=== PATIENT | female | born 1965 | race Caucasian/White ===

== ENCOUNTER 2020-03-14 19:13 | Emergency (ER) | payer BC, SELFPAY ==
--- NOTE | ~2020-03-14 | CT_ITS ---
EXAMINATION: CT abdomen pelvis w con EXAM DATE: 03/14/2020 21:02 INDICATION: Abdominal pain, hematuria, mesh infection. Kidney stones. Left flank pain. TECHNIQUE: Spiral CT of the abdomen and pelvis was performed following intravenous injection of 100 m L Omnipaque 350. Axial, coronal and sagittal images were reviewed. The dose-length product (DLP) fo r this examination was 231.85 mGy-cm. The exposure was tailored according to patient size (auto mA e xposure control), and iterative reconstruction (ASIR) was used as additional dose reduction technique . There is no prior study for comparison. FINDINGS: Anterior abdominal wall mesh without adjacent fluid collection. There is nonspecific mild periportal edema. Pancreas, adrenal glands, spleen are unremarkable. Gallbladder is unremarkable. N o biliary obstruction. Portal and splenic veins are patent. Kidneys enhance symmetrically. There i s no hydronephrosis. There is bilateral nephrolithiasis, largest on the left measuring 8 mm. No urete ral stones. The uterus is not identified and has likely been surgically resected. The bladder is un remarkable. There is no retroperitoneal or pelvic lymphadenopathy. There is moderate scattered art eriosclerotic disease. Possible appendectomy. Partial colonic resection. The stomach and small bowel are unremarkable. Ther e is expected amount of colonic stool. No free intraperitoneal gas. The heart is normal in size. There are no pericardial or pleural effusions. Bibasilar subsegmental atelectasis. There are no os teoblastic or osteolytic lesions identified. IMPRESSION: 1. No acute intra-abdominal findings. 2. Mild nonspecific periportal edema. 3. Bilateral nephrolithiasis. Reviewed, dictated and finalized at location A.
[2020-03-14 19:24] VITALS: BP 114/90; PULSE 99; RESP 14; TEMP 36.3; O2SAT 99
--- NOTE | 2020-03-14 19:56 | ED.ABDPAIN ---
HPI - Abdominal Pain General Chief Complaint: Urogenital-Female Stated Complaint: hematuria/flank pain Time Seen by Provider: 03/14/20 19:45 History of Present Illness HPI narrative: Patient presents with left flank pain since last night. She has a history of kidney stones and last passed a stone a month ago. She does not have a urologist. She said the pain is 10 out of 10, and that she vomited this evening. She still has the nausea. 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 She shows some granulation tissue with scant discharge on the bandage. She says that is also 10 out of 10 pain. She tells us that her doctor says that scar tissue, she says but if you rub it it bleeds. She does not smoke cigarettes, drink alcohol, but she does do medical marijuana. She is trying to get off her nerve medication. She is allergic to several antidepressants. MD elicited complaint: abdominal pain and flank pain Pertinent past history: kidney stones and other (Abdominal wound graft) Onset (ago): day(s) Pain Consistency: constant Location: L flank Severity: severe Pain scale (0-10): 10 Migration to: no migration Exacerbating factors: nothing Relieving factors: nothing Context: confirms history of similar episodes Associated symptoms: nausea and vomiting Related Data Home Medications Medication Instructions Recorded Confirmed B Complex-Vitamin B12 03/14/20 Calcium 500 03/14/20 clonazepam BID 03/14/20 cyclobenzaprine mg 03/14/20 folic acid 03/14/20 trazodone 150 mg PO HS 03/14/20 03/14/20 Allergies Allergy/AdvReac Type Severity Reaction Status Date / Time bupropion [From Wellbutrin] AdvReac Other Verified 03/14/20 20:17 codeine AdvReac Anaphylaxis Verified 03/14/20 20:17 duloxetine [From Cymbalta] AdvReac Other Verified 03/14/20 20:17 Review of Systems Review of Systems: Narrative: CONSTITUTIONAL: Denies fever, chills, or sweats. EYES: Denies visual changes, redness, or discharge. ENT: Denies rhinorrhea, congestion, sore throat, or otalgia. CARDIOVASCULAR: Denies chest pain, palpitations, or edema. RESPIRATORY: Denies cough or dyspnea. GASTROINTESTINAL: She has abdominal pain, nausea, vomiting, but not diarrhea. GENITOURINARY: Denies dysuria or hematuria. SKIN: Denies rash or itching. MUSCULOSKELETAL: Denies back pain, joint pain, or myalgia. NEUROLOGIC: Denies headache, numbness, or weakness. PSYCHIATRIC: She has anxiety or depression. All systems reviewed & are unremarkable except as noted in HPI and below PMFSH Past Medical History Medical History Flank pain History of kidney stones Surgical History Surgical History (Updated 03/14/20 @ 20:00 by Libby Gutierrez MD) History of abdominal surgery Social History Social History (Updated 03/14/20 @ 20:00 by Libby Gutierrez MD) Alcohol intake: never Substance use: current Substance use type: marijuana Exam Narrative: Exam Narrative: GENERAL: Well-appearing, well-nourished, and in no acute distress. Isiah looking. HEAD: Normocephalic, atraumatic. EYES: PERRLA and EOMI. ENT: Nares clear, no rhinorrhea or epistaxis. Mucous membranes moist. NECK: Supple. CHEST: Clear to auscultation. No respiratory distress. HEART: Regular rate and rhythm. No murmur heard. Normal peripheral pulses. ABDOMEN: Soft, nontender, nondistended, normal active bowel sounds. Granulation tissue in the depths of her abdominal incision. No drainage or bleeding. EXTREMITIES: Normal range of motion. No edema. SKIN: Warm, dry, no rash. NEURO: No focal deficits. Alert and oriented x3. PSYCH: Normal mood and affect. Course Reevaluation(s) Reevaluation #1: Went into the room to talk to the patient [id number]. I told her that the CAT scan and the labs did not indicate her source of pain. I will refer her to a urologist for her kidney stones. 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 And she has a p
[2020-03-14] MEDS: SODIUM CHLORIDE 0.9% IV 1,000 ML 999 ML IV CONT (20:21)
[2020-03-14] MEDS: MORPHINE SULFATE 2 MG/ML INJ IV PUSH (20:33)
[2020-03-14] MEDS: ONDANSETRON INJ 4 MG/2 ML VIAL IV PUSH (20:33)
[2020-03-14 20:45] LABS: Lipase 31 U/L (23-300)
[2020-03-14 21:05] LABS: Estimated CRCL calculation 60 ml/min; Estimated Glomerular Filt Rate > 60
[2020-03-14 21:52] VITALS: BP 128/79; PULSE 99; RESP 16; TEMP 36.4; O2SAT 100
== END 2020-03-14 21:53 | disposition home or self-care (01) ==
PROVIDERS: Emergency Provider Emergency Medicine; PCP Family Medicine
DX: R10.9 Unspecified abdominal pain (principal); Z87.442 Personal history of urinary calculi; N20.0 Calculus of kidney
CPT/HCPCS: 36415; 74177; 83690; 96361; 96374; 96375; 99284; J2270; J2405; J7030; Q9967

== ENCOUNTER 2020-04-04 14:17 | Outpatient (CLI) | payer BC, SELFPAY ==
--- NOTE | ~2020-04-04 | CT_ITS ---
EXAMINATION: CT abdomen pelvis wo/w con DATE: 04/04/2020 15:13 INDICATION: Right ureteral stone. TECHNIQUE: Computed tomography (CT) of the abdomen and pelvis was performed without and with 130 cc O mnipaque 350 intravenous contrast. The dose-length product was 462.02 mGy-cm. Automated exposure cont rol and iterative reconstruction technique were employed. COMPARISON: CT dated 03/14/2020 FINDINGS: Lung bases are unremarkable. No significant pleural or pericardial effusion. Heart size is normal. There are multiple nonobstructing bilateral renal stones. No ureteral stones or significant hydroneph rosis. The uterus is surgically absent. There are surgical anastomotic changes of the sigmoid colon. No evidence for bowel obstruction. There is atherosclerosis of the aorta. Bladder is unremarkable. The liver, spleen, pancreas, adrenal glands are unremarkable. Gallbladder is contracted. No lymphaden opathy. There is suggestion of previous partial small bowel resection. No free air or free fluid. No osteolytic or osteoblastic lesions. IMPRESSION: 1. No acute abdominal abnormality. 2: Nonobstructing bilateral nephrolithiasis. Reviewed, dictated and finalized at location A.
== END 2020-04-04 14:18 | disposition home or self-care (01) ==
PROVIDERS: PCP Family Medicine; Visit Provider Urology
DX: N20.1 Calculus of ureter (principal); R31.0 Gross hematuria; N20.0 Calculus of kidney
CPT/HCPCS: 74178; Q9967

== ENCOUNTER → 2020-04-04 14:18 | Outpatient (CLI) | payer BC, SELFPAY ==
--- NOTE | ~2020-04-04 | XR_ITS ---
XR abdomen/kub 1V 04/04/2020 12:52 Indication: Right ureteral stone Procedure: KUB Comparison: CT dated 04/04/2020 Findings: There are multiple left renal stones, largest in the upper pole of the left kidney measurin g 11 mm. Bowel pattern nonobstructive. There are surgical changes in the left mid abdomen and pelvis. There are multiple calcifications in the left abdomen and pelvis which are shown to reside outside t he urinary tract on CT examination. No acute osseous abnormality. Impression: 1: Left nephrolithiasis. Reviewed, dictated and finalized at location A. Impression: 1: Left nephrolithiasis.
== END ==
PROVIDERS: PCP Family Medicine; Visit Provider Urology
DX: R31.0 Gross hematuria (principal); N20.0 Calculus of kidney
CPT/HCPCS: 74018

== ENCOUNTER 2020-06-10 14:10 | Outpatient (CLI) | payer BC, SELFPAY ==
[2020-06-10 15:21] LABS: Prothrombin Time 13.3 Seconds (11.1-14.7)
[2020-06-10 15:22] LABS: Partial Thromboplastin Time 27.4 SECONDS (22.3-36.8)
== END 2020-06-10 14:11 | disposition home or self-care (01) ==
LOC: ANHSURGERY 14:13
PROVIDERS: PCP Family Medicine; Visit Provider Urology
DX: Z87.442 Personal history of urinary calculi (principal); Z01.818 Encounter for other preprocedural examination
CPT/HCPCS: 36415; 85610; 85730

== ENCOUNTER 2020-06-15 01:24 | Outpatient (CLI) | payer BC, SELFPAY ==
[2020-06-15 22:35] LABS: SARS-CoV-2 RNA PCR Negative
== END 2020-06-15 01:25 | disposition home or self-care (01) ==
LOC: ANHCOVIDDT 01:25
PROVIDERS: PCP Family Medicine; Visit Provider Urology
DX: Z01.812 Encounter for preprocedural laboratory examination (principal); Z11.59 Encounter for screening for other viral diseases
CPT/HCPCS: 87635; C9803; U0003

== ENCOUNTER 2020-06-17 01:46 | Day surgery (SDC) | payer BC, SELFPAY ==
[2020-06-09 15:31] VITALS: BMI 19.8
--- NOTE | 2020-06-16 10:44 | WPDANESEPPF ---
Anes - Initial Pre Proc Eval Procedure: Operation Date: 06/17/20 08:30 Proposed Procedures p Left Renal Extracorporeal Shock Wave Lithotripsy - Corey Archibald MD s Cystoscopy Possible Left Stent - Corey Archibald MD Date/Time: 06/16/20 10:44 Surgeon: Corey Archibald MD Pre Op Diagnosis: Left Renal Stone Patient Data Age: 54 Gender: F Height: 1.65 m Weight: 53.98 kg Allergies Allergy/AdvReac Type Severity Reaction Status Date / Time adhesive tape Allergy Rash Verified 06/09/20 15:32 bupropion [From Wellbutrin] AdvReac ALTERED Verified 06/09/20 15:32 MENTAL STATUS codeine AdvReac Itching Verified 06/09/20 15:32 duloxetine [From Cymbalta] AdvReac ALTERED Verified 06/09/20 15:32 MENTAL STATUS Home Medications Medication Instructions Recorded Confirmed Type clonazepam 1 mg PO BID 03/14/20 06/09/20 History cyclobenzaprine 10 mg PO BID 03/14/20 06/09/20 History trazodone 150 mg PO HS PRN 03/14/20 06/09/20 History alendronate 70 mg PO WEEKLY 06/09/20 06/09/20 History aspirin 81 mg PO DAILY 06/09/20 06/09/20 History calcium carbonate-vitamin D3 1 tablet PO BID 06/09/20 06/09/20 History [Calcium 600 + D(3)] cyanocobalamin (vitamin B-12) 1,000 mcg PO DAILY 06/09/20 06/09/20 History [Vitamin B-12] dicyclomine 10 mg PO Q8H 06/09/20 06/09/20 History docusate sodium 100 mg PO DAILY 06/09/20 06/09/20 History ergocalciferol (vitamin D2) 1,250 mcg PO WEEKLY 06/09/20 06/09/20 History [Vitamin D2] folic acid 1 mg PO DAILY 06/09/20 06/09/20 History levocetirizine 5 mg PO DAILY 06/09/20 06/09/20 History ubrogepant [Ubrelvy] 100 mg PO DIRECTED PRN 06/09/20 06/09/20 History Patient hx anesthesia problems: none Family hx anesthesia problems: none PMFSH Past Medical History Medical History (Updated 06/16/20 @ 10:45 by Juan Jose Flores MD) Anxiety Endometriosis Flank pain History of kidney stones Osteoporosis Surgical History Surgical History (Updated 03/14/20 @ 20:00 by Libby Gutierrez MD) History of abdominal surgery Social History Social History (Updated 03/14/20 @ 20:00 by Libby Gutierrez MD) Smoking packs per day: 1.5 Smoking cigarettes per day: 30.0 Years smoked: 10 Smoking pack-years: 15.00 Smoking status: Former smoker Tobacco type: cigarettes and e-cigarettes/vaping Additional smoking assessment comments: QUIT CIGARETTES 10 YEARS AGO, QUIT VAPING 3 MONTHS AGO Alcohol intake: never Substance use: current Substance use type: marijuana Last use: DAILY Spiritual care concerns: No Anes - Eval Final PreProcedure Day of Procedure 06/16/20 10:44 Patient weight: normal Heart: regular rate and rhythm Lungs: clear to auscultation and normal air movement Airway: Mallampati scale class II Neurological: alert and oriented Last oral intake: >/= 8 hours ASA classification: II Emergent: no Anesthetic plan: proceed Anesthesia type and monitoring: general LMA and ETT Informed Consent: The patient's anesthetic plan and its attendant risks and benefits were discussed with the patient/family/POA. Questions were solicited and answers provided to the satisfaction of the patient/family/POA.
[2020-06-17] VITALS (10 sets, daily range): BP systolic 124–167; BP diastolic 70–97; PULSE 74–106; RESP 10–20; TEMP 36.2–36.7; O2SAT 100
--- NOTE | ~2020-06-17 | XR_ITS ---
EXAMINATION: XR abdomen/kub 1V INDICATION: Left-sided kidney stone TECHNIQUE: Supine views of the abdomen were obtained on 2 radiographs. COMPARISON: 04/04/2020 FINDINGS: Stones in the left kidney upper pole measure up to 1.4 cm. There are at least four stones i n the left kidney lower pole, the largest of which measures 7 mm. There is a 6 mm stone in the right kidney lower pole. A 3 mm stone projects in the right mid kidney. A calcification projecting in the e xpected location of the left mid ureter is demonstrated to represent an ovarian vein phlebolith on th e comparison CT. Surgical changes are noted in the left mid abdomen and pelvis. Multiple pelvic phleb oliths are noted. The bowel gas pattern is normal. The lung bases are clear. IMPRESSION: 1. Stable bilateral nephrolithiasis. Reviewed, dictated and finalized at location A. MECHANIST
--- NOTE | 2020-06-17 06:31 | WPDHPUPDATE1 ---
History and Physical Update Update Date/Time: 06/17/20 06:31 History and Physical has been reviewed, including an updated exam of the patient. There are NO changes in the patient's condition. Risks, benefits, and alternatives have been discussed and questions answered. Patient agrees to proceed with procedure.
[2020-06-17] MEDS: LACTATED RINGERS 1,000 ML 30 ML IV CONT (07:50)
[2020-06-17] MEDS: SCOPOLAMINE 1.5 MG PATCH TRANSDERM (07:55)
[2020-06-17] MEDS: ceFAZolin 2 GM/D5W 50 ML 2 GM/50 ML BAG IVPB (08:40)
--- NOTE | 2020-06-17 08:55 | PM.PROC ---
Procedure Note - Detailed Date of procedure: 06/17/20 Pre-op diagnosis: Left Renal Stone Post-op diagnosis: same Procedure performed: 1. Cysto., left stent placement. 2. Left ESWL Description of procedure: The patient was brought to the operative suite where she was placed in the frog-legged position on the Dornier lithotripter table. Flexible cystoscopy was undertaken with a 16F flexible cystoscopy. Her urethra and bladder neck were endoscopically normal. The bladder mucosa was normal and there was a single, orthotopic ureteral orifice bilaterally. A 0.035 glidewire was advanced into the left renal pelvis under fluoroscopy. A 4.8F J-J ureteral stent was positioned with the proximal coil in the renal pelvis and the distal coil in the bladder. The patient was then repositioned in the supine position and the focal point of the lithotriptor was placed at a 14mm left upper pole renal calculus. A total of 2500 shocks were delivered at a power setting of 4. There appeared to be good fragmentation of the stone. The patient tolerated the procedure well and was taken to the recovery room in good condition. Anesthesia: GLMA Surgeon: Corey Archibald MD Estimated blood loss (mL): 0 Drains: Yes (4.8F left ureteral stent) Packing: No Pathology: none sent Complications: No immediate complications Condition: stable Disposition: other
[2020-06-17] MEDS: ONDANSETRON INJ 4 MG/2 ML VIAL IV PUSH (10:07)
[2020-06-17] MEDS: fentaNYL CITRATE INJ (*CRX) 100 MCG/2 ML VIAL 25 MCG IV PUSH ×8 (10:08→11:08)
== END 2020-06-17 12:11 | disposition home or self-care (01) ==
PROVIDERS: PCP Family Medicine; Visit Provider Urology
PROC: (CPT 50590; principal; 2020-06-17 08:30)
PROC: (CPT 52352; 2020-06-17 08:30)
DX: N20.0 Calculus of kidney (principal); F41.9 Anxiety disorder, unspecified; M81.0 Age-related osteoporosis without current pathological fracture; Z87.891 Personal history of nicotine dependence; F12.90 Cannabis use, unspecified, uncomplicated
CPT/HCPCS: 52332; 50590; 74018; A9270; C1769; C2617; J0690; J2250; J2405; J3010; J7030; J7120

== ENCOUNTER 2020-06-30 12:31 | Outpatient (CLI) | payer BC, SELFPAY ==
--- NOTE | ~2020-06-30 | XR_ITS ---
EXAMINATION: XR abdomen/kub 1V EXAM DATE: 06/30/2020 12:46 INDICATION: Left ureteral stone. TECHNIQUE: Frontal projection of the upper abdomen, frontal projection lower abdomen/pelvis for inter pretation. Comparison is made to prior examination from 06/17/2020. FINDINGS: There is a left double-J ureteral stent in position. There are stone fragments along the m id to distal aspect of the ureteral stent, indicated. Multiple calyceal stone fragments. Right nephro lithiasis suspected. Several bowel anastomosis sites also noted. No organomegaly. Nonobstructive rosi l gas pattern. There are mild bony degenerative changes. IMPRESSION: 1. Left ureteral and calyceal stone fragments. 2. Right nephrolithiasis. Reviewed, dictated and finalized at location A. TER CARTOGRAPHIC
== END 2020-06-30 12:32 | disposition home or self-care (01) ==
PROVIDERS: PCP Family Medicine; Visit Provider Urology
DX: N20.2 Calculus of kidney with calculus of ureter (principal)
CPT/HCPCS: 74018

== ENCOUNTER 2020-07-11 13:15 | Outpatient (CLI) | payer BC, SELFPAY ==
--- NOTE | ~2020-07-11 | XR_ITS ---
XR abdomen/kub 1V 07/11/2020 13:37 Indication: Left kidney stone Procedure: KUB Comparison: Comparison to multiple prior studies sequentially, with oldest reviewed study dated 04/04. Findings: Bowel gas pattern is nonobstructive. There are multiple bilateral renal stones and left ure teral stones. Left ureteral stent in expected position. There are surgical changes in the abdomen and pelvis. Bowel pattern nonobstructive. No acute osseous abnormality. Impression: 1: Bilateral renal and left ureteral stones. Left internal ureteral stent in expected position. Reviewed, dictated and finalized at location B. CHEMIST Impression: 1: Bilateral renal and left ureteral stones. Left internal ureteral stent in ex pected position.
== END 2020-07-11 13:16 | disposition home or self-care (01) ==
PROVIDERS: PCP Family Medicine; Visit Provider Urology
DX: N20.0 Calculus of kidney (principal); N20.1 Calculus of ureter; Z96.0 Presence of urogenital implants
CPT/HCPCS: 74018

== ENCOUNTER 2020-09-12 23:54 | Emergency (ER) | payer BC, SELFPAY ==
[2020-09-12 23:56] VITALS: BP 121/84; PULSE 68; RESP 14; TEMP 37; O2SAT 98
[2020-09-13] MEDS: METOCLOPRAMIDE HCL INJ 10 MG/2 ML VIAL IV PUSH (00:49)
[2020-09-13] MEDS: diphenhydrAMINE HCl INJ 50 MG/ML VIAL 25 MG IV PUSH (00:49)
[2020-09-13] MEDS: SODIUM CHLORIDE 0.9% IV 1,000 ML 999 ML IV CONT (00:49)
[2020-09-13] MEDS: KETOROLAC 30 MG/ML VIAL (*BKC) IV PUSH (00:50)
[2020-09-13] MEDS: MORPHINE SULFATE (*CRX) 4 MG/ML INJ IV PUSH (02:08)
[2020-09-13 02:09] VITALS: BP 115/84; PULSE 82; RESP 18; O2SAT 100
--- NOTE | 2020-09-13 03:22 | ED.GENADULT ---
HPI - General Adult General Chief complaint: Back Pain/Injury Stated complaint: lower back pain Time Seen by Provider: 09/13/20 00:06 History of Present Illness HPI narrative: Patient is a 54-year-old female who presents ER with low back pain and migraine. Reports migraines been ongoing for couple of days. Is taking home medications without relief. No change in vision or hearing. No fevers or chills or sweats. Does have some mild nausea without vomiting. Patient also developed some low back pain starting earlier today that radiates around into her groin. She also has pain over her right hip and her pain increases with movement of her right hip. No known trauma recently with exception of bumping into a wall about a week ago. [id number] pain medications have not helped her. Patient also reports some numbness going down her right leg. Related Data Home Medications Medication Instructions Recorded Confirmed clonazepam 1 mg PO BID 03/14/20 06/17/20 cyclobenzaprine 10 mg PO BID 03/14/20 06/17/20 trazodone 150 mg PO HS PRN 03/14/20 06/17/20 alendronate 70 mg PO WEEKLY 06/09/20 06/17/20 aspirin 81 mg PO DAILY 06/09/20 06/17/20 calcium carbonate-vitamin D3 1 tablet PO BID 06/09/20 06/17/20 [Calcium 600 + D(3)] cyanocobalamin (vitamin B-12) 1,000 mcg PO DAILY 06/09/20 06/17/20 [Vitamin B-12] dicyclomine 10 mg PO Q8H 06/09/20 06/17/20 docusate sodium 100 mg PO DAILY 06/09/20 06/17/20 ergocalciferol (vitamin D2) 1,250 mcg PO WEEKLY 06/09/20 06/17/20 [Vitamin D2] folic acid 1 mg PO DAILY 06/09/20 06/17/20 levocetirizine 5 mg PO DAILY 06/09/20 06/17/20 ubrogepant [Ubrelvy] 100 mg PO DIRECTED PRN 06/09/20 06/17/20 Allergies Allergy/AdvReac Type Severity Reaction Status Date / Time adhesive tape Allergy Rash Verified 06/17/20 07:56 bupropion [From Wellbutrin] AdvReac ALTERED Verified 06/17/20 07:56 MENTAL STATUS codeine AdvReac Itching Verified 06/17/20 07:56 duloxetine [From Cymbalta] AdvReac ALTERED Verified 06/17/20 07:56 MENTAL STATUS Review of Systems Review of Systems: All systems reviewed & are unremarkable except as noted in HPI and below Constitutional: Constitutional: Denies chills, Denies fever(s) and Denies weakness ENT: Denies nasal congestion and Denies sore throat Musculoskeletal: Musculoskeletal: Reports back pain, Denies arthralgias, Denies joint swelling and Denies muscle cramps Neurologic: Denies dizziness, Reports headache(s), Denies focal weakness and Reports numbness PMFSH Past Medical History Medical History (Updated 09/13/20 @ 03:30 by Mehdi Forte MD) Anxiety Endometriosis Flank pain History of kidney stones Osteoporosis Surgical History Surgical History (Updated 03/14/20 @ 20:00 by Libby Gutierrez MD) History of abdominal surgery Social History Social History (Updated 03/14/20 @ 20:00 by Libby Gutierrez MD) Smoking packs per day: 1.5 Smoking cigarettes per day: 30.0 Years smoked: 10 Smoking pack-years: 15.00 Smoking status: Former smoker Tobacco type: cigarettes and e-cigarettes/vaping Additional smoking assessment comments: QUIT CIGARETTES 10 YEARS AGO, QUIT VAPING 3 MONTHS AGO Alcohol intake: never Substance use: current Substance use type: marijuana Last use: DAILY Spiritual care concerns: No Exam Narrative: Exam Narrative: GENERAL: Well-appearing, well-nourished, and in no acute distress. HEAD: Normocephalic, atraumatic. CHEST: Clear to auscultation. No respiratory distress. HEART: Regular rate and rhythm. Normal peripheral pulses. ABDOMEN: Soft, nontender, nondistended. Surgical scarring. Back: TTP right paraspinal musculature lumbar region w/o midline tendernss. EXTREMITIES: Limited range of motion right hip due to pain. No edema. TTP over right greater trochanter RLE. SKIN: Warm, dry, no rash. NEURO: Alert and oriented x3. Course Course Emergency Course: Patient's headache improved with Silvia
[2020-09-13 04:09] VITALS: BP 125/79; PULSE 79; RESP 16; O2SAT 100
== END 2020-09-13 04:10 | disposition home or self-care (01) ==
PROVIDERS: Emergency Provider Emergency Medicine; PCP Family Medicine
DX: M54.41 Lumbago with sciatica, right side (principal); M25.551 Pain in right hip; R51.9 Headache, unspecified; N80.9 Endometriosis, unspecified; F41.9 Anxiety disorder, unspecified; M81.0 Age-related osteoporosis without current pathological fracture; Z87.891 Personal history of nicotine dependence; Z79.82 Long term (current) use of aspirin
CPT/HCPCS: 96361; 96374; 96375; 99284; J1200; J1885; J2270; J2765; J7030

== ENCOUNTER 2020-10-25 15:20 | Outpatient (CLI) | payer BC, SELFPAY ==
--- NOTE | ~2020-10-25 | XR_ITS ---
EXAMINATION: XR abdomen/kub 1V EXAM DATE: 10/25/2020 15:37 INDICATION: Right-sided flank pain, low back pain. History kidney stones. TECHNIQUE: Frontal projection of the upper abdomen, frontal projection lower abdomen/pelvis for inter pretation. Comparison is made to prior examination from 07/11/2020. FINDINGS: Bilateral kidney stones identified up to about 8 mm on the right and about 5 mm on the lef t. There is a new appearing approximately 3 mm round density projecting over the right sacral ala not definitely present on the previous x-ray. Can't exclude ureteral stone given symptoms provided. Thes e findings have been indicated, marked on the examination for review, clinical correlation. Previous ly seen left ureteral stent has been removed. Nonobstructive bowel gas pattern. Multiple bowel anastomosis sites identified. Lung bases unremarkabl e. There are mild bony degenerative changes. Calcifications in the pelvis are believed to be phleboli ths. IMPRESSION: 1. New small calcific density overlying right sacral ala, can't exclude ureteral stone. 2. Bilateral nephrolithiasis. Reviewed, dictated and finalized at location A. IMPRESSION: 1. New small calcific density overlying right sacral ala, can't exclude ureter al stone. 2. Bilateral nephrolithiasis.
== END 2020-10-25 15:21 | disposition home or self-care (01) ==
PROVIDERS: PCP Family Medicine; Visit Provider Nurse Practitioner Adult Health
DX: R10.9 Unspecified abdominal pain (principal); N20.0 Calculus of kidney
CPT/HCPCS: 74018

== ENCOUNTER → 2020-10-26 10:37 | Outpatient (CLI) | payer BC, SELFPAY ==
--- NOTE | ~2020-10-26 | CT_ITS ---
EXAMINATION: CT abdomen pelvis wo con DATE: 10/26/2020 11:02 INDICATION: Bilateral kidney stones. TECHNIQUE: Computed tomography (CT) of the abdomen and pelvis was performed without intravenous contr ast. Automated exposure control and iterative reconstruction technique were employed. The dose-length product was 177.98 mGy-cm. COMPARISON: CT abdomen and pelvis 04/04/2020 FINDINGS: The visualized portions of the lung bases demonstrate mild atelectasis. No pleural effusion . The heart size is normal. No pericardial effusion. The liver, gallbladder, spleen, pancreas, and ad renal glands are normal. There are 2 stones in the right kidney with the larger measuring 6 mm. There are 6 stones in left kidney measuring up to 6 mm. There are no dilated loops of bowel. There are kylah gical changes of the bowel. There are no pathologically enlarged lymph nodes. There is no free intrap eritoneal fluid. There is gas in the bladder lumen, likely from recent instrumentation. There is mild lumbar spondylosis. IMPRESSION: 1. Bilateral nonobstructing kidney stones. Reviewed, dictated and finalized at location A.
== END ==
PROVIDERS: PCP Family Medicine; Visit Provider Nurse Practitioner Family
DX: N20.0 Calculus of kidney (principal)
CPT/HCPCS: 74176

== ENCOUNTER 2020-10-31 13:45 | Outpatient (CLI) | payer BC, SELFPAY ==
[2020-10-31 14:33] LABS: INR 0.9; Prothrombin Time 13.1 Seconds (11.1-14.7)
== END 2020-10-31 13:46 | disposition home or self-care (01) ==
LOC: ANHSURGERY 13:48
PROVIDERS: PCP Family Medicine; Visit Provider Urology
DX: Z01.818 Encounter for other preprocedural examination (principal); N20.0 Calculus of kidney
CPT/HCPCS: 36415; 85610; 85730; 87086

== ENCOUNTER → 2020-11-01 03:00 | Outpatient (CLI) | payer BC, SELFPAY ==
[2020-11-01 18:08] LABS: SARS-CoV-2 RNA PCR Negative
== END ==
PROVIDERS: PCP Family Medicine; Visit Provider Urology
DX: Z01.812 Encounter for preprocedural laboratory examination (principal); Z20.822 Contact with and (suspected) exposure to COVID-19
CPT/HCPCS: C9803; U0003; U0005

== ENCOUNTER 2020-11-04 01:22 | Day surgery (SDC) | payer BC, SELFPAY ==
[2020-10-28 09:34] VITALS: BMI 18.6
--- NOTE | 2020-11-03 10:05 | WPDANESEPPF ---
Anes - Initial Pre Proc Eval Procedure: Operation Date: 11/04/20 11:30 Proposed Procedures p Left Extracorporeal Shock Wave Lithotripsy - Corey Archibald MD Date/Time: 11/03/20 10:05 Surgeon: Corey Archibald MD Pre Op Diagnosis: bilat kidney stones, acute flank pain Patient Data Age: 54 Gender: F Height: 1.64 m Weight: 50 kg Allergies Allergy/AdvReac Type Severity Reaction Status Date / Time adhesive tape Allergy Rash Verified 10/28/20 09:32 bupropion [From Wellbutrin] AdvReac ALTERED Verified 10/28/20 09:32 MENTAL STATUS codeine AdvReac Itching Verified 10/28/20 09:32 diphenhydramine AdvReac Jittery Verified 10/28/20 09:32 [From Benadryl] duloxetine [From Cymbalta] AdvReac ALTERED Verified 10/28/20 09:32 MENTAL STATUS gabapentin AdvReac Confusion Verified 10/28/20 09:32 sertraline [From Zoloft] AdvReac Confusion Verified 10/28/20 09:32 Home Medications Medication Instructions Recorded Confirmed Type clonazepam 1 mg PO BID 03/14/20 10/28/20 History trazodone 150 mg PO HS PRN 03/14/20 10/28/20 History alendronate 70 mg PO WEEKLY 06/09/20 10/28/20 History aspirin 81 mg PO DAILY 06/09/20 10/28/20 History calcium carbonate-vitamin D3 1 tablet PO BID 06/09/20 10/28/20 History [Calcium 600 + D(3)] cyanocobalamin (vitamin B-12) 1,000 mcg PO DAILY 06/09/20 10/28/20 History [Vitamin B-12] dicyclomine 10 mg PO Q8H 06/09/20 10/28/20 History docusate sodium 100 mg PO DAILY 06/09/20 10/28/20 History ergocalciferol (vitamin D2) 1,250 mcg PO WEEKLY 06/09/20 10/28/20 History [Vitamin D2] folic acid 1 mg PO DAILY 06/09/20 10/28/20 History levocetirizine 5 mg PO DAILY 06/09/20 10/28/20 History ubrogepant [Ubrelvy] 100 mg PO DIRECTED PRN 06/09/20 10/28/20 History cyclobenzaprine 10 mg PO TID 10/28/20 10/28/20 History meloxicam 7.5 mg PO BID 10/28/20 10/28/20 History ondansetron HCl [Zofran] 4 mg PO Q8H PRN 10/28/20 10/28/20 History sulfamethoxazole-trimethoprim 1 tablet PO BID 10/28/20 10/28/20 History sumatriptan succinate [Imitrex] 50 mg PO ONCE PRN 10/28/20 10/28/20 History venlafaxine 150 mg PO BID 10/28/20 10/28/20 History Patient hx anesthesia problems: post op nausea/vomiting Family hx anesthesia problems: none PMFSH Past Medical History Medical History (Updated 11/03/20 @ 10:06 by Jay Huber DO) Anxiety Endometriosis Flank pain History of kidney stones History of MRSA infection Migraine Osteoporosis PONV (postoperative nausea and vomiting) Surgical History Surgical History (Updated 11/03/20 @ 10:06 by Jay Huber DO) History of abdominal surgery History of hysterectomy Social History Social History (Updated 03/14/20 @ 20:00 by Libby Gutierrez MD) Smoking packs per day: 1.5 Smoking cigarettes per day: 30.0 Years smoked: 12 Smoking pack-years: 18.00 Smoking status: Former smoker Tobacco type: cigarettes Additional smoking assessment comments: QUIT CIGARETTES 10 YEARS AGO, QUIT VAPING 3 MONTHS AGO Alcohol intake: never Substance use: current Substance use type: marijuana Other substance usage details: VAPE 2-3 TIMES/DAY Last use: 10/27/20 Living arrangements: with family Spiritual care concerns: No Anes - Eval Final PreProcedure Day of Procedure 11/03/20 10:05 Patient weight: thin Heart: regular rate and rhythm Lungs: clear to auscultation and normal air movement Airway: Mallampati scale class II Neurological: alert and oriented Last oral intake: >/= 8 hours ASA classification: III Emergent: no Anesthetic plan: proceed Anesthesia type and monitoring: general LMA and standard monitoring Informed Consent: The patient's anesthetic plan and its attendant risks and benefits were discussed with the patient/family/POA. Questions were solicited and answers provided to the satisfaction of the patient/family/POA.
[2020-11-04] VITALS (7 sets, daily range): BP systolic 108–147; BP diastolic 58–75; PULSE 85–98; RESP 16–25; TEMP 36.4–36.8; O2SAT 100
--- NOTE | ~2020-11-04 | XR_ITS ---
XR abdomen/kub 1V 11/04/2020 09:38 Indication: Preop lithotripsy Procedure: KUB Comparison: Comparison to multiple prior studies sequentially, with oldest reviewed study dated 01/2020. Findings: There are bilateral renal stones which appear unchanged from prior study. There is a left-s ided calcification of the L4 level, possibly ureteral stone. There are multiple pelvic phleboliths wh ich do not appear significantly changed. Bowel gas pattern nonobstructive. No acute osseous abnormali ty. There are postsurgical changes of the pelvis. Impression: 1: Bilateral renal and possible left mid ureteral stones. Reviewed, dictated and finalized at location [facility]. Impression: 1: Bilateral renal and possible left mid ureteral stones.
--- NOTE | 2020-11-04 06:35 | WPDHPUPDATE1 ---
History and Physical Update Update Date/Time: 11/04/20 06:35 History and Physical has been reviewed, including an updated exam of the patient. There are NO changes in the patient's condition. Risks, benefits, and alternatives have been discussed and questions answered. Patient agrees to proceed with procedure.
[2020-11-04] MEDS: SCOPOLAMINE 1.5 MG PATCH TRANSDERM (10:32)
[2020-11-04] MEDS: LACTATED RINGERS 1,000 ML 30 ML IV CONT (11:02)
[2020-11-04] MEDS: FAMOTIDINE 20 MG/2 ML VIAL IV PUSH (11:05)
[2020-11-04] MEDS: MIDAZOLAM HCL (*CRX) 2 MG/2 ML VIAL IV PUSH (11:15)
[2020-11-04] MEDS: ceFAZolin 2 GM/D5W 50 ML 2 GM/50 ML BAG IVPB (11:37)
--- NOTE | 2020-11-04 12:09 | PM.PROC ---
Procedure Note - Detailed Date of procedure: 11/04/20 Pre-op diagnosis: bilat kidney stones, acute flank pain Post-op diagnosis: same Procedure performed: Left ESWL Description of procedure: The patient was brought to the operative suite where she was placed in the supine position on the Dornier lithotripsy table. She has 2 calculi visible in the left kidney, each in the mid-lower pole and measuring 4-5mm. A total of 2500 shocks were delivered at a power setting of 4 - splitting the shocks between the 2 stones. There appeared to be good fragmentation of the stone. The patient tolerated the procedure well and was taken to the recovery room in good condition. Anesthesia: GLMA Surgeon: Corey Archibald MD Estimated blood loss (mL): 0 Drains: No Packing: No Pathology: none sent Complications: No immediate complications Condition: stable Disposition: PACU
--- NOTE | 2020-11-04 13:00 | SUR.PHASEI ---
1300- pt stated she can take oxycodone, has had it after surgeries in the past. has trouble taking tylenol 3 with codeine.
[2020-11-04] MEDS: oxyCODONE HCL (*CRX) 5 MG TAB IR PO (13:27)
== END 2020-11-04 13:58 | disposition home or self-care (01) ==
PROVIDERS: PCP Family Medicine; Visit Provider Urology
PROC: (CPT 50590; principal; 2020-11-04 11:30)
DX: N20.0 Calculus of kidney (principal); M81.0 Age-related osteoporosis without current pathological fracture; F41.9 Anxiety disorder, unspecified; Z79.82 Long term (current) use of aspirin; Z87.891 Personal history of nicotine dependence; F12.90 Cannabis use, unspecified, uncomplicated
CPT/HCPCS: 50590; 36415; 74018; 85610; 85730; 87086; A9270; C9803; J0690; J2250; J3010; J7120; U0003; U0005

== ENCOUNTER 2020-11-23 14:36 | Outpatient (CLI) | payer BC, SELFPAY ==
[2020-11-23 15:44] LABS: INR 0.9; Prothrombin Time 13.2 Seconds (11.1-14.7)
[2020-11-23 15:45] LABS: Partial Thromboplastin Time 29.5 SECONDS (22.3-36.8)
== END 2020-11-23 14:37 | disposition home or self-care (01) ==
PROVIDERS: PCP Family Medicine; Visit Provider Urology
DX: Z01.818 Encounter for other preprocedural examination (principal); N20.0 Calculus of kidney
CPT/HCPCS: 36415; 85610; 85730; 87086

== ENCOUNTER → 2020-11-29 03:25 | Outpatient (CLI) | payer BC, SELFPAY ==
[2020-11-29 20:30] LABS: SARS-CoV-2 RNA PCR Negative
== END ==
PROVIDERS: PCP Family Medicine; Visit Provider Urology
DX: Z01.812 Encounter for preprocedural laboratory examination (principal); Z20.822 Contact with and (suspected) exposure to COVID-19
CPT/HCPCS: C9803; U0003; U0005

== ENCOUNTER 2020-12-02 01:38 | Day surgery (SDC) | payer BC, SELFPAY ==
[2020-11-16 14:02] VITALS: BMI 18.6
--- NOTE | 2020-11-24 07:32 | PM.HPGS ---
History of Present Illness History of Present Illness Consent: Risks, benefits, and alternatives have been discussed and questions answered. Patient agrees to proceed with procedure. Chief complaint: bilat kidney stones, flank pain Narrative: Madison Weinberg is a 54 year old female with a history of recurring urolithiasis. She has recently developed an atypical bilateral flank and abdominal pain. Imaging both with CT scans and KUB is fails to show any ureteral stones but she does have bilateral small nonobstructing renal stones. After discussion of options including observation and intervention with ESWL she has elected for the latter. She has undergone recent left ESWL without difficulty. She presents today for right ESWL. She is aware of the risk including, but not limited to, persistent stone, recurrence stone, injury your kidney with perinephric hematoma. Review of Systems Cardiovascular: Cardiovascular: Denies chest pain, Denies lightheadedness, Denies palpitations and Denies dyspnea Respiratory: Respiratory: Denies dyspnea Gastrointestinal: Gastrointestinal: Denies diarrhea, Denies nausea and Denies vomiting Genitourinary: Genitourinary: Denies hematuria and Denies dysuria Endocrine: Endocrine: Denies palpitations PMFSH Past Medical History Medical History Anxiety Endometriosis Flank pain History of kidney stones History of MRSA infection Migraine Osteoporosis PONV (postoperative nausea and vomiting) Surgical History Surgical History History of abdominal surgery History of hysterectomy Social History Social History Smoking packs per day: 1.5 Smoking cigarettes per day: 30.0 Years smoked: 12 Smoking pack-years: 18.00 Smoking status: Former smoker Tobacco type: cigarettes and e-cigarettes/vaping Additional smoking assessment comments: QUIT CIGARETTES 10 YEARS AGO, QUIT VAPING 3 MONTHS AGO Alcohol intake: never Substance use: current Substance use type: marijuana Other substance usage details: VAPE 2-3 TIMES/DAY Last use: 11/15/20 Spiritual care concerns: No Meds Home Medications and Allergies Home Medications Medication Instructions Recorded Confirmed Type clonazepam 1 mg PO BID 03/14/20 11/16/20 History trazodone 150 mg PO HS PRN 03/14/20 11/16/20 History Ubrelvy 100 mg PO DIRECTED PRN 06/09/20 11/16/20 History alendronate 70 mg PO WEEKLY 06/09/20 11/16/20 History aspirin 81 mg PO DAILY 06/09/20 11/16/20 History calcium carbonate-vitamin D3 1 tablet PO BID 06/09/20 11/16/20 History [Calcium 600 + D(3)] cyanocobalamin (vitamin B-12) 1,000 mcg PO DAILY 06/09/20 11/16/20 History [Vitamin B-12] dicyclomine 10 mg PO Q8H 06/09/20 11/16/20 History docusate sodium 100 mg PO DAILY 06/09/20 11/16/20 History ergocalciferol (vitamin D2) 1,250 mcg PO WEEKLY 06/09/20 11/16/20 History [Vitamin D2] folic acid 1 mg PO DAILY 06/09/20 11/16/20 History levocetirizine 5 mg PO DAILY 06/09/20 11/16/20 History cyclobenzaprine 10 mg PO TID 10/28/20 11/16/20 History meloxicam 7.5 mg PO BID 10/28/20 11/16/20 History ondansetron HCl [Zofran] 4 mg PO Q8H PRN 10/28/20 11/16/20 History sulfamethoxazole-trimethoprim 1 tablet PO BID 10/28/20 11/16/20 History sumatriptan succinate [Imitrex] 50 mg PO ONCE PRN 10/28/20 11/16/20 History venlafaxine 150 mg PO BID 10/28/20 11/16/20 History hydrocodone-acetaminophen 1 - 2 tablet PO Q6H PRN #30 tablet 11/04/20 11/16/20 Rx Allergies Allergy/AdvReac Type Severity Reaction Status Date / Time adhesive tape Allergy Rash Verified 11/16/20 13:52 bupropion [From Wellbutrin] AdvReac ALTERED Verified 11/16/20 13:52 MENTAL STATUS codeine AdvReac Itching Verified 11/16/20 13:52 diphenhydramine AdvReac Jittery Verified 11/16/20 13:52 [From Benadryl] duloxetine [From Cymbalt
--- NOTE | 2020-12-01 10:05 | WPDANESEPPF ---
Anes - Initial Pre Proc Eval Procedure: Operation Date: 12/02/20 07:30 Proposed Procedures p Right Extracorporeal Shock Wave Lithotripsy - Corey Archibald MD Date/Time: 12/01/20 10:05 Surgeon: Corey Archibald MD Pre Op Diagnosis: bilat kidney stones, flank pain Patient Data Age: 54 Gender: F Height: 1.64 m Weight: 50 kg Allergies Allergy/AdvReac Type Severity Reaction Status Date / Time adhesive tape Allergy Rash Verified 11/16/20 13:52 bupropion [From Wellbutrin] AdvReac ALTERED Verified 11/16/20 13:52 MENTAL STATUS codeine AdvReac Itching Verified 11/16/20 13:52 diphenhydramine AdvReac Jittery Verified 11/16/20 13:52 [From Benadryl] duloxetine [From Cymbalta] AdvReac ALTERED Verified 11/16/20 13:52 MENTAL STATUS gabapentin AdvReac Confusion Verified 11/16/20 13:52 sertraline [From Zoloft] AdvReac Confusion Verified 11/16/20 13:52 Home Medications Medication Instructions Recorded Confirmed Type clonazepam 1 mg PO BID 03/14/20 11/16/20 History trazodone 150 mg PO HS PRN 03/14/20 11/16/20 History Ubrelvy 100 mg PO DIRECTED PRN 06/09/20 11/16/20 History alendronate 70 mg PO WEEKLY 06/09/20 11/16/20 History aspirin 81 mg PO DAILY 06/09/20 11/16/20 History calcium carbonate-vitamin D3 1 tablet PO BID 06/09/20 11/16/20 History [Calcium 600 + D(3)] cyanocobalamin (vitamin B-12) 1,000 mcg PO DAILY 06/09/20 11/16/20 History [Vitamin B-12] dicyclomine 10 mg PO Q8H 06/09/20 11/16/20 History docusate sodium 100 mg PO DAILY 06/09/20 11/16/20 History ergocalciferol (vitamin D2) 1,250 mcg PO WEEKLY 06/09/20 11/16/20 History [Vitamin D2] folic acid 1 mg PO DAILY 06/09/20 11/16/20 History levocetirizine 5 mg PO DAILY 06/09/20 11/16/20 History cyclobenzaprine 10 mg PO TID 10/28/20 11/16/20 History meloxicam 7.5 mg PO BID 10/28/20 11/16/20 History ondansetron HCl [Zofran] 4 mg PO Q8H PRN 10/28/20 11/16/20 History sulfamethoxazole-trimethoprim 1 tablet PO BID 10/28/20 11/16/20 History sumatriptan succinate [Imitrex] 50 mg PO ONCE PRN 10/28/20 11/16/20 History venlafaxine 150 mg PO BID 10/28/20 11/16/20 History hydrocodone-acetaminophen 1 - 2 tablet PO Q6H PRN #30 tablet 11/04/20 11/16/20 Rx Patient hx anesthesia problems: none Family hx anesthesia problems: none PMFSH Past Medical History Medical History Anxiety Endometriosis Flank pain History of kidney stones History of MRSA infection Migraine Osteoporosis PONV (postoperative nausea and vomiting) Surgical History Surgical History History of abdominal surgery History of hysterectomy Social History Social History Smoking packs per day: 1.5 Smoking cigarettes per day: 30.0 Years smoked: 12 Smoking pack-years: 18.00 Smoking status: Former smoker Tobacco type: cigarettes and e-cigarettes/vaping Additional smoking assessment comments: QUIT CIGARETTES 10 YEARS AGO, QUIT VAPING 3 MONTHS AGO Alcohol intake: never Substance use: current Substance use type: marijuana Other substance usage details: VAPE 2-3 TIMES/DAY Last use: 11/15/20 Living arrangements: with family Spiritual care concerns: No Anes - Eval Final PreProcedure Day of Procedure 12/01/20 10:05 Patient weight: thin Heart: regular rate and rhythm Lungs: clear to auscultation and normal air movement Airway: Mallampati scale class II Neurological: alert and oriented Last oral intake: >/= 8 hours ASA classification: II Emergent: no Anesthetic plan: proceed Anesthesia type and monitoring: general LMA Informed Consent: The patient's anesthetic plan and its attendant risks and benefits were discussed with the patient/family/POA. Questions were solicited and answers provided to the satisfaction of the patient/family/POA.
[2020-12-02] VITALS (9 sets, daily range): BP systolic 120–151; BP diastolic 62–94; PULSE 88–100; RESP 14–18; TEMP 36.1–36.5; O2SAT 100
--- NOTE | ~2020-12-02 | XR_ITS ---
XR abdomen/kub 1V DATE: 12/02/2020 06:02 INDICATION: Lithotripsy TECHNIQUE: 2 AP views COMPARISON: 10/29/2020 KUB 10/26/[address] abdomen pelvis FINDINGS: Stable bilateral nonobstructive nephrolithiasis noted, not significantly changed since 10/26. Some calcifications overlying the approximate position of the left ureter were noted to be out side the ureter and not ureteral calcified calculi on 10/26/[address] abdomen pelvis. Associated as are intact. No visceromegaly. No evidence of bowel obstruction. IMPRESSION: Bilateral nephrolithiasis Reviewed, dictated and finalized at [facility]. Reviewed, dictated and finalized at location [facility]. IMPRESSION: Bilateral nephrolithiasis
[2020-12-02] MEDS: LACTATED RINGERS 1,000 ML 30 ML IV CONT ×2 (06:28→08:28)
[2020-12-02] MEDS: FAMOTIDINE 20 MG/2 ML VIAL IV PUSH (06:35)
[2020-12-02] MEDS: ONDANSETRON INJ 4 MG/2 ML VIAL IV PUSH (06:35)
--- NOTE | 2020-12-02 07:00 | WPDHPUPDATE1 ---
History and Physical Update Update Date/Time: 12/02/20 07:00 History and Physical has been reviewed, including an updated exam of the patient. There are NO changes in the patient's condition. Risks, benefits, and alternatives have been discussed and questions answered. Patient agrees to proceed with procedure.
[2020-12-02] MEDS: SCOPOLAMINE 1.5 MG PATCH TRANSDERM (07:06)
[2020-12-02] MEDS: ceFAZolin 2 GM/D5W 50 ML 2 GM/50 ML BAG IVPB (07:15)
--- NOTE | 2020-12-02 07:23 | PM.PROC ---
Procedure Note - Detailed Date of procedure: 12/02/20 Pre-op diagnosis: bilat kidney stones, flank pain Post-op diagnosis: same Procedure performed: Right ESWL Description of procedure: The patient was brought to the operative suite where she was placed in the supine position on the Dornier lithotripsy table. The focal point of the lithotripter was placed at a 6mm calculus. A total of 2500 shocks were delivered at a power setting of 4. There appeared to be good fragmentation of the stone. The patient tolerated the procedure well and was taken to the recovery room in good condition. Anesthesia: GLMA Surgeon: Corey Archibald MD Drains: No Packing: No Pathology: none sent Complications: No immediate complications Condition: stable Disposition: PACU
[2020-12-02] MEDS: oxyCODONE HCL (*CRX) 5 MG TAB IR PO (09:06)
== END 2020-12-02 10:05 | disposition home or self-care (01) ==
PROVIDERS: PCP Family Medicine; Visit Provider Urology
PROC: (CPT 50590; principal; 2020-12-02 07:30)
DX: N20.0 Calculus of kidney (principal); M81.0 Age-related osteoporosis without current pathological fracture; F41.9 Anxiety disorder, unspecified; Z79.891 Long term (current) use of opiate analgesic; Z87.891 Personal history of nicotine dependence; F12.90 Cannabis use, unspecified, uncomplicated
CPT/HCPCS: 50590; 36415; 74018; 85610; 85730; 87086; A9270; C9803; J0690; J1100; J2250; J2405; J2704; J7120; U0003; U0005

== ENCOUNTER 2020-12-16 22:27 | Emergency (ER) | payer BC, SELFPAY ==
[2020-12-16 22:33] VITALS: BP 127/88; PULSE 87; RESP 14; TEMP 36.7; O2SAT 97
--- NOTE | 2020-12-16 23:24 | ED.OVERDOSE ---
HPI - Overdose General Chief Complaint: Overdose Stated Complaint: possible od- up to 60 clonazepam Time Seen by Provider: 12/16/20 23:13 Source: patient and RN notes reviewed Mode of arrival: EMS Limitations: no limitations History of Present Illness HPI Narrative: This is a 55 year old female who presents for evaluation of possible overdose. She states she has been fighting with her for 3 days over his son. She states in order to get back at her he called 911 and told them she tried to overdose. She states she took 3 of her clonazepam before he called 911. She states she threw the rest in the toilet. She has pill bottle filled 12/10/20 that is empty and the count was 60. She denies being suicidal or homicidal. Related Data Home Medications Medication Instructions Recorded Confirmed clonazepam 1 mg PO BID 03/14/20 12/02/20 trazodone 150 mg PO HS PRN 03/14/20 12/02/20 Ubrelvy 100 mg PO DIRECTED PRN 06/09/20 12/02/20 alendronate 70 mg PO WEEKLY 06/09/20 12/02/20 aspirin 81 mg PO DAILY 06/09/20 12/02/20 calcium carbonate-vitamin D3 1 tablet PO BID 06/09/20 12/02/20 [Calcium 600 + D(3)] cyanocobalamin (vitamin B-12) 1,000 mcg PO DAILY 06/09/20 12/02/20 [Vitamin B-12] dicyclomine 10 mg PO Q8H 06/09/20 12/02/20 docusate sodium 100 mg PO DAILY 06/09/20 12/02/20 ergocalciferol (vitamin D2) 1,250 mcg PO WEEKLY 06/09/20 12/02/20 [Vitamin D2] folic acid 1 mg PO DAILY 06/09/20 12/02/20 levocetirizine 5 mg PO DAILY 06/09/20 12/02/20 cyclobenzaprine 10 mg PO TID 10/28/20 12/02/20 meloxicam 7.5 mg PO BID 10/28/20 12/02/20 ondansetron HCl [Zofran] 4 mg PO Q8H PRN 10/28/20 12/02/20 sulfamethoxazole-trimethoprim 1 tablet PO BID 10/28/20 12/02/20 sumatriptan succinate [Imitrex] 50 mg PO ONCE PRN 10/28/20 12/02/20 venlafaxine 150 mg PO BID 10/28/20 12/02/20 Allergies Allergy/AdvReac Type Severity Reaction Status Date / Time adhesive tape Allergy Rash Verified 12/02/20 07:11 bupropion [From Wellbutrin] AdvReac ALTERED Verified 12/02/20 07:11 MENTAL STATUS codeine AdvReac Itching Verified 12/02/20 07:11 diphenhydramine AdvReac Jittery Verified 12/02/20 07:11 [From Benadryl] duloxetine [From Cymbalta] AdvReac ALTERED Verified 12/02/20 07:11 MENTAL STATUS gabapentin AdvReac Confusion Verified 12/02/20 07:11 sertraline [From Zoloft] AdvReac Confusion Verified 12/02/20 07:11 Review of Systems Review of Systems: All systems reviewed & are unremarkable except as noted in HPI and below PMFSH Past Medical History Medical History Anxiety Endometriosis Flank pain History of kidney stones History of MRSA infection Migraine Osteoporosis PONV (postoperative nausea and vomiting) Surgical History Surgical History History of abdominal surgery History of hysterectomy Social History Social History Smoking packs per day: 1.5 Smoking cigarettes per day: 30.0 Years smoked: 12 Smoking pack-years: 18.00 Smoking status: Former smoker Tobacco type: cigarettes and e-cigarettes/vaping Additional smoking assessment comments: QUIT CIGARETTES 10 YEARS AGO, QUIT VAPING 3 MONTHS AGO Alcohol intake: never Substance use: current Substance use type: sedatives Other substance usage details: VAPE 2-3 TIMES/DAY Last use: 11/15/20 Spiritual care concerns: No Exam Const: General: no acute distress and alert Orientation/consciousness: patient oriented x3 Eyes: EOM: EOMs intact bilaterally Chest: Chest palpation & inspection: normal inspection of the chest Resp: Effort & Inspection: normal respiratory effort and no retractions Auscultation: clear to auscultation bilaterally Cardio: Rate: regular rate Rhythm: regular rhythm Heart sounds: no murmurs GI: GI Palp: Yes Soft to palpation, No Tenderness
[2020-12-16 23:53] LABS: Basophils Percent Auto 0.5 % (0.2-1.2); Eosinophils Absolute Auto 0.1 K/mm3 (0-0.3); Hematocrit 32.3 % (37.0-47.0); Hemoglobin 10.5 g/dL (12.0-15.0); Immature Granulocyte Absolute 0.01 K/mm3 (0.00-0.031); Immature Granulocyte Percent A 0.2 % (0-0.5); Lymphocytes Absolute Auto 2.09 K/mm3 (0.9-3.2); Lymphocytes Percent Auto 31.5 % (18.3-44.2); Mean Corpuscular HGB Conc 32.5 g/dl (32-36); Mean Corpuscular Hemoglobin 30.2 pg (26-34); Mean Corpuscular Volume 92.8 fl (80-100); Mean Platelet Volume 10.2 fl (7.4-10.4); Monocytes Absolute Auto 0.5 K/mm3 (0.1-0.6); Monocytes Percent Auto 7.7 % (2.6-8.5); Neutrophils Absolute Auto 3.9 K/mm3 (1.3-6.7); Neutrophils Percent Auto 58.1 % (45.5-73.1); Platelet Count Result 266 k/mm3 (150-375); Red Blood Count 3.48 M/mm3 (4.2-5.4); Red Cell Distribution Width 13.2 % (11.5-14.5); White Blood Count 6.6 K/mm3 (4.5-10.0)
[2020-12-17 00:02] LABS: Alanine Aminotransferase 28 U/L (4-35); Albumin Level 3.9 g/dL (3.5-5.1); Alkaline Phosphatase 72 U/L (38-126); Anion Gap 8 mmol/L (8-16); Aspartate Amino Transferase 34 U/L (14-36); Bilirubin,Total 0.2 mg/dL (0.2-1.3); Blood Urea Nitrogen 12 mg/dL (7-17); Calcium 9.3 mg/dL (8.4-10.2); Carbon Dioxide 25 mmol/L (22-30); Chloride 104 mmol/L (98-107); Estimated Glomerular Filt Rate > 60; Glucose 94 mg/dL (65-105); Potassium 3.4 mmol/L (3.4-5.0); Sodium 137 mmol/L (137-145)
[2020-12-17 00:07] LABS: Acetaminophen < 10 ug/mL (10-30); Ethanol < 10 mg/dL (<10); Salicylate < 1.0 mg/dL (2-20)
[2020-12-17 00:34] VITALS: BP 124/78; PULSE 81; RESP 18; O2SAT 96
== END 2020-12-17 00:36 | disposition left against medical advice (07) ==
LOC: ANHED 23:21
PROVIDERS: Emergency Provider General Practice; PCP Family Medicine
DX: F41.9 Anxiety disorder, unspecified (principal); Z87.440 Personal history of urinary (tract) infections; Z86.14 Personal history of Methicillin resistant Staphylococcus aureus infection; Z87.898 Personal history of other specified conditions; M81.0 Age-related osteoporosis without current pathological fracture; Z87.891 Personal history of nicotine dependence
CPT/HCPCS: 36415; 80053; 80307; 84443; 85025; 99283

== ENCOUNTER 2020-12-19 05:58 | Emergency (ER) | payer BC, SELFPAY ==
[2020-12-19 06:11] VITALS: BP 147/103; PULSE 95; RESP 20; TEMP 36.4; O2SAT 98
--- NOTE | 2020-12-19 06:28 | ED.PSYCH ---
HPI - Psych General Chief Complaint: Psychiatric Symptoms <Pau Alberto MD - Last Filed: 12/19/20 07:38> Stated Complaint: PSYCH EVAL <Pau Alberto MD - Last Filed: 12/19/20 07:38> Time Seen by Provider: 12/19/20 06:03 <Pau Alberto MD - Last Filed: 12/19/20 07:38> Source: patient and RN notes reviewed <Pau Alberto MD - Last Filed: 12/19/20 07:38> Mode of arrival: EMS <Pau Alberto MD - Last Filed: 12/19/20 07:38> Limitations: no limitations <Pau Alberto MD - Last Filed: 12/19/20 07:38> History of Present Illness HPI Narrative: This is a 55 year old female with history of anxiety who presents via EMS for psychiatric evaluation. Patient states she has been arguing with her for several hours. She sent him text messages making suicidal statements so he called the police. She admits to texting him she wishes that she would not wake up. She states she is not suicidal, and she was making those statements to make him made. Patient was seen in the ED 2 nights ago for a possible overdose. Patient at that time states she made her think she was overdosing on her clonazapem but she only took 3 . During that evaluation, patient had no clinical signs that she had actually taken 50 tabs of her clonazapem. Patient signed AMA and her took her home. She denies drinking alcohol or drug use. <Pau Alberto MD - Last Filed: 12/19/20 07:38> Related Data Home Medications: Home Medications Medication Instructions Recorded Confirmed clonazepam 1 mg PO BID 03/14/20 12/02/20 trazodone 150 mg PO HS PRN 03/14/20 12/02/20 Ubrelvy 100 mg PO DIRECTED PRN 06/09/20 12/02/20 alendronate 70 mg PO WEEKLY 06/09/20 12/02/20 aspirin 81 mg PO DAILY 06/09/20 12/02/20 calcium carbonate-vitamin D3 1 tablet PO BID 06/09/20 12/02/20 [Calcium 600 + D(3)] cyanocobalamin (vitamin B-12) 1,000 mcg PO DAILY 06/09/20 12/02/20 [Vitamin B-12] dicyclomine 10 mg PO Q8H 06/09/20 12/02/20 docusate sodium 100 mg PO DAILY 06/09/20 12/02/20 ergocalciferol (vitamin D2) 1,250 mcg PO WEEKLY 06/09/20 12/02/20 [Vitamin D2] folic acid 1 mg PO DAILY 06/09/20 12/02/20 levocetirizine 5 mg PO DAILY 06/09/20 12/02/20 cyclobenzaprine 10 mg PO TID 10/28/20 12/02/20 meloxicam 7.5 mg PO BID 10/28/20 12/02/20 ondansetron HCl [Zofran] 4 mg PO Q8H PRN 10/28/20 12/02/20 sulfamethoxazole-trimethoprim 1 tablet PO BID 10/28/20 12/02/20 sumatriptan succinate [Imitrex] 50 mg PO ONCE PRN 10/28/20 12/02/20 venlafaxine 150 mg PO BID 10/28/20 12/02/20 <Pau Alberto MD - Last Filed: 12/19/20 07:38> Allergies/Adverse Reactions: Allergies Allergy/AdvReac Type Severity Reaction Status Date / Time adhesive tape Allergy Rash Verified 12/19/20 06:40 bupropion [From Wellbutrin] AdvReac ALTERED Verified 12/19/20 06:40 MENTAL STATUS codeine AdvReac Itching Verified 12/19/20 06:40 diphenhydramine AdvReac Jittery Verified 12/19/20 06:40 [From Benadryl] duloxetine [From Cymbalta] AdvReac ALTERED Verified 12/19/20 06:40 MENTAL STATUS gabapentin AdvReac Confusion Verified 12/19/20 06:40 sertraline [From Zoloft] AdvReac Confusion Verified 12/19/20 06:40 <Pau Alberto MD - Last Filed: 12/19/20 07:38> Review of Systems Review of Systems: All systems reviewed & are unremarkable except as noted in HPI and below <Pau Alberto MD - Last Filed: 12/19/20 07:38> [facility] Past Medical History Medical History: Medical History Anxiety Endometriosis Flank pain History of kidney stones History of MRSA infection Migraine Osteoporosis PONV (postoperative nausea and vomiting) <Pau Alberto MD - Last Filed: 12/19/20 07:38> Surgical History Surgical History: Surgical History History of abdominal surgery History o
[2020-12-19 06:38] LABS: Basophils Absolute Auto 0.1 K/mm3 (0.0-0.1); Basophils Percent Auto 0.8 % (0.2-1.2); Eosinophils Absolute Auto 0.1 K/mm3 (0-0.3); Eosinophils Percent Auto 1.5 % (0-4.4); Hematocrit 36.6 % (37.0-47.0); Hemoglobin 12.1 g/dL (12.0-15.0); Immature Granulocyte Absolute 0.03 K/mm3 (0.00-0.031); Immature Granulocyte Percent A 0.4 % (0-0.5); Lymphocytes Absolute Auto 1.76 K/mm3 (0.9-3.2); Mean Corpuscular HGB Conc 33.1 g/dl (32-36); Mean Corpuscular Hemoglobin 30.3 pg (26-34); Mean Corpuscular Volume 91.7 fl (80-100); Mean Platelet Volume 9.2 fl (7.4-10.4); Monocytes Absolute Auto 0.5 K/mm3 (0.1-0.6); Neutrophils Absolute Auto 5.6 K/mm3 (1.3-6.7); Neutrophils Percent Auto 69.3 % (45.5-73.1); Platelet Count Result 366 k/mm3 (150-375); Red Blood Count 3.99 M/mm3 (4.2-5.4)
[2020-12-19 06:43] LABS: Add Urine Microscopic? YES; Appearance Urine Clear (Clear); Bilirubin Urine Negative (Negative); Blood Urine Negative (Negative); Color Urine Yellow (Yellow); Glucose Urine UA Negative (Negative); Ketones Urine Negative (Negative); Leukocyte Esterase Ur Trace LEU/UL (Negative); Mucus Urine Rare /lpf; Nitrate Urine Negative (Negative); Protein Urine Negative (Negative); RBC Urine 0-2 /hpf (0-2); Specific Grav Ur 1.008 (1.001-1.035); Squamous Epithelial Cell Urine Rare /hpf (Few); Urobilinogen Urine Negative mg/dL (<2.0)
[2020-12-19 06:45] LABS: Alanine Aminotransferase 27 U/L (4-35); Albumin Level 4.8 g/dL (3.5-5.1); Alkaline Phosphatase 114 U/L (38-126); Anion Gap 6 mmol/L (8-16); Aspartate Amino Transferase 38 U/L (14-36); Bilirubin,Total 0.3 mg/dL (0.2-1.3); Blood Urea Nitrogen 10 mg/dL (7-17); Calcium 9.7 mg/dL (8.4-10.2); Carbon Dioxide 32 mmol/L (22-30); Chloride 102 mmol/L (98-107); Estimated CRCL calculation 44 ml/min; Estimated Glomerular Filt Rate 58; Ethanol < 10 mg/dL (<10); Glucose 94 mg/dL (65-105); Potassium 3.5 mmol/L (3.4-5.0); Sodium 140 mmol/L (137-145)
[2020-12-19 06:56] LABS: Amphetamine Screen Urine Negative (Negative); Barbiturate Screen Urine Negative (Negative); Benzodiazepines Screen Urine Positive (Negative); Cannabinoid Screen Urine Positive (Negative); Cocaine Screen Urine Negative (Negative); Methadone Screen Urine Negative (Negative); Opiate Screen Urine Positive (Negative); Phencyclidine Screen Urine Negative (Negative)
--- NOTE | 2020-12-19 06:56 | PC.NURSE ---
[id number] Nishant from [facility] calls to inform that the PD officer that was at the patient's house is on his way to fill out and involuntary petition on the patient.
--- NOTE | 2020-12-19 07:03 | PC.NURSE ---
Meal tray ordered for pt at this time.
--- NOTE | 2020-12-19 08:00 | PC.NURSE ---
Pt requesting her home medications - states she takes oxycontin for her rib fractures and her kidney stone. She is requesting pain meds - informed [facility]
--- NOTE | 2020-12-19 08:44 | PC.NURSE ---
pt refuses breakfast stating that the food is not acceptable due to previous colon resection. pt prefers bland diet but does not want new tray ordered at this time. pt did not mention needing bland diet when meal order was placed. pt requests pain med for rib and flank pain. pt reports recent rib fx and lithotripsy
--- NOTE | 2020-12-19 08:58 | PC.NURSE ---
patient sister called to get update on patient status but due to the patient wanting to be listed as confidential, the sister was told there is no patient by that name in our emergency room at this time .
[2020-12-19] MEDS: ACETAMINOPHEN 325 MG TABLET 650 MG PO (09:00)
--- NOTE | 2020-12-19 09:00 | PC.NURSE ---
pt requesting hydrocodone for her pain - States the 2 Tylenol we gave her does not help with the pain.
--- NOTE | 2020-12-19 09:12 | PC.NURSE ---
[place] with crisis visiting pt. pt unhappy with tylenol order and requests narcotic for flank pain. covid swab sent to lab
--- NOTE | 2020-12-19 09:14 | PC.NURSE ---
spoke with Violet in lab about pt's COVID swab. To please place on 1st run today - for psych placement
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
--- NOTE | 2020-12-19 11:05 | PC.NURSE ---
pt bypassed sitter and ran out of ems doors. PD and security notified.
--- NOTE | 2020-12-19 11:10 | PC.NURSE ---
pt eloped out ems doorway. no harm to staff. hospital security and [place] police notified.
--- NOTE | 2020-12-19 11:15 | PC.NURSE ---
returned to room by ed staff. no harm to pt or staff. police outside room speaking with pt
--- NOTE | 2020-12-19 11:27 | PC.NURSE ---
refuses vital signs at this time. tearful with slightly aggressive verbal behavior. police in doorway speaking with pt
[2020-12-19] MEDS: LORazepam (*CRX) 1 MG TABLET PO (11:44)
[2020-12-19 12:10] VITALS: BP 142/80; PULSE 90; RESP 18; TEMP 36.6; O2SAT 100
--- NOTE | 2020-12-19 12:25 | PC.NURSE ---
pt requesting to speak with hospital administration.
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
--- NOTE | 2020-12-19 12:54 | PC.NURSE ---
pt yelling at every staff member that walks down the hallway to get her pain medication and or to take care of her hang nail.
[2020-12-19] MEDS: HALOPERIDOL LACTATE 5 MG/ML VIAL IM (12:55)
--- NOTE | 2020-12-19 12:55 | PC.NURSE ---
at 1255- pt continues to be verbally aggressive towards staff. yelling loudly and disrupting department. pt continues to attempt to come outside of room and no longer open to redirection. pt wishes to leave or be arrested by police for incident at home earlier today. [facility] per md orders at this time
--- NOTE | 2020-12-19 12:58 | PC.NURSE ---
pt attempted to get out of room 15 knocking over the glass of soda. pt placed back in room by RN & security. pt continues to yell to the hallway to 'call the police'
[2020-12-19] MEDS: LORazepam INJ (*CRX) 2 MG/ML VIAL IM (13:25)
--- NOTE | 2020-12-19 13:25 | PC.NURSE ---
pt continues to be verbally aggressive to all pts and staff in hallway. pt continues to attempt to leave room. pt attempting physical aggression towards staff as they continue to keep her in room 15 on involuntary psych hold. pt now in 4 point hard restraints due to disruptive physical and verbal aggression. pt will not redirect or de-escalate at this time. all ed staff has keys to restraints. sitter and security outside door for close obs
--- NOTE | 2020-12-19 15:30 | PC.NURSE ---
left ankle restraint released. on bedpan. no aggressive verbal or physical behavior at this time
--- NOTE | 2020-12-19 15:45 | PC.NURSE ---
rt ankle restraint removed at this time. pt only wearing lockable bilat wrist restraints. no violent or aggressive behavior observed
--- NOTE | 2020-12-19 16:20 | PC.NURSE ---
1600-all lockable restraints removed. pt calm and cooperative. sitter remains outside door for close obs
--- NOTE | 2020-12-19 17:27 | PC.NURSE ---
voicemail left for sister per pt request.
[2020-12-19 18:00] VITALS: BP 150/80; PULSE 78; RESP 18; O2SAT 98
[2020-12-19] MEDS: KETAMINE HCL (*CRX) 500 MG/10 ML VIAL 50 MG IM (18:06)
[2020-12-19 19:19] LABS: SARS-CoV-2 RNA PCR Negative
[2020-12-19 21:08] VITALS: BP 142/86; PULSE 78; RESP 16; TEMP 36.3; O2SAT 100
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
[2020-12-19 22:41] VITALS: BP 131/84; PULSE 78; RESP 16; TEMP 36.3; O2SAT 98
== END 2020-12-19 22:42 ==
PROVIDERS: Emergency Medicine; General Practice; Emergency Provider Family Medicine; PCP Family Medicine
DX: F41.9 Anxiety disorder, unspecified (principal); F43.8 Other reactions to severe stress; N80.9 Endometriosis, unspecified; M81.0 Age-related osteoporosis without current pathological fracture; Z87.891 Personal history of nicotine dependence; Z87.442 Personal history of urinary calculi; Z86.14 Personal history of Methicillin resistant Staphylococcus aureus infection; Z79.82 Long term (current) use of aspirin; F43.9 Reaction to severe stress, unspecified; Z20.822 Contact with and (suspected) exposure to COVID-19
CPT/HCPCS: 36415; 80053; 80307; 81001; 81025; 84443; 85025; 96372; 99285; A9270; C9803; J1630; J2060; U0003; U0005

== ENCOUNTER 2021-03-11 20:40 | Emergency (ER) | payer BC, SELFPAY ==
[2021-03-11] VITALS (13 sets, daily range): BP systolic 117–153; BP diastolic 76–89; PULSE 94–104; RESP 17–18; TEMP 36.5; O2SAT 99–100
--- NOTE | ~2021-03-11 | CT_ITS ---
EXAMINATION: CT abdomen pelvis wo con DATE: 03/11/2021 22:29 INDICATION: Bilateral flank pain TECHNIQUE: Computed tomography (CT) of the abdomen and pelvis was performed without intravenous contr ast. Automated exposure control and iterative reconstruction technique were employed. The dose-length product was 170.55 mGy-cm. COMPARISON: 10/26/2020 FINDINGS: Small bilateral pleural effusions. There are scattered mild pleural thickening and small pulmonary no dules measuring up to 1 cm at the bilateral lower lobes. Heart size is normal. Small pericardial effu mar which is new since the prior study. Liver, gallbladder, spleen, pancreas and bilateral adrenal g lands are normal. There are 5 nonobstructing stones in the left kidney the largest measuring up to 3 mm. Right kidney and bilateral ureters are normal with no ureteral or right renal stones. No hydronep hrosis in either kidney. Bladder is normal. The uterus is not identified and has likely been surgical ly resected. Left hemicolectomy with anastomotic suture line at the rectum. There is also been prior appendectomy with suture line at the tip of cecum. Additional postoperative changes along the small b owel including additional anastomotic suture line. No bowel obstruction. Trace amount of free fluid i n the pelvis. No abscess or free intraperitoneal gas. No pathologically enlarged abdominal or pelvic lymphadenopathy. There is calcified atherosclerosis of the aorta, bilateral common iliac and right in ternal iliac arteries. Mild thoracolumbar dextrocurvature with mild spondylosis. IMPRESSION: 1. A few small bilateral lower lobar pulmonary nodules measuring up to 1 cm which could be infectious , inflammatory or malignant in etiology. Recommend 3 month follow-up chest CT. 2. Small bilateral pleural effusions. 3. New small pericardial effusion. 4. Nonobstructing left nephrolithiasis. Reviewed, dictated and finalized at location A. IMPRESSION: 1. A few small bilateral lower lobar pulmonary nodules measuring up to 1 cm whi ch could be infectious, inflammatory or malignant in etiology. Recommend 3 cullen h follow-up chest CT. 2. Small bilateral pleural effusions. 3. New small pericardial effusion. 4. Nonobstructing left nephrolithiasis.
[2021-03-11 21:18] LABS: Add Urine Microscopic? NO; Appearance Urine Clear (Clear); Bilirubin Urine Negative (Negative); Blood Urine Negative (Negative); Color Urine Straw (Yellow); Glucose Urine UA Negative (Negative); Ketones Urine Negative (Negative); Leukocyte Esterase Ur Negative LEU/UL (Negative); Nitrate Urine Negative (Negative); Protein Urine Negative (Negative); Specific Grav Ur 1.015 (1.001-1.035); Urobilinogen Urine Negative mg/dL (<2.0)
--- NOTE | 2021-03-11 22:14 | PC.NURSE ---
pt to ed c/o hx of kidney stones and bilateral flank pain that is 'getting worse'. denies difficulty urinating, burning or pain with urination, hematuria, or any other symptoms besides bilateral flank pain - left worse than right.
[2021-03-11 22:18] LABS: Basophils Absolute Auto 0.1 K/mm3 (0.0-0.1); Basophils Percent Auto 0.5 % (0.2-1.2); Eosinophils Absolute Auto 0.2 K/mm3 (0-0.3); Eosinophils Percent Auto 1.8 % (0-4.4); Hematocrit 35.9 % (37.0-47.0); Immature Granulocyte Absolute 0.09 K/mm3 (0.00-0.031); Immature Granulocyte Percent A 0.8 % (0-0.5); Lymphocytes Absolute Auto 2.32 K/mm3 (0.9-3.2); Mean Corpuscular HGB Conc 30.6 g/dl (32-36); Mean Corpuscular Hemoglobin 29.5 pg (26-34); Mean Corpuscular Volume 96.2 fl (80-100); Mean Platelet Volume 8.9 fl (7.4-10.4); Monocytes Absolute Auto 0.7 K/mm3 (0.1-0.6); Monocytes Percent Auto 6.2 % (2.6-8.5); Neutrophils Absolute Auto 7.7 K/mm3 (1.3-6.7); Neutrophils Percent Auto 69.7 % (45.5-73.1); Platelet Count Result 394 k/mm3 (150-375); Red Blood Count 3.73 M/mm3 (4.2-5.4); Red Cell Distribution Width 14.9 % (11.5-14.5); White Blood Count 11.1 K/mm3 (4.5-10.0)
[2021-03-11] MEDS: MORPHINE SULFATE (*CRX) 4 MG/ML INJ IV PUSH (22:30)
[2021-03-11] MEDS: SODIUM CHLORIDE 0.9% IV 1,000 ML 999 ML IV CONT (22:30)
[2021-03-11 22:51] LABS: Anion Gap 7 mmol/L (8-16); Blood Urea Nitrogen 14 mg/dL (7-17); Carbon Dioxide 28 mmol/L (22-30); Chloride 103 mmol/L (98-107); Estimated CRCL calculation 59 ml/min; Estimated Glomerular Filt Rate > 60; Glucose 86 mg/dL (65-110); Potassium 3.2 mmol/L (3.4-5.0); Sodium 138 mmol/L (137-145)
--- NOTE | 2021-03-11 23:34 | ED.ABDPAIN ---
HPI - Abdominal Pain General Chief Complaint: Urogenital-Female Stated Complaint: Bilateral flank pain Time Seen by Provider: 03/11/21 22:03 History of Present Illness HPI narrative: Patient is a 55-year-old female who presents ER with bilateral flank pain. Ongoing for the last day. Associate with hematuria. Has history of kidney stones and feels like she is passing 1. No fevers or chills or sweats. Does have some nausea but no vomiting. No alleviating factors at home. Related Data Home Medications Medication Instructions Recorded Confirmed clonazepam 1 mg PO BID 03/14/20 12/02/20 trazodone 150 mg PO HS PRN 03/14/20 12/02/20 Ubrelvy 100 mg PO DIRECTED PRN 06/09/20 12/02/20 alendronate 70 mg PO WEEKLY 06/09/20 12/02/20 aspirin 81 mg PO DAILY 06/09/20 12/02/20 calcium carbonate-vitamin D3 1 tablet PO BID 06/09/20 12/02/20 [Calcium 600 + D(3)] cyanocobalamin (vitamin B-12) 1,000 mcg PO DAILY 06/09/20 12/02/20 [Vitamin B-12] dicyclomine 10 mg PO Q8H 06/09/20 12/02/20 docusate sodium 100 mg PO DAILY 06/09/20 12/02/20 ergocalciferol (vitamin D2) 1,250 mcg PO WEEKLY 06/09/20 12/02/20 [Vitamin D2] folic acid 1 mg PO DAILY 06/09/20 12/02/20 levocetirizine 5 mg PO DAILY 06/09/20 12/02/20 cyclobenzaprine 10 mg PO TID 10/28/20 12/02/20 meloxicam 7.5 mg PO BID 10/28/20 12/02/20 ondansetron HCl [Zofran] 4 mg PO Q8H PRN 10/28/20 12/02/20 sulfamethoxazole-trimethoprim 1 tablet PO BID 10/28/20 12/02/20 sumatriptan succinate [Imitrex] 50 mg PO ONCE PRN 10/28/20 12/02/20 venlafaxine 150 mg PO BID 10/28/20 12/02/20 Allergies Allergy/AdvReac Type Severity Reaction Status Date / Time adhesive tape Allergy Rash Verified 03/11/21 21:03 bupropion [From Wellbutrin] AdvReac ALTERED Verified 03/11/21 21:03 MENTAL STATUS codeine AdvReac Itching Verified 03/11/21 21:03 diphenhydramine AdvReac Jittery Verified 03/11/21 21:03 [From Benadryl] duloxetine [From Cymbalta] AdvReac ALTERED Verified 03/11/21 21:03 MENTAL STATUS gabapentin AdvReac Confusion Verified 03/11/21 21:03 sertraline [From Zoloft] AdvReac Confusion Verified 03/11/21 21:03 Review of Systems Review of Systems: All systems reviewed & are unremarkable except as noted in HPI and below Constitutional: Constitutional: Denies chills, Denies fever(s) and Denies weakness Cardiovascular: Cardiovascular: Denies chest pain and Denies radiating jaw, neck or arm pain Gastrointestinal: Gastrointestinal: Reports abdominal pain, Denies diarrhea, Reports nausea and Denies vomiting Genitourinary: Genitourinary: Reports hematuria, Reports nocturia, Denies dysuria and Reports flank pain PMFSH Past Medical History Medical History Anxiety Endometriosis Flank pain History of kidney stones History of MRSA infection Migraine Osteoporosis PONV (postoperative nausea and vomiting) Surgical History Surgical History History of abdominal surgery History of hysterectomy Social History Social History Smoking packs per day: 1.5 Smoking cigarettes per day: 30.0 Years smoked: 12 Smoking pack-years: 18.00 Smoking status: Former smoker Tobacco type: cigarettes and e-cigarettes/vaping Additional smoking assessment comments: QUIT CIGARETTES 10 YEARS AGO, QUIT VAPING 3 MONTHS AGO Alcohol intake: never Substance use: current Substance use type: marijuana, crack/cocaine, amphetamines, sedatives and opiates Other substance usage details: VAPE 2-3 TIMES/DAY Last use: 11/15/20 Gender identity (if verbalized by the patient): Female Spiritual care concerns: No Exam Narrative: GENERAL: Well-appearing, well-nourished, and in no acute distress. HEAD: Normocephalic, atraumatic. CHEST: Clear to auscultation. No respiratory distress. HEART: Regular rate and rhythm. Normal periph
[2021-03-11] MEDS: KETOROLAC 15 MG/ML VIAL (*BKC) IV PUSH (23:51)
--- NOTE | 2021-03-12 23:22 | PC.NURSE ---
Attempted to call patient regarding the over read on her CT. Per ERP Jann pt needs to return to the ED if she develops a fever or SOB due to pulmonary nodules being found on her CT. If none of these sx arise pt is to follow up with her primary.
--- NOTE | 2021-03-13 08:38 | PC.NURSE ---
Spoke with Anju Bender over the phone aout her CT results. She will follow-up with PCP about the results and will return for SOB,FEVER.
== END 2021-03-12 00:24 | disposition home or self-care (01) ==
PROVIDERS: Emergency Provider Emergency Medicine; PCP Family Medicine
DX: R10.9 Unspecified abdominal pain (principal); F41.9 Anxiety disorder, unspecified; N80.9 Endometriosis, unspecified; Z87.442 Personal history of urinary calculi; Z86.14 Personal history of Methicillin resistant Staphylococcus aureus infection; M81.0 Age-related osteoporosis without current pathological fracture; Z87.891 Personal history of nicotine dependence; N20.0 Calculus of kidney; R91.8 Other nonspecific abnormal finding of lung field
CPT/HCPCS: 36415; 74176; 80048; 81003; 85025; 96361; 96374; 96375; 99284; J1885; J2270; J7030

== ENCOUNTER → 2021-03-24 08:32 | Outpatient (CLI) | payer BC, SELFPAY ==
[2021-03-25 03:39] LABS: SARS-CoV-2 RNA PCR Negative
== END ==
PROVIDERS: PCP Family Medicine; Visit Provider Family Medicine
DX: Z20.822 Contact with and (suspected) exposure to COVID-19 (principal); R50.9 Fever, unspecified
CPT/HCPCS: C9803; U0003; U0005

== ENCOUNTER → 2021-05-18 02:41 | Outpatient (CLI) | payer BC, SELFPAY ==
[2021-05-18 17:37] LABS: SARS-CoV-2 RNA PCR Negative
== END ==
PROVIDERS: PCP Family Medicine; Visit Provider Family Medicine
DX: Z20.822 Contact with and (suspected) exposure to COVID-19 (principal); R50.9 Fever, unspecified
CPT/HCPCS: C9803; U0003; U0005

== ENCOUNTER 2021-05-29 22:55 | Emergency (ER) | payer BC, SELFPAY ==
--- NOTE | ~2021-05-29 | XR_ITS ---
EXAMINATION: XR chest 2V DATE: 05/30/2021 00:01 INDICATION: Chest pain TECHNIQUE: PA and lateral views of the chest are obtained. COMPARISON: None available FINDINGS: The lungs are free of acute opacities. Surgical changes are noted in the left upper lobe. T here is no pleural effusion or pneumothorax. The cardiomediastinal silhouette is normal. The visualiz ed bones and soft tissues are unremarkable. IMPRESSION: 1. No acute cardiopulmonary abnormality. Reviewed, dictated and finalized at location A.
--- NOTE | ~2021-05-29 | CT_ITS ---
EXAMINATION: CTA chest PE abdomen pel DATE: 05/30/2021 05:21 INDICATION: Chest pain. Dyspnea. TECHNIQUE: Computed tomography angiography (CTA) of the chest was performed with 100 mL Omnipaque-350 intravenous contrast timed to evaluate the pulmonary arteries. Coronal maximum intensity projection 3D-reconstructions were created by the technologist. Computed tomography (CT) of the abdomen and pelv is was performed with intravenous contrast. Automated exposure control and iterative reconstruction t echnique were employed. The dose-length product was 330.30 mGy-cm. COMPARISON: CT abdomen and pelvis 03/01/2021 FINDINGS: CTA chest: There is mild scarring at the lung apices. There is a staple line in left upper lobe. Ther e is mild atelectasis bilaterally. No pleural effusion. The heart size is normal. No pericardial effu mar. There is no pulmonary embolus. CT abdomen and pelvis: The liver, gallbladder, spleen, pancreas, adrenal glands, and right kidney are normal. There are four 1-3 mm stones in left kidney. There is an anastomosis in the rectosigmoid. Th ere are no dilated loops of bowel. There is a staple line in small bowel on the left. There are bryson es of appendectomy. There are no pathologically enlarged lymph nodes. There is no free intraperitonea l fluid. There is calcified atherosclerosis of the aorta and many of the other arteries. There is mil d lumbar spondylosis. IMPRESSION: 1. No pulmonary embolus. 2. Small nonobstructing left kidney stones. Reviewed, dictated and finalized at location A.
[2021-05-29 23:14] VITALS: BP 123/76; PULSE 107; RESP 20; TEMP 37.1; O2SAT 99
--- NOTE | 2021-05-29 23:14 | ECG_ITS ---
Measurements Intervals [place] Rate: 110 P: 59 MS: 152 QRS: 67 QRSD: 90 T: 62 QT: 334 QTc: 454 Interpretive Statements SINUS TACHYCARDIA ATRIAL PREMATURE COMPLEXES BORDERLINE ST-T WAVE ABNORMALITY- ANTEROLAT/INF LEADS BASELINE ARTIFACT- I, III, AVL, AVF ABNORMAL ECG Electronically Signed On 05-30-2021 6:05:45 CDT by Yakov Quintana D.O.
[2021-05-30] VITALS (28 sets, daily range): BP systolic 100–168; BP diastolic 70–112; PULSE 78–118; RESP 13–26; TEMP 36.7; O2SAT 97–100
--- NOTE | 2021-05-30 00:57 | PC.NURSE ---
Triage tech reports unable to draw blood on patient.
[2021-05-30 01:41] LABS: Basophils Absolute Auto 0.1 K/mm3 (0.0-0.1); Basophils Percent Auto 0.6 % (0.2-1.2); Eosinophils Absolute Auto 0.1 K/mm3 (0-0.3); Eosinophils Percent Auto 1.8 % (0-4.4); Hematocrit 42.5 % (37.0-47.0); Hemoglobin 13.9 g/dL (12.0-15.0); Immature Granulocyte Absolute 0.01 K/mm3 (0.00-0.031); Immature Granulocyte Percent A 0.1 % (0-0.5); Lymphocytes Percent Auto 28.5 % (18.3-44.2); Mean Corpuscular HGB Conc 32.7 g/dl (32-36); Mean Corpuscular Hemoglobin 30.3 pg (26-34); Mean Corpuscular Volume 92.6 fl (80-100); Mean Platelet Volume 9.5 fl (7.4-10.4); Monocytes Absolute Auto 0.5 K/mm3 (0.1-0.6); Monocytes Percent Auto 6.9 % (2.6-8.5); Neutrophils Absolute Auto 4.8 K/mm3 (1.3-6.7); Neutrophils Percent Auto 62.1 % (45.5-73.1); Platelet Count Result 356 k/mm3 (150-375); Red Blood Count 4.59 M/mm3 (4.2-5.4); Red Cell Distribution Width 12.4 % (11.5-14.5); White Blood Count 7.7 K/mm3 (4.5-10.0)
[2021-05-30 01:45] LABS: Anion Gap 9 mmol/L (8-16); Blood Urea Nitrogen 7 mg/dL (7-17); Calcium 9.6 mg/dL (8.4-10.2); Carbon Dioxide 30 mmol/L (22-30); Chloride 98 mmol/L (98-107); Estimated CRCL calculation 49 ml/min; Estimated Glomerular Filt Rate > 60; Glucose 99 mg/dL (65-110); Potassium 4.3 mmol/L (3.4-5.0); Prothrombin Time 12.8 Seconds (11.1-14.7); Sodium 137 mmol/L (137-145)
[2021-05-30 01:46] LABS: Partial Thromboplastin Time 29.7 SECONDS (22.3-36.8)
[2021-05-30 01:57] LABS: Troponin I < 0.012 ng/mL (0.000-0.034)
--- NOTE | 2021-05-30 02:36 | ED.GENADULT ---
HPI - General Adult General Chief complaint: Chest Pain Stated complaint: HARDY, congestion, SOB, CP Time Seen by Provider: 05/30/21 02:29 Source: RN notes reviewed History of Present Illness HPI narrative: Patient presents emergency department from home for multiple complaints. Patient's primary complaint is that she has had diarrhea for the past 3 weeks she states that she has diarrhea whenever she eats or drinks anything states that her bowel movements are loose is associated with abdominal pain in the bilateral lower abdomen described as crampy in nature states she is also had associated nausea and vomiting that started yesterday. She states is also been associated with a fever yesterday up to 101. Patient states that for the past several days as well she has had some nasal congestion as well as a sore throat and nonproductive cough she has some mild shortness of breath with this. States she has not had her Covid vaccinations Related Data Home Medications Medication Instructions Recorded Confirmed clonazepam 1 mg PO BID 03/14/20 12/02/20 trazodone 150 mg PO HS PRN 03/14/20 12/02/20 Ubrelvy 100 mg PO DIRECTED PRN 06/09/20 12/02/20 alendronate 70 mg PO WEEKLY 06/09/20 12/02/20 aspirin 81 mg PO DAILY 06/09/20 12/02/20 calcium carbonate-vitamin D3 1 tablet PO BID 06/09/20 12/02/20 [Calcium 600 + D(3)] cyanocobalamin (vitamin B-12) 1,000 mcg PO DAILY 06/09/20 12/02/20 [Vitamin B-12] dicyclomine 10 mg PO Q8H 06/09/20 12/02/20 docusate sodium 100 mg PO DAILY 06/09/20 12/02/20 ergocalciferol (vitamin D2) 1,250 mcg PO WEEKLY 06/09/20 12/02/20 [Vitamin D2] folic acid 1 mg PO DAILY 06/09/20 12/02/20 levocetirizine 5 mg PO DAILY 06/09/20 12/02/20 cyclobenzaprine 10 mg PO TID 10/28/20 12/02/20 meloxicam 7.5 mg PO BID 10/28/20 12/02/20 ondansetron HCl [Zofran] 4 mg PO Q8H PRN 10/28/20 12/02/20 sulfamethoxazole-trimethoprim 1 tablet PO BID 10/28/20 12/02/20 sumatriptan succinate [Imitrex] 50 mg PO ONCE PRN 10/28/20 12/02/20 venlafaxine 150 mg PO BID 10/28/20 12/02/20 Allergies Allergy/AdvReac Type Severity Reaction Status Date / Time adhesive tape Allergy Rash Verified 03/11/21 21:03 bupropion [From Wellbutrin] AdvReac ALTERED Verified 03/11/21 21:03 MENTAL STATUS codeine AdvReac Itching Verified 03/11/21 21:03 diphenhydramine AdvReac Jittery Verified 03/11/21 21:03 [From Benadryl] duloxetine [From Cymbalta] AdvReac ALTERED Verified 03/11/21 21:03 MENTAL STATUS gabapentin AdvReac Confusion Verified 03/11/21 21:03 sertraline [From Zoloft] AdvReac Confusion Verified 03/11/21 21:03 Review of Systems Review of Systems: Gen.: Reports fever Eyes: Denies eye pain or visual change ENT: Reports congestion Respiratory: Denies shortness of breath reports cough CV: Denies chest pain or palpitations GI: See HPI Musculoskeletal: Denies back pain or muscle pain Neuro: Reports frontal headache Skin: Denies rash Except as documented, all other systems reviewed and negative [facility] Past Medical History Medical History Anxiety Endometriosis Flank pain History of kidney stones History of MRSA infection Migraine Osteoporosis PONV (postoperative nausea and vomiting) Surgical History Surgical History History of abdominal surgery History of hysterectomy Social History Social History Smoking packs per day: 1.5 Smoking cigarettes per day: 30.0 Years smoked: 12 Smoking pack-years: 18.00 Smoking status: Former smoker Tobacco type: cigarettes and e-cigarettes/vaping Additional smoking assessment comments: QUIT CIGARETTES 10 YEARS AGO, QUIT VAPING 3 MONTHS AGO Alcohol intake: never Substance use: current Substance use type: marijuana, crack/cocaine, amphetamines, sedatives and opiates Other substance usage details: VAPE 2-3
[2021-05-30 03:05] LABS: Alanine Aminotransferase 28 U/L (4-35); Albumin Level 4.7 g/dL (3.5-5.1); Alkaline Phosphatase 94 U/L (38-126); Aspartate Amino Transferase 32 U/L (14-36); Bilirubin,Total 0.2 mg/dL (0.2-1.3); Lipase 51 U/L (23-300)
[2021-05-30 03:20] LABS: D Dimer 0.52 ug/mL (<0.48)
[2021-05-30] MEDS: KETOROLAC (*BKC) 60 MG/2 ML VIAL IM (04:30)
[2021-05-30] MEDS: ONDANSETRON HCL ODT 4 MG TABLET PO (04:31)
[2021-05-30] MEDS: SODIUM CHLORIDE 0.9% IV 1,000 ML 999 ML IV CONT (04:55)
--- NOTE | 2021-05-30 04:56 | PC.NURSE ---
20 gauge IV started in pt right EJ by EDP Dr. Coon
[2021-05-30 05:29] LABS: Troponin I < 0.012 ng/mL (0.000-0.034)
[2021-05-30] MEDS: MORPHINE SULFATE (*CRX) 4 MG/ML INJ IM (05:41)
[2021-05-30 07:08] LABS: Add Urine Microscopic? NO; Appearance Urine Clear (Clear); Bilirubin Urine Negative (Negative); Blood Urine Negative (Negative); Color Urine Straw (Yellow); Glucose Urine UA Negative (Negative); Ketones Urine Negative (Negative); Leukocyte Esterase Ur Negative LEU/UL (Negative); Nitrate Urine Negative (Negative); Protein Urine Negative (Negative); Urobilinogen Urine Negative mg/dL (<2.0)
[2021-05-30 07:10] LABS: Specific Grav Ur > 1.060 (1.001-1.035)
[2021-05-31 19:26] LABS: SARS-CoV-2 RNA PCR Negative
--- NOTE | 2021-06-07 13:13 | PC.NURSE ---
LATE ENTRY This note is being entered to document information to the patient's record. The following information was omitted on [05/30/2021], by [Yao Kim RN]. NS stop time was 0555am
== END 2021-05-30 08:18 | disposition home or self-care (01) ==
PROVIDERS: Emergency Provider Emergency Medicine; PCP Family Medicine
DX: R19.7 Diarrhea, unspecified (principal); R10.32 Left lower quadrant pain; R10.31 Right lower quadrant pain; J06.9 Acute upper respiratory infection, unspecified; Z20.822 Contact with and (suspected) exposure to COVID-19; M81.0 Age-related osteoporosis without current pathological fracture; F41.9 Anxiety disorder, unspecified; Z87.442 Personal history of urinary calculi; Z86.14 Personal history of Methicillin resistant Staphylococcus aureus infection; Z87.891 Personal history of nicotine dependence; R00.0 Tachycardia, unspecified; I49.1 Atrial premature depolarization; R94.31 Abnormal electrocardiogram [ECG] [EKG]; N20.0 Calculus of kidney
CPT/HCPCS: 36415; 71046; 71275; 74177; 80048; 80076; 81003; 83690; 84484; 85025; 85380; 85610; 85730; 93005; 96360; 96372; 99284; A9270; C9803; J1885; J2270; J7030; Q9967; U0003; U0005

== ENCOUNTER 2022-09-22 02:47 | Emergency (ER) | payer BC, SELFPAY ==
[2022-09-22 02:54] VITALS: BP 159/60; PULSE 79; RESP 13; TEMP 36.8; O2SAT 100
--- NOTE | 2022-09-22 03:49 | ED.GENADULT ---
HPI - General Adult General Chief complaint: Dental/Oral Stated complaint: dental issue Time Seen by Provider: 09/22/22 03:23 History of Present Illness HPI narrative: This is a 56-year-old female presenting ED with chief complaint of dental pain. Patient has implants in the bottom row. She said that she is having discharge pus into her mouth. She has appointment with her dentist on Saturday. The goal today's visit is pain control. She notes that she has had some swelling to her jaw but no focal area of fluctuance. She has no swelling in her mouth, difficulty breathing. She is able to swallow her own secretions. Related Data Home Medications Medication Instructions Recorded Confirmed clonazepam 1 mg tablet 1 mg PO BID 03/14/20 12/02/20 trazodone 150 mg tablet 150 mg PO HS PRN Insomnia 03/14/20 12/02/20 alendronate 70 mg tablet 70 mg PO WEEKLY 06/09/20 12/02/20 aspirin 81 mg tablet 81 mg PO DAILY 06/09/20 12/02/20 calcium carbonate 600 mg-vitamin 1 tablet PO BID 06/09/20 12/02/20 D3 10 mcg (400 unit) tablet (Calcium 600 + D(3)) cyanocobalamin (vitamin B-12) 1,000 mcg PO DAILY 06/09/20 12/02/20 1,000 mcg tablet (Vitamin B-12) dicyclomine 10 mg capsule 10 mg PO Q8H 06/09/20 12/02/20 docusate sodium 100 mg capsule 100 mg PO DAILY 06/09/20 12/02/20 ergocalciferol (vitamin D2) 1,250 1,250 mcg PO WEEKLY 06/09/20 12/02/20 mcg (50,000 unit) capsule (Vitamin D2) folic acid 1 mg tablet 1 mg PO DAILY 06/09/20 12/02/20 levocetirizine 5 mg tablet 5 mg PO DAILY 06/09/20 12/02/20 ubrogepant 100 mg tablet (Ubrelvy) 100 mg PO DIRECTED PRN Headache 06/09/20 12/02/20 cyclobenzaprine 10 mg tablet 10 mg PO TID 10/28/20 12/02/20 meloxicam 7.5 mg tablet 7.5 mg PO BID 10/28/20 12/02/20 ondansetron HCl 4 mg tablet 4 mg PO Q8H PRN Nausea 10/28/20 12/02/20 (Zofran) sulfamethoxazole 800 1 tablet PO BID 10/28/20 12/02/20 mg-trimethoprim 160 mg tablet sumatriptan succinate 50 mg tablet 50 mg PO ONCE PRN Migraine Headache 10/28/20 12/02/20 (Imitrex) venlafaxine 150 mg tablet,extended 150 mg PO BID 10/28/20 12/02/20 release 24 hr Allergies Allergy/AdvReac Type Severity Reaction Status Date / Time adhesive tape Allergy Rash Verified 09/22/22 02:48 bupropion [From Wellbutrin] AdvReac ALTERED Verified 09/22/22 02:48 MENTAL STATUS codeine AdvReac Itching Verified 09/22/22 02:48 diphenhydramine AdvReac Jittery Verified 09/22/22 02:48 [From Benadryl] duloxetine [From Cymbalta] AdvReac ALTERED Verified 09/22/22 02:48 MENTAL STATUS gabapentin AdvReac Confusion Verified 09/22/22 02:48 sertraline [From Zoloft] AdvReac Confusion Verified 09/22/22 02:48 PMFSH Past Medical History Medical History Anxiety Endometriosis Flank pain History of kidney stones History of MRSA infection Migraine Osteoporosis PONV (postoperative nausea and vomiting) Surgical History Surgical History History of abdominal surgery History of hysterectomy Social History Social History Smoking packs per day: 1.5 Smoking cigarettes per day: 30.0 Years smoked: 12 Smoking pack-years: 18.00 Smoking status: Former smoker Tobacco type: cigarettes and e-cigarettes/vaping Additional smoking assessment comments: QUIT CIGARETTES 10 YEARS AGO, QUIT VAPING 3 MONTHS AGO Alcohol intake: never Substance use: current Substance use type: marijuana, crack/cocaine, amphetamines, sedatives and opiates Other substance usage details: VAPE 2-3 TIMES/DAY Last use: 11/15/20 Living arrangements: with family Gender identity (if verbalized by the patient): Female Spiritual care concerns: No Exam Narrative: APPEARANCE: patient appears older than her stated Head: patient has 2 metallic implants in the bottom row. One on the right is exquisitely tender to to
[2022-09-22] MEDS: HYDROcodone/acetaminophen (*CRX) 5-325 MG TABLET 1 TAB PO (04:16)
[2022-09-22] MEDS: AMOXICILLIN/CLAVULANATE K 875-125 MG TAB 1 TABLET PO (04:16)
== END 2022-09-22 04:27 | disposition home or self-care (01) ==
PROVIDERS: Emergency Provider Emergency Medicine; PCP Family Medicine
DX: K08.89 Other specified disorders of teeth and supporting structures (principal); G89.29 Other chronic pain; N80.9 Endometriosis, unspecified; M81.0 Age-related osteoporosis without current pathological fracture; F41.9 Anxiety disorder, unspecified; Z90.710 Acquired absence of both cervix and uterus; Z87.442 Personal history of urinary calculi; Z86.14 Personal history of Methicillin resistant Staphylococcus aureus infection; Z87.891 Personal history of nicotine dependence; Z79.82 Long term (current) use of aspirin
CPT/HCPCS: 99283; A9270

== ENCOUNTER 2022-10-15 01:24 | Emergency (ER) | payer BC, SELFPAY ==
--- NOTE | ~2022-10-15 | CT_ITS ---
EXAMINATION: CT brain wo con DATE: 10/15/2022 05:04 INDICATION: Head injury. Headache. TECHNIQUE: Computed tomography (CT) of the head was performed without intravenous contrast. The mA wa s adjusted according to patient size. Iterative reconstruction technique was employed. The dose-lengt h product was 605.33 mGy-cm. COMPARISON: None FINDINGS: There is no intracranial hemorrhage, acute infarction, or abnormal intracranial mass lesion . The ventricles are normal in size. The paranasal sinuses are clear. The mastoid air cells are peggy l. IMPRESSION: 1. Normal brain. Reviewed, dictated and finalized at location D. OIL PUMP OPERATOR HELPER IMPRESSION: 1. Normal brain.
--- NOTE | ~2022-10-15 | XR_ITS ---
EXAMINATION: XR shoulder RT min 2V DATE: 10/15/2022 04:36 INDICATION: Right shoulder pain TECHNIQUE: AP internally and externally rotated and AP oblique externally rotated views of the right shoulder were obtained. COMPARISON: None FINDINGS: Normal alignment. No fracture. Mild right glenohumeral and acromioclavicular osteoarthritis. Soft ti ssues are unremarkable. Visualized portion of the right upper lung are clear. IMPRESSION: Mild right glenohumeral and acromioclavicular osteoarthritis. Reviewed, dictated and finalized at location A. T DECK
--- NOTE | ~2022-10-15 | CT_ITS ---
EXAMINATION: CT cervical spine wo con DATE: 10/15/2022 05:04 INDICATION: Neck pain. TECHNIQUE: Computed tomography (CT) of the cervical spine was performed without intravenous contrast. Automated exposure control and iterative reconstruction technique were employed. The dose-length pro duct was 86.04 mGy-cm. COMPARISON: None FINDINGS: There is mild emphysema. There is mild scarring at the lung apices. There is kyphosis of ce rvical spine. There is 2 mm retrolisthesis of C5 on C6. Vertebral body heights are normal. There is m ildly decreased disc height at C4-C5 and severely decreased disc height at C5-C6. The following disc levels are specifically discussed: C2-C3: There is no uncovertebral joint osteoarthritis. There is mild bilateral facet joint osteoarthr itis. There is no neural foraminal stenosis. There is no central canal stenosis. C3-C4: There is mild bilateral uncovertebral joint osteoarthritis. There is no facet joint osteoarthr itis. There is no neural foraminal stenosis. There is mild central canal stenosis. C4-C5: There is mild right uncovertebral joint osteoarthritis. There is no facet joint osteoarthritis . There is no neural foraminal stenosis. There is mild central canal stenosis. C5-C6: There is severe bilateral uncovertebral joint osteoarthritis. There is severe right facet join t osteoarthritis. There is mild bilateral neural foraminal stenosis. There is mild central canal sten osis. C6-C7: There is mild left uncovertebral joint osteoarthritis. There is no facet joint osteoarthritis. There is no neural foraminal stenosis. There is no central canal stenosis. C7-T1: There is no uncovertebral joint osteoarthritis. There is no facet joint osteoarthritis. There is no neural foraminal stenosis. There is no central canal stenosis. IMPRESSION: 1. No fracture. 2. Severe spondylosis at C5-C6 and mild spondylosis at other levels. Reviewed, dictated and finalized at location D. BLEACHING MACHINE OPERATOR
--- NOTE | ~2022-10-15 | XR_ITS ---
EXAMINATION: XR knee RT 3V DATE: 10/15/2022 04:35 INDICATION: Right knee pain post fall TECHNIQUE: Anteroposterior, oblique and crosstable lateral views of the right knee were obtained COMPARISON: None. FINDINGS: Alignment is normal. No fracture. No joint effusion/layering lipohemarthrosis. Soft tissues are unre markable. IMPRESSION: 1. Negative right knee radiographs. Reviewed, dictated and finalized at location A. OUT HAND
--- NOTE | ~2022-10-15 | XR_ITS ---
EXAMINATION: XR hip RT 2V w AP pelvis DATE: 10/15/2022 04:35 INDICATION: Right hip pain post fall TECHNIQUE: Anteroposterior view of the pelvis and anteroposterior and frog-leg lateral views of the r ight hip were obtained. COMPARISON: CT dated 05/30/2021 FINDINGS: Bone alignment is normal. No fracture. Bilateral hip and sacroiliac joint spaces are normal. There ar e few scattered small bone islands in the pelvis and proximal femurs. Bowel anastomotic suture line i n the central pelvis. Several tiny metallic fragments subcutaneous tissues of the left hemipelvis. He terotopic ossification at the right buttock. IMPRESSION: 1. No acute osseous abnormalities. Reviewed, dictated and finalized at location A. ADIER
--- NOTE | ~2022-10-15 | CT_ITS ---
EXAMINATION: CT chest abdomen pelvis w con DATE: 10/15/2022 05:06 INDICATION: Fall down stairs. Patient struck head. Right head pain, shoulder and hip pain. Posterior neck pain near base of skull. Chest, abdomen and pelvis injury. TECHNIQUE: Computed tomography (CT) of the chest, abdomen and pelvis was performed with 98 CC Omnipaq ue 350 intravenous contrast. Automated exposure control and iterative reconstruction technique were e mployed. Exam dose: 250.92 mGy-cm total exam DLP. COMPARISON: 05/30/2021 CTA chest abdomen pelvis FINDINGS: Status post left upper lobe wedge resection. Right apical pulmonary scarring. No pulmonary infiltrate or consolidation or pulmonary mass lesion. Normal heart size. No hilar or mediastinal mass lesion or lymphadenopathy. Thoracic aortic atheroscle rosis, right vessel calcified atherosclerosis. Coronary artery atherosclerosis. No thoracic aortic aneurysm or dissection. No pericardial or pleural effusion. No hilar or mediastinal mass lesion or lymphadenopathy. The liver, gallbladder, spleen, pancreas, pancreatic duct, bile ducts and adrenal glands are unremark able. Several small nonobstructing left renal calculi. No ureteral calculus or hydroureteronephrosis. The u rinary bladder is unremarkable. Status post hysterectomy. Normal appendix. Postoperative changes of small and rectosigmoid area. There is a prominent amount of fecal material within the rectum and colon. No bowel obstruction, bowel wall thickening, pneumatosis or intraperitoneal free air. There is extensive calcification but no aneurysm of the abdominal aorta. Prominent calcification of t he origins of the renal arteries. No intraperitoneal or retroperitoneal or pelvic mass lesion or julio opathy or ascites. Multiple subacute or old old left rib fracture deformities and subacute anterior right fifth rib frac ture. No suspicious osteolytic or osteoblastic lesions. IMPRESSION: Status post left upper lobe wedge resection Right fifth and multiple left rib subacute or old rib fractures Left nephrolithiasis Normal appendix. Postoperative change of the small bowel and rectosigmoid area Status post hysterectomy Reviewed, dictated and finalized at Location A. Reviewed, dictated and finalized at location B. ITURE REMOVALIST'S ASSISTANT
--- NOTE | ~2022-10-15 | XR_ITS ---
EXAMINATION: XR ankle RT min 3V DATE: 10/15/2022 04:35 INDICATION: Right ankle pain post fall TECHNIQUE: Anteroposterior, mortise, and lateral views of the right ankle were obtained. COMPARISON: None. FINDINGS: Alignment is normal. No fracture. Mild osteoarthritis at the talonavicular and second and third tars al metatarsal joints. No ankle joint effusion. The soft tissues are unremarkable. IMPRESSION: 1. Mild osteoarthritis at the right midfoot. No acute osseous abnormality. Reviewed, dictated and finalized at location A. CARE ASSOCIATE
[2022-10-15 01:32] VITALS: BP 112/59; PULSE 54; RESP 16; TEMP 36.8; O2SAT 100
[2022-10-15 03:30] VITALS: BP 108/52; PULSE 65; RESP 14; O2SAT 97
--- NOTE | 2022-10-15 03:34 | ED.GENADULT ---
HPI - General Adult General Chief complaint: Fall Stated complaint: Right ankle, right hip, right shoulder pain Time Seen by Provider: 10/15/22 02:40 History of Present Illness HPI narrative: Patient 56-year-old female who presents the emergency department with chief complaint of fall. Reports that that she was walking outside tripped and fell and landed on her right side of her body the patient reports she has swelling in her right hip area but also has pain throughout her abdomen and the right side of her chest patient states that she has pain in her right shoulder patient reports no loss of consciousness does report that she may have hit her head. Related Data Home Medications Medication Instructions Recorded Confirmed clonazepam 1 mg tablet 1 mg PO BID 03/14/20 12/02/20 trazodone 150 mg tablet 150 mg PO HS PRN Insomnia 03/14/20 12/02/20 alendronate 70 mg tablet 70 mg PO WEEKLY 06/09/20 12/02/20 aspirin 81 mg tablet 81 mg PO DAILY 06/09/20 12/02/20 calcium carbonate 600 mg-vitamin 1 tablet PO BID 06/09/20 12/02/20 D3 10 mcg (400 unit) tablet (Calcium 600 + D(3)) cyanocobalamin (vitamin B-12) 1,000 mcg PO DAILY 06/09/20 12/02/20 1,000 mcg tablet (Vitamin B-12) dicyclomine 10 mg capsule 10 mg PO Q8H 06/09/20 12/02/20 docusate sodium 100 mg capsule 100 mg PO DAILY 06/09/20 12/02/20 ergocalciferol (vitamin D2) 1,250 1,250 mcg PO WEEKLY 06/09/20 12/02/20 mcg (50,000 unit) capsule (Vitamin D2) folic acid 1 mg tablet 1 mg PO DAILY 06/09/20 12/02/20 levocetirizine 5 mg tablet 5 mg PO DAILY 06/09/20 12/02/20 ubrogepant 100 mg tablet (Ubrelvy) 100 mg PO DIRECTED PRN Headache 06/09/20 12/02/20 cyclobenzaprine 10 mg tablet 10 mg PO TID 10/28/20 12/02/20 meloxicam 7.5 mg tablet 7.5 mg PO BID 10/28/20 12/02/20 ondansetron HCl 4 mg tablet 4 mg PO Q8H PRN Nausea 10/28/20 12/02/20 (Zofran) sulfamethoxazole 800 1 tablet PO BID 10/28/20 12/02/20 mg-trimethoprim 160 mg tablet sumatriptan succinate 50 mg tablet 50 mg PO ONCE PRN Migraine Headache 10/28/20 12/02/20 (Imitrex) venlafaxine 150 mg tablet,extended 150 mg PO BID 10/28/20 12/02/20 release 24 hr Allergies Allergy/AdvReac Type Severity Reaction Status Date / Time adhesive tape Allergy Rash Verified 09/22/22 02:48 bupropion [From Wellbutrin] AdvReac ALTERED Verified 09/22/22 02:48 MENTAL STATUS codeine AdvReac Itching Verified 09/22/22 02:48 diphenhydramine AdvReac Jittery Verified 09/22/22 02:48 [From Benadryl] duloxetine [From Cymbalta] AdvReac ALTERED Verified 09/22/22 02:48 MENTAL STATUS gabapentin AdvReac Confusion Verified 09/22/22 02:48 sertraline [From Zoloft] AdvReac Confusion Verified 09/22/22 02:48 Review of Systems Review of Systems: A 10 system review of systems was completed on the patient and is negative except for what is stated in the HPI. Nursing and ancillary documentation was reviewed. [facility] Past Medical History Medical History Anxiety Endometriosis Flank pain History of kidney stones History of MRSA infection Migraine Osteoporosis PONV (postoperative nausea and vomiting) Surgical History Surgical History History of abdominal surgery History of hysterectomy Social History Social History Smoking packs per day: 1.5 Smoking cigarettes per day: 30.0 Years smoked: 12 Smoking pack-years: 18.00 Smoking status: Former smoker Tobacco type: cigarettes and e-cigarettes/vaping Additional smoking assessment comments: QUIT CIGARETTES 10 YEARS AGO, QUIT VAPING 3 MONTHS AGO Alcohol intake: never Substance use: current Substance use type: marijuana, crack/cocaine, amphetamines, sedatives and opiates Other substance usage details: VAPE 2-3 TIMES/DAY Last use: 11/15/20 Living arrangements: with family
[2022-10-15 03:49] LABS: Basophils Absolute Auto 0.1 K/mm3 (0.0-0.1); Basophils Percent Auto 0.4 % (0.2-1.2); Eosinophils Absolute Auto 0.1 K/mm3 (0-0.3); Eosinophils Percent Auto 1.2 % (0-4.4); Hematocrit 35.5 % (37.0-47.0); Hemoglobin 11.4 g/dL (12.0-15.0); Immature Granulocyte Absolute 0.04 K/mm3 (0.00-0.031); Immature Granulocyte Percent A 0.4 % (0-0.5); Lymphocytes Absolute Auto 2.45 K/mm3 (0.9-3.2); Lymphocytes Percent Auto 21.5 % (18.3-44.2); Mean Corpuscular HGB Conc 32.1 g/dl (32-36); Mean Corpuscular Hemoglobin 29.1 pg (26-34); Mean Corpuscular Volume 90.6 fl (80-100); Mean Platelet Volume 9.9 fl (7.4-10.4); Monocytes Absolute Auto 1.1 K/mm3 (0.1-0.6); Monocytes Percent Auto 9.8 % (2.6-8.5); Neutrophils Absolute Auto 7.6 K/mm3 (1.3-6.7); Neutrophils Percent Auto 66.7 % (45.5-73.1); Platelet Count Result 358 k/mm3 (150-375); Red Blood Count 3.92 M/mm3 (4.2-5.4); Red Cell Distribution Width 13.9 % (11.5-14.5); White Blood Count 11.4 K/mm3 (4.5-10.0)
[2022-10-15 03:50] LABS: Appearance Urine Clear (Clear); Bilirubin Urine Negative (Negative); Blood Urine Negative (Negative); Color Urine Yellow (Yellow); Glucose Urine UA Negative (Negative); Ketones Urine Negative (Negative); Leukocyte Esterase Ur Negative LEU/UL (Negative); Nitrate Urine Negative (Negative); Protein Urine Negative (Negative); Specific Grav Ur 1.009 (1.001-1.035); Urobilinogen Urine 0.2 mg/dL (<2.0); pH Urine 6.5 (5.0-9.0)
[2022-10-15 04:00] LABS: Lactic Acid Reflex 2.1 mmol/L (0.7-2.0)
[2022-10-15 04:02] LABS: Alanine Aminotransferase 22 U/L (6-35); Albumin Level 4.1 g/dL (3.5-5.1); Alkaline Phosphatase 75 U/L (38-126); Anion Gap 6 mmol/L (8-16); Aspartate Amino Transferase 35 U/L (14-36); Bilirubin,Total 0.4 mg/dL (0.2-1.3); Blood Urea Nitrogen 14 mg/dL (7-17); Calcium 9.1 mg/dL (8.4-10.2); Carbon Dioxide 28 mmol/L (22-30); Chloride 101 mmol/L (98-107); Estimated CRCL calculation 55 ml/min; Estimated Glomerular Filt Rate > 60; Glucose 96 mg/dL (65-110); Lipase 115 U/L (23-300); Potassium 3.6 mmol/L (3.4-5.0); Sodium 135 mmol/L (137-145)
[2022-10-15 04:21] LABS: Add Urine Microscopic? NO
--- NOTE | 2022-10-15 04:47 | PC.NURSE ---
pt. in CT
[2022-10-15] MEDS: KETOROLAC 30 MG/ML VIAL (*BKC) 15 MG IV PUSH (04:59)
[2022-10-15] MEDS: MORPHINE SULFATE (*CRX) 4 MG/ML INJ IV PUSH (05:01)
[2022-10-15 05:10] VITALS: BP 148/100; PULSE 92; RESP 14; O2SAT 100
[2022-10-15 06:37] LABS: Reflex Lactic Acid Yes or No Add Lactic
[2022-10-15 06:40] VITALS: BP 132/75; PULSE 90; RESP 14; O2SAT 100
== END 2022-10-15 06:40 | disposition home or self-care (01) ==
PROVIDERS: Emergency Provider Emergency Medicine
DX: S46.911A Strain of unspecified muscle, fascia and tendon at shoulder and upper arm level, right arm, initial encounter (principal); S70.01XA Contusion of right hip, initial encounter; S93.401A Sprain of unspecified ligament of right ankle, initial encounter; F41.9 Anxiety disorder, unspecified; Z87.442 Personal history of urinary calculi; W01.0XXA Fall on same level from slipping, tripping and stumbling without subsequent striking against object, initial encounter
CPT/HCPCS: 36415; 70450; 71260; 72125; 73030; 73502; 73562; 73610; 74177; 80053; 81003; 83605; 83690; 83735; 85025; 96374; 96375; 99284; A4565; J1885; J2270; Q9967

== ENCOUNTER 2023-02-04 03:26 | Emergency (ER) | payer BC, SELFPAY ==
[2023-02-04 03:39] VITALS: BP 177/67; PULSE 73; RESP 14; TEMP 36.5; O2SAT 100
--- NOTE | 2023-02-04 03:41 | PC.NURSE ---
Pt states she does not want visitors or for anyone to know she is in ED
--- NOTE | 2023-02-04 06:02 | ED.GENADULT ---
HPI - General Adult General Chief complaint: Skin/Abscess/Foreign Body Stated complaint: rash, fever Time Seen by Provider: 02/04/23 04:13 History of Present Illness HPI narrative: This is a 57-year-old female presenting ED with an itchy rash on her abdomen. Patient states that she has had low fevers over the last 3 days. She then developed a rash on her abdomen. It is itchy, has central clearing with scaling skin and erythematous edge. She denies chest pain difficulty breathing URI symptoms or abdominal pain. Related Data Home Medications Medication Instructions Recorded Confirmed clonazepam 1 mg tablet 1 mg PO BID 03/14/20 12/02/20 trazodone 150 mg tablet 150 mg PO HS PRN Insomnia 03/14/20 12/02/20 alendronate 70 mg tablet 70 mg PO WEEKLY 06/09/20 12/02/20 aspirin 81 mg tablet 81 mg PO DAILY 06/09/20 12/02/20 calcium carbonate 600 mg-vitamin 1 tablet PO BID 06/09/20 12/02/20 D3 10 mcg (400 unit) tablet (Calcium 600 + D(3)) cyanocobalamin (vitamin B-12) 1,000 mcg PO DAILY 06/09/20 12/02/20 1,000 mcg tablet (Vitamin B-12) dicyclomine 10 mg capsule 10 mg PO Q8H 06/09/20 12/02/20 docusate sodium 100 mg capsule 100 mg PO DAILY 06/09/20 12/02/20 ergocalciferol (vitamin D2) 1,250 1,250 mcg PO WEEKLY 06/09/20 12/02/20 mcg (50,000 unit) capsule (Vitamin D2) folic acid 1 mg tablet 1 mg PO DAILY 06/09/20 12/02/20 levocetirizine 5 mg tablet 5 mg PO DAILY 06/09/20 12/02/20 ubrogepant 100 mg tablet (Ubrelvy) 100 mg PO DIRECTED PRN Headache 06/09/20 12/02/20 cyclobenzaprine 10 mg tablet 10 mg PO TID 10/28/20 12/02/20 meloxicam 7.5 mg tablet 7.5 mg PO BID 10/28/20 12/02/20 ondansetron HCl 4 mg tablet 4 mg PO Q8H PRN Nausea 10/28/20 12/02/20 (Zofran) sulfamethoxazole 800 1 tablet PO BID 10/28/20 12/02/20 mg-trimethoprim 160 mg tablet sumatriptan succinate 50 mg tablet 50 mg PO ONCE PRN Migraine Headache 10/28/20 12/02/20 (Imitrex) venlafaxine 150 mg tablet,extended 150 mg PO BID 10/28/20 12/02/20 release 24 hr Allergies Allergy/AdvReac Type Severity Reaction Status Date / Time adhesive tape Allergy Rash Verified 01/15/23 00:50 bupropion [From Wellbutrin] AdvReac ALTERED Verified 01/15/23 00:50 MENTAL STATUS codeine AdvReac Itching Verified 01/15/23 00:50 diphenhydramine AdvReac Jittery Verified 01/15/23 00:50 [From Benadryl] duloxetine [From Cymbalta] AdvReac ALTERED Verified 01/15/23 00:50 MENTAL STATUS gabapentin AdvReac Confusion Verified 01/15/23 00:50 sertraline [From Zoloft] AdvReac Confusion Verified 01/15/23 00:50 PMFSH Past Medical History Medical History Anxiety Endometriosis Flank pain History of kidney stones History of MRSA infection Migraine Osteoporosis PONV (postoperative nausea and vomiting) Surgical History Surgical History History of abdominal surgery History of hysterectomy Social History Social History Smoking packs per day: 1.5 Smoking cigarettes per day: 30.0 Years smoked: 12 Smoking pack-years: 18.00 Smoking status: Former smoker Tobacco type: cigarettes and e-cigarettes/vaping Additional smoking assessment comments: QUIT CIGARETTES 10 YEARS AGO, QUIT VAPING 3 MONTHS AGO Alcohol intake: never Substance use: current Substance use type: marijuana Other substance usage details: VAPE 2-3 TIMES/DAY Last use: 11/15/20 Living arrangements: with family Gender identity (if verbalized by the patient): Female Spiritual care concerns: No Exam Narrative: APPEARANCE: No apparent distress. Head: atraumatic. EYES: EOMI, NOSE: Atraumatic NECK: Trachea midline RESPIRATORY: No increased rate of breathing CARDIOVASCULAR: RRR, ABDOMINAL: Non-distended MUSCULOSKELETAl: No obvious deformities NEURO: Alert. Moving 4/4 extremities SKIN:: Patient has multipl
[2023-02-04 06:15] VITALS: PULSE 68; RESP 16; O2SAT 100
== END 2023-02-04 06:15 | disposition home or self-care (01) ==
PROVIDERS: Emergency Provider Emergency Medicine
DX: R21 Rash and other nonspecific skin eruption (principal); Z87.891 Personal history of nicotine dependence
CPT/HCPCS: 99283

== ENCOUNTER 2023-03-06 12:42 | Emergency (ER) | payer BC, SELFPAY ==
--- NOTE | ~2023-03-06 | XR_ITS ---
XR foot RT min 3V 03/06/2023 15:42 Indication: Right foot pain Procedure: 4 views right foot Comparison: No prior studies for comparison. Findings: Osteopenia. Mild osteoarthritis of the first metatarsophalangeal and tarsometatarsal joints . There is a nondisplaced extra-articular fracture proximal aspect of the fourth proximal phalanx.. N o foreign bodies. No acute fracture or traumatic malalignment. Lisfranc joint intact. Impression: 1: Nondisplaced extra-articular fracture proximal aspect of the fourth metatarsal.. Reviewed, dictated and finalized at location A. Impression: 1: Nondisplaced extra-articular fracture proximal aspect of the fourth metatars al..
[2023-03-06 13:00] VITALS: BP 122/82; PULSE 97; RESP 18; TEMP 36.5; O2SAT 98
[2023-03-06 14:59] VITALS: BP 106/65; PULSE 81; RESP 16; O2SAT 99
--- NOTE | 2023-03-06 16:26 | ED.LOWEXIN ---
HPI - Extremity Injury (Lower) General Chief Complaint: Extremity Injury, Lower Stated Complaint: right foot injury 2 weeks ago-wants xray Time Seen by Provider: 03/06/23 16:10 Source: patient and RN notes reviewed Mode of arrival: ambulatory Limitations: no limitations History of Present Illness HPI Narrative: THis is a 57 year old female who presents for evaluation of right foot pain. Patient states she accidentally dropped a landscaping block to top of her right foot 2 weeks ago. She has been using THC, tylenol for her pain. She reports pain with bearing weight. Related Data Home Medications Medication Instructions Recorded Confirmed clonazepam 1 mg tablet 1 mg PO BID 03/14/20 12/02/20 trazodone 150 mg tablet 150 mg PO HS PRN Insomnia 03/14/20 12/02/20 alendronate 70 mg tablet 70 mg PO WEEKLY 06/09/20 12/02/20 aspirin 81 mg tablet 81 mg PO DAILY 06/09/20 12/02/20 calcium carbonate 600 mg-vitamin 1 tablet PO BID 06/09/20 12/02/20 D3 10 mcg (400 unit) tablet (Calcium 600 + D(3)) cyanocobalamin (vitamin B-12) 1,000 mcg PO DAILY 06/09/20 12/02/20 1,000 mcg tablet (Vitamin B-12) dicyclomine 10 mg capsule 10 mg PO Q8H 06/09/20 12/02/20 docusate sodium 100 mg capsule 100 mg PO DAILY 06/09/20 12/02/20 ergocalciferol (vitamin D2) 1,250 1,250 mcg PO WEEKLY 06/09/20 12/02/20 mcg (50,000 unit) capsule (Vitamin D2) folic acid 1 mg tablet 1 mg PO DAILY 06/09/20 12/02/20 levocetirizine 5 mg tablet 5 mg PO DAILY 06/09/20 12/02/20 ubrogepant 100 mg tablet (Ubrelvy) 100 mg PO DIRECTED PRN Headache 06/09/20 12/02/20 cyclobenzaprine 10 mg tablet 10 mg PO TID 10/28/20 12/02/20 meloxicam 7.5 mg tablet 7.5 mg PO BID 10/28/20 12/02/20 ondansetron HCl 4 mg tablet 4 mg PO Q8H PRN Nausea 10/28/20 12/02/20 (Zofran) sulfamethoxazole 800 1 tablet PO BID 10/28/20 12/02/20 mg-trimethoprim 160 mg tablet sumatriptan succinate 50 mg tablet 50 mg PO ONCE PRN Migraine Headache 10/28/20 12/02/20 (Imitrex) venlafaxine 150 mg tablet,extended 150 mg PO BID 10/28/20 12/02/20 release 24 hr Allergies Allergy/AdvReac Type Severity Reaction Status Date / Time adhesive tape Allergy Rash Verified 03/06/23 12:43 bupropion [From Wellbutrin] AdvReac ALTERED Verified 03/06/23 12:43 MENTAL STATUS codeine AdvReac Itching Verified 03/06/23 12:43 diphenhydramine AdvReac Jittery Verified 03/06/23 12:43 [From Benadryl] duloxetine [From Cymbalta] AdvReac ALTERED Verified 03/06/23 12:43 MENTAL STATUS gabapentin AdvReac Confusion Verified 03/06/23 12:43 sertraline [From Zoloft] AdvReac Confusion Verified 03/06/23 12:43 Review of Systems Review of Systems: All systems reviewed & are unremarkable except as noted in HPI and below PMFSH Past Medical History Medical History Anxiety Endometriosis Flank pain History of kidney stones History of MRSA infection Migraine Osteoporosis PONV (postoperative nausea and vomiting) Surgical History Surgical History History of abdominal surgery History of hysterectomy Social History Social History Smoking packs per day: 1.5 Smoking cigarettes per day: 30.0 Years smoked: 12 Smoking pack-years: 18.00 Smoking status: Former smoker Tobacco type: cigarettes and e-cigarettes/vaping Additional smoking assessment comments: QUIT CIGARETTES 10 YEARS AGO, QUIT VAPING 3 MONTHS AGO Alcohol intake: never Substance use: current Substance use type: marijuana Other substance usage details: VAPE 2-3 TIMES/DAY Last use: 11/15/20 Living arrangements: with family Gender identity (if verbalized by the patient): Female Spiritual care concerns: No Exam Const: General: no acute distress and alert Nutritional Appearance: well nourished Orientation/consciousness: patient oriented x3 HENMT: Head:
[2023-03-06 17:10] VITALS: BP 120/80; PULSE 85; RESP 20; O2SAT 97
== END 2023-03-06 17:11 | disposition home or self-care (01) ==
LOC: ANHED 16:51
PROVIDERS: Emergency Provider General Practice
DX: S92.344A Nondisplaced fracture of fourth metatarsal bone, right foot, initial encounter for closed fracture (principal); F41.9 Anxiety disorder, unspecified; Z87.442 Personal history of urinary calculi; W20.8XXA Other cause of strike by thrown, projected or falling object, initial encounter
CPT/HCPCS: 73630; 99284

== ENCOUNTER 2023-04-16 13:09 | Emergency (ER) | payer BC, SELFPAY ==
--- NOTE | ~2023-04-16 | XR_ITS ---
EXAMINATION: XR chest 2V DATE: 04/16/2023 15:12 INDICATION: Cough TECHNIQUE: PA and lateral views of the chest are obtained. COMPARISON: 05/29/2021 FINDINGS: The lungs are free of acute opacities. No pleural effusion or pneumothorax. The cardiomedia stinal silhouette is normal. There is mild thoracic spondylosis. Healed left-sided rib fractures are noted. IMPRESSION: 1. No acute cardiopulmonary abnormality. Reviewed, dictated and finalized at location L.
[2023-04-16 13:27] VITALS: BP 180/88; PULSE 110; RESP 14; TEMP 36.7; O2SAT 98
[2023-04-16 14:12] LABS: Appearance Urine Clear (Clear); Bacteria Urine None Seen /hpf; Bilirubin Urine Negative (Negative); Blood Urine Negative (Negative); Color Urine Yellow (Yellow); Glucose Urine UA Negative (Negative); Ketones Urine Negative (Negative); Leukocyte Esterase Ur Trace LEU/UL (Negative); Need Manual Microscopic Reviewed; Nitrate Urine Negative (Negative); Non Pathogenic Casts 0-2; Protein Urine Negative (Negative); RBC Urine 0-2 /hpf (0-2); Specific Grav Ur 1.003 (1.001-1.035); Squamous Epithelial Cell Urine None seen /hpf (Few); Urobilinogen Urine 0.2 mg/dL (<2.0); WBC Urine 0-5 /hpf; pH Urine 6.5 (5.0-9.0)
[2023-04-16 14:18] LABS: Influenza A QL RT-PCR Negative (Negative); Influenza B QL RT-PCR Negative (Negative); SARS-CoV-2 RNA PCR Negative (Negative)
[2023-04-16 14:22] LABS: Add Urine Microscopic? YES
[2023-04-16 17:30] VITALS: BP 118/76; PULSE 88; RESP 14; O2SAT 99
[2023-04-16 18:56] VITALS: O2SAT 98
--- NOTE | 2023-04-16 18:57 | PC.NURSE ---
Pt voices concern of COVID, states has been exposed to COVID. Pt informed of negative results.
[2023-04-16 19:25] LABS: Basophils Percent Auto 0.4 % (0.2-1.2); Eosinophils Percent Auto 0.2 % (0-4.4); Hematocrit 41.7 % (37.0-47.0); Hemoglobin 13.6 g/dL (12.0-15.0); Immature Granulocyte Absolute 0.01 K/mm3 (0.00-0.031); Immature Granulocyte Percent A 0.1 % (0-0.5); Lymphocytes Absolute Auto 1.71 K/mm3 (0.9-3.2); Lymphocytes Percent Auto 17.1 % (18.3-44.2); Mean Corpuscular HGB Conc 32.6 g/dl (32-36); Mean Corpuscular Hemoglobin 30.6 pg (26-34); Mean Corpuscular Volume 93.7 fl (80-100); Mean Platelet Volume 9.4 fl (7.4-10.4); Monocytes Absolute Auto 0.5 K/mm3 (0.1-0.6); Monocytes Percent Auto 5.2 % (2.6-8.5); Neutrophils Absolute Auto 7.7 K/mm3 (1.3-6.7); Platelet Count Result 394 k/mm3 (150-375); Red Blood Count 4.45 M/mm3 (4.2-5.4); Red Cell Distribution Width 13.2 % (11.5-14.5)
[2023-04-16 19:34] LABS: Alanine Aminotransferase 27 U/L (6-35); Albumin Level 4.7 g/dL (3.5-5.1); Alkaline Phosphatase 94 U/L (38-126); Anion Gap 6 mmol/L (8-16); Aspartate Amino Transferase 38 U/L (14-36); Bilirubin,Total 0.5 mg/dL (0.2-1.3); Blood Urea Nitrogen 16 mg/dL (7-17); Calcium 9.6 mg/dL (8.4-10.2); Carbon Dioxide 31 mmol/L (22-30); Chloride 104 mmol/L (98-107); Estimated CRCL calculation 45 ml/min; Estimated Glomerular Filt Rate > 60; Glucose 109 mg/dL (65-110); Lipase 106 U/L (23-300); Potassium 4.3 mmol/L (3.4-5.0); Sodium 141 mmol/L (137-145)
--- NOTE | 2023-04-16 19:36 | ED.GENADULT ---
HPI - General Adult General Chief complaint: Upper Respiratory Infection Stated complaint: COVID S/SX Time Seen by Provider: 04/16/23 18:44 History of Present Illness HPI narrative: 57-year-old female presented emergency department for evaluation of cough congestion and diarrhea. Patient reports she was exposed to COVID multiple times by the neighbors. Patient states that she is also having some diarrhea. Related Data Home Medications Medication Instructions Recorded Confirmed clonazepam 1 mg tablet 1 mg PO BID 03/14/20 03/12/23 trazodone 150 mg tablet 150 mg PO HS PRN Insomnia 03/14/20 03/12/23 alendronate 70 mg tablet 70 mg PO WEEKLY 06/09/20 03/12/23 aspirin 81 mg tablet 81 mg PO DAILY 06/09/20 03/12/23 calcium carbonate 600 mg-vitamin 1 tablet PO BID 06/09/20 03/12/23 D3 10 mcg (400 unit) tablet (Calcium 600 + D(3)) cyanocobalamin (vitamin B-12) 1,000 mcg PO DAILY 06/09/20 03/12/23 1,000 mcg tablet (Vitamin B-12) dicyclomine 10 mg capsule 10 mg PO Q8H 06/09/20 03/12/23 docusate sodium 100 mg capsule 100 mg PO DAILY 06/09/20 03/12/23 ergocalciferol (vitamin D2) 1,250 1,250 mcg PO WEEKLY 06/09/20 03/12/23 mcg (50,000 unit) capsule (Vitamin D2) folic acid 1 mg tablet 1 mg PO DAILY 06/09/20 03/12/23 levocetirizine 5 mg tablet 5 mg PO DAILY 06/09/20 03/12/23 ubrogepant 100 mg tablet (Ubrelvy) 100 mg PO DIRECTED PRN Headache 06/09/20 03/12/23 cyclobenzaprine 10 mg tablet 10 mg PO TID 10/28/20 03/12/23 meloxicam 7.5 mg tablet 7.5 mg PO BID 10/28/20 03/12/23 ondansetron HCl 4 mg tablet 4 mg PO Q8H PRN Nausea 10/28/20 03/12/23 (Zofran) sumatriptan succinate 50 mg tablet 50 mg PO ONCE PRN Migraine Headache 10/28/20 03/12/23 (Imitrex) venlafaxine 150 mg tablet,extended 150 mg PO BID 10/28/20 03/12/23 release 24 hr Allergies Allergy/AdvReac Type Severity Reaction Status Date / Time adhesive tape Allergy Rash Verified 03/12/23 09:46 bupropion [From Wellbutrin] AdvReac ALTERED Verified 03/12/23 09:46 MENTAL STATUS codeine AdvReac Itching Verified 03/12/23 09:46 diphenhydramine AdvReac Jittery Verified 03/12/23 09:46 [From Benadryl] duloxetine [From Cymbalta] AdvReac ALTERED Verified 03/12/23 09:46 MENTAL STATUS gabapentin AdvReac Confusion Verified 03/12/23 09:46 sertraline [From Zoloft] AdvReac Confusion Verified 03/12/23 09:46 Review of Systems Review of Systems: All systems reviewed & are unremarkable except as noted in HPI and below PMFSH Past Medical History Medical History Anxiety Endometriosis Flank pain History of kidney stones History of MRSA infection Migraine Osteoporosis PONV (postoperative nausea and vomiting) Surgical History Surgical History History of abdominal surgery History of hysterectomy Family History Family History Unknown Hypertension Heart disease Diabetes mellitus Social History Social History Smoking packs per day: 1.5 Smoking cigarettes per day: 30.0 Years smoked: 12 Smoking pack-years: 18.00 Smoking status: Former smoker Tobacco type: cigarettes and e-cigarettes/vaping Additional smoking assessment comments: QUIT CIGARETTES 10 YEARS AGO, QUIT VAPING 3 MONTHS AGO Alcohol intake: never Substance use: current Substance use type: marijuana Other substance usage details: VAPE 2-3 TIMES/DAY Last use: 11/15/20 Living arrangements: with family Gender identity (if verbalized by the patient): Female Spiritual care concerns: No Exam Narrative: APPEARANCE: Well appearing, no pain, no distress, well-nourished. HEAD: normocephalic, atraumatic. EYES: PERRLA/EOMI, conjunctivae clear. NOSE: Normal no drainage EARS:TMS clear with good light reflex. THROAT: Pharynx clear, no exudate. NECK
[2023-04-16] MEDS: AMOXICILLIN/CLAVULANATE K 875-125 MG TAB 1 TABLET PO (21:07)
== END 2023-04-16 20:58 | disposition home or self-care (01) ==
PROVIDERS: Emergency Provider Emergency Medicine
DX: J18.9 Pneumonia, unspecified organism (principal); Z87.891 Personal history of nicotine dependence; Z20.822 Contact with and (suspected) exposure to COVID-19
CPT/HCPCS: 36415; 71046; 80053; 81001; 83690; 85025; 87636; 99283; A9270

== ENCOUNTER 2023-05-13 16:06 | Outpatient (CLI) | payer BC, SELFPAY ==
--- NOTE | ~2023-05-13 | CT_ITS ---
EXAMINATION: CT abdomen pelvis w con DATE: 05/13/2023 17:03 INDICATION: Flank pain. Kidney calculus. TECHNIQUE: Computed tomography (CT) of the abdomen and pelvis was performed without intravenous contr ast. Automated exposure control and iterative reconstruction technique were employed. Exam dose: 175 .43 mGy-cm total exam DLP. COMPARISON: 10/15/2022 CT chest abdomen pelvis FINDINGS: There is mild discoid scarring at the lung bases. The lung bases are clear of infiltrate o r consolidation. Normal heart size. No pericardial or pleural effusion. The gallbladder is contracted. No hepatic or splenic, pancreatic, and adrenal or renal space-occupyin g mass lesion is evident. There are a couple of small cysts of the left kidney. No right renal calcul us. There are 4 small nonobstructing left renal calculi, the largest approximately 3.3 mm. No uretera l calculus or hydroureteronephrosis. There is extensive calcification but normal caliber of the abdominal aorta. No intraperitoneal or ret roperitoneal or pelvic mass lesion or adenopathy or ascites is detected. The urinary bladder is relatively evacuated. Status post hysterectomy. There are suture lines in the small bowel and rectosigmoid area as noted on 10/15/2022. No bowel obstru ction, bowel wall thickening, pneumatosis or intraperitoneal free air is detected. No suspicious osteolytic or osteoblastic lesions. IMPRESSION: Nonobstructive left nephrolithiasis Small left renal cysts Reviewed, dictated and finalized at [facility]. Reviewed, dictated and finalized at location B.
[2023-05-13 16:37] LABS: Basophils Percent Auto 0.4 % (0.2-1.2); Eosinophils Absolute Auto 0.1 K/mm3 (0-0.3); Eosinophils Percent Auto 0.4 % (0-4.4); Hematocrit 44.1 % (37.0-47.0); Hemoglobin 14.1 g/dL (12.0-15.0); Immature Granulocyte Absolute 0.04 K/mm3 (0.00-0.031); Immature Granulocyte Percent A 0.4 % (0-0.5); Lymphocytes Absolute Auto 1.81 K/mm3 (0.9-3.2); Lymphocytes Percent Auto 16.2 % (18.3-44.2); Mean Corpuscular Hemoglobin 30.5 pg (26-34); Mean Corpuscular Volume 95.5 fl (80-100); Mean Platelet Volume 9.7 fl (7.4-10.4); Monocytes Absolute Auto 0.7 K/mm3 (0.1-0.6); Monocytes Percent Auto 6.2 % (2.6-8.5); Neutrophils Absolute Auto 8.6 K/mm3 (1.3-6.7); Neutrophils Percent Auto 76.4 % (45.5-73.1); Platelet Count Result 435 k/mm3 (150-375); Red Blood Count 4.62 M/mm3 (4.2-5.4); Red Cell Distribution Width 13.1 % (11.5-14.5); White Blood Count 11.2 K/mm3 (4.5-10.0)
[2023-05-13 16:48] LABS: Alanine Aminotransferase 28 U/L (6-35); Albumin Level 5.1 g/dL (3.5-5.1); Alkaline Phosphatase 83 U/L (38-126); Anion Gap 12 mmol/L (8-16); Aspartate Amino Transferase 38 U/L (14-36); Bilirubin,Total 0.6 mg/dL (0.2-1.3); Blood Urea Nitrogen 14 mg/dL (7-17); Calcium 9.5 mg/dL (8.4-10.2); Carbon Dioxide 25 mmol/L (22-30); Chloride 104 mmol/L (98-107); Estimated Glomerular Filt Rate 57; Glucose 62 mg/dL (65-110); Potassium 3.6 mmol/L (3.4-5.0); Sodium 141 mmol/L (137-145); Uric Acid 4.8 mg/dL (2.5-7.5)
[2023-05-13 17:10] LABS: Appearance Urine Clear (Clear); Bilirubin Urine Negative (Negative); Blood Urine Negative (Negative); Color Urine Yellow (Yellow); Glucose Urine UA Negative (Negative); Ketones Urine Negative (Negative); Leukocyte Esterase Ur Negative LEU/UL (Negative); Nitrate Urine Negative (Negative); Protein Urine Negative (Negative); Specific Grav Ur 1.008 (1.001-1.035); Urobilinogen Urine 0.2 mg/dL (<2.0)
[2023-05-13 17:20] LABS: Add Urine Microscopic? NO
== END 2023-05-13 16:07 | disposition home or self-care (01) ==
PROVIDERS: Visit Provider Nurse Practitioner Adult Health
DX: R10.9 Unspecified abdominal pain (principal); N20.0 Calculus of kidney; Q61.02 Congenital multiple renal cysts
CPT/HCPCS: 36415; 74177; 80053; 81003; 84550; 85025; Q9967

== ENCOUNTER 2023-09-04 16:10 | Inpatient (IN) | payer MEDICARE, SELFPAY ==
[2023-09-04] VITALS (11 sets, daily range): BP systolic 149–184; BP diastolic 84–98; PULSE 81–100; RESP 17–20; TEMP 36.6–36.8; O2SAT 99–100; BMI 18.1
--- NOTE | ~2023-09-04 | CT_ITS ---
EXAMINATION: CT abdomen pelvis w con DATE: 09/05/2023 10:03 INDICATION: Abdominal pain TECHNIQUE: Computed tomography (CT) of the abdomen and pelvis was performed with 100 mL Omnipaque-350 intravenous contrast. Automated exposure control and iterative reconstruction technique were employe d. The dose-length product was 207.70 mGy-cm. COMPARISON: 05/13/2023 FINDINGS: Minimal bibasilar atelectasis. Heart size is normal. No pericardial or pleural effusion. There is suzanne e vicariously excreted contrast in the normal-appearing gallbladder. Liver, spleen, pancreas, bilater al adrenal glands and right kidney are normal. A few unchanged subcentimeter low-attenuation cysts in the left kidney. No interval change in 4 nonobstructing 1-2 mm stones in the left kidney which are l ess clearly visualized due to some distortion from a minimal amount of motion. Postoperative change o f prior partial colectomy with [id number] anastomosis at the distal sigmoid colon. Additional sutur e line along the small bowel in the left abdomen. Multiple tiny metallic foreign bodies in the subcut aneous tissues at the lateral left pelvis. Bladder is normal. The uterus is not identified and has stephen vogel been surgically resected. No free intraperitoneal gas or fluid. No pathologically enlarged abdom inal or pelvic lymphadenopathy. There is calcified atherosclerosis of the aorta and many of the other arteries. A few scattered small sclerotic bone islands in the pelvis and proximal femurs. IMPRESSION: 1. No acute intra-abdominal/pelvic process. 2. No interval change in 4 nonobstructing tiny left renal stones. Reviewed, dictated and finalized at location A. DIALYSIS CHARGE NURSE
--- NOTE | ~2023-09-04 | MR_ITS ---
EXAMINATION: MR brain/brain stem wo/w con DATE: 09/04/2023 19:07 INDICATION: Cerebrovascular accident. Decreased sensation of left face, arm, and leg. TECHNIQUE: Magnetic resonance imaging (MRI) of the brain and brainstem was performed without and with 9 mL MultiHance intravenous contrast. COMPARISON: Head CT 09/04/2023 FINDINGS: There is no intracranial hemorrhage, acute infarction, or abnormal intracranial mass lesion . The ventricles are normal in size. The paranasal sinuses are clear. The mastoid air cells are peggy l. The orbits are normal. IMPRESSION: 1. Normal brain. Reviewed, dictated and finalized at location E. AND CREAM GRADER IMPRESSION: 1. Normal brain.
--- NOTE | ~2023-09-04 | CT_ITS ---
EXAMINATION: CTA brain carotid DATE: 09/04/2023 16:59 INDICATION: Left hemiparesis. TECHNIQUE: Computed tomographic angiography (CTA) of the head was performed with 100 mL Omnipaque-350 intravenous contrast. CTA of the neck was performed with intravenous contrast. Automated exposure co ntrol and iterative reconstruction technique were employed. The dose-length product was 1024.41 mGy-c m. Maximum intensity projection and volume rendered 3D-reconstructions were created by the [facility] on a separate workstation. COMPARISON: Head CT 09/04/2023 FINDINGS: HEAD CTA: There is no intracranial hemorrhage, acute infarction, or abnormal intracranial mass lesion . The ventricles are normal in size. There is mild mucosal thickening in the ethmoid sinuses. The mas toid air cells are normal. The orbits are normal. Left vertebral artery is dominant. There is no sign ificant stenosis of basilar artery or the posterior cerebral arteries. The posterior communicating ar teries are normal. There is no significant stenosis of intracranial internal carotid arteries or ante rior or middle cerebral arteries. Anterior communicating artery is normal. There is no aneurysm. NECK CTA: There is mild emphysema. There is mild scarring at the lung apices. There are no pathologic ally enlarged lymph nodes. There is no significant stenosis of the vertebral arteries. There is plaqu e in the proximal internal carotid arteries. There is 41% stenosis of the proximal right internal car otid artery relative to normal distal artery lumen diameter (NASCET criteria). There is 0% stenosis o f the proximal left internal carotid artery relative to normal distal artery lumen diameter. There is severe cervical spondylosis. IMPRESSION: 1. Normal brain. 2. No aneurysm or significant intracranial arterial stenosis. 3. 41% stenosis of the proximal right internal carotid artery relative to normal distal artery lumen diameter (NASCET criteria). 4. 0% stenosis of the proximal left internal carotid artery relative to normal distal artery lumen di ameter. Reviewed, dictated and finalized at location E. D SUPERVISOR IMPRESSION: 1. Normal brain. 2. No aneurysm or significant intracranial arterial stenosis. 3. 41% stenosis of the proximal right internal carotid artery relative to peggy l distal artery lumen diameter (NASCET criteria). 4. 0% stenosis of the proximal left internal carotid artery relative to normal distal artery lumen diameter.
--- NOTE | ~2023-09-04 | XR_ITS ---
EXAMINATION: XR chest 1V portable DATE: 09/04/2023 17:59 INDICATION: Cerebral vascular accident. TECHNIQUE: A single frontal view of the chest was obtained on 2 radiographs. COMPARISON: Chest 2 views 04/16/2023, chest CT 10/15/2022 FINDINGS: There is a staple line in left lung apex. There is mild scarring at right lung apex. No ple ural effusion or pneumothorax. The heart size is normal. There are old healed left rib fractures. IMPRESSION: 1. Stable mild scarring at right lung apex. Reviewed, dictated and finalized at location E. FABRIC MACHINE OPERATOR
--- NOTE | ~2023-09-04 | CT_ITS ---
EXAMINATION: CT brain wo con DATE: 09/04/2023 16:27 INDICATION: Stroke with left-sided numbness TECHNIQUE: Computed tomography (CT) of the head was performed without intravenous contrast. Sagittal and coronal reconstructions were performed. The mA was adjusted according to patient size. Iterative reconstruction technique was employed. The dose-length product was 605.33 mGy-cm. COMPARISON: head CT dated 10/15/2022 FINDINGS: No acute intracranial hemorrhage, acute infarction or abnormal extra axial fluid collection. Ventricl es are normal and symmetric. No mass/mass effect. The orbits and mastoid air cells are normal. Mild m ucosal thickening in the right ethmoid sinus. IMPRESSION: 1. Normal brain. Reviewed, dictated and finalized at location A. A SALES CONSULTANT IMPRESSION: 1. Normal brain.
--- NOTE | ~2023-09-04 | XR_ITS ---
Portable chest x-ray Comparison: 09/04/2023 Clinical History: Status change Findings: Lungs are clear, without focal consolidation or pleural effusion. Probable COPD. Cardiome diastinal silhouette is stable. Bones and soft tissues are unremarkable. Impression: Clear lungs. Probable COPD. Reviewed, dictated and finalized at [facility]. GION TEACHER Impression: Clear lungs. Probable COPD.
--- NOTE | ~2023-09-04 | CT_ITS ---
EXAMINATION: CT brain wo con DATE: 09/05/2023 10:03 INDICATION: Change in mental status TECHNIQUE: Computed tomography (CT) of the head was performed without intravenous contrast. Sagittal and coronal reconstructions were performed. The mA was adjusted according to patient size. Iterative reconstruction technique was employed. The dose-length product was 605.33 mGy-cm. COMPARISON: head CT, CT angiogram and MRI dated 09/04/2023 FINDINGS: No acute intracranial hemorrhage, acute infarction or abnormal extra axial fluid collection. Ventricl es are normal and symmetric. No mass/mass effect. The orbits, paranasal sinuses and mastoid air cells are normal. IMPRESSION: 1. Normal head CT. Reviewed, dictated and finalized at location A. HES PRESSER IMPRESSION: 1. Normal head CT.
--- NOTE | 2023-09-04 16:13 | ECG_ITS ---
Measurements Intervals [place] Rate: 93 P: 57 MT: 177 QRS: 83 QRSD: 86 T: 57 QT: 361 QTc: 449 Interpretive Statements SINUS RHYTHM BORDERLINE ST ABNORMALITY- INF/LAT LEADS BASELINE ARTIFACT- II, III, AVR, AVL, AVF BORDERLINE ECG COMPARED TO ECG 01/15/2023 01:47:00 NO SIGNIFICANT CHANGES Electronically Signed On 09-04-2023 18:17:00 SPARK TESTER by Yakov Quintana D.O.
--- NOTE | 2023-09-04 16:14 | ED.GENADULT ---
HPI - General Adult General Chief complaint: Neuro Symptoms/Deficit Stated complaint: Neuro symptoms Time Seen by Provider: 09/04/23 16:22 History of Present Illness HPI narrative: 57-year-old female presenting to the emergency department for evaluation of decreased sensation over her left face arm and leg. Symptoms started approximately 10 minutes prior to arrival so approximately 4:00 p.m. Patient described having some numbness in her left hand and then when she looked in the mirror she noticed that she had some left-sided facial droop. Upon arrival emergency department patient states that her symptoms are improving but does still have some decreased sensation over her left face. Patient also describes some left leg heaviness. Related Data Home Medications Medication Instructions Recorded Confirmed clonazepam 1 mg tablet 1 mg PO BID 03/14/20 05/16/23 aspirin 81 mg tablet 81 mg PO DAILY 06/09/20 05/16/23 calcium carbonate 600 mg-vitamin 1 tablet PO BID 06/09/20 05/16/23 D3 10 mcg (400 unit) tablet (Calcium 600 + D(3)) cyanocobalamin (vitamin B-12) 1,000 mcg PO DAILY 06/09/20 05/16/23 1,000 mcg tablet (Vitamin B-12) ergocalciferol (vitamin D2) 1,250 1,250 mcg PO WEEKLY 06/09/20 05/16/23 mcg (50,000 unit) capsule (Vitamin D2) folic acid 1 mg tablet 1 mg PO DAILY 06/09/20 05/16/23 Allergies Allergy/AdvReac Type Severity Reaction Status Date / Time adhesive tape Allergy Rash Verified 03/12/23 09:46 bupropion [From Wellbutrin] AdvReac ALTERED Verified 03/12/23 09:46 MENTAL STATUS codeine AdvReac Itching Verified 03/12/23 09:46 diphenhydramine AdvReac Jittery Verified 03/12/23 09:46 [From Benadryl] duloxetine [From Cymbalta] AdvReac ALTERED Verified 03/12/23 09:46 MENTAL STATUS gabapentin AdvReac Confusion Verified 03/12/23 09:46 sertraline [From Zoloft] AdvReac Confusion Verified 03/12/23 09:46 Review of Systems Review of Systems: All systems reviewed & are unremarkable except as noted in HPI and below PMFSH Past Medical History Medical History Anxiety Endometriosis Flank pain History of kidney stones History of MRSA infection Migraine Osteoporosis PONV (postoperative nausea and vomiting) Surgical History Surgical History History of abdominal surgery History of hysterectomy Family History Family History Unknown Hypertension Heart disease Diabetes mellitus Social History Social History Smoking packs per day: 1.5 Smoking cigarettes per day: 30.0 Years smoked: 12 Smoking pack-years: 18.00 Smoking status: Former smoker Tobacco type: cigarettes and e-cigarettes/vaping Additional smoking assessment comments: QUIT CIGARETTES 10 YEARS AGO, QUIT VAPING 3 MONTHS AGO Alcohol intake: never Substance use: current Substance use type: marijuana Other substance usage details: VAPE 2-3 TIMES/DAY Last use: 11/15/20 Living arrangements: with family Gender identity (if verbalized by the patient): Female Spiritual care concerns: No Exam Narrative: APPEARANCE: Well appearing, no pain, no distress, well-nourished. HEAD: normocephalic, atraumatic. EYES: PERRLA/EOMI, conjunctivae clear. NOSE: Normal no drainage EARS:TMS clear with good light reflex. THROAT: Pharynx clear, no exudate. NECK: Supple. No adenopathy, no masses. RESPIRATORY: Airway patent, respirations nonlabored. Clear to auscultation bilaterally, no rales, rhonchi, wheezing. CARDIOVASCULAR: Regular rate and rhythm without murmurs rubs or gallops. ABDOMINAL: Soft, nontender, nondistended, normal bowel sounds MUSCULOSKELETAL: Moves all extremities. Strength/ROM intact, No edema, No calf tenderness. NEURO: Alert. Cranial nerves II through XII intact. No facial droop, no
[2023-09-04 16:16] LABS: Glucose Point of Care 99 mg/dl (65-105)
[2023-09-04 16:28] LABS: Estimated Glomerular Filt Rate 57
[2023-09-04 17:05] LABS: Basophils Percent Auto 0.6 % (0.2-1.2); Eosinophils Absolute Auto 0.1 K/mm3 (0-0.3); Eosinophils Percent Auto 1.4 % (0-4.4); Hematocrit 35.7 % (37.0-47.0); Hemoglobin 11.5 g/dL (12.0-15.0); Immature Granulocyte Absolute 0.01 K/mm3 (0.00-0.031); Immature Granulocyte Percent A 0.1 % (0-0.5); Lymphocytes Absolute Auto 1.54 K/mm3 (0.9-3.2); Lymphocytes Percent Auto 21.3 % (18.3-44.2); Mean Corpuscular HGB Conc 32.2 g/dl (32-36); Mean Corpuscular Volume 93.2 fl (80-100); Mean Platelet Volume 9.9 fl (7.4-10.4); Monocytes Absolute Auto 0.5 K/mm3 (0.1-0.6); Monocytes Percent Auto 7.3 % (2.6-8.5); Neutrophils Percent Auto 69.3 % (45.5-73.1); Platelet Count Result 349 k/mm3 (150-375); Red Blood Count 3.83 M/mm3 (4.2-5.4); Red Cell Distribution Width 12.9 % (11.5-14.5); White Blood Count 7.2 K/mm3 (4.5-10.0)
[2023-09-04 17:14] LABS: Prothrombin Time 13.3 Seconds (11.1-14.7)
[2023-09-04 17:15] LABS: Partial Thromboplastin Time 27.3 SECONDS (22.3-36.8)
[2023-09-04 17:21] LABS: Alanine Aminotransferase 19 U/L (6-35); Albumin Level 3.7 g/dL (3.5-5.1); Alkaline Phosphatase 72 U/L (38-126); Anion Gap 8 mmol/L (8-16); Aspartate Amino Transferase 29 U/L (14-36); Bilirubin,Total 0.3 mg/dL (0.2-1.3); Blood Urea Nitrogen 15 mg/dL (7-17); Calcium 9.2 mg/dL (8.4-10.2); Carbon Dioxide 26 mmol/L (22-30); Chloride 106 mmol/L (98-107); Estimated CRCL calculation 45 ml/min; Estimated Glomerular Filt Rate > 60; Glucose 91 mg/dL (65-110); Potassium 3.4 mmol/L (3.4-5.0); Sodium 140 mmol/L (137-145)
[2023-09-04] MEDS: ASPIRIN 81 MG CHEWABLE TABLET 324 MG PO (17:29)
[2023-09-04 17:33] LABS: Troponin I 0.016 ng/mL (0.000-0.034)
[2023-09-04 17:43] LABS: Influenza A QL RT-PCR Negative (Negative); Influenza B QL RT-PCR Negative (Negative); RSV RNA, RT-PCR Negative (Negative); SARS-CoV-2 RNA PCR Positive (Negative)
[2023-09-04] MEDS: CLOPIDOGREL BISULFATE 300 MG TABLET PO (18:06)
--- NOTE | 2023-09-04 18:32 | PC.NURSE ---
Pt taken to MRI
--- NOTE | 2023-09-04 19:05 | PC.NURSE ---
pt returned to room h3 from mri
--- NOTE | 2023-09-04 23:55 | ADMGEN ---
This patient, Madison Weinberg, was admitted to 2 Medical Room 260-01. Patient/family oriented to hospital policies and general routines including ID bracelet, bed and alarms, visiting hours, pain management, procedures, bathroom and other care routines, personal items, smoking policy, room service/diet, and visiting hours. Information on how to activate the Rapid Response Team has been discussed. Patient/Family are encouraged to report perceived risks to care and to ask questions if they do not understand what they are told or what they should do.
[2023-09-05] VITALS (21 sets, daily range): BP systolic 54–171; BP diastolic 36–81; PULSE 58–95; RESP 16–18; TEMP 36–37; O2SAT 100; BMI 18.3
--- NOTE | 2023-09-05 00:14 | PM.IMHP ---
H&P: HPI History of Present Illness Date/Time: 09/04/23 23:00 Chief Complaint: Left-sided paresthesias and weakness. Narrative: This is a 57-year-old female with history of kidney stones, C diff, endometriosis, and multiple bowel obstructions who presented to the emergency department for evaluation of left-sided paresthesias and weakness. The patient provides the following history. It is not unusual for her to have intermittent abdominal pain and she reports having over 30 abdominal surgery. Not long prior to arrival she developed a sudden sharp pain in her abdomen, again which is not unusual, but shortly thereafter she developed paresthesias throughout the entire left side of her body including head, lips, arm, and leg. She was standing on a step ladder at that time and when she got down and went to walk across the room she felt as though her left foot was clumsy and the left leg was heavy. On arrival to triage it was documented that she had some facial asymmetry on the left though that resolved. Her symptoms seem to improve somewhat while in the ED with an NIH stroke scale of 2. ED physician spoke with the stroke team at [facility] and given her low score she was not accepted for emergent transfer and would not be a candidate for tPA. She was excepted as a non time critical transfer to [facility] but they recommended that she be admitted here for neurology consultation an MRI. It was also recommended that she be started on aspirin and Plavix. At the time my evaluation she is still having the paresthesias. She denies vertigo, vision changes, difficulty speaking and swallowing, and current focal weakness. She also denies chest pain, palpitations and history of irregular heartbeat. Since arrival to the ED her blood pressures have been running in the 140s to 160s systolic. She denies prior history of hypertension. CT of the brain showed no acute findings, no aneurysm, no significant stenosis, but did note 41% stenosis in the proximal right internal carotid artery. She is being admitted in this setting for further evaluation as above. Incidentally the patient tested positive for COVID. She denies fever, sinus congestion, sore throat, cough, aches, etc.. Review of Systems Review of Systems: Twelve systems were reviewed. She has frequent issues with her bowels due to multiple surgeries. Due to scar tissue she has narrowing of the bowels which forces her to keep her stools very loose so that they can pass. She is due for colonoscopy and has always been told that she needs to have that done at a tertiary care facility given her history. Occasionally she has bright red blood in the stool which she attributes to probable hemorrhoids. Except as documented, all other systems were reviewed and are negative. [facility] Past Medical History Medical History (Updated 09/05/23 @ 00:22 by Ema Gonzáles PA-C) Anxiety Bowel obstruction Endometriosis Flank pain History of kidney stones History of MRSA infection Migraine Osteoporosis PONV (postoperative nausea and vomiting) Surgical History Surgical History (Updated 09/05/23 @ 00:19 by Ema Gonzáles PA-C) History of abdominal surgery History of colon resection History of colostomy reversal History of hysterectomy Family History Family History Unknown No problems noted. Mother Diabetes mellitus Heart disease Hypertension Mother No problems noted. Father Heart disease Hypertension Social History Social History (Updated 09/05/23 @ 00:20 by Ema Gonzáles PA-C) Social History: Surrogate medical decision maker: Sarahy Fairchild, daughter. Code status: Full code. Smoking packs per day: 1.5 Smoking cigarettes per day: 30.0 Years smoked: 12 Smoking pack-years: 18.00 Smoking status: Former smoker Tobacco type: e-cigarettes/vaping Additional smoking assessment comments: QUIT CIGARETTES 10 YEARS A
--- NOTE | 2023-09-05 00:25 | ECHO_ITS ---
Patient Info Name: Madison Weinberg Age: 57 years : 1965 Gender: Female Ht: 63 in Wt: 145 lbs BSA: 1.72 m2 HR: 60 bpm BP: 123 / 81 mmHg Heart Rhythm: Sinus Rhythm Technical Quality: Good Exam Date: 09/05/2023 10:28 AM Exam Location: Echo Lab Patient Status: Inpatient Admit Date: 09/05/2023 Staff Ordering Physician: Ema Gonzáles PA-C Shirt Operator: Kevin Oquendo RDCS Attending Provider: Nichole Heard Referring Physician: Nivia BLACKMAN; Exam Type: CA echo doppler color flow Study Info Indications - TIA, htn Complete two-dimensional, color flow and Doppler transthoracic echocardiogram is performed with agitated saline. Summary 1. Left atrial chamber dimension is mildly enlarged. 2. There is mild mitral valve regurgitation. 3. There is mild tricuspid valve regurgitation. 4. Intact interatrial septum visualized by color flow and agitated saline imaging. 5. Left ventricular chamber dimension is normal. 6. Left ventricular systolic function is normal, estimated at 60-65%. 7. There is mildly increased left ventricular wall thickness. 8. The left ventricular diastolic function is grade I diastolic dysfunction. 9. Heavy trabeculation is seen in the left ventricular apex. Recommend Definity contrast. Left Ventricle Left ventricular chamber dimension is normal. Left ventricular systolic function is normal, estimated at 60-65%. There is mildly increased left ventricular wall thickness. The left ventricular diastolic function is grade I diastolic dysfunction. Heavy trabeculation is seen in the left ventricular apex. Recommend Definity contrast. Right Ventricle Right ventricular chamber dimension is normal. Right ventricular systolic function is normal. Left Atria Left atrial chamber dimension is mildly enlarged. Right Atria Right atrial chamber dimension is normal. Atrial Septum Intact interatrial septum visualized by color flow and agitated saline imaging. Aortic Valve The aortic valve is trileaflet. There is mild aortic valve sclerosis. There is no aortic valve stenosis. There is trace aortic valve regurgitation. Pulmonic Valve The pulmonic valve is normal. There is no pulmonic valve stenosis. There is trace pulmonic regurgitation. Mitral Valve The mitral valve has normal leaflets. There is no mitral valve stenosis. There is mild mitral valve regurgitation. Tricuspid Valve The tricuspid valve leaflets are normal. There is no significant tricuspid valve stenosis. There is mild tricuspid valve regurgitation. No pulmonary hypertension, estimated pulmonary arterial systolic pressure is 22 mmHg. Pericardium/Pleural The pericardium appears normal. There is no pericardial effusion. Inferior Vena Cava Normal inferior vena cava with >50% collapse upon inspiration consistent with normal right atrial pressure, 10 mmHg. Aorta The aortic root size at the sinus of Valsalva is normal. Left Ventricular Outflow Tract Name Value Normal LVOT 2D LVOT Diameter 1.6 cm LVOT Doppler LVOT Peak Gradient 3 mmHg LVOT Mean Gradient 2 mmHg LVOT VTI 24 cm LVOT VTI/AV
[2023-09-05] MEDS: MORPHINE SULFATE (*CRX) 2 MG/ML INJ IV PUSH ×2 (00:27→21:08)
[2023-09-05] MEDS: clonazePAM (*CRX) 0.5 MG TABLET PO ×6 (00:52→23:39)
[2023-09-05] MEDS: traZODone HCL 50 MG TABLET 150 MG PO (00:52)
[2023-09-05] MEDS: CYCLOBENZAPRINE HCL 10 MG TABLET PO ×2 (00:52→09:46)
[2023-09-05 05:28] LABS: Cholesterol 181 mg/dL (0-200); HDL Direct 54 mg/dL; Triglycerides 96 mg/dL (<150)
--- NOTE | 2023-09-05 05:28 | ECG_ITS ---
Measurements Intervals [place] Rate: 47 P: 59 VA: 138 QRS: 87 QRSD: 77 T: 98 QT: 533 QTc: 473 Interpretive Statements SINUS BRADYCARDIA MINIMAL Q WAVES- INFERIOR LEADS ST-T WAVE ABNORMALITY IN HIGH LATERAL LEADS- CONSIDER ISCHEMIA PROLONGED QT INTERVAL BASELINE ARTIFACT- I, II ABNORMAL ECG COMPARED TO ECG 09/04/2023 17:20:32 SINUS BRADYCARDIA NOW PRESENT ST-T WAVE ABNORMALITY NOW PRESENT PROLONGED QT INTERVAL NOW PRESENT Electronically Signed On 09-05-2023 6:59:15 CHIEF SECURITY OFFICER by Yakov Quintana D.O.
[2023-09-05 05:35] LABS: Basophils Percent Auto 0.6 % (0.2-1.2); Eosinophils Absolute Auto 0.1 K/mm3 (0-0.3); Eosinophils Percent Auto 2.1 % (0-4.4); Hematocrit 38.2 % (37.0-47.0); Hemoglobin 12.1 g/dL (12.0-15.0); Immature Granulocyte Absolute 0.02 K/mm3 (0.00-0.031); Immature Granulocyte Percent A 0.4 % (0-0.5); Lymphocytes Percent Auto 30.1 % (18.3-44.2); Mean Corpuscular HGB Conc 31.7 g/dl (32-36); Mean Corpuscular Volume 94.8 fl (80-100); Mean Platelet Volume 9.7 fl (7.4-10.4); Monocytes Absolute Auto 0.4 K/mm3 (0.1-0.6); Monocytes Percent Auto 7.1 % (2.6-8.5); Neutrophils Absolute Auto 3.2 K/mm3 (1.3-6.7); Neutrophils Percent Auto 59.7 % (45.5-73.1); Platelet Count Result 331 k/mm3 (150-375); Red Blood Count 4.03 M/mm3 (4.2-5.4); White Blood Count 5.3 K/mm3 (4.5-10.0)
[2023-09-05 05:39] LABS: LDL Cholesterol Direct 101 mg/dL
[2023-09-05 05:43] LABS: Glucose Point of Care 112 mg/dl (65-105)
[2023-09-05] MEDS: SODIUM CHLORIDE 0.9% IV 1,000 ML 999 ML IV CONT ×2 (05:50)
[2023-09-05 05:52] LABS: Appearance Urine Clear (Clear); Bilirubin Urine Negative (Negative); Blood Urine Negative (Negative); Color Urine Yellow (Yellow); Glucose Urine UA Negative (Negative); Ketones Urine Negative (Negative); Leukocyte Esterase Ur Negative LEU/UL (NEGATIVE); Nitrate Urine Negative (Negative); Protein Urine Negative (Negative); Specific Grav Ur 1.032 (1.001-1.035); Urobilinogen Urine 0.2 mg/dL (<2.0); pH Urine 6.5 (5.0-9.0)
[2023-09-05 05:54] LABS: Add Urine Microscopic? NO
[2023-09-05 06:07] LABS: Anion Gap 9 mmol/L (8-16); Blood Urea Nitrogen 13 mg/dL (7-17); Calcium 9.3 mg/dL (8.4-10.2); Carbon Dioxide 21 mmol/L (22-30); Chloride 110 mmol/L (98-107); Estimated CRCL calculation 46 ml/min; Estimated Glomerular Filt Rate > 60; Glucose 97 mg/dL (65-110); Magnesium 1.8 mg/dL (1.6-2.3); Potassium 3.4 mmol/L (3.4-5.0); Sodium 140 mmol/L (137-145)
--- NOTE | 2023-09-05 06:18 | PC.NURSE ---
0520 RAPID RESPONSE CALLED BP READING 50'S/30'S. FASHION CONSULTANT SELLING NOTIFIED ME PT BP WAS LOW. PT WAS RESPONSIVE ANSWERING QUESTIONS APPROPRIATELY. STATING SHE FELT LIGHTHEADED, DIZZY AND HOT. ENTERED ROOM FASHION CONSULTANT SELLING WAS TAKING MANUAL BP AND STATED SHE COULD NOT HEAR BP. I THEN TOOK THE MANUAL BP AND ENCOUNTERED THE SAME ISSUE. CHARGE NURSE ALSO IN ROOM PERFORMED MANUAL BP. WITH NO SUCCESS IN GETTING AN ACCURATE BP WE RETRIEVED DOPPLER TO ATTEMPT TO HEAR CLEARER. RAPID RESPONSE TEAM ARRIVED. ORDERED 1L BOLUS AND LABS TO BE ORDERED. STAT CXR AND EKG WERE ALSO TAKEN. REQUESTED ANOTHER IV TO BE STARTED ON PT FOR 2ND 1L BOLUS TO GO AT SAME TIME. MAINTENANCE FLUIDS ALSO ORDERED TO START AFTER BOLUS. PT BLOOD PRESSURE DID IMPROVED BUT ORDERS WERE GIVEN TO MOVE THE PT TO IMU. PT TO TRANSFER TO ROOM 213. PT APPEARS COMFORTABLE IN BED STATING SHE JUST FEELS COLD. ALERT AND ORIENTED NO COMPLAINTS OF PAIN. SBAR FAXED.
[2023-09-05 06:27] LABS: Lactic Acid Reflex 2.4 mmol/L (0.7-2.0)
[2023-09-05 06:34] LABS: Folic Acid 15.3 ng/mL (2.76->20)
--- NOTE | 2023-09-05 06:34 | PCCARD ---
ECHO ORDER CHANGED TO REGULAR ECHO WITHOUT BUBBLE STUDY DUE TO THE PATIENT POSITIVE FOR COVID.
--- NOTE | 2023-09-05 06:35 | P.PNCROSS_ITS ---
Event Note Event Note Event Note: A rapid response was called on disposition was admitted for acute CVA yesterday with and low NIH of 2 and total negative workup including brain MRI. She was also found to be COVID positive yesterday. At about 5:00 a.m. patient was noted to be diaphoretic and had very low blood pressure with systolic in 50s. Rapid response was called and on arrival patient was awake height and oriented in person place and time however, lethargic, repeated blood pressure measurement from different site continued to be low. She denied any new symptoms except weakness and diaphoresis. Normal saline bolus was initiated, EKG showed sinus bradycardia, inverted T-wave on aVL V1 V2, prolonged QT and QTC. With no acute ST T wave changes. CBC has no significant negative finding, lactic acid is 2.4, UA not suggestive of UTI, other labs that are pending include comprehensive, troponin, chest x-ray, CT scan of the head abdomen pelvis. Patient responded to fluid boluses, and she is placed on maintenance, 2 g of magnesium sulfate ordered to be given over 15-30 minutes, patient will be tr ansferred to IMU for close monitoring. Also consulted security software engineer regarding potential transfer to ICU however he wants patient to be monitored in IMU and subsequently move to the unit if blood pressure drops again Diagnosis: Hypotension unspecified.
--- NOTE | 2023-09-05 07:25 | PC.NURSE ---
Patient transferred to IMU [id number]
[2023-09-05 09:14] LABS: Reflex Lactic Acid Yes or No Add Lactic
[2023-09-05] MEDS: HYDROcodone/acetaminophen (*CRX) 5-325 MG TABLET 1 TAB PO (09:44)
[2023-09-05] MEDS: DOCUSATE SODIUM 100 MG CAPSULE PO ×2 (09:46→18:05)
[2023-09-05] MEDS: MULTIVITAMINS /C LUTEIN (CENTRUM SILVER) TABLET *BKC 1 TAB PO (09:46)
[2023-09-05] MEDS: ASPIRIN 81 MG CHEWABLE TABLET PO (09:46)
[2023-09-05] MEDS: CLOPIDOGREL BISULFATE 75 MG TABLET PO (09:47)
[2023-09-05] MEDS: MAGNESIUM SULF 2 GM/WATER 50ML 2 GM/50 ML BAG IVPB (09:47)
[2023-09-05] MEDS: SODIUM CHLORIDE 0.9% IV 1,000 ML 150 ML IV CONT ×2 (09:52→18:04)
[2023-09-05 10:08] LABS: Lactic Acid 0.9 mmol/L (0.7-2.0)
--- NOTE | 2023-09-05 10:14 | PC.NURSE ---
Called placed to pharmacy to clarify the Mag 2GM rate et dose is correct. Medication currently on hold due to the pt going down to CT
--- NOTE | 2023-09-05 12:21 | PC.NURSE ---
Report given to the [facility] transfer center no at this time et the pt remains on the list to transfer
--- NOTE | 2023-09-05 12:22 | PM.IMPN ---
Progress Note: A&P Assessment and Plan (1) Transient ischemic attack: Code(s): G45.9 - Transient cerebral ischemic attack, unspecified Status: Acute Assessment and Plan: Resolving symptomology with residual being left sided numbness in the arm only. Resolved left sided droop and left sided face numbness. CT brain negative for acute findings. Carotid US with DAYSI stenosis of 41%, and 0% on LICA MRI without any acute abnormalities. Continue Plavix and ASA as advised by Neuro consult at [facility] that was performed in ER. Awaiting consult of Neurology here, appreciate their recommendations. (2) Stenosis of right carotid artery: Code(s): I65.21 - Occlusion and stenosis of right carotid artery Status: Acute Assessment and Plan: As noted per US carotids Right ICA is 41% stenosed and the Left ICA is 0%. Continue plavix and ASA. (3) Hypotension: Code(s): I95.9 - Hypotension, unspecified Status: Acute Assessment and Plan: Overt hypotension this AM with BP 50/36. Responded to fluid boluses. Pt. moved to IMU for further monitoring. If recurrence, will move to ICU. Continue Telemetry Hold Flexeril. Discussed with pt judicious treatment of pain as pain medications can cause her BP to drop. (4) Chronic pain: Code(s): G89.29 - Other chronic pain Status: Acute Assessment and Plan: Due to pts profound episode of Hypotension this AM, I do not feel comfortable continuing Flexeril. Will give scheduled Naproxen 500 mg BID and order prn Tramadol. Continue to monitor pain assessments. (5) COVID: Code(s): U07.1 - COVID-19 Status: Acute Assessment and Plan: Asymptomatic and does not believe she has had any ill contact. Continue isolation based on positive test Continue to monitor VS including oxygen saturations and Physical exam. (6) Anxiety: Code(s): F41.9 - Anxiety disorder, unspecified Status: Chronic Assessment and Plan: Continue Klonopin (7) Constipation: Code(s): K59.00 - Constipation, unspecified Status: Chronic Assessment and Plan: Continue bowel regimen of Colace and Miralax as ordered. Resume home regimen upon discharge. Time Spent With Patient Time with patient: 25 - 35 minutes Subjective Date/time seen: 09/05/23 0930 Interval history: This 57 year old female pt was examined at the bedside in interval assessment after being admitted to the hospital yesterday with stroke like symptoms. She has had interval resolution of numbness to the face on the left side and states her only symptom that remains is the numbness in her left arm. She has not been up to ambulate yet. Will defer ambulation to PT for eval. She endorses no new complaints at this time with exception of continued abdominal pain that is chronic for her and she cannot use her THC Vape while here. I advised that pt will have pain meds ordered, but given the fact that she was profoundly hypotensive this AM with SBP of 50 and DBP of 36, I would be very judicial with the amount of pain meds that she could have. She verbalizes understanding of this POC. She had ECHO today and results are pending. CT of abdomen and pelvis show no acute abnormality, and we are still awaiting Neuro consult as well as PT and OT eval. Her VSS and labs are unremarkable. Review of Systems Review of Systems: All systems reviewed & are unremarkable except as noted in HPI and below Exam Narrative: General: Thin female sitting up in bed no acute distress. She has no appetite and states she does not want to eat. HEENT: PERRL, EOMI. Sclera anicteric. Oral mucosa moist. Neck: Supple. No obvious carotid bruits. FROM in all directions. Respiratory: Lungs are clear to auscultation bilaterally with a noted prolonged expiratory phase. Cardiovascular: Regular rate and rhythm with S1-S2. No peripheral edema and no Hepatojugular reflex. Gastrointestinal: Abdom
[2023-09-05] MEDS: traMADol HCL (*CRX) 50 MG TABLET PO (13:51)
--- NOTE | 2023-09-05 14:52 | WPDNEURCNPN ---
Assessment and Plan Assessment and plan (1) Left sided numbness: Code(s): R20.0 - Anesthesia of skin Status: Acute Plan Madison Weinberg is a 57 year old female with a history of multiple bowel obstructions, C. diff, endometriosis, nephrolithiasis presenting for evaluation of L sided numbness and weakness. Symptoms improved, but continues to have sensory loss in the entire LUE and LLE. Does not fit radicular distribution. She already had MRI brain a few hours after presentation that was negative -- done in hyperacute phase. Not considered TIA since symptoms are still persistent with negative imaging. She has carotid stenosis of R ICA but <50%. - Recommend repeat MRI brain given persistence of symptoms - Continue Aspirin and Plavix for now Consult date: 09/05/23 Reason for consult: L sided numbness/weakness HPI: Madison Weinberg is a 57 year old female with a history of multiple bowel obstructions, C. diff, endometriosis, neprholithiasis presenting for evaluation of L sided numbness and weakness. Patient at baseline has chronic abdominal pain. On the day of presentation, she developed sudden sharp pain in her abdomen, and shortly afterwards developed parasthesias througout her entire left sided including the face, LUE and LLE. She also noted that her left foot felt clumsier while walking and her left leg felt heavy overall. She looked in the mirror and noticed that the left side of her face was drooping as well. She took a dose of aspirin and came to [facility]. She presented within the first hour of her symptoms onet. In the ED her EKG showed sinus rhythm. CT head was negative for any acute changes. Patient did not have any facial asymmetry per ED physician documentation. Her NIH score was 2 for LLE drift and limb ataxia. She did not receive thrombolytic due to low NIH score and resolving symptoms. The case was discussed by ED physician with [facility] stroke. CTA brain/carotid was done which showed 41% stenosis of the proximal R ICA but no stenosis in the L ICA. She was found to be positive for COVID but has been asymptomatic for any URI symptoms. She was admitted for further stroke work-up. MRI brain was done which is negative for acute stroke. Surface echo with bubble study shows normal EF and no evidence of shunt. She was started on aspirin and Plavix. Her LDL from this admission is 101. She is not on a statin. B12 level is normal. Early this morning patient had a hypotensive episode with her blood pressure in the 50s/30s. She was given fluid boluses which she responded to. WBC normal. UA not concerning for infection. CXR with clear lungs. CT head negative for acute changes again. Patient continues to report L hemisensory changes. She feels that the numbness in the face is better but she still has complete numbness in the left arm and left leg. Review of Systems Review of Systems: All systems reviewed & are unremarkable except as noted in HPI and below PMFSH Past Medical History Medical History (Updated 09/05/23 @ 15:13 by Marilyn Quiroz MD) Anxiety Bowel obstruction Chronic pain Constipation Endometriosis Flank pain History of kidney stones History of MRSA infection Hypotension Migraine Osteoporosis PONV (postoperative nausea and vomiting) Surgical History Surgical History History of abdominal surgery History of colon resection History of colostomy reversal History of hysterectomy Family History Family History Unknown No problems noted. Mother Diabetes mellitus Heart disease Hypertension Mother No problems noted. Father Heart disease Hypertension Social History Social History Social History: Surrogate medical decision maker: Sarahy Fairchild, daughter. Code status: Full code. Smoking packs per day: 1.5 Smoking cigarettes per day
[2023-09-05] MEDS: NAPROXEN 500 MG TABLET PO (18:13)
--- NOTE | 2023-09-06 07:19 | P.TS_ITS ---
Transfer Discharge Sum: Prov Provider Date of admission: 09/05/23 07:48 Primary care physician: Fernando Chavez MD Admitting clinician: Sharonda Mcduffie MD Consults: 09/04/23 17:39 Consult to Physician Routine Comment: Consulting Provider: Mike Pal Reason for consultation: CVA Has provider been notified: Yes Attending physician on discharge: Nichole Heard Discharging clinician: Nichole Heard Anticipated date of transfer: 09/05/23 Receiving physician/facility: [facility] Neurology service DS: Admitting Diagnosis Discharge Date 09/05/23 Admitting Diagnosis Acute CVA DS: Discharge Diagnosis Discharge Diagnosis (1) Transient ischemic attack: Code(s): G45.9 - Transient cerebral ischemic attack, unspecified Status: Acute Assessment and Plan: * Resolving symptomology with residual being left sided numbness in the arm only. Resolved left sided droop and left sided face numbness. * CT brain negative for acute findings. * Carotid US with DAYSI stenosis of 41%, and 0% on LICA * MRI without any acute abnormalities. * Continue Plavix and ASA as advised by Neuro consult at [facility] that was performed in ER. * Awaiting consult of Neurology here, appreciate their recommendations. (2) Stenosis of right carotid artery: Code(s): I65.21 - Occlusion and stenosis of right carotid artery Status: Acute Assessment and Plan: * As noted per US carotids * Right ICA is 41% stenosed and the Left ICA is 0%. * Continue plavix and ASA. (3) Hypotension: Code(s): I95.9 - Hypotension, unspecified Status: Acute Assessment and Plan: * Overt hypotension this AM with BP 50/36. Responded to fluid boluses. * Pt. moved to IMU for further monitoring. If recurrence, will move to ICU. * Continue Telemetry * Hold Flexeril. * Discussed with pt judicious treatment of pain as pain medications can cause her BP to drop. (4) Chronic pain: Code(s): G89.29 - Other chronic pain Status: Acute Assessment and Plan: * Due to pts profound episode of Hypotension this AM, I do not feel comfortable continuing Flexeril. Will give scheduled Naproxen 500 mg BID and order prn Tramadol. * Continue to monitor pain assessments. (5) COVID: Code(s): U07.1 - COVID-19 Status: Acute Assessment and Plan: * Asymptomatic and does not believe she has had any ill contact. * Continue isolation based on positive test * Continue to monitor VS including oxygen saturations and Physical exam. (6) Anxiety: Code(s): F41.9 - Anxiety disorder, unspecified Status: Chronic Assessment and Plan: * Continue Klonopin (7) Constipation: Code(s): K59.00 - Constipation, unspecified Status: Chronic Assessment and Plan: * Continue bowel regimen of Colace and Miralax as ordered. * Resume home regimen upon discharge. Transfer Discharge Sum: Med Medications Active and Home Medications: Home Medications Centrum Silver Women 1 tab-cap PO DAILY 09/04/23 [History Confirmed 09/04/23] clonazepam 0.5 mg tablet (Klonopin) 0.5 mg PO TID 09/04/23 [History Confirmed 09/04/23] cyclobenzaprine 10 mg tablet 10 mg PO TID 09/04/23 [History Confirmed 09/04/23] docusate sodium 100 mg capsule 100 mg PO BID 09/04/23 [History Confirmed ] ondansetron 8 mg disintegrating tablet 8 mg PO Q6H PRN Nausea And Vomiting 09/04/23 [History Con
--- NOTE | 2023-09-06 07:19 | PM.TDS ---
Transfer Discharge Sum: Prov Provider Date of admission: 09/05/23 07:48 Primary care physician: Fernando Chavez MD Admitting clinician: Sharonda Mcduffie MD Consults: 09/04/23 17:39 Consult to Physician Routine Comment: Consulting Provider: Mike Pal Reason for consultation: CVA Has provider been notified: Yes Attending physician on discharge: Nichole Heard Discharging clinician: Nichole Heard Anticipated date of transfer: 09/05/23 Receiving physician/facility: [facility] Neurology service DS: Admitting Diagnosis Discharge Date 09/05/23 Admitting Diagnosis Acute CVA DS: Discharge Diagnosis Discharge Diagnosis (1) Transient ischemic attack: Code(s): G45.9 - Transient cerebral ischemic attack, unspecified Status: Acute Assessment and Plan: Resolving symptomology with residual being left sided numbness in the arm only. Resolved left sided droop and left sided face numbness. CT brain negative for acute findings. Carotid US with DAYSI stenosis of 41%, and 0% on LICA MRI without any acute abnormalities. Continue Plavix and ASA as advised by Neuro consult at [facility] that was performed in ER. Awaiting consult of Neurology here, appreciate their recommendations. (2) Stenosis of right carotid artery: Code(s): I65.21 - Occlusion and stenosis of right carotid artery Status: Acute Assessment and Plan: As noted per US carotids Right ICA is 41% stenosed and the Left ICA is 0%. Continue plavix and ASA. (3) Hypotension: Code(s): I95.9 - Hypotension, unspecified Status: Acute Assessment and Plan: Overt hypotension this AM with BP 50/36. Responded to fluid boluses. Pt. moved to IMU for further monitoring. If recurrence, will move to ICU. Continue Telemetry Hold Flexeril. Discussed with pt judicious treatment of pain as pain medications can cause her BP to drop. (4) Chronic pain: Code(s): G89.29 - Other chronic pain Status: Acute Assessment and Plan: Due to pts profound episode of Hypotension this AM, I do not feel comfortable continuing Flexeril. Will give scheduled Naproxen 500 mg BID and order prn Tramadol. Continue to monitor pain assessments. (5) COVID: Code(s): U07.1 - COVID-19 Status: Acute Assessment and Plan: Asymptomatic and does not believe she has had any ill contact. Continue isolation based on positive test Continue to monitor VS including oxygen saturations and Physical exam. (6) Anxiety: Code(s): F41.9 - Anxiety disorder, unspecified Status: Chronic Assessment and Plan: Continue Klonopin (7) Constipation: Code(s): K59.00 - Constipation, unspecified Status: Chronic Assessment and Plan: Continue bowel regimen of Colace and Miralax as ordered. Resume home regimen upon discharge. Transfer Discharge Sum: Med Medications Active and Home Medications: Home Medications Centrum Silver Women 1 tab-cap PO DAILY 09/04/23 [History Confirmed 09/04/23] clonazepam 0.5 mg tablet (Klonopin) 0.5 mg PO TID 09/04/23 [History Confirmed 09/04/23] cyclobenzaprine 10 mg tablet 10 mg PO TID 09/04/23 [History Confirmed 09/04/23] docusate sodium 100 mg capsule 100 mg PO BID 09/04/23 [History Confirmed 09/04/23] ondansetron 8 mg disintegrating tablet 8 mg PO Q6H PRN Nausea And Vomiting 09/04/23 [History Confirmed 09/04/23] trazodone 150 mg tablet 150 mg PO HS PRN Sleep 09/04/23 [History Confirmed 09/04/23] magnesium hydroxide 400 mg/5 mL oral suspension (Milk of Magnesia) 15 ml PO DAILY PRN Constipation 09/05/23 [History Confirmed 09/05/23] polyethylene glycol 3350 17 gram/dose oral powder (Miralax) 17 g PO DAILY 09/05/23 [History Confirmed 09/05/23] Transfer Discharge Sum: Hosp Hospital Course Hospital course: This 57 year old female pt was examined at the bedside in interval assessment after being admitted to the hospital yesterday with stroke
== END 2023-09-05 23:30 | disposition short-term general hospital (02) | DRG 69 ==
LOC: ANHED 19:19 → ANHIMU 19:51 → ANH3MEDSUR 23:11 → ANH2MED 23:17 → ANHIMU 09-05 07:29
PROVIDERS: Physician Assistant; Student in an Organized Health Care Education/Training Program; Admitting Provider Family Medicine; Emergency Provider Emergency Medicine; PCP Family Medicine; Visit Provider Nurse Practitioner Adult Health
DX: G45.9 Transient cerebral ischemic attack, unspecified (principal); U07.1 COVID-19; R20.2 Paresthesia of skin; I65.21 Occlusion and stenosis of right carotid artery; I95.9 Hypotension, unspecified; M81.0 Age-related osteoporosis without current pathological fracture; R10.9 Unspecified abdominal pain; G89.29 Other chronic pain; F12.90 Cannabis use, unspecified, uncomplicated; F41.9 Anxiety disorder, unspecified; R29.702 NIHSS score 2; Z87.891 Personal history of nicotine dependence; Z79.82 Long term (current) use of aspirin; Z87.442 Personal history of urinary calculi
CPT/HCPCS: 36415; 70450; 70496; 70498; 70553; 71045; 74177; 80048; 80053; 80061; 81003; 82607; 82746; 82948; 83605; 83735; 84484; 85025; 85610; 85730; 87040; 87637; 93005; 93306; 96374; 97165; 99285; A9270; A9577; G0378; J2270; J3475; J7030; Q9967

== ENCOUNTER 2023-12-21 18:53 | Emergency (ER) | payer MEDICARE, SELFPAY ==
--- NOTE | ~2023-12-21 | CT_ITS ---
EXAMINATION: CTA chest PE protocol DATE: 12/21/2023 20:20 INDICATION: Left chest pain TECHNIQUE: Computed tomography angiography (CTA) of the chest was performed with 100 mL Omnipaque-350 intravenous contrast timed to evaluate the pulmonary arteries. Coronal maximum intensity projection 3D-reconstructions were created by the technologist. The dose-length product (DLP) was 149.84 mGy-cm. Automated exposure control and iterative reconstruction technique were employed. COMPARISON: X-ray chest, same date; CT CAP 10/15/2022; CTPA 05/30/2021. FINDINGS: Lung parenchyma and airways: Partial pneumonectomy change in the left upper lobe with adjacent scar. Bibasilar scar/atelectasis. Patent airways. Pleura: Unremarkable. Thoracic inlet, axillae and chest wall: Unremarkable. Thoracic aorta: No significant dilation. No dissection. Moderate arch calcification. Mediastinum: Normal. Heart and pericardium: Normal. Coronary artery calcifications: Mild. Upper abdomen: No significant finding. Bones: No acute osseous finding. Old healed seventh and eighth posterolateral rib fractures. Old nonu nited left posterolateral sixth rib fracture. Pulmonary arteries: Study quality: Adequate. No pulmonary emboli detected. IMPRESSION: No CT evidence of acute pulmonary embolus. No acute process detected in the chest. Reviewed, dictated and finalized at location K.
--- NOTE | ~2023-12-21 | XR_ITS ---
EXAMINATION: XR chest 2V Exam Date/Time: 12/21/2023 19:59 CDT HISTORY: chest pain, left sided pain near lower ribs Comparison: 09/05/2023. RESULT: Lines, tubes, and devices: Suture line over the left apex. Lungs and pleura: Senescent change, otherwise clear. Cardiomediastinal silhouette: Stable. Other: No acute osseous or upper abdominal finding. Old healed and nonunited left rib fractures. IMPRESSION: No acute cardiopulmonary process. Reviewed, dictated and finalized at location K.
--- NOTE | 2023-12-21 18:58 | ECG_ITS ---
SEE SCANNED COPY FOR CONFIRMED REPORT MTDD
[2023-12-21 19:21] VITALS: BP 134/92; PULSE 94; RESP 18; TEMP 36.9; O2SAT 100; O2SAT 99
[2023-12-21 19:24] LABS: Basophils Percent Auto 0.6 % (0.2-1.2); Eosinophils Percent Auto 0.6 % (0-4.4); Hematocrit 44.3 % (37.0-47.0); Hemoglobin 14.2 g/dL (12.0-15.0); Immature Granulocyte Absolute 0.01 K/mm3 (0.00-0.031); Immature Granulocyte Percent A 0.1 % (0-0.5); Lymphocytes Absolute Auto 1.14 K/mm3 (0.9-3.2); Lymphocytes Percent Auto 16.1 % (18.3-44.2); Mean Corpuscular HGB Conc 32.1 g/dl (32-36); Mean Corpuscular Volume 93.7 fl (80-100); Mean Platelet Volume 9.8 fl (7.4-10.4); Monocytes Absolute Auto 0.3 K/mm3 (0.1-0.6); Monocytes Percent Auto 4.4 % (2.6-8.5); Neutrophils Absolute Auto 5.5 K/mm3 (1.3-6.7); Neutrophils Percent Auto 78.2 % (45.5-73.1); Platelet Count Result 371 k/mm3 (150-375); Red Blood Count 4.73 M/mm3 (4.2-5.4); Red Cell Distribution Width 12.7 % (11.5-14.5); White Blood Count 7.1 K/mm3 (4.5-10.0)
[2023-12-21 19:34] LABS: Prothrombin Time 13.1 Seconds (11.1-14.7)
[2023-12-21 19:35] LABS: Partial Thromboplastin Time 23.9 Seconds (22.3-36.8)
[2023-12-21 19:41] LABS: D Dimer 0.53 ug/mL (<0.48)
[2023-12-21 19:50] LABS: Alanine Aminotransferase 22 U/L (6-35); Alkaline Phosphatase 106 U/L (38-126); Anion Gap 8 mmol/L (4-12); Aspartate Amino Transferase 34 U/L (14-36); Bilirubin,Total 0.9 mg/dL (0.2-1.3); Blood Urea Nitrogen 6 mg/dL (7-17); Calcium 10.5 mg/dL (8.4-10.2); Carbon Dioxide 28 mmol/L (22-30); Chloride 102 mmol/L (98-107); Estimated Glomerular Filt Rate > 60; Glucose 149 mg/dL (65-110); Lipase 60 U/L (23-300); Potassium 4.2 mmol/L (3.4-5.0); Sodium 138 mmol/L (137-145)
[2023-12-21 20:01] LABS: Troponin I 0.016 ng/mL (0.000-0.034)
[2023-12-21 20:26] VITALS: BP 137/79; PULSE 68; RESP 26; O2SAT 100
[2023-12-21] MEDS: MORPHINE SULFATE (*CRX) 4 MG/ML INJ IV PUSH (20:30)
[2023-12-21 20:31] VITALS: BP 124/81; PULSE 67; RESP 23; O2SAT 100
[2023-12-21 21:31] VITALS: BP 126/83; PULSE 75; RESP 27; O2SAT 100
--- NOTE | 2023-12-21 21:52 | ED.CHESTPAIN ---
HPI - Chest Pain General Chief Complaint: Chest Pain Stated Complaint: Chest Pain Time Seen by Provider: 12/21/23 19:02 History of Present Illness HPI narrative: This is a 58-year-old female, with history stroke on aspirin and Plavix, with previous history of partial pneumonectomy in episodes of pleuritic chest pain, who presents to the emergency department complaining of left-sided chest pain. She describes the pain as sharp, worse with coughing or direct pressure. She rates her pain 8/10 at rest and 10/10 at maximum. She denies associated nausea, vomiting cold sweats, difficulty breathing loss of consciousness. She states in the past 2 months she underwent a cardiac evaluation in preparation for a surgery which was unremarkable. She has no other complaints at this time. Related Data Home Medications Medication Instructions Recorded Confirmed Centrum Silver Women 1 tab-cap PO DAILY 09/04/23 09/04/23 clonazepam 0.5 mg tablet (Klonopin) 0.5 mg PO TID 09/04/23 09/04/23 cyclobenzaprine 10 mg tablet 10 mg PO TID 09/04/23 09/04/23 docusate sodium 100 mg capsule 100 mg PO BID 09/04/23 09/04/23 ondansetron 8 mg disintegrating 8 mg PO Q6H PRN Nausea And Vomiting 09/04/23 09/04/23 tablet trazodone 150 mg tablet 150 mg PO HS PRN Sleep 09/04/23 09/04/23 magnesium hydroxide 400 mg/5 mL 15 ml PO DAILY PRN Constipation 09/05/23 09/05/23 oral suspension (Milk of Magnesia) polyethylene glycol 3350 17 17 g PO DAILY 09/05/23 09/05/23 gram/dose oral powder (Miralax) Allergies Allergy/AdvReac Type Severity Reaction Status Date / Time adhesive tape Allergy Rash Verified 03/12/23 09:46 bupropion [From Wellbutrin] AdvReac ALTERED Verified 03/12/23 09:46 MENTAL STATUS codeine AdvReac Itching Verified 03/12/23 09:46 diphenhydramine AdvReac Jittery Verified 03/12/23 09:46 [From Benadryl] duloxetine [From Cymbalta] AdvReac ALTERED Verified 03/12/23 09:46 MENTAL STATUS gabapentin AdvReac Confusion Verified 03/12/23 09:46 sertraline [From Zoloft] AdvReac Confusion Verified 03/12/23 09:46 Review of Systems Review of Systems: All systems reviewed & are unremarkable except as noted in HPI and below PMFSH Past Medical History Medical History Anxiety Bowel obstruction Chronic pain Constipation Endometriosis Flank pain History of kidney stones History of MRSA infection Hypotension Migraine Osteoporosis PONV (postoperative nausea and vomiting) Surgical History Surgical History History of abdominal surgery History of colon resection History of colostomy reversal History of hysterectomy Family History Family History Unknown No problems noted. Mother Diabetes mellitus Heart disease Hypertension Mother No problems noted. Father Heart disease Hypertension Social History Social History Social History: Surrogate medical decision maker: Sarahy Fairchild, daughter. Code status: Full code. Smoking packs per day: 1.5 Smoking cigarettes per day: 30.0 Years smoked: 12 Smoking pack-years: 18.00 Smoking status: Former smoker Tobacco type: e-cigarettes/vaping Additional smoking assessment comments: QUIT CIGARETTES 10 YEARS AGO, QUIT VAPING 3 MONTHS AGO Alcohol intake: current Drinks per week: 1 Substance use: current Substance use type: marijuana Other substance usage details: daily Last use: 09/04/23 Do You Feel Safe in your Home?: Yes Lack of Transportation: No Lack of Food: Never True Current Housing: I Have Housing Concerned About Future Housing: No Difficulty Paying Gas/Electric Bills: No Difficulty Paying for Meds: No Currently Unemployed: No Education: High School Diploma/GED Difficulty w/ Childcare or Family Care: No
[2023-12-21] MEDS: oxyCODONE/ACETAMINOPHEN (*CRX) 5-325 MG TABLET 1 TABLET PO (22:13)
[2023-12-21] MEDS: KETOROLAC 15 MG/ML VIAL (*BKC) IV PUSH (22:14)
[2023-12-21 22:19] VITALS: BP 118/75; PULSE 71; RESP 18; TEMP 36.9; O2SAT 100
== END 2023-12-21 22:20 | disposition home or self-care (01) ==
PROVIDERS: Emergency Provider Preventive Medicine Aerospace Medicine; PCP Family Medicine
DX: R09.1 Pleurisy (principal); R07.89 Other chest pain; M81.0 Age-related osteoporosis without current pathological fracture; F41.9 Anxiety disorder, unspecified; Z87.442 Personal history of urinary calculi; Z86.14 Personal history of Methicillin resistant Staphylococcus aureus infection; Z87.891 Personal history of nicotine dependence; Z90.710 Acquired absence of both cervix and uterus; Z90.49 Acquired absence of other specified parts of digestive tract; Z90.2 Acquired absence of lung [part of]; Z79.82 Long term (current) use of aspirin; Z79.02 Long term (current) use of antithrombotics/antiplatelets; I49.1 Atrial premature depolarization
CPT/HCPCS: 36415; 71046; 71275; 80053; 83690; 84484; 85025; 85380; 85610; 85730; 93005; 96374; 96375; 99284; A9270; J1885; J2270; Q9967

== ENCOUNTER 2024-03-03 15:17 | Emergency (ER) | payer MEDICARE, MEDICAID, SELFPAY ==
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
[2024-03-03 15:25] VITALS: BP 94/52; PULSE 107; RESP 20; TEMP 36.6; O2SAT 100
[2024-03-03 16:05] VITALS: RESP 18
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
[2024-03-03] MEDS: HYDROcodone/acetaminophen (*CRX) 5-325 MG TABLET 1 TAB PO (16:49)
--- NOTE | 2024-03-03 19:18 | PC.NURSE ---
multiple IV access attempts were made to place line and draw labs. ultrasound certified nurse at bedside at this time to place line and draw labs.
[2024-03-03] MEDS: SODIUM CHLORIDE 0.9% IV 1,000 ML 999 ML IV CONT (19:21)
[2024-03-03 19:29] VITALS: BP 121/69; PULSE 85; RESP 13; TEMP 37.1; O2SAT 100
[2024-03-03 19:31] LABS: Basophils Percent Auto 0.4 % (0.2-1.2); Eosinophils Percent Auto 0.4 % (0-4.4); Hematocrit 41.5 % (37.0-47.0); Hemoglobin 13.4 g/dL (12.0-15.0); Immature Granulocyte Absolute 0.03 K/mm3 (0.00-0.031); Immature Granulocyte Percent A 0.3 % (0-0.5); Lymphocytes Absolute Auto 1.22 K/mm3 (0.9-3.2); Lymphocytes Percent Auto 11.6 % (18.3-44.2); Mean Corpuscular HGB Conc 32.3 g/dl (32-36); Mean Corpuscular Hemoglobin 30.5 pg (26-34); Mean Corpuscular Volume 94.3 fl (80-100); Mean Platelet Volume 9.6 fl (7.4-10.4); Monocytes Absolute Auto 0.6 K/mm3 (0.1-0.6); Monocytes Percent Auto 6.1 % (2.6-8.5); Neutrophils Absolute Auto 8.5 K/mm3 (1.3-6.7); Neutrophils Percent Auto 81.2 % (45.5-73.1); Platelet Count Result 395 k/mm3 (150-375); Red Cell Distribution Width 13.1 % (11.5-14.5); White Blood Count 10.5 K/mm3 (4.5-10.0)
[2024-03-03 19:39] LABS: Prothrombin Time 13.5 Seconds (11.1-14.7)
[2024-03-03 19:40] LABS: Partial Thromboplastin Time 27.2 Seconds (22.3-36.8)
[2024-03-03] MEDS: LIDOCAINE 5% PATCH 1 PATCH TRANSDERM (19:45)
[2024-03-03] MEDS: fentaNYL CITRATE INJ (*CRX) 100 MCG/2 ML VIAL 50 MCG IV PUSH (19:45)
[2024-03-03] MEDS: clonazePAM (*CRX) 0.5 MG TABLET PO (19:46)
[2024-03-03 19:48] LABS: Anion Gap 13 mmol/L (4-12); Blood Urea Nitrogen 12 mg/dL (7-17); Calcium 9.3 mg/dL (8.4-10.2); Carbon Dioxide 27 mmol/L (22-30); Chloride 96 mmol/L (98-107); Estimated CRCL calculation 38 ml/min; Estimated Glomerular Filt Rate 57; Glucose 109 mg/dL (65-110); Potassium 3.7 mmol/L (3.4-5.0); Sodium 136 mmol/L (137-145)
--- NOTE | 2024-03-03 20:49 | PC.NURSE ---
Patient refusing to get lactic drawn at this time. states that she's transferring so they will just be able to get it at [place]
[2024-03-03] MEDS: HYDROmorphone HCL INJ (*CRX) 1 MG/ML SYR 0.5 MG IV PUSH (22:09)
[2024-03-03 22:12] VITALS: PULSE 78; RESP 18; TEMP 36.6; O2SAT 99
== END 2024-03-03 22:14 | disposition short-term general hospital (02) ==
PROVIDERS: Emergency Provider Student in an Organized Health Care Education/Training Program; PCP Family Medicine
DX: D72.829 Elevated white blood cell count, unspecified (principal); D75.839 Thrombocytosis, unspecified; S22.42XA Multiple fractures of ribs, left side, initial encounter for closed fracture; Z87.891 Personal history of nicotine dependence; Y09 Assault by unspecified means
CPT/HCPCS: 36415; 71046; 71100; 73060; 80048; 85025; 85610; 85730; 96374; 96375; 99285; A9270; J1170; J3010; J7030

== ENCOUNTER 2024-05-20 02:01 | Day surgery (SDC) | payer MEDICARE, MEDICAID, SELFPAY ==
--- NOTE | 2024-05-14 08:44 | PC.NURSE ---
LM on [facility] RN phone regarding anticoagulant clearance form.
[2024-05-15 11:30] VITALS: BMI 16.8
--- NOTE | 2024-05-15 12:49 | PC.NURSE ---
pt called for her pat appt.instructed her per dr young (pt neurologist from [facility]) that she is cleared to hold her plavix for 5 days prior. she voiced understanding. when asked about who was going to be her ride home after the procedure, pt stated that she was going to call a cab. stated she has no family or close friend that is available to help her out. she stated she is completely alone except for a disabled neighbor who does check in with her. Let her know that we cannot send pt home via public transportation, taxis, ubers, lyft unless there is someone that can ride with her. she states she did have another friend that could check on her but this friend is not someone who could drive her. pt has [place] medicaid so with her permission, emailed her the list of med cab services available. stated she would have to call us back with the service and their number prior to procedure. she voiced understanding, this was also put in the email. will follow up with patient on may 18.
--- NOTE | 2024-05-15 13:27 | PC.NURSE ---
pt stated during preop call that she mostly has liquid stools due to the colon resxn she had done and the numerous bowel obstructions she has had. she currently takes miralax, sennokot, and dulcolax on a daily basis. she states she cannot do the usual prep due to her surgeries and inability to hold very much in her stomach. she will do a modified prep. dr jacob made aware and is agreeable.
--- NOTE | 2024-05-18 11:53 | PC.NURSE ---
called pt to update on her transportation for colonoscopy on 05/20/24. pt states she was able to get her neighbor to drop her off and pick her up after procedure. mary [phone].
[2024-05-20 11:20] VITALS: BP 142/93; PULSE 93; RESP 18; TEMP 36.3; O2SAT 99; BMI 16.2
[2024-05-20] MEDS: LACTATED RINGERS 1,000 ML 150 ML IV CONT (11:23)
--- NOTE | 2024-05-20 11:42 | WPDANESEPPF ---
Anes - Initial Pre Proc Eval Procedure: Operation Date: 05/20/24 15:00 Proposed Procedures p Screening Colonoscopy - Seamus Ng MD Date/Time: 05/20/24 11:42 Surgeon: Seamus Ng MD Pre Op Diagnosis: screening neoplasm of colon Patient Data Age: 58 Gender: F Height: 1.63 m Weight: 43 kg Last Vital Signs Temp 97.3 F L 05/20/24 11:20 Pulse 93 05/20/24 11:20 Resp 18 05/20/24 11:20 BP 142/93 H 05/20/24 11:20 Pulse Ox 99 05/20/24 11:20 O2 Del Method Room Air 05/20/24 11:20 Allergies Allergy/AdvReac Type Severity Reaction Status Date / Time adhesive tape Allergy Rash Verified 05/20/24 11:15 bupropion [From Wellbutrin] AdvReac ALTERED Verified 05/20/24 11:15 MENTAL STATUS codeine AdvReac Itching Verified 05/20/24 11:15 diphenhydramine AdvReac Jittery Verified 05/20/24 11:15 [From Benadryl] duloxetine [From Cymbalta] AdvReac ALTERED Verified 05/20/24 11:15 MENTAL STATUS gabapentin AdvReac Confusion Verified 05/20/24 11:15 sertraline [From Zoloft] AdvReac Confusion Verified 05/20/24 11:15 Home Medications Medication Instructions Recorded Confirmed Type Centrum Silver Women 1 tab-cap PO DAILY 09/04/23 05/20/24 History clonazepam 0.5 mg tablet (Klonopin) 0.5 mg PO TID 09/04/23 05/20/24 History cyclobenzaprine 10 mg tablet 10 mg PO TID 09/04/23 05/20/24 History docusate sodium 100 mg capsule 100 mg PO BID 09/04/23 05/20/24 History ondansetron 8 mg disintegrating 8 mg PO Q6H PRN Nausea And Vomiting 09/04/23 05/20/24 History tablet trazodone 150 mg tablet 150 mg PO HS PRN Sleep 09/04/23 05/20/24 History magnesium hydroxide 400 mg/5 mL 15 ml PO DAILY PRN Constipation 09/05/23 05/20/24 History oral suspension (Milk of Magnesia) polyethylene glycol 3350 17 17 g PO DAILY 09/05/23 05/20/24 History gram/dose oral powder (Miralax) clopidogrel 75 mg tablet 75 mg PO DAILY 05/20/24 05/20/24 History Patient hx anesthesia problems: none Family hx anesthesia problems: none Results Review: All pre-operative results and documents have been reviewed as part of the pre-operative evaluation. [facility] Past Medical History Medical History (Updated 03/04/24 @ 00:01 by Antoine Zaman) Anxiety Bowel obstruction Chronic pain Constipation Endometriosis Flank pain History of histoplasmosis History of kidney stones History of MRSA infection History of stroke SLU Hypotension Migraine Osteoporosis PONV (postoperative nausea and vomiting) Surgical History Surgical History History of abdominal surgery History of colon resection History of colostomy reversal History of hysterectomy History of pneumonectomy partial (left upper lobe) Family History Family History Unknown No problems noted. Mother Diabetes mellitus Heart disease Hypertension Mother No problems noted. Father Heart disease Hypertension Social History Social History (Updated 03/03/24 @ 19:44 by Fanny Aly MD) Social History: Surrogate medical decision maker: Sarahy Fairchild, daughter. Code status: Full code. Smoking packs per day: 1.5 Smoking cigarettes per day: 30.0 Years smoked: 12 Smoking pack-years: 18.00 Smoking status: Never smoker Tobacco type: e-cigarettes/vaping Additional smoking assessment comments: QUIT CIGARETTES 10 YEARS AGO, QUIT VAPING 3 MONTHS AGO Alcohol intake: current Drinks per week: 1 Alcohol use details: very rarely Substance use: current Substance use type: marijuana Other substance usage details: thc, has medical card Last use: 09/04/23 Do You Feel Safe in your Home?: Yes Lack of Transportation: No Lack of Food: Never True Current Housing: I Have Housing Concerned About Future Housing: No Difficulty Paying Gas/Electric Bills: No Difficult
--- NOTE | 2024-05-20 12:13 | PM.HPGS ---
History of Present Illness History of Present Illness Consent: Risks, benefits, and alternatives have been discussed and questions answered. Patient agrees to proceed with procedure. Chief complaint: screening neoplasm of colon Narrative: Madison Weinberg is a 58 year old female here for colonoscopy, complicated history with endometriosis that required partial colectomy, at some point had colostomy, then sbo that required further surgery and mesh infection that was revised. She is having intermittent pain in lower abdomen. Last colonoscopy 2020 after her last surgery. Also constipation on medication. Review of Systems Review of Systems: All systems reviewed & are unremarkable except as noted in HPI and below PMFSH Past Medical History Medical History (Updated 05/20/24 @ 12:15 by Seamus Ng MD) Anxiety Bowel obstruction Chronic pain Constipation Endometriosis Flank pain History of histoplasmosis History of kidney stones History of MRSA infection History of stroke SLU Hypotension Lower abdominal pain Migraine Osteoporosis PONV (postoperative nausea and vomiting) Surgical History Surgical History (Updated 05/20/24 @ 12:15 by Seamus Ng MD) History of abdominal surgery History of colon resection History of colostomy reversal History of hysterectomy History of pneumonectomy partial (left upper lobe) Family History Family History Unknown No problems noted. Mother Diabetes mellitus Heart disease Hypertension Mother No problems noted. Father Heart disease Hypertension Social History Social History (Updated 03/03/24 @ 19:44 by Fanny Aly MD) Social History: Surrogate medical decision maker: Sarahy Fairchild, daughter. Code status: Full code. Smoking packs per day: 1.5 Smoking cigarettes per day: 30.0 Years smoked: 12 Smoking pack-years: 18.00 Smoking status: Never smoker Tobacco type: e-cigarettes/vaping Additional smoking assessment comments: QUIT CIGARETTES 10 YEARS AGO, QUIT VAPING 3 MONTHS AGO Alcohol intake: current Drinks per week: 1 Alcohol use details: very rarely Substance use: current Substance use type: marijuana Other substance usage details: thc, has medical card Last use: 09/04/23 Do You Feel Safe in your Home?: Yes Lack of Transportation: No Lack of Food: Never True Current Housing: I Have Housing Concerned About Future Housing: No Difficulty Paying Gas/Electric Bills: No Difficulty Paying for Meds: No Currently Unemployed: No Education: High School Diploma/GED Difficulty w/ Childcare or Family Care: No Living arrangements: alone Spiritual care concerns: No Meds Home Medications and Allergies Home Medications Medication Instructions Recorded Confirmed Type Centrum Silver Women 1 tab-cap PO DAILY 09/04/23 05/20/24 History clonazepam 0.5 mg tablet (Klonopin) 0.5 mg PO TID 09/04/23 05/20/24 History cyclobenzaprine 10 mg tablet 10 mg PO TID 09/04/23 05/20/24 History docusate sodium 100 mg capsule 100 mg PO BID 09/04/23 05/20/24 History ondansetron 8 mg disintegrating 8 mg PO Q6H PRN Nausea And Vomiting 09/04/23 05/20/24 History tablet trazodone 150 mg tablet 150 mg PO HS PRN Sleep 09/04/23 05/20/24 History magnesium hydroxide 400 mg/5 mL 15 ml PO DAILY PRN Constipation 09/05/23 05/20/24 History oral suspension (Milk of Magnesia) polyethylene glycol 3350 17 17 g PO DAILY 09/05/23 05/20/24 History gram/dose oral powder (Miralax) clopidogrel 75 mg tablet 75 mg PO DAILY 05/20/24 05/20/24 History Allergies Allergy/AdvReac Type Severity Reaction Status Date / Time adhesive tape Allergy Rash Verified 05/20/24 11:15 bupropion [From Wellbutrin] AdvReac ALTERED Verified 05/20/24 11:15 MENTAL STATUS codeine AdvReac Itching Verified 05/20/24 11:15 diphenhydramine AdvReac Jittery Verified
[2024-05-20 12:32] VITALS: BP 102/61; PULSE 59; RESP 16; O2SAT 100
[2024-05-20 12:42] VITALS: BP 136/71; PULSE 66; RESP 22; O2SAT 100
[2024-05-20 12:52] VITALS: BP 139/90; PULSE 72; RESP 19; O2SAT 100
== END 2024-05-20 13:04 | disposition home or self-care (01) ==
PROVIDERS: PCP Family Medicine; Visit Provider Internal Medicine Gastroenterology
PROC: 0DJD8ZZ Inspection of Lower Intestinal Tract, Via Natural or Artificial Opening Endoscopic (ICD-10-PCS; CPT 45378; principal; 2024-05-20 15:00)
DX: Z12.11 Encounter for screening for malignant neoplasm of colon (principal); D12.2 Benign neoplasm of ascending colon; F41.9 Anxiety disorder, unspecified; G89.29 Other chronic pain; N80.9 Endometriosis, unspecified; I95.9 Hypotension, unspecified; M81.0 Age-related osteoporosis without current pathological fracture; F12.90 Cannabis use, unspecified, uncomplicated; Z79.02 Long term (current) use of antithrombotics/antiplatelets; Z98.890 Other specified postprocedural states; Z98.0 Intestinal bypass and anastomosis status; Z90.49 Acquired absence of other specified parts of digestive tract; Z87.891 Personal history of nicotine dependence; Z87.442 Personal history of urinary calculi; Z86.73 Personal history of transient ischemic attack (TIA), and cerebral infarction without residual deficits; Z82.49 Family history of ischemic heart disease and other diseases of the circulatory system
CPT/HCPCS: 45385; 88305; J1100; J2003; J2405; J2704; J7120

== ENCOUNTER 2024-05-28 20:52 | Emergency (ER) | payer MEDICARE, MEDICAID, SELFPAY ==
--- NOTE | ~2024-05-28 | CT_ITS ---
EXAMINATION: CT abdomen pelvis wo con DATE: 05/28/2024 23:23 INDICATION: Flank pain. TECHNIQUE: Computed tomography (CT) of the abdomen and pelvis was performed without intravenous contr ast. Automated exposure control and iterative reconstruction technique were employed. The dose-length product was 161.68 mGy-cm. COMPARISON: CT abdomen and pelvis 09/05/23 FINDINGS: The visualized portions of the lung bases demonstrate mild atelectasis. No pleural effusion . The liver, gallbladder, spleen, pancreas, adrenal glands, and right kidney are normal. There are 3 stones in left kidney measuring up to 4 mm. There is a 4 mm hemorrhagic cyst in left kidney. There ar e surgical changes of the rectosigmoid. The proximal duodenum is dilated, likely adynamic ileus. Ther e are changes of appendectomy. There are no pathologically enlarged lymph nodes. There is no free int raperitoneal fluid. There are chronic radiopaque foreign bodies in the subcutaneous fat on the left. There is mild lumbar spondylosis. IMPRESSION: 1. Nonobstructing left kidney stones. Reviewed, dictated and finalized at location A.
[2024-05-28 20:55] VITALS: BP 119/73; PULSE 108; RESP 16; TEMP 36.6; O2SAT 100
[2024-05-28 21:35] LABS: Basophils Absolute Auto 0.1 K/mm3 (0.0-0.1); Basophils Percent Auto 0.4 % (0.2-1.2); Eosinophils Absolute Auto 0.1 K/mm3 (0-0.3); Eosinophils Percent Auto 0.7 % (0-4.4); Hematocrit 40.9 % (37.0-47.0); Hemoglobin 13.1 g/dL (12.0-15.0); Immature Granulocyte Absolute 0.03 K/mm3 (0.00-0.031); Immature Granulocyte Percent A 0.3 % (0-0.5); Lymphocytes Absolute Auto 1.94 K/mm3 (0.9-3.2); Lymphocytes Percent Auto 16.8 % (18.3-44.2); Mean Corpuscular Hemoglobin 30.3 pg (26-34); Mean Corpuscular Volume 94.5 fl (80-100); Mean Platelet Volume 9.9 fl (7.4-10.4); Monocytes Absolute Auto 0.8 K/mm3 (0.1-0.6); Monocytes Percent Auto 6.6 % (2.6-8.5); Neutrophils Absolute Auto 8.7 K/mm3 (1.3-6.7); Neutrophils Percent Auto 75.2 % (45.5-73.1); Platelet Count Result 377 k/mm3 (150-375); Red Blood Count 4.33 M/mm3 (4.2-5.4); Red Cell Distribution Width 12.5 % (11.5-14.5); White Blood Count 11.6 K/mm3 (4.5-10.0)
[2024-05-28 21:41] LABS: Add Urine Microscopic? YES; Appearance Urine Cloudy (Clear); Bacteria Urine 4+ /hpf; Bilirubin Urine Negative (Negative); Blood Urine Negative (Negative); Color Urine Yellow (Yellow); Glucose Urine UA Negative (Negative); Ketones Urine Negative (Negative); Leukocyte Esterase Ur 1+ LEU/UL (Negative); Nitrate Urine Negative (Negative); Non Pathogenic Casts 0-2; Protein Urine 1+ mg/dL (Negative); RBC Urine 0-2 /hpf (0-2); Specific Grav Ur 1.022 (1.001-1.035); Squamous Epithelial Cell Urine Many /hpf (Few); Urobilinogen Urine 0.2 mg/dL (<2.0); WBC Urine 21-50 /hpf (0-3); pH Urine 5.5 (5.0-9.0)
[2024-05-28 21:43] LABS: Alanine Aminotransferase 16 U/L (6-35); Albumin Level 4.4 g/dL (3.5-5.1); Alkaline Phosphatase 81 U/L (38-126); Anion Gap 10 mmol/L (4-12); Aspartate Amino Transferase 26 U/L (14-36); Bilirubin,Total 0.3 mg/dL (0.2-1.3); Blood Urea Nitrogen 21 mg/dL (7-17); Calcium 9.6 mg/dL (8.4-10.2); Carbon Dioxide 24 mmol/L (22-30); Chloride 103 mmol/L (98-107); Estimated CRCL calculation 29 ml/min; Estimated Glomerular Filt Rate 42; Glucose 108 mg/dL (65-110); Lipase 161 U/L (23-300); Potassium 3.8 mmol/L (3.4-5.0); Sodium 137 mmol/L (137-145)
[2024-05-28] MEDS: SODIUM CHLORIDE 0.9% IV 1,000 ML 999 ML IV CONT (22:04)
[2024-05-28] MEDS: KETOROLAC 30 MG/ML VIAL (*BKC) IV PUSH (22:04)
[2024-05-28 22:54] LABS: Trichomonas Vag PCR NOT DETECTED (NOT DETECTE)
[2024-05-28 23:04] VITALS: BP 121/71; PULSE 85; RESP 20; O2SAT 98
[2024-05-28 23:17] LABS: Chlamydia trachomatis NOT DETECTED (NOT DETECTE); Neisseria gonorrhoeae PCR NOT DETECTED (NOT DETECTE)
--- NOTE | 2024-05-28 23:40 | ED.BACK ---
HPI - Back Pain/Injury General Chief Complaint: Back Pain/Injury Stated Complaint: R lower back pain Time Seen by Provider: 05/28/24 21:22 History of Present Illness HPI Narrative: patient is a 58-year-old female who presents ER with multiple complaints. First complaint is right-sided back pain that radiates into her buttock and leg as well as for groin. Social with urinary frequency urgency. No dysuria. She has some suprapubic cramping and left-sided abdominal pain as well suprapubic area. Reports that she had unprotected sex last 2 weeks since had increased vaginal discharge. She has history of kidney stones but no blood in her urine. Denies fevers or chills or sweats. She is concerned about STI. She has a hysterectomy Related Data Home Medications Medication Instructions Recorded Confirmed Centrum Silver Women 1 tab-cap PO DAILY 09/04/23 05/20/24 clonazepam 0.5 mg tablet (Klonopin) 0.5 mg PO TID 09/04/23 05/20/24 cyclobenzaprine 10 mg tablet 10 mg PO TID 09/04/23 05/20/24 docusate sodium 100 mg capsule 100 mg PO BID 09/04/23 05/20/24 ondansetron 8 mg disintegrating 8 mg PO Q6H PRN Nausea And Vomiting 09/04/23 05/20/24 tablet trazodone 150 mg tablet 150 mg PO HS PRN Sleep 09/04/23 05/20/24 magnesium hydroxide 400 mg/5 mL 15 ml PO DAILY PRN Constipation 09/05/23 05/20/24 oral suspension (Milk of Magnesia) polyethylene glycol 3350 17 17 g PO DAILY 09/05/23 05/20/24 gram/dose oral powder (Miralax) clopidogrel 75 mg tablet 75 mg PO DAILY 05/20/24 05/20/24 Allergies Allergy/AdvReac Type Severity Reaction Status Date / Time adhesive tape Allergy Rash Verified 05/28/24 20:53 bupropion [From Wellbutrin] AdvReac ALTERED Verified 05/28/24 20:53 MENTAL STATUS codeine AdvReac Itching Verified 05/28/24 20:53 diphenhydramine AdvReac Jittery Verified 05/28/24 20:53 [From Benadryl] duloxetine [From Cymbalta] AdvReac ALTERED Verified 05/28/24 20:53 MENTAL STATUS gabapentin AdvReac Confusion Verified 05/28/24 20:53 sertraline [From Zoloft] AdvReac Confusion Verified 05/28/24 20:53 Review of Systems Review of Systems: All systems reviewed & are unremarkable except as noted in HPI and below Constitutional: Constitutional: Reports no additional constitutional complaints Cardiovascular: Cardiovascular: Reports no additional cardiovascular complaints Respiratory: Respiratory: Reports no additional respiratory complaints Gastrointestinal: Gastrointestinal: Reports no additional gastrointestinal complaints Genitourinary: Genitourinary: Reports no additional female genitourinary complaints [facility] Past Medical History Medical History (Updated 05/28/24 @ 23:44 by Mehdi Forte MD) Anxiety Bowel obstruction Chronic pain Constipation Endometriosis Flank pain History of histoplasmosis History of kidney stones History of MRSA infection History of stroke SLU Hypotension Lower abdominal pain Migraine Osteoporosis PONV (postoperative nausea and vomiting) Surgical History Surgical History (Updated 05/20/24 @ 12:15 by Seamus Ng MD) History of abdominal surgery History of colon resection History of colostomy reversal History of hysterectomy History of pneumonectomy partial (left upper lobe) Family History Family History Unknown No problems noted. Mother Diabetes mellitus Heart disease Hypertension Mother No problems noted. Father Heart disease Hypertension Social History Social History (Updated 03/03/24 @ 19:44 by Fanny Aly MD) Social History: Surrogate medical decision maker: Sarahy Fairchild, daughter. Code status: Full code. Smoking packs per day: 1.5 Smoking cigarettes per day: 30.0 Years smoked: 12 Smoking pack-years: 18.00 Smoking status: Never smoker Tobacco type: e-cigarettes/vaping Additional smoking assessment comments: QUIT CIGARETTES 10
== END 2024-05-28 23:54 | disposition home or self-care (01) ==
PROVIDERS: Emergency Medicine; Emergency Provider Emergency Medicine; PCP Family Medicine
DX: N39.0 Urinary tract infection, site not specified (principal); N76.0 Acute vaginitis; M54.50 Low back pain, unspecified; Z11.3 Encounter for screening for infections with a predominantly sexual mode of transmission; M81.0 Age-related osteoporosis without current pathological fracture; F41.9 Anxiety disorder, unspecified; Z87.442 Personal history of urinary calculi; Z86.14 Personal history of Methicillin resistant Staphylococcus aureus infection; Z86.73 Personal history of transient ischemic attack (TIA), and cerebral infarction without residual deficits; Z87.891 Personal history of nicotine dependence; Z90.710 Acquired absence of both cervix and uterus; Z90.2 Acquired absence of lung [part of]; Z90.49 Acquired absence of other specified parts of digestive tract; Z79.899 Other long term (current) drug therapy; N20.0 Calculus of kidney
CPT/HCPCS: 36415; 74176; 80053; 81001; 83690; 85025; 87086; 87181; 87491; 87591; 87661; 96361; 96374; 99284; J1885; J7030

== ENCOUNTER 2024-06-25 01:44 | Inpatient (IN) | payer MEDICARE, MEDICAID, SELFPAY ==
[2024-06-25] VITALS (88 sets, daily range): BP systolic 64–196; BP diastolic 36–159; PULSE 62–107; RESP 14–24; TEMP 35–37.1; O2SAT 94–100; BMI 19.1; BMI 19.8
--- NOTE | ~2024-06-25 | XR_ITS ---
EXAMINATION: XR chest 1V portable DATE: 06/27/2024 05:49 INDICATION: Respiratory failure. TECHNIQUE: A single frontal view of the chest was obtained. COMPARISON: Chest view 06/26/2024, CT abdomen and pelvis 05/28/2024, chest CT 12/21/2023 FINDINGS: There is mild atelectasis at the lung bases. There is a staple line in left upper lobe. No pleural effusion or pneumothorax. The heart size is normal. There are old left rib fractures. IMPRESSION: 1. Mild atelectasis at the lung bases. Reviewed, dictated and finalized at location A. NCIAL ACCOUNTING ANALYST
--- NOTE | ~2024-06-25 | XR_ITS ---
Upright portable view of the abdomen Clinical history: NG tube placement Findings: NG tube is in satisfactory position. Bowel gas pattern is nonspecific. No evidence for obst ruction or free air. No abnormal mass lesion or calcification is seen. Osseous structures are intact. Impression: NG tube in satisfactory position. Reviewed, dictated and finalized at [facility]. IT COLLECTIONS MANAGER Impression: NG tube in satisfactory position.
--- NOTE | ~2024-06-25 | CT_ITS ---
Non-contrast Head CT History: Altered mental status COMPARISON: 09/05/2023 Technique: Axial non-contrast imaging of the brain was performed. Dose reduction technique was used on this scan by utilizing automated exposure control and iterative reconstruction technique. The dose -length product (DLP) was 681.00 mGy-cm. Findings: There is no evidence of intracranial hemorrhage, mass lesion, or acute infarct. Brain par enchyma appears normal. The ventricles and subarachnoid spaces are normal in size. The calvarium ap pears normal. The visualized paranasal sinuses and mastoid air cells are clear. Impression: No significant abnormality seen. Reviewed, dictated and finalized at location . CARDIOVASCULAR Impression: No significant abnormality seen.
--- NOTE | ~2024-06-25 | XR_ITS ---
Portable chest x-ray Comparison: 06/25/2024 Clinical History: Respiratory failure Findings: Endotracheal tube and NG tube are in satisfactory positions. Lungs are clear. Stable sutur e line left lung apex. COPD pattern present. Cardiomediastinal silhouette is stable. Bones and soft tissues are unremarkable. Impression: No acute pulmonary abnormality evident. COPD pattern. Support tubes, as above. Reviewed, dictated and finalized at location . OGRAPHIC PLATE MAKER Impression: No acute pulmonary abnormality evident. COPD pattern. Support tubes, as above.
--- NOTE | ~2024-06-25 | XR_ITS ---
Portable chest x-ray Comparison: 03/03/2024 Clinical History: Intubation Findings: Endotracheal tube and NG tube are in satisfactory positions. Lungs are clear, without foca l consolidation or pleural effusion. Probable COPD. Cardiomediastinal silhouette is stable. Stable c hronic left rib fracture deformity. Impression: Support tubes, as above. COPD. Clear lungs. Reviewed, dictated and finalized at location . MAKER Impression: Support tubes, as above. COPD. Clear lungs.
--- NOTE | 2024-06-25 01:50 | PC.NURSE ---
EDP intubated at 0201 100 of succ at 0201 20 of atomidate at 0200 1 L NS at 0200 7.5 ET tube and 23 at lip OG tube at 0213 and 60 at lip 18 guage R forearm at 0150
--- NOTE | 2024-06-25 02:06 | ED.GENADULT ---
HPI - General Adult General Chief complaint: Overdose Stated complaint: OVERDOSE Time Seen by Provider: 06/25/24 01:45 History of Present Illness HPI narrative: patient is a 58-year-old female who presents emergency department chief complaint of overdose. Patient took clonazepam and Flexeril at home and was extremely sedate by EMS. Patient is unable to provide history Related Data Home Medications Medication Instructions Recorded Confirmed Centrum Silver Women 1 tab-cap PO DAILY 09/04/23 05/20/24 clonazepam 0.5 mg tablet (Klonopin) 0.5 mg PO TID 09/04/23 05/20/24 cyclobenzaprine 10 mg tablet 10 mg PO TID 09/04/23 05/20/24 docusate sodium 100 mg capsule 100 mg PO BID 09/04/23 05/20/24 ondansetron 8 mg disintegrating 8 mg PO Q6H PRN Nausea And Vomiting 09/04/23 05/20/24 tablet trazodone 150 mg tablet 150 mg PO HS PRN Sleep 09/04/23 05/20/24 magnesium hydroxide 400 mg/5 mL 15 ml PO DAILY PRN Constipation 09/05/23 05/20/24 oral suspension (Milk of Magnesia) polyethylene glycol 3350 17 17 g PO DAILY 09/05/23 05/20/24 gram/dose oral powder (Miralax) clopidogrel 75 mg tablet 75 mg PO DAILY 05/20/24 05/20/24 Allergies Allergy/AdvReac Type Severity Reaction Status Date / Time adhesive tape Allergy Rash Verified 05/28/24 20:53 bupropion [From Wellbutrin] AdvReac ALTERED Verified 05/28/24 20:53 MENTAL STATUS codeine AdvReac Itching Verified 05/28/24 20:53 diphenhydramine AdvReac Jittery Verified 05/28/24 20:53 [From Benadryl] duloxetine [From Cymbalta] AdvReac ALTERED Verified 05/28/24 20:53 MENTAL STATUS gabapentin AdvReac Confusion Verified 05/28/24 20:53 sertraline [From Zoloft] AdvReac Confusion Verified 05/28/24 20:53 Review of Systems Review of Systems: A 10 system review of systems was completed on the patient and is negative except for what is stated in the HPI. Nursing and ancillary documentation was reviewed. [facility] Past Medical History Medical History Anxiety Bowel obstruction Chronic pain Constipation Endometriosis Flank pain History of histoplasmosis History of kidney stones History of MRSA infection History of stroke [facility] Hypotension Lower abdominal pain Migraine Osteoporosis PONV (postoperative nausea and vomiting) Surgical History Surgical History History of abdominal surgery History of colon resection History of colostomy reversal History of hysterectomy History of pneumonectomy partial (left upper lobe) Family History Family History Unknown No problems noted. Mother Diabetes mellitus Heart disease Hypertension Mother No problems noted. Father Heart disease Hypertension Social History Social History Social History: Surrogate medical decision maker: Sarahy Fairchild, daughter. Code status: Full code. Smoking packs per day: 1.5 Smoking cigarettes per day: 30.0 Years smoked: 12 Smoking pack-years: 18.00 Smoking status: Never smoker Tobacco type: e-cigarettes/vaping Additional smoking assessment comments: QUIT CIGARETTES 10 YEARS AGO, QUIT VAPING 3 MONTHS AGO Alcohol intake: current Drinks per week: 1 Alcohol use details: very rarely Substance use: current Substance use type: prescription drug Other substance usage details: thc, has medical card Last use: 09/04/23 Do You Feel Safe in your Home?: Yes Lack of Transportation: No Lack of Food: Never True Current Housing: I Have Housing Concerned About Future Housing: No Difficulty Paying Gas/Electric Bills: No Difficulty Paying for Meds: No Currently Unemployed: No Education: High School Diploma/GED Difficulty w/ Childcare or Family Care: No Living arrangements: alone Spiritual care concerns: No Exam Narrative: GENERAL: ill-appearing, sedated, snoring respirations HEAD: Normocephalic, atraumatic. EYES: PERRLA and EOMI. ENT: Nares clear, no rhinorrhea or epistaxis. Mucous membranes moist. decreased gag reflex NECK: Supple. CHEST: Clear to auscultation. No respiratory distress. HEART: Regular rate and rhythm. No murmur heard. Normal peripheral pulses. ABDOMEN: Soft, nontender, nondistended, normal active bowel sounds. EXTREMITIES: Normal range of motion. No edema. SKIN: Warm, dry, no rash. NEURO: not following commands,. PSYCH: unable to obtain. Course Vital Signs Vital signs: Vital Signs Temperature 35.3 C L 06/25/24 01:44 Pulse Rate 105 H 06/25/24 01:44 Respiratory Rate 21 H 06/25/24 01:44 Blood Pressure 182/88 H 06/25/24 01:44 Pulse Oximetry 99 06/25/24 01:44 Oxygen Delivery Room Air 06/25/24 01:44 Temperature 35.6 C L 06/25/24 04:31 Pulse Rate 90 06/25/24 05:35 Respiratory Rate 18 06/25/24 05:35 Blood Pressure 120/68 06/25/24 05:34 Pulse Oximetry 100 06/25/24 04:31 Oxygen Delivery Mechanical Ventilation 06/25/24 02:24 Fraction of Inspired Oxygen 50 06/25/24 02:24 Procedures Central Line Placement Right Femoral: Central Line Date: 06/25/24 Central Line Time: 04:47 Performed Emergently - Given emergent patient condition, temporal constraints may have precluded informed consent.: Yes Time Out Performed: Yes Patient Placed on Monitor/Pulse Ox: Yes Max. Sterile Barrier Technique: Caps, large sterile sheet and hand hygiene Central Line Prep: 2% chlorhexidine scrub and sterile drapes applied Technique: seldinger Ultrasound Used for Placement: Yes Central Line Lumen Inserted: triple Post Procedure: sutured in place, good blood return, all ports aspirated, flushed, capped and sterile dressing applied Post Procedure X-Ray: other (N/A) Patient Tolerated Procedure: well and no complications Complications: none Intubation Intubation #1: Intubation Date: 06/25/24 Intubation Time: 02:08 Time out performed: Yes sedative: Etomidate Mg Given: 20 paralytic: Succinylcholine Mg Given: 100 Laryngoscope: Andrew Assist Device Used: fiber optic device Tube Size (cm): 7.5 Method of Intubation: orotracheal Number of Attempts: 1 Tube Secured Depth (cm): 23 Tube Secured Location: lips Tube Placement Confirmation: visualized tube passing through cords, equal breath sounds bilaterally, no breath sounds over epigastrium and confirmation by capnometry Patient Tolerated Procedure: well Intubation Complications: none Medical Decision Making Vital Signs Vital Signs: Vital Signs Temperature 35.3 C L 06/25/24 01:44 Pulse Rate 105 H 06/25/24 01:44 Respiratory Rate 21 H 06/25/24 01:44 Blood Pressure 182/88 H 06/25/24 01:44 Pulse Oximetry 99 06/25/24 01:44 Oxygen Delivery Room Air 06/25/24 01:44 Temperature 35.6 C L 06/25/24 04:31 Pulse Rate 90 06/25/24 05:35 Respiratory Rate 18 06/25/24 05:35 Blood Pressure 120/68 06/25/24 05:34 Pulse Oximetry 100 06/25/24 04:31 Oxygen Delivery Mechanical Ventilation 06/25/24 02:24 Fraction of Inspired Oxygen 50 06/25/24 02:24 Lab Data 06/25/24 02:04 06/25/24 02:04 Labs: Lab Results 06/25/24 06/25/24 06/25/24 Range/Units 02:04 02:44 04:49 WBC 10.3 H (4.5-10.0) K/mm3 RBC 3.78 L (4.2-5.4) M/mm3 Hgb 11.6 L (12.0-15.0) g/dL Hct 35.0 L (37.0-47.0) % MCV 92.6 (80-100) fl MCH 30.7 (26-34) pg MCHC 33.1 (32-36) g/dl RDW 12.5 (11.5-14.5) % Plt Count 309 (150-375) k/mm3 MPV 10.0 (7.4-10.4) fl Immature Gran % (Auto) 0.2 (0-0.5) % Neut % (Auto) 81.2 H (45.5-73.1) % Lymph % (Auto) 12.0 L (18.3-44.2) % [place] % (Auto) 5.9 (2.6-8.5) % Eos % (Auto) 0.3 (0-4.4) % Baso % (Auto) 0.4 (0.2-1.2) % Lymph # (Auto) 1.24 (0.9-3.2) K/mm3 [place] # (Auto) 0.6 (0.1-0.6) K/mm3 Eos # (Auto) 0.0 (0-0.3) K/mm3 Baso # (Auto) 0.0 (0.0-0.1) K/mm3 Abs Immat Gran (auto) 0.02 (0.00-0.031) K/mm3 Absolute Neuts (auto) 8.4 H (1.3-6.7) K/mm3 Absolute Nucleated RBC 0.000 (0.0-0.012) K/mm3 Nucleated RBC % 0.0 (0.0-0.2) % Minute Volume Not Reportable Vent Mode Cmv Tidal Volume 400 ml PEEP 5 cmH2O Peak Inspir Pressure Not Reportable Pressure Support Not Reportable Sodium 138 (137-145) mmol/L Potassium 3.1 L (3.4-5.0) mmol/L Chloride 105 (98-107) mmol/L Carbon Dioxide 24 (22-30) mmol/L Anion Gap 9 (4-12) mmol/L BUN 13 D (7-17) mg/dL Creatinine 1.30 H (0.7-1.0) mg/dL Estim Creat Clear Calc 33 ml/min Estimated GFR 42 L (59 - ) Glucose 154 H (65-110) mg/dL Lactic Acid 0.7 (0.7-2.0) mmol/L Calcium 9.2 (8.4-10.2) mg/dL Magnesium 1.8 (1.6-2.3) mg/dL Total Bilirubin 0.5 (0.2-1.3) mg/dL AST 26 (14-36) U/L ALT 14 (6-35) U/L Alkaline Phosphatase 94 (38-126) U/L Total Creatine Kinase 169 H (30-135) U/L Total Protein 7.0 (6.3-8.2) g/dL Albumin 4.1 (3.5-5.1) g/dL Triglycerides 123 (<150) mg/dL TSH 2.180 (0.465-4.680) uIU/mL Urine Color Dark yellow (Yellow) Urine Appearance Clear (Clear) Urine pH 7.0 (5.0-9.0) Ur Specific [place] 1.006 (1.001-1.035) Urine Protein Negative (Negative) mg/dL Urine Glucose (UA) Negative (Negative) mg/dL Urine Ketones Negative (Negative) mg/dL Ur Blood (Man) Negative (Negative) Urine Nitrate Positive H (Negative) Urine Bilirubin Negative (Negative) Urine Urobilinogen 0.2 (<2.0) mg/dL Leukocyte Esterase Rfl 2+ H (Negative) ROLANDO/UL Urine RBC 0-2 (0-2) /hpf Urine WBC 6-10 H (0-3) /hpf Ur Squamous Epith Cells None seen (Few) /hpf Urine Bacteria 1+ H /hpf Urine Casts 0-2 Salicylates < 1.0 L (2-20) mg/dL Urine Opiates Screen Negative (Negative) Urine Methadone Screen Negative (Negative) Acetaminophen < 10 L (10-30) ug/mL Ur Barbiturates Screen Negative (Negative) Ur Phencyclidine Scrn Negative (Negative) Ur Amphetamine Screen Negative (Negative) U Benzodiazepines Scrn Negative (Negative) Urine Cocaine Screen Negative (Negative) U Cannabinoids Screen Positive A (Negative) Ethyl Alcohol < 10 (<10) mg/dL Influenza A (RT-PCR) Negative (Negative) Influenza B (RT-PCR) Negative (Negative) RSV (RT-PCR) Negative (Negative) SARS-CoV-2 RNA (RT-PCR) Negative (Negative) ABG Data ABG results: 06/25/24 02:44 Puncture Site Right brachial ABG pH 7.342 L ABG pCO2 46.1 H ABG pO2 256.9 H ABG PO2/FiO2 Ratio 5.14 ABG HCO3 24.4 ABG O2 Saturation 99.5 ABG O2 Content 17.7 ABG Base Excess -1.5 A-a Gradient 47.7 Oxyhemoglobin 97.8 Total Hemoglobin 12.4 O2 Delivery Device Ventilator O2 Liters/Min Not Reportable Vent Rate 16 FiO2 50 Critical Care Time Critical Care Time Critical Care Time: Yes Total Critical Care Time: 75 Discharge Plan Discharge Clinical Impression: Intentional overdose, UTI (urinary tract infection) Patient Disposition: Still a Patient Condition: Stable Time of Disposition: 06:00
[2024-06-25 02:11] LABS: Basophils Percent Auto 0.4 % (0.2-1.2); Eosinophils Percent Auto 0.3 % (0-4.4); Hemoglobin 11.6 g/dL (12.0-15.0); Immature Granulocyte Absolute 0.02 K/mm3 (0.00-0.031); Immature Granulocyte Percent A 0.2 % (0-0.5); Lymphocytes Absolute Auto 1.24 K/mm3 (0.9-3.2); Mean Corpuscular HGB Conc 33.1 g/dl (32-36); Mean Corpuscular Hemoglobin 30.7 pg (26-34); Mean Corpuscular Volume 92.6 fl (80-100); Monocytes Absolute Auto 0.6 K/mm3 (0.1-0.6); Monocytes Percent Auto 5.9 % (2.6-8.5); Neutrophils Absolute Auto 8.4 K/mm3 (1.3-6.7); Neutrophils Percent Auto 81.2 % (45.5-73.1); Platelet Count Result 309 k/mm3 (150-375); Red Blood Count 3.78 M/mm3 (4.2-5.4); Red Cell Distribution Width 12.5 % (11.5-14.5); White Blood Count 10.3 K/mm3 (4.5-10.0)
[2024-06-25 02:22] LABS: Acetaminophen < 10 ug/mL (10-30); Alanine Aminotransferase 14 U/L (6-35); Albumin Level 4.1 g/dL (3.5-5.1); Alkaline Phosphatase 94 U/L (38-126); Anion Gap 9 mmol/L (4-12); Aspartate Amino Transferase 26 U/L (14-36); Bilirubin,Total 0.5 mg/dL (0.2-1.3); Blood Urea Nitrogen 13 mg/dL (7-17); Calcium 9.2 mg/dL (8.4-10.2); Carbon Dioxide 24 mmol/L (22-30); Chloride 105 mmol/L (98-107); Estimated CRCL calculation 33 ml/min; Estimated Glomerular Filt Rate 42; Ethanol < 10 mg/dL (<10); Glucose 154 mg/dL (65-110); Magnesium 1.8 mg/dL (1.6-2.3); Potassium 3.1 mmol/L (3.4-5.0); Sodium 138 mmol/L (137-145)
[2024-06-25 02:23] LABS: Salicylate < 1.0 mg/dL (2-20); Triglycerides 123 mg/dL (<150)
[2024-06-25] MEDS: SODIUM CHLORIDE 0.9% IV 1,000 ML 999 ML IV CONT ×2 (02:29→04:05)
[2024-06-25] MEDS: FENTANYL 2,500MCG/NS250ML(*CRX 2,500 MCG/250 ML BAG IV CONT ×2 (02:30→05:27)
[2024-06-25] MEDS: PROPOFOL IV EMULSION 100 ML 1.48 MG IV CONT ×2 (02:31→05:28)
--- NOTE | 2024-06-25 02:52 | PC.NURSE ---
fentanyl titrated to 50mcg - rn double check with brenda hooper
[2024-06-25 02:56] LABS: Add Urine Microscopic? YES; Appearance Urine Clear (Clear); Bacteria Urine 1+ /hpf; Bilirubin Urine Negative (Negative); Blood Urine Negative (Negative); Color Urine Dark Yellow (Yellow); Glucose Urine UA Negative (Negative); Ketones Urine Negative (Negative); Leukocyte Esterase Ur 2+ LEU/UL (Negative); Nitrate Urine Positive (Negative); Non Pathogenic Casts 0-2; Protein Urine Negative (Negative); RBC Urine 0-2 /hpf (0-2); Specific Grav Ur 1.006 (1.001-1.035); Squamous Epithelial Cell Urine None Seen /hpf (Few); Urobilinogen Urine 0.2 mg/dL (<2.0)
[2024-06-25 03:02] LABS: Alveolar/Arterial O2 Gradient 47.7 mmHg; Base Excess ABG -1.5 mEq/l (+/-2.0); Fractional Inspired Oxygen 50 %; HCO3 ABG 24.4 mEq/l (22.0-26.0); Oxygen Content ABG 17.7 %vol (16.0-22.0); Oxygen Saturation ABG 99.5 % (95.0-100.0); Oxyhemoglobin 97.8 % THb (90.0-100.0); PCO2 ABG 46.1 mmHg (35.0-45.0); PO2 ABG 256.9 mmHg (80.0-100.0); PO2 FiO2 Ratio Arterial Blood 5.14 %; Total Hemoglobin 12.4 g/dL (12.0-18.0); pH ABG 7.342 (7.350-7.450)
[2024-06-25 03:06] LABS: Arterial Blood Gas Ventilator rate 16 /MIN; Device VENTILATOR; Modified Allen's Test Pass; Site Drawn RIGHT BRACHIAL
[2024-06-25 03:07] LABS: Arterial Blood Gas PEEP 5 cmH2O; Arterial Blood Gas Tidal Volume 400 ml; Arterial Blood Gas Vent Mode CMV
[2024-06-25 03:26] LABS: Influenza A QL RT-PCR Negative (Negative); Influenza B QL RT-PCR Negative (Negative); RSV RNA, RT-PCR Negative (Negative); SARS-CoV-2 RNA PCR Negative (Negative)
--- NOTE | 2024-06-25 03:39 | PC.NURSE ---
[place] poison control updated on patient condition. Advised to add CK level and urine drug screen. Poison control to call back in a few hours.
[2024-06-25 03:51] LABS: Creatine Kinase 169 U/L (30-135)
[2024-06-25 04:06] LABS: Amphetamine Screen Urine Negative (Negative); Barbiturate Screen Urine Negative (Negative); Benzodiazepines Screen Urine Negative (Negative); Cannabinoid Screen Urine Positive (Negative); Cocaine Screen Urine Negative (Negative); Methadone Screen Urine Negative (Negative); Opiate Screen Urine Negative (Negative); Phencyclidine Screen Urine Negative (Negative)
--- NOTE | 2024-06-25 04:33 | PC.NURSE ---
edp at bedside for central line placement
[2024-06-25 05:06] LABS: Lactic Acid Reflex 0.7 mmol/L (0.7-2.0)
--- NOTE | 2024-06-25 05:22 | ECG_ITS ---
Test Date: 2024-06-25 05:27:37 Measurements Intervals [place] Rate: 87 P: 74 NE: 153 QRS: 89 QRSD: 89 T: 88 QT: 412 QTc: 496 Interpretive Statements SINUS RHYTHM WITH OCCASIONAL SUPRAVENTRICULAR PREMATURE COMPLEXES BORDERLINE T WAVE ABNORMALITY- HIGH LATERAL LEADS BORDERLINE ECG No previous ECG available for comparison Electronically Signed On 06-25-2024 05:28:42 INFECTION CONTROL COORDINATOR by Yakov Quintana D.O.
[2024-06-25] MEDS: NOREPINEPHRINE 8 MG/D5W 250 ML 8 MG/250 ML BAG 9.38 MG IV CONT (05:34)
--- NOTE | 2024-06-25 05:47 | PM.IMHP ---
H&P: HPI History of Present Illness Date/Time: 06/25/24 05:47 Chief Complaint: Overdose Narrative: 58-year-old female with a complex past medical history including diastolic dysfunction, endometriosis status post partial bowel resection with colostomy and subsequent takedown complicated by multiple small-bowel resections with further surgeries requiring hernia repair with infection of mesh and subsequent revision, anxiety, depression, CVA and prior history of overdose who presented to the ER via EMS after the patient's boyfriend called when the patient reported taking a handful of Flexeril and clonazepam. When the patient arrived to the ER she was completely unresponsive and had no gag reflex. The patient subsequent underwent innovation and had a femoral central line placed. Patient's blood pressures initially were normotensive. However the patient was noted to be markedly hypothermic with temperatures of 93?. Patient was placed under a Kaela Hugger and patient's temperature normalized just prior to admission. Patient was transferred to the ICU for further management. Information was obtained from EMS report. They stated the patient had taken the medications just shortly prior to the call out. EMS obtain the information from the patient's boyfriend. The remainder of the patient's history was obtained from review of past medical records Review of Systems Review of Systems: ROS unobtainable: Yes unobtainable due to endotracheal tube PMFSH Past Medical History Medical History (Updated 06/25/24 @ 10:00 by Ofe Yee DO) Anxiety Bowel obstruction Chronic pain Constipation Endometriosis Flank pain History of histoplasmosis History of kidney stones History of MRSA infection History of stroke [facility] Hypotension Lower abdominal pain Migraine Osteoporosis PONV (postoperative nausea and vomiting) Stenosis of right carotid artery 40% stenosis Surgical History Surgical History History of abdominal surgery History of colon resection History of colostomy reversal History of hysterectomy History of pneumonectomy partial (left upper lobe) Family History Family History Unknown No problems noted. Mother Diabetes mellitus Heart disease Hypertension Mother No problems noted. Father Heart disease Hypertension Social History Social History Social History: Surrogate medical decision maker: Sarahy Fairchild, daughter. Code status: Full code. Smoking packs per day: 1.5 Smoking cigarettes per day: 30.0 Years smoked: 12 Smoking pack-years: 18.00 Smoking status: Never smoker Tobacco type: e-cigarettes/vaping Additional smoking assessment comments: QUIT CIGARETTES 10 YEARS AGO, QUIT VAPING 3 MONTHS AGO Alcohol intake: current Drinks per week: 1 Alcohol use details: very rarely Substance use: current Substance use type: marijuana Other substance usage details: thc, has medical card Last use: 09/04/23 Do You Feel Safe in your Home?: Yes Lack of Transportation: No Lack of Food: Never True Current Housing: I Have Housing Concerned About Future Housing: No Difficulty Paying Gas/Electric Bills: No Difficulty Paying for Meds: No Currently Unemployed: No Education: High School Diploma/GED Difficulty w/ Childcare or Family Care: No Living arrangements: alone Spiritual care concerns: No Meds Home Medications and Allergies Home Medications Medication Instructions Recorded Confirmed Type Centrum Silver Women 1 tab-cap PO DAILY 09/04/23 05/20/24 History clonazepam 0.5 mg tablet (Klonopin) 0.5 mg PO TID 09/04/23 05/20/24 History cyclobenzaprine 10 mg tablet 10 mg PO TID 09/04/23 05/20/24 History docusate sodium 100 mg capsule 100 mg PO BID 09/04/23 05/20/24 History ondansetron 8 mg disintegrating 8 mg PO Q6H PRN Nausea And Vomiting 09/04/23 05/20/24 History tablet trazodone 150 mg tablet 150 mg PO HS PRN Sleep 09/04/23 05/20/24 History magnesium hydroxide 400 mg/5 mL 15 ml PO DAILY PRN Constipation 09/05/23 05/20/24 History oral suspension (Milk of Magnesia) polyethylene glycol 3350 17 17 g PO DAILY 09/05/23 05/20/24 History gram/dose oral powder (Miralax) clopidogrel 75 mg tablet 75 mg PO DAILY 05/20/24 05/20/24 History cephalexin 500 mg capsule 500 mg PO Q12H #14 caps 05/28/24 Rx cyclobenzaprine 10 mg tablet 10 mg PO TID PRN muscle spasm #20 05/28/24 Rx tabs metronidazole 500 mg tablet 500 mg PO Q12H #14 tabs 05/28/24 Rx naproxen 250 mg tablet 250 mg PO BID #14 tabs 05/28/24 Rx Allergies Allergy/AdvReac Type Severity Reaction Status Date / Time adhesive tape Allergy Rash Verified 05/28/24 20:53 bupropion [From Wellbutrin] AdvReac ALTERED Verified 05/28/24 20:53 MENTAL STATUS codeine AdvReac Itching Verified 05/28/24 20:53 diphenhydramine AdvReac Jittery Verified 05/28/24 20:53 [From Benadryl] duloxetine [From Cymbalta] AdvReac ALTERED Verified 05/28/24 20:53 MENTAL STATUS gabapentin AdvReac Confusion Verified 05/28/24 20:53 sertraline [From Zoloft] AdvReac Confusion Verified 05/28/24 20:53 Vital Signs Vital Signs - 24 hr 06/25/24 01:44 06/25/24 01:53 06/25/24 01:53 Temperature 95.6 F L Pulse Rate 105 H 105 H 104 H Respiratory Rate 21 H 15 Blood Pressure 182/88 H 182/88 H Pulse Oximetry 99 98 Oxygen Delivery Room Air Fraction of Inspired Oxygen 06/25/24 01:54 06/25/24 01:56 06/25/24 02:24 Temperature Pulse Rate 107 H Respiratory Rate 17 Blood Pressure Pulse Oximetry 94 100 Oxygen Delivery Room Air Mechanical Ventilation Fraction of Inspired Oxygen 50 06/25/24 02:30 06/25/24 02:31 06/25/24 02:51 Temperature Pulse Rate 104 H 104 H 103 H Respiratory Rate 16 19 18 Blood Pressure Pulse Oximetry Oxygen Delivery Fraction of Inspired Oxygen 06/25/24 04:01 06/25/24 02:26 06/25/24 02:27 Temperature 95.6 F L Pulse Rate 102 H 104 H Respiratory Rate 19 19 Blood Pressure 196/79 H Pulse Oximetry 100 99 Oxygen Delivery Fraction of Inspired Oxygen 06/25/24 02:43 06/25/24 02:45 06/25/24 02:46 Temperature 95.0 F L 95.1 F L 95.1 F L Pulse Rate 100 95 91 Respiratory Rate 17 17 17 Blood Pressure 194/83 H Pulse Oximetry 99 100 100 Oxygen Delivery Fraction of Inspired Oxygen 06/25/24 02:51 06/25/24 02:54 06/25/24 02:55 Temperature 95.2 F L 95.2 F L 95.1 F L Pulse Rate 96 104 H 104 H Respiratory Rate 16 17 18 Blood Pressure 195/84 H 179/159 H 187/90 H Pulse Oximetry Oxygen Delivery Fraction of Inspired Oxygen 06/25/24 03:00 06/25/24 03:01 06/25/24 03:05 Temperature 95.2 F L 95.2 F L 95.1 F L Pulse Rate 88 98 89 Respiratory Rate 19 17 19 Blood Pressure 155/74 H 140/68 Pulse Oximetry Oxygen Delivery Fraction of Inspired Oxygen 06/25/24 03:36 06/25/24 03:37 06/25/24 03:40 Temperature 95.3 F L 95.3 F L 95.4 F L Pulse Rate 86 96 87 Respiratory Rate 20 18 17 Blood Pressure 132/73 149/78 H Pulse Oximetry 100 Oxygen Delivery Fraction of Inspired Oxygen 06/25/24 03:45 06/25/24 03:46 06/25/24 03:50 Temperature 95.5 F L 95.5 F L 95.5 F L Pulse Rate 81 80 79 Respiratory Rate 16 16 16 Blood Pressure 113/64 101/60 Pulse Oximetry 100 100 100 Oxygen Delivery Fraction of Inspired Oxygen 06/25/24 04:05 06/25/24 04:24 06/25/24 04:24 Temperature Pulse Rate 65 64 65 Respiratory Rate 16 16 16 Blood Pressure Pulse Oximetry Oxygen Delivery Fraction of Inspired Oxygen 06/25/24 02:46 06/25/24 03:51 06/25/24 04:01 Temperature 95.1 F L 95.5 F L 95.6 F L Pulse Rate 79 70 Respiratory Rate 16 16 Blood Pressure Pulse Oximetry 100 100 Oxygen Delivery Fraction of Inspired Oxygen 06/25/24 04:05 06/25/24 04:15 06/25/24 04:17 Temperature 95.6 F L 95.8 F L 95.8 F L Pulse Rate 65 63 62 Respiratory Rate 16 16 16 Blood Pressure 69/36 L 64/42 L Pulse Oximetry 100 100 100 Oxygen Delivery Fraction of Inspired Oxygen 06/25/24 04:20 06/25/24 04:25 06/25/24 04:30 Temperature 95.8 F L 95.9 F L 96.0 F L Pulse Rate 63 64 66 Respiratory Rate 16 16 16 Blood Pressure 64/40 L 71/49 L 82/58 L Pulse Oximetry 100 100 100 Oxygen Delivery Fraction of Inspired Oxygen 06/25/24 04:31 06/25/24 04:51 06/25/24 04:51 Temperature 96.0 F L Pulse Rate 67 88 88 Respiratory Rate 16 17 16 Blood Pressure Pulse Oximetry 100 Oxygen Delivery Fraction of Inspired Oxygen 06/25/24 05:27 06/25/24 05:28 06/25/24 05:34 Temperature Pulse Rate 90 91 89 Respiratory Rate 16 17 Blood Pressure 120/68 Pulse Oximetry Oxygen Delivery Fraction of Inspired Oxygen 06/25/24 05:35 Temperature Pulse Rate 90 Respiratory Rate 18 Blood Pressure Pulse Oximetry Oxygen Delivery Fraction of Inspired Oxygen Exam Narrative: Weight 49.3 kg BMI 19.9 Const: Other: Thin body habitus, cachectic, intubated and sedated HENMT: Other: Mucous membranes are dry ET tube and OG tube present Eyes: Other: Pupils are equal and sluggishly reactive, positive conjunctival pallor, no scleral icterus Neck: Other: JVD on the right, irregular texture to the thyroid Resp: Other: Equal but decreased breath sounds bilaterally, patient breathing along with the ventilator, coughing against the ET tube Cardio: Other: Regular rate, regular rhythm, no murmur, 2+ bilateral radial pedal pulses GI: Other: Flat, large abdominal scar from xiphoid down to pubis with also low transverse scar as well with multiple scars from port sites, positive bowel sounds, soft, no organomegaly : Other: Cruz catheter placed with dark yellow urine clear in color Skin: Other: No jaundice, no pallor, warm to touch but only the patient's is under Kaela Hugger, no mottling Neuro: Other: Intubated and sedated, does cough insist tube, not following commands, does withdraw from painful stimuli Extrem: Other: No cyanosis, no edema, patient has artificial nails in place so unable to assess nail bed Psych: Other: Intubated and sedated unable to assess otherwise H&P: Results Labs Labs: Laboratory Tests 06/25/24 02:04 06/25/24 02:04 06/25/24 06/25/24 06/25/24 02:03 02:04 02:44 WBC 10.3 H RBC 3.78 L Hgb 11.6 L Hct 35.0 L MCV 92.6 MCH 30.7 MCHC 33.1 RDW 12.5 Plt Count 309 MPV 10.0 Immature Gran % (Auto) 0.2 Neut % (Auto) 81.2 H Lymph % (Auto) 12.0 L [place] % (Auto) 5.9 Eos % (Auto) 0.3 Baso % (Auto) 0.4 Lymph # (Auto) 1.24 [place] # (Auto) 0.6 Eos # (Auto) 0.0 Baso # (Auto) 0.0 Abs Immat Gran (auto) 0.02 Absolute Neuts (auto) 8.4 H Absolute Nucleated RBC 0.000 Nucleated RBC % 0.0 Puncture Site Right brachial ABG pH 7.342 L ABG pCO2 46.1 H ABG pO2 256.9 H ABG PO2/FiO2 Ratio 5.14 ABG HCO3 24.4 ABG O2 Saturation 99.5 ABG O2 Content 17.7 ABG Base Excess -1.5 A-a Gradient 47.7 Oxyhemoglobin 97.8 Total Hemoglobin 12.4 O2 Delivery Device Ventilator O2 Liters/Min Not Reportable Minute Volume Not Reportable Vent Rate 16 Vent Mode Cmv FiO2 50 Tidal Volume 400 PEEP 5 Peak Inspir Pressure Not Reportable Pressure Support Not Reportable Sodium 138 Potassium 3.1 L Chloride 105 Carbon Dioxide 24 Anion Gap 9 BUN 13 D Creatinine 1.30 H Estim Creat Clear Calc 33 Estimated GFR 42 L Glucose 154 H POC Capillary Glucose Lactic Acid Calcium 9.2 Magnesium 1.8 Total Bilirubin 0.5 AST 26 ALT 14 Alkaline Phosphatase 94 Total Creatine Kinase 169 H Total Protein 7.0 Albumin 4.1 Triglycerides Cancelled 123 TSH 2.180 Urine Color Dark yellow Urine Appearance Clear Urine pH 7.0 Ur Specific [place] 1.006 Urine Protein Negative Urine Glucose (UA) Negative Urine Ketones Negative Ur Blood (Man) Negative Urine Nitrate Positive H Urine Bilirubin Negative Urine Urobilinogen 0.2 Leukocyte Esterase Rfl 2+ H Urine RBC 0-2 Urine WBC 6-10 H Ur Squamous Epith Cells None seen Urine Bacteria 1+ H Urine Casts 0-2 Nasal MRSA (PCR) Salicylates < 1.0 L Urine Opiates Screen Negative Urine Methadone Screen Negative Acetaminophen < 10 L Ur Barbiturates Screen Negative Ur Phencyclidine Scrn Negative Ur Amphetamine Screen Negative U Benzodiazepines Scrn Negative Urine Cocaine Screen Negative U Cannabinoids Screen Positive A Ethyl Alcohol < 10 Influenza A (RT-PCR) Negative Influenza B (RT-PCR) Negative RSV (RT-PCR) Negative SARS-CoV-2 RNA (RT-PCR) Negative 06/25/24 06/25/24 06/25/24 04:49 08:38 09:04 WBC RBC Hgb Hct MCV MCH MCHC RDW Plt Count MPV Immature Gran % (Auto) Neut % (Auto) Lymph % (Auto) [place] % (Auto) Eos % (Auto) Baso % (Auto) Lymph # (Auto) [place] # (Auto) Eos # (Auto) Baso # (Auto) Abs Immat Gran (auto) Absolute Neuts (auto) Absolute Nucleated RBC Nucleated RBC % Puncture Site ABG pH ABG pCO2 ABG pO2 ABG PO2/FiO2 Ratio ABG HCO3 ABG O2 Saturation ABG O2 Content ABG Base Excess A-a Gradient Oxyhemoglobin Total Hemoglobin O2 Delivery Device O2 Liters/Min Minute Volume Vent Rate Vent Mode FiO2 Tidal Volume PEEP Peak Inspir Pressure Pressure Support Sodium Potassium Chloride Carbon Dioxide Anion Gap BUN Creatinine Estim Creat Clear Calc Estimated GFR Glucose POC Capillary Glucose 124 H Lactic Acid 0.7 Calcium Magnesium Total Bilirubin AST ALT Alkaline Phosphatase Total Creatine Kinase Total Protein Albumin Triglycerides TSH Urine Color Urine Appearance Urine pH Ur Specific [place] Urine Protein Urine Glucose (UA) Urine Ketones Ur Blood (Man) Urine Nitrate Urine Bilirubin Urine Urobilinogen Leukocyte Esterase Rfl Urine RBC Urine WBC Ur Squamous Epith Cells Urine Bacteria Urine Casts Nasal MRSA (PCR) Pending Salicylates Urine Opiates Screen Urine Methadone Screen Acetaminophen Ur Barbiturates Screen Ur Phencyclidine Scrn Ur Amphetamine Screen U Benzodiazepines Scrn Urine Cocaine Screen U Cannabinoids Screen Ethyl Alcohol Influenza A (RT-PCR) Influenza B (RT-PCR) RSV (RT-PCR) SARS-CoV-2 RNA (RT-PCR) Impressions Head CT 06/25/24 06:28 Impression: No significant abnormality seen. Abdomen X-Ray 06/25/24 06:29 (personally reviewed and interpreted) Impression: NG tube in satisfactory position. Chest X-Ray 06/25/24 06:30 (personally reviewed and interpreted agree with radiologic interpretation Impression: Support tubes, as above. COPD. Clear lungs. EKG: Personally reviewed and interpreted Sinus rhythm, borderline T-wave abnormality lateral leads. Rate 87, QTC upper limit of normal at 496 Assessment and Plan Assessment and plan (1) Acute respiratory failure: Qualifiers: Respiratory failure complication: hypoxia and hypercapnia Qualified Code(s): J96.01 - Acute respiratory failure with hypoxia; J96.02 - Acute respiratory failure with hypercapnia Code(s): J96.00 - Acute respiratory failure, unspecified whether with hypoxia or hypercapnia Status: Acute (2) Sepsis: Qualifiers: Sepsis type: sepsis due to unspecified organism Sepsis acute organ dysfunction status: with acute organ dysfunction Severe sepsis acute organ dysfunction type: acute respiratory failure Acute respiratory failure type: unspecified Severe sepsis shock status: with septic shock Qualified Code(s): A41.9 - Sepsis, unspecified organism; R65.21 - Severe sepsis with septic shock; J96.00 - Acute respiratory failure, unspecified whether with hypoxia or hypercapnia Code(s): A41.9 - Sepsis, unspecified organism Status: Acute (3) Acute kidney injury: Code(s): N17.9 - Acute kidney failure, unspecified Status: Acute (4) Shock: Code(s): R57.9 - Shock, unspecified Status: Acute (5) Encephalopathy: Qualifiers: Encephalopathy type: toxic metabolic Qualified Code(s): G92.8 - Other toxic encephalopathy Code(s): G93.40 - Encephalopathy, unspecified Status: Acute (6) Intentional overdose: Qualifiers: Encounter type: initial encounter Qualified Code(s): T50.902A - Poisoning by unspecified drugs, medicaments and biological substances, intentional self-harm, initial encounter Code(s): T50.902A - Poisoning by unspecified drugs, medicaments and biological substances, intentional self-harm, initial encounter Status: Acute (7) UTI (urinary tract infection): Qualifiers: Urinary tract infection type: acute cystitis Hematuria presence: without hematuria Qualified Code(s): N30.00 - Acute cystitis without hematuria Code(s): N39.0 - Urinary tract infection, site not specified Status: Acute (8) Protein malnutrition: Code(s): E46 - Unspecified protein-calorie malnutrition Status: Acute Plan Patient presented with intentional overdose. She had acute respiratory failure requiring intubation arrival to the ER for airway protection. She was placed on sedation at fentanyl and propofol. She developed hypotension requiring central line placement. Patient was started on mechanical ventilation and admitted to ICU mortgage consultant has been consulted. Initial ABG was reviewed and demonstrated mild hypercapnic respiratory failure with mildly depressed pH. Patient here wrist transition to mortgage consultant prior to into my shift and further ventilator adjustments be made at that time. Chest x-ray was reviewed and demonstrated ET tube in appropriate position. Patient has OG tube to low intermittent suction. Will monitor daily chest x-rays and ABGs. Patient will remain on sedation to maintain RASS of 0 to negative 2 Patient did develop shock likely secondary to a combination of drug intoxication and or sepsis. Patient did received 30 mL/kilos fluid bolus and has been started on pressors with Levophed to maintain maps of 65 and systolic blood pressures greater than 90. Blood cultures have been obtained and are pending. Patient been placed on empiric antibiotic therapy with cefepime and vancomycin. Will check MRSA PCR if MRSA negative will consider discontinuing vancomycin. Patient does have associated acute kidney injury. Patient's baseline creatinine appears to be between 0.7 and 0.9. Will monitor I&O's closely and repeat electrolyte panel in a.m.. Repeat CBC is also been ordered. Has patient urine is suggestive of possible UTI. Urine cultures and blood cultures were obtained as discussed above. Empiric antibiotic therapy with cefepime and vancomycin. Patient did receive adequate IV fluid resuscitation. 55 minute spent in critical care activities Due to a high probability of clinically significant, life threatening deterioration, the patient required my highest level of preparedness to intervene emergently and I personally spent this critical care time directly and personally managing the patient. This critical care time included obtaining a history; examining the patient; pulse oximetry; ordering and review of studies; arranging urgent treatment with development of a management plan; evaluation of patient's response to treatment; frequent reassessment; and discussions with other providers. It was exclusive of separately billable procedures and treating other patients and teaching time. Please see Assessment and Plan section and the rest of the note for further information on patient assessment and treatment. Quality VTE Prophylaxis VTE prophylaxis: pharmacologic ordered (Lovenox 40 mg subQ daily)
--- NOTE | 2024-06-25 06:22 | PC.NURSE ---
blood cultures drawn x 2 with kurin devices and sent to lab with kurin labels in bags. Pt was stuck 1st set on top of left hand and 2nd set of cultures on the top of left thumb. Pt tolerated well.
[2024-06-25] MEDS: CEFEPIME 2 GM/NS 50 ML 2 GM/50 ML BAG IVPB ×2 (06:23→17:57)
[2024-06-25] MEDS: SODIUM CHLORIDE 0.9% IV 1,000 ML 125 ML IV CONT ×3 (06:23→23:25)
--- NOTE | 2024-06-25 07:00 | ADMGEN ---
This patient, Madison Weinberg, was admitted to Intensive Care Unit-5. Patient/family oriented to hospital policies and general routines including ID bracelet, bed and alarms, visiting hours, pain management, procedures, bathroom and other care routines, personal items, smoking policy, room service/diet, and visiting hours. Information on how to activate the Rapid Response Team has been discussed. Patient/Family are encouraged to report perceived risks to care and to ask questions if they do not understand what they are told or what they should do.
--- NOTE | 2024-06-25 07:00 | PC.NURSE ---
Received report from drywall finisher RN, pt arrived at change of shift. Drips infusing at different rates than were previously charted by ED. Propofol running at 10 mcg and fentanyl at 75 mcg.
[2024-06-25] MEDS: VANCOMYCIN 1,250 MG/NS 250 ML 1,250 MG/250 ML BAG 166.67 MG IVPB (08:44)
[2024-06-25] MEDS: POTASSIUM CHLORIDE 20 MEQ PACKET (FOR LIQUID) 40 MEQ FEED TUBE ×2 (08:52→15:25)
[2024-06-25] MEDS: ENOXAPARIN 40 MG/0.4 ML SYRINGE SUB-Q (08:52)
[2024-06-25] MEDS: polyethylene glycoL 3350 17 GM POWD.PACK FEED TUBE (08:52)
[2024-06-25] MEDS: CLOPIDOGREL BISULFATE 75 MG TABLET FEED TUBE (08:52)
[2024-06-25] MEDS: PANTOPRAZOLE SODIUM IV 40 MG VIAL IV PUSH (08:52)
[2024-06-25 09:07] LABS: Glucose Point of Care 124 mg/dl (65-105)
--- NOTE | 2024-06-25 09:16 | PC.NURSE ---
Patient's belongings locked up in the closet in her room. 2 vapes, clonazepam, bhatt, credit cards, and ring locked up in the safe in ICU.
--- NOTE | 2024-06-25 09:24 | ADMGEN ---
This patient, Madison Weinberg, was admitted to Intensive Care Unit-5 on 06/25/24 at 0645. Patient/family oriented to hospital policies and general routines including ID bracelet, bed and alarms, visiting hours, pain management, procedures, bathroom and other care routines, personal items, smoking policy, room service/diet, and visiting hours. Information on how to activate the Rapid Response Team has been discussed. Patient/Family are encouraged to report perceived risks to care and to ask questions if they do not understand what they are told or what they should do.
--- NOTE | 2024-06-25 09:33 | P.CONIN_ITS ---
Assessment and Plan Assessment and plan (1) Acute respiratory failure: Code(s): J96.00 - Acute respiratory failure, unspecified whether with hypoxia or hypercapnia Status: Acute Assessment and Plan: Acute Respiratory failure secondary to Drug overdose encephalopathy. Likely has underlying COPD Continue full mechanical ventilation support to prevent hypoxemia/hypercarbia and end organ damage. ABG and PCXR reviewed. Will increase respiratory rate to 18 Low tidal volume ventilation strategy to prevent volutrauma Will attempt SBT when ready to wean. Bronchodilators sedated with propofol and fentanyl (2) Encephalopathy: Code(s): G93.40 - Encephalopathy, unspecified Status: Acute Assessment and Plan: secondary to drug overdose head CT negative TSH normal ABG reviewed check ammonia level (3) Intentional overdose: Code(s): T50.902A - Poisoning by unspecified drugs, medicaments and biological substances, intentional self-harm, initial encounter Status: Acute Assessment and Plan: with Flexeril and clonazepam. Patient is currently sedated. Suicide precaution and evaluation once patient is extubated (4) UTI (urinary tract infection): Code(s): N39.0 - Urinary tract infection, site not specified Status: Acute Assessment and Plan: blood and urine cultures IV cefepime (5) Shock: Code(s): R57.9 - Shock, unspecified Status: Acute Assessment and Plan: patient lactic acid level was normal the shock could be either sepsis or secondary to sedation as patient is propofol and fentanyl continue IV fluids continue Levophed titration (6) Sepsis: Code(s): A41.9 - Sepsis, unspecified organism Status: Acute Assessment and Plan: secondary to UTI. Management as above. (7) Elevated serum creatinine: Code(s): R79.89 - Other specified abnormal findings of blood chemistry Status: Acute Assessment and Plan: patient presented with creatinine 1.3. Baseline unknown. Patient is getting IV fluids. Monitor CK level will repeat BMP later today. If continues to deteriorate will order further testing. Plan DVT prophylaxis - Lovenox Stress ulcer prophylaxis - BP Nutrition - start Tube Feeds Code Status - Full Code no family at bedside. Total Critical Care Time -35 minutes Due to a high probability of clinically significant, life threatening deterioration, the patient required my highest level of preparedness to intervene emergently and I personally spent this critical care time directly and personally managing the patient. This critical care time included obtaining a history; examining the patient; pulse oximetry; ordering and review of studies; arranging urgent treatment with development of a management plan; evaluation of patient's response to treatment; frequent reassessment; and discussions with other providers. It was exclusive of separately billable procedures and treating other patients and teaching time. Please see Assessment and Plan section and the rest of the note for further information on patient assessment and treatment Community Recreation Coordinator Consult Note Consult date: 06/25/24 Reason for consult: acute respiratory failure HPI: Madison Weinberg is a 58 year old female with past medical history of kidney stones, UTI, abdominal surgery, colon resection, colostomy creation and reversal, hysterectomy, partial pneumonectomy was brought to ER yesterday after overdose. Patient clonazepam and Flexeril at home and became extremity drowsy. Information was provided to EMS by patient's boyfriend was with her but never showed up in the ER. History was not obtainable from patient patient was intubated. patient was not protecting airway and was intubated. Central venous catheter was placed for IV access. Patient was given IV fluids and then later started on Levophed for blood pressure support. At this time when I evaluated the patient she is sedated intubated and unable to provide any further history . History was obtained from patient's chart and physician sign-out. Review of Systems Review of Systems: ROS unobtainable: Yes unobtainable due to endotracheal tube, unobtainable due to medical condition and unobtainable due to mental status PMFSH Past Medical History Medical History Anxiety Bowel obstruction Chronic pain Constipation Endometriosis Flank pain History of histoplasmosis History of kidney stones History of MRSA infection History of stroke SLU Hypotension Lower abdominal pain Migraine Osteoporosis PONV (postoperative nausea and vomiting) Surgical History Surgical History History of abdominal surgery History of colon resection History of colostomy reversal History of hysterectomy History of pneumonectomy partial (left upper lobe) Family History Family History Unknown No problems noted. Mother Diabetes mellitus Heart disease Hypertension Mother No problems noted. Father Heart disease Hypertension Social History Social History Social History: Surrogate medical decision maker: Sarahy Fairchild, daughter. Code status: Full code. Smoking packs per day: 1.5 Smoking cigarettes per day: 30.0 Years smoked: 12 Smoking pack-years: 18.00 Smoking status: Never smoker Tobacco type: e-cigarettes/vaping Additional smoking assessment comments: QUIT CIGARETTES 10 YEARS AGO, QUIT VAPING 3 MONTHS AGO Alcohol intake: current Drinks per week: 1 Alcohol use details: very rarely Substance use: current Substance use type: marijuana Other substance usage details: thc, has medical card Last use: 09/04/23 Do You Feel Safe in your Home?: Yes Lack of Transportation: No Lack of Food: Never True Current Housing: I Have Housing Concerned About Future Housing: No Difficulty Paying Gas/Electric Bills: No Difficulty Paying for Meds: No Currently Unemployed: No Education: High School Diploma/GED Difficulty w/ Childcare or Family Care: No Living arrangements: alone Spiritual care concerns: No Meds Home Medications and Allergies Home Medications Medication Instructions Recorded Confirmed Type Centrum Silver Women 1 tab-cap PO DAILY 09/04/23 05/20/24 History clonazepam 0.5 mg tablet (Klonopin) 0.5 mg PO TID 09/04/23 05/20/24 History cyclobenzaprine 10 mg tablet 10 mg PO TID 09/04/23 05/20/24 History docusate sodium 100 mg capsule 100 mg PO BID 09/04/23 05/20/24 History ondansetron 8 mg disintegrating 8 mg PO Q6H PRN Nausea And Vomiting 09/04/23 05/20/24 History tablet trazodone 150 mg tablet 150 mg PO HS PRN Sleep 09/04/23 05/20/24 History magnesium hydroxide 400 mg/5 mL 15 ml PO DAILY PRN Constipation 09/05/23 05/20/24 History oral suspension (Milk of Magnesia) polyethylene glycol 3350 17 17 g PO DAILY 09/05/23 05/20/24 History gram/dose oral powder (Miralax) clopidogrel 75 mg tablet 75 mg PO DAILY 05/20/24 05/20/24 History cephalexin 500 mg capsule 500 mg PO Q12H #14 caps 05/28/24 Rx cyclobenzaprine 10 mg tablet 10 mg PO TID PRN muscle spasm #20 05/28/24 Rx tabs metronidazole 500 mg tablet 500 mg PO Q12H #14 tabs 05/28/24 Rx naproxen 250 mg tablet 250 mg PO BID #14 tabs 05/28/24 Rx Allergies Allergy/AdvReac Type Severity Reaction Status Date / Time adhesive tape Allergy Rash Verified 05/28/24 20:53 bupropion [From Wellbutrin] AdvReac ALTERED Verified 05/28/24 20:53 MENTAL STATUS codeine AdvReac Itching Verified 05/28/24 20:53 diphenhydramine AdvReac Jittery Verified 05/28/24 20:53 [From Benadryl] duloxetine [From Cymbalta] AdvReac ALTERED Verified 05/28/24 20:53 MENTAL STATUS gabapentin AdvReac Confusion Verified 05/28/24 20:53 sertraline [From Zoloft] AdvReac Confusion Verified 05/28/24 20:53 Vital Signs Vital Signs - 24 hr 06/25/24 01:44 06/25/24 01:53 06/25/24 01:53 Temperature 35.3 C L Pulse Rate 105 H 105 H 104 H Respiratory Rate 21 H 15 Blood Pressure 182/88 H 182/88 H Pulse Oximetry 99 98 Oxygen Delivery Room Air Fraction of Inspired Oxygen 06/25/24 01:54 06/25/24 01:56 06/25/24 02:24 Temperature Pulse Rate 107 H Respiratory Rate 17 Blood Pressure Pulse Oximetry 94 100 Oxygen Delivery Room Air Mechanical Ventilation Fraction of Inspired Oxygen 50 06/25/24 02:30 06/25/24 02:31 06/25/24 02:51 Temperature Pulse Rate 104 H 104 H 103 H Respiratory Rate 16 19 18 Blood Pressure Pulse Oximetry Oxygen Delivery Fraction of Inspired Oxygen 06/25/24 04:01 06/25/24 02:26 06/25/24 02:27 Temperature 35.3 C L Pulse Rate 102 H 104 H Respiratory Rate 19 19 Blood Pressure 196/79 H Pulse Oximetry 100 99 Oxygen Delivery Fraction of Inspired Oxygen 06/25/24 02:43 06/25/24 02:45 06/25/24 02:46 Temperature 35.0 C L 35.1 C L 35.1 C L Pulse Rate 100 95 91 Respiratory Rate 17 17 17 Blood Pressure 194/83 H Pulse Oximetry 99 100 100 Oxygen Delivery Fraction of Inspired Oxygen 06/25/24 02:51 06/25/24 02:54 06/25/24 02:55 Temperature 35.1 C L 35.1 C L 35.1 C L Pulse Rate 96 104 H 104 H Respiratory Rate 16 17 18 Blood Pressure 195/84 H 179/159 H 187/90 H Pulse Oximetry Oxygen Delivery Fraction of Inspired Oxygen 06/25/24 03:00 06/25/24 03:01 06/25/24 03:05 Temperature 35.1 C L 35.1 C L 35.1 C L Pulse Rate 88 98 89 Respiratory Rate 19 17 19 Blood Pressure 155/74 H 140/68 Pulse Oximetry Oxygen Delivery Fraction of Inspired Oxygen 06/25/24 03:36 06/25/24 03:37 06/25/24 03:40 Temperature 35.2 C L 35.2 C L 35.2 C L Pulse Rate 86 96 87 Respiratory Rate 20 18 17 Blood Pressure 132/73 149/78 H Pulse Oximetry 100 Oxygen Delivery Fraction of Inspired Oxygen 06/25/24 03:45 06/25/24 03:46 06/25/24 03:50 Temperature 35.3 C L 35.3 C L 35.3 C L Pulse Rate 81 80 79 Respiratory Rate 16 16 16 Blood Pressure 113/64 101/60 Pulse Oximetry 100 100 100 Oxygen Delivery Fraction of Inspired Oxygen 06/25/24 04:05 06/25/24 04:24 06/25/24 04:24 Temperature Pulse Rate 65 64 65 Respiratory Rate 16 16 16 Blood Pressure Pulse Oximetry Oxygen Delivery Fraction of Inspired Oxygen 06/25/24 02:46 06/25/24 03:51 06/25/24 04:01 Temperature 35.1 C L 35.3 C L 35.3 C L Pulse Rate 79 70 Respiratory Rate 16 16 Blood Pressure Pulse Oximetry 100 100 Oxygen Delivery Fraction of Inspired Oxygen 06/25/24 04:05 06/25/24 04:15 06/25/24 04:17 Temperature 35.3 C L 35.4 C L 35.4 C L Pulse Rate 65 63 62 Respiratory Rate 16 16 16 Blood Pressure 69/36 L 64/42 L Pulse Oximetry 100 100 100 Oxygen Delivery Fraction of Inspired Oxygen 06/25/24 04:20 06/25/24 04:25 06/25/24 04:30 Temperature 35.4 C L 35.5 C L 35.6 C L Pulse Rate 63 64 66 Respiratory Rate 16 16 16 Blood Pressure 64/40 L 71/49 L 82/58 L Pulse Oximetry 100 100 100 Oxygen Delivery Fraction of Inspired Oxygen 06/25/24 04:31 06/25/24 04:51 06/25/24 04:51 Temperature 35.6 C L Pulse Rate 67 88 88 Respiratory Rate 16 17 16 Blood Pressure Pulse Oximetry 100 Oxygen Delivery Fraction of Inspired Oxygen 06/25/24 05:27 06/25/24 05:28 06/25/24 05:34 Temperature Pulse Rate 90 91 89 Respiratory Rate 16 17 Blood Pressure 120/68 Pulse Oximetry Oxygen Delivery Fraction of Inspired Oxygen 06/25/24 05:35 06/25/24 06:22 06/25/24 06:26 Temperature 37.1 C 36.8 C Pulse Rate 90 99 Respiratory Rate 18 16 Blood Pressure 139/68 Pulse Oximetry 99 Oxygen Delivery Fraction of Inspired Oxygen 06/25/24 04:47 06/25/24 04:50 06/25/24 04:55 Temperature 35.7 C L 35.7 C L 35.8 C L Pulse Rate 84 87 85 Respiratory Rate 15 18 14 Blood Pressure 132/68 119/64 Pulse Oximetry 100 100 100 Oxygen Delivery Fraction of Inspired Oxygen 06/25/24 05:01 06/25/24 05:05 06/25/24 05:10 Temperature 35.8 C L 35.9 C L 35.9 C L Pulse Rate 83 82 83 Respiratory Rate 17 16 16 Blood Pressure 109/61 113/60 Pulse Oximetry 100 100 100 Oxygen Delivery Fraction of Inspired Oxygen 06/25/24 05:15 06/25/24 05:16 06/25/24 05:20 Temperature 36.0 C L 36.0 C L 36.1 C L Pulse Rate 83 83 83 Respiratory Rate 16 16 16 Blood Pressure 109/59 L 103/58 L Pulse Oximetry 100 100 100 Oxygen Delivery Fraction of Inspired Oxygen 06/25/24 05:25 06/25/24 05:30 06/25/24 05:31 Temperature 36.2 C L 36.3 C L 36.3 C L Pulse Rate 88 93 90 Respiratory Rate 16 19 16 Blood Pressure 94/74 L 120/68 Pulse Oximetry 100 100 100 Oxygen Delivery Fraction of Inspired Oxygen 06/25/24 05:35 06/25/24 05:55 06/25/24 05:56 Temperature 36.3 C L 36.7 C 36.7 C Pulse Rate 89 92 92 Respiratory Rate 18 16 17 Blood Pressure 114/66 140/62 Pulse Oximetry 100 100 100 Oxygen Delivery Fraction of Inspired Oxygen 06/25/24 06:00 06/25/24 06:01 06/25/24 06:10 Temperature 36.7 C 36.8 C 36.9 C Pulse Rate 97 98 103 H Respiratory Rate 17 17 17 Blood Pressure 149/66 H 149/67 H Pulse Oximetry 100 100 Oxygen Delivery Fraction of Inspired Oxygen 06/25/24 06:15 06/25/24 06:16 06/25/24 06:20 Temperature 37.0 C 37.0 C 37.1 C Pulse Rate 99 100 99 Respiratory Rate 17 18 17 Blood Pressure 149/66 H 139/68 Pulse Oximetry Oxygen Delivery Fraction of Inspired Oxygen 06/25/24 06:30 06/25/24 08:23 06/25/24 08:47 Temperature Pulse Rate 102 H 96 90 Respiratory Rate Blood Pressure 138/80 126/78 Pulse Oximetry 100 Oxygen Delivery Mechanical Ventilation Fraction of Inspired Oxygen 40 06/25/24 09:09 06/25/24 09:01 Temperature Pulse Rate 89 89 Respiratory Rate Blood Pressure 130/78 Pulse Oximetry 100 Oxygen Delivery Mechanical Ventilation Fraction of Inspired Oxygen 35 Exam Narrative: General: Pt is sedated, intubated and on mechanical ventilation Lungs/Chest: Trachea central Coarse BS B/L, No crackles or wheezing. Cardiac: RRR. Normal S1 S2. No murmurs Circulation: Pedal pulses are intact and symmetrical. Abdomen: Decreased bowel sounds. Obese. Soft. NT. ND. Extremities: No clubbing, cyanosis or edema. Warm : Cruz in place Neurologic: Unable to assess due to sedation. Moves all 4 extremities to painful stimuli. PERRL Results Labs 06/25/24 02:04 06/25/24 02:04 Labs: Impressions Head CT 06/25/24 06:28 Impression: No significant abnormality seen. Abdomen X-Ray 06/25/24 06:29 Impression: NG tube in satisfactory position. Chest X-Ray 06/25/24 06:30 Impression: Support tubes, as above. COPD. Clear lungs. Short CBC 06/25/24 Range/Units 02:04 WBC 10.3 H (4.5-10.0) K/mm3 Hgb 11.6 L (12.0-15.0) g/dL Hct 35.0 L (37.0-47.0) % Plt Count 309 (150-375) k/mm3 BMP 06/25/24 02:04 Sodium 138 Potassium 3.1 L Chloride 105 Carbon Dioxide 24 BUN 13 D Creatinine 1.30 H Glucose 154 H Calcium 9.2 Cardiac Enzymes 06/25/24 Range/Units 02:04 Total Creatine Kinase 169 H (30-135) U/L Liver Function 06/25/24 Range/Units 02:04 Total Bilirubin 0.5 (0.2-1.3) mg/dL AST 26 (14-36) U/L ALT 14 (6-35) U/L Alkaline Phosphatase 94 (38-126) U/L Albumin 4.1 (3.5-5.1) g/dL Urine 06/25/24 Range/Units 02:44 Urine Color Dark yellow (Yellow) Urine Appearance Clear (Clear) Urine pH 7.0 (5.0-9.0) Ur Specific [place] 1.006 (1.001-1.035) Urine Protein Negative (Negative) mg/dL Urine Glucose (UA) Negative (Negative) mg/dL Hospitalist MIPS Advance Care Plan I have confirmed that the patient's Advanced Care Plan is present, code status is documented, or surrogate decision maker is listed in patient medical record.: Yes Medication Reconciliation I have utilized all available resources to obtain, update and review the patients current medications (includes all prescriptions, OTC, herbals, cannabis, and nutritional supplements).: Yes
--- NOTE | 2024-06-25 10:08 | P.PNIM_ITS ---
Progress Note: A&P Assessment and Plan (1) Acute respiratory failure: Qualifiers: Respiratory failure complication: hypoxia and hypercapnia Qualified Code(s): J96.01 - Acute respiratory failure with hypoxia; J96.02 - Acute respiratory failure with hypercapnia Code(s): J96.00 - Acute respiratory failure, unspecified whether with hypoxia or hypercapnia Status: Acute (2) Sepsis: Qualifiers: Acute respiratory failure type: unspecified Sepsis acute organ dysfunction status: with acute organ dysfunction Sepsis type: sepsis due to unspecified organism Severe sepsis acute organ dysfunction type: acute respiratory failure Severe sepsis shock status: with septic shock Qualified Code(s): A41.9 - Sepsis, unspecified organism; R65.21 - Severe sepsis with septic shock; J96.00 - Acute respiratory failure, unspecified whether with hypoxia or hypercapnia Code(s): A41.9 - Sepsis, unspecified organism Status: Acute (3) Acute kidney injury: Code(s): N17.9 - Acute kidney failure, unspecified Status: Acute (4) Shock: Code(s): R57.9 - Shock, unspecified Status: Acute (5) Encephalopathy: Qualifiers: Encephalopathy type: toxic metabolic Qualified Code(s): G92.8 - Other toxic encephalopathy Code(s): G93.40 - Encephalopathy, unspecified Status: Acute (6) Intentional overdose: Qualifiers: Encounter type: initial encounter Qualified Code(s): T50.902A - Poisoning by unspecified drugs, medicaments and biological substances, intentional self-harm, initial encounter Code(s): T50.902A - Poisoning by unspecified drugs, medicaments and biological substances, intentional self-harm, initial encounter Status: Acute (7) UTI (urinary tract infection): Qualifiers: Hematuria presence: without hematuria Urinary tract infection type: acute cystitis Qualified Code(s): N30.00 - Acute cystitis without hematuria Code(s): N39.0 - Urinary tract infection, site not specified Status: Acute (8) Protein malnutrition: Code(s): E46 - Unspecified protein-calorie malnutrition Status: Acute (9) Elevated serum creatinine: Code(s): R79.89 - Other specified abnormal findings of blood chemistry Status: Acute Plan (1) Acute respiratory failure: Code(s): J96.00 - Acute respiratory failure, unspecified whether with hypoxia or hypercapnia Status: Acute Assessment and Plan: Acute Respiratory failure secondary to Drug overdose encephalopathy. Likely has underlying COPD Patient is intubated he, patient is on mechanical ventilation, sedated with propofol and fentanyl Management per ambulance paramedic Follow-up ABG Continues bronchodilators (2) Encephalopathy: Code(s): G93.40 - Encephalopathy, unspecified Status: Acute Assessment and Plan: Confused upon arrival, due to drug overdose head CT negative TSH normal ABG reviewed check ammonia level Intentional overdose: Code(s): T50.902A - Poisoning by unspecified drugs, medicaments and biological substances, intentional self-harm, initial encounter Status: Acute Assessment and Plan: with Flexeril and clonazepam. Patient is currently sedated. Suicide precaution and evaluation once patient is extubated UTI (urinary tract infection): Code(s): N39.0 - Urinary tract infection, site not specified Status: Acute Assessment and Plan: blood and urine cultures pending Continue IV cefepime Septic shock Likely resulting from UTI, patient lactic acid level was normal the shock could be either sepsis or secondary to sedation as patient is propofol and fentanyl continue IV fluids continue Levophed titration Elevated serum creatinine: Code(s): R79.89 - Other specified abnormal findings of blood chemistry Status: Acute Assessment and Plan: patient presented with creatinine 1.3. Baseline unknown. Patient is getting IV fluids. Monitor CK level will repeat BMP later today. If continues to deteriorate will order further testing. DVT prophylaxis - Lovenox Nutrition - start Tube Feeds Code Status - Full Code Subjective Date/time seen: 06/25/24 10:08 Interval history: I saw examined the patient in ICU. Patient is intubated, on mechanical ventilation with propofol and and fentanyl sedation, blood pressure is stabilized with norepinephrine, mild hypothermia, temperature 97.3?. Labs reviewed Exam Narrative: GENERAL: Somnolent in no acute distress. Well-nourished. - EYES: EOMI. Anicteric. - HENT: Moist mucous membranes. - LUNGS: Clear to auscultation bilateral ly, no wheezing, rhonchi, or rales. - CARDIOVASCULAR: Regular rate and rhyth m. No murmur. No JVD. - ABDOMEN: Soft, non-tender and non-dist ended. No palpable masses. - EXTREMITIES: No edema. Peripheral puls es 2+. Non-tender. - NEUROLOGIC: Unable to evaluate - PSYCHIATRIC: Unresponsive on sedation , not oriented x 3. - SKIN: No rashes or lesions. Warm. - LYMPH: No cervical lymphadenopathy. Objective Data Vital Signs Vital Signs: Vital Signs - 24 hr 06/25/24 01:44 06/25/24 01:53 06/25/24 01:53 Temperature 95.6 F L Pulse Rate 105 H 105 H 104 H Respiratory Rate 21 H 15 Blood Pressure 182/88 H 182/88 H Pulse Oximetry 99 98 Oxygen Delivery Room Air Fraction of Inspired Oxygen 06/25/24 01:54 06/25/24 01:56 06/25/24 02:24 Temperature Pulse Rate 107 H Respiratory Rate 17 Blood Pressure Pulse Oximetry 94 100 Oxygen Delivery Room Air Mechanical Ventilation Fraction of Inspired Oxygen 50 06/25/24 02:30 06/25/24 02:31 06/25/24 02:51 Temperature Pulse Rate 104 H 104 H 103 H Respiratory Rate 16 19 18 Blood Pressure Pulse Oximetry Oxygen Delivery Fraction of Inspired Oxygen 06/25/24 04:01 06/25/24 02:26 06/25/24 02:27 Temperature 95.6 F L Pulse Rate 102 H 104 H Respiratory Rate 19 19 Blood Pressure 196/79 H Pulse Oximetry 100 99 Oxygen Delivery Fraction of Inspired Oxygen 06/25/24 02:43 06/25/24 02:45 06/25/24 02:46 Temperature 95.0 F L 95.1 F L 95.1 F L Pulse Rate 100 95 91 Respiratory Rate 17 17 17 Blood Pressure 194/83 H Pulse Oximetry 99 100 100 Oxygen Delivery Fraction of Inspired Oxygen 06/25/24 02:51 06/25/24 02:54 06/25/24 02:55 Temperature 95.2 F L 95.2 F L 95.1 F L Pulse Rate 96 104 H 104 H Respiratory Rate 16 17 18 Blood Pressure 195/84 H 179/159 H 187/90 H Pulse Oximetry Oxygen Delivery Fraction of Inspired Oxygen 06/25/24 03:00 06/25/24 03:01 06/25/24 03:05 Temperature 95.2 F L 95.2 F L 95.1 F L Pulse Rate 88 98 89 Respiratory Rate 19 17 19 Blood Pressure 155/74 H 140/68 Pulse Oximetry Oxygen Delivery Fraction of Inspired Oxygen 06/25/24 03:36 06/25/24 03:37 06/25/24 03:40 Temperature 95.3 F L 95.3 F L 95.4 F L Pulse Rate 86 96 87 Respiratory Rate 20 18 17 Blood Pressure 132/73 149/78 H Pulse Oximetry 100 Oxygen Delivery Fraction of Inspired Oxygen 06/25/24 03:45 06/25/24 03:46 06/25/24 03:50 Temperature 95.5 F L 95.5 F L 95.5 F L Pulse Rate 81 80 79 Respiratory Rate 16 16 16 Blood Pressure 113/64 101/60 Pulse Oximetry 100 100 100 Oxygen Delivery Fraction of Inspired Oxygen 06/25/24 04:05 06/25/24 04:24 06/25/24 04:24 Temperature Pulse Rate 65 64 65 Respiratory Rate 16 16 16 Blood Pressure Pulse Oximetry Oxygen Delivery Fraction of Inspired Oxygen 06/25/24 02:46 06/25/24 03:51 06/25/24 04:01 Temperature 95.1 F L 95.5 F L 95.6 F L Pulse Rate 79 70 Respiratory Rate 16 16 Blood Pressure Pulse Oximetry 100 100 Oxygen Delivery Fraction of Inspired Oxygen 06/25/24 04:05 06/25/24 04:15 06/25/24 04:17 Temperature 95.6 F L 95.8 F L 95.8 F L Pulse Rate 65 63 62 Respiratory Rate 16 16 16 Blood Pressure 69/36 L 64/42 L Pulse Oximetry 100 100 100 Oxygen Delivery Fraction of Inspired Oxygen 06/25/24 04:20 06/25/24 04:25 06/25/24 04:30 Temperature 95.8 F L 95.9 F L 96.0 F L Pulse Rate 63 64 66 Respiratory Rate 16 16 16 Blood Pressure 64/40 L 71/49 L 82/58 L Pulse Oximetry 100 100 100 Oxygen Delivery Fraction of Inspired Oxygen 06/25/24 04:31 06/25/24 04:51 06/25/24 04:51 Temperature 96.0 F L Pulse Rate 67 88 88 Respiratory Rate 16 17 16 Blood Pressure Pulse Oximetry 100 Oxygen Delivery Fraction of Inspired Oxygen 06/25/24 05:27 06/25/24 05:28 06/25/24 05:34 Temperature Pulse Rate 90 91 89 Respiratory Rate 16 17 Blood Pressure 120/68 Pulse Oximetry Oxygen Delivery Fraction of Inspired Oxygen 06/25/24 05:35 06/25/24 06:22 06/25/24 06:26 Temperature 98.8 F 98.3 F Pulse Rate 90 99 Respiratory Rate 18 16 Blood Pressure 139/68 Pulse Oximetry 99 Oxygen Delivery Fraction of Inspired Oxygen 06/25/24 04:47 06/25/24 04:50 06/25/24 04:55 Temperature 96.2 F L 96.3 F L 96.4 F L Pulse Rate 84 87 85 Respiratory Rate 15 18 14 Blood Pressure 132/68 119/64 Pulse Oximetry 100 100 100 Oxygen Delivery Fraction of Inspired Oxygen 06/25/24 05:01 06/25/24 05:05 06/25/24 05:10 Temperature 96.5 F L 96.6 F L 96.7 F L Pulse Rate 83 82 83 Respiratory Rate 17 16 16 Blood Pressure 109/61 113/60 Pulse Oximetry 100 100 100 Oxygen Delivery Fraction of Inspired Oxygen 06/25/24 05:15 06/25/24 05:16 06/25/24 05:20 Temperature 96.8 F L 96.8 F L 96.9 F L Pulse Rate 83 83 83 Respiratory Rate 16 16 16 Blood Pressure 109/59 L 103/58 L Pulse Oximetry 100 100 100 Oxygen Delivery Fraction of Inspired Oxygen 06/25/24 05:25 06/25/24 05:30 06/25/24 05:31 Temperature 97.2 F L 97.3 F L 97.3 F L Pulse Rate 88 93 90 Respiratory Rate 16 19 16 Blood Pressure 94/74 L 120/68 Pulse Oximetry 100 100 100 Oxygen Delivery Fraction of Inspired Oxygen 06/25/24 05:35 06/25/24 05:55 06/25/24 05:56 Temperature 97.4 F L 98.0 F 98.0 F Pulse Rate 89 92 92 Respiratory Rate 18 16 17 Blood Pressure 114/66 140/62 Pulse Oximetry 100 100 100 Oxygen Delivery Fraction of Inspired Oxygen 06/25/24 06:00 06/25/24 06:01 06/25/24 06:10 Temperature 98.1 F 98.2 F 98.5 F Pulse Rate 97 98 103 H Respiratory Rate 17 17 17 Blood Pressure 149/66 H 149/67 H Pulse Oximetry 100 100 Oxygen Delivery Fraction of Inspired Oxygen 06/25/24 06:15 06/25/24 06:16 06/25/24 06:20 Temperature 98.6 F 98.6 F 98.7 F Pulse Rate 99 100 99 Respiratory Rate 17 18 17 Blood Pressure 149/66 H 139/68 Pulse Oximetry Oxygen Delivery Fraction of Inspired Oxygen 06/25/24 06:30 06/25/24 08:23 06/25/24 08:47 Temperature Pulse Rate 102 H 96 90 Respiratory Rate Blood Pressure 138/80 126/78 Pulse Oximetry 100 Oxygen Delivery Mechanical Ventilation Fraction of Inspired Oxygen 40 06/25/24 09:09 06/25/24 09:01 06/25/24 09:49 Temperature Pulse Rate 89 89 88 Respiratory Rate Blood Pressure 130/78 130/72 Pulse Oximetry 100 Oxygen Delivery Mechanical Ventilation Fraction of Inspired Oxygen 35 Intake/Output Intake/Output: Intake & Output 06/22/24 06/23/24 06/24/24 06/25/24 23:59 23:59 23:59 23:59 Intake Total 1045.5 Balance 1045.5 Meds/Results Medications: Active Medications Generic Name Dose Route Start Last Admin Trade Name Freq PRN Reason Stop Dose Admin Albuterol/Ipratropium 3 ml 06/25/24 08:15 Ipratropium 0.5 Mg/Albuterol Sulfate 2.5 Mg Ampul.Neb 3 Ml INHALATION Q6HRT PRN Wheezing Clopidogrel Bisulfate 75 mg 06/25/24 09:00 06/25/24 08:52 Clopidogrel Bisulfate 75 Mg Tablet FEED TUBE 75 mg QAM ELIU Administration Dextrose 12.5 gm 06/25/24 08:15 Dextrose 50% 25 Gm/50 Ml Syringe IV PUSH PRN PRN Hypoglycemia Protocol Enoxaparin Sodium 40 mg 06/25/24 09:00 06/25/24 08:52 Enoxaparin 40 Mg/0.4 Ml Syringe SUB-Q 40 mg DAILY ELIU Administration Glucagon 1 mg 06/25/24 08:15 Glucagon For Inj 1 Mg Vial IM PRN PRN Hypoglycemia Protocol Glucose 15 gm 06/25/24 08:15 Glucose Oral Gel 15 Gm Of Glucse In 37.5 Gm Tube PO PRN PRN Hypoglycemia Protocol Fentanyl Citrate 2,500 mcg in 250 mls @ 5 mls/hr 06/25/24 05:00 06/25/24 05:35 Fentanyl 2,500 Mcg/Ns 250 Ml IV CONT 50 mcg/hr .Q50H ELIU 5 mls/hr Titration Protocol 50 MCG/HR Propofol 100 mls @ 1.479 mls/hr 06/25/24 05:00 06/25/24 05:28 Diprivan IV CONT 5 mcg/kg/min .[id number] ELIU 1.48 mls/hr Administration Protocol 5 MCG/KG/MIN Cefepime HCl 2 gm in 50 mls @ 100 mls/hr 06/25/24 18:00 Maxipime 2 Gm/Ns 50 Ml IVPB Q12H ELIU Sodium Chloride 1,000 mls @ 125 mls/hr 06/25/24 05:30 06/25/24 06:23 Normal Saline Iv IV CONT 125 mls/hr .Q8H ELIU Administration Norepinephrine Bitartrate 8 mg in 250 mls @ 1.875 mls/hr 06/25/24 05:29 06/25/24 09:49 Levophed 8 Mg/D5w 250 Ml IV CONT 06/26/24 05:28 1 mcg/min .Q24H STA 1.88 mls/hr Titration Protocol 1 MCG/MIN Vancomycin HCl 750 mg in 250 mls @ 250 mls/hr 06/26/24 19:00 Vancomycin 750 Mg/Ns 250 Ml IVPB Q36H ELIU Dextrose 1,000 mls @ 100 mls/hr 06/25/24 08:15 Dextrose 5% 1,000 Ml IVPB PRN PRN Hypoglycemia Protocol Insulin Aspart 3 - 6 units 06/25/24 12:00 Insulin Aspart (*Bkc) 100 Units/Ml SUB-Q Q6HR ELIU Protocol Pantoprazole Sodium 40 mg 06/25/24 09:00 06/25/24 08:52 Pantoprazole Sodium Iv 40 Mg Vial IV PUSH 40 mg QAM ELIU Administration Polyethylene Glycol 17 gm 06/25/24 09:00 06/25/24 08:52 Polyethylene Glycol 3350 17 Gm Powd.Pack FEED TUBE 17 gm QAM ELIU Administration Potassium Chloride 40 meq 06/25/24 08:15 06/25/24 08:52 Potassium Chloride 20 Meq Packet (For Liquid) FEED TUBE 06/25/24 14:16 40 meq Q6H ELIU Administration Radiology Results: ITS Impressions Head CT 06/25/24 06:28 Impression: No significant abnormality seen. Abdomen X-Ray 06/25/24 06:29 Impression: NG tube in satisfactory position. Chest X-Ray 06/25/24 06:30 Impression: Support tubes, as above. COPD. Clear lungs. Labs Labs: Laboratory Results - last 24 hr 06/25/24 06/25/24 06/25/24 02:03 02:04 02:44 WBC 10.3 H RBC 3.78 L Hgb 11.6 L Hct 35.0 L MCV 92.6 MCH 30.7 MCHC 33.1 RDW 12.5 Plt Count 309 MPV 10.0 Immature Gran % (Auto) 0.2 Neut % (Auto) 81.2 H Lymph % (Auto) 12.0 L Chambers % (Auto) 5.9 Eos % (Auto) 0.3 Baso % (Auto) 0.4 Lymph # (Auto) 1.24 Chambers # (Auto) 0.6 Eos # (Auto) 0.0 Baso # (Auto) 0.0 Abs Immat Gran (auto) 0.02 Absolute Neuts (auto) 8.4 H Absolute Nucleated RBC 0.000 Nucleated RBC % 0.0 Puncture Site Right brachial ABG pH 7.342 L ABG pCO2 46.1 H ABG pO2 256.9 H ABG PO2/FiO2 Ratio 5.14 ABG HCO3 24.4 ABG O2 Saturation 99.5 ABG O2 Content 17.7 ABG Base Excess -1.5 A-a Gradient 47.7 Oxyhemoglobin 97.8 Total Hemoglobin 12.4 O2 Delivery Device Ventilator O2 Liters/Min Not Reportable Minute Volume Not Reportable Vent Rate 16 Vent Mode Cmv FiO2 50 Tidal Volume 400 PEEP 5 Peak Inspir Pressure Not Reportable Pressure Support Not Reportable Sodium 138 Potassium 3.1 L Chloride 105 Carbon Dioxide 24 Anion Gap 9 BUN 13 D Creatinine 1.30 H Estim Creat Clear Calc 33 Estimated GFR 42 L Glucose 154 H POC Capillary Glucose Lactic Acid Calcium 9.2 Magnesium 1.8 Total Bilirubin 0.5 AST 26 ALT 14 Alkaline Phosphatase 94 Total Creatine Kinase 169 H Total Protein 7.0 Albumin 4.1 Triglycerides Cancelled 123 TSH 2.180 Urine Color Dark yellow Urine Appearance Clear Urine pH 7.0 Ur Specific [place] 1.006 Urine Protein Negative Urine Glucose (UA) Negative Urine Ketones Negative Ur Blood (Man) Negative Urine Nitrate Positive H Urine Bilirubin Negative Urine Urobilinogen 0.2 Leukocyte Esterase Rfl 2+ H Urine RBC 0-2 Urine WBC 6-10 H Ur Squamous Epith Cells None seen Urine Bacteria 1+ H Urine Casts 0-2 Salicylates < 1.0 L Urine Opiates Screen Negative Urine Methadone Screen Negative Acetaminophen < 10 L Ur Barbiturates Screen Negative Ur Phencyclidine Scrn Negative Ur Amphetamine Screen Negative U Benzodiazepines Scrn Negative Urine Cocaine Screen Negative U Cannabinoids Screen Positive A Ethyl Alcohol < 10 Influenza A (RT-PCR) Negative Influenza B (RT-PCR) Negative RSV (RT-PCR) Negative SARS-CoV-2 RNA (RT-PCR) Negative 06/25/24 06/25/24 04:49 09:04 WBC RBC Hgb Hct MCV MCH MCHC RDW Plt Count MPV Immature Gran % (Auto) Neut % (Auto) Lymph % (Auto) Chambers % (Auto) Eos % (Auto) Baso % (Auto) Lymph # (Auto) Chambers # (Auto) Eos # (Auto) Baso # (Auto) Abs Immat Gran (auto) Absolute Neuts (auto) Absolute Nucleated RBC Nucleated RBC % Puncture Site ABG pH ABG pCO2 ABG pO2 ABG PO2/FiO2 Ratio ABG HCO3 ABG O2 Saturation ABG O2 Content ABG Base Excess A-a Gradient Oxyhemoglobin Total Hemoglobin O2 Delivery Device O2 Liters/Min Minute Volume Vent Rate Vent Mode FiO2 Tidal Volume PEEP Peak Inspir Pressure Pressure Support Sodium Potassium Chloride Carbon Dioxide Anion Gap BUN Creatinine Estim Creat Clear Calc Estimated GFR Glucose POC Capillary Glucose 124 H Lactic Acid 0.7 Calcium Magnesium Total Bilirubin AST ALT Alkaline Phosphatase Total Creatine Kinase Total Protein Albumin Triglycerides TSH Urine Color Urine Appearance Urine pH Ur Specific [place] Urine Protein Urine Glucose (UA) Urine Ketones Ur Blood (Man) Urine Nitrate Urine Bilirubin Urine Urobilinogen Leukocyte Esterase Rfl Urine RBC Urine WBC Ur Squamous Epith Cells Urine Bacteria Urine Casts Salicylates Urine Opiates Screen Urine Methadone Screen Acetaminophen Ur Barbiturates Screen Ur Phencyclidine Scrn Ur Amphetamine Screen U Benzodiazepines Scrn Urine Cocaine Screen U Cannabinoids Screen Ethyl Alcohol Influenza A (RT-PCR) Influenza B (RT-PCR) RSV (RT-PCR) SARS-CoV-2 RNA (RT-PCR)
[2024-06-25 11:32] LABS: MRSA (PCR) NOT DETECTED (NOT DETECTE)
[2024-06-25 12:40] LABS: Ammonia < 9 umol/L (9-30)
[2024-06-25 12:43] LABS: Glucose Point of Care 92 mg/dl (65-105)
[2024-06-25 12:53] LABS: Anion Gap 4 mmol/L (4-12); Blood Urea Nitrogen 8 mg/dL (7-17); Calcium 7.7 mg/dL (8.4-10.2); Carbon Dioxide 22 mmol/L (22-30); Chloride 113 mmol/L (98-107); Estimated CRCL calculation 47 ml/min; Estimated Glomerular Filt Rate > 60; Glucose 84 mg/dL (65-110); Sodium 139 mmol/L (137-145)
--- NOTE | 2024-06-25 15:59 | ECG_ITS ---
Test Date: 2024-06-25 16:12:45 Measurements Intervals [place] Rate: 80 P: 73 WA: 153 QRS: 87 QRSD: 85 T: 88 QT: 405 QTc: 468 Interpretive Statements SINUS RHYTHM MINIMAL Q WAVES- INFERIOR LEADS BORDERLINE T WAVE ABNORMALITY- HIGH LATERAL LEADS BORDERLINE ECG Compared to ECG 06/25/2024 05:27:37 No significant changes Electronically Signed On 06-25-2024 16:37:17 GLUING CREW LEADER by Yakov Quintana D.O.
[2024-06-25 18:07] LABS: Glucose Point of Care 97 mg/dl (65-105)
[2024-06-25 23:59] LABS: Glucose Point of Care 115 mg/dl (65-105)
[2024-06-26] VITALS (37 sets, daily range): BP systolic 93–153; BP diastolic 55–84; PULSE 61–123; RESP 13–40; TEMP 36.5–37.9; O2SAT 97–100
[2024-06-26 06:12] LABS: Hematocrit 29.8 % (37.0-47.0); Hemoglobin 9.4 g/dL (12.0-15.0); Mean Corpuscular HGB Conc 31.5 g/dl (32-36); Mean Corpuscular Hemoglobin 30.9 pg (26-34); Mean Platelet Volume 10.1 fl (7.4-10.4); Platelet Count Result 199 k/mm3 (150-375); Red Blood Count 3.04 M/mm3 (4.2-5.4); Red Cell Distribution Width 13.1 % (11.5-14.5)
[2024-06-26] MEDS: FENTANYL 2,500MCG/NS250ML(*CRX 2,500 MCG/250 ML BAG 7.5 MCG IV CONT (06:14)
[2024-06-26] MEDS: CEFEPIME 2 GM/NS 50 ML 2 GM/50 ML BAG IVPB ×2 (06:16→17:08)
[2024-06-26 06:17] LABS: Alveolar/Arterial O2 Gradient 24.6 mmHg; Base Excess ABG -6.2 mEq/l (+/-2.0); Carboxyhemoglobin 0.3 % THb (0-2.0); Fractional Inspired Oxygen 30 %; HCO3 ABG 16.4 mEq/l (22.0-26.0); Methemoglobin ABG 0.3 %THb (0-1.5); Oxygen Content ABG 14.8 %vol (16.0-22.0); Oxygen Saturation ABG 99.2 % (95.0-100.0); Oxyhemoglobin 98.6 % THb (90.0-100.0); PCO2 ABG 24.2 mmHg (35.0-45.0); PO2 ABG 160.9 mmHg (80.0-100.0); PO2 FiO2 Ratio Arterial Blood 5.36 %; Reduced Hemoglobin 0.8 %THb (0-5.0); Total Hemoglobin 10.4 g/dL (12.0-18.0)
[2024-06-26 06:18] LABS: Device VENTILATOR; Modified Allen's Test Pass; Site Drawn RIGHT BRACHIAL
[2024-06-26 06:19] LABS: Arterial Blood Gas PEEP 5 cmH2O; Arterial Blood Gas Tidal Volume 400 ml; Arterial Blood Gas Vent Mode CMV; Arterial Blood Gas Ventilator rate 18 /MIN
[2024-06-26 06:23] LABS: Alanine Aminotransferase 9 U/L (6-35); Albumin Level 2.6 g/dL (3.5-5.1); Alkaline Phosphatase 67 U/L (38-126); Anion Gap 2 mmol/L (4-12); Aspartate Amino Transferase 19 U/L (14-36); Bilirubin,Total 0.3 mg/dL (0.2-1.3); Blood Urea Nitrogen 9 mg/dL (7-17); Calcium 7.9 mg/dL (8.4-10.2); Carbon Dioxide 21 mmol/L (22-30); Chloride 115 mmol/L (98-107); Estimated CRCL calculation 53 ml/min; Estimated Glomerular Filt Rate > 60; Glucose 109 mg/dL (65-110); Magnesium 1.6 mg/dL (1.6-2.3); Potassium 4.1 mmol/L (3.4-5.0); Sodium 138 mmol/L (137-145)
[2024-06-26] MEDS: SODIUM CHLORIDE 0.9% IV 1,000 ML 125 ML IV CONT (07:49)
[2024-06-26] MEDS: CLOPIDOGREL BISULFATE 75 MG TABLET FEED TUBE (07:50)
[2024-06-26] MEDS: ENOXAPARIN 40 MG/0.4 ML SYRINGE SUB-Q (07:50)
[2024-06-26] MEDS: polyethylene glycoL 3350 17 GM POWD.PACK FEED TUBE (07:51)
[2024-06-26] MEDS: PANTOPRAZOLE SODIUM IV 40 MG VIAL IV PUSH (07:51)
[2024-06-26] MEDS: dexmedeTOMIDine 400 MCG/100 ML 400 MCG/100 ML BAG 19.28 MCG IV CONT (08:06)
--- NOTE | 2024-06-26 08:57 | WPDINTPN ---
Progress Note: A&P Assessment and Plan (1) Acute respiratory failure: Qualifiers: Respiratory failure complication: hypoxia and hypercapnia Qualified Code(s): J96.01 - Acute respiratory failure with hypoxia; J96.02 - Acute respiratory failure with hypercapnia Code(s): J96.00 - Acute respiratory failure, unspecified whether with hypoxia or hypercapnia Status: Acute Assessment and Plan: 06/25: Acute Respiratory failure secondary to Drug overdose, encephalopathy. Likely has underlying COPD, patient was intubated in the ER -Continue full mechanical ventilation support to prevent hypoxemia/hypercarbia and end organ damage. ABG and PCXR reviewed. -after spontaneous awakening trial, patient was agitated, anxious, the bedside RN and myself tried to explain to her that we need to place her on a breathing trial to extubate her from the breathing machine, patient was just not wanting to listen, was tachypneic, tachycardic so placed her back on the mechanical ventilator -have asked the bedside RN to start Precedex infusion, once patient is more calm, will evaluate and place her back on SBT for extubation -Low tidal volume ventilation strategy to prevent volutrauma -continue Bronchodilators -off propofol and fentanyl, currently on Precedex infusion (2) Encephalopathy: Qualifiers: Encephalopathy type: toxic metabolic Qualified Code(s): G92.8 - Other toxic encephalopathy Code(s): G93.40 - Encephalopathy, unspecified Status: Acute Assessment and Plan: Likely secondary to drug overdose, patient also has COPD which could have affected in her encephalopathy -06/25: head CT negative - TSH normal -ammonia levels are normal -patient more awake, agitated, anxious this morning, is able to follow simple commands (3) Intentional overdose: Qualifiers: Encounter type: initial encounter Qualified Code(s): T50.902A - Poisoning by unspecified drugs, medicaments and biological substances, intentional self-harm, initial encounter Code(s): T50.902A - Poisoning by unspecified drugs, medicaments and biological substances, intentional self-harm, initial encounter Status: Acute Assessment and Plan: -likely overdose with Flexeril and clonazepam. Unknown quantity, -continue suicide precautions -once patient is extubated, will have crisis management and supervisor case loading evaluate the patient (4) UTI (urinary tract infection): Qualifiers: Hematuria presence: without hematuria Urinary tract infection type: acute cystitis Qualified Code(s): N30.00 - Acute cystitis without hematuria Code(s): N39.0 - Urinary tract infection, site not specified Status: Acute Assessment and Plan: UA was positive for nitrates and leukocyte is trace -started on cefepime (06/25) and was given 1 dose of vancomycin 06/25: Preliminary blood cultures are negative 06/25: Urine cultures are pending (5) Shock: Code(s): R57.9 - Shock, unspecified Status: Acute Assessment and Plan: Patient was hypotensive, received 3 L IV fluid bolus with improvement in blood pressures - lactic acid level was normal the shock could be either sepsis or secondary to sedation as patient is propofol and fentanyl - continue IV fluids -off Levophed (6) Sepsis: Qualifiers: Sepsis type: sepsis due to unspecified organism Sepsis acute organ dysfunction status: with acute organ dysfunction Severe sepsis acute organ dysfunction type: acute respiratory failure Acute respiratory failure type: unspecified Severe sepsis shock status: with septic shock Qualified Code(s): A41.9 - Sepsis, unspecified organism; R65.21 - Severe sepsis with septic shock; J96.00 - Acute respiratory failure, unspecified whether with hypoxia or hypercapnia Code(s): A41.9 - Sepsis, unspecified organism Status: Acute Assessment and Plan: secondary to UTI. Management as above. (7) Elevated serum creatinine: Code(s): R79.89 - Other specified abnormal findings of blood chemistry Status: Acute Assessment and Plan: patient presented with creatinine 1.3. Baseline unknown. Patient is getting IV fluids. CK levels was 169 Creatinine has improved, 0.80 this morning with adequate urine output Plan DVT prophylaxis - Lovenox Stress ulcer prophylaxis -Protonix Nutrition -tube feeds Code Status: Full Code Total Critical Care Time: 35 minutes Due to a high probability of clinically significant, life threatening deterioration, the patient required my highest level of preparedness to intervene emergently and I personally spent this critical care time directly and personally managing the patient. This critical care time included obtaining a history; examining the patient; pulse oximetry; ordering and review of studies; arranging urgent treatment with development of a management plan; evaluation of patient's response to treatment; frequent reassessment; and discussions with other providers. It was exclusive of separately billable procedures and treating other patients and teaching time. Please see Assessment and Plan section and the rest of the note for further information on patient assessment and treatment. This dictation may have been done utilizing a voice recognition system. Attempts have been made to correct errors. However, there may be uncorrected grammatical, spelling, and recognitions errors present. Subjective Date/time seen: 06/26/24 08:57 Interval history: Reason for consult: Drug overdose likely Flexeril and or clonazepam, acute respiratory failure, encephalopathy, intubated on 06/25/2024 06/26/2024: Patient seen and examined the ICU, on CMV mode of ventilation, peep of 5, 30% FiO2. Off sedation, patient is anxious, agitated. Discussed with patient that I will be placing her on spontaneous breathing trial, she was breathing 40 times a minute, likely secondary to anxiety and just not listening to what the nurse and myself with trying to explain to her. I have asked the bedside RN to start her on a Precedex infusion. Urine output has been adequate, patient is afebrile, hemodynamically stable. Review of Systems Review of Systems: ROS unobtainable: Yes unobtainable due to endotracheal tube, unobtainable due to medical condition and unobtainable due to mental status Exam Narrative: General: Patient is awake, agitated, anxious, on mechanical ventilation Lungs/Chest: Coarse breath sounds bilaterally decreased at bases, no wheezing, Cardiac: Tachycardia, S1-S2 is normal Abdomen: Soft, nontender, nondistended, normoactive bowel sound. Extremities: No clubbing, cyanosis or edema. Warm Neurologic: Patient is intubated, off sedation, agitated, anxious, not willing to listen to what the nurse and myself had to explain to her regarding spontaneous breathing trial in evaluating to extubate her. Moves all 4 extremities Psych: Anxious, agitated Objective Data Vital Signs Vital Signs: Vital Signs - 24 hr 06/25/24 09:09 06/25/24 09:01 06/25/24 09:49 Temperature Pulse Rate 89 89 88 Respiratory Rate Blood Pressure 130/78 130/72 Pulse Oximetry 100 Oxygen Delivery Mechanical Ventilation Fraction of Inspired Oxygen 35 06/25/24 10:16 06/25/24 10:00 06/25/24 11:15 Temperature Pulse Rate 88 87 87 Respiratory Rate 18 Blood Pressure 125/73 Pulse Oximetry 100 Oxygen Delivery Mechanical Ventilation Fraction of Inspired Oxygen 30 06/25/24 13:40 06/25/24 10:00 06/25/24 10:00 Temperature 96.7 F L Pulse Rate 81 87 87 Respiratory Rate 18 Blood Pressure 118/76 Pulse Oximetry 100 100 Oxygen Delivery Mechanical Ventilation Fraction of Inspired Oxygen 30 06/25/24 12:00 06/25/24 12:00 06/25/24 14:00 Temperature 97.1 F L Pulse Rate 83 83 79 Respiratory Rate 18 Blood Pressure 105/74 Pulse Oximetry 100 Oxygen Delivery Fraction of Inspired Oxygen 06/25/24 14:00 06/25/24 16:00 06/25/24 16:00 Temperature 97.3 F L 97.5 F L Pulse Rate 79 79 80 Respiratory Rate 18 18 Blood Pressure 103/68 98/62 L Pulse Oximetry 100 100 Oxygen Delivery Fraction of Inspired Oxygen 06/25/24 12:00 06/25/24 16:00 06/25/24 16:37 Temperature Pulse Rate 97 97 80 Respiratory Rate 17 17 Blood Pressure Pulse Oximetry 100 100 100 Oxygen Delivery Mechanical Ventilation Mechanical Ventilation Mechanical Ventilation Fraction of Inspired Oxygen 30 30 30 06/25/24 12:00 06/25/24 14:00 06/25/24 16:00 Temperature Pulse Rate 84 79 80 Respiratory Rate 18 18 18 Blood Pressure Pulse Oximetry Oxygen Delivery Fraction of Inspired Oxygen 06/25/24 16:00 06/25/24 10:00 06/25/24 12:00 Temperature Pulse Rate 80 87 84 Respiratory Rate 18 18 18 Blood Pressure Pulse Oximetry Oxygen Delivery Fraction of Inspired Oxygen 06/25/24 14:00 06/25/24 18:00 06/25/24 18:00 Temperature Pulse Rate 80 79 79 Respiratory Rate 18 18 18 Blood Pressure Pulse Oximetry Oxygen Delivery Fraction of Inspired Oxygen 06/25/24 18:00 06/25/24 18:00 06/25/24 20:10 Temperature 97.8 F 98 F Pulse Rate 82 79 81 Respiratory Rate 18 18 Blood Pressure 94/60 L 99/67 L Pulse Oximetry 100 100 Oxygen Delivery Fraction of Inspired Oxygen 06/25/24 20:35 06/25/24 20:00 06/25/24 20:00 Temperature Pulse Rate 81 81 86 Respiratory Rate 18 18 Blood Pressure Pulse Oximetry 100 100 Oxygen Delivery Mechanical Ventilation Mechanical Ventilation Fraction of Inspired Oxygen 30 30 06/25/24 22:00 06/25/24 22:00 06/25/24 20:00 Temperature Pulse Rate 84 84 86 Respiratory Rate 18 18 18 Blood Pressure Pulse Oximetry Oxygen Delivery Fraction of Inspired Oxygen 06/25/24 20:00 06/25/24 20:00 06/25/24 22:00 Temperature Pulse Rate 86 88 Respiratory Rate Blood Pressure Pulse Oximetry Oxygen Delivery Fraction of Inspired Oxygen 30 06/25/24 22:07 06/25/24 23:39 06/25/24 23:25 Temperature 97.7 F Pulse Rate 85 98 86 Respiratory Rate 20 24 H Blood Pressure 117/66 Pulse Oximetry 100 100 Oxygen Delivery Mechanical Ventilation Fraction of Inspired Oxygen 30 06/25/24 23:35 06/26/24 00:05 06/26/24 00:00 Temperature Pulse Rate 95 96 98 Respiratory Rate 21 H 18 18 Blood Pressure Pulse Oximetry Oxygen Delivery Fraction of Inspired Oxygen 06/26/24 00:00 06/26/24 00:00 06/26/24 00:00 Temperature Pulse Rate 96 97 Respiratory Rate 18 Blood Pressure Pulse Oximetry 100 Oxygen Delivery Mechanical Ventilation Fraction of Inspired Oxygen 30 30 06/26/24 00:04 06/26/24 02:00 06/26/24 04:00 Temperature 97.7 F 98.4 F 98.4 F Pulse Rate 96 99 99 Respiratory Rate 20 18 18 Blood Pressure 119/72 153/84 H 153/84 H Pulse Oximetry 100 100 100 Oxygen Delivery Fraction of Inspired Oxygen 06/26/24 02:00 06/26/24 04:00 06/26/24 04:00 Temperature Pulse Rate 94 91 91 Respiratory Rate 18 Blood Pressure Pulse Oximetry 100 Oxygen Delivery Mechanical Ventilation Fraction of Inspired Oxygen 30 06/26/24 04:00 06/26/24 02:00 06/26/24 02:00 Temperature Pulse Rate 91 91 Respiratory Rate 18 18 Blood Pressure Pulse Oximetry Oxygen Delivery Fraction of Inspired Oxygen 30 06/26/24 04:00 06/26/24 04:00 06/26/24 05:26 Temperature Pulse Rate 91 94 95 Respiratory Rate 18 18 Blood Pressure Pulse Oximetry 100 Oxygen Delivery Mechanical Ventilation Fraction of Inspired Oxygen 30 06/26/24 06:13 06/26/24 06:14 06/26/24 06:14 Temperature 98.5 F Pulse Rate 98 96 96 Respiratory Rate 20 18 18 Blood Pressure 134/75 Pulse Oximetry 100 Oxygen Delivery Fraction of Inspired Oxygen 06/26/24 06:00 06/26/24 06:00 06/26/24 06:33 Temperature Pulse Rate 96 94 94 Respiratory Rate 32 H 24 H Blood Pressure Pulse Oximetry Oxygen Delivery Fraction of Inspired Oxygen 06/26/24 08:06 06/26/24 07:20 06/26/24 07:55 Temperature Pulse Rate 120 H 94 108 H Respiratory Rate 40 H Blood Pressure Pulse Oximetry 100 100 Oxygen Delivery Mechanical Ventilation Mechanical Ventilation Fraction of Inspired Oxygen 30 30 06/26/24 08:35 06/26/24 08:00 Temperature 98.9 F Pulse Rate 90 123 H Respiratory Rate 29 H Blood Pressure 133/65 Pulse Oximetry 100 100 Oxygen Delivery Mechanical Ventilation Fraction of Inspired Oxygen 30 Intake/Output Intake/Output: Intake & Output 06/23/24 06/24/24 06/25/24 06/26/24 23:59 23:59 23:59 23:59 Intake Total 3757.4 1103.7 Output Total 620 500 Balance 3137.4 603.7 Meds/Results Medications: Active Medications Generic Name Dose Route Start Last Admin Trade Name Freq PRN Reason Stop Dose Admin Albuterol/Ipratropium 3 ml 06/25/24 08:15 Ipratropium 0.5 Mg/Albuterol Sulfate 2.5 Mg Ampul.Neb 3 Ml INHALATION Q6HRT PRN Wheezing Clopidogrel Bisulfate 75 mg 06/25/24 09:00 06/26/24 07:50 Clopidogrel Bisulfate 75 Mg Tablet FEED TUBE 75 mg QAM ELIU Administration Dextrose 12.5 gm 06/25/24 08:15 Dextrose 50% 25 Gm/50 Ml Syringe IV PUSH PRN PRN Hypoglycemia Protocol Enoxaparin Sodium 40 mg 06/25/24 09:00 06/26/24 07:50 Enoxaparin 40 Mg/0.4 Ml Syringe SUB-Q 40 mg DAILY ELIU Administration Glucagon 1 mg 06/25/24 08:15 Glucagon For Inj 1 Mg Vial IM PRN PRN Hypoglycemia Protocol Glucose 15 gm 06/25/24 08:15 Glucose Oral Gel 15 Gm Of Glucse In 37.5 Gm Tube PO PRN PRN Hypoglycemia Protocol Fentanyl Citrate 2,500 mcg in 250 mls @ 5 mls/hr 06/25/24 05:00 06/26/24 06:14 Fentanyl 2,500 Mcg/Ns 250 Ml IV CONT 75 mcg/hr .Q50H ELIU 7.5 mls/hr Administration Protocol 50 MCG/HR Propofol 100 mls @ 8.874 mls/hr 06/25/24 05:00 06/26/24 06:33 Diprivan IV CONT 30 mcg/kg/min .[id number] ELIU 8.87 mls/hr Titration Protocol 30 MCG/KG/MIN Cefepime HCl 2 gm in 50 mls @ 100 mls/hr 06/25/24 18:00 06/26/24 06:16 Maxipime 2 Gm/Ns 50 Ml IVPB 100 mls/hr Q12H ELIU Administration Sodium Chloride 1,000 mls @ 125 mls/hr 06/25/24 05:30 06/26/24 07:49 Normal Saline Iv IV CONT 125 mls/hr .Q8H ELIU Administration Dextrose 1,000 mls @ 100 mls/hr 06/25/24 08:15 Dextrose 5% 1,000 Ml IVPB PRN PRN Hypoglycemia Protocol Dexmedetomidine HCl 400 mcg in 100 mls @ 2.57 mls/hr 06/26/24 08:00 06/26/24 08:06 Precedex 400 Mcg/100 Ml IV CONT 0.2 mcg/kg/hr .[id number] ELIU 2.57 mls/hr Administration Protocol 0.2 MCG/KG/HR Insulin Aspart 3 - 6 units 06/25/24 12:00 06/26/24 07:31 Insulin Aspart (*Bkc) 100 Units/Ml SUB-Q Not Given Q6HR ELIU Protocol Miscellaneous Information 1 each 06/26/24 00:01 06/26/24 07:54 Propofol Needs To Be Renewed Or It Will Automatically Discontinue. XX 07/26/24 00:00 Not Given CLARIFY ELIU Pantoprazole Sodium 40 mg 06/25/24 09:00 06/26/24 07:51 Pantoprazole Sodium Iv 40 Mg Vial IV PUSH 40 mg QAM ELIU Administration Polyethylene Glycol 17 gm 06/25/24 09:00 06/26/24 07:51 Polyethylene Glycol 3350 17 Gm Powd.Pack FEED TUBE 17 gm QAM ELIU Administration Radiology Results: ITS Impressions Head CT 06/25/24 06:28 Impression: No significant abnormality seen. Abdomen X-Ray 06/25/24 06:29 Impression: NG tube in satisfactory position. Chest X-Ray 06/26/24 06:04 Impression: No acute pulmonary abnormality evident. COPD pattern. Support tubes, as above. Labs Labs: Laboratory Results - last 24 hr 06/25/24 06/25/24 06/25/24 08:38 09:04 12:17 WBC RBC Hgb Hct MCV MCH MCHC RDW Plt Count MPV Puncture Site ABG pH ABG pCO2 ABG pO2 ABG PO2/FiO2 Ratio ABG HCO3 ABG O2 Saturation ABG O2 Content ABG Base Excess A-a Gradient Oxyhemoglobin Carboxyhemoglobin Methemoglobin Reduced Hemoglobin Total Hemoglobin O2 Delivery Device O2 Liters/Min Minute Volume Vent Rate Vent Mode FiO2 Tidal Volume PEEP Peak Inspir Pressure Pressure Support Sodium 139 Potassium 4.0 Chloride 113 H Carbon Dioxide 22 Anion Gap 4 BUN 8 D Creatinine 0.90 Estim Creat Clear Calc 47 Estimated GFR > 60 Glucose 84 POC Capillary Glucose 124 H Calcium 7.7 L Magnesium Total Bilirubin AST ALT Alkaline Phosphatase Ammonia < 9 L Total Protein Albumin Nasal MRSA (PCR) Not detected 06/25/24 06/25/24 06/25/24 12:30 18:04 23:55 WBC RBC Hgb Hct MCV MCH MCHC RDW Plt Count MPV Puncture Site ABG pH ABG pCO2 ABG pO2 ABG PO2/FiO2 Ratio ABG HCO3 ABG O2 Saturation ABG O2 Content ABG Base Excess A-a Gradient Oxyhemoglobin Carboxyhemoglobin Methemoglobin Reduced Hemoglobin Total Hemoglobin O2 Delivery Device O2 Liters/Min Minute Volume Vent Rate Vent Mode FiO2 Tidal Volume PEEP Peak Inspir Pressure Pressure Support Sodium Potassium Chloride Carbon Dioxide Anion Gap BUN Creatinine Estim Creat Clear Calc Estimated GFR Glucose POC Capillary Glucose 92 97 115 H Calcium Magnesium Total Bilirubin AST ALT Alkaline Phosphatase Ammonia Total Protein Albumin Nasal MRSA (PCR) 06/26/24 06/26/24 05:25 05:53 WBC 9.0 RBC 3.04 L Hgb 9.4 L Hct 29.8 L MCV 98.0 D MCH 30.9 MCHC 31.5 L RDW 13.1 Plt Count 199 MPV 10.1 Puncture Site Right brachial ABG pH 7.450 ABG pCO2 24.2 L ABG pO2 160.9 H ABG PO2/FiO2 Ratio 5.36 ABG HCO3 16.4 L ABG O2 Saturation 99.2 ABG O2 Content 14.8 L ABG Base Excess -6.2 A-a Gradient 24.6 Oxyhemoglobin 98.6 Carboxyhemoglobin 0.3 Methemoglobin 0.3 Reduced Hemoglobin 0.8 Total Hemoglobin 10.4 L O2 Delivery Device Ventilator O2 Liters/Min Not Reportable Minute Volume Not Reportable Vent Rate 18 Vent Mode Cmv FiO2 30 Tidal Volume 400 PEEP 5 Peak Inspir Pressure Not Reportable Pressure Support Not Reportable Sodium 138 Potassium 4.1 Chloride 115 H Carbon Dioxide 21 L Anion Gap 2 L BUN 9 Creatinine 0.80 Estim Creat Clear Calc 53 Estimated GFR > 60 Glucose 109 POC Capillary Glucose Calcium 7.9 L Magnesium 1.6 Total Bilirubin 0.3 AST 19 ALT 9 Alkaline Phosphatase 67 Ammonia Total Protein 5.0 L Albumin 2.6 L Nasal MRSA (PCR) Quality VTE Prophylaxis VTE prophylaxis: pharmacologic ordered (Lovenox 40 mg subQ daily)
[2024-06-26] MEDS: ALBUMIN HUMAN 25% 25 GM/100 ML 100 ML IVPB (10:04)
[2024-06-26 11:42] LABS: Glucose Point of Care 132 mg/dl (65-105)
--- NOTE | 2024-06-26 12:09 | PCNFU ---
Nutrition Follow-Up Complete: Suboptimal Energy Intake as related to mechanical ventilation as evidenced by tube feedings/NPO. Goal: Meet estimated nutritional needs Patient is progressing towards goal. We will continue current goal. Pt current nutrition is Vital AF 1.2 at 40 ml/hr. Last recorded weight is 51.4 kg, up from 49.3 kg on admit. Bowel Motility: No BM reported at this time. Labs Reviewed: Alb 2.6, Hgb 9.4 Meds Noted: NS, Precedex, Miralax, Protonix Skin: WNL Additional Notes: Patient remains on mechanical vent. Breathing trial today. Tube feedings are being tolerated of Vital AF 1.2 at 40 ml/hr with flush 30 ml q 4 hours. Tube feedings providing 1056 kcal/66 gm protein/714 ml water. 74% kcal needs and 100% protein needs. Tomorrow 06/27 recommending increasing tube feedings if patient not extubated to 45 ml/hr to better meet caloric needs. Will monitor weight, labs, skin, tube feeding tolerance, meds every Saturday and Saturday.
[2024-06-26] MEDS: MIDAZOLAM HCL (*CRX) 2 MG/2 ML VIAL 1 MG IV PUSH (13:05)
[2024-06-26] MEDS: dexmedeTOMIDine 400 MCG/100 ML 400 MCG/100 ML BAG 9 MCG IV CONT (16:07)
[2024-06-27] VITALS (11 sets, daily range): BP systolic 113–156; BP diastolic 61–81; PULSE 58–98; RESP 14–29; TEMP 36.3–37.5; O2SAT 97–99
[2024-06-27 02:04] LABS: Glucose Point of Care 110 mg/dl (65-105)
[2024-06-27] MEDS: dexmedeTOMIDine 400 MCG/100 ML 400 MCG/100 ML BAG 9 MCG IV CONT (03:14)
[2024-06-27 04:12] LABS: Basophils Percent Auto 0.4 % (0.2-1.2); Eosinophils Absolute Auto 0.1 K/mm3 (0-0.3); Eosinophils Percent Auto 1.3 % (0-4.4); Hemoglobin 9.7 g/dL (12.0-15.0); Immature Granulocyte Absolute 0.02 K/mm3 (0.00-0.031); Immature Granulocyte Percent A 0.3 % (0-0.5); Lymphocytes Absolute Auto 1.01 K/mm3 (0.9-3.2); Lymphocytes Percent Auto 13.6 % (18.3-44.2); Mean Corpuscular HGB Conc 32.3 g/dl (32-36); Mean Corpuscular Volume 95.8 fl (80-100); Mean Platelet Volume 10.2 fl (7.4-10.4); Monocytes Absolute Auto 0.5 K/mm3 (0.1-0.6); Monocytes Percent Auto 6.9 % (2.6-8.5); Neutrophils Absolute Auto 5.7 K/mm3 (1.3-6.7); Neutrophils Percent Auto 77.5 % (45.5-73.1); Platelet Count Result 210 k/mm3 (150-375); Red Blood Count 3.13 M/mm3 (4.2-5.4); Red Cell Distribution Width 12.9 % (11.5-14.5); White Blood Count 7.4 K/mm3 (4.5-10.0)
[2024-06-27 04:23] LABS: Alanine Aminotransferase 118 U/L (6-35); Albumin Level 2.8 g/dL (3.5-5.1); Alkaline Phosphatase 80 U/L (38-126); Anion Gap 4 mmol/L (4-12); Aspartate Amino Transferase 97 U/L (14-36); Bilirubin,Total 0.6 mg/dL (0.2-1.3); Blood Urea Nitrogen 10 mg/dL (7-17); Calcium 8.2 mg/dL (8.4-10.2); Carbon Dioxide 22 mmol/L (22-30); Chloride 111 mmol/L (98-107); Estimated CRCL calculation 47 ml/min; Estimated Glomerular Filt Rate > 60; Glucose 105 mg/dL (65-110); Magnesium 1.8 mg/dL (1.6-2.3); Phosphorus 2.7 mg/dL (2.5-4.5); Potassium 4.2 mmol/L (3.4-5.0); Sodium 137 mmol/L (137-145); Triglycerides 69 mg/dL (<150)
[2024-06-27] MEDS: HYDROcodone/acetaminophen (*CRX) 5-325 MG TABLET 1 TAB PO (05:29)
[2024-06-27] MEDS: CEFEPIME 2 GM/NS 50 ML 2 GM/50 ML BAG IVPB (05:30)
[2024-06-27] MEDS: PANTOPRAZOLE SODIUM IV 40 MG VIAL IV PUSH (08:47)
[2024-06-27] MEDS: ENOXAPARIN 40 MG/0.4 ML SYRINGE SUB-Q (08:47)
[2024-06-27] MEDS: CLOPIDOGREL BISULFATE 75 MG TABLET FEED TUBE (08:47)
[2024-06-27] MEDS: polyethylene glycoL 3350 17 GM POWD.PACK FEED TUBE (08:47)
--- NOTE | 2024-06-27 08:47 | P.PNINT_ITS ---
Progress Note: A&P Assessment and Plan (1) Acute respiratory failure: Qualifiers: Respiratory failure complication: hypoxia and hypercapnia Qualified Code(s): J96.01 - Acute respiratory failure with hypoxia; J96.02 - Acute respiratory failure with hypercapnia Code(s): J96.00 - Acute respiratory failure, unspecified whether with hypoxia or hypercapnia Status: Acute Assessment and Plan: 06/25: Acute Respiratory failure secondary to Drug overdose, encephalopathy. Likely has underlying COPD, patient was intubated in the ER 06/26: Extubated -continue Bronchodilators -off Precedex - (2) Encephalopathy: Qualifiers: Encephalopathy type: toxic metabolic Qualified Code(s): G92.8 - Other toxic encephalopathy Code(s): G93.40 - Encephalopathy, unspecified Status: Acute Assessment and Plan: Likely secondary to drug overdose, patient also has COPD which could have affected in her encephalopathy -06/25: head CT negative - TSH normal -ammonia levels are normal -patient more calm this morning and pleasant, able to answer questions appropriately (3) Intentional overdose: Qualifiers: Encounter type: initial encounter Qualified Code(s): T50.902A - Poisoning by unspecified drugs, medicaments and biological substances, intentional self-harm, initial encounter Code(s): T50.902A - Poisoning by unspecified drugs, medicaments and biological substances, intentional self-harm, initial encounter Status: Acute Assessment and Plan: -likely overdose with Flexeril and clonazepam. Unknown quantity, -continue suicide precautions -bedside sitter -patient is medically stable, discussed with hospitalist Dr. Burgess, will transfer to medical status - will have care coordination and crisis management evaluate the patient (4) UTI (urinary tract infection): Qualifiers: Hematuria presence: without hematuria Urinary tract infection type: acute cystitis Qualified Code(s): N30.00 - Acute cystitis without hematuria Code(s): N39.0 - Urinary tract infection, site not specified Status: Acute Assessment and Plan: UA was positive for nitrates and leukocyte is trace -started on cefepime (06/25) and was given 1 dose of vancomycin 06/25: Preliminary blood cultures are negative 06/25: Urine cultures growing Proteus mirabilis, pansensitive (5) Shock: Code(s): R57.9 - Shock, unspecified Status: Acute Assessment and Plan: Patient was hypotensive, received 3 L IV fluid bolus with improvement in blood pressures - lactic acid level was normal the shock could be either sepsis or secondary to sedation as patient is propofol and fentanyl - continue IV fluids -off Levophed (6) Sepsis: Qualifiers: Sepsis type: sepsis due to unspecified organism Sepsis acute organ dysfunction status: with acute organ dysfunction Severe sepsis acute organ dysfunction type: acute respiratory failure Acute respiratory failure type: unspecified Severe sepsis shock status: with septic shock Qualified Code(s): A41.9 - Sepsis, unspecified organism; R65.21 - Severe sepsis with septic shock; J96.00 - Acute respiratory failure, unspecified whether with hypoxia or hypercapnia Code(s): A41.9 - Sepsis, unspecified organism Status: Acute Assessment and Plan: secondary to UTI. Management as above. (7) Elevated serum creatinine: Code(s): R79.89 - Other specified abnormal findings of blood chemistry Status: Acute Assessment and Plan: patient presented with creatinine 1.3. Baseline unknown. Patient is getting IV fluids. CK levels was 169 Creatinine has normalized, urine output has been adequate Plan DVT prophylaxis - Lovenox Stress ulcer prophylaxis -Protonix Nutrition -regular diet with safety tray Code Status: Full Code Total Critical Care Time: 32 minutes Due to a high probability of clinically significant, life threatening deterioration, the patient required my highest level of preparedness to intervene emergently and I personally spent this critical care time directly and personally managing the patient. This critical care time included obtaining a hi story; examining the patient; pulse oximetry; ordering and review of studies; arranging urgent treatment with development of a management plan; evaluation of patient's response to treatment; frequent reassessment; and discussions with other providers. It was exclusive of separately billable procedures and treating other patients and teaching time. Please see Assessment and Plan section and the rest of the note for further information on patient assessment and treatment. This dictation may have been done utilizing a voice recognition system. Attempts have been made to correct errors. However, there may be uncorrected grammatical, spelling, and recognitions errors present. Subjective Date/time seen: 06/27/24 08:47 Interval history: Reason for consult: Drug overdose likely Flexeril and or clonazepam, acute respiratory failure, encephalopathy, intubated on 06/25/2024 06/26/2024: Extubated 06/27/2024: Patient seen and examined the ICU, is very calm, pleasant, denies any chest pain, shortness of breath, abdominal pain, nausea, vomiting. She does complain of some soreness in coughing up some sputum. Urine output has been adequate, patient has been afebrile. Tolerating a diet Review of Systems Review of Systems: All systems reviewed & are unremarkable except as noted in HPI and below Exam Narrative: General: Pleasant female in no acute distress Lungs/Chest: Clear breath sounds bilaterally, adequate air entry, no wheezing, Cardiac: S1-S2 is normal, regular rate and rhythm Abdomen: Soft, nontender, nondistended, normoactive bowel sound. Extremities: No clubbing, cyanosis or edema. Warm Neurologic: Patient is awake, alert, oriented, able to answer questions appropriately follows simple commands Psych: Pleasant and appropriate Objective Data Vital Signs Vital Signs: Vital Signs - 24 hr 06/26/24 09:59 06/26/24 10:00 06/26/24 10:15 Temperature 99.5 F Pulse Rate 63 63 83 Respiratory Rate 18 Blood Pressure 101/60 Pulse Oximetry 100 100 100 Oxygen Delivery Mechanical Ventilation Mechanical Ventilation Fraction of Inspired Oxygen 30 30 06/26/24 10:00 06/26/24 11:40 06/26/24 12:00 Temperature 100.1 F H Pulse Rate 63 67 66 Respiratory Rate 18 Blood Pressure 93/55 L Pulse Oximetry 100 100 Oxygen Delivery Mechanical Ventilation Fraction of Inspired Oxygen 30 06/26/24 12:00 06/26/24 12:05 06/26/24 12:05 Temperature Pulse Rate 67 67 Respiratory Rate 18 Blood Pressure Pulse Oximetry 100 Oxygen Delivery Mechanical Ventilation Fraction of Inspired Oxygen 30 30 06/26/24 13:25 06/26/24 14:10 06/26/24 14:00 Temperature 100.2 F H Pulse Rate 86 89 72 Respiratory Rate 18 Blood Pressure 113/61 Pulse Oximetry 100 100 100 Oxygen Delivery Mechanical Ventilation Fraction of Inspired Oxygen 30 06/26/24 14:00 06/26/24 14:00 06/26/24 09:00 Temperature 100.2 F H Pulse Rate 72 72 78 Respiratory Rate 18 18 Blood Pressure 113/61 Pulse Oximetry 100 Oxygen Delivery Fraction of Inspired Oxygen 06/26/24 10:00 06/26/24 11:00 06/26/24 13:00 Temperature Pulse Rate 63 66 98 Respiratory Rate 18 18 26 H Blood Pressure Pulse Oximetry Oxygen Delivery Fraction of Inspired Oxygen 06/26/24 14:00 06/26/24 16:07 06/26/24 16:07 Temperature Pulse Rate 72 93 93 Respiratory Rate 18 22 H 22 H Blood Pressure Pulse Oximetry Oxygen Delivery Fraction of Inspired Oxygen 06/26/24 16:00 06/26/24 16:00 06/26/24 16:00 Temperature 99.4 F Pulse Rate 71 71 71 Respiratory Rate 24 H 24 H Blood Pressure 101/62 Pulse Oximetry 98 98 Oxygen Delivery Room Air Fraction of Inspired Oxygen 06/26/24 15:00 06/26/24 17:47 06/26/24 16:35 Temperature Pulse Rate 80 72 74 Respiratory Rate 21 H 13 20 Blood Pressure Pulse Oximetry Oxygen Delivery Fraction of Inspired Oxygen 06/26/24 18:00 06/26/24 18:00 06/26/24 18:26 Temperature 99.2 F Pulse Rate 61 61 93 Respiratory Rate 18 16 Blood Pressure 94/59 L Pulse Oximetry 99 Oxygen Delivery Fraction of Inspired Oxygen 06/26/24 20:00 06/26/24 22:00 06/26/24 20:00 Temperature Pulse Rate 62 64 64 Respiratory Rate 16 Blood Pressure Pulse Oximetry 99 Oxygen Delivery Room Air Fraction of Inspired Oxygen 30 06/26/24 20:00 06/26/24 22:00 06/27/24 00:00 Temperature 99.6 F 99.5 F Pulse Rate 62 64 69 Respiratory Rate 19 18 22 H Blood Pressure 108/56 L 111/59 L 114/62 Pulse Oximetry 97 98 98 Oxygen Delivery Fraction of Inspired Oxygen 06/27/24 00:00 06/27/24 00:00 06/27/24 02:00 Temperature Pulse Rate 69 64 63 Respiratory Rate 22 H Blood Pressure Pulse Oximetry 98 Oxygen Delivery Room Air Fraction of Inspired Oxygen 30 06/27/24 02:00 06/27/24 02:51 06/26/24 20:00 Temperature 98.6 F Pulse Rate 62 64 62 Respiratory Rate 15 18 19 Blood Pressure 113/61 Pulse Oximetry 98 Oxygen Delivery Fraction of Inspired Oxygen 06/26/24 22:00 06/27/24 00:00 06/27/24 03:14 Temperature Pulse Rate 64 64 65 Respiratory Rate 19 18 23 H Blood Pressure Pulse Oximetry Oxygen Delivery Fraction of Inspired Oxygen 06/27/24 03:14 06/27/24 04:00 06/27/24 04:00 Temperature Pulse Rate 62 62 64 Respiratory Rate 19 19 Blood Pressure Pulse Oximetry 98 Oxygen Delivery Room Air Fraction of Inspired Oxygen 30 06/27/24 04:00 06/27/24 06:00 06/27/24 06:00 Temperature 98.4 F 97.7 F Pulse Rate 64 58 L 58 L Respiratory Rate 22 H 15 Blood Pressure 114/63 114/64 Pulse Oximetry 98 98 Oxygen Delivery Fraction of Inspired Oxygen 06/27/24 05:00 06/27/24 06:10 06/27/24 06:45 Temperature Pulse Rate 62 58 L 62 Respiratory Rate 20 20 20 Blood Pressure Pulse Oximetry Oxygen Delivery Fraction of Inspired Oxygen Intake/Output Intake/Output: Intake & Output 06/24/24 06/25/24 06/26/24 06/27/24 23:59 23:59 23:59 23:59 Intake Total 3757.4 2370.0 128.6 Output Total 620 1275 750 Balance 3137.4 1095.0 -621.4 Meds/Results Medications: Active Medications Generic Name Dose Route Start Last Admin Trade Name Freq PRN Reason Stop Dose Admin Albuterol/Ipratropium 3 ml 06/25/24 08:15 Ipratropium 0.5 Mg/Albuterol Sulfate 2.5 Mg Ampul.Neb 3 Ml INHALATION Q6HRT PRN Wheezing Clopidogrel Bisulfate 75 mg 06/25/24 09:00 06/26/24 07:50 Clopidogrel Bisulfate 75 Mg Tablet FEED TUBE 75 mg QAM ELIU Administration Dextrose 12.5 gm 06/25/24 08:15 Dextrose 50% 25 Gm/50 Ml Syringe IV PUSH PRN PRN Hypoglycemia Protocol Enoxaparin Sodium 40 mg 06/25/24 09:00 06/26/24 07:50 Enoxaparin 40 Mg/0.4 Ml Syringe SUB-Q 40 mg DAILY ELIU Administration Glucagon 1 mg 06/25/24 08:15 Glucagon For Inj 1 Mg Vial IM PRN PRN Hypoglycemia Protocol Glucose 15 gm 06/25/24 08:15 Glucose Oral Gel 15 Gm Of Glucse In 37.5 Gm Tube PO PRN PRN Hypoglycemia Protocol Cefepime HCl 2 gm in 50 mls @ 100 mls/hr 06/25/24 18:00 06/27/24 06:00 Maxipime 2 Gm/Ns 50 Ml IVPB Infused Q12H ELIU Infusion Dextrose 1,000 mls @ 100 mls/hr 06/25/24 08:15 Dextrose 5% 1,000 Ml IVPB PRN PRN Hypoglycemia Protocol Dexmedetomidine HCl 400 mcg in 100 mls @ 0 mls/hr 06/26/24 08:00 06/27/24 06:45 Precedex 400 Mcg/100 Ml IV CONT 0 mcg/kg/hr .Q0M ELIU 0 mls/hr Titration Protocol Insulin Aspart 3 - 6 units 06/25/24 12:00 06/27/24 06:08 Insulin Aspart (*Bkc) 100 Units/Ml SUB-Q Not Given Q6HR ELIU Protocol Pantoprazole Sodium 40 mg 06/25/24 09:00 06/26/24 07:51 Pantoprazole Sodium Iv 40 Mg Vial IV PUSH 40 mg QAM ELIU Administration Polyethylene Glycol 17 gm 06/25/24 09:00 06/26/24 07:51 Polyethylene Glycol 3350 17 Gm Powd.Pack FEED TUBE 17 gm QAM ELIU Administration Radiology Results: ITS Impressions Head CT 06/25/24 06:28 Impression: No significant abnormality seen. Abdomen X-Ray 06/25/24 06:29 Impression: NG tube in satisfactory position. Chest X-Ray 06/27/24 06:06 IMPRESSION: 1. Mild atelectasis at the lung bases. Labs Labs: Laboratory Results - last 24 hr 06/26/24 06/27/24 06/27/24 11:40 01:33 04:05 WBC 7.4 RBC 3.13 L Hgb 9.7 L Hct 30.0 L MCV 95.8 MCH 31.0 MCHC 32.3 RDW 12.9 Plt Count 210 MPV 10.2 Immature Gran % (Auto) 0.3 Neut % (Auto) 77.5 H Lymph % (Auto) 13.6 L [place] % (Auto) 6.9 Eos % (Auto) 1.3 Baso % (Auto) 0.4 Lymph # (Auto) 1.01 [place] # (Auto) 0.5 Eos # (Auto) 0.1 Baso # (Auto) 0.0 Abs Immat Gran (auto) 0.02 Absolute Neuts (auto) 5.7 Absolute Nucleated RBC 0.000 Nucleated RBC % 0.0 Sodium 137 Potassium 4.2 Chloride 111 H Carbon Dioxide 22 Anion Gap 4 BUN 10 Creatinine 0.90 Estim Creat Clear Calc 47 Estimated GFR > 60 Glucose 105 POC Capillary Glucose 132 H 110 H Calcium 8.2 L Phosphorus Cancelled Magnesium Total Bilirubin AST ALT Alkaline Phosphatase Total Protein Albumin Triglycerides 06/27/24 06/27/24 04:05 04:05 WBC RBC Hgb Hct MCV MCH MCHC RDW Plt Count MPV Immature Gran % (Auto) Neut % (Auto) Lymph % (Auto) [place] % (Auto) Eos % (Auto) Baso % (Auto) Lymph # (Auto) [place] # (Auto) Eos # (Auto) Baso # (Auto) Abs Immat Gran (auto) Absolute Neuts (auto) Absolute Nucleated RBC Nucleated RBC % Sodium Potassium Chloride Carbon Dioxide Anion Gap BUN Creatinine Estim Creat Clear Calc Estimated GFR Glucose POC Capillary Glucose Calcium Phosphorus 2.7 Magnesium 1.8 Total Bilirubin 0.6 AST 97 H ALT 118 H Alkaline Phosphatase 80 Total Protein 5.0 L Albumin 2.8 L Triglycerides Cancelled 69 Quality VTE Prophylaxis VTE prophylaxis: pharmacologic ordered (Lovenox 40 mg subQ daily)
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
== END 2024-06-27 15:40 | disposition home or self-care (01) | DRG 917 ==
LOC: ANHED 02:06 → ANHICU 05:54
PROVIDERS: Internal Medicine; Admitting Provider Internal Medicine; Emergency Provider Emergency Medicine; PCP Family Medicine; Visit Provider Internal Medicine
DX: T42.4X4A Poisoning by benzodiazepines, undetermined, initial encounter (principal); A41.9 Sepsis, unspecified organism; G92.8 Other toxic encephalopathy; J96.00 Acute respiratory failure, unspecified whether with hypoxia or hypercapnia; R65.21 Severe sepsis with septic shock; N17.9 Acute kidney failure, unspecified; N39.0 Urinary tract infection, site not specified; E46 Unspecified protein-calorie malnutrition; T48.1X4A Poisoning by skeletal muscle relaxants [neuromuscular blocking agents], undetermined, initial encounter; M81.0 Age-related osteoporosis without current pathological fracture; B96.4 Proteus (mirabilis) (morganii) as the cause of diseases classified elsewhere; B39.9 Histoplasmosis, unspecified; G89.29 Other chronic pain; F32.A Depression, unspecified; F41.9 Anxiety disorder, unspecified; Z20.822 Contact with and (suspected) exposure to COVID-19; Z87.442 Personal history of urinary calculi; Z79.02 Long term (current) use of antithrombotics/antiplatelets; Z86.73 Personal history of transient ischemic attack (TIA), and cerebral infarction without residual deficits; Z87.891 Personal history of nicotine dependence
CPT/HCPCS: 31500; 36415; 36556; 36600; 70450; 71045; 80048; 80053; 80143; 80179; 80307; 81001; 82077; 82140; 82375; 82550; 82805; 82948; 83050; 83605; 83735; 84100; 84443; 84478; 85018; 85025; 85027; 87040; 87086; 87186; 87637; 87641; 93005; 94002; 94003; 96365; 96367; 96368; 96372; 96375; 99291; A9270; C1751; G0378; J0330; J0692; J1650; J2250; J2470; J2704; J3010; J3370; J7030; P9047

== ENCOUNTER 2024-08-01 11:11 | Outpatient (CLI) | payer MEDICARE, MEDICAID, SELFPAY ==
--- NOTE | ~2024-08-01 | MR_ITS ---
EXAMINATION: MR pelvis wo/w con DATE: 08/01/2024 12:43 INDICATION: Pelvic pain in female. Lump in right buttock. TECHNIQUE: Magnetic resonance imaging (MRI) of the pelvis was performed without and with 8 mL MultiHa nce intravenous contrast. COMPARISON: CT abdomen pelvis 09/05/2023 FINDINGS: There are no dilated loops of bowel. The uterus is absent. There are no pathologically enlarged lymph nodes. There is no free intraperitoneal fluid. There is a 14 x 7 mm nonenhancing subcutaneous mass i n right buttock with rim calcification by CT, consistent with old fat necrosis. IMPRESSION: 1. Subcutaneous old fat necrosis in the right buttock. Reviewed, dictated and finalized at location A. CS MANAGER
--- OUTSIDE RECORDS SUMMARY | 2024-08-08 16:01 | XMS_ITS | Encounter Summary ---
Author Organization [facility] Address [address] [place] [address] Care Team Providers Care Account General Manager Name Role Phone Fernando Chavez MD Primary Care Provider [phone] Reason for Visit * Reason Comments Establish Care Encounter Details Date Type Department Care Team (Late st Contact Info) Description 11/14/2023 4:00 PM CDT Office Visit [facility] - Vascular Surgery [address] [place] [id number] Mark Salmeron MD [address] [facility] 2L [place] [address] Subclavian artery stenosis, right (HCC) (Primary Dx) Social History Tobacco Use Types Packs/Day Years Used Date Smoking Tobacco: Former Cigarettes Smokeless Tobacco: Never Tobacco Cessation:Counseling Given: Not Answered Alcohol Use Standard Drinks/Week Comments Yes 0 (1 standard drink = 0.6 oz pur e alcohol) occasionally AUDIT-C Answer Date Recorded Q1: How often do you have a drink containing alc ohol? Monthly or less 09/24/2023 Q2: How many drinks containi ng alcohol do you have on a typical day when you are drinking? 1 or 2 09/24/2023 Q3: How often do you have si x or more drinks on one occasion? Never 09/24/2023 PHQ-2 Answer Date Recorded Patient Health Questionnaire-2 Score 0 09/26/2023 Sex and Gender Information Value Date Recorded Sex Assigned at Not on file Gender Identity Not on file Sexual Orientation Not on file documented as of this encounter Last Filed Vital Signs Vital Sign Reading Time Taken Comments Blood Pressure 134/81 11/14/2023 3:18 PM CDT Pulse 112 11/14/2023 3:18 PM CDT Temperature 36.1 ??C (97 ??F) 11/14/2023 3:18 PM CDT Respiratory Rate - - Oxygen Saturation 98% 11/14/2023 3:18 PM CDT Inhaled Oxygen Concentration - - Weight 51.6 kg (113 lb 12.8 oz) 11/14/2023 3:18 PM CDT Height 162.6 cm (5' 4 ) 11/14/2023 3:18 PM CDT Body Mass Index 19.53 11/14/2023 3:18 PM CDT documented in this encounter Functional Status Functional Status Response Date of Assess ment Is person deaf or have serious hearing difficult y? No 09/27/2023 Is person blind or have serious difficulty seein g? No 09/27/2023 Does person have serious dif ficulty walking/climbing stairs? Yes 09/27/2023 Does person have difficulty dressing/bathing? No 09/06/2023 Does person have difficulty doing errands alone? Yes 09/27/2023 Cognitive Status Response Date of Assessm ent Does person have difficulty concentrating/remembering/making decisions? No 09/27/2023 documented as of this encounter Progress Notes * Mark Salmeron MD - 11/14/2023 3:37 PM CDT Vascular Surgery History and Physical Encounter Date: 11/14/2023 Patient's Primary Care Physician: Fernando Chavez MD Name: Madison Weinberg Age: [age] year old Sex: female Date: 11/14/2023 Chief Complaint: Right subclavian stenosis History of Present Illness: Madison Weinberg is a 57 year old female with PMHx s/f HTN, DVT, TIA who presents here today for evaluation of right subclavian stenosis. The patient was recently evaluated in the hospital for concerns of transient weakness and numbness to her left side that presented with exertion. She was being worked up by Neurology where they ordered an angio showing right subclavian stenosis. Vascular Surgery was then consulted for opinion of a bypass given the extent and location of the stenosis. Since her discharge, the patient has continued left sided weakness and paresthesias to the face, LUE and LLE. They continue to worsen with exertion and improve when she lies downin her recliner. If she goes from sitting to standing too fast she will become extremely lightheaded. Some of the paresthesias to the medial aspect of the left hand as well as diffusely over the entire LLE have remained present since her admission. Currently taking ASA and Plavix. Past Medical History: Past Medical History: Diagnosis Date ??? Anemia ??? Anxiety ??? Dementia (HCC) early onset per patient ??? Difficult intravenous access use sonasite ??? DVT (deep venous thrombosis) (HCC) 2019 RLL ??? Endometriosis ??? GERD (gastroesophageal reflux disease) ??? PONV (postoperative nausea and vomiting) ??? TIA (transient ischemic attack) 08/2023 L sided residual ??? Trigeminal neuralgia Past Surgical History: Past Surgical History: Procedure Laterality Date ??? Appendectomy 2006 ??? Breast Biopsy 2000 ??? ENDOMETRIOSIS FULGURATION x21 ??? Hysterectomy 1995 ??? Laparotomy x5 ??? Lithotripsy Bilateral 5 on R, 4 on L ??? Lung Lobectomy Left ??? Small Bowel Resection Home Medications: Current Outpatient Medications Medication Sig ??? aspirin (Aspirin) 81 MG chew tablet Take 1 (one) tablet by mouth once daily ??? clonazePAM (KlonoPIN) 0.5 MG tablet Take 1 (one) tablet by mouth 3 times daily ??? clopidogrel (plaVIX) 75 MG tablet Take 1 (one) tablet by mouth once daily ??? cyclobenzaprine (Flexeril) 10 MG tablet Take 1 (one) tablet by mouth 3 times daily as needed for Muscle Spasms ??? ondansetron (Zofran) 8 MG tablet Take 1 (one) tablet by mouth every 6 hours as needed for Nausea/Vomiting ??? senna (Senokot) 8.6 MG tablet Take by mouth once daily ??? traZODone (Desyrel) 100 MG tablet Take 1.5 (one and one-half) tablets by mouth nightly as needed for Insomnia ??? vitamin E (Tocopheryl) 100 UNIT capsule Take by mouth once daily No current facility-administered medications for this visit. Allergies: Allergies Allergen Reactions ??? Diphenhydramine Unknown ??? Duloxetine Other Altered mentation ??? Gabapentin Other confusion ??? Sertraline Other confusion ??? Bupropion Unknown ??? Codeine Itching ??? Skin Adhesives Skin Reactions ??? Paroxetine Other Social History: Social History Socioeconomic History ??? Marital status: Tobacco Use ??? Smoking status: Former Types: Cigarettes ??? Smokeless tobacco: Never Vaping Use ??? Vaping Use: Never used Substance and Sexual Activity ??? Alcohol use: Yes Comment: occasionally ??? Drug use: Yes Types: Other, Marijuana Comment: [facility] for pain management Family History: Family History Problem Relation Name Age of Onset ??? Diabetes; unknown type Mother ??? CAD (Coronary Artery Disease) Mother ??? Hypertension Mother ??? Hypertension Father ??? CAD (Coronary Artery Disease) Father Review of Systems Negative outside what is listed above Exam Vitals: 11/14/23 1518 BP: 134/81 Pulse: (!) 112 Temp: 97 ??F (36.1 ??C) SpO2: 98% Weight: 51.6 kg (113 lb 12.8 oz) Height: 1.626 m (5' 4 ) BP 134/81 Pulse (!) 112 Temp 97 ??F (36.1 ??C) (Temporal) Ht 1.626 m (5' 4 ) Wt 51.6 kg (113 lb 12.8 oz) SpO2 98% Physical Exam: Gen: NAD and A&O x 3 ENT: Normocephalic and EOMI, no obvious CN deficits Resp: unlabored breathing on RA CV: RRR Abd: Soft, Non-distended and Non-peritoneal, no rebound/guarding MSK: 4/5 with left arm flexion, wrist extension and flexion, diminished sensation to the medial aspect of the left hand extending proximally to the distal forearm. Diminished sensation diffusely to the LLE. pulse exam: Present R radial 1+, L radial 2+. Delayed pulse to the L radial when compared tothe R radial Psych: Appropriate mood and affect Data Recent Labs Component Name 09/27/23 0150 09/26/23 0648 09/25/23 0545 WBC 7.0 5.5 5.8 HGB 12.0 12.1 11.8* HCT 35.1 35.1 35.4 Recent Labs Component Name 09/24/23 0430 09/07/23 0638 09/06/23 0146 NA 141 140 144 CL 107 107 112* CO2 BUN 16 9 6* CREATININE 0.91 0.88 0.87 CALCIUM 9.4 9.1 8.5 MAGNESIUM - 1.6 1.9 Recent Labs Component Name 09/24/23 0430 PROT 7.7 ALB 4.2 TBILI 0.3 AST 34 ALT 18 ALKPHOS 93 @LABRCNT(Protime:3,INR:3,PTT:3) Imaging MRI BRAIN WO CONTRAST Result Date: 09/25/2023 PROCEDURE: MRI BRAIN WO CONTRAST DATE/TIME OF EXAM: 09/24/2023 3:47 PM CLINICAL INFORMATION: None relevant/not provided if blank. Indication: R47.81: Slurred speech TECHNIQUE: MRI of the brain was performed without contrast according to standard protocol. COMPARISON: CT brain stroke dated 09/24/2023 at 4:06 AM, MRI brain 09/07/2023 FINDINGS: No evidence of acute or chronic hemorrhage is identified. No evidence of acute cerebral infarction is seen. The ventricles are of normal size, shape, and morphology. No mass effect or midline shift is seen. Scattered cerebral hemispheric minimal white matterFLAIR hyperintensities are a nonspecific finding. The corpus callosum is normal. A partially empty sella is noted. Prominent CSF spaces noted in the bilateral Meckel's caves. There is also slight tortuous course of the bilateral optic nerves. The posterior fossa, brainstem, and craniocervical junction appear normal. Slightly lower lying cerebellar tonsils, measuring 1 to 2 mm below the level of foramen of magnum. The visualized portions of the orbits, paranasal sinuses, and mastoids appear normal. Normal flow voids are demonstrated in the carotid arteries and basilar artery. The calvarium andvisualized cervical spine appear normal. Prominent arachnoid granulations posterior to the right cerebellar hemisphere close to the trochlea. (Image 4, series 9). IMPRESSION: 1. No evidence of acute cerebral infarction. No acute intracranial abnormality. 2. Partially empty sella, slightly tortuous course of optic nerves, prominent CSF spaces in the Meckel's caves noted. These findings are nonspecific however could be seen in the setting of idiopathic intracranial hypertension, clinical correlation is recommended. These findings were discussed with patient's care provider, Dr. Yeboah, by on 09/25/2023 8:18 AM with read back verification. I, Briana Joseph MD have personally reviewed and interpreted this examination/study. > Interpreting Provider: Briana Joseph MD on 09/25/2023 8:[address] ANGIO BRAIN NECK STROKE Result Date: 09/24/2023 PROCEDURE: CT ANGIO BRAIN NECK STROKE, DATE/TIME OF EXAM: 09/24/2023 5:19 AM, LOCATION [facility] INDICATION: Code Stroke ADDITIONAL CLINICAL INFORMATION: Ordering Provider Reason For Exam: Code stroke. Technologist Note: None. Additional: None. EXAMINATION: 1. Computed tomographic (CT) angiography of the head without and with contrast 2. CT angiography of the neck with contrast CONTRAST: IOPAMIDOL 76 % IV SOLN:75 mL TECHNIQUE: CT of the head was performed without contrast according to standard protocol. Then CT angiography of the head and neck was obtained after the uneventful administration of 75 mL Isovue-370 intravenous contrast. Three dimensional postprocessing was performed by the technologist and sent to the workstation for review. Stenosis measurements are based on NASCET criteria. CT dose reduction technique was used, including Automated Exposure Control. COMPARISON: CT angiography of the head and neck from 09/06/2023. FINDINGS: Non-angiographic findings: Please refer to separately dictated noncontrast head CT for the non- angiographic findings. Redemonstration of scarring in the left lung apex and an indeterminate linear enhancing vascular structure, in the left upper lobe. Angiographic findings: There is atherosclerotic disease of the aortic arch. The configuration of the brachiocephalic vessels is typical. There is atherosclerotic calcification of the innominate and subclavian arteries. Redemonstration of severe stenosis of the origin of the right subclavian artery. There is atherosclerotic disease of the right carotid bifurcation and origin of the right internal carotid artery with less than 50 percent focal stenosis by NASCET criteria. The right common and internal carotid arteries otherwise appear normal. There is atherosclerotic disease of the left carotid bifurcation and origin of the left internal carotid artery with less than 50 percent focal stenosis by NASCET criteria. The left common and internal carotid arteries otherwise appear normal. The left ventricular is dominant. The right vertebral artery is smaller in caliber. There is atherosclerotic disease involving the cervical vertebral arteries without significant focal stenosis. There is atherosclerotic disease involving the distal internal carotid arteries without significant focal stenosis. The anterior and middle cerebral arteries appear normal. The distal vertebral arteries appear normal. The basilar artery and posterior cerebral arteries appear normal with origin of the right posterior cerebral artery. No aneurysms, vascular occlusions, or hemodynamically significant intracranial stenoses are identified. IMPRESSION: 1.No significant change since prior. 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 3.Severe stenosis of the origin of the right subclavian artery is again noted. 4.Otherwise, no large arterial occlusions or significant stenoses identified in the head or neck. Viz.AI was used for large vessel occlusion detection. > Dictated by Dutch Morales DO (vice president media relations). I, Lay Chaudhry MD have personally reviewed and interpreted this examination/study. > Interpreting Provider: Lay Chaudhry MD on 09/24/2023 10:[address] BRAIN - Stroke Result Date: 09/24/2023 PROCEDURE: CT BRAIN STROKE, DATE/TIME OF EXAM: 09/24/2023 4:14 AM, LOCATION [facility] INDICATION: Code Stroke EXAMINATION: Computed tomography (CT) of the head without contrast ADDITIONAL CLINICAL INFORMATION: Ordering Provider Reason For Exam: Code stroke Technologist Note: None. Additional: 57 year old female with medical hx as listed below presented for blurry vision, L sidednumbness and weakness. LKW is 03.00. In [facility] ED initial NIHSS is 1 for L sided numbness. CTH and CTAH+N was unrevealing.Patient presented with similar symptoms on 09/06/2023. That time she had transitleft hemiparesis after strenuous physical activity.MRIwasnegative for acute pathologies. CTA showeda severe right subclavian calcified stenosis. Clinical picturewas concerning forsubclavian steal syndrome.Cerebral angiogram planned. Started onaspirin + plavix. Today neurologic exam significant forL sided mild weakness and decreased sensation. Findings concerning TIA vssubclavian steal syndromevs infarct. TECHNIQUE: CT of the head was performed without contrast according to standard protocol. CT dose reduction technique was used, including Automated Exposure Control. COMPARISON: MRI of the brain from 09/07/2023. CT of the head and CT angiogram of the neck from 09/06/2023. FINDINGS: No acute intra- or extra-axial fluid collections are identified. There is mild cerebral volume loss with associated ex vacuo ventricular dilatation. The basilar cisterns are patent. No mass effect or midline shift is seen. The sharma-white matter differentiation is obscured by motion artifact. There is suspected faint vascular calcification of the carotid siphons. No acute calvarial fracture is identified. There is partial empty sella. Borderline low-lying cerebellar tonsils just above the level of the foramen magnum. The optic nerve sheaths is are tortuous. The orbits appear normal. There is mild paranasal sinus disease. The mastoid air cells are grossly clear. No soft tissue abnormality is identified. IMPRESSION: 1.No acute intracranial hemorrhage. 2.Please note that CT is insensitive to nonhemorrhagic strokes and MRI should be considered if there is clinical concern for acute infarction. 3.Fundusexamination is recommended to exclude papilledema and/or the possibility of idiopathic intracranial hypertension (IIH). > Dictated by Theo Hebert DO (financial institution vice president) I, Lay Chaudhry MD have personally reviewed and interpreted this examination/study. > Interpreting Provider: Lay Chaudhry MD on 09/24/2023 10:33 AM Assessment: Madison Weinberg is a 57 year old female with s/f HTN, DVT, TIA who presents here today for evaluation of right subclavian stenosis. Plan: - Patient scans reviewed showing stenosis present to the right subclavian located near the bifurcation - Had an extensive conversation with the patient that her presentation is not typical. There are two operative options that may be considered if her symptoms are related to the stenosis. Both optionswere discussed with a sternotomy approach vs the less invasive retrograde approach - Further discussion will be had with Dr. Mackenzie to consider these options further - Patient will be contacted pertaining to follow up once this conversation has taken place and a plan can be discussed further Patient seen and discussed with Dr.Dr. Alfonzo Salmeron. Theo Yousif MD She has a severe right subclavian origin stenosis. Treatment options include retrograde covered stent from the right common carotid into the inominate to protect the carotid circulation from this lesion and then subsequent carotid to subclavian bypass with ligation proximal to the right vertebral artery. Another option is direct ascending aorta to right common carotid and right subclavian artery. Will review case further with Dr. Mills to assess how revascularization would eliminate her symptoms and then contact her. documented in this encounter Plan of Treatment Not on file documented as of this encounter Visit Diagnoses Diagnosis Subclavian artery stenosis, right (HCC)- Primary Atherosclerosis of other specified arteries documented in this encounter Care Teams Account General Manager Relationship Specialty Start Date End Date Fernando Chavez MD [address] [place] [address] PCP - General Family Medicine 09/06/23 documented as of this encounter
--- OUTSIDE RECORDS SUMMARY | 2024-08-08 16:01 | XMS_ITS | Encounter Summary ---
Author Organization [facility] Address [address] [place] [address] Care Team Providers Care Operations Administrator Name Role Phone Fernando Chavez MD Primary Care Provider [phone] Encounter Details Date Type Department Care Team (Latest Contact Info) Description 09/18/2023 2:[address] [facility] - 09/18/2023 11:59 PM [facility] Hospital Encounter [facility] OP DRAW STATION [address] [place] [phone] Timi Mills MD [address] [place] [address] Discharge Disposition: Home or Self Care Social History Tobacco Use Types Packs/Day Years Used Date Smoking Tobacco: Former Cigarettes Smokeless Tobacco: Never Alcohol Use Standard Drinks/Week Comments Yes 0 (1 standard drink = 0.6 oz pur e alcohol) occasionally AUDIT-C Answer Date Recorded Q1: How often do you have a drink containing alc ohol? Monthly or less 09/06/2023 Q2: How many drinks containi ng alcohol do you have on a typical day when you are drinking? 1 or 2 09/06/2023 Q3: How often do you have si x or more drinks on one occasion? Less than monthly 09/06/2023 PHQ-2 Answer Date Recorded Patient Health Questionnaire-2 Score 0 09/06/2023 Sex and Gender Information Value Date Recorded Sex Assigned at Not on file Gender Identity Not on file Sexual Orientation Not on file documented as of this encounter Functional Status Functional Status Response Date of Assess ment Is person deaf or have serious hearing difficult y? No 09/06/2023 Is person blind or have serious difficulty seein g? No 09/06/2023 Does person have serious dif ficulty walking/climbing stairs? No 09/06/2023 Does person have difficulty dressing/bathing? No 09/06/2023 Does person have difficulty doing errands alone? No 09/06/2023 Cognitive Status Response Date of Assessm ent Does person have difficulty concentrating/remembering/making decisions? Yes 09/06/2023 documented as of this encounter Medications at Time of Discharge Medication Sig Dispensed Refills Start Date End Date aspirin (Aspirin) 81 MG chew tablet Take 1 (one) tablet by mouth once daily 30 tablet 3 09/08/2023 clonazePAM (KlonoPIN) 0.5 MG tablet Take 1 (one) tablet by mouth 3 times daily clopidogrel (plaVIX) 75 MG tablet Take 1 (one) tablet by mouth once daily 30 tablet 3 09/08/2023 ondansetron (Zofran) 8 MG tablet Take 1 (one) tablet by mouth every 6 hours as needed for Nausea/Vomiting traZODone (Desyrel) 100 MG tablet Take 1.5 (one and one-half) tablets by mouth nightly as needed for Insomnia vitamin E (Tocopheryl) 100 UNIT capsule Take by mouth once daily Biotin 1000 MCG Take 1 (one) tablet by mouth once daily 09/24/2023 cyclobenzaprine (Flexeril) 10 MG tablet Take 1 (one) tablet by mouth 3 times daily 09/24/2023 docusate sodium (Colace) 100 MG capsule Take 1 (one) capsule by mouth once daily 09/24/2023 magnesium hydroxide (Milk Of Magnesia) 400 MG/5ML suspension Take 15 mL by mouth as needed for Constipation 09/24/2023 Multiple Vitamins-Minerals (Centrum) TABS Take 1 (one) tablet by mouth once daily 09/24/2023 polyethylene glycol 3350 (Miralax) 17 GM/SCOOP powder Take 17 (seventeen) g by mouth once daily 09/24/2023 tamsulosin (Flomax) 0.4 MG capsule Take 1 (one) capsule by mouth once daily At the same time every day after a meal. 30 capsule 3 09/08/2023 10/18/2023 documented as of this encounter Plan of Treatment Not on file documented as of this encounter Procedures Procedure Name Priority Date/Time Associated Diagnosis Comments TYPE + SCREEN PANEL Routine 09/18/2023 3 :[address] [facility] Pre-op evaluation documented in this encounter Results * TYPE + SCREEN PANEL (09/18/2023 3:[address] LIAISON) Antibody Screen NEG 4:[address] [facility] ABO Rh A NEG 09/18/2023 4:[address] [facility]IA[facility] Blood Bank BLOOD SPECIMEN / Unknown Lab Venipuncture / Unknown 09/18/2023 3:[address] LIAISON 09/18/2023 3:[address] [facility]IAISON Sukh Francisco [employer]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[employer] INST[employer] LAB - BLOOD B ANK ORDERABLES Performing Organization Address [facility] Co de Phone Number [facility] [address] [place] [address] [phone] documented in this encounter Visit Diagnoses Diagnosis Pre-op evaluation Preoperative examination, unspecified documented in this encounter Care Teams Operations Administrator Relationship Specialty Start Date End Date Fernando Chavez MD [address] [place] [address] PCP - General Family Medicine 09/06/23 documented as of this encounter
--- OUTSIDE RECORDS SUMMARY | 2024-08-08 16:01 | XMS_ITS | Encounter Summary ---
Author Organization [facility] Address [address] [place] [address] Care Team Providers Care Online Content Editor Name Role Phone Fernando Chavez MD Primary Care Provider [phone] Encounter Details Date Type Department Care Team (Latest Contact Info) Description 09/18/2023 2:38 PM [facility] Hospital Encounter [facility] EKG/[facility] [address] [place] [id number] Timi Mills MD [address] [place] [address] Discharge Disposition: Home or Self Care Social [...] Procedure Name Priority Date/Time Associated Diagnosis Comments EKG 12-LEAD Routine 09/18/2023 2:24 PM COMMUNICATION EQUIPMENT REPAIRER Preop examination documented in this encounter Results * EKG 12-LEAD (09/18/2023 2:24 PM COMMUNICATION EQUIPMENT REPAIRER) Ventricular Rate 72 BPM [facility] Atrial Rate 72 BPM [facility] P-R Interval 154 ms [facility] QRS Duration ms 74 ms [facility] Q-T Interval ms 408 ms [facility] QTC Calculation (Bezet) 446 ms [facility] Calculated P [place] 57 degrees [facility] Calculated R [place] 81 degrees [facility] Calculated T [place] 82 degrees [facility] Interpretation EKG NORMAL SINUS RHYTHM NORMAL ECG NO PREVIOUS ECGS AVAILABLE Confirmed by TIFFANIE ??, TOBIN ([id number]) on 09/19/2023 11:18:55 PM [facility] MUSE 09/18/2023 2:24 PM COMMUNICATION EQUIPMENT REPAIRER 09/19/2023 11:18 PM COMMUNICATION EQUIPMENT REPAIRER Timi Mills MD ECG ORDERABLES [facility] MUSE documented in this encounter Visit Diagnoses Diagnosis Preop examination- Primary Preoperative examination, unspecified documented in this encounter Care Teams Online Content Editor Relationship Specialty Start Date End Date Fernando Chavez MD [address] [place] [address] PCP - General Family Medicine 09/06/23 documented as of this encounter
--- OUTSIDE RECORDS SUMMARY | 2024-08-08 16:01 | XMS_ITS | Encounter Summary ---
Author Organization [facility] Address [address] [place] [address] Care Team Providers Care Health Record Technician Name Role Phone Fernando Chavez MD Primary Care Provider [phone] Reason for Visit * Reason Comments Weakness * Auth/Cert (Routine) Specialty Diagnoses / Procedures Referred By Contac t Referred To Contact Referral ID Status Reason Start Date Expiration Date Visits Re quested Visits Authorized [id number] 1 1 Encounter Details Date Type Department Care Team (Latest Contact Info) Description 09/24/2023 3:55 AM GALLERY ASSISTANT - 09/27/2023 7:33 PM GALLERY ASSISTANT Hospital Encounter SL 5N ACUTE [address] [place] [id number] Joseluis Bear MD [address] [facility] [address] [place] [address] Manuel Peña MD [address] [facility] [address] [place] [phone] Neurology Discharge Disposition: Home or Self Care Social [...] Sign Reading Time Taken Comments Blood Pressure 114/59 09/27/2023 3:15 PM GALLERY ASSISTANT Pulse 80 09/27/2023 3:22 PM GALLERY ASSISTANT Temperature 36.7 ??C (98 ??F) 09/27/2023 5:01 PM GALLERY ASSISTANT Respiratory Rate 16 09/27/2023 3:22 PM GALLERY ASSISTANT Oxygen Saturation 96% 09/27/2023 3:21 PM GALLERY ASSISTANT Inhaled Oxygen Concentration - - Weight 47.6 kg (105 lb) 09/24/2023 10:57 AM GALLERY ASSISTANT Height 162.6 cm (5' 4 ) 09/24/2023 10:57 AM GALLERY ASSISTANT Body Mass Index 18.02 09/24/2023 10:57 AM GALLERY ASSISTANT documented in this encounter Functional Status Functional [...] No 09/27/2023 documented as of this encounter Discharge Summaries * Manuel Peña MD - 09/27/2023 7:33 PM CST The above note was reviewed. The patient was seen and examined. I would add the following: I saw and examined the patient with the resident and/or medical student and/or nurse practitioner. I have verified all details of the note and agree with his/her documentation with additions and modifications as listed in my separate note. Please refer to the resident's, medical student's, or nursepractitioner's note for plans of active problems not discussed in this note. ?? Madison Weinberg is a 57 year old female who presents transient left sided numbness in the setting of severe R subclavian stenosis. Vascular surgery consult of possible bypass. Dx angio today confirmed stenosis, Right CLIENT SOLUTIONS SPECIALIST, no contribution from left carotid system to the right ICA. Awaiting surgical decision and timing from vascular surgery as o/p. Will discharge today. MEDICATIONS FOR CURRENT ENCOUNTER: ?? SCHEDULED MEDICATIONS: ?? CONTINUOUS MEDICATIONS: ?? No current facility-administered medications for this encounter. ?? PRN MEDICATIONS: ?? No current facility-administered medications for this encounter. Patient Vitals for the past 24 hrs: Temp Pulse Resp BP 09/27/23 1701 98 ??F (36.7 ??C) -- -- -- 09/27/23 1522 -- 80 16 -- 09/27/23 1521 -- 63 16 -- 09/27/23 1515 -- 60 11 114/59 09/27/23 1500 -- 61 12 110/59 09/27/23 1451 -- -- 9 -- 09/27/23 1445 -- 60 20 122/64 09/27/23 1430 -- 60 11 127/72 09/27/23 1415 -- 71 18 129/74 09/27/23 1407 97.9 ??F (36.6 ??C) 81 18 118/83 09/27/23 1355 -- 88 12 134/81 09/27/23 1350 -- 92 14 112/68 09/27/23 1345 -- 78 13 121/60 09/27/23 1340 -- 82 17 116/63 09/27/23 1335 -- 77 12 123/57 09/27/23 1330 -- 82 19 123/62 09/27/23 1325 -- 77 13 122/69 09/27/23 1320 -- 98 17 124/67 09/27/23 1315 -- 96 11 115/67 09/27/23 1310 -- 87 14 112/71 09/27/23 1305 -- 75 13 123/66 09/27/23 1300 -- 75 12 153/82 09/27/23 1255 -- 80 20 164/84 09/27/23 1221 99.2 ??F (37.3 ??C) 87 16 155/90 Intake/Output Summary (Last 24 hours) at 09/28/2023 0906 Last data filed at 09/27/2023 1751 Gross per 24 hour Intake 240 ml Output -- Net 240 ml Labs: Recent Labs Component Name 09/06/23 0146 CHOL 144 TRIG 79 HDL 42 LDLCALC 86 No results for input(s): HGBA1C in the last 44954 hours. Recent Labs Component Name 09/24/23 0430 09/07/23 0638 09/06/23 0146 NA 141 140 144 POTASSIUM 3.9 3.1* 3.1* CL 107 107 112* CO2 BUN 16 9 6* CREATININE 0.91 0.88 0.87 CALCIUM 9.4 9.1 8.5 MAGNESIUM - 1.6 1.9 PHOS - 3.6 2.9 Recent Labs Component Name 09/27/23 0150 09/26/23 0648 09/25/23 0545 09/24/23 0433 WBC 7.0 5.5 5.8 8.1 HGB 12.0 12.1 11.8* 12.6 HCT 35.1 35.1 35.4 37.5 PLTCOUNT 334 338 318 404 RBC 3.96 3.98 3.94 4.15 Recent Labs Component Name 09/27/23 0929 09/27/23 0150 09/26/23 2350 09/26/23 1621 09/26/23 0648 09/25/23 1243 09/25/23 0545 PT - 13.9 - - 13.9 - 14.0 INR - 1.1 - - 1.1 - 1.1 PTT 57.9* 77.9* 78.1* - 96.8* - 72.7* - = values in this interval not displayed. No results for input(s): PH , PCO2 , PO2 , HCO3 , FIO2 in the last 34397 hours. Invalid input(s): PH8ABG No data found. Micro: Microbiology Results (Displays last 21 days for this encounter ONLY) Procedure Component Value - Date/Time SARS-COV-2 (COVID-19) RAPID [[id number]] (Normal) Collected: 09/07/23 1213 Lab Status: Final result Specimen: Microbiology from Nasopharyngeal Updated: 09/07/23 1257 COVID-19 PCR Not detected Narrative: The Cepheid Xpert Xpress SARS-COV-2 has been authorized by the Food and Drug Administration (FDA) under an Emergency Use Authorization (EUA). This test has been validated in accordance with the FDA'sguidance document Policy for Diagnostic Testing in Laboratories Certified to perform High Complexity Testing under CLIA prior to Emergency Use Authorization for Coronavirus Disease-2019 during the Public Health Emergency issued on October 10, 2019. FDA independent review of this validation is pending. This test is only authorized for the duration of the time the declaration that circumstances exist justifying the authorization of emergency use of in vitro diagnostic tests for detection of SARS-COV-2 virus and/or diagnosis of COVID-19 infection under 564(b) (1) of the Act. 21 U.S.C. 360bbb-3 (b) (1), unless the authorization is terminated or revoked sooner. Fact Sheets for this EUA assay are available upon request. Length of stay: 1 Problem List Subclavian artery stenosis, right (CMS-HCC) (POA: Yes) Numbness in left leg (POA: Yes) Left arm numbness (POA: Yes) Weakness of left side of body (POA: Unknown) Slurred speech (POA: Yes) Present on Admission: ??? Slurred speech ??? Subclavian artery stenosis, right (CMS-HCC) ??? Numbness in left leg ??? Left arm numbness Routine multidisciplinary rounds were completed today with the presence of the primary team staff, residents, PT/OT/EXPLOSIVE OPERATOR SUPERVISOR and CM/SW. Manuel Peña MD Vascular and Interventional Neurology ERY ASSISTANT * Milady Carroll MD - 09/27/2023 7:33 PM CST Physician Discharge Summary Patient ID: Madison Weinberg [id number] 57 year old 1965 Admit date: 09/24/2023 Discharge date: 09/27/23 Admitting Physician: Joseluis Bear MD Discharge Physician: Joseluis Bear MD Present on Admission: No admission diagnoses are documented for this encounter. Discharge Diagnoses: R subclavian stenosis Admission Condition: stable Discharged Condition: fair Indication for Admission: L sided numbness and weakness Hospital Course: Madison Weinberg??is a 57 year old female with medical hx as listed below presented for blurry vision, L sided numbness and weakness. In [facility] ED initial NIHSS is 1 for L sided numbness. CTH and CTA H+N was unrevealing. TNK not given due to low NIHSS. Patient had known severe right subclavian calcified stenosis seen on CTA on prior admission. Clinical picture??was concerning for??subclavian steal syndrome.??Diagnostic angiogram was performed. Started on??aspirin + plavix.? Consults: Vascular surgery Discharge Exam: Awake, alert, Follows commands. Oriented x??3 Fluency intact, comprehension intact, repetition intact. ??Intact bilaterally to confrontation. No appreciable visual or tactile neglect noted. CN 3 - 12??intact Motor: Tone/bulk/Abnormal movements: None. ?? Objective strength: ?? Proximal Upper Distal Upper Proximal Lower Distal Lower Right 5/5 5/5 5/5 5/5 Left 4/5 4/5 4+/5 4+/5 ?? Muscle Stretch Reflexes ?? BI TRI BR PAT ACH TOES Right 2 2 2 2 2 Down Left 2 2 2 2 2 Down ?? Light touch and pinprick decreased on L side? Cerebellar ?? FNF Right Intact Left Intact ?? Gait Deferred Disposition: Home Patient Instructions: Current Discharge Medication List CONTINUE taking these medications which have NOT CHANGED Instructions Authorizing Provider aspirin 81 MG chew tablet Commonly known as: Aspirin Quantity Dispensed: 30 tablet Take 1 (one) tablet by mouth once daily Gildardo Lees clonazePAM 0.5 MG tablet Commonly known as: KlonoPIN Take 1 (one) tablet by mouth 3 times daily clopidogrel 75 MG tablet Commonly known as: plaVIX Quantity Dispensed: 30 tablet Take 1 (one) tablet by mouth once daily Gildardo Lees ondansetron 8 MG tablet Commonly known as: Zofran Take 1 (one) tablet by mouth every 6 hours as needed for Nausea/Vomiting tamsulosin 0.4 MG capsule Commonly known as: Flomax Quantity Dispensed: 30 capsule Take 1 (one) capsule by mouth once daily At the same time every day after a meal. Gildardo Lees traZODone 100 MG tablet Commonly known as: Desyrel Take 1.5 (one and one-half) tablets by mouth nightly as needed for Insomnia vitamin E 100 UNIT capsule Commonly known as: Tocopheryl Take by mouth once daily Signed: Milady Carroll MD Neurology PGY2 ERY ASSISTANT documented in this encounter Medications at Time of Discharge [...] UNIT capsule Take by mouth once daily tamsulosin (Flomax) 0.4 MG capsule Take 1 (one) capsule by mouth once daily At the same time every day after a meal. 30 capsule 3 09/08/2023 10/18/2023 documented as of this encounter Progress Notes * Ragini Song RN - 09/27/2023 4:15 PM CST Problem: Balance Goal: LTG - Patient will maintain balance to allow for safe mobility Outcome: Adequate for Discharge Goal: LTG - Patient will demonstrate Intervention to enhance balance for safe completion of daily activities Outcome: Adequate for Discharge Problem: Pain/Discomfort Goal: Patient exhibits reduced pain/discomfort as evidenced by pain scores Outcome: Adequate for Discharge Goal: Patient uses pharmacological and non-pharmacological pain management strategies. Outcome: Adequate for Discharge Goal: Patient verbalizes acceptable level of pain relief and ability to engage in desired activity. Outcome: Adequate for Discharge Problem: Neurological Deficit Goal: Neurological status is stable or improving Outcome: Adequate for Discharge Problem: Hemodynamic Status/Cardiac Output Goal: Patient has stable vital signs and fluid balance Outcome: Adequate for Discharge Problem: Oxygenation/Respiratory Function Goal: Respiratory rate/effort will be within specified limits Outcome: Adequate for Discharge ERY ASSISTANT * Radha Landers RN - 09/27/2023 1:51 PM CST Interventional Radiology Nursing - End Procedure Note Sedation: Versed: 3 mg, Fentanyl: 200 mcg Sedation start time: 1303 hours Procedure start time: 1312 hours Procedure end time: 1351hours Additional drugs: None Contrast: 90 mL of Isovue-300 Fluoroscopy time: 7.2 min ERY ASSISTANT * Mark Salmeron MD - 09/27/2023 10:40 AM CST Images from the original note were not included. VASCULAR SURGERY PROGRESS NOTE ADMIT: 09/24/2023 3:55 AM LOS: 1 day 09/27/2023 HISTORY: This is a 57 year old female with a PMHx s/f HTN, endometriosis requiring multiple abdominal surgeries, recently evaluated by neuro stroke and neuro IR for R subclavian steal syndrome in thesetting of recurrent TIAs who presented on 09/24/2023 for recurrent TIA symptoms. Vascular surgery consulted for possible open surgical options given the lesion's location at the bifurcation of the subclavian and R CCA and presence of soft plaque. Procedures: NA SUBJECTIVE: AFVSS No recurrent symptoms Planned for cerebral angiogram today OBJECTIVE: Blood pressure 144/75, pulse 93, temperature 98.3 ??F (36.8 ??C), temperature source Oral, resp. rate 16, height 1.626 m (5' 4 ), weight 47.6 kg (105 lb), SpO2 100%. Temp: [98.3 ??F (36.8 ??C)-99.6 ??F (37.6 ??C)] 98.3 ??F (36.8 ??C) Pulse: [57-93] 93 Resp: [16-18] 16 BP: (109-173)/(64-83) 144/75 DIET: DIETARY NUTRITION SUPPLEMENTS DIET NPO Except: NO EXCEPTIONS Ins/Outs: 09/26 0701 - 09/27 0700 In: 580 [P.O.:580] Out: - Scheduled Medications: 0.9% NaCl 3 mL Intracatheter q8h aspirin 81 mg Oral QDAY clonazePAM 0.5 mg Oral TID clopidogrel 75 mg Oral QDAY Continuous Medications: lactated ringers, , Last Rate: 20 mL/hr at 09/26/23 1142 PRN Medications: 0.9% NaCl, 1-10 mL, PRN acetaminophen, 650 mg, q4h PRN traZODone, 150 mg, AT BEDTIME PRN Physical Exam Gen: NAD and A&O x 3 ENT: Normocephalic and EOMI Resp: unlabored breathing on RA CV: RRR Abd: Soft, Non-distended and Non-peritoneal, no rebound/guarding MSK: 5/5 strength in all extremities, WWP Vasc: palpable radial pulses b/l, L>R Neuro: CN II-XII grossly intact Psych: Appropriate mood and affect RECENT LABS: Recent Labs Component Name 09/27/23 0150 09/26/23 0648 09/25/23 0545 WBC 7.0 5.5 5.8 HGB 12.0 12.1 11.8* HCT 35.1 35.1 35.4 MCV 88.6 88.2 89.8 Recent Labs Component Name 09/24/23 0430 09/07/23 0638 09/06/23 0146 NA 141 140 144 POTASSIUM 3.9 3.1* 3.1* CL 107 107 112* CO2 22 BUN 16 9 6* CREATININE 0.91 0.88 0.87 CALCIUM 9.4 9.1 8.5 MAGNESIUM - 1.6 1.9 PHOS - 3.6 2.9 Recent Labs Component Name 09/24/23 0430 PROT 7.7 ALB 4.2 TBILI 0.3 AST 34 ALT 18 ALKPHOS 93 Recent Labs Component Name 09/27/23 0929 09/27/23 0150 09/26/23 2350 09/26/23 1621 09/26/23 0648 09/25/23 1243 09/25/23 0545 INR - 1.1 - - 1.1 - 1.1 PTT 57.9* 77.9* 78.1* - 96.8* - 72.7* - = values in this interval not displayed. RECENT IMAGING: CTA: Reviewed. ASSESSMENT: Madison Weinberg is a 57 year old female with right subclavian artery stenosis and recurrent TIA symptoms. Vascular surgery is consulted for possible open surgical options given the lesion's location at the bifurcation of the subclavian and R CCA and presence of soft plaque. PLAN: - Per discussion with neuro team, symptoms believed to be due to vetebrobasilar source - Planned cerebral angiogram today to evaluate vertebrobasilar anatomy, will follow results - Pending findings of angiogram, can plan possible intervention next week, no acute intervention atthis time. Further discussion of optimal approach and timing to be held with staff; will update plan and team accordingly - Continue antiocoagulation - Rest of care per primary team, please call with any questions or concerns Patient will be staffed with attending, Dr. Salmeron. Note to be updated with any changes. Ramandeep Argueta MD 09/27/2023 10:40 AM I saw and examined this patient with regards to the right subclavian artery stenosis and neurologicfindings. Will discuss results of neuro-angio today with Dr. Mills. Ok for discharge from my standpoint and outpatient follow up - which we will arrange pending further discussion. ERY ASSISTANT * Stephani Briceno RN - 09/27/2023 9:21 AM CST Care Coordination Progress Note Anticipated level of care at discharge: Home: Anticipated level of care provider: None: Anticipated Discharge Date: 09/30/23: Discharge Plan: Home once medically ready. Pending diagnostic angio. Orientation Level: Oriented X4: Family Support (Name and Phone): Extended Emergency Contact Information Primary Emergency Contact: Jered Broa Mobile Relation: Mother Transportation at Discharge: : pt's car in hospital parking lot READMISSION RISK SCORE is 10 at 9:21 AM 09/27/2023.: Name: Stephani Briceno RN [phone] ERY ASSISTANT * Hema Peres - 09/27/2023 9:12 AM CST Stroke Service Daily Progress Note Madison Weinberg Age: [id number] year old Date of : 1965 Date of Admission: 09/24/2023 Hospital Day: 3 Subjective Patient is a 57 year old white female who presented with left sided decreased sensation, facial droop and slurred speech, admitted for concern for stroke/TIA. 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 TPA not administered due low NIH No mechanical thrombectomy due to no clot found. At home the patient was on: ASA 81mg, Plavix 75mg Had previous TIA 09/06/2023 and has had residual decreased sensation on the left side H/o A.Fib No CT Head showed no acute intracranial hemorrhage 09/24/2023 MRI performed no acute cerebral infarction. No acute intracranial abnormality. Other nonspecific findings possibly due to idiopathic intracranial hypertension. Interval History: Patient had no acute events occur overnight. Patient remained afebrile (Tm - 99.6) with blood pressures ranging from 173-109/83-64. Objective Patient Vitals for the past 24 hrs: BP Temp Temp src Pulse Resp SpO2 09/27/23 0800 144/75 98.3 ??F (36.8 ??C) Oral 93 16 100 % 09/27/23 0419 134/64 99.1 ??F (37.3 ??C) Oral 81 -- 98 % 09/27/23 0009 109/66 98.5 ??F (36.9 ??C) Oral 57 -- 100 % 09/26/232025 146/69 99.2 ??F (37.3 ??C) Oral 68 -- 95 % 09/26/232000 -- -- -- -- 18 99 % 09/26/23 1542 133/83 99.6 ??F (37.6 ??C) Oral 84 -- 100 % 09/26/23 1156 173/73 99.1 ??F (37.3 ??C) Oral 81 -- 100 % Intake/Output Summary (Last 24 hours) at 09/27/2023 0912 Last data filed at 09/26/20232000 Gross per 24 hour Intake 580 ml Output -- Net 580 ml Exam: Cortical Function Mental Status Awake, alert, follows commands Orientation Person, place, time, and situation Language Fluency intact, comprehension intact, repetition intact Visual Smith Intact bilaterally to confrontation Neglect No visual neglect noted, no tactile neglect noted Cranial Nerves II Pupils 5 mm and bilaterally reactive to light. Fundoscopic exam not performed. VIII Hearing is intact bilaterally to finger rub. III/IV/ Extraocular muscles intact. No diplopia, ptosis, nystagmus or convergence abnormalities noted. IX/X Palate elevated symmetrically without phonation abnormalities noted. V Facial sensation decreased on left side to light touch and intact bilaterally. Corneal reflex notexamined. XI Head turning and shoulder shrug are intact.Weaker turning to left VII No facial palsy noted. XII Tongue is midline with normal movements and no atrophy noted. Motor Function Movement No abnormalities noted Bulk No abnormalities noted Tone No abnormalities noted Proximal Upper Distal Upper Proximal Lower Distal Lower Right 5/5 5/5 5/5 5/5 Left 4+/5 4+/5 4+/5 4+/5 Sensory Light Touch Decreased on left side but intact bilaterally Noxious Stimuli Decreased on left side but intact bilaterally Temperature Decreased left leg, decreased left 5th digit. Pallesthesia Not tested Cerebellar: JOSH intact FNF intact -Eyes closed left finger touching nose improved Gait Deferred Imaging: CT Head Unremarkable 09/24/2023 CTA H & N Severe stenosis of the origin of right subclavian artery, atherosclerotic disease of the extracranial and intracranial arterial vessels MRI Brain no acute cerebral infarction. No acute intracranial abnormality. Other nonspecific findings possibly due to idiopathic intracranial hypertension. EKG/Tele Sinus rhythm with marked sinus arrythmia 09/25/2023, previous EKG showed normal sinus rhythm 09/18/2023 LDL 86 09/07/2023 WBC 5.1 09/25/23 8.1 09/24/23 Labs: Reviewed. Assessment Madison Weinberg is a 57 year old female presenting for slurred speech, decreased left side sensation, facial droop, concerning for TIA/stroke . Stroke Type: Ischemic Stroke Mechanism: TIA secondary to subclavian steal syndrome Plan -Cerebral angiogram in progress, will use that to plan for what possible intervention will be used for next week. -Continue anticoagulation Blood Pressure Goals: Stroke/TIA without tPA < 220/120 Core Measures tPA administration: no Anti-thrombotic: Aspirin 81mg, Clopidogrel 75mg PT/OT Evaluation: PT and OT states patient may return home without need for skilled therapy services. Smoking cessation: Stopped smoking sometime before admisison Individual Modifiable Risk Factors Hypertension: no Hyperlipidemia: no Diabetes: no Atrial Fibrillation: no Tobacco: no, but used in the past Case findings discussed with Dr. Bear, Stroke Attending Hema Peres MS3 Medical Student ERY ASSISTANT * Quentin Celestin RN - 09/27/2023 2:59 AM CST All goals ongoing Problem: Balance Goal: LTG - Patient will maintain balance to allow for safe mobility Outcome: Progressing Goal: LTG - Patient will demonstrate Intervention to enhance balance for safe completion of daily activities Outcome: Progressing Problem: Pain/Discomfort Goal: Patient exhibits reduced pain/discomfort as evidenced by pain scores Outcome: Progressing Goal: Patient uses pharmacological and non-pharmacological pain management strategies. Outcome: Progressing Goal: Patient verbalizes acceptable level of pain relief and ability to engage in desired activity. Outcome: Progressing Problem: Neurological Deficit Goal: Neurological status is stable or improving Outcome: Progressing Problem: Hemodynamic Status/Cardiac Output Goal: Patient has stable vital signs and fluid balance Outcome: Progressing Problem: Oxygenation/Respiratory Function Goal: Respiratory rate/effort will be within specified limits Outcome: Progressing Problem: Mobility Goal: Patient's mobility/activity will be maintained as optimum level for age, diagnosis and physical limitations Outcome: Progressing Goal: Continuum of care needs are further met through referral to outpatient services when appropriate. Outcome: Progressing Goal: Patient reports the ability to perform Activities of Daily Living. Outcome: Progressing Problem: Communication Impairment/Dysarthria Goal: Ability to express needs and understand communication Outcome: Progressing Problem: Nutrition Goal: Nutritional status is improving Outcome: Progressing Problem: Aspiration Precautions Goal: Patient's risk of aspiration is minimized Outcome: Progressing Problem: Glycemic Control Goal: Clinical indication of glycemia balance is achieved Outcome: Progressing Problem: Knowledge Deficit,Education,Discharge Plan Goal: The patient/family will understand cerebrovascular disease and its symptoms, treatment and management Outcome: Progressing Problem: Nutrient: Malnutrition Goal: Total intake will meet estimated nutrient needs Outcome: Progressing Problem: Fall Risk Goal: Fall risk and fall related injury risk are minimized (interventions related to the fall risk can be found in the flowsheet documentation) Outcome: Progressing ERY ASSISTANT * Barrie Nickerson MD - 09/26/2023 4:14 PM CST Stroke Service Daily Progress Note Madison Weinberg Age: [id number] year old Date of : 1965 Date of Admission: 09/24/2023 Hospital Day: 2 Subjective Madison Weinberg??is a 57 year old female with medical hx as listed below presented for blurry vision, L sided numbness and weakness. LKW is 03.00 which is an hour ago when patent was sitting on couch and resting. In [facility] ED initial NIHSS is 1 for L sided numbness. CTH and CTA H+N was unrevealing. TNK not given due to low NIHSS. Patient presented with similar symptoms on 09/06/2023. That time she had??transit left hemiparesis after strenuous physical activity.??MRI??was??negative for acute pathologies. CTA showed a severe right subclavian calcified stenosis. Clinical picture??was concerning for??subclavian steal syndrome.??Cerebral angiogram planned. Started on??aspirin + plavix.? Interval History: No acute events overnight. Objective Patient Vitals for the past 24 hrs: BP Temp Temp src Pulse Resp SpO2 09/26/23 1156 173/73 99.1 ??F (37.3 ??C) Oral 81 -- 100 % 09/26/23 0840 157/79 99.4 ??F (37.4 ??C) Oral 94 -- 98 % 09/26/23 0559 122/64 99.7 ??F (37.6 ??C) Axillary 60 15 100 % 09/26/23 0223 148/75 98.7 ??F (37.1 ??C) Oral 65 15 100 % 09/25/232056 144/83 99.1 ??F (37.3 ??C) Oral 75 16 100 % 09/25/23 1930 121/83 -- -- 86 20 99 % 09/25/23 1921 -- -- -- 92 22 100 % 09/25/23 1900 162/88 -- -- 93 25 95 % 09/25/23 1841 123/84 -- -- 79 -- 97 % 09/25/23 1830 88/65 -- -- 92 (!) 32 97 % 09/25/23 1800 126/99 -- -- (!) 125 18 (!) 88 % 09/25/23 1730 138/83 -- -- 80 29 99 % 09/25/23 1700 107/67 -- -- 75 22 94 % 09/25/23 1630 (!) 133/106 -- -- 80 13 97 % Intake/Output Summary (Last 24 hours) at 09/26/2023 1614 Last data filed at 09/26/2023 0840 Gross per 24 hour Intake 0 ml Output -- Net 0 ml Exam: Awake, alert, Follows commands. Oriented x??3 Fluency intact, comprehension intact, repetition intact. ??Intact bilaterally to confrontation. No appreciable visual or tactile neglect noted. CN 3 - 12??intact Motor: Tone/bulk/Abnormal movements: None. ?? Objective strength: ?? Proximal Upper Distal Upper Proximal Lower Distal Lower Right 5/5 5/5 5/5 5/5 Left 4/5 4/5 4+/5 4+/5 ?? Muscle Stretch Reflexes ?? BI TRI BR PAT ACH TOES Right 2 2 2 2 2 Down Left 2 2 2 2 2 Down ?? Light touch and pinprick decreased on L side? Cerebellar ?? FNF Right Intact Left Intact ?? Gait Deferred Labs: Recent Labs Component Name 09/26/23 0648 09/25/23 0545 09/24/23 0433 WBC 5.5 5.8 8.1 RBC 3.98 3.94 4.15 HGB 12.1 11.8* 12.6 HCT 35.1 35.4 37.5 Recent Labs Component Name 09/24/23 0430 09/07/23 0638 09/06/23 014 NA 141 140 144 CL 107 107 112* CO2 BUN 16 9 6* CREATININE 0.91 0.88 0.87 CALCIUM 9.4 9.1 8.5 No results for input(s): MG in the last 47520 hours. Recent Labs Component Name 09/07/23 0638 09/06/23 0146 PHOS 3.6 2.9 Recent Labs Component Name 09/26/23 0648 09/26/23 0007 09/25/23 1848 09/25/23 1243 09/25/23 0545 09/24/23 2313 09/24/23 1421 PT 13.9 - - - 14.0 - 13.6 INR 1.1 - - - 1.1 - 1.1 PTT 96.8* 53.1* 84.5* - 72.7* - 29.5 - = values in this interval not displayed. No results for input(s): A1C in the last 08312 hours. Recent Labs Component Name 09/06/23 0146 CHOL 144 HDL 42 LDLCALC 86 TRIG 79 No results for input(s): TSH in the last 00469 hours. Invalid input(s): FT4 , TOTT3 No results for input(s): CKMB , CKTOTAL , TROPONINI , BNP in the last 02951 hours. MRI BRAIN WO CONTRAST Result Date: 09/25/2023 IMPRESSION: 1. No evidence of acute cerebral [...] 09/25/2023 8:18 AM with read back verification. IBriana MD have personally reviewed and interpreted this examination/study. > Interpreting Provider: Briana Joseph MD on 09/25/2023 8:[address] ANGIO BRAIN NECK STROKE Result Date: 09/24/2023 IMPRESSION: 1.No significant change since prior. 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 3.Severe stenosis of the origin of the right subclavian artery is again noted. 4.Otherwise, no large arterial occlusions or significant stenoses identified in the head or neck. Viz.AI was used for large vessel occlusion detection. > Dictated by Dutch Morales DO (vice president of product marketing). Lay Casillas MD have personally reviewed and interpreted this examination/study. > Interpreting Provider: Lay Chaudhry MD on 09/24/2023 10:[address] BRAIN - Stroke Result Date: 09/24/2023 IMPRESSION: 1.No acute intracranial hemorrhage. 2.Please note that CT is insensitive to nonhemorrhagic strokes and MRI should be considered if there is clinical concern for acute infarction. 3.Fundusexamination is recommended to exclude papilledema and/or the possibility of idiopathic intracranial hypertension (IIH). > Dictated by Theo Hebert DO (vice president safety) ILay MD have personally reviewed and interpreted this examination/study. > Interpreting Provider: Lay Chaudhry MD on 09/24/2023 10:33 AM Slurred speech (POA: Unknown) Assessment 57 year old female with severe right subclavian calcified stenosis. Clinical picture??was concerning for??subclavian steal syndrome. Vascular surgery evaluating for bypass vs stenting with IR??vs hybrid Plan Subclavian steal syndrome - diagnostic angiogram tomorrow; will be NPO at midnight - Tele + neuro checks q4h - Cardiac diet - On heparin gtt - PT/OT: no further therapy needs Blood Pressure Goals: Permissive hypertension < 220/120 #Anxiety - Klonopin 0.5 mg TID Case findings discussed with Dr. Bear, Stroke Attending. Barrie Nickerson MD Neurology Resident ERY ASSISTANT * Ragini Song RN - 09/26/2023 3:27 PM CST Problem: Balance Goal: LTG - Patient will maintain balance to allow for safe mobility Outcome: Progressing Goal: LTG - Patient will demonstrate Intervention to enhance balance for safe completion of daily activities Outcome: Progressing Problem: Pain/Discomfort Goal: Patient exhibits reduced pain/discomfort as evidenced by pain scores Outcome: Progressing Goal: Patient uses pharmacological and non-pharmacological pain management strategies. Outcome: Progressing Goal: Patient verbalizes acceptable level of pain relief and ability to engage in desired activity. Outcome: Progressing Problem: Neurological Deficit Goal: Neurological status is stable or improving Outcome: Progressing Problem: Hemodynamic Status/Cardiac Output Goal: Patient has stable vital signs and fluid balance Outcome: Progressing Problem: Mobility Goal: Patient's mobility/activity will be maintained as optimum level for age, diagnosis and physical limitations Outcome: Progressing Goal: Continuum of care needs are further met through referral to outpatient services when appropriate. Outcome: Progressing Goal: Patient reports the ability to perform Activities of Daily Living. Outcome: Progressing Problem: Oxygenation/Respiratory Function Goal: Respiratory rate/effort will be within specified limits Outcome: Progressing Problem: Communication Impairment/Dysarthria Goal: Ability to express needs and understand communication Outcome: Progressing ERY ASSISTANT * Stephani Briceno RN - 09/26/2023 11:54 AM CST Stroke Psychosocial Assessment Case Management Screen completed, welcome letter given Met with patient Lives with: Alone Diagnosis: The encounter diagnosis was Slurred speech. Contacts/Support: Extended Emergency Contact Information Primary Emergency Contact: DieudonneMadison Mobile Relation: Mother Insurance: Payer/Plan Subscriber Name Rel Member # Group # [employer] - [facility]* MADISON WEINBERG* Self [id number] [address] [address] Prior level of functioning: Cognition: wnl Mental Health History: anxiety Employment/income status: Unemployed Alcohol/Drug/Tobacco: former smoker, occasional drinker and marijuana use Prior Stroke: yes Co-morbidities: yes Medication Needs: yes Established Resources: Community Resource Contact Information: SW Referral: No If patient requires HHC at discharge, he/she requests: Anticipated level of care provider: None Equipment at Home: Walker-2 Wheeled;Grab Bars;Speech Pathologist;Cane-Straight Current DME Provider: Recommended/Needed DME: PCP: Fernando Chavez MD If no PCP, action taken: Transportation: Coping Strengths: strong community support Short Term Goals: feel better Vice President Client Services Goals: return to baseline Family/Support included in planning:Yes Patient and Family Questions/Concerns: not at this time Discharge Plan: Anticipated level of care at discharge: Home Anticipated Discharge Date: 09/27/23 Stephani Briceno RN Phone: [phone] 09/26/2023 ERY ASSISTANT * Jessica Jackson RD/BENJY - 09/26/2023 10:45 AM CST Clinical Nutrition Assessment Brief Synopsis: Patient is dx with moderate malnutrition; Specific criteria can be found in assessment below Nutrition Plan: Cardiac diet order +[place] Instant Breakfast mixed with 2% milk (260 kcals, 13 g protein, 40 g carbohydrate) 6x/daywith whole milk Recommendations to Physician: Code for malnutrition Liberalize diet order to better aid increased PO intake and promote weight gain Consider starting pt on bowel regimen; 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 Body mass index is 18.02 kg/m??. Noted pt presented for evaluation of code stroke; Krystin team following. Per neurology notes, pt likely had TIA. Noted pt passed bedside nursing swallow on 09/24. Pt just advanced to Cardiac diet. Clinical nutrition familiar with pt;same RD followed with pt in recent admission. Limited PO intake documentation since admission. LastBM 09/22. Labs reviewed -- lytes wnl. Lipid profile appears normal. No A1C collected at this time. No hx of DM noted in chart. Pt reported decent appetite. Denies any recent N/V/D/C at this time. Pt expressed that she is on a 3000 kcal/day diet at home, in which she supplements with [place] Instant Breakfast ( mixed with whole milk 6x/day ). Fat/muscle wasting still present, but appears improved. RD cannot validate current weight status. Pt meets ASPEN criteria for moderate malnutrition; see full malnutrition etiology below for specific details. Will continue at-home ONS regimen during this admission. Recommend liberalizing diet order to better aid with increased nutrient intake to promote weight gain. RD to follow per clinical nutrition guidelines. Assessment: Med/Surg History and Clinical Diagnoses: 57 year old female with medical hx as listed below presented for blurry vision, L sided numbness and weakness Height: 162.6 cm (5' 4 ) Weight: 47.6 kg (105 lb) BMI: Body mass index is 18.02 kg/m??. BMI Range: Underweight IBW/lb (Calculated) Female: 120, Recent Weights/Methods 09/06/2023 0100 09/06/2023 0800 09/18/2023 1401 09/24/2023 0347 09/24/2023 0411 09/24/2023 1057 Weight: 46.7 kg (103 lb) 46.7 kg (103 lb) 48.4 kg (106 lb 12.8 oz) 47.6 kg (105 lb) 47.6 kg (105 lb) 47.6 kg (105 lb) Weight Method : -- -- Standing -- -- Stated Wt Comments: reviewed -- cannot validate current weight status as last documented weight stated Diet order accuracy Current diet order: NPO Nutrition recommendation: alter/change nutrition order P.O.Intake for the past 48 hrs: % Meal Taken Av % Min: 0 % Max: 0 % Supplement(s) Consumed- Last 48 hours None Food Allergies: No known food allergies GI Concerns: None Chewing/Swallowing: (pending swallow eval) Pain affecting intake: No Malnutrition Etiology: (Add to Active Problem List) Malnutrition in the context of: chronic disease, Malnutrition Severity: Moderate Protein Calorie BMI: Body mass index is 18.02 kg/m??. GI Concerns: None Nutrition Focused Physical Assessment: Loss of Subcutaneous Fat Orbital: Moderate Buccal: Moderate Tricep: Moderate Muscle Loss Temples (Temporalis Muscle): Moderate Clavicles (Pectoralis & Deltoids): Moderate Shoulders (Deltoids): Moderate Interosseous Muscle: Moderate Estimated Needs: KCAL: 9931-1364 (35-45 kcal/kg ABW) Protein (g): 83-107g (20% of total kcal needs) Fluid (ml): 1 ml/kcal Needs based on: Kcal/kg- (Comment) (ABW of 47.6kg) Recommended Access Route: PO Laboratory values: Recent Labs Component Name 09/24/23 0430 09/24/23 0427 09/07/23 0638 09/06/23 0146 BUN 16 - 9 6* CREATININE 0.91 - 0.88 0.87 NA 141 - 140 144 POTASSIUM 3.9 - 3.1* 3.1* CL 107 - 107 112* CO2 24 - 24 22 GLUCOSE 77 - 98 107 CALCIUM 9.4 - 9.1 8.5 PROT 7.7 - - - ALB 4.2 - - - TBILI 0.3 - - - ALKPHOS 93 - - - ALT 18 - - - AST 34 - - - ANIONGAP 10 - 9 10 BCR 18 - 10 7 OSMOLALITY 292 - 289 296* AGRATIO 1.2 - - - EGFR 74* 89* 77* 78* Medications: Current Facility-Administered Medications Medication ??? 0.9% NaCl injection 3 mL And ??? 0.9% NaCl injection 1-10 mL ??? clonazePAM (KlonoPIN) tablet 0.5 mg ??? heparin 100 units/mL in dextrose 5 % infusion ??? lactated ringers infusion Skin/Wound: WDL Nutrition Care Process (1) Nutrition Diagnostic Statement: Inadequate protein-energy intake related to:: decreased ability to consume or tolerate adequate food and/or fluids due to illness as evidenced by:: BMI less than 19;oral intake less than .. (NPO) Nutrition Diagnostic Statement Progress: New diagnostic statement established Nutrition Intervention: Meals and snacks: Monitoring: GI, PO intake, WT, labs, medications Evaluation: Nutrition Goal: Total intake will meet estimated nutrient needs Nutrition Goal Timeframe: Throughout stay Nutrition Goal Progress: New goal established Jessica Jackson MS, RD/RDN, LD Ascom: [id number] ERY ASSISTANT * Hema Peres - 09/26/2023 9:20 AM CST Stroke Service Daily Progress Note Madison Weinberg Age: [age] year old Date of : 1965 Date of Admission: 09/24/2023 Hospital Day: 2 Subjective Patient is a 57 year old white female who presented with left sided decreased sensation, facial droop and slurred speech, admitted for concern for stroke/TIA. Date last known well: 09/24/2023 Time last known well: 0300 -Patient has known right subclavian calcified stenosis, likely subclavian steal syndrome -Patient is anxious but had some relief after being updated on the plan going forward. -Asked if she could get her Clonazepam 3x daily, will medlist accordingly Presented to the ER at 0350 on 09/24/2023 and the NIHSS score was 1 . TPA not administered due low NIH No mechanical thrombectomy due to no clot found. At home the patient was on: ASA 81mg, Plavix 75mg Had previous TIA 09/06/2023 and has had residual decreased sensation on the left side H/o A.Fib No CT Head showed no acute intracranial hemorrhage 09/24/2023 MRI performed no acute cerebral infarction. No acute intracranial abnormality. Other nonspecific findings possibly due to idiopathic intracranial hypertension. Interval History: Patient had no acute events occur overnight. Patient remained afebrile (Tm - 99.7) with blood pressures ranging from 162-106/121-60. Objective Patient Vitals for the past 24 hrs: BP Temp Temp src Pulse Resp SpO2 09/26/23 0840 157/79 99.4 ??F (37.4 ??C) Oral 94 -- 98 % 09/26/23 0559 122/64 99.7 ??F (37.6 ??C) Axillary 60 15 100 % 09/26/23 0223 148/75 98.7 ??F (37.1 ??C) Oral 65 15 100 % 09/25/23 2057 144/83 99.1 ??F (37.3 ??C) Oral 75 16 100 % 09/25/23 1930 121/83 -- -- 86 20 99 % 09/25/23 1921 -- -- -- 92 22 100 % 09/25/23 1900 162/88 -- -- 93 25 95 % 09/25/23 1841 123/84 -- -- 79 -- 97 % 09/25/23 1830 88/65 -- -- 92 (!) 32 97 % 09/25/23 1800 126/99 -- -- (!) 125 18 (!) 88 % 09/25/23 1730 138/83 -- -- 80 29 99 % 09/25/23 1700 107/67 -- -- 75 22 94 % 09/25/23 1630 (!) 133/106 -- -- 80 13 97 % 09/25/23 1600 118/85 -- -- 81 17 98 % 09/25/23 1530 126/80 -- -- 93 (!) 34 97 % 09/25/23 1500 106/82 -- -- 84 19 95 % 09/25/23 1430 131/85 -- -- (!) 114 26 91 % 09/25/23 1400 -- -- -- 92 (!) 35 95 % 09/25/23 1330 141/92 -- -- 98 (!) 34 97 % 09/25/23 1300 (!) 139/102 -- -- 87 22 98 % 09/25/23 1230 135/83 -- -- 71 -- 96 % 09/25/23 1200 156/94 -- -- 87 26 97 % 09/25/23 1130 158/84 -- -- 89 16 99 % 09/25/23 1100 140/81 -- -- 89 14 98 % 09/25/23 1030 122/60 -- -- 75 -- 100 % 09/25/23 1000 127/79 -- -- 85 18 99 % Intake/Output Summary (Last 24 hours) at 09/26/2023 0920 Last data filed at 09/26/2023 0840 Gross per 24 hour Intake 0 ml Output -- Net 0 ml Exam: Cortical Function Mental Status Awake, alert, follows commands Orientation Person, place, time, and situation Language Fluency intact, comprehension intact, repetition intact Visual Smith Intact bilaterally to confrontation Neglect No visual neglect noted, no tactile neglect noted Cranial Nerves II Pupils 5 mm and bilaterally reactive to light. Fundoscopic exam not performed. VIII Hearing is intact bilaterally to finger rub. III/IV/ Extraocular muscles intact. No diplopia, ptosis, nystagmus or convergence abnormalities noted. IX/X Palate elevated symmetrically without phonation abnormalities noted. V Facial sensation decreased on left side to light touch and intact bilaterally. Corneal reflex notexamined. XI Head turning and shoulder shrug are intact.Weaker turning to left VII No facial palsy noted. XII Tongue is midline with normal movements and no atrophy noted. Motor Function Movement No abnormalities noted Bulk No abnormalities noted Tone No abnormalities noted Proximal Upper Distal Upper Proximal Lower Distal Lower Right 5/5 5/5 5/5 5/5 Left 5/5 5/5 5/5 5/5 Sensory Light Touch Decreased on left side but intact bilaterally Noxious Stimuli Decreased on left side but intact bilaterally Temperature Decreased left leg Pallesthesia Not tested Cerebellar: JOSH intact FNF intact -With eyes closed left finger had increased difficulty in touching nose Gait Deferred Imaging: CT Head Unremarkable 09/24/2023 CTA H & N Severe stenosis of the origin of right subclavian artery, atherosclerotic disease of the extracranial and intracranial arterial vessels MRI Brain no acute cerebral infarction. No acute intracranial abnormality. Other nonspecific findings possibly due to idiopathic intracranial hypertension. EKG/Tele Sinus rhythm with marked sinus arrythmia 09/25/2023, previous EKG showed normal sinus rhythm 09/18/2023 LDL 86 09/07/2023 WBC 5.1 09/25/23 8.1 09/24/23 Labs: Reviewed. Assessment Madison Weinberg is a 57 year old female presenting for slurred speech, decreased left side sensation, facial droop, concerning for TIA/stroke . Stroke Type: Ischemic Stroke Mechanism: TIA secondary to subclavian steal syndrome Plan -Ongoing discussion about method of intervention for subclavian stenosis, leaning towards bypass but will discuss further, likely won't take place 09/26/2023 -Cerebral Angiogram likely not necessary -Changing Clonazepam dosage to match home use, 0.5mg 3x daily Blood Pressure Goals: Stroke/TIA without tPA < 220/120 Core Measures tPA administration: no Anti-thrombotic: Heparin PT/OT Evaluation: PT and OT states patient may return home without need for skilled therapy services. Smoking cessation: Stopped smoking sometime before admisison Individual Modifiable Risk Factors Hypertension: no Hyperlipidemia: no Diabetes: no Atrial Fibrillation: no Tobacco: no, but used in the past Case findings discussed with Dr. Bear, Stroke Attending Hema Peres MS3 Medical Student ERY ASSISTANT * Joseluis Bear MD - 09/26/2023 8:30 AM CST I have seen and examined the patient with the resident and I agree with the findings and plan of care as documented by the resident. Date of Service: 09/27/2023 Joseluis Bear MD Multidisciplinary rounds were held at 9am and the patient's care and recovery plan were reviewed and developed with the assembled team. Madison Weinberg is a 57 year old female who presents transient left sided numbness in the setting of severe R subclavian stenosis. Vascular surgery consult of possible bypass. Dx angio today confirmed stenosis. Awaiting surgical decision and timing from vascular surgery. ?? Problem List Slurred speech (POA: Unknown) See Resident note for the remaining problem specific plan. 0 MEDICATIONS FOR CURRENT ENCOUNTER: ?? SCHEDULED MEDICATIONS: ?? 0.9% NaCl injection 3 mL, Intracatheter, q8h ?? [COMPLETED] traZODone (Desyrel) tablet 150 mg, Oral, Once ?? [] iopamidol (Isovue 370) 76 % contrast, Intravenous, Contrast - Once ?? CONTINUOUS MEDICATIONS: ?? heparin 100 units/mL in dextrose 5 % infusion, Intravenous, Continuous ?? PRN MEDICATIONS: ?? 0.9% NaCl injection 1-10 mL, Intracatheter, PRN ?? clonazePAM (KlonoPIN) tablet 0.5 mg, Oral, QDAY PRN Patient Vitals for the past 24 hrs: Temp Pulse Resp BP 09/26/23 0559 99.7 ??F (37.6 ??C) 60 15 122/64 09/26/23 0223 98.7 ??F (37.1 ??C) 65 15 148/75 09/25/23 2057 99.1 ??F (37.3 ??C) 75 16 144/83 09/25/23 1930 -- 86 20 121/83 09/25/23 1921 -- 92 22 -- 09/25/23 1900 -- 93 25 162/88 09/25/23 1841 -- 79 -- 123/84 09/25/23 1830 -- 92 (!) 32 88/65 09/25/23 1800 -- (!) 125 18 126/99 09/25/23 1730 -- 80 29 138/83 09/25/23 1700 -- 75 22 107/67 09/25/23 1630 -- 80 13 (!) 133/106 09/25/23 1600 -- 81 17 118/85 09/25/23 1530 -- 93 (!) 34 126/80 09/25/23 1500 -- 84 19 106/82 09/25/23 1430 -- (!) 114 26 131/85 09/25/23 1400 -- 92 (!) 35 -- 09/25/23 1330 -- 98 (!) 34 141/92 09/25/23 1300 -- 87 22 (!) 139/102 09/25/23 1230 -- 71 -- 135/83 09/25/23 1200 -- 87 26 156/94 09/25/23 1130 -- 89 16 158/84 09/25/23 1100 -- 89 14 140/81 09/25/23 1030 -- 75 -- 122/60 09/25/23 1000 -- 85 18 127/79 09/25/23 0900 -- 66 19 (!) 133/121 Recent Labs Component Name 09/24/23 0430 09/07/23 0638 09/06/23 0146 NA 141 140 144 CL 107 107 112* CO2 BUN 16 9 6* CREATININE 0.91 0.88 0.87 CALCIUM 9.4 9.1 8.5 PHOS - 3.6 2.9 Recent Labs Component Name 09/26/23 0648 09/25/23 0545 09/24/23 0433 WBC 5.5 5.8 8.1 RBC 3.98 3.94 4.15 HGB 12.1 11.8* 12.6 HCT 35.1 35.4 37.5 Recent Labs Component Name 09/06/23 0146 CHOL 144 TRIG 79 HDL 42 LDLCALC 86 No results for input(s): HGBA1C , A1C , TNAHPSILC1P , EAG in the last 32383 hours. Recent Labs Component Name 09/26/23 0648 09/25/23 0545 09/24/23432 PLTCOUNT [phone] ERY ASSISTANT * Mark Salmeron MD - 09/26/2023 6:03 AM CST Images from the original note were not included. VASCULAR SURGERY PROGRESS NOTE ADMIT: 09/24/2023 3:55 AM LOS: 0 days 09/26/2023 HISTORY: This is a 57 year old female with a PMHx s/f HTN, endometriosis requiring multiple abdominal surgeries, recently evaluated by neuro stroke and neuro IR for R subclavian steal syndrome in thesetting of recurrent TIAs who presented on 09/24/2023 for recurrent TIA symptoms. Vascular surgery consulted for possible open surgical options given the lesion's location at the bifurcation of the subclavian and R CCA and presence of soft plaque. Procedures: NA SUBJECTIVE: AFVSS Denies further symptoms Largely back at baseline OBJECTIVE: Blood pressure 122/64, pulse 60, temperature 99.7 ??F (37.6 ??C), temperature source Axillary, resp. rate 15, height 1.626 m (5' 4 ), weight 47.6 kg (105 lb), SpO2 100%. Temp: [98.7 ??F (37.1 ??C)-99.7 ??F (37.6 ??C)] 99.7 ??F (37.6 ??C) Pulse: [60-125] 60 Resp: [10-36] 15 BP: (88-162)/(55-121) 122/64 DIET: DIET NPO Except: SIPS WITH MEDS Ins/Outs: No intake/output data recorded. Scheduled Medications: 0.9% NaCl 3 mL Intracatheter q8h Continuous Medications: heparin, 0-40 Units/kg/hr, Last Rate: 15 Units/kg/hr (09/26/23 599) PRN Medications: 0.9% NaCl, 1-10 mL, PRN clonazePAM, 0.5 mg, QDAY PRN Physical Exam Gen: NAD and A&O x 3 ENT: Normocephalic and EOMI Resp: unlabored breathing on RA CV: RRR Abd: Soft, Non-distended and Non-peritoneal, no rebound/guarding MSK: 5/5 strength in all extremities, WWP Vasc: palpable radial pulses b/l, L>R Neuro: CN II-XII grossly intact Psych: Appropriate mood and affect RECENT LABS: Recent Labs Component Name 09/25/23 0545 09/24/23 0433 09/07/23 0638 WBC 5.8 8.1 5.4 HGB 11.8* 12.6 11.3* HCT 35.4 37.5 33.6* MCV 89.8 90.4 89.4 Recent Labs Component Name 09/24/23 0430 09/07/23 0638 09/06/23 0146 NA 141 140 144 POTASSIUM 3.9 3.1* 3.1* CL 107 107 112* CO2 BUN 16 9 6* CREATININE 0.91 0.88 0.87 CALCIUM 9.4 9.1 8.5 MAGNESIUM - 1.6 1.9 PHOS - 3.6 2.9 Recent Labs Component Name 09/24/23 0430 PROT 7.7 ALB 4.2 TBILI 0.3 AST 34 ALT 18 ALKPHOS 93 Recent Labs Component Name 09/26/23 0007 09/25/23 1848 09/25/23 1243 09/25/23 0545 09/24/23 2313 09/24/23 1421 09/24/23 0430 INR - - - 1.1 - 1.1 1.0 PTT 53.1* 84.5* 93.6* 72.7* - 29.5 - - = values in this interval not displayed. RECENT IMAGING: CTA: Reviewed. ASSESSMENT: Madison Weinberg is a 57 year old female with right subclavian artery stenosis and recurrent TIA symptoms. Vascular surgery is consulted for possible open surgical options given the lesion's location at the bifurcation of the subclavian and R CCA and presence of soft plaque. PLAN: - Appreciate neurology input that the symptoms are indeed from an ischemic or hemispheric event, asotherwise there is not a strong indication for intervention - If secondary to ischemic or hemispheric event, agree that given presence of soft plaque and location in the innominate/subclavian orifice that either an open or hybrid approach would be preferential to stenting alone and should be treated if agreed this is the cause of her R hemispheric TIAs. -stenting alone includes risk of jailing the common carotid artery (R), risk of possible distal embolization -further discussion of optimal approach and timing to be held with staff; will update plan and teamaccordingly -agree with heparin gtt - continue -agree no intervention needed at this time for R CCA, <50% stenosis - Rest of care per primary team, please call with any questions or concerns Patient will be staffed with attending, Dr. Salmeron. Note to be updated with any changes. Ramandeep Argueta MD 09/26/2023 6:06 AM Case discussed at length with Drs. Bear and Gene. Symptoms believed to be due to vertebrobasilar source. Reconstruction option would be right carotid to subclavian bypass likely with trans carotid stent extending into inominate to prevent any thromboembolization from subclavian lesion. Agree with full diagnostic angiographic study to assess vertebrobasilar anatomy. ERY ASSISTANT * Cresencio Lechuga RN - 09/25/2023 9:04 PM CST Problem: Balance Goal: LTG - Patient will maintain balance to allow for safe mobility Outcome: Progressing Goal: LTG - Patient will demonstrate Intervention to enhance balance for safe completion of daily activities Outcome: Progressing Problem: Pain/Discomfort Goal: Patient exhibits reduced pain/discomfort as evidenced by pain scores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 Joseluis Bear MD LAB - HEMATOLOGY ORD ERABLES Performing Organization Address [facility]/State/ZIP Co de Phone Number [facility] [address] [place] [address], [facility] [phone] * (ABNORMAL) PTT [facility] (09/24/2023 11:13 PM GALLERY ASSISTANT) APTT 58.7(H) 23.0 - 38.4 Seconds 09/24/2023 11:46 PM [facility] Comment:Suggested therapeuti c range for full dose I.V. unfractionated heparin therapy for venous thromboembolism is 71 to 109 seconds. Blood BLOOD SPECIMEN / Unknown Venipuncture / Unknown 09/24/2023 11:13 PM GALLERY ASSISTANT 09/24/2023 11:17 PM GALLERY ASSISTANT Clayton Frazier MD LAB - COAGULATION OR DERABLES [facility] [address] [place] [address], [facility] [phone] * MRI BRAIN WO CONTRAST (09/24/2023 3:47 PM GALLERY ASSISTANT) Anatomical Region Laterality Modality Head Magnetic Resonan ce 09/24/2023 3:51 PM GALLERY ASSISTANT Impressions 09/25/2023 8:24 AM GALLERY ASSISTANT IMPRESSION: 1. No evidence of acute cerebral [...] Briana Joseph MD on 09/25/2023 8:24 AM Narrative 09/25/2023 8:24 AM GALLERY ASSISTANT PROCEDURE: ??MRI BRAIN WO CONTRAST DATE/TIME OF EXAM: ??09/24/2023 3:47 PM CLINICAL INFORMATION: None relevant/not provided [...] is seen. Scattered cerebral hemispheric minimal white matter FLAIR hyperintensities are a nonspecific finding. The corpus [...] carotid arteries and basilar artery. The calvarium and visualized cervical spine appear normal. Prominent arachnoid granulations posterior to the right cerebellar hemisphere close to the trochlea. (Image 4, series 9). Procedure Note Briana Joseph MD - 09/25/2023 PROCEDURE: MRI BRAIN WO CONTRAST DATE/TIME OF EXAM: 09/24/2023 3:47 PM CLINICAL INFORMATION: None relevant/not provided if blank. Indication: R47.81: Slurred speech TECHNIQUE: MRI of the brain was performed without contrast according to standard protocol. COMPARISON: CT brain stroke dated 09/24/2023 at 4:06 AM, MRI brain09/07/2023 FINDINGS: No evidence of acute or chronic hemorrhage is identified. No evidence of acute cerebral infarction is seen. The ventricles are of normal size, shape, and morphology. No mass effect or midline shift is seen.Scattered cerebral hemispheric minimal white matter FLAIR hyperintensities are a nonspecific finding. The corpus callosum is normal. A partially emptysella is noted. Prominent CSF spaces noted in the bilateral Meckel's caves.There is also slight tortuous course of the bilateral optic nerves. Theposterior fossa, brainstem, and craniocervical junction appear normal. Slightlylower lying cerebellar tonsils, measuring 1 to 2 mm below the level of foramenof magnum. The visualized portions of the orbits, paranasal sinuses, and mastoids appear normal. Normal flow voids are demonstrated in the carotidarteries and basilar artery. The calvarium and visualized cervical spine appear normal. Prominent arachnoid granulations posterior to the rightcerebellar hemisphere close to the trochlea. (Image 4, series 9). IMPRESSION: 1. No evidence of acute cerebral infarction. No acute intracranial abnormality. 2. Partially empty sella, slightly tortuous course of optic nerves, prominent CSF spaces in the Meckel's caves noted. These findings are nonspecific however could be seen in the setting of idiopathicintracranial hypertension, clinical correlation is recommended. These findings were discussed with patient's care provider, Dr. Yeboah,by on 09/25/2023 8:18 AM with read back verification. I, Briana Joseph MD have personally reviewed and interpreted this examination/study. > Interpreting Provider: Briana Joseph MD on 09/25/2023 8:24 AM Joseluis Bear MD MR ORDERABLES * PT-INR [facility] (09/24/2023 2:21 PM GALLERY ASSISTANT) PT 13.6 12.1 - 14.8 Seconds 09/24/2023 3:27 PM [facility] INR 1.1 See Comment 09/24/2023 3:27 PM [facility] Comment:The suggested therap eutic range for standard coumadin (warfarin) therapy is an INR of 2.0-3.0. For high-risk patients (Mechanical Mitral Valve Prosthesis, etc.), the suggested prophylactic therapeutic range is an INR of 2.5-3.5. Blood BLOOD SPECIMEN / Unknown Venipuncture / Unknown 09/24/2023 2:21 PM GALLERY ASSISTANT 09/24/2023 2:25 PM GALLERY ASSISTANT Joseluis Bear MD LAB - COAGULATION OR DERABLES Performing Organization Address City/[facility]/ZIP Co de Phone Number [address] [address], [facility] [phone] * PTT [facility] (09/24/2023 2:21 PM GALLERY ASSISTANT) APTT 29.5 23.0 - 38.4 Seconds 09/24/2023 3:27 PM [facility] Comment:Suggested therapeuti c range for full dose I.V. unfractionated heparin therapy for venous thromboembolism is 71 to 109 seconds. Blood BLOOD SPECIMEN / Unknown Venipuncture / Unknown 09/24/2023 2:21 PM GALLERY ASSISTANT 09/24/2023 2:25 PM GALLERY ASSISTANT Joseluis Bear MD LAB - COAGULATION OR DERABLES Performing Organization Address City/[facility]/ZIP Co de Phone Number [address] [address], [facility] [phone] * VAS TRANSCRANIAL DOPPLER COMP (09/24/2023 2:15 PM GALLERY ASSISTANT) Anatomical Region Laterality Modality Head Intravascular Ul trasound 09/24/2023 12:3 6 PM GALLERY ASSISTANT Narrative Procedure Note Timi Mills MD - 10/10/2023 Joseluis Bear MD VASCULAR LAB ORDERAB LES * VAS CAROTID DUPLEX BILATERAL (09/24/2023 2:14 PM GALLERY ASSISTANT) Anatomical Region Laterality Modality Neck Intravascular Ul trasound 09/24/2023 12:5 3 PM GALLERY ASSISTANT Narrative Procedure Note Mark Salmeron MD - 09/24/2023 Joseluis Bear MD VASCULAR LAB ORDERAB LES * TROPONIN-I HIGH SENSITIVE REFLEX 1HOUR (09/24/2023 5:45 AM GALLERY ASSISTANT) [facility] Troponin I High Sensitive <3 <=14 ng/L 09/24/2023 7:39 AM GALLERY ASSISTANT [facility] Delta Troponin I HS 09/24/2023 7:39 AM [facility] Comment:Result exceeds linea rity range. A delta value is unable to be calculated. Blood BLOOD SPECIMEN / Unknown Venipuncture / Unknown 09/24/2023 5:45 AM GALLERY ASSISTANT 09/24/2023 6:44 AM GALLERY ASSISTANT Clayton Frazier MD LAB - CHEMISTRY JOSH CALVO [facility] [address] [place] [address], [facility] [phone] * EKG 12-LEAD (09/24/2023 5:21 AM GALLERY ASSISTANT) [facility] Ventricular Rate [address] [facility] MUSE Atrial Rate [address] [facility] MUSE P-R Interval [address] [facility] MUSE QRS Duration ms [address] [facility] MUSE Q-T Interval ms [address] [facility] MUSE QTC Calculation (Bezet) 487 ms [facility]USE Calculated P [place] 75 degrees [facility] Calculated R [place] 84 degrees [facility] Calculated T [place] 88 degrees [facility] Interpretation EKG SINUS RHYTHM WITH MARKED SINUS ARRYTHMIA NONSPECIFIC T WAVE ABNORMALITY PROLONGED QT ABNORMAL ECG WHEN COMPARED WITH ECG OF 18-SEP-2023 14:24, T WAVE INVERSION NOW EVIDENT IN ANTERIOR LEADS Confirmed by MICHAEL CRISTOBAL MD ([id number]) on 09/28/2023 9:49:30 AM [facility]USE 09/24/2023 5:21 AM GALLERY ASSISTANT 09/28/2023 9:49 AM GALLERY ASSISTANT Clayton Frazier MD ECG ORDERABLES [facility] MUSE * CT ANGIO BRAIN NECK STROKE (09/24/2023 4:35 AM GALLERY ASSISTANT) Anatomical Region Laterality Modality Head Computed Tomogra phy 09/24/2023 4:47 AM GALLERY ASSISTANT Impressions 09/24/2023 10:43 AM GALLERY ASSISTANT IMPRESSION: 1.No significant change since prior. 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 3.Severe stenosis of the origin of the right subclavian artery is again noted. 4.Otherwise, no large arterial occlusions or significant stenoses identified in the head or neck. Viz.AI was used for large vessel occlusion detection. > Dictated by Dutch Morales DO (vice president of product marketing). I, Lay Chaudhry MD have personally reviewed and interpreted this examination/study. > Interpreting Provider: Lay Chaudhry MD on 09/24/2023 10:43 AM Narrative 09/24/2023 10:43 AM GALLERY ASSISTANT PROCEDURE: ??CT ANGIO BRAIN NECK STROKE, DATE/TIME OF EXAM: ??09/24/2023 5:19 AM, LOCATION ??[facility] INDICATION: Code Stroke ADDITIONAL CLINICAL INFORMATION: Ordering Provider Reason For Exam: ??Code stroke. Technologist Note: ??None. Additional: ??None. EXAMINATION: 1. Computed tomographic (CT) angiography of the head without and with contrast 2. CT angiography of the neck with contrast CONTRAST: ??IOPAMIDOL 76 % IV SOLN:75 mL TECHNIQUE: CT of the head was performed without contrast according to standard protocol. Then CT angiography of the head and neck was obtained after the uneventful administration of 75 mL Isovue-370 intravenous contrast. Three dimensional postprocessing was performed by the technologist and sent to the workstation for review. Stenosis measurements are based on NASCET criteria. ??CT dose reduction technique was used, including Automated Exposure Control. COMPARISON: CT angiography of the head and neck from 09/06/2023. FINDINGS: Non-angiographic findings: Please refer to separately dictated noncontrast head CT for the non-angiographic findings. Redemonstration of scarring in the left [...] or hemodynamically significant intracranial stenoses are identified. Procedure Note Lay Chaudhry MD - 09/24/2023 PROCEDURE: CT ANGIO BRAIN NECK STROKE, DATE/TIME OF EXAM: :19 AM, LOCATION [facility] INDICATION: Code Stroke ADDITIONAL CLINICAL INFORMATION: Ordering [...] and sent to the workstation for review. Stenosismeasurements are based on NASCET criteria. CT dose reduction technique was used, including Automated Exposure Control. COMPARISON: CT angiography of the head and neck from 09/06/2023. FINDINGS: Non-angiographic findings: Please refer to separately dictated noncontrast head CT for the non-angiographic findings. Redemonstration of scarring in the left lung apex and an indeterminate linear enhancing vascular structure, in theleft upper lobe. Angiographic findings: There is atherosclerotic disease of the aortic arch. The configurationof the brachiocephalic vessels is typical. There is atherosclerotic calcification of the innominate and subclavian arteries. Redemonstrationof severe stenosis of the origin of the right subclavian artery. There is atherosclerotic disease of the right carotid bifurcation and origin ofthe right internal carotid artery with less than 50 percent focal stenosisby NASCET criteria. The right common and internal carotid arteriesotherwise appear normal. There is atherosclerotic disease of the left carotid bifurcation and origin of the left internal carotid artery with lessthan 50 percent focal stenosis by NASCET criteria. The left common andinternal carotid arteries otherwise appear normal. The left ventricular isdominant. The right vertebral artery is smaller in caliber. There isatherosclerotic disease involving the cervical vertebral arteries without significantfocal stenosis. There is atherosclerotic disease involving the distal internal carotid arteries without significant focal stenosis. The anterior and middle cerebral arteries appear normal. The distal vertebral arteries appear normal. The basilar artery and posterior cerebral arteries appear normal with origin of the right posterior cerebral artery. No aneurysms, vascular occlusions, or hemodynamically significant intracranialstenoses are identified. IMPRESSION: 1.No significant change since prior. 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 3.Severe stenosis of the origin of the right subclavian artery is again noted. 4.Otherwise, no large arterial occlusions or significant stenoses identified in the head or neck. Viz.AI was used for large vessel occlusion detection. > Dictated by Dutch Morales DO (vice president of product marketing). I, Lay Chaudhry MD have personally reviewed and interpretedthis examination/study. > Interpreting Provider: Lay Chaudhry MD on 09/24/2023 10:43 AM Clayton Frazier MD CT ORDERABLES * CBC W AUTO DIFFERENTIAL (09/24/2023 4:33 AM [facility]) WBC 8.1 4.0 - 10.7 x10E9/L 09/24/2023 5:01 AM [facility] RBC Count 4.15 3.90 - 5.20 x10E12/L 09/24/2023 5:01 AM [facility] Hemoglobin 12.6 11.9 - 15.8 g/dL 09/24/2023 5:01 AM [facility] Hematocrit 37.5 34.8 - 46.1 % 09/24/2023 5:01 AM [facility] MCV 90.4 80.0 - 98.0 fL 09/24/2023 5:01 AM [facility] MCH 30.4 26.7 - 33.6 pg 09/24/2023 5:01 AM [facility] MCHC 33.6 31.7 - 36.3 g/dL 09/24/2023 5:01 AM [facility] RDW-CV 12.8 11.3 - 14.8 % 09/24/2023 5:01 AM [facility] Platelet Count 404 150 - 420 x10E9/L 09/24/2023 5:01 AM [facility] MPV 10.1 7.8 - 11.4 fL 09/24/2023 5:01 AM [facility] Neutrophil % 62.5 41.0 - 74.0 % 09/24/2023 5:01 AM [facility] Lymphocyte % 28.2 17.0 - 47.0 % 09/24/2023 5:01 AM [facility] Monocyte % 6.3 3.0 - 11.0 % 09/24/2023 5:01 AM [facility] Eosinophil % 2.1 0.0 - 7.0 % 09/24/2023 5:01 AM [facility] Basophil % 0.7 0.0 - 1.6 % 09/24/2023 5:01 AM [facility] Immature Granulocytes % 0.2 0.0 - 1.0 % 09/24/2023 5:01 AM [facility] Neutrophil Absolute 5.02 1.60 - 7.50 x10E9/L 09/24/2023 5:01 AM [facility] Lymphocyte Absolute 2.27 1.00 - 4.40 x10E9/L 09/24/2023 5:01 AM [facility] Monocyte Absolute 0.51 0.15 - 1.00 x10E9/L 09/24/2023 5:01 AM [facility] Eosinophil Absolute 0.17 0.00 - 0.60 x10E9/L 09/24/2023 5:01 AM [facility] Basophil Absolute 0.06 0.00 - 0.13 x10E9/L 09/24/2023 5:01 AM [facility] Blood BLOOD SPECIMEN / Unknown Venipuncture / Unknown 09/24/2023 4:33 AM GALLERY ASSISTANT 09/24/2023 4:37 AM GALLERY ASSISTANT Clayton Frazier MD LAB - HEMATOLOGY ORD ERABLES [address] [address], [facility] [phone] * TROPONIN-I HIGH SENSITIVE BASELINE + 1HR (09/24/2023 4:30 AM GALLERY ASSISTANT) Pathologist [facility] Troponin I High Sensitive <3 <=14 ng/L 09/24/2023 5:16 AM [facility] Blood BLOOD SPECIMEN / Unknown Venipuncture / Unknown 09/24/2023 4:30 AM GALLERY ASSISTANT 09/24/2023 4:37 AM GALLERY ASSISTANT Clayton Frazier MD LAB - CHEMISTRY ORDE UMESH [address] [address], [place] [phone] * TYPE + SCREEN PANEL (09/24/2023 4:30 AM GALLERY ASSISTANT) [facility] Antibody Screen NEG 5:14 AM [facility] ABO Rh A NEG 09/24/2023 5:14 AM [facility] Blood Bank BLOOD SPECIMEN / Unknown Venipuncture / Unknown 09/24/2023 4:30 AM GALLERY ASSISTANT 09/24/2023 4:37 AM [facility] Clayton Frazier MD LAB - BLOOD BANK ORD ERABLES [facility] [address] [place] [address], [facility] [phone] * PT-INR [facility] (09/24/2023 4:30 AM GALLERY ASSISTANT) [facility] PT 13.0 12.1 - 14.8 Seconds 09/24/2023 4:58 AM [facility] INR 1.0 See Comment 09/24/2023 4:58 AM [facility] Comment:The suggested therap eutic range for standard coumadin (warfarin) therapy is an INR of 2.0-3.0. For high-risk patients (Mechanical Mitral Valve Prosthesis, etc.), the suggested prophylactic therapeutic range is an INR of 2.5-3.5. Blood BLOOD SPECIMEN / Unknown Venipuncture / Unknown 09/24/2023 4:30 AM GALLERY ASSISTANT 09/24/2023 4:37 AM [facility] Clayton Frazier MD LAB - COAGULATION OR DERABLES [facility] [address] [place] [address], [facility] [phone] * (ABNORMAL) COMPREHENSIVE METABOLIC PANEL (09/24/2023 4:30 AM [facility]) [facility] BUN 16 7 - 26 mg/dL 09/24/2023 5:10 AM [facility] Creatinine 0.91 0.56 - 0.96 mg/dL 09/24/2023 5:10 AM [facility] Sodium 141 136 - 145 mmol/L 09/24/2023 5:10 AM [facility] Potassium 3.9 3.5 - 4.5 mmol/L 09/24/2023 5:10 AM [facility] Comment:Hemolysis detected i n this specimen. Hemolysis may cause false elevations in potassium leading to pseudohyperkalemia or masked hypokalemia. Recommend repeat testing if clinically indicated. Chloride 107 98 - 107 mmol/L 09/24/2023 5:10 AM [facility] CO2 24 22 - 29 mmol/L 09/24/2023 5:10 AM [facility] Glucose 77 70 - 115 mg/dL 09/24/2023 5:10 AM [facility] Calcium 9.4 8.4 - 10.2 mg/dL 09/24/2023 5:10 AM [facility] Protein Total 7.7 6.0 - 8.3 g/dL 09/24/2023 5:10 AM [facility] Comment:Hemolysis detected i n this specimen. Hemolysis is known to cause elevations in this analyte. Caution should be exercised in the interpretation of this result. Recommend repeat testing if clinically indicated. Albumin 4.2 3.4 - 5.0 g/dL 09/24/2023 5:10 AM [facility] Bilirubin Total 0.3 0.2 - 1.2 mg/dL 09/24/2023 5:10 AM [facility] Alkaline Phosphatase 93 40 - 150 U/L 09/24/2023 5:10 AM [facility] ALT 18 5 - 55 U/L 09/24/2023 5:10 AM [facility] AST 34 5 - 34 U/L 09/24/2023 5:10 AM [facility] Comment:Hemolysis detected i n this specimen. Hemolysis is known to cause elevations in this analyte. Caution should be exercised in the interpretation of this result. Recommend repeat testing if clinically indicated. Anion Gap 10 6 - 16 09/24/2023 5:10 AM [facility] BUN/Creatinine Ratio 18 7 - 23 09/12 5:10 AM [facility] Osmolality Calculated 292 275 - 295 mOsm/kg 09/24/2023 5:10 AM [facility] Albumin/Globulin Ratio 1.2 1.1 - 2.3 5:10 AM [facility] eGFR by CKD-EPI 74(L) >=90 mL/min/1. 73 m2 09/24/2023 5:10 AM [facility] Blood BLOOD SPECIMEN / Unknown Venipuncture / Unknown 09/24/2023 4:30 AM GALLERY ASSISTANT 09/24/2023 4:37 AM GALLERY ASSISTANT Clayton Frazier MD LAB - CHEMISTRY JOSH CALVO [facility] [address] [place] [address], [facility] [phone] * INR WHOLE BLOOD - POINT OF CARE (IP) STROKE (09/24/2023 4:28 AM GALLERY ASSISTANT) INR 1.0 0.9 - 1.2 09/25/2023 11:05 AM [facility] Device [id number] 09/25/2023 11:05 AM [facility] [employer] [place] ID [id number] 09/25/2023 11:05 AM [facility] Blood BLOOD SPECIMEN / Unknown 09/24/2023 4:28 AM GALLERY ASSISTANT 09/25/2023 11:05 AM GALLERY ASSISTANT Provider Unknown LAB - POINT OF CARE ORDERABLES [facility] [address] [place] [address], [place] [phone] * (ABNORMAL) CREATININE - POCT INTERFACED (09/24/2023 4:27 AM GALLERY ASSISTANT) Creatinine POCT 0.78 0.30 - 1.30 mg/dL 09/25/2023 4:00 PM [facility] eGFR 89(L) >90 mL/min/1.7 3 m2 09/25/2023 4:00 PM [facility] Blood BLOOD SPECIMEN / Unknown 09/24/2023 4:27 AM GALLERY ASSISTANT 09/25/2023 4:00 PM GALLERY ASSISTANT Provider Unknown LAB - POINT OF CARE ORDERABLES [facility] [address] [place] [address], [facility] [phone] * GLUCOSE - POINT OF CARE (09/24/2023 4:14 AM GALLERY ASSISTANT) Glucose WB/POC 105 70 - 115 mg/dL 09/24/2023 4:18 AM GALLERY ASSISTANT [facility] Specimen Type Cap Fingerstick 2023 4:18 AM GALLERY ASSISTANT [facility] Blood BLOOD SPECIMEN / Unknown 09/24/2023 4:14 AM GALLERY ASSISTANT 09/24/2023 4:18 AM GALLERY ASSISTANT Provider Unknown LAB - POINT OF CARE ORDERABLES Performing Organization Address [facility] Co de Phone Number [facility] [address] [place] [address], [facility] [phone] * CT BRAIN - Stroke (09/24/2023 4:07 AM GALLERY ASSISTANT) Anatomical Region Laterality Modality Head Computed Tomogra phy 09/24/2023 7:04 AM GALLERY ASSISTANT Impressions 09/24/2023 10:33 AM GALLERY ASSISTANT IMPRESSION: 1.No acute intracranial hemorrhage. 2.Please note that CT is insensitive to nonhemorrhagic strokes and MRI should be considered if there is clinical concern for acute infarction. 3.Fundus examination is recommended to exclude papilledema and/or the possibility of idiopathic intracranial hypertension (IIH). > Dictated by Theo Hebert DO (vice president safety) Lay Casillas MD have personally reviewed and interpreted this examination/study. > Interpreting Provider: Lay Chaudhry MD on 09/24/2023 10:33 AM Narrative 09/24/2023 10:33 AM GALLERY ASSISTANT PROCEDURE: ??CT BRAIN STROKE, DATE/TIME OF EXAM: ??09/24/2023 4:14 AM, LOCATION ??[facility] INDICATION: Code Stroke EXAMINATION: Computed tomography (CT) of the head without contrast ADDITIONAL CLINICAL INFORMATION: Ordering Provider Reason For Exam: ??Code stroke Technologist Note: ??None. Additional: ??57 year old female with medical hx as listed below presented for blurry vision, L sided numbness and weakness. LKW is 03.00. In [facility] ED initial NIHSS is 1 for L sided numbness. CTH and CTA H+N was unrevealing.Patient presented with similar symptoms on 09/06/2023. That time she had transit left hemiparesis after strenuous physical activity.MRIwasnegative for acute pathologies. CTA showed a severe right subclavian calcified stenosis. Clinical picturewas concerning forsubclavian steal syndrome.Cerebral angiogram planned. Started onaspirin + plavix. Today neurologic exam significant for L sided mild weakness and decreased sensation. Findings concerning TIA vssubclavian steal syndromevs infarct. ?? TECHNIQUE: CT of the head was performed [...] clear. No soft tissue abnormality is identified. Procedure Note Lay Chaudhry MD - 09/24/2023 PROCEDURE: CT BRAIN STROKE, DATE/TIME OF EXAM: 09/24/2023 4:14 AM, LOCATION [facility] INDICATION: Code Stroke EXAMINATION: Computed tomography (CT) of the head without contrast ADDITIONAL CLINICAL INFORMATION: Ordering Provider Reason For Exam: Code stroke Technologist Note: None. Additional: 57 year old female with medical hx as listed belowpresented for blurry vision, L sided numbness and weakness. LKW is 03.00. In [facility] initial NIHSS is 1 for L sided numbness. CTH and CTA H+N was unrevealing.Patient presented with similar symptoms on 09/06/2023. Thattime she had transit left hemiparesis after strenuous physical activity.MRIwasnegative for acute pathologies. CTA showed a severe right subclavian calcified stenosis. Clinical picturewas concerningforsubclavian steal syndrome.Cerebral angiogram planned. Started onaspirin + plavix. Today neurologic exam significant for L sided mild weakness anddecreased sensation. Findings concerning TIA vssubclavian steal syndromevsinfarct. TECHNIQUE: CT of the head was performed without contrast according to standard protocol. CT dose reduction technique was used, including Automated Exposure Control. COMPARISON: MRI of the brain from 09/07/2023. CT of the head and CT angiogram of the neck from 09/06/2023. FINDINGS: No acute intra- or extra-axial fluid collections are identified. Thereis mild cerebral volume loss with associated ex vacuo ventriculardilatation. The basilar cisterns are patent. No mass effect or midline shift isseen. The sharma-white matter differentiation is obscured by motion artifact.There is suspected faint vascular calcification of the carotid siphons. Noacute calvarial fracture is identified. There is partial empty sella.Borderline low-lying cerebellar tonsils just above the level of the foramen magnum. The optic nerve sheaths is are tortuous. The orbits appear normal. Thereis mild paranasal sinus disease. The mastoid air cells are grossly clear.No soft tissue abnormality is identified. IMPRESSION: 1.No acute intracranial hemorrhage. 2.Please note that CT is insensitive to nonhemorrhagic strokes and MRI should be considered if there is clinical concern for acute infarction. 3.Fundus examination is recommended to exclude papilledema and/or the possibility of idiopathic intracranial hypertension (IIH). > Dictated by Theo Hebert DO (vice president safety) ILay MD have personally reviewed and interpretedthis examination/study. > Interpreting Provider: Lay Chaudhry MD on 09/24/2023 10:33 AM Clayton Frazier MD CT ORDERABLES documented in this encounter Visit Diagnoses Diagnosis Slurred speech Other speech disturbance Slurred speech Other speech disturbance Subclavian artery stenosis, right (HCC) Atherosclerosis of other specified arteries Numbness in left leg Disturbance of skin sensation Left arm numbness Disturbance of skin sensation Weakness of left side of body Muscle weakness (generalized) documented in this encounter Administered Medications Inactive Administered Medications - up to 3 most recent administrations Medication Order MAR Action Action Date Dose Rate Site 0.9% NaCl infusion Intravenous, CONTINUOUS PRN, Starting on Sat09/27/23 at 1300, Until Sat09/27/23 at 1300, Intra-op $ New Bag/Syringe 09/27/2023 1:00 PM GALLERY ASSISTANT 250 mL 45 mL/hr 0.9% NaCl injection 1-10 mL 1-10 mL, Intracatheter, PRN, Other, peripheral line flush, Starting on Sat09/24/23 at 0356, Until Sat09/27/23 at 2032, Flush peripheral IV catheter with 1-10 mL of normal saline before and after medications and prn to clear blood from the line or to verify patency. 0.9% NaCl injection 3 mL 3 mL, Intracatheter, EVERY 8 HOURS, First dose on Sat09/24/23 at 0600, Until Discontinued, Flush peripheral IV catheter with 3 mL of normal saline every 8 hours. $ Given 09/27/2023 3:47 PM GALLERY ASSISTANT 3 mL $ Given 09/27/2023 6:23 AM GALLERY ASSISTANT 3 mL $ Given 09/26/2023 8:38 PM GALLERY ASSISTANT 3 mL acetaminophen (Tylenol) tablet 650 mg 650 mg, Oral, EVERY 4 HOURS PRN, Mild Pain, Fever, Headache, Starting on Sat09/26/23 at 2104, Until Sat09/27/23 at 2032, Patient preference for lesser PRN pain meds may be honored when the patient requests a less strong medication, a lower dose, or a less intrusive route of administration when the lesser drug, dose and route have been ordered for the patient. This patient request must be documented in the MAR. $ Given 09/26/2023 9:47 PM GALLERY ASSISTANT 650 mg aspirin chew tablet 81 mg 81 mg, Oral, DAILY, First dose on Sat09/24/23 at 1015, Until Discontinued $ Given 09/24/2023 10:50 AM GALLERY ASSISTANT 81 mg aspirin chew tablet 81 mg 81 mg, Oral, DAILY, First dose on Sat09/27/23 at 1100, Until Discontinued $ Given 09/27/2023 10:59 AM GALLERY ASSISTANT 81 mg clonazePAM (KlonoPIN) tablet 0.5 mg 0.5 mg, Oral, DAILY PRN, Anxiety, Starting on Sat09/24/23 at 1634, Until Sat09/26/23 at 1049 $ Given 09/25/2023 12:46 PM GALLERY ASSISTANT 0.5 mg $ Given 09/25/2023 4:09 AM GALLERY ASSISTANT 0.5 mg $ Given 09/24/2023 4:38 PM GALLERY ASSISTANT 0.5 mg clonazePAM (KlonoPIN) tablet 0.5 mg 0.5 mg, Oral, 3 TIMES DAILY, First dose (after last modification) on Sat09/26/23 at 1400, Until Discontinued $ Given 09/27/2023 3:47 PM GALLERY ASSISTANT 0.5 mg $ Given 09/27/2023 8:36 AM GALLERY ASSISTANT 0.5 mg $ Given 09/26/2023 8:38 PM GALLERY ASSISTANT 0.5 mg clopidogrel (plaVIX) tablet 75 mg 75 mg, Oral, DAILY, First dose on Sat09/24/23 at 1015, Until Discontinued $ Given 09/24/2023 10:50 AM GALLERY ASSISTANT 75 mg clopidogrel (plaVIX) tablet 75 mg 75 mg, Oral, DAILY, First dose on Sat09/27/23 at 1100, Until Discontinued $ Given 09/27/2023 10:59 AM GALLERY ASSISTANT 75 mg enoxaparin (Lovenox) injection 40 mg 40 mg, Subcutaneous, DAILY, First dose on Sat09/27/23 at 1130, Until Discontinued, (for prefilled syringes) do not expel air bubble from the syringe prior to the injection Remind Patient to not rub injection site. Could cause hematoma. $ Given 09/27/2023 11:04 AM GALLERY ASSISTANT 40 mg Abd Right Lower Quadrant fentaNYL (PF) (Sublimaze) injection ONCE PRN, Starting on Sat09/27/23 at 1303, Until Sat09/27/23 at 1303, Intra-op $ Given 09/27/2023 1:03 PM GALLERY ASSISTANT 50 mcg fentaNYL (PF) (Sublimaze) injection ONCE PRN, Starting on Sat09/27/23 at 1321, Until Sat09/27/23 at 1321, Intra-op $ Given 09/27/2023 1:21 PM GALLERY ASSISTANT 50 mcg fentaNYL (PF) (Sublimaze) injection ONCE PRN, Starting on Sat09/27/23 at 1308, Until Sat09/27/23 at 1308, Intra-op $ Given 09/27/2023 1:08 PM GALLERY ASSISTANT 50 mcg fentaNYL (PF) (Sublimaze) injection ONCE PRN, Starting on Sat09/27/23 at 1350, Until Sat09/27/23 at 1350, Intra-op $ Given 09/27/2023 1:50 PM GALLERY ASSISTANT 50 mcg heparin 100 units/mL in dextrose 5 % infusion 0-40 Units/kg/hr ? 47.6 kg (0-19.04 mL/hr, rounded to 0-19 mL/hr), Intravenous, CONTINUOUS, Starting on Sat09/24/23 at 1215, Until Sat09/27/23 at 0800, Use the heparin calculator (scroll during admin) for starting rate, boluses or titrations, and weight selection. Use $New Bag/Syringe action when hanging a new bag, no need to use the calculator. Low Intensity Nomogram - aPTT goal range 69-90 seconds Contact provider if patient requires doses outside the prescribed range. Order timed PTT to be drawn 6 hours after infusion initiated After two consecutive aPTTs drawn 6 hours apart are therapeutic, order aPTT to be drawn the following a.m. and daily, Include Heparin Boluses? No Rate Change 09/26/2023 5:21 PM GALLERY ASSISTANT 12 Units/kg/hr 5.7 mL/hr Rate Change 09/26/2023 11:27 AM GALLERY ASSISTANT 14 Units/kg/hr 6.7 mL/ hr $ New Bag/Syringe 09/26/2023 3:45 AM GALLERY ASSISTANT 15 Units/kg/hr 7. 1 mL/hr heparinized saline 2 units/mL infusion Other, CONTINUOUS PRN, Starting on Sat09/27/23 at 1300, Until Sat09/27/23 at 1300, Intra-op $ New Bag/Syringe 09/27/2023 1:00 PM GALLERY ASSISTANT 2,500 mL iopamidol (Isovue 300) 61 % contrast ONCE PRN, Starting on Sat09/27/23 at 1343, Until Sat09/27/23 at 1343, Intra-op $ Given 09/27/2023 1:43 PM GALLERY ASSISTANT 90 mL iopamidol (Isovue 370) 76 % contrast Intravenous, CONTRAST ONCE, Starting on Sat09/24/23 at 0518, Until Sat09/26/23 at 0517 $ Given - Contrast 09/24/2023 5:19 AM GALLERY ASSISTANT 75 mL lactated ringers infusion at 20 mL/hr, Intravenous, PRE-OP CONTINUOUS, Starting on Delma 09/26/23 at 0800, Until Sat09/27/23 at 1528, Pre-op $ New Bag/Syringe 09/26/2023 11:42 AM GALLERY ASSISTANT 20 mL/hr midazolam (Versed) injection Intravenous, ONCE PRN, Starting on Sat09/27/23 at 1303, Until Sat09/27/23 at 1303, Intra-op $ Given 09/27/2023 1:03 PM GALLERY ASSISTANT 1 mg midazolam (Versed) injection Intravenous, ONCE PRN, Starting on Sat09/27/23 at 1321, Until Sat09/27/23 at 1321, Intra-op $ Given 09/27/2023 1:21 PM GALLERY ASSISTANT 1 mg midazolam (Versed) injection Intravenous, ONCE PRN, Starting on Sat09/27/23 at 1308, Until Sat09/27/23 at 1308, Intra-op $ Given 09/27/2023 1:08 PM GALLERY ASSISTANT 1 mg traZODone (Desyrel) tablet 150 mg 150 mg, Oral, ONCE, 1 dose, On Delma 09/26/23 at 0245 $ Given 09/26/2023 2:26 AM GALLERY ASSISTANT 150 mg traZODone (Desyrel) tablet 150 mg 150 mg, Oral, AT BEDTIME PRN, Insomnia, Starting on Sat09/26/23 at 2105, Until Sat09/27/23 at 2033 $ Given 09/26/2023 9:47 PM GALLERY ASSISTANT 150 mg documented in this encounter Active and Recently Administered Medications Times are shown in GALLERY ASSISTANT. Scheduled Medication Order 09/25/2023 09/26/2023 09/27/2023 0.9% NaCl injection 3 mL(Linked Group 1) 3 mL, Intracatheter, EVERY 8 HOURS, First dose on Sat09/24/23 at 0600, Until Discontinued, Flush peripheral IV catheter with 3 mL of normal saline every 8 hours. 0541 ($ Given - Provider: Jennifer Domínguez Graduate Nurse)1355 ($ Given - Provider: Delmis Forte RN) 0054 ($ Given - Provider: Cresencio Lechuga RN)0557 ($ Given - Provider: Cresencio Lechuga RN)1518 ($ Given - Provider: Ragini Song, KAT)2038 ($ Given - Provider: Quentin Celestin, RN) 0623 ($ Given - Provider: Quentin Celestin, RN)1547 ($ Given - Provider: Ragini Song, KAT) aspirin chew tablet 81 mg 81 mg, Oral, DAILY, First dose on Sat09/27/23 at 1100, Until Discontinued 1059 ($ Given - Provider: Ragini Song, KAT) clonazePAM (KlonoPIN) tablet 0.5 mg 0.5 mg, Oral, 3 TIMES DAILY, First dose (after last modification) on Delma 09/26/23 at 1400, Until Discontinued 1518 ($ Given - Provider: Ragini Song RN)2038 ($ Given - Provider: Quentin Celestin RN) 0836 ($ Given - Provider: Ragini Song, KAT)1547 ($ Given - Provider: Ragini Song, KAT) clopidogrel (plaVIX) tablet 75 mg 75 mg, Oral, DAILY, First dose on Sat09/27/23 at 1100, Until Discontinued 1059 ($ Given - Provider: Ragini Song RN) enoxaparin (Lovenox) injection 40 mg 40 mg, Subcutaneous, DAILY, First dose on Sat09/27/23 at 1130, Until Discontinued, (for prefilled syringes) do not expel air bubble from the syringe prior to the injection Remind Patient to not rub injection site. Could cause hematoma. 1104 ($ Given - Provider: Ragini Song RN) traZODone (Desyrel) tablet 150 mg (COMPLETED) 150 mg, Oral, ONCE, 1 dose, On Delma 09/26/23 at 0245 0226 ($ Given - Provider: Cresencio Lechuga RN) Continuous Medication Order 09/25/2023 09/26/2023 09/27/2023 heparin 100 units/mL in dextrose 5 % infusion () 0-40 Units/kg/hr ? 47.6 kg (0-19.04 mL/hr, rounded to 0-19 mL/hr), Intravenous, CONTINUOUS, Starting on Sat09/24/23 at 1215, Until Sat09/27/23 at 0800, Use the heparin calculator (scroll during admin) for starting rate, boluses or titrations, and weight selection. Use $New Bag/Syringe action when hanging a new bag, no need to use the calculator. Low Intensity Nomogram - aPTT goal range 69-90 seconds Contact provider if patient requires doses outside the prescribed range. Order timed PTT to be drawn 6 hours after infusion initiated After two consecutive aPTTs drawn 6 hours apart are therapeutic, order aPTT to be drawn the following a.m. and daily, Include Heparin Boluses? No 0645 (Rate Change - Provider: Naz Minor RN)1355 ($ New Bag/Syringe - Provider: Delmis Forte RN) 0054 ($ New Bag/Syringe - Provider: Cresencio Lechuga, KAT)0345 ($ New Bag/Syringe - Provider: Cresencio Lechuga RN)1127 (Rate Change - Provider: Ragini Song RN)1721 (Rate Change - Provider: Ragini Song RN) 0835 (Stopped - Provider: Ragini Song RN) lactated ringers infusion (CANCELED) at 20 mL/hr, Intravenous, PRE-OP CONTINUOUS, Starting on Delma 09/26/23 at 0800, Until Sat09/27/23 at 1528, Pre-op 1142 ($ New Bag/Syringe - Provider: Ragini Song RN) PRN Medication Order 09/25/2023 09/26/2023 09/27/2023 0.9% NaCl infusion (COMPLETED) Intravenous, CONTINUOUS PRN, Starting on Sat09/27/23 at 1300, Until Sat09/27/23 at 1300, Intra-op 1300 ($ New Bag/Syringe - Provider: Radha Landers RN) 0.9% NaCl injection 1-10 mL(Linked Group 1) 1-10 mL, Intracatheter, PRN, Other, peripheral line flush, Starting on Sat09/24/23 at 0356, Until Sat09/27/23 at 2032, Flush peripheral IV catheter with 1-10 mL of normal saline before and after medications and prn to clear blood from the line or to verify patency. acetaminophen (Tylenol) tablet 650 mg 650 mg, Oral, EVERY 4 HOURS PRN, Mild Pain, Fever, Headache, Starting on Delma 09/26/23 at 2104, Until Sat09/27/23 at 2032, Patient preference for lesser PRN pain meds may be honored when the patient requests a less strong medication, a lower dose, or a less intrusive route of administration when the lesser drug, dose and route have been ordered for the patient. This patient request must be documented in the OCT. 2146 ($ Given - Provider: Quentin Celestin, RN) clonazePAM (KlonoPIN) tablet 0.5 mg (CANCELED) 0.5 mg, Oral, DAILY PRN, Anxiety, Starting on Sat09/24/23 at 1634, Until Sat09/26/23 at 1049 0409 ($ Given - Provider: Naz Minor, RN)1246 ($ Given - Provider: Delmis Forte RN) fentaNYL (PF) (Sublimaze) injection (COMPLETED) ONCE PRN, Starting on Sat09/27/23 at 1303, Until Sat09/27/23 at 1303, Intra-op 1303 ($ Given - Provider: Radha Landers RN) fentaNYL (PF) (Sublimaze) injection (COMPLETED) ONCE PRN, Starting on Sat09/27/23 at 1321, Until Sat09/27/23 at 1321, Intra-op 1321 ($ Given - Provider: Radha Landers RN) fentaNYL (PF) (Sublimaze) injection (COMPLETED) ONCE PRN, Starting on Sat09/27/23 at 1308, Until Sat09/27/23 at 1308, Intra-op 1308 ($ Given - Provider: Radha Landers RN) fentaNYL (PF) (Sublimaze) injection (COMPLETED) ONCE PRN, Starting on Sat09/27/23 at 1350, Until Sat09/27/23 at 1350, Intra-op 1350 ($ Given - Provider: Radha Landers RN) heparinized saline 2 units/mL infusion (COMPLETED) Other, CONTINUOUS PRN, Starting on Sat09/27/23 at 1300, Until Sat09/27/23 at 1300, Intra-op 1300 ($ New Bag/Syringe - Provider: Timi Mills MD - Comment: to table) iopamidol (Isovue 300) 61 % contrast (COMPLETED) ONCE PRN, Starting on Sat09/27/23 at 1343, Until Sat09/27/23 at 1343, Intra-op 1343 ($ Given - Provider: Manuel Peña MD) midazolam (Versed) injection (COMPLETED) Intravenous, ONCE PRN, Starting on Sat09/27/23 at 1303, Until Sat09/27/23 at 1303, Intra-op 1303 ($ Given - Provider: Radha Landers RN) midazolam (Versed) injection (COMPLETED) Intravenous, ONCE PRN, Starting on Sat09/27/23 at 1321, Until Sat09/27/23 at 1321, Intra-op 1321 ($ Given - Provider: Radha Landers RN) midazolam (Versed) injection (COMPLETED) Intravenous, ONCE PRN, Starting on Sat09/27/23 at 1308, Until Sat09/27/23 at 1308, Intra-op 1308 ($ Given - Provider: Radha Landers RN) traZODone (Desyrel) tablet 150 mg 150 mg, Oral, AT BEDTIME PRN, Insomnia, Starting on Delma 09/26/23 at 2105, Until Sat09/27/23 at 2032 2147 ($ Given - Provider: Quentin Celestin RN) Linked Groups Order Group 1: SALINE LOCK, INSERT AND MAINTAIN (CANCELED) Routine, CONTINUOUS, Starting on Sat09/24/23 at 0400, Until Specified, New collection, Task Completed: Yes And 0.9% NaCl injection 3 mLJump to med 3 mL, Intracatheter, EVERY 8 HOURS, First dose on Sat09/24/23 at 0600, Until Discontinued, Flush peripheral IV catheter with 3 mL of normal saline every 8 hours. And 0.9% NaCl injection 1-10 mLJump to med 1-10 mL, Intracatheter, PRN, Other, peripheral line flush, Starting on Sat09/24/23 at 0356, Until Sat09/27/23 at 203, Flush peripheral IV catheter with 1-10 mL of normal saline before and after medications and prn to clear blood from the line or to verify patency. documented in this encounter Care Teams Health Record Technician Relationship Specialty Start Date End Date Fernando Chavez MD [address] [place] [address] PCP - General Family Medicine 09/06/23 documented as of this encounter
--- OUTSIDE RECORDS SUMMARY | 2024-08-08 16:01 | XMS_ITS | Encounter Summary ---
Author Organization [facility] Address [address] [place] [address] Care Team Providers Care Charge Account Clerk Name Role Phone Fernando Chavez MD Primary Care Provider [phone] Reason for Visit * Reason Comments Refill Request Encounter Details Date Type Department Care Team (Late st Contact Info) Description 02/06/2024 Refill [facility] - Neurology [address] [facility] [place] [id number] Gildardo Lees MD [address] [facility] [place] [address] Refill Request Social History Tobacco Use Types Packs/Day Years [...] No 09/27/2023 documented as of this encounter Plan of Treatment Not on file documented as of this encounter Visit Diagnoses Not on filedocumented in this encounter Care Teams Charge Account Clerk Relationship Specialty Start Date End Date Fernando Chavez MD [address] [facility] [address] [place] [address] PCP - General Family Medicine 09/06/23 documented as of this encounter
--- OUTSIDE RECORDS SUMMARY | 2024-08-08 16:01 | XMS_ITS | Encounter Summary ---
Author Organization [facility] Address [address] [place] [address] Care Team Providers Care Special Needs Babysitter Name Role Phone Fernando Chavez MD Primary Care Provider Encounter Details Date Type Department Care Team (Late st Contact Info) Description 05/15/2024 10:00 AM CDT Video Visit [facility] - Neurology [address] [facility] [place] [id number] Timi Mills MD [address] [place] [address] Subclavian artery stenosis, right (HCC) Social History Tobacco Use Types Packs/Day Years [...] as of this encounter Progress Notes * Timi Mills MD - 05/15/2024 10:13 AM CDT [facility] Re: Periprocedural risk of colonoscopy while holding antiplatelet agents. I had a long conversation with Mrs. Weinberg regarding her current health care problems. She is experiencing severe gastrointestinal symptoms. In the past, when she has experienced these symptoms she has needed surgery for peritonitis and medical treatment for sepsis. She is well aware that the carolyn procedural risk of cerebral ischemia is low bu not zero. She is making an informed decision to stop the antiplatelet agents because the perceived benefit of the colonoscopy outweighs the risk according to her own values and risk evaluation. I agree with her decision and think that she is making awell informed choice. Timi Mills MD documented in this encounter Plan of Treatment Not on file documented as of this encounter Visit Diagnoses Diagnosis Subclavian artery stenosis, right (HCC)- Primary Atherosclerosis of other specified arteries documented in this encounter Care Teams Special Needs Babysitter Relationship Specialty Start Date End Date Fernando Chavez MD [address] [place] [address] PCP - General Family Medicine 09/06/23 documented as of this encounter
--- OUTSIDE RECORDS SUMMARY | 2024-08-08 16:01 | XMS_ITS | Patient Health Summary ---
Author Organization [facility] Address [address] [place] [address] Care Team Providers Care Computer Mechanic Name Role Phone Fernando Chavez MD Primary Care Provider Note from [facility],non-owned Affiliates and Associated Physician Practices is amultiple site organization consisting of ambulatory clinics and hospital sitesin [place], [place], [place] and [place]. This disclosure is being madepursuant to the Care Everywhere program and may not contain all information available regarding this patient. Last updated 18.[facility] Allergies * Bupropion(Unknown) * Codeine(Itching) * Diphenhydramine(Unknown) * Duloxetine(Other) * Gabapentin(Other) * Paroxetine(Other) -Low Criticality * Sertraline(Other) * Skin Adhesives(Skin Reactions) Medications * Be aware that medications may not be up to date on this document. Alwaysverify current medications with the patient. * ondansetron (Zofran) 8 MG tablet Take 1 (one) tablet by mouth every 6 hours as needed for Nausea/Vomiting * traZODone (Desyrel) 100 MG tablet Take 1.5 (one and one-half) tablets by mouth nightly as needed for Insomnia * clonazePAM (KlonoPIN) 0.5 MG tablet Take 1 (one) tablet by mouth 3 times daily * aspirin (Aspirin) 81 MG chew tablet(Started 09/08/2023) Take 1 (one) tablet by mouth once daily 3 refills by 09/06/2024 * clopidogrel (plaVIX) 75 MG tablet(Started 09/08/2023) Take 1 (one) tablet by mouth once daily 3 refills by 09/06/2024 * vitamin E (Tocopheryl) 100 UNIT capsule Take by mouth once daily * cyclobenzaprine (Flexeril) 10 MG tablet Take 1 (one) tablet by mouth 3 times daily as needed for Muscle Spasms * senna (Senokot) 8.6 MG tablet Take by mouth once daily Active Problems Problem Noted Date Diagnosed Date Subclavian artery stenosis, right 09/27/2023 Numbness in left leg 09/27/2023 Left arm numbness 09/27/2023 Weakness of left side of body 09/27/2023 Slurred speech 09/24/2023 Left renal stone 09/06/2023 Anxiety 09/06/2023 Abdominal tenderness in left flank 09/06/2023 Ischemic stroke 09/04/2023 Social History Tobacco Use Types Packs/Day Years [...] on file Sexual Orientation Not on file Last Filed Vital Signs Vital Sign Reading Time Taken Comments Blood Pressure 134/81 11/14/2023 3:18 PM CDT Pulse 112 11/14/2023 3:18 PM CDT Temperature 36.1 ??C (97 ??F) 11/14/2023 3:18 PM CDT Respiratory Rate 10 10/18/2023 11:1 1 AM [employer] Oxygen Saturation 98% 11/14/2023 3:18 PM CDT Inhaled Oxygen Concentration - - Weight 51.6 kg (113 lb 12.8 oz) 11/14/2023 3:18 PM CDT Height 162.6 cm (5' 4 ) 11/14/2023 3:18 PM CDT Body Mass Index 19.53 11/14/2023 3:18 PM CDT Procedures * IR CAROTID CEREBRAL ANGIOGRAM(Performed 09/27/2023) Performed for Slurred speech * PTT [facility](Performed 09/27/2023) * PTT [facility](Performed 09/27/2023) Performed for Slurred speech * PT-INR [facility](Performed 09/27/2023) Performed for Slurred speech * CBC W AUTO DIFFERENTIAL(Performed 09/27/2023) Performed for Slurred speech * PTT [facility](Performed 09/26/2023) * PTT [facility](Performed 09/26/2023) * VAS ARTERIAL ANKLE ARM INDEX(Performed 09/26/2023) Performed for Slurred speech * PTT [facility](Performed 09/26/2023) Performed for Slurred speech * PT-INR [facility](Performed 09/26/2023) Performed for Slurred speech * CBC W AUTO DIFFERENTIAL(Performed 09/26/2023) Performed for Slurred speech * PTT [facility](Performed 09/26/2023) Performed for Slurred speech * PTT [facility](Performed 09/25/2023) Performed for Slurred speech * CARDIAC EKG ORDER(Performed 09/25/2023) * PTT [facility](Performed 09/25/2023) Performed for Slurred speech * PTT [facility](Performed 09/25/2023) Performed for Slurred speech * PT-INR [facility](Performed 09/25/2023) Performed for Slurred speech * CBC W AUTO DIFFERENTIAL(Performed 09/25/2023) Performed for Slurred speech * PTT [facility](Performed 09/24/2023) Performed for Slurred speech * MRI BRAIN WO CONTRAST(Performed 09/24/2023) Performed for Slurred speech * PT-INR [facility](Performed 09/24/2023) Performed for Slurred speech * PTT [facility](Performed 09/24/2023) Performed for Slurred speech * VAS TRANSCRANIAL DOPPLER COMP(Performed 09/24/2023) Performed for Slurred speech * VAS CAROTID DUPLEX BILATERAL(Performed 09/24/2023) Performed for Slurred speech * PT EVAL AND TREAT(Performed 09/24/2023) * OT EVAL AND TREAT(Performed 09/24/2023) * PT EVAL AND TREAT(Performed 09/24/2023) * TROPONIN-I HIGH SENSITIVE REFLEX 1HOUR(Performed 09/24/2023) * EKG 12-LEAD(Performed 09/24/2023) Performed for Slurred speech * CT ANGIO BRAIN NECK STROKE(Performed 09/24/2023) Performed for Slurred speech * CBC W AUTO DIFFERENTIAL(Performed 09/24/2023) * TYPE + SCREEN PANEL(Performed 09/24/2023) * TROPONIN-I HIGH SENSITIVE BASELINE + 1HR(Performed 09/24/2023) * PT-INR [facility](Performed 09/24/2023) * COMPREHENSIVE METABOLIC PANEL(Performed 09/24/2023) * INR WHOLE BLOOD - POINT OF CARE (IP) STROKE(Performed 09/24/2023) * CREATININE - POCT INTERFACED(Performed 09/24/2023) * GLUCOSE - POINT OF CARE(Performed 09/24/2023) * CT BRAIN STROKE(Performed 09/24/2023) Performed for Slurred speech * TYPE + SCREEN PANEL(Performed 09/18/2023) Performed for Pre-op evaluation * PT-INR [facility](Performed 09/18/2023) Performed for Pre-op evaluation * PTT [facility](Performed 09/18/2023) Performed for Pre-op evaluation * EKG 12-LEAD(Performed 09/18/2023) Performed for Preop examination * SARS-COV-2 (COVID-19) RAPID(Performed 09/07/2023) * GLUCOSE - POINT OF CARE(Performed 09/07/2023) * CBC W AUTO DIFFERENTIAL(Performed 09/07/2023) * BASIC METABOLIC PANEL (CALCIUM TOTAL)(Performed 09/07/2023) * MAGNESIUM BLOOD(Performed 09/07/2023) * PHOSPHORUS BLOOD(Performed 09/07/2023) * MRI BRAIN WO CONTRAST(Performed 09/07/2023) Performed for Ischemic stroke (HCC) * GLUCOSE - POINT OF CARE(Performed 09/06/2023) * CT ANGIO BRAIN AND NECK(Performed 09/06/2023) Performed for TIA (transient ischemic attack) * TROPONIN-I HIGH SENSITIVE REFLEX 1HOUR(Performed 09/06/2023) * GLUCOSE - POINT OF CARE(Performed 09/06/2023) * VAS CAROTID DUPLEX BILATERAL(Performed 09/06/2023) Performed for Ischemic stroke (HCC) * VAS TRANSCRANIAL DOPPLER COMP(Performed 09/06/2023) Performed for Ischemic stroke (HCC) * ECHO LIMITED COLOR FLOW AND DOPPLER(Performed 09/06/2023) Performed for Ischemic stroke (HCC) * GLUCOSE - POINT OF CARE(Performed 09/06/2023) * CT HEAD WO CONTRAST(Performed 09/06/2023) Performed for Ischemic stroke (HCC) * URINALYSIS REFLEX TO MICROSCOPIC NO CULTURE(Performed 09/06/2023) * URINE DRUG SCREEN IMMUNOASSAY(Performed 09/06/2023) * CBC W AUTO DIFFERENTIAL(Performed 09/06/2023) * BASIC METABOLIC PANEL (CALCIUM TOTAL)(Performed 09/06/2023) * MAGNESIUM BLOOD(Performed 09/06/2023) * PHOSPHORUS BLOOD(Performed 09/06/2023) * LIPID PROFILE(Performed 09/06/2023) * TROPONIN-I HIGH SENSITIVE BASELINE + 1HR(Performed 09/06/2023) * OT EVAL AND TREAT(Performed 09/06/2023) * GROSS + MICRO EXAM(Performed 10/14/1999) * GROSS + MICRO EXAM(Performed 02/07/1996) Results * IR CAROTID CEREBRAL ANGIOGRAM (09/27/2023 2:09 PM [employer]) Anatomical Region Laterality Modality Head X-Ray Angiograph y 09/27/2023 1:55 PM [employer] Impressions 10/01/2023 10:25 AM [employer] Impression: 1. Severe flow-limiting stenosis of the proximal right subclavian artery measuring 90%. 2. The Right carotid artery supplies the right anterior circulation as well as right posterior circulation via a right CARE NURSE RN. There is no contribution from the left [...] evaluation, please review the evaluation forms in [facility]. For details on monitored clinical parameters during the intra-service sedation time, please review the procedure nurse documentation in [facility]. Timi Casillas MD have personally reviewed and interpreted this examination/study. > Interpreting Provider: Timi Mills MD on 10/01/2023 10:25 AM Narrative 10/01/2023 10:25 AM [employer] PROCEDURE: ??IR CAROTID CEREBRAL ANGIOGRAM DATE/TIME OF [...] cerebral infarction.Vascular surgery consult of possible bypass. Loom Mechanic: Soham Mills Filter Washer(s): Tanika Orourke Vessels: Ultrasound Guided Access of Femoral Artery Left Subclavian Artery Angiogram: Cervical and Cerebral Right Innominate Artery Angiogram: Cervical and Cerebral Left Common Carotid Artery Angiogram: Cervical and Cerebral Right Femoral Artery Angiogram Anesthesia: ??I, Dr. Julius Mills, was present for the entire duration of the procedure. Moderate sedation on this adult patient ws ordered by the lining machine operator, administered intravenously in my presence, and [...] patient evaluation, please review the evaluation in [facility]. For details on monitored clinical parameters during the intra-service sedation time, please review the procedure nurse documentation in [facility]. Procedural detail: The risks, benefits, and alternatives [...] profunda and other arteries were identified. A braswell scale image was documented. The right common femoral artery was accessed using a micropuncture needle. The needle entry was documented. Following a series of exchanges, a 6 Brazilian 30 cm Brite tip sheath was placed in the right femoral artery and a 5 Brazilian sim2 catheter was navigated into the aortic [...] system. Hemostasis was achieved using a 6 Brazilian Angio-Seal closure device. Hemostasis was immediate at [...] poor distal vessel opacification. A large right CARE NURSE RN is visualized. The right carotid artery supplies the right anterior circulation as well as right posterior circulation via a right CARE NURSE RN. The right vertebral artery is non-dominant with [...] cerebral infarction.Vascular surgery consult of possible bypass. Loom Mechanic: Soham Mills Filter Washer(s): Tanika Orourke Vessels: Ultrasound Guided Access of Femoral Artery Left Subclavian Artery Angiogram: Cervical and Cerebral Right Innominate Artery Angiogram: Cervical and Cerebral Left Common Carotid Artery Angiogram: Cervical and Cerebral Right Femoral Artery Angiogram Anesthesia: I, Dr. Julius Mills, was present for the entire duration ofthe procedure. Moderate sedation on this adult patient ws ordered by the lining machine operator, administered intravenously in my presence, and [...] patient evaluation, please review the evaluation in [facility]. For details on monitored clinical parameters during theintra-service sedation time, please review the procedure nurse documentation in [facility]. Procedural detail: The risks, benefits, and alternatives [...] profunda and other arteries were identified. A braswell scale image was documented. The right common femoral artery was accessed using a micropuncture needle. The needle entry was documented. Following aseries of exchanges, a 6 Brazilian 30 cm Brite tip sheath was placed in the right femoral artery and a 5 Brazilian sim2 catheter was navigated into theaortic arch. [...] arterial system.Hemostasis was achieved using a 6 Brazilian Angio-Seal closure device. Hemostasis was immediate at [...] poor distal vessel opacification. A large right CARE NURSE RN is visualized. The right carotid artery supplies the right anterior circulation as well as right posterior circulation via a right CARE NURSE RN. The right vertebral artery is non-dominant with [...] as right posterior circulation via a right CARE NURSE RN. There is no contribution from the left carotid system. 3. The right AICA-PICA receives a majority of flow from the dominantleft vertebral artery system I, Dr. Timi Mills, was present and performed/supervised theentire procedure. Moderate sedation on this adult patient was ordered by me, administered intravenously in my presence, and [facility] as an independent trained observer who was present throughout the procedure. The following parameters were monitored: oxygen saturation, heart rate, blood pressure, and response to care. For details on pre-moderate sedation and post-moderate sedation patient evaluation,please review the evaluation forms in [facility]. For details on monitored clinical parameters during the intra-service sedation time, please review the procedure nurse documentation in [facility]. ITimi MD have personally reviewed and interpreted this examination/study. > Interpreting Provider: Timi Mills MD on 10/01/2023 10:25 AM Joseluis Bear MD IR ORDERABLES * (ABNORMAL) PTT [facility] (09/27/2023 9:29 AM [employer]) Only the most recent of12 resultswithin the time period is included. APTT 57.9(H) 23.0 - 38.4 Seconds 09/27/2023 10:25 AM [facility] Comment:Suggested therapeuti c range for full dose I.V. unfractionated heparin therapy for venous thromboembolism is 71 to 109 seconds. Blood BLOOD SPECIMEN / Unknown Lab Venipuncture / Unknown 09/27/2023 9:29 AM [employer] 09/27/2023 10:01 AM [employer] Joseluis Bear MD LAB - COAGULATION OR DERABLES Performing Organization Address [facility]/ZIP Co de Phone Number [facility] [address] [place] [phone], [facility] [phone] * PT-INR [facility] (09/27/2023 1:50 AM [employer]) Only the most recent of6 resultswithin the time period is included. PT 13.9 12.1 - 14.8 Seconds 09/27/2023 2:38 AM [employer] [facility] INR 1.1 See Comment 09/27/2023 2:38 AM [facility] Comment:The suggested therap eutic range for standard coumadin (warfarin) therapy is an INR of 2.0-3.0. For high-risk patients (Mechanical Mitral Valve Prosthesis, etc.), the suggested prophylactic therapeutic range is an INR of 2.5-3.5. Blood BLOOD SPECIMEN / Unknown Lab Venipuncture / Unknown 09/27/2023 1:50 AM [employer] 09/27/2023 2:11 AM [employer] Joseluis Bear MD LAB - COAGULATION OR DERABLES [facility] [address] [place] [id number], [place] [phone] * CBC W AUTO DIFFERENTIAL (09/27/2023 1:50 AM [facility]) Only the most recent of6 resultswithin the time period is included. WBC 7.0 4.0 - 10.7 x10E9/L 09/27/2023 2:07 AM [facility] RBC Count 3.96 3.90 - 5.20 x10E12/L 09/27/2023 2:07 AM [facility] Hemoglobin 12.0 11.9 - 15.8 g/dL 09/27/2023 2:07 AM [facility] Hematocrit 35.1 34.8 - 46.1 % 09/27/2023 2:07 AM [facility] MCV 88.6 80.0 - 98.0 fL 09/27/2023 2:07 AM [facility] MCH 30.3 26.7 - 33.6 pg 09/27/2023 2:07 AM [facility] MCHC 34.2 31.7 - 36.3 g/dL 09/27/2023 2:07 AM [facility] RDW-CV 12.5 11.3 - 14.8 % 09/27/2023 2:07 AM [facility] Platelet Count 334 150 - 420 x10E9/L 09/27/2023 2:07 AM [facility] MPV 9.6 7.8 - 11.4 fL 09/27/2023 2:07 AM [facility] Neutrophil % 55.4 41.0 - 74.0 % 09/27/2023 2:07 AM [facility] Lymphocyte % 33.0 17.0 - 47.0 % 09/27/2023 2:07 AM [facility] Monocyte % 8.0 3.0 - 11.0 % 09/27/2023 2:07 AM [facility] Eosinophil % 2.9 0.0 - 7.0 % 09/27/2023 2:07 AM [facility] Basophil % 0.6 0.0 - 1.6 % 09/27/2023 2:07 AM [facility] Immature Granulocytes % 0.1 0.0 - 1.0 % 09/27/2023 2:07 AM [employer] [facility] Neutrophil Absolute 3.85 1.60 - 7.50 x10E9/L 09/27/2023 2:07 AM [employer] [facility] Lymphocyte Absolute 2.30 1.00 - 4.40 x10E9/L 09/27/2023 2:07 AM [facility] Monocyte Absolute 0.56 0.15 - 1.00 x10E9/L 09/27/2023 2:07 AM [facility] Eosinophil Absolute 0.20 0.00 - 0.60 x10E9/L 09/27/2023 2:07 AM [facility] Basophil Absolute 0.04 0.00 - 0.13 x10E9/L 09/27/2023 2:07 AM [facility] Blood BLOOD SPECIMEN / Unknown Lab Venipuncture / Unknown 09/27/2023 1:50 AM [employer] 09/27/2023 2:00 AM [employer] Joseluis Bear MD LAB - HEMATOLOGY ORD ERABLES [facility] [address] [place] [phone], [facility] [phone] * VAS ARTERIAL ANKLE ARM INDEX (09/26/2023 8:21 AM [employer]) Anatomical Region Laterality Modality Ankle / Foot, Upper Extremity In travascular Ultrasound 09/26/2023 7:38 AM [employer] Narrative Procedure Note Kennedy Romero MD - 09/26/2023 Joseluis Bear MD VASCULAR LAB ORDERAB LES * CARDIAC EKG ORDER (09/25/2023 2:19 PM [employer]) Narrative 09/25/2023 2:19 PM [employer] Ordered by an unspecified provider. Scanned Document CARDIAC SERVICES ORD ERABLES * MRI BRAIN WO CONTRAST (09/24/2023 3:47 PM [employer]) Only the most recent of2 resultswithin the time period is included. Anatomical Region Laterality Modality Head Magnetic Resonan ce 09/24/2023 3:51 PM [employer] Impressions 09/25/2023 8:24 AM [employer] IMPRESSION: 1. No evidence of acute cerebral [...] 09/25/2023 8:24 AM Narrative 09/25/2023 8:24 AM [employer] PROCEDURE: ??MRI BRAIN WO CONTRAST DATE/TIME OF [...] AM Joseluis Bear MD MR ORDERABLES * VAS TRANSCRANIAL DOPPLER COMP (09/24/2023 2:15 PM [employer]) Only the most recent of2 resultswithin the time period is included. Anatomical Region Laterality Modality Head Intravascular Ul trasound 09/24/2023 12:3 6 PM [employer] Narrative Procedure Note Timi Mills MD - 10/10/2023 Joseluis Bear MD VASCULAR LAB ORDERAB LES * VAS CAROTID DUPLEX BILATERAL (09/24/2023 2:14 PM [employer]) Only the most recent of2 resultswithin the time period is included. Anatomical Region Laterality Modality Neck Intravascular Ul trasound 09/24/2023 12:5 3 PM [employer] Narrative Procedure Note Mark Salmeron MD - 09/24/2023 Joseluis Bear MD VASCULAR LAB ORDERAB LES * TROPONIN-I HIGH SENSITIVE REFLEX 1HOUR (09/24/2023 5:45 AM [employer]) Only the most recent of2 resultswithin the time period is included. Pathologist [facility] Troponin I High Sensitive <3 <=14 ng/L 09/24/2023 7:39 AM [employer] [facility] Delta Troponin I HS 09/24/2023 7:39 AM [facility] Comment:Result exceeds linea rity range. A delta value is unable to be calculated. Blood BLOOD SPECIMEN / Unknown Venipuncture / Unknown 09/24/2023 5:45 AM [employer] 09/24/2023 6:44 AM [employer] Clayton Frazier MD LAB - CHEMISTRY JOSH CALVO [facility] Organization Address City/State/ZIP Co de Phone Number [facility] [address] [place] [phone], [facility] [phone] * EKG 12-LEAD (09/24/2023 5:21 AM [employer]) Only the most recent of2 resultswithin the time period is included. Ventricular Rate 61 BPM [facility] MUSE Atrial Rate 61 BPM [facility] MUSE P-R Interval 158 ms [facility] QRS Duration ms 76 ms [facility] MUSE Q-T Interval ms 484 ms [facility] MUSE QTC Calculation (Bezet) 487 ms [facility] MUSE Calculated P [place] 75 degrees [facility] M[facility] Calculated R [place] 84 degrees [facility] Calculated T [place] 88 degrees [facility] Interpretation EKG SINUS RHYTHM WITH MARKED SINUS ARRYTHMIA NONSPECIFIC T WAVE ABNORMALITY PROLONGED QT ABNORMAL ECG WHEN COMPARED WITH ECG OF 18-SEP-2023 14:24, T WAVE INVERSION NOW EVIDENT IN ANTERIOR LEADS Confirmed by MICHAEL CRISTOBAL MD ([id number]) on 09/28/2023 9:49:30 AM [facility] MUSE 09/24/2023 5:21 AM [employer] 09/28/2023 9:49 AM [employer] Clayton Frazier MD ECG ORDERABLES [facility] * CT ANGIO BRAIN NECK STROKE (09/24/2023 4:35 AM [employer]) Anatomical Region Laterality Modality Head Computed Tomogra phy 09/24/2023 4:47 AM [employer] Impressions 09/24/2023 10:43 AM [employer] IMPRESSION: 1.No significant change since prior. 2.Atherosclerotic [...] 09/24/2023 10:43 AM Narrative 09/24/2023 10:43 AM [employer] PROCEDURE: ??CT ANGIO BRAIN NECK STROKE, DATE/TIME OF EXAM: ??09/24/2023 5:19 AM, LOCATION ??[facility] INDICATION: Code Stroke ADDITIONAL CLINICAL INFORMATION: [...] STROKE, DATE/TIME OF EXAM: :19 AM, LOCATION [facility] INDICATION: Code Stroke ADDITIONAL CLINICAL INFORMATION: [...] AM Clayton Frazier MD CT ORDERABLES * TROPONIN-I HIGH SENSITIVE BASELINE + 1HR (09/24/2023 4:30 AM [employer]) Only the most recent of2 resultswithin the time period is included. [facility] Troponin I High Sensitive <3 <=14 ng/L 09/24/2023 5:16 AM [employer] [facility] Blood BLOOD SPECIMEN / Unknown Venipuncture / Unknown 09/24/2023 4:30 AM [employer] 09/24/2023 4:37 AM [employer] Clayton Frazier MD LAB - CHEMISTRY ORDJonh CALVO Performing Organization Address City/[facility]/ZIP Co de Phone Number [facility] [address] [place] [phone], [facility] [phone] * TYPE + SCREEN PANEL (09/24/2023 4:30 AM [employer]) Only the most recent of2 resultswithin the time period is included. [facility] Antibody Screen NEG 5:14 AM [employer] [facility] ABO Rh A NEG 09/24/2023 5:14 AM [employer] [facility] Blood Bank BLOOD SPECIMEN / Unknown Venipuncture / Unknown 09/24/2023 4:30 AM [employer] 09/24/2023 4:37 AM [employer] Clayton Frazier MD LAB - BLOOD BANK ORD HANK Performing Organization Address City/[facility]/ZIP Co de Phone Number [facility] [address] [place] [phone], [place] [phone] * (ABNORMAL) COMPREHENSIVE METABOLIC PANEL (09/24/2023 4:30 AM [employer]) [facility] BUN 16 7 - 26 mg/dL 09/24/2023 5:10 AM [facility] Creatinine 0.91 0.56 - 0.96 mg/dL 09/24/2023 5:10 AM [facility] Sodium 141 136 - 145 mmol/L 09/24/2023 5:10 AM [facility] Potassium 3.9 3.5 - 4.5 mmol/L 09/24/2023 5:10 AM [facility] Comment:Hemolysis detected i n this specimen. Hemolysis may cause false elevations in potassium leading to pseudohyperkalemia or masked hypokalemia. Recommend repeat testing if clinically indicated. Chloride 107 98 - 107 mmol/L 09/24/2023 5:10 AM [facility] CO2 24 22 - 29 mmol/L 09/24/2023 5:10 AM [facility] Glucose 77 70 - 115 mg/dL 09/24/2023 5:10 AM [facility] Calcium 9.4 8.4 - 10.2 mg/dL 09/24/2023 5:10 AM [facility] Protein Total 7.7 6.0 - 8.3 g/dL 09/24/2023 5:10 AM [facility] Comment:Hemolysis detected i n this specimen. Hemolysis is known to cause elevations in this analyte. Caution should be exercised in the interpretation of this result. Recommend repeat testing if clinically indicated. Albumin 4.2 3.4 - 5.0 g/dL 09/24/2023 5:10 AM [facility] Bilirubin Total 0.3 0.2 - 1.2 mg/dL 09/24/2023 5:10 AM [facility] Alkaline Phosphatase 93 40 - 150 U/L 09/24/2023 5:10 AM [facility] ALT 18 5 - 55 U/L 09/24/2023 5:10 AM [facility] AST 34 5 - 34 U/L 09/24/2023 5:10 AM [facility] Comment:Hemolysis detected i n this specimen. Hemolysis is known to cause elevations in this analyte. Caution should be exercised in the interpretation of this result. Recommend repeat testing if clinically indicated. Anion Gap 10 6 - 16 09/24/2023 5:10 AM [facility] BUN/Creatinine Ratio 18 7 - 23 09/12 5:10 AM [facility] Osmolality Calculated 292 275 - 295 mOsm/kg 09/24/2023 5:10 AM [facility] Albumin/Globulin Ratio 1.2 1.1 - 2.3 5:10 AM [facility] eGFR by CKD-EPI 74(L) >=90 mL/min/1. 73 m2 09/24/2023 5:10 AM [facility] Blood BLOOD SPECIMEN / Unknown Venipuncture / Unknown 09/24/2023 4:30 AM [employer] 09/24/2023 4:37 AM [employer] Clayton Frazier MD LAB - CHEMISTRY ORDJonh CALVO [address] [address], [facility] [phone] * INR WHOLE BLOOD - POINT OF CARE (IP) STROKE (09/24/2023 4:28 AM [facility]) INR 1.0 0.9 - 1.2 09/25/2023 11:05 AM [facility] Device [id number] 09/25/2023 11:05 AM [facility] Loom Mechanic ID [id number] 09/25/2023 11:05 AM [facility] Blood BLOOD SPECIMEN / Unknown 09/24/2023 4:28 AM [employer] 09/25/2023 11:05 AM [employer] Provider Unknown LAB - POINT OF CARE ORDERABLES [address] [address], [place] [phone] * (ABNORMAL) CREATININE - POCT INTERFACED (09/24/2023 4:27 AM [facility]) Creatinine POCT 0.78 0.30 - 1.30 mg/dL 09/25/2023 4:00 PM [facility] eGFR 89(L) >90 mL/min/1.7 3 m2 09/25/2023 4:00 PM [facility] Blood BLOOD SPECIMEN / Unknown 09/24/2023 4:27 AM [employer] 09/25/2023 4:00 PM [employer] Provider Unknown LAB - POINT OF CARE ORDERABLES Performing Organization Address [facility]/ZIP Co de Phone Number [address] [address], [facility] [phone] * GLUCOSE - POINT OF CARE (09/24/2023 4:14 AM [employer]) Only the most recent of5 resultswithin the time period is included. Glucose WB/POC 105 70 - 115 mg/dL 09/24/2023 4:18 AM [employer] [facility] Specimen Type Cap Fingerstick 2023 4:18 AM [employer] [facility] Blood BLOOD SPECIMEN / Unknown 09/24/2023 4:14 AM [employer] 09/24/2023 4:18 AM [employer] Provider Unknown LAB - POINT OF CARE ORDERABLES Performing Organization Address [facility]/ZIP Co de Phone Number [address] [address], [facility] [phone] * CT BRAIN - Stroke (09/24/2023 4:07 AM [employer]) Anatomical Region Laterality Modality Head Computed Tomogra phy 09/24/2023 7:04 AM [employer] Impressions 09/24/2023 10:33 AM [employer] IMPRESSION: 1.No acute intracranial hemorrhage. 2.Please note that CT is insensitive to nonhemorrhagic strokes and MRI should be considered if there is clinical concern for acute infarction. 3.Fundus examination is recommended to exclude papilledema and/or the possibility of idiopathic intracranial hypertension (IIH). > Dictated by Theo Hebert DO (vice president of talent management) Lay Casillas MD have personally reviewed and interpreted this examination/study. > Interpreting Provider: Lay Chaudhry MD on 09/24/2023 10:33 AM Narrative 09/24/2023 10:33 AM [employer] PROCEDURE: ??CT BRAIN STROKE, DATE/TIME OF EXAM: ??09/24/2023 4:14 AM, LOCATION ??[facility] INDICATION: Code Stroke EXAMINATION: Computed tomography [...] effect or midline shift is seen. The braswell-white matter differentiation is obscured by motion artifact. [...] DATE/TIME OF EXAM: 09/24/2023 4:14 AM, LOCATION [facility] INDICATION: Code Stroke EXAMINATION: Computed tomography [...] mass effect or midline shift isseen. The braswell-white matter differentiation is obscured by motion artifact.There [...] Dictated by Theo Hebert DO (vice president of talent management) Lay Casillas MD have personally reviewed and interpretedthis examination/study. > Interpreting Provider: Lay Chaudhry MD on 09/24/2023 10:33 AM Clayton Frazier MD CT ORDERABLES * SARS-COV-2 (COVID-19) RAPID (09/07/2023 12:13 PM [employer]) Pathologist [facility] COVID-19 PCR Not detected Not detected 09/07/19 12:57 PM [employer] [facility] Microbiology SPECIMEN FROM NASOPHARYNGEAL STRUCTURE / Unknown Collection / Unknown 09/07/2023 12:13 PM [employer] 09/07/2023 12:22 PM [employer] Narrative [facility] - 09/07/2023 12:57 PM [employer] The Cepheid Xpert Xpress SARS-COV-2 has been authorized by the Food and Drug Administration (FDA) under an Emergency Use Authorization (EUA). This test has been validated in accordance with the FDA's guidance document Policy for Diagnostic Testing in Laboratories [...] this EUA assay are available upon request. Manuel Peña MD LAB - MICROBIOLOGY O THAD [address] [address], [facility] [phone] * (ABNORMAL) BASIC METABOLIC PANEL (CALCIUM TOTAL) (09/07/2023 6:38 AM [employer]) Only the most recent of2 resultswithin the time period is included. Pathologist [facility] BUN 9 7 - 26 mg/dL 09/07/2023 7:57 AM [facility] Creatinine 0.88 0.56 - 0.96 mg/dL 09/07/2023 7:57 AM [facility] Sodium 140 136 - 145 mmol/L 09/07/2023 7:57 AM [facility] Potassium 3.1(L) 3.5 - 4.5 mmol/L 09/07/2023 7:57 AM [facility] Chloride 107 98 - 107 mmol/L 09/07/2023 7:57 AM [facility] CO2 24 22 - 29 mmol/L 09/07/2023 7:57 AM [facility] Glucose 98 70 - 115 mg/dL 09/07/2023 7:57 AM [facility] Calcium 9.1 8.4 - 10.2 mg/dL 09/07/2023 7:57 AM [facility] Anion Gap 9 6 - 16 09/07/2023 7:57 AM [facility] BUN/Creatinine Ratio 10 7 - 23 09/07/2023 7:57 AM [facility] Osmolality Calculated 289 275 - 295 mOsm/kg 09/07/2023 7:57 AM [facility] eGFR by CKD-EPI 77(L) >=90 mL/min/1.7 3 m2 09/07/2023 7:57 AM [facility] Blood BLOOD SPECIMEN / Unknown Lab Venipuncture / Unknown 09/07/2023 6:38 AM [employer] 09/07/2023 7:30 AM [facility] Timi Mills MD LAB - CHEMISTRY ORD ERABLES [facility] [address] [place] [address], [facility] [phone] * PHOSPHORUS BLOOD (09/07/2023 6:38 AM [facility]) Only the most recent of2 resultswithin the time period is included. Phosphorus 3.6 2.9 - 5.1 mg/dL 09/07/2023 7:57 AM [facility] Blood BLOOD SPECIMEN / Unknown Lab Venipuncture / Unknown 09/07/2023 6:38 AM [employer] 09/07/2023 7:30 AM [employer] Timi Mills MD LAB - CHEMISTRY ORD ERABLES Performing Organization Address City/[facility]/ZIP Co de Phone Number [address] [address], [facility] [phone] * MAGNESIUM BLOOD (09/07/2023 6:38 AM [employer]) Only the most recent of2 resultswithin the time period is included. Magnesium 1.6 1.6 - 2.6 mg/dL 09/07/2023 7:57 AM [employer] [facility] Blood BLOOD SPECIMEN / Unknown Lab Venipuncture / Unknown 09/07/2023 6:38 AM [employer] 09/07/2023 7:30 AM [employer] Timi Mills MD LAB - CHEMISTRY ORD ERABLES Performing Organization Address [facility] Co de Phone Number [address] [address], [facility] [phone] * CT ANGIO BRAIN AND NECK (09/06/2023 3:30 PM [employer]) Anatomical Region Laterality Modality Head Computed Tomogra phy 09/06/2023 3:32 PM [employer] Impressions 09/06/2023 3:41 PM [employer] IMPRESSION: 1. No acute intracranial hemorrhage. 2. No large arterial occlusions or significant stenoses identified in the head or neck. Scattered atherosclerotic disease in the neck arteries. 3. 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 > Interpreting Provider: Romi Dutton MD on 09/06/2023 3:41 PM Narrative 09/06/2023 3:41 PM [employer] PROCEDURE: ??CT ANGIO BRAIN AND NECK, DATE/TIME OF EXAM: ??09/06/2023 3:30 PM, LOCATION ??[facility] INDICATION: G45.9: TIA (transient ischemic attack) ADDITIONAL CLINICAL INFORMATION: Ordering Provider Reason For Exam: ??r/o Technologist Note: Additional: EXAMINATION: 1. Computed tomographic (CT) angiography of the head without and with contrast 2. CT angiography of the neck with contrast TECHNIQUE: CT of the head was performed without contrast according to standard protocol. Then CT angiography of the head and neck was obtained after the uneventful administration of 75 mL Isovue-370 intravenous contrast. Three dimensional postprocessing was performed by the technologist and sent to the workstation for review. COMPARISON: Comparison is made with a study from earlier today. FINDINGS: Non-angiographic findings: No acute intracranial hemorrhage or intra- or extra-axial fluid collections are identified. The ventricles are of normal size, shape, and morphology. The basal cisterns are patent. No mass effect or midline shift is seen. The braswell-white matter differentiation is normal. The visualized portions of the orbits, paranasal sinuses, and mastoids appear normal. No acute calvarial fracture is identified. No soft tissue abnormalities are identified in the neck. Mild multilevel degenerative disc and joint disease is noted. Angiographic findings: Neck: There is atherosclerotic disease of the aortic arch. The configuration of the brachiocephalic vessels is typical. There is scattered atherosclerotic calcification of the innominate and subclavian arteries, causing severe focal stenosis at origin of the right subclavian artery. There is atherosclerotic disease in the right carotid bifurcation and origin of the right internal carotid artery with less than 50 percent focal stenosis. The right common and internal carotid arteries otherwise appear patent. There is atherosclerotic disease in the left carotid bifurcation and origin of the left internal carotid artery without focal stenosis. Other than atherosclerotic calcifications in the distal left internal carotid artery, the left common and internal carotid arteries otherwise appear patent. There is atherosclerotic disease in the cervical vertebral arteries without significant focal stenosis. The left vertebral artery is dominant. Head: The distal internal carotid arteries are patent. The anterior cerebral arteries ??are patent. The middle cerebral arteries ??are patent. The posterior cerebral arteries are patent with origin of the right posterior cerebral artery. The distal vertebral arteries are patent. The basilar artery is patent patent. No aneurysms, spot sign, or signs of a high flow vascular malformation are identified. Procedure Note Romi Dutton MD - 09/06/2023 PROCEDURE: CT ANGIO BRAIN AND NECK, DATE/TIME OF EXAM: 09/06/2023 3:30PM, LOCATION [facility] INDICATION: G45.9: TIA (transient ischemic attack) ADDITIONAL CLINICAL INFORMATION: Ordering Provider Reason For Exam: r/o Technologist Note: Additional: EXAMINATION: 1. Computed tomographic (CT) angiography of the head without and with contrast 2. CT angiography of the neck with contrast TECHNIQUE: CT of the head was performed without contrast according to standard protocol. Then CT angiography of the head and neck was obtained after the uneventful administration of 75 mL Isovue-370 intravenous contrast. Three dimensional postprocessing was performed by the technologist and sent to the workstation for review. COMPARISON: Comparison is made with a study from earlier today. FINDINGS: Non-angiographic findings: No acute intracranial hemorrhage or intra- or extra-axial fluidcollections are identified. The ventricles are of normal size, shape, andmorphology. The basal cisterns are patent. No mass effect or midline shift is seen.The braswell-white matter differentiation is normal. The visualized portions of the orbits, paranasal sinuses, and mastoids appear normal. No acute calvarial fracture is identified. No soft tissue abnormalities are identified in the neck. Mild multilevel degenerative disc and joint disease is noted. Angiographic findings: Neck: There is atherosclerotic disease of the aortic arch. The configurationof the brachiocephalic vessels is typical. There is scatteredatherosclerotic calcification of the innominate and subclavian arteries, causing severe focal stenosis at origin of the right subclavian artery. There is atherosclerotic disease in the right carotid bifurcation and origin ofthe right internal carotid artery with less than 50 percent focal stenosis.The right common and internal carotid arteries otherwise appear patent.There is atherosclerotic disease in the left carotid bifurcation and origin of the left internal carotid artery without focal stenosis. Other than atherosclerotic calcifications in the distal left internal carotidartery, the left common and internal carotid arteries otherwise appear patent. There is atherosclerotic disease in the cervical vertebral arterieswithout significant focal stenosis. The left vertebral artery is dominant. Head: The distal internal carotid arteries are patent. The anterior cerebral arteries are patent. The middle cerebral arteries are patent. The posterior cerebral arteries are patent with origin of the right posterior cerebral artery. The distal vertebral arteries are patent. The basilar artery is patent patent. No aneurysms, spot sign, or signs of a high flow vascular malformation are identified. IMPRESSION: 1. No acute intracranial hemorrhage. 2. No large arterial occlusions or significant stenoses identified inthe head or neck. Scattered atherosclerotic disease in the neck arteries. 3. Atherosclerotic disease causing severe focal stenosis at origin ofthe right subclavian artery. > Interpreting Provider: Romi Dutton MD on 09/06/2023 3:41 PM Timi Mills MD CT ORDERABLES * ECHO LIMITED COLOR FLOW AND DOPPLER (09/06/2023 10:11 AM [employer]) BSA 1.2864691 m2 SSM CV FUJ I PACS LV biplane EF 64 54 - 74 % SSM CV FUJI PACS LV A2C EF 70 52 - 76 % SSM CV FUJ I PACS LV A4C EF 59 46 - 78 % SSM CV FUJ I PACS LV stroke vol BP 27.3 mL SSM CV FUJI PACS LV stroke vol BP index 18.9 mL/m2 SSM CV FUJI PACS LV stroke vol index A4C MOD 23.894 ml/m2 SSM CV FUJI PACS LV ESV BP 15.162 14 - 42 mL SSM CV FU JI PACS LV ESV index BP 10.5 8 - 24 mL/m2 SSM CV FUJI PACS LV ESV A2C 16.772 10 - 54 mL SSM CV F UJI PACS LV ESV index A2C 11.62 6 - 30 mL/m2 SSM CV FUJI PACS LV EDV BP 42.433 46 - 106 mL SSM CV FUJI PACS LV ESV A4C 13.257 12 - 60 mL SSM CV F UJI PACS LV ESV index A4C 9.19 7 - 35 mL/m2 SSM CV FUJI PACS LV EDV index BP 29.4 29 - 61 mL/m2 SSM CV FUJI PACS LV EDV A2C 44.135 41 - 133 mL SSM CV FUJI PACS LV EDV index A2C 30.58 26 - 74 mL/m2 SSM CV FUJI PACS LV EDV A4C 40.667 mL SSM CV FU JI PACS LV EDV index A4C 28.18 30 - 82 mL/m2 SSM CV FUJI PACS LV Lim A2C 5.997 cm SSM CV F UJI PACS LV Lim A4C 5.96 cm SSM CV F UJI PACS TV S' osman 13.047 cm/s SSM CV FUJ I PACS TAPSE 1.973 1.7 cm SSM CV FUJ I PACS IVC size 1.2 cm SSM CV FUJ I PACS [id number] 4.285 cm SSM CV FUJ I PACS [id number] 4.463 cm SSM CV FUJ I PACS LA vol BP 34.772 mL SSM CV FUJ I PACS LA vol index 24.1 16 - 34 mL/m2 SSM CV FUJI PACS LA area A4C 14.53 20 cm2 SSM CV F UJI PACS LA vol BP A-L 40.303 mL SSM CV FUJI PACS LA ESV A4C MOD Index 22 ml/m2 SSM CV FUJI PACS LA ESV A2C MOD Index 25 ml/m2 SSM CV FUJI PACS LA AREA (2C) 15.242 SSM CV FUJI PACS Anatomical Region Laterality Modality Ultrasound Narrative 09/06/2023 10:58 AM [employer] ?Left??Ventricle: Left ventricle size is normal. Mildly increased wall thickness. Ventricular mass is normal. Findings consistent with concentric remodeling. Normal systolic function. EF by 2D Ortega biplane is 64%. Normal wall motion. Unable to assess diastolic function. ?Right??Ventricle: Right ventricle size is normal. Normal systolic function. ?Bubble study could not be performed as patient did not have an iv line. Left Ventricle Left ventricle size is normal. Mildly increased wall thickness. Ventricular mass is normal. Findings consistent with concentric remodeling. Normal systolic function. EF by 2D Ortega biplane is 64%. Normal wall motion. Unable to assess diastolic function. Right Ventricle Right ventricle size is normal. Normal systolic function. Left Atrium Left atrium size is normal. Left atrium volume index is 24.1 mL/m2. Right Atrium Right atrium size is normal. IVC/SVC IVC diameter is less than or equal to 21 mm and decreases greater than 50% during inspiration; therefore the estimated right atrial pressure is normal (~3 mmHg). Mitral Valve Valve structure is normal. Trace regurgitation. No stenosis. Tricuspid Valve Valve structure is normal. Trace regurgitation. Unable to estimate the pulmonary artery systolic pressure due to lack of envelope. No stenosis. Aortic Valve Not assessed. Pulmonic Valve Not assessed. Ascending Aorta Normal sized sinus of Valsalva (aortic root). Pericardium Evidence of prominent epicardial fat pad. No pericardial effusion. Study Details Study quality was fair. A limited 2D, color Doppler and spectral Doppler echocardiogram was performed. The apical, parasternal and subcostal views were obtained. Patient exhibited sinus rhythm. Technical difficulties due to patient supine position and patient positioning. Unable to do bubble study because patient had no I.V. Timi Mills MD ECHO CUPID * CT HEAD WO CONTRAST (09/06/2023 4:04 AM [employer]) Anatomical Region Laterality Modality Head Computed Tomogra phy 09/06/2023 8:41 AM [employer] Impressions 09/06/2023 9:03 AM [employer] IMPRESSION: 1.No acute intracranial hemorrhage. > Dictated by Chriss Hebert DO (vice president media relations). I, Lay Chaudhry MD have personally reviewed and interpreted this examination/study. > Interpreting Provider: Lay Chaudhry MD on 09/06/2023 9:03 AM Narrative 09/06/2023 9:03 AM [employer] PROCEDURE: ??CT HEAD WO CONTRAST, DATE/TIME OF EXAM: ??09/06/2023 4:05 AM, LOCATION ??[facility] INDICATION: I63.9: Ischemic stroke ([facility]) ADDITIONAL CLINICAL INFORMATION: Ordering Provider Reason For Exam: ??Stroke follow up Technologist Note: ??None. Additional: ??Madison Ferguson a 57 year oldfemalewith PMHx of nephrolithiasis, endometriosis, complex abdominal history with multiple abdominal procedures and SBOs, who presented to [facility] 09/06 due to left sided weakness. 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 Also COVID positive. CT AP obtained at OSH, which reports showed non-obstructing left sided stones. Urology was consulted for these findings. Patient has had multiple ESWLs in the past (4-5x). Most recent treatment was a few years ago. They have been bilateral. Currently has diffuse abdominal pain, but also worse on left with associated left flank pain. Voiding without issue. AAOx4. AFVSS. WBC 5.4, Hgb 10.2, Cr 0.87. COMPARISON: None. TECHNIQUE: CT of the head was performed without contrast according to standard protocol. CT dose reduction technique was used, including Automated Exposure Control. FINDINGS: No acute intra- or extra-axial hemorrhage or fluid collections are identified. The ventricles are of normal size, shape, and morphology. The basilar cisterns are patent. No mass effect or midline shift is seen. The braswell-white matter differentiation is normal. Periventricular white matter hypoattenuation is indicative of chronic small vessel ischemic disease. There is vascular calcification of the carotid siphons. Other than an old right lamina papyracea fracture, the orbits appear normal. Mild mucosal thickening in the ethmoid air cells. The remaining paranasal sinuses appear grossly clear. The middle ear cavities and mastoid air cells are clear. No acute fracture is identified. Nonspecific well-defined lucencies in the paramedian right occipital bone may represent prominent vessels.. No soft tissue abnormality is identified. Procedure Note Lay Chaudhry MD - 09/06/2023 PROCEDURE: CT HEAD WO CONTRAST, DATE/TIME OF EXAM: 09/06/2023 4:05 AM, LOCATION [facility] INDICATION: I63.9: Ischemic stroke ([facility]) ADDITIONAL CLINICAL INFORMATION: Ordering Provider Reason For Exam: Stroke follow up Technologist Note: None. Additional: Madison Ferguson a 57 year oldfemalewith PMHx of nephrolithiasis, endometriosis, complex abdominal history with multiple abdominal procedures and SBOs, who presented to [facility] 09/06 due to leftsided weakness. 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 Also COVID positive.CT AP obtained at OSH, which reports showed non-obstructing left sidedstones. Urology was consulted for these findings. Patient has had multiple ESWLs in the past (4-5x). Most recent treatment was a few years ago. They have been bilateral. Currently has diffuse abdominal pain, but also worse on left with associated left flank pain. Voiding without issue. AAOx4. AFVSS. WBC 5.4, Hgb 10.2, Cr 0.87. COMPARISON: None. TECHNIQUE: CT of the head was performed without contrast according to standard protocol. CT dose reduction technique was used, including Automated Exposure Control. FINDINGS: No acute intra- or extra-axial hemorrhage or fluid collections are identified. The ventricles are of normal size, shape, and morphology.The basilar cisterns are patent. No mass effect or midline shift is seen.The braswell-white matter differentiation is normal. Periventricular whitematter hypoattenuation is indicative of chronic small vessel ischemic disease. There is vascular calcification of the carotid siphons. Other than anold right lamina papyracea fracture, the orbits appear normal. Mild mucosal thickening in the ethmoid air cells. The remaining paranasal sinusesappear grossly clear. The middle ear cavities and mastoid air cells are clear.No acute fracture is identified. Nonspecific well-defined lucencies in the paramedian right occipital bone may represent prominent vessels.. Nosoft tissue abnormality is identified. IMPRESSION: 1.No acute intracranial hemorrhage. > Dictated by Chriss Hebert DO (vice president media relations). ILay MD have personally reviewed and interpretedthis examination/study. > Interpreting Provider: Lay Chaudhry MD on 09/06/2023 9:03 AM Timi Mills MD CT ORDERABLES * (ABNORMAL) URINALYSIS REFLEX TO MICROSCOPIC NO CULTURE (09/06/2023 2:58 AM [employer]) Color UA Colorless(A ) Straw, Yellow 09/06/2023 3:17 AM [facility] Clarity UA Clear Clear 09/06/2023 3:17 AM [facility] Specific [place] UA 1.003(L) 1.005 - 1.030 09/06/2023 3:17 AM [facility] pH UA 7.0 5.0 - 8.0 pH 09/06/2023 3:17 AM [facility] Protein UA Negative Negative 09/06/2023 3:17 AM [facility] Glucose UA Negative Negative 09/06/2023 3:17 AM [facility] Ketone UA Negative Negative 09/06/2023 3:17 AM [facility] Bilirubin UA Negative Negative 09/06/2023 3:17 AM [facility] Blood UA Negative Negative 09/06/2023 3:17 AM [facility] Nitrite UA Negative Negative 09/06/2023 3:17 AM [facility] Leukocyte Esterase Negative Negative 09/06/2023 3:17 AM [facility] Urobilinogen UA Negative Negative mg/dL 09/06/2023 3:17 AM [facility] RBC UA 0-2 None Seen, 0-2, 3-5 /HPF 09/06/2023 3:17 AM [facility] WBC UA 0-5 None Seen, 0-5 /HPF 09/06/2023 3:17 AM [facility] Squamous Epithelial Cells UA None Seen None Seen, 0-2, 3-5 /HPF 09/06/2023 3:17 AM [facility] Urine URINE SPECIMEN OBTAINED BY CLEAN CATCH PROCEDURE / Unknown Collection / Unknown 09/06/2023 2:58 AM [facility] 09/06/2023 3:10 AM [facility] - 09/06/2023 3:17 AM [facility] Timi Mills MD LAB - URINALYSIS OR DERABLES Performing Organization Address [facility] de Phone Number [address] [id number] [phone] * (ABNORMAL) URINE DRUG SCREEN IMMUNOASSAY (09/06/2023 2:58 AM BATTERY VENT PLUG INSERTER) [facility] Amphetamines Screen Urine Negative Negative : < 1000 ng/mL 09/06/2023 3:32 AM [facility] Barbiturates Screen Urine Negative Negative : < 200 ng/mL 09/06/2023 3:32 AM [facility] Benzodiazepine Screen Urine Negative Negative : < 200 ng/mL 09/06/2023 3:32 AM [facility] Opiates Urine Positive(A) Negative : < 300 ng/mL 09/06/2023 3:32 AM [facility] Comment:Positive urine opiat e screening results should be confirmed by another generally accepted non-immunological method such as gas chromatography or mass spectrometry. Cocaine Metabolites Urine Negative Negative : < 300 ng/mL 09/06/2023 3:32 AM [facility] Phencyclidine Screen Urine Negative Negative : < 25 ng/ml 09/06/2023 3:32 AM [facility] Cannabinoids Screen Urine Positive(A) Negative : <50 ng/mL 09/06/2023 3:32 AM [facility] Comment:Positive urine canna binoids (THC) screening results should be confirmed by another generally accepted non-immunological method such as gas chromatography or mass spectrometry. Methadone Screen Urine Negative Negative : < 300 ng/mL 09/06/2023 3:32 AM [facility] Fentanyl Screen Urine Negative Negative : <1.5 ng/mL 09/06/2023 3:32 AM [facility] Urine URINE / Unknown Collection / Unknown 09/06/2023 2:58 AM BATTERY VENT PLUG INSERTER 09/06/2023 3:10 AM [facility] Narrative [facility] - 09/06/2023 3:32 AM [facility] The Urine Toxicology Screening Panel does not screen for Propoxyphene, Meprobamate, Carisoprodol, Trazodone, klil-yrm-hikamui medications and/or volatiles (Acetone, Isopropanol, Methanol or Ethylene Glycol). Ethanol, Salicylate, Acetaminophen, Tricyclic Antidepressants and several therapeutic drugs may be individually assayed in serum or plasma specimen. Toxicology testing by the [facility] is an aid to medical diagnosis and treatment of patients. No documented chain of custody was maintained. Results are intended to be used for clinical purposes only. ? Timi Mills MD LAB - URINE VICE PRESIDENT DIGITAL STRATEGIST RY ORDERABLES Performing Organization Address City/State/[facility] Co de Phone Number [facility] [address] [place] [address], [facility] [phone] * LIPID PROFILE (09/06/2023 1:46 AM [facility]) Cholesterol Total 144 <200 mg/dL 09/06/2023 3:28 AM [facility] HDL 42 >40 mg/dL 09/06/2023 3:28 AM [facility] Comment: ATP III Classification of HDL Cholesterol: ? <40 mg/dL: ??Considered a major risk factor. ? >60 mg/dL: ??Considered a negative risk factor. ? LDL Calculated 86 <100 mg/dL 09/06/2023 3:28 AM [facility] Comment: ATP III Classification of LDL Cholesterol: ?<100 mg/dL: ??Optimal ? 100 - 129 mg/dL: ??Near Optimal/Above Optimal ? 130 - 159 mg/dL: ??Borderline High ? 160 - 189 mg/dL: ??High ?>190 mg/dL: ??Very High ? Triglycerides 79 <150 mg/dL 09/06/2023 3:28 AM [facility] Comment: ATP III Classification of Triglycerides: ?<150 mg/dL: ??Normal ? 150 - 199 mg/dL: ??Borderline High ? 200 - 400 mg/dL: ??High ?>500 mg/dL: ??Very High Blood BLOOD SPECIMEN / Unknown Lab Venipuncture / Unknown 09/06/2023 1:46 AM BATTERY VENT PLUG INSERTER 09/06/2023 2:51 AM [facility] Timi Mills MD LAB - CHEMISTRY ORD ERABLES [facility] [address] [place] [address], [place] [phone] * GROSS + MICRO EXAM (10/14/1999 8:35 AM [facility]) Only the most recent of2 resultswithin the time period is included. Pathologist [facility] Result CASE NUMBER [id number] Comment: ORDERING PHYSICIAN ??KIRK ALY SPECIMEN TYPE ?Intestine-bx of nodule Surgeon ?KIRK ALY M.D. Gross Exam ? DR. BLAINE MINER M.D. Gross Report ? INDICATION FOR PROCEDURE ??ENDOMETRIOSIS/PELVIC PAIN OPERATION ??DIAGNOSTIC LAPAROSCOPY WITH ADHESIOLYSIS AND COLPECTOMY SPECIMEN ??BIOPSY OF SMALL BOWEL, NODULE OF ILEUM ??BIOPSY PELVIC SIDE WALL ??PERITONEAL BIOPSY GROSS ?? THE SPECIMEN IS RECEIVED IN THREE CONTAINERS LABELED WITH THE PATIENT'S NAME MADISON WEINBERG . 1. ??LABELED BIOPSY OF SMALL BOWEL NODULE/LESION . ??THE SPECIMEN CONSISTS OF A BRASWELL-JOSEPH IRREGULARLY SHAPED FRAGMENT OF SOFT TISSUE WHICH MEASURES 0.5 X 0.2 X 0.3 CM. ??THE SPECIMEN IS ALL SUBMITTED IN A SINGLE CASSETTE LABELED A. 2. ??LABELED BIOPSY PELVIC SIDE WALL . ??THE SPECIMEN CONSISTS OF A SINGLE IRREGULAR FRAGMENT OF MOTTLED BRASWELL TO DARK BROWN SOFT TISSUE WHICH MEASURES 0.8 X 0.7 X 0.4 CM. IT IS SUBMITTED IN ITS ENTIRETY LABELED B. 3. LABELED PERITONEAL BIOPSY . THE SPECIMEN CONSISTS OF A SINGLE BRASWELL-JOSEPH SOFT TISSUE FRAGMENT WHICH MEASURES 0.4 X 0.1 X 0.1 CM. THE SPECIMEN IS ALL SUBMITTED IN A CASSETTE LABELED C. TERRA/VIRGILIO MICROSCOPIC EXAM ? MICROSCOPIC ?? 1-3. SECTIONS LABELED A REVEALS FIBROCOLLAGENOUS TISSUE FRAGMENTS, AREAS OF HYALINIZATION, CHRONIC INFLAMMATION AND FOREIGN BODY GIANT CELL REACTION. ??ENDOMETRIOSIS IS NOT SEEN. ??SECTION B REVEALS FIBROCOLLAGENOUS TISSUE FRAGMENTS SHOWING AREAS OF FIBROSIS, FOREIGN BODY GIANT CELL REACTION AND CHRONIC INFLAMMATION. NO ENDOMETRIOSIS IS SEEN. SECTIONS LABELED C REVEALS FIBROCOLLAGENOUS TISSUE FRAGMENTS SHOWING AREAS OF FIBROSIS, FAT NECROSIS AND FOREIGN BODY GIANT CELL REACTION. ?? DIAGNOSIS ? DIAGNOSIS ?? [1] ??BIOPSY, SMALL BOWEL NODULES/LESIONS -- ?? FIBROSIS, CHRONIC INFLAMMATION AND FOREIGN BODY GIANT CELL ? REACTION [2] PELVIC SIDE WALL, BIOPSY -- ?? FIBROSIS, CHRONIC INFLAMMATION AND FOREIGN BODY GIANT CELL ? REACTION [3] PERITONEAL BIOPSY -- ?? FIBROSIS, FAT NECROSIS, AND FOREIGN BODY GIANT CELL REACTION SR/KA [id number] Released By ?LINDA VICENTE MISCELLANEOUS SAMPLES / Unknown 10/14/1999 8:35 AM BATTERY VENT PLUG INSERTER 10/14/1999 8:37 AM BATTERY VENT PLUG INSERTER Historical Provider LAB - PATHOLOGY/C YTOLOGY ORDERABLES Care Teams Computer Mechanic Relationship Specialty Start Date End Date Fernando Chavez MD [address] [place] [address] PCP - General Family Medicine 09/06/23
--- OUTSIDE RECORDS SUMMARY | 2024-08-08 16:01 | XMS_ITS | Encounter Summary ---
Author Organization [facility] Address [address] [facility] [place] [address] Care Team Providers Care Shoe Lining Fitter Name Role Phone Fernando Chavez MD Primary Care Provider [phone] Reason for Referral * Evaluate & Treat (Routine) - Closed Specialty Diagnoses / Procedures Referred By Susan t Referred To Contact Vascular Surgery Diagnoses Subclavian artery stenosis, right (HCC) Mark Salmeron MD [address] [facility] 2[address] DIV [place] [address] [facility] [facility] [place] [address] Referral ID Status Reason Start Date Expiration Date V isits Requested Visits Authorized [id number] Closed Specialty Services Required 10/18/2023 10/17/2024 1 1 Y AND PATCH WORKER Encounter Details Date Type Department Care Team (Late st Contact Info) Description 10/18/2023 11:30 AM PUTTY AND PATCH WORKER Office Visit [facility] - Neurology [address] [facility] [place] [address] Timi Mills MD [address] [place] [address] Subclavian artery stenosis, right (HCC) (Primary Dx) [...] Sign Reading Time Taken Comments Blood Pressure 130/84 10/18/2023 11:11 AM PUTTY AND PATCH WORKER Pulse 111 10/18/2023 11:11 AM PUTTY AND PATCH WORKER Temperature - - Respiratory Rate 10 10/18/2023 11:11 AM PUTTY AND PATCH WORKER Oxygen Saturation - - Inhaled Oxygen Concentration - - Weight 48.5 kg (107 lb) 10/18/2023 11:11 AM PUTTY AND PATCH WORKER Height 162.6 cm (5' 4 ) 10/18/2023 11:11 AM PUTTY AND PATCH WORKER Body Mass Index 18.37 10/18/2023 11:11 AM PUTTY AND PATCH WORKER documented in this encounter Functional Status Functional [...] No 09/27/2023 documented as of this encounter Patient Instructions * Patient Instructions* Jacque Peck MD - 10/18/2023 11:38 AM PUTTY AND PATCH WORKER Dear Madison Weinberg, Today you saw Dr. Jacque Peck and Dr. Timi Mills at the [facility]. During today's visit we discussed: subclavian steal syndrome The plan going forward is: - referral placed to Vascular Surgery with Dr. Salmeron We would highly recommend using My Chart to communicate with us and to have access to your medical records. Instructions on how to sign up for My Chart can be found at: [email or web address]. Select the [facility] and then select [facility]. If you have any questions regarding the plan discussed in clinic today please call [facility] office phone . Sincerely, Jacque Peck MD, PhD Timi Mills MD Vascular & Interventional Neurology [facility] Y AND PATCH WORKER documented in this encounter Progress Notes * Jacque Peck MD - 10/18/2023 11:27 AM CST Images from the original note were not included. Vascular Neurology Clinic Visit Note Date of Encounter: 10/18/2023 Chief Complaint: left arm numbness HPI: Madison Weinberg is a 57 year old woman presents to clinic following hospital discharge for evaluation of transient left arm numbness in the setting of known right subclavian artery stenosis. She underwent inpatient angiogram to determine degree of stenosis. States that in the interval period shehas had episodic left arm weakness usually in the setting of increased activity. Review of Systems: A 10-pt ROS was performed. Pertinent negatives include no speech difficulty, no visual disturbances, no vertigo, and no difficulty with gait. All other systems were reviewed and negative. Allergies: Allergies Allergen Reactions ??? Diphenhydramine Unknown ??? Duloxetine Other Altered mentation ??? Gabapentin Other confusion ??? Sertraline Other confusion ??? Bupropion Unknown ??? Codeine Itching ??? Skin Adhesives Skin Reactions ??? Paroxetine Other Home Medications: Current Outpatient Medications Medication Sig [...] No current facility-administered medications for this visit. PMH: Past Medical History: Diagnosis Date ??? Anemia ??? Anxiety ??? Dementia ([facility]) early onset per patient ??? Difficult intravenous access use sonasite ??? DVT (deep venous thrombosis) ([facility]) 2019 RLL ??? Endometriosis ??? GERD (gastroesophageal reflux disease) ??? PONV (postoperative nausea and vomiting) ??? TIA (transient ischemic attack) 08/2023 L sided residual ??? Trigeminal neuralgia Family History: Family History Problem Relation Name Age of Onset ??? Diabetes; unknown type Mother ??? CAD (Coronary Artery Disease) Mother ??? Hypertension Mother ??? Hypertension Father ??? CAD (Coronary Artery Disease) Father Social History: Social History Socioeconomic History ??? Marital status: Spouse name: Not on file ??? Number of children: Not on file ??? Years of education: Not on file ??? Highest education level: Not on file Occupational History ??? Not on file Tobacco Use ??? Smoking status: Former Types: Cigarettes ??? Smokeless tobacco: Never Vaping Use ??? Vaping Use: Never used Substance and Sexual Activity ??? Alcohol use: Yes Comment: occasionally ??? Drug use: Yes Types: Other, Marijuana Comment: [facility] for pain management ??? Sexual activity: Not on file Other Topics Concern ??? Not on file Social History Narrative ??? Not on file Social Determinants of Health Financial Resource Strain: Not on file Food Insecurity: Not on file Transportation Needs: Not on file Stress: Not on file Housing Stability: Not on file Objective: Vitals: 10/18/23 1111 BP: 130/84 Pulse: (!) 111 Resp: 10 Weight: 48.5 kg (107 lb) Height: 1.626 m (5' 4 ) Neurological Examination: - Mental status: Patient is alert and oriented to time, place, person and situation. - Speech: Fluent, with normal naming, comprehension, articulation and repetition - CN II-XII: intact throughout - Motor: Normal tone and bulk. 5/5 on all extremities - Sensory: intact light touch. - Coordination/ fine movement: normal finger to nose - Gait: normal. Assessment: Mdaison Weinberg is a 57 year old woman with transient left arm sensorimotor deficits in the setting of known right subclavian artery stenosis. She underwent inpatient angiogram to determine degreeof stenosis which revealed severe (90%) flow-limiting proximal R subclavian artery stenosis. Also demonstrated is focal non-flow limiting narrowing at the left ICA bulb. She does remain symptomatic in the setting of increased activity. Interdisciplinary discussion with Vascular Surgery to determinetreatment plan. We will call her next week once follow-up date has been scheduled. Plan: - Ref to Vascular Surg - [facility]; Future - continue with anti-platelet for extra-cranial ICA atherosclerosis - follow-up with PCP Patient was seen and discussed with staff Vascular Neurologist, Dr. Soham Mills M.D. Jacque Peck MD, PhD Vascular and Interventional Neurology Fellow Associated attestation - Timi Mills MD - 11/08/2023 8:38 AM CDT I saw and examined the patient with the Fellow. I have verified all details of the Fellow's note and agree with the Fellow's documentation with additions and modifications as listed below. I personally participated in reviewing the chart, review of tests, obtaining and/or reviewing the separately obtained history, performing a medically necessary and appropriate examination and evaluation, counseling and educating the patient/family/caregiver, ordering medications, tests, or procedures, documenting in the patient record, and communicating results to the patient/family/caregiver. I carried out a separate interpretation of all neurovascular studies and discussed them with the patient in front of a screen with the relevant images displayed. The findings are suggestive of a higher than normal risk of cerebrovascular complications and disability. This was outlined in detail to the patient. In collaboration with Dr. Salmeron we are looking for the best plan for revascularization. She does not have an appointment but we have made the referral. Timi Mills MD documented in this encounter Plan of Treatment Scheduled Referrals Name Type Priority Associated Diagnoses Order Schedule Ref to Vascular Surg - [facility] Outpatient Referral Routine Subclavian artery stenosis, right (HCC) 1 Occurrences starting 10/18/2023 until 10/17/2024 documented as of this encounter Visit Diagnoses Diagnosis Subclavian artery stenosis, right (HCC)- Primary Atherosclerosis of other specified arteries documented in this encounter Care Teams Shoe Lining Fitter Relationship Specialty Start Date End Date Fernando Chavez MD [address] [place] [address] PCP - General Family Medicine 09/06/23 documented as of this encounter
--- OUTSIDE RECORDS SUMMARY | 2024-08-08 16:01 | XMS_ITS | Encounter Summary ---
Author Organization [facility] Address [address] [facility] [place] [address] Care Team Providers Care Dental Assistant Name Role Phone Fernando Chavez MD Primary Care Provider Reason for Referral * OP/Amb RFL Auth (Emergency) - Pending Review Specialty Diagnoses / Procedures Referred By Contmerissa t Referred To Contact Surgery-General Diagnoses Pre-op evaluation Procedures EKG 12-LEAD Sukh Francisco APRN-CNP [address] [facility] [place] [address] [facility] [address] [place] [address] Referral ID Status Reason Start Date Expiration Date V isits Requested Visits Authorized [id number] Pending Review 09/18/2023 09/17/2024 1 1 DENSITY TECHNICIAN Encounter Details Date Type Department Care Team (Latest Contact Info) Description 09/18/2023 1:30 PM BONE DENSITY TECHNICIAN - 09/18/2023 2:37 PM BONE DENSITY TECHNICIAN Hospital Encounter [facility] PAT [address] [place] [address] Timi Mills MD [address] [place] [address] Neurology Discharge Disposition: Home or Self Care Anesthesia Record Procedure Summary Procedure Name Responsible Anesthesiologist Anesthesia Start Time Anesthesia Stop Time [facility] IR CAROTID ANGIO OR STENT W ANES (canceled) Events No events on file. Meds * Agents No agents on file. * Blood No blood administrations on file. Lines, Drains, and Airways No LDAs on file. documented in this encounter Social History Tobacco Use Types Packs/Day Years [...] Sign Reading Time Taken Comments Blood Pressure 134/85 09/18/2023 2:01 PM BONE DENSITY TECHNICIAN Pulse 93 09/18/2023 2:01 PM BONE DENSITY TECHNICIAN Temperature 36.9 ??C (98.5 ??F) 09/18/2023 2:01 PM CS T Respiratory Rate 16 09/18/2023 2:01 PM BONE DENSITY TECHNICIAN Oxygen Saturation 100% 09/18/2023 2:01 PM BONE DENSITY TECHNICIAN Inhaled Oxygen Concentration - - Weight 48.4 kg (106 lb 12.8 oz) 09/18/2023 2:01 PM BONE DENSITY TECHNICIAN Height 162.6 cm (5' 4 ) 09/18/2023 2:01 PM BONE DENSITY TECHNICIAN Body Mass Index 18.33 09/18/2023 2:01 PM BONE DENSITY TECHNICIAN documented in this encounter Functional Status Functional [...] as of this encounter Plan of Treatment Scheduled Orders Name Type Priority Associated Diagnoses Orde r Schedule EKG 12-LEAD ECG STAT Pre-op evaluation Ordered: 09/18/2023 documented as of this encounter Procedures Procedure Name Priority Date/Time Associated Diagnosis Comments PTT [facility] STAT 09/18/2023 3:03 PM BONE DENSITY TECHNICIAN Pre-op evaluation PT-INR [facility] STAT 09/18/2023 3:03 PM BONE DENSITY TECHNICIAN Pre-op evaluation documented in this encounter Results * PT-INR [facility] (09/18/2023 3:03 PM BONE DENSITY TECHNICIAN) Pathologist [facility] PT 13.2 12.1 - 14.8 Seconds 09/18/2023 3:41 PM BONE DENSITY TECHNICIAN [facility] LABORATORY [facility] INR 1.0 See Comment 09/18/2023 3:41 PM BONE DENSITY TECHNICIAN [facility] Comment:The suggested therap eutic range for standard coumadin (warfarin) therapy is an INR of 2.0-3.0. For high-risk patients (Mechanical Mitral Valve Prosthesis, etc.), the suggested prophylactic therapeutic range is an INR of 2.5-3.5. Blood BLOOD SPECIMEN / Unknown Lab Venipuncture / Unknown 09/18/2023 3:03 PM BONE DENSITY TECHNICIAN 09/18/2023 3:08 PM BONE DENSITY TECHNICIAN Sukh Francisco STAFF MIDWIFE/APPRENTICESHIP DIRECTOR-MECHANIC/WELDER LAB - COAGULA TION ORDERABLES [address] [address], [facility] [phone] * PTT [facility] (09/18/2023 3:03 PM BONE DENSITY TECHNICIAN) [facility] APTT 30.6 23.0 - 38.4 Seconds 09/18/2023 3:41 PM BONE DENSITY TECHNICIAN [facility] Comment:Suggested therapeuti c range for full dose I.V. unfractionated heparin therapy for venous thromboembolism is 71 to 109 seconds. Blood BLOOD SPECIMEN / Unknown Lab Venipuncture / Unknown 09/18/2023 3:03 PM BONE DENSITY TECHNICIAN 09/18/2023 3:08 PM BONE DENSITY TECHNICIAN Sukh Francisco STAFF MIDWIFE/APPRENTICESHIP DIRECTOR-MECHANIC/WELDER LAB - COAGULA TION ORDERABLES [address] [address], [place] [phone] * TYPE + SCREEN PANEL (09/18/2023 3:03 PM BONE DENSITY TECHNICIAN) [facility] Antibody Screen NEG 4 4:18 PM BONE DENSITY TECHNICIAN [facility] BLOOD BANK LAB ABO Rh A NEG 09/18/2023 4:18 PM BONE DENSITY TECHNICIAN [facility] BLOOD BANK LAB Blood Bank BLOOD SPECIMEN / Unknown Lab Venipuncture / Unknown 09/18/2023 3:03 PM BONE DENSITY TECHNICIAN 09/18/2023 3:16 PM BONE DENSITY TECHNICIAN Nutressa A Francisco STAFF MIDWIFE/APPRENTICESHIP DIRECTOR-MECHANIC/WELDER LAB - BLOOD B ANK ORDERABLES Performing Organization Address City/[facility] Co de Phone Number [facility] BLOOD BANK LAB [address] [place] [address], [facility] [phone] documented in this encounter Visit Diagnoses Diagnosis Pre-op evaluation- Primary Preoperative examination, unspecified documented in this encounter Care Teams Dental Assistant Relationship Specialty Start Date End Date Fernando Chavez MD [address] [place] [address] PCP - General Family Medicine 09/06/23 documented as of this encounter
--- OUTSIDE RECORDS SUMMARY | 2024-08-08 16:01 | XMS_ITS | Encounter Summary ---
Author Organization [facility] Address [address] [place] [address] Care Team Providers Care Purse Seiner Name Role Phone Fernando Chavez MD Primary Care Provider [phone] Encounter Details Date Type Department Care Team (Latest Contact Info) Description 09/18/2023 Travel Social History Tobacco Use Types Packs/Day Years [...] Yes 09/06/2023 documented as of this encounter Plan of Treatment Not on file documented as of this encounter Visit Diagnoses Not on filedocumented in this encounter Care Teams Purse Seiner Relationship Specialty Start Date End Date Fernando Chavez MD [address] [place] [address] PCP - General Family Medicine 09/06/23 documented as of this encounter
--- OUTSIDE RECORDS SUMMARY | 2024-08-08 16:01 | XMS_ITS | Encounter Summary ---
Author Organization [facility] Address [address] [facility] [place] [address] Care Team Providers Care Senior Cisco Network Engineer Name Role Phone Fernando Chavez MD Primary Care Provider Encounter Details Date Type Department Care Team (Latest Contact Info) Description 09/24/2023 Travel Social History Tobacco Use Types Packs/Day [...] on filedocumented in this encounter Care Teams Senior Cisco Network Engineer Relationship Specialty Start Date End Date Fernando Chavez MD [address] [place] [address] PCP - General Family Medicine 09/06/23 documented as of this encounter
--- OUTSIDE RECORDS SUMMARY | 2024-08-08 16:01 | XMS_ITS | Encounter Summary ---
Author Organization [facility] Address [address] [facility] [place] [address] Care Team Providers Care Pension Manager Name Role Phone Fernando Chavez MD Primary Care Provider Encounter Details Date Type Department Care Team (Latest Contact Info) Description 11/14/2023 Travel Social History Tobacco Use Types Packs/Day [...] on filedocumented in this encounter Care Teams Pension Manager Relationship Specialty Start Date End Date Fernando Chavez MD [address] [place] [address] PCP - General Family Medicine 09/06/23 documented as of this encounter
--- OUTSIDE RECORDS SUMMARY | 2024-08-08 16:01 | XMS_ITS | Clinical Summary ---
Author Organization [facility] Address [address] [place] [address] Care Team Providers Care Housekeeping Coordinator Name Role Phone Fernando Chavez MD Primary Care Provider Source Comments [facility],non-owned Affiliates and Associated Physician Practices is amultiple site organization consisting of ambulatory clinics and hospital sitesin [place], [place], [place] and [place]. This disclosure is being madepursuant to the Care Everywhere program and may not contain all information available regarding this patient. Last updated 18.[facility] Allergies Active Allergy Reactions Criticality Noted Date Comments Bupropion Unknown 09/06/2023 Codeine Itching 09/06/2023 Diphenhydramine Unknown 09/06/2023 Duloxetine Other 09/06/2023 Altered mentation Gabapentin Other 09/06/2023 confusion Paroxetine Other Low 04/19/2020 Sertraline Other 09/06/2023 confusion Skin Adhesives Skin Reactions 09/27/2023 Medications * Be aware that medications may not be up to date on this document. Alwaysverify current medications with the patient. Medication Sig Dispensed Refills Start Date End Date Status ondansetron (Zofran) 8 MG tablet Take 1 (one) tablet by mouth every 6 hours as needed for Nausea/Vomiting Active traZODone (Desyrel) 100 MG tablet Take 1.5 (one and one-half) tablets by mouth nightly as needed for Insomnia Active clonazePAM (KlonoPIN) 0.5 MG tablet Take 1 (one) tablet by mouth 3 times daily Active aspirin (Aspirin) 81 MG chew tablet Take 1 (one) tablet by mouth once daily 30 tablet 3 09/08/2023 Active clopidogrel (plaVIX) 75 MG tablet Take 1 (one) tablet by mouth once daily 30 tablet 3 09/08/2023 Active vitamin E (Tocopheryl) 100 UNIT capsule Take by mouth once daily Active cyclobenzaprine (Flexeril) 10 MG tablet Take 1 (one) tablet by mouth 3 times daily as needed for Muscle Spasms Active senna (Senokot) 8.6 MG tablet Take by mouth once daily Active Active Problems Problem Noted Date Diagnosed Date Subclavian artery stenosis, right 09/27/2023 Numbness in left leg 09/27/2023 Left arm numbness 09/27/2023 Weakness of left side of body 09/27/2023 Slurred speech 09/24/2023 Left renal stone 09/06/2023 Anxiety 09/06/2023 Abdominal tenderness in left flank 09/06/2023 Ischemic stroke 09/04/2023 Encounters Date Type Department Care Team Description 05/15/2024 10:00 AM CDT Video Visit [facility] - Neurology [address] [place] [id number] Timi Mills MD Subclavian artery stenosis, right (HCC) from Last 3 Months Family History Medical History Relation Name Comments CAD (Coronary Artery Disease) Father Hypertension Father CAD (Coronary Artery Disease) Mother Diabetes; unknown type Mother Hypertension Mother Relation Name Status Comments Father Mother Social History Tobacco Use Types Packs/Day Years [...] Respiratory Rate 10 10/18/2023 11:1 1 AM FIELD HAND Oxygen Saturation 98% 11/14/2023 3:18 PM CDT Inhaled Oxygen Concentration - - Weight 51.6 kg (113 lb 12.8 oz) 11/14/2023 3:18 PM CDT Height 162.6 cm (5' 4 ) 11/14/2023 3:18 PM CDT Body Mass Index 19.53 11/14/2023 3:18 PM CDT Plan of Treatment Health Maintenance Due Date Last Done Comments COLOGUARD (AGES 45-75) - COL ON CA SCREENING 1965 COLON MONITORING 1965 COLONOSCOPY - COLON CA SCREENING 1965 CT COLONOGRAPHY - COLON CA SCREENING 1965 Colorectal Cancer Screening 1965 FIT - COLON CA SCREENING 1965 FLEX SIG - COLON CA SCREENING 1965 PAP SMEAR 1965 HIV SCREENING 1980 HEPATITIS C SCREENING 11/30/1983 DTAP/TDAP/TD VACCINES (1 - Tdap) 1984 HEPATITIS B VACCINE (1 of 3 - 19+ 3-dose series) 1984 ZOSTER VACCINE (1 of 2) 12/05/2015 MAMMOGRAM 07/07/2016 07/07/2014 MEDICARE AWV ? CALENDAR YEAR 2023 COVID-19 VACCINE (1 - 2023-2 5 season) 2024 INFLUENZA VACCINE (#1) 2024 05/25/2008 LIPID TESTING 09/06/2028 09/06/2023 DEPRESSION SCREENING Completed 09/04/2023 HIB VACCINE Aged Out No longer eligi ble based on patient's age to complete this topic HPV VACCINE Aged Out No longer eligi ble based on patient's age to complete this topic MENINGOCOCCAL VACCINE Aged Out No lia avni eligible based on patient's age to complete this topic PNEUMOCOCCAL VACCINE Aged Out No long er eligible based on patient's age to complete this topic Procedures Procedure Name Priority Date/Time Associated Diagnosis Comments LIPID PROFILE Routine 09/06/2023 1:46 AM FIELD HAND from Last 3 Months or Most Recently Relevant to Health Maintenance Results * LIPID PROFILE (09/06/2023 1:46 AM FIELD HAND) Cholesterol Total 144 <200 mg/dL 09/06/2023 3:28 AM [facility] HDL 42 >40 mg/dL 09/06/2023 3:28 AM [facility] Comment: ATP III Classification of HDL Cholesterol: ? <40 mg/dL: ??Considered a major risk factor. ? >60 mg/dL: ??Considered a negative risk factor. ? LDL Calculated 86 <100 mg/dL 09/06/2023 3:28 AM [facility] Comment: ATP III Classification of LDL Cholesterol: ?<100 mg/dL: ??Optimal ? 100 - 129 mg/dL: ??Near Optimal/Above Optimal ? 130 - 159 mg/dL: ??Borderline High ? 160 - 189 mg/dL: ??High ?>190 mg/dL: ??Very High ? Triglycerides 79 <150 mg/dL 09/06/2023 3:28 AM [facility] Comment: ATP III Classification of Triglycerides: ?<150 mg/dL: ??Normal ? 150 - 199 mg/dL: ??Borderline High ? 200 - 400 mg/dL: ??High ?>500 mg/dL: ??Very High Blood BLOOD SPECIMEN / Unknown Lab Venipuncture / Unknown 09/06/2023 1:46 AM FIELD HAND 09/06/2023 2:51 AM FIELD HAND Timi Mills MD LAB - CHEMISTRY ORD ERABLES [facility] [address] [place] [address], [facility] [phone] from Last 3 Months or Most Recently Relevant to Health Maintenance Advance Directives Documents on File Type Date Recorded Patient Mail Distribution Clerk Expl anation Adv Directive/Living Will/POA 09/09/2023 12:24 PM * LIMITED RESUSCITATION-PRIOR AND AFTER ARREST (Latest Code Status on File) Date Activated Date Inactivated Comments 09/06/2023 1:33 AM 09/07/2023 6:35 PM Question Answer Comments Limited Resuscitation: No Intubation, No Invasiv e Ventilation Care Teams Housekeeping Coordinator Relationship Specialty Start Date End Date Fernando Chavez MD [address] [place] [address] PCP - General Family Medicine 09/06/23
--- OUTSIDE RECORDS SUMMARY | 2024-08-08 16:01 | XMS_ITS | Referral Summary ---
Author Organization [facility] Address [address] [place] [address] Care Team Providers Care Plant Nursery Worker Name Role Phone Fernando Chavez MD Primary Care Provider [phone] Source Comments [facility],non-owned Affiliates and Associated Physician Practices is amultiple site organization consisting of ambulatory clinics and hospital sitesin [place], [place], [place] and [place]. This disclosure is being madepursuant to the Care Everywhere program and may not contain all information available regarding this patient. Last updated 18.[facility] Encounters Date Type Department Care Team Description 05/15/2024 10:00 AM CDT Video Visit [facility] - Neurology [facility] [place] [address] Timi Mills MD Subclavian artery stenosis, right (HCC) from Last 3 Months Allergies Active Allergy Reactions Criticality Noted Date [...] Respiratory Rate 10 10/18/2023 11:1 1 AM PLANNING DIRECTOR Oxygen Saturation 98% 11/14/2023 3:18 PM CDT Inhaled Oxygen Concentration - - Weight 51.6 kg (113 lb 12.8 oz) 11/14/2023 3:18 PM CDT Height 162.6 cm (5' 4 ) 11/14/2023 3:18 PM CDT Body Mass Index 19.53 11/14/2023 3:18 PM CDT Functional Status Functional Status Response Date of [...] person have difficulty concentrating/remembering/making decisions? No 09/27/2023 Plan of Treatment Not on file Procedures Procedure Name Priority Date/Time Associated Diagnosis Comments LIPID PROFILE Routine 09/06/2023 1:46 AM PLANNING DIRECTOR from Last 3 Months or Most Recently Relevant to Health Maintenance Results * LIPID PROFILE (09/06/2023 1:46 AM PLANNING DIRECTOR) Cholesterol Total 144 <200 mg/dL 09/06/2023 3:28 AM [facility] HDL 42 >40 mg/dL 09/06/2023 3:28 AM [facility] Comment: ATP III Classification of HDL Cholesterol: ? <40 mg/dL: ??Considered a major risk factor. ? >60 mg/dL: ??Considered a negative risk factor. ? LDL Calculated 86 <100 mg/dL 09/06/2023 3:28 AM [facility] Comment: ATP III Classification of LDL Cholesterol: ?<100 mg/dL: ??Optimal ? 100 - 129 mg/dL: ??Near Optimal/Above Optimal ? 130 - 159 mg/dL: ??Borderline High ? 160 - 189 mg/dL: ??High ?>190 mg/dL: ??Very High ? Triglycerides 79 <150 mg/dL 09/06/2023 3:28 AM PLANNING DIRECTOR [facility] Comment: ATP III Classification of Triglycerides: ?<150 mg/dL: ??Normal ? 150 - 199 mg/dL: ??Borderline High ? 200 - 400 mg/dL: ??High ?>500 mg/dL: ??Very High Blood BLOOD SPECIMEN / Unknown Lab Venipuncture / Unknown 09/06/2023 1:46 AM PLANNING DIRECTOR 09/06/2023 2:51 AM PLANNING DIRECTOR Timi Mills MD LAB - CHEMISTRY ORD ERABLES Performing Organization Address City/State/[facility] Co de Phone Number [facility] [address] [place] [address], [facility] [phone] from Last 3 Months or Most Recently Relevant to Health Maintenance Advance Directives Documents on File Type Date Recorded Patient Ruching Machine Operator Expl anation Adv Directive/Living Will/POA 09/09/2023 12:24 PM * LIMITED RESUSCITATION-PRIOR AND AFTER ARREST (Latest Code Status on File) Date Activated Date Inactivated Comments 09/06/2023 1:33 AM 09/07/2023 6:35 PM Question Answer Comments Limited Resuscitation: No Intubation, No Invasiv e Ventilation Care Teams Plant Nursery Worker Relationship Specialty Start Date End Date Fernando Cahvez MD [address] [place] [address] PCP - General Family Medicine 09/06/23
--- OUTSIDE RECORDS SUMMARY | 2024-08-08 16:01 | XMS_ITS | Encounter Summary ---
Author Organization [facility] Address [address] [place] [address] Care Team Providers Care Hangar Attendant Name Role Phone Fernando Chavez MD Primary Care Provider + [phone] Encounter Details Date Type Department Care Team (Late st Contact Info) Description 09/26/2023 11:59 PM HEAD WOOD GRINDER Anesthesia Event [facility] EMERGENCY DEPARTMENT [address] [place] [address] Sukh Francisco, AMBULANCE DRIVER-STITCH BONDING MACHINE DRAWER IN [address] [facility] [place] [phone] Anesthesia Record Procedure Summary Procedure Name Responsible Anesthesiologist Anesthesia Start Time Anesthesia Stop Time [facility] IR CAROTID ANGIO OR STENT W ANES [...] Yes 09/06/2023 documented as of this encounter Progress Notes * Sukh Francisco APRN-TIERRA - 09/18/2023 2:08 PM CST ANESTHESIA PREOPERATIVE EVALUATION NOTE Procedure: IR CAROTID OR VERTEBRAL STENT Vitals: Patient Vitals for the past 6 hrs: BP Temp Pulse Resp SpO2 09/18/23 1401 134/85 98.5 ??F (36.9 ??C) 93 16 100 % LMP: No LMP recorded. Patient has had a hysterectomy. OB Status: Hysterectomy ANESTHESIA PRE-EVALUATION NOTE History of Present Illness: 57 year old female with a PMHx of Dementia (early per pt), lap Endometriosis (s/p 36 abd surgeries), Nephrolithiasis (flomax), Underweight (BMI 17.68), Ischemic stroke (09/04/2023 left weakness), Anxiety, Anemia, DVT, Trigeminal neuralgia and Subclavian artery stenosis, right. She is scheduled for an IR Carotid or Vertebral Stent. Allergies: Diphenhydramine, Duloxetine, Gabapentin, Sertraline, Bupropion, Codeine The patient is a current smoker (marijuana, cigarettes). Physical Exam: Orientation X3 Airway/Mallampati Score: II Mouth Opening Distance: 2.5 fingerwidths Neck ROM: full TM Distance: > 3 FB Teeth: dentures/partials upper and dentures/partials lower Heart: normal - S1 S2 Lungs: clear to ausculation bilaterally Abdomen Exam: normal Physical Exam Additional Comments: She can walk 3-4 blocks without cp or sob Review of Systems: History of anesthetic complications: Yes Sleep Apnea Risk: No Malignant Hyperthermia: No PONV: Yes, personal history Difficult IV Access: Yes GERD: Yes, well controlled Poor Exercise Tolerance: No Recent Chest Pain: No Shortness of Breath: No AICD/Pacemaker: No Renal Disease: Yes (Nephrolithiasis) Diagnostic Tests: ECG(s) reviewed: Yes (09/18/2023 NSR 72 bpm) Echo(s) reviewed: Yes. Stress Test(s) reviewed: Yes (01/16/2021 ). Lab(s) reviewed: Yes ( grossly wnl). Other Findings: 09/07/2023 MRI Brain IMPRESSION: ?? 1.No evidence of restricted diffusion to suggest an acute infarction. 2.Fundus examination is recommended to exclude papilledema and/or the possibility of idiopathic intracranial hypertension (IIH), in the appropriate clinical setting 09/06/2023 CT Angio IMPRESSION: ?? 1. No acute intracranial hemorrhage. ?? 2. No large arterial occlusions or significant stenoses identified in the head or neck. Scattered atherosclerotic disease in the neck arteries. ?? 3. 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 01/16/2021 Stress Test 1. ??Normal pharmacologic-stress and rest myocardial perfusion. 2. ??Normal left ventricular size and systolic function. Start of PAT Evaluation: - if BP is poorly controlled (eg SBP >180 or DBP >110) then contact Dr. Marrufo or AIC - if patient taking KEIKO-I or ARB or Entresto then hold ONLY AM dose on DOS unless severe CHF or poorly controlled HTN This evaluation was based on PAT clinic visit I. Perioperative Cardiac Risk Index Stratification based on 2014 ACC/AHA Guidelines for patients undergoing noncardiac surgery Perioperative risk of a Major Adverse Cardiac Event (MACE) during hospitalization. Add one point (0-6) for each positive RCRI (Revised Cardiac Risk Indicator) 1. Is the Surgical Procedure High-Risk? Yes Carotid Stent 2. History of Ischemic Heart Disease? NO If yes then paste summary of most recent cath / stress tests under Other Additional Findings/Comments section above: 3. History of CHF? no If yes then paste summary of most recent TTE / CELE under Other Additional Findings/Comments sectionabove: Murmur? no if yes and without recent echocardiogram then may need TTE contact Dr. Marrufo or WILFREDO 4. History of Cerebrovascular Disease? Prior TIA or stroke yes TIA 09/06/2023 left side weakness If yes then paste summary of most any relevant neurovascular imaging or carotid duplex results under Other Additional Findings/Comments section above: Carotid bruit? no if yes then may need carotid duplex - contact Dr. Marrufo or WILFREDO 09/06/2023 Echocardiogram ??? Left??Ventricle: Left ventricle size is normal. Mildly increased wall thickness. Ventricular mass is normal. Findings consistent with concentric remodeling. Normal systolic function. EF by 2D Ortega biplane is 64%. Normal wall motion. Unable to assess diastolic function. ??? Right??Ventricle: Right ventricle size is normal. Normal systolic function. ??? Bubble study could not be performed as patient did not have an iv line. 5. Insulin-Dependent Diabetes? no No results for input(s): HGBA1C , A1C , [id number] , EAG inthe last 16750 hours. Insulin pump? no if yes then patient was instructed to continue at 75% basal rate on DOS, AND 1164 placed? no If insulin pump then need to document insulin type unknown n/a If insulin type is not known then pump MUST be turned off for DOS Long acting insulin: glargine (Lantus,Toujeo, Basaglar), detemir (Lemenir), degludec (Tresiba) NO 6. Preoperative Creatinine > 2 mg/dl? no Baseline Cr? 0.88 Total RCRI / MACE score 2 Points >= 6.6% Functional capacity > 4 METS? no If MACE < 1%, no further testing required. Proceed to surgery. Patient is at low risk of MACE. If MACE > 1% Elevated risk. Need to assess the patient's functional capacity. 4 METs = Can walk up a flight of steps or a hill or walk on level ground at 3 mph If > 4 METs. Proceed to surgery. If < 4 METs or unknown functional capacity then discuss with attending, as further workup may beindicated. II. Consults: NO Copy and paste relevant results Follow up N/A III. CIEDs: Does patient have a CIED (cardiovascular implantable electronic device eg: PM, AICD)? no If yes then copy and paste interrogation report here. Timing of interrogation should be within 1 year for PM and Within 6 months for AICD [place] Information needed (cabin cleaning supervisor, mode, indication for CIED, battery life, magnet function): IV. Anticoagulants: Are they receiving antiplatelet/anticoagulant medications (besides ASA)? What is the periop plan? YES - plan is to Plavix and Asa 81 mg instructions per IR Follow up N/A V. Previous blood transfusion? yes If potential for large EBL: then obtain 1st T&S in PAT clinic (unless previously done and no transfusions since). Order repeat T&S (aka re-type) for DOS :If chart review only and h/o previous transfusions without recent T&S, then need to come in for T&S as above and order retype for DOS Patients with previous transfusions may have developed alloantibodies to donor RBC surface antigens, which may cause hemolytic or delayed hemolytic transfusion reactions upon subsequent exposure to donor PRBCs. VII. Known SHEILA or STOP-BANG> 5: no Snoring, Tired, Observed apnea, high blood Pressure, BMI>35, Age>50, Neck circumference>18 If yes then: update Ikro problem list to include: SHEILA If patient has already diagnosed SHEILA and is being admitted then initiate order set: SHEILA --> Pul Inpatient Sleep Apnea Standing orders (order set 4525) 1. Also click Home CPAP for hospital use if applicable. 2. Select Phase of Care under options tab in upper right corner. 3. Choose post-op and sign (not sign and hold) phase of care and select the scheduled procedure. Remind patient to bring home unit if staying overnight. If pt has STOP-BANG >=5 with undiagnosed SHEILA and is being admitted then order: IP Consult to Modern [employer]cer (comment regarding consult for undiagnosed SHEILA) - Follow steps 2 and 3 above If pt has STOP-BANG >=5 with undiagnosed SHEILA and is outpatient and interested in setting up a sleep study then: - send Ikro message to THOMAS and brennon Marrufo Patient was educated about the potential implications of SHEILA on their perioperative course and recommendations for follow-up care were addressed - including inpatient consult(s) as above? no VIII. Known or suspected difficult airway no and complete previous airway management section above If yes then: update Epic problem list to include: difficult airway and call Dr. Yaron or AIC IX. Frailty screen: No data recorded X. Suboxone (Buprenorphine / Naloxone) therapy? N/A GLP-1 Agonists No XI. Most recent EKG: EKG needed within 6 months if: (ASA >= 3 OR any RCRI) AND non-low risk procedure 09/18/2023 NSR 72 bpm QT 408 QTc 446 XI. Additional testing needed within 3 months prior to DOS (if possible, else on DOS): - CBC w/o Diff if ASA >= 3 OR expected blood loss >250 OR previously abnormal - BMP is ASA >= 3 OR taking diuretics, K+ supplements, KEIKO-I, ARBs OR any RCRI - CMP (instead of BMP) for patient with chronic liver disease or previously abnormal - PT/ PTT/ INR if recent use of anticoagulants OR scheduled for major vascular procedures includingaortic and carotid stents / aneurysm coiling / TIPS Additional testing needed on DOS : - EPOC blood glucose for patients w/ DM - EPOC whole blood K+ for patient with ESRD or poorly controlled K+ Labs ordered today including PAT and surgeon orders: PT/INR, PTT and T&S Labs/tests ordered or in need of review on DOS: T&S Summary: Madison Weinberg is a 57 year old female presenting for IR CAROTID OR VERTEBRAL STENT. They have an ASA score of 3 and a RCRI / MACE score of 2 Points >= 6.6% Follow up results - have ALL the above ordered labs and vital signs been reviewed? YES - results are grossly WNL for this patient They ARE OPTIMIZED - PAT EVALUATION COMPLETE Sukh Francisco APRN-TIERRA 09/18/2023 4:04 PM for this procedure. Final clearance pending Storage Battery Inspector evaluation DOS in ACU. Preoperative plan was not discussed w/ PAT attending. To be discussed DOS in ACU. End of PAT Evaluation: ANESTHESIA PLAN ASA Score: 3 BMI, Height, Weight Tobacco History Estimated body mass index is 18.33 kg/m?? as calculated from the following: Height as of this encounter: 1.626 m (5' 4 ). Weight as of this encounter: 48.4 kg (106 lb 12.8 oz). Social History Tobacco Use Smoking Status Former ??? Types: Cigarettes Smokeless Tobacco Never Alcohol History Drug History Social History Substance and Sexual Activity Alcohol Use Yes Comment: occasionally Social History Substance and Sexual Activity Drug Use Yes ??? Types: Other, Marijuana Comment: [facility] for pain management Outpatient Medications: Inpatient Medications: Outpatient Medications Marked as Taking for the 09/18/23 encounter (Hospital Encounter) with [facility] PAT ROOM 1 Medication Sig Last Dose ??? aspirin Take 1 (one) tablet by mouth once daily ??? Biotin Take 1 (one) tablet by mouth once daily ??? clonazePAM Take 1 (one) tablet by mouth 3 times daily ??? clopidogrel Take 1 (one) tablet by mouth once daily ??? cyclobenzaprine Take 1 (one) tablet by mouth 3 times daily ??? docusate sodium Take 1 (one) capsule by mouth once daily ??? magnesium hydroxide Take 15 mL by mouth as needed for Constipation ??? Centrum Take 1 (one) tablet by mouth once daily ??? ondansetron Take 1 (one) tablet by mouth every 6 hours as needed for Nausea/Vomiting ??? polyethylene glycol 3350 Take 17 (seventeen) g by mouth once daily ??? tamsulosin Take 1 (one) capsule by mouth once daily At the same time every day after a meal. ??? traZODone Take 1.5 (one and one-half) tablets by mouth nightly as needed for Insomnia ??? vitamin E Take by mouth once daily No current facility-administered medications for this encounter. Allergies: Allergies Allergen Reactions ??? Diphenhydramine Unknown ??? Duloxetine Other Altered mentation ??? Gabapentin Other confusion ??? Sertraline Other confusion ??? Bupropion Unknown ??? Codeine Itching Relevant Problems Neuro/Psych (+) Ischemic stroke ([facility]) (+) Left renal stone Problem List: Patient Active Problem List Diagnosis Date Noted ??? Left renal stone 09/06/2023 Priority: High ??? Anxiety 09/06/2023 Priority: High ??? Abdominal tenderness in left flank 09/06/2023 Priority: High ??? Ischemic stroke ([facility]) 09/04/2023 Priority: Not Prioritized Medical History: Past Medical History: Diagnosis Date ??? Anemia ??? Anxiety ??? Dementia ([facility]) early onset per patient ??? Difficult intravenous access use sonasite ??? DVT (deep venous thrombosis) ([facility]) 2019 RLL ??? Endometriosis ??? GERD (gastroesophageal reflux disease) ??? PONV (postoperative nausea and vomiting) ??? TIA (transient ischemic attack) 08/2023 L sided residual ??? Trigeminal neuralgia Surgical History: Past Surgical History: Procedure Laterality Date ??? Appendectomy 2006 ??? Breast Biopsy 2000 ??? ENDOMETRIOSIS FULGURATION x21 ??? Hysterectomy 1995 ??? Laparotomy x5 ??? Lithotripsy Bilateral 5 on R, 4 on L ??? Lung Lobectomy Left ??? Small Bowel Resection MARKETING SALES MANAGER Status: No LMP recorded. Patient has had a hysterectomy. Hysterectomy OB History No obstetric history on file. Covid Vaccine: Lab Results: Recent Labs Component Name 09/07/23 1213 SARSCOV2 Not detected Recent Labs Base Name 09/07/23 0841 [id number] SPECIMENTYPE Arterial Recent Labs Component Name 09/07/23 0638 WBC 5.4 RBC 3.76* HCT 33.6* HGB 11.3* PLTCOUNT 265 MCV 89.4 MCH 30.1 MCHC 33.6 MPV 9.8 Recent Labs Component Name 09/06/23 0258 BLOODU Negative WBCU 0-5 NITRITE Negative PROTEINU Negative Recent Labs Component Name 09/07/23 0638 POTASSIUM 3.1* CALCIUM 9.1 CO2 24 GLUCOSE 98 BUN 9 CREATININE 0.88 Recent Labs Component Name 09/07/23 0638 MAGNESIUM 1.6 Recent Labs Component Name 09/07/23 0638 PHOS 3.6 Recent Labs Component Name 09/18/23 1503 PTT 30.6 PT 13.2 INR 1.0 No results found for requested labs within last 120 days. Recent Labs Result Component Current Result Anion Gap 9 (09/07/2023) eGFR by CKD-EPI 77 (L) (09/07/2023) WOOD GRINDER documented in this encounter Plan of Treatment Not on file documented as of this encounter Visit Diagnoses Not on filedocumented in this encounter Care Teams Hangar Attendant Relationship Specialty Start Date End Date Fernando Chavez MD [address] [place] [address] PCP - General Family Medicine 09/06/23 documented as of this encounter
--- OUTSIDE RECORDS SUMMARY | 2024-08-08 16:01 | XMS_ITS | Encounter Summary ---
Author Organization [facility] Address [address] [place] [address] Care Team Providers Care Roving Hand Name Role Phone Fernando Chavez MD Primary Care Provider Encounter Details Date Type Department Care Team (Latest Contact Info) Description 10/18/2023 Travel Social History Tobacco Use Types Packs/Day [...] on filedocumented in this encounter Care Teams Roving Hand Relationship Specialty Start Date End Date Fernando Chavez MD [address] [place] [address] PCP - General Family Medicine 09/06/23 documented as of this encounter
--- OUTSIDE RECORDS SUMMARY | 2024-08-08 16:01 | XMS_ITS | Encounter Summary ---
Author Organization [facility] Address [address] [place] [address] Care Team Providers Care Technician Test Systems Name Role Phone Fernando Chavez MD Primary Care Provider [phone] Encounter Details Date Type Department Care Team (Latest Contact Info) Description 10/28/2023 Travel Social History Tobacco Use Types Packs/Day [...] on filedocumented in this encounter Care Teams Technician Test Systems Relationship Specialty Start Date End Date Fernando Chavez MD [address] [place] [address] PCP - General Family Medicine 09/06/23 documented as of this encounter
--- OUTSIDE RECORDS SUMMARY | 2024-08-08 16:02 | XMS_ITS | Encounter Summary ---
Author Organization [facility] Address [address] [place] [address] Care Team Providers Care Forensic Identification Specialist Name Role Phone Fernando Chavez MD Primary Care Provider Encounter Details Date Type Department Care Team (Latest Contact Info) Description 09/06/2023 Travel Social History Tobacco Use Types Packs/Day Years Used Date Smoking Tobacco: Former Cigarettes Smokeless Tobacco: Never Alcohol Use Standard Drinks/Week Comments Yes 0 (1 standard drink = 0.6 oz pur e alcohol) AUDIT-C Answer Date Recorded Q1: How often [...] on filedocumented in this encounter Care Teams Forensic Identification Specialist Relationship Specialty Start Date End Date Fernando Chavez MD [address] [place] [address] PCP - General Family Medicine 09/06/23 documented as of this encounter
--- OUTSIDE RECORDS SUMMARY | 2024-08-08 16:02 | XMS_ITS | Encounter Summary ---
Author Organization [facility] Address [address] [place] [address] Care Team Providers Care Kosher Dietary Service Supervisor Name Role Phone Unavailable Primary Care Provider Unavailabl e Encounter Details Date Type Department Care Team (Late st Contact Info) Description 10/14/1999 Orders Only [facility] [address] [place] [address] [phone] ProviderYuriy MD Social History Tobacco Use Types Packs/Day Years Used Date Smoking Tobacco: Never Assessed Sex and Gender Information Value Date Recorded Sex Assigned at Not on file Gender Identity Not on file Sexual Orientation Not on file documented as of this encounter Plan of Treatment Not on file documented as of this encounter Procedures Procedure Name Priority Date/Time Associated Diagnosis Comments GROSS + MICRO EXAM JOHN 10/14/1999 8: 35 AM CONCRETE PUDDLER documented in this encounter Results * GROSS + MICRO EXAM (10/14/1999 8:35 AM CONCRETE PUDDLER) Result CASE NUMBER [id number] Comment: ORDERING [...] AND FOREIGN BODY GIANT CELL REACTION SR/KA [id number] X3 Released By ?LINDA VICENTE MISCELLANEOUS SAMPLES / Unknown 10/14/1999 8:35 AM CONCRETE PUDDLER 10/14/1999 8:37 AM CONCRETE PUDDLER Historical Provider LAB - PATHOLOGY/C YTOLOGY ORDERABLES documented in this encounter Visit Diagnoses Not on filedocumented in this encounter
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
--- OUTSIDE RECORDS SUMMARY | 2024-08-08 16:02 | XMS_ITS | Encounter Summary ---
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 100 feet independently and appropriate AD Patient will ascend/descent 3 steps independently Intermediate Goal(s): Patient to be independent with functional mobility and self-care and should be able to safely discharge to prior level of care. Equipment Issued: gait belt Plan: Plan: Gait training Transfer training Stair training Assistive device training Endurance training Bed mobility training Balance training Energy conservation techniques Safety awareness Home exercise program training If patient is discharged from the facility, this note serves as a discharge summary if further physical therapy visits did not occur. Refer to filed flowsheet for further details. Following therapy session, patient left in patient bedside chair, with chair alarm on, with call light within reach, with RNTheo aware, with therapy cues visible on white board. ASSOCIATE * Jonathan Nichole MD - 09/06/2023 11:45 AM CST 57 year old female with past medical history of kidney stones, C-diff, endometriosis, and multiple bowl obstruction history, who presented from OSH as direct admit for stroke/TIA evaluation and management. Her NIHSS was 2 at the OSH and 0 on arrival to [facility]. The CT head wo contrast at the OSH (images not available) showed no acute abnormalities reportedly. The CTA at the OSH reportedly showed 41%stenosis of the right ICA. Incidentally patient was also tested positive for COVID.??The CT abdomenand pelvis at the OSH also showed few left renal stones. NIHSS:1 Sensory changes in Left Lower Extremity Patient has improvement in Left face, arm, leg sensory changes Strength is appropriate in all extremities No focal neurologic deficits identified in CN II - CN XII Subjective: Patient states that she's improved as compared to yesterday Plan: - TCD - Carotid U/S - MRA Brain/Neck - c/w aspirin, plavix - c/w Lipitor 40mg At 1200, informed that TCD showed L Vertebral Artery and Basilar artery showed vasospasm, thereforeCTA head was ordered. CTA, prior to read, did not show immediate concern for RCVS. CTA showed the following: Angiographic findings: ?? Neck: ?? There is atherosclerotic disease of the aortic [...] stenosis. The left vertebral artery is dominant. ?? Head: ?? The distal internal carotid arteries are patent. The anterior cerebral arteries are patent. The middle cerebral arteries are patent. The posterior cerebral arteries are patent with origin of the right posterior cerebral artery. The distal vertebral arteries are patent. The basilar artery is patent patent. No aneurysms, spot sign, or signs of a high flow vascular malformation are identified. ? IMPRESSION: ?? 1. No acute intracranial hemorrhage. ?? 2. No large arterial occlusions or significant stenoses identified in the head or neck. Scattered atherosclerotic disease in the neck arteries. ?? 3. 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 The assessment and plan were discussed with PGY-4 Yeni Bean MD. Under supervision of Stroke/Endovascular Attending MD Jonathan Ward MD PGY-2 Adult Neurology Resident ASSOCIATE * Mehdi Mckeon SLP - 09/06/2023 11:00 AM CST [facility] Department of Physical Medicine & Rehabilitation Progress Note Patient: Madison Weinberg Med Record Number: [id number] Date of : 1965 Age: [age] year old SHADE CLASSIFIER consult received and acknowledged per stroke protocol. Since placement of consult patient has passed nursing dysphagia screen and is currently on a PO diet. SHADE CLASSIFIER followed up with RN this morning to inquire about diet tolerance and ask about any concerns regarding dysphagia. RN denied any concerns regarding swallow function at this time. SHADE CLASSIFIER will d/c orders at this time given patient does not appear to be a candidate for SHADE CLASSIFIER intervention, please reconsult if needed. Mehdi De Luna M.A., [facility]-SHADE CLASSIFIER Speech Language Pathologist [phone] ASSOCIATE * Candie Vidales OT - 09/06/2023 8:[address] [facility] Occupational Therapy Initial Evaluation/Discharge Note Patient: Madison Weinberg Med Record Number: [id number] Date of : 1965 Age: [age] year old PPE worn by staff: mask - N95;face shield;gown - disposable PPE worn by patient: gown - patient, clean;socks - clean Recommendations: OT Discharge Recommendations: Patient may return home without the need for ongoing Occupational Therapy services post-hospitalization. Patient independent with self-care. Discontinue IP OT Recommended Transportation Method: Private Car In addition to the 1:1 evaluation of the patient, additional eval time was spent completing the chart review prior to the assessment, completing the multidisciplinary plan of care and education plan post evaluation and communicating results of the eval to other treatment team members. Nurse and Physical Therapy contacted regarding patient status and/or discharge plan. Physician Orders: Evaluation and Treat Activity Level: up ad vicky PRECAUTIONS: Medical/Surgical Precaution: No (Fall precautions) DIAGNOSIS: Patient Active Problem List: Ischemic stroke (CMS-HCC) Left renal stone Anxiety Abdominal tenderness in left flank No past medical history on file. SUBJECTIVE: Subjective: Pt. agreeable to therapy Home Situation: Type of Residence: (mobile home) Lives with:: Alone Steps to Enter: 3 Handrails: Outdoor Home Structure: One Story Primary Bedroom: First Floor Primary Bathroom: First Floor Bathroom : Walk in Shower Equipment at Home: Walker-2 Wheeled;Grab Bars Prior Level of Functioning: Mobility: Ambulate-In Home ;Without Assistive Device;Ambulate-In Community;Driving Fallen Within 6 Mos: 2 (slipped) Who assists you at home?: Friends/Family How often is assistance provided?: Lives alone, however family/friends nearby to assist as needed Oxygen at Home: No Activity at Home: Active Vision: Corrected with glasses Hearing Exceptions: No impairment Who manages medications?: self Work status: Disability Pain Assessment: Pain Location #1 Pain Scale/Observation: Numeric (0-10) Pain Rating Score #1: 8 Sedation Level #1: 1-Awake and alert Pain Location : Abdomen Pain Orientation: Left Pain Quality: Aching;Discomfort;Pressure Pain Intervention(s): (Theo STEPHENS notified (10:10)) OBJECTIVE: At start of therapy session, patient found in bed and with no alarm General Appearance: 57 y/o female, supine in bed, NAD LDA: IV's: Peripheral line Edema: No edema noted in bilateral UEs Vitals: (*Assess the 3 levels of oxygen saturations both for room air and 02 unless rest on room air is 88% or less). Rest BP: 131/85 (99) HR: 83 Sp02 Sp02 100% RA Observations: no s/s of distress during tx session Mental Status/Cognition: Level of Consciousness-Adult: Alert;Eyes Open Spontaneously Orientation Level: Oriented X4 Cognition: Follows Commands-Consistent;Attention/concentration-normal for age;Attention/concentration-decreased UE ROM: RUE: AROM WFL LUE: AROM WFL Strength: RUE: 5/5 LUE: 4/5 UE Tone RUE: no abnormal tone noted LUE: no abnormal tone noted Coordination: intact serial opposition for bilateral hands UE Proprioception RUE: WFL LUE: WFL UE Sensation RUE: intact, no complaints of numbness or tingling LUE: intact, no complaints of numbness or tingling Perception: Inattention/Neglect: Appears intact Visual Motor Tracking: Able to track stimulus in all quads w/o difficulty Mobility: A gait belt and non-slip socks were used for all out of bed activity this date. Bed Mobility: Rolling: Complete [place] Supine to Sit: Complete [place] with HOB in semi-fowlers position Sit to Supine: Activity Does Not Occur (in bedside chair post tx) Transfers: Sit to Stand: Stand By Assist Stand to Sit: Stand By Assist Transfer Device: Gait belt Functional Ambulation: Patient ambulated in room with Stand by assist using , no device Balance: Balance Scales/Tests Used: Sitting: Static/Dynamic;Standing: Static/Dynamic Sitting - Static: Good Sitting - Dynamic: Good Standing - Static: Fair + Standing - Dynamic: Fair;Without Upper Extremity Support Activities of Daily Living Oral Facial Hygiene: Complete [place] (while standing) Lower Body Dressing: Complete [place] (to don socks EOB) Toileting: Complete [place] Splint Issued/Checked: none ACTIVITY TOLERANCE: Patient's activity tolerance: good. Modified Chyna: Current Modified Washburn Score: 1 AM-PAC 6 Clicks Daily Activity Raw Score:: 24 TREATMENT / EDUCATION / INTERVENTIONS: While performing OT, Patient was instructed in:OT initial evaluation, UE HEP administered Presented to patient who demonstrates Good understanding of instructions given. INFORMED CONSENT TO TREATMENT: Plan of care including recommended therapy, goals and frequency, discussed with patient who understands and agrees to proceed. ASSESSMENT: Patient demonstrated independence/ baseline with activities of daily living. No continued IP Occupational Therapy indicated at this time. Plan: Plan: Discontinue IP OT If patient is discharged from the facility, this note serves as a discharge summary if further occupational therapy visits did not occur. Refer to filed flowsheet for further details. Following therapy session, patient left in patient bedside chair, with chair alarm on, with call light within reach, with RNTheo aware, with therapy cues visible on white board. ASSOCIATE * Dinh Cunningham MD - 09/06/2023 1:48 AM CST Plan of Care Urology 57 yo female here for stroke s/p TPA. Patient reporting left flank tenderness and OSH CT read showing tiny left non-obstructing stones so urology consulted. Plan: - Recommend Flomax to help her pass stone if one present - Please upload outside images to the medical center. Would be unusual for her pain to be related to stones as the read does not mention obstruction which is the source of stone pain. Need images to help delineate. - Recommend good hydration of 3L per day - Formal consult to follow later this morning Dinh Cunningham MD Urology Resident 09/06/2023 1:51 AM ASSOCIATE documented in this encounter H&P Notes * Buzz Cotton MD - 09/06/2023 12:35 AM CST Images from the original note were not included. [facility] Stroke History and Physical Madison Weinberg Age: [age] year old Date of : 1965 Date of Admission: 09/06/2023 Hospital Day: 0 THIS IS A DIRECT ADMIT - CODE STROKE WAS NOT ACTIVATED. Subjective Direct admit for stroke/TIA History of Present Illness 57 year old female with past medical history of kidney stones, C-diff, endometriosis, anxiety and multiple bowl obstruction history, who presented from OSH as direct admit for stroke/TIA evaluation and management. Patient presented to OSH with left sided paresthesias and weakness. As per notes fromOSH, she developed sudden abdominal pain followed by development of paresthesias on the left side of body including arms, lips, head and legs. She was stading on the ladder at that time and when she got down, she felt her left foot was clumsy and weak and leg was heavy. As per OSH notes at triage was noted to have left facial asymmetry which was resolved. Her NIHSS was 2 at the OSH. Due to low NIH SS and non disabling symptoms she was determined not a candidate of tPA. She was transferred to [facility] as non time critical transfer for further evaluation and management. The CT head wo contrast at the OSH (images not available) showed no acute abnormalities reportedly. The CTA at the OSH reportedlyshowed 41% stenosis of the right ICA. Incidentally patient was also tested positive for COVID. The MRI brain at the OSH as per review of records was negative for acute infarct. Medical history significant for kidney stones, C-diff, endometriosis, and multiple bowl obstructionhistory. Allergy Allergies Allergen Reactions ??? Diphenhydramine Unknown ??? Duloxetine Other Altered mentation ??? Gabapentin Other confusion ??? Sertraline Other confusion ??? Bupropion Unknown ??? Codeine Itching Family History Family History Problem Relation Name Age of Onset ??? Diabetes; unknown type Mother ??? CAD (Coronary Artery Disease) Mother ??? Hypertension Mother ??? Hypertension Father ??? CAD (Coronary Artery Disease) Father Social History Social History Socioeconomic History ??? Marital status: Tobacco Use ??? Smoking status: Former Types: Cigarettes ??? Smokeless tobacco: Never Substance and Sexual Activity ??? Alcohol use: Yes ??? Drug use: Yes Types: Other, Marijuana Comment: [facility] for pain management Review of Systems As above Objective Patient Vitals for the past 8 hrs: Height Weight 09/06/23 0100 1.626 m (5' 4 ) 46.7 kg (103 lb) Exam: Cortical Function Mental Status Awake, alert, follows commands Orientation Person, place, time, and situation Language Fluency intact, comprehension intact, repetition intact Visual Smith Intact bilaterally to confrontation Neglect No visual neglect noted, no tactile neglect noted Cranial Nerves II Pupils 3 mm and bilaterally reactive to light. Fundoscopic exam not performed. VIII Hearing is intact bilaterally to finger rub. III/IV/ Extraocular muscles intact. No diplopia, ptosis, nystagmus or convergence abnormalities noted. IX/X Palate elevated symmetrically without phonation abnormalities noted. V Facial sensation symmetric to light touch and intact bilaterally. Corneal reflex not examined. XIHead turning and shoulder shrug are intact. VII No facial palsy noted. XII Tongue is midline with normal movements and no atrophy noted. Motor Function Movement No abnormalities noted Bulk No abnormalities noted Tone No abnormalities noted Proximal Upper Distal Upper Proximal Lower Distal Lower Right 5/5 5/5 5/5 5/5 Left 4/5 4/5 4/5 4/5 Muscle Stretch Reflexes BI TRI BR PAT ACH TOES Right 2 2 2 2 2 Down Left 2 2 2 2 2 Down Sensory Light Touch Symmetric and intact bilaterally Noxious Stimuli Symmetric and intact bilaterally Temperature Not tested Pallesthesia Not tested Cerebellar FNF Right Intact Left Intact Gait Deferred due to risk of fall. ECG: reveiwed Ischemic Stroke Documentation Comorbidities kidney stones, C-diff, endometriosis, and multiple bowl obstruction history Cardiovascular/Cerebrovascular Comorbidities none NIHSS Stroke Scale: Interval: Baseline Person Administering Scale: Buzz Cotton MD 1a Level of consciousness 0 = Alert; [...] Limb Ataxia 0 = Absent. 8 Sensory 0 = Normal; no sensory loss. 9 Best Language 0 = No aphasia; normal. 10 Dysarthria 0 = Normal. 11 Extinction/Inattention 0 = No abnormality. Total - 0 Hospital Problems on Admission: Left renal stone (POA: Clinically Undetermined) Anxiety (POA: Yes) Abdominal tenderness in left flank (POA: Yes) Ischemic stroke (CMS-HCC) (POA: Unknown) Assessment 57 year old female with past medical history of kidney stones, C-diff, endometriosis, and multiple bowl obstruction history, who presented from OSH as direct admit for stroke/TIA evaluation and management. Her NIHSS was 2 at the OSH and 0 on arrival to [facility]. The CT head wo contrast at the OSH (images not available) showed no acute abnormalities reportedly. The CTA at the OSH reportedly showed 41%stenosis of the right ICA. Incidentally patient was also tested positive for COVID. The CT abdomen and pelvis at the OSH also showed few tiny left renal stones. Stroke Type: Ischemic Stroke Mechanism: TIA Plan TIA/Stroke Workup; active - Will consider MRI brain wo contrast, MRA brain wo contrast and MRA neck with contrast in am. - TTE and Telemetry; if TTE negative, consider CELE - HbA1C, Lipid Panel, Cardiac Enzymes - UA and UDS - NPO until passes swallow - q4h vitals and neurological checks - Continue ASA 81 mg daily, Lipitor 40 mg and Plavix 75 mg daily for secondary prevention of stroke. Blood Pressure Goals: Stroke/TIA without TNK < 220/120 Core Measures TNK administration: no Anti-thrombotic: ASA 81 mg daily and Plavix 75 mg daily Statin: Lipitor 40 mg daily DVT prophylaxis: heparin sq Swallow Evaluation: pending PT/OT Evaluation: pending Smoking cessation; former smoker Individual Modifiable Risk Factors Hypertension: no Hyperlipidemia: no Diabetes: no Atrial Fibrillation: no Tobacco: no Additional Hospital Problems: #Renal stones - has left flank tenderness - Left non obstructive renal stones found on the CT abdomen pelvis at the OSH. - Urology is consulted - appreciate their recommendations. - pain management with tylenol 1000 mg q8H PRN. - consider repeating the CT CAP w contrast in am. #Anxiety - continued home clonazepam 0.5 mg TID #muscle pain #muscle spasm - patient takes Flexeril 10 mg TID at home - continue home Flexeril 10 mg TID #Hx of constipation - continue home miralax daily #Hx of insomnia - continue home trazodone 150 mg qHS PRN. #COVID - incidentally diagnosed at the OSH - continue to monitor #Hx of C-diff - continue to monitor - no loose stools at this time. #Hx of endometriosis - continue to monitor The assessment and plan is discussed with and approved by stroke fellow physician Dr Peck. Buzz Cotton MD Neurology Resident [facility]. ASSOCIATE Associated attestation - Timi Mills MD - 09/09/2023 10:03 AM SPA ASSOCIATE NEUROVASCULAR SERVICE ATTESTATION I saw and examined the patient with the Resident. I have verified all details of the Resident's note and agree with the Resident's documentation. Date of Service: 09/06/2023 Timi Mills MD documented in this encounter Consult Notes * Cali Krausely - 09/06/2023 5:44 PM CSTAssociated Order(s): IP CONSULT TO PASTORAL CARE [employer] responded to Pastoral Care consult for grain elevator man visit/prayer request for Garland, as she prefers to be called, who indicated she wanted to complete an Advance Directive. Garland named her brother Mook Bro her Durable POA for Healthcare, and completed Part II of the AD as well, indicating she wanted no aggressive tx if she was at the end of life. Garland and signed Part I, the POA portion, and notarized it; Garland signed Part II and obtained 2 witnesses. made copies of the AD for Garland, her paper chart and for HIM to scan into Epic. Garland shared with an extensive hx of trauma that began in childhood and which continued throughout her marriage. She described herself as having chronic pain and said she was allergic to tylenol and that a Lidocaine patch wasn't helpful. prayed with Garland for freedom from pain, and for healing. chaplain Linn Ascom [phone] orthopedically impaired teacher [phone] ASSOCIATE Lolly Conroy RN - 09/06/2023 1:16 PM CSTAssociated Order(s): IP CONSULT TO PHYSICAL MED AND REHAB [facility] Rehab has initiated an evaluation per stroke protocol. Will continue to follow for medical stability and tolerance/participation in therapies. ?? Thank you for the referral Lolly Montalvo RN, BSN Senior Clinical Liaison [facility] [phone]/BENJY - 09/06/2023 1:16 PM CSTAssociated Order(s): IP CONSULT TO NUTRITIONAL SERV Clinical Nutrition Assessment Brief Synopsis: Patient is diagnosed with severe malnutrition; Specific criteria can be found in assessment below Nutrition Plan: Continue Cardiac diet as medically appropriate +[place] Instant Breakfast mixed with 2% milk (260 kcals, 13 g protein, 40 g carbohydrate) TID w/meals x 2 at each meal +Prosource Gelatin Plus (160 kcal, 20g protein, 20g CHO, 35 mg Na, 110 mg K; contains Milk and Porkingredients) TID with meals Recommendations to Physician: Code for malnutrition Comments: RD consulted per stroke protocol. Per neurology note, pt likely had TIA stroke. A/Ox4. Noted pt passed both swallow eval. Pt currently on Cardiac diet order; noted one documented intake since diet advancement -- 100%. Last BM 09/02; no GI issues noted in chart. Labs reviewed -- K+ (3.1); recommend repletion of this lyte to aid nutrition status. Lipid profile appears normal. No A1C completed at this time. No hx of DM noted in chart. RD visited pt at bedside. Pt expressed frustration with medical team and foodservice; stated that she has been having a had time with getting meals and certain meds since admission. Also, showed frustration with being sticked with two many IVs because she has difficult veins. Pt endorsed weight loss due to increased needs 2/[address] observed significant signs of fat/muscle wasting in physical assessment. Pt meets ASPEN criteria for severe malnutrition; see full malnutrition etiology below for specific details. Pt expressed wanting to continue drinking above ONS as that is what she does at home. Pt also amendable to high protein gelatein at meals to aid with increased nutrient intake. Pt demonstrated verbal understanding of heart-healthy diet to aid improve nutrition status. Denies wanting additional educational materials for d/c. RD to follow per clinical nutrition guidelines. Assessment: Med/Surg History and Clinical Diagnoses: 57 year old female with past medical history of kidney stones, C-diff, endometriosis, anxiety and multiple bowl obstruction history, who presented from OSH asdirect admit for stroke/TIA evaluation and management Height: 162.6 cm (5' 4 ) Weight: 46.7 kg (103 lb) BMI: Body mass index is 17.68 kg/m??. 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 Diet order accuracy Current diet order: Cardiac Standard Nutrition recommendation: alter/change nutrition order P.O.Intake for the past 48 hrs: % Meal Taken Av % Min: 100 % Max: 100 % Supplement(s) Consumed- Last 48 hours None Food Allergies: No known food allergies Chewing/Swallowing: None Pain affecting intake: No Estimated Needs: KCAL: 4809-1360 (35-45 kcal/kg ABW) Protein (g): 82-105 (20% of total kcal needs) Fluid (ml): 1 ml/kcal Needs based on: Kcal/kg- (Comment) (ABW of 46.7kg) Recommended Access Route: PO Malnutrition Etiology: (Add to Active Problem List) Malnutrition in the context of: chronic disease, Malnutrition Severity: Severe Protein Calorie BMI: Body mass index is 17.68 kg/m??. GI Concerns: None Nutrition Focused Physical Assessment: Loss of Subcutaneous Fat Orbital: Moderate Buccal: Moderate Tricep: Severe Chest/Ribs: Severe Muscle Loss Temples (Temporalis Muscle): Moderate Clavicles (Pectoralis & Deltoids): Severe Shoulders (Deltoids): Severe Interosseous Muscle: Severe Pertinent Nutrition Labs: Recent Labs Component Name 09/06/23 0146 BUN 6* CREATININE 0.87 NA 144 POTASSIUM 3.1* CL 112* CO2 22 GLUCOSE 107 CALCIUM 8.5 ANIONGAP 10 BCR 7 OSMOLALITY 296* EGFR 78* Pertinent Nutrition Medications: Current Facility-Administered Medications Medication ??? 0.9% NaCl injection 3 mL And ??? 0.9% NaCl injection 1-10 mL ??? aspirin chew tablet 81 mg Or ??? aspirin suppository 300 mg ??? atorvastatin (Lipitor) tablet 80 mg ??? clonazePAM (KlonoPIN) tablet 0.5 mg ??? clopidogrel (plaVIX) tablet 75 mg ??? cyclobenzaprine (Flexeril) tablet 10 mg ??? heparin injection 5,000 Units ??? labetalol (Normodyne; Trandate) injection 10 mg Or ??? hydrALAZINE (Apresoline) injection 10 mg ??? ondansetron (disintegrating) (Zofran ODT) tablet 8 mg ??? polyethylene glycol 3350 (Miralax) powder 17 g ??? traZODone (Desyrel) tablet 150 mg Skin/Wound: WDL Education needed: Stroke Nutrition Therapy Education Provided: Not indicated Nutrition Care Process (1) Nutrition Diagnostic Statement: Malnutrition severity: : Severe related to:: increased nutrient needs due to injury or trauma as evidenced by:: BMI less than 19;loss of subcutaneous fat;loss of muscle mass Nutrition Diagnostic Statement Progress: New diagnostic statement established Nutrition Intervention: Meals and snacks:;Medical Food Supplements: Monitoring: GI, PO intake, WT, labs, medications Evaluation: Nutrition Goal: Total intake will meet estimated nutrient needs Nutrition Goal Timeframe: Throughout stay Nutrition Goal Progress: New goal established Jessica Jackson MS, RD/RDN, LD Ascom: [id number] ASSOCIATE * Stephani Briceno RN - 09/06/2023 11:32 AM CSTAssociated Order(s): IP CONSULT TO CASE MANAGEMENT Stroke Psychosocial Assessment Case Management Screen completed, welcome letter given Met with patient Lives with: Alone Diagnosis: The encounter diagnosis was Ischemic stroke (CMS-HCC). Contacts/Support: No emergency contact information on file. Insurance: Payer/Plan Subscriber Name Rel Member # Group # [employer] - HUM* MADISON WEINBERG* Self [id number] [address] [address] Prior level of functioning: Cognition: WNL Mental Health History: denies Employment/income status: Employed Alcohol/Drug/Tobacco: alcohol and marijuana Prior Stroke: denies Co-morbidities: no Medication Needs: yes Established Resources: Community Resource Contact Information: SW Referral: No If patient requires HHC at discharge, he/she requests: Anticipated level of care provider: None Equipment at Home: Walker-2 Wheeled;Grab Bars Current DME Provider: Recommended/Needed DME: PCP: No primary care provider on file. If no PCP, action taken: Dr. Chavez in [place] Transportation: Coping Strengths: Short Term Goals: feel better [employer] Goals: return to baseline Family/Support included in planning:No, per pt request Patient and Family Questions/Concerns: not at this time Discharge Plan: Anticipated level of care at discharge: Home Anticipated Discharge Date: 09/09/23 Stephani Briceno RN Phone: [phone] 09/06/2023 ASSOCIATE * Remi Sanchez MD - 09/06/2023 7:27 AM CSTAssociated Order(s): IP CONSULT TO UROLOGY Images from the original note were not included. [facility] Division of Urologic Surgery New Consult Note Attending: Elmer Mejia MD Patient Name: Madison Weinberg Age/Gender: 57 year old female : 1965 Date: 09/06/2023 Reason for Consult: Kidney stone HPI: Madison Weinberg is a 57 year old female with PMHx of nephrolithiasis, endometriosis, complex abdominal history with multiple abdominal procedures and SBOs, who presented to [facility] 09/06 due to left sided weakness. 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 Also COVID positive. CT AP obtained at OSH, which reports showed non-obstructing left sided stones. Urology was consulted for these findings Patient has had multiple ESWLs in the past (4-5x). Most recent treatment was a few years ago. They have been bilateral. Currently has diffuse abdominal pain, but also worse on left with associated left flank pain. Voiding without issue. AAOx4. AFVSS. WBC 5.4, Hgb 10.2, Cr 0.87 PMH: nephrolithiasis, endometriosis Medications: no meds or blood thinners Allergies: sertraline PSH: multiple open surgeries for SBO and endometriosis SocHx: former smoker FMH: noncontributory No past medical history on file. No current facility-administered medications on file prior to encounter. Current Outpatient Medications on File Prior to Encounter Medication Sig Dispense Refill ??? clonazePAM (KlonoPIN) 0.5 MG tablet Take 1 (one) tablet by mouth 3 times daily ??? cyclobenzaprine (Flexeril) 10 MG tablet Take 1 (one) tablet by mouth 3 times daily ??? magnesium hydroxide (Milk Of Magnesia) 400 MG/5ML suspension Take 15 mL by mouth as needed for Constipation ??? ondansetron (Zofran) 8 MG tablet Take 1 (one) tablet by mouth every 6 hours as needed for Nausea/Vomiting ??? polyethylene glycol 3350 (Miralax) 17 GM/SCOOP powder Take 17 (seventeen) g by mouth once daily ??? traZODone (Desyrel) 100 MG tablet Take 1.5 (one and one-half) tablets by mouth nightly as needed for Insomnia Allergies Allergen Reactions ??? Diphenhydramine Unknown ??? Duloxetine Other Altered mentation ??? Gabapentin Other confusion ??? Sertraline Other confusion ??? Bupropion Unknown ??? Codeine Itching No past surgical history on file. Social History Socioeconomic History ??? Marital status: Tobacco Use ??? Smoking status: Former Types: Cigarettes ??? Smokeless tobacco: Never Substance and Sexual Activity ??? Alcohol use: Yes ??? Drug use: Yes Types: Other, Marijuana Comment: [facility] for pain management Family History Problem Relation Name Age of Onset ??? Diabetes; unknown type Mother ??? CAD (Coronary Artery Disease) Mother ??? Hypertension Mother ??? Hypertension Father ??? CAD (Coronary Artery Disease) Father REVIEW OF SYSTEMS Constitutional: Negative for fatigue, fevers, chills, weight change Eyes: Negative for visual changes CV: Negative for chest pain Pulm: Negative for dyspnea GI: abdominal pain : left flank pain and abdominal pain MSK: Negative for myalgias, arthralgias Skin: Negative for skin changes Neuro: Negative for weakness Remainder of ROS negative unless documented in HPI PHYSICAL EXAM Vitals: 09/06/23 0033 09/06/23 0100 09/06/23 0354 BP: (!) 125/114 151/69 Pulse: 77 74 Temp: 97.9 ??F (36.6 ??C) 98.1 ??F (36.7 ??C) SpO2: 99% 100% Weight: 46.7 kg (103 lb) Height: 1.626 m (5' 4 ) Estimated body mass index is 17.68 kg/m?? as calculated from the following: Height as of this encounter: 1.626 m (5' 4 ). Weight as of this encounter: 46.7 kg (103 lb). Gen: No acute distress HEENT: AT/NC, EOMI CV: RRR Pulm: Nonlabored respirations Abd: Soft.TTP in all four quadrants. Midline surgical scar and prior ostomy sites healing well. : moderate left CVA tenderness MSK: WWP, no cyanosis or edema Skin: Normal color and turgor, no lesions noted Neuro: Moving all extremities spontaneously, no focal deficits Psych: Appropriate mood and affect Recent Labs: CBC: Recent Labs Component Name 09/06/23 0146 WBC 5.4 HGB 10.2* HCT 31.3* BMP: Recent Labs Component Name 09/06/23 0146 NA 144 CL 112* CO2 22 BUN 6* CREATININE 0.87 No results for input(s): PT , PTT , INR in the last 64429 hours. Imaging: CTAP w Contrast: (reviewed on CD in patient's chart) - no kidney stones seen. No hydronephrosis, or perinephric fat stranding. Equal update of contrast in bilateral kidneys Microbiology: - UA negative LE and nirtites Pathology: none Assessment and Plan: Madison Weinberg is a 57 year old female with PMHx nephrolithiasis s/p ESWLs, endometriosis s/p multiple abdominal surgeries, here for stroke workup, with left sided flank pain. CT scan reviewed, no kidney stones seen. No obstruction or hydronephrosis. Given these findings andno leukocytosis, JHOANA, and negative UA, her source of pain is unlikely to be related to kidney stones. - no acute urological intervention at this time - can continue Flomax while she is in house - She has followed with Urologist in [place], but would like follow up with [facility] Urology for further stone surveillance. - plan for RTC in [address] Renal stone Remi Sanchez MD PGY3 09/06/23 7:27 AM ASSOCIATE documented in this encounter Miscellaneous Notes * Code Status Discussion - Buzz Cotton MD - 09/06/2023 2:16 AM CST Code status Discussion (DNI) ?? Condition of the patient: Stable Rationale of code status: Patient wishes ?? Decisional capacity of the patent at the time of this decision: Intact If this decision was made by someone other than the patient, who? N/A Was a Family Meeting held? If so, who was present? N/A Was an Ethics Consult Placed? N/A If the code status change was discussed by someone other than the attending physician, please specify: Buzz Cotton MD - neurology resident The stroke fellow Dr Peck and attending physician Dr Mills was notified. Buzz Cotton MD 09/06/2023 ASSOCIATE documented in this encounter Plan of Treatment Scheduled Orders Name Type Priority Associated Diagnoses Orde r Schedule CT RENAL STONE Imaging Routine Kidney stone Expected: 02/19/2024, Expires: 09/06/2024 Scheduled Referrals Name Type Priority Associated Diagnoses Order Schedule Referral to Physical Therapy Outpatient Referral Routine Muscle weakness (generalized) 1 Occurrences starting 09/06/2023 until 09/06/2024 Referral to Occupational Therapy Outpatient Referral Routine Muscle weakness (generalized) 1 Occurrences starting 09/06/2023 until 09/06/2024 documented as of this encounter Procedures Procedure Name Priority Date/Time Associated Diagnosis Comments SARS-COV-2 (COVID-19) RAPID STAT 09/07/2023 12:13 PM SPA ASSOCIATE GLUCOSE - POINT OF CARE Routine 09/07/2023 8:41 AM SPA ASSOCIATE CBC W AUTO DIFFERENTIAL Routine 09/07/2023 6:38 AM SPA ASSOCIATE BASIC METABOLIC PANEL (CALCIUM TOTAL) Routine 09/07/2023 6:38 AM SPA ASSOCIATE PHOSPHORUS BLOOD Routine 09/07/2023 6:38 AM SPA ASSOCIATE MAGNESIUM BLOOD Routine 09/07/2023 6:38 AM SPA ASSOCIATE MRI BRAIN WO CONTRAST STAT 09/07/2023 12:57 AM SPA ASSOCIATE Ischemic stroke (HCC) GLUCOSE - POINT OF CARE Routine 09/06/2023 7:[address] ANGIO BRAIN AND NECK STAT 09/06/2023 3:30 PM SPA ASSOCIATE TIA (transient ischemic attack) TROPONIN-I HIGH SENSITIVE REFLEX 1HOUR Timed 09/06/2023 12:00 PM SPA ASSOCIATE GLUCOSE - POINT OF CARE Routine 09/06/2023 11:59 AM SPA ASSOCIATE VAS CAROTID DUPLEX BILATERAL Routine 09/06/2023 11:54 AM SPA ASSOCIATE Ischemic stroke (HCC) VAS TRANSCRANIAL DOPPLER COMP Routine 09/06/2023 11:53 AM SPA ASSOCIATE Ischemic stroke (HCC) ECHO LIMITED COLOR FLOW AND DOPPLER Routine 09/06/2023 10:11 AM SPA ASSOCIATE Ischemic stroke (HCC) GLUCOSE - POINT OF CARE Routine 09/06/2023 7:[address] HEAD WO CONTRAST JOHN 09/06/2023 4 :04 AM SPA ASSOCIATE Ischemic stroke (HCC) URINALYSIS REFLEX TO MICROSCOPIC NO CULTURE Routine 09/06/2023 2:58 AM SPA ASSOCIATE URINE DRUG SCREEN IMMUNOASSAY Routine 09/06/2023 2:58 AM SPA ASSOCIATE TROPONIN-I HIGH SENSITIVE BASELINE + 1HR STAT 09/06/2023 1:46 AM SPA ASSOCIATE CBC W AUTO DIFFERENTIAL Routine 09/06/2023 1:46 AM SPA ASSOCIATE BASIC METABOLIC PANEL (CALCIUM TOTAL) Routine 09/06/2023 1:46 AM SPA ASSOCIATE PHOSPHORUS BLOOD Routine 09/06/2023 1:46 AM SPA ASSOCIATE MAGNESIUM BLOOD Routine 09/06/2023 1:46 AM SPA ASSOCIATE LIPID PROFILE Routine 09/06/2023 1:46 AM SPA ASSOCIATE OT EVAL AND TREAT Routine 09/06/2023 1:3 3 AM SPA ASSOCIATE documented in this encounter Results * SARS-COV-2 (COVID-19) RAPID (09/07/2023 12:13 PM SPA ASSOCIATE) COVID-19 PCR Not detected Not detected 09/07/19 12:57 PM [facility] Microbiology SPECIMEN FROM NASOPHARYNGEAL STRUCTURE / Unknown Collection / Unknown 09/07/2023 12:13 PM SPA ASSOCIATE 09/07/2023 12:22 PM SPA ASSOCIATE Narrative [facility] - 09/07/2023 12:57 PM SPA ASSOCIATE [employer] Xpert Xpress SARS-COV-2 has been authorized by [...] Manuel Peña MD LAB - MICROBIOLOGY O RDERABLES Performing Organization Address City/[facility]/ZIP Co de Phone Number [address] [address], [facility] [phone] * GLUCOSE - POINT OF CARE (09/07/2023 8:41 AM SPA ASSOCIATE) Pathologist [facility] Glucose WB/POC 83 70 - 115 mg/dL 09/07/2023 8:46 AM SPA ASSOCIATE [facility] Specimen Type Arterial 09/07/2023 8:46 AM SPA ASSOCIATE [facility] Blood BLOOD SPECIMEN / Unknown 09/07/2023 8:41 AM SPA ASSOCIATE 09/07/2023 8:46 AM SPA ASSOCIATE Manuel Peña MD LAB - POINT OF CARE ORDERABLES Performing Organization Address [facility]/ZIP Co de Phone Number [address] [address], [place] [phone] * (ABNORMAL) CBC W AUTO DIFFERENTIAL (09/07/2023 6:38 AM SPA ASSOCIATE) Pathologist [facility] WBC 5.4 4.0 - 10.7 x10E9/L 09/07/2023 7:38 AM [facility] RBC Count 3.76(L) 3.90 - 5.20 x10E12/L 09/07/2023 7:38 AM [facility] Hemoglobin 11.3(L) 11.9 - 15.8 g/dL 09/07/2023 7:38 AM [facility] Hematocrit 33.6(L) 34.8 - 46.1 % 09/07/2023 7:38 AM [facility] MCV 89.4 80.0 - 98.0 fL 09/07/2023 7:38 AM [facility] MCH 30.1 26.7 - 33.6 pg 09/07/2023 7:38 AM [facility] MCHC 33.6 31.7 - 36.3 g/dL 09/07/2023 7:38 AM [facility] RDW-CV 12.6 11.3 - 14.8 % 09/07/2023 7:38 AM [facility] Platelet Count 265 150 - 420 x10E9/L 09/07/2023 7:38 AM [facility] MPV 9.8 7.8 - 11.4 fL 09/07/2023 7:38 AM [facility] Neutrophil % 65.0 41.0 - 74.0 % 09/07/2023 7:38 AM [facility] Lymphocyte % 25.1 17.0 - 47.0 % 09/07/2023 7:38 AM [facility] Monocyte % 6.3 3.0 - 11.0 % 09/07/2023 7:38 AM [facility] Eosinophil % 2.6 0.0 - 7.0 % 09/07/2023 7:38 AM [facility] Basophil % 0.6 0.0 - 1.6 % 09/07/2023 7:38 AM [facility] Immature Granulocytes % 0.4 0.0 - 1.0 % 09/07/2023 7:38 AM [facility] Neutrophil Absolute 3.49 1.60 - 7.50 x10E9/L 09/07/2023 7:38 AM [facility] Lymphocyte Absolute 1.35 1.00 - 4.40 x10E9/L 09/07/2023 7:38 AM [facility] Monocyte Absolute 0.34 0.15 - 1.00 x10E9/L 09/07/2023 7:38 AM [facility] Eosinophil Absolute 0.14 0.00 - 0.60 x10E9/L 09/07/2023 7:38 AM [facility] Basophil Absolute 0.03 0.00 - 0.13 x10E9/L 09/07/2023 7:38 AM [facility] Blood BLOOD SPECIMEN / Unknown Lab Venipuncture / Unknown 09/07/2023 6:38 AM SPA ASSOCIATE 09/07/2023 7:30 AM [facility] Timi Mills MD LAB - HEMATOLOGY OR DERABLES Performing Organization Address City/State/[facility] Co de Phone Number [facility] [address] [place] [address], [facility] [phone] * (ABNORMAL) BASIC METABOLIC PANEL (CALCIUM TOTAL) (09/07/2023 6:38 AM [facility]) BUN 9 7 - 26 mg/dL 09/07/2023 7:57 AM [facility] Creatinine 0.88 0.56 - 0.96 mg/dL 09/07/2023 7:57 AM [facility] Sodium 140 136 - 145 mmol/L 09/07/2023 7:57 AM [facility] Potassium 3.1(L) 3.5 - 4.5 mmol/L 09/07/2023 7:57 AM [facility] Chloride 107 98 - 107 mmol/L 09/07/2023 7:57 AM [facility] CO2 24 22 - 29 mmol/L 09/07/2023 7:57 AM [facility] Glucose 98 70 - 115 mg/dL 09/07/2023 7:57 AM [facility] Calcium 9.1 8.4 - 10.2 mg/dL 09/07/2023 7:57 AM [facility] Anion Gap 9 6 - 16 09/07/2023 7:57 AM [facility] BUN/Creatinine Ratio 10 7 - 23 09/07/2023 7:57 AM SPA ASSOCIATE [facility] Osmolality Calculated 289 275 - 295 mOsm/kg 09/07/2023 7:57 AM [facility] eGFR by CKD-EPI 77(L) >=90 mL/min/1.7 3 m2 09/07/2023 7:57 AM [facility] Blood BLOOD SPECIMEN / Unknown Lab Venipuncture / Unknown 09/07/2023 6:38 AM SPA ASSOCIATE 09/07/2023 7:30 AM SPA ASSOCIATE Timi Mills MD LAB - CHEMISTRY ORD ERABLES [address] [address], [place] [phone] * MAGNESIUM BLOOD (09/07/2023 6:38 AM SPA ASSOCIATE) Magnesium 1.6 1.6 - 2.6 mg/dL 09/07/2023 7:57 AM [facility] Blood BLOOD SPECIMEN / Unknown Lab Venipuncture / Unknown 09/07/2023 6:38 AM SPA ASSOCIATE 09/07/2023 7:30 AM SPA ASSOCIATE Timi Mills MD LAB - CHEMISTRY ORD ERABLES [address] [address], [place] [phone] * PHOSPHORUS BLOOD (09/07/2023 6:38 AM SPA ASSOCIATE) Phosphorus 3.6 2.9 - 5.1 mg/dL 09/07/2023 7:57 AM [facility] Blood BLOOD SPECIMEN / Unknown Lab Venipuncture / Unknown 09/07/2023 6:38 AM SPA ASSOCIATE 09/07/2023 7:30 AM SPA ASSOCIATE Timi Mills MD LAB - CHEMISTRY ORD ERABLES [address] [address], [place] [phone] * MRI BRAIN WO CONTRAST (09/07/2023 12:57 AM SPA ASSOCIATE) Anatomical Region Laterality Modality Head Magnetic Resonan ce 09/07/2023 10:4 4 PM SPA ASSOCIATE Impressions 09/08/2023 6:49 AM SPA ASSOCIATE IMPRESSION: 1.No evidence of restricted diffusion to suggest an acute infarction. 2.Fundus examination is recommended to exclude papilledema and/or the possibility of idiopathic intracranial hypertension (IIH), in the appropriate clinical setting. Results of this exam were communicated with closed loop confirmation to Dr. Gildardo Lees by Dr. Chaudhry on ??09/08/2023 at 6:46 AM was read back comprehension and verification. > Interpreting Provider: Lay Chaudhry MD on 09/08/2023 6:49 AM Narrative 09/08/2023 6:49 AM SPA ASSOCIATE PROCEDURE: ??MRI BRAIN WO CONTRAST, DATE/TIME OF EXAM: ??09/07/2023 12:57 AM, LOCATION ??[facility] INDICATION: I63.9: Ischemic stroke ([facility]-HCC) ADDITIONAL CLINICAL INFORMATION: Ordering Provider Reason For Exam: ??Concern for acute ischemic stroke (left-sided weakness) Technologist Note: ??Does the patient have a pacemaker or defibrillator?->No Does the patient have metal implants or stents?->No. Additional: ??None. EXAMINATION: Magnetic resonance imaging (MRI) of the brain without contrast TECHNIQUE: MRI of the brain was performed without contrast according to standard protocol. COMPARISON: CT of the head and CT angiogram of the head and neck from 09/06/2023 FINDINGS: No evidence of acute or chronic hemorrhage is identified. A tiny focus of susceptibility in the left basal ganglia likely mineralization. No evidence of acute cerebral infarction is seen. The ventricles are of stable size, shape, and morphology. No mass effect or midline shift is seen. Trace periventricular white matter FLAIR hyperintensity is a nonspecific finding. There is a partial empty sella. The corpus callosum and sella appear otherwise grossly unremarkable. The posterior fossa, brainstem, and craniocervical junction appear normal. The visualized portions of the orbits appear grossly unremarkable however the optic nerve sheaths is are mildly tortuous. Suspected trace mucosal thickening in the ethmoid air cells. The paranasal sinuses appear otherwise grossly clear. The imaged mastoid air cells appear grossly clear.. Normal flow voids are demonstrated in the carotid arteries and basilar artery. The calvarium and visualized cervical spine appear normal. Procedure Note Lay Chaudhry MD - 09/08/2023 PROCEDURE: MRI BRAIN WO CONTRAST, DATE/TIME OF EXAM: 09/07/2023 12:57AM, LOCATION [facility] INDICATION: I63.9: Ischemic stroke (CMS-HCC) ADDITIONAL CLINICAL INFORMATION: Ordering Provider Reason For Exam: Concern for acute ischemic stroke (left-sided weakness) Technologist Note: Does the patient have a pacemaker ordefibrillator?->No Does the patient have metal implants or stents?->No. Additional: None. EXAMINATION: Magnetic resonance imaging (MRI) of the brain withoutcontrast TECHNIQUE: MRI of the brain was performed without contrast according to standard protocol. COMPARISON: CT of the head and CT angiogram of the head and neck from 09/06/2023 FINDINGS: No evidence of acute or chronic hemorrhage is identified. A tiny focusof susceptibility in the left basal ganglia likely mineralization. Noevidence of acute cerebral infarction is seen. The ventricles are of stable size, shape, and morphology. No mass effect or midline shift is seen. Trace periventricular white matter FLAIR hyperintensity is a nonspecificfinding. There is a partial empty sella. The corpus callosum and sella appear otherwise grossly unremarkable. The posterior fossa, brainstem, and craniocervical junction appear normal. The visualized portions of the orbits appear grossly unremarkablehowever the optic nerve sheaths is are mildly tortuous. Suspected trace mucosal thickening in the ethmoid air cells. The paranasal sinuses appearotherwise grossly clear. The imaged mastoid air cells appear grossly clear..Normal flow voids are demonstrated in the carotid arteries and basilar artery.The calvarium and visualized cervical spine appear normal. IMPRESSION: 1.No evidence of restricted diffusion to suggest an acute infarction. 2.Fundus examination is recommended to exclude papilledema and/or the possibility of idiopathic intracranial hypertension (IIH), in the appropriate clinical setting. Results of this exam were communicated with closed loop confirmation toDr. Gildardo Lees by Dr. Chaudhry on 09/08/2023 at 6:46 AM was read back comprehension and verification. > Interpreting Provider: Lay Chaudhry MD on 09/08/2023 6:49 AM Timi Mills MD MR ORDERABLES * GLUCOSE - POINT OF CARE (09/06/2023 7:35 PM SPA ASSOCIATE) Glucose WB/POC 110 70 - 115 mg/dL 09/06/2023 7:47 PM SPA ASSOCIATE [facility] Specimen Type Cap Fingerstick 2023 7:47 PM SPA ASSOCIATE [facility] Blood BLOOD SPECIMEN / Unknown 09/06/2023 7:35 PM SPA ASSOCIATE 09/06/2023 7:47 PM SPA ASSOCIATE Manuel Peña MD LAB - POINT OF CARE ORDERABLES [address] [address], [facility] [phone] * CT ANGIO BRAIN AND NECK (09/06/2023 3:30 PM SPA ASSOCIATE) Anatomical Region Laterality Modality Head Computed Tomogra phy 09/06/2023 3:32 PM SPA ASSOCIATE Impressions 09/06/2023 3:41 PM SPA ASSOCIATE IMPRESSION: 1. No acute intracranial hemorrhage. 2. No large arterial occlusions or significant stenoses identified in the head or neck. Scattered atherosclerotic disease in the neck arteries. 3. 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 > Interpreting Provider: Romi Dtuton MD on 09/06/2023 3:41 PM Narrative 09/06/2023 3:41 PM SPA ASSOCIATE PROCEDURE: ??CT ANGIO BRAIN AND NECK, DATE/TIME [...] is seen. The sharma-white matter differentiation is normal. The visualized portions [...] mass effect or midline shift is seen.The sharma-white matter differentiation is normal. The visualized portions [...] PM Timi Mills MD CT ORDERABLES * TROPONIN-I HIGH SENSITIVE REFLEX 1HOUR (09/06/2023 12:00 PM SPA ASSOCIATE) Pathologist [facility] Troponin I High Sensitive <3 <=14 ng/L 09/06/2023 1:13 PM [facility] Delta Troponin I HS 09/06/2023 1:13 PM [facility] Comment:Delta value intentio katalina not calculated. Baseline to 1 hour specimen collection interval exceeded. Blood BLOOD SPECIMEN / Unknown Lab Venipuncture / Unknown 09/06/2023 12:00 PM SPA ASSOCIATE 09/06/2023 12:33 PM SPA ASSOCIATE Timi Mills MD LAB - CHEMISTRY ORD ERABLES Performing Organization Address City/[facility]/ZIP Co de Phone Number [address] [address], [place] [phone] * GLUCOSE - POINT OF CARE (09/06/2023 11:59 AM SPA ASSOCIATE) [facility] Glucose WB/POC 84 70 - 115 mg/dL 09/06/2023 12:04 PM [facility] Specimen Type Venous 09/06/2023 12:04 PM [facility] Blood BLOOD SPECIMEN / Unknown 09/06/2023 11:59 AM SPA ASSOCIATE 09/06/2023 12:04 PM SPA ASSOCIATE Timi Mills MD LAB - POINT OF CARE ORDERABLES Performing Organization Address City/[facility]/ZIP Co de Phone Number [address] [address], [place] [phone] * VAS CAROTID DUPLEX BILATERAL (09/06/2023 11:54 AM SPA ASSOCIATE) Anatomical Region Laterality Modality Neck Intravascular Ul trasound 09/06/2023 10:3 8 AM SPA ASSOCIATE Narrative Procedure Note Mark Salmeron MD - 09/09/2023 Timi Mills MD VASCULAR LAB ORDERA BLES * VAS TRANSCRANIAL DOPPLER COMP (09/06/2023 11:53 AM SPA ASSOCIATE) Anatomical Region Laterality Modality Head Intravascular Ul trasound 09/06/2023 10:5 2 AM SPA ASSOCIATE Narrative Procedure Note Timi Mills MD - 10/10/2023 Timi Mills MD VASCULAR LAB ORDERA BLES * ECHO LIMITED COLOR FLOW AND DOPPLER (09/06/2023 10:11 AM SPA ASSOCIATE) BSA [id number] m2 [facility] CV FUJ I PACS LV [...] 1.2 cm SSM CV FUJ I PACS [id number] 4.285 cm SSM CV FUJ I PACS [id number] 4.463 cm SSM CV FUJ I PACS [...] Laterality Modality Ultrasound Narrative 09/06/2023 10:58 AM SPA ASSOCIATE ?Left??Ventricle: Left ventricle size is normal. Mildly [...] I.V. Timi Mills MD ECHO CUPID * GLUCOSE - POINT OF CARE (09/06/2023 7:58 AM SPA ASSOCIATE) Glucose WB/POC 82 70 - 115 mg/dL 09/06/2023 8:04 AM SPA ASSOCIATE [facility] Specimen Type Cap Fingerstick 2023 8:04 AM SPA ASSOCIATE [facility] Blood BLOOD SPECIMEN / Unknown 09/06/2023 7:58 AM SPA ASSOCIATE 09/06/2023 8:04 AM SPA ASSOCIATE Timi Mills MD LAB - POINT OF CARE ORDERABLES Performing Organization Address City/State/[facility] Co de Phone Number [address] [address], [facility] [phone] * CT HEAD WO CONTRAST (09/06/2023 4:04 AM SPA ASSOCIATE) Anatomical Region Laterality Modality Head Computed Tomogra phy 09/06/2023 8:41 AM SPA ASSOCIATE Impressions 09/06/2023 9:03 AM SPA ASSOCIATE IMPRESSION: 1.No acute intracranial hemorrhage. > Dictated by Chriss Hebert DO (residential carpet installer). I, Lay Chaudhry MD have personally reviewed and interpreted this examination/study. > Interpreting Provider: Lay Chaudhry MD on 09/06/2023 9:03 AM Narrative 09/06/2023 9:03 AM SPA ASSOCIATE PROCEDURE: ??CT HEAD WO CONTRAST, DATE/TIME OF EXAM: ??09/06/2023 4:05 AM, LOCATION ??[facility] INDICATION: I63.9: Ischemic stroke ([facility]) ADDITIONAL CLINICAL INFORMATION: Ordering Provider Reason For [...] is seen. The sharma-white matter differentiation is normal. Periventricular white matter [...] [facility] INDICATION: I63.9: Ischemic stroke ([facility]) ADDITIONAL CLINICAL INFORMATION: Ordering Provider Reason [...] mass effect or midline shift is seen.The sharma-white matter differentiation is normal. Periventricular whitematter hypoattenuation [...] hemorrhage. > Dictated by Chriss Hebert DO (residential carpet installer). I, Lay Chaudhry MD have personally reviewed and interpretedthis examination/study. > Interpreting Provider: Lay Chaudhry MD on 09/06/2023 9:03 AM Timi Mills MD CT ORDERABLES * (ABNORMAL) URINALYSIS REFLEX TO MICROSCOPIC NO CULTURE (09/06/2023 2:58 AM SPA ASSOCIATE) Color UA Colorless(A ) Straw, Yellow 09/06/2023 3:17 AM [facility] Clarity UA Clear Clear 09/06/2023 3:17 AM [facility] Specific [place] UA 1.003(L) 1.005 - 1.030 09/06/2023 3:17 AM [facility] pH UA 7.0 5.0 - 8.0 pH 09/06/2023 3:17 AM [facility] Protein UA Negative Negative 09/06/2023 3:17 AM [facility] Glucose UA Negative Negative 09/06/2023 3:17 AM [facility] Ketone UA Negative Negative 09/06/2023 3:17 AM [facility] Bilirubin UA Negative Negative 09/06/2023 3:17 AM [facility] Blood UA Negative Negative 09/06/2023 3:17 AM [facility] Nitrite UA Negative Negative 09/06/2023 3:17 AM [facility] Leukocyte Esterase Negative Negative 09/06/2023 3:17 AM [facility] Urobilinogen UA Negative Negative mg/dL 09/06/2023 3:17 AM [facility] RBC UA 0-2 None Seen, 0-2, 3-5 /HPF 09/06/2023 3:17 AM [facility] WBC UA 0-5 None Seen, 0-5 /HPF 09/06/2023 3:17 AM [facility] Squamous Epithelial Cells UA None Seen None Seen, 0-2, 3-5 /HPF 09/06/2023 3:17 AM [facility] Urine URINE SPECIMEN OBTAINED BY CLEAN CATCH PROCEDURE / Unknown Collection / Unknown 09/06/2023 2:58 AM SPA ASSOCIATE 09/06/2023 3:10 AM [facility] - 09/06/2023 3:17 AM [facility] Timi Mills MD LAB - URINALYSIS OR DERABLES [facility] [address] [place] [address], [facility] [phone] * (ABNORMAL) URINE DRUG SCREEN IMMUNOASSAY (09/06/2023 2:58 AM SPA ASSOCIATE) Amphetamines Screen Urine Negative Negative : < 1000 ng/mL 09/06/2023 3:32 AM [facility] Barbiturates Screen Urine Negative Negative : < 200 ng/mL 09/06/2023 3:32 AM [facility] Benzodiazepine Screen Urine Negative Negative : < 200 ng/mL 09/06/2023 3:32 AM [facility] Opiates Urine Positive(A) Negative : < 300 ng/mL 09/06/2023 3:32 AM [facility] Comment:Positive urine opiat e screening results should be confirmed by another generally accepted non-immunological method such as gas chromatography or mass spectrometry. Cocaine Metabolites Urine Negative Negative : < 300 ng/mL 09/06/2023 3:32 AM [facility] Phencyclidine Screen Urine Negative Negative : < 25 ng/ml 09/06/2023 3:32 AM [facility] Cannabinoids Screen Urine Positive(A) Negative : <50 ng/mL 09/06/2023 3:32 AM [facility] Comment:Positive urine canna binoids (THC) screening results should be confirmed by another generally accepted non-immunological method such as gas chromatography or mass spectrometry. Methadone Screen Urine Negative Negative : < 300 ng/mL 09/06/2023 3:32 AM [facility] Fentanyl Screen Urine Negative Negative : <1.5 ng/mL 09/06/2023 3:32 AM [facility] Urine URINE / Unknown Collection / Unknown 09/06/2023 2:58 AM [facility] 09/06/2023 3:10 AM [facility] 09/06/2023 3:32 AM [facility] The Urine Toxicology Screening Panel does not screen for Propoxyphene, Meprobamate, Carisoprodol, Trazodone, [id number] medications and/or volatiles (Acetone, Isopropanol, Methanol or Ethylene Glycol). Ethanol, Salicylate, Acetaminophen, Tricyclic Antidepressants and several therapeutic drugs may be individually assayed in serum or plasma specimen. Toxicology testing by the [facility] is an aid to medical diagnosis and treatment of patients. No documented chain of custody was maintained. Results are intended to be used for clinical purposes only. ? Timi Mills MD LAB - URINE BOOKSEAMER BLINDSTITCH RY ORDERABLES Performing Organization Address [facility]/State/ZIP Co de Phone Number [facility] [address] [place] [address], [facility] [phone] * (ABNORMAL) CBC W AUTO DIFFERENTIAL (09/06/2023 1:46 AM [facility]) WBC 5.4 4.0 - 10.7 x10E9/L 09/06/2023 3:07 AM [facility] RBC Count 3.36(L) 3.90 - 5.20 x10E12/L 09/06/2023 3:07 AM [facility] Hemoglobin 10.2(L) 11.9 - 15.8 g/dL 09/06/2023 3:07 AM [facility] Hematocrit 31.3(L) 34.8 - 46.1 % 09/06/2023 3:07 AM [facility] MCV 93.2 80.0 - 98.0 fL 09/06/2023 3:07 AM [facility] MCH 30.4 26.7 - 33.6 pg 09/06/2023 3:07 AM [facility] MCHC 32.6 31.7 - 36.3 g/dL 09/06/2023 3:07 AM [facility] RDW-CV 13.0 11.3 - 14.8 % 09/06/2023 3:07 AM [facility] Platelet Count 281 150 - 420 x10E9/L 09/06/2023 3:07 AM [facility] MPV 9.9 7.8 - 11.4 fL 09/06/2023 3:07 AM [facility] Neutrophil % 55.4 41.0 - 74.0 % 09/06/2023 3:07 AM [facility] Lymphocyte % 34.4 17.0 - 47.0 % 09/06/2023 3:07 AM [facility] Monocyte % 7.2 3.0 - 11.0 % 09/06/2023 3:07 AM [facility] Eosinophil % 2.2 0.0 - 7.0 % 09/06/2023 3:07 AM [facility] Basophil % 0.6 0.0 - 1.6 % 09/06/2023 3:07 AM [facility] Immature Granulocytes % 0.2 0.0 - 1.0 % 09/06/2023 3:07 AM [facility] Neutrophil Absolute 2.98 1.60 - 7.50 x10E9/L 09/06/2023 3:07 AM [facility] Lymphocyte Absolute 1.85 1.00 - 4.40 x10E9/L 09/06/2023 3:07 AM [facility] Monocyte Absolute 0.39 0.15 - 1.00 x10E9/L 09/06/2023 3:07 AM [facility] Eosinophil Absolute 0.12 0.00 - 0.60 x10E9/L 09/06/2023 3:07 AM [facility] Basophil Absolute 0.03 0.00 - 0.13 x10E9/L 09/06/2023 3:07 AM [facility] Blood BLOOD SPECIMEN / Unknown Lab Venipuncture / Unknown 09/06/2023 1:46 AM SPA ASSOCIATE 09/06/2023 2:59 AM [facility] Timi Mills MD LAB - HEMATOLOGY OR DERABLES [facility] [address] [place] [address], [facility] [phone] * (ABNORMAL) BASIC METABOLIC PANEL (CALCIUM TOTAL) (09/06/2023 1:46 AM [facility]) BUN 6(L) 7 - 26 mg/dL 09/06/2023 3:28 AM [facility] Creatinine 0.87 0.56 - 0.96 mg/dL 09/06/2023 3:28 AM [facility] Sodium 144 136 - 145 mmol/L 09/06/2023 3:28 AM [facility] Potassium 3.1(L) 3.5 - 4.5 mmol/L 09/06/2023 3:28 AM [facility] Chloride 112(H) 98 - 107 mmol/L 09/06/2023 3:28 AM [facility] CO2 22 22 - 29 mmol/L 09/06/2023 3:28 AM [facility] Glucose 107 70 - 115 mg/dL 09/06/2023 3:28 AM [facility] Calcium 8.5 8.4 - 10.2 mg/dL 09/06/2023 3:28 AM [facility] Anion Gap 10 6 - 16 09/06/2023 3:28 AM [facility] BUN/Creatinine Ratio 7 7 - 23 09/06/2023 3:28 AM [facility] Osmolality Calculated 296(H) 275 - 295 mOsm/kg 09/06/2023 3:28 AM [facility] eGFR by CKD-EPI 78(L) >=90 mL/min/1.7 3 m2 09/06/2023 3:28 AM [facility] Blood BLOOD SPECIMEN / Unknown Lab Venipuncture / Unknown 09/06/2023 1:46 AM [facility] 09/06/2023 2:51 AM [facility] Timi Mills MD LAB - CHEMISTRY ORD ERABLES [facility] [address] [place] [address], [facility] [phone] * MAGNESIUM BLOOD (09/06/2023 1:46 AM [facility]) Magnesium 1.9 1.6 - 2.6 mg/dL 09/06/2023 3:28 AM [facility] Blood BLOOD SPECIMEN / Unknown Lab Venipuncture / Unknown 09/06/2023 1:46 AM SPA ASSOCIATE 09/06/2023 2:51 AM SPA ASSOCIATE Timi Mills MD LAB - CHEMISTRY ORD ERABLES Performing Organization Address City/[facility]/ZIP Co de Phone Number [address] [address], [place] [phone] * PHOSPHORUS BLOOD (09/06/2023 1:46 AM SPA ASSOCIATE) Phosphorus 2.9 2.9 - 5.1 mg/dL 09/06/2023 3:28 AM [facility] Blood BLOOD SPECIMEN / Unknown Lab Venipuncture / Unknown 09/06/2023 1:46 AM SPA ASSOCIATE 09/06/2023 2:51 AM [facility] ASSOCIATE Timi Mills MD LAB - CHEMISTRY ORD ERABLES Performing Organization Address City/[facility]/ZIP Co de Phone Number [address] [address], [place] [phone] * LIPID PROFILE (09/06/2023 1:46 AM SPA ASSOCIATE) Cholesterol Total 144 <200 mg/dL 09/06/2023 3:28 AM [facility] HDL 42 >40 mg/dL 09/06/2023 3:28 AM [facility] Comment: ATP III Classification of HDL Cholesterol: ? <40 mg/dL: ??Considered a major risk factor. ? >60 mg/dL: ??Considered a negative risk factor. ? LDL Calculated 86 <100 mg/dL 09/06/2023 3:28 AM [facility] Comment: ATP III Classification of LDL Cholesterol: ?<100 mg/dL: ??Optimal ? 100 - 129 mg/dL: ??Near Optimal/Above Optimal ? 130 - 159 mg/dL: ??Borderline High ? 160 - 189 mg/dL: ??High ?>190 mg/dL: ??Very High ? Triglycerides 79 <150 mg/dL 09/06/2023 3:28 AM [facility] Comment: ATP III Classification of Triglycerides: ?<150 mg/dL: ??Normal ? 150 - 199 mg/dL: ??Borderline High ? 200 - 400 mg/dL: ??High ?>500 mg/dL: ??Very High Blood BLOOD SPECIMEN / Unknown Lab Venipuncture / Unknown 09/06/2023 1:46 AM SPA ASSOCIATE 09/06/2023 2:51 AM SPA ASSOCIATE Tmii Mills MD LAB - CHEMISTRY ORD ERABLES Performing Organization Address [facility] Co de Phone Number [facility] [address] [place] [address], [place] [phone] * TROPONIN-I HIGH SENSITIVE BASELINE + 1HR (09/06/2023 1:46 AM SPA ASSOCIATE) Troponin I High Sensitive <3 <=14 ng/L 09/06/2023 3:32 AM [facility] Blood BLOOD SPECIMEN / Unknown Lab Venipuncture / Unknown 09/06/2023 1:46 AM SPA ASSOCIATE 09/06/2023 2:51 AM SPA ASSOCIATE Timi Mills MD LAB - CHEMISTRY ORD ERABLES Performing Organization Address City/[facility]/ZIP Co de Phone Number [facility] [address] [place] [address], [place] [phone] documented in this encounter Visit Diagnoses Diagnosis Ischemic stroke (HCC)- Primary Ischemic stroke (HCC) Muscle weakness (generalized) Kidney stone Calculus of kidney TIA (transient ischemic attack) Unspecified transient cerebral ischemia Left renal stone Anxiety Anxiety state, unspecified Abdominal tenderness in left flank Abdominal tenderness, unspecified site documented in this encounter Administered Medications Inactive Administered Medications - up to 3 most recent administrations Medication Order MAR Action Action Date Dose Rate Site 0.9% NaCl injection 1-10 mL 1-10 mL, Intracatheter, PRN, Other, peripheral line flush, Starting on Sat09/06/23 at 0129, Until 09/07/23 at 1835, Flush peripheral IV catheter with 1-10 mL of normal saline before and after medications and prn to clear blood from the line or to verify patency. 0.9% NaCl injection 3 mL 3 mL, Intracatheter, EVERY 8 HOURS, First dose on Sat09/06/23 at 0200, Until Discontinued, Flush peripheral IV catheter with 3 mL of normal saline every 8 hours. $ Given 09/06/2023 8:30 PM SPA ASSOCIATE 3 mL $ Given 09/06/2023 6:18 AM SPA ASSOCIATE 3 mL acetaminophen (Tylenol) tablet 1,000 mg 1,000 mg, Oral, EVERY 6 HOURS PRN, Mild Pain, Starting on Sat09/06/23 at 1750, Until 09/07/23 at 1151, Patient preference for lesser PRN pain meds may be honored when the patient requests a less strong medication, a lower dose, or a less intrusive route of administration when the lesser drug, dose and route have been ordered for the patient. This patient request must be documented in the MAR. $ Given 09/06/2023 5:30 PM SPA ASSOCIATE 1,000 mg acetaminophen (Tylenol) tablet 1,000 mg 1,000 mg, Oral, EVERY 6 HOURS, First dose (after last modification) on Sat09/07/23 at 1200, Until Discontinued, Patient preference for lesser PRN pain meds may be honored when the patient requests a less strong medication, a lower dose, or a less intrusive route of administration when the lesser drug, dose and route have been ordered for the patient. This patient request must be documented in the MAR. aspirin chew tablet 81 mg 81 mg, Oral, DAILY, First dose on Sat09/06/23 at 0900, Until Discontinued, May give aspirin PO or CA $ Given 09/07/2023 8:08 AM SPA ASSOCIATE 81 mg $ Given 09/06/2023 8:26 AM SPA ASSOCIATE 81 mg aspirin suppository 300 mg 300 mg, Rectal, DAILY, First dose on Sat09/06/23 at 0900, Until Discontinued, May give aspirin PO or CA atorvastatin (Lipitor) tablet 40 mg 40 mg, Oral, AT BEDTIME, First dose on Sat09/06/23 at 0215, Until Discontinued $ Given 09/06/2023 2:58 AM SPA ASSOCIATE 40 mg atorvastatin (Lipitor) tablet 80 mg 80 mg, Oral, AT BEDTIME, First dose (after last modification) on Sat09/06/23 at 2100, Until Discontinued $ Given 09/06/2023 8:29 PM SPA ASSOCIATE 80 mg clonazePAM (KlonoPIN) tablet 0.5 mg 0.5 mg, Oral, 3 TIMES DAILY, First dose on Sat09/06/23 at 0900, Until Discontinued $ Given 09/07/2023 2:10 PM SPA ASSOCIATE 0.5 mg $ Given 09/07/2023 8:08 AM SPA ASSOCIATE 0.5 mg $ Given 09/06/2023 8:29 PM SPA ASSOCIATE 0.5 mg clopidogrel (plaVIX) tablet 75 mg 75 mg, Oral, DAILY, First dose on Sat09/06/23 at 0900, Until Discontinued $ Given 09/07/2023 8:08 AM SPA ASSOCIATE 75 mg $ Given 09/06/2023 8:26 AM SPA ASSOCIATE 75 mg cyclobenzaprine (Flexeril) tablet 10 mg 10 mg, Oral, 3 TIMES DAILY, First dose on Sat09/06/23 at 0900, Until Discontinued $ Given 09/07/2023 2:10 PM SPA ASSOCIATE 10 m g $ Given 09/07/2023 8:08 AM SPA ASSOCIATE 10 mg $ Given 09/06/2023 8:29 PM SPA ASSOCIATE 10 mg heparin injection 5,000 Units 5,000 Units, Subcutaneous, EVERY 8 HOURS, First dose on Sat09/06/23 at 0600, Until Discontinued $ Given 09/07/2023 2:10 PM SPA ASSOCIATE 5,000 Units Abd Left Lower Quadrant $ Given 09/06/2023 8:29 PM SPA ASSOCIATE 5,000 Units A bd Left Lower Quadrant $ Given 09/06/2023 2:55 PM SPA ASSOCIATE 5,000 Units A bd Left Lower Quadrant hydrALAZINE (Apresoline) injection 10 mg 10 mg, Intravenous, EVERY 20 MIN PRN, Hypertension, see nursing instructions, Starting on Sat09/06/23 at 0131, Until Sat09/07/23 at 1835, Over 1-2 minutes until target BP is reached. Use if labetalol is ineffective or patient meets exclusion criteria for labetalol. iopamidol (Isovue 370) 76 % contrast Intravenous, CONTRAST ONCE, Starting on Sat09/06/23 at 1516, Until 09/07/23 at 1835 $ Given - Contrast 09/06/2023 3:17 PM SPA ASSOCIATE 75 mL labetalol (Normodyne; Trandate) injection 10 mg 10 mg, Intravenous, EVERY 15 MIN PRN, Hypertension, see nursing instructions, Starting on Sat09/06/23 at 0131, Until 09/07/23 at 1835, IVP over 1-2 minutes until target blood pressure goal is reached. If BP out of goal range after 2 doses may use alternative agent or contact physician. Cumulative dose not to exceed 300 mg/24 hrs. Exclusion criteria for Labetolol: Asthma, Cardiac Failure, Heart Block, Heart rate less than 60, or Severe Cardiac Abnormalites. lidocaine (Lidoderm) 5 % patch 2 patch 2 patch, Administer over 12 Hours, EVERY 24 HOURS, First dose (after last modification) on 09/07/23 at 1745, Until Discontinued, Apply to lower back and remove patch after a max of 12 hours of application within a 24 hour period. oxyCODONE (immediate release) (Roxicodone) tablet 5 mg 5 mg, Oral, ONCE, 1 dose, On Sat09/06/23 at 1800, Patient preference for lesser PRN pain meds may be honored when the patient requests a less strong medication, a lower dose, or a less intrusive route of administration when the lesser drug, dose and route have been ordered for the patient. This patient request must be documented in the MAR. $ Given 09/06/2023 6:13 PM SPA ASSOCIATE 5 mg oxyCODONE (immediate release) (Roxicodone) tablet 5 mg 5 mg, Oral, EVERY 8 HOURS PRN, Severe Pain, Starting on 09/07/23 at 1150, Until 09/07/23 at 1835, Patient preference for lesser PRN pain meds may be honored when the patient requests a less strong medication, a lower dose, or a less intrusive route of administration when the lesser drug, dose and route have been ordered for the patient. This patient request must be documented in the MAR. $ Given 09/07/2023 12:14 PM SPA ASSOCIATE 5 mg polyethylene glycol 3350 (Miralax) powder 17 g 17 g, Oral, DAILY, First dose on Sat09/06/23 at 0900, Until Discontinued, Mix in 8 ounces of water, juice, soda, coffee or tea prior to administration $ Given 09/07/2023 8:09 AM SPA ASSOCIATE 17 g potassium chloride (Klor-Con) packet 40 mEq 40 mEq, Oral, ONCE, 1 dose, On Sat09/06/23 at 0800, DISSOLVE IN 120 ML OF COLD WATER OR JUICE AND DRINK SLOWLY $ Given 09/06/2023 8:26 AM SPA ASSOCIATE 40 mEq traZODone (Desyrel) tablet 150 mg 150 mg, Oral, AT BEDTIME PRN, Insomnia, Starting on Sat09/06/23 at 0143, Until 09/07/23 at 1835 $ Given 09/07/2023 1:06 AM SPA ASSOCIATE 150 mg $ Given 09/06/2023 3:39 AM SPA ASSOCIATE 150 mg documented in this encounter Active and Recently Administered Medications Times are shown in SPA ASSOCIATE. Scheduled Medication Order 09/05/2023 09/06/2023 09/07/2023 0.9% NaCl injection 3 mL(Linked Group 1) 3 mL, Intracatheter, EVERY 8 HOURS, First dose on Sat09/06/23 at 0200, Until Discontinued, Flush peripheral IV catheter with 3 mL of normal saline every 8 hours. 0250 (Not Administered - Provider: Garima Nunez RN - Reason: See Comments - Comment: will flush at 0600)0618 ($ Given - Provider: Garima Nunez RN)1529 (Not Administered - Provider: Theo Villarreal RN - Reason: IV Currently Infusing)2030 ($ Given - Provider: Oracio Gandhi RN) 0630 (Canceled Entry - Provider: Oracio Gandhi RN)1313 (Not Administered - Provider: Tawanda Theodore RN - Reason: Loss of Access) acetaminophen (Tylenol) tablet 1,000 mg 1,000 mg, Oral, EVERY 6 HOURS, First dose (after last modification) on 09/07/23 at 1200, Until Discontinued, Patient preference for lesser PRN pain meds may be honored when the patient requests a less strong medication, a lower dose, or a less intrusive route of administration when the lesser drug, dose and route have been ordered for the patient. This patient request must be documented in the MAR. 1214 (Not Administer ed - Provider: Tawanda Theodore RN - Reason: Refused-Patient) aspirin chew tablet 81 mg(Linked Group 2) 81 mg, Oral, DAILY, First dose on Sat09/06/23 at 0900, Until Discontinued, May give aspirin PO or CA 08 ($ Given - Provider: Theo Villarreal RN) 0808 ($ Given - Provider: Tawanda Theodore RN) aspirin suppository 300 mg(Linked Group 2) 300 mg, Rectal, DAILY, First dose on Sat09/06/23 at 0900, Until Discontinued, May give aspirin PO or CA 08 (See Alternative - Provider: Theo Villarreal RN) 0808 (See Alternative - Provider: Tawanda Theodore RN) atorvastatin (Lipitor) tablet 40 mg (CANCELED) 40 mg, Oral, AT BEDTIME, First dose on Sat09/06/23 at 0215, Until Discontinued 257 ($ Given - Provider: Garima Nunez RN) atorvastatin (Lipitor) tablet 80 mg 80 mg, Oral, AT BEDTIME, First dose (after last modification) on Sat09/06/23 at 2100, Until Discontinued 2028 ($ Given - Provider: Oracio Gandhi RN) clonazePAM (KlonoPIN) tablet 0.5 mg 0.5 mg, Oral, 3 TIMES DAILY, First dose on Sat09/06/23 at 0900, Until Discontinued 825 ($ Given - Provider: Theo Villarreal RN)1455 ($ Given - Provider: Theo Villarreal RN)2028 ($ Given - Provider: Oracio Gandhi RN) 0808 ($ Given - Provider: Tawanda Theodore RN)1410 ($ Given - Provider: Tawanda Theodore RN) clopidogrel (plaVIX) tablet 75 mg 75 mg, Oral, DAILY, First dose on Sat09/06/23 at 0900, Until Discontinued 825 ($ Given - Provider: Theo Villarreal RN) 0808 ($ Given - Provider: Tawanda Theodore RN) cyclobenzaprine (Flexeril) tablet 10 mg 10 mg, Oral, 3 TIMES DAILY, First dose on Sat09/06/23 at 0900, Until Discontinued 825 ($ Given - Provider: Theo Villarreal RN)1455 ($ Given - Provider: Theo Villarreal RN)2028 ($ Given - Provider: Oracio Gandhi RN) 0808 ($ Given - Provider: Tawanda Theodore, RN)1410 ($ Given - Provider: Tawanda Theodore RN) heparin injection 5,000 Units 5,000 Units, Subcutaneous, EVERY 8 HOURS, First dose on Sat09/06/23 at 0600, Until Discontinued 0618 ($ Given - Provider: Garima Nunez RN)1455 ($ Given - Provider: Theo Villarreal RN)202 ($ Given - Provider: Oracio Gandhi RN) 0630 (Not Administered - Provider: Oracio Gandhi RN - Reason: Patient sleeping)1410 ($ Given - Provider: Tawanda Theodore RN) iopamidol (Isovue 370) 76 % contrast Intravenous, CONTRAST ONCE, Starting on Sat09/06/23 at 1516, Until 09/07/23 at 1835 1517 ($ Given - Contrast - Provider: Nette Martinez, RT(R)) lidocaine (Lidoderm) 5 % patch 2 patch 2 patch, Administer over 12 Hours, EVERY 24 HOURS, First dose (after last modification) on 09/07/23 at 1745, Until Discontinued, Apply to lower back and remove patch after a max of 12 hours of application within a 24 hour period. oxyCODONE (immediate release) (Roxicodone) tablet 5 mg (COMPLETED) 5 mg, Oral, ONCE, 1 dose, On Sat09/06/23 at 1800, Patient preference for lesser PRN pain meds may be honored when the patient requests a less strong medication, a lower dose, or a less intrusive route of administration when the lesser drug, dose and route have been ordered for the patient. This patient request must be documented in the OCT. 1812 ($ Given - Provider: Theo Villarreal RN) polyethylene glycol 3350 (Miralax) powder 17 g 17 g, Oral, DAILY, First dose on Sat09/06/23 at 0900, Until Discontinued, Mix in 8 ounces of water, juice, soda, coffee or tea prior to administration 0827 (Not Administered - Provider: Theo Villarreal RN - Reason: Refused-Patient) 0809 ($ Given - Provider: Tawanda Theodore RN) potassium chloride (Klor-Con) packet 40 mEq (COMPLETED) 40 mEq, Oral, ONCE, 1 dose, On Sat09/06/23 at 0800, DISSOLVE IN 120 ML OF COLD WATER OR JUICE AND DRINK SLOWLY 08 ($ Given - Provider: Thoe Villarreal RN) tamsulosin (Flomax) capsule 0.4 mg 0.4 mg, Oral, DAILY, First dose on 09/07/23 at 1030, Until Discontinued, At the same time every day after a meal. Do not crush or chew. May open capsule and administer contents per tube. J-tube administration is not appropriate as the small lumen would necessitate crushing of granules. 1118 (Not Administer ed - Provider: Tawanda Theodore RN - Reason: Refused-Patient) PRN Medication Order 09/05/2023 09/06/2023 09/07/2023 0.9% NaCl injection 1-10 mL(Linked Group 1) 1-10 mL, Intracatheter, PRN, Other, peripheral line flush, Starting on Sat09/06/23 at 0129, Until 09/07/23 at 1835, Flush peripheral IV catheter with 1-10 mL of normal saline before and after medications and prn to clear blood from the line or to verify patency. acetaminophen (Tylenol) tablet 1,000 mg (CANCELED) 1,000 mg, Oral, EVERY 6 HOURS PRN, Mild Pain, Starting on Sat09/06/23 at 1750, Until 09/07/23 at 1151, Patient preference for lesser PRN pain meds may be honored when the patient requests a less strong medication, a lower dose, or a less intrusive route of administration when the lesser drug, dose and route have been ordered for the patient. This patient request must be documented in the MAR. 173 ($ Given - Provider: Theo Villarreal RN) hydrALAZINE (Apresoline) injection 10 mg(Linked Group 3) 10 mg, Intravenous, EVERY 20 MIN PRN, Hypertension, see nursing instructions, Starting on Sat09/06/23 at 0131, Until 09/07/23 at 1835, Over 1-2 minutes until target BP is reached. Use if labetalol is ineffective or patient meets exclusion criteria for labetalol. labetalol (Normodyne; Trandate) injection 10 mg(Linked Group 3) 10 mg, Intravenous, EVERY 15 MIN PRN, Hypertension, see nursing instructions, Starting on Sat09/06/23 at 0131, Until 09/07/23 at 1835, IVP over 1-2 minutes until target blood pressure goal is reached. If BP out of goal range after 2 doses may use alternative agent or contact physician. Cumulative dose not to exceed 300 mg/24 hrs. Exclusion criteria for Labetolol: Asthma, Cardiac Failure, Heart Block, Heart rate less than 60, or Severe Cardiac Abnormalites. ondansetron (disintegrating) (Zofran ODT) tablet 8 mg 8 mg, Oral, EVERY 6 HOURS PRN, Nausea/Vomiting, Starting on Sat09/06/23 at 0143, Until 09/07/23 at 1835, Dissolved orally on tongue oxyCODONE (immediate release) (Roxicodone) tablet 5 mg 5 mg, Oral, EVERY 8 HOURS PRN, Severe Pain, Starting on 09/07/23 at 1150, Until 09/07/23 at 1835, Patient preference for lesser PRN pain meds may be honored when the patient requests a less strong medication, a lower dose, or a less intrusive route of administration when the lesser drug, dose and route have been ordered for the patient. This patient request must be documented in the MAR. 1214 ($ Given - Provider: Tawanda Theodore RN) traZODone (Desyrel) tablet 150 mg 150 mg, Oral, AT BEDTIME PRN, Insomnia, Starting on Sat09/06/23 at 0143, Until 09/07/23 at 1835 0339 ($ Given - Provider: Garima Nunez RN) 0106 ($ Given - Provider: Oracio Gandhi RN) Linked Groups Order Group 1: SALINE LOCK, INSERT AND MAINTAIN (CANCELED) Routine, CONTINUOUS, Starting on Sat09/06/23 at 0130, Until Specified, New collection And 0.9% NaCl injection 3 mLJump to med 3 mL, Intracatheter, EVERY 8 HOURS, First dose on Sat09/06/23 at 0200, Until Discontinued, Flush peripheral IV catheter with 3 mL of normal saline every 8 hours. And 0.9% NaCl injection 1-10 mLJump to med 1-10 mL, Intracatheter, PRN, Other, peripheral line flush, Starting on Sat09/06/23 at 0129, Until 09/07/23 at 1835, Flush peripheral IV catheter with 1-10 mL of normal saline before and after medications and prn to clear blood from the line or to verify patency. Group 2: aspirin chew tablet 81 mgJump to med 81 mg, Oral, DAILY, First dose on Sat09/06/23 at 0900, Until Discontinued, May give aspirin PO or CA Or aspirin suppository 300 mgJump to med 300 mg, Rectal, DAILY, First dose on Sat09/06/23 at 0900, Until Discontinued, May give aspirin PO or CA Group 3: labetalol (Normodyne; Trandate) injection 10 mgJump to med 10 mg, Intravenous, EVERY 15 MIN PRN, Hypertension, see nursing instructions, Starting on Sat09/06/23 at 0131, Until 09/07/23 at 1835, IVP over 1-2 minutes until target blood pressure goal is reached. If BP out of goal range after 2 doses may use alternative agent or contact physician. Cumulative dose not to exceed 300 mg/24 hrs. Exclusion criteria for Labetolol: Asthma, Cardiac Failure, Heart Block, Heart rate less than 60, or Severe Cardiac Abnormalites. Or hydrALAZINE (Apresoline) injection 10 mgJump to med 10 mg, Intravenous, EVERY 20 MIN PRN, Hypertension, see nursing instructions, Starting on Sat09/06/23 at 0131, Until 09/07/23 at 1835, Over 1-2 minutes until target BP is reached. Use if labetalol is ineffective or patient meets exclusion criteria for labetalol. documented in this encounter Additional Health Concerns Infection Onset Date Last Indicated Resolved Time COVID-19 Under Investigation 09/07/2023 09/07/2023 09/07/2023 12:57 PM SPA ASSOCIATE documented as of this encounter Care Teams Community Center Coordinator Relationship Specialty Start Date End Date Fernando Chavez MD [address] [place] [address] PCP - General Family Medicine 09/06/23 documented as of this encounter
--- OUTSIDE RECORDS SUMMARY | 2024-08-08 16:02 | XMS_ITS | CONTINUITY OF CARE DOCUMENT ---
Author Name doyle kwon Address Unknown Organization [facility] Address [address] [facility] [address] [facility] [address] [place] [address] Phone [phone] Care Team Providers Care Nipple Maker Name Role Phone Iglesia Osorio MD Unavailable DONTE PAT MD Unavailable DONTE PAT MD Unavailable [phone] INSURANCE PROVIDERS Payer name Policy type / Coverage type Juana Diaz red libertarian ID [facility] [id number]
--- OUTSIDE RECORDS SUMMARY | 2024-08-08 16:02 | XMS_ITS | Encounter Summary ---
Author Organization [facility] Address [address] [place] [address] Care Team Providers Care Pharmacy Innovation Assistant Name Role Phone Fernando Chavez MD Primary Care Provider [phone] Encounter Details Date Type Department Care Team (Latest Contact Info) Description 06/25/2024 1:[address] OPENINGS INSPECTOR - 06/25/2024 11:[address] OPENINGS INSPECTOR Hospital Encounter [facility] Emergency, Room R Discharge Disposition: Discharge to home or self care Social History Tobacco Use Types Packs/Day Years Used Date Smoking Tobacco: Former Cigarettes 2 26.6 1 982 - 03/19/2008 E-cigarettes Smokeless Tobacco: Never Alcohol Use Standard Drinks/Week [...] 02/09/2021 How often do you attend chur ch or amish services? 1 to 4 times per year 02/09/2021 Do you belong to any clubs o r organizations such as synagogue groups, unions, fraternal or athletic groups, or [...] on file Legal Sex Female 5:[address] OPENINGS INSPECTOR Gender Identity Not on file Sexual Orientation Not on file documented as of this encounter Medications at Time of Discharge acetaminophen 500 mg capsuleIndications: Pain Take 2 capsules (1,000 mg total) by mouth every 6 (six) hours 30 tablet 4 alendronate (FOSAMAX) 70 mg tabletIndications:P ost-Menopausal Osteoporosis Take 70 mg by mouth every 7 days Take in the morning with a full glass of water, on an empty stomach, and do not take anything else by mouth or lie down for the next 30 min. saturday aspirin 81 mg enteric coated tablet Take 1 tablet (81 mg total) by mouth every other day atorvastatin (LIPITOR) 20 mg tablet Take 1 tablet (20 mg total) by mouth nightly 1 calcium carbonate-vitamin D3 (CALTRATE 600 + D) 1500 mg (600 mg elemental) -400 units per tablet Take 1 tablet by mouth 2 (two) times a day 1 clotrimazole-betame thasone (LOTRISONE) cream Apply 1 application topically daily 0 dicyclomine (BENTYL) 10 mg capsuleIndications: Irritable Bowel Syndrome Take 10 mg by mouth 3 (three) times a day 0 docusate sodium (COLACE) 100 mg capsuleIndications: constipation Take 100 mg by mouth daily fluticasone propionate (FLONASE) 50 mcg/actuation nasal spray Administer 2 sprays into each nostril daily isosorbide mononitrate ER (IMDUR) 30 mg 24 hr tablet isosorbide mononitrate ER 30 mg tablet,extended release 24 hr 1 lidocaine (ASPERCREME) 4 % adhesive patch,medicated Place 1 patch on the skin daily 10 patch 4 methocarbamoL (ROBAXIN) 500 mg tablet Take 1 tablet (500 mg total) by mouth 3 (three) times a day 4 naloxone (NARCAN) 4 mg/actuation spray,non-aerosol Administer 1 spray into affected nostril(s) as needed for opioid reversal or respiratory depression Call 911. Administer a single spray in one nostril. Repeat every 3 minutes as needed if no or minimal response. 1 each 4 nitroglycerin (NITROSTAT) 0.4 mg SL tablet nitroglycerin 0.4 mg sublingual tablet 1 ondansetron ODT (ZOFRAN-ODT) 4 mg disintegrating tabletIndications:N ausea and Vomiting Take 1 tablet (4 mg total) by mouth every 6 (six) hours as needed for nausea or vomiting 20 tablet 1 oxyCODONE (ROXICODONE) 5 mg immediate release tabletIndications:P ain,pain Take 1 tablet (5 mg total) by mouth every 6 (six) hours as needed for pain [address] (PROTONIX) 40 mg EC tablet Take 40 mg by mouth every morning 1 polyethylene glycol (MIRALAX) 17 gram packetIndications:c onstipation Take 17 g by mouth daily with lunch senna-docusate (PERICOLACE) 8.6-50 mgIndications:const ipation Take 1 tablet by mouth daily 30 tablet 4 documented as of this encounter Discharge Disposition Disposition Code Departure Means Destination Discharge to home or self care documented in this encounter Plan of Treatment Not on file documented as of this encounter Visit Diagnoses Not on filedocumented in this encounter Care Teams Pharmacy Innovation Assistant Relationship Specialty Start Date End Date Fernando Chavez MD [address] [place] [id number] PCP - General Family Medicine 03/05/24 documented as of this encounter
--- OUTSIDE RECORDS SUMMARY | 2024-08-08 16:02 | XMS_ITS | Encounter Summary ---
Author Organization [facility] Address [address] [place] [address] Care Team Providers Care Husbandry Person Name Role Phone Fernando Chavez MD Primary Care Provider [phone] Reason for Visit * Reason Onset Date Comments Future Appointment 09/10/2023 Encounter Details Date Type Department Care Team (Late st Contact Info) Description 09/10/2023 Telephone [facility] - Neurology [address] [facility] [facility] [place] [id number] Timi Mills MD [address] [place] [address] Future Appointment Social History Tobacco Use Types Packs/Day Years [...] Yes 09/06/2023 documented as of this encounter Miscellaneous Notes * Telephone Encounter - Cee Suggs LPN - 09/10/2023 10:08 AM SANITATION WORKER CLEANING MACHINERY Called pt re: scheduling diagnostic cerebral angiogram with possible R subclavian stent with Dr. Mills. Pt's voicemail box is full so unable to leave a message. TATION WORKER CLEANING MACHINERY documented in this encounter Plan of Treatment Not on file documented as of this encounter Visit Diagnoses Not on filedocumented in this encounter Care Teams Husbandry Person Relationship Specialty Start Date End Date Fernando Chavez MD [address] [place] [address] PCP - General Family Medicine 09/06/23 documented as of this encounter
--- OUTSIDE RECORDS SUMMARY | 2024-08-08 16:02 | XMS_ITS | Encounter Summary ---
Author Organization [facility] Address [address] [place] [address] Phone Care Team Providers Care Insurance Agency Manager Name Role Phone Lazarus Albert MD Primary Care Provider [phone] Reason for Visit * Reason Onset Date Comments Scheduling Appointments 09/12/2021 Encounter Details Date Type Department Care Team (Late st Contact Info) Description 09/12/2021 Telephone [facility] Surgery [address] Advanced Medicine 8th [place] [address] [place] [address] Rosa Elena Horta RMA Scheduling Appointments Social History Tobacco Use Types Packs/Day Years [...] often do you attend chur ch or sabianist services? 1 to 4 times per year 02/09/2021 Do you belong to any clubs o r organizations such as zoroastrian groups, unions, fraternal or athletic groups, or [...] things needed for daily living? No 02/09/2021 Comments No Sex and Gender Information Value Date Recorded Sex Assigned at Not on file Legal Sex Female 5:42 AM CLEANING VALIDATION CONSULTANT Gender Identity Not on file Sexual Orientation Not on file documented as of this encounter Miscellaneous Notes * Telephone Encounter - Rosa Elena Horta RMA - 09/12/2021 2:53 PM CST LVMM for patient to return my call in regards to rescheduling her appt for 09/13/21 we had to cancel her appt due to the weather. 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
--- OUTSIDE RECORDS SUMMARY | 2024-08-08 16:02 | XMS_ITS | Encounter Summary ---
Author Organization [facility] Healthcare Address [address] [place] [address] Care Team Providers Care Coo Name Role Phone Fernando Chavez MD Primary Care Provider [phone] Encounter Details Date Type Department Care Team (Latest Contact Info) Description 03/25/2024 10:23 AM CDT - 03/25/2024 11:59 PM CDT Hospital Encounter [facility] [address] [place] [address] Closed fracture of multiple ribs of left side, initial encounter Discharge Disposition: Discharge to home or self [...] often do you attend chur ch or zoroastrianism services? 1 to 4 times per year 02/09/2021 Do you belong to any clubs o r organizations such as samaritan groups, unions, fraternal or athletic groups, or [...] on file Legal Sex Female 5:42 AM TANK WORKER Gender Identity Not on file Sexual Orientation [...] Procedure Name Priority Date/Time Associated Diagnosis Comments XR CHEST PA LATERAL 2 VIEWS Schedule Routine, Read Routine (OP Routine) 03/25/2024 10:36 AM CDT Closed fracture of multiple ribs of left side, initial encounter documented in this encounter Results * XR Chest PA Lateral 2 Views (03/25/2024 10:36 AM CDT) Anatomical Region Laterality Modality Body, Chest N/A Computed Radiogr aphy 03/25/2024 10:3 9 AM CDT Impressions 03/25/2024 10:39 AM CDT Comparison is made to prior chest radiograph dated 03/05/2024. There are multiple left-sided rib fracture deformities. A staple line is noted in the left lung apex. ??There is no new lobar consolidation. ??No pleural effusion or pneumothorax. Heart size is stable. Electronically signed by: Alena Cornejo M.D. Narrative 03/25/2024 10:39 AM CDT EXAMINATION: 2 view chest radiograph Procedure Note Alena Bradley MD - 03/25/2024 EXAMINATION: 2 view chest radiograph IMPRESSION: Comparison is made to prior chest radiograph dated 03/05/2024. There are multiple left-sided rib fracture deformities. A staple line is noted in the left lung apex. There is no new lobar consolidation. No pleural effusion or pneumothorax. Heart size is stable. Electronically signed by: Alena Cornejo M.D. Nicole Pierson LATHE SET UP PERSON IMG XR PROCEDURES Final Result documented in this encounter Visit Diagnoses Diagnosis Closed fracture of multiple ribs of left side, initial encounter documented in this encounter Care Teams Coo Relationship Specialty Start Date End Date Fernando Chavez MD [address] [place] [id number] PCP - General Family Medicine 03/05/24 documented as of this encounter
--- OUTSIDE RECORDS SUMMARY | 2024-08-08 16:02 | XMS_ITS | Encounter Summary ---
Author Organization [facility] Address [address] [place] [address] Care Team Providers Care Shop Assistant Name Role Phone Unavailable Primary Care Provider Unavailabl e Encounter Details Date Type Department Care Team (Late st Contact Info) Description 02/07/1996 Orders Only [facility] [address] [place] [address] ProviderYuriy MD Social History Tobacco Use Types [...] Associated Diagnosis Comments GROSS + MICRO EXAM [facility] 02/07/1996 3: 07 PM CDT documented in this encounter Results * GROSS + MICRO EXAM (02/07/1996 3:07 PM CDT) Result CASE NUMBER [id number] Comment: ORDERING PHYSICIAN ??ANA ANGLIN SPECIMEN TYPE ?[id number] Date ? 02/07/1996 Physician ?Jose Anglin Description ? Received labeled uterus NIDHI-BSO is a uterus weighing 90 grams and measuring 7.5 x 5 x 2.5 cm in approximate dimension. ??The outside surface is generally smooth and shiny with focal areas of surgical artifacts. ??The cervical mucosa is without focal lesions. ??The uterus is uniform delgado-white color and measures 5 cm in length. ??The endometrial cavity measures 3 x 2 x 1 cm in dimension and is lined by delgado soft tissue. ??The myometrium is uniform delgado-white color and measures 1.3 cm in average thickness. ??There are no leiomyomata identified. ??The attached right ovary measures 3 x 2 x 1 cm in overall dimension. ??On cut surface there are focal cystic areas present measuring up to 6 mm in diameter. ??The attached segment of fallopian tube measures 4 cm in length x 2 mm in diameter and is focally adherent to the surface of the ovary. ??The previously detached left ovary is grossly cystic round and measures 5 cm in diameter. ??Upon sectioning the ovary 50 cc of red fluid is released. ??The cyst wall measures 1 mm in thickness throughout. There is no identifiable fallopian tube present. ??Sections are submitted as follows ?? A and B - cervix, C,D, and E - endometrium and myometrium, F - left ovary, G - right ovary. ??Extra sections from the left ovary are submitted labeled as H. ??No fallopian tube is identified on this side. ??Extra sections from the right ovary and the fallopian tube are submitted labeled as I and J. ??SF/br Microscopic Exam ? Sections of the cervix reveal squamocolumnar lined tissue fragments with areas of squamous metaplasia. ??No dysplasia is seen. ??The stroma shows mild patchy chronic inflammatory cell infiltration. Sections of the endometrium reveal proliferative phase endometrium. No evidence of hyperplasia, atypia or malignancy is seen. Sections of the myometrium is unremarkable. Sections of the left ovary reveals a follicular cyst of benign nature. ??The cyst is lined by a single and double layer of granulosal cells. ??An inner thicker layer is also identified focally. ??The stroma underlying shows fresh hemorrhage. ??No evidence of any endometriosis is seen. Serosal fibrous adhesions are noted. ??No fallopian tube is identified. ??Section labeled G reveals follicular cyst of benign nature. ??Serosal fibrose adhesions are seen. ??No endometriosis is noted. Section labeled H are taken from the ovarian cyst reveal follicular cyst as described previously.The cells show luteinization. ??Also seen is a section of the fallopian tube. ??No evidence of malignancy is seen. Section labeled I J reveal a section of the unremarkable fallopian tube. ??Section of the ovary reveals dissolving corpus luteum. ??None of the sections reveal any malignancy. Diagnosis ?I. ??Uterus, cervix ?A. ??Squamous metaplasia with chronic cervicitis. ?B. ??Proliferative phase endometrium. ? II. ??Right ovary ?A. ??Serosal fibrous adhesions. ?B. ??Follicular cyst. ?III. ??Right fallopian tube ?A. ??No pathologic diagnosis. ? IV. ??Left ovary ?A. ??Follicular cyst, benign. ?V. ??Left fallopian tube ?A. ??No pathologic diagnosis. *Snomed Code 1 ? [id number] - [id number] - [id number] - [id number] - [id number] - [id number] - [id number] - [id number] - [id number] Chief Librarian Work With Blind ? br Pathologist ?Hailee Rivera M.D. MISCELLANEOUS SAMPLES / Unknown 02/07/1996 3:07 PM CDT 02/07/1996 3:08 PM CDT Historical Provider LAB - PATHOLOGY/C YTOLOGY ORDERABLES documented in this encounter Visit Diagnoses Not on filedocumented in this encounter
--- OUTSIDE RECORDS SUMMARY | 2024-08-08 16:02 | XMS_ITS | Encounter Summary ---
Author Organization [facility] Healthcare Address [address] [place] [place] [address] Care Team Providers Care Engine Watchman Name Role Phone Lazarus Albert MD Primary Care Provider [phone] Reason for Visit * Reason Comments Chest Pain Abdominal Pain Encounter Details Date Type Department Care Team (Late st Contact Info) Description 06/28/2021 10:12 PM QUALITY CONTROL MICROBIOLOGY SUPERVISOR - 07/02/2021 10:06 AM QUALITY CONTROL MICROBIOLOGY SUPERVISOR Emergency [address] [id number] Luis Felipe Klesey MD [address] [facility] [place] [phone] [place] [address] Osvaldo Taylor MD [address] [place] [address] Genet Escobedo MD [address] [place] [address] Megan Crockett MD [address] [place] [address] [address] [place] [address] Constipation, unspecified constipation type (Primary Dx); Right hip pain; Chest pain, unspecified type; Abdominal pain; 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 1 to 4 times per year 02/09/2021 Do you belong to any clubs o r organizations such as tenriism groups, unions, fraternal or athletic groups, or [...] on file Legal Sex Female 5:42 AM QUALITY CONTROL MICROBIOLOGY SUPERVISOR Gender Identity Not on file Sexual Orientation Not on file documented as of this encounter Last Filed Vital Signs Vital Sign Reading Time Taken Comments Blood Pressure 118/65 07/02/2021 8:10 AM QUALITY CONTROL MICROBIOLOGY SUPERVISOR Pulse 68 07/02/2021 8:10 AM QUALITY CONTROL MICROBIOLOGY SUPERVISOR Temperature 36.8 ??C (98.24 ??F) 07/02/2021 8:[address] Respiratory Rate 20 07/02/2021 8:10 AM QUALITY CONTROL MICROBIOLOGY SUPERVISOR Oxygen Saturation 96% 07/02/2021 8:10 AM QUALITY CONTROL MICROBIOLOGY SUPERVISOR Inhaled Oxygen Concentration - - Weight 52 kg (114 lb 11.2 oz) 06/29/2021 2:25 PM QUALITY CONTROL MICROBIOLOGY SUPERVISOR Height 162.6 cm (5' 4 ) 06/29/2021 2:25 PM QUALITY CONTROL MICROBIOLOGY SUPERVISOR Body Mass Index 19.69 06/29/2021 2:25 PM QUALITY CONTROL MICROBIOLOGY SUPERVISOR documented in this encounter Discharge Diagnoses Diagnosis Constipation, unspecified - CONSTIPATION, UNSPECIFIED Unspecified abdominal pain - UNSPECIFIED ABDOMINAL PAIN Generalized anxiety disorder - GENERALIZED ANXIETY DISORDER Hypotension, unspecified - HYPOTENSION, UNSPECIFIED Pain in unspecified knee - PAIN IN UNSPECIFIED KNEE Pain in right hip - PAIN IN RIGHT HIP Endometriosis, unspecified - ENDOMETRIOSIS, UNSPECIFIED Essential (primary) hypertension - ESSENTIAL (PRIMARY) HYPERTENSION Unspecified essential hypertension Mixed hyperlipidemia - MIXED HYPERLIPIDEMIA Fall on same level from slipping, tripping and stumbling without subsequent striking against object, initial encounter - FALL ON SAME LEVEL FROM SLIPPING, TRIPPING AND STUMBLING WITHOUT SUBSEQUENT STRIKING AGAINST OBJECT, Exposure to other specified factors, initial encounter - EXPOSURE TO OTHER SPECIFIED FACTORS, INITIAL ENCOUNTER Activity, unspecified - ACTIVITY, UNSPECIFIED Unspecified place or not applicable - UNSPECIFIED PLACE OR NOT APPLICABLE Unspecified external cause status - UNSPECIFIED EXTERNAL CAUSE STATUS Personal history of other venous thrombosis and embolism - PERSONAL HISTORY OF OTHER VENOUS THROMBOSIS AND EMBOLISM Personal history of nicotine dependence - PERSONAL HISTORY OF NICOTINE DEPENDENCE Acquired absence of other specified parts of digestive tract - ACQUIRED ABSENCE OF OTHER SPECIFIED PARTS OF DIGESTIVE TRACT long term acute care registered nurse (current) use of anticoagulants - RETAIL STORE ASSISTANT (CURRENT) USE OF ANTICOAGULANTS Long-term (current) use of anticoagulants long term acute care registered nurse (current) use of aspirin - RETAIL STORE ASSISTANT (CURRENT) USE OF ASPIRIN Other fpc (current) drug therapy - OTHER GROUP HOME (CURRENT) DRUG THERAPY Allergy status to narcotic agent - ALLERGY STATUS TO NARCOTIC AGENT Allergy status to other drugs, medicaments and biological substances - ALLERGY STATUS TO OTHER DRUGS, MEDICAMENTS AND BIOLOGICAL SUBSTANCES documented in this encounter Discharge Summaries * Megan Crockett MD - 07/02/2021 10:06 AM CST Inpatient Discharge Summary BRIEF OVERVIEW Admitting Provider: Genet Escobedo MD Discharge Provider: No att. providers found Primary Care Physician at Discharge: Lazarus Albert MD [phone] Admission Date: 06/28/2021 Discharge Date: 07/02/2021 Admission Location: [facility] Problems/Diagnoses: Principal Problem: Constipation Active Problems: Abdominal pain Hypotension Anxiety state Atypical chest pain Fall Resolved Problems: No resolved hospital problems. DETAILS OF HOSPITAL STAY Presenting Problem/History of Present Illness: Pt is a 55 yo with multiple prior abdominal surgeries who comes in with abdominal pain, nausea and anorexia for the last week. Pt reports not having bowel movement in that time period. Just prior to that, she overcame 3 weeks of diarrhea which she was told was likely antibiotic induced. No stool studies were done. She was reportedly on Bactrim for mesh infection. CT A/P with contrast done in the ED showed some stool but no other abnormalities. Additionally, she slipped and had a mechanical fall in her home day prior to presentation, hurting her right hip and lower back. Xray of the hip and knee done in the ED was neg for any fractures. Pt is currently not having any chest pain but she had some yesterday for which she took 3 NTG but this did not help. She follows a outpatient dry cans back tender. She had neg troponins in the ED and EKG didnot show any acute ST/T wave abnormalities. Hospital Course: Pt drank GoLytely and this resulted in her having bowel movement. She continued to have her chronicabdominal pain. Xray of low back was also negative for fracture but suggested mild DJD. Home Health referral was made for PT and OT. Day prior to discharge, pt's systolic blood pressure was noted to be in the 60s and she was feelingdizzy. Pt was on metoprolol 25mg bid and imdur 30mg daily. Imdur was added beginning of this month.Hypotension is felt likely due to the combination of these 2 meds. January 2021 pt had echo with bravo EFand a nonischemic stress test. Will hold metoprolol for now. Pt is contact her dry cans back tender on discharge for further instructions. She was monitored overnight and her blood pressure remained stable. Blood cultures were obtained and were negative at the time of discharge. Active Issues Requiring Follow-up: Follow-up with your dry cans back tender. Test Results Pending at Discharge: Pending Labs Order Current Status Blood culture Blood In process Blood culture Blood Hand, right Preliminary result Discharge Details Physical Exam at Discharge: Discharge Condition: fair Pulse: 68 Resp: 20 BP: 118/65 Temp: 36.8 ??C Weight: 99334 g Pertinent Exam Findings at Discharge: please see last progress note Discharge Disposition: Discharge to home or self care Diet Instructions Adult Discharge Diet Diet Type: Restrict salt intake to less than 2000 mg per day Low fat intake Other Instructions Ambulatory referral to Home Health Service Line: Home Health Primary disciplines requested: Physical Therapy Secondary disciplines requested: Occupational Therapy Home Health Services: Strengthening Exercises Therapy to Eval/ Treat Strengenthing/ Balance Evaluate Physician to follow patient's care (the person listed here will be responsible for signing ongoing orders): PCP Requested Start of Care Date: Next Week I attest that I or another qualified licensed provider saw the patient 90 days prior to or 30 days post admission and this face to face encounter meets the necessary Home Health requirements. The face to face encounter occurred on (date): 07/01/2021 The encounter with the patient was in whole, or in part, for the following medical condition, whichis the primary reason for home health care. (List medical condition): fall I certify that, based on my findings, the following services are medically necessary skilled home health services: Strengthening Exercises Therapy to Eval/ Treat Strengenthing/ Balance Evaluate Clinical findings that support the need for home care: Medical condition requiring skilled assessment/education Frequent falls requiring safety eval/therapy I certify that my clinical findings support patient's homebound status. Homebound criteria met because: Poor endurance Pain with minimal activity or rest Abnormal gait/unsteady balance resulting in fall risk Special Instructions Discharge Medications: Current Medications TAKE these medications alendronate 70 mg tablet Take 70 mg by mouth every 7 days Take in the morning with a full glass of water, on an empty stomach, and do not take anything else by mouth or lie down for the next 30 min. saturday For: decreased bone mass following menopause Commonly known as: FOSAMAX aspirin 81 mg enteric coated tablet Take 81 mg by mouth every other day atorvastatin 20 mg tablet Take 20 mg by mouth nightly Commonly known as: LIPITOR calcium carbonate-vitamin D3 1500 mg (600 mg elemental) -400 units per tablet Take 1 tablet by mouth 2 (two) times a day Commonly known as: CALTRATE 600 + D clonazePAM 0.5 mg tablet Take 1 tablet (0.5 mg total) by mouth 3 (three) times a day Commonly known as: KlonoPIN clotrimazole-betamethasone cream Apply 1 application topically daily Commonly known as: LOTRISONE cyclobenzaprine 10 mg tablet Take 10 mg by mouth 2 (two) times a day For: muscle spasm Commonly known as: FLEXERIL dicyclomine 10 mg capsule Take 10 mg by mouth 3 (three) times a day For: irritable colon Commonly known as: BENTYL docusate sodium 100 mg capsule Take 100 mg by mouth daily For: constipation Commonly known as: COLACE fluticasone propionate 50 mcg/actuation nasal spray Administer 2 sprays into each nostril daily Commonly known as: FLONASE isosorbide mononitrate ER 30 mg 24 hr tablet isosorbide mononitrate ER 30 mg tablet,extended release 24 hr Commonly known as: IMDUR lidocaine 5 % Place 1 patch on the skin daily Remove & discard patch within 12 hours or as directed by MD. Commonly known as: LIDODERM nitroglycerin 0.4 mg SL tablet nitroglycerin 0.4 mg sublingual tablet Commonly known as: NITROSTAT ondansetron ODT 4 mg disintegrating tablet Take 1 tablet (4 mg total) by mouth every 6 (six) hours as needed for nausea or vomiting For: Nausea and Vomiting Commonly known as: ZOFRAN-ODT pantoprazole DR 40 mg EC tablet Take 40 mg by mouth every morning Commonly known as: PROTONIX polyethylene glycol 17 gram packet Take 17 g by mouth daily with lunch For: constipation Commonly known as: MIRALAX traZODone 150 mg tablet Take 1 tablet (150 mg total) by mouth nightly Commonly known as: DESYREL venlafaxine XR 75 mg 24 hr capsule Take 3 capsules (225 mg total) by mouth daily with breakfast Commonly known as: EFFEXOR-XR Outpatient Follow-Up: Contact Information for Follow-ups Lazarus Albert MD Specialty: Family Medicine Relationship: PCP - General [address] [place] [address] Next Steps: Follow up [facility] Home Care Services Specialty: Home Health and Hospice [address] [facility] [address] Next Steps: Follow up Questions: Service Line: Home Health Primary disciplines requested: Physical Therapy Secondary disciplines requested: Occupational Therapy Home Health Services: Strengthening Exercises Therapy to Eval/ Treat Strengenthing/ Balance Evaluate Physician to follow patient's care (the person listed here will be responsible for signing ongoing orders): PCP Requested Start of Care Date: Next Week I attest that I or another qualified licensed provider saw the patient 90 days prior to or 30 days post admission and this face to face encounter meets the necessary Home Health requirements. The face to face encounter occurred on (date): 07/01/2021 The encounter with the patient was in whole, or in part, for the following medical condition, whichis the primary reason for home health care. (List medical condition): fall I certify that, based on my findings, the following services are medically necessary skilled home health services: Strengthening Exercises Therapy to Eval/ Treat Strengenthing/ Balance Evaluate Clinical findings that support the need for home care: Medical condition requiring skilled assessment/education Frequent falls requiring safety eval/therapy I certify that my clinical findings support patient's homebound status. Homebound criteria met because: Poor endurance Pain with minimal activity or rest Abnormal gait/unsteady balance resulting in fall risk Referral Status: Pending Authorization ITY CONTROL MICROBIOLOGY SUPERVISOR documented in this encounter Discharge Instructions * Attachments The following attachments cannot be sent through Care Everywhere. * Clonazepam (By mouth) (Qatari) * Lidocaine Patch (On the skin) (Qatari) * Metoprolol (By mouth) (Qatari) * Trazodone (By mouth) (Qatari) documented in this encounter Medications at Time of Discharge alendronate (FOSAMAX) 70 mg tabletIndications:P ost-Menopausal Osteoporosis [...] mouth 2 (two) times a day 1 clonazePAM (KlonoPIN) 0.5 mg tablet Take 1 tablet (0.5 mg total) by mouth 3 (three) times a day 90 tablet 1 clotrimazole-betame thasone (LOTRISONE) cream Apply 1 [...] 30 mg tablet,extended release 24 hr 1 nitroglycerin (NITROSTAT) 0.4 mg SL tablet nitroglycerin 0.4 mg sublingual tablet 1 ondansetron ODT (ZOFRAN-ODT) 4 mg disintegrating tabletIndications:N ausea and Vomiting Take 1 tablet (4 mg total) by mouth every 6 (six) hours as needed for nausea or vomiting [address] (PROTONIX) 40 mg EC tablet Take 40 mg by mouth every morning 1 polyethylene glycol (MIRALAX) 17 gram packetIndications:c onstipation Take 17 g by mouth daily with lunch traZODone (DESYREL) 150 mg tablet Take 1 tablet (150 mg total) by mouth nightly 30 tablet 1 venlafaxine XR (EFFEXOR-XR) 75 mg 24 hr capsule Take 3 capsules (225 mg total) by mouth daily with breakfast 90 capsule 11 1 cyclobenzaprine (FLEXERIL) 10 mg tabletIndications:M uscle Spasm Take 10 mg by mouth 2 (two) times a day 03/05/20 24 lidocaine (LIDODERM) 5 % Place 1 patch on the skin daily Remove & discard patch within 12 hours or as directed by . 30 patch 1 03/05/20 24 documented as of this encounter Ordered Prescriptions Prescription Sig Dispense Quantity Refills Last Filled Start Date End Date venlafaxine XR (EFFEXOR-XR) 75 mg 24 hr capsule Take 3 capsules (225 mg total) by mouth daily with breakfast 90 capsule 07/02/2021 traZODone (DESYREL) 150 mg tablet Take 1 tablet (150 mg total) by mouth nightly 30 tablet 07/01/2021 clonazePAM (KlonoPIN) 0.5 mg tablet Take 1 tablet (0.5 mg total) by mouth 3 (three) times a day 90 tablet 07/01/2021 lidocaine (LIDODERM) 5 % Place 1 patch on the skin daily Remove & discard patch within 12 hours or as directed by MD. 30 patch 07/02/2021 4 metoprolol tartrate (LOPRESSOR) 25 mg immediate release tablet Take 1 tablet (25 mg total) by mouth 2 (two) times a day 60 tablet 07/01/2021 1 documented in this encounter Discharge Disposition Disposition Code Departure Means Destination Discharge to home or self care documented in this encounter Progress Notes * Megan Crockett MD - 07/02/2021 10:06 AM CST Daily Progress Note Division of Hospital Medicine Name: Madison Weinberg Today: July 02, 2021 : 1965 Age: 55 y.o. female Admit: 06/28/2021 Bed: [id number] Subjective Chief complaint: abdominal pain Interval History: abdominal discomfort improved. Pt had low blood pressure yesterday morning; metoprolol held. No other low pressures. Objective Medications: Scheduled: acetaminophen, 1,000 mg, oral, Q6H ELIU aspirin, 81 mg, oral, Every other day atorvastatin, 20 mg, oral, Nightly cyclobenzaprine, 10 mg, oral, BID dicyclomine, 10 mg, oral, TID docusate sodium, 100 mg, oral, Daily enoxaparin, 40 mg, subcutaneous, Daily-2100 fluticasone propionate, 2 spray, each nostril, Daily isosorbide mononitrate ER, 30 mg, oral, Daily lidocaine, 1 patch, transdermal, Daily [Held by Provider] metoprolol tartrate, 25 mg, oral, BID pantoprazole , 40 mg, oral, QAM sodium chloride 0.9%, 0.5-20 mL, intra-catheter, Q8H ELIU traZODone, 150 mg, oral, Nightly venlafaxine XR, 225 mg, oral, Daily with breakfast Infusions: PRN: clonazePAM ??? ondansetron ??? sodium chloride 0.9% Vitals: 24hr Min/Max: Temp Min: 36.3 ??C Max: 37 ??C Pulse Min: 55 Max: 68 BP Min: 60/35 Max: 118/65 Resp Min: 18 Max: 20 SpO2 Min: 96 % Max: 99 % Most Recent: Vitals: 07/02/21 0810 BP: 118/65 Pulse: 68 Resp: 20 Temp: 36.8 ??C SpO2: 96% Intake/Output Summary (Last 24 hours) at 07/02/2021 1048 Last data filed at 07/01/2021 1330 Gross per 24 hour Intake 250 ml Output -- Net 250 ml Physical Exam Gen: NAD HEENT: NCAT Heart: RRR Lungs: CTA Abd: +BS, soft Ext: moves all extremities Neuro: grossly intact Skin: warm and dry Lab/Diagnostic Review: Recent Results (from the past 24 hour(s)) Blood culture Blood Hand, right Collection Time: 07/01/21 1:32 PM Specimen: Hand, right; Blood Result Value Ref Range Report Preliminary Report: No growth to date. Comprehensive metabolic panel Collection Time: 07/02/21 9:21 AM Result Value Ref Range Sodium 141 135 - 145 mmol/L Potassium, pl 4.2 3.3 - 4.9 mmol/L Chloride 105 97 - 110 mmol/L CO2 26 22 - 32 mmol/L Anion gap 10 2 - 15 mmol/L BUN 19 8 - 25 mg/dL Creatinine 1.11 (H) 0.60 - 1.10 mg/dL Glucose 103 70 - 199 mg/dL Calcium 9.3 8.5 - 10.3 mg/dL Bilirubin, total 0.2 0.1 - 1.2 mg/dL Protein, pl 7.1 6.5 - 8.5 g/dL Albumin 4.1 3.5 - 5.0 g/dL Alk phos 101 40 - 130 Units/L ALT 40 7 - 45 Units/L AST 39 10 - 45 Units/L CBC with auto differential Collection Time: 07/02/21 9:21 AM Result Value Ref Range WBC 8.1 3.8 - 9.9 K/cumm Hgb 13.2 11.9 - 15.5 g/dL Hct 40.8 35.6 - 45.5 % Plt 320 150 - 400 K/cumm MPV 9.8 9.1 - 12.3 fL RBC 4.57 3.90 - 5.20 M/cumm MCV 89.3 81.3 - 96.4 fL MCH 28.9 27.1 - 33.3 pg MCHC 32.4 32.3 - 35.7 g/dL RDW CV 13.2 11.1 - 14.9 % RDW SD 43.1 35.7 - 48.1 fL NRBC abs 0.00 0.00 - 0.01 K/cumm Differential, auto Collection Time: 07/02/21 9:21 AM Result Value Ref Range Neutrophil abs 6.7 (H) 1.7 - 6.5 K/cumm Imm gran abs 0.0 0.0 - 0.1 K/cumm Lymphocyte abs 1.0 0.8 - 3.3 K/cumm Monocyte abs 0.4 0.2 - 0.8 K/cumm Eosinophil abs 0.1 0.0 - 0.5 K/cumm Basophil abs 0.0 0.0 - 0.1 K/cumm Neutrophil pct 82.5 % Imm gran pct 0.1 % Lymphocyte pct 12.1 % Monocyte pct 4.3 % Eosinophil pct 0.6 % Basophil pct 0.4 % eGFR Collection Time: 07/02/21 9:21 AM Result Value Ref Range eGFR 56 (L) 90 - 130 mL/min/1.73 m2 I have reviewed the laboratory results. Assessment/Plan Code Status: Full Code Diet: Adult Diet Regular Adult Discharge Diet Assessment/Plan Abdominal pain Assessment & Plan Please see constipation noted elsewhere. CT is otherwise unremarkable. Pt also has underlying chronic abdominal pain. Hypotension Assessment & Plan Pt's systolic blood pressure was noted to [...] metoprolol for now. Pt is contact her dry cans back tender tomorrow for further instructions. * Constipation Assessment & Plan Pt's history and CT suggests this; no suggestion of bowel obstruction on CT. Continue bowel regimenand monitor for stools. Avoid narcotics; pt reports she is not on any narcotics at home. Mag citrate was tried per pt's request but this did not result in bm. She drank @ 2L of Golytely with good results. Atypical chest pain Assessment & Plan Troponins are negative. Continue to follow with dry cans back tender as outpatient. Anxiety state Assessment & Plan Continue home meds. Fall Assessment & Plan Mechanical fall day prior to presentation with right hip pain. No prior history of hip pain. Xray of hip and knee were negative. Continue management with nonnarcotic meds. Home health referral made outpt. I have personally spent 32 minutes today including time with the patient, time reviewing data, timediscussing with other providers, and time on discharge planning and documentation. ITY CONTROL MICROBIOLOGY SUPERVISOR ITY CONTROL MICROBIOLOGY SUPERVISOR * Tessy Acosta, PT - 07/01/2021 11:13 AM CST Physical Therapy 07/01/21 1113 General PT Missed Visit Reason Other (comment) (med cancel: hypotensive (60/35). RN and MD Crockett notified.) ITY CONTROL MICROBIOLOGY SUPERVISOR * Megan Crockett MD - 07/01/2021 10:55 AM CST Daily Progress Note Division of Hospital Medicine Name: Madison Weinberg Today: July 01, 2021 : 1965 Age: 55 y.o. female Admit: 06/28/2021 Bed: [id number] Subjective Chief complaint: abdominal pain Interval History: pt was able to have bowel movement yesterday. Last night, she was able to have dinner but this morning, threw up breakfast. She does take zofran for nausea at home. Pt continues to complain of right hip pain and low back pain since the fall. Objective Medications: Scheduled: acetaminophen, 1,000 mg, oral, Q6H ELIU aspirin, 81 mg, oral, Every other day atorvastatin, 20 mg, oral, Nightly cyclobenzaprine, 10 mg, oral, BID dicyclomine, 10 mg, oral, TID docusate sodium, 100 mg, oral, Daily enoxaparin, 40 mg, subcutaneous, Daily-2100 fluticasone propionate, 2 spray, each nostril, Daily isosorbide mononitrate ER, 30 mg, oral, Daily lidocaine, 1 patch, transdermal, Daily metoprolol tartrate, 25 mg, oral, BID pantoprazole DR, 40 mg, oral, QAM sodium chloride 0.9%, 0.5-20 mL, intra-catheter, Q8H ELIU traZODone, 150 mg, oral, Nightly venlafaxine XR, 225 mg, oral, Daily with breakfast Infusions: PRN: clonazePAM ??? ondansetron ??? sodium chloride 0.9% Vitals: 24hr Min/Max: Temp Min: 36.3 ??C Max: 36.8 ??C Pulse Min: 61 Max: 71 BP Min: 91/50 Max: 124/53 Resp Min: 18 Max: 23 SpO2 Min: 91 % Max: 99 % Most Recent: Vitals: 07/01/21 0820 BP: 101/63 Pulse: 61 Resp: 18 Temp: 36.4 ??C SpO2: 98% Intake/Output Summary (Last 24 hours) at 07/01/2021 1043 Last data filed at 07/01/2021 0445 Gross per 24 hour Intake 148 ml Output -- Net 148 ml Physical Exam Gen: NAD HEENT: NCAT Heart: RRR Lungs: CTA Abd: +BS, soft, diffuse tenderness to palpation Ext: moves all extremities; TTP over right lateral hip and low back Neuro: grossly intact Skin: warm and dry; no bruise on right hip or back Lab/Diagnostic Review: Recent Results (from the past 24 hour(s)) Comprehensive metabolic panel Collection Time: 07/01/21 5:08 AM Result Value Ref Range Sodium 140 135 - 145 mmol/L Potassium, pl 3.9 3.3 - 4.9 mmol/L Chloride 104 97 - 110 mmol/L CO2 29 22 - 32 mmol/L Anion gap 7 2 - 15 mmol/L BUN 13 8 - 25 mg/dL Creatinine 1.08 0.60 - 1.10 mg/dL Glucose 102 70 - 199 mg/dL Calcium 8.6 8.5 - 10.3 mg/dL Bilirubin, total 0.2 0.1 - 1.2 mg/dL Protein, pl 5.7 (L) 6.5 - 8.5 g/dL Albumin 3.3 (L) 3.5 - 5.0 g/dL Alk phos 78 40 - 130 Units/L ALT 20 7 - 45 Units/L AST 27 10 - 45 Units/L CBC with auto differential Collection Time: 07/01/21 5:08 AM Result Value Ref Range WBC 3.8 3.8 - 9.9 K/cumm Hgb 9.9 (L) 11.9 - 15.5 g/dL Hct 30.5 (L) 35.6 - 45.5 % Plt 256 150 - 400 K/cumm MPV 10.0 9.1 - 12.3 fL RBC 3.40 (L) 3.90 - 5.20 M/cumm MCV 89.7 81.3 - 96.4 fL MCH 29.1 27.1 - 33.3 pg MCHC 32.5 32.3 - 35.7 g/dL RDW CV 13.2 11.1 - 14.9 % RDW SD 43.4 35.7 - 48.1 fL NRBC abs 0.00 0.00 - 0.01 K/cumm Differential, auto Collection Time: 07/01/21 5:08 AM Result Value Ref Range Neutrophil abs 2.5 1.7 - 6.5 K/cumm Imm gran abs 0.0 0.0 - 0.1 K/cumm Lymphocyte abs 0.9 0.8 - 3.3 K/cumm Monocyte abs 0.3 0.2 - 0.8 K/cumm Eosinophil abs 0.1 0.0 - 0.5 K/cumm Basophil abs 0.0 0.0 - 0.1 K/cumm Neutrophil pct 65.3 % Imm gran pct 0.3 % Lymphocyte pct 24.7 % Monocyte pct 7.9 % Eosinophil pct 1.3 % Basophil pct 0.5 % eGFR Collection Time: 07/01/21 5:08 AM Result Value Ref Range eGFR 58 (L) 90 - 130 mL/min/1.73 m2 I have reviewed the laboratory results. Assessment/Plan Code Status: Full Code Diet: Adult Diet Regular Assessment/Plan Abdominal pain Assessment & Plan Please see constipation noted elsewhere. CT is otherwise unremarkable. Pt also has underlying chronic abdominal pain. * Constipation Assessment & Plan Pt's history and CT suggests this; no suggestion of bowel obstruction on CT. Continue bowel regimenand monitor for stools. Avoid narcotics; pt reports she is not on any narcotics at home. Mag citrate was tried yesterday per pt's request but this did not result in bm. She drank @ 2L of Golytely with good results. Atypical chest pain Assessment & Plan Troponins are negative. Continue to follow with dry cans back tender as outpatient. Anxiety state Assessment & Plan Continue home meds. Fall Assessment & Plan Mechanical fall day prior to presentation with right hip pain. No prior history of hip pain. Xray of hip and knee were negative. Continue management with nonnarcotic meds. PT consulted. 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 female Admit: 06/28/2021 Bed: [id number] Subjective Chief complaint: abdominal pain Interval History: Pt has not had bm. Continues to note abdominal pain. She has refused to work withtherapy. Objective Medications: Scheduled: acetaminophen, 1,000 mg, oral, Q6H ELIU aspirin, 81 mg, oral, Every other day atorvastatin, 20 mg, oral, Nightly cyclobenzaprine, 10 mg, oral, BID dicyclomine, 10 mg, oral, TID docusate sodium, 100 mg, oral, Daily enoxaparin, 40 mg, subcutaneous, Daily-2100 fluticasone propionate, 2 spray, each nostril, Daily isosorbide mononitrate ER, 30 mg, oral, Daily lidocaine, 1 patch, transdermal, Daily metoprolol tartrate, 25 mg, oral, BID pantoprazole DR, 40 mg, oral, QAM phenoL, 2 spray, mouth/throat, Once polyethylene glycol, 4,000 mL, oral, Once sodium chloride 0.9%, 0.5-20 mL, intra-catheter, Q8H ELIU traZODone, 150 mg, oral, Nightly venlafaxine XR, 225 mg, oral, Daily with breakfast Infusions: PRN: clonazePAM ??? ondansetron ??? sodium chloride 0.9% Vitals: 24hr Min/Max: Temp Min: 36.2 ??C Max: 36.6 ??C Pulse Min: 58 Max: 89 BP Min: 90/46 Max: 154/75 Resp Min: 16 Max: 24 SpO2 Min: 92 % Max: 100 % Most Recent: Vitals: 06/30/21 0735 BP: 90/46 Pulse: 62 Resp: 20 Temp: 36.6 ??C SpO2: 94% Intake/Output Summary (Last 24 hours) at 06/30/2021 1128 Last data filed at 06/30/2021 0401 Gross per 24 hour Intake 40 ml Output -- Net 40 ml Physical Exam Gen: NAD HEENT: NCAT Heart: RRR Lungs: CTA Abd: +BS, soft Ext: moves all extremities Neuro: grossly intact Skin: warm and dry Lab/Diagnostic Review: No results found for this or any previous visit (from the past 24 hour(s)). I have reviewed the laboratory results. Imaging Results: XR Knee Right 1 or 2 Views Narrative: EXAMINATION: XR FEMUR RIGHT 2 OR MORE VIEWS, XR KNEE RIGHT 1 OR 2 VIEWS HISTORY: Fall with thigh and knee pain. COMPARISON: Concurrent CT. 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 No acute fracture. Normal alignment. Mild right hip osteoarthritis. Right knee: No acute fracture. Normal alignment. Normal joint spaces. Impression: No acute osseous abnormality involving the right femur or right knee. Dictated by: Bon Burgos M.D. The radiology attending physician has personally reviewed this study, and had reviewed and/or edited this written report and agrees with it. Electronically signed by: Omar Kim M.D. XR Femur Right 2 or More Views Narrative: EXAMINATION: XR FEMUR RIGHT 2 OR MORE VIEWS, XR KNEE RIGHT 1 OR 2 VIEWS HISTORY: Fall with thigh and knee pain. COMPARISON: Concurrent CT. 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 No acute fracture. Normal alignment. Mild right hip osteoarthritis. Right knee: No acute fracture. Normal alignment. Normal joint spaces. Impression: No acute osseous abnormality involving the right femur or right knee. Dictated by: Bon Burgos M.D. The radiology attending physician has personally reviewed this study, and had reviewed and/or edited this written report and agrees with it. Electronically signed by: Omar Kim M.D. CT Abdomen Pelvis W Contrast Narrative: EXAMINATION: Computed tomography of the abdomen and pelvis with intravenous contrast HISTORY: Abdominal pain. No bowel movement for the past 5 days. TECHNIQUE: Transaxial computed tomographic images of the abdomen and pelvis were obtained with intravenous contrast according to the standard protocol after the uneventful administration of 95 mL Opti-Ray 350 intravenous contrast. COMPARISON: 02/12/2021. FINDINGS: Images of the lower chest show the heart to be normal in size without pericardial effusion. Mild peripheral reticulation is seen at the lung bases, which are otherwise clear. The liver and gallbladder are normal. Spleen is normal. Pancreas is normal. Adrenal glands normal. Kidneys normal. There are some nonobstructing stone seen in the left kidney. There is some stool seen in the colon. There is no evidence though of bowel obstruction. There are postsurgical changes of left hemicolectomy. There is no suspicious lymphadenopathy in the abdomen or pelvis. Urinary bladder is normal. Uterus is surgically absent. There is pelvic floor relaxation. There is at least moderate atherosclerosis of the abdominal aorta. No aggressive osseous lesion or acute fracture. Fat necrosis in the posterior soft tissues. Impression: Moderate stool burden seen in the colon without otherwise acute abnormality in the abdomen or pelvis. Dictated by: Bon Burgos M.D. The radiology attending physician has personally reviewed this study, and had reviewed and/or edited this written report and agrees with it. Electronically signed by: Omar Kim M.D. ECG 12 lead Luis Felipe Kelsey MD 06/29/2021 2:49 AM ECG 12 lead Date/Time: 06/29/2021 2:48 AM Performed by: Luis Felipe Kelsey MD Authorized by: Dulce Young MD Rate: ECG rate: 71 ECG rate assessment: normal Rhythm: Rhythm: sinus rhythm Ectopy: Ectopy: PAC QRS: QRS axis: Normal QRS intervals: Normal Conduction: Conduction: normal ST segments: ST segments: Normal T waves: T waves: non-specific Q waves: Q wave noted on lead: insig q. Other findings: Other findings: prolonged qTc interval Previous ECG: Previous ECG: Compared to current Date of previous ECG: tonight. Interpretation: Interpretation: No acute injury pattern Recommended Follow-up: Recommended follow up: further workup in the ED Assessment/Plan Code Status: Full Code Diet: NPO Diet Ice chips, Sips with meds Assessment/Plan Abdominal pain Assessment & Plan Please see constipation noted elsewhere. CT is otherwise unremarkable. Pt also has underlying chronic abdominal pain. * Constipation Assessment & Plan Pt's history and CT suggests this; no suggestion of bowel obstruction. Continue bowel regimen and monitor for stools. Avoid narcotics; pt reports she is not on any narcotics at home. Mag citrate was tried yesterday per pt's request but this did not result in bm. Plan is to place NGand give Golytely through this today. Atypical chest pain Assessment & Plan Troponins are negative. Continue to follow with dry cans back tender as outpatient. Anxiety state Assessment & Plan Continue home meds. Fall Assessment & Plan Mechanical fall yesterday with right hip pain. No prior history of hip pain. Xray of hip and knee were negative. Continue management with nonnarcotic meds. PT consulted but pt refused to work with PT this morning. 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 is a 55 year old female admitted for evaluation of abdominal pain. Plan Includes: Plan to discharge home when medically stable. Primary Source of Transportation: Does the patient need discharge transport arranged?: No (Patient drove self to hospital.) (06/30/21907) Health Insurance Coverage: BCBS Prescription Coverage: Yes Pharmacy: [facility] in [place], [place] Primary Care Provider: Lazarus Albert MD Prior to Admission: Primary Caregiver: Self Support System: Parent Support system contact info (name, phone, availablity): Patient declined to provide contact information for family/friends. Home Care Services: No Durable Medical Equipment: None Living Arrangements: Alone Type of Residence: Private residence Medication management: (Pt. independent with medications prior to admission.) (06/30/21905) Potential discharge needs include: None anticipated at this time. Dialysis: N/A Behavioral Health Services: Behavioral Health Services: No (06/30/21905) Patient expects to be Discharged to: Private residence, (06/30/21907) Additional Information: Pt. information verified with pt. via bedside interview. Pt. declines current HHC/DME needs. She reports that she lives alone, her mother calls to check on her. Patient is disabled. Patient's Identified Problem/Goal Problem: Ensure acute medical needs are met and that patient has a safe discharge plan. Goal: Secure a discharge plan that patient/family are agreeable with and ensure patient has continuum of care. Case management will follow for discharge planning and send referrals as needed. Goals include: To assure continuity of care, To maximize coping skills, To assure patient is in a safe environment and To assure access to community resources. Plan includes: 1. Collaboration with patient, MD, direct care nurse, Vender, Nurse Coordinator and other members of the health care team to assure needed interventions completed. 2. Return patient to optimal level of self-care post discharge. 3. Automotive Worker will follow for Discharge Planning - interventions as needed 4. Anticipated level of care at discharge 5. Planned Discharge Disposition Based on a comprehensive family assessment, assistance with instrumental activities of daily livingafter discharge will be provided by the patient. Through the course of our work I determined that the patient possesses the skill and ability to provide and monitor the care of the patient when he or she returns home. The patient has the capacity to provide/monitor/arrange for the care of the patient. Finally, we determined that the patient has the knowledge of available resources and that combining them with their existing resources will suffice to sustain and care for the patient when he or she returns home. The treatment team is aware of this information. All are in agreement with the aftercare plan. Radha DALEY, religious education teacher For emergency needs after 4:30 pm, please call the psychiatric nursing assistant [phone]. For weekend/holiday needs from 8:00a.m. - 4:30p.m., please call the Weekend Automotive Worker . ITY CONTROL MICROBIOLOGY SUPERVISOR documented in this encounter H&P Notes * Megan Crockett MD - 06/29/2021 1:48 PM CST History and Physical Division of [facility] Medicine Name: Madison Weinberg Today: June 29, 2021 : 1965 Age: 55 y.o. female Subjective Ms. Weinberg is a 55 y.o. female with chief complaint of abdominal pain. HPI: Pt is a 55 yo with multiple prior abdominal surgeries who comes in with abdominal pain, nausea and anorexia for the last week. Pt reports not having bowel movement in that time period. Just prior to that, she overcame 3 weeks of diarrhea which she was told was likely antibiotic induced. No stool studies were done. She was reportedly on Bactrim for mesh infection. CT A/P with contrast shows some stool but no other abnormalities. Additionally, she slipped and had a mechanical fall in her home yesterday, hurting her right hip. She notes severe pain there. Xray of the hip and knee done in the ED was neg for any fractures. Pt is currently not having any chest pain but she had some yesterday for which she took 3 NTG but this did not help. She follows a outpatient dry cans back tender. Pt reports having a stress test last year but she does not know the result of this. She had neg troponins in the ED and EKG did not show any acute ST/T wave abnormalities. Pt reports adhering to her outpatient bowel regimen. On ROS, she reported intermittent fever up to 101 and nasal congestion which she attributes to allergies. Past Medical History: Diagnosis Date ??? Anemia ??? Anxiety disorder ??? Colon obstruction (CMS/HCC) (HCC) ??? DVT (deep venous thrombosis) (CMS/HCC) (HCC) 11/2018 ??? Endometriosis Endometriosis-21 times ??? Hyperlipidemia ??? PONV (postoperative nausea and vomiting) IV medications help ??? Trigeminal neuralgia Past Surgical History: Procedure Laterality Date ??? ABDOMINAL SURGERY surgery x 5 for bowel obstruction and subsequent infection ??? APPENDECTOMY 2005 Appendectomy ??? BOWEL RESECTION colon blockage: partial bowel resection ??? BREAST BIOPSY 2000 Breast biopsy ??? HYSTERECTOMY 1994 Hysterectomy ??? LAPAROSCOPIC ENDOMETRIOSIS FULGURATION Endometriosis-21 times: lap/laser ??? US GUIDED THORACENTESIS N/A 02/14/2021 No current facility-administered medications on file prior to encounter. Current Outpatient Medications on File Prior to Encounter Medication Sig ??? isosorbide mononitrate ER (IMDUR) 30 mg 24 hr tablet isosorbide mononitrate ER 30 mg tablet,extended release 24 hr ??? nitroglycerin (NITROSTAT) 0.4 mg SL tablet nitroglycerin 0.4 mg sublingual tablet ??? alendronate (FOSAMAX) 70 mg tablet Take 70 mg by mouth every 7 days Take in the morning with a full glass of water, on an empty stomach, and do not take anything else by mouth or lie down for thenext 30 min. saturday ??? aspirin 81 mg enteric coated tablet Take 81 mg by mouth every other day ??? atorvastatin (LIPITOR) 20 mg tablet Take 20 mg by mouth nightly ??? calcium carbonate-vitamin D3 (CALTRATE 600 + D) 1500 mg (600 mg elemental) - 400 units per tablet Take 1 tablet by mouth 2 (two) times a day ??? clotrimazole-betamethasone (LOTRISONE) cream Apply 1 application topically daily ??? cyanocobalamin (Vitamin B-12) 1,000 mcg tablet Take 1,000 mcg by mouth daily ??? cyclobenzaprine (FLEXERIL) 10 mg tablet Take 10 mg by mouth 2 (two) times a day ??? dicyclomine (BENTYL) 10 mg capsule Take 10 mg by mouth 3 (three) times a day ??? docusate sodium (COLACE) 100 mg capsule Take 100 mg by mouth daily ??? ergocalciferol (VITAMIN D) 50,000 unit capsule Take 50,000 Units by mouth once a week SATURDAY ??? fluticasone propionate (FLONASE) 50 mcg/actuation nasal spray Administer 2 sprays into each nostril daily ??? folic acid (FOLVITE) 1 mg tablet Take 1 mg by mouth daily with dinner ??? levETIRAcetam (KEPPRA) 250 mg tablet Take 250 mg by mouth 2 (two) times a day ??? loratadine 10 mg capsule Take 10 mg by mouth daily ??? OLANZapine (ZyPREXA ZYDIS) 10 mg disintegrating tablet Take 1 tablet (10 mg total) by mouth nightly ??? OLANZapine (ZyPREXA ZYDIS) 5 mg disintegrating tablet Take 1 tablet (5 mg total) by mouth daily ??? ondansetron ODT (ZOFRAN-ODT) 4 mg disintegrating tablet Take 1 tablet (4 mg total) by mouth every 6 (six) hours as needed for nausea or vomiting ??? pantoprazole DR (PROTONIX) 40 mg EC tablet Take 40 mg by mouth every morning ??? polyethylene glycol (MIRALAX) 17 gram packet Take 17 g by mouth daily with lunch ??? prazosin (MINIPRESS) 1 mg capsule Take 1 mg by mouth nightly Allergies Allergen Reactions ??? Codeine Hives ??? Duloxetine Mental status changes Reaction: CONFUSION, ??? Gabapentin Mental status changes ??? Paxil [Paroxetine] Mental status changes ??? Wellbutrin [Bupropion] Mental status changes ??? Zoloft [Sertraline] Mental status changes Social History Tobacco Use ??? Smoking status: Former Smoker Packs/day: 2.00 Years: 12.00 Pack years: 24.00 Types: E-cigarettes, Cigarettes Start date: 1981 Quit date: 03/19/2008 Years since quittin.2 ??? Smokeless tobacco: Never Used Substance Use Topics ??? Alcohol use: Yes Comment: rarely Family History Problem Relation Age of Onset ??? Diabetes Mother Diabetes mellitus; ??? Heart disease Mother 71 Heart disease; ??? Hypertension Mother Hypertension; ??? Diabetes Father Diabetes mellitus; ??? Heart disease Father 76 Heart disease; ??? Hypertension Father Hypertension; ??? Stroke Father Stroke; ??? Breast cancer Sister Cancer -breast; ??? Prostate cancer Brother Cancer -prostate; ??? Diabetes Brother Diabetes mellitus; ??? Breast cancer Maternal Grandmother Cancer -breast; ??? Diabetes Maternal Grandmother Diabetes mellitus; ??? Hypertension Maternal Grandmother Hypertension; ??? Heart disease Maternal Grandmother Heart disease; ??? Anesthesia problems Neg Hx Family History reviewed and non-contributory. Review of Systems All other systems were reviewed and are negative except for that which is listed in the History of Present Illness. Objective Vitals: 24hr Min/Max: Temp Min: 36.6 ??C Max: 36.6 ??C Pulse Min: 61 Max: 117 BP Min: 81/63 Max: 146/92 Resp Min: 11 Max: 32 SpO2 Min: 90 % Max: 100 % Most Recent Vitals: Vitals: 06/29/21 1230 BP: 146/92 Pulse: 80 Resp: 24 Temp: SpO2: 99% Intake/Output Summary (Last 24 hours) at 06/29/2021 1313 Last data filed at 06/29/2021 0011 Gross per 24 hour Intake 500 ml Output -- Net 500 ml Physical Exam Vitals reviewed. HENT: Head: Normocephalic and atraumatic. Mouth/Throat: Mouth: Mucous membranes are moist. Pharynx: Oropharynx is clear. Eyes: Conjunctiva/sclera: Conjunctivae normal. Cardiovascular: Rate and Rhythm: Normal rate and regular rhythm. Heart sounds: Normal heart sounds. Pulmonary: Effort: Pulmonary effort is normal. Breath sounds: Normal breath sounds. Abdominal: General: Bowel sounds are normal. Palpations: Abdomen is soft. Comments: Tender to palpation diffusely except for the LLQ. Musculoskeletal: Cervical back: Normal range of motion and neck supple. Comments: Pain with compression over the hip joint and complains of pain with internal or external rotation Lymphadenopathy: Cervical: No cervical adenopathy. Skin: General: Skin is warm and dry. Comments: No bruising over the right hip Neurological: General: No focal deficit present. Mental Status: She is alert. Psychiatric: Mood and Affect: Mood is anxious. Lab/Diagnostic Review: Recent Results (from the past 36 hour(s)) CBC with auto differential Collection Time: 06/28/21 11:02 PM Result Value Ref Range WBC 7.8 3.8 - 9.9 K/cumm Hgb 13.2 11.9 - 15.5 g/dL Hct 40.0 35.6 - 45.5 % Plt 372 150 - 400 K/cumm MPV 9.6 9.1 - 12.3 fL RBC 4.52 3.90 - 5.20 M/cumm MCV 88.5 81.3 - 96.4 fL MCH 29.2 27.1 - 33.3 pg MCHC 33.0 32.3 - 35.7 g/dL RDW CV 13.3 11.1 - 14.9 % RDW SD 43.4 35.7 - 48.1 fL NRBC abs 0.00 0.00 - 0.01 K/cumm Lipase Collection Time: 06/28/21 11:02 PM Result Value Ref Range Lipase 23 10 - 99 Units/L Comprehensive metabolic panel Collection Time: 06/28/21 11:02 PM Result Value Ref Range Sodium 139 135 - 145 mmol/L Potassium, pl 3.4 3.3 - 4.9 mmol/L Chloride 100 97 - 110 mmol/L CO2 27 22 - 32 mmol/L Anion gap 12 2 - 15 mmol/L BUN 10 8 - 25 mg/dL Creatinine 1.09 0.60 - 1.10 mg/dL Glucose 69 (L) 70 - 199 mg/dL Calcium 9.5 8.5 - 10.3 mg/dL Bilirubin, total 0.2 0.1 - 1.2 mg/dL Protein, pl 7.7 6.5 - 8.5 g/dL Albumin 4.4 3.5 - 5.0 g/dL Alk phos 103 40 - 130 Units/L ALT 18 7 - 45 Units/L AST 25 10 - 45 Units/L Type and screen Collection Time: 06/28/21 11:02 PM Result Value Ref Range ABO Rh A Negative Andreina, indirect Negative Urinalysis reflex to microscopic and culture Urine Collection Time: 06/28/21 11:02 PM Specimen: Urine Result Value Ref Range Color, ur Yellow Yellow Clarity, ur Cloudy (A) Clear Specific gravity, ur 1.027 1.003 - 1.030 pH, urine 6 Protein, ur ql 1+ (A) Negative Glucose, ur ql Negative Negative Ketones, ur Negative Negative Bilirubin, ur Negative Negative Blood, ur Negative Negative Urobilinogen, ur <2.0 <2.0 mg/dL Nitrite, ur Negative Negative Leukocyte esterase, ur 3+ (A) Negative UA reflex comment Reflex to microscopic UA will be performed. Troponin I high-sensitivity series (baseline, 2hr, 4hr, 6hr) Collection Time: 06/28/21 11:02 PM Result Value Ref Range Trop I hs <4 <=17 ng/L Differential, auto Collection Time: 06/28/21 11:02 PM Result Value Ref Range Neutrophil abs 5.0 1.7 - 6.5 K/cumm Imm gran abs 0.0 0.0 - 0.1 K/cumm Lymphocyte abs 2.1 0.8 - 3.3 K/cumm Monocyte abs 0.6 0.2 - 0.8 K/cumm Eosinophil abs 0.1 0.0 - 0.5 K/cumm Basophil abs 0.1 0.0 - 0.1 K/cumm Neutrophil pct 63.8 % Imm gran pct 0.4 % Lymphocyte pct 26.3 % Monocyte pct 7.8 % Eosinophil pct 1.1 % Basophil pct 0.6 % Urinalysis, microscopic only Collection Time: 06/28/21 11:02 PM Result Value Ref Range WBC, ur 11-20 (A) 0 - 5 /HPF RBC, ur 0-2 0 - 2 /HPF Epithelial cells, squamous, ur 1-5 0 - 5 /HPF Bacteria, ur 2+ (A) Mucous, ur Present (A) Amorphous crystals, ur Trace (A) Hyaline casts, ur 21-50 (A) 0 - 10 /LPF Culture Reflex Comment Reflex to urine culture will be performed. eGFR Collection Time: 06/28/21 11:02 PM Result Value Ref Range eGFR 57 (L) 90 - 130 mL/min/1.73 m2 POC Blood Gas and Chemistries, Arterial - Collection Time: 06/28/21 11:08 PM Result Value Ref Range Lactate, POC 1.9 0.7 - 2.2 mmol/L POCT creatinine Collection Time: 06/28/21 11:15 PM Result Value Ref Range Creatinine POC 1.1 0.6 - 1.1 mg/dL Troponin I high-sensitivity 2-hour Collection Time: 06/29/21 1:36 AM Result Value Ref Range Trop I hs <4 <=17 ng/L Trop I hs delta 0 ng/L Trop I hs interp Insignificant POCT glucose Collection Time: 06/29/21 1:59 AM Result Value Ref Range Glucose, POC 107 70 - 199 mg/dL COVID-19 Coronavirus RNA Nasopharyngeal Collection Time: 06/29/21 5:57 AM Specimen: Nasopharyngeal Result Value Ref Range COVID-19 RNA Negative Negative First COVID-19 test? No Employeed in healthcare? No status? No Group care resident? No Hospitalized? Yes Is patient in ICU? No Symptomatic as defined by CDC? No POCT glucose Collection Time: 06/29/21 6:28 AM Result Value Ref Range Glucose, POC 79 70 - 199 mg/dL I have reviewed the laboratory results. Imaging Results: XR Knee Right 1 or 2 Views Narrative: EXAMINATION: XR FEMUR RIGHT 2 OR MORE VIEWS, XR KNEE RIGHT 1 OR 2 VIEWS HISTORY: Fall with thigh and knee pain. COMPARISON: Concurrent CT. 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 No acute fracture. Normal alignment. Mild right hip osteoarthritis. Right knee: No acute fracture. Normal alignment. Normal joint spaces. Impression: No acute osseous abnormality involving the right femur or right knee. Dictated by: Bon Burgos M.D. The radiology attending physician has personally reviewed this study, and had reviewed and/or edited this written report and agrees with it. Electronically signed by: Omar Kim M.D. XR Femur Right 2 or More Views Narrative: EXAMINATION: XR FEMUR RIGHT 2 OR MORE VIEWS, XR KNEE RIGHT 1 OR 2 VIEWS HISTORY: Fall with thigh and knee pain. COMPARISON: Concurrent CT. 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 No acute fracture. Normal alignment. Mild right hip osteoarthritis. Right knee: No acute fracture. Normal alignment. Normal joint spaces. Impression: No acute osseous abnormality involving the right femur or right knee. Dictated by: Bon Burgos M.D. The radiology attending physician has personally reviewed this study, and had reviewed and/or edited this written report and agrees with it. Electronically signed by: Omar Kim M.D. CT Abdomen Pelvis W Contrast Narrative: EXAMINATION: Computed tomography of the abdomen and pelvis with intravenous contrast HISTORY: Abdominal pain. No bowel movement for the past 5 days. TECHNIQUE: Transaxial computed tomographic images of the abdomen and pelvis were obtained with intravenous contrast according to the standard protocol after the uneventful administration of 95 mL Opti-Ray 350 intravenous contrast. COMPARISON: 02/12/2021. FINDINGS: Images of the lower chest show the heart to be normal in size without pericardial effusion. Mild peripheral reticulation is seen at the lung bases, which are otherwise clear. The liver and gallbladder are normal. Spleen is normal. Pancreas is normal. Adrenal glands normal. Kidneys normal. There are some nonobstructing stone seen in the left kidney. There is some stool seen in the colon. There is no evidence though of bowel obstruction. There are postsurgical changes of left hemicolectomy. There is no suspicious lymphadenopathy in the abdomen or pelvis. Urinary bladder is normal. Uterus is surgically absent. There is pelvic floor relaxation. There is at least moderate atherosclerosis of the abdominal aorta. No aggressive osseous lesion or acute fracture. Fat necrosis in the posterior soft tissues. Impression: Moderate stool burden seen in the colon without otherwise acute abnormality in the abdomen or pelvis. Dictated by: Bon Burgos M.D. The radiology attending physician has personally reviewed this study, and had reviewed and/or edited this written report and agrees with it. Electronically signed by: Omar Kim M.D. ECG 12 lead Luis Felipe Kelsey MD 06/29/2021 2:49 AM ECG 12 lead Date/Time: 06/29/2021 2:48 AM Performed by: Luis Felipe Kelsey MD Authorized by: Dulce Young MD Rate: ECG rate: 71 ECG rate assessment: normal Rhythm: Rhythm: sinus rhythm Ectopy: Ectopy: PAC QRS: QRS axis: Normal QRS intervals: Normal Conduction: Conduction: normal ST segments: ST segments: Normal T waves: T waves: non-specific Q waves: Q wave noted on lead: insig q. Other findings: Other findings: prolonged qTc interval Previous ECG: Previous ECG: Compared to current Date of previous ECG: tonight. Interpretation: Interpretation: No acute injury pattern Recommended Follow-up: Recommended follow up: further workup in the ED I have independently reviewed and interpreted labs and EKG. Assessment/Plan Abdominal pain Assessment & Plan Please see constipation noted elsewhere. CT is otherwise unremarkable. Pt also has underlying chronic abdominal pain. * Constipation Assessment & Plan Pt's history and CT suggests this; no suggestion of bowel obstruction. Continue bowel regimen and monitor for stools. Avoid narcotics; pt reports she is not on any narcotics at home. Atypical chest pain Assessment & Plan Troponins are negative. Continue to follow with dry cans back tender as outpatient. Anxiety state Assessment & Plan Continue home meds. Fall Assessment & Plan Mechanical fall yesterday with right hip pain. No prior history of hip pain. Xray of hip and knee were negative. Continue management with nonnarcotic meds. ITY CONTROL MICROBIOLOGY SUPERVISOR documented in this encounter Nursing Notes * Curtis Cosme RN - 07/02/2021 9:52 AM CST Patient discharged home to self care with all her belonging. Discharge instructions discussed with the patient and she verbalized understanding. A bottle of nitroglycerine pills found in the cabinet after the patient left, a call made to her and she said she will pass by in one or two days to pick them up. They are at the nurses' station drawer. ITY CONTROL MICROBIOLOGY SUPERVISOR ITY CONTROL MICROBIOLOGY SUPERVISOR documented in this encounter ED Notes * Luis Felipe Kelsey MD - 06/28/2021 10:43 PM CST HPI Chief Complaint Patient presents with ??? Chest Pain ??? 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 Recently established with Cardiology in [facility] chest pain and was prescribed Imdur and nitroglycerin, no prior caths noted She presents for episode of chest pain that occurred earlier today. Chest pain was central, pressure-like, radiating to right shoulder, took 3 nitros with improvement in pain. Chest pain occurred approximately 15 30. She was sitting when this pain occurred, was nonexertional. She reports intermittent episodes of chest pain since being in the waiting room, no chest pain currently. She also reports worsening abdominal pain, bloating, constipation. Reports baseline abdominal pain,this pain is worse, constant, no alleviating, no exacerbating features. Reports has not had any bowel movement in 5 days with no flatulence reported. She is taking her usual bowel regimen of MiraLax,senna, milk of magnesia with no improvement. She reports she has had 31 abdominal operations, feelslike she is having a another bowel obstruction at this time. She does report episode of vomiting at4:30 p.m., nonbloody nonbilious. Thirdly she reports a fall that occurred yesterday on her kitchen. She reports she slipped on some clothes, fell on her right hip, has been having right hip pain since. Has been ambulatory. Patient History: Patient Active Problem List Diagnosis Date Noted ??? Fall 06/29/2021 ??? Acute hypoxemic respiratory failure (CMS/HCC) ([facility]) 02/08/2021 ??? Constipation ??? Elevated troponin 01/14/2021 ??? Atypical chest pain 01/14/2021 ??? Hepatitis 01/14/2021 ??? Tylenol overdose 01/14/2021 ??? JHOANA (acute kidney injury) (CMS/HCC) ([facility]) 01/14/2021 ??? NSAID overdose 01/14/2021 ??? Bandemia 01/14/2021 ??? High anion gap metabolic acidosis 01/14/2021 ??? Hypokalemia 01/14/2021 ??? Right lower quadrant abdominal pain 01/14/2021 ??? Suicidal ideation 01/14/2021 ??? Frailty 01/14/2021 ??? Severe protein-calorie malnutrition (CMS/HCC) ([facility]) 01/14/2021 ??? Infected prosthetic mesh of abdominal wall (CMS/HCC) ([facility]) 04/23/2020 ??? History of DVT (deep vein thrombosis) 04/23/2020 ??? Abdominal pain 04/11/2020 ??? Endometriosis 12/26/2013 ??? Multiple-type hyperlipidemia 12/26/2013 ??? Anxiety state 12/26/2013 ??? Acute cerebrovascular insufficiency 12/26/2013 Past Medical History: Diagnosis Date ??? Anemia ??? Anxiety disorder ??? Colon obstruction (CMS/HCC) (HCC) ??? DVT (deep venous thrombosis) (CMS/HCC) (HCC) 11/2018 ??? Endometriosis Endometriosis-21 times ??? Hyperlipidemia ??? PONV (postoperative nausea and vomiting) IV medications help ??? Trigeminal neuralgia Past Surgical History: Procedure Laterality Date ??? ABDOMINAL SURGERY surgery x 5 for bowel obstruction and subsequent infection ??? APPENDECTOMY 2006 Appendectomy ??? BOWEL RESECTION colon blockage: partial bowel resection ??? BREAST BIOPSY 2001 Breast biopsy ??? HYSTERECTOMY 1995 Hysterectomy ??? LAPAROSCOPIC ENDOMETRIOSIS FULGURATION Endometriosis-21 times: lap/laser ??? US GUIDED THORACENTESIS N/A 02/14/2021 Family History Problem Relation Age of Onset ??? Diabetes Mother Diabetes mellitus; ??? Heart disease Mother 71 Heart disease; ??? Hypertension Mother Hypertension; ??? Diabetes Father Diabetes mellitus; ??? Heart disease Father 76 Heart disease; ??? Hypertension Father Hypertension; ??? Stroke Father Stroke; ??? Breast cancer Sister Cancer -breast; ??? Prostate cancer Brother Cancer -prostate; ??? Diabetes Brother Diabetes mellitus; ??? Breast cancer Maternal Grandmother Cancer -breast; ??? Diabetes Maternal Grandmother Diabetes mellitus; ??? Hypertension Maternal Grandmother Hypertension; ??? Heart disease Maternal Grandmother Heart disease; ??? Anesthesia problems Neg Hx Social History Tobacco Use ??? Smoking status: Former Smoker Packs/day: 2.00 Years: 12.00 Pack years: 24.00 Types: E-cigarettes, Cigarettes Start date: 1981 Quit date: 03/19/2008 Years since quittin.2 ??? Smokeless tobacco: Never Used Vaping Use ??? Vaping Use: Former ??? Quit date: 12/11/2019 ??? Substances: Nicotine ??? Devices: Refillable tank Substance Use Topics ??? Alcohol use: Yes Comment: rarely ??? Drug use: Yes Frequency: 7.0 times per week Types: Marijuana Comment: medical for pain and anxiety Social History Social History Narrative ??? Not on file Review of Systems Review of Systems Constitutional: Negative for chills and fever. HENT: Negative for ear pain and sore throat. Eyes: Negative for pain and visual disturbance. Respiratory: Negative for cough and shortness of breath. Cardiovascular: Negative for chest pain and palpitations. Gastrointestinal: Positive for abdominal pain, constipation and vomiting. Genitourinary: Negative for dysuria and hematuria. Musculoskeletal: Negative for arthralgias and back pain. Skin: Negative for color change and rash. Neurological: Negative for seizures and syncope. All other systems reviewed and are negative. Physical Exam ED Triage Vitals Temp Pulse Resp BP SpO2 06/28/21 1843 06/28/21 1843 06/28/21 1843 06/28/21 1843 06/28/21 1843 36.6 ??C (97.9 ??F) 117 18 116/75 100 % Temp src Heart Rate Source Patient Position BP Location FiO2 (%) 06/29/21 1425 06/29/21 1425 06/29/21 1425 06/29/21 1425 -- Oral Monitor HOB 30 degrees Right arm Physical Exam Vitals reviewed. Constitutional: General: She is not in acute distress. HENT: Head: Normocephalic and atraumatic. Right Ear: External ear normal. Left Ear: External ear normal. Nose: Nose normal. Mouth/Throat: Mouth: Mucous membranes are moist. Eyes: Extraocular Movements: Extraocular movements intact. Pupils: Pupils are equal, round, and reactive to light. Cardiovascular: Rate and Rhythm: Normal rate and regular rhythm. Comments: No chest wall tenderness Pulmonary: Effort: Pulmonary effort is normal. No respiratory distress. Abdominal: Palpations: Abdomen is soft. Tenderness: There is no right CVA tenderness or left CVA tenderness. Comments: SSI noted, well healing. Ab soft, non distended, ttp diffusely. Musculoskeletal: General: No swelling or deformity. Cervical back: Neck supple. Comments: TTP right anterior hip, right thigh, right knee without deformity, swelling. Skin: General: Skin is warm. Capillary Refill: Capillary refill takes less than 2 seconds. Neurological: Mental Status: She is alert and oriented to person, place, and time. MDM Medical Decision Making Differential Diagnosis or Management Options: 55yoF with hx abdominal surgeries, chronic pain, chronic constipation, here with episode chest pain, ongoing ab pain with obstipation, and fall with right hip pain. Possible recurrent bowel obstruction, low prob perforated viscus, ischemic bowel, abscess, given ab history will get CT a/p. Fall with high prob msk pain, low prob fx, did not head head, no loc. Plan for eval hip with above ct, add plain film thigh, knee. Chest pain resolved, non exertional, recent eval with cards, plan for ekg trop x2. HEART score 3 pending ekg, trop. Plan for cbc, bmp, lactate, IVF, IV analgesia. Anticipate follow-up to pcp, cards, but pending further workup at this time. Attending Summary of Care I have seen and examined the patient on 06/28/2021. I agree with the findings and plan of care as documented in the resident's note. 55-year-old with history of endometriosis and multiple abdominal surgeries, DVT previously on Xarelto, hyperlipidemia and HTN, CAD on nitro coming in with multiple issues. Patient coming in with abdominal complaints. Had diarrhea for 3 weeks. Stopped 5 days ago. No bowel movement since then. Has had some right lower and suprapubic pain. Took acetaminophen at home without improvement. Pain is constant. Not improving. Describes pain. Had some nausea and vomiting yesterday. No blood in it. Has some chronic abdominal pain but this is worse. Yesterday she was walking and slipped on clothes and fell on her right side. Did not hit her head or neck. Has been having pain in the hip since then. Has been able to walk. Today had some chest pain. She had similar pain months ago when she went to the emergency department. She had a stress test. She went and saw the dry cans back tender on June 12. The note is in the chart has been reviewed. They started her on a nitro and imdur. She began having chest pressure today. Went into her arms. [place] like a charley horse. She took 3 nitroglycerines and then it started feeling better. Last about 25 minutes. With the had some shortness of breath and some lightheadedness. No syncope. No fever or cough or congestion. No sore throat. Presently is feeling better. The pain was similar to what she had months ago aside from going into her arms. When she saw the c ardiologist on the she did not want a stress test or Angiogram. Patient is scheduled for Dopplers of her neck and her legs from her dry cans back tender tomorrow. ROS: As per HPI all other systems negative. No recent long car plane trips On exam: Vital signs reviewed, patient is in some pain, CTA, RRR, abdomen soft with multiple scars,is diffusely tender, no peritoneal signs, 2+ pulses, cap refill less than 2 seconds, legs are symmetric and not swollen, pink conjunctiva A/P: 55-year-old with endometriosis and multiple surgeries and CAD coming in with multiple complaints. Will attempt symptom control. Will obtain labs and a CT scan to rule out obstruction or other abdominal pathology. Will x-ray her hip to make sure there is no fracture. Regarding her chest pressure, will obtain EKG and troponins. She is likely at mild to moderate risk for ACS. Has a low heart score otherwise. Will attempt to discuss with her dry cans back tender. If all her symptoms are controlled canlikely follow up with her dry cans back tender to see if they would like to do outpatient testing if she isamenable to it. Otherwise, can probably continue with medical therapy. Does not appear to be a PE or dissection. Luis Felipe Kelsey ED Course as of 06/29/212005 Time: 06/28 2317 Comment: Seen by cardiology in [facility] 1. The patient had normal stress myocardial perfusion imaging at [facility] in January 2021. 2. We discussed optimizing medical therapy, redoing the stress test with exercise to determine exercise capacity and therefore do better risk stratification or going ahead with coronary angiography. 3. The patient opted for medical therapy which is very reasonable. The patient has been started on isosorbide mononitrate. Sublingual nitroglycerin as needed has also been added to her therapy. If she is intolerant of nitrates we will consider starting her on ranolazine or proceeding with cardiac catheterization given that stress testing was normal and she remains symptomatic. By: Dulce Young MD Time: 06/29 31 Comment: IMPRESSION: Moderate stool burden seen in the colon without otherwise acute abnormality in the abdomen or pelvis. By: Dulce Young MD Time: 06/29 243 Comment: Reports very minimal comfort. Still complaining of abdominal pain. Will plan to give GI cocktail, famotidine, Zofran. Denies any urinary symptoms. Does have history of urinary tract infections, but none recently. By: Dulce Young MD Time: 06/29 249 Comment: On EKG, insig q waves inferior present on EKG in January By: Luis Felipe Kelsey MD Time: 06/29 8112 Comment: Patient received an enema 1 hour ago. Still has not passed any stool. Still complaining ofabdominal pain. Will admit for observation, further symptomatic treatment and constipation treatment. By: Dulce Young MD Time: 06/29 613 Comment: Signed out to medicine By: Dulce Young MD Time: 06/29 717 Comment: ATTENDING TRANSITION OF CARE I, Osvaldo Taylor MD, am taking signout from Dr Kelsey (Attending). I have reviewed all pertinent vital signs allergies, and history available in the chart. Summary: 55 y.o. female admit obs for intractable abd and chest pain. Endometriosis, lots of abd surgery, hx of DVT. Presented for abd pain worse for a fe days, constipation, no gas pass for 5 days not better with OTC meds. CHest pain started yesterday NTG x 3 with mild improvement, and fall at home with right hip pain. Pending: X rays neg, CT abd/ pelvis no obs but lots of stool. Got enema x 2, pain meds, GI cocktail, fluids, UA +/- no sxs. Seen by cards 06/12/21 [facility] they recommended OP cath. Dispo: admit a still with abd pain post 12 hours. By: Osvaldo Taylor MD Constipation, unspecified constipation type Right hip pain Chest pain, unspecified type Abdominal pain Coronary artery disease involving lyt[place] heart with other form of angina pectoris, unspecified vessel or lesion type (HCC) Luis Felipe Kelsey MD 06/29/212005 ITY CONTROL MICROBIOLOGY SUPERVISOR * Ofe Sol RN - 06/28/2021 10:12 PM CST Bed: ED2-26 Expected date: Expected time: Means of arrival: Car Comments: Ofe Sol RN 06/28/212211 ITY CONTROL MICROBIOLOGY SUPERVISOR * Jacoby Valerio RN - 06/28/2021 6:40 PM CST Patient arrives to ED with complaint of CP and abd pain. Patient reports that she has chronic abd pain but it has gotten worse over the last three weeks. Patient states CP started 2.5 hours ago, patient took home Nitro without relief. Patient states she has had 30 abd surgeries. Patient also reports she has not had a BM in a week. ITY CONTROL MICROBIOLOGY SUPERVISOR documented in this encounter Miscellaneous Notes * Assessment & Plan Note - Megan Crockett MD - 07/02/2021 10:06 AM QUALITY CONTROL MICROBIOLOGY SUPERVISOR Associated Problem(s): Abdominal pain Please see constipation noted elsewhere. CT is otherwise unremarkable. Pt also has underlying chronic abdominal pain. ITY CONTROL MICROBIOLOGY SUPERVISOR * Assessment & Plan Note - Megna Crockett MD - 07/02/2021 10:06 AM QUALITY CONTROL MICROBIOLOGY SUPERVISOR Associated Problem(s): Constipation Pt's history and CT suggests this; no suggestion of bowel obstruction on CT. Continue bowel regimenand monitor for stools. Avoid narcotics; pt reports she is not on any narcotics at home. Mag citrate was tried per pt's request but this did not result in bm. She drank @ 2L of [place] with good results. ITY CONTROL MICROBIOLOGY SUPERVISOR * Assessment & Plan Note - Megan Crockett MD - 07/02/2021 10:06 AM QUALITY CONTROL MICROBIOLOGY SUPERVISOR Associated Problem(s): Anxiety state Continue home meds. ITY CONTROL MICROBIOLOGY SUPERVISOR * Assessment & Plan Note - Megan Crockett MD - 07/02/2021 10:06 AM QUALITY CONTROL MICROBIOLOGY SUPERVISOR Associated Problem(s): Atypical chest pain Troponins are negative. Continue to follow with dry cans back tender as outpatient. ITY CONTROL MICROBIOLOGY SUPERVISOR * Assessment & Plan Note - Megan Crockett MD - 07/02/2021 10:06 AM QUALITY CONTROL MICROBIOLOGY SUPERVISOR Associated Problem(s): Fall Mechanical fall day prior to presentation with right hip pain. No prior history of hip pain. Xray of hip and knee were negative. Continue management with nonnarcotic meds. Home health referral made outpt. ITY CONTROL MICROBIOLOGY SUPERVISOR * Assessment & Plan Note - Megan Crockett MD - 07/02/2021 10:06 AM QUALITY CONTROL MICROBIOLOGY SUPERVISOR Associated Problem(s): Hypotension Pt's systolic blood pressure was noted to [...] metoprolol for now. Pt is contact her dry cans back tender tomorrow for further instructions. ITY CONTROL MICROBIOLOGY SUPERVISOR ITY CONTROL MICROBIOLOGY SUPERVISOR * Subjective & Objective - Megan Crockett MD - 07/02/2021 10:06 AM QUALITY CONTROL MICROBIOLOGY SUPERVISOR Daily Progress Note Division of Hospital Medicine Name: Madison Weinberg Today: July 02, 2021 : 1965 Age: 55 y.o. female Admit: 06/28/2021 Bed: [id number] Subjective Chief complaint: abdominal pain Interval History: abdominal discomfort improved. Pt had low blood pressure yesterday morning; metoprolol held. No other low pressures. Objective Medications: Scheduled: acetaminophen, 1,000 mg, oral, Q6H ELIU aspirin, 81 mg, oral, Every other day atorvastatin, 20 mg, oral, Nightly cyclobenzaprine, 10 mg, oral, BID dicyclomine, 10 mg, oral, TID docusate sodium, 100 mg, oral, Daily enoxaparin, 40 mg, subcutaneous, Daily-2100 fluticasone propionate, 2 spray, each nostril, Daily isosorbide mononitrate ER, 30 mg, oral, Daily lidocaine, 1 patch, transdermal, Daily [Held by Provider] metoprolol tartrate, 25 mg, oral, BID pantoprazole DR, 40 mg, oral, QAM sodium chloride 0.9%, 0.5-20 mL, intra-catheter, Q8H ELIU traZODone, 150 mg, oral, Nightly venlafaxine XR, 225 mg, oral, Daily with breakfast Infusions: PRN: clonazePAM ??? ondansetron ??? sodium chloride 0.9% Vitals: 24hr Min/Max: Temp Min: 36.3 ??C Max: 37 ??C Pulse Min: 55 Max: 68 BP Min: 60/35 Max: 118/65 Resp Min: 18 Max: 20 SpO2 Min: 96 % Max: 99 % Most Recent: Vitals: 07/02/21 0810 BP: 118/65 Pulse: 68 Resp: 20 Temp: 36.8 ??C SpO2: 96% Intake/Output Summary (Last 24 hours) at 07/02/2021 1048 Last data filed at 07/01/2021 1330 Gross per 24 hour Intake 250 ml Output -- Net 250 ml Physical Exam Gen: NAD HEENT: NCAT Heart: RRR Lungs: CTA Abd: +BS, soft Ext: moves all extremities Neuro: grossly intact Skin: warm and dry Lab/Diagnostic Review: Recent Results (from the past 24 hour(s)) Blood culture Blood Hand, right Collection Time: 07/01/21 1:32 PM Specimen: Hand, right; Blood Result Value Ref Range Report Preliminary Report: No growth to date. Comprehensive metabolic panel Collection Time: 07/02/21 9:21 AM Result Value Ref Range Sodium 141 135 - 145 mmol/L Potassium, pl 4.2 3.3 - 4.9 mmol/L Chloride 105 97 - 110 mmol/L CO2 26 22 - 32 mmol/L Anion gap 10 2 - 15 mmol/L BUN 19 8 - 25 mg/dL Creatinine 1.11 (H) 0.60 - 1.10 mg/dL Glucose 103 70 - 199 mg/dL Calcium 9.3 8.5 - 10.3 mg/dL Bilirubin, total 0.2 0.1 - 1.2 mg/dL Protein, pl 7.1 6.5 - 8.5 g/dL Albumin 4.1 3.5 - 5.0 g/dL Alk phos 101 40 - 130 Units/L ALT 40 7 - 45 Units/L AST 39 10 - 45 Units/L CBC with auto differential Collection Time: 07/02/21 9:21 AM Result Value Ref Range WBC 8.1 3.8 - 9.9 K/cumm Hgb 13.2 11.9 - 15.5 g/dL Hct 40.8 35.6 - 45.5 % Plt 320 150 - 400 K/cumm MPV 9.8 9.1 - 12.3 fL RBC 4.57 3.90 - 5.20 M/cumm MCV 89.3 81.3 - 96.4 fL MCH 28.9 27.1 - 33.3 pg MCHC 32.4 32.3 - 35.7 g/dL RDW CV 13.2 11.1 - 14.9 % RDW SD 43.1 35.7 - 48.1 fL NRBC abs 0.00 0.00 - 0.01 K/cumm Differential, auto Collection Time: 07/02/21 9:21 AM Result Value Ref Range Neutrophil abs 6.7 (H) 1.7 - 6.5 K/cumm Imm gran abs 0.0 0.0 - 0.1 K/cumm Lymphocyte abs 1.0 0.8 - 3.3 K/cumm Monocyte abs 0.4 0.2 - 0.8 K/cumm Eosinophil abs 0.1 0.0 - 0.5 K/cumm Basophil abs 0.0 0.0 - 0.1 K/cumm Neutrophil pct 82.5 % Imm gran pct 0.1 % Lymphocyte pct 12.1 % Monocyte pct 4.3 % Eosinophil pct 0.6 % Basophil pct 0.4 % eGFR Collection Time: 07/02/21 9:21 AM Result Value Ref Range eGFR 56 (L) 90 - 130 mL/min/1.73 m2 I have reviewed the laboratory results. Assessment/Plan Code Status: Full Code Diet: Adult Diet Regular Adult Discharge Diet ITY CONTROL MICROBIOLOGY SUPERVISOR * Plan of Care - Curtis Cosme RN - 07/02/2021 9:51 AM CST Problem: Health Behavior: Goal: Understanding of discharge needs will improve Outcome: Progressing Problem: Activity: Goal: Risk for activity intolerance will decrease Outcome: Progressing Problem: Lack of Knowledge: Goal: Knowledge of diagnostic tests will improve Outcome: Progressing Goal: Knowledge of disease or condition will improve Outcome: Progressing Goal: Knowledge of safety precautions will improve Outcome: Progressing Goal: Knowledge of the prescribed therapeutic regimen will improve Outcome: Progressing Problem: Health Behavior: Goal: Ability to state signs and symptoms to report to health care provider will improve Outcome: Progressing Problem: Physical Regulation: Goal: Ability to maintain clinical measurements within normal limits will improve Outcome: Progressing Problem: Infection Risk: Goal: Will remain free from infection Outcome: Progressing Problem: Safety: Goal: Ability to remain free from injury will improve Outcome: Progressing Goal: Will remain free from falls Outcome: Progressing Problem: Self-Care: Goal: Ability to participate in self-care as condition permits will improve Outcome: Progressing Problem: Sensory: Goal: Pain level will decrease Outcome: Progressing Goal: Ability to develop a pain control plan will improve Outcome: Progressing Problem: Skin Integrity: Goal: Risk for impaired skin integrity will decrease Outcome: Progressing Problem: Tissue Perfusion: Goal: Risk factors for ineffective tissue perfusion will decrease Outcome: Progressing Problem: Lack of Knowledge: Goal: Ability to develop a pain control plan will improve Outcome: Progressing Goal: Ability to identify pain intensity on a pain scale and rate it consistently will improve Outcome: Progressing Goal: Ability to notify healthcare provider of pain before it becomes unmanageable or unbearable will improve Outcome: Progressing Problem: Medication: Goal: Satisfaction with pain management regimen will improve Outcome: Progressing Problem: Sensory: Goal: Ability to identify factors that increase the pain will improve Outcome: Progressing Goal: Pain level will decrease Outcome: Progressing Problem: Lack of Knowledge: Goal: Complications related to the disease process, condition or treatment will be avoided or minimized Outcome: Progressing Goals: Clinical Goals for the Shift: safety, comfort,meds and vs Summary: [employer] SUPERVISOR * Plan of Care - Mynor Kitchen RN - 07/01/2021 11:16 PM CST Goals: Clinical Goals for the Shift: meds as per order, pain meds as per order, maintain safety and comfort Summary: Problem: Health Behavior: Goal: Understanding of discharge needs will improve Outcome: Progressing Problem: Activity: Goal: Risk for activity intolerance will decrease Outcome: Progressing Problem: Lack of Knowledge: Goal: Knowledge of diagnostic tests will improve Outcome: Progressing Goal: Knowledge of disease or condition will improve Outcome: Progressing Goal: Knowledge of safety precautions will improve Outcome: Progressing Goal: Knowledge of the prescribed therapeutic regimen will improve Outcome: Progressing Problem: Health Behavior: Goal: Ability to state signs and symptoms to report to health care provider will improve Outcome: Progressing Problem: Physical Regulation: Goal: Ability to maintain clinical measurements within normal limits will improve Outcome: Progressing Problem: Infection Risk: Goal: Will remain free from infection Outcome: Progressing Problem: Safety: Goal: Ability to remain free from injury will improve Outcome: Progressing Goal: Will remain free from falls Outcome: Progressing Problem: Self-Care: Goal: Ability to participate in self-care as condition permits will improve Outcome: Progressing Problem: Sensory: Goal: Pain level will decrease Outcome: Progressing Goal: Ability to develop a pain control plan will improve Outcome: Progressing Problem: Skin Integrity: Goal: Risk for impaired skin integrity will decrease Outcome: Progressing Problem: Tissue Perfusion: Goal: Risk factors for ineffective tissue perfusion will decrease Outcome: Progressing Problem: Lack of Knowledge: Goal: Ability to develop a pain control plan will improve Outcome: Progressing Goal: Ability to identify pain intensity on a pain scale and rate it consistently will improve Outcome: Progressing Goal: Ability to notify healthcare provider of pain before it becomes unmanageable or unbearable will improve Outcome: Progressing Problem: Medication: Goal: Satisfaction with pain management regimen will improve Outcome: Progressing Problem: Sensory: Goal: Ability to identify factors that increase the pain will improve Outcome: Progressing Goal: Pain level will decrease Outcome: Progressing Problem: Lack of Knowledge: Goal: Complications related to the disease process, condition or treatment will be avoided or minimized Outcome: Progressing [employer] SUPERVISOR * Hospital Course - Megan Crockett MD - 07/01/2021 11:56 AM CST Pt is a 55 yo with multiple prior abdominal surgeries who comes in with abdominal pain, nausea and anorexia for the last week. Pt reports not having bowel movement in that time period. Just prior to that, she overcame 3 weeks of diarrhea which she was told was likely antibiotic induced. No stool studies were done. She was reportedly on Bactrim for mesh infection. CT A/P with contrast done in the ED showed some stool but no other abnormalities. Additionally, she slipped and had a mechanical fall in her home day prior to presentation, hurting her right hip and lower back. Xray of the hip and knee done in the ED was neg for any fractures. Pt is currently not having any chest pain but she had some yesterday for which she took 3 NTG but this did not help. She follows a outpatient dry cans back tender. She had neg troponins in the ED and EKG didnot show any acute ST/T wave abnormalities. Hospital Course: Pt drank GoLytely and this resulted in her having bowel movement. She continued to have her chronicabdominal pain. Xray of low back was also negative for fracture but suggested mild DJD. Home Health referral was made for PT and OT. She should continue to follow-up with her dry cans back tender as outpatient. [employer] MI[employer] SUPERVISOR * Assessment & Plan Note - Megan Crockett MD - 07/01/2021 10:54 AM [employer]AL[employer]OL MI[employer]BIOLOGY SUPERVISOR Associated Problem(s): Fall Mechanical fall day prior to presentation with right hip pain. No prior history of hip pain. Xray of hip and knee were negative. Continue management with nonnarcotic meds. PT consulted. [employer] MI[employer] SUPERVISOR * Assessment & Plan Note - Megan Crockett MD - 07/01/2021 10:54 AM [employer]AL[employer] MI[employer]BI[employer] SUPERVISOR Associated Problem(s): Atypical chest pain Troponins are negative. Continue to follow with dry cans back tender as outpatient. [employer] MI[employer] SUPERVISOR * Assessment & Plan Note - Megan Crockett MD - 07/01/2021 10:53 AM [employer]AL[employer]OL MI[employer]BI[employer]Y SUPERVISOR Associated Problem(s): Anxiety state Continue home meds. [employer] MI[employer] SUPERVISOR * Assessment & Plan Note - Megan Crockett MD - 07/01/2021 10:53 AM [employer]AL[employer]OL MI[employer]BI[employer]Y SUPERVISOR Associated Problem(s): Constipation Pt's history and CT suggests this; no suggestion of bowel obstruction on CT. Continue bowel regimenand monitor for stools. Avoid narcotics; pt reports she is not on any narcotics at home. Mag citrate was tried yesterday per pt's request but this did not result in bm. She drank @ 2L of Golytely with good results. [employer] MI[employer] SUPERVISOR * Assessment & Plan Note - Megan Crockett MD - 07/01/2021 10:52 AM [employer]OL MI[employer]BI[employer]Y SUPERVISOR Associated Problem(s): Abdominal pain Please see constipation noted elsewhere. CT is otherwise unremarkable. Pt also has underlying chronic abdominal pain. 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 female Admit: 06/28/2021 Bed: [id number] Subjective Chief complaint: abdominal pain Interval History: pt was able to have bowel movement yesterday. Last night, she was able to have dinner but this morning, threw up breakfast. She does take zofran for nausea at home. Pt continues to complain of right hip pain and low back pain since the fall. Objective Medications: Scheduled: acetaminophen, 1,000 mg, oral, Q6H ELIU aspirin, 81 mg, oral, Every other day atorvastatin, 20 mg, oral, Nightly cyclobenzaprine, 10 mg, oral, BID dicyclomine, 10 mg, oral, TID docusate sodium, 100 mg, oral, Daily enoxaparin, 40 mg, subcutaneous, Daily-2100 fluticasone propionate, 2 spray, each nostril, Daily isosorbide mononitrate ER, 30 mg, oral, Daily lidocaine, 1 patch, transdermal, Daily metoprolol tartrate, 25 mg, oral, BID pantoprazole DR, 40 mg, oral, QAM sodium chloride 0.9%, 0.5-20 mL, intra-catheter, Q8H ELIU traZODone, 150 mg, oral, Nightly venlafaxine XR, 225 mg, oral, Daily with breakfast Infusions: PRN: clonazePAM ??? ondansetron ??? sodium chloride 0.9% Vitals: 24hr Min/Max: Temp Min: 36.3 ??C Max: 36.8 ??C Pulse Min: 61 Max: 71 BP Min: 91/50 Max: 124/53 Resp Min: 18 Max: 23 SpO2 Min: 91 % Max: 99 % Most Recent: Vitals: 07/01/21 0820 BP: 101/63 Pulse: 61 Resp: 18 Temp: 36.4 ??C SpO2: 98% Intake/Output Summary (Last 24 hours) at 07/01/2021 1043 Last data filed at 07/01/2021 0445 Gross per 24 hour Intake 148 ml Output -- Net 148 ml Physical Exam Gen: NAD HEENT: NCAT Heart: RRR Lungs: CTA Abd: +BS, soft, diffuse tenderness to palpation Ext: moves all extremities; TTP over right lateral hip and low back Neuro: grossly intact Skin: warm and dry; no bruise on right hip or back Lab/Diagnostic Review: Recent Results (from the past 24 hour(s)) Comprehensive metabolic panel Collection Time: 07/01/21 5:08 AM Result Value Ref Range Sodium 140 135 - 145 mmol/L Potassium, pl 3.9 3.3 - 4.9 mmol/L Chloride 104 97 - 110 mmol/L CO2 29 22 - 32 mmol/L Anion gap 7 2 - 15 mmol/L BUN 13 8 - 25 mg/dL Creatinine 1.08 0.60 - 1.10 mg/dL Glucose 102 70 - 199 mg/dL Calcium 8.6 8.5 - 10.3 mg/dL Bilirubin, total 0.2 0.1 - 1.2 mg/dL Protein, pl 5.7 (L) 6.5 - 8.5 g/dL Albumin 3.3 (L) 3.5 - 5.0 g/dL Alk phos 78 40 - 130 Units/L ALT 20 7 - 45 Units/L AST 27 10 - 45 Units/L CBC with auto differential Collection Time: 07/01/21 5:08 AM Result Value Ref Range WBC 3.8 3.8 - 9.9 K/cumm Hgb 9.9 (L) 11.9 - 15.5 g/dL Hct 30.5 (L) 35.6 - 45.5 % Plt 256 150 - 400 K/cumm MPV 10.0 9.1 - 12.3 fL RBC 3.40 (L) 3.90 - 5.20 M/cumm MCV 89.7 81.3 - 96.4 fL MCH 29.1 27.1 - 33.3 pg MCHC 32.5 32.3 - 35.7 g/dL RDW CV 13.2 11.1 - 14.9 % RDW SD 43.4 35.7 - 48.1 fL NRBC abs 0.00 0.00 - 0.01 K/cumm Differential, auto Collection Time: 07/01/21 5:08 AM Result Value Ref Range Neutrophil abs 2.5 1.7 - 6.5 K/cumm Imm gran abs 0.0 0.0 - 0.1 K/cumm Lymphocyte abs 0.9 0.8 - 3.3 K/cumm Monocyte abs 0.3 0.2 - 0.8 K/cumm Eosinophil abs 0.1 0.0 - 0.5 K/cumm Basophil abs 0.0 0.0 - 0.1 K/cumm Neutrophil pct 65.3 % Imm gran pct 0.3 % Lymphocyte pct 24.7 % Monocyte pct 7.9 % Eosinophil pct 1.3 % Basophil pct 0.5 % eGFR Collection Time: 07/01/21 5:08 AM Result Value Ref Range eGFR 58 (L) 90 - 130 mL/min/1.73 m2 I have reviewed the laboratory results. Assessment/Plan Code Status: Full Code Diet: Adult Diet Regular [employer] SUPERVISOR * Plan of Care - Curtis Cosme RN - 07/01/2021 10:39 AM CST Problem: Health Behavior: Goal: Understanding of discharge needs will improve Outcome: Progressing Problem: Activity: Goal: Risk for activity intolerance will decrease Outcome: Progressing Problem: Lack of Knowledge: Goal: Knowledge of diagnostic tests will improve Outcome: Progressing Goal: Knowledge of disease or condition will improve Outcome: Progressing Goal: Knowledge of safety precautions will improve Outcome: Progressing Goal: Knowledge of the prescribed therapeutic regimen will improve Outcome: Progressing Problem: Health Behavior: Goal: Ability to state signs and symptoms to report to health care provider will improve Outcome: Progressing Problem: Physical Regulation: Goal: Ability to maintain clinical measurements within normal limits will improve Outcome: Progressing Problem: Infection Risk: Goal: Will remain free from infection Outcome: Progressing Problem: Safety: Goal: Ability to remain free from injury will improve Outcome: Progressing Goal: Will remain free from falls Outcome: Progressing Problem: Self-Care: Goal: Ability to participate in self-care as condition permits will improve Outcome: Progressing Problem: Sensory: Goal: Pain level will decrease Outcome: Progressing Goal: Ability to develop a pain control plan will improve Outcome: Progressing Problem: Skin Integrity: Goal: Risk for impaired skin integrity will decrease Outcome: Progressing Problem: Tissue Perfusion: Goal: Risk factors for ineffective tissue perfusion will decrease Outcome: Progressing Problem: Lack of Knowledge: Goal: Ability to develop a pain control plan will improve Outcome: Progressing Goal: Ability to identify pain intensity on a pain scale and rate it consistently will improve Outcome: Progressing Goal: Ability to notify healthcare provider of pain before it becomes unmanageable or unbearable will improve Outcome: Progressing Problem: Medication: Goal: Satisfaction with pain management regimen will improve Outcome: Progressing Problem: Sensory: Goal: Ability to identify factors that increase the pain will improve Outcome: Progressing Goal: Pain level will decrease Outcome: Progressing Problem: Lack of Knowledge: Goal: Complications related to the disease process, condition or treatment will be avoided or minimized Outcome: Progressing Goals: Clinical Goals for the Shift: meds as per order, pain meds as per order, maintain safety and comfort Summary: [employer] SUPERVISOR * Plan of Care - Nichelle Shaffer RN - 07/01/2021 1:37 AM CST Goals: Clinical Goals for the Shift: Monitor VS. Alleviate pain. Administer meds. Draw labs. Promote safety and comfort Summary: Patient's vital signs are stable. Complained of extreme pain, at night additional pain meds given. Labs taken. No fall incident noted. Will continue to monitor Problem: Lack of Knowledge: Goal: Knowledge of disease or condition will improve Outcome: Progressing Problem: Lack of Knowledge: Goal: Knowledge of the prescribed therapeutic regimen will improve Outcome: Progressing Problem: Health Behavior: Goal: Ability to state signs and symptoms to report to health care provider will improve Outcome: Progressing Problem: Physical Regulation: Goal: Ability to maintain clinical measurements within normal limits will improve Outcome: Progressing Problem: Safety: Goal: Ability to remain free from injury will improve Outcome: Progressing Problem: Lack of Knowledge: Goal: Ability to develop a pain control plan will improve Outcome: Progressing Problem: Lack of Knowledge: Goal: Ability to notify healthcare provider of pain before it becomes unmanageable or unbearable will improve Outcome: Progressing Problem: Sensory: Goal: Ability to identify factors that increase the pain will improve Outcome: Progressing Problem: Sensory: Goal: Pain level will decrease Outcome: Progressing Problem: Lack of Knowledge: Goal: Complications related to the disease process, condition or treatment will be avoided or minimized Outcome: Progressing Problem: Health Behavior: Goal: Understanding of discharge needs will improve Outcome: Progressing Problem: Medication: Goal: Satisfaction with pain management regimen will improve Outcome: Progressing [employer] MI[employer] SUPERVISOR * Assessment & Plan Note - Megan Crockett MD - 06/30/2021 11:53 AM [employer]AL[employer] SUPERVISOR Associated Problem(s): Fall Mechanical fall yesterday with right hip pain. No prior history of hip pain. Xray of hip and knee were negative. Continue management with nonnarcotic meds. PT consulted but pt refused to work with PT this morning. 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 Continue to follow with dry cans back tender as outpatient. IT[employer] MI[employer]BI[employer]Y SUPERVISOR * Assessment & Plan Note - Megan Crockett MD - 06/30/2021 11:51 AM QUAL[employer]OL MI[employer]BI[employer]Y SUPERVISOR Associated Problem(s): Anxiety state Continue home meds. [employer] MI[employer] SUPERVISOR * Assessment & Plan Note - Megan Crockett MD - 06/30/2021 11:49 AM QUAL[employer] MI[employer]BI[employer]Y SUPERVISOR Associated Problem(s): Constipation Pt's history and CT suggests this; no suggestion of bowel obstruction. Continue bowel regimen and monitor for stools. Avoid narcotics; pt reports she is not on any narcotics at home. Mag citrate was tried yesterday per pt's request but this did not result in bm. Plan is to place NGand give Golytely through this today. IT[employer] MI[employer]Y SUPERVISOR * Assessment & Plan Note - Megan Crockett MD - 06/30/2021 11:49 AM QUAL[employer]OL MI[employer]BI[employer]Y SUPERVISOR Associated Problem(s): Abdominal pain Please see constipation noted elsewhere. CT is otherwise unremarkable. Pt also has underlying chronic abdominal pain. IT[employer] MI[employer]Y SUPERVISOR * Subjective & Objective - Megan Crockett MD - 06/30/2021 11:28 AM QUAL[employer]OL MI[employer]BIOLOGY SUPERVISOR Daily Progress Note Division of Hospital Medicine Name: Madison Weinberg Today: June 30, 2021 : 1965 Age: 55 y.o. female Admit: 06/28/2021 Bed: [id number] Subjective Chief complaint: abdominal pain Interval History: Pt has not had bm. Continues to note abdominal pain. She has refused to work withtherapy. Objective Medications: Scheduled: acetaminophen, 1,000 mg, oral, Q6H ELIU aspirin, 81 mg, oral, Every other day atorvastatin, 20 mg, oral, Nightly cyclobenzaprine, 10 mg, oral, BID dicyclomine, 10 mg, oral, TID docusate sodium, 100 mg, oral, Daily enoxaparin, 40 mg, subcutaneous, Daily-2100 fluticasone propionate, 2 spray, each nostril, Daily isosorbide mononitrate ER, 30 mg, oral, Daily lidocaine, 1 patch, transdermal, Daily metoprolol tartrate, 25 mg, oral, BID pantoprazole DR, 40 mg, oral, QAM phenoL, 2 spray, mouth/throat, Once polyethylene glycol, 4,000 mL, oral, Once sodium chloride 0.9%, 0.5-20 mL, intra-catheter, Q8H ELIU traZODone, 150 mg, oral, Nightly venlafaxine XR, 225 mg, oral, Daily with breakfast Infusions: PRN: clonazePAM ??? ondansetron ??? sodium chloride 0.9% Vitals: 24hr Min/Max: Temp Min: 36.2 ??C Max: 36.6 ??C Pulse Min: 58 Max: 89 BP Min: 90/46 Max: 154/75 Resp Min: 16 Max: 24 SpO2 Min: 92 % Max: 100 % Most Recent: Vitals: 06/30/21 0735 BP: 90/46 Pulse: 62 Resp: 20 Temp: 36.6 ??C SpO2: 94% Intake/Output Summary (Last 24 hours) at 06/30/2021 1128 Last data filed at 06/30/2021 0401 Gross per 24 hour Intake 40 ml Output -- Net 40 ml Physical Exam Gen: NAD HEENT: NCAT Heart: RRR Lungs: CTA Abd: +BS, soft Ext: moves all extremities Neuro: grossly intact Skin: warm and dry Lab/Diagnostic Review: No results found for this or any previous visit (from the past 24 hour(s)). I have reviewed the laboratory results. Imaging Results: XR Knee Right 1 or 2 Views Narrative: EXAMINATION: XR FEMUR RIGHT 2 OR MORE VIEWS, XR KNEE RIGHT 1 OR 2 VIEWS HISTORY: Fall with thigh and knee pain. COMPARISON: Concurrent CT. 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 No acute fracture. Normal alignment. Mild right hip osteoarthritis. Right knee: No acute fracture. Normal alignment. Normal joint spaces. Impression: No acute osseous abnormality involving the right femur or right knee. Dictated by: Bon Burgos M.D. The radiology attending physician has personally reviewed this study, and had reviewed and/or edited this written report and agrees with it. Electronically signed by: Omar Kim M.D. XR Femur Right 2 or More Views Narrative: EXAMINATION: XR FEMUR RIGHT 2 OR MORE VIEWS, XR KNEE RIGHT 1 OR 2 VIEWS HISTORY: Fall with thigh and knee pain. COMPARISON: Concurrent CT. 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 No acute fracture. Normal alignment. Mild right hip osteoarthritis. Right knee: No acute fracture. Normal alignment. Normal joint spaces. Impression: No acute osseous abnormality involving the right femur or right knee. Dictated by: Bon Burgos M.D. The radiology attending physician has personally reviewed this study, and had reviewed and/or edited this written report and agrees with it. Electronically signed by: Omar Kim M.D. CT Abdomen Pelvis W Contrast Narrative: EXAMINATION: Computed tomography of the abdomen and pelvis with intravenous contrast HISTORY: Abdominal pain. No bowel movement for the past 5 days. TECHNIQUE: Transaxial computed tomographic images of the abdomen and pelvis were obtained with intravenous contrast according to the standard protocol after the uneventful administration of 95 mL Opti-Ray 350 intravenous contrast. COMPARISON: 02/12/2021. FINDINGS: Images of the lower chest show the heart to be normal in size without pericardial effusion. Mild peripheral reticulation is seen at the lung bases, which are otherwise clear. The liver and gallbladder are normal. Spleen is normal. Pancreas is normal. Adrenal glands normal. Kidneys normal. There are some nonobstructing stone seen in the left kidney. There is some stool seen in the colon. There is no evidence though of bowel obstruction. There are postsurgical changes of left hemicolectomy. There is no suspicious lymphadenopathy in the abdomen or pelvis. Urinary bladder is normal. Uterus is surgically absent. There is pelvic floor relaxation. There is at least moderate atherosclerosis of the abdominal aorta. No aggressive osseous lesion or acute fracture. Fat necrosis in the posterior soft tissues. Impression: Moderate stool burden seen in the colon without otherwise acute abnormality in the abdomen or pelvis. Dictated by: Bon Burgos M.D. The radiology attending physician has personally reviewed this study, and had reviewed and/or edited this written report and agrees with it. Electronically signed by: Omar Kim M.D. ECG 12 lead Luis Felipe Kelsey MD 06/29/2021 2:49 AM ECG 12 lead Date/Time: 06/29/2021 2:48 AM Performed by: Luis Felipe Kelsey MD Authorized by: Dulce Young MD Rate: ECG rate: 71 ECG rate assessment: normal Rhythm: Rhythm: sinus rhythm Ectopy: Ectopy: PAC QRS: QRS axis: Normal QRS intervals: Normal Conduction: Conduction: normal ST segments: ST segments: Normal T waves: T waves: non-specific Q waves: Q wave noted on lead: insig q. Other findings: Other findings: prolonged qTc interval Previous ECG: Previous ECG: Compared to current Date of previous ECG: tonight. Interpretation: Interpretation: No acute injury pattern Recommended Follow-up: Recommended follow up: further workup in the ED Assessment/Plan Code Status: Full Code Diet: NPO Diet Ice chips, Sips with meds [employer] MI[employer]BI[employer]Y SUPERVISOR IT[employer] MI[employer]BIOLOGY SUPERVISOR * Plan of Care - Curtis Cosme RN - 06/30/2021 9:58 AM CST Problem: Health Behavior: Goal: Understanding of discharge needs will improve Outcome: Progressing Problem: Activity: Goal: Risk for activity intolerance will decrease Outcome: Progressing Problem: Lack of Knowledge: Goal: Knowledge of diagnostic tests will improve Outcome: Progressing Goal: Knowledge of disease or condition will improve Outcome: Progressing Goal: Knowledge of safety precautions will improve Outcome: Progressing Goal: Knowledge of the prescribed therapeutic regimen will improve Outcome: Progressing Problem: Health Behavior: Goal: Ability to state signs and symptoms to report to health care provider will improve Outcome: Progressing Problem: Physical Regulation: Goal: Ability to maintain clinical measurements within normal limits will improve Outcome: Progressing Problem: Infection Risk: Goal: Will remain free from infection Outcome: Progressing Problem: Safety: Goal: Ability to remain free from injury will improve Outcome: Progressing Goal: Will remain free from falls Outcome: Progressing Problem: Self-Care: Goal: Ability to participate in self-care as condition permits will improve Outcome: Progressing Problem: Sensory: Goal: Pain level will decrease Outcome: Progressing Goal: Ability to develop a pain control plan will improve Outcome: Progressing Problem: Skin Integrity: Goal: Risk for impaired skin integrity will decrease Outcome: Progressing Problem: Tissue Perfusion: Goal: Risk factors for ineffective tissue perfusion will decrease Outcome: Progressing Problem: Lack of Knowledge: Goal: Ability to develop a pain control plan will improve Outcome: Progressing Goal: Ability to identify pain intensity on a pain scale and rate it consistently will improve Outcome: Progressing Goal: Ability to notify healthcare provider of pain before it becomes unmanageable or unbearable will improve Outcome: Progressing Problem: Medication: Goal: Satisfaction with pain management regimen will improve Outcome: Progressing Problem: Sensory: Goal: Ability to identify factors that increase the pain will improve Outcome: Progressing Goal: Pain level will decrease Outcome: Progressing Problem: Lack of Knowledge: Goal: Complications related to the disease process, condition or treatment will be avoided or minimized Outcome: Progressing Goals: Clinical Goals for the Shift: monitor vital signs, meds as per order, promote safety Summary: meds given as per order, metoprolol held due to soft blood pressure this AM, Safety and comfort maintained [employer] MI[employer]BI[employer] SUPERVISOR * Plan of Care - Nichelle Shaffer RN - 06/30/2021 12:56 AM CST Goals: Clinical Goals for the Shift: Monitor Vs. Alleviate pain. Administer meds. Promote safety and comfort Summary: Patient's vital signs are stable. Complained of extreme abdominal pain, hip pain but slept comfortably after the pain medications. No fall incident noted. Problem: Lack of Knowledge: Goal: Knowledge of the prescribed therapeutic regimen will improve Outcome: Progressing Problem: Health Behavior: Goal: Ability to state signs and symptoms to report to health care provider will improve Outcome: Progressing Problem: Physical Regulation: Goal: Ability to maintain clinical measurements within normal limits will improve Outcome: Progressing Problem: Safety: Goal: Will remain free from falls Outcome: Progressing Problem: Self-Care: Goal: Ability to participate in self-care as condition permits will improve Outcome: Progressing Problem: Lack of Knowledge: Goal: Ability to identify pain intensity on a pain scale and rate it consistently will improve Outcome: Progressing Problem: Lack of Knowledge: Goal: Ability to notify healthcare provider of pain before it becomes unmanageable or unbearable will improve Outcome: Progressing Problem: Medication: Goal: Satisfaction with pain management regimen will improve Outcome: Progressing Problem: Sensory: Goal: Pain level will decrease Outcome: Progressing Problem: Health Behavior: Goal: Understanding of discharge needs will improve Outcome: Progressing ITY CONTROL MICROBIOLOGY SUPERVISOR * Plan of Care - Cande Dhillon RN - 06/29/2021 4:22 PM CST Goals: Clinical Goals for the Shift: Monitor VS, admin meds Summary: VSS. Medications administered (see MAR). Problem: Health Behavior: Goal: Understanding of discharge needs will improve Outcome: Progressing Problem: Activity: Goal: Risk for activity intolerance will decrease Outcome: Progressing Problem: Lack of Knowledge: Goal: Knowledge of diagnostic tests will improve Outcome: Progressing Goal: Knowledge of disease or condition will improve Outcome: Progressing Goal: Knowledge of safety precautions will improve Outcome: Progressing Goal: Knowledge of the prescribed therapeutic regimen will improve Outcome: Progressing Problem: Health Behavior: Goal: Ability to state signs and symptoms to report to health care provider will improve Outcome: Progressing Problem: Physical Regulation: Goal: Ability to maintain clinical measurements within normal limits will improve Outcome: Progressing Problem: Infection Risk: Goal: Will remain free from infection Outcome: Progressing Problem: Safety: Goal: Ability to remain free from injury will improve Outcome: Progressing Goal: Will remain free from falls Outcome: Progressing Problem: Self-Care: Goal: Ability to participate in self-care as condition permits will improve Outcome: Progressing Problem: Sensory: Goal: Pain level will decrease Outcome: Progressing Goal: Ability to develop a pain control plan will improve Outcome: Progressing Problem: Skin Integrity: Goal: Risk for impaired skin integrity will decrease Outcome: Progressing Problem: Tissue Perfusion: Goal: Risk factors for ineffective tissue perfusion will decrease Outcome: Progressing ITY CONTROL MICROBIOLOGY SUPERVISOR * Assessment & Plan Note - Megan Crockett MD - 06/29/2021 1:47 PM QUALITY CONTROL MICROBIOLOGY SUPERVISOR Associated Problem(s): Fall Mechanical fall yesterday with right hip pain. No prior history of hip pain. Xray of hip and knee were negative. Continue management with nonnarcotic meds. ITY CONTROL MICROBIOLOGY SUPERVISOR * Assessment & Plan Note - Mgean Crockett MD - 06/29/2021 1:46 PM QUALITY CONTROL MICROBIOLOGY SUPERVISOR Associated Problem(s): Anxiety state Continue home meds. ITY CONTROL MICROBIOLOGY SUPERVISOR * Assessment & Plan Note - Megan Crockett MD - 06/29/2021 1:45 PM QUALITY CONTROL MICROBIOLOGY SUPERVISOR Associated Problem(s): Abdominal pain Please see constipation noted elsewhere. CT is otherwise unremarkable. Pt also has underlying chronic abdominal pain. ITY CONTROL MICROBIOLOGY SUPERVISOR ITY CONTROL MICROBIOLOGY SUPERVISOR * Assessment & Plan Note - Megan Crockett MD - 06/29/2021 1:45 PM QUALITY CONTROL MICROBIOLOGY SUPERVISOR Associated Problem(s): Atypical chest pain Troponins are negative. Continue to follow with dry cans back tender as outpatient. ITY CONTROL MICROBIOLOGY SUPERVISOR * Assessment & Plan Note - Megan Crockett MD - 06/29/2021 1:43 PM QUALITY CONTROL MICROBIOLOGY SUPERVISOR Associated Problem(s): Constipation Pt's history and CT suggests this; no suggestion of bowel obstruction. Continue bowel regimen and monitor for stools. Avoid narcotics; pt reports she is not on any narcotics at home. ITY CONTROL MICROBIOLOGY SUPERVISOR ITY CONTROL MICROBIOLOGY SUPERVISOR * Subjective & Objective - Megan Crockett MD - 06/29/2021 1:12 PM QUALITY CONTROL MICROBIOLOGY SUPERVISOR History and Physical Division of [facility] Medicine Name: Madison Weinberg Today: June 29, 2021 : 1965 Age: 55 y.o. female Subjective Ms. Weinberg is a 55 y.o. female with chief complaint of abdominal pain. HPI: Pt is a 55 yo with multiple prior abdominal surgeries who comes in with abdominal pain, nausea and anorexia for the last week. Pt reports not having bowel movement in that time period. Just prior to that, she overcame 3 weeks of diarrhea which she was told was likely antibiotic induced. No stool studies were done. She was reportedly on Bactrim for mesh infection. CT A/P with contrast shows some stool but no other abnormalities. Additionally, she slipped and had a mechanical fall in her home yesterday, hurting her right hip. She notes severe pain there. Xray of the hip and knee done in the ED was neg for any fractures. Pt is currently not having any chest pain but she had some yesterday for which she took 3 NTG but this did not help. She follows a outpatient dry cans back tender. Pt reports having a stress test last year but she does not know the result of this. She had neg troponins in the ED and EKG did not show any acute ST/T wave abnormalities. Pt reports adhering to her outpatient bowel regimen. On ROS, she reported intermittent fever up to 101 and nasal congestion which she attributes to allergies. Past Medical History: Diagnosis Date ??? Anemia ??? Anxiety disorder ??? Colon obstruction (CMS/HCC) (HCC) ??? DVT (deep venous thrombosis) (CMS/HCC) (HCC) 11/2018 ??? Endometriosis Endometriosis-21 times ??? Hyperlipidemia ??? PONV (postoperative nausea and vomiting) IV medications help ??? Trigeminal neuralgia Past Surgical History: Procedure Laterality Date ??? ABDOMINAL SURGERY surgery x 5 for bowel obstruction and subsequent infection ??? APPENDECTOMY 2006 Appendectomy ??? BOWEL RESECTION colon blockage: partial bowel resection ??? BREAST BIOPSY 2000 Breast biopsy ??? HYSTERECTOMY 1994 Hysterectomy ??? LAPAROSCOPIC ENDOMETRIOSIS FULGURATION Endometriosis-21 times: lap/laser ??? US GUIDED THORACENTESIS N/A 02/14/2021 No current facility-administered medications on file prior to encounter. Current Outpatient Medications on File Prior to Encounter Medication Sig ??? isosorbide mononitrate ER (IMDUR) 30 mg 24 hr tablet isosorbide mononitrate ER 30 mg tablet,extended release 24 hr ??? nitroglycerin (NITROSTAT) 0.4 mg SL tablet nitroglycerin 0.4 mg sublingual tablet ??? alendronate (FOSAMAX) 70 mg tablet Take 70 mg by mouth every 7 days Take in the morning with a full glass of water, on an empty stomach, and do not take anything else by mouth or lie down for thenext 30 min. saturday ??? aspirin 81 mg enteric coated tablet Take 81 mg by mouth every other day ??? atorvastatin (LIPITOR) 20 mg tablet Take 20 mg by mouth nightly ??? calcium carbonate-vitamin D3 (CALTRATE 600 + D) 1500 mg (600 mg elemental) - 400 units per tablet Take 1 tablet by mouth 2 (two) times a day ??? clotrimazole-betamethasone (LOTRISONE) cream Apply 1 application topically daily ??? cyanocobalamin (Vitamin B-12) 1,000 mcg tablet Take 1,000 mcg by mouth daily ??? cyclobenzaprine (FLEXERIL) 10 mg tablet Take 10 mg by mouth 2 (two) times a day ??? dicyclomine (BENTYL) 10 mg capsule Take 10 mg by mouth 3 (three) times a day ??? docusate sodium (COLACE) 100 mg capsule Take 100 mg by mouth daily ??? ergocalciferol (VITAMIN D) 50,000 unit capsule Take 50,000 Units by mouth once a week SATURDAY ??? fluticasone propionate (FLONASE) 50 mcg/actuation nasal spray Administer 2 sprays into each nostril daily ??? folic acid (FOLVITE) 1 mg tablet Take 1 mg by mouth daily with dinner ??? levETIRAcetam (KEPPRA) 250 mg tablet Take 250 mg by mouth 2 (two) times a day ??? loratadine 10 mg capsule Take 10 mg by mouth daily ??? OLANZapine (ZyPREXA ZYDIS) 10 mg disintegrating tablet Take 1 tablet (10 mg total) by mouth nightly ??? OLANZapine (ZyPREXA ZYDIS) 5 mg disintegrating tablet Take 1 tablet (5 mg total) by mouth daily ??? ondansetron ODT (ZOFRAN-ODT) 4 mg disintegrating tablet Take 1 tablet (4 mg total) by mouth every 6 (six) hours as needed for nausea or vomiting ??? pantoprazole DR (PROTONIX) 40 mg EC tablet Take 40 mg by mouth every morning ??? polyethylene glycol (MIRALAX) 17 gram packet Take 17 g by mouth daily with lunch ??? prazosin (MINIPRESS) 1 mg capsule Take 1 mg by mouth nightly Allergies Allergen Reactions ??? Codeine Hives ??? Duloxetine Mental status changes Reaction: CONFUSION, ??? Gabapentin Mental status changes ??? Paxil [Paroxetine] Mental status changes ??? Wellbutrin [Bupropion] Mental status changes ??? Zoloft [Sertraline] Mental status changes Social History Tobacco Use ??? Smoking status: Former Smoker Packs/day: 2.00 Years: 12.00 Pack years: 24.00 Types: E-cigarettes, Cigarettes Start date: 1981 Quit date: 03/19/2008 Years since quittin.2 ??? Smokeless tobacco: Never Used Substance Use Topics ??? Alcohol use: Yes Comment: rarely Family History Problem Relation Age of Onset ??? Diabetes Mother Diabetes mellitus; ??? Heart disease Mother 71 Heart disease; ??? Hypertension Mother Hypertension; ??? Diabetes Father Diabetes mellitus; ??? Heart disease Father 76 Heart disease; ??? Hypertension Father Hypertension; ??? Stroke Father Stroke; ??? Breast cancer Sister Cancer -breast; ??? Prostate cancer Brother Cancer -prostate; ??? Diabetes Brother Diabetes mellitus; ??? Breast cancer Maternal Grandmother Cancer -breast; ??? Diabetes Maternal Grandmother Diabetes mellitus; ??? Hypertension Maternal Grandmother Hypertension; ??? Heart disease Maternal Grandmother Heart disease; ??? Anesthesia problems Neg Hx Family History reviewed and non-contributory. Review of Systems All other systems were reviewed and are negative except for that which is listed in the History of Present Illness. Objective Vitals: 24hr Min/Max: Temp Min: 36.6 ??C Max: 36.6 ??C Pulse Min: 61 Max: 117 BP Min: 81/63 Max: 146/92 Resp Min: 11 Max: 32 SpO2 Min: 90 % Max: 100 % Most Recent Vitals: Vitals: 06/29/21 1230 BP: 146/92 Pulse: 80 Resp: 24 Temp: SpO2: 99% Intake/Output Summary (Last 24 hours) at 06/29/2021 1313 Last data filed at 06/29/2021 0011 Gross per 24 hour Intake 500 ml Output -- Net 500 ml Physical Exam Vitals reviewed. HENT: Head: Normocephalic and atraumatic. Mouth/Throat: Mouth: Mucous membranes are moist. Pharynx: Oropharynx is clear. Eyes: Conjunctiva/sclera: Conjunctivae normal. Cardiovascular: Rate and Rhythm: Normal rate and regular rhythm. Heart sounds: Normal heart sounds. Pulmonary: Effort: Pulmonary effort is normal. Breath sounds: Normal breath sounds. Abdominal: General: Bowel sounds are normal. Palpations: Abdomen is soft. Comments: Tender to palpation diffusely except for the LLQ. Musculoskeletal: Cervical back: Normal range of motion and neck supple. Comments: Pain with compression over the hip joint and complains of pain with internal or external rotation Lymphadenopathy: Cervical: No cervical adenopathy. Skin: General: Skin is warm and dry. Comments: No bruising over the right hip Neurological: General: No focal deficit present. Mental Status: She is alert. Psychiatric: Mood and Affect: Mood is anxious. Lab/Diagnostic Review: Recent Results (from the past 36 hour(s)) CBC with auto differential Collection Time: 06/28/21 11:02 PM Result Value Ref Range WBC 7.8 3.8 - 9.9 K/cumm Hgb 13.2 11.9 - 15.5 g/dL Hct 40.0 35.6 - 45.5 % Plt 372 150 - 400 K/cumm MPV 9.6 9.1 - 12.3 fL RBC 4.52 3.90 - 5.20 M/cumm MCV 88.5 81.3 - 96.4 fL MCH 29.2 27.1 - 33.3 pg MCHC 33.0 32.3 - 35.7 g/dL RDW CV 13.3 11.1 - 14.9 % RDW SD 43.4 35.7 - 48.1 fL NRBC abs 0.00 0.00 - 0.01 K/cumm Lipase Collection Time: 06/28/21 11:02 PM Result Value Ref Range Lipase 23 10 - 99 Units/L Comprehensive metabolic panel Collection Time: 06/28/21 11:02 PM Result Value Ref Range Sodium 139 135 - 145 mmol/L Potassium, pl 3.4 3.3 - 4.9 mmol/L Chloride 100 97 - 110 mmol/L CO2 27 22 - 32 mmol/L Anion gap 12 2 - 15 mmol/L BUN 10 8 - 25 mg/dL Creatinine 1.09 0.60 - 1.10 mg/dL Glucose 69 (L) 70 - 199 mg/dL Calcium 9.5 8.5 - 10.3 mg/dL Bilirubin, total 0.2 0.1 - 1.2 mg/dL Protein, pl 7.7 6.5 - 8.5 g/dL Albumin 4.4 3.5 - 5.0 g/dL Alk phos 103 40 - 130 Units/L ALT 18 7 - 45 Units/L AST 25 10 - 45 Units/L Type and screen Collection Time: 06/28/21 11:02 PM Result Value Ref Range ABO Rh A Negative Andreina, indirect Negative Urinalysis reflex to microscopic and culture Urine Collection Time: 06/28/21 11:02 PM Specimen: Urine Result Value Ref Range Color, ur Yellow Yellow Clarity, ur Cloudy (A) Clear Specific gravity, ur 1.027 1.003 - 1.030 pH, urine 6 Protein, ur ql 1+ (A) Negative Glucose, ur ql Negative Negative Ketones, ur Negative Negative Bilirubin, ur Negative Negative Blood, ur Negative Negative Urobilinogen, ur <2.0 <2.0 mg/dL Nitrite, ur Negative Negative Leukocyte esterase, ur 3+ (A) Negative UA reflex comment Reflex to microscopic UA will be performed. Troponin I high-sensitivity series (baseline, 2hr, 4hr, 6hr) Collection Time: 06/28/21 11:02 PM Result Value Ref Range Trop I hs <4 <=17 ng/L Differential, auto Collection Time: 06/28/21 11:02 PM Result Value Ref Range Neutrophil abs 5.0 1.7 - 6.5 K/cumm Imm gran abs 0.0 0.0 - 0.1 K/cumm Lymphocyte abs 2.1 0.8 - 3.3 K/cumm Monocyte abs 0.6 0.2 - 0.8 K/cumm Eosinophil abs 0.1 0.0 - 0.5 K/cumm Basophil abs 0.1 0.0 - 0.1 K/cumm Neutrophil pct 63.8 % Imm gran pct 0.4 % Lymphocyte pct 26.3 % Monocyte pct 7.8 % Eosinophil pct 1.1 % Basophil pct 0.6 % Urinalysis, microscopic only Collection Time: 06/28/21 11:02 PM Result Value Ref Range WBC, ur 11-20 (A) 0 - 5 /HPF RBC, ur 0-2 0 - 2 /HPF Epithelial cells, squamous, ur 1-5 0 - 5 /HPF Bacteria, ur 2+ (A) Mucous, ur Present (A) Amorphous crystals, ur Trace (A) Hyaline casts, ur 21-50 (A) 0 - 10 /LPF Culture Reflex Comment Reflex to urine culture will be performed. eGFR Collection Time: 06/28/21 11:02 PM Result Value Ref Range eGFR 57 (L) 90 - 130 mL/min/1.73 m2 POC Blood Gas and Chemistries, Arterial - Collection Time: 06/28/21 11:08 PM Result Value Ref Range Lactate, POC 1.9 0.7 - 2.2 mmol/L POCT creatinine Collection Time: 06/28/21 11:15 PM Result Value Ref Range Creatinine POC 1.1 0.6 - 1.1 mg/dL Troponin I high-sensitivity 2-hour Collection Time: 06/29/21 1:36 AM Result Value Ref Range Trop I hs <4 <=17 ng/L Trop I hs delta 0 ng/L Trop I hs interp Insignificant POCT glucose Collection Time: 06/29/21 1:59 AM Result Value Ref Range Glucose, POC 107 70 - 199 mg/dL COVID-19 Coronavirus RNA Nasopharyngeal Collection Time: 06/29/21 5:57 AM Specimen: Nasopharyngeal Result Value Ref Range COVID-19 RNA Negative Negative First COVID-19 test? No Employeed in healthcare? No status? No Group care resident? No Hospitalized? Yes Is patient in ICU? No Symptomatic as defined by CDC? No POCT glucose Collection Time: 06/29/21 6:28 AM Result Value Ref Range Glucose, POC 79 70 - 199 mg/dL I have reviewed the laboratory results. Imaging Results: XR Knee Right 1 or 2 Views Narrative: EXAMINATION: XR FEMUR RIGHT 2 OR MORE VIEWS, XR KNEE RIGHT 1 OR 2 VIEWS HISTORY: Fall with thigh and knee pain. COMPARISON: Concurrent CT. 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 No acute fracture. Normal alignment. Mild right hip osteoarthritis. Right knee: No acute fracture. Normal alignment. Normal joint spaces. Impression: No acute osseous abnormality involving the right femur or right knee. Dictated by: Bon Burgos M.D. The radiology attending physician has personally reviewed this study, and had reviewed and/or edited this written report and agrees with it. Electronically signed by: Omar Kim M.D. XR Femur Right 2 or More Views Narrative: EXAMINATION: XR FEMUR RIGHT 2 OR MORE VIEWS, XR KNEE RIGHT 1 OR 2 VIEWS HISTORY: Fall with thigh and knee pain. COMPARISON: Concurrent CT. 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 No acute fracture. Normal alignment. Mild right hip osteoarthritis. Right knee: No acute fracture. Normal alignment. Normal joint spaces. Impression: No acute osseous abnormality involving the right femur or right knee. Dictated by: Bon Burgos M.D. The radiology attending physician has personally reviewed this study, and had reviewed and/or edited this written report and agrees with it. Electronically signed by: Omar Kim M.D. CT Abdomen Pelvis W Contrast Narrative: EXAMINATION: Computed tomography of the abdomen and pelvis with intravenous contrast HISTORY: Abdominal pain. No bowel movement for the past 5 days. TECHNIQUE: Transaxial computed tomographic images of the abdomen and pelvis were obtained with intravenous contrast according to the standard protocol after the uneventful administration of 95 mL Opti-Ray 350 intravenous contrast. COMPARISON: 02/12/2021. FINDINGS: Images of the lower chest show the heart to be normal in size without pericardial effusion. Mild peripheral reticulation is seen at the lung bases, which are otherwise clear. The liver and gallbladder are normal. Spleen is normal. Pancreas is normal. Adrenal glands normal. Kidneys normal. There are some nonobstructing stone seen in the left kidney. There is some stool seen in the colon. There is no evidence though of bowel obstruction. There are postsurgical changes of left hemicolectomy. There is no suspicious lymphadenopathy in the abdomen or pelvis. Urinary bladder is normal. Uterus is surgically absent. There is pelvic floor relaxation. There is at least moderate atherosclerosis of the abdominal aorta. No aggressive osseous lesion or acute fracture. Fat necrosis in the posterior soft tissues. Impression: Moderate stool burden seen in the colon without otherwise acute abnormality in the abdomen or pelvis. Dictated by: Bon Burgos M.D. The radiology attending physician has personally reviewed this study, and had reviewed and/or edited this written report and agrees with it. Electronically signed by: Omar Kim M.D. ECG 12 lead Luis Felipe Kelsey MD 06/29/2021 2:49 AM ECG 12 lead Date/Time: 06/29/2021 2:48 AM Performed by: Luis Felipe Kelsey MD Authorized by: Dulce Young MD Rate: ECG rate: 71 ECG rate assessment: normal Rhythm: Rhythm: sinus rhythm Ectopy: Ectopy: PAC QRS: QRS axis: Normal QRS intervals: Normal Conduction: Conduction: normal ST segments: ST segments: Normal T waves: T waves: non-specific Q waves: Q wave noted on lead: insig q. Other findings: Other findings: prolonged qTc interval Previous ECG: Previous ECG: Compared to current Date of previous ECG: tonight. Interpretation: Interpretation: No acute injury pattern Recommended Follow-up: Recommended follow up: further workup in the ED I have independently reviewed and interpreted labs and EKG. ITY CONTROL MICROBIOLOGY SUPERVISOR * Plan of Care - Angelique Barillas RN - 06/29/2021 11:17 AM CST Clinical status re/evaluated by ER case managment. Pt remains in ER as a boarder,still appropriate for OBS level of care. Pt waiting bed assignment medicine. ITY CONTROL MICROBIOLOGY SUPERVISOR * ED Re-evaluation Note - Sarita Lawson MD - 06/29/2021 9:06 AM QUALITY CONTROL MICROBIOLOGY SUPERVISOR ED Re-evaluation TRANSITION OF CARE: I, Sarita Lawson MD, am taking signout from Dr. Young (Resident). I have reviewed all pertinent vital signs, allergies, and history available in the chart. Summary: 55 y.o. female w/ PMH trigeminal neuralgia, HLD, DVT, anxiety, depression, PTSD, chronic abdominal pain, and endometriosis who presents with chest pain, abdominal pain, and constipation. Laboratory studies reassuring. CT abdomen pelvis without explanation of patient's abdominal pain. CT scan did show moderate stool burden. She has received 2 enemas. She has received multiple medications for symptom control including Pepcid, Zofran, IV fluids, droperidol, morphine, GI cocktail, and oxycodone. Patient still has refractory abdominal pain. Plan for admission to medicine for symptom control. Pending: Bed assignment Dispo: Admit ED Course as of 06/29/21 1510 Time: 06/28 [id number] Comment: Seen by cardiology in [facility] 1. The patient had normal stress myocardial perfusion imaging at [facility] in January 2021. 2. We discussed optimizing medical therapy, redoing the stress test with exercise to determine exercise capacity and therefore do better risk stratification or going ahead with coronary angiography. 3. The patient opted for medical therapy which is very reasonable. The patient has been started on isosorbide mononitrate. Sublingual nitroglycerin as needed has also been added to her therapy. If she is intolerant of nitrates we will consider starting her on ranolazine or proceeding with cardiac catheterization given that stress testing was normal and she remains symptomatic. By: Dulce Young MD Time: 06/29 31 Comment: IMPRESSION: Moderate stool burden seen in the colon without otherwise acute abnormality in the abdomen or pelvis. By: Dulce Young MD Time: 06/29 243 Comment: Reports very minimal comfort. Still complaining of abdominal pain. Will plan to give GI cocktail, famotidine, Zofran. Denies any urinary symptoms. Does have history of urinary tract infections, but none recently. By: Dulce Young MD Time: 06/29 264 Comment: On EKG, insig q waves inferior present on EKG in January By: Luis Felipe Kelsey MD Time: 06/29 6973 Comment: Patient received an enema 1 hour ago. Still has not passed any stool. Still complaining ofabdominal pain. Will admit for observation, further symptomatic treatment and constipation treatment. By: Dulce Young MD Time: 06/29 3123 Comment: Signed out to medicine By: Dulce Young MD Time: 06/29 717 Comment: ATTENDING TRANSITION OF CARE I, Osvadlo Taylor MD, am taking signout from Dr Kelsey (Attending). I have reviewed all pertinent vital signs allergies, and history available in the chart. Summary: 55 y.o. female admit obs for intractable abd and chest pain. Endometriosis, lots of abd surgery, hx of DVT. Presented for abd pain worse for a fe days, constipation, no gas pass for 5 days not better with OTC meds. CHest pain started yesterday NTG x 3 with mild improvement, and fall at home with right hip pain. Pending: X rays neg, CT abd/ pelvis no obs but lots of stool. Got enema x 2, pain meds, GI cocktail, fluids, UA +/- no sxs. Seen by cards 06/12/21 [facility] they recommended OP cath. Dispo: admit a still with abd pain post 12 hours. By: Osvaldo Taylor MD Grass, Emily Elizabeth, MD Resident 06/29/21 1510 ITY CONTROL MICROBIOLOGY SUPERVISOR * ED Observation Provider Note - Luis Felipe Kelsey MD - 06/29/2021 4:24 AM CST ED Observation Admission Note Reason for observation: abdominal pain, constipation. Overall impression, plan, and disposition: abdominal pain. Plan for continued observation: pain medication, bowel regimen. HPI Chief Complaint Patient presents with ??? Chest Pain ??? Abdominal Pain 55 y/o with history of multiple abdominal surgeries with abd pain. Had diarrhea and then followed by 5 days of constipation and now pain. No urinary symptoms or fever. Abd CT without obstruction. Also had CP but is following with dry cans back tender who she saw approx 2 weeks ago. EKG okay and 2 trops ok.Fell on hip but xray is okay. Patient History: Patient Active Problem List Diagnosis Date Noted ??? Acute hypoxemic respiratory failure (CMS/HCC) (HCC) 02/08/2021 ??? Constipation ??? Elevated troponin 01/14/2021 ??? Chest pressure 01/14/2021 ??? Hepatitis 01/14/2021 ??? Tylenol overdose 01/14/2021 ??? JHOANA (acute kidney injury) (CMS/HCC) (HCC) 01/14/2021 ??? NSAID overdose 01/14/2021 ??? Bandemia 01/14/2021 ??? High anion gap metabolic acidosis 01/14/2021 ??? Hypokalemia 01/14/2021 ??? Right lower quadrant abdominal pain 01/14/2021 ??? Suicidal ideation 01/14/2021 ??? Frailty 01/14/2021 ??? Severe protein-calorie malnutrition (CMS/HCC) (HCC) 01/14/2021 ??? 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 History of DVT (deep vein thrombosis) 04/23/2020 ??? Abdominal pain 04/11/2020 ??? Endometriosis 12/26/2013 ??? Multiple-type hyperlipidemia 12/26/2013 ??? Anxiety state 12/26/2013 ??? Acute cerebrovascular insufficiency 12/26/2013 Past Medical History: Diagnosis Date ??? Anemia ??? Anxiety disorder ??? Colon obstruction (CMS/HCC) (HCC) ??? DVT (deep venous thrombosis) (CMS/HCC) (HCC) 11/2018 ??? Endometriosis Endometriosis-21 times ??? Hyperlipidemia ??? PONV (postoperative nausea and vomiting) IV medications help ??? Trigeminal neuralgia Past Surgical History: Procedure Laterality Date ??? ABDOMINAL SURGERY surgery x 5 for bowel obstruction and subsequent infection ??? APPENDECTOMY 2006 Appendectomy ??? BOWEL RESECTION colon blockage: partial bowel resection ??? BREAST BIOPSY 2001 Breast biopsy ??? HYSTERECTOMY 1995 Hysterectomy ??? LAPAROSCOPIC ENDOMETRIOSIS FULGURATION Endometriosis-21 times: lap/laser ??? US GUIDED THORACENTESIS N/A 02/14/2021 Family History Problem Relation Age of Onset ??? Diabetes Mother Diabetes mellitus; ??? Heart disease Mother 71 Heart disease; ??? Hypertension Mother Hypertension; ??? Diabetes Father Diabetes mellitus; ??? Heart disease Father 76 Heart disease; ??? Hypertension Father Hypertension; ??? Stroke Father Stroke; ??? Breast cancer Sister Cancer -breast; ??? Prostate cancer Brother Cancer -prostate; ??? Diabetes Brother Diabetes mellitus; ??? Breast cancer Maternal Grandmother Cancer -breast; ??? Diabetes Maternal Grandmother Diabetes mellitus; ??? Hypertension Maternal Grandmother Hypertension; ??? Heart disease Maternal Grandmother Heart disease; ??? Anesthesia problems Neg Hx Social History Tobacco Use ??? Smoking status: Former Smoker Packs/day: 2.00 Years: 12.00 Pack years: 24.00 Types: E-cigarettes, Cigarettes Start date: 1981 Quit date: 03/19/2008 Years since quittin.2 ??? Smokeless tobacco: Never Used Vaping Use ??? Vaping Use: Former ??? Quit date: 12/11/2019 ??? Substances: Nicotine ??? Devices: Refillable tank Substance Use Topics ??? Alcohol use: Yes Comment: rarely ??? Drug use: Yes Frequency: 7.0 times per week Types: Marijuana Comment: medical for pain and anxiety Social History Social History Narrative ??? Not on file Review of Systems Review of Systems All other systems reviewed and are negative. Physical Exam Physical Exam Vitals and nursing note reviewed. Constitutional: Appearance: She is well-developed. HENT: Head: Normocephalic and atraumatic. Eyes: Conjunctiva/sclera: Conjunctivae normal. Pupils: Pupils are equal, round, and reactive to light. Cardiovascular: Rate and Rhythm: Normal rate and regular rhythm. Heart sounds: Normal heart sounds. Pulmonary: Effort: Pulmonary effort is normal. Breath sounds: Normal breath sounds. Abdominal: General: Bowel sounds are normal. There is no distension. Palpations: Abdomen is soft. Tenderness: There is abdominal tenderness. There is no guarding or rebound. Musculoskeletal: General: Normal range of motion. Cervical back: Normal range of motion and neck supple. Skin: General: Skin is warm and dry. Capillary Refill: Capillary refill takes less than 2 seconds. Neurological: Mental Status: She is alert and oriented to person, place, and time. Cranial Nerves: No cranial nerve deficit. Coordination: Coordination normal. Psychiatric: Behavior: Behavior normal. MDM Medical Decision Making Differential Diagnosis or Management Options: 55 y/o with abd pain and nausea. Attempting symptom control. Will try increasing bowel regimen to see if has bowel movement and that improves symptoms. Otherwise may need to be admitted. Reviewed previous records: From clinic visits ITY CONTROL MICROBIOLOGY SUPERVISOR * ED Procedure Note - Luis Felipe Kelsey MD - 06/29/2021 2:48 AM QUALITY CONTROL MICROBIOLOGY SUPERVISOR Associated Order(s): ECG 12 lead Procedure ECG 12 lead Date/Time: 06/29/2021 2:48 AM Performed by: uLis Felipe Kelsey MD Authorized by: Dulce Young MD Rate: ECG rate: 71 ECG rate assessment: normal Rhythm: Rhythm: sinus rhythm Ectopy: Ectopy: PAC QRS: QRS axis: Normal QRS intervals: Normal Conduction: Conduction: normal ST segments: ST segments: Normal T waves: T waves: non-specific Q waves: Q wave noted on lead: insig q. Other findings: Other findings: prolonged qTc interval Previous ECG: Previous ECG: Compared to current Date of previous ECG: tonight. Interpretation: Interpretation: No acute injury pattern Recommended Follow-up: Recommended follow up: further workup in the ED Luis Felipe Kelsey MD 06/29/21 0249 ITY CONTROL MICROBIOLOGY SUPERVISOR * ED Re-evaluation Note - Dulce Young MD - 06/28/2021 10:51 PM QUALITY CONTROL MICROBIOLOGY SUPERVISOR ED Re-evaluation TRANSITION OF CARE: IDulce MD, am taking signout from Dr Sol (Resident) under supervision of Dr. Kelsey (Attending). I have reviewed all pertinent vital signs, allergies, and history available in the chart. Summary: 55 y.o. female Multiple abdominal surgeries, most recently, MESH infection not too long ago, hx DVT, aspirin, here for episode of chest pain that occurred earlier today. Chest pain free currently. Took 3 nitros with improvement in pain. Worsened abdominal pain, bloating, constipation. No BM in 5 days. increaseBR of miralax, senna,milk. No flactulanece. Prior hx of SBO. Tender diffusely on exam. Also reported a fall yesterday at home and slipped at home on right hip. Tenderness on thigh , knee sympomatic control Pending: workup and sx control Dispo: likely admission ED Course as of 06/29/21 0732 Time: 06/28 8301 Comment: Seen by cardiology in [facility] 1. The patient had normal stress myocardial perfusion imaging at [facility] in January 2021. 2. We discussed optimizing medical therapy, redoing the stress test with exercise to determine exercise capacity and therefore do better risk stratification or going ahead with coronary angiography. 3. The patient opted for medical therapy which is very reasonable. The patient has been started on isosorbide mononitrate. Sublingual nitroglycerin as needed has also been added to her therapy. If she is intolerant of nitrates we will consider starting her on ranolazine or proceeding with cardiac catheterization given that stress testing was normal and she remains symptomatic. By: Dulce Young MD Time: 06/29 31 Comment: IMPRESSION: Moderate stool burden seen in the colon without otherwise acute abnormality in the abdomen or pelvis. By: Dulce Young MD Time: 06/29 8133 Comment: Reports very minimal comfort. Still complaining of abdominal pain. Will plan to give GI cocktail, famotidine, Zofran. Denies any urinary symptoms. Does have history of urinary tract infections, but none recently. By: Dulce Young MD Time: 06/29 249 Comment: On EKG, insig q waves inferior present on EKG in January By: Luis Felipe Kelsey MD Time: 06/29 7328 Comment: Patient received an enema 1 hour ago. Still has not passed any stool. Still complaining ofabdominal pain. Will admit for observation, further symptomatic treatment and constipation treatment. By: Dulce Young MD Time: 06/29 613 Comment: Signed out to medicine By: Dulce Young MD Time: 06/29 4804 Comment: ATTENDING TRANSITION OF CARE I, Osvaldo Taylor MD, am taking signout from Dr Kelsey (Attending). I have reviewed all pertinent vital signs allergies, and history available in the chart. Summary: 55 y.o. female admit obs for intractable abd and chest pain. Endometriosis, lots of abd surgery, hx of DVT. Presented for abd pain worse for a fe days, constipation, no gas pass for 5 days not better with OTC meds. CHest pain started yesterday NTG x 3 with mild improvement, and fall at home with right hip pain. Pending: X rays neg, CT abd/ pelvis no obs but lots of stool. Got enema x 2, pain meds, GI cocktail, fluids, UA +/- no sxs. Seen by cards 06/12/21 [facility] they recommended OP cath. Dispo: admit a still with abd pain post 12 hours. By: Osvaldo Taylor MD Safa, Rawan Ahmad, MD Resident 06/29/21 0732 ITY CONTROL MICROBIOLOGY SUPERVISOR * ED Procedure Note - Luciano Payton MD - 06/28/2021 7:41 PM CSTAssociated Order(s): ECG 12 lead Procedure ECG 12 lead Date/Time: 06/28/2021 7:41 PM Performed by: Luciano Payton MD Authorized by: Luciano Payton MD Rate: ECG rate: 103 ECG rate assessment: tachycardic Rhythm: Rhythm: sinus tachycardia Ectopy: Ectopy: PAC QRS: QRS axis: Normal QRS intervals: Normal Conduction: Conduction: normal ST segments: ST segments: Normal T waves: T waves: inverted Inverted: V3 Previous ECG: Previous ECG: Compared to current Date of previous EC02/08/2021 Comparison ECG info: New T-wave inversion in lead V3, new PACs Interpretation: Interpretation: abnormal Recommended Follow-up: Recommended follow up: further workup in the ED Luciano Payton MD 06/28/21 194 ITY CONTROL MICROBIOLOGY SUPERVISOR documented in this encounter Plan of Treatment Not on file documented as of this encounter Procedures Procedure Name Priority Date/Time Associated Diagnosis Comments EGFR STAT 07/02/2021 9:21 AM QUALITY CONTROL MICROBIOLOGY SUPERVISOR DIFFERENTIAL AUTO STAT 07/02/2021 9:2 1 AM QUALITY CONTROL MICROBIOLOGY SUPERVISOR CBC WITH AUTO DIFFERENTIAL STAT 07/02/2021 9:21 AM QUALITY CONTROL MICROBIOLOGY SUPERVISOR BLOOD CULTURE STAT 07/02/2021 9:21 AM QUALITY CONTROL MICROBIOLOGY SUPERVISOR COMPREHENSIVE METABOLIC PANEL STAT 07/02/2021 9:21 AM QUALITY CONTROL MICROBIOLOGY SUPERVISOR BLOOD CULTURE STAT 07/01/2021 1:32 PM QUALITY CONTROL MICROBIOLOGY SUPERVISOR EGFR Routine 07/01/2021 5:08 AM QUALITY CONTROL MICROBIOLOGY SUPERVISOR DIFFERENTIAL AUTO Routine 07/01/2021 5:0 8 AM QUALITY CONTROL MICROBIOLOGY SUPERVISOR CBC WITH AUTO DIFFERENTIAL Routine 07/01/2021 5:08 AM QUALITY CONTROL MICROBIOLOGY SUPERVISOR COMPREHENSIVE METABOLIC PANEL Routine 07/01/2021 5:08 AM QUALITY CONTROL MICROBIOLOGY SUPERVISOR XR SPINE LUMBAR 2 OR 3 VIEWS IP Routine 06/30/2021 3:41 PM QUALITY CONTROL MICROBIOLOGY SUPERVISOR POCT GLUCOSE DEVICE Routine 06/29/2021 6 :28 AM QUALITY CONTROL MICROBIOLOGY SUPERVISOR COVID-19 CORONAVIRUS RNA Routine 06/29/2021 5:57 AM QUALITY CONTROL MICROBIOLOGY SUPERVISOR ECG 12-LEAD Routine 06/29/2021 2:48 AM QUALITY CONTROL MICROBIOLOGY SUPERVISOR POCT GLUCOSE DEVICE Routine 06/29/2021 1 :59 AM QUALITY CONTROL MICROBIOLOGY SUPERVISOR TROPONIN I HIGH-SENSITIVITY 2-HOUR Timed 06/29/2021 1:36 AM QUALITY CONTROL MICROBIOLOGY SUPERVISOR XR KNEE RIGHT 1 OR 2 VIEWS ED 06/29/2021 12:01 AM QUALITY CONTROL MICROBIOLOGY SUPERVISOR XR FEMUR RIGHT 2 OR MORE VIEWS ED 06/29/2021 12:00 AM QUALITY CONTROL MICROBIOLOGY SUPERVISOR CT ABDOMEN PELVIS W CONTRAST ED 06/28/2021 11:50 PM QUALITY CONTROL MICROBIOLOGY SUPERVISOR POCT CREATININE - DEVICE Routine 06/28/2021 11:15 PM QUALITY CONTROL MICROBIOLOGY SUPERVISOR POC BLOOD GAS AND CHEMISTRIES, ARTERIAL Routine 06/28/2021 11:08 PM QUALITY CONTROL MICROBIOLOGY SUPERVISOR TROPONIN I HIGH-SENSITIVITY SERIES (BASELINE, 2HR, 4HR, 6HR) STAT 06/28/2021 11:02 PM QUALITY CONTROL MICROBIOLOGY SUPERVISOR EGFR STAT 06/28/2021 11:02 PM QUALITY CONTROL MICROBIOLOGY SUPERVISOR DIFFERENTIAL AUTO STAT 06/28/2021 11: 02 PM QUALITY CONTROL MICROBIOLOGY SUPERVISOR URINALYSIS AND REFLEX TO MICROSCOPIC AND CULTURE STAT 06/28/2021 11:02 PM QUALITY CONTROL MICROBIOLOGY SUPERVISOR CBC WITH AUTO DIFFERENTIAL STAT 06/28/2021 11:02 PM QUALITY CONTROL MICROBIOLOGY SUPERVISOR URINALYSIS, MICROSCOPIC ONLY STAT 06/28/2021 11:02 PM QUALITY CONTROL MICROBIOLOGY SUPERVISOR TYPE AND SCREEN STAT 06/28/2021 11:02 PM QUALITY CONTROL MICROBIOLOGY SUPERVISOR URINE CULTURE STAT 06/28/2021 11:02 PM QUALITY CONTROL MICROBIOLOGY SUPERVISOR LIPASE STAT 06/28/2021 11:02 PM QUALITY CONTROL MICROBIOLOGY SUPERVISOR COMPREHENSIVE METABOLIC PANEL STAT 06/28/2021 11:02 PM QUALITY CONTROL MICROBIOLOGY SUPERVISOR ECG 12-LEAD STAT 06/28/2021 7:41 PM QUALITY CONTROL MICROBIOLOGY SUPERVISOR XR CHEST PA LATERAL 2 VIEWS ED 06/28/2021 7:06 PM QUALITY CONTROL MICROBIOLOGY SUPERVISOR documented in this encounter Results * (ABNORMAL) eGFR (07/02/2021 9:21 AM QUALITY CONTROL MICROBIOLOGY SUPERVISOR) Pathologist [facility] eGFR 56(L) 90 - 130 mL/min/1.7 3 m2 [facility] Comment: Interpretive Data Reference Interval Normal ?>/= 90 mL/min/1.73m2 Mildly decreased* ? 60 - 89 mL/min/1.73m2 Mildly to moderately decreased ?45 - 59 mL/min/1.73m2 Moderately to severely decreased ??30 - 44 mL/min/1.73m2 Severely decreased ?15 - 29 mL/min/1.73m2 Kidney Failure ?< 15 ??mL/min/1.73m2 *Relative to young adult level Estimated glomerular filtration rate is determined by the CKD-EPI equation recommended by the National Kidney Foundation (KDIGO 2012 Clinical Practice Guideline for the Evaluation and Management of Chronic Kidney Disease. Kidney Intnl Suppl Aug 2012;3:1). The CKD-EPI equation should not be used for patients with unstable renal function and has not been validated in children and those over 70. Current interpretive data was last reviewed 2020 Blood 07/02/2021 9:21 AM QUALITY CONTROL MICROBIOLOGY SUPERVISOR 07/02/2021 9:35 AM QUALITY CONTROL MICROBIOLOGY SUPERVISOR us Megan Crockett MD LAB BLOOD ORDERABLES Final R esult Performing Organization Address City/State/[facility] Co de Phone Number [facility] Department [place] [address] * (ABNORMAL) Differential, auto (07/02/2021 9:21 AM QUALITY CONTROL MICROBIOLOGY SUPERVISOR) Neutrophil abs 6.7(H) 1.7 - 6.5 K/cumm [facility] Imm gran abs 0.0 0.0 - 0.1 K/cumm [facility] Lymphocyte abs 1.0 0.8 - 3.3 K/cumm [facility] Monocyte abs 0.4 0.2 - 0.8 K/cumm [facility] Eosinophil abs 0.1 0.0 - 0.5 K/cumm [facility] Basophil abs 0.0 0.0 - 0.1 K/cumm [facility] Neutrophil pct 82.5 % [facility] Comment: Interpretive Data Percent cell count reference ranges are not reported, since discordance with absolute values may lead to misinterpretation of CBC data. Current Interpretive Data was last revised on 2017. Imm gran pct 0.1 % [facility] Comment: Interpretive Data Percent cell count reference ranges are not reported, since discordance with absolute values may lead to misinterpretation of CBC data. Current Interpretive Data was last revised on 2017. Lymphocyte pct 12.1 % [facility] Comment: Interpretive Data Percent cell count reference ranges are not reported, since discordance with absolute values may lead to misinterpretation of CBC data. Current Interpretive Data was last revised on 2017. Monocyte pct 4.3 % [facility] Comment: Interpretive Data Percent cell count reference ranges are not reported, since discordance with absolute values may lead to misinterpretation of CBC data. Current Interpretive Data was last revised on 2017. Eosinophil pct 0.6 % [facility] Comment: Interpretive Data Percent cell count reference ranges are not reported, since discordance with absolute values may lead to misinterpretation of CBC data. Current Interpretive Data was last revised on 2017. Basophil pct 0.4 % [facility] Comment: Interpretive Data Percent cell count reference ranges are not reported, since discordance with absolute values may lead to misinterpretation of CBC data. Current Interpretive Data was last revised on 2017. Blood 07/02/2021 9:21 AM QUALITY CONTROL MICROBIOLOGY SUPERVISOR 07/02/2021 9:35 AM QUALITY CONTROL MICROBIOLOGY SUPERVISOR Megan Crockett MD LAB BLOOD ORDERABLES Final R esult [facility] Department [place] [address] * Blood culture Blood (07/02/2021 9:21 AM QUALITY CONTROL MICROBIOLOGY SUPERVISOR) Report Final Report: No growth [facility] Blood 07/02/2021 9:21 AM QUALITY CONTROL MICROBIOLOGY SUPERVISOR 07/02/2021 9:55 AM QUALITY CONTROL MICROBIOLOGY SUPERVISOR Narrative [facility] - 07/06/2021 12:00 PM QUALITY CONTROL MICROBIOLOGY SUPERVISOR 1. ?Blood cultures are incubated for 4 days on a continuously monitored blood culture system. The first report of a negative culture is issued within 24 hours of receipt of the specimen in the laboratory. 2. ?Positive culture results are reported as soon as they are detected. 3. ?The most important factor for detection of microbes in the setting of bloodstream infection is the volume of blood submitted for culture. Failure to collect an optimal blood volume can result in false negative blood cultures. For pediatric patients, the recommended blood volume to collect is 1 mL of blood per year of patient age (up to 20 mL) per blood culture set. For adult patients, 20 mL of blood, divided equally between aerobic and anaerobic blood culture bottles, is recommended for each blood culture set. 4. ?For blood cultures with Gram-positive cocci, a rapid molecular test for organism identification may be performed using the [employer] Gram-Positive Blood Culture Assay. This assay detects microbial DNA in positive blood culture broth via hybridization of target DNA to capture oligonucleotides on a microarray. This assay has been cleared by the [place] Food and Drug Administration and its performance characteristics have been verified by the [facility]. 5. ?For questions about this culture, contact the Microbiology Laboratory at [phone]. Interpretive data was last revised on 2019. Megan Crockett MD LAB MICROBIOLOGY - GENERAL O RDERABLES Final Result [facility] Department [place] [address] * CBC with auto differential (07/02/2021 9:21 AM QUALITY CONTROL MICROBIOLOGY SUPERVISOR) WBC 8.1 3.8 - 9.9 K/cumm [facility] Hgb 13.2 11.9 - 15.5 g/dL [facility] Hct 40.8 35.6 - 45.5 % [facility] Plt 320 150 - 400 K/cumm [facility] MPV 9.8 9.1 - 12.3 fL [facility] RBC 4.57 3.90 - 5.20 M/cumm [facility] MCV 89.3 81.3 - 96.4 fL [facility] MCH 28.9 27.1 - 33.3 pg [facility] MCHC 32.4 32.3 - 35.7 g/dL [facility] RDW CV 13.2 11.1 - 14.9 % [facility] RDW SD 43.1 35.7 - 48.1 fL [facility] NRBC abs 0.00 0.00 - 0.01 K/cumm [facility] Blood 07/02/2021 9:21 AM QUALITY CONTROL MICROBIOLOGY SUPERVISOR 07/02/2021 9:35 AM QUALITY CONTROL MICROBIOLOGY SUPERVISOR us Megan Crockett MD LAB BLOOD ORDERABLES Final R esult [facility] Department [place] [address] * (ABNORMAL) Comprehensive metabolic panel (07/02/2021 9:21 AM QUALITY CONTROL MICROBIOLOGY SUPERVISOR) Sodium 141 135 - 145 mmol/L [facility] Potassium, pl 4.2 3.3 - 4.9 mmol/L [facility] Chloride 105 97 - 110 mmol/L [facility] CO2 26 22 - 32 mmol/L [facility] Anion gap 10 2 - 15 mmol/L [facility] BUN 19 8 - 25 mg/dL [facility] Creatinine 1.11(H) 0.60 - 1.10 mg/dL [facility] Glucose 103 70 - 199 mg/dL [facility] Comment: Interpretive Data Fasting glucose >/= 126 mg/dl is diagnostic for diabetes. ?? Fasting is defined as no caloric intake for at least 8 hours. Fasting glucose between 100 mg/dl to 125 mg/dl is diagnostic of prediabetes. In a patient with classic symptoms of hyperglycemia or hyperglycemic crisis, a random glucose >/= 200 mg/dl is diagnostic for diabetes. In the absence of unequivocal hyperglycemia, results should be confirmed by repeat testing. The classification and Diagnosis of Diabetes Diabetes Care 2017;40 (Suppl. 1):S11. Current interpretive data was last revised 2017. Calcium 9.3 8.5 - 10.3 mg/dL [facility] Bilirubin, total 0.2 0.1 - 1.2 mg/dL [facility] Protein, pl 7.1 6.5 - 8.5 g/dL [facility] Albumin 4.1 3.5 - 5.0 g/dL [facility] Alk phos 101 40 - 130 Units/L [facility] ALT 40 7 - 45 Units/L [facility] AST 39 10 - 45 Units/L [facility] Blood 07/02/2021 9:21 AM QUALITY CONTROL MICROBIOLOGY SUPERVISOR 07/02/2021 9:35 AM QUALITY CONTROL MICROBIOLOGY SUPERVISOR Megan Crockett MD LAB BLOOD ORDERABLES Final R esult [facility] Department [place] [address] * Blood culture Blood Hand, right (07/01/2021 1:32 PM QUALITY CONTROL MICROBIOLOGY SUPERVISOR) Report Final Report: No growth [facility] Blood (Hand, right) 07/01/2021 1:32 PM QUALITY CONTROL MICROBIOLOGY SUPERVISOR 07/01/2021 1:47 PM QUALITY CONTROL MICROBIOLOGY SUPERVISOR Narrative [facility] - 07/05/2021 4:00 PM QUALITY CONTROL MICROBIOLOGY SUPERVISOR 1. ?Blood cultures are incubated for 4 days on a continuously monitored blood culture system. The first report of a negative culture is issued within 24 hours of receipt of the specimen in the laboratory. 2. ?Positive culture results are reported as soon as they are detected. 3. ?The most important factor for detection of microbes in the setting of bloodstream infection is the volume of blood submitted for culture. Failure to collect an optimal blood volume can result in false negative blood cultures. For pediatric patients, the recommended blood volume to collect is 1 mL of blood per year of patient age (up to 20 mL) per blood culture set. For adult patients, 20 mL of blood, divided equally between aerobic and anaerobic blood culture bottles, is recommended for each blood culture set. 4. ?For blood cultures with Gram-positive cocci, a rapid molecular test for organism identification may be performed using the [employer] Gram-Positive Blood Culture Assay. This assay detects microbial DNA in positive blood culture broth via hybridization of target DNA to capture oligonucleotides on a microarray. This assay has been cleared by the [place] Food and Drug Administration and its performance characteristics have been verified by the [facility]. 5. ?For questions about this culture, contact the Microbiology Laboratory at [phone]. Interpretive data was last revised on 2019. us Megan Crockett MD LAB MICROBIOLOGY - GENERAL O RDERABLES Final Result Performing Organization Address [facility] Co de Phone Number [facility] Department [place] [address] * (ABNORMAL) eGFR (07/01/2021 5:08 AM QUALITY CONTROL MICROBIOLOGY SUPERVISOR) eGFR 58(L) 90 - 130 mL/min/1.7 3 m2 [facility] Comment: Interpretive Data Reference Interval Normal ?>/= 90 mL/min/1.73m2 Mildly decreased* ? 60 - 89 mL/min/1.73m2 Mildly to moderately decreased ?45 - 59 mL/min/1.73m2 Moderately to severely decreased ??30 - 44 mL/min/1.73m2 Severely decreased ?15 - 29 mL/min/1.73m2 Kidney Failure ?< 15 ??mL/min/1.73m2 *Relative to young adult level Estimated glomerular filtration rate is determined by the CKD-EPI equation recommended by the National Kidney Foundation (KDIGO 2012 Clinical Practice Guideline for the Evaluation and Management of Chronic Kidney Disease. Kidney Intnl Suppl Aug 2012;3:1). The CKD-EPI equation should not be used for patients with unstable renal function and has not been validated in children and those over 70. Current interpretive data was last reviewed 2020 Blood 07/01/2021 5:08 AM QUALITY CONTROL MICROBIOLOGY SUPERVISOR 07/01/2021 5:23 AM QUALITY CONTROL MICROBIOLOGY SUPERVISOR us Megan Crockett MD LAB BLOOD ORDERABLES Final R esult Performing Organization Address [facility] Co de Phone Number JAILYN SHABAZZ Tammy [facility] Department [place] [address] * Differential, auto (07/01/2021 5:08 AM QUALITY CONTROL MICROBIOLOGY SUPERVISOR) Neutrophil abs 2.5 1.7 - 6.5 K/cumm [facility] Imm gran abs 0.0 0.0 - 0.1 K/cumm [facility] Lymphocyte abs 0.9 0.8 - 3.3 K/cumm [facility] Monocyte abs 0.3 0.2 - 0.8 K/cumm [facility] Eosinophil abs 0.1 0.0 - 0.5 K/cumm [facility] Basophil abs 0.0 0.0 - 0.1 K/cumm [facility] Neutrophil pct 65.3 % [facility] Comment: Interpretive Data Percent cell count reference ranges are not reported, since discordance with absolute values may lead to misinterpretation of CBC data. Current Interpretive Data was last revised on 2017. Imm gran pct 0.3 % [facility] Comment: Interpretive Data Percent cell count reference ranges are not reported, since discordance with absolute values may lead to misinterpretation of CBC data. Current Interpretive Data was last revised on 2017. Lymphocyte pct 24.7 % [facility] Comment: Interpretive Data Percent cell count reference ranges are not reported, since discordance with absolute values may lead to misinterpretation of CBC data. Current Interpretive Data was last revised on 2017. Monocyte pct 7.9 % [facility] Comment: Interpretive Data Percent cell count reference ranges are not reported, since discordance with absolute values may lead to misinterpretation of CBC data. Current Interpretive Data was last revised on 2017. Eosinophil pct 1.3 % [facility] Comment: Interpretive Data Percent cell count reference ranges are not reported, since discordance with absolute values may lead to misinterpretation of CBC data. Current Interpretive Data was last revised on 2017. Basophil pct 0.5 % [facility] Comment: Interpretive Data Percent cell count reference ranges are not reported, since discordance with absolute values may lead to misinterpretation of CBC data. Current Interpretive Data was last revised on 2017. Blood 07/01/2021 5:08 AM QUALITY CONTROL MICROBIOLOGY SUPERVISOR 07/01/2021 5:23 AM QUALITY CONTROL MICROBIOLOGY SUPERVISOR Megan Crockett MD LAB BLOOD ORDERABLES Final R esult [facility] Department [place] [address] * (ABNORMAL) CBC with auto differential (07/01/2021 5:08 AM QUALITY CONTROL MICROBIOLOGY SUPERVISOR) [facility] WBC 3.8 3.8 - 9.9 K/cumm [facility] Hgb 9.9(L) 11.9 - 15.5 g/dL [facility] Comment:Discrepancy noted. n o clot detected mary shaffer rn Hct 30.5(L) 35.6 - 45.5 % [facility] Plt 256 150 - 400 K/cumm [facility] MPV 10.0 9.1 - 12.3 fL [facility] RBC 3.40(L) 3.90 - 5.20 M/cumm [facility] MCV 89.7 81.3 - 96.4 fL [facility] MCH 29.1 27.1 - 33.3 pg [facility] MCHC 32.5 32.3 - 35.7 g/dL [facility] RDW CV 13.2 11.1 - 14.9 % [facility] RDW SD 43.4 35.7 - 48.1 fL [facility] NRBC abs 0.00 0.00 - 0.01 K/cumm [facility] Blood 07/01/2021 5:08 AM QUALITY CONTROL MICROBIOLOGY SUPERVISOR 07/01/2021 5:23 AM QUALITY CONTROL MICROBIOLOGY SUPERVISOR Megan Crockett MD LAB BLOOD ORDERABLES Final R esult [facility] Department [place] [address] * (ABNORMAL) Comprehensive metabolic panel (07/01/2021 5:08 AM QUALITY CONTROL MICROBIOLOGY SUPERVISOR) [facility] Sodium 140 135 - 145 mmol/L [facility] Potassium, pl 3.9 3.3 - 4.9 mmol/L [facility] Chloride 104 97 - 110 mmol/L [facility] CO2 29 22 - 32 mmol/L [facility] Anion gap 7 2 - 15 mmol/L [facility] BUN 13 8 - 25 mg/dL [facility] Creatinine 1.08 0.60 - 1.10 mg/dL [facility] Glucose 102 70 - 199 mg/dL [facility] Comment: Interpretive Data Fasting glucose >/= 126 mg/dl is diagnostic for diabetes. ?? Fasting is defined as no caloric intake for at least 8 hours. Fasting glucose between 100 mg/dl to 125 mg/dl is diagnostic of prediabetes. In a patient with classic symptoms of hyperglycemia or hyperglycemic crisis, a random glucose >/= 200 mg/dl is diagnostic for diabetes. In the absence of unequivocal hyperglycemia, results should be confirmed by repeat testing. The classification and Diagnosis of Diabetes Diabetes Care 2017;40 (Suppl. 1):S11. Current interpretive data was last revised 2017. Calcium 8.6 8.5 - 10.3 mg/dL [facility] Bilirubin, total 0.2 0.1 - 1.2 mg/dL [facility] Protein, pl 5.7(L) 6.5 - 8.5 g/dL [facility] Albumin 3.3(L) 3.5 - 5.0 g/dL [facility] Alk phos 78 40 - 130 Units/L [facility] ALT 20 7 - 45 Units/L [facility] AST 27 10 - 45 Units/L [facility] Blood 07/01/2021 5:08 AM QUALITY CONTROL MICROBIOLOGY SUPERVISOR 07/01/2021 5:23 AM QUALITY CONTROL MICROBIOLOGY SUPERVISOR us Megan Crockett MD LAB BLOOD ORDERABLES Final R esult [facility] [place] [address] * XR Spine Lumbar 2 or 3 Views (06/30/2021 3:41 PM QUALITY CONTROL MICROBIOLOGY SUPERVISOR) Anatomical Region Laterality Modality Spine N/A Computed Radiogr aphy 06/30/2021 4:54 PM QUALITY CONTROL MICROBIOLOGY SUPERVISOR Impressions 06/30/2021 5:31 PM QUALITY CONTROL MICROBIOLOGY SUPERVISOR Mild degenerative changes of the lumbar spine, most pronounced at L5-S1. Dictated by: Chencho Patel MD ??PHD The radiology attending physician has personally reviewed this study, and had reviewed and/or edited this written report and agrees with it. Electronically signed by: Tamanna Sosa MD Narrative 06/30/2021 5:31 PM QUALITY CONTROL MICROBIOLOGY SUPERVISOR EXAMINATION: XR SPINE LUMBAR 2 OR 3 VIEWS HISTORY: Low back pain. FINDINGS: 2 views of the lumbar spine are submitted for interpretation without comparison to prior. There is mild dextrocurvature of the lumbar spine. There are no compression fractures. There is mild intervertebral disc height loss, most pronounced at L5-S1. There is mild facet osteoarthritis of the lower lumbar spine. There is aortic atherosclerosis. Procedure Note Renetta Sosa MD - 06/30/2021 EXAMINATION: XR SPINE LUMBAR 2 OR 3 VIEWS HISTORY: Low back pain. FINDINGS: 2 views of the lumbar spine are submitted for interpretation without comparison to prior. There is mild dextrocurvature of the lumbar spine. There are no compression fractures. There is mild intervertebral disc height loss, most pronounced at L5-S1. There is mild facet osteoarthritis of the lower lumbar spine. There is aortic atherosclerosis. IMPRESSION: Mild degenerative changes of the lumbar spine, most pronounced at L5-S1. Dictated by: Chencho Patel MD PHD The radiology attending physician has personally reviewed this study, and had reviewed and/or edited this written report and agrees with it. Electronically signed by: Tamanna Sosa MD us Megan Crockett MD IMG XR PROCEDURES Final Resu lt * POCT glucose (06/29/2021 6:28 AM QUALITY CONTROL MICROBIOLOGY SUPERVISOR) Glucose, POC 79 70 - 199 mg/dL JAILYN SHABAZZ Blood 06/29/2021 6:28 AM QUALITY CONTROL MICROBIOLOGY SUPERVISOR 06/29/2021 6:28 AM QUALITY CONTROL MICROBIOLOGY SUPERVISOR us Genet Escobedo MD LAB POCT ORDERABLES - DEV ICE Final Result JAILYN SHABAZZH [facility] Department [place] [address] * COVID-19 Coronavirus RNA Nasopharyngeal (06/29/2021 5:57 AM QUALITY CONTROL MICROBIOLOGY SUPERVISOR) COVID-19 RNA Negative Negative JAILYN [facility] Comment: Interpretive data: Synonyms for this test include: PCR and NAAT . ??This test is performed using the [employer] Xpert Xpress assay. This is a real-time RT-PCR test intended for the qualitative detection of nucleic acid from the SARS-CoV-2. This assay has been reviewed by the FDA for Emergency Use Authorization (EUA). The performance characteristics have been verified by the performing laboratory. Results must be considered in the clinical context and a negative result does not rule out infection. Interpretive data last revised September 15, 2020. First COVID-19 test? No [facility] Employeed in healthcare? No [facility] status? No [facility] Group care resident? No [facility] Hospitalized? Yes [facility] Is patient in ICU? No [facility] Symptomatic as defined by CDC? No [facility] Nasopharyngeal 06/29/2021 5: 57 AM QUALITY CONTROL MICROBIOLOGY SUPERVISOR 06/29/2021 6:05 AM QUALITY CONTROL MICROBIOLOGY SUPERVISOR Narrative [facility] - 06/29/2021 7:13 AM QUALITY CONTROL MICROBIOLOGY SUPERVISOR What is the reason for testing?->Bed placement or semi-private room Dulce Young MD LAB MICROBIOLOGY - GENERAL O RDERABLES Final Result [facility] Tammy [facility] Department [place] [address] * ECG 12-LEAD (06/29/2021 2:48 AM QUALITY CONTROL MICROBIOLOGY SUPERVISOR) Narrative [facility] - 06/29/2021 2:48 AM QUALITY CONTROL MICROBIOLOGY SUPERVISOR Luis Felipe Kelsey MD ? 06/29/2021 ??2:49 AM ECG 12 lead Date/Time: 06/29/2021 2:48 AM Performed by: Luis Felipe Kelsey MD Authorized by: Dulce Young MD Rate: ??ECG rate: ??71 ??ECG rate assessment: normal ?? Rhythm: ??Rhythm: sinus rhythm ?? Ectopy: ??Ectopy: PAC ?? QRS: ??QRS axis: ??Normal ??QRS intervals: ??Normal Conduction: ??Conduction: normal ?? ST segments: ??ST segments: ??Normal T waves: ??T waves: non-specific ?? Q waves: ??Q wave noted on lead: insig q. Other findings: ??Other findings: prolonged qTc interval ?? Previous ECG: ??Previous ECG: ??Compared to current ??Date of previous ECG: tonight. Interpretation: ??Interpretation: No acute injury pattern ?? Recommended Follow-up: ??Recommended follow up: further workup in the ED ?? Procedure Note Luis Felipe Kelsey MD - 06/29/2021 2:48 AM CST Procedure ECG 12 lead Date/Time: 06/29/2021 2:48 AM Performed by: Luis Felipe Kelsey MD Authorized by: Dulce Young MD Rate: ECG rate: 71 ECG rate assessment: normal Rhythm: Rhythm: sinus rhythm Ectopy: Ectopy: PAC QRS: QRS axis: Normal QRS intervals: Normal Conduction: Conduction: normal ST segments: ST segments: Normal T waves: T waves: non-specific Q waves: Q wave noted on lead: insig q. Other findings: Other findings: prolonged qTc interval Previous ECG: Previous ECG: Compared to current Date of previous ECG: tonight. Interpretation: Interpretation: No acute injury pattern Recommended Follow-up: Recommended follow up: further workup in the ED Luis Felipe Kelsey MD 06/29/21 0249 Dulce Young MD ECG ORDERABLES Final Result [facility] * POCT glucose (06/29/2021 1:59 AM QUALITY CONTROL MICROBIOLOGY SUPERVISOR) Glucose, POC 107 70 - 199 mg/dL JAILYN [facility] Blood 06/29/2021 1:59 AM QUALITY CONTROL MICROBIOLOGY SUPERVISOR 06/29/2021 1:59 AM QUALITY CONTROL MICROBIOLOGY SUPERVISOR Notinfile Unknown LAB POCT ORDERABLES - DEVICE F inal Result Performing Organization Address [facility] de Phone Number JAILYN [facility] [place] [address] * Troponin I high-sensitivity 2-hour (06/29/2021 1:36 AM QUALITY CONTROL MICROBIOLOGY SUPERVISOR) Trop I hs <4 <=17 ng/L [facility] Comment: Interpretive Data For further hscTnI resources including the diagnostic algorithm and an aid in interpretation, copy and paste this link: [email or web address] Current Interpretive Data last revised 2020. Trop I hs delta 0 ng/L [facility] Trop I hs interp Insignificant [facility] Blood 06/29/2021 1:36 AM QUALITY CONTROL MICROBIOLOGY SUPERVISOR 06/29/2021 1:54 AM QUALITY CONTROL MICROBIOLOGY SUPERVISOR Luciano Payton MD LAB BLOOD ORDERABLES Final Resul t Performing Organization Address [facility] de Phone Number [facility] Department [place] [address] * XR Knee Right 1 or 2 Views (06/29/2021 12:01 AM QUALITY CONTROL MICROBIOLOGY SUPERVISOR) Anatomical Region Laterality Modality Lower Extremities, Knee Right Computed Radiography 06/29/2021 12:1 2 AM QUALITY CONTROL MICROBIOLOGY SUPERVISOR Impressions 06/29/2021 8:34 AM QUALITY CONTROL MICROBIOLOGY SUPERVISOR No acute osseous abnormality involving the right femur or right knee. Dictated by: Bon Burgos M.D. The radiology attending physician has personally reviewed this study, and had reviewed and/or edited this written report and agrees with it. Electronically signed by: Omar Kim M.D. Narrative 06/29/2021 8:34 AM QUALITY CONTROL MICROBIOLOGY SUPERVISOR EXAMINATION: XR FEMUR RIGHT 2 OR MORE VIEWS, XR KNEE RIGHT 1 OR 2 VIEWS HISTORY: Fall with thigh and knee pain. COMPARISON: Concurrent CT. 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 No acute fracture. Normal alignment. Mild right hip osteoarthritis. Right knee: No acute fracture. Normal alignment. Normal joint spaces. Procedure Note Omar Kim MD - 06/29/2021 EXAMINATION: XR FEMUR RIGHT 2 OR MORE VIEWS, XR KNEE RIGHT 1 OR 2 VIEWS HISTORY: Fall with thigh and knee pain. COMPARISON: Concurrent CT. 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 No acute fracture. Normal alignment. Mild right hip osteoarthritis. Right knee: No acute fracture. Normal alignment. Normal joint spaces. IMPRESSION: No acute osseous abnormality involving the right femur or right knee. Dictated by: Bon Burgos M.D. The radiology attending physician has personally reviewed this study, and had reviewed and/or edited this written report and agrees with it. Electronically signed by: Omar Kim M.D. Williams Sol MD IMG XR PROCEDURES Final R esult * XR Femur Right 2 or More Views (06/29/2021 12:00 AM QUALITY CONTROL MICROBIOLOGY SUPERVISOR) Anatomical Region Laterality Modality Lower Extremities, Thigh, Femur Right Computed Radiography 06/29/2021 12:1 2 AM QUALITY CONTROL MICROBIOLOGY SUPERVISOR Impressions 06/29/2021 8:34 AM QUALITY CONTROL MICROBIOLOGY SUPERVISOR No acute osseous abnormality involving the right femur or right knee. Dictated by: Bon Burgos M.D. The radiology attending physician has personally reviewed this study, and had reviewed and/or edited this written report and agrees with it. Electronically signed by: Omar Kim M.D. Narrative 06/29/2021 8:34 AM QUALITY CONTROL MICROBIOLOGY SUPERVISOR EXAMINATION: XR FEMUR RIGHT 2 OR MORE VIEWS, XR KNEE RIGHT 1 OR 2 VIEWS HISTORY: Fall with thigh and knee pain. COMPARISON: Concurrent CT. 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 No acute fracture. Normal alignment. Mild right hip osteoarthritis. Right knee: No acute fracture. Normal alignment. Normal joint spaces. Procedure Note Omar Kim MD - 06/29/2021 EXAMINATION: XR FEMUR RIGHT 2 OR MORE VIEWS, XR KNEE RIGHT 1 OR 2 VIEWS HISTORY: Fall with thigh and knee pain. COMPARISON: Concurrent CT. 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 No acute fracture. Normal alignment. Mild right hip osteoarthritis. Right knee: No acute fracture. Normal alignment. Normal joint spaces. IMPRESSION: No acute osseous abnormality involving the right femur or right knee. Dictated by: Bon Burgos M.D. The radiology attending physician has personally reviewed this study, and had reviewed and/or edited this written report and agrees with it. Electronically signed by: Omar Kim M.D. us Williams Sol MD IMG XR PROCEDURES Final R esult * CT Abdomen Pelvis W Contrast (06/28/2021 11:50 PM QUALITY CONTROL MICROBIOLOGY SUPERVISOR) Anatomical Region Laterality Modality Body N/A Computed Tomogra phy 06/29/2021 12:0 6 AM QUALITY CONTROL MICROBIOLOGY SUPERVISOR Impressions 06/29/2021 7:54 AM QUALITY CONTROL MICROBIOLOGY SUPERVISOR Moderate stool burden seen in the colon without otherwise acute abnormality in the abdomen or pelvis. Dictated by: Bon Burgos M.D. The radiology attending physician has personally reviewed this study, and had reviewed and/or edited this written report and agrees with it. Electronically signed by: Omar Kim M.D. Narrative 06/29/2021 7:54 AM QUALITY CONTROL MICROBIOLOGY SUPERVISOR EXAMINATION: ??Computed tomography of the abdomen and pelvis with intravenous contrast HISTORY: Abdominal pain. No bowel movement for the past 5 days. TECHNIQUE: ??Transaxial computed tomographic images of the abdomen and pelvis were obtained with intravenous contrast according to the standard protocol after the uneventful administration of 95 mL Opti-Ray 350 intravenous contrast. COMPARISON: 02/12/2021. FINDINGS: Images of the lower chest show the heart to be normal in size without pericardial effusion. Mild peripheral reticulation is seen at the lung bases, which are otherwise clear. The liver and gallbladder are normal. Spleen is normal. Pancreas is normal. Adrenal glands normal. Kidneys normal. There are some nonobstructing stone seen in the left kidney. There is some stool seen in the colon. There is no evidence though of bowel obstruction. There are postsurgical changes of left hemicolectomy. There is no suspicious lymphadenopathy in the abdomen or pelvis. Urinary bladder is normal. Uterus is surgically absent. ??There is pelvic floor relaxation. There is at least moderate atherosclerosis of the abdominal aorta. No aggressive osseous lesion or acute fracture. Fat necrosis in the posterior soft tissues. Procedure Note Omar Kim MD - 06/29/2021 EXAMINATION: Computed tomography of the abdomen and pelvis with intravenous contrast HISTORY: Abdominal pain. No bowel movement for the past 5 days. TECHNIQUE: Transaxial computed tomographic images of the abdomen and pelvis were obtained with intravenous contrast according to the standard protocol after the uneventful administration of 95 mL Opti-Ray 350 intravenous contrast. COMPARISON: 02/12/2021. FINDINGS: Images of the lower chest show the heart to be normal in size without pericardial effusion. Mild peripheral reticulation is seen at the lung bases, which are otherwise clear. The liver and gallbladder are normal. Spleen is normal. Pancreas is normal. Adrenal glands normal. Kidneys normal. There are some nonobstructing stone seen in the left kidney. There is some stool seen in the colon. There is no evidence though of bowel obstruction. There are postsurgical changes of left hemicolectomy. There is no suspicious lymphadenopathy in the abdomen or pelvis. Urinary bladder is normal. Uterus is surgically absent. There is pelvic floor relaxation. There is at least moderate atherosclerosis of the abdominal aorta. No aggressive osseous lesion or acute fracture. Fat necrosis in the posterior soft tissues. IMPRESSION: Moderate stool burden seen in the colon without otherwise acute abnormality in the abdomen or pelvis. Dictated by: Bon Burgos M.D. The radiology attending physician has personally reviewed this study, and had reviewed and/or edited this written report and agrees with it. Electronically signed by: Omar Kim M.D. Williams Sol MD IM CT PROCEDURES Final R esult * POCT creatinine (06/28/2021 11:15 PM QUALITY CONTROL MICROBIOLOGY SUPERVISOR) Creatinine POC 1.1 0.6 - 1.1 mg/dL [facility] Blood 06/28/2021 11:1 5 PM QUALITY CONTROL MICROBIOLOGY SUPERVISOR 06/28/2021 11:15 PM QUALITY CONTROL MICROBIOLOGY SUPERVISOR Notinfile Unknown LAB POCT ORDERABLES - DEVICE F inal Result Performing Organization Address City/[facility]/ZIP Co de Phone Number [facility] Department [place] [address] * POC Blood Gas and Chemistries, Arterial - (06/28/2021 11:08 PM QUALITY CONTROL MICROBIOLOGY SUPERVISOR) Pathologist [facility] Lactate, POC 1.9 0.7 - 2.2 mmol/L [facility] Blood 06/28/2021 11:0 8 PM QUALITY CONTROL MICROBIOLOGY SUPERVISOR 06/28/2021 11:08 PM QUALITY CONTROL MICROBIOLOGY SUPERVISOR us Notinfile Unknown LAB POCT ORDERABLES - DEVICE F inal Result Performing Organization Address [facility] de Phone Number [facility] Department [place] [address] * Urine culture Urine (06/28/2021 11:02 PM QUALITY CONTROL MICROBIOLOGY SUPERVISOR) [facility] Report Final Report: Less than 100,000 colonies/mL (clinically insignificant growth based on current clinical standards) [facility] Organism (CLINICALLY INSIGNIFICANT GROWTH [facility] Urine 06/28/2021 11:0 2 PM QUALITY CONTROL MICROBIOLOGY SUPERVISOR 06/29/2021 12:33 AM QUALITY CONTROL MICROBIOLOGY SUPERVISOR Narrative [facility] - 06/30/2021 7:53 AM QUALITY CONTROL MICROBIOLOGY SUPERVISOR Urine culture reflexed based upon urinalysis results. Testing performed by [facility] ([phone]) us Luciano Payton MD LAB MICROBIOLOGY - GENERAL ORDER RASHAUN Final Result Performing Organization Address [facility] Co de Phone Number [facility] [place] [address] * (ABNORMAL) eGFR (06/28/2021 11:02 PM QUALITY CONTROL MICROBIOLOGY SUPERVISOR) Pathologist [facility] eGFR 57(L) 90 - 130 mL/min/1.7 3 m2 [facility] Comment: Interpretive Data Reference Interval Normal ?>/= 90 mL/min/1.73m2 Mildly decreased* ? 60 - 89 mL/min/1.73m2 Mildly to moderately decreased ?45 - 59 mL/min/1.73m2 Moderately to severely decreased ??30 - 44 mL/min/1.73m2 Severely decreased ?15 - 29 mL/min/1.73m2 Kidney Failure ?< 15 ??mL/min/1.73m2 *Relative to young adult level Estimated glomerular filtration rate is determined by the CKD-EPI equation recommended by the National Kidney Foundation (KDIGO 2012 Clinical Practice Guideline for the Evaluation and Management of Chronic Kidney Disease. Kidney Intnl Suppl Aug 2012;3:1). The CKD-EPI equation should not be used for patients with unstable renal function and has not been validated in children and those over 70. Current interpretive data was last reviewed 2020 Blood 06/28/2021 11:0 2 PM QUALITY CONTROL MICROBIOLOGY SUPERVISOR 06/28/2021 11:23 PM QUALITY CONTROL MICROBIOLOGY SUPERVISOR us Luciano Payton MD LAB BLOOD ORDERABLES Final Resul t [facility] Department [place] [address] * (ABNORMAL) Urinalysis, microscopic only (06/28/2021 11:02 PM QUALITY CONTROL MICROBIOLOGY SUPERVISOR) WBC, ur 11-20(A) 0 - 5 /HPF [facility] RBC, ur 0-2 0 - 2 /HPF [facility] Epithelial cells, squamous, ur 1-5 0 - 5 /HPF [facility] Bacteria, ur 2+(A) [facility] Mucous, ur Present(A) [facility] Amorphous crystals, ur Trace(A) [facility] Hyaline casts, ur 21-50(A) 0 - 10 /LPF [facility] Culture Reflex Comment Reflex to urine culture will be performed. [facility] Urine 06/28/2021 11:0 2 PM QUALITY CONTROL MICROBIOLOGY SUPERVISOR 06/28/2021 11:13 PM QUALITY CONTROL MICROBIOLOGY SUPERVISOR us Luciano Payton MD LAB URINE ORDERABLES Final Resul t [facility] One [facility] Department [place] [address] * Differential, auto (06/28/2021 11:02 PM QUALITY CONTROL MICROBIOLOGY SUPERVISOR) Neutrophil abs 5.0 1.7 - 6.5 K/cumm [facility] Imm gran abs 0.0 0.0 - 0.1 K/cumm [facility] Lymphocyte abs 2.1 0.8 - 3.3 K/cumm [facility] Monocyte abs 0.6 0.2 - 0.8 K/cumm [facility] Eosinophil abs 0.1 0.0 - 0.5 K/cumm [facility] Basophil abs 0.1 0.0 - 0.1 K/cumm [facility] Neutrophil pct 63.8 % [facility] Comment: Interpretive Data Percent cell count reference ranges are not reported, since discordance with absolute values may lead to misinterpretation of CBC data. Current Interpretive Data was last revised on 2017. Imm gran pct 0.4 % [facility] Comment: Interpretive Data Percent cell count reference ranges are not reported, since discordance with absolute values may lead to misinterpretation of CBC data. Current Interpretive Data was last revised on 2017. Lymphocyte pct 26.3 % [facility] Comment: Interpretive Data Percent cell count reference ranges are not reported, since discordance with absolute values may lead to misinterpretation of CBC data. Current Interpretive Data was last revised on 2017. Monocyte pct 7.8 % [facility] Comment: Interpretive Data Percent cell count reference ranges are not reported, since discordance with absolute values may lead to misinterpretation of CBC data. Current Interpretive Data was last revised on 2017. Eosinophil pct 1.1 % [facility] Comment: Interpretive Data Percent cell count reference ranges are not reported, since discordance with absolute values may lead to misinterpretation of CBC data. Current Interpretive Data was last revised on 2017. Basophil pct 0.6 % [facility] Comment: Interpretive Data Percent cell count reference ranges are not reported, since discordance with absolute values may lead to misinterpretation of CBC data. Current Interpretive Data was last revised on 2017. Blood 06/28/2021 11:0 2 PM QUALITY CONTROL MICROBIOLOGY SUPERVISOR 06/28/2021 11:23 PM QUALITY CONTROL MICROBIOLOGY SUPERVISOR us Luciano Payton MD LAB BLOOD ORDERABLES Final Resul t Performing Organization Address [facility] de Phone Number [facility] [email or web address] [place] [address] * Troponin I high-sensitivity series (baseline, 2hr, 4hr, 6hr) (06/28/2021 11:02 PM QUALITY CONTROL MICROBIOLOGY SUPERVISOR) Trop I hs <4 <=17 ng/L [facility] Comment: Interpretive Data For further hscTnI resources including the diagnostic algorithm and an aid in interpretation, copy and paste this link: [email or web address].org/[email or web address] Current Interpretive Data last revised 2020. Blood 06/28/2021 11:0 2 PM QUALITY CONTROL MICROBIOLOGY SUPERVISOR 06/28/2021 11:23 PM QUALITY CONTROL MICROBIOLOGY SUPERVISOR us Luciano Payton MD LAB BLOOD ORDERABLES Final Resul t Performing Organization Address [facility] Co de Phone Number [facility] [place] [address] * (ABNORMAL) Urinalysis reflex to microscopic and culture Urine (06/28/2021 11:02 PM QUALITY CONTROL MICROBIOLOGY SUPERVISOR) Color, ur Yellow Yellow [facility] Clarity, ur Cloudy(A) Clear [facility] Specific gravity, ur 1.027 1.003 - 1.030 [facility] pH, urine 6 [facility] Protein, ur ql 1+(A) Negative [facility] Glucose, ur ql Negative Negative [facility] Ketones, ur Negative Negative [facility] Bilirubin, ur Negative Negative [facility] Blood, ur Negative Negative [facility] Urobilinogen, ur <2.0 <2.0 mg/dL [facility] Nitrite, ur Negative Negative [facility] Leukocyte esterase, ur 3+(A) Negative [facility] UA reflex comment Reflex to microscopic UA will be performed. [facility] Urine 06/28/2021 11:0 2 PM QUALITY CONTROL MICROBIOLOGY SUPERVISOR 06/28/2021 11:13 PM QUALITY CONTROL MICROBIOLOGY SUPERVISOR Narrative [facility] - 06/28/2021 11:55 PM QUALITY CONTROL MICROBIOLOGY SUPERVISOR ?? Urine pH is affected by diet, medications, systemic acid-base disturbances, and renal tubular function. ??pH may affect urinary stone formation. ??For example, urine pH below 6.0 may help reduce the tendency for calcium phosphate stones and pH greater than 6.0 may reduce the tendency for uric acid stone formation. Source: [employer]. Last revised 08-22-2017 Luis Felipe Kelsey MD LAB MICROBIOLOGY - GENERA L ORDERABLES Final Result [facility] Department [place] [address] * Type and screen (06/28/2021 11:02 PM QUALITY CONTROL MICROBIOLOGY SUPERVISOR) ABO Rh A Negative [facility] Andreina, indirect Negative [facility] Blood (Blood, Venous) 06/28/2021 11:02 PM QUALITY CONTROL MICROBIOLOGY SUPERVISOR 06/28/2021 11:42 PM QUALITY CONTROL MICROBIOLOGY SUPERVISOR Narrative [facility] - 06/29/2021 12:53 AM QUALITY CONTROL MICROBIOLOGY SUPERVISOR Has the patient had Daratumumab or Isatuximab in the past 6 months?->Unknown Luis Felipe Kelsey MD LAB BLOOD BANK TEST ORDER RASHAUN Final Result [facility] Department [place] [address] * (ABNORMAL) Comprehensive metabolic panel (06/28/2021 11:02 PM QUALITY CONTROL MICROBIOLOGY SUPERVISOR) Sodium 139 135 - 145 mmol/L [facility] Potassium, pl 3.4 3.3 - 4.9 mmol/L [facility] Chloride 100 97 - 110 mmol/L [facility] CO2 27 22 - 32 mmol/L [facility] Anion gap 12 2 - 15 mmol/L [facility] BUN 10 8 - 25 mg/dL [facility] Creatinine 1.09 0.60 - 1.10 mg/dL [facility] Glucose 69(L) 70 - 199 mg/dL [facility] Comment: Interpretive Data Fasting glucose >/= 126 mg/dl is diagnostic for diabetes. ?? Fasting is defined as no caloric intake for at least 8 hours. Fasting glucose between 100 mg/dl to 125 mg/dl is diagnostic of prediabetes. In a patient with classic symptoms of hyperglycemia or hyperglycemic crisis, a random glucose >/= 200 mg/dl is diagnostic for diabetes. In the absence of unequivocal hyperglycemia, results should be confirmed by repeat testing. The classification and Diagnosis of Diabetes Diabetes Care 2017;40 (Suppl. 1):S11. Current interpretive data was last revised 2017. Calcium 9.5 8.5 - 10.3 mg/dL [facility] Bilirubin, total 0.2 0.1 - 1.2 mg/dL [facility] Protein, pl 7.7 6.5 - 8.5 g/dL [facility] Albumin 4.4 3.5 - 5.0 g/dL [facility] Alk phos 103 40 - 130 Units/L [facility] ALT 18 7 - 45 Units/L [facility] AST 25 10 - 45 Units/L [facility] Blood 06/28/2021 11:0 2 PM QUALITY CONTROL MICROBIOLOGY SUPERVISOR 06/28/2021 11:23 PM QUALITY CONTROL MICROBIOLOGY SUPERVISOR Luis Felipe Kelsey MD LAB BLOOD ORDERABLES Moraima l Result [facility] Department [place] [address] * Lipase (06/28/2021 11:02 PM QUALITY CONTROL MICROBIOLOGY SUPERVISOR) Pathologist [facility] Lipase 23 10 - 99 Units/L [facility] Blood (Blood, Venous) 06/28/2021 11:02 PM QUALITY CONTROL MICROBIOLOGY SUPERVISOR 06/28/2021 11:23 PM QUALITY CONTROL MICROBIOLOGY SUPERVISOR us Luis Felipe Kelsey MD LAB BLOOD ORDERABLES Moraima l Result Performing Organization Address City/[facility]/ZIP Co de Phone Number [facility] Department [place] [address] * CBC with auto differential (06/28/2021 11:02 PM QUALITY CONTROL MICROBIOLOGY SUPERVISOR) [facility] WBC 7.8 3.8 - 9.9 K/cumm [facility] Hgb 13.2 11.9 - 15.5 g/dL [facility] Hct 40.0 35.6 - 45.5 % [facility] Plt 372 150 - 400 K/cumm [facility] MPV 9.6 9.1 - 12.3 fL [facility] RBC 4.52 3.90 - 5.20 M/cumm [facility] MCV 88.5 81.3 - 96.4 fL [facility] MCH 29.2 27.1 - 33.3 pg [facility] MCHC 33.0 32.3 - 35.7 g/dL [facility] RDW CV 13.3 11.1 - 14.9 % [facility] RDW SD 43.4 35.7 - 48.1 fL [facility] NRBC abs 0.00 0.00 - 0.01 K/cumm [facility] Blood (Blood, Venous) 06/28/2021 11:02 PM QUALITY CONTROL MICROBIOLOGY SUPERVISOR 06/28/2021 11:23 PM QUALITY CONTROL MICROBIOLOGY SUPERVISOR us Luis Felipe Kelsey MD LAB BLOOD ORDERABLES Moraima l Result [facility] Department [place] [address] * (ABNORMAL) ECG 12-LEAD (06/28/2021 7:41 PM QUALITY CONTROL MICROBIOLOGY SUPERVISOR) Narrative [facility] - 06/28/2021 7:41 PM QUALITY CONTROL MICROBIOLOGY SUPERVISOR Luciano Payton MD ? 06/28/2021 ??7:43 PM ECG 12 lead Date/Time: 06/28/2021 7:41 PM Performed by: Luciano Payton MD Authorized by: Luciano Payton MD Rate: ??ECG rate: ??103 ??ECG rate assessment: tachycardic ?? Rhythm: ??Rhythm: sinus tachycardia ?? Ectopy: ??Ectopy: PAC ?? QRS: ??QRS axis: ??Normal ??QRS intervals: ??Normal Conduction: ??Conduction: normal ?? ST segments: ??ST segments: ??Normal T waves: ??T waves: inverted ?Inverted: ??V3 Previous ECG: ??Previous ECG: ??Compared to current ??Date of previous ECG: ??02/08/2021 ??Comparison ECG info: ??New T-wave inversion in lead V3, new PACs Interpretation: ??Interpretation: abnormal ?? Recommended Follow-up: ??Recommended follow up: further workup in the ED ?? Procedure Note Luciano Payton MD - 06/28/2021 7:41 PM CST Procedure ECG 12 lead Date/Time: 06/28/2021 7:41 PM Performed by: Luciano Payton MD Authorized by: Luciano Payton MD Rate: ECG rate: 103 ECG rate assessment: tachycardic Rhythm: Rhythm: sinus tachycardia Ectopy: Ectopy: PAC QRS: QRS axis: Normal QRS intervals: Normal Conduction: Conduction: normal ST segments: ST segments: Normal T waves: T waves: inverted Inverted: V3 Previous ECG: Previous ECG: Compared to current Date of previous EC02/08/2021 Comparison ECG info: New T-wave inversion in lead V3, new PACs Interpretation: Interpretation: abnormal Recommended Follow-up: Recommended follow up: further workup in the ED Luciano Payton MD 06/28/211942 Luis Felipe Kelsey MD ECG ORDERABLES Final Res ult [facility] * XR Chest Pa Lateral 2 Vw (06/28/2021 7:06 PM QUALITY CONTROL MICROBIOLOGY SUPERVISOR) Anatomical Region Laterality Modality Body, Chest N/A Computed Radiogr aphy 06/28/2021 7:16 PM QUALITY CONTROL MICROBIOLOGY SUPERVISOR Impressions 06/28/2021 7:16 PM QUALITY CONTROL MICROBIOLOGY SUPERVISOR Comparison 02/17/2021. Right upper lobe consolidation has resolved. ??Right peripherally inserted central catheter has been removed. ??Bilateral pleural effusions resolved. No new consolidation, pneumothorax, or pleural effusion. ??Suture material overlies the left lung apex. ??Heart size and mediastinal contour stable. Electronically signed by: Rob Colin M.D. Narrative 06/28/2021 7:16 PM QUALITY CONTROL MICROBIOLOGY SUPERVISOR EXAMINATION: 2 view chest radiograph Procedure Note Rob Colin MD - 06/28/2021 EXAMINATION: 2 view chest radiograph IMPRESSION: Comparison 02/17/2021. Right upper lobe consolidation has resolved. Right peripherally inserted central catheter has been removed. Bilateral pleural effusions resolved. No new consolidation, pneumothorax, or pleural effusion. Suture material overlies the left lung apex. Heart size and mediastinal contour stable. Electronically signed by: Rob Colin M.D. 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, unspecified vessel or lesion type (HCC) Fall, initial encounter Atypical chest pain Other chest pain Abdominal pain Abdominal pain, unspecified site Anxiety state Anxiety state, unspecified Fall Unspecified fall documented in this encounter Administered Medications Inactive Administered Medications - up to 3 most recent administrations Medication Order MAR Action Action Date Dose Rate Site acetaminophen (TYLENOL) tablet 1,000 mg 1,000 mg, oral, Every 6 hours scheduled, First dose on [place] 06/29/21 at 0812 Given 07/02/2021 8:08 AM QUALITY CONTROL MICROBIOLOGY SUPERVISOR 1,000 mg Given 07/01/2021 8:14 PM QUALITY CONTROL MICROBIOLOGY SUPERVISOR 1,000 mg Given 07/01/2021 2:48 PM QUALITY CONTROL MICROBIOLOGY SUPERVISOR 1,000 mg al & mag hydroxide simethicone-lidocaine oral suspension mixture 40 mL, oral, Once, On [place] 06/29/21 at 0243, For 1 dose Given 06/29/2021 3:06 AM QUALITY CONTROL MICROBIOLOGY SUPERVISOR 40 mL aspirin enteric coated tablet 81 mg 81 mg, oral, Every other day, First dose on [place] 06/29/21 at 1515, Do not crush, chew, cut, dissolve, open or otherwise manipulate tablet/capsule. Given 07/01/2021 8:20 AM QUALITY CONTROL MICROBIOLOGY SUPERVISOR 81 mg Given 06/29/2021 3:29 PM QUALITY CONTROL MICROBIOLOGY SUPERVISOR 81 mg atorvastatin (LIPITOR) tablet 20 mg 20 mg, oral, Nightly, First dose on [place] 06/29/21 at 2100 Given 07/01/2021 8:14 PM QUALITY CONTROL MICROBIOLOGY SUPERVISOR 20 mg Given 06/30/2021 9:10 PM QUALITY CONTROL MICROBIOLOGY SUPERVISOR 20 mg Given 06/29/2021 8:53 PM QUALITY CONTROL MICROBIOLOGY SUPERVISOR 20 mg clonazePAM (KlonoPIN) tablet 0.5 mg 0.5 mg, oral, 2 times daily PRN, anxiety, Starting on [place] 06/29/21 at 1436 Given 07/02/2021 8:08 AM QUALITY CONTROL MICROBIOLOGY SUPERVISOR 0.5 mg Given 07/01/2021 8:49 PM QUALITY CONTROL MICROBIOLOGY SUPERVISOR 0.5 mg Given 07/01/2021 8:21 AM QUALITY CONTROL MICROBIOLOGY SUPERVISOR 0.5 mg cyclobenzaprine (FLEXERIL) tablet 10 mg 10 mg, oral, 2 times daily, First dose (after last modification) on [place] 06/29/21 at 1223 Given 06/29/2021 12:30 PM QUALITY CONTROL MICROBIOLOGY SUPERVISOR 10 mg cyclobenzaprine (FLEXERIL) tablet 10 mg 10 mg, oral, 2 times daily, First dose on [place] 06/29/21 at 2100, Indications: Muscle SpasmIndications:Muscle Spasm Given 07/02/2021 8:08 AM QUALITY CONTROL MICROBIOLOGY SUPERVISOR 10 mg Given 07/01/2021 8:15 PM QUALITY CONTROL MICROBIOLOGY SUPERVISOR 10 mg Given 07/01/2021 8:20 AM QUALITY CONTROL MICROBIOLOGY SUPERVISOR 10 mg cyclobenzaprine (FLEXERIL) tablet 5 mg 5 mg, oral, Once, On 07/01/21 at 1530, For 1 dose Given 07/01/2021 3:06 PM QUALITY CONTROL MICROBIOLOGY SUPERVISOR 5 mg dicyclomine (BENTYL) capsule 10 mg 10 mg, oral, 3 times daily, First dose on [place] 06/29/21 at 1600, Indications: Irritable Bowel SyndromeIndications:Irritable Bowel Syndrome Given 07/02/2021 8:09 AM QUALITY CONTROL MICROBIOLOGY SUPERVISOR 10 mg Given 07/01/2021 8:15 PM QUALITY CONTROL MICROBIOLOGY SUPERVISOR 10 mg Given 07/01/2021 3:04 PM QUALITY CONTROL MICROBIOLOGY SUPERVISOR 10 mg docusate sodium (COLACE) capsule 100 mg 100 mg, oral, Daily, First dose on [place] 06/29/21 at 1515, Indications: constipationIndications:constipation Given 07/02/2021 8:08 AM QUALITY CONTROL MICROBIOLOGY SUPERVISOR 100 mg Given 06/30/2021 9:13 AM QUALITY CONTROL MICROBIOLOGY SUPERVISOR 100 mg Given 06/29/2021 3:29 PM QUALITY CONTROL MICROBIOLOGY SUPERVISOR 100 mg droperidoL (INAPSINE) injection 1.25 mg 1.25 mg, intravenous, Administer over 5 Minutes, Once, On Sat06/28/21 at 2356, For 1 dose Given 06/29/2021 12:09 AM QUALITY CONTROL MICROBIOLOGY SUPERVISOR 1.25 mg enoxaparin (LOVENOX) syringe 40 mg 40 mg, subcutaneous, Daily (for enoxaparin), First dose on [place] 06/29/21 at 2100, Indications: Deep Vein Thrombosis PreventionIndications:Deep Vein Thrombosis Prevention Given 07/01/2021 8:15 PM QUALITY CONTROL MICROBIOLOGY SUPERVISOR 40 mg Left Lower Abdomen Given 06/30/2021 9:10 PM QUALITY CONTROL MICROBIOLOGY SUPERVISOR 40 mg Ri ght Lower Abdomen Given 06/29/2021 8:54 PM QUALITY CONTROL MICROBIOLOGY SUPERVISOR 40 mg Le ft Lower Abdomen famotidine (PEPCID) tablet 20 mg 20 mg, oral, Once, On [place] 06/29/21 at 0243, For 1 dose Given 06/29/2021 3:06 AM QUALITY CONTROL MICROBIOLOGY SUPERVISOR 20 mg fluticasone propionate (FLONASE) 50 mcg/actuation nasal spray 2 spray 2 spray, each nostril, Daily, First dose on [place] 06/29/21 at 1515 Given 06/29/2021 6:45 PM QUALITY CONTROL MICROBIOLOGY SUPERVISOR 2 sprays ioversoL (OPTIRAY 350) syringe syringe 100 mL 100 mL, intravenous, Once in imaging, contrast, Starting on Sat06/28/21 at 2344, For 1 dose Contrast Given 06/28/2021 11:51 PM QUALITY CONTROL MICROBIOLOGY SUPERVISOR 95 mL isosorbide mononitrate ER (IMDUR) extended release tablet 30 mg 30 mg, oral, Daily, First dose on [place] 06/29/21 at 1515, Tablets that are scored may be split, but do not crush, chew, dissolve, open or otherwise manipulate tablet/capsule. Given 07/02/2021 8:08 AM QUALITY CONTROL MICROBIOLOGY SUPERVISOR 30 mg Given 07/01/2021 8:21 AM QUALITY CONTROL MICROBIOLOGY SUPERVISOR 30 mg Given 06/30/2021 9:10 AM QUALITY CONTROL MICROBIOLOGY SUPERVISOR 30 mg ketorolac (TORADOL) injection 15 mg 15 mg, intravenous, Once, On Sat06/30/21 at 2215, For 1 dose, For Adult IV push, administer over 15 seconds Given 06/30/2021 10:05 PM QUALITY CONTROL MICROBIOLOGY SUPERVISOR 15 mg ketorolac (TORADOL) injection 15 mg 15 mg, intravenous, Once, On Sat07/01/21 at 1830, For 1 dose, For Adult IV push, administer over 15 seconds Given 07/01/2021 6:06 PM QUALITY CONTROL MICROBIOLOGY SUPERVISOR 15 mg Lactated Ringer's (LR) bolus 500 mL 500 mL, intravenous, Once, On Sat06/28/21 at 2246, For 1 dose New Bag 06/28/2021 11:04 PM QUALITY CONTROL MICROBIOLOGY SUPERVISOR 500 mL Lactated Ringer's (LR) infusion - ADS Override Pull Starting on Sat06/29/21 at 0356, For 1 dose, Created by cabinet override New Bag 06/29/2021 4:03 AM QUALITY CONTROL MICROBIOLOGY SUPERVISOR 500 mL 1000 mL/hr lidocaine (LIDODERM) 5 % patch 1 patch 1 patch, transdermal, Administer over 12 Hours, Daily, First dose on [place] 06/29/21 at 1800, Do not cover the holes on the top side of the patch., Apply to affected area: leg, Laterality: Right Medication Applied 07/02/2021 8:18 AM QUALITY CONTROL MICROBIOLOGY SUPERVISOR 1 patch Other (Comment) Medication Applied 07/01/2021 8:28 AM QUALITY CONTROL MICROBIOLOGY SUPERVISOR 1 patch Other (Comment) Medication Applied 06/30/2021 9:13 AM QUALITY CONTROL MICROBIOLOGY SUPERVISOR 1 patch Other (Comment) magnesium citrate oral solution 296 mL 296 mL, oral, Once, On [place] 06/29/21 at 1600, For 1 dose, Administer at 4:00 AM on the day of the procedure., Indications: Bowel EvacuationIndications:Bowel Evacuation Given 06/29/2021 6:45 PM QUALITY CONTROL MICROBIOLOGY SUPERVISOR 296 m L metoprolol tartrate (LOPRESSOR) immediate release tablet 25 mg 25 mg, oral, 2 times daily, First dose on [place] 06/29/21 at 2100, On hold since 07/01/2021 at 1753 until manually unheld Given 07/01/2021 8:22 AM QUALITY CONTROL MICROBIOLOGY SUPERVISOR 25 mg Given 06/30/2021 9:10 PM QUALITY CONTROL MICROBIOLOGY SUPERVISOR 25 mg Given 06/29/2021 8:53 PM QUALITY CONTROL MICROBIOLOGY SUPERVISOR 25 mg mineral oil (FLEET MINERAL OIL) enema 1 enema 1 enema, rectal, Once, On [place] 06/29/21 at 0345, For 1 dose, Indications: constipationIndications:constipation Given 06/29/2021 5:07 AM QUALITY CONTROL MICROBIOLOGY SUPERVISOR 1 enema morphine injection 4 mg 4 mg, intravenous, Administer over 4 Minutes, Every 2 hours PRN, 1st line for pain, Starting on Sat06/28/21 at 2244, For 2 doses Given 06/29/2021 7:19 AM QUALITY CONTROL MICROBIOLOGY SUPERVISOR 4 mg Given 06/28/2021 11:05 PM QUALITY CONTROL MICROBIOLOGY SUPERVISOR 4 mg ondansetron (ZOFRAN) injection 4 mg 4 mg, intravenous, Administer over 2 Minutes, Once, On Sat06/28/21 at 2348, For 1 dose Given 06/29/2021 12:09 AM QUALITY CONTROL MICROBIOLOGY SUPERVISOR 4 mg ondansetron (ZOFRAN) injection 4 mg 4 mg, intravenous, Administer over 2 Minutes, Once, On [place] 06/29/21 at 0243, For 1 dose Given 06/29/2021 3:06 AM QUALITY CONTROL MICROBIOLOGY SUPERVISOR 4 mg ondansetron (ZOFRAN) injection 4 mg 4 mg, intravenous, Administer over 2 Minutes, Every 4 hours PRN, nausea, Starting on [place] 06/29/21 at 0811 Given 06/29/2021 8:43 AM QUALITY CONTROL MICROBIOLOGY SUPERVISOR 4 mg oxyCODONE (ROXICODONE) tablet 5 mg 5 mg, oral, Every 4 hours PRN, 1st line for pain, Starting on [place] 06/29/21 at 0810, Indications: PainIndications:Pain Given 06/29/2021 1:48 PM QUALITY CONTROL MICROBIOLOGY SUPERVISOR 5 mg Given 06/29/2021 8:46 AM QUALITY CONTROL MICROBIOLOGY SUPERVISOR 5 mg oxyCODONE (ROXICODONE) tablet 5 mg 5 mg, oral, Once, On [place] 06/29/21 at 2130, For 1 dose, Indications: PainIndications:Pain Given 06/29/2021 9:06 PM QUALITY CONTROL MICROBIOLOGY SUPERVISOR 5 mg oxyCODONE (ROXICODONE) tablet 5 mg 5 mg, oral, Once, On Sat06/30/21 at 1245, For 1 dose, Indications: PainIndications:Pain Given 06/30/2021 12: 23 PM QUALITY CONTROL MICROBIOLOGY SUPERVISOR [address] (PROTONIX) extended release tablet 40 mg 40 mg, oral, Every morning, First dose on Sat06/30/21 at 0900, Do not crush, chew, cut, dissolve, open or otherwise manipulate tablet/capsule., Indications: Stress Ulcer ProphylaxisIndications:Stress Ulcer Prophylaxis Given 07/02/2021 8:09 AM QUALITY CONTROL MICROBIOLOGY SUPERVISOR 40 mg Given 07/01/2021 8:21 AM QUALITY CONTROL MICROBIOLOGY SUPERVISOR 40 mg Given 06/30/2021 9:10 AM QUALITY CONTROL MICROBIOLOGY SUPERVISOR 40 mg phenoL (CHLORASEPTIC) 1.4 % oral spray 2 spray 2 spray, mouth/throat, Once, On Sat06/30/21 at 1045, For 1 dose Given 06/30/2021 11:56 AM QUALITY CONTROL MICROBIOLOGY SUPERVISOR 2 sprays polyethylene glycol (GoLYTELY) solution 4,000 mL 4,000 mL, oral, Once, On Sat06/30/21 at 1100, For 1 dose, Starting at 1030am have patient rapidly drink 8 ounces of solution every 10 minutes until jug (4 liters) is empty. Do not sip. This should take 3 hours. If patient becomes nauseated, decrease frequency of drinking to every 20 minutes. Using the container provided, add lukewarm water (may use tap water) up to the 4 L water amanda; shake vigorously several times to ensure dissolution of the powder., Indications: Bowel EvacuationIndications:Bowel Evacuation Given 06/30/2021 12:23 PM QUALITY CONTROL MICROBIOLOGY SUPERVISOR 4,00 0 mL sodium chloride 0.9% bolus 250 mL 250 mL, intravenous, Once, On 07/01/21 at 1230, For 1 dose New Bag 07/01/2021 12:21 PM QUALITY CONTROL MICROBIOLOGY SUPERVISOR 250 mL sodium chloride 0.9% flush 0.5-20 mL 0.5-20 mL, intra-catheter, Every 8 hours scheduled, First dose on [place] 06/29/21 at 1515, Flush volume based on line type and size. , Indications: FlushingIndications:Flushing Given 07/01/2021 4:45 AM QUALITY CONTROL MICROBIOLOGY SUPERVISOR 10 mL Given 06/30/2021 9:10 PM QUALITY CONTROL MICROBIOLOGY SUPERVISOR 10 mL Given 06/30/2021 4:05 PM QUALITY CONTROL MICROBIOLOGY SUPERVISOR 10 mL sodium chloride 0.9% flush 0.5-20 mL 0.5-20 mL, intra-catheter, As needed, line care, Starting on [place] 06/29/21 at 1436, Flush volume based on line type and size. Flush before and after each use. , Indications: FlushingIndications:Flushing Given 06/30/2021 10:05 PM QUALITY CONTROL MICROBIOLOGY SUPERVISOR 1 0 mL traMADoL (ULTRAM) tablet 50 mg 50 mg, oral, Once, On Sat06/30/21 at 0445, For 1 dose Given 06/30/2021 4:24 AM QUALITY CONTROL MICROBIOLOGY SUPERVISOR 50 mg traZODone (DESYREL) tablet 150 mg 150 mg, oral, Nightly, First dose on [place] 06/29/21 at 2100 Given 07/01/2021 8:14 PM QUALITY CONTROL MICROBIOLOGY SUPERVISOR 150 mg Given 06/30/2021 10:06 PM QUALITY CONTROL MICROBIOLOGY SUPERVISOR 150 mg Given 06/29/2021 8:53 PM QUALITY CONTROL MICROBIOLOGY SUPERVISOR 150 mg venlafaxine XR (EFFEXOR-XR) extended release capsule 225 mg 225 mg, oral, Daily with breakfast, First dose on Sat06/30/21 at 0800, Do not crush, chew, cut, dissolve, open or otherwise manipulate tablet/capsule. Given 07/02/2021 8:08 AM QUALITY CONTROL MICROBIOLOGY SUPERVISOR 225 mg Given 07/01/2021 8:19 AM QUALITY CONTROL MICROBIOLOGY SUPERVISOR 225 mg Given 06/30/2021 9:13 AM QUALITY CONTROL MICROBIOLOGY SUPERVISOR 225 mg documented in this encounter Discontinued Medications Medication Sig Discontinue Reason Start Date End Da te folic acid (FOLVITE) 1 mg tabletIndications:Folate Deficiency Take 1 mg by mouth daily with dinner Stop Taking at Discharge 07/02/2021 ergocalciferol (VITAMIN D) 50,000 unit capsuleIndications:Vitam in D Deficiency Take 50,000 Units by mouth once a week SATURDAY Stop Taking at Discharge 07/02/2021 cyanocobalamin (Vitamin B-12) 1,000 mcg tablet Take 1,000 mcg by mouth daily Stop Taking at Discharge 10/24/2020 07/02/2021 loratadine 10 mg capsule Take 10 mg by mouth daily Stop Taking at Discharge 07/02/2021 levETIRAcetam (KEPPRA) 250 mg tablet Take 250 mg by mouth 2 (two) times a day Stop Taking at Discharge 07/02/2021 prazosin (MINIPRESS) 1 mg capsule Take 1 mg by mouth nightly Stop Taking at Discharge 07/02/2021 OLANZapine (ZyPREXA ZYDIS) 10 mg disintegrating tabletIndications:Depres mar Treatment Adjunct,Mixed Bipolar I Disorder Take 1 tablet (10 mg total) by mouth nightly Stop Taking at Discharge 02/20/2021 07/02/2021 OLANZapine (ZyPREXA ZYDIS) 5 mg disintegrating tabletIndications:Depres mar Treatment Adjunct,Mixed Bipolar I Disorder Take 1 tablet (5 mg total) by mouth daily Stop Taking at Discharge 02/20/2021 07/02/2021 metoprolol tartrate (LOPRESSOR) 25 mg immediate release tablet Take 1 tablet (25 mg total) by mouth 2 (two) times a day Stop Taking at Discharge 07/01/2021 07/02/2021 documented as of this encounter Historical Medications * This list may reflect changes made after this encounter. isosorbide mononitrate ER (IMDUR) 30 mg 24 hr tablet isosorbide mononitrate ER 30 mg tablet,extended release 24 hr 06/23/2021 nitroglycerin (NITROSTAT) 0.4 mg SL tablet nitroglycerin 0.4 mg sublingual tablet 06/12/2021 added in this encounter Active and Recently Administered Medications Times are shown in QUALITY CONTROL MICROBIOLOGY SUPERVISOR. Scheduled Medication Order 06/30/2021 07/01/2021 07/02/2021 acetaminophen (TYLENOL) tablet 1,000 mg 1,000 mg, oral, Every 6 hours scheduled, First dose on [place] 06/29/21 at 0812 0400 (Given - Provider: Nichelle Shaffer RN)0909 (Given - Provider: Curtis Cosme RN)1603 (Given - Provider: Curtis Cosme RN)2110 (Given - Provider: Nichelle Shaffer RN) 0445 (Given - Provider: Nichelle Shaffer RN)0821 (Given - Provider: Curtis Cosme RN)1448 (Given - Provider: Curtis Cosme RN)2013 (Given - Provider: Mynor Kitchen RN) 0419 (Not Given - Provider: Mynor Kitchen RN - Reason: Patient/family refused)0808 (Given - Provider: Curtis Cosme RN) aspirin enteric coated tablet 81 mg 81 mg, oral, Every other day, First dose on [place] 06/29/21 at 1515, Do not crush, chew, cut, dissolve, open or otherwise manipulate tablet/capsule. 0820 (Given - Provider: Curtis Cosme RN) atorvastatin (LIPITOR) tablet 20 mg 20 mg, oral, Nightly, First dose on [place] 06/29/21 at 2100 2110 (Given - Provider: Nichelle Shaffer RN) 2013 (Given - Provider: Mynor Kitchen RN) cyclobenzaprine (FLEXERIL) tablet 10 mg 10 mg, oral, 2 times daily, First dose on [place] 06/29/21 at 2100, Indications: Muscle Spasm 0909 (Given - Provider: Curtis Cosme RN)2109 (Given - Provider: Nichelle Shaffer RN) 0820 (Given - Provider: Curtis Cosme RN)2014 (Given - Provider: Mynor Kitchen RN) 0808 (Given - Provider: Curtis Cosme RN) cyclobenzaprine (FLEXERIL) tablet 5 mg (COMPLETED) 5 mg, oral, Once, On 07/01/21 at 1530, For 1 dose 1506 (Given - Provider: Curtis Cosme RN) dicyclomine (BENTYL) capsule 10 mg 10 mg, oral, 3 times daily, First dose on [place] 06/29/21 at 1600, Indications: Irritable Bowel Syndrome 0912 (Given - Provider: Curtis Cosme RN)1604 (Given - Provider: Curtis Cosme RN)211 (Given - Provider: Nichelle Shaffer RN) 0821 (Given - Provider: Curtis Cosme RN)1504 (Given - Provider: Curtis Cosme RN)2014 (Given - Provider: Mynor Kitchen RN) 0809 (Given - Provider: Curtis Cosme RN) docusate sodium (COLACE) capsule 100 mg 100 mg, oral, Daily, First dose on [place] 06/29/21 at 1515, Indications: constipation 0913 (Given - Provider: Curtis Cosme RN) 0822 (Not Given - Provider: Curtis Cosme RN - Reason: Patient/family refused) 08 (Given - Provider: Curtis Cosme RN) enoxaparin (LOVENOX) syringe 40 mg 40 mg, subcutaneous, Daily (for enoxaparin), First dose on [place] 06/29/21 at 2100, Indications: Deep Vein Thrombosis Prevention 2109 (Given - Provider: Nichelle Shaffer, KAT)2130 (Not Given - Provider: Nichelle Shaffer RN - Reason: Other - Comment: duplicate) 2014 (Given - Provider: Mynor Kitchen RN) fluticasone propionate (FLONASE) 50 mcg/actuation nasal spray 2 spray 2 spray, each nostril, Daily, First dose on [place] 06/29/21 at 1515 0918 (Not Given - Provider: Curtis Cosme RN - Reason: Patient/family refused) 0829 (Not Given - Provider: Curtis Cosme RN - Reason: Patient/family refused) 0900 (Due) isosorbide mononitrate ER (IMDUR) extended release tablet 30 mg 30 mg, oral, Daily, First dose on [place] 06/29/21 at 1515, Tablets that are scored may be split, but do not crush, chew, dissolve, open or otherwise manipulate tablet/capsule. 0910 (Given - Provider: Curtis Cosme RN) 0821 (Given - Provider: Curtis Cosme RN) 0808 (Given - Provider: Curtis Cosme RN) ketorolac (TORADOL) injection 15 mg (COMPLETED) 15 mg, intravenous, Once, On Sat06/30/21 at 2215, For 1 dose, For Adult IV push, administer over 15 seconds 2205 (Given - Provider: Nichelle Shaffer RN) ketorolac (TORADOL) injection 15 mg (COMPLETED) 15 mg, intravenous, Once, On Sat21 at 1830, For 1 dose, For Adult IV push, administer over 15 seconds 1806 (Given - Provider: Curtis Cosme RN) lidocaine (LIDODERM) 5 % patch 1 patch 1 patch, transdermal, Administer over 12 Hours, Daily, First dose on [place] 06/29/21 at 1800, Do not cover the holes on the top side of the patch., Apply to affected area: leg, Laterality: Right 0715 (Medication Removed - Provider: Nichelle Shaffer RN)0913 (Medication Applied - Provider: Curtis Cosme RN - Comment: right hip)2111 (Medication Removed - Provider: Nichelle Shaffer RN) 0828 (Medication Applied - Provider: Curtis Cosme RN - Comment: right hip)2025 (Medication Removed - Provider: Mynor Kitchen RN) 0818 (Medication Applied - Provider: Curtis Cosme RN - Comment: right hip)1006 (Due: Medication Removed - Provider: Automatic Discharge Provider - Comment: Time automatically adjusted from order being discontinued) metoprolol tartrate (LOPRESSOR) immediate release tablet 25 mg 25 mg, oral, 2 times daily, First dose on [place] 06/29/21 at 2100, On hold since 07/01/2021 at 1753 until manually unheld 0915 (Not Given - Provider: Curtis Cosme RN - Reason: Other - Comment: held for low blood pressure as per MD verbal order)2109 (Given - Provider: Nichelle Shaffer RN) 0822 (Given - Provider: Curtis Cosme RN)1753 (Held by Provider - Provider: Megan Crockett MD - Reason: Change in Patient Status)2100 (Not Given - Provider: Mynor Kitchen RN - Reason: See Provider Order) 0900 (Dose Auto Held - Provider: Megan Crockett MD)1409 (Unheld by Provider - Provider: Automatic Discharge Provider) oxyCODONE (ROXICODONE) tablet 5 mg (COMPLETED) 5 mg, oral, Once, On 06/30/21 at 1245, For 1 dose, Indications: Pain 1223 (Given - Provider: Curtis Cosme RN) pantoprazole DR (PROTONIX) extended release tablet 40 mg 40 mg, oral, Every morning, First dose on Sat06/30/21 at 0900, Do not crush, chew, cut, dissolve, open or otherwise manipulate tablet/capsule., Indications: Stress Ulcer Prophylaxis 0910 (Given - Provider: Curtis Cosme RN) 0821 (Given - Provider: Curtis Cosme RN) 0809 (Given - Provider: Curtis Cosme RN) phenoL (CHLORASEPTIC) 1.4 % oral spray 2 spray (COMPLETED) 2 spray, mouth/throat, Once, On Sat06/30/21 at 1045, For 1 dose 1156 (Given - Provider: Curtis Cosme RN) polyethylene glycol (GoLYTELY) solution 4,000 mL (COMPLETED) 4,000 mL, oral, Once, On Sat06/30/21 at 1100, For 1 dose, Starting at 1030am have patient rapidly drink 8 ounces of solution every 10 minutes until jug (4 liters) is empty. Do not sip. This should take 3 hours. If patient becomes nauseated, decrease frequency of drinking to every 20 minutes. Using the container provided, add lukewarm water (may use tap water) up to the 4 L water amanda; shake vigorously several times to ensure dissolution of the powder., Indications: Bowel Evacuation 1223 (Given - Provider: Curtis Cosme RN) sodium chloride 0.9% bolus 250 mL (COMPLETED) 250 mL, intravenous, Once, On 07/01/21 at 1230, For 1 dose 1221 (New Bag - Provider: Curtis Cosme RN)1330 (Stopped - Provider: Curtis Cosme RN) sodium chloride 0.9% flush 0.5-20 mL 0.5-20 mL, intra-catheter, Every 8 hours scheduled, First dose on [place] 06/29/21 at 1515, Flush volume based on line type and size. , Indications: Flushing 0401 (Given - Provider: Nichelle Shaffer RN)1605 (Given - Provider: Curtis Cosme RN)2110 (Given - Provider: Nichelle Shaffer, KAT) 0445 (Given - Provider: Nichelle Shaffer RN)1344 (Not Given - Provider: Curtis Cosme RN - Reason: IV Infusing)2200 (Due) 0600 (Due) traMADoL (ULTRAM) tablet 50 mg (COMPLETED) 50 mg, oral, Once, On Sat06/30/21 at 0445, For 1 dose 0424 (Given - Provider: Nichelle Shaffer, KAT) traZODone (DESYREL) tablet 150 mg 150 mg, oral, Nightly, First dose on Sat06/29/21 at 2100 2206 (Given - Provider: Ncihelle Shaffer, KAT) 2013 (Given - Provider: Mynor Kitchen RN) venlafaxine XR (EFFEXOR-XR) extended release capsule 225 mg 225 mg, oral, Daily with breakfast, First dose on Sat06/30/21 at 0800, Do not crush, chew, cut, dissolve, open or otherwise manipulate tablet/capsule. 0913 (Given - Provider: Curtis Cosme RN) 0819 (Given - Provider: Curtis Cosme RN) 08 (Given - Provider: Curtis Cosme RN) PRN Medication Order 06/30/2021 07/01/2021 07/02/2021 clonazePAM (KlonoPIN) tablet 0.5 mg 0.5 mg, oral, 2 times daily PRN, anxiety, Starting on [place] 06/29/21 at 1436 1149 (Given - Provider: Curtis Cosme RN) 0821 (Given - Provider: Curtis Cosme RN)2048 (Given - Provider: Mynor Kitchen, KAT) 08 (Given - Provider: Curtis Cosme RN) ondansetron (ZOFRAN) injection 4 mg 4 mg, intravenous, Administer over 2 Minutes, Every 4 hours PRN, nausea, Starting on [place] 06/29/21 at 0811 sodium chloride 0.9% flush 0.5-20 mL 0.5-20 mL, intra-catheter, As needed, line care, Starting on [place] 06/29/21 at 1436, Flush volume based on line type and size. Flush before and after each use. , Indications: Flushing 2205 (Given - Provider: Nichelle Shaffer RN) documented in this encounter Orders Medications Ordered That Guy ht Not Have Been Administered Count Last Ordered Date First Ordered Date cyclobenzaprine (FLEXERIL) tablet 10 mg 1 1 08/29/2020 Lactated Ringer's (LR) bolus 500 mL 1 06/29 morphine injection 4 mg 1 06/29/2021 venlafaxine XR (EFFEXOR-XR) extended release capsule 150 mg 1 06/29/2021 venlafaxine XR (EFFEXOR-XR) extended release capsule 75 mg 1 06/29/2021 Lab Orders Without Results Count Last Ordered D ate First Ordered Date POCT CREATININE - DEVICE 1 06/28/2021 Diet Count Last Ordered Date First Orde red Date ADULT DISCHARGE DIET 1 07/01/2021 Nursing Count Last Ordered Date First Orde red Date DISCHARGE INSTRUCTIONS 1 07/01/2021 CONTINUOUS PULSE OXIMETRY 1 06/29/2021 WEIGH PATIENT 1 06/29/2021 MISCELLANEOUS NURSING CARE ORDER (SPECIFY) 1 06/28/2021 NURSING COMMUNICATION 1 06/28/2021 IV Count Last Ordered Date First Orde red Date SALINE LOCK IV 1 06/28/2021 ADT Patient Update Count Last Ordered Date Firs t Ordered Date ED IP DECISION TO ADMIT 1 06/29/[address]21 PLACE IN ED OBSERVATION 1 06/29/2021 documented in this encounter Additional Health Concerns Infection Onset Date Last Indicated Resolved Time 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
--- OUTSIDE RECORDS SUMMARY | 2024-08-08 16:02 | XMS_ITS | Encounter Summary ---
Author Organization [facility] Healthcare Address [address] [place] [address] Care Team Providers Care Department Secretary Name Role Phone Lazarus Albert MD Primary Care Provider [phone] Encounter Details Date Type Department Care Team (Latest Contact Info) Description 06/28/2021 7:01 PM HAND MITER OPERATOR - 06/28/2021 10:11 PM HAND MITER OPERATOR Hospital Encounter [facility] Radiology [address] [place] [address] Discharge Disposition: Discharge to home or self [...] often do you attend chur ch or orthodox services? 1 to 4 times per year 02/09/2021 Do you belong to any clubs o r organizations such as methodist groups, unions, fraternal or athletic groups, or [...] on file Legal Sex Female 5:42 AM HAND MITER OPERATOR Gender Identity Not on file Sexual Orientation [...] by mouth daily with breakfast 90 capsule 1 cyanocobalamin (Vitamin B-12) 1,000 mcg tablet Take 1,000 mcg by mouth daily 1 07/02/20 21 cyclobenzaprine (FLEXERIL) 10 mg tabletIndications:M uscle Spasm Take 10 mg by mouth 2 (two) times a day 03/05/20 24 ergocalciferol (VITAMIN D) 50,000 unit capsuleIndications: Vitamin D Deficiency Take 50,000 Units by mouth once a week Saturday07/02/20 21 folic acid (FOLVITE) 1 mg tabletIndications:F olate Deficiency Take 1 mg by mouth daily with dinner 07/02/20 21 levETIRAcetam (KEPPRA) 250 mg tablet Take 250 mg by mouth 2 (two) times a day 07/02/20 21 lidocaine (LIDODERM) 5 % Place 1 patch on the skin daily Remove & discard patch within 12 hours or as directed by . 30 patch 1 03/05/20 24 loratadine 10 mg capsule Take 10 mg by mouth daily 07/02/20 metoprolol tartrate (LOPRESSOR) 25 mg immediate release tablet Take 1 tablet (25 mg total) by mouth 2 (two) times a day 60 tablet 07/02/20 OLANZapine (ZyPREXA ZYDIS) 10 mg disintegrating tabletIndications:D epression Treatment Adjunct,Mixed Bipolar I Disorder Take 1 tablet (10 mg total) by mouth nightly 30 tablet 07/02/20 OLANZapine (ZyPREXA ZYDIS) 5 mg disintegrating tabletIndications:D epression Treatment Adjunct,Mixed Bipolar I Disorder Take 1 tablet (5 mg total) by mouth daily 30 tablet 07/02/20 prazosin (MINIPRESS) 1 mg capsule Take 1 mg by mouth nightly 07/02/20 documented as of this encounter Discharge Disposition Disposition Code Departure Means Destination Discharge to home or self care documented in this encounter Plan of Treatment Not on file documented as of this encounter Procedures Procedure Name Priority Date/Time Associated Diagnosis Comments XR CHEST PA LATERAL 2 VIEWS ED 06/28/2021 7:06 PM HAND MITER OPERATOR documented in this encounter Results * XR Chest Pa Lateral 2 Vw (06/28/2021 7:06 PM HAND MITER OPERATOR) Anatomical Region Laterality Modality Body, Chest N/A Computed Radiogr aphy 06/28/2021 7:16 PM HAND MITER OPERATOR Impressions 06/28/2021 7:16 PM HAND MITER OPERATOR Comparison 02/17/2021. Right upper lobe consolidation has resolved. ??Right peripherally inserted central catheter has been removed. ??Bilateral pleural effusions resolved. No new consolidation, pneumothorax, or pleural effusion. ??Suture material overlies the left lung apex. ??Heart size and mediastinal contour stable. Electronically signed by: Rob Colin M.D. 

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
--- OUTSIDE RECORDS SUMMARY | 2024-08-08 16:02 | XMS_ITS | Referral Summary ---
Author Organization [facility] Address [address] [place] [address] Care Team Providers Care Software Manager Name Role Phone Fernando Chavez MD Primary Care Provider Encounters Date Type Department Care Team Description 06/25/2024 1:22 AM BRAKES INSPECTOR - 06/25/2024 11:59 PM BRAKES INSPECTOR Hospital Encounter [facility] Emergency, Room R Discharge Disposition: Discharge to home or self care from Last 3 Months Allergies Active Allergy [...] mouth 2 (two) times a day 10/29/19 Active atorvastatin (LIPITOR) 20 mg tablet Take [...] 30 mg tablet,extended release 24 hr 06/23/20 Active clonazePAM (KlonoPIN) 0.5 mg tablet Take 1 tablet (0.5 mg total) by mouth 3 (three) times a day 90 tablet 07/01/20 21 Active traZODone (DESYREL) 150 mg tablet Take 1 tablet (150 mg total) by mouth nightly 30 tablet 07/01/20 Active venlafaxine XR (EFFEXOR-XR) 75 mg 24 hr capsule Take 3 capsules (225 mg total) by mouth daily with breakfast 90 capsule 11 07/02/20 Active acetaminophen 500 mg capsuleIndications :Pain Take [...] as needed for pain 10 tablet 03/25/20 Active naloxone (NARCAN) 4 mg/actuation spray,non-aerosol Administer [...] 07/02/2021 Assessment & Plan (07/02/2021 11:18 AM BRAKES INSPECTOR): Pt's systolic blood pressure was noted to [...] metoprolol for now. Pt is contact her fur mixer tomorrow for further instructions. Fall 06/29/2021 Assessment & Plan (07/02/2021 11:10 AM BRAKES INSPECTOR): Mechanical fall day prior to presentation with right hip pain. No prior history of hip pain. Xray of hip and knee were negative. Continue management with nonnarcotic meds. Home health referral made outpt. Assessment & Plan (07/01/2021 10:55 AM BRAKES INSPECTOR): Mechanical fall day prior to presentation with right hip pain. No prior history of hip pain. Xray of hip and knee were negative. Continue management with nonnarcotic meds. PT consulted. Assessment & Plan (06/30/2021 11:54 AM BRAKES INSPECTOR): Mechanical fall yesterday with right hip pain. No prior history of hip pain. Xray of hip and knee were negative. Continue management with nonnarcotic meds. PT consulted but pt refused to work with PT this morning. Assessment & Plan (06/29/2021 1:48 PM BRAKES INSPECTOR): Mechanical fall yesterday with right hip pain. No prior history of hip pain. Xray of hip and knee were negative. Continue management with nonnarcotic meds. Acute hypoxemic respiratory failure 02/08/2021 Elevated troponin 01/14/2021 Atypical chest pain 01/14/2021 Assessment & Plan (07/02/2021 11:09 AM BRAKES INSPECTOR): Troponins are negative. Continue to follow with fur mixer as outpatient. Assessment & Plan (07/01/2021 10:54 AM BRAKES INSPECTOR): Troponins are negative. Continue to follow with fur mixer as outpatient. Assessment & Plan (06/30/2021 11:52 AM BRAKES INSPECTOR): Troponins are negative. Continue to follow with fur mixer as outpatient. Assessment & Plan (06/29/2021 1:45 PM BRAKES INSPECTOR): Troponins are negative. Continue to follow with fur mixer as outpatient. Hepatitis 01/14/2021 Tylenol overdose 01/14/2021 [...] (04/11/2020): Added automatically from request for surgery [id number] Assessment & Plan (07/02/2021 10:58 AM BRAKES INSPECTOR): Please see constipation noted elsewhere. CT is otherwise unremarkable. Pt also has underlying chronic abdominal pain. Assessment & Plan (07/01/2021 10:53 AM BRAKES INSPECTOR): Please see constipation noted elsewhere. CT is otherwise unremarkable. Pt also has underlying chronic abdominal pain. Assessment & Plan (06/30/2021 11:49 AM BRAKES INSPECTOR): Please see constipation noted elsewhere. CT is otherwise unremarkable. Pt also has underlying chronic abdominal pain. Assessment & Plan (06/29/2021 1:48 PM BRAKES INSPECTOR): Please see constipation noted elsewhere. CT is [...] NOS Assessment & Plan (07/02/2021 11:09 AM BRAKES INSPECTOR): Continue home meds. Assessment & Plan (07/01/2021 10:53 AM BRAKES INSPECTOR): Continue home meds. Assessment & Plan (06/30/2021 11:51 AM BRAKES INSPECTOR): Continue home meds. Assessment & Plan (06/29/2021 1:46 PM BRAKES INSPECTOR): Continue home meds. Assessment & Plan (04/23/2020 1:50 PM CDT): - home clonazepam 0.5mg BID Acute cerebrovascular insufficiency 12/26/2013 Overview (11/16/2016): AC CEREBROVASC INSUF NOS Constipation Assessment & Plan (07/02/2021 11:09 AM BRAKES INSPECTOR): Pt's history and CT suggests this; no suggestion of bowel obstruction on CT. Continue bowel regimen and monitor for stools. Avoid narcotics; pt reports she is not on any narcotics at home. Mag citrate was tried per pt's request but this did not result in bm. She drank @ 2L of Golytely with good results. Assessment & Plan (07/01/2021 10:53 AM BRAKES INSPECTOR): Pt's history and CT suggests this; no suggestion of bowel obstruction on CT. Continue bowel regimen and monitor for stools. Avoid narcotics; pt reports she is not on any narcotics at home. Mag citrate was tried yesterday per pt's request but this did not result in bm. She drank @ 2L of Golytely with good results. Assessment & Plan (06/30/2021 11:50 AM BRAKES INSPECTOR): Pt's history and CT suggests this; no suggestion of bowel obstruction. Continue bowel regimen and monitor for stools. Avoid narcotics; pt reports she is not on any narcotics at home. Mag citrate was tried yesterday per pt's request but this did not result in bm. Plan is to place NG and give Golytely through this today. Assessment & Plan (06/29/2021 1:44 PM BRAKES INSPECTOR): Pt's history and CT suggests this; no suggestion of bowel obstruction. Continue bowel regimen and monitor for stools. Avoid narcotics; pt reports she is not on any narcotics at home. Immunizations Name Administration Dates Next Due Hep A / Hep B 07/02/2007 Influenza, Trivalent, IM (MDV) 05/25/2008 Pneumococcal Polysaccharide PPV23 08/06/2019 Tdap 07/20/2019 Social History Tobacco Use Types Packs/Day Years [...] often do you attend chur ch or zoroastrian services? 1 to 4 times per year [...] on file Legal Sex Female 5:42 AM BRAKES INSPECTOR Gender Identity Not on file Sexual [...] 03/25/2024 11:15 AM CDT Plan of Treatment Not on file Insurance [employer] MEDICARE HMO [facility] CHOICE [facility] CHOICE [employer] MEDICARE HMO Advance Directives For more information, please contact: [phone] * Full Code (Latest Code Status on [...] 4:23 PM 04/28/2020 8:27 PM Care Teams Software Manager Relationship Specialty Start Date End Date Fernando Chavez MD [address] [place] [id number] PCP - General Family Medicine 03/05/24
--- OUTSIDE RECORDS SUMMARY | 2024-08-08 16:02 | XMS_ITS | Encounter Summary ---
Author Organization [facility] Health Address [address] [facility] [address] Care Team Providers Care Over Hauler Helper Name Role Phone Fernando Chavez MD Primary Care Provider Encounter Details Date Type Department Care Team (Latest Contact Info) Description 09/09/2023 Travel Social History Tobacco Use Types Packs/Day [...] on filedocumented in this encounter Care Teams Over Hauler Helper Relationship Specialty Start Date End Date Fernando Chavez MD [address] [place] [address] PCP - General Family Medicine 09/06/23 documented as of this encounter
--- OUTSIDE RECORDS SUMMARY | 2024-08-08 16:02 | XMS_ITS | Encounter Summary ---
Author Organization [facility] Address [address] [facility] [place] [place] [address] Care Team Providers Care Electric Refrigerator Servicer Name Role Phone Fernando Chavez MD Primary Care Provider Reason for Referral * Radiology Services (Routine) - Pending Review Specialty Diagnoses / Procedures Referred By Contac t Referred To Contact Interventional Radiology Diagnoses Subclavian artery stenosis, right (HCC) Procedures IR CAROTID OR VERTEBRAL STENT Timi Mills MD [address] [place] [address] [facility] [address] [place] [address] Referral ID Status Reason Start Date Expiration Date V isits Requested Visits Authorized [id number] Pending Review 09/10/2023 09/09/2024 1 1 OR WEB ARCHITECT Reason for Visit * Reason Onset Date Comments Order 09/10/2023 Encounter Details Date Type Department Care Team (Late st Contact Info) Description 09/10/2023 Telephone [facility] - Neurology [address] [facility] [place] [id number] Cee Suggs LPN [address] [place] [address] Order Social History Tobacco Use Types Packs/Day Years [...] Type Priority Associated Diagnoses Orde r Schedule IR CAROTID OR VERTEBRAL STENT Imaging Routine Subclavian artery stenosis, right (HCC) 1 Occurrences starting 09/10/2023 until 09/10/2024 documented as of this encounter Visit Diagnoses Diagnosis Subclavian artery stenosis, right (HCC)- Primary Atherosclerosis of other specified arteries documented in this encounter Care Teams Electric Refrigerator Servicer Relationship Specialty Start Date End Date Fernando Chavez MD [address] [facility] [address] [place] [address] PCP - General Family Medicine 09/06/23 documented as of this encounter
--- OUTSIDE RECORDS SUMMARY | 2024-08-08 16:02 | XMS_ITS | Encounter Summary ---
Author Organization [facility] Address [address] [place] [address] Phone Care Team Providers Care Events Manager Name Role Phone Fernando Chavez MD Primary Care Provider [phone] Reason for Visit * Reason Onset Date Comments Med Management 03/17/2024 Encounter Details Date Type Department Care Team (Late st Contact Info) Description 03/17/2024 Telephone [facility] Department of Surgery [address] [facility] [address] [place] [address] [place] [address] Trinh Tomlin RMA Med Management Social History Tobacco Use Types Packs/Day Years [...] often do you attend chur ch or judaism services? 1 to 4 times per year 02/09/2021 Do you belong to any clubs o r organizations such as jain groups, unions, fraternal or athletic groups, or [...] on file Legal Sex Female 5:42 AM CARAMEL COLORING OPERATOR Gender Identity Not on file Sexual Orientation Not on file documented as of this encounter Miscellaneous Notes * Telephone Encounter - Trinh Tomlin RMA - 03/17/2024 10:00 AM CDT I CALLED PT AND LVM TO INFORM OF PREVIOUS MESSAGE * Telephone Encounter - Trinh Tomlin RMA - 03/17/2024 10:00 AM CDT Images from the original note were not included. documented in this encounter Plan of Treatment Not on file documented as of this encounter Visit Diagnoses Not on filedocumented in this encounter Care Teams Events Manager Relationship Specialty Start Date End Date Fernando Chavez MD [address] [place] [id number] PCP - General Family Medicine 03/05/24 documented as of this encounter
--- OUTSIDE RECORDS SUMMARY | 2024-08-08 16:02 | XMS_ITS | Encounter Summary ---
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 some isolates of Coronavirus HKU1. ??A dual positive result may be due to cross-reactivity or may indicate a co-infection. The detection and identification of specific viral and bacterial nucleic acids from individuals exhibiting signs and symptoms of a respiratory infection aids in the diagnosis of respiratory infection if used in conjunction with other clinical and epidemiological information. ??The results of this test should not be used as the sole basis for diagnosis, treatment, or other management decisions. ??Negative results in the setting of a respiratory illness may be due to infection with pathogens that are not detected by this test. ??Positive results do not rule out infection/co-infection with other organisms. ??The agent(s) detected by the FilmArray RP2.1 may not be the definite cause of disease. ??Additional testing (lab, imaging, etc.) may be necessary when evaluating a patient with possible respiratory tract infection. The FilmArray RP2.1 assay has FDA clearance for testing of TRAFFIC SUPERINTENDENT swabs. ??The performance of additional specimen types has been assessed by the performing laboratory. ??The performance characteristics of this assay have been determined by [facility]. Current interpretive data was last revised on 22. Trini Bahena MD LAB MICROBIOLOGY - [facility] ORDERABLES Final Result [facility] [place] [address] * Troponin I high-sensitivity series (baseline, 2hr, 4hr, 6hr) (03/04/2024 12:39 AM CDT) Trop I hs <4 <=17 ng/L Comment: Interpretive Data For further hscTnI resources including the diagnostic algorithm and an aid in interpretation, copy and paste this link: [email or web address] Current Interpretive Data last revised 2020. Blood 03/04/2024 12:3 9 AM CDT 03/04/2024 12:59 AM CDT Trini Bahena MD LAB BLOOD ORDERABLES Fin al Result Performing Organization Address [facility] [place] [address] * (ABNORMAL) aPTT (03/04/2024 12:39 AM CDT) Pathologist [facility] [place] aPTT 22(L) 28 - 38 sec Comment: Interpretive Data Heparin therapeutic range: 66.0 - 100.0 seconds. Range based on correlation with therapeutic heparin activity range of 0.3 - 0.7 Units/mL. Current interpretive data was last revised on 2023. Blood 03/04/2024 12:3 9 AM CDT 03/04/2024 12:59 AM CDT Trini Bahena MD LAB BLOOD ORDERABLES Fin al Result Performing Organization Address City/[facility] Co de Phone Number [facility] One [facility] [place] [address] * Protime-INR (03/04/2024 12:39 AM CDT) Pathologist [facility] [place] PT 12.0 9.7 - 13.0 sec INR 1.11 0.90 - 1.20 [facility] Comment: Interpretive data Oral anticoagulant therapeutic ranges: Venous thromboembolism prophylaxis or treatment: 2.0-3.0 CARDIOLOGY Standard range: 2.0-3.0 High-intensity range: 2.5-3.5 Refer to indication-specific guidelines for appropriate target ranges for prosthetic heart valve replacement. Current interpretive data was last revised on 2019. Blood 03/04/2024 12:3 9 AM CDT 03/04/2024 12:59 AM CDT Trini Bahena MD LAB BLOOD ORDERABLES Fin al Result [facility] [place] [address] * Comprehensive metabolic panel (03/04/2024 12:39 AM CDT) Sodium 139 135 - 145 mmol/L Potassium, pl 3.7 3.3 - 4.9 mmol/L [facility] Chloride 105 97 - 110 mmol/L [facility] CO2 26 22 - 32 mmol/L [facility] Anion gap 8 2 - 15 mmol/L [facility] BUN 9 6 - 25 mg/dL [facility] Creatinine 1.00 0.60 - 1.10 mg/dL [facility] Glucose 111 70 - 199 mg/dL [facility] Comment: Interpretive Data Fasting glucose >/= [...] classification and Diagnosis of Diabetes Diabetes Care 2022; 46: S19-S40. Current interpretive data was last revised 2022. Calcium 9.0 8.5 - 10.3 mg/dL [facility] Bilirubin, total 0.3 0.1 - 1.2 mg/dL [facility] Protein, pl 6.8 6.5 - 8.5 g/dL [facility] Albumin 4.0 3.5 - 5.0 g/dL [facility] Alk phos 104 40 - 130 Units/L [facility] ALT 17 7 - 45 Units/L [facility] AST 25 10 - 45 Units/L [facility] Blood 03/04/2024 12:3 9 AM CDT 03/04/2024 12:59 AM CDT Trini Bahena MD LAB BLOOD ORDERABLES Fin al Result Performing Organization Address City/[facility]/ZIP Co de Phone Number [facility] [place] [address] * (ABNORMAL) CBC with auto differential (03/04/2024 12:39 AM CDT) [facility] WBC 9.7 3.8 - 9.9 K/cumm Hgb 11.4(L) 11.9 - 15.5 g/dL [facility] Hct 36.0 35.6 - 45.5 % [facility] Plt 382 150 - 400 K/cumm [facility] MPV 9.7 9.1 - 12.3 fL [facility] RBC 3.86(L) 3.90 - 5.20 M/cumm [facility] MCV 93.3 81.3 - 96.4 fL [facility] MCH 29.5 27.1 - 33.3 pg [facility] MCHC 31.7(L) 32.3 - 35.7 g/dL [facility] RDW CV 13.2 11.1 - 14.9 % [facility] RDW SD 45.1 35.7 - 48.1 fL [facility] NRBC abs 0.00 0.00 - 0.01 K/cumm [facility] Blood 03/04/2024 12:3 9 AM CDT 03/04/2024 12:59 AM CDT Trini Bahena MD LAB BLOOD ORDERABLES Fin al Result Performing Organization Address City/[facility]/ZIP Co de Phone Number [facility] [place] [address] * XR Pelvis 1 or 2 Views (03/04/2024 12:29 AM CDT) Anatomical Region Laterality Modality Body, Pelvis N/A Computed Radiogr aphy 03/04/2024 3:37 AM CDT Impressions 03/04/2024 10:00 AM CDT No acute displaced pelvic fracture on the single frontal radiograph of the pelvis. ??Multiple radiodense foreign bodies project over the left hemipelvis. Multiple staple lines over the abdomen. Dictated by: Lucian Marmolejo MD The radiology attending physician has personally reviewed this study, and had reviewed and/or edited this written report and agrees with it. Electronically signed by: Gildardo Ho M.D. Narrative 03/04/2024 10:00 AM CDT EXAMINATION: XR PELVIS 1 OR 2 VIEWS HISTORY: ??Trauma COMPARISON: None available Procedure Note Gildardo Ho MD - 03/04/2024 EXAMINATION: XR PELVIS 1 OR 2 VIEWS HISTORY: Trauma COMPARISON: None available IMPRESSION: No acute displaced pelvic fracture on the single frontal radiograph of the pelvis. Multiple radiodense foreign bodies project over the left hemipelvis. Multiple staple lines over the abdomen. Dictated by: Lucian Marmolejo MD The radiology attending physician has personally reviewed this study, and had reviewed and/or edited this written report and agrees with it. Electronically signed by: Gildardo Ho M.D. Trini Bahena MD IM XR PROCEDURES Final Result * XR Outside Reference (03/03/2024 11:04 PM CDT) Impressions [facility] - 03/03/2024 11:04 PM CDT These images are for Reference purposes only and have not been reviewed by [facility] Radiology. ??There will be no report generated by a [facility] Radiologist. Narrative [facility] - 03/03/2024 11:04 PM CDT EXAMINATION: ??Images For Reference Purposes Only us Patricia Mohamud MD IMG XR PROCEDURES Fin al Result Performing Organization Address [facility] de Phone Number [email or web address] * XR Outside Reference (03/03/2024 11:03 PM CDT) Impressions [email or web address] - 03/03/2024 11:03 PM CDT These images are for Reference purposes only and have not been reviewed by [facility] Radiology. ??There will be no report generated by a [facility] Radiologist. Narrative [facility] - 03/03/2024 11:03 PM CDT EXAMINATION: ??Images For Reference Purposes Only Patricia Mohamud MD IMG XR PROCEDURES Fin al Result Performing Organization Address [facility] de Phone Number [email or web address] documented in this encounter Visit Diagnoses Diagnosis Closed fracture of multiple ribs of left side, initial encounter- Primary Closed fracture of multiple ribs of left side, initial encounter Acute pain Positive urine drug screen Anxiety Anxiety state, unspecified Discharge planning issues Closed fracture of multiple ribs of left side, initial encounter documented in this encounter Admitting Diagnoses Diagnosis Closed fracture of multiple ribs of left side, initial encounter documented in this encounter Administered Medications Inactive Administered Medications - up to 3 most recent administrations Medication Order MAR Action Action Date Dose Rate Site acetaminophen (TYLENOL) tablet 1,000 mg 1,000 mg, oral, Every 6 hours, First dose (after last modification) on Sat03/05/24 at 1300, Indications: PainIndications:Pain Given 03/05/2024 2:33 PM CDT 1,000 mg acetaminophen (TYLENOL) tablet 650 mg 650 mg, oral, Every 6 hours, First dose on Sat03/04/24 at 1900, Indications: PainIndications:Pain Given 03/05/2024 6:43 AM CDT 650 mg Given 03/05/2024 12:12 AM CDT 650 mg Given 03/04/2024 6:25 PM CDT 650 mg Carrier Fluids for Secondary Infusion - 0.9% Sodium Chloride 30 mL, intravenous, As needed, For priming tubing and/or flushing, Starting on Sat03/04/24 at 1816, 0-250 ml/hr to flush line after IV infusions when no maintenance IV ordered. Infuse 30mL at the same rate as the secondary infusion. Run as primary IV, not intended for KVO. clonazePAM (KlonoPIN) disintegrating tablet 0.25 mg 0.25 mg, oral, 3 times daily PRN, anxiety, Starting on Sat03/05/24 at 1122 Given 03/05/2024 11:46 AM CDT 0.25 mg clonazePAM (KlonoPIN) tablet 0.5 mg 0.5 mg, oral, Once, On Sat03/04/24 at 0728, For 1 dose Given 03/04/2024 7:33 AM CDT 0.5 mg cyclobenzaprine (FLEXERIL) tablet 10 mg 10 mg, oral, Once, On Sat03/04/24 at 0728, For 1 dose Given 03/04/2024 7:33 AM CDT 10 mg diphenhydrAMINE (BENADRYL) tab/cap 25 mg 25 mg, oral, Every 4 hours PRN, allergies, For potential opioid allergy, Starting on Sat03/04/24 at 1816 enoxaparin (LOVENOX) syringe 30 mg 30 mg, subcutaneous, Every 12 hours scheduled, First dose on Sat03/04/24 at 2100, Indications: Deep Vein Thrombosis PreventionIndications:Deep Vein Thrombosis Prevention Given 03/04/2024 9:31 PM CDT 30 mg Left Lower Abdomen heparin 5,000 unit/mL injection 5,000 Units 5,000 Units, subcutaneous, Every 12 hours scheduled, First dose on Sat03/05/24 at 0900, Indications: Deep Vein Thrombosis PreventionIndications:Deep Vein Thrombosis Prevention Given 03/05/2024 8:53 AM CDT 5,000 Units Left Lower Abdomen HYDROmorphone (DILAUDID) injection 0.5 mg 0.5 mg, intravenous, Administer over 2 Minutes, Every 2 hours PRN, 1st line for pain, Starting on Sat03/04/24 at 0605 Given 03/04/2024 6:35 AM CDT 0.5 mg HYDROmorphone (DILAUDID) injection 1 mg 1 mg, intravenous, Administer over 2 Minutes, Every 2 hours PRN, 1st line for pain, Starting on Sat03/04/24 at 0801 Given 03/04/2024 1:10 PM CDT 1 mg Given 03/04/2024 11:20 AM CDT 1 mg Given 03/04/2024 8:09 AM CDT 1 mg ioversoL (OPTIRAY 350) syringe 75 mL 75 mL, intravenous, Once in imaging, contrast, Starting on Sat03/04/24 at 0222, For 1 dose Contrast Given 03/04/2024 2:34 AM CDT 75 mL lidocaine (ASPERCREME) 4 % patch 1 patch 1 patch, transdermal, Administer over 12 Hours, Every 24 hours, First dose on Sat03/05/24 at 0915, Apply to affected area: chest Medication Applied 03/05/2024 8:52 AM CDT 1 patch Other (Comment) methocarbamoL (ROBAXIN) tablet 500 mg 500 mg, oral, 3 times daily, First dose on Sat03/05/24 at 0915 Given 03/05/2024 4:19 PM CDT 500 mg Given 03/05/2024 8:53 AM CDT 500 mg morphine injection 4 mg 4 mg, intravenous, Administer over 4 Minutes, Once, On Sat03/04/24 at 0012, For 1 dose Given 03/04/2024 12:30 AM CDT 4 mg morphine injection 4 mg 4 mg, intravenous, Administer over 4 Minutes, Every 3 hours PRN, 1st line for pain, Starting on Sat03/04/24 at 0402 Given 03/04/2024 4:13 AM CDT 4 mg morphine injection 4 mg 4 mg, intravenous, Administer over 4 Minutes, Once, On Sat03/04/24 at 1756, For 1 dose Given 03/04/2024 6:25 PM CDT 4 mg oxyCODONE (ROXICODONE) tablet 2.5 mg 2.5 mg, oral, Every 4 hours PRN, 1st line for pain, Hives to Codiene- begin with 2.5mg dose of oxy, Starting on Sat03/04/24 at 1816, Indications: PainIndications:Pain Given 03/04/2024 10:26 PM CDT 2.5 mg Given 03/04/2024 6:25 PM CDT 2.5 mg oxyCODONE (ROXICODONE) tablet 5 mg 5 mg, oral, Every 4 hours PRN, 1st line for pain, Hives to Codiene- begin with 2.5mg dose of oxy, Starting on Sat03/05/24 at 0034, Indications: PainIndications:Pain Given 03/05/2024 2:34 PM CDT 5 mg Given 03/05/2024 9:00 AM CDT 5 mg Given 03/05/2024 4:23 AM CDT 5 mg oxyCODONE (ROXICODONE) tablet 5 mg 5 mg, oral, Once, On Sat03/05/24 at 0115, For 1 dose, Indications: PainIndications:Pain Given 03/05/2024 12:39 AM CDT 5 mg senna-docusate (PERICOLACE) 8.6-50 mg per tablet 1 tablet 1 tablet, oral, Daily, First dose on Sat03/04/24 at 1900, Hold for diarrhea., Indications: constipationIndications:constipation Given 03/05/2024 8:53 AM CDT 1 table t Given 03/04/2024 6:25 PM CDT 1 tablet sodium chloride 0.9% flush 0.5-20 mL 0.5-20 mL, intra-catheter, Every 8 hours scheduled, First dose on Sat03/04/24 at 2200, Flush volume based on line type and size. Given 03/05/2024 2:34 PM CDT 10 mL Given 03/05/2024 6:43 AM CDT 10 mL Given 03/04/2024 9:31 PM CDT 10 mL sodium chloride 0.9% flush 0.5-20 mL 0.5-20 mL, intra-catheter, As needed, line care, Starting on Sat03/04/24 at 1816, Flush volume based on line type and size. Flush before and after each use. documented in this encounter Discontinued Medications Medication Sig Discontinue Reason Start Date End Da te cyclobenzaprine (FLEXERIL) 10 mg tabletIndications:Musc le Spasm Take 10 mg by mouth 2 (two) times a day Stop Taking at Discharge 03/05/2024 lidocaine (LIDODERM) 5 % Place 1 patch on the skin daily Remove & discard patch within 12 hours or as directed by MD. Stop Taking at Discharge 07/02/2021 03/05/2024 documented as of this encounter Active and Recently Administered Medications Times are shown in CDT. Scheduled Medication Order 03/03/2024 03/04/2024 03/05/2024 acetaminophen (TYLENOL) tablet 1,000 mg 1,000 mg, oral, Every 6 hours, First dose (after last modification) on Sat03/05/24 at 1300, Indications: Pain 1433 (Given - Provid er: Madalyn Renae RN) acetaminophen (TYLENOL) tablet 650 mg (CANCELED) 650 mg, oral, Every 6 hours, First dose on Sat03/04/24 at 1900, Indications: Pain 1825 (Given - Provider: Madalyn Renae RN) 0012 (Given - Provider: Nadine Segal RN)0643 (Given - Provider: Nadine Segal RN) clonazePAM (KlonoPIN) tablet 0.5 mg (COMPLETED) 0.5 mg, oral, Once, On Sat03/04/24 at 0728, For 1 dose 0733 (Given - Provider: Charley Chao RN) cyclobenzaprine (FLEXERIL) tablet 10 mg (COMPLETED) 10 mg, oral, Once, On Sat03/04/24 at 0728, For 1 dose 0733 (Given - Provider: Charley Chao RN) enoxaparin (LOVENOX) syringe 30 mg (CANCELED) 30 mg, subcutaneous, Every 12 hours scheduled, First dose on Sat03/04/24 at 2100, Indications: Deep Vein Thrombosis Prevention 2131 (Given - Provider: Nadine Segal RN) heparin 5,000 unit/mL injection 5,000 Units 5,000 Units, subcutaneous, Every 12 hours scheduled, First dose on Sat03/05/24 at 0900, Indications: Deep Vein Thrombosis Prevention 0853 (Given - Provid er: Madalyn Renae RN) lidocaine (ASPERCREME) 4 % patch 1 patch 1 patch, transdermal, Administer over 12 Hours, Every 24 hours, First dose on Sat03/05/24 at 0915, Apply to affected area: chest 0852 (Medication Phuong lied - Provider: Madalyn Renae RN)1718 (Due: Medication Removed - Provider: Automatic Discharge Provider - Comment: Time automatically adjusted from order being discontinued) methocarbamoL (ROBAXIN) tablet 500 mg 500 mg, oral, 3 times daily, First dose on [place] 03/05/24 at 0915 0853 (Given - Provid er: Madalyn Renae RN)1619 (Given - Provider: Madalyn Renae RN) morphine injection 4 mg (COMPLETED) 4 mg, intravenous, Administer over 4 Minutes, Once, On Sat03/04/24 at 0012, For 1 dose 0030 (Given - Provider: Yelitza Rubio RN) morphine injection 4 mg (COMPLETED) 4 mg, intravenous, Administer over 4 Minutes, Once, On Sat03/04/24 at 1756, For 1 dose 1825 (Given - Provider: Madalyn Renae RN) oxyCODONE (ROXICODONE) tablet 5 mg (COMPLETED) 5 mg, oral, Once, On [place] 03/05/24 at 0115, For 1 dose, Indications: Pain 0039 (Given - Provid er: Nadine Segal RN) senna-docusate (PERICOLACE) 8.6-50 mg per tablet 1 tablet 1 tablet, oral, Daily, First dose on Sat03/04/24 at 1900, Hold for diarrhea., Indications: constipation 182 (Given - Provider: Madalyn Renae RN) 0853 (Given - Provider: Madalyn Renae RN) sodium chloride 0.9% flush 0.5-20 mL 0.5-20 mL, intra-catheter, Every 8 hours scheduled, First dose on Sat03/04/24 at 2200, Flush volume based on line type and size. 213 (Given - Provider: Nadine Segal RN) 0643 (Given - Provider: Nadine Segal RN)1434 (Given - Provider: Madalyn Renae RN) PRN Medication Order 03/03/2024 03/04/2024 03/05/2024 Carrier Fluids for Secondary Infusion - 0.9% Sodium Chloride 30 mL, intravenous, As needed, For priming tubing and/or flushing, Starting on Sat03/04/24 at 1816, 0-250 ml/hr to flush line after IV infusions when no maintenance IV ordered. Infuse 30mL at the same rate as the secondary infusion. Run as primary IV, not intended for KVO. clonazePAM (KlonoPIN) disintegrating tablet 0.25 mg 0.25 mg, oral, 3 times daily PRN, anxiety, Starting on [place] 03/05/24 at 1122 1146 (Given - Provid er: Madalyn Renae RN) diphenhydrAMINE (BENADRYL) tab/cap 25 mg 25 mg, oral, Every 4 hours PRN, allergies, For potential opioid allergy, Starting on Sat03/04/24 at 1816 HYDROmorphone (DILAUDID) injection 0.5 mg (CANCELED) 0.5 mg, intravenous, Administer over 2 Minutes, Every 2 hours PRN, 1st line for pain, Starting on Sat03/04/24 at 0605 0635 (Given - Provider: Charley Chao RN) HYDROmorphone (DILAUDID) injection 1 mg (CANCELED) 1 mg, intravenous, Administer over 2 Minutes, Every 2 hours PRN, 1st line for pain, Starting on Sat03/04/24 at 0801 0809 (Given - Provider: Charley Chao RN)1120 (Given - Provider: Charley Chao RN)1310 (Given - Provider: Charley Chao RN) ioversoL (OPTIRAY 350) syringe 75 mL (COMPLETED) 75 mL, intravenous, Once in imaging, contrast, Starting on Sat03/04/24 at 0222, For 1 dose 0234 (Contrast Given - Provider: Kosta Carmichael, RT) morphine injection 4 mg (CANCELED) 4 mg, intravenous, Administer over 4 Minutes, Every 3 hours PRN, 1st line for pain, Starting on Sat03/04/24 at 0402 0413 (Given - Provider: Yelitza Rubio RN) oxyCODONE (ROXICODONE) tablet 2.5 mg (CANCELED) 2.5 mg, oral, Every 4 hours PRN, 1st line for pain, Hives to Codiene- begin with 2.5mg dose of oxy, Starting on Sat03/04/24 at 1816, Indications: Pain 1825 (Given - Provider: Madalyn Renae, KAT)2226 (Given - Provider: Nadine Segal RN) oxyCODONE (ROXICODONE) tablet 5 mg 5 mg, oral, Every 4 hours PRN, 1st line for pain, Hives to Codiene- begin with 2.5mg dose of oxy, Starting on [place] 03/05/24 at 0034, Indications: Pain 0423 (Given - Provid er: Nadine Segal RN)0900 (Given - Provider: Madalyn Renae, KAT)1434 (Given - Provider: Madalyn Renae RN) sodium chloride 0.9% flush 0.5-20 mL 0.5-20 mL, intra-catheter, As needed, line care, Starting on Sat03/04/24 at 1816, Flush volume based on line type and size. Flush before and after each use. documented in this encounter Orders Medications Ordered That Guy ht Not Have Been Administered Count Last Ordered Date First Ordered Date oxyCODONE (ROXICODONE) tablet 2.5 mg 1 02/10 Carrier Fluids for Secondary Infusion - 0.9% Sodium Chloride 1 03/04/2024 diphenhydrAMINE (BENADRYL) tab/cap 25 mg 1 03/04/2024 sodium chloride 0.9% flush 0.5-20 mL 1 02/10 Diet Count Last Ordered Date First Orde red Date ADULT DISCHARGE DIET 1 03/05/2024 Nursing Count Last Ordered Date First Orde red Date DISCHARGE ACTIVITY 2 03/05/2024 DISCHARGE CALL PROVIDER 6 03/05/2024 DISCHARGE DRESSING 3 03/05/2024 DISCHARGE INSTRUCTIONS 2 03/05/2024 FOLLOW UP WITH DEPARTMENT 1 03/05/2024 INCENTIVE SPIROMETRY NURSING 2 03/04/2024 Consult Count Last Ordered Date First Orde red Date AWARE CONSULT 1 03/05/2024 CONSULT TO CHEMICAL DEPENDENCY 1 03/05/2024 IP CONSULT TO NUTRITION SERVICES 03/04/20 IP CONSULT TO SOCIAL WORK 1 03/03/2024 Admission Count Last Ordered Date First Orde red Date ADMIT TO INPATIENT 1 03/04/2024 Discharge Count Last Ordered Date First Orde red Date DISCHARGE PATIENT 1 03/05/2024 documented in this encounter Care Teams Shuttler Relationship Specialty Start Date End Date Lazarus Albert MD [address] [facility] [place] [address] PCP - General 09/25/19 03/04/24 Fernando Chavez MD [address] [id number] PCP - General Family Medicine 03/05/24 documented as of this encounter
--- OUTSIDE RECORDS SUMMARY | 2024-08-08 16:02 | XMS_ITS | Encounter Summary ---
Author Organization [facility] Healthcare Address [address] [place] [id number] Care Team Providers Care Aquaculture And Fisheries Professor Name Role Phone Fernando Chavez MD Primary Care Provider [phone] Reason for Visit * Reason Onset Date Comments Scheduling Appointments 03/30/2024 Encounter Details Date Type Department Care Team (Late st Contact Info) Description 03/30/2024 [facility]phone [facility] [address] [place], [place] [id number] Ana Ko MA Scheduling Appointments Social History Tobacco Use Types [...] How often do you attend chur or sabianism services? 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 documented in this encounter Plan of Treatment Not on file documented as of this encounter Visit Diagnoses Not on filedocumented in this encounter Care Teams Aquaculture And Fisheries Professor Relationship Specialty Start Date End Date Fernando Chavez MD [address] [place] [id number] PCP - General Family Medicine 03/05/24 documented as of this encounter
--- OUTSIDE RECORDS SUMMARY | 2024-08-08 16:03 | XMS_ITS | Encounter Summary ---
Author Organization [facility] Healthcare Address [address] [place] [address] Care Team Providers Care Banana Expert Name Role Phone Lazarus Albert MD Primary Care Provider [phone] Reason for Visit * Reason Comments Abdominal Pain Encounter Details Date Type Department Care Team (Late st Contact Info) Description 01/13/2021 9:29 PM CDT - 01/26/2021 10:55 AM CDT Hospital Encounter [address] [address] [place] [id number] [place] [address] [place] [address] [place] [address] [place] [address] [place] [address] [place] [id number] [facility] [address] [place] [address] [place] [address] [place] [address] [place] [id number] [address] Chest pressure (Primary Dx); Elevated troponin; Abdominal pain; Hypokalemia; Suicidal ideation Discharge Disposition: Discharge to home or self care Social History Tobacco Use Types Packs/Day Years Used Date Smoking Tobacco: Former Cigarettes 2 26.6 1 982 - 03/19/2008 E-cigarettes Smokeless Tobacco: Never Alcohol Use Standard Drinks/Week Comments Yes 0 (1 standard drink = 0.6 oz pur e alcohol) rarely AUDIT-C Answer Date Recorded Q1: How often do you have a drink containing alc ohol? Never 01/14/2021 Average Number of Drinks Not on file 021 Q3: How often do you have si x or more drinks on one occasion? 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 Gender Identity Not on file Sexual Orientation Not on file documented as of this encounter Last Filed Vital Signs Vital Sign Reading Time Taken Comments Blood Pressure 109/60 01/26/2021 7:27 AM CDT Pulse 88 01/26/2021 7:27 AM CDT Temperature 36.5 ??C (97.7 ??F) 01/26/2021 7:27 AM CD T Respiratory Rate 18 01/26/2021 7:27 AM CDT Oxygen Saturation 100% 01/26/2021 7:27 AM CDT Inhaled Oxygen Concentration - - Weight 45 kg (99 lb 3.2 oz) 01/14/2021 8:20 AM C DT Height 165.1 cm (5' 5 ) 01/13/2021 7:31 PM CDT Body Mass Index 16.51 01/13/2021 7:31 PM CDT documented in this encounter Discharge Diagnoses Diagnosis Poisoning by 4-aminophenol derivatives, intentional self-harm, initial encounter (HCC) - POISONING BY 4-AMINOPHENOL DERIVATIVES, INTENTIONAL SELF-HARM, INITIAL ENCOUNTER Unspecified severe protein-calorie malnutrition (HCC) - UNSPECIFIED SEVERE PROTEIN-CALORIE MALNUTRITION Acute kidney failure, unspecified (HCC) - ACUTE KIDNEY FAILURE, UNSPECIFIED Acute kidney failure, unspecified Acidosis - ACIDOSIS Brief psychotic disorder (HCC) - BRIEF PSYCHOTIC DISORDER Other and unspecified reactive psychosis Major depressive disorder, recurrent, severe with psychotic symptoms (HCC) - MAJOR DEPRESSIVE DISORDER, RECURRENT, SEVERE WITH PSYCHOTIC SYMPTOMS Body mass index (BMI) 19.9 or less, adult - BODY MASS INDEX [BMI] 19.9 OR LESS, ADULT Other chest pain - OTHER CHEST PAIN Anemia, unspecified - ANEMIA, UNSPECIFIED Hyperlipidemia, unspecified - HYPERLIPIDEMIA, UNSPECIFIED Hypokalemia - HYPOKALEMIA Hypopotassemia Alcohol abuse, uncomplicated - ALCOHOL ABUSE, UNCOMPLICATED Generalized anxiety disorder - GENERALIZED ANXIETY DISORDER Reaction to severe stress, unspecified - REACTION TO SEVERE STRESS, UNSPECIFIED Other chronic pain - OTHER CHRONIC PAIN Essential (primary) hypertension - ESSENTIAL (PRIMARY) HYPERTENSION Unspecified essential hypertension Abdominal aortic aneurysm, without rupture - ABDOMINAL AORTIC ANEURYSM, WITHOUT RUPTURE Inflammatory liver disease, unspecified - INFLAMMATORY LIVER DISEASE, UNSPECIFIED Exposure to other specified factors, initial encounter - EXPOSURE TO OTHER SPECIFIED FACTORS, INITIAL ENCOUNTER Other place in other non-institutional residence as the place of occurrence of the external cause - OTHER PLACE IN OTHER NON-INSTITUTIONAL RESIDENCE THE PLACE OF OCCURRENCE OF THE EXTERNAL CAUSE Female pelvic inflammatory disease, unspecified - FEMALE PELVIC INFLAMMATORY DISEASE, UNSPECIFIED detention (current) use of aspirin - INTERMEDIATE (CURRENT) USE OF ASPIRIN detention (current) use of bisphosphonates - 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 WORKER (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) USE OF BISPHOSPHONATES Other supervisor intermediates (current) drug therapy - OTHER INTERMEDIATE (CURRENT) DRUG THERAPY Acquired absence of both cervix and uterus - ACQUIRED ABSENCE OF BOTH CERVIX AND UTERUS Personal history of other venous thrombosis and embolism - PERSONAL HISTORY OF OTHER VENOUS THROMBOSIS AND EMBOLISM Personal history of urinary calculi - PERSONAL HISTORY OF URINARY CALCULI Personal history of nicotine dependence - PERSONAL HISTORY OF NICOTINE DEPENDENCE Family history of stroke - FAMILY HISTORY OF STROKE Family history of stroke (cerebrovascular) Family history of malignant neoplasm of prostate - FAMILY HISTORY OF MALIGNANT NEOPLASM OF PROSTATE Family history of malignant neoplasm of breast - FAMILY HISTORY OF MALIGNANT NEOPLASM OF BREAST Family history of ischemic heart disease and other diseases of the circulatory system - FAMILY HISTORY OF ISCHEMIC HEART DISEASE AND OTHER DISEASES OF THE CIRCULATORY SYSTEM Family history of diabetes mellitus - FAMILY HISTORY OF DIABETES MELLITUS Contact with and (suspected) exposure to covid-19 - CONTACT WITH AND (SUSPECTED) EXPOSURE TO COVID-19 documented in this encounter Discharge Summaries * Rachid Shaw MD - 01/26/2021 8:24 AM CDT Inpatient Discharge Summary BRIEF OVERVIEW Admitting Provider: Ana Ellis MD Discharge Provider: Rachid Shaw MD Primary Care Physician at Discharge: Lazarus Albert MD [phone] Admission Date: 01/13/2021 Discharge Date: 01/26/2021 Primary Discharge Diagnosis: ??---Acute on Chronic??Abdominal pain, sec to constipation or obstipation. Secondary Discharge Diagnoses: ---Chest pressure with abnormal??troponins: 01/16 Lexiscan stress test neg.01/17 TTE showed no focal wall motion abnormalities.Likely non cardiac CP. ---Elevated LFTs??with tylenol??overdose ---JHOANA with NSAID overuse.01/16 Renal US showed chronic renal parenchymal disease. ---??Bandemia:Likely from stress reaction. ---High gap acidosis ---??Hypokalemia ---Hypo phosphotemia ---Mild normocytic anemia ??---MRSA Nasal 01/18 and Urine colonization 01/14 : ---??Anxiety/Depression/ Sucidal thoughts --- History of DVT ---??Frailty, cachexia, and malnutrition ---Nonobstructing renal calculi CONSULTS: Jorje Osorio MD Katyal, Alok, MD Patel, Parimal B., MD DETAILS OF HOSPITAL STAY Presenting Problem/History of Present Illness: Abdominal pain Please see H&P for the details. Subjective: Still with abdominal pain, which is chronic. Little nausea+. No vomiting. Physical exam at discharge: General: Lying in bed,awake,alert,on RA,NAD,cachectic. SHEENT:Skin warm,dry,no rashes. No icterus,no cyanosis,no pallor,EOMI. Neck:Supple Respi:CTA fredi Cardio:RRR,no murmur GI:Abdomen soft,bowel sounds +, midline surgical scar+,diffuse mild tenderness+, not distended. Extre:No edema,no cyanosis,no pallor Neuro:Non focal Psych:Mood/Affect normal.Behavior normal. Hospital Course: 55 y.o.WF pt with history of anxiety, DVT, endometriosis.presented to ED with a C/C of Right lower abdominal pain,nausea,vomiting for weeks. ?? All diagnoses are present on admission unless otherwise stated. ?? Principal Problem: ??---Chronic??Abdominal pain: 01/13 CT Abd showed constipation or obstipation.??Received Miralax, Pericolace. Has had BMs. But still with abdominal pain, which is chronic. Active problems: ?? ---Chest pressure with abnormal??troponins: Consulted Cardiology .01/16 Lexiscan stress test neg. 01/17 TTE showed no focal wall motion abnormalities. EF 70%,Grade 1 diastolic dysfunction. No intervention planned at this time. Received Lopressor, aspirin, Lipitor and Cozaar per cardiology.D/W Cardiology. Will D/C Lopressor. Monitored on Telemetry ---Elevated LFTs ??with tylenol??overdose :?? S/P NAC drip.?? Tylenol level normal on 01/14. ---JHOANA with NSAID overuse. Consulted Nephrology. Resolved with IVF 01/16 Renal US showed chronic renal parenchymal disease. ---??Bandemia:??CXR neg. 01/14 Blood cultures neg ??. 01/14 Urine culture grew ORSA.Pt asymptomatic, afebrile. Likely colonization. Leukocytosis resolved. ---High gap acidosis: Lactate normal.??S/P IVF. Resolved?? ---??Hypokalemia:Repleted, resolved. Mg normal.. ---Hypo phosphotemia: Repleted, resolved. ---Mild normocytic anemia: ??---MRSA nasal 01/18 and Urine colonization 01/14 : ---??Anxiety/Depression/Sucidal thoughts: Consulted Psych . Recommended in patient psych admission . Completed ??Affidavit. --- History of DVT: Not on oral anticoagulants outpatient ---H/O HLD: Continued Lipitor. ---H/O Trigeminal Neuralgia: ---??Frailty, cachexia, and malnutrition: Received PT/OT,Ensure Enlive Supplements ---Nonobstructing renal calculi: Noted on CT Abd. ? Received DVT Prophylaxis with SQ Lovenox Code status: Full code D/W RN Pt was accepted to [facility] Will D/C pt to [facility] today Condition at the time of discharge:Stable. D/C time spent 35 min. Active Issues Requiring Follow-up: None Test Results Pending at Discharge: None Operative Procedures Performed: None Other Procedures: None Pertinent Test Results: Recent Labs Lab Units 01/26/21 0507 WBC K/cumm 8.6 HEMOGLOBIN g/dL 11.8* HEMATOCRIT % 37.7 PLATELETS K/cumm 352 Recent Labs Lab Units 01/26/21 0507 SODIUM mmol/L 137 POTASSIUM PLASMA mmol/L 3.8 CHLORIDE mmol/L 102 CO2 mmol/L 26 ANIONGAP mmol/L 9 GLUCOSE mg/dL 110 BUN SERUM mg/dL 6* CREATININE mg/dL 0.75 CALCIUM mg/dL 9.3 ALBUMIN g/dL 3.2* 01/13 ECG:SINUS TACHYCARDIA ST DEVIATION AND MODERATE T-WAVE ABNORMALITY, CONSIDER INFERIOR ISCHEMIA ABNORMAL ECG 01/16 NM MPI SPECT (Rest and/or Stress) Multiple Studies:1. Normal pharmacologic- stress and rest myocardial perfusion. 2. Normal left ventricular size and systolic function. 01/17 Transthoracic echocardiogram with complete 2D, M-Mode, and color Doppler examination:Normal left ventricular size. Normal left ventricular systolic function with no focal wall motion abnormalities. Left ventricular wall thickness upper limits of normal. Impaired diastolic relaxation Grade I. Ejection fraction is measured at 70 %. Normal structure of the mitral valve. Trivial regurgitation of the mitral valve. Normal structure of the tricuspid valve. Normal right ventricular systolic pressure. Estimated peak RVSP is 25 mmHg. Trivial regurgitation in the tricuspid valve. 01/13 XR Chest Pa Lateral 2 Vw:Hyperinflation of the lungs 01/13 CT Abdomen Pelvis WO Contrast:Findings compatible with constipation or obstipation. ??2. Nonobstructing renal calculi 01/16 US Retroperitoneal Complete:Slight increase in renal cortical echogenicity bilaterally, consistent with some degree of chronic renal parenchymal disease Discharge Details Pulse: 88 Resp: 18 BP: 109/60 Temp: 36.5 ??C (97.7 ??F) Weight: 45 kg (99 lb 3.2 oz) Discharge Disposition: [facility] pt psych unit Code Status at Discharge:Full code Discharge Instructions: Diet Instructions No diet restrictions recommended at time of discharge. Please call the Dietitian office with any diet related concerns . Activity: As tolerated Discharge Medications: Your medication list START taking these medications losartan 25 mg tablet Take 1 tablet (25 mg total) by mouth daily Commonly known as: COZAAR Start taking on: January 27, 2021 OLANZapine 10 mg disintegrating tablet Take 1 tablet (10 mg total) by mouth nightly Commonly known as: ZyPREXA ZYDIS Replaces: OLANZapine 2.5 mg tablet OLANZapine 5 mg disintegrating tablet Take 1 tablet (5 mg total) by mouth daily Commonly known as: ZyPREXA ZYDIS Start taking on: January 27, 2021 ondansetron ODT 4 mg disintegrating tablet Take 1 tablet (4 mg total) by mouth every 6 (six) hours as needed for nausea or vomiting Commonly known as: ZOFRAN-ODT CONTINUE taking these medications alendronate 70 mg tablet Commonly known as: FOSAMAX aspirin 81 mg enteric coated tablet Take 1 tablet (81 mg total) by mouth every other day atorvastatin 20 mg tablet Commonly known as: LIPITOR calcium carbonate-vitamin D3 1500 mg (600 mg elemental) -400 units per tablet Commonly known as: CALTRATE 600 + D clonazePAM 1 mg tablet Commonly known as: KlonoPIN clotrimazole-betamethasone cream Commonly known as: LOTRISONE Compazine 10 mg tablet Generic drug: prochlorperazine cyanocobalamin 1,000 mcg tablet Commonly known as: Vitamin B-12 cyclobenzaprine 10 mg tablet Commonly known as: FLEXERIL dicyclomine 10 mg capsule Commonly known as: BENTYL docusate sodium 100 mg capsule Commonly known as: COLACE ergocalciferol 50,000 unit capsule Commonly known as: VITAMIN D fluticasone propionate 50 mcg/actuation nasal spray Commonly known as: FLONASE folic acid 1 mg tablet Commonly known as: FOLVITE levocetirizine 5 mg tablet Commonly known as: XYZAL pantoprazole DR 40 mg EC tablet Commonly known as: PROTONIX polyethylene glycol 17 gram packet Commonly known as: MIRALAX tamsulosin 0.4 mg extended release capsule Commonly known as: FLOMAX traMADoL 50 mg tablet Commonly known as: ULTRAM STOP taking these medications acetaminophen 500 mg capsule HYDROcodone-acetaminophen 5-325 mg per tablet Commonly known as: NORCO LORazepam 0.5 mg tablet Commonly known as: ATIVAN OLANZapine 2.5 mg tablet Commonly known as: ZyPREXA Replaced by: OLANZapine 10 mg disintegrating tablet rizatriptan 10 mg tablet Commonly known as: MAXALT SUMAtriptan 100 mg tablet Commonly known as: IMITREX traZODone 150 mg tablet Commonly known as: DESYREL valACYclovir 1 gram tablet Commonly known as: VALTREX venlafaxine XR 75 mg 24 hr capsule Commonly known as: EFFEXOR-XR Outpatient Follow-Up: No future appointments. aRchid Shaw MD 01/26/2021 10:27 AM documented in this encounter Discharge Instructions * Discharge Instr - Diet* Ragini Schneider RD - 01/14/2021 11:44 AM CDT No diet restrictions recommended at time of discharge. Please call the Dietitian office with any diet related concerns . documented in this encounter Medications at Time of Discharge alendronate (FOSAMAX) 70 mg tabletIndications:P ost-Menopausal Osteoporosis Take 70 mg by mouth every 7 days Take in the morning with a full glass of water, on an empty stomach, and do not take anything else by mouth or lie down for the next 30 min. saturday atorvastatin (LIPITOR) 20 mg tablet Take 1 tablet (20 mg total) by mouth nightly 12/22/2020 calcium carbonate-vitamin D3 (CALTRATE 600 + D) 1500 mg (600 mg elemental) -400 units per tablet Take 1 tablet by mouth 2 (two) times a day 10/28/2020 clotrimazole-betame thasone (LOTRISONE) cream Apply 1 application topically daily 09/09/2019 dicyclomine (BENTYL) 10 mg capsuleIndications: Irritable Bowel Syndrome Take 10 mg by mouth 3 (three) times a day 08/30/2019 docusate sodium (COLACE) 100 mg capsuleIndications: constipation Take 100 mg by mouth daily fluticasone propionate (FLONASE) 50 mcg/actuation nasal spray Administer 2 sprays into each nostril daily ondansetron ODT (ZOFRAN-ODT) 4 mg disintegrating tabletIndications:N ausea and Vomiting Take 1 tablet (4 mg total) by mouth every 6 (six) hours as needed for nausea or vomiting 20 tablet 01/18/[address] (PROTONIX) 40 mg EC tablet Take 40 mg by mouth every morning 10/18/2020 polyethylene glycol (MIRALAX) 17 gram packetIndications:c onstipation Take 17 g by mouth daily with lunch aspirin 81 mg enteric coated tablet [The details of the medication are not available because there are pending changes by a home health clinician.] 04/28/2020 02/10/20 21 clonazePAM (KlonoPIN) 1 mg tabletIndications:P anic Disorder Take 1 mg by mouth 2 (two) times a day 09/09/2019 02/10/20 21 cyanocobalamin (Vitamin B-12) 1,000 mcg tablet Take 1,000 mcg by mouth daily 10/24/2020 07/02/20 21 cyclobenzaprine (FLEXERIL) 10 mg tabletIndications:M uscle Spasm Take 10 mg by mouth 2 (two) times a day 03/05/20 24 ergocalciferol (VITAMIN D) 50,000 unit capsuleIndications: Vitamin D Deficiency Take 50,000 Units by mouth once a week Saturday07/02/20 21 folic acid (FOLVITE) 1 mg tabletIndications:F olate Deficiency Take 1 mg by mouth daily with dinner 07/02/20 21 levocetirizine (XYZAL) 5 mg tablet Take 5 mg by mouth daily with lunch 02/10/20 21 losartan (COZAAR) 25 mg tablet Take 1 tablet (25 mg total) by mouth daily 30 tablet 3 01/27/2021 02/10/20 21 OLANZapine (ZyPREXA ZYDIS) 10 mg disintegrating tabletIndications:D epression Treatment Adjunct,Mixed Bipolar I Disorder Take 1 tablet (10 mg total) by mouth nightly 30 tablet 01/26/2021 02/21/20 21 OLANZapine (ZyPREXA ZYDIS) 5 mg disintegrating tabletIndications:D epression Treatment Adjunct,Mixed Bipolar I Disorder Take 1 tablet (5 mg total) by mouth daily 30 tablet 01/27/2021 02/21/20 21 prochlorperazine (Compazine) 10 mg tabletIndications:N ausea and Vomiting Take 10 mg by mouth every 6 (six) hours as needed for nausea or vomiting. Indications: nausea and vomiting 02/10/20 21 tamsulosin (FLOMAX) 0.4 mg extended release capsule tamsulosin 0.4 mg capsule TAKE 1 CAPSULE BY MOUTH EVERY DAY 05/10/2015 02/10/20 21 traMADoL (ULTRAM) 50 mg tablet 12/13/2020 02/10/20 21 documented as of this encounter Ordered Prescriptions Prescription Sig Dispense Quantity Refills Last Filled Start Date End Date ondansetron ODT (ZOFRAN-ODT) 4 mg disintegrating tabletIndications:Na usea and Vomiting Take 1 tablet (4 mg total) by mouth every 6 (six) hours as needed for nausea or vomiting 20 tablet 01/18/2021 OLANZapine (ZyPREXA ZYDIS) 5 mg disintegrating tabletIndications:De pression Treatment Adjunct,Mixed Bipolar I Disorder Take 1 tablet (5 mg total) by mouth daily 30 tablet 01/27/2021 1 OLANZapine (ZyPREXA ZYDIS) 10 mg disintegrating tabletIndications:De pression Treatment Adjunct,Mixed Bipolar I Disorder Take 1 tablet (10 mg total) by mouth nightly 30 tablet 01/26/2021 1 losartan (COZAAR) 25 mg tablet Take 1 tablet (25 mg total) by mouth daily 30 tablet 3 01/27/2021 1 metoprolol tartrate (LOPRESSOR) 25 mg immediate release tablet Take 1 tablet (25 mg total) by mouth 2 (two) times a day 60 tablet 11 01/18/2021 1 documented in this encounter Discharge Disposition Disposition Code Departure Means Destination Discharge to home or self care [facility] ([place], [place]) documented in this encounter Progress Notes * Jorje Osorio MD - 01/26/2021 10:55 AM CDT Nephrology Progress Note [facility] SUBJECTIVE Renal fn is stable. Agitation varies, some chest tightness off and on, clinically non cardiac. All labs reviewed. Overall clinically unchanged. Some psych issues still need resolved. Eager to go home, accepted at [facility]. OBJECTIVE Vitals: Vitals: 01/25/21 1528 01/26/21 0028 01/26/21 0424 01/26/21 0727 BP: 111/71 93/57 113/74 109/60 BP Location: Right arm Right arm Left arm Right arm Patient Position: Sitting Lying Lying Sitting Pulse: 84 67 82 88 Resp: 18 18 18 18 Temp: 36.5 ??C (97.7 ??F) 36.7 ??C (98.1 ??F) 36.6 ??C (97.9 ??F) 36.5 ??C (97.7 ??F) TempSrc: Oral Oral Oral Oral SpO2: 100% 100% 100% 100% Weight: Height: Intake/Output Summary (Last 24 hours) at 01/26/2021 1849 Last data filed at 01/26/2021 0710 Gross per 24 hour Intake 580 ml Output -- Net 580 ml REVIEW OF SYSTEMS Review of Systems Constitutional: Negative. HENT: Negative. Eyes: Negative. Respiratory: Negative. Cardiovascular: Negative. Gastrointestinal: Negative. Genitourinary: Negative. Musculoskeletal: Negative. Skin: Negative. Allergic/Immunologic: Negative. Hematological: Negative. All other systems reviewed and are negative. PHYSICAL EXAM Physical Exam Constitutional: Appears well-developed. HENT: wnl Head: Normocephalic. Eyes: Pupils are equal, round, and reactive to light. Neck: Normal range of motion. Neck supple. Cardiovascular: Normal rate. Pulmonary/Chest: Effort normal and breath sounds normal. Abdominal: Soft. Musculoskeletal: Normal range of motion. Neurological: Alert, oriented. Skin: Skin is warm. Nursing note and vitals reviewed. MEDICATIONS No current facility-administered medications for this encounter. Current Outpatient Medications: ??? tamsulosin (FLOMAX) 0.4 mg extended release capsule, tamsulosin 0.4 mg capsule TAKE 1 CAPSULE BY MOUTH EVERY DAY, Disp: , Rfl: ??? alendronate (FOSAMAX) 70 mg tablet, Take 70 mg by mouth every 7 days Take in the morning with afull glass of water, on an empty stomach, and do not take anything else by mouth or lie down for the next 30 min. saturday, Disp: , Rfl: ??? aspirin 81 mg enteric coated tablet, Take 1 tablet (81 mg total) by mouth every other day (Patient taking differently: Take 1 tablet by mouth every other day. Indications: prevention of thrombosis), Disp: , Rfl: ??? atorvastatin (LIPITOR) 20 mg tablet, , Disp: , Rfl: ??? calcium carbonate-vitamin D3 (CALTRATE 600 + D) 1500 mg (600 mg elemental) - 400 units per tablet, TAKE 1 TABLET BY MOUTH TWICE A DAY DIRECTED, Disp: , Rfl: ??? clonazePAM (KlonoPIN) 1 mg tablet, Take 1 mg by mouth 2 (two) times a day , Disp: , Rfl: ??? clotrimazole-betamethasone (LOTRISONE) cream, Apply topically daily as needed , Disp: , Rfl: ??? cyanocobalamin (Vitamin B-12) 1,000 mcg tablet, Take 1,000 mcg by mouth daily, Disp: , Rfl: ??? cyclobenzaprine (FLEXERIL) 10 mg tablet, Take 10 mg by mouth 2 (two) times a day , Disp: , Rfl: ??? dicyclomine (BENTYL) 10 mg capsule, Take 10 mg by mouth 3 (three) times a day , Disp: , Rfl: ??? docusate sodium (COLACE) 100 mg capsule, Take 100 mg by mouth daily with lunch , Disp: , Rfl: ??? ergocalciferol (VITAMIN D) 50,000 unit capsule, Take 50,000 Units by mouth once a week SATURDAY, Disp: , Rfl: ??? fluticasone propionate (FLONASE) 50 mcg/actuation nasal spray, fluticasone propionate 50 mcg/actuation nasal spray,suspension SPRAY 2 SPRAYS IN EACH NOSTRIL ONCE DAILY, Disp: , Rfl: ??? folic acid (FOLVITE) 1 mg tablet, Take 1 mg by mouth daily with dinner , Disp: , Rfl: ??? levocetirizine (XYZAL) 5 mg tablet, Take 5 mg by mouth daily with lunch , Disp: , Rfl: ??? [START ON 01/27/2021] losartan (COZAAR) 25 mg tablet, Take 1 tablet (25 mg total) by mouth daily, Disp: 30 tablet, Rfl: 3 ??? OLANZapine (ZyPREXA ZYDIS) 10 mg disintegrating tablet, Take 1 tablet (10 mg total) by mouth nightly, Disp: 30 tablet, Rfl: 0 ??? [START ON 01/27/2021] OLANZapine (ZyPREXA ZYDIS) 5 mg disintegrating tablet, Take 1 tablet (5 mgtotal) by mouth daily, Disp: 30 tablet, Rfl: 0 ??? ondansetron ODT (ZOFRAN-ODT) 4 mg disintegrating tablet, Take 1 tablet (4 mg total) by mouth every 6 (six) hours as needed for nausea or vomiting, Disp: 20 tablet, Rfl: 0 ??? pantoprazole DR (PROTONIX) 40 mg EC tablet, Take 40 mg by mouth every morning, Disp: , Rfl: ??? polyethylene glycol (MIRALAX) 17 gram packet, Take 17 g by mouth daily with lunch , Disp: , Rfl: ??? prochlorperazine (Compazine) 10 mg tablet, Take 10 mg by mouth every 6 (six) hours as needed for nausea or vomiting. Indications: nausea and vomiting, Disp: , Rfl: ??? traMADoL (ULTRAM) 50 mg tablet, , Disp: , Rfl: Lab/Radiology/Diagnostic Review: Recent Results (from the past 24 hour(s)) Renal function panel Collection Time: 01/26/21 5:07 AM Result Value Ref Range Sodium 137 135 - 145 mmol/L Potassium, pl 3.8 3.3 - 4.9 mmol/L Chloride 102 97 - 110 mmol/L CO2 26 22 - 32 mmol/L Anion gap 9 2 - 15 mmol/L BUN 6 (L) 8 - 25 mg/dL Creatinine 0.75 0.60 - 1.10 mg/dL Glucose 110 70 - 199 mg/dL Calcium 9.3 8.5 - 10.3 mg/dL Phosphorus, pl 3.5 2.3 - 4.5 mg/dL Albumin 3.2 (L) 3.5 - 5.0 g/dL CBC with auto differential Collection Time: 01/26/21 5:07 AM Result Value Ref Range WBC 8.6 3.8 - 9.9 K/cumm Hgb 11.8 (L) 11.9 - 15.5 g/dL Hct 37.7 35.6 - 45.5 % Plt 352 150 - 400 K/cumm MPV 9.5 9.1 - 12.3 fL RBC 3.99 3.90 - 5.20 M/cumm MCV 94.5 81.3 - 96.4 fL MCH 29.6 27.1 - 33.3 pg MCHC 31.3 (L) 32.3 - 35.7 g/dL RDW CV 12.0 11.1 - 14.9 % RDW SD 41.7 35.7 - 48.1 fL NRBC abs 0.00 0.00 - 0.01 K/cumm Differential, auto Collection Time: 01/26/21 5:07 AM Result Value Ref Range Neutrophil abs 5.5 1.7 - 6.5 K/cumm Imm gran abs 0.0 0.0 - 0.1 K/cumm Lymphocyte abs 2.2 0.8 - 3.3 K/cumm Monocyte abs 0.7 0.2 - 0.8 K/cumm Eosinophil abs 0.2 0.0 - 0.5 K/cumm Basophil abs 0.1 0.0 - 0.1 K/cumm Neutrophil pct 63.7 % Imm gran pct 0.5 % Lymphocyte pct 25.0 % Monocyte pct 7.6 % Eosinophil pct 2.3 % Basophil pct 0.9 % eGFR Collection Time: 01/26/21 5:07 AM Result Value Ref Range GFR 90 mL/min/1.73 m2 ECG 12 lead Result Date: 01/15/2021 Narrative: Vent Rate: 119 bpm RR Interval: 503 msec RI Interval: 136 msec QRS Duration: 79 msec QT Interval: 427 msec QTC Interval: 498 msec P-R-T [place]: 67 - 83 - [address] DEVIATION AND MODERATE T-WAVE ABNORMALITY, CONSIDER INFERIOR ISCHEMIA ABNORMAL ECG Electronically SignedBy: Dr. Con Hughes [facility] ECG 12 lead Result Date: 01/15/2021 Narrative: Vent Rate: 62 bpm RR Interval: 957 msec RI Interval: 142 msec QRS Duration: 88 msec QT Interval: 456 msec QTC Interval: 462 msec P-R-T [place]: 52 - 60 - 72 degrees SINUS RHYTHM NORMAL ECG Electronically Signed By: Dr. Con Hughes [facility] ECG 12 lead Result Date: 01/14/2021 Narrative: Vent Rate: 92 bpm RR Interval: 648 msec RI Interval: 133 msec QRS Duration: 86 msec QT Interval: 392 msec QTC Interval: 442 msec P-R-T [place]: 75 - 83 - 76 degrees SINUS RHYTHM MIN[address] DEPRESSION BORDERLINE ECG Electronically Signed By: Dr. Con Hughes [facility] CT Abdomen Pelvis WO Contrast Result Date: 01/14/2021 Narrative: EXAMINATION: CT ABDOMEN PELVIS WO CONTRAST TECHNIQUE: Computed tomographic examination of the abdomen and pelvis is performed without intravenous contrast HISTORY: Right-sided abdominal pain evaluate kidney stone COMPARISON:02/06/2020 FINDINGS: Visualized lung bases are normal. The liver, spleen, pancreas, adrenal glands are normal. There is nonobstructing bilateral renal calculi. However, there are no ureteral calculi there is no hydronephrosis. No bladder calculi seen. There is no obstruction, pneumoperitoneum or free fluid. Diffuse diverticulosis present there is no acute diverticulitis. There is been a prior partial colonic resection. Moderate amount of stool is noted within the rectosigmoid colon compatible with constipation or obstipation. Diffuse atherosclerotic disease of the aorta seen. Osseous windows demonstrate multilevel degenerative disc disease. Multiple injection granulomas seen in the subcutaneous tissues. Impression: 1. Findings compatible with constipation or obstipation. 2 nonobstructing renal calculi. Electronically signed by: Mehdi Meyers M.D., MPH XR Chest Pa Lateral 2 Vw Result Date: 01/14/2021 Narrative: EXAMINATION: XR CHEST PA LATERAL 2 VIEWS HISTORY: The patient is a 55-year-old female who presents with chest pain. TECHNIQUE: PA and lateral view of the chest. FINDINGS: There is hyperinflation of the lungs. No focal infiltrate. Cardiovascular structures unremarkable. Impression: Hyperinflation of the lungs. Electronically signed by: Rakesh Palacio M.D. Stress Test for Myocardial Perfusion Result Date: 01/17/2021 Narrative: [place] [address] MPI Imaging Report Patient Name: MADISON WEINBERG J : 1965 Study Date: 01/17/2021 12:20:00 PM Gender: F Tech: [facility] Location: [id number] Ref.Provider:ANA ELLIS Height(Cm): BSA: Weight(Kg): Order Provider: ANGELA ABDUL Procedures: Pharmacologic SPECT Report.: Myocardial perfusion imaging with Tetrofosmin SPECT at rest and post regadenoson (Lexiscan) infusion. Indications: Chest Pain. Findings: Procedure Data: Resting HR 72 bpm. Predicted Maximal HR 165 bpm. Target HR: 140 bpm. Percent Max Predicted HR Achieved: 55.15 %. Baseline BP: 145/82mmHg. Peak BP: 144/74 mmHg. Exercise Time: 0.49. Reason for Termination: Lexiscan protocol complete. Resting ECG: Normal resting ECG. Post Pharm ECG: No diagnostic ST changes. Arrhythmia: Rare PVCs. Cardiac Symptoms With Stress: Symptoms with stress were Dyspnea. Symptoms were resolved with rest. Co nclusions: 1. Test negative for pharmacologic induced inducible ishemia by electrocardiographic criteria at maximal work load. 2. SPECT to follow and should be correlated with this study. Electronically Signed By: Tony Mosley MD 2021-01-17 15:20:16 CDT Stress Test for Myocardial Perfusion Result Date: 01/17/2021 Narrative: [address], [place] [address] MPI Imaging Report ADDENDUM Patient Name: MADISON WEINBERG : [id number] Study Date: 01/16/2021 12:41:39 PM Gender: F Tech: [facility] Location: [id number] Ref.Provider: ANA ELLIS Height(Cm): BSA: Weight(Kg): Heart Rate: 140 Order Provider: ANGELA ABDUL Procedures: Pharmacologic SPECT Report.: Myocardial perfusion imaging with Tetrofosmin SPECT at rest andpost regadenoson (Lexiscan) infusion. Indications: Chest Pain. Findings: Procedure Data: Resting HR72 bpm. Peak HR: 124 bpm. Predicted Maximal HR 165 bpm. Target HR: 140 bpm. Percent Max Predicted HR Achieved: 75.15 %. Baseline BP: 156/87 mmHg. Peak BP: 148/63 mmHg. Exercise Time: 00:38. Reason for Termination: Lexiscan protocol complete. Resting ECG: Normal sinus rhythm. Post Pharm ECG: No diagnostic ST changes. Arrhythmia: No arrhythmias seen. Cardiac Symptoms With Stress: Symptoms with stress were Dyspnea. Symptoms were resolved with rest. BP Response: Blood pressure response is appropriate. Conclusions: 1. Test negative for pharmacologic induced inducible ishemia by electrocardiographic criteria at maximal work load. 2. SPECT to follow and should be correlated with this study. Electronically Signed By: Harper Feliciano DO, FACVal, NEREIDA BRADSHAW 2021-01-17 10:00:36 CDT CC: CC: Transthoracic Echo Complete W Doppler/CF Result Date: 01/17/2021 Narrative: [place] [address] Echocardiogram Report Patient Name: MADISON WEINBERG : 1965 Study Date: 01/17/2021 9:19:18 AM Gender: F Tech: Location: [id number] Ref.Provider: ANA ELLIS Height(Cm): 165 BSA: 1.44 Weight(Kg): 45 Heart Rate: 69 BP: 132/86 Quality: Good OrderProvider: ANGELA ABDUL Procedures: Echocardiographic Report: Transthoracic echocardiogram with complete 2D, M-Mode, and color Doppler examination. Indications: Chest Pain. Measurements: 2D/M Mode Doppler Measurement Value Normal Range Measurement Value Normal Range EF Teich 2D 69.8 [ 55.0 - 70.0 ] percent KANDIS Vmax 1.56 [ 2.00 - 4.00 ] cm2 EF Mod 4C 67.6 [ 55.0 - 70.0 ] percent AV Mean PG 5 [ 2 - 4 ] mmHg LVIDd 2D 4.51 [ 3.90 - 5.30 ] cm AV Peak Chuck 1.58 [ 1.00 - 1.70 ] m/s LVIDs 2D 2.74 [ 2.30 - 3.90 ] cm AV VTI 30.51 cm LVPWd 2D 0.80 [ 0.60 - 1.00 ] cm LVOT Diam 1.77 [ 1.70 - 2.10 ] cm IVSd 2D 0.51 [ 0.60 - 0.90 ] cm LVOT Peak Chuck 1.00 [ 0.70 - 1.10 ] m/s LA Dimension MM 2.86 [ 2.70 - 3.80 ] cm LVOT VTI 18.62 [ 20.00 - 30.00 ] cm AoR Diam MM 2.60 [ 2.60 - 3.70 ] cm MV E Peak Chuck 0.83[ 0.60 - 1.30 ] m/s LA Volume Index 14.06 [ 16.00 - 28.00 ] cc/m2 MV A Peak Chuck 0.91 [ 1.00 - 1.20 ] m/s ACS MM 1.43 cm MV PHT 59 [ 20 - 100 ] msec MVA 3.70 MV Decel Time 199 [ 104 - 258 ] msec PV Peak Chuck 0.84 [ 0.40 - 0.80 ] m/s TR Peak Chuck 2.22 [ 1.00 - 2.80 ] m/s TR Peak PG 20 mmHg RVSP 25.00 [ 10.00 - 36.00 ] mmHg E' 0.08 E/E' 10.92 Findings: Atrial Septum: Normal atrial septum. Left Ventricle: Normal left ventricular size. Normal left ventricular systolic function with no focal wall motion abnormalities. Left ventricular wall thickness upper limits of normal. Impaired diastolic relaxation Grade I. Ejection fraction is measured at 70 %. Left Atrium: The left atrium is normal in size. Right Ventricle: Normal right ventricular size. Normal right ventricular systolic function. RightAtrium: The right atrium is normal in size. Aortic Valve: Normal structure of the aortic valve. Mitral Valve: Normal structure of the mitral valve. Trivial regurgitation of the mitral valve. PulmonicValve: Normal structure of the pulmonic valve. Tricuspid Valve: Normal structure of the tricuspid valve. Normal right ventricular systolic pressure. Estimated peak RVSP is 25 mmHg. Trivial regurgitation in the tricuspid valve. Pericardium: Normal pericardium with no significant pericardial effusion. Aorta: Normal aortic root. IVC: Normal size and normal respiratory collapse consistent with normalright atrial pressure (<5 mmHg). Pulmonary Artery: Normal pulmonary artery size. Conclusions: Normal left ventricular size. Normal left ventricular systolic function with no focal wall motion abnormalities. Left ventricular wall thickness upper limits of normal. Impaired diastolic relaxation Grade I. Ejection fraction is measured at 70 %. Normal structure of the mitral valve. Trivial regurgitation of the mitral valve. Normal structure of the tricuspid valve. Normal right ventricular systolicpressure. Estimated peak RVSP is 25 mmHg. Trivial regurgitation in the tricuspid valve. Electronically Signed By: Tony Mosley MD 2021-01-17 11:49:07 CDT NM MPI SPECT (Rest and/or Stress) Multiple Studies Result Date: 01/17/2021 Narrative: EXAMINATION: MYOCARDIAL IMAGING (PHARMACOLOGIC-STRESS AND REST/SPECT/CT) DATE OF STUDY: 01/16/2021 RADIOPHARMACEUTICAL: 10.1 mCi, 27.4 mCi Tc-99m tetrofosmin i.v. HISTORY: 55 year old femalewith a history of hepatitis, renal disease, DVT, hyperlipemia presenting with chest pain. Evaluate for ischemia and/or myocardial infarction. The patient's body mass index (BMI) was 16. The electrocardiogram during infusion of the pharmacologic agent was negative for ischemia. FINDINGS: Both stressand rest imaging were performed, in the following order: rest/stress Stress imaging: An intravenousinfusion of Regadenoson (0.4 mg of A2A adenosine receptor agonist Regadenoson (Lexiscan), infused intravenously over approximately 10 seconds, followed approximately after another 20 seconds by tracer infusion) was performed without low level exercise on the date indicated above. A complete description of the stress test and electrocardiographic results supervised by staff of the Cardiovascular Di vision is available in the [facility] electronic medical record. Standard myocardial perfusion images wereobtained after tracer injection at the peak effect of the drug. Low-dose CT images spanning the heart were obtained for attenuation correction. Rest Imaging: Standard myocardial perfusion images wereobtained after resting tracer injection. Low-dose CT images spanning the heart were obtained for attenuation correction. COMPARISON: None available. The stress images were repeated as on initial images there was motion artefact in the anteroseptal wall. The repeat stress images on the following daywere reviewed for image quality, and reveal no significant artifacts. There is normal distribution of activity in the left and right ventricular myocardium on both stress and rest images. Gated post-stress images demonstrate normal left ventricular volume, normal left ventricular wall motion and normal ejection fraction of >70% % (normal >45%). Additional gated rest images demonstrate normal left ventricular wall motion and a resting left ventricular ejection fraction of 64%. Incidental findings on the low-dose CT images: mild aortic atherosclerosis, small area of fatty infiltration in the liver. Impression: 1. Normal pharmacologic-stress and rest myocardial perfusion. 2. Normal left ventricular size and systolic function. Dictated by: Reji Romero M.D. The radiology attending physician has personally reviewed this study, and had reviewed and/or edited this written report and agrees withit. Electronically signed by: Vilma Lamb M.D. US Retroperitoneal Complete Result Date: 01/16/2021 Narrative: EXAMINATION: US RETROPERITONEAL COMPLETE HISTORY: The patient is a 55-year-old female who presents with acute renal failure. TECHNIQUE: Transverse and sagittal images were obtained along with color Doppler imaging. FINDINGS: The right kidney measures 9.2 x 4.2 x 3.8 cm and the left kidney measures 8.9 x 4.7 x 5.4 cm in size. No hydronephrosis or perinephric fluid collection. There is atiny calculus in the left kidney which is not causing obstruction. Renal cortical thickness is normal. There is slight increase in renal cortical echogenicity. The urinary bladder was not visualized and cannot be commented on. Impression: Slight increase in renal cortical echogenicity bilaterally, consistent with some degreeof chronic renal parenchymal disease. Electronically signed by: Rakesh Palacio M.D. ASSESSMENT/PLAN History of DVT (deep vein thrombosis) Elevated troponin Hepatitis Tylenol overdose JHOANA (acute kidney injury) (CMS/HCC) NSAID overdose Bandemia High anion gap metabolic acidosis Hypokalemia Right lower quadrant abdominal pain Suicidal ideation Frailty Severe protein-calorie malnutrition (CMS/HCC) ?? 1. JHOANA from volume contraction and NSAID use. 2. Possible underling CKD with hematuria and proteinuria. 3. Hx of nephrolothiasis per patient. 4. NAGMA. 5. Leukocytosis. 6. Abd pain. 7. Reported suicidal ideation. 8. Severe hypokalemia. 9. Anemia. ?? PLAN ?? 1. JHOANA resolved, push PO fluids. 2. Replace K PRN. 3. Basic JHOANA manning, r/o vasculitis, doubt! 4. Renal US, noted, b/l echogenic kidneys. 5. Cards fu. 6. Daily labs. 7. Appreciate residential sales consultant input. 8. May need arb for bp, started. ?? I can be reached at [phone] with any concerns. Thank you No att. providers found for the consult. Jorje Osorio MD [employer] [phone] * Peng Hill MD - 01/26/2021 9:03 AM CDT Daily Progress [facility] Cardiology OBJECTIVE: Past Medical History: Diagnosis Date ??? Anemia ??? Anxiety disorder ??? Colon obstruction (CMS/HCC) ??? DVT (deep venous thrombosis) (CMS/HCC) 11/2018 ??? Endometriosis Endometriosis-21 times ??? Hyperlipidemia ??? PONV (postoperative nausea and vomiting) IV medications help ??? Trigeminal neuralgia Family History Problem Relation Age of Onset [...] Heart disease; ??? Anesthesia problems Neg Hx Scheduled Medications Medication Dose Route Frequency ??? aspirin enteric coated tablet 81 mg 81 mg oral Daily ??? atorvastatin (LIPITOR) tablet 20 mg 20 mg oral Daily ??? clonazePAM (KlonoPIN) tablet 0.5 mg 0.5 mg oral TID ??? cyclobenzaprine (FLEXERIL) tablet 10 mg 10 mg oral BID ??? dicyclomine (BENTYL) tablet 10 mg 10 mg oral TID ??? folic acid (FOLVITE) tablet 1 mg 1 mg oral Daily with dinner ??? losartan (COZAAR) tablet 25 mg 25 mg oral Daily ??? metoprolol tartrate (LOPRESSOR) immediate release tablet 25 mg 25 mg oral BID ??? OLANZapine (ZyPREXA ZYDIS) disintegrating tablet 10 mg 10 mg oral Nightly ??? OLANZapine (ZyPREXA ZYDIS) disintegrating tablet 5 mg 5 mg oral Daily ??? polyethylene glycol (MIRALAX) packet 17 g 17 g oral Daily with lunch ??? senna-docusate (PERICOLACE) 8.6-50 mg per tablet 2 tablet 2 tablet oral BID ??? sodium chloride 0.9% flush 0.5-20 mL 0.5-20 mL intra-catheter Q8H ELIU Recent Labs Lab Units 01/26/21 0507 01/21/21 0533 01/20/21 0810 WBC K/cumm 8.6 7.0 8.6 HEMOGLOBIN g/dL 11.8* 12.7 13.8 HEMATOCRIT % 37.7 41.4 42.3 PLATELETS K/cumm 352 340 414* Recent Labs Lab Units 01/26/21 0507 01/21/21 0533 01/20/21 0810 SODIUM mmol/L 137 139 141 POTASSIUM PLASMA mmol/L 3.8 3.7 3.4 CHLORIDE mmol/L 102 104 103 CO2 mmol/L 26 22 26 ANIONGAP mmol/L 9 13 12 GLUCOSE mg/dL 110 118 117 BUN SERUM mg/dL 6* 4* 3* CREATININE mg/dL 0.75 0.56* 0.64 CALCIUM mg/dL 9.3 9.4 9.5 ALBUMIN g/dL 3.2* 3.2* 3.7 Intake/Output Summary (Last 24 hours) at 01/26/2021 0903 Last data filed at 01/26/2021 0710 Gross per 24 hour Intake 1060 ml Output 2 ml Net 1058 ml Vitals: 01/25/21 1528 01/26/21 0028 01/26/21 0424 01/26/21 0727 BP: 111/71 93/57 113/74 109/60 BP Location: Right arm Right arm Left arm Right arm Patient Position: Sitting Lying Lying Sitting Pulse: 84 67 82 88 Resp: Temp: 36.5 ??C (97.7 ??F) 36.7 ??C (98.1 ??F) 36.6 ??C (97.9 ??F) 36.5 ??C (97.7 ??F) TempSrc: Oral Oral Oral Oral SpO2: 100% 100% 100% 100% Weight: Height: ASSESSMENT/PLAN: Patient Active Problem List Diagnosis ??? Endometriosis ??? Multiple-type hyperlipidemia ??? Anxiety state ??? Acute cerebrovascular insufficiency ??? Abdominal pain ??? 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 History of DVT (deep vein thrombosis) ??? Elevated troponin ??? Chest pressure ??? Hepatitis ??? Tylenol overdose ??? JHOANA (acute kidney injury) (CMS/HCC) ??? NSAID overdose ??? Bandemia ??? High anion gap metabolic acidosis ??? Hypokalemia ??? Right lower quadrant abdominal pain ??? Suicidal ideation ??? Frailty ??? Severe protein-calorie malnutrition (CMS/HCC) Exam: GEN: NAD CV: S1S2, RRR, NSR on tele RESP: CTA ABD: Soft, non-tender EXT: No edema NEURO: A&O x 3, appropriate affect, sitter at bedside ? ECHO 01/17/2021 Conclusions: Normal left ventricular size. Normal left ventricular systolic function with no focal wall motion abnormalities. Left ventricular wall thickness upper limits of normal. Impaired diastolic relaxation Grade I. Ejection fraction is measured at 70 %. Normal structure of the mitral valve. Trivial regurgitation of the mitral valve. Normal structure of the tricuspid valve. Normal right ventricular systolic pressure. Estimated peak RVSP is 25 mmHg. Trivial regurgitation in the tricuspid valve. ?? Assessment /Plan?Chest pain -no recurrence -non cardiac -Mildly elevated trops without acute rise, no c/w ACS -Echo noted above, no rwma, EF 70% -Stress test negative for ischemia -No further CV work up indicated at this time ?? HLD -on statin ?? Hx DVT ? Anxiety and sepression w/suicidal ideation -Ppch following -plan for involuntary admission to psych facility once medically stable ?? Tylenol overdose -secondary to above -LFTs normal ? PLAN Continue current CV meds, no recurrence of CP. Peng Hill MD, [facility], [facility], [facility] [phone] 01/26/2021 9:03 AM * Niki Danielson LPC - 01/26/2021 8:39 AM CDT Called 5th floor asked to speak to AN spoke with Abigail. Informed her that the pt was accepted to [facility] around 0130. EMS was suppose to pick her up around 7am. This scientific writer contact EMS Managerand was informed pickle solution maker would now be 10am. [facility] informed Whitney STEPHENS of this and she told [facility] that she has no order for discharge. I updated Abigail that we have to have the done before EMS arrives. We can't lose this bed since we have been looking for 7 days. Abigail said she would get on it. I have also updated the Director at [facility] our delay in transport. She understood and would hold the bed. Niki Danielson LPC 8:42 AM 01/26/2021 * Kira Rivas RN - 01/26/2021 1:27 AM CDT [facility] spoke with Sandy at [facility]. Dr. Guadarrama accepted patient. Nursing can call report to [phone]. RN will provide room number when report is called. [facility] provided RN Sarah admission information. RN to call Nursing [employer] with any questions or assistance with transfer. ELSA Whitney RN Behavioral Health Intake/[facility] [employer] [phone] * Kira Rivas RN - 01/25/2021 11:25 PM CDT Behavioral health update. Patient has been declined at [place] due to inability to provide court order. Chart is at [facility] and is on the wait list at [facility]. Currently no beds available. Dr. Albert was notified this afternoon to see patient today. Behavioral health continues to follow patient to attempt for inpatient placement. ELSA Whitney RN Behavioral Health Intake/[facility] [employer] [phone] * Jorje Osorio MD - 01/25/2021 9:00 PM CDT Nephrology Progress Note [facility] SUBJECTIVE Renal fn is stable. Agitation varies, some chest tightness off and on, clinically non cardiac. All labs reviewed. Overall clinically unchanged. Some psych issues still need resolved. Eager to go home. OBJECTIVE Vitals: Vitals: 01/25/21 0728 01/25/21 0929 01/25/21 1149 01/25/21 1528 BP: 142/76 92/55 111/71 BP Location: Left arm Right arm Right arm Patient Position: Lying Lying Sitting Pulse: 97 92 72 84 Resp: 18 12 18 Temp: 36.6 ??C (97.9 ??F) 36.9 ??C (98.4 ??F) 36.5 ??C (97.7 ??F) TempSrc: Oral Oral Oral SpO2: 98% 100% 100% Weight: Height: Intake/Output Summary (Last 24 hours) at 01/25/2021 2100 Last data filed at 01/25/2021 1855 Gross per 24 hour Intake 580 ml Output 2 ml Net 578 ml REVIEW OF SYSTEMS Review of Systems Constitutional: Negative. HENT: Negative. Eyes: Negative. Respiratory: Negative. Cardiovascular: Negative. Gastrointestinal: Negative. Genitourinary: Negative. Musculoskeletal: Negative. Skin: Negative. Allergic/Immunologic: Negative. Hematological: Negative. All other systems reviewed and are negative. PHYSICAL EXAM Physical Exam Constitutional: Appears well-developed. HENT: wnl Head: Normocephalic. Eyes: Pupils are equal, round, and reactive to light. Neck: Normal range of motion. Neck supple. Cardiovascular: Normal rate. Pulmonary/Chest: Effort normal and breath sounds normal. Abdominal: Soft. Musculoskeletal: Normal range of motion. Neurological: Alert, oriented. Skin: Skin is warm. Nursing note and vitals reviewed. MEDICATIONS Current Facility-Administered Medications: ? ? al & mag hydroxide oacxblcilqf-axbsxjisfbvepnp-uraqpomsv-nystatin (MAGIC MOUTHWASH) suspension 1-1-1-1, 15 mL, swish & spit, Q4H PRN, Harper Guillaume MD, 15 mL at 01/22/21 2347 ??? aspirin enteric coated tablet 81 mg, 81 mg, oral, Daily, Francisco Padilla MD, 81 mg at 01/25/21928 ??? atorvastatin (LIPITOR) tablet 20 mg, 20 mg, oral, Daily, Angela Abdul MD, 20 mg at 01/25/2128 ??? [START ON 01/26/2021] clonazePAM (KlonoPIN) tablet 0.5 mg, 0.5 mg, oral, TID, Kevin Albert MD ??? cyclobenzaprine (FLEXERIL) tablet 10 mg, 10 mg, oral, BID, Francisco Padilla MD, 10 mg at 01/25/212052 ??? dicyclomine (BENTYL) tablet 10 mg, 10 mg, oral, TID, Francisco Padilla MD, 10 mg at 01/25/212052 ??? folic acid (FOLVITE) tablet 1 mg, 1 mg, oral, Daily with dinner, Francisco Padilla MD, 1mg at 01/25/21 1744 ??? metoprolol tartrate (LOPRESSOR) immediate release tablet 25 mg, 25 mg, oral, BID, Francisco Padilla MD, 25 mg at 01/25/212052 ??? OLANZapine (ZyPREXA ZYDIS) disintegrating tablet 10 mg, 10 mg, oral, Nightly, Kevin Albert MD ??? [START ON 01/26/2021] OLANZapine (ZyPREXA ZYDIS) disintegrating tablet 5 mg, 5 mg, oral, Daily, Kevin Albert MD ??? ondansetron ODT (ZOFRAN-ODT) disintegrating tablet 4 mg, 4 mg, oral, Q6H PRN, 4 mg at 01/22/21 1105 OR [DISCONTINUED] ondansetron (ZOFRAN) injection 4 mg, 4 mg, intravenous, Q6H PRN, Oracio Jeffries NP, 4 mg at 01/18/21 2218 ??? oxyCODONE (ROXICODONE) tablet 5 mg, 5 mg, oral, QID PRN, Francisco Padilla MD, 5 mg at 01/25/21 1631 ??? polyethylene glycol (MIRALAX) packet 17 g, 17 g, oral, Daily with lunch, Francisco Padilla MD, 17 g at 01/21/21 1127 ??? ramelteon (ROZEREM) tablet 8 mg, 8 mg, oral, Nightly PRN, Bethany Connor NP, 8 mg at 120 ??? senna-docusate (PERICOLACE) 8.6-50 mg per tablet 2 tablet, 2 tablet, oral, BID, Francisco Padilla MD, 2 tablet at 01/25/212052 ??? Saline lock IV, , , Once AND sodium chloride 0.9% flush 0.5-20 mL, 0.5- 20 mL, intra-catheter, Q8H ELIU, 10 mL at 01/25/21 0930 AND sodium chloride 0.9% flush 0.5-20 mL, 0.5-20 mL, intra-catheter, PRN, Oracio Jeffries NP ??? sodium chloride 0.9% flush 10 mL, 10 mL, intravenous, PRN, Angela Abdul MD, 10 mL at 01/17/21 1242 ??? sodium chloride 0.9% flush 10 mL, 10 mL, intravenous, PRN, Angela Abdul MD ??? traMADoL (ULTRAM) tablet 50 mg, 50 mg, oral, BID PRN, Harper Guillaume MD, 50 mg at 01/25/21 1821 Lab/Radiology/Diagnostic Review: No results found for this or any previous visit (from the past 24 hour(s)). ECG 12 lead Result Date: 01/15/2021 Narrative: Vent Rate: 119 bpm RR Interval: 503 msec RI Interval: 136 msec QRS Duration: 79 msec QT Interval: 427 msec QTC Interval: 498 msec P-R-T [place]: 67 - 83 - [address] DEVIATION AND MODERATE T-WAVE ABNORMALITY, CONSIDER INFERIOR ISCHEMIA ABNORMAL ECG Electronically SignedBy: Dr. Con Hughes [facility] ECG 12 lead Result Date: 01/15/2021 Narrative: Vent Rate: 62 bpm RR Interval: 957 msec RI Interval: 142 msec QRS Duration: 88 msec QT Interval: 456 msec QTC Interval: 462 msec P-R-T [place]: 52 - 60 - 72 degrees SINUS RHYTHM NORMAL ECG Electronically Signed By: Dr. Con Hughes [facility] ECG 12 lead Result Date: 01/14/2021 Narrative: Vent Rate: 92 bpm RR Interval: 648 msec RI Interval: 133 msec QRS Duration: 86 msec QT Interval: 392 msec QTC Interval: 442 msec P-R-T [place]: 75 - 83 - 76 degrees SINUS RHYTHM MINIMAL ST DEPRESSION BORDERLINE ECG Electronically Signed By: Dr. Con Hughes [facility] CT Abdomen Pelvis WO Contrast Result Date: 01/14/2021 Narrative: EXAMINATION: CT ABDOMEN PELVIS WO CONTRAST TECHNIQUE: Computed tomographic examination of the abdomen and pelvis is performed without intravenous contrast HISTORY: Right-sided abdominal pain evaluate kidney stone COMPARISON:02/06/2020 FINDINGS: Visualized lung bases are normal. The liver, spleen, pancreas, adrenal glands are normal. There is nonobstructing bilateral renal calculi.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 tablet 10 mg, 10 mg, oral, BID, Francisco Padilla MD, 10 mg at 01/25/21927 ??? dicyclomine (BENTYL) tablet 10 mg, 10 mg, oral, TID, Francisco Padilla MD, 10 mg at 01/25/21928 ??? folic acid (FOLVITE) tablet 1 mg, 1 mg, oral, Daily with dinner, Francisco Padilla MD, 1mg at 01/24/21 1721 ??? metoprolol tartrate (LOPRESSOR) immediate release tablet 25 mg, 25 mg, oral, BID, Francisco Padilla MD, 25 mg at 01/25/21928 ??? OLANZapine (ZyPREXA ZYDIS) disintegrating tablet 5 mg, 5 mg, oral, BID, Kevin Albert MD, 5 mg at 01/25/21928 ??? ondansetron ODT (ZOFRAN-ODT) disintegrating tablet 4 mg, 4 mg, oral, Q6H PRN, 4 mg at 01/22/21 1105 OR [DISCONTINUED] ondansetron (ZOFRAN) injection 4 mg, 4 mg, intravenous, Q6H PRN, Oracio Jeffries NP, 4 mg at 01/18/21 2218 ??? oxyCODONE (ROXICODONE) tablet 5 mg, 5 mg, oral, QID PRN, Francisco Padilla MD, 5 mg at 01/24/21 2115 ??? polyethylene glycol (MIRALAX) packet 17 g, 17 g, oral, Daily with lunch, Francisco Padilla MD, 17 g at 01/21/21 1127 ??? ramelteon (ROZEREM) tablet 8 mg, 8 mg, oral, Nightly PRN, Bethany Connor NP, 8 mg at 120 ??? senna-docusate (PERICOLACE) 8.6-50 mg per tablet 2 tablet, 2 tablet, oral, BID, Francisco Padilla MD, 2 tablet at 01/25/21 0929 ??? Saline lock IV, , , Once AND sodium chloride 0.9% flush 0.5-20 mL, 0.5- 20 mL, intra-catheter, Q8H ELIU, 10 mL at 01/25/21 0930 AND sodium chloride 0.9% flush 0.5-20 mL, 0.5-20 mL, intra-catheter, PRN, Oracio Jeffries NP ??? sodium chloride 0.9% flush 10 mL, 10 mL, intravenous, PRN, Angela Abdul MD, 10 mL at 01/17/21 1242 ??? sodium chloride 0.9% flush 10 mL, 10 mL, intravenous, PRN, Angela Abdul MD ??? traMADoL (ULTRAM) tablet 50 mg, 50 mg, oral, BID PRN, Harper Guillaume MD, 50 mg at 01/24/21 1723 Continuous Medications: PRN Medications: ? ? al & mag hydroxide ilobbvnmwaw-qtorlrtlklzmdxz-dmwgbpart-nystatin (MAGIC MOUTHWASH) suspension 1-1-1-1 ??? ondansetron ODT OR [DISCONTINUED] ondansetron ??? oxyCODONE ??? ramelteon ??? Saline lock IV AND sodium chloride 0.9% AND sodium chloride 0.9% ??? sodium chloride 0.9% ??? sodium chloride 0.9% ??? traMADoL Hospital course: 55 y.o.WF pt with history of anxiety, DVT, endometriosis.presented to ED with a C/C of Right lower abdominal pain,nausea,vomiting for weeks. ASSESSMENT/PLAN: All diagnoses are present on admission unless otherwise stated. Principal Problem: ---Chest pressure with abnormal troponins: Consulted Cardiology .01/16 Lexiscan stress test neg. 01/17 TTE showed no focal wall motion abnormalities. No intervention planned at this time. Continue Lopressor, aspirin, Lipitor Monitor on Telemetry ?? Active problems: ---Elevated LFTs with tylenol overdose : S/P NAC drip. Tylenol level normal on 01/14. ---JHOANA with NSAID overuse.S/P IVF Consulted Nephrology. Resolved 01/16 Renal US showed chronic renal parenchymal disease. --- Bandemia: CXR neg. 01/14 Blood cultures neg . 01/14 Urine culture grew ORSA. Leukocytosis resolved. ---High gap acidosis: Lactate normal. S/P IVF. Resolved?? --- Hypokalemia:Repleted, resolved. Mg normal.. ---Hypo phosphotemia: Repleted, resolved. ??---MRSA nasal 01/18 /Urine colonization 01/14 : ---Chronic Abdominal pain: 01/13 CT Abd showed constipation or obstipation. Has had BMs. But still with abdominal pain. --- Sucidal thoughts: Consulted Psych . Recommended in pat psych . Completed Affidavit. Await [place]. Now denies any more suicidal thoughts. Will have psych to reevaluate pt. --- History of DVT: Not on oral anticoagulants outpatient --- Frailty, cachexia, and malnutrition: Continue PT/OT,Ensure Enlive Supplements ---+ve Nasal MRSA 01/18: ?? DVT Prophylaxis with SQ Lovenox Code status: Full code D/W RN Medical Decision Making complexity: Moderate Discharge disposition: Rachid Shaw MD 01/25/2021 9:47 AM * Marnie Herrera NP - 01/25/2021 9:19 AM CDT Daily Progress SUBJECTIVE: Ms. Weinberg , is sitting up in bed. Denies any further complaints of CP. Denies SOB, dizziness orlightheadedness. OBJECTIVE: Vitals: 01/24/21 1600 01/24/21199901/25/21 0550 01/25/21 0728 BP: 121/75 112/76 115/70 142/76 BP Location: Right arm Right arm Left arm Patient Position: Sitting Lying Lying Pulse: 80 99 86 97 Resp: 18 19 16 18 Temp: 36.6 ??C (97.9 ??F) 36.6 ??C (97.8 ??F) 36.3 ??C (97.4 ??F) 36.6 ??C (97.9 ??F) TempSrc: Oral Oral Oral Oral SpO2: 100% 100% 98% 98% Weight: Height: Intake/Output Summary (Last 24 hours) at 01/25/2021 0919 Last data filed at 01/24/2021 1834 Gross per 24 hour Intake 360 ml Output 3 ml Net 357 ml Scheduled Medications Medication Dose Route Frequency ??? aspirin enteric coated tablet 81 mg 81 mg oral Daily ??? atorvastatin (LIPITOR) tablet 20 mg 20 mg oral Daily ??? clonazePAM (KlonoPIN) tablet 1 mg 1 mg oral BID ??? cyclobenzaprine (FLEXERIL) tablet 10 mg 10 mg oral BID ??? dicyclomine (BENTYL) tablet 10 mg 10 mg oral TID ??? folic acid (FOLVITE) tablet 1 mg 1 mg oral Daily with dinner ??? metoprolol tartrate (LOPRESSOR) immediate release tablet 25 mg 25 mg oral BID ??? OLANZapine (ZyPREXA ZYDIS) disintegrating tablet 5 mg 5 mg oral BID ??? polyethylene glycol (MIRALAX) packet 17 g 17 g oral Daily with lunch ??? senna-docusate (PERICOLACE) 8.6-50 mg per tablet 2 tablet 2 tablet oral BID ??? sodium chloride 0.9% flush 0.5-20 mL 0.5-20 mL intra-catheter Q8H ELIU LABS: Recent Labs Lab Units 01/21/21 0533 WBC K/cumm 7.0 HEMOGLOBIN g/dL 12.7 HEMATOCRIT % 41.4 PLATELETS K/cumm 340 Recent Labs Lab Units 01/21/21 0533 SODIUM mmol/L 139 POTASSIUM PLASMA mmol/L 3.7 CHLORIDE mmol/L 104 CO2 mmol/L 22 ANIONGAP mmol/L 13 GLUCOSE mg/dL 118 BUN SERUM mg/dL 4* CREATININE mg/dL 0.56* CALCIUM mg/dL 9.4 ALBUMIN g/dL 3.2* No results found for: BNP No results found for: TROPONINI Exam: GEN: NAD CV: S1S2, RRR, NSR on tele RESP: CTA ABD: Soft, non-tender EXT: No edema NEURO: A&O x 3, appropriate affect, sitter at bedside ECHO 01/17/2021 Conclusions: Normal left ventricular size. Normal left ventricular systolic function with no focal wall motion abnormalities. Left ventricular wall thickness upper limits of normal. Impaired diastolic relaxation Grade I. Ejection fraction is measured at 70 %. Normal structure of the mitral valve. Trivial regurgitation of the mitral valve. Normal structure of the tricuspid valve. Normal right ventricular systolic pressure. Estimated peak RVSP is 25 mmHg. Trivial regurgitation in the tricuspid valve. Assessment /Plan ?? Chest pain -no recurrence -non cardiac -Mildly elevated trops without acute rise, no c/w ACS -Echo noted above, no rwma, EF 70% -Stress test negative for ischemia -No further CV work up indicated at this time ?? HLD -At goal -on statin ?? Hx DVT ?? Anxiety and sepression w/suicidal ideation -Ppch following -plan for involuntary admission to psych facility once medically stable Tylenol overdose -secondary to above -LFTs normal Stable from a cardiovascular standpoint ?? PLAN Cardiovascular status stable Marnie Herrera NP [facility] 01/25/2021 9:19 AM * Jorje Osorio MD - 01/24/2021 11:49 PM CDT Nephrology Progress Note [facility] SUBJECTIVE Renal fn is improved. Agitation varies, some chest tightness, clinically non cardiac. All labs reviewed. Overall clinically unchanged. Some psych issues still need resolved. Eager to go home. OBJECTIVE Vitals: Vitals: 01/24/21 0747 01/24/21 1200 01/24/21 1600 01/24/211999 BP: 129/83 128/83 121/75 112/76 BP Location: Left arm Left arm Right arm Right arm Patient Position: Lying Sitting Sitting Lying Pulse: 97 81 80 99 Resp: 18 18 18 19 Temp: 36.4 ??C (97.5 ??F) 36.6 ??C (97.8 ??F) 36.6 ??C (97.9 ??F) 36.6 ??C (97.8 ??F) TempSrc: Oral Oral Oral Oral SpO2: 100% 100% 100% 100% Weight: Height: Intake/Output Summary (Last 24 hours) at 01/24/2021 2349 Last data filed at 01/24/2021 1834 Gross per 24 hour Intake 600 ml Output 4 ml Net 596 ml REVIEW OF SYSTEMS Review of Systems Constitutional: Negative. HENT: Negative. Eyes: Negative. Respiratory: Negative. Cardiovascular: Negative. Gastrointestinal: Negative. Genitourinary: Negative. Musculoskeletal: Negative. Skin: Negative. Allergic/Immunologic: Negative. Hematological: Negative. All other systems reviewed and are negative. PHYSICAL EXAM Physical Exam Constitutional: Appears well-developed. HENT: wnl Head: Normocephalic. Eyes: Pupils are equal, round, and reactive to light. Neck: Normal range of motion. Neck supple. Cardiovascular: Normal rate. Pulmonary/Chest: Effort normal and breath sounds normal. Abdominal: Soft. Musculoskeletal: Normal range of motion. Neurological: Alert, oriented. Skin: Skin is warm. Nursing note and vitals reviewed. MEDICATIONS Current Facility-Administered Medications: ? ? al & mag hydroxide ygtaiynhwll-rbulkuxpekgsaag-ipitqjenp-nystatin (MAGIC MOUTHWASH) suspension 1-1-1-1, 15 mL, swish & spit, Q4H PRN, Harper Guillaume MD, 15 mL at 01/22/21 2347 ??? aspirin enteric coated tablet 81 mg, 81 mg, oral, Daily, Francisco Padilla MD, 81 mg at 01/23/21 0859 ??? atorvastatin (LIPITOR) tablet 20 mg, 20 mg, oral, Daily, Angela Abdul MD, 20 mg at 01/24/21 0846 ??? clonazePAM (KlonoPIN) tablet 1 mg, 1 mg, oral, BID, Francisco Padilla MD, 1 mg at 01/24/212115 ??? cyclobenzaprine (FLEXERIL) tablet 10 mg, 10 mg, oral, BID, Francisco Padilla MD, 10 mg at 01/24/212115 ??? dicyclomine (BENTYL) tablet 10 mg, 10 mg, oral, TID, Francisco Padilla MD, 10 mg at 01/24/212115 ??? folic acid (FOLVITE) tablet 1 mg, 1 mg, oral, Daily with dinner, Francisco Padilla MD, 1mg at 01/24/21 1721 ??? metoprolol tartrate (LOPRESSOR) immediate release tablet 25 mg, 25 mg, oral, BID, Francisco Padilla MD, 25 mg at 01/24/212115 ??? OLANZapine (ZyPREXA ZYDIS) disintegrating tablet 5 mg, 5 mg, oral, BID, Kevin Albert MD, 5 mg at 01/24/212115 ??? ondansetron ODT (ZOFRAN-ODT) disintegrating tablet 4 mg, 4 mg, oral, Q6H PRN, 4 mg at 01/22/21 1105 OR [DISCONTINUED] ondansetron (ZOFRAN) injection 4 mg, 4 mg, intravenous, Q6H PRN, Oracio Jeffries NP, 4 mg at 01/18/21 2218 ??? oxyCODONE (ROXICODONE) tablet 5 mg, 5 mg, oral, QID PRN, Francisco Padilla MD, 5 mg at 01/24/212114 ??? polyethylene glycol (MIRALAX) packet 17 g, 17 g, oral, Daily with lunch, Francisco Padilla MD, 17 g at 01/21/21 1127 ??? ramelteon (ROZEREM) tablet 8 mg, 8 mg, oral, Nightly PRN, Bethany Connor NP, 8 mg at 120 ??? senna-docusate (PERICOLACE) 8.6-50 mg per tablet 2 tablet, 2 tablet, oral, BID, Francisco Padilla MD, 2 tablet at 01/24/212115 ??? Saline lock IV, , , Once AND sodium chloride 0.9% flush 0.5-20 mL, 0.5- 20 mL, intra-catheter, Q8H ELIU, 10 mL at 01/24/212115 AND sodium chloride 0.9% flush 0.5-20 mL, 0.5-20 mL, intra-catheter, PRN, Oracio Jeffries NP ??? sodium chloride 0.9% flush 10 mL, 10 mL, intravenous, PRN, Angela Abdul MD, 10 mL at 01/17/21 1242 ??? sodium chloride 0.9% flush 10 mL, 10 mL, intravenous, PRN, Angela Abdul MD ??? traMADoL (ULTRAM) tablet 50 mg, 50 mg, oral, BID PRN, Harper Guillaume MD, 50 mg at 01/24/21 1723 Lab/Radiology/Diagnostic Review: No results found for this or any previous visit (from the past 24 hour(s)). ECG 12 lead Result Date: 01/15/2021 Narrative: Vent Rate: 119 bpm RR Interval: 503 msec RI Interval: 136 msec QRS Duration: 79 msec QT Interval: 427 msec QTC Interval: 498 msec P-R-T [place]: 67 - 83 - [address] DEVIATION AND MODERATE T-WAVE ABNORMALITY, CONSIDER INFERIOR ISCHEMIA ABNORMAL ECG Electronically SignedBy: Dr. Con Hughes [facility] ECG 12 lead Result Date: 01/15/2021 Narrative: Vent Rate: 62 bpm RR Interval: 957 msec RI Interval: 142 msec QRS Duration: 88 msec QT Interval: 456 msec QTC Interval: 462 msec P-R-T [place]: 52 - 60 - 72 degrees SINUS RHYTHM NORMAL ECG Electronically Signed By: Dr. Cno Hughes [facility] ECG 12 lead Result Date: 01/14/2021 Narrative: Vent Rate: 92 bpm RR Interval: 648 msec RI Interval: 133 msec QRS Duration: 86 msec QT Interval: 392 msec QTC Interval: 442 msec P-R-T [place]: 75 - 83 - 76 [address] DEPRESSION BORDERLINE ECG Electronically Signed By: Dr. Con Hughes [facility] CT Abdomen Pelvis WO Contrast Result Date: 01/14/2021 Narrative: EXAMINATION: CT ABDOMEN PELVIS WO CONTRAST TECHNIQUE: Computed tomographic examination of the abdomen and pelvis is performed without intravenous contrast HISTORY: Right-sided abdominal pain evaluate kidney stone COMPARISON:02/06/2020 FINDINGS: Visualized lung bases are normal. The liver, spleen, pancreas, adrenal glands are normal. There is nonobstructing bilateral renal calculi. However, there are no ureteral calculi there is no hydronephrosis. No bladder calculi seen. There is no obstruction, pneumoperitoneum or free fluid. Diffuse diverticulosis present there is no acute diverticulitis. There is been a prior partial colonic resection. Moderate amount of stool is noted within the rectosigmoid colon compatible with constipation or obstipation. Diffuse atherosclerotic disease of the aorta seen. Osseous windows demonstrate multilevel degenerative disc disease. Multiple injection granulomas seen in the subcutaneous tissues. Impression: 1. Findings compatible with constipation or obstipation. 2 nonobstructing renal calculi. Electronically signed by: Mehdi Meyers M.D., MPH XR Chest Pa Lateral 2 Vw Result Date: 01/14/2021 Narrative: EXAMINATION: XR CHEST PA LATERAL 2 VIEWS HISTORY: The patient is a 55-year-old female who presents with chest pain. TECHNIQUE: PA and lateral view of the chest. FINDINGS: There is hyperinflation of the lungs. No focal infiltrate. Cardiovascular structures unremarkable. Impression: Hyperinflation of the lungs. Electronically signed by: Rakesh Palacio M.D. Stress Test for Myocardial Perfusion Result Date: 01/17/2021 Narrative: [place] [address] MPI Imaging Report Patient Name: MADISON WEINBERG J : 1965 Study Date: 01/17/2021 12:20:00 PM Gender: F Tech: ELMER Location: [id number] Ref.Provider:ANA ELLIS Height(Cm): BSA: Weight(Kg): Order Provider: ANGELA ABDUL Procedures: Pharmacologic SPECT Report.: Myocardial perfusion imaging with Tetrofosmin SPECT at rest and post regadenoson (Lexiscan) infusion. Indications: Chest Pain. Findings: Procedure Data: Resting HR 72 bpm. Predicted Maximal HR 165 bpm. Target HR: 140 bpm. Percent Max Predicted HR Achieved: 55.15 %. Baseline BP: 145/82mmHg. Peak BP: 144/74 mmHg. Exercise Time: 0.49. Reason for Termination: Lexiscan protocol complete. Resting ECG: Normal resting ECG. Post Pharm ECG: No diagnostic ST changes. Arrhythmia: Rare PVCs. Cardiac Symptoms With Stress: Symptoms with stress were Dyspnea. Symptoms were resolved with rest. Co nclusions: 1. Test negative for pharmacologic induced inducible ishemia by electrocardiographic criteria at maximal work load. 2. SPECT to follow and should be correlated with this study. Electronically Signed By: Tony Mosley MD 2021-01-17 15:20:16 CDT Stress Test for Myocardial Perfusion Result Date: 01/17/2021 Narrative: [place] [address] MPI Imaging Report ADDENDUM Patient Name: MADISON WEINBERG : 1965 Study Date: 01/16/2021 12:41:39 PM Gender: F Tech: [facility] Location: [id number] Ref.Provider: ANA ELLIS Height(Cm): BSA: Weight(Kg): Heart Rate: 140 Order Provider: ANGELA ABDUL Procedures: Pharmacologic SPECT Report.: Myocardial perfusion imaging with Tetrofosmin SPECT at rest andpost regadenoson (Lexiscan) infusion. Indications: Chest Pain. Findings: Procedure Data: Resting HR72 bpm. Peak HR: 124 bpm. Predicted Maximal HR 165 bpm. Target HR: 140 bpm. Percent Max Predicted HR Achieved: 75.15 %. Baseline BP: 156/87 mmHg. Peak BP: 148/63 mmHg. Exercise Time: 00:38. Reason for Termination: Lexiscan protocol complete. Resting ECG: Normal sinus rhythm. Post Pharm ECG: No diagnostic ST changes. Arrhythmia: No arrhythmias seen. Cardiac Symptoms With Stress: Symptoms with stress were Dyspnea. Symptoms were resolved with rest. BP Response: Blood pressure response is appropriate. Conclusions: 1. Test negative for pharmacologic induced inducible ishemia by electrocardiographic criteria at maximal work load. 2. SPECT to follow and should be correlated with this study. Electronically Signed By: Harper Feliciano DO, MATIAS LEEANN NEREIDA 2021-01-17 10:00:36 CDT CC: CC: Transthoracic Echo Complete W Doppler/CF Result Date: 01/17/2021 Narrative: [place] [address] Echocardiogram Report Patient Name: MADISON WEINBERG : 1965 Study Date: 01/17/2021 9:19:18 AM Gender: F Tech: NIGEL Location: [id number] Ref.Provider: ANA ELLIS Height(Cm): 165 BSA: 1.44 Weight(Kg): 45 Heart Rate: 69 BP: 132/86 Quality: Good OrderProvider: AGNELA ABDUL Procedures: Echocardiographic Report: Transthoracic echocardiogram with complete 2D, M-Mode, and color Doppler examination. Indications: Chest Pain. Measurements: 2D/M Mode Doppler Measurement Value Normal Range Measurement Value Normal Range EF Teich 2D 69.8 [ 55.0 - 70.0 ] percent KANDIS Vmax 1.56 [ 2.00 - 4.00 ] cm2 EF Mod 4C 67.6 [ 55.0 - 70.0 ] percent AV Mean PG 5 [ 2 -4 ] mmHg LVIDd 2D 4.51 [ 3.90 - 5.30 ] cm AV Peak Chuck 1.58 [ 1.00 - 1.70 ] m/s LVIDs 2D 2.74 [ 2.30 - 3.90 ] cm AV VTI 30.51 cm LVPWd 2D 0.80 [ 0.60 - 1.00 ] cm LVOT Diam 1.77 [ 1.70 - 2.10 ] cm IVSd 2D 0.51 [ 0.60 - 0.90 ] cm LVOT Peak Chuck 1.00 [ 0.70 - 1.10 ] m/s LA Dimension MM 2.86 [ 2.70 - 3.80 ] cm LVOT VTI 18.62 [ 20.00 - 30.00 ] cm AoR Diam MM 2.60 [ 2.60 - 3.70 ] cm MV E Peak Chuck 0.83[ 0.60 - 1.30 ] m/s LA Volume Index 14.06 [ 16.00 - 28.00 ] cc/m2 MV A Peak Chuck 0.91 [ 1.00 - 1.20 ] m/s ACS MM 1.43 cm MV PHT 59 [ 20 - 100 ] msec MVA 3.70 MV Decel Time 199 [ 104 - 258 ] msec PV Peak Chuck 0.84 [ 0.40 - 0.80 ] m/s TR Peak Chuck 2.22 [ 1.00 - 2.80 ] m/s TR Peak PG 20 mmHg RVSP 25.00 [ 10.00 - 36.00 ] mmHg E' 0.08 E/E' 10.92 Findings: Atrial Septum: Normal atrial septum. Left Ventricle: Normal left ventricular size. Normal left ventricular systolic function with no focal wall motion abnormalities. Left ventricular wall thickness upper limits of normal. Impaired diastolic relaxation Grade I. Ejection fraction is measured at 70 %. Left Atrium: The left atrium is normal in size.Right Ventricle: Normal right ventricular size. Normal right ventricular systolic function. Right Atrium: The right atrium is normal in size. Aortic Valve: Normal structure of the aortic valve. Mitral Valve: Normal structure of the mitral valve. Trivial regurgitation of the mitral valve. Pulmonic Valve: Normal structure of the pulmonic valve. Tricuspid Valve: Normal structure of the tricuspid valve. Normal right ventricular systolic pressure. Estimated peak RVSP is 25 mmHg. Trivial regurgitation in the tricuspid valve. Pericardium: Normal pericardium with no significant pericardial effusion. Aorta: Normal aortic root. IVC: Normal size and normal respiratory collapse consistent with normal right atrial pressure (<5 mmHg). Pulmonary Artery: Normal pulmonary artery size. Conclusions: Normal left ventricular size. Normal left ventricular systolic function with no focal wall motion abnormalities. Left ventricular wall thickness upper limits of normal. Impaired diastolic relaxation GradeI. Ejection fraction is measured at 70 %. Normal structure of the mitral valve. Trivial regurgitation of the mitral valve. Normal structure of the tricuspid valve. Normal right ventricular systolic pressure. Estimated peak RVSP is 25 mmHg. Trivial regurgitation in the tricuspid valve. Electronically Signed By: Tony Mosley MD 2021-01-17 11:49:07 CDT NM MPI SPECT (Rest and/or Stress) Multiple Studies Result Date: 01/17/2021 Narrative: EXAMINATION: MYOCARDIAL IMAGING (PHARMACOLOGIC-STRESS AND REST/SPECT/CT) DATE OF STUDY: 01/16/2021 RADIOPHARMACEUTICAL: 10.1 mCi, 27.4 mCi Tc-99m tetrofosmin i.v. HISTORY: 55 year old femalewith a history of hepatitis, renal disease, DVT, hyperlipemia presenting with chest pain. Evaluate for ischemia and/or myocardial infarction. The patient's body mass index (BMI) was 16. The electrocardiogram during infusion of the pharmacologic agent was negative for ischemia. FINDINGS: Both stressand rest imaging were performed, in the following order: rest/stress Stress imaging: An intravenousinfusion of Regadenoson (0.4 mg of A2A adenosine receptor agonist Regadenoson (Lexiscan), infused intravenously over approximately 10 seconds, followed approximately after another 20 seconds by tracer infusion) was performed without low level exercise on the date indicated above. A complete description of the stress test and electrocardiographic results supervised by staff of the [facility] is available in the [facility] electronic medical record. Standard myocardial perfusion images wereobtained after tracer injection at the peak effect of the drug. Low-dose CT images spanning the heart were obtained for attenuation correction. Rest Imaging: Standard myocardial perfusion images wereobtained after resting tracer injection. Low-dose CT images spanning the heart were obtained for attenuation correction. COMPARISON: None available. The stress images were repeated as on initial images there was motion artefact in the anteroseptal wall. The repeat stress images on the following daywere reviewed for image quality, and reveal no significant artifacts. There is normal distribution of activity in the left and right ventricular myocardium on both stress and rest images. Gated post-stress images demonstrate normal left ventricular volume, normal left ventricular wall motion and normal ejection fraction of >70% % (normal >45%). Additional gated rest images demonstrate normal left ventricular wall motion and a resting left ventricular ejection fraction of 64%. Incidental findings on the low-dose CT images: mild aortic atherosclerosis, small area of fatty infiltration in the liver. Impression: 1. Normal pharmacologic-stress and rest myocardial perfusion. 2. Normal left ventricular size and systolic function. Dictated by: Reji Romero M.D. The radiology attending physician has personally reviewed this study, and had reviewed and/or edited this written report and agrees withit. Electronically signed by: Vilma Lamb M.D. US Retroperitoneal Complete Result Date: 01/16/2021 Narrative: EXAMINATION: US RETROPERITONEAL COMPLETE HISTORY: The patient is a 55-year-old female who presents with acute renal failure. TECHNIQUE: Transverse and sagittal images were obtained along with color Doppler imaging. FINDINGS: The right kidney measures 9.2 x 4.2 x 3.8 cm and the left kidney measures 8.9 x 4.7 x 5.4 cm in size. No hydronephrosis or perinephric fluid collection. There is atiny calculus in the left kidney which is not causing obstruction. Renal cortical thickness is normal. There is slight increase in renal cortical echogenicity. The urinary bladder was not visualized and cannot be commented on. Impression: Slight increase in renal cortical echogenicity bilaterally, consistent with some degreeof chronic renal parenchymal disease. Electronically signed by: Rakesh Palacio M.D. ASSESSMENT/PLAN History of DVT (deep vein thrombosis) Elevated troponin Hepatitis Tylenol overdose JHOANA (acute kidney injury) (CMS/HCC) NSAID overdose Bandemia High anion gap metabolic acidosis Hypokalemia Right lower quadrant abdominal pain Suicidal ideation Frailty Severe protein-calorie malnutrition (CMS/HCC) ?? 1. JHOANA from volume contraction and NSAID use. 2. Possible underling CKD with hematuria and proteinuria. 3. Hx of nephrolothiasis per patient. 4. NAGMA. 5. Leukocytosis. 6. Abd pain. 7. Reported suicidal ideation. 8. Severe hypokalemia. 9. Anemia. ?? PLAN ?? 1. JHOANA resolved, push PO fluids. 2. Replace K PRN. 3. Basic JHOANA manning, r/o vasculitis, doubt! 4. Renal US, noted, b/l echogenic kidneys. 5. Cards fu. 6. Daily labs. 7. Appreciate residential sales consultant input. 8. DC planning, no changes by me again today. ?? I can be reached at [phone] with any concerns. Thank you Ru Jin MD for the consult. Jorje Osorio MD [employer] [phone] * Shantanu Jacobsen RN - 01/24/2021 8:12 PM CDT Pt repots chest tightness and pain. * Ru Jin MD - 01/24/2021 3:43 PM CDT General Medicine Progress Note Interval Events: This is a 55-year-old female with history of anxiety, DVT, endometriosis who came to the hospital with complaint of abdominal pain. Initial CT abdomen/pelvis done on 01/13/2021 showed: Findings compatible with constipation or obstipation. Chest x-ray did not reveal any acute findings. ?? Patient was also noted to have findings of elevated troponin. Cardiology was consulted. ?? Nuclear cardiac stress test done on 01/16/2021 showed: Normal stress test and myocardial perfusion.Nuclear portion of the stress test was also negative. ?? Repeat nuclear portion of the stress test noted on 01/17/2021 was: Negative for pharmacologic induced inducible ischemia. ?? Abdominal ultrasound also done on 01/16/2021 was: Negative. ?? Main hospital course has been notable for psychiatric illness. Patient lives at home with her and was primarily brought to the hospital with concern for psychiatric issues. Patient noted to have history of depression, and psychosis and previous history of suicidal ideations. ?? Review of chart, discussion with staff and discussion with reveals that the patient has significant history of depression and has experienced visual hallucinations and delusions in the past. Patient has also has history of making suicidal statements to her . Patient's behavior is erratic and unpredictable. ?? There is significant concern regarding safety for herself as well as for others. Is potentially dangerous behavior exhibited by the patient including potentially overdosing on clonazepam. Patient is thinking is also noted to be disorganized and she is extremely unreliable historian. ?? From a medical standpoint-patient is medically stable for discharge. Plan is for transfer to inpatient psychiatry unit. Subjective: Chief complaint: Agitation. No new complaints. Objective: Vitals: 24hr Min/Max: Temp Min: 36.4 ??C (97.5 ??F) Max: 36.7 ??C (98.1 ??F) Pulse Min: 77 Max: 97 BP Min: 127/84 Max: 132/70 Resp Min: 18 Max: 18 SpO2 Min: 99 % Max: 100 % Most Recent: Vitals: 01/23/21 1604 01/23/21202101/24/21 0747 06/15/21 1200 BP: 127/84 132/70 129/83 128/83 BP Location: Right arm Left arm Left arm Left arm Patient Position: Lying Lying Lying Sitting Pulse: 77 90 97 81 Resp: 18 18 18 18 Temp: 36.7 ??C (98 ??F) 36.7 ??C (98.1 ??F) 36.4 ??C (97.5 ??F) 36.6 ??C (97.8 ??F) TempSrc: Oral Oral Oral Oral SpO2: 99% 100% 100% 100% Weight: Height: Intake/Output Summary (Last 24 hours) at 01/24/2021 1547 Last data filed at 01/24/2021 1145 Gross per 24 hour Intake 240 ml Output 2 ml Net 238 ml Physical Exam: Physical Exam GEN: Alert. NAD HENT: Normocephalic. Atraumatic. CVS: RRR CHEST: Clear bilaterally ABD: soft. ND EXT: no edema Lab/Radiology/Diagnostic Review: Reviewed. No results found for this or any previous visit (from the past 24 hour(s)). Assessment and Plan: Principal Problem: Chest pressure Active Problems: History of DVT (deep vein thrombosis) Elevated troponin Hepatitis Tylenol overdose JHOANA (acute kidney injury) ([facility]) NSAID overdose Bandemia High anion gap metabolic acidosis Hypokalemia Right lower quadrant abdominal pain Suicidal ideation Frailty Severe protein-calorie malnutrition (CMS/HCC) 1. Psychiatric illness. Affidavit updated by me yesterday. Patient now [facility]. 2. Chest pain. Associated with elevated troponin. No intervention planned at this time. 3. Hyperlipidemia. Continue Lipitor 20 mg daily. 4. Essential hypertension. Continue Lopressor 25 mg b.i.d.. Disposition: Awaiting for inpatient to psych Medical decision making complexity: Low Ru Jin MD Hospitalist [phone] 13:47 PM * Kevin Meraz MD - 01/24/2021 2:23 PM CDT [facility] - Cardiology [facility] Progress Note Admit Date: 01/13/2021 9:29 PM @HDAYS@ PCP: Lazarus Albert MD Patient seen and examined Chart , telemtry reviewed Symptoms No new events No chest pain or SOB Data Vitals: 01/23/21 1604 01/23/21 2022 01/24/21 0747 01/24/21 1200 BP: 127/84 132/70 129/83 128/83 BP Location: Right arm Left arm Left arm Left arm Patient Position: Lying Lying Lying Sitting Pulse: 77 90 97 81 Resp: 18 18 18 18 Temp: 36.7 ??C (98 ??F) 36.7 ??C (98.1 ??F) 36.4 ??C (97.5 ??F) 36.6 ??C (97.8 ??F) TempSrc: Oral Oral Oral Oral SpO2: 99% 100% 100% 100% Weight: Height: Intake/Output Summary (Last 24 hours) at 01/24/2021 1423 Last data filed at 01/24/2021 1145 Gross per 24 hour Intake 480 ml Output 2 ml Net 478 ml No results found for: WBC, HGB, HCT No results found for: SODIUM, POTASSIUM, CHLORIDE, CO2, BUN, CREATININE, GLUCOSE, CALCIUM No results found for: PTT No results found for: PT No results found for: INR No results found for: BNP No components found for: TROPONIN No results found for: CHOL, TRIG, HDL, LDLCALC No results found for: ALBUMIN, ALKPHOS, ALT, AST No components found for: MAGMGDL No results found for: TSH No results found for: T3FREE No results found for: Q2UMJXO Pain Assessment: No/denies pain Pain Score: 9 Meds MEDICATIONS FOR CURRENT ENCOUNTER: SCHEDULED MEDICATIONS: Scheduled Medications Medication Dose Route Frequency ??? aspirin enteric coated tablet 81 mg 81 mg oral Daily ??? atorvastatin (LIPITOR) tablet 20 mg 20 mg oral Daily ??? clonazePAM (KlonoPIN) tablet 1 mg 1 mg oral BID ??? cyclobenzaprine (FLEXERIL) tablet 10 mg 10 mg oral BID ??? dicyclomine (BENTYL) tablet 10 mg 10 mg oral TID ??? folic acid (FOLVITE) tablet 1 mg 1 mg oral Daily with dinner ??? metoprolol tartrate (LOPRESSOR) immediate release tablet 25 mg 25 mg oral BID ??? OLANZapine (ZyPREXA ZYDIS) disintegrating tablet 5 mg 5 mg oral BID ??? polyethylene glycol (MIRALAX) packet 17 g 17 g oral Daily with lunch ??? senna-docusate (PERICOLACE) 8.6-50 mg per tablet 2 tablet 2 tablet oral BID ??? sodium chloride 0.9% flush 0.5-20 mL 0.5-20 mL intra-catheter Q8H ELIU CONTINUOUS MEDICATIONS: Continuous Medications Medication Dose Last Rate ?? PRN MEDICATIONS: PRN Medications Medication Dose Route Frequency Last Admin ? ? al & mag hydroxide pazsapdutrc-wleyaibazuhoknc-pvddgilmn-nystatin (MAGIC MOUTHWASH) suspension 1-1-1-1 15 mL swish & spit Q4H PRN 15 mL at 01/22/21 2347 ??? ondansetron ODT (ZOFRAN-ODT) disintegrating tablet 4 mg 4 mg oral Q6H PRN 4 mg at 01/22/21 1105 ??? oxyCODONE (ROXICODONE) tablet 5 mg 5 mg oral QID PRN 5 mg at 01/24/21 1409 ??? ramelteon (ROZEREM) tablet 8 mg 8 mg oral Nightly PRN 8 mg at 01/23/21 2128 ??? sodium chloride 0.9% flush 0.5-20 mL 0.5-20 mL intra-catheter PRN ??? sodium chloride 0.9% flush 10 mL 10 mL intravenous PRN 10 mL at 01/17/21 1242 ??? sodium chloride 0.9% flush 10 mL 10 mL intravenous PRN ??? traMADoL (ULTRAM) tablet 50 mg 50 mg oral BID PRN 50 mg at 01/24/21 0152 Allergies Allergen Reactions ??? Codeine Hives ??? Duloxetine Mental status changes Reaction: CONFUSION, ??? Gabapentin Mental status changes ??? Paxil [Paroxetine] Mental status changes ??? Wellbutrin [Bupropion] Mental status changes ??? Zoloft [Sertraline] Mental status changes Review of Systems: All systems were reviewed. Pertinent positives are mentioned above. Exam General appearance: alert, cooperative, no distress Neck: No JVD. No carotid Bruit Chest: Decreased air entry bilaterally,No added sounds Cardiovascular: regular rate, rhythm, normal S1 and S2, without rub, gallops or murmur Abdomen: soft without mass, non-tender, with normal bowel sounds Extremities: no clubbing, cyanosis or edema. Peripheral pulse palpable Assessment /Plan Chest pain -no recurrence -non cardiac -Mildly elevated trops without acute rise, no c/w ACS -Echo noted above, no rwma, EF 70% -Stress test negative for ischemia -No further CV work up indicated at this time ?? HLD -At goal -on statin ?? Hx DVT ?? Tylenol overdose Anxiety and Depression Suicidal Ideation -Psych following. Involuntary admission to psych facility pending ??Clinically has improved ?? PLAN Cardiovascular status stable Kevin Meraz MD,[facility] 01/24/2021 02:33 PM [phone] * Cheryl Puente PTA - 01/24/2021 10:29 AM CDT Physical Therapy PT PROGRESS NOTE Madison Weinberg 55 y.o. 1965 Past Medical History: Diagnosis Date ??? Anemia ??? Anxiety disorder ??? Colon obstruction (CMS/HCC) ??? DVT (deep venous thrombosis) (CMS/HCC) 11/2018 ??? Endometriosis Endometriosis-21 times ??? Hyperlipidemia [...] ??? LAPAROSCOPIC ENDOMETRIOSIS FULGURATION Endometriosis-21 times: lap/laser Patient Active Problem List Diagnosis ??? Endometriosis ??? Multiple-type hyperlipidemia ??? Anxiety state ??? Acute cerebrovascular insufficiency ??? Abdominal pain ??? 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 History of DVT (deep vein thrombosis) ??? Elevated troponin ??? Chest pressure ??? Hepatitis ??? Tylenol overdose ??? JHOANA (acute kidney injury) (CMS/HCC) ??? NSAID overdose ??? Bandemia ??? High anion gap metabolic acidosis ??? Hypokalemia ??? Right lower quadrant abdominal pain ??? Suicidal ideation ??? Frailty ??? Severe protein-calorie malnutrition (CMS/HCC) TIME IN: 1029 TIME OUT: 1050 SUBJECTIVE ready to go home MENTAL STATUS/ORIENTATION: Alert and oriented x self PAIN: Pre-therapy pain level: 8/10 Pain location: R side Pain intervention: medication already given Post-therapy pain level/response to intervention: unchanged OBJECTIVE PRECAUTIONS: fall risk, bed/chair alarm, sitter APPEARANCE/POSTURE: pt supine w/HOB elevated, alarm active, sitter present, paper scrubs, hospital socks, and agreeable to therapy. MOBILITY DOCUMENTATION: Bed Mobility/Transfers: Pt transfers indep supine to/from sit, indep sit to/from stand. Gait: Pt amb 500' x1 w/o AD indep. Pt performed 8 steps w/1 handrail mod I reciprocal pattern. APPEARANCE/POSTURE (end of session): pt supine in bed, sitter present. EDUCATION: none RESPONSE TO EDUCATION: n/a ASSESSMENT Activity tolerance/response to P.T.: Pt tolerated increased amb & stairs w/o AD indep to mod I for all mobility. D/c from PT at this time. Barriers to learning: Emotional Barriers to discharge: Pain, Long standing deficits, Medical complications and Stairs at home Patient continues progressing toward previously set goals which remain appropriate at this time. PLAN Patient to be seen for P.T. 3-5 times per week to address previously established deficits and goals. DISCHARGE LOCATION RECOMMENDATIONS: HOME w/family If this is the last note, please consider this the discharge summary. Cosigned by Phill Rolle, PT at 01/24/2021 11:58 AM CDT * Ru Jin MD - 01/23/2021 6:12 PM CDT General Medicine Progress Note Interval Events: Discharge planning underway. Patient currently noted to be [facility] a waiting list [facility]. I updated the attestation today with a notary. Subjective: Chief complaint: Agitation. No new complaints. Objective: Vitals: 24hr Min/Max: Temp Min: 36.5 ??C (97.7 ??F) Max: 36.7 ??C (98.1 ??F) Pulse Min: 77 Max: 104 BP Min: 112/63 Max: 138/78 Resp Min: 18 Max: 18 SpO2 Min: 97 % Max: 100 % Most Recent: Vitals: 01/23/21 1210 01/23/21 1600 01/23/21 1604 01/23/212021 BP: 138/78 127/84 132/70 BP Location: Right arm Right arm Left arm Patient Position: Sitting Lying Lying Pulse: 81 87 77 90 Resp: 18 18 18 Temp: 36.6 ??C (97.9 ??F) 36.7 ??C (98 ??F) 36.7 ??C (98.1 ??F) TempSrc: Oral Oral Oral SpO2: 97% 99% 100% Weight: Height: Intake/Output Summary (Last 24 hours) at 01/23/2021 2134 Last data filed at 01/23/2021 1430 Gross per 24 hour Intake 480 ml Output 2 ml Net 478 ml Physical Exam: Physical Exam GEN: Alert. NAD HENT: Normocephalic. Atraumatic. CVS: RRR CHEST: Clear bilaterally ABD: soft. ND EXT: no edema Lab/Radiology/Diagnostic Review: Reviewed. Recent Results (from the past 24 hour(s)) Troponin T high-sensitivity series (baseline, 2hr, 4hr, 6hr) Collection Time: 01/23/21 4:55 AM Result Value Ref Range Trop T hs 11 <=14 ng/L Troponin T high-sensitivity 4-hour Collection Time: 01/23/21 8:25 AM Result Value Ref Range Trop T hs 14 <=14 ng/L Trop T hs delta 3 ng/L Trop T hs interp Insignificant Troponin T high-sensitivity 6-hour Collection Time: 01/23/21 11:10 AM Result Value Ref Range Trop T hs 13 <=14 ng/L Trop T hs delta 2 ng/L Trop T hs interp Insignificant Assessment and Plan: Principal Problem: Chest pressure Active Problems: History of DVT (deep vein thrombosis) Elevated troponin Hepatitis Tylenol overdose JHOANA (acute kidney injury) ([facility]) NSAID overdose Bandemia High anion gap metabolic acidosis Hypokalemia Right lower quadrant abdominal pain Suicidal ideation Frailty Severe protein-calorie malnutrition (CMS/HCC) 1. Psychiatric illness. Affidavit updated by me today. Patient now on waiting list for [facility]. 2. Chest pain. Associated with elevated troponin. No intervention planned at this time. 3. Hyperlipidemia. Continue Lipitor 20 mg daily. 4. Essential hypertension. Continue Lopressor 25 mg b.i.d.. Disposition: Awaiting for inpatient to psych Medical decision making complexity: Low Ru Jin MD Hospitalist [phone] :34 PM * Jorje Osorio MD - 01/23/2021 1:49 PM CDT Nephrology Progress Note [facility] SUBJECTIVE Renal fn is improved. Agitation is better. All labs reviewed. Overall clinically unchanged. Some psych issues still need resolved. Eager to go home. OBJECTIVE Vitals: Vitals: 01/23/21 0800 01/23/21 0802 01/23/21 1200 01/23/21 1210 BP: 115/75 138/78 BP Location: Right arm Right arm Patient Position: Lying Sitting Pulse: 87 91 92 81 Resp: 18 18 Temp: 36.6 ??C (97.9 ??F) 36.6 ??C (97.9 ??F) TempSrc: Oral Oral SpO2: 100% 97% Weight: Height: Intake/Output Summary (Last 24 hours) at 01/23/2021 1349 Last data filed at 01/23/2021 1115 Gross per 24 hour Intake 720 ml Output 2 ml Net 718 ml REVIEW OF SYSTEMS Review of Systems Constitutional: Negative. HENT: Negative. Eyes: Negative. Respiratory: Negative. Cardiovascular: Negative. Gastrointestinal: Negative. Genitourinary: Negative. Musculoskeletal: Negative. Skin: Negative. Allergic/Immunologic: Negative. Hematological: Negative. All other systems reviewed and are negative. PHYSICAL EXAM Physical Exam Constitutional: Appears well-developed. HENT: wnl Head: Normocephalic. Eyes: Pupils are equal, round, and reactive to light. Neck: Normal range of motion. Neck supple. Cardiovascular: Normal rate. Pulmonary/Chest: Effort normal and breath sounds normal. Abdominal: Soft. Musculoskeletal: Normal range of motion. Neurological: Alert, oriented. Skin: Skin is warm. Nursing note and vitals reviewed. MEDICATIONS Current Facility-Administered Medications: ? ? al & mag hydroxide lrjbsejvifp-mkalonxdfembvji-itfledwuf-nystatin (MAGIC MOUTHWASH) suspension 1-1-1-1, 15 mL, swish & spit, Q4H PRN, Harper Guillaume MD, 15 mL at 01/22/21 2347 ??? aspirin enteric coated tablet 81 mg, 81 mg, oral, Daily, Francisco Padilla MD, 81 mg at 01/23/21 0859 ??? atorvastatin (LIPITOR) tablet 20 mg, 20 mg, oral, Daily, Angela Abdul MD, 20 mg at 01/23/21 0859 ??? clonazePAM (KlonoPIN) tablet 1 mg, 1 mg, oral, BID, Francisco Padilla MD, 1 mg at 01/23/21 0859 ??? cyclobenzaprine (FLEXERIL) tablet 10 mg, 10 mg, oral, BID, Francisco Padilla MD, 10 mg at 01/23/21 0859 ??? dicyclomine (BENTYL) tablet 10 mg, 10 mg, oral, TID, Francisco Padilla MD, 10 mg at 01/23/21 0858 ??? folic acid (FOLVITE) tablet 1 mg, 1 mg, oral, Daily with dinner, Francisco Padilla MD, 1mg at 01/22/21 1649 ??? metoprolol tartrate (LOPRESSOR) immediate release tablet 25 mg, 25 mg, oral, BID, Francisco Padilla MD, 25 mg at 01/23/21 0858 ??? OLANZapine (ZyPREXA ZYDIS) disintegrating tablet 5 mg, 5 mg, oral, BID, Kevin Albert MD, 5 mg at 01/23/21 0858 ??? ondansetron ODT (ZOFRAN-ODT) disintegrating tablet 4 mg, 4 mg, oral, Q6H PRN, 4 mg at 01/22/21 1105 OR [DISCONTINUED] ondansetron (ZOFRAN) injection 4 mg, 4 mg, intravenous, Q6H PRN, Oracio Jeffries NP, 4 mg at 01/18/21 2218 ??? oxyCODONE (ROXICODONE) tablet 5 mg, 5 mg, oral, QID PRN, Francisco Padilla MD, 5 mg at 01/23/21 0254 ??? polyethylene glycol (MIRALAX) packet 17 g, 17 g, oral, Daily with lunch, Francisco Padilla MD, 17 g at 01/21/21 1127 ??? ramelteon (ROZEREM) tablet 8 mg, 8 mg, oral, Nightly PRN, Bethany Connor NP, 8 mg at 351 ??? senna-docusate (PERICOLACE) 8.6-50 mg per tablet 2 tablet, 2 tablet, oral, BID, Francisco Padilla MD, 2 tablet at 01/23/21 0859 ??? Saline lock IV, , , Once AND sodium chloride 0.9% flush 0.5-20 mL, 0.5- 20 mL, intra-catheter, Q8H ELIU, 10 mL at 01/20/21 1600 AND sodium chloride 0.9% flush 0.5-20 mL, 0.5-20 mL, intra-catheter, PRN, Oracio Jeffries NP ??? sodium chloride 0.9% flush 10 mL, 10 mL, intravenous, PRN, Angela Abdul MD, 10 mL at 01/17/21 1242 ??? sodium chloride 0.9% flush 10 mL, 10 mL, intravenous, PRN, Angela Abdul MD ??? traMADoL (ULTRAM) tablet 50 mg, 50 mg, oral, BID PRN, Harper Guillaume MD, 50 mg at 01/19/21 0349 Lab/Radiology/Diagnostic Review: Recent Results (from the past 24 hour(s)) Troponin T high-sensitivity series (baseline, 2hr, 4hr, 6hr) Collection Time: 01/23/21 4:55 AM Result Value Ref Range Trop T hs 11 <=14 ng/L Troponin T high-sensitivity 4-hour Collection Time: 01/23/21 8:25 AM Result Value Ref Range Trop T hs 14 <=14 ng/L Trop T hs delta 3 ng/L Trop T hs interp Insignificant Troponin T high-sensitivity 6-hour Collection Time: 01/23/21 11:10 AM Result Value Ref Range Trop T hs 13 <=14 ng/L Trop T hs delta 2 ng/L Trop T hs interp Insignificant ECG 12 lead Result Date: 01/15/2021 Narrative: Vent Rate: 119 bpm RR Interval: 503 msec RI Interval: 136 msec QRS Duration: 79 msec QT Interval: 427 msec QTC Interval: 498 msec P-R-T [place]: 67 - 83 - [address] DEVIATION AND MODERATE T-WAVE ABNORMALITY, CONSIDER INFERIOR ISCHEMIA ABNORMAL ECG Electronically SignedBy: Dr. Con Hughes [facility] ECG 12 lead Result Date: 01/15/2021 Narrative: Vent Rate: 62 bpm RR Interval: 957 msec RI Interval: 142 msec QRS Duration: 88 msec QT Interval: 456 msec QTC Interval: 462 msec P-R-T [place]: 52 - 60 - 72 degrees SINUS RHYTHM NORMAL ECG Electronically Signed By: [facility]. [facility] Result Date: 01/14/2021 Narrative: Vent Rate: 92 bpm RR Interval: 648 msec RI Interval: 133 msec QRS Duration: 86 msec QT Interval: 392 msec QTC Interval: 442 msec P-R-T [place]: 75 - 83 - 76 [address] DEPRESSION BORDERLINE ECG Electronically Signed By: Dr. Con Hughes [facility] CT Abdomen Pelvis WO Contrast Result Date: 01/14/2021 Narrative: EXAMINATION: CT ABDOMEN PELVIS WO CONTRAST TECHNIQUE: Computed tomographic examination of the abdomen and pelvis is performed without intravenous contrast HISTORY: Right-sided abdominal pain evaluate kidney stone COMPARISON:02/06/2020 FINDINGS: Visualized lung bases are normal. The liver, spleen, pancreas, adrenal glands are normal. There is nonobstructing bilateral renal calculi. However, there are no ureteral calculi there is no hydronephrosis. No bladder calculi seen. There is no obstruction, pneumoperitoneum or free fluid. Diffuse diverticulosis present there is no acute diverticulitis. There is been a prior partial colonic resection. Moderate amount of stool is noted within the rectosigmoid colon compatible with constipation or obstipation. Diffuse atherosclerotic disease of the aorta seen. Osseous windows demonstrate multilevel degenerative disc disease. Multiple injection granulomas seen in the subcutaneous tissues. Impression: 1. Findings compatible with constipation or obstipation. 2 nonobstructing renal calculi. Electronically signed by: Mehdi Meyers M.D., MPH XR Chest Pa Lateral 2 Vw Result Date: 01/14/2021 Narrative: EXAMINATION: XR CHEST PA LATERAL 2 VIEWS HISTORY: The patient is a 55-year-old female who presents with chest pain. TECHNIQUE: PA and lateral view of the chest. FINDINGS: There is hyperinflation of the lungs. No focal infiltrate. Cardiovascular structures unremarkable. Impression: Hyperinflation of the lungs. Electronically signed by: Rakesh Palacio M.D. Stress Test for Myocardial Perfusion Result Date: 01/17/2021 Narrative: [place] [address] MPI Imaging Report Patient Name: MADISON WEINBERG J : 1965 Study Date: 01/17/2021 12:20:00 PM Gender: F Tech: [facility] Location: [id number] Ref.Provider:ANA ELLIS Height(Cm): BSA: Weight(Kg): Order Provider: ANGELA ABDUL Procedures: Pharmacologic SPECT Report.: Myocardial perfusion imaging with Tetrofosmin SPECT at rest and post regadenoson (Lexiscan) infusion. Indications: Chest Pain. Findings: Procedure Data: Resting HR 72 bpm. Predicted Maximal HR 165 bpm. Target HR: 140 bpm. Percent Max Predicted HR Achieved: 55.15 %. Baseline BP: 145/82mmHg. Peak BP: 144/74 mmHg. Exercise Time: 0.49. Reason for Termination: Lexiscan protocol complete. Resting ECG: Normal resting ECG. Post Pharm ECG: No diagnostic ST changes. Arrhythmia: Rare PVCs. Cardiac Symptoms With Stress: Symptoms with stress were Dyspnea. Symptoms were resolved with rest. Co nclusions: 1. Test negative for pharmacologic induced inducible ishemia by electrocardiographic criteria at maximal work load. 2. SPECT to follow and should be correlated with this study. Electronically Signed By: Tony Mosley MD 2021-01-17 15:20:16 CDT Stress Test for Myocardial Perfusion Result Date: 01/17/2021 Narrative: [place] [address] MPI Imaging Report ADDENDUM Patient Name: MADISON WEINBERG : 1965 Study Date: 01/16/2021 12:41:39 PM Gender: F Tech: [facility] Location: [id number] Ref.Provider: ANA ELLIS Height(Cm): BSA: Weight(Kg): Heart Rate: 140 Order Provider: ANGELA ABDUL Procedures: Pharmacologic SPECT Report.: Myocardial perfusion imaging with Tetrofosmin SPECT at rest andpost regadenoson (Lexiscan) infusion. Indications: Chest Pain. Findings: Procedure Data: Resting HR72 bpm. Peak HR: 124 bpm. Predicted Maximal HR 165 bpm. Target HR: 140 bpm. Percent Max Predicted HR Achieved: 75.15 %. Baseline BP: 156/87 mmHg. Peak BP: 148/63 mmHg. Exercise Time: 00:38. Reason for Termination: Lexiscan protocol complete. Resting ECG: Normal sinus rhythm. Post Pharm ECG: No diagnostic ST changes. Arrhythmia: No arrhythmias seen. Cardiac Symptoms With Stress: Symptoms with stress were Dyspnea. Symptoms were resolved with rest. BP Response: Blood pressure response is appropriate. Conclusions: 1. Test negative for pharmacologic induced inducible ishemia by electrocardiographic criteria at maximal work load. 2. SPECT to follow and should be correlated with this study. Electronically Signed By: Harper Feliciano DO, LEEANN SALCEDO FASNC 2021-01-17 10:00:36 CDT CC: CC: Transthoracic Echo Complete W Doppler/CF Result Date: 01/17/2021 Narrative: [place] [address] Echocardiogram Report Patient Name: MADISON WEINBERG : 1965 Study Date: 01/17/2021 9:19:18 AM Gender: F Tech: NIGEL Location: [id number] Ref.Provider: ANA ELLIS Height(Cm): 165 BSA: 1.44 Weight(Kg): 45 Heart Rate: 69 BP: 132/86 Quality: Good OrderProvider: ANGELA ABDUL Procedures: Echocardiographic Report: Transthoracic echocardiogram with complete 2D, M-Mode, and color Doppler examination. Indications: Chest Pain. Measurements: 2D/M Mode Doppler Measurement Value Normal Range Measurement Value Normal Range EF Teich 2D 69.8 [ 55.0 - 70.0 ] percent KANDIS Vmax 1.56 [ 2.00 - 4.00 ] cm2 EF Mod 4C 67.6 [ 55.0 - 70.0 ] percent AV Mean PG 5 [ 2 -4 ] mmHg LVIDd 2D 4.51 [ 3.90 - 5.30 ] cm AV Peak Chuck 1.58 [ 1.00 - 1.70 ] m/s LVIDs 2D 2.74 [ 2.30 - 3.90 ] cm AV VTI 30.51 cm LVPWd 2D 0.80 [ 0.60 - 1.00 ] cm LVOT Diam 1.77 [ 1.70 - 2.10 ] cm IVSd 2D 0.51 [ 0.60 - 0.90 ] cm LVOT Peak Chuck 1.00 [ 0.70 - 1.10 ] m/s LA Dimension MM 2.86 [ 2.70 - 3.80 ] cm LVOT VTI 18.62 [ 20.00 - 30.00 ] cm AoR Diam MM 2.60 [ 2.60 - 3.70 ] cm MV E Peak Chuck 0.83 [0.60 - 1.30 ] m/s LA Volume Index 14.06 [ 16.00 - 28.00 ] cc/m2 MV A Peak Chuck 0.91 [ 1.00 - 1.20 ] m/s ACS MM 1.43 cm MV PHT 59 [ 20 - 100 ] msec MVA 3.70 MV Decel Time 199 [ 104 - 258 ] msec PV Peak Chuck 0.84 [ 0.40 - 0.80 ] m/s TR Peak Chuck 2.22 [ 1.00 - 2.80 ] m/s TR Peak PG 20 mmHg RVSP 25.00 [ 10.00 - 36.00 ] mmHg E' 0.08 E/E' 10.92 Findings: Atrial Septum: Normal atrial septum. Left Ventricle: Normal left ventricular size. Normal left ventricular systolic function with no focal wall motion abnormalities. Left ventricular wall thickness upper limits of normal. Impaired diastolic relaxation Grade I. Ejection fraction is measured at 70 %. Left Atrium: The left atrium is normal in size.Right Ventricle: Normal right ventricular size. Normal right ventricular systolic function. Right Atrium: The right atrium is normal in size. Aortic Valve: Normal structure of the aortic valve. Mitral Valve: Normal structure of the mitral valve. Trivial regurgitation of the mitral valve. Pulmonic Valve: Normal structure of the pulmonic valve. Tricuspid Valve: Normal structure of the tricuspid valve. Normal right ventricular systolic pressure. Estimated peak RVSP is 25 mmHg. Trivial regurgitation in the tricuspid valve. Pericardium: Normal pericardium with no significant pericardial effusion. Aorta: Normal aortic root. IVC: Normal size and normal respiratory collapse consistent with normal right atrial pressure (<5 mmHg). Pulmonary Artery: Normal pulmonary artery size. Conclusions: Normal left ventricular size. Normal left ventricular systolic function with no focal wall motion abnormalities. Left ventricular wall thickness upper limits of normal. Impaired diastolic relaxation GradeI. Ejection fraction is measured at 70 %. Normal structure of the mitral valve. Trivial regurgitation of the mitral valve. Normal structure of the tricuspid valve. Normal right ventricular systolic pressure. Estimated peak RVSP is 25 mmHg. Trivial regurgitation in the tricuspid valve. Electronically Signed By: Tony Mosley MD 2021-01-17 11:49:07 CDT NM MPI SPECT (Rest and/or Stress) Multiple Studies Result Date: 01/17/2021 Narrative: EXAMINATION: MYOCARDIAL IMAGING (PHARMACOLOGIC-STRESS AND REST/SPECT/CT) DATE OF STUDY: 01/16/2021 RADIOPHARMACEUTICAL: 10.1 mCi, 27.4 mCi Tc-99m tetrofosmin i.v. HISTORY: 55 year old femalewith a history of hepatitis, renal disease, DVT, hyperlipemia presenting with chest pain. Evaluate for ischemia and/or myocardial infarction. The patient's body mass index (BMI) was 16. The electrocardiogram during infusion of the pharmacologic agent was negative for ischemia. FINDINGS: Both stress and rest imaging were performed, in the following order: rest/stress Stress imaging: An intravenous infusion of Regadenoson (0.4 mg of A2A adenosine receptor agonist Regadenoson (Lexiscan), infused intravenously over approximately 10 seconds, followed approximately after another 20 seconds by tracer infusion) was performed without low level exercise on the date indicated above. A complete description of the stress test and electrocardiographic results supervised by staff of the Cardiovascular D ivision is available in the [facility] electronic medical record. Standard myocardial perfusion images were obtained after tracer injection at the peak effect of the drug. Low-dose CT images spanning the heart were obtained for attenuation correction. Rest Imaging: Standard myocardial perfusion images were obtained after resting tracer injection. Low-dose CT images spanning the heart were obtained for attenuation correction. COMPARISON: None available. The stress images were repeated as on initial images there was motion artefact in the anteroseptal wall. The repeat stress images on the following day were reviewed for image quality, and reveal no significant artifacts. There is normal distributionof activity in the left and right ventricular myocardium on both stress and rest images. Gated post-stress images demonstrate normal left ventricular volume, normal left ventricular wall motion and normal ejection fraction of >70% % (normal >45%). Additional gated rest images demonstrate peggy l left ventricular wall motion and a resting left ventricular ejection fraction of 64%. Incidental findings on the low-dose CT images: mild aortic atherosclerosis, small area of fatty infiltration inthe liver. Impression: 1. Normal pharmacologic-stress and rest myocardial perfusion. 2. Normal left ventricular size and systolic function. Dictated by: Reji Romero M.D. The radiology attending physician has personally reviewed this study, and had reviewed and/or edited this written report and agrees withit. Electronically signed by: Vilma Lamb M.D. US Retroperitoneal Complete Result Date: 01/16/2021 Narrative: EXAMINATION: US RETROPERITONEAL COMPLETE HISTORY: The patient is a 55-year-old female who presents with acute renal failure. TECHNIQUE: Transverse and sagittal images were obtained along with color Doppler imaging. FINDINGS: The right kidney measures 9.2 x 4.2 x 3.8 cm and the left kidney measures 8.9 x 4.7 x 5.4 cm in size. No hydronephrosis or perinephric fluid collection. There is atiny calculus in the left kidney which is not causing obstruction. Renal cortical thickness is normal. There is slight increase in renal cortical echogenicity. The urinary bladder was not visualized and cannot be commented on. Impression: Slight increase in renal cortical echogenicity bilaterally, consistent with some degreeof chronic renal parenchymal disease. Electronically signed by: Rakesh Palacio M.D. ASSESSMENT/PLAN History of DVT (deep vein thrombosis) Elevated troponin Hepatitis Tylenol overdose JHOANA (acute kidney injury) (CMS/HCC) NSAID overdose Bandemia High anion gap metabolic acidosis Hypokalemia Right lower quadrant abdominal pain Suicidal ideation Frailty Severe protein-calorie malnutrition (CMS/HCC) ?? 1. JHOANA from volume contraction and NSAID use. 2. Possible underling CKD with hematuria and proteinuria. 3. Hx of nephrolothiasis per patient. 4. NAGMA. 5. Leukocytosis. 6. Abd pain. 7. Reported suicidal ideation. 8. Severe hypokalemia. 9. Anemia. ?? PLAN ?? 1. JHOANA resolved, push PO fluids. 2. Replace K PRN. 3. Basic JHOANA manning, r/o vasculitis, doubt! 4. Renal US, noted, b/l echogenic kidneys. 5. IV ABX. 6. Daily labs. 7. Appreciate residential sales consultant input. 8. DC planning, no changes by me today. ?? I can be reached at [phone] with any concerns. Thank you Ru Jin MD for the consult. Jorje Osorio MD [employer] [phone] * Cheryl BarbaJuan M, DYE MACHINE TENDER - 01/23/2021 11:53 AM CDT Behavioral Health Services [facility] Follow-Up Note A review of provider note on 01/22/[address] Jin reported current disposition is awaiting psychiatric placement. Lumber Straightener/English As A Second Language Instructor??notes were reviewed. Patient's presentation has shown improvement. Patient presented with calm, pleasant tone and and normal speech. Patient was able to answer questions directly, appropriately and did not show confusionduring this 10 minute visit. Patient voiced her strong desire to return home. Patient denied any mood concerns. Patient denied hallucinations/delusions/paranoia. Patient denied SI. Patient reported conflict with her leading being the cause of her behaviors. Patient reports feeling hungry and sleeping really really good . Patient states I really don't want to go regarding psychiatric placement. When asked about comments made during last follow up visit, patient did not remember making statements regarding security guards shooting her. Patient reported that she has been cleared by all medical staff and is just waiting for psych to clear her. Patient gave verbal permission to speak with , Peña Weinberg and Friend/cousin Renuka Dietrich . Patient reported speaking with her and friend who she reported are in agreement of her returning home with support. Patient reported friend Renuka making plansto come stay with her a few days following discharge. [facility] reached out to Peña and Renuka. Accordingto both, patient continues to struggle with incoherent conversations and delusional thinking duringthis hospital stay. Renuka denied the plan endorsed by Madison. Renuka reported spending several days with patient following her inpatient psych hospitalization last month. According to Renuka, patient was not eating nor drinking and using marijuana vape continuously. Renuka and Peña reported that Madison has been experiencing hallucinations (seeing/talking to people who are not there) and delusions (reporting the neighbor, a police district switchboard operator came to their home to arrest her although the police officerwas at work at that time) since last month. Peña reports a significant weight loss and non-compliance with medications in the past 6 months. Patient seen by Psychiatrist Dr. Albert on 01/20/21.?? DIAGNOSIS: Major depression, recurrent severe with psychosis; cannot rule out bipolar disorder; cluster B traits ??RECOMMENDATIONS: -continue current level of observation with one-to-one sitter -monitor for response to olanzapine 5 mg b.i.d. -transfer to inpatient behavioral health services when medically stable and when bed is available Current psychotropic medications: Klonopin 1mg bid Zyprexa 5mg bid Rozerem 8mg qhs prn Spoke to patient's nurse, Jenny, to discuss the patient's current status.??Nurse reports patient yelling at one point about not being a psych patient and not wanting to be admitted to a psychiatric hospital, however overall patient has been pleasant and adhering to treatment.?Patient accepts medication without difficulty, appetite is fair, sleep is good.?Patient is cooperative with care.Patient has not exhibited any self-harm behaviors.?? Nurse??denied the patient exhibiting any behaviors that interfere with the staff's ability to provide care. Recommendations/Suggestions were made to nurse to help accommodate the patient due to their historywith For Psychosis: Reorient patient to reality, Instructions/requests by staff should be concise and given one step at a time, Talk clearly and use short sentences in a calm and non-threatening voice, Be empathetic with how the patient feels about their beliefs and experiences, Do not argue, confront or challenge patient about their beliefs and experiences and Accept if they do not want to speakwith you, let them know staff is available if they change their mind Contracts / Limit Setting (for patients with longer stay in hospital >4 days): N/A ADDITIONAL ASSESSMENTS: [place]man Suicide Severity Rating Scale (Short) [place] Suicide Severity Rating Scale 1. Wish to be : No 2. Suicidal Thoughts: No 6. Suicide Behavior Question: No Thank you for the opportunity to participate in??this patient's care.?? QM[facility]??will continue bed search. Cheryl Barba LPC * Angela Abdul MD - 01/23/2021 8:57 AM CDT [facility] - Cardiology [facility] Progress Note Admit Date: 01/13/2021 9:29 PM @HDAYS@ PCP: Lazarus Albert MD Patient seen and examined Chart , telemtry reviewed Symptoms Patient denies chest pain, dyspnea, palpitations, sweating or syncope. Data Vitals: 01/22/21 2007 01/22/21 2334 01/23/21 0245 01/23/21 0802 BP: 120/75 132/77 112/63 115/75 BP Location: Right arm Right arm Right arm Right arm Patient Position: Lying Lying Lying Lying Pulse: 92 104 91 91 Resp: 18 18 18 18 Temp: 36.7 ??C (98.1 ??F) 36.7 ??C (98.1 ??F) 36.5 ??C (97.7 ??F) 36.6 ??C (97.9 ??F) TempSrc: Oral Oral Oral Oral SpO2: 100% 100% 100% 100% Weight: Height: Intake/Output Summary (Last 24 hours) at 01/23/2021 0857 Last data filed at 01/22/2021 1800 Gross per 24 hour Intake 600 ml Output 2 ml Net 598 ml Lab Results Component Value Date WBC 7.0 01/21/2021 HGB 12.7 01/21/2021 HCT 41.4 01/21/2021 Lab Results Component Value Date SODIUM 139 01/21/2021 POTASSIUM 3.7 01/21/2021 CHLORIDE 104 01/21/2021 CO2 22 01/21/2021 CREATININE 0.56 (L) 01/21/2021 GLUCOSE 118 01/21/2021 CALCIUM 9.4 01/21/2021 No results found for: PTT No results found for: PT No results found for: INR No results found for: BNP No components found for: TROPONIN No results found for: CHOL, TRIG, HDL, LDLCALC Lab Results Component Value Date ALBUMIN 3.2 (L) 01/21/2021 No components found for: MAGMGDL No results found for: TSH No results found for: T3FREE No results found for: [id number] Pain Assessment: 0-10 Pain Score: 5 - Moderate pain Patient's Stated Pain Goal: No pain Pain Type: Chronic pain Chronic Pain Precipitating Factors: At Rest Clinical Progression: Not changed Meds MEDICATIONS FOR CURRENT ENCOUNTER: SCHEDULED MEDICATIONS: Scheduled Medications Medication Dose Route Frequency ??? aspirin enteric coated tablet 81 mg 81 mg oral Daily ??? atorvastatin (LIPITOR) tablet 20 mg 20 mg oral Daily ??? clonazePAM (KlonoPIN) tablet 1 mg 1 mg oral BID ??? cyclobenzaprine (FLEXERIL) tablet 10 mg 10 mg oral BID ??? dicyclomine (BENTYL) tablet 10 mg 10 mg oral TID ??? folic acid (FOLVITE) tablet 1 mg 1 mg oral Daily with dinner ??? metoprolol tartrate (LOPRESSOR) immediate release tablet 25 mg 25 mg oral BID ??? OLANZapine (ZyPREXA ZYDIS) disintegrating tablet 5 mg 5 mg oral BID ??? polyethylene glycol (MIRALAX) packet 17 g 17 g oral Daily with lunch ??? senna-docusate (PERICOLACE) 8.6-50 mg per tablet 2 tablet 2 tablet oral BID ??? sodium chloride 0.9% flush 0.5-20 mL 0.5-20 mL intra-catheter Q8H ELIU ?? CONTINUOUS MEDICATIONS: Continuous Medications Medication Dose Last Rate ? PRN MEDICATIONS: PRN Medications Medication Dose Route Frequency Last Admin ? ? al & mag hydroxide uzqhlovnfni-bzyfieumqmebrvo-mftndigiz-nystatin (MAGIC MOUTHWASH) suspension 1-1-1-1 15 mL swish & spit Q4H PRN 15 mL at 01/22/21 2347 ??? ondansetron ODT (ZOFRAN-ODT) disintegrating tablet 4 mg 4 mg oral Q6H PRN 4 mg at 01/22/21 1105 ??? oxyCODONE (ROXICODONE) tablet 5 mg 5 mg oral QID PRN 5 mg at 01/23/21 0254 ??? ramelteon (ROZEREM) tablet 8 mg 8 mg oral Nightly PRN 8 mg at 01/22/21 2351 ??? sodium chloride 0.9% flush 0.5-20 mL 0.5-20 mL intra-catheter PRN ??? sodium chloride 0.9% flush 10 mL 10 mL intravenous PRN 10 mL at 01/17/21 1242 ??? sodium chloride 0.9% flush 10 mL 10 mL intravenous PRN ??? traMADoL (ULTRAM) tablet 50 mg 50 mg oral BID PRN 50 mg at 01/19/21 0349 Allergies Allergen Reactions ??? Codeine Hives ??? Duloxetine Mental status changes Reaction: CONFUSION, ??? Gabapentin Mental status changes ??? Paxil [Paroxetine] Mental status changes ??? Wellbutrin [Bupropion] Mental status changes ??? Zoloft [Sertraline] Mental status changes Review of Systems: All systems were reviewed. Pertinent positives are mentioned above. Exam General appearance: alert, cooperative, no distress Neck: No JVD. No carotid Bruit Chest: Decreased air entry bilaterally,No added sounds Cardiovascular: regular rate, rhythm, normal S1 and S2, without rub, gallops or murmur Abdomen: soft without mass, non-tender, with normal bowel sounds Extremities: no clubbing, cyanosis or edema. Peripheral pulse palpable Assessment /Plan Chest pain -non cardiac -Mildly elevated trops without acute rise, no c/w ACS -Echo noted above, no rwma, EF 70% -Stress test negative for ischemia -No further CV work up indicated at this time ?? HLD -At goal -on statin ?? Hx DVT ?? Tylenol overdose Anxiety and Depression Suicidal Ideation -Psych following. Involuntary admission to psych facility pending ??Clinically has improved ?? PLAN: OK for discharge to psych facility from CV standpoint Angela Abdul MD * Jorje Osorio MD - 01/22/2021 3:23 PM CDT Nephrology Progress Note [facility] SUBJECTIVE Renal fn is improved. Agitation is better. All labs reviewed. Overall clinically unchanged. OBJECTIVE Vitals: Vitals: 01/14/21 0820 01/22/21 0427 01/22/21 0800 01/22/21 1200 BP: 109/67 122/66 105/72 BP Location: Right arm Right arm Right arm Patient Position: Lying Lying Lying Pulse: 90 85 84 Resp: 18 18 18 Temp: 36.7 ??C (98.1 ??F) 36.6 ??C (97.9 ??F) 36.8 ??C (98.2 ??F) TempSrc: Oral Oral Oral SpO2: 99% 100% 99% Weight: 45 kg (99 lb 3.2 oz) Height: Intake/Output Summary (Last 24 hours) at 01/22/2021 1523 Last data filed at 01/22/2021 1315 Gross per 24 hour Intake 420 ml Output 3 ml Net 417 ml REVIEW OF SYSTEMS Review of Systems Constitutional: Negative. HENT: Negative. Eyes: Negative. Respiratory: Negative. Cardiovascular: Negative. Gastrointestinal: Negative. Genitourinary: Negative. Musculoskeletal: Negative. Skin: Negative. Allergic/Immunologic: Negative. Hematological: Negative. All other systems reviewed and are negative. PHYSICAL EXAM Physical Exam Constitutional: Appears well-developed. HENT: wnl Head: Normocephalic. Eyes: Pupils are equal, round, and reactive to light. Neck: Normal range of motion. Neck supple. Cardiovascular: Normal rate. Pulmonary/Chest: Effort normal and breath sounds normal. Abdominal: Soft. Musculoskeletal: Normal range of motion. Neurological: Alert, oriented. Skin: Skin is warm. Nursing note and vitals reviewed. MEDICATIONS Current Facility-Administered Medications: ? ? al & mag hydroxide fxuhhfmjejk-bnrfxrvtlcqcwfx-klgoftklc-nystatin (MAGIC MOUTHWASH) suspension 1-1-1-1, 15 mL, swish & spit, Q4H PRN, Harper Guillaume MD, 15 mL at 01/18/21 0136 ??? aspirin enteric coated tablet 81 mg, 81 mg, oral, Daily, Francisco Padilla MD, 81 mg at 01/22/21 0819 ??? atorvastatin (LIPITOR) tablet 20 mg, 20 mg, oral, Daily, Angela Abdul MD, 20 mg at 01/22/21 0819 ??? clonazePAM (KlonoPIN) tablet 1 mg, 1 mg, oral, BID, Francisco Padilla MD, 1 mg at 01/22/21 08 ??? cyclobenzaprine (FLEXERIL) tablet 10 mg, 10 mg, oral, BID, Francisco Padilla MD, 10 mg at 01/22/21 0819 ??? dicyclomine (BENTYL) tablet 10 mg, 10 mg, oral, TID, Francisco Padilla MD, 10 mg at 01/22/21 0819 ??? folic acid (FOLVITE) tablet 1 mg, 1 mg, oral, Daily with dinner, Francisco Padilla MD, 1mg at 01/21/21 1658 ??? metoprolol tartrate (LOPRESSOR) immediate release tablet 25 mg, 25 mg, oral, BID, Francisco Padilla MD, 25 mg at 01/22/21 0818 ??? OLANZapine (ZyPREXA ZYDIS) disintegrating tablet 5 mg, 5 mg, oral, BID, Kevin Albert MD, 5 mg at 01/22/21 0819 ??? ondansetron ODT (ZOFRAN-ODT) disintegrating tablet 4 mg, 4 mg, oral, Q6H PRN, 4 mg at 01/22/21 1105 OR [DISCONTINUED] ondansetron (ZOFRAN) injection 4 mg, 4 mg, intravenous, Q6H PRN, Oracio Jeffries NP, 4 mg at 01/18/21 2218 ??? oxyCODONE (ROXICODONE) tablet 5 mg, 5 mg, oral, QID PRN, Francisco Padilla MD, 5 mg at 01/22/21 1342 ??? polyethylene glycol (MIRALAX) packet 17 g, 17 g, oral, Daily with lunch, Francisco Padilla MD, 17 g at 01/21/21 1127 ??? ramelteon (ROZEREM) tablet 8 mg, 8 mg, oral, Nightly PRN, Bethany Connor NP, 8 mg at 315 ??? senna-docusate (PERICOLACE) 8.6-50 mg per tablet 2 tablet, 2 tablet, oral, BID, Francisco Padilla MD, 2 tablet at 01/22/21 0819 ??? Saline lock IV, , , Once AND sodium chloride 0.9% flush 0.5-20 mL, 0.5- 20 mL, intra-catheter, Q8H ELIU, 10 mL at 01/20/21 1600 AND sodium chloride 0.9% flush 0.5-20 mL, 0.5-20 mL, intra-catheter, PRN, Oracio Jeffries NP ??? sodium chloride 0.9% flush 10 mL, 10 mL, intravenous, PRN, Angela Abdul MD, 10 mL at 01/17/21 1242 ??? sodium chloride 0.9% flush 10 mL, 10 mL, intravenous, PRN, Angela Abdul MD ??? traMADoL (ULTRAM) tablet 50 mg, 50 mg, oral, BID PRN, Harper Guillaume MD, 50 mg at 01/19/21 0349 Lab/Radiology/Diagnostic Review: No results found for this or any previous visit (from the past 24 hour(s)). ECG 12 lead Result Date: 01/15/2021 Narrative: Vent Rate: 119 bpm RR Interval: 503 msec RI Interval: 136 msec QRS Duration: 79 msec QT Interval: 427 msec QTC Interval: 498 msec P-R-T [place]: 67 - 83 - [address] DEVIATION AND MODERATE T-WAVE ABNORMALITY, CONSIDER INFERIOR ISCHEMIA ABNORMAL ECG Electronically SignedBy: Dr. Con Hughes [facility] ECG 12 lead Result Date: 01/15/2021 Narrative: Vent Rate: 62 bpm RR Interval: 957 msec RI Interval: 142 msec QRS Duration: 88 msec QT Interval: 456 msec QTC Interval: 462 msec P-R-T [place]: 52 - 60 - 72 degrees SINUS RHYTHM NORMAL ECG Electronically Signed By: Dr. Con Hughes [facility] ECG 12 lead Result Date: 01/14/2021 Narrative: Vent Rate: 92 bpm RR Interval: 648 msec RI Interval: 133 msec QRS Duration: 86 msec QT Interval: 392 msec QTC Interval: 442 msec P-R-T [place]: 75 - 83 - 76 [address] DEPRESSION BORDERLINE ECG Electronically Signed By: Dr. Con Hughes [facility] CT Abdomen Pelvis WO Contrast Result Date: 01/14/2021 Narrative: EXAMINATION: CT ABDOMEN PELVIS WO CONTRAST TECHNIQUE: Computed tomographic examination of the abdomen and pelvis is performed without intravenous contrast HISTORY: Right-sided abdominal pain evaluate kidney stone COMPARISON:02/06/2020 FINDINGS: Visualized lung bases are normal. The liver, spleen, pancreas, adrenal glands are normal. There is nonobstructing bilateral renal calculi. However, there are no ureteral calculi there is no hydronephrosis. No bladder calculi seen. There is no obstruction, pneumoperitoneum or free fluid. Diffuse diverticulosis present there is no acute diverticulitis. There is been a prior partial colonic resection. Moderate amount of stool is noted within the rectosigmoid colon compatible with constipation or obstipation. Diffuse atherosclerotic disease of the aorta seen. Osseous windows demonstrate multilevel degenerative disc disease. Multiple injection granulomas seen in the subcutaneous tissues. Impression: 1. Findings compatible with constipation or obstipation. 2 nonobstructing renal calculi. Electronically signed by: Mehdi Meyers M.D., MPH XR Chest Pa Lateral 2 Vw Result Date: 01/14/2021 Narrative: EXAMINATION: XR CHEST PA LATERAL 2 VIEWS HISTORY: The patient is a 55-year-old female who presents with chest pain. TECHNIQUE: PA and lateral view of the chest. FINDINGS: There is hyperinflation of the lungs. No focal infiltrate. Cardiovascular structures unremarkable. Impression: Hyperinflation of the lungs. Electronically signed by: Rakesh Palacio M.D. Stress Test for Myocardial Perfusion Result Date: 01/17/2021 Narrative: [place] [address] MPI Imaging Report Patient Name: MADISON WEINBERG J : 1965 Study Date: 01/17/2021 12:20:00 PM Gender: F Tech: [facility] Location: [id number] Ref.Provider:ANA ELLIS Height(Cm): BSA: Weight(Kg): Order Provider: ANGELA ABDUL Procedures: Pharmacologic SPECT Report.: Myocardial perfusion imaging with Tetrofosmin SPECT at rest and post regadenoson (Lexiscan) infusion. Indications: Chest Pain. Findings: Procedure Data: Resting HR 72 bpm. Predicted Maximal HR 165 bpm. Target HR: 140 bpm. Percent Max Predicted HR Achieved: 55.15 %. Baseline BP: 145/82mmHg. Peak BP: 144/74 mmHg. Exercise Time: 0.49. Reason for Termination: Lexiscan protocol complete. Resting ECG: Normal resting ECG. Post Pharm ECG: No diagnostic ST changes. Arrhythmia: Rare PVCs. Cardiac Symptoms With Stress: Symptoms with stress were Dyspnea. Symptoms were resolved with rest. Co nclusions: 1. Test negative for pharmacologic induced inducible ishemia by electrocardiographic criteria at maximal work load. 2. SPECT to follow and should be correlated with this study. Electronically Signed By: Tony Mosley MD 2021-01-17 15:20:16 CDT Stress Test for Myocardial Perfusion Result Date: 01/17/2021 Narrative: [place] [address] MPI Imaging Report ADDENDUM Patient Name: MADISON WEINBERG : 1965 Study Date: 01/16/2021 12:41:39 PM Gender: F Tech: [facility] Location: [id number] Ref.Provider: ANA ELLIS Height(Cm): BSA: Weight(Kg): Heart Rate: 140 Order Provider: ANGELA ABDUL Procedures: Pharmacologic SPECT Report.: Myocardial perfusion imaging with Tetrofosmin SPECT at rest andpost regadenoson (Lexiscan) infusion. Indications: Chest Pain. Findings: Procedure Data: Resting HR72 bpm. Peak HR: 124 bpm. Predicted Maximal HR 165 bpm. Target HR: 140 bpm. Percent Max Predicted HR Achieved: 75.15 %. Baseline BP: 156/87 mmHg. Peak BP: 148/63 mmHg. Exercise Time: 00:38. Reason for Termination: Lexiscan protocol complete. Resting ECG: Normal sinus rhythm. Post Pharm ECG: No diagnostic ST changes. Arrhythmia: No arrhythmias seen. Cardiac Symptoms With Stress: Symptoms with stress were Dyspnea. Symptoms were resolved with rest. BP Response: Blood pressure response is appropriate. Conclusions: 1. Test negative for pharmacologic induced inducible ishemia by electrocardiographic criteria at maximal work load. 2. SPECT to follow and should be correlated with this study. Electronically Signed By: Harper Feliciano DO, FACC, FASE, FASNC 2021-01-17 10:00:36 CDT CC: CC: Transthoracic Echo Complete W Doppler/CF Result Date: 01/17/2021 Narrative: [place] [address] Echocardiogram Report Patient Name: MADISON WEINBERG : 1965 Study Date: 01/17/2021 9:19:18 AM Gender: F Tech: Location: [id number] Ref.Provider: ANA ELLIS Height(Cm): 165 BSA: 1.44 Weight(Kg): 45 Heart Rate: 69 BP: 132/86 Quality: Good OrderProvider: ANGELA ABDUL Procedures: Echocardiographic Report: Transthoracic echocardiogram with complete 2D, M-Mode, and color Doppler examination. Indications: Chest Pain. Measurements: 2D/M Mode Doppler Measurement Value Normal Range Measurement Value Normal Range EF Teich 2D 69.8 [ 55.0 - 70.0 ] percent KANDIS Vmax 1.56 [ 2.00 - 4.00 ] cm2 EF Mod 4C 67.6 [ 55.0 - 70.0 ] percent AV Mean PG 5 [ 2 - 4 ] mmHg LVIDd 2D 4.51 [ 3.90 - 5.30 ] cm AV Peak Chuck 1.58 [ 1.00 - 1.70 ] m/s LVIDs 2D 2.74 [ 2.30 - 3.90 ] cm AV VTI 30.51 cm LVPWd 2D 0.80 [ 0.60 - 1.00 ] cm LVOT Diam 1.77 [ 1.70 - 2.10 ] cm IVSd 2D 0.51 [ 0.60 - 0.90 ] cm LVOT Peak Chuck 1.00 [ 0.70 - 1.10 ] m/s LA Dimension MM 2.86 [ 2.70 - 3.80 ] cm LVOT VTI 18.62 [ 20.00 - 30.00 ] cm AoR Diam MM 2.60 [ 2.60 - 3.70 ] cm MV E Peak Chuck 0.83 [ 0.60 - 1.30 ] m/s LA Volume Index 14.06 [ 16.00 - 28.00 ] cc/m2 MV A Peak Chuck 0.91 [ 1.00 - 1.20 ] m/s ACS MM 1.43 cm MV PHT 59 [ 20 - 100 ] msec MVA 3.70 MV Decel Time 199 [ 104 - 258 ] msec PV Peak Chuck 0.84 [ 0.40 - 0.80 ] m/s TR Peak Chuck 2.22 [ 1.00 - 2.80 ] m/s TR Peak PG 20 mmHg RVSP 25.00[ 10.00 - 36.00 ] mmHg E' 0.08 E/E' 10.92 Findings: Atrial Septum: Normal atrial septum. Left Ventricle: Normal left ventricular size. Normal left ventricular systolic function with no focal wall motion abnormalities. Left ventricular wall thickness upper limits of normal. Impaired diastolic relaxation Grade I. Ejection fraction is measured at 70 %. Left Atrium: The left atrium is normal in size. Right Ventricle: Normal right ventricular size. Normal right ventricular systolic function. Right Atrium: The right atrium is normal in size. Aortic Valve: Normal structure of the aortic valve. Mitral Valve: Normal structure of the mitral valve. Trivial regurgitation of the mitral valve. Pulmonic Valve: Normal structure of the pulmonic valve. Tricuspid Valve: Normal structure of the tricuspid valve. Normal right ventricular systolic pressure. Estimated peak RVSP is 25 mmHg. Trivial regurgitation in the tricuspid valve. Pericardium: Normal pericardium with no significant pericardial effusion.Aorta: Normal aortic root. IVC: Normal size and normal respiratory collapse consistent with normal right atrial pressure (<5 mmHg). Pulmonary Artery: Normal pulmonary artery size. Conclusions: Normal left ventricular size. Normal left ventricular systolic function with no focal wall motion abnormalities. Left ventricular wall thickness upper limits of normal. Impaired diastolic relaxation Grade I. Ejection fraction is measured at 70 %. Normal structure of the mitral valve. Trivial regurgitation of the mitral valve. Normal structure of the tricuspid valve. Normal right ventricular systolic pressure. Estimated peak RVSP is 25 mmHg. Trivial regurgitation in the tricuspid valve. Electronically Signed By: Tony Mosley MD 2021-01-17 11:49:07 CDT NM MPI SPECT (Rest and/or Stress) Multiple Studies Result Date: 01/17/2021 Narrative: EXAMINATION: MYOCARDIAL IMAGING (PHARMACOLOGIC-STRESS AND REST/SPECT/CT) DATE OF STUDY: 01/16/2021 RADIOPHARMACEUTICAL: 10.1 mCi, 27.4 mCi Tc-99m tetrofosmin i.v. HISTORY: 55 year old femalewith a history of hepatitis, renal disease, DVT, hyperlipemia presenting with chest pain. Evaluate for ischemia and/or myocardial infarction. The patient's body mass index (BMI) was 16. The electrocardiogram during infusion of the pharmacologic agent was negative for ischemia. FINDINGS: Both stress and rest imaging were performed, in the following order: rest/stress Stress imaging: An intravenous infusion of Regadenoson (0.4 mg of A2A adenosine receptor agonist Regadenoson (Lexiscan), infused intravenously over approximately 10 seconds, followed approximately after another 20 seconds by tracer infusion) was performed without low level exercise on the date indicated above. A complete description of the stress test and electrocardiographic results supervised by staff of the [facility] is available in the [facility] electronic medical record. Standard myocardial perfusion images were obtained after tracer injection at the peak effect of the drug. Low-dose CT images spanning the heart were obtained for attenuation correction. Rest Imaging: Standard myocardial perfusion images were obtained after resting tracer injection. Low-dose CT images spanning the heart were obtained for attenuation correction. COMPARISON: None available. The stress images were repeated as on initial images there was motion artefact in the anteroseptal wall. The repeat stress images on the following day were reviewed for image quality, and reveal no significant artifacts. There is normal distributionof activity in the left and right ventricular myocardium on both stress and rest images. Gated post-stress images demonstrate normal left ventricular volume, normal left ventricular wall motion and normal ejection fraction of >70% % (normal >45%). Additional gated rest images demonstrate norm al left ventricular wall motion and a resting left ventricular ejection fraction of 64%. Incidentalfindings on the low-dose CT images: mild aortic atherosclerosis, small area of fatty infiltration in the liver. Impression: 1. Normal pharmacologic-stress and rest myocardial perfusion. 2. Normal left ventricular size and systolic function. Dictated by: Reji Romero M.D. The radiology attending physician has personally reviewed this study, and had reviewed and/or edited this written report and agrees withit. Electronically signed by: Vilma Lamb M.D. US Retroperitoneal Complete Result Date: 01/16/2021 Narrative: EXAMINATION: US RETROPERITONEAL COMPLETE HISTORY: The patient is a 55-year-old female who presents with acute renal failure. TECHNIQUE: Transverse and sagittal images were obtained along with color Doppler imaging. FINDINGS: The right kidney measures 9.2 x 4.2 x 3.8 cm and the left kidney measures 8.9 x 4.7 x 5.4 cm in size. No hydronephrosis or perinephric fluid collection. There is atiny calculus in the left kidney which is not causing obstruction. Renal cortical thickness is normal. There is slight increase in renal cortical echogenicity. The urinary bladder was not visualized and cannot be commented on. Impression: Slight increase in renal cortical echogenicity bilaterally, consistent with some degreeof chronic renal parenchymal disease. Electronically signed by: Rakesh Palacio M.D. ASSESSMENT/PLAN History of DVT (deep vein thrombosis) Elevated troponin Hepatitis Tylenol overdose JHOANA (acute kidney injury) (CMS/HCC) NSAID overdose Bandemia High anion gap metabolic acidosis Hypokalemia Right lower quadrant abdominal pain Suicidal ideation Frailty Severe protein-calorie malnutrition (CMS/HCC) ?? 1. JHOANA from volume contraction and NSAID use. 2. Possible underling CKD with hematuria and proteinuria. 3. Hx of nephrolothiasis per patient. 4. NAGMA. 5. Leukocytosis. 6. Abd pain. 7. Reported suicidal ideation. 8. Severe hypokalemia. 9. Anemia. ?? PLAN ?? 1. JHOANA resolved, push PO fluids. 2. Replace K. 3. Basic JHOANA manning, r/o vasculitis, doubt! 4. Renal US, noted, b/l echogenic kidneys. 5. IV ABX. 6. Daily labs. 7. Appreciate residential sales consultant input. 8. DC planning. ?? I can be reached at [phone] with any concerns. Thank you Ru Jin MD for the consult. Jorje Osorio MD [employer] [phone] * Ru Jin MD - 01/22/2021 2:14 PM CDT General Medicine Progress Note Interval Events: Laboratory evaluation is stable. No need for further daily labs. Awaiting placement to inpatient psych. Subjective: Chief complaint: Agitation. No new complaints. Objective: Vitals: 24hr Min/Max: Temp Min: 36.4 ??C (97.5 ??F) Max: 36.7 ??C (98.1 ??F) Pulse Min: 82 Max: 93 BP Min: 106/55 Max: 134/89 Resp Min: 18 Max: 18 SpO2 Min: 97 % Max: 100 % Most Recent: Vitals: 01/21/21200401/21/21202001/21/21235701/22/21 0427 BP: 134/89 106/55 109/67 BP Location: Right arm Left arm Right arm Patient Position: Lying Lying Lying Pulse: 93 93 82 90 Resp: 18 18 18 Temp: 36.6 ??C (97.9 ??F) 36.7 ??C (98 ??F) 36.7 ??C (98.1 ??F) TempSrc: Oral Oral Oral SpO2: 100% 100% 99% Weight: Height: Intake/Output Summary (Last 24 hours) at 01/22/2021 0824 Last data filed at 01/22/2021 0624 Gross per 24 hour Intake 660 ml Output 2 ml Net 658 ml Physical Exam: Physical Exam GEN: Alert. NAD HENT: Normocephalic. Atraumatic. CVS: RRR CHEST: Clear bilaterally ABD: soft. ND EXT: no edema Lab/Radiology/Diagnostic Review: Reviewed. No results found for this or any previous visit (from the past 24 hour(s)). Assessment and Plan: Principal Problem: Chest pressure Active Problems: History of DVT (deep vein thrombosis) Elevated troponin Hepatitis Tylenol overdose JHOANA (acute kidney injury) (CMS/HCC) NSAID overdose Bandemia High anion gap metabolic acidosis Hypokalemia Right lower quadrant abdominal pain Suicidal ideation Frailty Severe protein-calorie malnutrition (CMS/HCC) 1. Psychiatric illness. I have updated the affidavit. Awaiting placement to psych. 2. Chest pain. Associated with elevated troponin. No intervention planned at this time. 3. Hyperlipidemia. Continue Lipitor 20 mg daily. 4. Essential hypertension. Continue Lopressor 25 mg b.i.d.. Disposition: Awaiting for inpatient to psych Medical decision making complexity: Low Ru Jin MD Hospitalist [phone] :24 AM * Tj Miller DO - 01/22/2021 10:02 AM CDT Daily Progress SUBJECTIVE: C/o anxiety, with intermittent chest pressure during anxiety. No SOB. OBJECTIVE: Vitals: 01/21/21202001/21/21 2358 01/22/21 0427 01/22/21 0800 BP: 106/55 109/67 122/66 BP Location: Left arm Right arm Right arm Patient Position: Lying Lying Lying Pulse: 93 82 90 85 Resp: 18 18 18 Temp: 36.7 ??C (98 ??F) 36.7 ??C (98.1 ??F) 36.6 ??C (97.9 ??F) TempSrc: Oral Oral Oral SpO2: 100% 99% 100% Weight: Height: Intake/Output Summary (Last 24 hours) at 01/22/2021 1003 Last data filed at 01/22/2021 0624 Gross per 24 hour Intake 420 ml Output 2 ml Net 418 ml Scheduled Medications Medication Dose Route Frequency ??? aspirin enteric coated tablet 81 mg 81 mg oral Daily ??? atorvastatin (LIPITOR) tablet 20 mg 20 mg oral Daily ??? clonazePAM (KlonoPIN) tablet 1 mg 1 mg oral BID ??? cyclobenzaprine (FLEXERIL) tablet 10 mg 10 mg oral BID ??? dicyclomine (BENTYL) tablet 10 mg 10 mg oral TID ??? folic acid (FOLVITE) tablet 1 mg 1 mg oral Daily with dinner ??? metoprolol tartrate (LOPRESSOR) immediate release tablet 25 mg 25 mg oral BID ??? OLANZapine (ZyPREXA ZYDIS) disintegrating tablet 5 mg 5 mg oral BID ??? polyethylene glycol (MIRALAX) packet 17 g 17 g oral Daily with lunch ??? senna-docusate (PERICOLACE) 8.6-50 mg per tablet 2 tablet 2 tablet oral BID ??? sodium chloride 0.9% flush 0.5-20 mL 0.5-20 mL intra-catheter Q8H ELIU LABS: Recent Labs Lab Units 01/21/21 0533 WBC K/cumm 7.0 HEMOGLOBIN g/dL 12.7 HEMATOCRIT % 41.4 PLATELETS K/cumm 340 Recent Labs Lab Units 01/21/21 0533 01/17/21 0639 01/16/21 0559 SODIUM mmol/L 139 < > 137 POTASSIUM PLASMA mmol/L 3.7 < > 3.2* CHLORIDE mmol/L 104 < > 106 CO2 mmol/L 22 < > 20* ANIONGAP mmol/L 13 < > 11 GLUCOSE mg/dL 118 < > 92 BUN SERUM mg/dL 4* < > 9 CREATININE mg/dL 0.56* < > 0.49* CALCIUM mg/dL 9.4 < > 8.3* ALBUMIN g/dL 3.2* < > 2.8* ALK PHOS Units/L -- -- 105 ALT Units/L -- -- 27 AST Units/L -- -- 22 BILIRUBIN TOTAL mg/dL -- -- 0.2 < > = values in this interval not displayed. No results found for: BNP No results found for: TROPONINI Exam General: in no apparent distress Neuro: Alert and oriented x 3, moves all extremities well HEENT: normocephalic, atraumatic Lungs: symmetric, unlabored, clear to auscultation bilaterally Heart: S1,S2, regular rate & rhythm, no murmurs, rubs, or gallops Abdomen: soft, non-tender, non-distended, bowel sounds present Extremities: no LE edema, palpable peripheral pulses BL ECHO Conclusions: Normal left ventricular size. Normal left ventricular systolic function with no focal wall motion abnormalities. Left ventricular wall thickness upper limits of normal. Impaired diastolic relaxation Grade I. Ejection fraction is measured at 70 %. Normal structure of the mitral valve. Trivial regurgitation of the mitral valve. Normal structure of the tricuspid valve. Normal right ventricular systolic pressure. Estimated peak RVSP is 25 mmHg. Trivial regurgitation in the tricuspid valve. ASSESSMENT/PLAN: Chest pain -non cardiac -Mildly elevated trops without acute rise, no c/w ACS -Echo noted above, no rwma, EF 70% -Stress test negative for ischemia -No further CV work up indicated at this time HLD -At goal -on statin Hx DVT Tylenol overdose Anxiety and Depression Suicidal Ideation -Psych following. Involuntary admission to psych facility pending PLAN: OK for discharge to psych facility from CV standpoint. 01/22/2021 10:03 AM * Jorje Osorio MD - 01/21/2021 4:32 PM CDT Nephrology Progress Note [facility] SUBJECTIVE Renal fn is improved. Agitation is better. All labs reviewed. OBJECTIVE Vitals: Vitals: 01/20/219 01/21/21 0018 01/21/21 0448 01/21/21 0821 BP: 108/74 123/61 133/69 BP Location: Right arm Left arm Right arm Patient Position: Lying Lying Sitting Pulse: 107 85 87 100 Resp: 18 18 18 Temp: 36.6 ??C (97.8 ??F) 36.9 ??C (98.4 ??F) 36.7 ??C (98.1 ??F) TempSrc: Oral Oral Oral SpO2: 100% 98% 99% Weight: Height: Intake/Output Summary (Last 24 hours) at 01/21/2021 1632 Last data filed at 01/21/2021 1100 Gross per 24 hour Intake 360 ml Output 2 ml Net 358 ml REVIEW OF SYSTEMS Review of Systems Constitutional: Negative. HENT: Negative. Eyes: Negative. Respiratory: Negative. Cardiovascular: Negative. Gastrointestinal: Negative. Genitourinary: Negative. Musculoskeletal: Negative. Skin: Negative. Allergic/Immunologic: Negative. Hematological: Negative. All other systems reviewed and are negative. PHYSICAL EXAM Physical Exam Constitutional: Appears well-developed. HENT: wnl Head: Normocephalic. Eyes: Pupils are equal, round, and reactive to light. Neck: Normal range of motion. Neck supple. Cardiovascular: Normal rate. Pulmonary/Chest: Effort normal and breath sounds normal. Abdominal: Soft. Musculoskeletal: Normal range of motion. Neurological: Alert, oriented. Skin: Skin is warm. Nursing note and vitals reviewed. MEDICATIONS Current Facility-Administered Medications: ? ? al & mag hydroxide qocqfyhcqwe-rlogkiktoqpvruf-tofeveryd-nystatin (MAGIC MOUTHWASH) suspension 1-1-1-1, 15 mL, swish & spit, Q4H PRN, Harper Guillaume MD, 15 mL at 01/18/21 0136 ??? aspirin enteric coated tablet 81 mg, 81 mg, oral, Daily, Francisco Padilla MD, 81 mg at 01/21/21 08 ??? atorvastatin (LIPITOR) tablet 20 mg, 20 mg, oral, Daily, Angela Abdul MD, 20 mg at 01/21/21 0804 ??? clonazePAM (KlonoPIN) tablet 1 mg, 1 mg, oral, BID, Francisco Padilla MD, 1 mg at 01/21/21 08 ??? cyclobenzaprine (FLEXERIL) tablet 10 mg, 10 mg, oral, BID, Francisco Padilla MD, 10 mg at 01/21/21 0803 ??? dicyclomine (BENTYL) tablet 10 mg, 10 mg, oral, TID, Francisco Padilla MD, 10 mg at 01/21/21 0803 ??? folic acid (FOLVITE) tablet 1 mg, 1 mg, oral, Daily with dinner, Francisco Padilla MD, 1mg at 01/20/21 1655 ??? metoprolol tartrate (LOPRESSOR) immediate release tablet 25 mg, 25 mg, oral, BID, Francisco Padilla MD, 25 mg at 01/21/21 0803 ??? OLANZapine (ZyPREXA ZYDIS) disintegrating tablet 5 mg, 5 mg, oral, BID, Kevin Albert MD, 5 mg at 01/21/21 0804 ??? ondansetron ODT (ZOFRAN-ODT) disintegrating tablet 4 mg, 4 mg, oral, Q6H PRN, 4 mg at 01/21/21 1130 OR [DISCONTINUED] ondansetron (ZOFRAN) injection 4 mg, 4 mg, intravenous, Q6H PRN, Oracio Jeffries NP, 4 mg at 01/18/21 2218 ??? oxyCODONE (ROXICODONE) tablet 5 mg, 5 mg, oral, QID PRN, Francisco Padilla MD, 5 mg at 01/20/212051 ??? polyethylene glycol (MIRALAX) packet 17 g, 17 g, oral, Daily with lunch, Francisoc Padilla MD, 17 g at 01/21/21 1127 ??? ramelteon (ROZEREM) tablet 8 mg, 8 mg, oral, Nightly PRN, Bethany Connor NP, 8 mg at 258 ??? senna-docusate (PERICOLACE) 8.6-50 mg per tablet 2 tablet, 2 tablet, oral, BID, Francisco Padilla MD, 2 tablet at 01/21/21 0804 ??? Saline lock IV, , , Once AND sodium chloride 0.9% flush 0.5-20 mL, 0.5- 20 mL, intra-catheter, Q8H ELIU, 10 mL at 01/20/21 1600 AND sodium chloride 0.9% flush 0.5-20 mL, 0.5-20 mL, intra-catheter, PRN, Oracio Jeffries NP ??? sodium chloride 0.9% flush 10 mL, 10 mL, intravenous, PRN, Angela Abdul MD, 10 mL at 01/17/21 1242 ??? sodium chloride 0.9% flush 10 mL, 10 mL, intravenous, PRN, Angela Abdul MD ??? traMADoL (ULTRAM) tablet 50 mg, 50 mg, oral, BID PRN, Markell, Harper Boles MD, 50 mg at 01/19/21 0349 Lab/Radiology/Diagnostic Review: Recent Results (from the past 24 hour(s)) CBC with auto differential Collection Time: 01/21/21 5:33 AM Result Value Ref Range WBC 7.0 3.8 - 9.9 K/cumm Hgb 12.7 11.9 - 15.5 g/dL Hct 41.4 35.6 - 45.5 % Plt 340 150 - 400 K/cumm MPV 9.2 9.1 - 12.3 fL RBC 4.25 3.90 - 5.20 M/cumm MCV 97.4 (H) 81.3 - 96.4 fL MCH 29.9 27.1 - 33.3 pg MCHC 30.7 (L) 32.3 - 35.7 g/dL RDW CV 12.4 11.1 - 14.9 % RDW SD 44.6 35.7 - 48.1 fL NRBC abs 0.00 0.00 - 0.01 K/cumm Magnesium Collection Time: 01/21/21 5:33 AM Result Value Ref Range Magnesium 1.7 1.4 - 2.5 mg/dL Renal function panel Collection Time: 01/21/21 5:33 AM Result Value Ref Range Sodium 139 135 - 145 mmol/L Potassium, pl 3.7 3.3 - 4.9 mmol/L Chloride 104 97 - 110 mmol/L CO2 22 22 - 32 mmol/L Anion gap 13 2 - 15 mmol/L BUN 4 (L) 8 - 25 mg/dL Creatinine 0.56 (L) 0.60 - 1.10 mg/dL Glucose 118 70 - 199 mg/dL Calcium 9.4 8.5 - 10.3 mg/dL Phosphorus, pl 3.5 2.3 - 4.5 mg/dL Albumin 3.2 (L) 3.5 - 5.0 g/dL Differential, auto Collection Time: 01/21/21 5:33 AM Result Value Ref Range Neutrophil abs 4.1 1.7 - 6.5 K/cumm Imm gran abs 0.0 0.0 - 0.1 K/cumm Lymphocyte abs 1.7 0.8 - 3.3 K/cumm Monocyte abs 0.7 0.2 - 0.8 K/cumm Eosinophil abs 0.5 0.0 - 0.5 K/cumm Basophil abs 0.1 0.0 - 0.1 K/cumm Neutrophil pct 58.6 % Imm gran pct 0.4 % Lymphocyte pct 24.1 % Monocyte pct 9.6 % Eosinophil pct 6.6 % Basophil pct 0.7 % eGFR Collection Time: 01/21/21 5:33 AM Result Value Ref Range GFR 105 mL/min/1.73 m2 Recent Labs Lab Units 01/14/21 1649 CLARITY U Cloudy* COLOR U Yellow KETONES UR Negative NITRITE UR Negative SPEC GRAV U 1.021 UROBILINOGEN UR mg/dL <2.0 WBC UR QT /HPF >50* ECG 12 lead Result Date: 01/15/2021 Narrative: Vent Rate: 119 bpm RR Interval: 503 msec RI Interval: 136 msec QRS Duration: 79 msec QT Interval: 427 msec QTC Interval: 498 msec P-R-T [place]: 67 - 83 - [address] DEVIATION AND MODERATE T-WAVE ABNORMALITY, CONSIDER INFERIOR ISCHEMIA ABNORMAL ECG Electronically SignedBy: Dr. Con Hughes [facility] ECG 12 lead Result Date: 01/15/2021 Narrative: Vent Rate: 62 bpm RR Interval: 957 msec RI Interval: 142 msec QRS Duration: 88 msec QT Interval: 456 msec QTC Interval: 462 msec P-R-T [place]: 52 - 60 - 72 degrees SINUS RHYTHM NORMAL ECG Electronically Signed By: Dr. Con Hughes [facility] ECG 12 lead Result Date: 01/14/2021 Narrative: Vent Rate: 92 bpm RR Interval: 648 msec RI Interval: 133 msec QRS Duration: 86 msec QT Interval: 392 msec QTC Interval: 442 msec P-R-T [place]: 75 - 83 - 76 [address] DEPRESSION BORDERLINE ECG Electronically Signed By: Dr. Con Hughes [facility] CT Abdomen Pelvis WO Contrast Result Date: 01/14/2021 Narrative: EXAMINATION: CT ABDOMEN PELVIS WO CONTRAST TECHNIQUE: Computed tomographic examination of the abdomen and pelvis is performed without intravenous contrast HISTORY: Right-sided abdominal pain evaluate kidney stone COMPARISON:02/06/2020 FINDINGS: Visualized lung bases are normal. The liver, spleen, pancreas, adrenal glands are normal. There is nonobstructing bilateral renal calculi. However, there are no ureteral calculi there is no hydronephrosis. No bladder calculi seen. There is no obstruction, pneumoperitoneum or free fluid. Diffuse diverticulosis present there is no acute diverticulitis. There is been a prior partial colonic resection. Moderate amount of stool is noted within the rectosigmoid colon compatible with constipation or obstipation. Diffuse atherosclerotic disease of the aorta seen. Osseous windows demonstrate multilevel degenerative disc disease. Multiple injection granulomas seen in the subcutaneous tissues. Impression: 1. Findings compatible with constipation or obstipation. 2 nonobstructing renal calculi. Electronically signed by: Mehdi Meyers M.D., MPH XR Chest Pa Lateral 2 Vw Result Date: 01/14/2021 Narrative: EXAMINATION: XR CHEST PA LATERAL 2 VIEWS HISTORY: The patient is a 55-year-old female who presents with chest pain. TECHNIQUE: PA and lateral view of the chest. FINDINGS: There is hyperinflation of the lungs. No focal infiltrate. Cardiovascular structures unremarkable. Impression: Hyperinflation of the lungs. Electronically signed by: Rakesh Palacio M.D. Stress Test for Myocardial Perfusion Result Date: 01/17/2021 Narrative: [place] [address] MPI Imaging Report Patient Name: MADISON WEINBERG J : 1965 Study Date: 01/17/2021 12:20:00 PM Gender: F Tech: [facility] Location: [id number] Ref.Provider:ANA ELLIS Height(Cm): BSA: Weight(Kg): Order Provider: ANGELA ABDUL Procedures: Pharmacologic SPECT Report.: Myocardial perfusion imaging with Tetrofosmin SPECT at rest and post regadenoson (Lexiscan) infusion. Indications: Chest Pain. Findings: Procedure Data: Resting HR 72 bpm. Predicted Maximal HR 165 bpm. Target HR: 140 bpm. Percent Max Predicted HR Achieved: 55.15 %. Baseline BP: 145/82mmHg. Peak BP: 144/74 mmHg. Exercise Time: 0.49. Reason for Termination: Lexiscan protocol complete. Resting ECG: Normal resting ECG. Post Pharm ECG: No diagnostic ST changes. Arrhythmia: Rare PVCs. Cardiac Symptoms With Stress: Symptoms with stress were Dyspnea. Symptoms were resolved with rest. Co nclusions: 1. Test negative for pharmacologic induced inducible ishemia by electrocardiographic criteria at maximal work load. 2. SPECT to follow and should be correlated with this study. Electronically Signed By: Tony Mosley MD 2021-01-17 15:20:16 CDT Stress Test for Myocardial Perfusion Result Date: 01/17/2021 Narrative: [place] [address] MPI Imaging Report ADDENDUM Patient Name: MADISON WEINBERG : 1965 Study Date: 01/16/2021 12:41:39 PM Gender: F Tech: [email or web address] Location: [id number] Ref.Provider: ANA ELLIS Height(Cm): BSA: Weight(Kg): Heart Rate: 140 Order Provider: ANGELA ABDUL Procedures: Pharmacologic SPECT Report.: Myocardial perfusion imaging with Tetrofosmin SPECT at rest andpost regadenoson (Lexiscan) infusion. Indications: Chest Pain. Findings: Procedure Data: Resting HR72 bpm. Peak HR: 124 bpm. Predicted Maximal HR 165 bpm. Target HR: 140 bpm. Percent Max Predicted HR Achieved: 75.15 %. Baseline BP: 156/87 mmHg. Peak BP: 148/63 mmHg. Exercise Time: 00:38. Reason for Termination: Lexiscan protocol complete. Resting ECG: Normal sinus rhythm. Post Pharm ECG: No diagnostic ST changes. Arrhythmia: No arrhythmias seen. Cardiac Symptoms With Stress: Symptoms with stress were Dyspnea. Symptoms were resolved with rest. BP Response: Blood pressure response is appropriate. Conclusions: 1. Test negative for pharmacologic induced inducible ishemia by electrocardiographic criteria at maximal work load. 2. SPECT to follow and should be correlated with this study. Electronically Signed By: Harper Feliciano DO, LEEANN SALCEDO FASNC 2021-01-17 10:00:36 CDT CC: CC: Transthoracic Echo Complete W Doppler/CF Result Date: 01/17/2021 Narrative: [place] [address] Echocardiogram Report Patient Name: MADISON WEINBERG : 1965 Study Date: 01/17/2021 9:19:18 AM Gender: F Tech: NIGEL Location: [id number] Ref.Provider: ANA ELLIS Height(Cm): 165 BSA: 1.44 Weight(Kg): 45 Heart Rate: 69 BP: 132/86 Quality: Good OrderProvider: ANGELA ABDUL Procedures: Echocardiographic Report: Transthoracic echocardiogram with complete 2D, M-Mode, and color Doppler examination. Indications: Chest Pain. Measurements: 2D/M Mode Doppler Measurement Value Normal Range Measurement Value Normal Range EF Teich 2D 69.8 [ 55.0 - 70.0 ] percent KANDIS Vmax 1.56 [ 2.00 - 4.00 ] cm2 EF Mod 4C 67.6 [ 55.0 - 70.0 ] percent AV Mean PG 5 [ 2 -4 ] mmHg LVIDd 2D 4.51 [ 3.90 - 5.30 ] cm AV Peak Chuck 1.58 [ 1.00 - 1.70 ] m/s LVIDs 2D 2.74 [ 2.30- 3.90 ] cm AV VTI 30.51 cm LVPWd 2D 0.80 [ 0.60 - 1.00 ] cm LVOT Diam 1.77 [ 1.70 - 2.10 ] cm IVSd2D 0.51 [ 0.60 - 0.90 ] cm LVOT Peak Chuck 1.00 [ 0.70 - 1.10 ] m/s LA Dimension MM 2.86 [ 2.70 - 3.80 ] cm LVOT VTI 18.62 [ 20.00 - 30.00 ] cm AoR Diam MM 2.60 [ 2.60 - 3.70 ] cm MV E Peak Chuck 0.83 [ 0.60 - 1.30 ] m/s LA Volume Index 14.06 [ 16.00 - 28.00 ] cc/m2 MV A Peak Chuck 0.91 [ 1.00 - 1.20 ] m/s ACS MM 1.43 cm MV PHT 59 [ 20 - 100 ] msec MVA 3.70 MV Decel Time 199 [ 104 - 258 ] msec PV PeakVel 0.84 [ 0.40 - 0.80 ] m/s TR Peak Chuck 2.22 [ 1.00 - 2.80 ] m/s TR Peak PG 20 mmHg RVSP 25.00 [ 10.00 - 36.00 ] mmHg E' 0.08 E/E' 10.92 Findings: Atrial Septum: Normal atrial septum. Left Ventricle: Normal left ventricular size. Normal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 Discussed case with RN. Spoke to patient via tele medicine. Informed patient of need to transfer her to a psychiatric unit for further evaluation and treatment. Patient declined to go voluntarily. QMHP attempted to explain voluntary VS involuntary status to patient. QMHP attempted to explain bed search process to patient. Patient interrupted frequently. QMHP attempted to answer all questions. Patient stated her strong desire to leave the hospital. Patient reported she would not stay. Patient stated twice she would make security shoot her. RN notified. Rylee Miranda, OSCAR, ART THERAPIST Qualified Mental Health Professional Behavioral Health Intervention Team [phone] * Ru Jin MD - 01/18/2021 1:12 PM CDT General Medicine Progress Note Interval Events: Sitter remains in place. I am resuming care from previous physician. Extensive chart review has been done. I spoke to the patient's . I have also attested and notarized iform. Psychiatry is working on placement to in-patient psych Subjective: Chief complaint: Agitation. Patient seen in her room. No medical complaints noted. Objective: Vitals: 24hr Min/Max: Temp Min: 36.9 ??C (98.5 ??F) Max: 37 ??C (98.6 ??F) Pulse Min: 80 Max: 99 BP Min: 127/67 Max: 142/94 Resp Min: 18 Max: 18 SpO2 Min: 98 % Max: 100 % Most Recent: Vitals: 01/18/21199901/18/21 2332 01/19/21 0024 01/19/21 0737 BP: 127/67 139/85 BP Location: Left arm Patient Position: Lying Lying Pulse: 86 80 84 99 Resp: 18 18 Temp: 36.9 ??C (98.5 ??F) 36.9 ??C (98.5 ??F) TempSrc: Oral Oral SpO2: 98% 99% Weight: Height: Intake/Output Summary (Last 24 hours) at 01/19/2021 0812 Last data filed at 01/18/2021 1735 Gross per 24 hour Intake -- Output 250 ml Net -250 ml Physical Exam: Physical Exam GEN: Alert. NAD HENT: Normocephalic. Atraumatic. CVS: RRR CHEST: Clear bilaterally ABD: soft. ND EXT: no edema Lab/Radiology/Diagnostic Review: Reviewed. Recent Results (from the past 24 hour(s)) MRSA Only (Staphylococcs aureus) PCR Nasal Collection Time: 01/18/21 3:58 PM Specimen: Nasal Result Value Ref Range PCR Scrn, Methicillin resistant Staphylococcus aureus (MRSA) Detected (A) Not Detected Influenza A/B, RSV, and COVID-19 PCR Nasopharyngeal Collection Time: 01/19/21 1:48 AM Specimen: Nasopharyngeal Result Value Ref Range COVID-19 RNA Negative Negative Influenza A RNA Negative Negative Influenza B RNA Negative Negative RSV RNA Negative Negative First COVID-19 test? No Employeed in healthcare? No status? No Group care resident? No Hospitalized? Yes Is patient in ICU? No Symptomatic as defined by CDC? No CBC with auto differential Collection Time: 01/19/21 6:21 AM Result Value Ref Range WBC 12.3 (H) 3.8 - 9.9 K/cumm Hgb 12.6 11.9 - 15.5 g/dL Hct 38.6 35.6 - 45.5 % Plt 390 150 - 400 K/cumm MPV 9.3 9.1 - 12.3 fL RBC 4.16 3.90 - 5.20 M/cumm MCV 92.8 81.3 - 96.4 fL MCH 30.3 27.1 - 33.3 pg MCHC 32.6 32.3 - 35.7 g/dL RDW CV 12.4 11.1 - 14.9 % RDW SD 42.5 35.7 - 48.1 fL NRBC abs 0.00 0.00 - 0.01 K/cumm Magnesium Collection Time: 01/19/21 6:21 AM Result Value Ref Range Magnesium 1.5 1.4 - 2.5 mg/dL Renal function panel Collection Time: 01/19/21 6:21 AM Result Value Ref Range Sodium 138 135 - 145 mmol/L Potassium, pl 3.2 (L) 3.3 - 4.9 mmol/L Chloride 101 97 - 110 mmol/L CO2 24 22 - 32 mmol/L Anion gap 13 2 - 15 mmol/L BUN 3 (L) 8 - 25 mg/dL Creatinine 0.57 (L) 0.60 - 1.10 mg/dL Glucose 107 70 - 199 mg/dL Calcium 9.0 8.5 - 10.3 mg/dL Phosphorus, pl 2.8 2.3 - 4.5 mg/dL Albumin 3.2 (L) 3.5 - 5.0 g/dL Differential, auto Collection Time: 01/19/21 6:21 AM Result Value Ref Range Neutrophil abs 9.9 (H) 1.7 - 6.5 K/cumm Imm gran abs 0.1 0.0 - 0.1 K/cumm Lymphocyte abs 1.0 0.8 - 3.3 K/cumm Monocyte abs 1.0 (H) 0.2 - 0.8 K/cumm Eosinophil abs 0.4 0.0 - 0.5 K/cumm Basophil abs 0.0 0.0 - 0.1 K/cumm Neutrophil pct 80.2 % Imm gran pct 0.5 % Lymphocyte pct 7.8 % Monocyte pct 8.0 % Eosinophil pct 3.2 % Basophil pct 0.3 % eGFR Collection Time: 01/19/21 6:21 AM Result Value Ref Range GFR 104 mL/min/1.73 m2 Assessment and Plan: Principal Problem: Chest pressure Active Problems: History of DVT (deep vein thrombosis) Elevated troponin Hepatitis Tylenol overdose JHOANA (acute kidney injury) (CMS/HCC) NSAID overdose Bandemia High anion gap metabolic acidosis Hypokalemia Right lower quadrant abdominal pain Suicidal ideation Frailty Severe protein-calorie malnutrition (CMS/HCC) 1. Chest pain. Associated with elevated troponin. No intervention planned at this time. 2. Psychiatric illness/Suicidal ideation. I have signed affidavit regarding the patient based on myconversation and examination and evaluation of the patient, my conversation with , and review of chart. 3. Hyperlipidemia. Continue Lipitor 20 mg daily. 4. Essential hypertension. Continue Lopressor 25 mg b.i.d.. Disposition: Awaiting for transfer to inpatient psych. I have signed affidavit regarding the patient. Medical decision making complexity: Intermediate Ru Jin MD Hospitalist [phone] 18:12 AM * Marie Alvarenga OT - 01/18/2021 9:37 AM CDT Occupational Therapy 01/18/21 0852 General Session Type Other (comment) (Patient declined therapy ) Patient declined therapy this date. Will continue to follow and re-attempt Occupational Therapy evaluation when patient is agreeable. Marie Alvarenga OT 01/18/2021 9:37 AM * Angela Abdul MD - 01/18/2021 9:05 AM CDT [facility] - Cardiology [facility] Progress Note Admit Date: 01/13/2021 9:29 PM @HDAYS@ PCP: Lazarus Albert MD Patient seen and examined Chart , telemtry reviewed Symptoms Patient denies chest pain, dyspnea, palpitations, sweating or syncope. Data Vitals: 01/18/21 0000 01/18/21 0250 01/18/21 0400 01/18/21 0805 BP: 133/91 136/93 BP Location: Right arm Patient Position: Lying Lying Pulse: 68 66 65 88 Resp: 16 18 Temp: 36.2 ??C (97.2 ??F) 36.9 ??C (98.4 ??F) TempSrc: Oral Oral SpO2: 100% 100% Weight: Height: Intake/Output Summary (Last 24 hours) at 01/18/2021 09 Last data filed at 01/18/2021 0335 Gross per 24 hour Intake 130 ml Output 600 ml Net -470 ml Lab Results Component Value Date WBC 9.2 01/18/2021 WBC 10.5 (H) 01/16/2021 WBC 9.8 01/15/2021 HGB 12.0 01/18/2021 HGB 10.5 (L) 01/16/2021 HGB 10.0 (L) 01/15/2021 HCT 36.5 01/18/2021 HCT 32.6 (L) 01/16/2021 HCT 30.6 (L) 01/15/2021 Lab Results Component Value Date SODIUM 138 01/18/2021 SODIUM 137 01/17/2021 SODIUM 137 01/16/2021 POTASSIUM 3.4 01/18/2021 POTASSIUM 4.0 01/17/2021 POTASSIUM 3.2 (L) 01/16/2021 CHLORIDE 103 01/18/2021 CHLORIDE 104 01/17/2021 CHLORIDE 106 01/16/2021 CO2 22 01/18/2021 CO2 22 01/17/2021 CO2 20 (L) 01/16/2021 CREATININE 0.49 (L) 01/18/2021 CREATININE 0.47 (L) 01/17/2021 CREATININE 0.49 (L) 01/16/2021 GLUCOSE 91 01/18/2021 GLUCOSE 99 01/17/2021 GLUCOSE 92 01/16/2021 CALCIUM 8.8 01/18/2021 CALCIUM 8.7 01/17/2021 CALCIUM 8.3 (L) 01/16/2021 No results found for: PTT No results found for: PT No results found for: INR No results found for: BNP No components found for: TROPONIN Lab Results Component Value Date CHOL 94 01/15/2021 TRIG 80 01/15/2021 HDL 30 (L) 01/15/2021 LDLCALC 48 01/15/2021 Lab Results Component Value Date ALBUMIN 3.1 (L) 01/18/2021 ALBUMIN 3.2 (L) 01/17/2021 ALBUMIN 2.8 (L) 01/16/2021 ALKPHOS 105 01/16/2021 ALKPHOS 130 01/15/2021 ALT 27 01/16/2021 ALT 32 01/15/2021 AST 22 01/16/2021 AST 31 01/15/2021 No components found for: MAGMGDL No results found for: TSH No results found for: T3FREE No results found for: [id number] Pain Assessment: Sleeping Pain Score: 0 - No pain Patient's Stated Pain Goal: No pain Pain Type: Chronic pain Pain Orientation: Right Pain Radiating Towards: back Pain Descriptors: Aching Response to Interventions: Full pain relief Meds MEDICATIONS FOR CURRENT ENCOUNTER: SCHEDULED MEDICATIONS: Scheduled Medications Medication Dose Route Frequency ??? aspirin enteric coated tablet 81 mg 81 mg oral Daily ??? atorvastatin (LIPITOR) tablet 20 mg 20 mg oral Daily ??? clonazePAM (KlonoPIN) tablet 1 mg 1 mg oral BID ??? cyclobenzaprine (FLEXERIL) tablet 10 mg 10 mg oral BID ??? dicyclomine (BENTYL) tablet 10 mg 10 mg oral TID ??? folic acid (FOLVITE) tablet 1 mg 1 mg oral Daily with dinner ??? metoprolol tartrate (LOPRESSOR) immediate release tablet 25 mg 25 mg oral BID ??? OLANZapine (ZyPREXA ZYDIS) disintegrating tablet 5 mg 5 mg oral BID ??? polyethylene glycol (MIRALAX) packet 17 g 17 g oral Daily with lunch ??? senna-docusate (PERICOLACE) 8.6-50 mg per tablet 2 tablet 2 tablet oral BID ??? sodium chloride 0.9% flush 0.5-20 mL 0.5-20 mL intra-catheter Q8H ELIU ?? CONTINUOUS MEDICATIONS: Continuous Medications Medication Dose Last Rate ??? sodium chloride 0.9% infusion 75 mL/hr 75 mL/hr (01/16/21 0433) ? PRN MEDICATIONS: PRN Medications Medication Dose Route Frequency Last Admin ? ? al & mag hydroxide jkejsdzcodx-ofczdtghzvgulhf-zvjwmmvag-nystatin (MAGIC MOUTHWASH) suspension 1-1-1-1 15 mL swish & spit Q4H PRN 15 mL at 01/18/21 0136 ??? ondansetron ODT (ZOFRAN-ODT) disintegrating tablet 4 mg 4 mg oral Q6H PRN Or ??? ondansetron (ZOFRAN) injection 4 mg 4 mg intravenous Q6H PRN ??? oxyCODONE (ROXICODONE) tablet 5 mg 5 mg oral QID PRN 5 mg at 01/17/21 2311 ??? ramelteon (ROZEREM) tablet 8 mg 8 mg oral Nightly PRN 8 mg at 01/17/212007 ??? sodium chloride 0.9% flush 0.5-20 mL 0.5-20 mL intra-catheter PRN ??? sodium chloride 0.9% flush 10 mL 10 mL intravenous PRN 10 mL at 01/17/21 1242 ??? sodium chloride 0.9% flush 10 mL 10 mL intravenous PRN ??? traMADoL (ULTRAM) tablet 50 mg 50 mg oral BID PRN 50 mg at 01/17/212007 Allergies Allergen Reactions ??? Codeine Hives ??? Duloxetine Mental status changes Reaction: CONFUSION, ??? Gabapentin Mental status changes ??? Paxil [Paroxetine] Mental status changes ??? Wellbutrin [Bupropion] Mental status changes ??? Zoloft [Sertraline] Mental status changes Review of Systems: All systems were reviewed. Pertinent positives are mentioned above. Exam General appearance: alert, cooperative, no distress Neck: No JVD. No carotid Bruit Chest: Adequate air entry bilaterally,No added sounds Cardiovascular: regular rate, rhythm, normal S1 and S2, without rub, gallops or murmur Abdomen: soft without mass, non-tender, with normal bowel sounds Extremities: no clubbing, cyanosis or edema. Peripheral pulse palpable Assessment /Plan 1. ??Chest pain, abnormal troponins. Asymptomatic at present. Stress test and Echo normal. No additional cardiac testing indicated ?? 2. Suicidal ideation. -psych consulted. affidavit was signed by on admit that she threatened to kill herself on mother's day. ?? 3. Renal insufficiency.Resolved. Cr 0.47 today ?? 4. Tylenol overdose -levels resolved. ?? 5. Anxiety and depression. ?? 6. Abnormal LFTs, which have now resolved. ?? 7. Hyperlipidemia. At goal on statins. LDL 48 ?? 8. History of DVT. ?? 9. Hypokalemia -resolved after supplementation ?? Angela Abdul MD * Dylan Ingram, PT - 01/18/2021 8:30 AM CDT Physical Therapy INITIAL EVALUATION PATIENT'S NAME:Madison Weinberg :1965 AGE:55 y.o. TIME IN:0831 TIME OUT:0853 CURRENT DIAGNOSIS AND HOSPITAL COURSE: presents to ED due to chest pain for 3 weeks, elevated troponins, acute renal failure (resolved), suicidal ideations, abnormal LFT. Dr. Albert feels patient needs involuntary psychiatric admission at discharge from . in agreement. Notable HX: Hepatitis, renal insufficiency, DVT, vitamin B12 deficiency, HLD, GERD, back pain, anxiety, depression Patient Active Problem List Diagnosis ??? Endometriosis ??? Multiple-type hyperlipidemia ??? Anxiety state ??? Acute cerebrovascular insufficiency ??? Abdominal pain ??? 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 History of DVT (deep vein thrombosis) ??? Elevated troponin ??? Chest pressure ??? Hepatitis ??? Tylenol overdose ??? JHOANA (acute kidney injury) (CMS/HCC) ??? NSAID overdose ??? Bandemia ??? High anion gap metabolic acidosis ??? Hypokalemia ??? Right lower quadrant abdominal pain ??? Suicidal ideation ??? Frailty ??? Severe protein-calorie malnutrition (CMS/HCC) Past Medical History: Diagnosis Date ??? Anemia ??? Anxiety disorder ??? Colon obstruction (CMS/HCC) ??? DVT (deep venous thrombosis) (CMS/HCC) 11/2018 ??? Endometriosis Endometriosis-21 times ??? Hyperlipidemia [...] ??? LAPAROSCOPIC ENDOMETRIOSIS FULGURATION Endometriosis-21 times: lap/laser SUBJECTIVE: Patient refused this date. When asked when a good time would be to come see her, patient states, I don't know. I'm so sick of talking to people and not getting anywhere. I want to go home. OBJECTIVE PRECAUTIONS: elopement risk, high fall risk, suicidal ideations. Refer to multi-disciplinary care plan section for PT specific goals. If this is the last note, please consider this the discharge summary. * Amy Mayorga MSW - 01/17/2021 7:15 PM CDT [facility] spoke with Dr. Albert. He has seen the patient and is in agreement with pursuing an admission once she has been deemed medically cleared. The completed an affidavit in the ED, but it is unclear at this time if the affidavit is on the floor with the patient or a new one will need to be co mpleted by him and MD to assist in involuntary admission if the patient is not willing to be admitted voluntarily. [facility] is aware that Dr. Albert made medication recommendations, and will follow-up with RN tomorrow to check patient status and medical clearance status. * Kevin Albert MD - 01/17/2021 7:06 PM CDT Patient seen and evaluated -Dictation to follow -Continue 1:1 observation -Transfer to inpatient when medically cleared * Amy Mayorga MSW - 01/17/2021 6:37 PM CDT QMHP made aware by [facility] May that per Dr. Albert, this patient will need an involuntary psychiatric admission. HP on phone when Dr. Albert called, and will follow-up with him once available to determine if he plans to make any medication recommendations for her increased agitation or complete an evaluation with her. QMHP awaiting confirmation of medical clearance from floor. * Annalise Zee RN - 01/17/2021 4:27 PM CDT CM Initial Assessment Interview Note Information Obtained From: Patient (01/17/211625) Admission Source: Home Impression: alert, oriented Plan Includes: psych to see patient Primary Source of Transportation: Does the patient need discharge transport arranged?: No (01/14/21849) Health Insurance Coverage: BCBS Prescription Coverage: Yes Pharmacy: [facility] Primary Care Provider: Lazarus Albert MD Prior to Admission: Primary Caregiver: Self Support System: Spouse/Significant Other Support system contact info (name, phone, availablity): Peña Weinberg, , Durable Medical Equipment: None Living Arrangements: Spouse/significant other Type of Residence: Private residence Steps in home? : Yes, Outside of home, Yes, Inside home Number of steps inside:: 12 steps Number of steps outside:: 14 steps (01/14/21849) Potential discharge needs include: will follow Dialysis: no Behavioral Health Services: Behavioral Health Services: No (01/17/211625) Patient expects to be Discharged to: Psychiatric facility, (01/14/21849) Additional Information: Spoke to , Peña, he said patient is not ready to discharge. Informedof patient's hallucinations, suicide thoughts, attempts. Psychiatry to see patient. Patient's Identified Problem/Goal Problem: Ensure acute medical [...] Collaboration with patient, MD, direct care nurse, Lumber Straightener, Nurse Coordinator and other members of the health care team to assure needed interventions completed. 2. Return patient to optimal level of self-care post discharge. 3. English As A Second Language Instructor will follow for Discharge Planning - interventions as needed 4. Anticipated level of care at discharge 5. Planned Discharge Disposition Based on a comprehensive family assessment, assistance with instrumental activities of daily livingafter discharge will be provided by patient/family Through the course of our work I determined that the patient/husbanc possesses the skill and ability to provide and monitor the care of the patient when he or she returns home. Patient/ has the capacity to provide/monitor/arrange for the care of the patient. Finally, we determined that patient/ has the knowledge of available resources and that combining them with their existing resources will suffice to sustain and care for the patient when he or she returns home. The treatment team is aware of this information. All are in agreement with the aftercare plan. Annalise Zee RN * Amy Mayorga MSW - 01/17/2021 4:22 PM CDT [facility] spoke with the patient's (Peña Weinberg) via telephone at this time to gather furtherinformation ([phone]) from 1622 PM-1700 PM. Per Peña, My oldest boy, her stepson, he had a drug problem 10 years ago and has been clean since then. He's an alcoholic and went to rehab in October of this year and done well. He got out a few weeks early cause he wanted to go back to work. He wentback to [place], his old stomping grounds, and went back to work. He got wound up with the old girl that he was messing with before, and he fell off the wagon for 12 days and lost his job. He got intoa new rehab program in [place]. They called me and I told them his insurance would run out at the end of November due to losing his job. They said they had grants and would figure it out. He was there acouple of weeks and called me the weekend before Mother's Day. He called and said that he was beingkicked out due to no insurance. I said he couldn't live with me cause of the lease. He was thinkingof calling his brother that lives in [place] for a fresh start. Long story short my oldest boy wentto live with his younger boy and his and my grandson. My youngest son said if he starts drinking again I'm asking him to leave, which I supported. Later that week he was living with them and my went ballistic and madder than hell. She said he needed ot be on the streets to know what rock bottom really can be. Our argument just kept escalating. On Saturday she was so worked up and called up our boy and his and she was on speakerphone. She unloaded on everyone and called her stepson a drunk drug addict that was worthless and started in on our son and saying that they were ignorant for taking him in. They hung up on her. She gets up and went into the kitchen. My back was to the kitchen. The next thing I knew I heard and empty pill bottle drop to the floor. It was her Klonopin. She said she took them and there had been 40-45 pills in the bottle cause we had just gotten it filled. I called 911 and she said don't do it cause I'll tell them I flushed them. By the time the EMT and PD got there, they said there was no way she had taken that many. She has a styrofoam cup on the the counter and we didn't look in there. She had taken some but not enough to warrant doing anything drastic. At the hospital she signed out AMA, and I shook my head. I told the doctor she had suicidaltendencies, which she denied. They let her sign out and Saturday morning. She said I can't even commit suicide right and I shouldn't have woken up. When I came back in from letting the dog out, I found the styrofoam cup empty. I think she was trying to succeed in what she wanted to do. She started in again about my oldest boy and it kept on escalating. She went in the back bedroom and grabbed thecar keys and out the door she went. 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 I keep one on top of the fridge. When she took off uptown I unloaded that pistol. When she got back she started in again and I tried to walk away from her and go outside. She kept following me. Shewas all worked up and headed toward the refrigerator. She grabbed the gun off the fridge, and I made a grab at it. It was aimed at my chest and she pulled the trigger. I told her I'm done and I'm notplaying this shit. I called the staff software engineer to help me get my things. I took the guns that were family hand me downs and my clothes, and I left. She was blowing my phone up the rest of day and screamed and carried on. I got a room on Saturday and shut my phone off. I took the guns to [place] Saturday night.She said that she had shot the gun safe to get in it. On Saturday night she kept blowing my phone up so I could get some sleep before my doctor's appointment on Saturday. On Saturday morning the [email or web address] police was looking for me. She called my son and said she threw all my things in the front yard. He didn't know what hotel I was at and gave my description to the staff software engineer. She threatened to kill herself in front of the staff software engineer and was sent to [facility] for an evaluation. I was told by the police that all guns needed to be taken out of the house. The safe was open and I saw that she had shot the safe.There was brass all over the floor. She had stood there and shot at the gun safe point blank. We were all shocked she didn't catch a ricochet. I showed him the text from her where she said she did that and let them listen to voice mails. She said she was going to do it right now and they sent her in for a 72 hour hold. That was Saturday morning. Saturday she called me and said she was at [place] andwas wound up and heated. She said they broke her glasses and lost her phone at the house. I asked if I could get her glasses from the behavioral health unit, and she was getting released. We got a new phone and got her glasses fixed and took her home. It started going back to the same thing and I said I'm leaving. I was gone for about a week. I'd go check in with her but I would leave because it got escalated. I have voice mails and text messages, and she started making no sense. A week ago I came home and she said she wanted to work it out. We had ups and downs, nothing horrible. Saturday night she came to bed and wasn't making sense. She jibbered and jabbered all night, sometimes awake and sometimes asleep. Saturday she toned down but had some issues nothing horrible. That night she startedagain and it went all night. Saturday I laid down to take a nap on the couch after being up all night with her. I heard her talking real loud and she was sitting in the recliner like she had the phoneto her ear but there was no phone there. She was having a conversation with someone even though shewasn't holding a phone. I called the doctor and told them what was going on with her. She said I was lying to them and was screaming at me to get out. Over the next 2-3 days she said all these peoplewere there to eat and blocking our driveway. She talked about someone we hadn't seen in 2 years andwas calling me Enid. There's another voicemail where people were in the house with the door locked up and vans were outside with sharma haired women and she was hiding in the jeep. She said here in the ER that there were two big white vans from [facility] and they wouldn't leave until she paid them a $250 deposit. She called me crying and she said the neighbor was there to throw her in longterm. Our neighbors are police officers. I called the neighbors on the way to the house and she said she was at work and not at our house. I pulled up to the house and she was outside sneaking around the house because they neighbors were there to arrest me. I had the neighbors tell me she needed a mental evaluation. The [place] police and EMS came to the house, and she straightened up to answer the questions and she answered them right and they couldn't do anything. The hallucinations are getting worse. She said that people put painkillers in her food and were at the house. I asked to talk to the people and she said they left. I verified with them that they had not been to the house. She's delusional, and hallucinating that people are there. I stopped her today to see her cause she asked me to come see her. She is under the impression that she can just walk out of here and go home, and she is madder than hell. I convinced her to come here because she had been complaining about her kidney and bowels. I did the affidavit in the ER. One minute she hates my guts and the next she can't live without me. I told her she needed to calm down or they would make me leave. We went back to the choosing your son over me. I told her it's about her seeing people that aren't there and those types of things. She said they are all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 01/16/2021 8:35 AM CDT Physical Therapy Patient unavailable. Leaving for stress test, then ultrasound. * Marie Alvarenga OT - 01/16/2021 8:24 AM CDT Occupational Therapy 01/16/21 0824 General Session Type Other (comment) (Patient unavailable) Transport present at therapist's arrival. Patient leaving for stress test/ultrasound. Will continueto follow and re-attempt Occupational Therapy evaluation when patient is available and able to participate. Marie Alvarenga OT 01/16/2021 8:25 AM * Ana Ellis MD - 01/16/2021 7:26 AM CDT HOSPITALIST PROGRESS NOTE PCP: Lazarus Albert [phone] Admit Date: 01/13/2021 9:29 PM LOS: 2 CHIEF COMPLAINT/ HPI 55 y.o. female with history of anxiety, DVT, endometriosis. RLQ abdominal pain for weeks that wraps around to the back She has nausea and vomiting of foodstuffemesis. No diarrhea. In fact she has not had a bowel movement in weeks until a small brown one yesterday. She notes chest pressure that began today and yesterday that has been recurrent, intermittent and lasts seconds to minutes. It does not radiate. It is accompanied by SOB, nausea, diaphoresis, and palpitations. She also notes CARRANZA. No recent cardiac work-up. Her signed an affidavit that the patient threatened to kill herself on Mother's day and that she has had visual hallucinations and delusions The ED [employer] felt the patient's thought process was very disorganized. She has significant pressure of speech and is tangential, but she can not hold a semi-decent conversation. She states she told him she was suicidal because she wanted him to understand how upset she was. She claims that some of this may be malic on his part as they are discussing divorce. She denies that she has any desire to harm herself or others. She is A&Ox4 at this time. She states that for the abdominal pain she has donn talking a lot of tylenol. She acknowledges 4-5g day. She states she also uses 8g tid of motrin. It is very difficult to pin down how many she took and when in regard to the tylenol. She denies any bleeding or melena. She states she has had bloody urine. The patient has hypokalemia, JHOANA, high gap acidosis, hepatitis, negative lactate, significant negative troponin trend, bandemia, negative salicylates, positive tylenol level, negative alcohol level. CXR with official read pending but looks okay to my eye. CT pending, but preliminary read to ED of nonobstructing stones and moderate constipation. EKbpm sinus tach with ST abnormalities inferolaterally without prior. The ED has given the patient aspirin, zofran, KCl ,and IVF SUBJECTIVE 01/14/2021: In bed still in the ED getting another set of labs 2nd Tylenol level normal. LFTs normal. Patient telling me that who she is trying to do voice is still home in will still order start from home if she does not go home soon. Also wants a letter to prove to her mother but she wasin the hospital. Patient was stain awake alert follows commands appropriately thought process difficult to assess this point. 01/15/2021 patient is bed but easy to arouse. Sitter is in room. Reports no issues overnight. Patient is complaining of some right lower abdominal pain. 01/16/2021: In bed sitter at bedside, for stress test today, awaiting Psychiatrist eval REVIEW OF SYSTEMS DATA Vitals: 01/16/21 0000 01/16/21 0020 01/16/21 0355 01/16/21 0400 BP: 130/75 162/88 BP Location: Left arm Right arm Patient Position: Lying Sitting Pulse: 67 64 73 67 Resp: 16 18 Temp: 36.7 ??C (98.1 ??F) 36.3 ??C (97.3 ??F) TempSrc: Oral Oral SpO2: 100% 100% Weight: Height: Intake/Output Summary (Last 24 hours) at 01/16/2021 0726 Last data filed at 01/16/2021 0600 Gross per 24 hour Intake 1823.63 ml Output 650 ml Net 1173.63 ml CURRENT LAB RESULTS Recent Results (from the past 12 hour(s)) CBC with auto differential Collection Time: 01/16/21 5:59 AM Result Value Ref Range WBC 10.5 (H) 3.8 - 9.9 K/cumm Hgb 10.5 (L) 11.9 - 15.5 g/dL Hct 32.6 (L) 35.6 - 45.5 % Plt 324 150 - 400 K/cumm MPV 9.9 9.1 - 12.3 fL RBC 3.48 (L) 3.90 - 5.20 M/cumm MCV 93.7 81.3 - 96.4 fL MCH 30.2 27.1 - 33.3 pg MCHC 32.2 (L) 32.3 - 35.7 g/dL RDW CV 12.8 11.1 - 14.9 % RDW SD 43.9 35.7 - 48.1 fL NRBC abs 0.00 0.00 - 0.01 K/cumm Comprehensive metabolic panel Collection Time: 01/16/21 5:59 AM Result Value Ref Range Sodium 137 135 - 145 mmol/L Potassium, pl 3.2 (L) 3.3 - 4.9 mmol/L Chloride 106 97 - 110 mmol/L CO2 20 (L) 22 - 32 mmol/L Anion gap 11 2 - 15 mmol/L BUN 9 8 - 25 mg/dL Creatinine 0.49 (L) 0.60 - 1.10 mg/dL Glucose 92 70 - 199 mg/dL Calcium 8.3 (L) 8.5 - 10.3 mg/dL Bilirubin, total 0.2 0.1 - 1.2 mg/dL Protein, pl 5.6 (L) 6.5 - 8.5 g/dL Albumin 2.8 (L) 3.5 - 5.0 g/dL Alk phos 105 40 - 130 Units/L ALT 27 7 - 45 Units/L AST 22 10 - 45 Units/L Magnesium Collection Time: 01/16/21 5:59 AM Result Value Ref Range Magnesium 1.8 1.4 - 2.5 mg/dL Phosphorus Collection Time: 01/16/21 5:59 AM Result Value Ref Range Phosphorus, pl 1.7 (L) 2.3 - 4.5 mg/dL Differential, auto Collection Time: 01/16/21 5:59 AM Result Value Ref Range Neutrophil abs 8.4 (H) 1.7 - 6.5 K/cumm Imm gran abs 0.1 0.0 - 0.1 K/cumm Lymphocyte abs 1.1 0.8 - 3.3 K/cumm Monocyte abs 0.6 0.2 - 0.8 K/cumm Eosinophil abs 0.3 0.0 - 0.5 K/cumm Basophil abs 0.1 0.0 - 0.1 K/cumm Neutrophil pct 79.9 % Imm gran pct 0.5 % Lymphocyte pct 10.6 % Monocyte pct 5.5 % Eosinophil pct 3.0 % Basophil pct 0.5 % eGFR Collection Time: 01/16/21 5:59 AM Result Value Ref Range GFR 110 mL/min/1.73 m2 LAB TREND CBC: Lab Results Component Value Date WBC 10.5 (H) 01/16/2021 WBC 9.8 01/15/2021 WBC 18.6 (H) 01/14/2021 WBC 22.9 (H) 01/13/2021 HGB 10.5 (L) 01/16/2021 HGB 10.0 (L) 01/15/2021 HGB 11.1 (L) 01/14/2021 HGB 13.2 01/13/2021 HCT 32.6 (L) 01/16/2021 HCT 30.6 (L) 01/15/2021 HCT 33.0 (L) 01/14/2021 HCT 38.5 01/13/2021 BMP: Lab Results Component Value Date SODIUM 137 01/16/2021 SODIUM 137 01/15/2021 SODIUM 138 01/14/2021 SODIUM 134 (L) 01/13/2021 SODIUM 136 01/13/2021 POTASSIUM 3.2 (L) 01/16/2021 POTASSIUM 3.3 01/15/2021 POTASSIUM 3.7 01/14/2021 POTASSIUM 2.5 (Critical) 01/13/2021 POTASSIUM 2.6 (Critical) 01/13/2021 CHLORIDE 106 01/16/2021 CREATININE 0.49 (L) 01/16/2021 CREATININE 0.59 (L) 01/15/2021 CREATININE 1.39 (H) 01/14/2021 CREATININE 1.88 (H) 01/13/2021 CREATININE 1.94 (H) 01/13/2021 CALCIUM 8.3 (L) 01/16/2021 CALCIUM 8.5 01/15/2021 CALCIUM 8.9 01/14/2021 CALCIUM 10.2 01/13/2021 CALCIUM 10.1 01/13/2021 No results found for: BNP Lab Results Component Value Date ALKPHOS 105 01/16/2021 ALKPHOS 130 01/15/2021 ALKPHOS 132 (H) 01/14/2021 Lab Results Component Value Date MAGNESIUM 1.8 01/16/2021 MAGNESIUM 1.9 01/15/2021 MAGNESIUM 2.2 01/14/2021 Lab Results Component Value Date AST 22 01/16/2021 AST 31 01/15/2021 AST 60 (H) 01/14/2021 Lab Results Component Value Date ALT 27 01/16/2021 ALT 32 01/15/2021 ALT 39 01/14/2021 Lab Results Component Value Date PHOS 1.7 (L) 01/16/2021 PHOS 1.5 (L) 01/15/[address] Abdomen Pelvis WO Contrast IMPRESSION: 1. Findings compatible with constipation or obstipation. 2 nonobstructing renal calculi. XR Chest Pa Lateral 2 Vw IMPRESSION: Hyperinflation of the lungs. PROCEDURES MEDICATIONS FOR CURRENT ENCOUNTER Scheduled Meds: aspirin, 81 mg, oral, Daily atorvastatin, 20 mg, oral, Daily clonazePAM, 1 mg, oral, BID cyclobenzaprine, 10 mg, oral, BID dicyclomine, 10 mg, oral, TID enoxaparin, 1 mg/kg, subcutaneous, Daily-2100 folic acid, 1 mg, oral, Daily with dinner metoprolol tartrate, 25 mg, oral, BID polyethylene glycol, 17 g, oral, Daily with lunch potassium chloride ER, 40 mEq, oral, Once senna-docusate, 2 tablet, oral, BID sodium chloride 0.9%, 0.5-20 mL, intra-catheter, Q8H ELIU sodium phosphate - potassium phosphate, 250 mg, oral, BID with meals (bkfst, dinner) Continuous Infusions: sodium chloride 0.9%, 75 mL/hr, Last Rate: 75 mL/hr (01/16/21 0433) PRN Meds:. Diet: Dietary Orders (From admission, onward) Start Ordered 01/14/21 1202 Oral Nutrition Supplements Select Supplement: Ensure Enlive - any flavor 3 times daily Question: Select Supplement: Answer: Ensure Enlive - any flavor 01/14/21 1201 01/14/21 1139 Adult Diet GI Diets; Suicidal; Send on Disposables Diet effective now Question Answer Comment (CH) Diet type GI Diets Safety Precautions: Suicidal Injury Risk: Send on Disposables 01/14/21 1139 EXAM Vitals: 01/16/21 0400 BP: Pulse: 67 Resp: Temp: SpO2: General appearance: appears stated age, cooperative and no distress thin Head: Normocephalic, without obvious abnormality, atraumatic Eyes: conjunctivae/corneas clear. PERRL Lungs: clear to auscultation bilaterally Heart: regular rate and rhythm and S1, S2 normal Abdomen: soft, non-tender; bowel sounds normal; no masses, no organomegaly Extremities: extremities normal, warm and well-perfused Neurologic: Alert and oriented x4, non-focal ASSESSMENT AND PLAN All Diagnosis Present on Admission Unless Otherwise Stated: Abnormal troponin with complaints of chest pressure. Cardiology has been consulted. EKG noted. Continue aspirin Lovenox Lopressor. Going for stress test today. Elevated Tylenol level now resolved. Elevated LFTs could be related to Tylenol overuse resolved. Severe protein calorie malnutrition nutritional consulted, regular diet. Acute kidney injury- nephrology is following. They feel that this is secondary to nausea vomiting NSAID use. Creatinine is improving with IV fluids Hypokalemia treated resolved monitor Disorganized thoughts. something about suicidal ideation very unclear. Psych consult placed. Patient does not seem suicidal to me know alludes to any suicidal ideation upon interview. Sitter at bedside, Psych screening done, awaiting official Psychiatrist eval. Consulting physicians: Treatment Team: Consulting Physician: Ana Ellis MD; Consulting Physician: Kel Abreu MD; Consulting Physician: Sofía Mccabe MD Disposition: Pending Code status: Full Code Voice recognition software M[employer] Direct was used dictate and transcribe this document. Scale And Skip Car Operator variances may occur. Despite proofreading, typographical errors may occur. Ana Ellis MD. HOSPITALIST 01/16/2021 7:26 AM * Harper Guillaume MD - 01/15/2021 11:44 AM CDT HOSPITALIST PROGRESS NOTE PCP: Lazarus Albert [phone] Admit Date: 01/13/2021 9:29 PM LOS: 1 CHIEF COMPLAINT/ HPI 55 y.o. female with history of anxiety, DVT, endometriosis. RLQ abdominal pain for weeks that wraps around to the back She has nausea and vomiting of foodstuffemesis. No diarrhea. In fact she has not had a bowel movement in weeks until a small brown one yesterday. She notes chest pressure that began today and yesterday that has been recurrent, intermittent and lasts seconds to minutes. It does not radiate. It is accompanied by SOB, nausea, diaphoresis, and palpitations. She also notes CARRANZA. No recent cardiac work-up. Her signed an affidavit that the patient threatened to kill herself on Mother's day and that she has had visual hallucinations and delusions The ED [employer] felt the patient's thought process was very disorganized. She has significant pressure of speech and is tangential, but she can not hold a semi-decent conversation. She states she told him she was suicidal because she wanted him to understand how upset she was. She claims that some of this may be malic on his part as they are discussing divorce. She denies that she has any desire to harm herself or others. She is A&Ox4 at this time. She states that for the abdominal pain she has donn talking a lot of tylenol. She acknowledges 4-5g day. She states she also uses 8g tid of motrin. It is very difficult to pin down how many she took and when in regard to the tylenol. She denies any bleeding or melena. She states she has had bloody urine. The patient has hypokalemia, JHOANA, high gap acidosis, hepatitis, negative lactate, significant negative troponin trend, bandemia, negative salicylates, positive tylenol level, negative alcohol level. CXR with official read pending but looks okay to my eye. CT pending, but preliminary read to ED of nonobstructing stones and moderate constipation. EKbpm sinus tach with ST abnormalities inferolaterally without prior. The ED has given the patient aspirin, zofran, KCl ,and IVF SUBJECTIVE 01/14/2021: In bed still in the ED getting another set of labs 2nd Tylenol level normal. LFTs normal. Patient telling me that who she is trying to do voice is still home in will still order start from home if she does not go home soon. Also wants a letter to prove to her mother but she was in the hospital. Patient was stain awake alert follows commands appropriately thought process difficult to assess this point. 01/15/2021 patient is bed but easy to arouse. Sitter is in room. Reports no issues overnight. Patient is complaining of some right lower abdominal pain. REVIEW OF SYSTEMS Still complains of abdominal pain no nausea vomiting no chest pain shortness of breath no dizzinessno headaches Appetite is poor DATA Vitals: 01/15/21 0343 01/15/21 0400 01/15/21 0730 01/15/21 0949 BP: 136/69 151/74 BP Location: Left arm Left arm Patient Position: Lying Lying Pulse: 63 68 84 65 Resp: 18 20 Temp: 36.2 ??C (97.2 ??F) 36.7 ??C (98.1 ??F) TempSrc: Oral Oral SpO2: 100% 99% Weight: Height: Intake/Output Summary (Last 24 hours) at 01/15/2021 1144 Last data filed at 01/15/2021 0739 Gross per 24 hour Intake 1338.4 ml Output 200 ml Net 1138.4 ml CURRENT LAB RESULTS Recent Results (from the past 12 hour(s)) CBC with auto differential Collection Time: 01/15/21 9:07 AM Result Value Ref Range WBC 9.8 3.8 - 9.9 K/cumm Hgb 10.0 (L) 11.9 - 15.5 g/dL Hct 30.6 (L) 35.6 - 45.5 % Plt 336 150 - 400 K/cumm MPV 9.9 9.1 - 12.3 fL RBC 3.28 (L) 3.90 - 5.20 M/cumm MCV 93.3 81.3 - 96.4 fL MCH 30.5 27.1 - 33.3 pg MCHC 32.7 32.3 - 35.7 g/dL RDW CV 12.8 11.1 - 14.9 % RDW SD 43.8 35.7 - 48.1 fL NRBC abs 0.00 0.00 - 0.01 K/cumm Comprehensive metabolic panel Collection Time: 01/15/21 9:07 AM Result Value Ref Range Sodium 137 135 - 145 mmol/L Potassium, pl 3.3 3.3 - 4.9 mmol/L Chloride 108 97 - 110 mmol/L CO2 20 (L) 22 - 32 mmol/L Anion gap 9 2 - 15 mmol/L BUN 12 8 - 25 mg/dL Creatinine 0.59 (L) 0.60 - 1.10 mg/dL Glucose 96 70 - 199 mg/dL Calcium 8.5 8.5 - 10.3 mg/dL Bilirubin, total 0.2 0.1 - 1.2 mg/dL Protein, pl 5.7 (L) 6.5 - 8.5 g/dL Albumin 2.9 (L) 3.5 - 5.0 g/dL Alk phos 130 40 - 130 Units/L ALT 32 7 - 45 Units/L AST 31 10 - 45 Units/L Magnesium Collection Time: 01/15/21 9:07 AM Result Value Ref Range Magnesium 1.9 1.4 - 2.5 mg/dL Lipid panel Collection Time: 01/15/21 9:07 AM Result Value Ref Range Cholesterol 94 30 - 199 mg/dL Triglycerides 80 <=149 mg/dL HDL 30 (L) >=40 mg/dL LDL, calculated 48 <=129 mg/dL Non-HDL Cholesterol 64 mg/dL Chol/HDL ratio 3 Phosphorus Collection Time: 01/15/21 9:07 AM Result Value Ref Range Phosphorus, pl 1.5 (L) 2.3 - 4.5 mg/dL Differential, auto Collection Time: 01/15/21 9:07 AM Result Value Ref Range Neutrophil abs 8.2 (H) 1.7 - 6.5 K/cumm Imm gran abs 0.0 0.0 - 0.1 K/cumm Lymphocyte abs 0.8 0.8 - 3.3 K/cumm Monocyte abs 0.5 0.2 - 0.8 K/cumm Eosinophil abs 0.2 0.0 - 0.5 K/cumm Basophil abs 0.0 0.0 - 0.1 K/cumm Neutrophil pct 83.4 % Imm gran pct 0.4 % Lymphocyte pct 8.3 % Monocyte pct 5.4 % Eosinophil pct 2.2 % Basophil pct 0.3 % eGFR Collection Time: 01/15/21 9:07 AM Result Value Ref Range GFR 103 mL/min/1.73 m2 LAB TREND CBC: Lab Results Component Value Date WBC 9.8 01/15/2021 WBC 18.6 (H) 01/14/2021 WBC 22.9 (H) 01/13/2021 HGB 10.0 (L) 01/15/2021 HGB 11.1 (L) 01/14/2021 HGB 13.2 01/13/2021 HCT 30.6 (L) 01/15/2021 HCT 33.0 (L) 01/14/2021 HCT 38.5 01/13/2021 BMP: Lab Results Component Value Date SODIUM 137 01/15/2021 SODIUM 138 01/14/2021 SODIUM 134 (L) 01/13/2021 SODIUM 136 01/13/2021 POTASSIUM 3.3 01/15/2021 POTASSIUM 3.7 01/14/2021 POTASSIUM 2.5 (Critical) 01/13/2021 POTASSIUM 2.6 (Critical) 01/13/2021 CHLORIDE 108 01/15/2021 CREATININE 0.59 (L) 01/15/2021 CREATININE 1.39 (H) 01/14/2021 CREATININE 1.88 (H) 01/13/2021 CREATININE 1.94 (H) 01/13/2021 CALCIUM 8.5 01/15/2021 CALCIUM 8.9 01/14/2021 CALCIUM 10.2 01/13/2021 CALCIUM 10.1 01/13/2021 No results found for: BNP Lab Results Component Value Date ALKPHOS 130 01/15/2021 ALKPHOS 132 (H) 01/14/2021 ALKPHOS 151 (H) 01/13/2021 ALKPHOS 150 (H) 01/13/2021 Lab Results Component Value Date MAGNESIUM 1.9 01/15/2021 MAGNESIUM 2.2 01/14/2021 Lab Results Component Value Date AST 31 01/15/2021 AST 60 (H) 01/14/2021 AST 73 (H) 01/13/2021 AST 73 (H) 01/13/2021 Lab Results Component Value Date ALT 32 01/15/2021 ALT 39 01/14/2021 ALT 48 (H) 01/13/2021 ALT 48 (H) 01/13/2021 Lab Results Component Value Date PHOS 1.5 (L) 01/15/[address] Abdomen Pelvis WO Contrast IMPRESSION: 1. Findings compatible with constipation or obstipation. 2 nonobstructing renal calculi. XR Chest Pa Lateral 2 Vw IMPRESSION: Hyperinflation of the lungs. PROCEDURES MEDICATIONS FOR CURRENT ENCOUNTER Scheduled Meds: aspirin, 81 mg, oral, Daily clonazePAM, 1 mg, oral, BID cyclobenzaprine, 10 mg, oral, BID dicyclomine, 10 mg, oral, TID enoxaparin, 1 mg/kg, subcutaneous, Daily-2100 folic acid, 1 mg, oral, Daily with dinner metoprolol tartrate, 25 mg, oral, BID polyethylene glycol, 17 g, oral, Daily with lunch senna-docusate, 2 tablet, oral, BID sodium chloride 0.9%, 0.5-20 mL, intra-catheter, Q8H ELIU Continuous Infusions: sodium chloride 0.9%, 75 mL/hr, Last Rate: 75 mL/hr (01/14/212122) PRN Meds:. Diet: Dietary Orders (From admission, onward) Start Ordered 01/14/21 1202 Oral Nutrition Supplements Select Supplement: Ensure Enlive - any flavor 3 times daily Question: Select Supplement: Answer: Ensure Enlive - any flavor 01/14/21 1201 01/14/21 1139 Adult Diet GI Diets; Suicidal; Send on Disposables Diet effective now Question Answer Comment (CH) Diet type GI Diets Safety Precautions: Suicidal Injury Risk: Send on Disposables 01/14/21 1139 EXAM Vitals: 01/15/21 0949 BP: Pulse: 65 Resp: Temp: SpO2: General appearance: appears stated age, cooperative and no distress thin Head: Normocephalic, without obvious abnormality, atraumatic Eyes: conjunctivae/corneas clear. PERRL Lungs: clear to auscultation bilaterally Heart: regular rate and rhythm and S1, S2 normal Abdomen: soft, non-tender; bowel sounds normal; no masses, no organomegaly Extremities: extremities normal, warm and well-perfused Neurologic: Alert and oriented x4, non-focal ASSESSMENT AND PLAN All Diagnosis Present on Admission Unless Otherwise Stated: Abnormal troponin with complaints of chest pressure. Cardiology has been consulted. EKG noted. Continue aspirin Lovenox Lopressor. Elevated Tylenol level now resolved. Elevated LFTs could be related to Tylenol overuse already beginning to improve monitor Severe protein calorie malnutrition nutritional consult Acute kidney injury- nephrology is following. They feel that this is secondary to nausea vomiting NSAID use. Creatinine is improving with IV fluids Hypokalemia treated resolved monitor Disorganized thoughts. something about suicidal ideation very unclear. Psych consult placed. Patient does not seem suicidal to me know alludes to any suicidal ideation upon interview. Consulting physicians: Treatment Team: Consulting Physician: Ana Ellis MD; Consulting Physician: Kel Abreu MD; Consulting Physician: Sofía Mccabe MD Disposition: Pending Code status: Full Code Voice recognition software [employer] Direct was used dictate and transcribe this document. Scale And Skip Car Operator variances may occur. Despite proofreading, typographical errors may occur. Harper Guillaume MD. HOSPITALIST 01/15/2021 11:44 AM * Cande Flores NP - 01/15/2021 8:49 AM CDT Nephrology Progress Note Reason for Admission ELEVATED TROPONIN Interval history Appetite poor-pt. Sleepy,needs encouragement to eat.Says her right lower abdomen hurts- has had multiple surgeries for adhesions .Mentioned her sister is trying to help her get off marijuana . Creatinine trending down,acidosis and hypokalemia resolved on yesterday's labs.RFP this am pending.Renalultrasound pending.Afebrile,VSS.U/A sent for culture.Blood cultures NGTD.Cardiology here to see pt.and she talked about chest pain when asked. Says she is tired of this .Also says she hasn't been able to taste or smell for some time and has had several negative COVID tests. OBJECTIVE Vitals: Vitals: 01/15/21 0000 01/15/21 0343 01/15/21 0400 01/15/21 0730 BP: 136/69 151/74 BP Location: Left arm Left arm Patient Position: Lying Lying Pulse: 73 63 68 84 Resp: 18 20 Temp: 36.2 ??C (97.2 ??F) 36.7 ??C (98.1 ??F) TempSrc: Oral Oral SpO2: 100% 99% Weight: Height: I/O last 2 completed shifts: In: 1338.4 [P.O.:440; I.V.:898.4] Out: - REVIEW OF SYSTEMS Review of Systems Constitutional: Positive for appetite change. HENT: Negative. Eyes: Negative. Respiratory: Negative. Cardiovascular: Positive for chest pain. Gastrointestinal: Positive for abdominal pain. Skin: Negative. PHYSICAL EXAM Physical Exam Vitals and nursing note reviewed. HENT: Head: Normocephalic. Mouth/Throat: Mouth: Mucous membranes are moist. Pharynx: Oropharynx is clear. Cardiovascular: Rate and Rhythm: Normal rate and regular rhythm. Pulmonary: Effort: Pulmonary effort is normal. Breath sounds: Normal breath sounds. Abdominal: Palpations: Abdomen is soft. Tenderness: There is abdominal tenderness in the right lower quadrant. Skin: General: Skin is warm and dry. Psychiatric: Mood and Affect: Mood is depressed. Sleepy but arouses RLQ tender-worse with palpation.Large midline scar intact. MEDICATIONS Scheduled Meds:aspirin, 81 mg, oral, Daily clonazePAM, 1 mg, oral, BID cyclobenzaprine, 10 mg, oral, BID dicyclomine, 10 mg, oral, TID enoxaparin, 1 mg/kg, subcutaneous, Daily-2100 folic acid, 1 mg, oral, Daily with dinner metoprolol tartrate, 25 mg, oral, BID metoprolol tartrate, 25 mg, oral, BID polyethylene glycol, 17 g, oral, Daily with lunch senna-docusate, 2 tablet, oral, BID sodium chloride 0.9%, 0.5-20 mL, intra-catheter, Q8H ELIU Continuous Infusions:sodium chloride 0.9%, 75 mL/hr, Last Rate: 75 mL/hr (01/14/212122) PRN Meds:.ondansetron ODT OR ondansetron ??? oxyCODONE ??? Saline lock IV AND sodium chloride 0.9% AND sodium chloride 0.9% Lab/Radiology/Diagnostic Review: Recent Labs Lab Units 01/14/21 0644 01/13/21 6326 WBC K/cumm 18.6* 22.9* HEMOGLOBIN g/dL 11.1* 13.2 HEMATOCRIT % 33.0* 38.5 PLATELETS K/cumm 389 388 Recent Labs Lab Units 01/14/2144 01/13/212145 SODIUM mmol/L 138 136 134* POTASSIUM PLASMA mmol/L 3.7 2.6* 2.5* CHLORIDE mmol/L 104 95* 93* CO2 mmol/L 23 21* 21* ANIONGAP mmol/L 11 20* 20* GLUCOSE mg/dL 114 130 132 BUN SERUM mg/dL 26* 28* 28* CREATININE mg/dL 1.39* 1.94* 1.88* CALCIUM mg/dL 8.9 10.1 10.2 ALBUMIN g/dL 4.0 4.5 4.5 ALK PHOS Units/L 132* 150* 151* ALT Units/L 39 48* 48* AST Units/L 60* 73* 73* BILIRUBIN TOTAL mg/dL 0.3 0.4 0.4 Recent Labs Lab Units 01/14/2144 01/13/21214501/13/212145 [id number] mL/min/1.73 m2 43 -- 28 30 GLUCOSE mg/dL 114 < > 130 132 CALCIUM mg/dL 8.9 -- 10.1 10.2 ALBUMIN g/dL 4.0 -- 4.5 4.5 < > = values in this interval not displayed. Lab Results Component Value Date CALCIUM 8.9 01/14/2021 PHOS 3.0 04/27/2020 No results found for: HGBA1C Recent Labs Lab Units 01/14/21 1649 COLOR U Yellow CLARITY U Cloudy* SPEC GRAV U 1.021 PH, URINE 6.0 PROTEIN UR QL 1+* GLUCOSE URQL Negative KETONES UR Negative BLOOD UR 2+* NITRITE UR Negative LEUKOCYTE ESTERASE UR 4+* Recent Labs Lab Units 01/14/21 1649 CLARITY U Cloudy* COLOR U Yellow KETONES UR Negative NITRITE UR Negative SPEC GRAV U 1.021 UROBILINOGEN UR mg/dL <2.0 WBC UR QT /HPF >50* No results found for: [id number] ASSESSMENT and RECOMMENDATIONS 1. JHOANA related to N/V,NSAID use.Creatinine trending down with IVF.Appetite still poor-will continueIVF and monitor renal function. 2. F/E/N- monitor and replete lytes,encourage intake 3. Chest pain- cardiology evaluating pt. 4. GI sxs.- no more N/V,had BM.RLQ tender to palpation.Says she has had multiple surgeries in past for adhesions .Has Bentyl,stool softeners. 5. Leukocytosis-WBC trending down,urine culture pending. 6. Malnutrition-supplements,dietary consulted 7. SI-psychiatry involved,On klonopin Please contact me with any concerns. Thank you Harper Guillaume MD for the consult. Cande Flores NP Nephrology Pager: [phone] 01/15/2021 8:50 AM [employer] [phone] Cosigned by Sofía Mccabe MD at 01/19/2021 11:04 AM CDT * Ana Ellis MD - 01/14/2021 6:48 AM CDT HOSPITALIST PROGRESS NOTE PCP: Lazarus Albert [phone] Admit Date: 01/13/2021 9:29 PM LOS: 0 CHIEF COMPLAINT/ HPI 55 y.o. female with history of anxiety, DVT, endometriosis. RLQ abdominal pain for weeks that wraps around to the back She has nausea and vomiting of foodstuffemesis. No diarrhea. In fact she has not had a bowel movement in weeks until a small brown one yesterday. She notes chest pressure that began today and yesterday that has been recurrent, intermittent and lasts seconds to minutes. It does not radiate. It is accompanied by SOB, nausea, diaphoresis, and palpitations. She also notes CARRANZA. No recent cardiac work-up. Her signed an affidavit that the patient threatened to kill herself on Mother's day and that she has had visual hallucinations and delusions The ED [employer] felt the patient's thought process was very disorganized. She has significant pressure of speech and is tangential, but she can not hold a semi-decent conversation. She states she told him she was suicidal because she wanted him to understand how upset she was. She claims that some of this may be malic on his part as they are discussing divorce. She denies that she has any desire to harm herself or others. She is A&Ox4 at this time. She states that for the abdominal pain she has donn talking a lot of tylenol. She acknowledges 4-5g day. She states she also uses 8g tid of motrin. It is very difficult to pin down how many she took and when in regard to the tylenol. She denies any bleeding or melena. She states she has had bloody urine. The patient has hypokalemia, JHOANA, high gap acidosis, hepatitis, negative lactate, significant negative troponin trend, bandemia, negative salicylates, positive tylenol level, negative alcohol level. CXR with official read pending but looks okay to my eye. CT pending, but preliminary read to ED of nonobstructing stones and moderate constipation. EKbpm sinus tach with ST abnormalities inferolaterally without prior. The ED has given the patient aspirin, zofran, KCl ,and IVF SUBJECTIVE 01/14/2021: In bed still in the ED getting another set of labs 2nd Tylenol level normal. LFTs normal. Patient telling me that who she is trying to do voice is still home in will still order start from home if she does not go home soon. Also wants a letter to prove to her mother but she was in the hospital. Patient was stain awake alert follows commands appropriately thought process difficult to assess this point. REVIEW OF SYSTEMS Still complains of abdominal pain no nausea vomiting no chest pain shortness of breath no dizzinessno headaches DATA Vitals: 01/14/21 0257 01/14/21 0415 01/14/21 0510 01/14/21 0515 BP: 136/74 166/88 BP Location: Pulse: 92 101 85 89 Resp: 18 17 23 24 Temp: 36.8 ??C (98.2 ??F) TempSrc: Oral SpO2: 97% 98% 100% 100% Weight: Height: Intake/Output Summary (Last 24 hours) at 01/14/2021 0648 Last data filed at 01/14/2021 0026 Gross per 24 hour Intake 1000 ml Output -- Net 1000 ml CURRENT LAB RESULTS Recent Results (from the past 12 hour(s)) Comprehensive metabolic panel Collection Time: 01/13/21 9:46 PM Result Value Ref Range Sodium 134 (L) 135 - 145 mmol/L Potassium, pl 2.5 (Critical) 3.3 - 4.9 mmol/L Chloride 93 (L) 97 - 110 mmol/L CO2 21 (L) 22 - 32 mmol/L Anion gap 20 (H) 2 - 15 mmol/L BUN 28 (H) 8 - 25 mg/dL Creatinine 1.88 (H) 0.60 - 1.10 mg/dL Glucose 132 70 - 199 mg/dL Calcium 10.2 8.5 - 10.3 mg/dL Bilirubin, total 0.4 0.1 - 1.2 mg/dL Protein, pl 8.3 6.5 - 8.5 g/dL Albumin 4.5 3.5 - 5.0 g/dL Alk phos 151 (H) 40 - 130 Units/L ALT 48 (H) 7 - 45 Units/L AST 73 (H) 10 - 45 Units/L Lipase Collection Time: 01/13/21 9:46 PM Result Value Ref Range Lipase 26 10 - 99 Units/L Troponin T high-sensitivity series (baseline, 2hr, 4hr, 6hr) Collection Time: 01/13/21 9:46 PM Result Value Ref Range Trop T hs 39 (H) <=14 ng/L CBC with auto differential Collection Time: 01/13/21 9:46 PM Result Value Ref Range WBC 22.9 (H) 3.8 - 9.9 K/cumm Hgb 13.2 11.9 - 15.5 g/dL Hct 38.5 35.6 - 45.5 % Plt 388 150 - 400 K/cumm MPV 10.5 9.1 - 12.3 fL RBC 4.34 3.90 - 5.20 M/cumm MCV 88.7 81.3 - 96.4 fL MCH 30.4 27.1 - 33.3 pg MCHC 34.3 32.3 - 35.7 g/dL RDW CV 12.4 11.1 - 14.9 % RDW SD 40.2 35.7 - 48.1 fL NRBC abs 0.00 0.00 - 0.01 K/cumm Comprehensive metabolic panel Collection Time: 01/13/21 9:46 PM Result Value Ref Range Sodium 136 135 - 145 mmol/L Potassium, pl 2.6 (Critical) 3.3 - 4.9 mmol/L Chloride 95 (L) 97 - 110 mmol/L CO2 21 (L) 22 - 32 mmol/L Anion gap 20 (H) 2 - 15 mmol/L BUN 28 (H) 8 - 25 mg/dL Creatinine 1.94 (H) 0.60 - 1.10 mg/dL Glucose 130 70 - 199 mg/dL Calcium 10.1 8.5 - 10.3 mg/dL Bilirubin, total 0.4 0.1 - 1.2 mg/dL Protein, pl 8.4 6.5 - 8.5 g/dL Albumin 4.5 3.5 - 5.0 g/dL Alk phos 150 (H) 40 - 130 Units/L ALT 48 (H) 7 - 45 Units/L AST 73 (H) 10 - 45 Units/L Ethanol Collection Time: 01/13/21 9:46 PM Result Value Ref Range Ethanol <10 <=10 mg/dL TSH Collection Time: 01/13/21 9:46 PM Result Value Ref Range Thyroid Stimulating Hormone 0.64 0.30 - 4.20 mcIUnit/mL Salicylate level Collection Time: 01/13/21 9:46 PM Result Value Ref Range Salicylate <0.3 mg/dL Acetaminophen level Collection Time: 01/13/21 9:46 PM Result Value Ref Range Acetaminophen 20.8 (H) 10.0 - 20.0 mcg/mL Differential, auto Collection Time: 01/13/21 9:46 PM Result Value Ref Range Neutrophil abs 20.0 (H) 1.7 - 6.5 K/cumm Imm gran abs 0.1 0.0 - 0.1 K/cumm Lymphocyte abs 1.0 0.8 - 3.3 K/cumm Monocyte abs 1.8 (H) 0.2 - 0.8 K/cumm Eosinophil abs 0.0 0.0 - 0.5 K/cumm Basophil abs 0.0 0.0 - 0.1 K/cumm Neutrophil pct 87.2 % Imm gran pct 0.6 % Lymphocyte pct 4.2 % Monocyte pct 7.7 % Eosinophil pct 0.1 % Basophil pct 0.2 % eGFR Collection Time: 01/13/21 9:46 PM Result Value Ref Range GFR 30 mL/min/1.73 m2 eGFR Collection Time: 01/13/21 9:46 PM Result Value Ref Range GFR 28 mL/min/1.73 m2 Troponin T high-sensitivity 2-hour Collection Time: 01/14/21 12:39 AM Result Value Ref Range Trop T hs 27 (H) <=14 ng/L Trop T hs delta -12 (Critical) ng/L Trop T hs interp Significant (Critical) Acetaminophen level Collection Time: 01/14/21 12:39 AM Result Value Ref Range Acetaminophen 10.5 10.0 - 20.0 mcg/mL Troponin T high-sensitivity 4-hour Collection Time: 01/14/21 2:15 AM Result Value Ref Range Trop T hs 25 (H) <=14 ng/L Trop T hs delta -14 (Critical) ng/L Trop T hs interp Significant (Critical) Troponin T high-sensitivity 6-hour Collection Time: 01/14/21 4:17 AM Result Value Ref Range Trop T hs 23 (H) <=14 ng/L Trop T hs delta -16 (Critical) ng/L Trop T hs interp Significant (Critical) Lactate Collection Time: 01/14/21 4:17 AM Result Value Ref Range Lactate 1.2 0.7 - 2.0 mmol/L Blood gas, venous Collection Time: 01/14/21 5:35 AM Result Value Ref Range pH, Venous 7.39 7.32 - 7.43 PCO2, Venous 39 (L) 40 - 50 mmHg PO2, Venous <30 mmHg HCO3 Venous, Calculated 22 20 - 30 mmol/L BE, venous -1 mmol/L LAB TREND CBC: Lab Results Component Value Date WBC 22.9 (H) 01/13/2021 HGB 13.2 01/13/2021 HCT 38.5 01/13/2021 BMP: Lab Results Component Value Date SODIUM 134 (L) 01/13/2021 SODIUM 136 01/13/2021 POTASSIUM 2.5 (Critical) 01/13/2021 POTASSIUM 2.6 (Critical) 01/13/2021 CHLORIDE 93 (L) 01/13/2021 CHLORIDE 95 (L) 01/13/2021 CREATININE 1.88 (H) 01/13/2021 CREATININE 1.94 (H) 01/13/2021 CALCIUM 10.2 01/13/2021 CALCIUM 10.1 01/13/2021 No results found for: BNP Lab Results Component Value Date ALKPHOS 151 (H) 01/13/2021 ALKPHOS 150 (H) 01/13/2021 No results found for: MAGNESIUM Lab Results Component Value Date AST 73 (H) 01/13/2021 AST 73 (H) 01/13/2021 Lab Results Component Value Date ALT 48 (H) 01/13/2021 ALT 48 (H) 01/13/2021 No results found for: PHOS RADIOLOGY CT Abdomen Pelvis WO Contrast IMPRESSION: 1. Findings compatible with constipation or obstipation. 2 nonobstructing renal calculi. XR Chest Pa Lateral 2 Vw IMPRESSION: Hyperinflation of the lungs. PROCEDURES MEDICATIONS FOR CURRENT ENCOUNTER Scheduled Meds: acetylcysteine, 150 mg/kg, intravenous, Once enoxaparin, 1 mg/kg, subcutaneous, Daily-2100 metoprolol tartrate, 25 mg, oral, BID Continuous Infusions: acetylcysteine (ACETADOTE) infusion 30 MG/ML, 12.5 mg/kg/hr dextrose 5% and sodium chloride 0.9%, 100 mL/hr PRN Meds:. Diet: Dietary Orders (From admission, onward) Start Ordered 01/14/21 06 NPO Diet Sips with meds Diet effective now Question: NPO except: Answer: Sips with meds 01/14/21 06 EXAM Vitals: 01/14/21 0515 BP: Pulse: 89 Resp: 24 Temp: SpO2: 100% General appearance: appears stated age, cooperative and no distress thin Head: Normocephalic, without obvious abnormality, atraumatic Eyes: conjunctivae/corneas clear. PERRL Lungs: clear to auscultation bilaterally Heart: regular rate and rhythm and S1, S2 normal Abdomen: soft, non-tender; bowel sounds normal; no masses, no organomegaly Extremities: extremities normal, warm and well-perfused Neurologic: Alert and oriented x4, non-focal ASSESSMENT AND PLAN All Diagnosis Present on Admission Unless Otherwise Stated: Abnormal troponin with complaints of chest pressure. Cardiology has been consulted. EKG noted. Continue aspirin Lovenox Lopressor. Elevated Tylenol level now resolved. Elevated LFTs could be related to Tylenol overuse already beginning to improve monitor Severe protein calorie malnutrition nutritional consult Acute kidney injury may benefit from hydration nephrology consult Hypokalemia treated resolved monitor Disorganized thoughts. something about suicidal ideation very unclear. Psych consult placed. Patient does not seem suicidal to me know alludes to any suicidal ideation upon interview. I spent a total of 35 Face to Face minutes of which more than 50% of the time was spent in counseling and coordination of care. Medical Decision Making Complexity: High Consulting physicians: Treatment Team: Consulting Physician: Ana Ellis MD Disposition: Pending Code status: Prior Voice recognition software [email or web address] Direct was used dictate and transcribe this document. Scale [employer] Car Operator variances may occur. Despite proofreading, typographical errors may occur. Ana Ellis MD. HOSPITALIST 01/14/2021 6:48 AM documented in this encounter H&P Notes * Francisco Padilla MD - 01/14/2021 4:38 AM CDT General Medicine History and Physical DATE OF SERVICE: 01/14/21 PRIMARY CARE PHYSICIAN: Dr. Lazarus Albert SUBJECTIVE: Patient is a 55 y.o. female with a chief complaint of abdominal pain. HPI: 55 y.o. female with history of anxiety, DVT, endometriosis. RLQ abdominal pain for weeks that wraps around to the back She has nausea and vomiting of foodstuffemesis. No diarrhea. In fact she has not had a bowel movement in weeks until a small brown one yesterday. She notes chest pressure that began today and yesterday that has been recurrent, intermittent and lasts seconds to minutes. It does not radiate. It is accompanied by SOB, nausea, diaphoresis, and palpitations. She also notes CARRANZA. No recent cardiac work-up. Her signed an affidavit that the patient threatened to kill herself on Mother's day and that she has had visual hallucinations and delusions The ED [employer] felt the patient's thouht process was very disorganized. She has significant pressure of speech and is tangential, but she can not hold a semi-decent conversation. She states she told him she was suicidal because she wanted him to understand how upset she was. She claims that some of this may be malic on his part as they are discussing divorce. She denies that she has any desire to harm herself or others. She is A&Ox4 at this time. She states that for the abdominal pain she has donn talking a lot of tylenol. She acknowledges 4-5g day. She states she also uses 8g tid of motrin. It is very difficult to pin down how many she took and when in regard to the tylenol. She denies any bleeding or melena. She states she has had bloody urine. The patient has hypokalemia, JHOANA, high gap acidosis, hepatitis, negative lactate, significant negative troponin trend, bandemia, negative salicylates, positive tylenol level, negative alcohol level. CXR with official read pending but looks okay to my eye. CT pending, but preliminary read to ED of nonobstructing stones and moderate constipation. EKbpm sinus tach with ST abnormalities inferolaterally without prior. The ED has given the patient aspirin, zofran, KCl ,and IVF I reviewed the past six months of notes in [facility], Clinical Desktop, and Care Everywhere as well as the patient's last hospitalization to determine the patient's recent health activity. The patient appears to have been stable. I reviewed the patient's vital signs, inpatient meds, outpatient meds, labs, imaging, orders, and EKG. Past Medical History: Diagnosis Date ??? Anemia ??? Anxiety disorder ??? Colon obstruction (CMS/HCC) ??? DVT (deep venous thrombosis) (CMS/HCC) 11/2018 ??? Endometriosis Endometriosis-21 times ??? Hyperlipidemia [...] ??? LAPAROSCOPIC ENDOMETRIOSIS FULGURATION Endometriosis-21 times: lap/laser (Not in a hospital admission) Allergies Allergen Reactions ??? Codeine Hives ??? Duloxetine Mental status changes Reaction: CONFUSION, ??? Gabapentin Mental status changes ??? Paxil [Paroxetine] Mental status changes ??? Wellbutrin [Bupropion] Mental status changes ??? Zoloft [Sertraline] Mental status changes Social History Tobacco Use ??? Smoking status: Former Smoker Packs/day: 2.00 Years: 12.00 Pack years: 24.00 Types: E-cigarettes, Cigarettes Start date: 1981 Quit date: 03/19/2008 Years since quittin.8 ??? Smokeless tobacco: Never Used Substance Use [...] disease; ??? Anesthesia problems Neg Hx Family history of heart disease. Prior to Admission medications Medication Sig Start Date End Date Taking? Authorizing Provider acetaminophen 500 mg capsule Take 2 capsules (1,000 mg total) by mouth every 6 (six) hours 04/28/20 Uriel Nguyen MD alendronate (FOSAMAX) 70 mg tablet Take 70 mg by mouth every 7 days Take in the morning with a fullglass of water, on an empty stomach, and do not take anything else by mouth or lie down for the next 30 min. EVERY SATURDAY Yuriy Rascon MD aspirin 81 mg enteric coated tablet Take 1 tablet (81 mg total) by mouth every other day Patient taking differently: Take 1 tablet by mouth every other day. Indications: prevention of thrombosis 04/28/20 Libby Medellin, STEVEN calcium carbonate-vitamin D3 500 mg(1,250mg) -400 unit chewable tablet Take 1 tablet by mouth everymorning Yuriy Rascon MD clonazePAM (KlonoPIN) 1 mg tablet Take 1 mg by mouth 2 (two) times a day 09/09/19 Yuriy Rascon MD clotrimazole-betamethasone (LOTRISONE) cream Apply topically daily as needed 09/09/19 Yuriy Rascon MD cyanocobalamin (Vitamin B-12) 100 mcg tablet Take 1,000 mcg by mouth every morning Yuriy Rascon MD cyclobenzaprine (FLEXERIL) 10 mg tablet Take 10 mg by mouth 2 (two) times a day Yuriy Rascon MD dicyclomine (BENTYL) 10 mg capsule Take 10 mg by mouth 3 (three) times a day 08/30/19 Yuriy Rascon MD docusate sodium (COLACE) 100 mg capsule Take 100 mg by mouth daily with lunch Yuriy Rascon MD ergocalciferol (VITAMIN D) 50,000 unit capsule Take 50,000 Units by mouth once a week SATURDAY Yuriy Rascon MD ferrous fumarate 325 mg (106 mg iron) tablet Take 106 mg of elemental iron by mouth daily with dinner Yuriy Rascon MD folic acid (FOLVITE) 1 mg tablet Take 1 mg by mouth daily with dinner Yuriy Rascon MD levocetirizine (XYZAL) 5 mg tablet Take 5 mg by mouth daily with lunch Yuriy Rascon MD oxyCODONE (ROXICODONE) 5 mg immediate release tablet Take 1 tablet (5 mg total) by mouth every 4 (four) hours as needed for pain 05/11/20 Ari Partida MD polyethylene glycol (MIRALAX) 17 gram packet Take 17 g by mouth daily with lunch Yuriy Rascon MD prochlorperazine (Compazine) 10 mg tablet Take 10 mg by mouth every 6 (six) hours as needed for nausea or vomiting. Indications: nausea and vomiting Yuriy Rascon MD rizatriptan (MAXALT) 10 mg tablet Take 10 mg by mouth once as needed for migraine May repeat in 2 hours if unresolved. Do not exceed 30 mg in 24 hours. Yuryi Rascon MD traZODone (DESYREL) 150 mg tablet Take 150 mg by mouth nightly Yuriy Rascon MD Review of Systems Constitutional: Positive for fever. HENT: Negative for sneezing. Respiratory: Positive for cough. Positive for shortness of breath Cardiovascular: Positive for chest pain. Gastrointestinal: Positive for vomiting. Negative for diarrhea. Genitourinary: Negative for dysuria. Musculoskeletal: Negative for arthralgias. Skin: Negative for rash. Neurological: Negative for seizure. Psychiatric/Behavioral: Negative for agitation. OBJECTIVE: Vitals: Arrival Vitals Temp 01/13/21 1931 36.1 ??C (97 ??F) Pulse 01/13/211930 (!) 128 Resp 01/13/211930 20 BP 01/13/211930 123/94 SpO2 01/13/211934 100 % Temp src 01/13/211930 Temporal Heart Rate Source 01/13/211930 Pulse Oximetry Patient Position -- BP Location 01/13/211930 Left arm FiO2 (%) -- Most Recent : Vitals: 01/14/21 0257 01/14/21 0415 01/14/21 0510 01/14/21 0515 BP: 136/74 166/88 BP Location: Pulse: 92 101 85 89 Resp: 18 24 Temp: 36.8 ??C (98.2 ??F) TempSrc: Oral SpO2: 97% 98% 100% 100% Weight: Height: Physical exam: General appearance: appears stated age and cooperative, frail, malnourished Head: Normocephalic, without obvious abnormality, atraumatic Eyes: conjunctivae clear Neck: no JVD and supple, Throat: symmetrical, trachea midline Respiratory: clear to auscultation bilaterally and no rubs Cardiovascular: Regular rate and rhythm, S1, S2 normal, no murmur click, rub, or gallop Gastrointestinal: soft, RLQ tenderness without rebound; no masses, no organomegaly Extremities: extremities normal warm and well-perfused Muscoskeletal: bones normal, muscle with tone Skin: Skin color texture, turgor normal. No rashes or lesions Neurologic: Alert and oriented x4, non-focal Psych: Pressured speech and tangential but otherwise normal. Lab/Radiology/Diagnostic Review: Recent Results (from the past 24 hour(s)) Comprehensive metabolic panel Collection Time: 01/13/21 9:46 PM Result Value Ref Range Sodium 134 (L) 135 - 145 mmol/L Potassium, pl 2.5 (Critical) 3.3 - 4.9 mmol/L Chloride 93 (L) 97 - 110 mmol/L CO2 21 (L) 22 - 32 mmol/L Anion gap 20 (H) 2 - 15 mmol/L BUN 28 (H) 8 - 25 mg/dL Creatinine 1.88 (H) 0.60 - 1.10 mg/dL Glucose 132 70 - 199 mg/dL Calcium 10.2 8.5 - 10.3 mg/dL Bilirubin, total 0.4 0.1 - 1.2 mg/dL Protein, pl 8.3 6.5 - 8.5 g/dL Albumin 4.5 3.5 - 5.0 g/dL Alk phos 151 (H) 40 - 130 Units/L ALT 48 (H) 7 - 45 Units/L AST 73 (H) 10 - 45 Units/L Lipase Collection Time: 01/13/21 9:46 PM Result Value Ref Range Lipase 26 10 - 99 Units/L Troponin T high-sensitivity series (baseline, 2hr, 4hr, 6hr) Collection Time: 01/13/21 9:46 PM Result Value Ref Range Trop T hs 39 (H) <=14 ng/L CBC with auto differential Collection Time: 01/13/21 9:46 PM Result Value Ref Range WBC 22.9 (H) 3.8 - 9.9 K/cumm Hgb 13.2 11.9 - 15.5 g/dL Hct 38.5 35.6 - 45.5 % Plt 388 150 - 400 K/cumm MPV 10.5 9.1 - 12.3 fL RBC 4.34 3.90 - 5.20 M/cumm MCV 88.7 81.3 - 96.4 fL MCH 30.4 27.1 - 33.3 pg MCHC 34.3 32.3 - 35.7 g/dL RDW CV 12.4 11.1 - 14.9 % RDW SD 40.2 35.7 - 48.1 fL NRBC abs 0.00 0.00 - 0.01 K/cumm Comprehensive metabolic panel Collection Time: 01/13/21 9:46 PM Result Value Ref Range Sodium 136 135 - 145 mmol/L Potassium, pl 2.6 (Critical) 3.3 - 4.9 mmol/L Chloride 95 (L) 97 - 110 mmol/L CO2 21 (L) 22 - 32 mmol/L Anion gap 20 (H) 2 - 15 mmol/L BUN 28 (H) 8 - 25 mg/dL Creatinine 1.94 (H) 0.60 - 1.10 mg/dL Glucose 130 70 - 199 mg/dL Calcium 10.1 8.5 - 10.3 mg/dL Bilirubin, total 0.4 0.1 - 1.2 mg/dL Protein, pl 8.4 6.5 - 8.5 g/dL Albumin 4.5 3.5 - 5.0 g/dL Alk phos 150 (H) 40 - 130 Units/L ALT 48 (H) 7 - 45 Units/L AST 73 (H) 10 - 45 Units/L Ethanol Collection Time: 01/13/21 9:46 PM Result Value Ref Range Ethanol <10 <=10 mg/dL TSH Collection Time: 01/13/21 9:46 PM Result Value Ref Range Thyroid Stimulating Hormone 0.64 0.30 - 4.20 mcIUnit/mL Salicylate level Collection Time: 01/13/21 9:46 PM Result Value Ref Range Salicylate <0.3 mg/dL Acetaminophen level Collection Time: 01/13/21 9:46 PM Result Value Ref Range Acetaminophen 20.8 (H) 10.0 - 20.0 mcg/mL Differential, auto Collection Time: 01/13/21 9:46 PM Result Value Ref Range Neutrophil abs 20.0 (H) 1.7 - 6.5 K/cumm Imm gran abs 0.1 0.0 - 0.1 K/cumm Lymphocyte abs 1.0 0.8 - 3.3 K/cumm Monocyte abs 1.8 (H) 0.2 - 0.8 K/cumm Eosinophil abs 0.0 0.0 - 0.5 K/cumm Basophil abs 0.0 0.0 - 0.1 K/cumm Neutrophil pct 87.2 % Imm gran pct 0.6 % Lymphocyte pct 4.2 % Monocyte pct 7.7 % Eosinophil pct 0.1 % Basophil pct 0.2 % eGFR Collection Time: 01/13/21 9:46 PM Result Value Ref Range GFR 30 mL/min/1.73 m2 eGFR Collection Time: 01/13/21 9:46 PM Result Value Ref Range GFR 28 mL/min/1.73 m2 Troponin T high-sensitivity 2-hour Collection Time: 01/14/21 12:39 AM Result Value Ref Range Trop T hs 27 (H) <=14 ng/L Trop T hs delta -12 (Critical) ng/L Trop T hs interp Significant (Critical) Acetaminophen level Collection Time: 01/14/21 12:39 AM Result Value Ref Range Acetaminophen 10.5 10.0 - 20.0 mcg/mL Troponin T high-sensitivity 4-hour Collection Time: 01/14/21 2:15 AM Result Value Ref Range Trop T hs 25 (H) <=14 ng/L Trop T hs delta -14 (Critical) ng/L Trop T hs interp Significant (Critical) Troponin T high-sensitivity 6-hour Collection Time: 01/14/21 4:17 AM Result Value Ref Range Trop T hs 23 (H) <=14 ng/L Trop T hs delta -16 (Critical) ng/L Trop T hs interp Significant (Critical) Lactate Collection Time: 01/14/21 4:17 AM Result Value Ref Range Lactate 1.2 0.7 - 2.0 mmol/L No results found. ASSESSMENT/PLAN: Principal Problem: Chest pressure Active Problems: Elevated troponin Hepatitis Tylenol overdose JHOANA (acute kidney injury) (CMS/HCC) NSAID overdose Bandemia High anion gap metabolic acidosis Hypokalemia Right lower quadrant abdominal pain History of DVT (deep vein thrombosis) Suicidal ideation Frailty Severe protein-calorie malnutrition (CMS/HCC) 1. Chest pressure with abnormal troponins: Repeat EKG. Lopressor, aspirin, lovenox. No chest pressure now. No lipitor given hepatitis. Cardiology Consult Telemetry 2. Hepatitis with heavy tylenol use: Given hepatitis, tylenol overdose, and unclear ingestion time;start NAC drip. Serial tylenol labs 3. JHOANA with NSAID overuse: Hydrate and follow. Consult Nephrology. 4. Bandemia: Follow up CXR. Check blood cultures and UA reflex. 5. High gap acidosis: Negative salicylates and lactate. VBG pending. Follow 6. Hypokalemia: Gentle repletion. Check Mg. 7. Abdominal pain: Preliminary read did not state which side the stones are on or the size. Pendingthe final read, kidney stones could be the source of the paiin. Alternatviely it could be constipatino. Bowel regimen. My be drug seeking. UDS 8. Sucidal thoughts: Psych Eval . 9. History of DVT: not on oral anticoagulants outpatient but awaiting update home med list. 10. Frailty and malnutrition: PT/OT, Nutrition Consult 11. Misc: Awaiting updated home med list dvt ppx; therapeutic Lovenox. Full Code ESTIMATED LENGTH OF STAY: Two or more inpatient midnights All diagnoses present on admission unless otherwise noted. 85 minutes spent on admitting this patient for multiple issues which is a life- threatening diagnosis. documented in this encounter Consult Notes * Kevin Albert MD - 01/17/2021 7:30 PM CDT Psychiatry Consultation Name: Madison Weinberg Age: 55 y.o. Sex: female Date: 01/17/2021 Patient's Primary Care Physician: Lazarus Albert MD INFORMANTS: Includes the patient who is questionably reliable and records from Epic chart REASON FOR CONSULT: Depression, psychosis, suicidal ideations Chief Complaint: ???They told me I didn't need any medicine when I was at [facility]?? HISTORY OF PRESENT ILLNESS: Madison Weinberg is a 55-year-old female admitted on January 14 for abdominal pain. According to records from the chart, the patient has been depressed and apparently had threatened to killherself on Mother's Day. Patient also had been experiencing visual hallucinations and delusions. Inthe emergency department the patient was noted to have disorganized thinking. Speech was pressured.Patient had admitted to making suicidal statements because she wanted her or no help upset she was. There was some discussion about divorce that led patient to make this statements. [facility] patient has display some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 of Chemical Dependency, Attempts at control Problems Associated with Chemical Use Chemical Use Problems associated w/ chemical use: Marital Based on the first part of the assessment, amanda those criteria present. You may need to ask furtherquestions to clarify the presence of a particular criteria. CRITERIA FOR A PROVSIONAL DIAGNOSIS: Three or more are required for a referral to treatment. Criteria for a provisional diagnosis : (NA) and [place] Suicide Severity Rating Scale (Short) [place] Suicide Severity Rating Scale 1. Wish to be : No 2. Suicidal Thoughts: No 6. Suicide Behavior Question: No Vaishali Clements LCSW 01/15/21 * Angela Abdul MD - 01/15/2021 8:46 AM CDT Cardiology Consult Chart reviewed, patient examined. Discussed with care team. See dictated report Chest pain, abnormal troponin, Renal failure. Echo, stress test, lipid profile * Angela Abdul MD - 01/15/2021 12:00 AM CDT Ms. Weinberg is a 55-year-old female who is being seen for evaluation of chest pain. History of Present Illness Ms. Weinberg is a 55-year-old female who presents to the emergency department of this hospital with chest pain that has been present for about 3 weeks. She describes having dull pain over the precordial area, radiating across the anterior aspect of her chest. It is described as squeezing in character, moderate in severity, having no specific relation to breathing or activity, and no relieving oraggravating factors. Symptoms have progressively become worse and cardiology consultation was requested. She had troponins done which were normal. When I evaluated her she was lying comfortably in bed, did not appear to be in any significant distress. She has complained of recurrent episodes of abdominal pain, nausea accompanied by vomiting and also showed suicidal tendencies yesterday and a sitter was sitting in the room with her. There is no recent history of fever, cough with expectoration, hemoptysis, swelling over the feet or syncope. Review of Systems All systems reviewed and pertinent positives are mentioned in the history of present illness. Past Medical History She is a known patient of: 1. Hepatitis. 2. Renal insufficiency. 3. DVT. 4. Vitamin B12 deficiency. 5. Hyperlipidemia. 6. Acid reflux. 7. Back pain. 8. Anxiety and depression. Home Medications 1. Imitrex. 2. Tramadol. 3. Valtrex. 4. Zyprexa. 5. Ativan. Social History Is a nonsmoker, was a smoker in the past and smoked for about more than 20 years. Takes alcohol on a regular basis. Allergies CODEINE, DULOXETINE, GABAPENTIN, PAXIL, WELLBUTRIN, ZOLOFT. Family History Could not be obtained. Physical Examination Constitutional: Middle-aged patient of average build lying in bed. She is alert, follows commands. Eyes: Normal. There is no pallor or icterus. Neck: Central trachea. No thyromegaly. Her JVP is not raised. ENT: Lips and oral mucosa normal. Skin: Warm and moist. There are no rashes. Musculoskeletal: Normal. Vital Signs: Pulse of 71 per minute, blood pressure 133/81, respiratory rate 18 per minute, and sheis afebrile. There are no carotid bruits. Peripheral pulses are 1+. Chest: Reveals diminished air entry bilaterally. There are no added sounds. Heart: S1, S2 normal. No S3, S4 or rub. Abdomen: Nontender. No guarding. There is no palpable organomegaly or free fluid. Bowel sounds are present. Neurologic: The patient is alert, follows simple commands. Lab Values Albumin of 4, chloride 104, bicarbonate 23, BUN of 26, creatinine 1.39, glucose of 114. White cell count of 18,600, hemoglobin 11.1, hematocrit 33, platelet count of 389. ECG is within normal limits.Troponin trend is positive. Impression 1. Chest pain, abnormal troponins. 2. Suicidal ideation. 3. Renal insufficiency. 4. Drug overdose. 5. Anxiety and depression. 6. Abnormal LFTs, which have now resolved. 7. Hyperlipidemia. 8. History of DVT. Action Plan The patient presented to the emergency department of this hospital with recurrent episodes of chestpain, abdominal pain, drug overdose, suicidal ideation. She was noted to have abnormal troponins and cardiology consult was requested. The patient complains of a squeezing pain in the precordial and retrosternal area for approximately3 weeks. Her ECGs within normal limits and her troponins show a positive delta. Her symptoms are not convincing for acute coronary syndrome, and she will be scheduled for a stress test for risk stratification. Echo with Doppler has also been ordered. The patient had abnormal LFTs at admission, which are likely due to Tylenol overdose. They have nowreturned back to baseline. She also had acute renal failure which has now resolved with IV fluids and was likely due to dehydration resulting from recurrent episodes of nausea and vomiting. The patient has a history of hyperlipidemia and she was on Lipitor, which was stopped because of abnormal LFTs. As they have returned back to baseline, this is being resumed. Hospitalists are managing patient's multiple medical problems. based on the results of her echo and stress test further recommendations on her care will be made. Job ID/VF Job ID: [id number] * Jorje Osorio MD - 01/14/2021 2:21 PM CDT Nephrology Consult [facility] Reason for Consult: JHOANA Requesting Provider: Ana Ellis MD Subjective Patient is a 55 y.o. female with chief complaint of abd pain. Reason for consult: JHOANA HPI: 55 yr old woman with elevated Cr, 1.8. Denies any knowledge of CKD. K low. Appears volume contracted. Medical problems listed below. Has a sitter for suicide precautions. Denies suicidal ideation to me. Has a hx of Kidney stones per patient. C/o some vague abd pain. WBC count 22K. 55 y.o. female with history of anxiety, DVT, endometriosis. RLQ abdominal pain for weeks that wraps around to the back She has nausea and vomiting of foodstuffemesis. No diarrhea. In fact she has not had a bowel movement in weeks until a small brown one yesterday. She notes chest pressure that began today and yesterday that has been recurrent, intermittent and lasts seconds to minutes. It does not radiate. It is accompanied by SOB, nausea, diaphoresis, and palpitations. She also notes CARRANZA. No recent cardiac work-up. ? Past Medical History: Diagnosis Date ??? Anemia ??? Anxiety disorder ??? Colon obstruction (CMS/HCC) ??? DVT (deep venous thrombosis) (CMS/HCC) 11/2018 ??? Endometriosis Endometriosis-21 times ??? Hyperlipidemia [...] ??? LAPAROSCOPIC ENDOMETRIOSIS FULGURATION Endometriosis-21 times: lap/laser Medications Prior to Admission Medication Sig Dispense Refill Last Dose ??? tamsulosin (FLOMAX) 0.4 mg extended release capsule tamsulosin 0.4 mg capsule TAKE 1 CAPSULE BY MOUTH EVERY DAY Past Week at Unknown time ??? acetaminophen 500 mg capsule Take 2 capsules (1,000 mg total) by mouth every 6 (six) hours 30 tablet Past Month at Unknown time ??? alendronate (FOSAMAX) 70 mg tablet Take 70 mg by mouth every 7 days Take in the morning with a full glass of water, on an empty stomach, and do not take anything else by mouth or lie down for thenext 30 min. saturday ??? aspirin 81 mg enteric coated tablet Take 1 tablet (81 mg total) by mouth every other day (Patient taking differently: Take 1 tablet by mouth every other day. Indications: prevention of thrombosis) Past Week at Unknown time ??? atorvastatin (LIPITOR) 20 mg tablet Past Week at Unknown time ??? calcium carbonate-vitamin D3 (CALTRATE 600 + D) 1500 mg (600 mg elemental) - 400 units per tablet TAKE 1 TABLET BY MOUTH TWICE A DAY DIRECTED Past Week at Unknown time ??? clonazePAM (KlonoPIN) 1 mg tablet Take 1 mg by mouth 2 (two) times a day 01/13/2021 at Unknown time ??? clotrimazole-betamethasone (LOTRISONE) cream Apply topically daily as needed ??? cyanocobalamin (Vitamin B-12) 1,000 mcg tablet Take 1,000 mcg by mouth daily Past Week at Unknown time ??? cyclobenzaprine (FLEXERIL) 10 mg tablet Take 10 mg by mouth 2 (two) times a day Past Week at Unknown time ??? dicyclomine (BENTYL) 10 mg capsule Take 10 mg by mouth 3 (three) times a day Past Week at Unknown time ??? docusate sodium (COLACE) 100 mg capsule Take 100 mg by mouth daily with lunch Past Week at Unknown time ??? ergocalciferol (VITAMIN D) 50,000 unit capsule Take 50,000 Units by mouth once a week SATURDAY Past Week at Unknown time ??? fluticasone propionate (FLONASE) 50 mcg/actuation nasal spray fluticasone propionate 50 mcg/actuation nasal spray,suspension SPRAY 2 SPRAYS IN EACH NOSTRIL ONCE DAILY Past Week at Unknown time ??? folic acid (FOLVITE) 1 mg tablet Take 1 mg by mouth daily with dinner Past Week at Unknown time ??? HYDROcodone-acetaminophen (NORCO) 5-325 mg per tablet Past Week at Unknown time ??? levocetirizine (XYZAL) 5 mg tablet Take 5 mg by mouth daily with lunch Past Week at Unknown time ??? LORazepam (ATIVAN) 0.5 mg tablet Past Week at Unknown time ??? OLANZapine (ZyPREXA) 2.5 mg tablet Past Week at Unknown time ??? pantoprazole DR (PROTONIX) 40 mg EC tablet Take 40 mg by mouth every morning Past Week at Unknown time ??? polyethylene glycol (MIRALAX) 17 gram packet Take 17 g by mouth daily with lunch Past Week at Unknown time ??? prochlorperazine (Compazine) 10 mg tablet Take 10 mg by mouth every 6 (six) hours as needed fornausea or vomiting. Indications: nausea and vomiting Past Week at Unknown time ??? rizatriptan (MAXALT) 10 mg tablet Take 10 mg by mouth once as needed for migraine May repeat in2 hours if unresolved. Do not exceed 30 mg in 24 hours. Past Week at Unknown time ??? SUMAtriptan (IMITREX) 100 mg tablet Past Week at Unknown time ??? traMADoL (ULTRAM) 50 mg tablet Past Week at Unknown time ??? traZODone (DESYREL) 150 mg tablet Take 150 mg by mouth nightly Past Week at Unknown time ??? valACYclovir (VALTREX) 1 gram tablet valacyclovir 1 gram tablet Take 1 tablet 3 times a day by oral route as directed for 10 days. Past Week at Unknown time ??? venlafaxine XR (EFFEXOR-XR) 75 mg 24 hr capsule Take 75 mg by mouth 2 (two) times a day Past Week at Unknown time Allergies Allergen Reactions ??? Codeine Hives ??? Duloxetine Mental status changes Reaction: CONFUSION, ??? Gabapentin Mental status changes ??? Paxil [Paroxetine] Mental status changes ??? Wellbutrin [Bupropion] Mental status changes ??? Zoloft [Sertraline] Mental status changes Social History Tobacco Use ??? Smoking status: Former Smoker Packs/day: 2.00 Years: 12.00 Pack years: 24.00 Types: E-cigarettes, Cigarettes Start date: 1981 Quit date: 03/19/2008 Years since quittin.8 ??? Smokeless tobacco: Never Used Substance Use [...] Heart disease; ??? Anesthesia problems Neg Hx Review of Systems: As per HPI, poor historian to me. Objective Vitals: 24hr Min/Max: Temp Min: 36.1 ??C (97 ??F) Max: 37.1 ??C (98.8 ??F) Pulse Min: 67 Max: 128 BP Min: 123/94 Max: 166/88 Resp Min: 17 Max: 24 SpO2 Min: 97 % Max: 100 % Most Recent: Vitals: 01/14/21 0735 01/14/21 0820 01/14/21 1136 01/14/21 1246 BP: 148/94 127/83 147/72 BP Location: Right arm Right arm Patient Position: Lying Lying Pulse: 89 80 67 80 Resp: 21 18 17 Temp: 37.1 ??C (98.8 ??F) 36.8 ??C (98.2 ??F) TempSrc: Oral Oral SpO2: 99% 100% 97% Weight: 45 kg (99 lb 3.2 oz) Height: Intake/Output Summary (Last 24 hours) at 01/14/2021 1421 Last data filed at 01/14/2021 1400 Gross per 24 hour Intake 1220 ml Output -- Net 1220 ml Physical Exam: Frail woman HEENT wnl Neck supple Lungs coarse COR RRR ABD soft, bs pos Ext no edema Skin turgor decreased Dialysis Access Exam: NA Lab/Radiology/Diagnostic Review: Recent Results (from the past 24 hour(s)) Comprehensive metabolic panel Collection Time: 01/13/21 9:46 PM Result Value Ref Range Sodium 134 (L) 135 - 145 mmol/L Potassium, pl 2.5 (Critical) 3.3 - 4.9 mmol/L Chloride 93 (L) 97 - 110 mmol/L CO2 21 (L) 22 - 32 mmol/L Anion gap 20 (H) 2 - 15 mmol/L BUN 28 (H) 8 - 25 mg/dL Creatinine 1.88 (H) 0.60 - 1.10 mg/dL Glucose 132 70 - 199 mg/dL Calcium 10.2 8.5 - 10.3 mg/dL Bilirubin, total 0.4 0.1 - 1.2 mg/dL Protein, pl 8.3 6.5 - 8.5 g/dL Albumin 4.5 3.5 - 5.0 g/dL Alk phos 151 (H) 40 - 130 Units/L ALT 48 (H) 7 - 45 Units/L AST 73 (H) 10 - 45 Units/L Lipase Collection Time: 01/13/21 9:46 PM Result Value Ref Range Lipase 26 10 - 99 Units/L Troponin T high-sensitivity series (baseline, 2hr, 4hr, 6hr) Collection Time: 01/13/21 9:46 PM Result Value Ref Range Trop T hs 39 (H) <=14 ng/L CBC with auto differential Collection Time: 01/13/21 9:46 PM Result Value Ref Range WBC 22.9 (H) 3.8 - 9.9 K/cumm Hgb 13.2 11.9 - 15.5 g/dL Hct 38.5 35.6 - 45.5 % Plt 388 150 - 400 K/cumm MPV 10.5 9.1 - 12.3 fL RBC 4.34 3.90 - 5.20 M/cumm MCV 88.7 81.3 - 96.4 fL MCH 30.4 27.1 - 33.3 pg MCHC 34.3 32.3 - 35.7 g/dL RDW CV 12.4 11.1 - 14.9 % RDW SD 40.2 35.7 - 48.1 fL NRBC abs 0.00 0.00 - 0.01 K/cumm Comprehensive metabolic panel Collection Time: 01/13/21 9:46 PM Result Value Ref Range Sodium 136 135 - 145 mmol/L Potassium, pl 2.6 (Critical) 3.3 - 4.9 mmol/L Chloride 95 (L) 97 - 110 mmol/L CO2 21 (L) 22 - 32 mmol/L Anion gap 20 (H) 2 - 15 mmol/L BUN 28 (H) 8 - 25 mg/dL Creatinine 1.94 (H) 0.60 - 1.10 mg/dL Glucose 130 70 - 199 mg/dL Calcium 10.1 8.5 - 10.3 mg/dL Bilirubin, total 0.4 0.1 - 1.2 mg/dL Protein, pl 8.4 6.5 - 8.5 g/dL Albumin 4.5 3.5 - 5.0 g/dL Alk phos 150 (H) 40 - 130 Units/L ALT 48 (H) 7 - 45 Units/L AST 73 (H) 10 - 45 Units/L Ethanol Collection Time: 01/13/21 9:46 PM Result Value Ref Range Ethanol <10 <=10 mg/dL TSH Collection Time: 01/13/21 9:46 PM Result Value Ref Range Thyroid Stimulating Hormone 0.64 0.30 - 4.20 mcIUnit/mL Salicylate level Collection Time: 01/13/21 9:46 PM Result Value Ref Range Salicylate <0.3 mg/dL Acetaminophen level Collection Time: 01/13/21 9:46 PM Result Value Ref Range Acetaminophen 20.8 (H) 10.0 - 20.0 mcg/mL Differential, auto Collection Time: 01/13/21 9:46 PM Result Value Ref Range Neutrophil abs 20.0 (H) 1.7 - 6.5 K/cumm Imm gran abs 0.1 0.0 - 0.1 K/cumm Lymphocyte abs 1.0 0.8 - 3.3 K/cumm Monocyte abs 1.8 (H) 0.2 - 0.8 K/cumm Eosinophil abs 0.0 0.0 - 0.5 K/cumm Basophil abs 0.0 0.0 - 0.1 K/cumm Neutrophil pct 87.2 % Imm gran pct 0.6 % Lymphocyte pct 4.2 % Monocyte pct 7.7 % Eosinophil pct 0.1 % Basophil pct 0.2 % eGFR Collection Time: 01/13/21 9:46 PM Result Value Ref Range GFR 30 mL/min/1.73 m2 eGFR Collection Time: 01/13/21 9:46 PM Result Value Ref Range GFR 28 mL/min/1.73 m2 Troponin T high-sensitivity 2-hour Collection Time: 01/14/21 12:39 AM Result Value Ref Range Trop T hs 27 (H) <=14 ng/L Trop T hs delta -12 (Critical) ng/L Trop T hs interp Significant (Critical) Acetaminophen level Collection Time: 01/14/21 12:39 AM Result Value Ref Range Acetaminophen 10.5 10.0 - 20.0 mcg/mL Troponin T high-sensitivity 4-hour Collection Time: 01/14/21 2:15 AM Result Value Ref Range Trop T hs 25 (H) <=14 ng/L Trop T hs delta -14 (Critical) ng/L Trop T hs interp Significant (Critical) Troponin T high-sensitivity 6-hour Collection Time: 01/14/21 4:17 AM Result Value Ref Range Trop T hs 23 (H) <=14 ng/L Trop T hs delta -16 (Critical) ng/L Trop T hs interp Significant (Critical) Lactate Collection Time: 01/14/21 4:17 AM Result Value Ref Range Lactate 1.2 0.7 - 2.0 mmol/L Blood gas, venous Collection Time: 01/14/21 5:35 AM Result Value Ref Range pH, Venous 7.39 7.32 - 7.43 PCO2, Venous 39 (L) 40 - 50 mmHg PO2, Venous <30 mmHg HCO3 Venous, Calculated 22 20 - 30 mmol/L BE, venous -1 mmol/L CBC with auto differential Collection Time: 01/14/21 6:44 AM Result Value Ref Range WBC 18.6 (H) 3.8 - 9.9 K/cumm Hgb 11.1 (L) 11.9 - 15.5 g/dL Hct 33.0 (L) 35.6 - 45.5 % Plt 389 150 - 400 K/cumm MPV 10.1 9.1 - 12.3 fL RBC 3.67 (L) 3.90 - 5.20 M/cumm MCV 89.9 81.3 - 96.4 fL MCH 30.2 27.1 - 33.3 pg MCHC 33.6 32.3 - 35.7 g/dL RDW CV 12.4 11.1 - 14.9 % RDW SD 40.8 35.7 - 48.1 fL NRBC abs 0.00 0.00 - 0.01 K/cumm Comprehensive metabolic panel Collection Time: 01/14/21 6:44 AM Result Value Ref Range Sodium 138 135 - 145 mmol/L Potassium, pl 3.7 3.3 - 4.9 mmol/L Chloride 104 97 - 110 mmol/L CO2 23 22 - 32 mmol/L Anion gap 11 2 - 15 mmol/L BUN 26 (H) 8 - 25 mg/dL Creatinine 1.39 (H) 0.60 - 1.10 mg/dL Glucose 114 70 - 199 mg/dL Calcium 8.9 8.5 - 10.3 mg/dL Bilirubin, total 0.3 0.1 - 1.2 mg/dL Protein, pl 7.1 6.5 - 8.5 g/dL Albumin 4.0 3.5 - 5.0 g/dL Alk phos 132 (H) 40 - 130 Units/L ALT 39 7 - 45 Units/L AST 60 (H) 10 - 45 Units/L Magnesium Collection Time: 01/14/21 6:44 AM Result Value Ref Range Magnesium 2.2 1.4 - 2.5 mg/dL Protime-INR Collection Time: 01/14/21 6:44 AM Result Value Ref Range PT 12.7 9.5 - 13.6 sec INR 1.1 0.9 - 1.2 aPTT Collection Time: 01/14/21 6:44 AM Result Value Ref Range aPTT 25 (L) 27 - 37 sec Acetaminophen level Collection Time: 01/14/21 6:44 AM Result Value Ref Range Acetaminophen <5.0 (L) 10.0 - 20.0 mcg/mL Differential, auto Collection Time: 01/14/21 6:44 AM Result Value Ref Range Neutrophil abs 16.4 (H) 1.7 - 6.5 K/cumm Imm gran abs 0.1 0.0 - 0.1 K/cumm Lymphocyte abs 0.8 0.8 - 3.3 K/cumm Monocyte abs 1.4 (H) 0.2 - 0.8 K/cumm Eosinophil abs 0.0 0.0 - 0.5 K/cumm Basophil abs 0.0 0.0 - 0.1 K/cumm Neutrophil pct 87.8 % Imm gran pct 0.5 % Lymphocyte pct 4.2 % Monocyte pct 7.3 % Eosinophil pct 0.1 % Basophil pct 0.1 % eGFR Collection Time: 01/14/21 6:44 AM Result Value Ref Range GFR 43 mL/min/1.73 m2 Urinalysis reflex to microscopic and culture Urine Collection Time: 01/14/21 6:59 AM Specimen: Urine Result Value Ref Range Color, ur Yellow Yellow Clarity, ur Cloudy (A) Clear Specific gravity, ur 1.019 1.010 - 1.025 pH, urine 5.0 Protein, ur ql 1+ (A) Negative Glucose, ur ql Negative Negative Ketones, ur Negative Negative Bilirubin, ur Negative Negative Blood, ur 1+ (A) Negative Urobilinogen, ur <2.0 <2.0 mg/dL Nitrite, ur Negative Negative Leukocyte esterase, ur 4+ (A) Negative UA reflex comment Reflex to microscopic UA will be performed. Urinalysis, microscopic only Collection Time: 01/14/21 6:59 AM Result Value Ref Range WBC, ur 11-20 (A) 0 - 5 /HPF RBC, ur 6-10 (A) 0 - 2 /HPF Epithelial cells, squamous, ur 1-5 0 - 5 /HPF Bacteria, ur Trace (A) Mucous, ur Present (A) Hyaline casts, ur 21-50 (A) 0 - 10 /LPF Culture Reflex Comment Reflex to urine culture will be performed. Recent Labs Lab Units 01/14/21 0659 CLARITY U Cloudy* COLOR U Yellow KETONES UR Negative NITRITE UR Negative SPEC GRAV U 1.019 UROBILINOGEN UR mg/dL <2.0 WBC UR QT /HPF 11-20* ECG 12 lead Result Date: 01/14/2021 Narrative: Vent Rate: 92 bpm RR Interval: 648 msec RI Interval: 133 msec QRS Duration: 86 msec QT Interval: 392 msec QTC Interval: 442 msec P-R-T [place]: 75 - 83 - 76 degrees [address]M MINIM[address] DEPRESSION BORDERLINE ECG Electronically Signed By: Dr. Con Hughes [facility] CT Abdomen Pelvis WO Contrast Result Date: 01/14/2021 Narrative: EXAMINATION: CT ABDOMEN PELVIS WO CONTRAST TECHNIQUE: Computed tomographic examination of the abdomen and pelvis is performed without intravenous contrast HISTORY: Right-sided abdominal pain evaluate kidney stone COMPARISON:02/06/2020 FINDINGS: Visualized lung bases are normal. The liver, spleen, pancreas, adrenal glands are normal. There is nonobstructing bilateral renal calculi. However, there are no ureteral calculi there is no hydronephrosis. No bladder calculi seen. There is no obstruction, pneumoperitoneum or free fluid. Diffuse diverticulosis present there is no acute diverticulitis. There is been a prior partial colonic resection. Moderate amount of stool is noted within the rectosigmoid colon compatible with constipation or obstipation. Diffuse atherosclerotic disease of the aorta seen. Osseous windows demonstrate multilevel degenerative disc disease. Multiple injection granulomas seen in the subcutaneous tissues. Impression: 1. Findings compatible with constipation or obstipation. 2 nonobstructing renal calculi. Electronically signed by: Mehdi Meyers M.D., MPH XR Chest Pa Lateral 2 Vw Result Date: 01/14/2021 Narrative: EXAMINATION: XR CHEST PA LATERAL 2 VIEWS HISTORY: The patient is a 55-year-old female who presents with chest pain. TECHNIQUE: PA and lateral view of the chest. FINDINGS: There is hyperinflation of the lungs. No focal infiltrate. Cardiovascular structures unremarkable. Impression: Hyperinflation of the lungs. Electronically signed by: Rakesh Palacio M.D. Assessment/Plan Principal Problem: Chest pressure Active Problems: History of DVT (deep vein thrombosis) Elevated troponin Hepatitis Tylenol overdose JHOANA (acute kidney injury) (CMS/HCC) NSAID overdose Bandemia High anion gap metabolic acidosis Hypokalemia Right lower quadrant abdominal pain Suicidal ideation Frailty Severe protein-calorie malnutrition (CMS/HCC) 1. JHOANA from volume contraction and NSAID use. 2. Possible underling CKD with hematuria and proteinuria. 3. Hx of nephrolothiasis per patient. 4. NAGMA. 5. Leukocytosis. 6. Abd pain. 7. Reported suicidal ideation. 8. Severe hypokalemia. 9. Anemia. PLAN 1. Start cautious IVF. 2. Replace K. 3. Basic JHOANA manning, r/o vasculitis, doubt! 4. Renal US. 5. IV ABX. 6. Daily labs. Thanks for consult! Jorje Osorio MD 2:21 PM 01/14/2021 * Jorje Osorio MD - 01/14/2021 12:39 PM CDT Patient seen and examined. Orders placed. Full note to follow. Thank you for the consult. I can be reached at [phone] with any concerns. Jorje Osorio MD * Ragini Schneider RD - 01/14/2021 11:44 AM CDTAssociated Order(s): IP CONSULT TO NUTRITION SERVICES Nutrition Assessment Pt meets criteria for severe malnutrition due to decreased energy intake and weight loss, present on admission, reference ASPEN guidelines. RD plan: starting supplements tid. ASPEN/AND Malnutrition Screening ASPEN/AND Malnutrition Screening: Chronic illness or injury severe Chronic Illness/Injury Severe Energy Intake: < 75% energy intake compared to estimated energy needs > (or equal to) 1 month Weight Loss: > 10% in 6 months Patient Meets Criteria for Severe Malnutrition: Yes Reason for Assessment: Initial Nutrition Assessment, Consult/Referral and low BMI Consult for malnutrition assessment Encounter Date: 01/14/21 11:45 AM Nutrition Assessment and Plan: Patient is a 55 y.o. female. Admit Dx: ELEVATED TROPONIN. Admitted on 01/13/2021, current LOS is 0 days. Pt admit with chest pressure, abd pain, N&V, and constipation. CT pending, but preliminary read to ED of nonobstructing stones and moderate constipation. Per chart review, Pt has a complex GI Hx, from office visit note on 07/13/20 has a complex medical history the started with surgery over 27 years ago endometriosis. Most recently she had multiple surgeries at the [facility]. Those surgeries involved multiple bowel resections and at some point and ostomy and ostomy reversal. She also had a mesh placed at some point. Pt was w other healthcare provider at time of visit, unable to interview or physically assess. Per chart review, Pt has lost weight in the past several months. 16% loss in ~7 months is significant for timeframe. Weight loss likely due to poor intakes w GI issues. Pt meets critieria for severe malnutrition, starting supplements and will follow tolerance. Will continue to follow plan of care and diagnoses and monitor nutrition status. Wt Readings from Last 10 Encounters: 01/14/21 45 kg (99 lb 3.2 oz); standing scale 07/13/20 54.3 kg (119 lb 9.6 oz) 06/09/20 53.5 kg (118 lb) 06/08/20 53.5 kg (118 lb) 06/06/20 54.2 kg (119 lb 8 oz) 05/19/20 53.5 kg (118 lb) 05/11/20 52.6 kg (116 lb) 04/22/20 53.5 kg (118 lb) 04/19/20 54 kg (119 lb 0.8 oz) 04/06/20 54.4 kg (120 lb) Current diet order: Adult Diet GI Diets; Suicidal; Send on Disposables Pt intake is inadequate. PO intakes: no intakes yet, diet just advanced Nutrition Diagnosis 1: Malnutrition - Severe Related to: Chronic illness/injury Evidenced by: Weight loss, Inadequate energy intake, Other (comment) (altered GI function) ?? Interventions: Medical food supplement (ordering ensure enlive tid) ?? Monitoring and Evaluation: Plan of care, PO intake, Discharge plans, Labs, I/O, Weight changes, GI output, Supplement tolerance ?? Goals: Adequate nutrition to meet estimated needs by next assessment, Oral intake to meet 75% estimated nutritional needs by next assessment, Tolerance of medical food supplement by next assessment Estimated needs: ?? Total Kcal/kg Estimated Needs : 1439.9 based on Kcal/k. Type of Weight Used for Estimated Kcals: Current ?? Total Protein Estimated Needs (gm): 58.5 Protein Needs Based on g/k.3 Type of Weight Used for Estimated Protein : Current. ?? Total Fluid Estimated Needs: 1439.9 Fluid Needs Based on : 1 ml/kcal. Objective Anthropometrics Weight: 45 kg (99 lb 3.2 oz) Admission Weight : 45 kg Weight Change: -9.30 kg (-20.51 lbs) IBW/kg (Calculated) : 56.7 kg Height: 165.1 cm (5' 5 ) Weight in (lb) to have BMI = 25: 149.9 BMI (Calculated): 16.5 BMI Classification: BMI <18.5 Underweight 3 Day I/O Summary 01/12 1900 - 01/14 0659 In: 1000 Out: - Temp: 36.8 ??C (98.2 ??F) Past Medical History: Diagnosis Date ??? Anemia ??? Anxiety disorder ??? Colon obstruction (CMS/HCC) ??? DVT (deep venous thrombosis) (CMS/HCC) 11/2018 ??? Endometriosis Endometriosis-21 times ??? Hyperlipidemia ??? PONV (postoperative nausea and vomiting) IV medications help ??? Trigeminal neuralgia Medications and Lab Review: Scheduled Meds: acetylcysteine, 150 mg/kg, intravenous, Once [START ON 01/15/2021] aspirin, 81 mg, oral, Daily clonazePAM, 1 mg, oral, BID cyclobenzaprine, 10 mg, oral, BID dicyclomine, 10 mg, oral, TID enoxaparin, 1 mg/kg, subcutaneous, Daily-2100 folic acid, 1 mg, oral, Daily with dinner metoprolol tartrate, 25 mg, oral, BID polyethylene glycol, 17 g, oral, Daily with lunch senna-docusate, 2 tablet, oral, BID sodium chloride 0.9%, 0.5-20 mL, intra-catheter, Q8H ELIU Continuous Infusions: acetylcysteine (ACETADOTE) infusion 30 MG/ML, 12.5 mg/kg/hr dextrose 5% and sodium chloride 0.9%, 100 mL/hr, Last Rate: Stopped (01/14/21 1054) sodium chloride 0.9%, 100 mL/hr, Last Rate: 100 mL/hr (01/14/21 1105) Sodium Date Value Ref Range Status 01/14/2021 138 135 - 145 mmol/L Final Potassium, pl Date Value Ref Range Status 01/14/2021 3.7 3.3 - 4.9 mmol/L Final BUN Date Value Ref Range Status 01/14/2021 26 (H) 8 - 25 mg/dL Final Creatinine Date Value Ref Range Status 01/14/2021 1.39 (H) 0.60 - 1.10 mg/dL Final Albumin Date Value Ref Range Status 01/14/2021 4.0 3.5 - 5.0 g/dL Final Magnesium Date Value Ref Range Status 01/14/2021 2.2 1.4 - 2.5 mg/dL Final Calcium Date Value Ref Range Status 01/14/2021 8.9 8.5 - 10.3 mg/dL Final No results found for: HGBA1C Lab Results Component Value Date GLUCOSE 114 01/14/2021 GLUCOSE 132 01/13/2021 GLUCOSE 130 01/13/2021 Nursing Assessment: Chuck Scale Score: 19 Diet Instructions No diet restrictions recommended at time of discharge. Please call the Dietitian office with any diet related concerns . Nutrition Follow-Up : 01/17/[address],LD documented in this encounter Nursing Notes * Sarah Marie, KAT - 01/26/2021 5:35 AM CDT Pt going to [facility]. Report called and given to receiving Nurse Abigail. Informed by EMS that they would not have an available truck until 6am and would pick the patient up and transfer her once available. Informed Lior at [facility] updates on transfer and that someone would call them once EMS is here to take patient. CN aware of process. IV removed from pt. Will continue Care. * Shireen Branch RN - 01/23/2021 3:01 AM CDT Pt is complaining of pain in her chest and describes feels like a Lon horse in her chest. Rates it a 10/10. Also says her right arm feels tingly. Gave her prn oxy per her request. She said thispain is similar to what she has experienced in the past. EKG says SR nonspecific t-wave abnormality rate 83bpm. [employer], Sanjana Alvarado notified. * Teresa Hernandez RN - 01/17/2021 6:14 PM CDT The sitter yelled, call Security . The pt. removed her electrolog operator and agressively moved towards the sitter who was in the room. PIT Crew called at this time. KAT Nieto entered the room and thepatient grabbed and hugged Emilia and sobbed. Emilia called Amy in Behavioral Health; she stated that she will reach out to Dr. Albert to verify if he will be seeing this evening or not. Amy stated she would call the 8th floor back. * Chichi Lawton RN - 01/17/2021 3:30 PM CDT here to see patient. Staff had in length discussion r/t events prior to admission. Intake called to see if t5hey want to speak to . made aware that if she gets upset or angry that he would have to leave. * Chichi Lawton RN - 01/14/2021 8:48 AM CDT Pt states she had fight with . No suicidal thoughts. documented in this encounter ED Notes * Ragini Dhaliwal RN - 01/23/2021 5:42 AM CDT Attempt iv x2. Pt unable to tolerate being stuck by a needle. STEVEN alvarado notified * Oracio Jeffries NP - 01/14/2021 3:21 AM CDT HPI Chief Complaint Patient presents with ??? Abdominal Pain HPI ?? 55-year-old female patient, presents the ED complaining of right lower quadrant abdominal pain. Patient has a history of anemia, anxiety,obstruction, endometriosis, and trigeminal neuralgia. Patient reports that she has had lithotripsy and kidney stones in the past. Complaining of right lower quadrant abdominal pain that radiates to the right lower back x1 0.5 weeks. Patient states that she had ???left over?? [place] from a prior surgery that she began taking, she started having right lower quadrant pain. Patient states the last time she took [place] was 4 days ago, and has not taken any additional opioids since then. Patient states she has had multiple surgeries due to bowel obstructions, andmultiple infections. Reports that she had a fever earlier in the week, with a subjective T max of 101.0. Patient also is presenting with the ER with a signed affadavit by her who states she was suicidal on mother's Day weekend, and has become delusional and has had hallucinations since then. Affadavit per reports she is having auditory and visual visual hallucinations, states thatshe cannot hold a conversation, without sounded confused. is concerned that she is a dangerto herself and possibly others. Patient states that she is going through a divorce with her , and he thought she was suicidal at mother's Day, when she took [place]. Patient denies current suicidal or homicidal ideation. Patient History: Patient Active Problem List Diagnosis Date Noted ??? Elevated troponin 01/14/2021 ??? Chest pressure 01/14/2021 ??? Hepatitis 01/14/2021 ??? Tylenol overdose 01/14/2021 ??? JHOANA (acute kidney injury) (CMS/HCC) 01/14/2021 ??? NSAID overdose 01/14/2021 ??? Bandemia 01/14/2021 ??? High anion gap metabolic acidosis 01/14/2021 ??? Hypokalemia 01/14/2021 ??? Right lower quadrant abdominal pain 01/14/2021 ??? Suicidal ideation 01/14/2021 ??? Frailty 01/14/2021 ??? Severe protein-calorie malnutrition (CMS/HCC) 01/14/2021 ??? 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 History of DVT (deep vein thrombosis) 04/23/2020 ??? Abdominal pain 04/11/2020 ??? Endometriosis 12/26/2013 ??? Multiple-type hyperlipidemia 12/26/2013 ??? Anxiety state 12/26/2013 ??? Acute cerebrovascular insufficiency 12/26/2013 Past Medical History: Diagnosis Date ??? Anemia ??? Anxiety disorder ??? Colon obstruction (CMS/HCC) ??? DVT (deep venous thrombosis) (CMS/HCC) 11/2018 ??? Endometriosis Endometriosis-21 times ??? Hyperlipidemia ??? PONV (postoperative nausea and vomiting) IV medications help ??? Trigeminal neuralgia Past Surgical History: Procedure Laterality Date ??? ABDOMINAL SURGERY surgery x 5 for bowel obstruction and subsequent infection ??? APPENDECTOMY 2006 Appendectomy ??? BOWEL RESECTION colon blockage: partial bowel resection ??? BREAST BIOPSY 2000 Breast biopsy ??? HYSTERECTOMY 1995 Hysterectomy ??? LAPAROSCOPIC ENDOMETRIOSIS FULGURATION Endometriosis-21 times: lap/laser Family History Problem Relation Age of Onset [...] date: 1981 Quit date: 03/19/2008 Years since quittin.8 ??? Smokeless tobacco: Never Used Vaping Use [...] pain and palpitations. Gastrointestinal: Positive for abdominal pain. Negative for vomiting. Genitourinary: Negative for dysuria and hematuria. Musculoskeletal: Positive for back pain. Negative for arthralgias. Skin: Negative for color change and rash. Neurological: Negative for seizures and syncope. All other systems reviewed and are negative. Physical Exam ED Triage Vitals Temp Pulse Resp BP SpO2 01/13/21193001/13/21193001/13/21193001/13/21193001/13/211934 36.1 ??C (97 ??F) (!) 128 20 123/94 100 % Temp src Heart Rate Source Patient Position BP Location FiO2 (%) 01/13/21193001/13/211930 -- 01/13/211930 -- Temporal Pulse Oximetry Left arm Physical Exam Vitals and nursing note reviewed. Constitutional: General: She is in acute distress. Appearance: She is well-developed. She is not ill-appearing, toxic-appearing or diaphoretic. HENT: Head: Normocephalic and atraumatic. Nose: Nose normal. Mouth/Throat: Mouth: Mucous membranes are moist. Eyes: Extraocular Movements: Extraocular movements intact. Conjunctiva/sclera: Conjunctivae normal. Pupils: Pupils are equal, round, and reactive to light. Cardiovascular: Rate and Rhythm: Normal rate and regular rhythm. Pulses: Normal pulses. Heart sounds: Normal heart sounds. No murmur heard. Pulmonary: Effort: Pulmonary effort is normal. No respiratory distress. Breath sounds: Normal breath sounds. No stridor. No wheezing, rhonchi or rales. Chest: Chest wall: No tenderness. Abdominal: General: Bowel sounds are normal. There is no distension. Palpations: Abdomen is soft. There is no mass. Tenderness: There is abdominal tenderness in the right lower quadrant. There is right CVA tenderness. There is no left CVA tenderness, guarding or rebound. Hernia: No hernia is present. Musculoskeletal: General: Normal range of motion. Cervical back: Normal range of motion and neck supple. Skin: General: Skin is warm and dry. Capillary Refill: Capillary refill takes less than 2 seconds. Neurological: General: No focal deficit present. Mental Status: She is alert and oriented to person, place, and time. Psychiatric: Mood and Affect: Mood normal. Behavior: Behavior normal. Thought Content: Thought content normal. Judgment: Judgment normal. MDM Medical Decision Making Differential Diagnosis or Management Options: In my medical decision making the following differential diagnoses were considered before arriving at final diagnosis and many were either ruled out or appeared unlikely ACS / AMI, Appendicitis, Bowel Obstruction, Constipation, Diverticulitis, Hepatitis / Pancreatitis,Irritable Bowel Syndrome, Pneumonia, / Ectopic / Ovarian, Renal Colic /Ureteral Stone, AAA, GB, PID, PUD, UTI Drug Overdose: Intentional / Unintentional, Depression, Cocaine / Narcotic Overdose, ASA / APAP Overdose, Anxiety, Acute Psychosis, Alcohol Abuse / Intoxication, Suicide Attempt / Gesture, Tricyclic Overdose, Toxic Exposure, Caustic Ingestion, Inhalation Exposure, Topical Exposure ED Course as of Jan 14 711 Time: 01/13 2225 Comment: Discussed patient with Dr. Edwards, who recommends giving patient a 2nd dose of potassium 40 mEq p.o. and checking a Tylenol level 4 hours, after the 1st one was obtained. By: Oracio Jeffries NP Time: 01/13 2225 Comment: Tylenol level to be drawn at 1:45 a.m. By: Oracio Jeffries NP Time: 01/13 4142 Comment: Voice recognition software [employer] was used to dictate and transcribe this document. Scale And Skip Car Operator variances may occur. Despite proofreading, typographical errors may occur. By: Oracio Jeffries NP Time: 01/14 206 Comment: Call request placed to Cardiology By: Oracio Jeffries NP Time: 01/14 251 Comment: Consulted with cardiology [employer] Ivonne Maldonado who recommends holding Lopressor, and Lovenox 1mg/kg previously suggested by Dr. Landers. Recommend using DVT prophylaxis Lovenox dosing, and proceeding with baby aspirin x4. By: Oracio Jeffries NP Time: 01/14 258 Comment: Call request place to hospitalist. By: Oracio Jeffries NP Time: 01/15 324 Comment: Dr. Padilla accepts patient for inpatient admission, recommends adding a venous blood gas,and lactate to blood work. By: Oracio Jeffries NP Time: 01/15 328 Comment: Nursing notified that urine is pending and still needs to be collected. By: Oracio Jeffries NP Final diagnoses: Elevated troponin Abdominal pain Hypokalemia Suicidal ideation Oracio Jeffries NP 01/14/21 0711 Cosigned by Marcelino Landers MD at 01/14/2021 8:03 AM CDT * Earnest Romero RN - 01/13/2021 7:31 PM CDT Pt presents to the ED complaining of chronic RLQ Abdominal pain. documented in this encounter Miscellaneous Notes * Plan of Care - Whitney Levine RN - 01/26/2021 10:56 AM CDT Goals: Clinical Goals for the Shift: VSS, comfort, safety, 1:1 sitter Summary: Pt very manipulating this morning. Attempting to tell staff that psychiatry has deemed herfit to discharge home, although no notes from Dr. Albret stating as such. Discharge instructions reviewed with patient, verbalized understanding. IV access removed, pt tolerated well. Pt discharged instable condition with belongings to [facility] per ambulance in care of ambulance staff. * Plan of Care - Yolande Jackson RN - 01/25/2021 6:55 PM CDT Goals: Clinical Goals for the Shift: stable vital signs, no chest pain, continue psych sitter, comfort, safety Summary: * Plan of Care - Kimberley Pascual LCSW - 01/25/2021 9:57 AM CDT Chart review completed. * Plan of Care - Shantanu Jacobsen RN - 01/25/2021 12:36 AM CDT Goals: Clinical Goals for the Shift: stable vital signs, no chest pain, continue psych sitter, comfort, safety Problem: Health Behavior: Goal: Understanding of discharge needs will improve Outcome: Progressing Problem: Lack of Knowledge: Goal: Ability to state ways to decrease the risk of falls will improve Outcome: Progressing Problem: Safety: Goal: Will remain free from falls Outcome: Progressing Goal: Will remain free from injury from falls Outcome: Progressing Goal: Will remain free from falls and injury in home environment Outcome: Progressing Problem: Lack of Knowledge: Goal: Ability to make informed decisions regarding treatment will improve Outcome: Progressing Problem: Coping: Goal: Ability to cope will improve Outcome: Progressing Problem: Health Behavior: Goal: Identification of resources available to assist in meeting health care needs will improve Outcome: Progressing Goal: Decreased thoughts of self harm Outcome: Progressing Problem: Medication: Goal: Compliance with prescribed medication regimen will improve Outcome: Progressing Problem: Safety: Goal: Ability to remain free from injury will improve Outcome: Progressing Goal: Verbalizations of safety and security will increase Outcome: Progressing Problem: Self-Concept: Goal: Ability to disclose and discuss suicidal ideas will improve Outcome: Progressing Goal: Ability to verbalize positive feelings about self will improve Outcome: Progressing * Plan of Care - Dilma Blount RN - 01/24/2021 2:47 PM CDT CM chart review. Patient was swabbed for MRSA on 01/18/21 with a positive result. Because of MRSA patient needs a psych isolation bed. Patient has a new affidavit in place [facility]. It can be found in the patients paper chart. [facility] is looking for placement. CM will continue to follow. * Plan of Care - Rola Daigle RN - 01/24/2021 12:37 PM CDT Problem: Health Behavior: Goal: Understanding of discharge needs will improve Outcome: Progressing Problem: Lack of Knowledge: Goal: Ability to state ways to decrease the risk of falls will improve Outcome: Progressing Problem: Safety: Goal: Will remain free from falls Outcome: Progressing Goal: Will remain free from injury from falls Outcome: Progressing Goal: Will remain free from falls and injury in home environment Outcome: Progressing Problem: Lack of Knowledge: Goal: Ability to make informed decisions regarding treatment will improve Outcome: Progressing Problem: Coping: Goal: Ability to cope will improve Outcome: Progressing Problem: Health Behavior: Goal: Identification of resources available to assist in meeting health care needs will improve Outcome: Progressing Goal: Decreased thoughts of self harm Outcome: Progressing Problem: Medication: Goal: Compliance with prescribed medication regimen will improve Outcome: Progressing Problem: Safety: Goal: Ability to remain free from injury will improve Outcome: Progressing Goal: Verbalizations of safety and security will increase Outcome: Progressing Problem: Self-Concept: Goal: Ability to disclose and discuss suicidal ideas will improve Outcome: Progressing Goal: Ability to verbalize positive feelings about self will improve Outcome: Progressing Goals: Clinical Goals for the Shift: stable vital signs, no chest pain, continue psych sitter, comfort, safety Summary: Received pt. In bed resting alert and oriented x4, able to make needs known, voices no complaints of pain or discomforts, no signs or symptoms of acute distress, up and ambulatory ad vicky, sitter remains at bedside, plan to discharge to psych bed when one becomes available, will continue with current plan of care, progressing towards goals. Marvin Daigle RN * Plan of Care - Jean Bhardwaj RN - 01/24/2021 6:46 AM CDT Goals: Clinical Goals for the Shift: stable vital signs, no chest pain, continue psych sitter, comfort, safety Summary: Patient voiced desire to go home but was educated on why she was unable to do so. Patient agreeable to education but still hopeful that she will be discharged home today. Slept most hours ofthe night. No events during shift. Problem: Health Behavior: Goal: Understanding of discharge needs will improve Outcome: Progressing Problem: Lack of Knowledge: Goal: Ability to state ways to decrease the risk of falls will improve Outcome: Progressing Problem: Safety: Goal: Will remain free from falls Outcome: Progressing Goal: Will remain free from injury from falls Outcome: Progressing Goal: Will remain free from falls and injury in home environment Outcome: Progressing Problem: Lack of Knowledge: Goal: Ability to make informed decisions regarding treatment will improve Outcome: Progressing Problem: Coping: Goal: Ability to cope will improve Outcome: Progressing Problem: Health Behavior: Goal: Identification of resources available to assist in meeting health care needs will improve Outcome: Progressing Goal: Decreased thoughts of self harm Outcome: Progressing Problem: Medication: Goal: Compliance with prescribed medication regimen will improve Outcome: Progressing Problem: Safety: Goal: Ability to remain free from injury will improve Outcome: Progressing Goal: Verbalizations of safety and security will increase Outcome: Progressing Problem: Self-Concept: Goal: Ability to disclose and discuss suicidal ideas will improve Outcome: Progressing Goal: Ability to verbalize positive feelings about self will improve Outcome: Progressing * Plan of Care - Jenny Ramirez LPN - 01/23/2021 6:19 PM CDT Goals: Clinical Goals for the Shift: stable vital signs, no chest pain, continue psych sitter, comfort, safety Summary: Patient resting in bed with complaints of abdominal pain, PRN pain medication given. Vitalsigns stable. No chest pain for this shift. Psych sitter still in place, awaiting inpatient psych bed in the area. Patient's tele discontinued, transfer to 5th floor. Maintained comfort and safety. * Plan of Care - Ragini Dhaliwal RN - 01/23/2021 5:05 AM CDT Problem: Health Behavior: Goal: Understanding of discharge needs will improve Outcome: Progressing Problem: Lack of Knowledge: Goal: Ability to state ways to decrease the risk of falls will improve Outcome: Progressing Problem: Safety: Goal: Will remain free from falls Outcome: Progressing Goal: Will remain free from injury from falls Outcome: Progressing Goal: Will remain free from falls and injury in home environment Outcome: Progressing Problem: Lack of Knowledge: Goal: Ability to make informed decisions regarding treatment will improve Outcome: Progressing Problem: Coping: Goal: Ability to cope will improve Outcome: Progressing Problem: Health Behavior: Goal: Identification of resources available to assist in meeting health care needs will improve Outcome: Progressing Goal: Decreased thoughts of self harm Outcome: Progressing Problem: Medication: Goal: Compliance with prescribed medication regimen will improve Outcome: Progressing Problem: Safety: Goal: Ability to remain free from injury will improve Outcome: Progressing Goal: Verbalizations of safety and security will increase Outcome: Progressing Problem: Self-Concept: Goal: Ability to disclose and discuss suicidal ideas will improve Outcome: Progressing Goal: Ability to verbalize positive feelings about self will improve Outcome: Progressing Goals: Clinical Goals for the Shift: continue 1-1 observation, SAFETY, monitor vital signs, clarence Summary: * Plan of Care - Milo Hurtado RN - 01/22/2021 2:50 PM CDT Problem: Health Behavior: Goal: Understanding of discharge needs will improve Outcome: Progressing Problem: Safety: Goal: Will remain free from falls Outcome: Progressing Goal: Will remain free from injury from falls Outcome: Progressing Goal: Will remain free from falls and injury in home environment Outcome: Progressing Problem: Coping: Goal: Ability to cope will improve Outcome: Progressing Problem: Health Behavior: Goal: Identification of resources available to assist in meeting health care needs will improve Outcome: Progressing Goal: Decreased thoughts of self harm Outcome: Progressing Goals: Clinical Goals for the Shift: continue 1-1 observation, SAFETY, monitor vital signs, clarence Summary: Patient reported pain in abdomen, gave pain medication. She has not shown any harmful or suicidal activity. Patient is currently on a regular diet. Vital signs have been stable. Will continue to monitor. * Plan of Care - Peter Juarez RN - 01/22/2021 4:33 AM CDT Goals: Clinical Goals for the Shift: Continue 1-1 Observation, continue suicide/ elopment and fall precautions. monitor vital signs and labs. treat with PRN and scheduled medications. Problem: Lack of Knowledge: Goal: Ability to state ways to decrease the risk of falls will improve Outcome: Progressing Problem: Safety: Goal: Will remain free from falls Outcome: Progressing Goal: Will remain free from injury from falls Outcome: Progressing Problem: Health Behavior: Goal: Identification of resources available to assist in meeting health care needs will improve Outcome: Progressing Problem: Medication: Goal: Compliance with prescribed medication regimen will improve Outcome: Progressing Problem: Safety: Goal: Ability to remain free from injury will improve Outcome: Progressing Goal: Verbalizations of safety and security will increase Outcome: Progressing Problem: Self-Concept: Goal: Ability to disclose and discuss suicidal ideas will improve Outcome: Progressing Goal: Ability to verbalize positive feelings about self will improve Outcome: Progressing Summary: Continued 1-1 observation, continued fall risk and suicidal precautions. Alleviated insomnia and anxiety with ordered PRN medications. Will continue to monitor patient through out shift. * Plan of Care - Milo Hurtado RN - 01/21/2021 3:54 PM CDT Problem: Safety: Goal: Will remain free from falls Outcome: Progressing Goal: Will remain free from injury from falls Outcome: Progressing Goal: Will remain free from falls and injury in home environment Outcome: Progressing Problem: Lack of Knowledge: Goal: Ability to make informed decisions regarding treatment will improve Outcome: Progressing Problem: Coping: Goal: Ability to cope will improve Outcome: Progressing Problem: Health Behavior: Goal: Identification of resources available to assist in meeting health care needs will improve Outcome: Progressing Goal: Decreased thoughts of self harm Outcome: Progressing Goals: Clinical Goals for the Shift: continue 1on1 observation, SAFETY, monitor vital signs and labs Summary: Patient has been resting calmly in bed. Reported nausea, gave zofran. No reports of pain. Vital signs have been stable. Patient has been cooperative and compliant with all medications. Will continue to monitor. * Plan of Care - Ana Hutchinson RN - 01/21/2021 4:39 AM CDT Goals: Clinical Goals for the Shift: continue to monitor for suicidal thought, ensure safety Summary: Patient was restless and agitating at the beginning of the shift, threatening to go home, scheduled and PRNs given with good effect, patient spoke with the Psyche MD via video call , awaiting for bed availability. Monitoring continued. Problem: Health Behavior: Goal: Understanding of discharge needs will improve Outcome: Progressing Problem: Safety: Goal: Will remain free from falls Outcome: Progressing Problem: Lack of Knowledge: Goal: Ability to make informed decisions regarding treatment will improve Outcome: Progressing Problem: Coping: Goal: Ability to cope will improve Outcome: Progressing Problem: Health Behavior: Goal: Identification of resources available to assist in meeting health care needs will improve Outcome: Progressing Goal: Decreased thoughts of self harm Outcome: Progressing Problem: Health Behavior: Goal: Identification of resources available to assist in meeting health care needs will improve Outcome: Progressing Goal: Decreased thoughts of self harm Outcome: Progressing Problem: Medication: Goal: Compliance with prescribed medication regimen will improve Outcome: Progressing Problem: Safety: Goal: Verbalizations of safety and security will increase Outcome: Progressing Problem: Self-Concept: Goal: Ability to disclose and discuss suicidal ideas will improve Outcome: Progressing Goal: Ability to verbalize positive feelings about self will improve Outcome: Progressing * Jessica of Jorge A - Jean Bhardwaj RN - 01/20/2021 5:58 AM CDT Goals: Clinical Goals for the Shift: Safety and comfort, monitor behaviors, Monitor ideations Problem: Health Behavior: Goal: Understanding of discharge needs will improve Outcome: Progressing Problem: Lack of Knowledge: Goal: Ability to state ways to decrease the risk of falls will improve Outcome: Progressing Problem: Safety: Goal: Will remain free from falls Outcome: Progressing Goal: Will remain free from injury from falls Outcome: Progressing Goal: Will remain free from falls and injury in home environment Outcome: Progressing Problem: Lack of Knowledge: Goal: Ability to make informed decisions regarding treatment will improve Outcome: Progressing Problem: Coping: Goal: Ability to cope will improve Outcome: Progressing Problem: Health Behavior: Goal: Identification of resources available to assist in meeting health care needs will improve Outcome: Progressing Goal: Decreased thoughts of self harm Outcome: Progressing Problem: Medication: Goal: Compliance with prescribed medication regimen will improve Outcome: Progressing Problem: Safety: Goal: Ability to remain free from injury will improve Outcome: Progressing Goal: Verbalizations of safety and security will increase Outcome: Progressing Problem: Self-Concept: Goal: Ability to disclose and discuss suicidal ideas will improve Outcome: Progressing Goal: Ability to verbalize positive feelings about self will improve Outcome: Progressing * Jessica of Whitney Pickard RN - 01/19/2021 3:18 PM CDT Goals: Clinical Goals for the Shift: Safety and comfort, monitor behaviors, Monitor ideations Summary: No injuries or falls noted this shift. No reports of distress or discomfort noted. No reported ideations or inappropriate behaviors noted. Sitter at bedside for 1:1 observation. Appetite poor. Resting per bed with siderails up x2, call light within reach. * Plan of Care - Ana Hutchinson RN - 01/19/2021 4:44 AM CDT Goals: Clinical Goals for the Shift: maintain safety and promote comfort Summary:Patient transferred from 8th floor, orientation to unit environment done, sitter remained in the room with patient for one on one observation, no unsafe activities observed from patient, willcontinue to monitor closely. Problem: Lack of Knowledge: Goal: Ability to make informed decisions regarding treatment will improve Outcome: Progressing Problem: Coping: Goal: Ability to cope will improve Outcome: Progressing Problem: Health Behavior: Goal: Identification of resources available to assist in meeting health care needs will improve Outcome: Progressing Goal: Decreased thoughts of self harm Outcome: Progressing Problem: Medication: Goal: Compliance with prescribed medication regimen will improve Outcome: Progressing Problem: Safety: Goal: Ability to remain free from injury will improve Outcome: Progressing Goal: Verbalizations of safety and security will increase Outcome: Progressing Problem: Self-Concept: Goal: Ability to disclose and discuss suicidal ideas will improve Outcome: Progressing Goal: Ability to verbalize positive feelings about self will improve Outcome: Progressing * Plan of Care - Elvi Bautista RN - 01/18/2021 3:34 AM CDT Goals: Clinical Goals for the Shift: maintain safety, Summary: Problem: Lack of Knowledge: Goal: Ability to state ways to decrease the risk of falls will improve Outcome: Progressing Problem: Safety: Goal: Will remain free from falls Outcome: Progressing * Plan of Care - Emilia Brooks RN - 01/17/2021 7:30 AM CDT Problem: Health Behavior: Goal: Understanding of discharge needs will improve Outcome: Progressing Problem: Lack of Knowledge: Goal: Ability to state ways to decrease the risk of falls will improve Outcome: Progressing Problem: Safety: Goal: Will remain free from falls Outcome: Progressing Goal: Will remain free from injury from falls Outcome: Progressing Goal: Will remain free from falls and injury in home environment Outcome: Progressing Goals: Clinical Goals for the Shift: maintain safety, Summary: call light and sitter to prevent falls, bed in locked position, rails up x 2 * Plan of Jorge A - Elvi Bautista RN - 01/17/2021 2:26 AM CDT Goals: Clinical Goals for the Shift: maintain safety, Summary: Problem: Lack of Knowledge: Goal: Ability to state ways to decrease the risk of falls will improve Outcome: Progressing Problem: Safety: Goal: Will remain free from falls Outcome: Progressing Goal: Will remain free from injury from falls Outcome: Progressing Goal: Will remain free from falls and injury in home environment Outcome: Progressing * Plan of Care - Annalise Zee RN - 01/16/2021 2:17 PM CDT Attempted mask inspector, patient off the floor. Will follow up. Annalise Zee aircraft systems repairer [phone] * Plan of Jorge A - Emilia Brooks RN - 01/16/2021 7:15 AM CDT Problem: Health Behavior: Goal: Understanding of discharge needs will improve Outcome: Progressing Problem: Lack of Knowledge: Goal: Ability to state ways to decrease the risk of falls will improve Outcome: Progressing Problem: Safety: Goal: Will remain free from falls Outcome: Progressing Goal: Will remain free from injury from falls Outcome: Progressing Goal: Will remain free from falls and injury in home environment Outcome: Progressing Goals: Clinical Goals for the Shift: sitter safety, meds, ivf, assess chest pain Summary: Pt verbalizes understanding of the need to call for assistance out of bed to prevent falls, bed locked position, rails up x 2, personal items and call light within reach * Plan of Care - Angelica Arteaga RN - 01/15/2021 11:38 PM CDT Goals: Clinical Goals for the Shift: sitter safety, meds, ivf, assess chest pain Summary: Problem: Health Behavior: Goal: Understanding of discharge needs will improve Outcome: Progressing Problem: Lack of Knowledge: Goal: Ability to state ways to decrease the risk of falls will improve Outcome: Progressing Problem: Safety: Goal: Will remain free from falls Outcome: Progressing Goal: Will remain free from injury from falls Outcome: Progressing Goal: Will remain free from falls and injury in home environment Outcome: Progressing * Plan of Care - Barbara Degroot RN - 01/15/2021 4:29 PM CDT Goals: Clinical Goals for the Shift: sitter safety, meds, ivf, assess chest pain Summary: Patient continues to remain having a sitter present in the room. Pt denies any ideation of harming oneself. RN got consent from pt about having a conversation from the mental health coordinator abouther recent history. Pt continues to remain on ivf ns at 75ml/hr. Pt denies any chest pain. Pt does report pain to the mouth 04/21. Pt was given po tramadol + prn magic mouthwash. Will continue to monitor until the end of shift. * Plan of Care - Angelica Arteaga RN - 01/14/2021 11:12 PM CDT Goals: Clinical Goals for the Shift: safety, monitor tele due to elevated troponins Summary: Problem: Health Behavior: Goal: Understanding of discharge needs will improve Outcome: Progressing Problem: Lack of Knowledge: Goal: Ability to state ways to decrease the risk of falls will improve Outcome: Progressing Problem: Safety: Goal: Will remain free from falls Outcome: Progressing Goal: Will remain free from injury from falls Outcome: Progressing Goal: Will remain free from falls and injury in home environment Outcome: Progressing * Plan of Care - Barbara Degroot RN - 01/14/2021 5:04 PM CDT Goals: Clinical Goals for the Shift: safety, monitor tele due to elevated troponins Summary: Patient is being closely watched a sitter for previous behavior issues. Pt does not report any chest pain or signs of sob. Pt is told about having a US Kid done either tomorrow or Saturday. Will continue to monitor until the end of shift. * ED Triage Provider Note - Remi Astudillo PA - 01/13/2021 7:35 PM CDT Subjective: Madison Weinberg is a 55 y.o. female, with a PMHx of SHAYLA and endometriosis, who presents to the ED complaining of abdominal pain. Pt states that she has developed worsening pain to the R-side of her abdomen radiating to her R flank over the last x1.5 weeks. Associated with fever ([id number]), intermittent chills, nausea, L-sided chest pain, and SOB today. Pt notes that she has had 31 abdominal surgeries in the past. No recent sick contacts or exposures. Tolerating solids and liquids. Pt denies: vomiting, diarrhea,melena, cough, congestion, headaches, numbness, tingling, dizziness, weakness and fatigue. Objective: ED Triage Vitals Temp Pulse Resp BP SpO2 01/13/21193001/13/21193001/13/21193001/13/21193001/13/211934 36.1 ??C (97 ??F) (!) 128 20 123/94 100 % Temp src Heart Rate Source Patient Position BP Location FiO2 (%) 01/13/21193001/13/211930 -- 01/13/211930 -- Temporal Pulse Oximetry Left arm General: alert, cooperative, frail female, sitting up in chair, NAD Cardio: + tachycardia, normal S1, S2 Pulm: CTAB, no wheezes rales or rhonchi Abd: soft, + moderate diffuse R-sided TTP, mild + R CVAT Extremities: radial pulses 2+ bilaterally, no significant LE edema Psych: + anxious appearing A/P: - Labs: CBC, CMP, lipase, trops, urine - CT A/P, CXR, EKG - Send to main petey documented in this encounter Plan of Treatment Not on file documented as of this encounter Procedures Procedure Name Priority Date/Time Associated Diagnosis Comments EGFR STAT 01/26/2021 5:07 AM CDT DIFFERENTIAL AUTO STAT 01/26/2021 5:0 7 AM CDT CBC WITH AUTO DIFFERENTIAL STAT 01/26/2021 5:07 AM CDT RENAL FUNCTION PANEL STAT 01/26/2021 5:07 AM CDT TROPONIN T HIGH-SENSITIVITY 6-HOUR Timed 01/23/2021 11:10 AM CDT TROPONIN T HIGH-SENSITIVITY 4-HR Timed 01/23/2021 8:25 AM CDT TROPONIN T HIGH-SENSITIVITY SERIES (BASELINE, 2HR, 4HR, 6HR) STAT 01/23/2021 4:55 AM CDT ECG 12-LEAD STAT 01/23/2021 2:51 AM CDT Chest pressure EGFR Routine 01/21/2021 5:33 AM CDT DIFFERENTIAL AUTO Routine 01/21/2021 5:3 3 AM CDT CBC WITH AUTO DIFFERENTIAL Routine 01/21/2021 5:33 AM CDT MAGNESIUM Routine 01/21/2021 5:33 AM CDT RENAL FUNCTION PANEL Routine 01/21/2021 5:33 AM CDT INFLUENZA A/B, RSV, AND COVID-19 PCR Routine 01/20/2021 2:23 PM CDT EGFR Routine 01/20/2021 8:10 AM CDT DIFFERENTIAL AUTO Routine 01/20/2021 8:1 0 AM CDT CBC WITH AUTO DIFFERENTIAL Routine 01/20/2021 8:10 AM CDT MAGNESIUM Routine 01/20/2021 8:10 AM CDT RENAL FUNCTION PANEL Routine 01/20/2021 8:10 AM CDT EGFR Routine 01/19/2021 6:21 AM CDT DIFFERENTIAL AUTO Routine 01/19/2021 6:2 1 AM CDT CBC WITH AUTO DIFFERENTIAL Routine 01/19/2021 6:21 AM CDT MAGNESIUM Routine 01/19/2021 6:21 AM CDT RENAL FUNCTION PANEL Routine 01/19/2021 6:21 AM CDT INFLUENZA A/B, RSV, AND COVID-19 PCR Routine 01/19/2021 1:48 AM CDT MRSA ONLY (STAPHYLOCOCCUS AUREUS) PCR Routine 01/18/2021 3:58 PM CDT DIFFERENTIAL AUTO Routine 01/18/2021 6:0 1 AM CDT CBC WITH AUTO DIFFERENTIAL Routine 01/18/2021 6:01 AM CDT EGFR Routine 01/18/2021 5:15 AM CDT MAGNESIUM Routine 01/18/2021 5:15 AM CDT RENAL FUNCTION PANEL Routine 01/18/2021 5:15 AM CDT STRESS TEST FOR DUAL READ IP Routine 01/17/2021 2:48 PM CDT TRANSTHORACIC ECHO (TTE) COMPLETE W DOPPLER/CF WO CONTRAST Routine 01/17/2021 9:42 AM CDT EGFR Routine 01/17/2021 6:39 AM CDT MAGNESIUM Routine 01/17/2021 6:39 AM CDT RENAL FUNCTION PANEL Routine 01/17/2021 6:39 AM CDT NM MPI SPECT (REST AND/OR STRESS) MULTIPLE STUDIES IP Routine 01/16/2021 2:53 PM CDT STRESS TEST FOR DUAL READ IP Routine 01/16/2021 2:53 PM CDT US RETROPERITONEAL COMPLETE IP Routine 01/16/2021 2:32 PM CDT EGFR Routine 01/16/2021 5:59 AM CDT DIFFERENTIAL AUTO Routine 01/16/2021 5:5 9 AM CDT CBC WITH AUTO DIFFERENTIAL Routine 01/16/2021 5:59 AM CDT PHOSPHORUS Routine 01/16/2021 5:59 AM CDT MAGNESIUM Routine 01/16/2021 5:59 AM CDT COMPREHENSIVE METABOLIC PANEL Routine 01/16/2021 5:59 AM CDT ECG 12-LEAD Routine 01/15/2021 10:05 AM CDT EGFR Routine 01/15/2021 9:07 AM CDT DIFFERENTIAL AUTO Routine 01/15/2021 9:0 7 AM CDT CBC WITH AUTO DIFFERENTIAL Routine 01/15/2021 9:07 AM CDT PHOSPHORUS Routine 01/15/2021 9:07 AM CDT MAGNESIUM Routine 01/15/2021 9:07 AM CDT LIPID PANEL Routine 01/15/2021 9:07 AM CDT COMPREHENSIVE METABOLIC PANEL Routine 01/15/2021 9:07 AM CDT URINALYSIS AND REFLEX TO MICROSCOPIC AND CULTURE Routine 01/14/2021 4:49 PM CDT PROTEIN / CREATININE RATIO, URINE, RANDOM Routine 01/14/2021 4:49 PM CDT DRUGS OF ABUSE SCREEN, URINE WITHOUT CONFIRMATION Routine 01/14/2021 4:49 PM CDT SODIUM, URINE, RANDOM Routine 01/14/2021 4:49 PM CDT URINALYSIS, MICROSCOPIC ONLY Routine 01/14/2021 4:49 PM CDT URINE CULTURE Routine 01/14/2021 4:49 PM CDT ELDA QUALITATIVE WITH REFLEX TO ELDA QUANTITATIVE Routine 01/14/2021 3:33 PM CDT C4 COMPLEMENT Routine 01/14/2021 3:33 PM CDT ANTI-NEUTROPHILIC CYTOPLASMIC ANTIBODY Routine 01/14/2021 3:33 PM CDT C3 COMPLEMENT Routine 01/14/2021 3:33 PM CDT ACETAMINOPHEN LEVEL Timed 01/14/2021 3 :33 PM CDT BLOOD CULTURE Routine 01/14/2021 9:52 AM CDT BLOOD CULTURE Routine 01/14/2021 9:52 AM CDT URINALYSIS AND REFLEX TO MICROSCOPIC AND CULTURE STAT 01/14/2021 6:59 AM CDT URINALYSIS, MICROSCOPIC ONLY STAT 01/14/2021 6:59 AM CDT URINE CULTURE STAT 01/14/2021 6:59 AM CDT EGFR STAT 01/14/2021 6:44 AM CDT DIFFERENTIAL AUTO STAT 01/14/2021 6:4 4 AM CDT CBC WITH AUTO DIFFERENTIAL STAT 01/14/2021 6:44 AM CDT APTT STAT 01/14/2021 6:44 AM CDT PROTIME-INR STAT 01/14/2021 6:44 AM CDT MAGNESIUM STAT 01/14/2021 6:44 AM CDT ACETAMINOPHEN LEVEL Timed 01/14/2021 6 :44 AM CDT COMPREHENSIVE METABOLIC PANEL STAT 01/14/2021 6:44 AM CDT ECG 12-LEAD STAT 01/14/2021 6:25 AM CDT BLOOD GAS, VENOUS Routine 01/14/2021 5:3 5 AM CDT TROPONIN T HIGH-SENSITIVITY 6-HOUR Timed 01/14/2021 4:17 AM CDT LACTATE Routine 01/14/2021 4:17 AM CDT TROPONIN T HIGH-SENSITIVITY 4-HR Timed 01/14/2021 2:15 AM CDT TROPONIN T HIGH-SENSITIVITY 2-HOUR Timed 01/14/2021 12:39 AM CDT ACETAMINOPHEN LEVEL STAT 01/14/2021 1 2:[address] ABDOMEN PELVIS WO CONTRAST ED 01/13/2021 11:52 PM CDT TROPONIN T HIGH-SENSITIVITY SERIES (BASELINE, 2HR, 4HR, 6HR) STAT 01/13/2021 9:46 PM CDT EGFR STAT 01/13/2021 9:46 PM CDT EGFR STAT 01/13/2021 9:46 PM CDT DIFFERENTIAL AUTO STAT 01/13/2021 9:4 6 PM CDT CBC WITH AUTO DIFFERENTIAL STAT 01/13/2021 9:46 PM CDT TSH STAT 01/13/2021 9:46 PM CDT LIPASE STAT 01/13/2021 9:46 PM CDT ETHANOL STAT 01/13/2021 9:46 PM CDT ACETAMINOPHEN LEVEL STAT 01/13/2021 9 :46 PM CDT SALICYLATE LEVEL STAT 01/13/2021 9:46 PM CDT COMPREHENSIVE METABOLIC PANEL STAT 01/13/2021 9:46 PM CDT COMPREHENSIVE METABOLIC PANEL STAT 01/13/2021 9:46 PM CDT XR CHEST PA LATERAL 2 VIEWS ED 01/13/2021 8:35 PM CDT ECG 12-LEAD STAT 01/13/2021 7:41 PM CDT documented in this encounter Results * eGFR (01/26/2021 5:07 AM CDT) [facility] eGFR 90 mL/min/1.7 3 m2 [facility] Comment: Interpretive Data Reference Interval Normal ?>/= [...] interpretive data was last reviewed 2020 Blood specimen (specimen) 01/26/2021 5:07 AM CDT 01/26/2021 5:21 AM CDT Rachid Shaw MD LAB BLOOD ORDERABLES Final Result [facility] [id number] Department [place] [address] * Differential, auto (01/26/2021 5:07 AM CDT) Neutrophil abs 5.5 1.7 - 6.5 K/cumm [facility] Imm gran abs 0.0 0.0 - 0.1 K/cumm [facility] Lymphocyte abs 2.2 0.8 - 3.3 K/cumm [facility] Monocyte abs 0.7 0.2 - 0.8 K/cumm [facility] Eosinophil abs 0.2 0.0 - 0.5 K/cumm [facility] Basophil abs 0.1 0.0 - 0.1 K/cumm [facility] Neutrophil pct 63.7 % [facility] Comment: Interpretive Data Percent cell count reference ranges are not reported, since discordance with absolute values may lead to misinterpretation of CBC data. Current Interpretive Data was last revised on 2017. Imm gran pct 0.5 % [facility] Comment: Interpretive Data Percent cell count reference ranges are not reported, since discordance with absolute values may lead to misinterpretation of CBC data. Current Interpretive Data was last revised on 2017. Lymphocyte pct 25.0 % [facility] Comment: Interpretive Data Percent cell count reference ranges are not reported, since discordance with absolute values may lead to misinterpretation of CBC data. Current Interpretive Data was last revised on 2017. Monocyte pct 7.6 % [facility] Comment: Interpretive Data Percent cell count reference ranges are not reported, since discordance with absolute values may lead to misinterpretation of CBC data. Current Interpretive Data was last revised on 2017. Eosinophil pct 2.3 % [facility] Comment: Interpretive Data Percent cell count reference ranges are not reported, since discordance with absolute values may lead to misinterpretation of CBC data. Current Interpretive Data was last revised on 2017. Basophil pct 0.9 % [facility] Comment: Interpretive Data Percent cell count reference ranges are not reported, since discordance with absolute values may lead to misinterpretation of CBC data. Current Interpretive Data was last revised on 2017. Blood specimen (specimen) 01/26/2021 5:07 AM CDT 01/26/2021 5:23 AM CDT Rachid Shaw MD LAB BLOOD ORDERABLES Final Result Performing Organization Address City/[facility]/ZIP Co de Phone Number JAIL[facility] TRAN [id number] [place] [address] * (ABNORMAL) CBC with auto differential (01/26/2021 5:07 AM CDT) WBC 8.6 3.8 - 9.9 K/cumm [facility] Hgb 11.8(L) 11.9 - 15.5 g/dL [facility] Hct 37.7 35.6 - 45.5 % [facility] Plt 352 150 - 400 K/cumm [facility] MPV 9.5 9.1 - 12.3 fL [facility] RBC 3.99 3.90 - 5.20 M/cumm [facility] CH MCV 94.5 81.3 - 96.4 fL [facility] MCH 29.6 27.1 - 33.3 pg [facility] MCHC 31.3(L) 32.3 - 35.7 g/dL [facility] CH RDW CV 12.0 11.1 - 14.9 % [facility] CH RDW SD 41.7 35.7 - 48.1 fL [facility] NRBC abs 0.00 0.00 - 0.01 K/cumm [facility] Blood specimen (specimen) 01/26/2021 5:07 AM CDT 01/26/2021 5:23 AM CDT Rachid Shaw MD LAB BLOOD ORDERABLES Final Result Performing Organization Address City/[facility]/ZIP Co de Phone Number [facility]AIL[facility] TRAN [id number] Department [place] [employer] [place], [place] [id number] * (ABNORMAL) Renal function panel (01/26/2021 5:07 AM CDT) Sodium 137 135 - 145 mmol/L [facility] Potassium, pl 3.8 3.3 - 4.9 mmol/L [facility] Chloride 102 97 - 110 mmol/L [facility] CO2 26 22 - 32 mmol/L [facility] Anion gap 9 2 - 15 mmol/L [facility] BUN 6(L) 8 - 25 mg/dL [facility] Creatinine 0.75 0.60 - 1.10 mg/dL [facility] Glucose 110 70 - 199 mg/dL [facility] Comment: Interpretive Data Fasting glucose >/= [...] 2017. Calcium 9.3 8.5 - 10.3 mg/dL [facility] Phosphorus, pl 3.5 2.3 - 4.5 mg/dL [facility] Albumin 3.2(L) 3.5 - 5.0 g/dL [facility] Blood specimen (specimen) 01/26/2021 5:07 AM CDT 01/26/2021 5:21 AM CDT Rachid Shaw MD LAB BLOOD ORDERABLES Final Result [facility] [id number] Department [place] [address] * Troponin T high-sensitivity 6-hour (01/23/2021 11:10 AM CDT) Trop T hs 13 <=14 ng/L [facility] Comment: Interpretive Data For further hscTnT resources including the diagnostic algorithm and an aid in interpretation, copy and paste this link: https://nrl.testcatalog.org/show/hsTrop Current Interpretive Data last revised 2020. Trop T hs delta 2 ng/L [facility] Trop T hs interp Insignificant [facility] Blood specimen (specimen) 01/23/2021 11:10 AM CDT 01/23/2021 11:55 AM CDT Sanjana Alvarado [employer] LAB BLOOD ORDERABLES Moraima l Result Performing Organization Address [facility] de Phone Number [facility] [facility] [address] [place] [address] * Troponin T high-sensitivity 4-hour (01/23/2021 8:25 AM CDT) Trop T hs 14 <=14 ng/L [facility] Comment: Interpretive Data For further hscTnT resources including the diagnostic algorithm and an aid in interpretation, copy and paste this link: [email or web address] Current Interpretive Data last revised 2020. Trop T hs delta 3 ng/L [facility] Trop T hs interp Insignificant [facility] Blood specimen (specimen) 01/23/2021 8:25 AM CDT 01/23/2021 8:35 AM CDT Sanjana Alvarado [employer] LAB BLOOD ORDERABLES Moraima l Result Performing Organization Address [facility] de Phone Number [facility] [id number] [place] [address] * Troponin T high-sensitivity series (baseline, 2hr, 4hr, 6hr) (01/23/2021 4:55 AM CDT) Trop T hs 11 <=14 ng/L [facility] Comment: Slight hemolysis may result in decreased troponin measurement. Consider recollection. Interpretive Data For further hscTnT resources including the diagnostic algorithm and an aid in interpretation, copy and paste this link: [email or web address] Current Interpretive Data last revised 2020. Blood specimen (specimen) 01/23/2021 4:55 AM CDT 01/23/2021 4:58 AM CDT Sanjana Alvarado [employer] LAB BLOOD ORDERABLES Moraima l Result Performing Organization Address [facility] Co de Phone Number [facility] [address] Department [place] [address] * ECG 12 lead (01/23/2021 2:51 AM CDT) 01/23/2021 2:51 AM CDT Narrative [facility] - 01/23/2021 9:11 AM CDT Vent Rate: 83 bpm RR Interval: 717 msec RI Interval: 151 msec QRS Duration: 88 msec QT Interval: 402 msec QTC Interval: 442 msec P-R-T [place]: 65 - 72 - 49 degrees SINUS RHYTHM NONSPECIFIC T-WAVE ABNORMALITY BORDERLINE ECG Compared to prior EKG, heart rate has increased Electronically Signed By: Negrito Lo MD Ru Jin MD ECG ORDERABLES Final Result Performing Organization Address [facility] de Phone Number [facility] [employer] [facility] * eGFR (01/21/2021 5:33 AM CDT) eGFR 105 mL/min/1.7 3 m2 [facility] Comment: Interpretive Data Reference Interval Normal ?>/= [...] interpretive data was last reviewed 2020 Blood specimen (specimen) 01/21/2021 5:33 AM CDT 01/21/2021 5:42 AM CDT us Jorje Osorio MD LAB BLOOD ORDERABLES Final Res ult [facility] [address] Department [place] [address] * Differential, auto (01/21/2021 5:33 AM CDT) Neutrophil abs 4.1 1.7 - 6.5 K/cumm [facility] Imm gran abs 0.0 0.0 - 0.1 K/cumm [facility] Lymphocyte abs 1.7 0.8 - 3.3 K/cumm [facility] Monocyte abs 0.7 0.2 - 0.8 K/cumm [facility] Eosinophil abs 0.5 0.0 - 0.5 K/cumm [facility] Basophil abs 0.1 0.0 - 0.1 K/cumm [facility] Neutrophil pct 58.6 % [facility] Comment: Interpretive Data Percent cell count reference ranges are not reported, since discordance with absolute values may lead to misinterpretation of CBC data. Current Interpretive Data was last revised on 2017. Imm gran pct 0.4 % [facility] Comment: Interpretive Data Percent cell count reference ranges are not reported, since discordance with absolute values may lead to misinterpretation of CBC data. Current Interpretive Data was last revised on 2017. Lymphocyte pct 24.1 % [facility] Comment: Interpretive Data Percent cell count reference ranges are not reported, since discordance with absolute values may lead to misinterpretation of CBC data. Current Interpretive Data was last revised on 2017. Monocyte pct 9.6 % [facility] Comment: Interpretive Data Percent cell count reference ranges are not reported, since discordance with absolute values may lead to misinterpretation of CBC data. Current Interpretive Data was last revised on 2017. Eosinophil pct 6.6 % [facility] Comment: Interpretive Data Percent cell count reference ranges are not reported, since discordance with absolute values may lead to misinterpretation of CBC data. Current Interpretive Data was last revised on 2017. Basophil pct 0.7 % [facility] Comment: Interpretive Data Percent cell count reference ranges are not reported, since discordance with absolute values may lead to misinterpretation of CBC data. Current Interpretive Data was last revised on 2017. Blood specimen (specimen) 01/21/2021 5:33 AM CDT 01/21/2021 5:42 AM CDT us Francisco Padilla MD LAB BLOOD ORDERABLES F inal Result [facility] [address] Department [place] [address] * (ABNORMAL) Renal function panel (01/21/2021 5:33 AM CDT) Sodium 139 135 - 145 mmol/L [facility] Potassium, pl 3.7 3.3 - 4.9 mmol/L [facility] Chloride 104 97 - 110 mmol/L [facility] CO2 22 22 - 32 mmol/L [facility] Anion gap 13 2 - 15 mmol/L [facility] BUN 4(L) 8 - 25 mg/dL [facility] Creatinine 0.56(L) 0.60 - 1.10 mg/dL [facility] Glucose 118 70 - 199 mg/dL [facility] Comment: Interpretive Data Fasting glucose >/= [...] interpretive data was last revised 2017. Calcium 9.4 8.5 - 10.3 mg/dL [facility] Phosphorus, pl 3.5 2.3 - 4.5 mg/dL [facility] Albumin 3.2(L) 3.5 - 5.0 g/dL [facility] Blood specimen (specimen) 01/21/2021 5:33 AM CDT 01/21/2021 5:42 AM CDT Jorje Osorio MD LAB BLOOD ORDERABLES Final Res ult Performing Organization Address [facility]/ZIP Co de Phone Number [facility] [address] [place] [address] * Magnesium (01/21/2021 5:33 AM CDT) Magnesium 1.7 1.4 - 2.5 mg/dL [facility] Blood specimen (specimen) 01/21/2021 5:33 AM CDT 01/21/2021 5:42 AM CDT Francisco Padilla MD LAB BLOOD ORDERABLES F inal Result Performing Organization Address [facility] de Phone Number [facility] [address] [employer] [place], [place] [id number] * (ABNORMAL) CBC with auto differential (01/21/2021 5:33 AM CDT) WBC 7.0 3.8 - 9.9 K/cumm [facility] Hgb 12.7 11.9 - 15.5 g/dL [facility] Hct 41.4 35.6 - 45.5 % [facility] Plt 340 150 - 400 K/cumm [facility] MPV 9.2 9.1 - 12.3 fL [facility] RBC 4.25 3.90 - 5.20 M/cumm [facility] MCV 97.4(H) 81.3 - 96.4 fL [facility] MCH 29.9 27.1 - 33.3 pg [facility] MCHC 30.7(L) 32.3 - 35.7 g/dL [facility] RDW CV 12.4 11.1 - 14.9 % [facility] RDW SD 44.6 35.7 - 48.1 fL [facility] NRBC abs 0.00 0.00 - 0.01 K/cumm [facility] Blood specimen (specimen) 01/21/2021 5:33 AM CDT 01/21/2021 5:42 AM CDT Francisco Padilla MD LAB BLOOD ORDERABLES F inal Result [facility] [address] Department [place] [address] * Influenza A/B, RSV, and COVID-19 PCR Nasopharyngeal (01/20/2021 2:23 PM CDT) COVID-19 RNA Negative Negative [facility] Comment: Interpretive data: Synonyms for this test include: PCR and NAAT . ??This test is performed using the [employer] Xpert Xpress assay. This is a real-time [...] Interpretive data last revised September 15, 2020. Influenza A RNA Negative Negative [facility] Influenza B RNA Negative Negative [facility] RSV RNA Negative Negative [facility] Comment: Interpretive data: This test is performed using the [employer] Xpert Assay. This is a multiplex, real- time reverse transcriptase PCR assay that detects influenza A, influenza B, and respiratory syncytial virus RNA. This assay has been cleared by the US Food and Drug Administration, and its performance characteristics have been verified by the performing laboratory. ?? Interpretive data last revised 2020. First COVID-19 test? No [facility] Employeed in healthcare? No [facility] status? No [facility] Group care resident? No [facility] Hospitalized? Yes [facility] Is patient in ICU? No [facility] Symptomatic as defined by CDC? No [facility] Nasopharyngeal 01/20/2021 2: 23 PM CDT 01/20/2021 2:26 PM CDT Narrative [facility] - 01/20/2021 3:06 PM CDT NEED STAT FOR TRANSFER Reason for testing?->Screening prior to admission to behavioral health unit Known exposure to confirmed or suspected COVID-19 case?->No us Ru Jin MD LAB MICROBIOLOGY - GENERAL OR DERABLES Final Result [facility] [address] Department [place] [address] * eGFR (01/20/2021 8:10 AM CDT) eGFR 100 mL/min/1.7 3 m2 [facility] Comment: Interpretive Data Reference Interval Normal ?>/= [...] interpretive data was last reviewed 2020 Blood specimen (specimen) 01/20/2021 8:10 AM CDT 01/20/2021 8:26 AM CDT us Jorje Osorio MD LAB BLOOD ORDERABLES Final Res ult [facility] [address] Department [place] [address] * (ABNORMAL) Differential, auto (01/20/2021 8:10 AM CDT) Neutrophil abs 5.3 1.7 - 6.5 K/cumm [facility] Imm gran abs 0.0 0.0 - 0.1 K/cumm [facility] Lymphocyte abs 1.8 0.8 - 3.3 K/cumm [facility] Monocyte abs 0.8 0.2 - 0.8 K/cumm [facility] Eosinophil abs 0.6(H) 0.0 - 0.5 K/cumm [facility] Basophil abs 0.1 0.0 - 0.1 K/cumm [facility] Neutrophil pct 61.8 % [facility] Comment: Interpretive Data Percent cell count reference ranges are not reported, since discordance with absolute values may lead to misinterpretation of CBC data. Current Interpretive Data was last revised on 2017. Imm gran pct 0.5 % [facility] Comment: Interpretive Data Percent cell count reference ranges are not reported, since discordance with absolute values may lead to misinterpretation of CBC data. Current Interpretive Data was last revised on 2017. Lymphocyte pct 20.7 % [facility] Comment: Interpretive Data Percent cell count reference ranges are not reported, since discordance with absolute values may lead to misinterpretation of CBC data. Current Interpretive Data was last revised on 2017. Monocyte pct 9.0 % [facility] Comment: Interpretive Data Percent cell count reference ranges are not reported, since discordance with absolute values may lead to misinterpretation of CBC data. Current Interpretive Data was last revised on 2017. Eosinophil pct 7.1 % [facility] Comment: Interpretive Data Percent cell count reference ranges are not reported, since discordance with absolute values may lead to misinterpretation of CBC data. Current Interpretive Data was last revised on 2017. Basophil pct 0.9 % [facility] Comment: Interpretive Data Percent cell count reference ranges are not reported, since discordance with absolute values may lead to misinterpretation of CBC data. Current Interpretive Data was last revised on 2017. Blood specimen (specimen) 01/20/2021 8:10 AM CDT 01/20/2021 8:26 AM CDT us Francisco Padilla MD LAB BLOOD ORDERABLES F inal Result [facility] [address] Department [place] [address] * (ABNORMAL) Renal function panel (01/20/2021 8:10 AM CDT) Sodium 141 135 - 145 mmol/L [facility] Potassium, pl 3.4 3.3 - 4.9 mmol/L [facility] Chloride 103 97 - 110 mmol/L [facility] CO2 26 22 - 32 mmol/L [facility] Anion gap 12 2 - 15 mmol/L [facility] BUN 3(L) 8 - 25 mg/dL [facility] Creatinine 0.64 0.60 - 1.10 mg/dL [facility] Glucose 117 70 - 199 mg/dL [facility] Comment: Interpretive Data Fasting glucose >/= 126 [...] 2017. Calcium 9.5 8.5 - 10.3 mg/dL [facility] Phosphorus, pl 3.0 2.3 - 4.5 mg/dL [facility] Albumin 3.7 3.5 - 5.0 g/dL [facility] Blood specimen (specimen) 01/20/2021 8:10 AM CDT 01/20/2021 8:26 AM CDT Jorje Osorio MD LAB BLOOD ORDERABLES Final Res ult [facility] [address] [facility] [employer] [place], [place] [id number] * Magnesium (01/20/2021 8:10 AM CDT) Magnesium 1.8 1.4 - 2.5 mg/dL [facility] Blood specimen (specimen) 01/20/2021 8:10 AM CDT 01/20/2021 8:26 AM CDT Francisco Padilla MD LAB BLOOD ORDERABLES F inal Result Performing Organization Address [facility] Co de Phone Number [facility] [address] [place] [address] * (ABNORMAL) CBC with auto differential (01/20/2021 8:10 AM CDT) Pathologist [facility] [place] WBC 8.6 3.8 - 9.9 K/cumm [facility] Hgb 13.8 11.9 - 15.5 g/dL [facility] Hct 42.3 35.6 - 45.5 % [facility] Plt 414(H) 150 - 400 K/cumm [facility] MPV 9.4 9.1 - 12.3 fL [facility] RBC 4.62 3.90 - 5.20 M/cumm [facility] MCV 91.6 81.3 - 96.4 fL [facility] MCH 29.9 27.1 - 33.3 pg [facility] MCHC 32.6 32.3 - 35.7 g/dL [facility] RDW CV 12.4 11.1 - 14.9 % [facility] RDW SD 41.6 35.7 - 48.1 fL [facility] NRBC abs 0.00 0.00 - 0.01 K/cumm [facility] Blood specimen (specimen) 01/20/2021 8:10 AM CDT 01/20/2021 8:26 AM CDT Francisco Padilla MD LAB BLOOD ORDERABLES F inal Result Performing Organization Address [facility] Co de Phone Number [facility] [address] Department [place] [address] * eGFR (01/19/2021 6:21 AM CDT) Pathologist [facility] [place] eGFR 104 mL/min/1.7 3 m2 [facility] Comment: Interpretive Data Reference Interval Normal [...] interpretive data was last reviewed 2020 Blood specimen (specimen) 01/19/2021 6:21 AM CDT 01/19/2021 6:42 AM CDT us Jorje Osorio MD LAB BLOOD ORDERABLES Final Res ult Performing Organization Address [facility]/ZIP Co de Phone Number [facility] [id number] Department [place] [address] * (ABNORMAL) Differential, auto (01/19/2021 6:21 AM CDT) Neutrophil abs 9.9(H) 1.7 - 6.5 K/cumm [facility] Imm gran abs 0.1 0.0 - 0.1 K/cumm [facility] Lymphocyte abs 1.0 0.8 - 3.3 K/cumm [facility] Monocyte abs 1.0(H) 0.2 - 0.8 K/cumm [facility] Eosinophil abs 0.4 0.0 - 0.5 K/cumm [facility] Basophil abs 0.0 0.0 - 0.1 K/cumm [facility] Neutrophil pct 80.2 % [facility] Comment: Interpretive Data Percent cell count reference ranges are not reported, since discordance with absolute values may lead to misinterpretation of CBC data. Current Interpretive Data was last revised on 2017. Imm gran pct 0.5 % [facility] Comment: Interpretive Data Percent cell count reference ranges are not reported, since discordance with absolute values may lead to misinterpretation of CBC data. Current Interpretive Data was last revised on 2017. Lymphocyte pct 7.8 % [facility] Comment: Interpretive Data Percent cell count reference ranges are not reported, since discordance with absolute values may lead to misinterpretation of CBC data. Current Interpretive Data was last revised on 2017. Monocyte pct 8.0 % [facility] Comment: Interpretive Data Percent cell count reference ranges are not reported, since discordance with absolute values may lead to misinterpretation of CBC data. Current Interpretive Data was last revised on 2017. Eosinophil pct 3.2 % [facility] Comment: Interpretive Data Percent cell count reference ranges are not reported, since discordance with absolute values may lead to misinterpretation of CBC data. Current Interpretive Data was last revised on 2017. Basophil pct 0.3 % [facility] Comment: Interpretive Data Percent cell count reference ranges are not reported, since discordance with absolute values may lead to misinterpretation of CBC data. Current Interpretive Data was last revised on 2017. Blood specimen (specimen) 01/19/2021 6:21 AM CDT 01/19/2021 6:41 AM CDT Francisco Padilla MD LAB BLOOD ORDERABLES F inal Result Performing Organization Address [facility]/ZIP Co de Phone Number [facility] [address] Department of [employer] [place], [place] [id number] * (ABNORMAL) Renal function panel (01/19/2021 6:21 AM CDT) Sodium 138 135 - 145 mmol/L [facility] Potassium, pl 3.2(L) 3.3 - 4.9 mmol/L [facility] Chloride 101 97 - 110 mmol/L [facility] CO2 24 22 - 32 mmol/L [facility] Anion gap 13 2 - 15 mmol/L [facility] BUN 3(L) 8 - 25 mg/dL [facility] Creatinine 0.57(L) 0.60 - 1.10 mg/dL [facility] Glucose 107 70 - 199 mg/dL [facility] Comment: Interpretive Data Fasting glucose >/= 126 [...] interpretive data was last revised 2017. Calcium 9.0 8.5 - 10.3 mg/dL [facility] Phosphorus, pl 2.8 2.3 - 4.5 mg/dL [facility] Albumin 3.2(L) 3.5 - 5.0 g/dL [facility] Blood specimen (specimen) 01/19/2021 6:21 AM CDT 01/19/2021 6:42 AM CDT us Jorje Osorio MD LAB BLOOD ORDERABLES Final Res ult [facility] [address] Department [place] [address] * Magnesium (01/19/2021 6:21 AM CDT) Magnesium 1.5 1.4 - 2.5 mg/dL [facility] Blood specimen (specimen) 01/19/2021 6:21 AM CDT 01/19/2021 6:42 AM CDT Francisco Padilla MD LAB BLOOD ORDERABLES F inal Result Performing Organization Address [facility] Co de Phone Number [facility] [address] Department [place] [address] * (ABNORMAL) CBC with auto differential (01/19/2021 6:21 AM CDT) WBC 12.3(H) 3.8 - 9.9 K/cumm [facility] Hgb 12.6 11.9 - 15.5 g/dL [facility] Hct 38.6 35.6 - 45.5 % [facility] Plt 390 150 - 400 K/cumm [facility] MPV 9.3 9.1 - 12.3 fL [facility] RBC 4.16 3.90 - 5.20 M/cumm [facility] MCV 92.8 81.3 - 96.4 fL [facility] MCH 30.3 27.1 - 33.3 pg [facility] MCHC 32.6 32.3 - 35.7 g/dL [facility] RDW CV 12.4 11.1 - 14.9 % [facility] RDW SD 42.5 35.7 - 48.1 fL [facility] NRBC abs 0.00 0.00 - 0.01 K/cumm [facility] Blood specimen (specimen) 01/19/2021 6:21 AM CDT 01/19/2021 6:41 AM CDT Francisco Padilla MD LAB BLOOD ORDERABLES F inal Result Performing Organization Address [facility]/ZIP Co de Phone Number [facility] [address] Department of [employer] [place], [place] [id number] * Influenza A/B, RSV, and COVID-19 PCR Nasopharyngeal (01/19/2021 1:48 AM CDT) COVID-19 RNA Negative Negative [facility] Comment: Interpretive data: Synonyms for this test include: PCR and NAAT . ??This test is performed using the [employer] Xpert Xpress assay. This is a real-time [...] Interpretive data last revised September 15, 2020. Influenza A RNA Negative Negative [facility] Influenza B RNA Negative Negative [facility] RSV RNA Negative Negative [facility] Comment: Interpretive data: This test is performed using the [employer] Xpert Assay. This is a multiplex, real- time reverse transcriptase PCR assay that detects influenza A, influenza B, and respiratory syncytial virus RNA. This assay has been cleared by the [place] Food and Drug Administration, and its performance characteristics have been verified by the performing laboratory. ?? Interpretive data last revised 2020. First COVID-19 test? No [facility] Employeed in healthcare? No [facility] status? No [facility] Group care resident? No [facility] Hospitalized? Yes [facility] Is patient in ICU? No [facility] Symptomatic as defined by CDC? No [facility] Nasopharyngeal 01/19/2021 1: 48 AM CDT 01/19/2021 1:51 AM CDT Narrative [facility] - 01/19/2021 2:41 AM CDT Reason for testing?->Screening prior to admission to behavioral health unit Known exposure to confirmed or suspected COVID-19 case?->No Ana Ellis MD LAB MICROBIOLOGY - GENERAL [facility]OS[facility] CALVO Final Result [facility] [address] Department [place] [address] * (ABNORMAL) MRSA Only (Staphylococcs aureus) PCR Nasal (01/18/2021 3:58 PM CDT) PCR Scrn, Methicillin resistant Staphylococcus aureus (MRSA) Detected( A) Not Detected [facility] Comment: Testing performed using Nucleic Acid Amplification with the [employer] Xpert MRSA Assay. This assay detects DNA from [employer]mec strains of Staphylococcus aureus using Real- Time PCR and has been cleared by the FDA. Performance characteristics have been verified by the [facility]. Nasal 01/18/2021 3:58 PM CDT 01/18/2021 4:11 PM CDT Ru Jin MD LAB MICROBIOLOGY - GENERAL OR DERABLES Final Result [facility] [address] Department [place] [address] * Differential, auto (01/18/2021 6:01 AM CDT) Neutrophil abs 6.4 1.7 - 6.5 K/cumm [facility] Imm gran abs 0.0 0.0 - 0.1 K/cumm [facility] Lymphocyte abs 1.7 0.8 - 3.3 K/cumm [facility] Monocyte abs 0.7 0.2 - 0.8 K/cumm [facility] Eosinophil abs 0.4 0.0 - 0.5 K/cumm [facility] Basophil abs 0.0 0.0 - 0.1 K/cumm [facility] Neutrophil pct 69.1 % [facility] Comment: Interpretive Data Percent cell count reference ranges are not reported, since discordance with absolute values may lead to misinterpretation of CBC data. Current Interpretive Data was last revised on 2017. Imm gran pct 0.4 % [facility] Comment: Interpretive Data Percent cell count reference ranges are not reported, since discordance with absolute values may lead to misinterpretation of CBC data. Current Interpretive Data was last revised on 2017. Lymphocyte pct 18.3 % [facility] Comment: Interpretive Data Percent cell count reference ranges are not reported, since discordance with absolute values may lead to misinterpretation of CBC data. Current Interpretive Data was last revised on 2017. Monocyte pct 7.2 % [facility] Comment: Interpretive Data Percent cell count reference ranges are not reported, since discordance with absolute values may lead to misinterpretation of CBC data. Current Interpretive Data was last revised on 2017. Eosinophil pct 4.7 % [facility] Comment: Interpretive Data Percent cell count reference ranges are not reported, since discordance with absolute values may lead to misinterpretation of CBC data. Current Interpretive Data was last revised on 2017. Basophil pct 0.3 % CERNER Comment: Interpretive Data Percent cell count reference ranges are not reported, since discordance with absolute values may lead to misinterpretation of CBC data. Current Interpretive Data was last revised on 2017. Blood specimen (specimen) 01/18/2021 6:01 AM CDT 01/18/2021 6:01 AM CDT Francisco Padilla MD LAB BLOOD ORDERABLES F inal Result [facility] [address] Department [place] [address] * CBC with auto differential (01/18/2021 6:01 AM CDT) WBC 9.2 3.8 - 9.9 K/cumm [facility] Hgb 12.0 11.9 - 15.5 g/dL [facility] Hct 36.5 35.6 - 45.5 % [facility] Plt 381 150 - 400 K/cumm [facility] MPV 9.7 9.1 - 12.3 fL [facility] RBC 3.98 3.90 - 5.20 M/cumm [facility] MCV 91.7 81.3 - 96.4 fL [facility] MCH 30.2 27.1 - 33.3 pg [facility] MCHC 32.9 32.3 - 35.7 g/dL [facility] RDW CV 12.5 11.1 - 14.9 % [facility] RDW SD 42.1 35.7 - 48.1 fL [facility] NRBC abs 0.00 0.00 - 0.01 K/cumm [facility] Blood specimen (specimen) 01/18/2021 6:01 AM CDT 01/18/2021 6:01 AM CDT us Francisco Padilla MD LAB BLOOD ORDERABLES F inal Result Performing Organization Address [facility] Co de Phone Number JAILYN TRAN [address] [employer] [address] * eGFR (01/18/2021 5:15 AM CDT) eGFR 110 mL/min/1.7 3 m2 LINDAREY Comment: Interpretive Data Reference Interval Normal ?>/= [...] interpretive data was last reviewed 2020 Blood specimen (specimen) 01/18/2021 5:15 AM CDT 01/18/2021 6:01 AM CDT us Jorje Osorio MD LAB BLOOD ORDERABLES Final Res ult Performing Organization Address [facility] Co de Phone Number JAILYN TRAN [address] [place] [address] * (ABNORMAL) Renal function panel (01/18/2021 5:15 AM CDT) Sodium 138 135 - 145 mmol/L [facility] Potassium, pl 3.4 3.3 - 4.9 mmol/L [facility] Chloride 103 97 - 110 mmol/L [facility] CH CO2 22 22 - 32 mmol/L [facility] CH Anion gap 13 2 - 15 mmol/L [facility] BUN 4(L) 8 - 25 mg/dL [facility] Creatinine 0.49(L) 0.60 - 1.10 mg/dL [facility] CH Glucose 91 70 - 199 mg/dL CERNER Comment: Interpretive Data Fasting glucose >/= 126 [...] interpretive data was last revised 2017. Calcium 8.8 8.5 - 10.3 mg/dL [facility] Phosphorus, pl 3.0 2.3 - 4.5 mg/dL [facility] CH Albumin 3.1(L) 3.5 - 5.0 g/dL [facility] Blood specimen (specimen) 01/18/2021 5:15 AM CDT 01/18/2021 6:01 AM CDT us Jorje Osorio MD LAB BLOOD ORDERABLES Final Res ult [facility] [address] Department [place] [address] * Magnesium (01/18/2021 5:15 AM CDT) Magnesium 1.6 1.4 - 2.5 mg/dL [facility] Blood specimen (specimen) 01/18/2021 5:15 AM CDT 01/18/2021 6:01 AM CDT us Francisco Padilla MD LAB BLOOD ORDERABLES F inal Result JAILYN [address] [facility] Department of Laboratories [place] [id number] * Stress Test for Myocardial Perfusion (01/17/2021 2:48 PM CDT) Anatomical Region Laterality Modality Nuclear Medicine 01/17/2021 12:2 0 PM CDT Narrative 01/17/2021 3:20 [place] [address] MPI Imaging Report Patient Name: MADISON WEINBERG J : 1965 Study Date: 01/17/2021 12:20:00 PM Gender: F Tech: [facility] Location: [id number] Ref.Provider: ANA ELLIS Height(Cm): BSA: Weight(Kg): Order Provider: ANGELA ABDUL Procedures: Pharmacologic SPECT Report.: Myocardial perfusion imaging with Tetrofosmin SPECT at rest and post regadenoson (Lexiscan) infusion. Indications: Chest Pain. Findings: Procedure Data: Resting HR 72 bpm. Predicted Maximal HR 165 bpm. Target HR: 140 bpm. Percent Max Predicted HR Achieved: 55.15 %. Baseline BP: 145/82 mmHg. Peak BP: 144/74 mmHg. Exercise Time: 0.49. Reason for Termination: Lexiscan protocol complete. Resting ECG: Normal resting ECG. Post Pharm ECG: No diagnostic ST changes. Arrhythmia: Rare PVCs. Cardiac Symptoms With Stress: Symptoms with stress were Dyspnea. Symptoms were resolved with rest. Conclusions: 1. Test negative for pharmacologic induced inducible ishemia by electrocardiographic criteria at maximal work load. 2. SPECT to follow and should be correlated with this study. Electronically Signed By: Tony Mosley MD 2021-01-17 15:20:16 CDT Procedure Note Tony Mosley MD - 01/17/2021 [place] [address] MPI Imaging Report Patient Name: MADISON WEINBERG JPatient ID: [id number] : [id number] Date: 01/17/2021 12:20:00 PM Gender: FAccession #: [id number] Tech: MAALocation: [id number] Ref.Provider: Wesley ELLIS(Cm): BSA: Weight(Kg): Order Provider: ANGELA ABDUL Procedures: Pharmacologic SPECT Report.: Myocardial perfusion imaging with Tetrofosmin SPECT at rest and postregadenoson (Lexiscan) infusion. Indications: Chest Pain. Findings: Procedure Data: Resting HR 72 bpm. Predicted Maximal HR 165 bpm. Target HR: 140 bpm.Percent Max Predicted HR Achieved: 55.15 %. Baseline BP: 145/82 mmHg. Peak BP: 144/74mmHg. Exercise Time: 0.49. Reason for Termination: Lexiscan protocol complete. Resting ECG: Normal resting ECG. Post Pharm ECG: No diagnostic ST changes. Arrhythmia: Rare PVCs. Cardiac Symptoms With Stress: Symptoms with stress were Dyspnea. Symptoms were resolved with rest. Conclusions: 1. Test negative for pharmacologic induced inducible ishemia byelectrocardiographic criteria at maximal work load. 2. SPECT to follow and should be correlated with this study. Electronically Signed By: Tony Mosley MD 2021-01-17 15:20:16 CDT us Angela Abdul MD CV STRESS PROCEDURES Final Resul t * TRANSTHORACIC ECHO (TTE) COMPLETE W DOPPLER/CF WO CONTRAST (01/17/2021 9:42 AM CDT) Anatomical Region Laterality Modality Ultrasound 01/17/2021 9:19 AM CDT Narrative 01/17/2021 11:49 [place] [address] Echocardiogram Report Patient Name: MADISON WEINBERG : 1965 Study Date: 01/17/2021 9:19:18 AM Gender: F Tech: NIGEL Location: [id number] Ref.Provider: ANA ELLIS Height(Cm): 165 BSA: 1.44 Weight(Kg): 45 Heart Rate: 69 BP: 132/86 Quality: Good Order Provider: ANGELA ABDUL Procedures: Echocardiographic Report: Transthoracic echocardiogram with complete 2D, M-Mode, and color Doppler examination. Indications: Chest Pain. Measurements: 2D/M Mode ?Doppler ? Measurement ?Value ?Normal Range ? Measurement ?Value ?Normal Range ? EF Teich 2D ?69.8 ? [ 55.0 - 70.0 ] percent ?KANDIS Vmax ? 1.56 ? [ 2.00 - 4.00 ] cm2 ? EF Mod 4C ?67.6 ? [ 55.0 - 70.0 ] percent ?AV Mean PG ? 5 ?[ 2 - 4 ] mmHg ? LVIDd 2D ? 4.51 ? [ 3.90 - 5.30 ] cm ? AV Peak Chuck ?1.58 ? [ 1.00 - 1.70 ] m/s ? LVIDs 2D ? 2.74 ? [ 2.30 - 3.90 ] cm ? AV VTI ? 30.51 ?cm ? LVPWd 2D ? 0.80 ? [ 0.60 - 1.00 ] cm ? LVOT Diam ?1.77 ? [ 1.70 - 2.10 ] cm ? IVSd 2D ?0.51 ? [ 0.60 - 0.90 ] cm ? LVOT Peak Chuck ?1.00 ? [ 0.70 - 1.10 ] m/s ? LA Dimension MM ?2.86 ? [ 2.70 - 3.80 ] cm ? LVOT VTI ? 18.62 ?[ 20.00 - 30.00 ] cm ? AoR Diam MM ?2.60 ? [ 2.60 - 3.70 ] cm ? MV E Peak Chuck ?0.83 ? [ 0.60 - 1.30 ] m/s ? LA Volume Index ?14.06 ?[ 16.00 - 28.00 ] cc/m2 ?MV A Peak Chuck ?0.91 ? [ 1.00 - 1.20 ] m/s ? ACS MM ? 1.43 ? cm ? MV PHT ? 59 ? [ 20 - 100 ] msec ? MVA ?3.70 ? MV Decel Time ?199 ?[ 104 - 258 ] msec ? PV Peak Chuck ?0.84 ? [ 0.40 - 0.80 ] m/s ? TR Peak Chuck ?2.22 ? [ 1.00 - 2.80 ] m/s ? TR Peak PG ? 20 ? mmHg ? RVSP ? 25.00 ?[ 10.00 - 36.00 ] mmHg ? E' ? 0.08 ? E/E' ? 10.92 ? Findings: Atrial Septum: Normal atrial septum. Left Ventricle: Normal left ventricular size. Normal left ventricular systolic function with no focal wall motion abnormalities. Left ventricular wall thickness upper limits of normal. Impaired diastolic relaxation Grade I. Ejection fraction is measured at 70 %. Left Atrium: The left atrium is normal in size. Right Ventricle: Normal right ventricular size. Normal right ventricular systolic function. Right Atrium: The right atrium is normal in size. Aortic Valve: Normal structure of the aortic valve. Mitral Valve: Normal structure of the mitral valve. Trivial regurgitation of the mitral valve. Pulmonic Valve: Normal structure of the pulmonic valve. Tricuspid Valve: Normal structure of the tricuspid valve. Normal right ventricular systolic pressure. Estimated peak RVSP is 25 mmHg. Trivial regurgitation in the tricuspid valve. Pericardium: Normal pericardium with no significant pericardial effusion. Aorta: Normal aortic root. IVC: Normal size and normal respiratory collapse consistent with normal right atrial pressure (<5 mmHg). Pulmonary Artery: Normal pulmonary artery size. Conclusions: Normal left ventricular size. Normal left ventricular systolic function with no focal wall motion abnormalities. Left ventricular wall thickness upper limits of normal. Impaired diastolic relaxation Grade I. Ejection fraction is measured at 70 %. Normal structure of the mitral valve. Trivial regurgitation of the mitral valve. Normal structure of the tricuspid valve. Normal right ventricular systolic pressure. Estimated peak RVSP is 25 mmHg. Trivial regurgitation in the tricuspid valve. Electronically Signed By: Tony Mosley MD 2021-01-17 11:49:07 CDT Procedure Note Tony Mosley MD - 01/17/2021 [place] [address] Echocardiogram Report Patient Name: James WEINBERG ID: [id number] : [id number] Date: 01/17/2021 9:19:18 AM Gender: FAccession #: [id number] Tech: JCLocation: [id number] Ref.Provider: Tasha ELLISight(Cm): 165 BSA: 1.44Weight(Kg): 45 Heart Rate: 69BP: 132/86 Quality: GoodOrder Provider: ANGELA ABDUL Procedures: Echocardiographic Report: Transthoracic echocardiogram with complete 2D, M-Mode, and color Dopplerexamination. Indications: Chest Pain. Measurements: 2D/M Mode Doppler Measurement Value Normal Range MeasurementValue Normal Range EF Teich 2D 69.8 [ 55.0 - 70.0 ] percent KANDIS Vmax1.56 [ 2.00 - 4.00 ] cm2 EF Mod 4C 67.6 [ 55.0 - 70.0 ] percent AV Mean PG 5[ 2 - 4 ] mmHg LVIDd 2D 4.51 [ 3.90 - 5.30 ] cm AV Peak Vel1.58 [ 1.00 - 1.70 ] m/s LVIDs 2D 2.74 [ 2.30 - 3.90 ] cm AV VTI30.51 cm LVPWd 2D 0.80 [ 0.60 - 1.00 ] cm LVOT Diam1.77 [ 1.70 - 2.10 ] cm IVSd 2D 0.51 [ 0.60 - 0.90 ] cm LVOT Peak Vel1.00 [ 0.70 - 1.10 ] m/s LA Dimension MM 2.86 [ 2.70 - 3.80 ] cm LVOT VTI18.62 [ 20.00 - 30.00 ] cm AoR Diam MM 2.60 [ 2.60 - 3.70 ] cm MV E Peak Vel0.83 [ 0.60 - 1.30 ] m/s LA Volume Index 14.06 [ 16.00 - 28.00 ] cc/m2 MV A Peak Vel0.91 [ 1.00 - 1.20 ] m/s ACS MM 1.43 cm MV PHT 59[ 20 - 100 ] msec MVA3.70 MV Decel Jdgd133 [ 104 - 258 ] msec PV Peak Vel0.84 [ 0.40 - 0.80 ] m/s TR Peak Vel2.22 [ 1.00 - 2.80 ] m/s TR Peak PG 20mmHg RVSP25.00 [ 10.00 - 36.00 ] mmHg E'0.08 E/E'10.92 Findings: Atrial Septum: Normal atrial septum. Left Ventricle: Normal left ventricular size. Normal left ventricular systolic functionwith no focal wall motion abnormalities. Left ventricular wall thickness upper limits ofnormal. Impaired diastolic relaxation Grade I. Ejection fraction is measured at 70%. Left Atrium: The left atrium is normal in size. Right Ventricle: Normal right ventricular size. Normal right ventricular systolicfunction. Right Atrium: The right atrium is normal in size. Aortic Valve: Normal structure of the aortic valve. Mitral Valve: Normal structure of the mitral valve. Trivial regurgitation of the mitralvalve. Pulmonic Valve: Normal structure of the pulmonic valve. Tricuspid Valve: Normal structure of the tricuspid valve. Normal right ventricular systolicpressure. Estimated peak RVSP is 25 mmHg. Trivial regurgitation in the tricuspidvalve. Pericardium: Normal pericardium with no significant pericardial effusion. Aorta: Normal aortic root. IVC: Normal size and normal respiratory collapse consistent with normal rightatrial pressure (<5 mmHg). Pulmonary Artery: Normal pulmonary artery size. Conclusions: Normal left ventricular size. Normal left ventricular systolic functionwith no focal wall motion abnormalities. Left ventricular wall thickness upper limits ofnormal. Impaired diastolic relaxation Grade I. Ejection fraction is measured at 70%. Normal structure of the mitral valve. Trivial regurgitation of the mitralvalve. Normal structure of the tricuspid valve. Normal right ventricular systolicpressure. Estimated peak RVSP is 25 mmHg. Trivial regurgitation in the tricuspidvalve. Electronically Signed By: Tony Mosley MD 2021-01-17 11:49:07 CDT us Angela Abdul MD CV ECHO PROCEDURES Final Result * eGFR (01/17/2021 6:39 AM CDT) eGFR 111 mL/min/1.7 3 m2 JAILYN Comment: Interpretive Data Reference Interval Normal ?>/= [...] interpretive data was last reviewed 2020 Blood specimen (specimen) 01/17/2021 6:39 AM CDT 01/17/2021 6:44 AM CDT us Jorje Osorio MD LAB BLOOD ORDERABLES Final Res ult [facility] [address] Department [place] [address] * (ABNORMAL) Renal function panel (01/17/2021 6:39 AM CDT) Sodium 137 135 - 145 mmol/L [facility] CH Potassium, pl 4.0 3.3 - 4.9 mmol/L [facility] CH Comment:Hemolysis present. R esults may be affected. Chloride 104 97 - 110 mmol/L [facility] CH CO2 22 22 - 32 mmol/L [facility] CH Anion gap 11 2 - 15 mmol/L [facility] CH BUN 5(L) 8 - 25 mg/dL [facility] CH Creatinine 0.47(L) 0.60 - 1.10 mg/dL C[facility]ER Glucose 99 70 - 199 mg/dL [facility] Comment: Interpretive Data Fasting glucose >/= [...] interpretive data was last revised 2017. Calcium 8.7 8.5 - 10.3 mg[facility] Phosphorus, pl 2.5 2.3 - 4.5 mg/dL [facility] Albumin 3.2(L) 3.5 - 5.0 g/dL [facility] Blood specimen (specimen) 01/17/2021 6:39 AM CDT 01/17/2021 6:44 AM CDT us Jorje Osorio MD LAB BLOOD ORDERABLES Final Res ult Performing Organization Address [facility] Co de Phone Number JAILYN [address] [employer] [place] [address] * Magnesium (01/17/2021 6:39 AM CDT) Magnesium 1.7 1.4 - 2.5 mg/dL [facility] Blood specimen (specimen) 01/17/2021 6:39 AM CDT 01/17/2021 6:44 AM CDT Francisco Padilla MD LAB BLOOD ORDERABLES F inal Result Performing Organization Address [facility] Co de Phone Number JAILYN TRAN [address] Department [place] [address] * Stress Test for Myocardial Perfusion (01/16/2021 2:53 PM CDT) Anatomical Region Laterality Modality Nuclear Medicine 01/16/2021 12:4 1 PM CDT Narrative 01/16/2021 12:55 [place] [address] MPI Imaging Report ADDENDUM Patient Name: MADISON WEINBERG : 1965 Study Date: 01/16/2021 12:41:39 PM Gender: F Tech: ELMER Location: [id number] Ref.Provider: ANA ELLIS Height(Cm): BSA: Weight(Kg): Heart Rate: 140 Order Provider: ANGELA ABDUL Procedures: Pharmacologic SPECT Report.: Myocardial perfusion imaging with Tetrofosmin SPECT at rest and post regadenoson (Lexiscan) infusion. Indications: Chest Pain. Findings: Procedure Data: Resting HR 72 bpm. Peak HR: 124 bpm. Predicted Maximal HR 165 bpm. Target HR: 140 bpm. Percent Max Predicted HR Achieved: 75.15 %. Baseline BP: 156/87 mmHg. Peak BP: 148/63 mmHg. Exercise Time: 00:38. Reason for Termination: Lexiscan protocol complete. Resting ECG: Normal sinus rhythm. Post Pharm ECG: No diagnostic ST changes. Arrhythmia: No arrhythmias seen. Cardiac Symptoms With Stress: Symptoms with stress were Dyspnea. Symptoms were resolved with rest. BP Response: Blood pressure response is appropriate. Conclusions: 1. Test negative for pharmacologic induced inducible ishemia by electrocardiographic criteria at maximal work load. 2. SPECT to follow and should be correlated with this study. Electronically Signed By: Harper Feliciano DO, MATIAS, NEREIDA BRADSHAW 2021-01-17 10:00:36 CDT CC: CC: Procedure Note Harper Feliciano DO - 01/17/[address] [address] MPI Imaging Report ADDENDUM Patient Name: Yvette WEINBERGtient ID: [id number] : [id number] Date: 01/16/2021 12:41:39 PM Gender: FAccession #: [id number] Tech: MAALocation: [id number] Ref.Provider: Wesley ELLIS(Cm): BSA: Weight(Kg): Heart Rate: 140Order Provider: ANGELA ABDUL Procedures: Pharmacologic SPECT Report.: Myocardial perfusion imaging with Tetrofosmin SPECT at rest and postregadenoson (Lexiscan) infusion. Indications: Chest Pain. Findings: Procedure Data: Resting HR 72 bpm. Peak HR: 124 bpm. Predicted Maximal HR 165 bpm. TargetHR: 140 bpm. Percent Max Predicted HR Achieved: 75.15 %. Baseline BP: 156/87 mmHg. PeakBP: 148/63 mmHg. Exercise Time: 00:38. Reason for Termination: Lexiscan protocol complete. Resting ECG: Normal sinus rhythm. Post Pharm ECG: No diagnostic ST changes. Arrhythmia: No arrhythmias seen. Cardiac Symptoms With Stress: Symptoms with stress were Dyspnea. Symptoms were resolved with rest. BP Response: Blood pressure response is appropriate. Conclusions: 1. Test negative for pharmacologic induced inducible ishemia byelectrocardiographic criteria at maximal work load. 2. SPECT to follow and should be correlated with this study. Electronically Signed By: Harper Feliciano DO, MATIAS, LEEANN, NEREIDA 2021-01-17 10:00:36 CDT CC: CC: Angela Abdul MD CV STRESS PROCEDURES Edited Resu lt - Final * NM MPI SPECT (Rest and/or Stress) Multiple Studies (01/16/2021 2:53 PM CDT) Anatomical Region Laterality Modality Body N/A Nuclear Medicine 01/17/2021 2:37 PM CDT Impressions 01/17/2021 3:54 PM CDT 1. ??Normal pharmacologic-stress and rest myocardial perfusion. 2. ??Normal left ventricular size and systolic function. Dictated by: Reji Romero M.D. The radiology attending physician has personally reviewed this study, and had reviewed and/or edited this written report and agrees with it. Electronically signed by: Vilma Lamb M.D. Narrative 01/17/2021 3:54 PM CDT EXAMINATION: MYOCARDIAL IMAGING (PHARMACOLOGIC-STRESS AND REST/SPECT/CT) DATE OF STUDY: 01/16/2021 RADIOPHARMACEUTICAL: 10.1 mCi, 27.4 mCi ??Tc-99m tetrofosmin i.v. HISTORY: 55 year old female with a history of hepatitis, renal disease, DVT, hyperlipemia presenting with chest pain. ?Evaluate for ??ischemia and/or myocardial infarction. ??The patient's body mass index (BMI) was 16. ??The electrocardiogram during infusion of the pharmacologic agent was negative for ischemia. FINDINGS: Both stress and rest imaging were performed, in the following order: rest/stress Stress imaging: An intravenous infusion of Regadenoson (0.4 mg of A2A adenosine receptor agonist Regadenoson (Lexiscan), infused intravenously over approximately 10 seconds, followed approximately after another 20 seconds by tracer infusion) was performed without low level exercise on the date indicated above. ??A complete description of the stress test and electrocardiographic results supervised by staff of the Cardiovascular Division is available in the [facility] electronic medical record. Standard myocardial perfusion images were obtained after tracer injection at the peak effect of the drug. ??Low-dose CT images spanning the heart were obtained for attenuation correction. Rest Imaging: Standard myocardial perfusion images were obtained after resting tracer injection. ??Low-dose CT images spanning the heart were obtained for attenuation correction. COMPARISON: None available. The stress images were repeated as on initial images there was motion artefact in the anteroseptal wall. The repeat stress images on the following day were reviewed for image quality, and reveal no significant artifacts. There is normal distribution of activity in the left and right ventricular myocardium on both stress and rest images. Gated post-stress images demonstrate normal left ventricular volume, normal left ventricular wall motion and ??normal ??ejection fraction of >70% % (normal >45%). ?Additional gated rest images demonstrate normal left ventricular wall motion and a resting left ventricular ejection fraction of 64%. Incidental findings on the low-dose CT images: mild aortic atherosclerosis, small area of fatty infiltration in the liver. Procedure Note Vilma Sheth MD - 01/17/2021 EXAMINATION: MYOCARDIAL IMAGING (PHARMACOLOGIC-STRESS AND REST/SPECT/CT) DATE OF STUDY: 01/16/2021 RADIOPHARMACEUTICAL: 10.1 mCi, 27.4 mCi Tc-99m tetrofosmin i.v. HISTORY: 55 year old female with a history of hepatitis, renal disease, DVT, hyperlipemia presenting with chest pain. Evaluate for ischemia and/or myocardial infarction. The patient's body mass index (BMI) was 16. The electrocardiogram during infusion of the pharmacologic agent was negative for ischemia. FINDINGS: Both stress and rest imaging were performed, in the following order: rest/stress Stress imaging: An intravenous infusion of Regadenoson (0.4 mg of A2A adenosine receptor agonist Regadenoson (Lexiscan), infused intravenously over approximately 10 seconds, followed approximately after another 20 seconds by tracer infusion) was performed without low level exercise on the date indicated above. A complete description of the stress test and electrocardiographic results supervised by staff of the Cardiovascular Division is available in the [facility] electronic medical record. Standard myocardial perfusion images were obtained after tracer injection at the peak effect of the drug. Low-dose CT images spanning the heart were obtained for attenuation correction. Rest Imaging: Standard myocardial perfusion images were obtained after resting tracer injection. Low-dose CT images spanning the heart were obtained for attenuation correction. COMPARISON: None available. The stress images were repeated as on initial images there was motion artefact in the anteroseptal wall. The repeat stress images on the following day were reviewed for image quality, and reveal no significant artifacts. There is normal distribution of activity in the left and right ventricular myocardium on both stress and rest images. Gated post-stress images demonstrate normal left ventricular volume, normal left ventricular wall motion and normal ejection fraction of >70% % (normal >45%). Additional gated rest images demonstrate normal left ventricular wall motion and a resting left ventricular ejection fraction of 64%. Incidental findings on the low-dose CT images: mild aortic atherosclerosis, small area of fatty infiltration in the liver. IMPRESSION: 1. Normal pharmacologic-stress and rest myocardial perfusion. 2. Normal left ventricular size and systolic function. Dictated by: Reji Romero M.D. The radiology attending physician has personally reviewed this study, and had reviewed and/or edited this written report and agrees with it. Electronically signed by: Vilma Lamb M.D. us Angela Abdul MD [facility] PROCEDURES Final Result * US Retroperitoneal Complete (01/16/2021 2:32 PM CDT) Anatomical Region Laterality Modality Abdomen N/A Ultrasound 01/16/2021 2:47 PM CDT Impressions 01/16/2021 2:47 PM CDT Slight increase in renal cortical echogenicity bilaterally, consistent with some degree of chronic renal parenchymal disease. Electronically signed by: Rakesh Palacio M.D. Narrative 01/16/2021 2:47 PM CDT EXAMINATION: US RETROPERITONEAL COMPLETE HISTORY: The patient is a 55-year-old female who presents with acute renal failure. TECHNIQUE: Transverse and sagittal images were obtained along with color Doppler imaging. FINDINGS: The right kidney measures 9.2 x 4.2 x 3.8 cm and the left kidney measures 8.9 x 4.7 x 5.4 cm in size. No hydronephrosis or perinephric fluid collection. ??There is a tiny calculus in the left kidney which is not causing obstruction. Renal cortical thickness is normal. ??There is slight increase in renal cortical echogenicity. The urinary bladder was not visualized and cannot be commented on. Procedure Note Rakesh Palacio MD - 01/16/2021 EXAMINATION: US RETROPERITONEAL COMPLETE HISTORY: The patient is a 55-year-old female who presents with acute renal failure. TECHNIQUE: Transverse and sagittal images were obtained along with color Doppler imaging. FINDINGS: The right kidney measures 9.2 x 4.2 x 3.8 cm and the left kidney measures 8.9 x 4.7 x 5.4 cm in size. No hydronephrosis or perinephric fluid collection. There is a tiny calculus in the left kidney which is not causing obstruction. Renal cortical thickness is normal. There is slight increase in renal cortical echogenicity. The urinary bladder was not visualized and cannot be commented on. IMPRESSION: Slight increase in renal cortical echogenicity bilaterally, consistent with some degree of chronic renal parenchymal disease. Electronically signed by: Rakesh Palacio M.D. us Jorje Osorio MD IM US PROCEDURES Final Result * eGFR (01/16/2021 5:59 AM CDT) eGFR 110 mL/min/1.7 3 m2 [facility] Comment: Interpretive Data Reference Interval Normal [...] interpretive data was last reviewed 2020 Blood specimen (specimen) 01/16/2021 5:59 AM CDT 01/16/2021 6:44 AM CDT us Francisco Padilla MD LAB BLOOD ORDERABLES F inal Result JAILYN [id number] Department [place] [address] * (ABNORMAL) Differential, auto (01/16/2021 5:59 AM CDT) Pathologist [facility] [place] Neutrophil abs 8.4(H) 1.7 - 6.5 K/cumm [facility] Imm gran abs 0.1 0.0 - 0.1 K/cumm [facility] Lymphocyte abs 1.1 0.8 - 3.3 K/cumm [facility] Monocyte abs 0.6 0.2 - 0.8 K/cumm [facility] Eosinophil abs 0.3 0.0 - 0.5 K/cumm [facility] Basophil abs 0.1 0.0 - 0.1 K/cumm [facility] Neutrophil pct 79.9 % [facility] Comment: Interpretive Data Percent cell count reference ranges are not reported, since discordance with absolute values may lead to misinterpretation of CBC data. Current Interpretive Data was last revised on 2017. Imm gran pct 0.5 % [facility] Comment: Interpretive Data Percent cell count reference ranges are not reported, since discordance with absolute values may lead to misinterpretation of CBC data. Current Interpretive Data was last revised on 2017. Lymphocyte pct 10.6 % [facility] Comment: Interpretive Data Percent cell count reference ranges are not reported, since discordance with absolute values may lead to misinterpretation of CBC data. Current Interpretive Data was last revised on 2017. Monocyte pct 5.5 % [facility] Comment: Interpretive Data Percent cell count reference ranges are not reported, since discordance with absolute values may lead to misinterpretation of CBC data. Current Interpretive Data was last revised on 2017. Eosinophil pct 3.0 % [facility] Comment: Interpretive Data Percent cell count reference ranges are not reported, since discordance with absolute values may lead to misinterpretation of CBC data. Current Interpretive Data was last revised on 2017. Basophil pct 0.5 % [facility] Comment: Interpretive Data Percent cell count reference ranges are not reported, since discordance with absolute values may lead to misinterpretation of CBC data. Current Interpretive Data was last revised on 2017. Blood specimen (specimen) 01/16/2021 5:59 AM CDT 01/16/2021 6:45 AM CDT us Francisco Padilla MD LAB BLOOD ORDERABLES F inal Result JAILYN TRAN [address] Department [place] [address] * (ABNORMAL) Phosphorus (01/16/2021 5:59 AM CDT) Phosphorus, pl 1.7(L) 2.3 - 4.5 mg/dL [facility] Blood specimen (specimen) 01/16/2021 5:59 AM CDT 01/16/2021 6:44 AM CDT Francisco Padilla MD LAB BLOOD ORDERABLES F inal Result Performing Organization Address [facility] de Phone Number [facility] [address] [address] [facility] [place] [address] * Magnesium (01/16/2021 5:59 AM CDT) Magnesium 1.8 1.4 - 2.5 mg/dL [facility] Blood specimen (specimen) 01/16/2021 5:59 AM CDT 01/16/2021 6:44 AM CDT Francisco Padilla MD LAB BLOOD ORDERABLES F inal Result Performing Organization Address [facility] de Phone Number [facility] [address] [place] [address] * (ABNORMAL) Comprehensive metabolic panel (01/16/2021 5:59 AM CDT) Pathologist [facility] [place] Sodium 137 135 - 145 mmol/L [facility] Potassium, pl 3.2(L) 3.3 - 4.9 mmol/L [facility] Chloride 106 97 - 110 mmol/L [facility] CO2 20(L) 22 - 32 mmol/L [facility] Anion gap 11 2 - 15 mmol/L [facility] BUN 9 8 - 25 mg/dL [facility] Creatinine 0.49(L) 0.60 - 1.10 mg/dL [facility] Glucose 92 70 - 199 mg/dL [facility] Comment: Interpretive Data Fasting glucose >/= [...] interpretive data was last revised 2017. Calcium 8.3(L) 8.5 - 10.3 mg/dL [facility] Bilirubin, total 0.2 0.1 - 1.2 mg/dL [facility] Protein, pl 5.6(L) 6.5 - 8.5 g/dL [facility] Albumin 2.8(L) 3.5 - 5.0 g/dL [facility] Alk phos 105 40 - 130 Units/L [facility] ALT 27 7 - 45 Units/L [facility] AST 22 10 - 45 Units/L [facility] Blood specimen (specimen) 01/16/2021 5:59 AM CDT 01/16/2021 6:44 AM CDT us Francisco Padilla MD LAB BLOOD ORDERABLES F inal Result [facility] [address] Department [place] [address] * (ABNORMAL) CBC with auto differential (01/16/2021 5:59 AM CDT) WBC 10.5(H) 3.8 - 9.9 K/cumm [facility] Hgb 10.5(L) 11.9 - 15.5 g/dL [facility] Hct 32.6(L) 35.6 - 45.5 % [facility] Plt 324 150 - 400 K/cumm [facility] MPV 9.9 9.1 - 12.3 fL [facility] RBC 3.48(L) 3.90 - 5.20 M/cumm [facility] MCV 93.7 81.3 - 96.4 fL [facility] MCH 30.2 27.1 - 33.3 pg [facility] MCHC 32.2(L) 32.3 - 35.7 g/dL [facility] RDW CV 12.8 11.1 - 14.9 % [facility] RDW SD 43.9 35.7 - 48.1 fL [facility] NRBC abs 0.00 0.00 - 0.01 K/cumm [facility] Blood specimen (specimen) 01/16/2021 5:59 AM CDT 01/16/2021 6:45 AM CDT rFancisco Padilla MD LAB BLOOD ORDERABLES F inal Result Performing Organization Address [facility] Co de Phone Number [facility] [phone] Department [place] [address] * ECG 12 lead (01/15/2021 10:05 AM CDT) 01/15/2021 10:0 5 AM CDT Narrative [facility] - 01/15/2021 10:48 AM CDT Vent Rate: 62 bpm RR Interval: 957 msec RI Interval: 142 msec QRS Duration: 88 msec QT Interval: 456 msec QTC Interval: 462 msec P-R-T [place]: 52 - 60 - 72 degrees SINUS RHYTHM NORMAL ECG Electronically Signed By: Dr. Con Hughes [facility] Angela Abdul MD ECG ORDERABLES Final Result Performing Organization Address [facility] de Phone Number [facility] [employer] [facility] * eGFR (01/15/2021 9:07 AM CDT) eGFR 103 mL/min/1.7 3 m2 [facility] Comment: Interpretive Data Reference Interval Normal ?>/= [...] interpretive data was last reviewed 2020 Blood specimen (specimen) 01/15/2021 9:07 AM CDT 01/15/2021 10:05 AM CDT us Francisco Padilla MD LAB BLOOD ORDERABLES F inal Result JAILYN [address] Department [place] [address] * (ABNORMAL) Differential, auto (01/15/2021 9:07 AM CDT) Neutrophil abs 8.2(H) 1.7 - 6.5 K/cumm [facility] Imm gran abs 0.0 0.0 - 0.1 K/cumm [facility] Lymphocyte abs 0.8 0.8 - 3.3 K/cumm [facility] Monocyte abs 0.5 0.2 - 0.8 K/cumm [facility] Eosinophil abs 0.2 0.0 - 0.5 K/cumm [facility] Basophil abs 0.0 0.0 - 0.1 K/cumm [facility] Neutrophil pct 83.4 % [facility] Comment: Interpretive Data Percent cell count reference ranges are not reported, since discordance with absolute values may lead to misinterpretation of CBC data. Current Interpretive Data was last revised on 2017. Imm gran pct 0.4 % [facility] Comment: Interpretive Data Percent cell count reference ranges are not reported, since discordance with absolute values may lead to misinterpretation of CBC data. Current Interpretive Data was last revised on 2017. Lymphocyte pct 8.3 % [facility] Comment: Interpretive Data Percent cell count reference ranges are not reported, since discordance with absolute values may lead to misinterpretation of CBC data. Current Interpretive Data was last revised on 2017. Monocyte pct 5.4 % [facility] Comment: Interpretive Data Percent cell count reference ranges are not reported, since discordance with absolute values may lead to misinterpretation of CBC data. Current Interpretive Data was last revised on 2017. Eosinophil pct 2.2 % [facility] Comment: Interpretive Data Percent cell count reference ranges are not reported, since discordance with absolute values may lead to misinterpretation of CBC data. Current Interpretive Data was last revised on 2017. Basophil pct 0.3 % [facility] Comment: Interpretive Data Percent cell count reference ranges are not reported, since discordance with absolute values may lead to misinterpretation of CBC data. Current Interpretive Data was last revised on 2017. Blood specimen (specimen) 01/15/2021 9:07 AM CDT 01/15/2021 10:07 AM CDT Francisco Padilla MD LAB BLOOD ORDERABLES F inal Result Performing Organization Address [facility] Co de Phone Number [facility] [address] [place] [address] * (ABNORMAL) Phosphorus (01/15/2021 9:07 AM CDT) Phosphorus, pl 1.5(L) 2.3 - 4.5 mg/dL [facility] Blood specimen (specimen) 01/15/2021 9:07 AM CDT 01/15/2021 10:05 AM CDT Francisco Padilla MD LAB BLOOD ORDERABLES F inal Result Performing Organization Address [facility] Co de Phone Number [facility] [address] [employer] [place], [place] [id number] * (ABNORMAL) Lipid panel (01/15/2021 9:07 AM CDT) Cholesterol 94 30 - 199 mg/dL [facility] Comment: Interpretive Data Ages < or = 19 years ??Acceptable: ? <170 mg/dL ??Borderline high: ??170-199 mg/dL ??High: ? >or= 200 mg/dL Ages > or = 20 years ??Desirable: ?<200 mg/dL ??Borderline high: ??200-239 mg/dL ??High: ? >or= 240 mg/dL Literature References: 1. Expert Panel on Integrated Guidelines for Cardiovascular Health and Risk Reduction in Children and Adolescents. Pediatrics 2011;128:S213 2. NCEP Expert Panel. Circulation 2004;110:227 Current Interpretive Data was last revised on 2018. Triglycerides 80 <=149 mg/dL JAIL[facility] TRAN Comment: Interpretive Data Ages < or = 9 years ??Acceptable: ? <75 mg/dL ??Borderline high: ??75-99 mg/dL ??High: ? >or= 100 mg/dL Ages 10 to 20 years ??Acceptable: ? <90 mg/dL ??Borderline high: ??90-129 mg/dL ??High: ? >or= 130 mg/dL Ages > or = 20 years ??Desirable: ?<150 mg/dL ??Borderline high: ??150-199 mg/dL ??High: ? 200-499 mg/dL ?Very high: ?? >or= 499 mg/dL Literature References: 1. Expert Panel on Integrated Guidelines for Cardiovascular Health and Risk Reduction in Children and Adolescents. Pediatrics 2011;128:S213 2. NCEP Expert Panel. Circulation 2004;110:227 Current Interpretive Data was last revised on 2018. HDL 30(L) >=40 mg/dL [facility] TRAN Comment: Interpretive Data Ages < or = 19 years ??Acceptable: ? >45 mg/dL ??Borderline low: ?? 40-45 mg/dL ??Low: ? <40 mg/dL Ages > or = 20 years ??Desirable: ?>or= 60 mg/dL ??Low: ? <40 mg/dL Literature References: 1. Expert Panel on Integrated Guidelines for Cardiovascular Health and Risk Reduction in Children and Adolescents. Pediatrics 2011;128:S213 2. NCEP Expert Panel. Circulation 2004;110:227 Current Interpretive Data was last revised on 2018. LDL, calculated 48 <=129 mg/dL [facility] TRAN Comment: Interpretive Data Ages < or = 19 years ??Acceptable: ? <110 mg/dL ??Borderline high: ??110-129 mg/dL ??High: ?>or= 130 mg/dL Ages > or = 20 years ??Optimal: ? <100 mg/dL ??Near optimal: ?100-129 mg/dL ??Borderline high: ?? 130-159 mg/dL ??High: ?>160 mg/dL Literature References: 1. Expert Panel on Integrated Guidelines for Cardiovascular Health and Risk Reduction in Children and Adolescents. Pediatrics 2011;128:S213 2. NCEP Expert Panel. Circulation 2004;110:227 Current Interpretive Data was last revised on 2018. Non-HDL Cholesterol 64 mg/dL JAIL[facility] Comment: Interpretive Data Ages < or = 19 years ??Acceptable: ?<120 mg/dL ??Borderline high: ??120-144 mg/dL ??High: ?>145 mg/dL Ages > or = 20 years ??When triglycerides are >200 mg/dL, Non-HDL cholesterol is a secondary target of ? therapy with treatment goals that are 30 mg/dL greater than the LDL cholesterol target. ? Literature References: 1. Expert Panel on Integrated Guidelines for Cardiovascular Health and Risk Reduction in Children and Adolescents. Pediatrics 2011;128:S213 2. NCEP Expert Panel. Circulation 2004;110:227 Current Interpretive Data was last revised on 2018. Chol/HDL ratio 3 JAIL[facility] Blood specimen (specimen) 01/15/2021 9:07 AM CDT 01/15/2021 10:07 AM CDT Angela Abdul MD LAB BLOOD ORDERABLES Final Resul t JAILYN [address] Department [place] [address] * Magnesium (01/15/2021 9:07 AM CDT) Magnesium 1.9 1.4 - 2.5 mg/dL [facility] Blood specimen (specimen) 01/15/2021 9:07 AM CDT 01/15/2021 10:05 AM CDT Francisco Padilla MD LAB BLOOD ORDERABLES F inal Result Performing Organization Address [facility] Co de Phone Number JAILYN TRAN [address] [place] [address] * (ABNORMAL) Comprehensive metabolic panel (01/15/2021 9:07 AM CDT) Pathologist [facility] [place] Sodium 137 135 - 145 mmol/L [facility] Potassium, pl 3.3 3.3 - 4.9 mmol/L [facility] Chloride 108 97 - 110 mmol/L [facility] CO2 20(L) 22 - 32 mmol/L [facility] Anion gap 9 2 - 15 mmol/L [facility] BUN 12 8 - 25 mg/dL [facility] Creatinine 0.59(L) 0.60 - 1.10 mg/dL [facility] Glucose 96 70 - 199 mg/dL [facility] Comment: Interpretive Data Fasting glucose >/= [...] interpretive data was last revised 2017. Calcium 8.5 8.5 - 10.3 mg/dL [facility] Bilirubin, total 0.2 0.1 - 1.2 mg/dL [facility] Protein, pl 5.7(L) 6.5 - 8.5 g/dL [facility] Albumin 2.9(L) 3.5 - 5.0 g/dL [facility] Alk phos 130 40 - 130 Units/L [facility] ALT 32 7 - 45 Units/L [facility] AST 31 10 - 45 Units/L [facility] Blood specimen (specimen) 01/15/2021 9:07 AM CDT 01/15/2021 10:05 AM CDT Francisco Padilla MD LAB BLOOD ORDERABLES F inal Result JAILYN [address] Department [place] [address] * (ABNORMAL) CBC with auto differential (01/15/2021 9:07 AM CDT) WBC 9.8 3.8 - 9.9 K/cumm [facility] Hgb 10.0(L) 11.9 - 15.5 g/dL [facility] Hct 30.6(L) 35.6 - 45.5 % [facility] Plt 336 150 - 400 K/cumm [facility] MPV 9.9 9.1 - 12.3 fL [facility] RBC 3.28(L) 3.90 - 5.20 M/cumm [facility] MCV 93.3 81.3 - 96.4 fL [facility] MCH 30.5 27.1 - 33.3 pg [facility] MCHC 32.7 32.3 - 35.7 g/dL [facility] RDW CV 12.8 11.1 - 14.9 % [facility] RDW SD 43.8 35.7 - 48.1 fL [facility] NRBC abs 0.00 0.00 - 0.01 K/cumm [facility] Blood specimen (specimen) 01/15/2021 9:07 AM CDT 01/15/2021 10:07 AM CDT Francisco Padilla MD LAB BLOOD ORDERABLES F inal Result Performing Organization Address [facility]/ZIP Co de Phone Number LINDAREY MARC [address] Department [place] [address] * Urine culture Urine (01/14/2021 4:49 PM CDT) Report Final Report: Less than 100,000 colonies/mL (clinically insignificant growth based on current clinical standards) [facility] Comment:Testing performed by : [facility], [address] [place]., [address] Organism (CLINICALLY INSIGNIFICANT GROWTH [facility] Urine 01/14/2021 4:49 PM CDT 01/14/2021 10:36 PM CDT Narrative [facility] - 01/16/2021 11:42 AM CDT Urine culture reflexed based upon urinalysis results. Testing performed by [facility] Microbiology Laboratory ([phone]) Jorje Osorio MD LAB MICROBIOLOGY - GENERAL ORD ERABLES Final Result Performing Organization Address [facility] Co de Phone Number JAILYN TRAN [address] [employer] [place], [place] [id number] * (ABNORMAL) Urinalysis, microscopic only (01/14/2021 4:49 PM CDT) WBC, ur >50(A) 0 - 5 /HPF [facility] RBC, ur 21-50(A) 0 - 2 /HPF [facility] Epithelial cells, squamous, ur 1-5 0 - 5 /HPF [facility] Mucous, ur Present(A) [facility] Hyaline casts, ur 6-10 0 - 10 /LPF [facility] Culture Reflex Comment Reflex to urine culture will be performed. [facility] Urine 01/14/2021 4:49 PM CDT 01/14/2021 4:57 PM CDT Jorje Osorio MD LAB URINE ORDERABLES Final Res ult Performing Organization Address [facility]/ZIP Co de Phone Number JAILYN TRAN [address] Department of Laboratories [place] [phone] * Sodium, urine, random (01/14/2021 4:49 PM CDT) Sodium, ur 43 mmol/L [facility] Comment: Interpretive Data No reference range established. Current interpretive data was last revised 2018. Urine 01/14/2021 4:49 PM CDT 01/14/2021 4:57 PM CDT us Jorje Osorio MD LAB URINE ORDERABLES Final Res ult [facility] [address] Department [place] [address] * (ABNORMAL) Urinalysis reflex to microscopic and culture Urine (01/14/2021 4:49 PM CDT) Color, ur Yellow Yellow [facility] Clarity, ur Cloudy(A) Clear [facility] Specific gravity, ur 1.021 1.010 - 1.025 [facility] pH, urine 6.0 [facility] Protein, ur ql 1+(A) Negative [facility] Glucose, ur ql Negative Negative [facility] Ketones, ur Negative Negative [facility] Bilirubin, ur Negative Negative [facility] Blood, ur 2+(A) Negative [facility] Urobilinogen, ur <2.0 <2.0 mg/dL [facility] Nitrite, ur Negative Negative [facility] Leukocyte esterase, ur 4+(A) Negative [facility] UA reflex comment Reflex to microscopic UA will be performed. [facility] Urine 01/14/2021 4:49 PM CDT 01/14/2021 4:57 PM CDT Narrative [facility] - 01/14/2021 5:06 PM CDT ?? Urine pH is affected by diet, medications, systemic acid-base disturbances, and renal tubular function. ??pH may affect urinary stone formation. ??For example, urine pH below 6.0 may help reduce the tendency for calcium phosphate stones and pH greater than 6.0 may reduce the tendency for uric acid stone formation. Source: [employer]. Last revised 08-22-2017 Jorje Osorio MD LAB MICROBIOLOGY - GENERAL ORD ERABLES Final Result Performing Organization Address [facility] Co de Phone Number JAILYN [address] [address] [facility] [place] [address] * (ABNORMAL) Protein / creatinine ratio, urine, random (01/14/2021 4:49 PM CDT) Protein, ur, quant 65.6 mg/dL [facility] Comment: Interpretive Data No reference range established. Current interpretive data was last revised 2018. Creatinine Ur 177.1 mg/dL [facility] Comment: Interpretive Data No reference range established. Current interpretive data was last revised 2018. Protein/creatinin e ratio 370.4(H) 0.0 - 180.0 mg/g CR [facility] Urine 01/14/2021 4:49 PM CDT 01/14/2021 4:57 PM CDT Jorje Osorio MD LAB URINE ORDERABLES Final Res ult Performing Organization Address [facility] Co de Phone Number JAILYN [address] [facility] [place] [address] * (ABNORMAL) Drugs of Abuse Screen, Urine without Confirmation (01/14/2021 4:49 PM CDT) Amphetamine, ur Detected(A) CutOff 500ng/mL [facility] Comment: Interpretive Data - Amphetamines: ??Samples containing greater than 500 ng/mL d-methamphetamine ??or other cross-reacting amphetamine compounds are reported as positive. ??Amphetamine immunoassays are subject to significant false positive rates due to cross-reactivity of non-amphetamine drugs. Current Interpretive Data was last reviewed 2018. Barbiturates, ur Not Detected CutOff 200ng/mL [facility] Comment: Interpretive Data - Barbiturates: ??Samples containing greater than 200 ng/mL secobarbital or other cross-reacting barbiturate compounds are reported as positive. ??False positive and false negative results are possible. Current Interpretive Data was last reviewed 2018. Benzodiazepines, ur Not Detected CutOff 100ng/mL [facility] Comment: Interpretive Data - Benzodiazepines: ??Samples containing greater than 100 ng/mL nordiazepam or other cross-reacting compounds are reported as positive. ?? False positive and false negative results are possible. ?? Current Interpretive Data was last reviewed 2018. Cannabinoids, ur Detected(A) CutOff 50 ng/mL [facility] Comment: Interpretive Data - Cannabinoids: ??Samples containing greater than 50 ng/mL delta-9 THC -COOH or other cross-reacting compounds are reported as positive. ??False positive and false negative results are possible. ?? Current Interpretive Data was last reviewed 2018. Cocaine, ur Not Detected CutOff 150ng/mL [facility] Comment: Interpretive Data - Cocaine: ??Samples containing greater than 150 ng/mL benzoylecgonine or other cross-reacting compounds are reported as positive. False positive and false negative results are possible. Current Interpretive Data was last reviewed 2018. Fentanyl, Ur Not Detected Cutoff 1 ng/mL [facility] Comment: Interpretive Data - Fentanyls: ??Samples containing greater than 1 ng/mL fentanyl or other cross-reacting fentanyl compounds are reported as detected. ??False positive and false negative results are possible. Current Interpretive Data was last reviewed 2019. Methadone, ur Not Detected CutOff 300ng/mL [facility] Comment: Interpretive Data - Methadone: ??Samples containing greater than 300 ng/mL d,l-methadone or other cross-reacting compounds are reported as positive. ??False positive and false negative results are possible. Current Interpretive Data was last reviewed 2018. Opiates, ur Not Detected CutOff 300ng/mL [facility] Comment: Interpretive Data - Opiates: ??Samples containing greater than 300 ng/mL morphine or other cross-reacting compounds are reported as positive. ??False positive and false negative results are possible. Current Interpretive Data was last reviewed 2018. Oxycodone, ur Not Detected CutOff 100ng/mL [facility] Comment: Interpretive Data - Oxycodone: ??Samples containing greater than 100 ng/mL oxycodone or other cross-reacting compounds are reported as positive. ??False positive and false negative results are possible. ?? Current Interpretive Data was last reviewed 2018. Phencyclidine, ur Not Detected CutOff 25 ng/mL [facility] Comment: Interpretive Data - Phencyclidine: ??Samples containing greater than 25 ng/mL phencyclidine or other cross-reacting compounds are reported as positive. ??False positive and false negative results are possible. ?? Current Interpretive Data was last reviewed 2018. Urine Creatinine 187 mg/dL [facility] Comment: Interpretive Data Urine Creatinine: < 10 mg/dL is extremely dilute = or > 10 but < 20 mg/dL is dilute = or > 20 mg/dL is normal Current Interpretive Data was last revised on 2017. Urine 01/14/2021 4:49 PM CDT 01/15/2021 6:36 AM CDT Narrative [facility] - 01/15/2021 9:31 AM CDT Drug of Abuse screening is performed by immunoassay for medical purposes only. ??This is not to be used for Pain Management purposes. Francisco Padilla MD LAB URINE ORDERABLES F inal Result [facility] [address] Department [place] [address] * ELDA qualitative with reflex to ELDA Quantitative (01/14/2021 3:33 PM CDT) ELDA Negative Negative JAILYN Comment: Interpretive Data Normal range for ELDA Qualitative Antibody = Negative. 1. ELDA is performed using indirect immunofluorescence against HEp-2 ?? cells 2. ELDA titers are performed on all positive qualitative results. 3. A significantly positive ELDA result is defined as a positive nuclear ?? fluorescence at a titer of 1:80 or greater. 4. 15% of normal people above age 65 have significantly positive ?? ELDA results. ??5% or less of normal people age 65 or under have ?? significantly positive ELDA results. Current interpretive data was last revised on 20. Blood specimen (specimen) 01/14/2021 3:33 PM CDT 01/14/2021 3:44 PM CDT us Jorje Osorio MD LAB BLOOD ORDERABLES Final Res ult Performing Organization Address [facility] Co de Phone Number JAILYN TRAN [address] [facility] [place] [address] * C4 complement (01/14/2021 3:33 PM CDT) Complement C4 31 10 - 40 mg/dL CERNER Blood specimen (specimen) 01/14/2021 3:33 PM CDT 01/14/2021 3:43 PM CDT Jorje Osorio MD LAB BLOOD ORDERABLES Final Res ult Performing Organization Address [facility] Co de Phone Number JAILYN TRAN [address] [facility] [place] [address] * C3 complement (01/14/2021 3:33 PM CDT) Complement C3 122 90 - 180 mg/dL [facility] Blood specimen (specimen) 01/14/2021 3:33 PM CDT 01/14/2021 3:43 PM CDT Jorje Osorio MD LAB BLOOD ORDERABLES Final Res ult Performing Organization Address [facility] de Phone Number JAILYN TRAN [address] [place] [address] * ANCA (01/14/2021 3:33 PM CDT) C-ANCA Negative Negative CERNER P-ANCA Negative Negative [facility] Comment: Negative for cANCA and pANCA patterns by immunofluorescence. ADDITIONAL INFORMATION This test was developed and its performance characteristics determined by [facility] in a manner consistent with CLIA requirements. This test has not been cleared or approved by the U.S. Food and Drug Administration. Test Performed by: [facility] [address] [place] [id number] Color Worker: Peter Hernandes M.D. Ph.D.; [facility]# [id number] Blood specimen (specimen) 01/14/2021 3:33 PM CDT 01/14/2021 3:44 PM CDT Jorje Osorio MD LAB BLOOD ORDERABLES Final Res ult Performing Organization Address City/[facility]/ZIP Co de Phone Number [facility] [address] Department of Laboratories [place], [place] [id number] * (ABNORMAL) Acetaminophen level (01/14/2021 3:33 PM CDT) Acetaminophen <5.0(L) 10.0 - 20.0 mcg/mL JAILYN Blood specimen (specimen) 01/14/2021 3:33 PM CDT 01/14/2021 3:43 PM CDT Francisco Padilla MD LAB BLOOD ORDERABLES F inal Result Performing Organization Address [facility]/ZIP Co de Phone Number [facility] [address] [place] [address] * Blood culture Blood (01/14/2021 9:52 AM CDT) Report Final Report: No growth JAILYN Comment:Testing performed by : [facility], [address] [place]., [address] Blood specimen (specimen) 01/14/2021 9:52 AM CDT 01/14/2021 1:02 PM CDT Narrative JAILYN - 01/18/2021 4:01 PM CDT From a different site than #1. 1. ?Blood cultures are incubated for 4 [...] organism identification may be performed using the dineoutigene Gram-Positive Blood Culture Assay. This assay detects microbial DNA in positive blood culture broth via hybridization of target DNA to capture oligonucleotides on a microarray. This assay has been cleared by the [place] Food and Drug Administration and its performance characteristics have been verified by the [facility] Microbiology Laboratory. 5. ?For questions about this culture, contact the Microbiology Laboratory at [phone]. Interpretive data was last revised on 2019. Francisco Padilla MD LAB MICROBIOLOGY - GEN ERAL ORDERABLES Final Result JAILYN TRAN [address] Department [place] [address] * Blood culture Blood (01/14/2021 9:52 AM CDT) Report Final Report: No growth JAILYN TRAN Comment:Testing performed by : [facility], [address] [place] [address], [place]., [address] Blood specimen (specimen) 01/14/2021 9:52 AM CDT 01/14/2021 1:02 PM CDT Narrative JAILYN TRAN - 01/18/2021 4:01 PM CDT 1. ?Blood cultures are incubated for 4 [...] organism identification may be performed using the dineoutigene Gram-Positive Blood Culture Assay. This assay detects microbial DNA in positive blood culture broth via hybridization of target DNA to capture oligonucleotides on a microarray. This assay has been cleared by the [place] Food and Drug Administration and its performance characteristics have been verified by the [facility] Microbiology Laboratory. 5. ?For questions about this culture, contact the Microbiology Laboratory at [phone]. Interpretive data was last revised on 2019. Francisco Padilla MD LAB MICROBIOLOGY - GEN ERAL ORDERABLES Final Result Performing Organization Address [facility]/ZIP Co de Phone Number JAILYN TRAN [address] [employer] [place] [address] * (ABNORMAL) Urinalysis, microscopic only (01/14/2021 6:59 AM CDT) WBC, ur 11-20(A) 0 - 5 /HPF [facility] RBC, ur 6-10(A) 0 - 2 /HPF [facility] Epithelial cells, squamous, ur 1-5 0 - 5 /HPF [facility] Bacteria, ur Trace(A) [facility] Mucous, ur Present(A) [facility] Hyaline casts, ur 21-50(A) 0 - 10 /LPF [facility] Culture Reflex Comment Reflex to urine culture will be performed. [facility] Urine 01/14/2021 6:59 AM CDT 01/14/2021 6:59 AM CDT Pavan Edwards MD LAB URINE ORDERABLES Fi nal Result Performing Organization Address City/[facility]/ZIP Co de Phone Number JAILYN TRAN [address] [employer] [place] [address] * (ABNORMAL) Urinalysis reflex to microscopic and culture Urine (01/14/2021 6:59 AM CDT) Color, ur Yellow Yellow [facility] CH Clarity, ur Cloudy(A) Clear [facility] CH Specific gravity, ur 1.019 1.010 - 1.025 [facility] CH pH, urine 5.0 [facility] CH Protein, ur ql 1+(A) Negative [facility] CH Glucose, ur ql Negative Negative [facility] CH Ketones, ur Negative Negative [facility] CH Bilirubin, ur Negative Negative [facility] CH Blood, ur 1+(A) Negative [facility] CH Urobilinogen, ur <2.0 <2.0 mg/dL [facility] CH Nitrite, ur Negative Negative [facility] CH Leukocyte esterase, ur 4+(A) Negative [facility] CH UA reflex comment Reflex to microscopic UA will be performed. [facility] CH Urine 01/14/2021 6:59 AM CDT 01/14/2021 6:59 AM CDT Narrative [facility]ER CH - 01/14/2021 7:10 AM CDT ?? Urine pH is affected by diet, medications, systemic acid-base disturbances, and renal tubular function. ??pH may affect urinary stone formation. ??For example, urine pH below 6.0 may help reduce the tendency for calcium phosphate stones and pH greater than 6.0 may reduce the tendency for uric acid stone formation. Source: [facility] [employer]. Last revised 08-22-2017 Pavan Edwards MD LAB MICROBIOLOGY - [facility] ORDERABLES Final Result JAILYN [address] Department [place] [address] * (ABNORMAL) Urine culture Urine (01/14/2021 6:59 AM CDT) Report Final Report: Greater than or equal to 100,000 colonies/mL of Staphylococcus aureus Methicillin resistant (MRSA) by penicillin binding protein 2a (PBP2a) testing. Plus growth of clinically insignificant bacterial jaqueline. (.) CERNER CH Comment:Testing performed by : [facility], [address] [place]., [address] Organism STAPHYLOCOCCUS AUREUS [facility] Organism PLUS GROWTH OF CLINICALLY INSIGNIFICANT JAQUELINE. [facility] Urine 01/14/2021 6:59 AM CDT 01/14/2021 1:09 PM CDT Narrative JAILYN TRAN - 01/18/2021 11:31 AM CDT Urine culture reflexed based upon urinalysis results. Testing performed by [facility] Microbiology Laboratory ([phone]) Organism Antibiotic Method Susceptibility Staphylococcus aureus Ceftaroline INTERPRETATION Susceptible Staphylococcus aureus Trimethoprim with Sulfamethoxazole INTERPRETATION Susceptible Staphylococcus aureus Linezolid INTERPRETATION Susceptible Staphylococcus aureus Doxycycline INTERPRETATION Intermediate Staphylococcus aureus Nitrofurantoin INTERPRETATION Susceptible Staphylococcus aureus Oxacillin INTERPRETATION Resistant Staphylococcus aureus Cefazolin INTERPRETATION Resistant Staphylococcus aureus Ceftriaxone INTERPRETATION Resistant Staphylococcus aureus Vancomycin (LA) (LA) INTERPRET ATION Susceptible Staphylococcus aureus Daptomycin (LA) (LA) INTERPRET ATION Susceptible Pavan Edwards MD LAB MICROBIOLOGY - GENE RAL ORDERABLES Final Result JAILYN [address] Department [place] [address] * eGFR (01/14/2021 6:44 AM CDT) eGFR 43 mL/min/1.7 3 m2 JAILYN Comment: Interpretive Data Reference Interval Normal ?>/= [...] interpretive data was last reviewed 2020 Blood specimen (specimen) 01/14/2021 6:44 AM CDT 01/14/2021 6:44 AM CDT us Francisco Padilla MD LAB BLOOD ORDERABLES F inal Result [facility] [address] Department [place] [address] * (ABNORMAL) Differential, auto (01/14/2021 6:44 AM CDT) Neutrophil abs 16.4(H) 1.7 - 6.5 K/cumm CERNER Imm gran abs 0.1 0.0 - 0.1 K/cumm [facility] Lymphocyte abs 0.8 0.8 - 3.3 K/cumm [facility] Monocyte abs 1.4(H) 0.2 - 0.8 K/cumm [facility] Eosinophil abs 0.0 0.0 - 0.5 K/cumm [facility] Basophil abs 0.0 0.0 - 0.1 K/cumm [facility] Neutrophil pct 87.8 % [facility] Comment: Interpretive Data Percent cell count reference ranges are not reported, since discordance with absolute values may lead to misinterpretation of CBC data. Current Interpretive Data was last revised on 2017. Imm gran pct 0.5 % [facility] Comment: Interpretive Data Percent cell count reference ranges are not reported, since discordance with absolute values may lead to misinterpretation of CBC data. Current Interpretive Data was last revised on 2017. Lymphocyte pct 4.2 % [facility] Comment: Interpretive Data Percent cell count reference ranges are not reported, since discordance with absolute values may lead to misinterpretation of CBC data. Current Interpretive Data was last revised on 2017. Monocyte pct 7.3 % CERNER Comment: Interpretive Data Percent cell count reference ranges are not reported, since discordance with absolute values may lead to misinterpretation of CBC data. Current Interpretive Data was last revised on 2017. Eosinophil pct 0.1 % [facility] Comment: Interpretive Data Percent cell count reference ranges are not reported, since discordance with absolute values may lead to misinterpretation of CBC data. Current Interpretive Data was last revised on 2017. Basophil pct 0.1 % [facility] Comment: Interpretive Data Percent cell count reference ranges are not reported, since discordance with absolute values may lead to misinterpretation of CBC data. Current Interpretive Data was last revised on 2017. Blood specimen (specimen) 01/14/2021 6:44 AM CDT 01/14/2021 6:44 AM CDT Francisco Padilla MD LAB BLOOD ORDERABLES F inal Result Performing Organization Address [facility] Co de Phone Number [facility] [address] [place] [address] * (ABNORMAL) Acetaminophen level (01/14/2021 6:44 AM CDT) Acetaminophen <5.0(L) 10.0 - 20.0 mcg/mL [facility] Blood specimen (specimen) 01/14/2021 6:44 AM CDT 01/14/2021 6:44 AM CDT Francisco Padilla MD LAB BLOOD ORDERABLES F inal Result Performing Organization Address [facility] Co de Phone Number [facility] [address] [employer] [place], [place] [phone] * (ABNORMAL) aPTT (01/14/2021 6:44 AM CDT) aPTT 25(L) 27 - 37 sec [facility] Comment: Interpretive Data Therapeutic heparin range: 60.0 - 94.0 seconds. Based on correlation with therapeutic heparin activity range of 0.3-0.7 Units/mL. Current interpretive data was last revised on 2020. Blood specimen (specimen) 01/14/2021 6:44 AM CDT 01/14/2021 6:44 AM CDT Narrative [facility] - 01/14/2021 7:00 AM CDT Unless preformed in the last 48 hours. Draw prior to enoxaparin administration. Francisco Padilla MD LAB BLOOD ORDERABLES F inal Result Performing Organization Address [facility] Co de Phone Number [facility] [address] [employer] [place] [address] * Protime-INR (01/14/2021 6:44 AM CDT) PT 12.7 9.5 - 13.6 sec [facility] INR 1.1 0.9 - 1.2 [facility] Comment: Interpretive data Oral anticoagulant therapeutic ranges: Venous thromboembolism prophylaxis or treatment: 2.0-3.0 CARDIOLOGY Standard range: 2.0-3.0 High-intensity range: 2.5-3.5 Refer to indication-specific guidelines for appropriate target ranges for prosthetic heart valve replacement. Current interpretive data was last revised on 2019. Blood specimen (specimen) 01/14/2021 6:44 AM CDT 01/14/2021 6:44 AM CDT [facility] - 01/14/2021 6:58 AM CDT Unless preformed in the last 48 hours. Draw prior to enoxaparin administration. Francisco Padilla MD LAB BLOOD ORDERABLES F inal Result Performing Organization Address [facility] Co de Phone Number JAILYN [address] [employer] [place], [place] [id number] * Magnesium (01/14/2021 6:44 AM CDT) Magnesium 2.2 1.4 - 2.5 mg/dL [facility] Blood specimen (specimen) 01/14/2021 6:44 AM CDT 01/14/2021 6:44 AM CDT us Francisco Padilla MD LAB BLOOD [place] [address] [address] Department [place] [address] * (ABNORMAL) Comprehensive metabolic panel (01/14/2021 6:44 AM CDT) Sodium 138 135 - 145 mmol/L [facility] CH Potassium, pl 3.7 3.3 - 4.9 mmol/L [facility] CH Chloride 104 97 - 110 mmol/L [facility] CH CO2 23 22 - 32 mmol/L [facility] CH Anion gap 11 2 - 15 mmol/L [facility] CH BUN 26(H) 8 - 25 mg/dL [facility] CH Creatinine 1.39(H) 0.60 - 1.10 mg/dL [facility] CH Glucose 114 70 - 199 mg/dL [facility] Comment: Interpretive Data Fasting glucose >/= 126 [...] interpretive data was last revised 2017. Calcium 8.9 8.5 - 10.3 mg/dL [facility] CH Bilirubin, total 0.3 0.1 - 1.2 mg/dL [facility] CH Protein, pl 7.1 6.5 - 8.5 g/dL [facility] CH Albumin 4.0 3.5 - 5.0 g/dL [facility] CH Alk phos 132(H) 40 - 130 Units/L [facility] CH ALT 39 7 - 45 Units/L [facility] CH AST 60(H) 10 - 45 Units/L [facility] CH Blood specimen (specimen) 01/14/2021 6:44 AM CDT 01/14/2021 6:44 AM CDT Francisco Padilla MD LAB BLOOD ORDERABLES F inal Result Performing Organization Address [facility] Co de Phone Number JAILYN [address] [place] [address] * (ABNORMAL) CBC with auto differential (01/14/2021 6:44 AM CDT) WBC 18.6(H) 3.8 - 9.9 K/cumm [facility] CH Hgb 11.1(L) 11.9 - 15.5 g/dL [facility] CH Hct 33.0(L) 35.6 - 45.5 % CERNER Plt 389 150 - 400 K/cumm [facility] MPV 10.1 9.1 - 12.3 fL [facility] RBC 3.67(L) 3.90 - 5.20 M/cumm C[facility]ER CH MCV 89.9 81.3 - 96.4 fL [facility] MCH 30.2 27.1 - 33.3 pg [facility] MCHC 33.6 32.3 - 35.7 g/dL [facility] RDW CV 12.4 11.1 - 14.9 % [facility] RDW SD 40.8 35.7 - 48.1 fL [facility] NRBC abs 0.00 0.00 - 0.01 K/cumm [facility] Blood specimen (specimen) 01/14/2021 6:44 AM CDT 01/14/2021 6:44 AM CDT Francisco Padilla MD LAB BLOOD ORDERABLES F inal Result Performing Organization Address City/[facility]/ZIP Co de Phone Number JAILYN TRAN [address] [employer] [place], [place] [id number] * ECG 12 lead (01/14/2021 6:25 AM CDT) 01/14/2021 6:25 AM CDT Narrative [facility] - 01/14/2021 8:39 AM CDT Vent Rate: 92 bpm RR Interval: 648 msec RI Interval: 133 msec QRS Duration: 86 msec QT Interval: 392 msec QTC Interval: 442 msec P-R-T [place]: 75 - 83 - 76 [address] DEPRESSION BORDERLINE ECG Electronically Signed By: Dr. Con Hughes [facility] Francisco Padilla MD ECG ORDERABLES Final Result Performing Organization Address [facility] Phone Number [facility] * (ABNORMAL) Blood gas, venous (01/14/2021 5:35 AM CDT) pH, Venous 7.39 7.32 - 7.43 C[facility]ER CH PCO2, Venous 39(L) 40 - 50 mmHg [facility] CH PO2, Venous <30 mmHg [facility] CH Comment: Interpretive Data No Reference Range Established Current Interpretive Data was last revised on 2017. HCO3 Venous, Calculated 22 20 - 30 mmol/L [facility] CH BE, venous -1 mmol/L [facility] CH Comment: Interpretive Data No Reference Range Established Current Interpretive Data was last revised on 2017. Blood specimen (specimen) 01/14/2021 5:35 AM CDT 01/14/2021 5:39 AM CDT Francisco Padilla MD LAB BLOOD ORDERABLES F inal Result Performing Organization Address [facility] Phone Number [facility] [address] [place] [address] * Lactate (01/14/2021 4:17 AM CDT) Pathologist [facility] Lactate 1.2 0.7 - 2.0 mmol/L [facility] CH Blood specimen (specimen) 01/14/2021 4:17 AM CDT 01/14/2021 4:23 AM CDT Oracio Jeffries NP LAB BLOOD ORDERABLES Final Result Performing Organization Address [facility] Phone Number [facility] [address] [place] [address] * (ABNORMAL) Troponin T high-sensitivity 6-hour (01/14/2021 4:17 AM CDT) Trop T hs 23(H) <=14 ng/L JAILYN TRAN Comment: Interpretive Data For further hscTnT resources including the diagnostic algorithm and an aid in interpretation, copy and paste this link: [email or web address]/show/[email or web address] Current Interpretive Data last revised 2020. Trop T hs delta -16(C) ng/L JAILYN TRAN Comment:Critical Result call ed to and read back by Se Kaminski, DATE: 2021-01-14 05:01:34 BY: Sarah Skinner Trop T hs interp Significa nt(C) JAILYN TRAN Comment:Critical Result call ed to and read back by Se Kaminski, DATE: 2021-01-14 05:01:34 BY: Sarah Skinner Blood specimen (specimen) 01/14/2021 4:17 AM CDT 01/14/2021 4:24 AM CDT us Remi KIMBALL LAB BLOOD ORDERABLES F inal Result JAILYN [address] Department [place] [address] * (ABNORMAL) Troponin T high-sensitivity 4-hour (01/14/2021 2:15 AM CDT) Trop T hs 25(H) <=14 ng/L JAILYN TRAN Comment: Interpretive Data For further hscTnT resources including the diagnostic algorithm and an aid in interpretation, copy and paste this link: [email or web address]/[email or web address] Current Interpretive Data last revised 2020. Trop T hs delta -14(C) ng/L JAILYN TRAN Trop T hs interp Significa nt(C) JAILYN TRAN Blood specimen (specimen) 01/14/2021 2:15 AM CDT 01/14/2021 2:18 AM CDT Remi KIMBALL LAB BLOOD ORDERABLES F inal Result Performing Organization Address [facility]/ZIP Co de Phone Number JAILYN [address] [facility] [place] [address] * Acetaminophen level (01/14/2021 12:39 AM CDT) Acetaminophen 10.5 10.0 - 20.0 mcg/mL JAILYN Blood specimen (specimen) 01/14/2021 12:39 AM CDT 01/14/2021 12:42 AM CDT us Oracio Jeffries [employer] LAB BLOOD ORDERABLES Final Result Performing Organization Address [facility] de Phone Number JAILYN [address] [facility] [place] [address] * (ABNORMAL) Troponin T high-sensitivity 2-hour (01/14/2021 12:39 AM CDT) Trop T hs 27(H) <=14 ng/L JAILYN Comment: Interpretive Data For further hscTnT resources including the diagnostic algorithm and an aid in interpretation, copy and paste this link: [email or web address].[email or web address]/show/[email or web address] Current Interpretive Data last revised 2020. Trop T hs delta -12(C) ng/L JAILYN Comment:Critical Result call ed to and read back by Mook Kaminski, DATE: 2021-01-14 01:08:37 BY: Theo Briceno Trop T hs interp Significa nt(C) JAILYN Comment:Critical Result call ed to and read back by Mook Kaminski, DATE: 2021-01-14 01:08:37 BY: Theo Briceno Blood specimen (specimen) 01/14/2021 12:39 AM CDT 01/14/2021 12:42 AM CDT us Remi KIMBALL LAB BLOOD ORDERABLES F inal Result Performing Organization Address [facility] Co de Phone Number JAILYN [address] [place] [address] * CT Abdomen Pelvis WO Contrast (01/13/2021 11:52 PM CDT) Anatomical Region Laterality Modality Body N/A Computed Tomogra phy 01/13/2021 11:5 1 PM CDT Impressions 01/14/2021 9:48 AM CDT 1. Findings compatible with constipation or obstipation. 2 nonobstructing renal calculi. Electronically signed by: Mehdi Meyers M.D., MPH Narrative 01/14/2021 9:48 AM CDT EXAMINATION: ??CT ABDOMEN PELVIS WO CONTRAST TECHNIQUE: ??Computed tomographic examination of the abdomen and pelvis is performed without intravenous contrast HISTORY: ??Right-sided abdominal pain evaluate kidney stone COMPARISON:02/06/2020 FINDINGS: ??Visualized lung bases are normal. The liver, spleen, pancreas, adrenal glands are normal. There is nonobstructing bilateral renal calculi. However, there are no ureteral calculi there is no hydronephrosis. No bladder calculi seen. There is no obstruction, pneumoperitoneum or free fluid. Diffuse diverticulosis present there is no acute diverticulitis. There is been a prior partial colonic resection. Moderate amount of stool is noted within the rectosigmoid colon compatible with constipation or obstipation. Diffuse atherosclerotic disease of the aorta seen. Osseous windows demonstrate multilevel degenerative disc disease. Multiple injection granulomas seen in the subcutaneous tissues. Procedure Note Mehdi Meyers MD - 01/14/2021 EXAMINATION: CT ABDOMEN PELVIS WO CONTRAST TECHNIQUE: Computed tomographic examination of the abdomen and pelvis is performed without intravenous contrast HISTORY: Right-sided abdominal pain evaluate kidney stone COMPARISON:02/06/2020 FINDINGS: Visualized lung bases are normal. The liver, spleen, pancreas, adrenal glands are normal. There is nonobstructing bilateral renal calculi. However, there are no ureteral calculi there is no hydronephrosis. No bladder calculi seen. There is no obstruction, pneumoperitoneum or free fluid. Diffuse diverticulosis present there is no acute diverticulitis. There is been a prior partial colonic resection. Moderate amount of stool is noted within the rectosigmoid colon compatible with constipation or obstipation. Diffuse atherosclerotic disease of the aorta seen. Osseous windows demonstrate multilevel degenerative disc disease. Multiple injection granulomas seen in the subcutaneous tissues. IMPRESSION: 1. Findings compatible with constipation or obstipation. 2 nonobstructing renal calculi. Electronically signed by: Mehdi Meyers M.D., MPH Remi KIMBALL IMG CT PROCEDURES Moraima l Result * eGFR (01/13/2021 9:46 PM CDT) eGFR 28 mL/min/1.7 3 m2 JAILYN TRAN Comment: Interpretive Data Reference Interval Normal ?>/= [...] interpretive data was last reviewed 2020 Blood specimen (specimen) 01/13/2021 9:46 PM CDT 01/13/2021 9:50 PM CDT us Pavan Edwards MD LAB BLOOD ORDERABLES Fi nal Result JAILYN TRAN [id number] Department [place] [address] * eGFR (01/13/2021 9:46 PM CDT) eGFR 30 mL/min/1.7 3 m2 JAILYN Comment: Interpretive Data Reference Interval Normal ?>/= [...] interpretive data was last reviewed 2020 Blood specimen (specimen) 01/13/2021 9:46 PM CDT 01/13/2021 9:50 PM CDT us Remi KIMBALL LAB BLOOD ORDERABLES F inal Result JAILYN [id number] Department [place] [address] * (ABNORMAL) Differential, auto (01/13/2021 9:46 PM CDT) Neutrophil abs 20.0(H) 1.7 - 6.5 K/cumm JAILYN Imm gran abs 0.1 0.0 - 0.1 K/cumm [facility] Lymphocyte abs 1.0 0.8 - 3.3 K/cumm [facility] Monocyte abs 1.8(H) 0.2 - 0.8 K/cumm [facility] Eosinophil abs 0.0 0.0 - 0.5 K/cumm [facility] Basophil abs 0.0 0.0 - 0.1 K/cumm [facility] Neutrophil pct 87.2 % [facility] Comment: Interpretive Data Percent cell count reference ranges are not reported, since discordance with absolute values may lead to misinterpretation of CBC data. Current Interpretive Data was last revised on 2017. Imm gran pct 0.6 % [facility] Comment: Interpretive Data Percent cell count reference ranges are not reported, since discordance with absolute values may lead to misinterpretation of CBC data. Current Interpretive Data was last revised on 2017. Lymphocyte pct 4.2 % [facility] Comment: Interpretive Data Percent cell count reference ranges are not reported, since discordance with absolute values may lead to misinterpretation of CBC data. Current Interpretive Data was last revised on 2017. Monocyte pct 7.7 % [facility] Comment: Interpretive Data Percent cell count reference ranges are not reported, since discordance with absolute values may lead to misinterpretation of CBC data. Current Interpretive Data was last revised on 2017. Eosinophil pct 0.1 % [facility] Comment: Interpretive Data Percent cell count reference ranges are not reported, since discordance with absolute values may lead to misinterpretation of CBC data. Current Interpretive Data was last revised on 2017. Basophil pct 0.2 % [facility] Comment: Interpretive Data Percent cell count reference ranges are not reported, since discordance with absolute values may lead to misinterpretation of CBC data. Current Interpretive Data was last revised on 2017. Blood specimen (specimen) 01/13/2021 9:46 PM CDT 01/13/2021 9:50 PM CDT us Pavan Edwards MD LAB BLOOD ORDERABLES Fi nal Result JAILYN [id number] Department [place] [address] * (ABNORMAL) Acetaminophen level (01/13/2021 9:46 PM CDT) Acetaminophen 20.8(H) 10.0 - 20.0 mcg/mL [facility] Blood specimen (specimen) 01/13/2021 9:46 PM CDT 01/13/2021 9:50 PM CDT Pavan Edwards MD LAB BLOOD ORDERABLES Fi nal Result Performing Organization Address [facility] Co de Phone Number [facility] [phone] [address] [facility] [place] [address] * Salicylate level (01/13/2021 9:46 PM CDT) Salicylate <0.3 mg/dL [facility] Blood specimen (specimen) 01/13/2021 9:46 PM CDT 01/13/2021 9:50 PM CDT Pavan Edwards MD LAB BLOOD ORDERABLES Fi nal Result Performing Organization Address [facility] de Phone Number [facility] [phone] [address] [facility] [place] [address] * TSH (01/13/2021 9:46 PM CDT) Thyroid Stimulating Hormone 0.64 0.30 - 4.20 mcIUnit/mL [facility] Blood specimen (specimen) 01/13/2021 9:46 PM CDT 01/13/2021 9:50 PM CDT Pavan Edwards MD LAB BLOOD ORDERABLES Fi nal Result Performing Organization Address [facility] Co de Phone Number [facility] [id number] [address] [facility] [place] [address] * Ethanol (01/13/2021 9:46 PM CDT) Ethanol <10 <=10 mg/dL [facility] Comment: Interpretive Data Legal limit of intoxication > or = 80 mg/dL Levels > or = 400 mg/dL are potentially TOXIC. Current interpretive data was last revised on 2018. Blood specimen (specimen) 01/13/2021 9:46 PM CDT 01/13/2021 9:50 PM CDT us Pavan Edwards MD LAB BLOOD ORDERABLES Fi nal Result C[facility]ER [id number] Department [place] [address] * (ABNORMAL) Comprehensive metabolic panel (01/13/2021 9:46 PM CDT) Sodium 136 135 - 145 mmol/L [facility] Potassium, pl 2.6(C) 3.3 - 4.9 mmol/L [facility] Comment:Critical Result call ed to and read back by Shyam Peralta, DATE: 2021-01-13 22:34:45 BY: Theo Briceno Chloride 95(L) 97 - 110 mmol/L [facility] CO2 21(L) 22 - 32 mmol/L [facility] Anion gap 20(H) 2 - 15 mmol/L [facility] BUN 28(H) 8 - 25 mg/dL [facility] Creatinine 1.94(H) 0.60 - 1.10 mg/dL [facility] Glucose 130 70 - 199 mg/dL [facility] Comment: Interpretive Data Fasting glucose >/= 126 [...] interpretive data was last revised 2017. Calcium 10.1 8.5 - 10.3 mg/dL [facility] Bilirubin, total 0.4 0.1 - 1.2 mg/dL [facility] Protein, pl 8.4 6.5 - 8.5 g/dL [facility] Albumin 4.5 3.5 - 5.0 g/dL [facility] Alk phos 150(H) 40 - 130 Units/L [facility] ALT 48(H) 7 - 45 Units/L [facility] AST 73(H) 10 - 45 Units/L [facility] Blood specimen (specimen) 01/13/2021 9:46 PM CDT 01/13/2021 9:50 PM CDT Pavan Edwards MD LAB BLOOD ORDERABLES Fi nal Result [facility] [id number] [address] Department [place] [address] * (ABNORMAL) CBC with auto differential (01/13/2021 9:46 PM CDT) WBC 22.9(H) 3.8 - 9.9 K/cumm [facility] Hgb 13.2 11.9 - 15.5 g/dL [facility] Hct 38.5 35.6 - 45.5 % [facility] Plt 388 150 - 400 K/cumm [facility] MPV 10.5 9.1 - 12.3 fL [facility] RBC 4.34 3.90 - 5.20 M/cumm [facility] MCV 88.7 81.3 - 96.4 fL [facility] MCH 30.4 27.1 - 33.3 pg [facility] MCHC 34.3 32.3 - 35.7 g/dL [facility] RDW CV 12.4 11.1 - 14.9 % [facility] RDW SD 40.2 35.7 - 48.1 fL [facility] NRBC abs 0.00 0.00 - 0.01 K/cumm [facility] Blood specimen (specimen) 01/13/2021 9:46 PM CDT 01/13/2021 9:50 PM CDT Pavan Edwards MD LAB BLOOD ORDERABLES Fi nal Result JAILYN [id number] [address] [place] [address] * (ABNORMAL) Troponin T high-sensitivity series (baseline, 2hr, 4hr, 6hr) (01/13/2021 9:46 PM CDT) Pathologist [facility] [place] Trop T hs 39(H) <=14 ng/L [facility] Comment: Interpretive Data For further hscTnT resources including the diagnostic algorithm and an aid in interpretation, copy and paste this link: https://nrl.testcatalog.org/show/[email or web address] Current Interpretive Data last revised 2020. Blood specimen (specimen) 01/13/2021 9:46 PM CDT 01/13/2021 9:50 PM CDT Remi KIMBALL LAB BLOOD ORDERABLES E dited Result - Final Performing Organization Address [facility] Co de Phone Number [facility] [phone] [address] [place] [address] * Lipase (01/13/2021 9:46 PM CDT) Pathologist [facility] [place] Lipase 26 10 - 99 Units/L [facility] Blood specimen (specimen) 01/13/2021 9:46 PM CDT 01/13/2021 9:50 PM CDT Remi KIMBALL LAB BLOOD ORDERABLES F inal Result Performing Organization Address [facility] Co de Phone Number [facility] [address] [place] [address] * (ABNORMAL) Comprehensive metabolic panel (01/13/2021 9:46 PM CDT) [facility] Sodium 134(L) 135 - 145 mmol/L [facility] Potassium, pl 2.5(C) 3.3 - 4.9 mmol/L [facility] Comment:Critical Result call ed to and read back by Shyam Peralta, DATE: 2021-01-13 22:27:55 BY: Theo Briceno Chloride 93(L) 97 - 110 mmol/L [facility] CO2 21(L) 22 - 32 mmol/L [facility] Anion gap 20(H) 2 - 15 mmol/L [facility] BUN 28(H) 8 - 25 mg/dL [facility] Creatinine 1.88(H) 0.60 - 1.10 mg/dL [facility] Glucose 132 70 - 199 mg/dL [facility] Comment: Interpretive Data Fasting glucose >/= 126 [...] interpretive data was last revised 2017. Calcium 10.2 8.5 - 10.3 mg/dL [facility] Bilirubin, total 0.4 0.1 - 1.2 mg/dL [facility] Protein, pl 8.3 6.5 - 8.5 g/dL [facility] Albumin 4.5 3.5 - 5.0 g/dL [facility] Alk phos 151(H) 40 - 130 Units/L [facility] ALT 48(H) 7 - 45 Units/L [facility] AST 73(H) 10 - 45 Units/L [facility] Blood specimen (specimen) 01/13/2021 9:46 PM CDT 01/13/2021 9:50 PM CDT us Remi KIMBALL LAB BLOOD ORDERABLES F inal Result JAILYN [id number] Department [place] [address] * XR Chest Pa Lateral 2 Vw (01/13/2021 8:35 PM CDT) Anatomical Region Laterality Modality Body, Chest N/A Computed Radiogr aphy 01/14/2021 8:38 AM CDT Impressions 01/14/2021 8:38 AM CDT Hyperinflation of the lungs. Electronically signed by: Rakesh Palacio M.D. Narrative 01/14/2021 8:38 AM CDT EXAMINATION: XR CHEST PA LATERAL 2 VIEWS HISTORY: The patient is a 55-year-old female who presents with chest pain. TECHNIQUE: PA and lateral view of the chest. FINDINGS: There is hyperinflation of the lungs. ??No focal infiltrate. Cardiovascular structures unremarkable. Procedure Note Rakesh Palacio MD - 01/14/2021 EXAMINATION: XR CHEST PA LATERAL 2 VIEWS HISTORY: The patient is a 55-year-old female who presents with chest pain. TECHNIQUE: PA and lateral view of the chest. FINDINGS: There is hyperinflation of the lungs. No focal infiltrate. Cardiovascular structures unremarkable. IMPRESSION: Hyperinflation of the lungs. Electronically signed by: Rakesh Palacio M.D. us Francisco Padilla MD IMG XR PROCEDURES Moraima l Result * ECG 12 lead (01/13/2021 7:41 PM CDT) 01/13/2021 7:41 PM CDT Narrative [facility] - 01/15/2021 5:41 PM CDT Vent Rate: 119 bpm RR Interval: 503 msec RI Interval: 136 msec QRS Duration: 79 msec QT Interval: 427 msec QTC Interval: 498 msec P-R-T [place]: 67 - 83 - [address] DEVIATION AND MODERATE T-WAVE ABNORMALITY, CONSIDER INFERIOR ISCHEMIA ABNORMAL ECG Electronically Signed By: Dr. Con Hughes [facility] us Remi KIMBALL ECG ORDERABLES Final Result [facility] documented in this encounter Visit Diagnoses Diagnosis Elevated troponin Other abnormal blood chemistry Abdominal pain Abdominal pain, unspecified site Hypokalemia Hypopotassemia Suicidal ideation Chest pressure Other chest pain Elevated troponin Other abnormal blood chemistry Chest pressure Other chest pain Hepatitis Unspecified hepatitis Tylenol overdose JHOANA (acute kidney injury) (HCC) NSAID overdose Bandemia High anion gap metabolic acidosis Hypokalemia Hypopotassemia Right lower quadrant abdominal pain Suicidal ideation History of DVT (deep vein thrombosis) Frailty Senility without mention of psychosis Severe protein-calorie malnutrition (CMS/HCC) (HCC) Other severe protein-calorie malnutrition Constipation Unspecified constipation documented in this encounter Admitting Diagnoses Diagnosis Elevated troponin Other abnormal blood chemistry documented in this encounter Administered Medications Inactive Administered Medications - up to 3 most recent administrations Medication Order MAR Action Action Date Dose Rate Site al & mag hydroxide upnjgtvkfzb-wrwzybypyzwcfsx-aawhul ine-nystatin (MAGIC MOUTHWASH) suspension 1-1-1-1 15 mL, swish & spit, Every 4 hours PRN, mucositis, Starting on 01/15/21 at 1209 Given 01/22/2021 11:47 PM CDT 15 mL Given 01/18/2021 1:36 AM CDT 15 mL Given 01/16/2021 3:44 PM CDT 15 mL aspirin enteric coated tablet 81 mg 81 mg, oral, Daily, First dose on [place] 01/15/21 at 0900, Do not crush, chew, cut, dissolve, open or otherwise manipulate tablet/capsule., Indications: prevention of thrombosisIndications:prevention of thrombosis Given 01/26/2021 8: 55 AM CDT 81 mg Given 01/25/2021 9:29 AM CDT 81 mg Given 01/23/2021 8:59 AM CDT 81 mg aspirin tablet 325 mg 325 mg, oral, Once, On [facility] 01/14/21 at 0324, For 1 dose Given 01/14/2021 3:27 AM CDT 325 mg atorvastatin (LIPITOR) tablet 20 mg 20 mg, oral, Daily, First dose on [place] 01/15/21 at 1315 Given 01/26/2021 8:54 AM CDT 20 mg Given 01/25/2021 9:28 AM CDT 20 mg Given 01/24/2021 8:46 AM CDT 20 mg clonazePAM (KlonoPIN) tablet 0.5 mg 0.5 mg, oral, 3 times daily, First dose (after last modification) on [facility] 01/26/21 at 0900, Indications: Panic DisorderIndications:Panic Disorder Given 01/26/2021 8:55 AM CDT 0.5 mg clonazePAM (KlonoPIN) tablet 1 mg 1 mg, oral, 2 times daily, First dose on [facility] 01/14/21 at 0900, Indications: Panic DisorderIndications:Panic Disorder Given 01/25/2021 8:53 PM CDT 1 mg Given 01/25/2021 9:28 AM CDT 1 mg Given 01/24/2021 9:16 PM CDT 1 mg cyclobenzaprine (FLEXERIL) tablet 10 mg 10 mg, oral, 2 times daily, First dose on 01/14/21 at 0900, Indications: Muscle SpasmIndications:Muscle Spasm Given 01/26/2021 8:54 AM CDT 10 mg Given 01/25/2021 8:53 PM CDT 10 mg Given 01/25/2021 9:28 AM CDT 10 mg dextrose 5% and sodium chloride 0.9% infusion (premix) 100 mL/hr, intravenous, Continuous, Starting on 01/14/21 at 0610 New Bag 01/14/2021 10:53 AM CDT 100 mL/hr 100 mL/hr New Bag 01/14/2021 6:54 AM CDT 100 mL/hr 100 mL/hr dicyclomine (BENTYL) tablet 10 mg 10 mg, oral, 3 times daily, First dose on 01/14/21 at 0900, Indications: Irritable Bowel SyndromeIndications:Irritable Bowel Syndrome Given 01/26/2021 8:55 AM CDT 10 mg Given 01/25/2021 8:53 PM CDT 10 mg Given 01/25/2021 4:31 PM CDT 10 mg enoxaparin (LOVENOX) syringe 60 mg 60 mg (rounded from 54.3 mg = 1 mg/kg ? 54.3 kg), subcutaneous, Daily (for enoxaparin), First dose on 01/14/21 at 0610, Indications: Acute Coronary SyndromeIndications:Acute Coronary Syndrome Given 01/16/2021 3:35 PM CDT 60 mg Right Lower Abdomen Given 01/15/2021 7:44 AM CDT 60 mg Le ft Lower Abdomen Given 01/14/2021 6:54 AM CDT 60 mg Le ft Lower Abdomen folic acid (FOLVITE) tablet 1 mg 1 mg, oral, Daily with dinner, First dose on 01/14/21 at 1800, Indications: Folate DeficiencyIndications:Folate Deficiency Given 01/25/2021 5:44 PM CDT 1 mg Given 01/24/2021 5:21 PM CDT 1 mg Given 01/23/2021 5:13 PM CDT 1 mg losartan (COZAAR) tablet 25 mg 25 mg, oral, Daily, First dose on Sat01/26/21 at 0900 Given 01/26/2021 8:55 AM CDT 25 mg metoprolol tartrate (LOPRESSOR) immediate release tablet 25 mg 25 mg, oral, 2 times daily, First dose on Sat01/14/21 at 0610 Given 01/26/2021 8:54 AM CDT 25 mg Given 01/25/2021 8:53 PM CDT 25 mg Given 01/25/2021 9:29 AM CDT 25 mg morphine injection 2 mg 2 mg, intravenous, Administer over 4 Minutes, Once, On Sat01/23/21 at 0345, For 1 dose Given 01/23/2021 6:17 AM CDT 2 m g OLANZapine (ZyPREXA ZYDIS) disintegrating tablet 10 mg 10 mg, oral, Nightly, First dose on Sat01/25/21 at 2130, Indications: Depression Treatment Adjunct, Mixed Bipolar I DisorderIndications:Depression Treatment Adjunct,Mixed Bipolar I Disorder OLANZapine (ZyPREXA ZYDIS) disintegrating tablet 5 mg 5 mg, oral, 2 times daily, First dose on Sat01/17/21 at 2100, Indications: Depression Treatment Adjunct, Mixed Bipolar I DisorderIndications:Depression Treatment Adjunct,Mixed Bipolar I Disorder Given 01/25/2021 8:53 PM CDT 5 mg Given 01/25/2021 9:29 AM CDT 5 mg Given 01/24/2021 9:16 PM CDT 5 mg OLANZapine (ZyPREXA ZYDIS) disintegrating tablet 5 mg 5 mg, oral, Daily, First dose (after last modification) on Sat01/26/21 at 0900, Indications: Depression Treatment Adjunct, Mixed Bipolar I DisorderIndications:Depression Treatment Adjunct,Mixed Bipolar I Disorder Given 01/26/2021 8:55 AM CDT 5 mg ondansetron (ZOFRAN) injection 4 mg 4 mg, intravenous, Administer over 2 Minutes, Once, On Sat01/14/21 at 0158, For 1 dose, Indications: Nausea, VomitingIndications:Nausea,Vomiting Given 01/14/2021 2:00 AM CDT 4 mg ondansetron (ZOFRAN) injection 4 mg 4 mg, intravenous, Administer over 2 Minutes, Every 6 hours PRN, nausea, vomiting, if not tolerating PO, Starting on 01/14/21 at 0817, Indications: Nausea and VomitingIndications:Nausea and Vomiting Given 01/18/2021 10:18 PM CDT 4 m g ondansetron ODT (ZOFRAN-ODT) disintegrating tablet 4 mg 4 mg, oral, Every 6 hours PRN, nausea, vomiting, Starting on 01/14/21 at 0817, Indications: Nausea and VomitingIndications:Nausea and Vomiting Given 01/22/2021 11:05 AM CDT 4 m g Given 01/21/2021 7:26 PM CDT 4 mg Given 01/21/2021 11:30 AM CDT 4 mg oxyCODONE (ROXICODONE) tablet 5 mg 5 mg, oral, 4 times daily PRN, 1st line for pain, Starting on 01/14/21 at 0817, Indications: PainIndications:Pain Given 01/26/2021 4:36 AM CDT 5 mg Given 01/25/2021 4:31 PM CDT 5 mg Given 01/24/2021 9:15 PM CDT 5 mg polyethylene glycol (MIRALAX) packet 17 g 17 g, oral, Daily with lunch, First dose on 01/14/21 at 1200, Indications: constipationIndications:constipation Given 01/21/2021 11:27 AM CDT 17 g Given 01/15/2021 11:54 AM CDT 17 g Given 01/14/2021 10:53 AM CDT 17 g potassium chloride ER (KLOR-CON) extended release tablet 40 mEq 40 mEq, oral, Once, On Sat01/13/21 at 2255, For 1 dose, Do not crush, chew, cut, dissolve, open or otherwise manipulate tablet/capsule. Given 01/13/2021 11:13 PM CDT 40 mEq potassium chloride ER (KLOR-CON) extended release tablet 40 mEq 40 mEq, oral, Once, On Sat01/13/21 at 2350, For 1 dose, Do not crush, chew, cut, dissolve, open or otherwise manipulate tablet/capsule. Given 01/14/2021 12:44 AM CDT 40 mEq potassium chloride ER (KLOR-CON) extended release tablet 40 mEq 40 mEq, oral, Once, On Sat01/16/21 at 0800, For 1 dose, Do not crush, chew, cut, dissolve, open or otherwise manipulate tablet/capsule. Given 01/16/2021 9:34 AM CDT 40 mEq potassium chloride ER (KLOR-CON) extended release tablet 40 mEq 40 mEq, oral, Once, On Sat01/19/21 at 0900, For 1 dose, Do not crush, chew, cut, dissolve, open or otherwise manipulate tablet/capsule. Given 01/19/2021 8:44 AM CDT 40 mEq ramelteon (ROZEREM) tablet 8 mg 8 mg, oral, Nightly PRN, sleep, Starting on Sat01/16/21 at 2327, Indications: Sleep-Onset InsomniaIndications:Sleep-Onset Insomnia Given 01/25/2021 9:41 PM CDT 8 m g Given 01/24/2021 9:20 PM CDT 8 mg Given 01/23/2021 9:28 PM CDT 8 mg regadenoson (LEXISCAN) 0.4 mg/5 mL injection 0.4 mg 0.4 mg, intravenous, Once, On Sat01/16/21 at 1030, For 1 dose, Intra-Procedure (CV), Administer IV push over 10 seconds., Indications: Myocardial Perfusion Imaging AdjunctIndications:Myocardial Perfusion Imaging Adjunct Given 01/16/2021 12:37 PM CDT 0.4 mg regadenoson (LEXISCAN) 0.4 mg/5 mL injection 0.4 mg 0.4 mg, intravenous, Once, On Sat01/17/21 at 1300, For 1 dose, Intra-Procedure (CV), Administer IV push over 10 seconds., Indications: Myocardial Perfusion Imaging AdjunctIndications:Myocardial Perfusion Imaging Adjunct Given 01/17/2021 12:42 PM CDT 0.4 mg senna-docusate (PERICOLACE) 8.6-50 mg per tablet 2 tablet 2 tablet, oral, 2 times daily, First dose on 01/14/21 at 0900 Given 01/26/2021 8:54 AM CDT 2 tablets Given 01/25/2021 8:53 PM CDT 2 tablets Given 01/25/2021 9:29 AM CDT 2 tablets sodium chloride 0.9% bolus 1,000 mL 1,000 mL, intravenous, Once, On Sat01/13/21 at 1936, For 1 dose New Bag 01/13/2021 11:10 PM CDT 1,000 mL sodium chloride 0.9% flush 0.5-20 mL 0.5-20 mL, intra-catheter, Every 8 hours scheduled, First dose on Sat01/14/21 at 0900, Flush volume based on line type and size. Given 01/25/2021 9:10 PM CDT 10 mL Given 01/25/2021 9:30 AM CDT 10 mL Given 01/24/2021 9:16 PM CDT 10 mL sodium chloride 0.9% flush 0.5-20 mL 0.5-20 mL, intra-catheter, As needed, line care, Starting on Sat01/14/21 at 0817, Flush volume based on line type and size. Flush before and after each use. sodium chloride 0.9% flush 10 mL 10 mL, intravenous, As needed, line care, Starting on Sat01/16/21 at 0957, Intra-Procedure (CV) Given 01/17/2021 12:42 PM CDT 10 mL Given 01/17/2021 12:39 PM CDT 10 mL Given 01/16/2021 12:37 PM CDT 10 mL sodium chloride 0.9% flush 10 mL 10 mL, intravenous, As needed, line care, Starting on Sat01/17/21 at 1228, Intra-Procedure (CV) sodium chloride 0.9% infusion 100 mL/hr, intravenous, Continuous, Starting on 01/14/21 at 0900 New Bag 01/14/2021 11:05 AM CDT 100 mL/hr 100 mL/hr sodium chloride 0.9% infusion 75 mL/hr, intravenous, Continuous, Starting on Sat01/14/21 at 1515 New Bag 01/16/2021 4:33 AM CDT 75 mL/hr 75 mL/hr New Bag 01/15/2021 11:54 AM CDT 75 mL/hr 75 mL/hr New Bag 01/14/2021 9:23 PM CDT 75 mL/hr 75 mL/hr sodium phosphate - potassium phosphate (K-PHOS NEUTRAL) tablet 250 mg 250 mg, oral, 2 times daily with meals (bkfst, dinner), First dose on Sat01/16/21 at 0800, For 4 doses, Each tablet contains elemental phosphorus 250 mg (8 mmol), potassium 45 mg (1.1 mEq), and sodium 298 mg (13 mEq). Given 01/17/2021 4:50 PM CDT 250 mg Given 01/17/2021 8:59 AM CDT 250 mg Given 01/16/2021 9:04 PM CDT 250 mg tc-99m tetrofosmin (MYOVIEW) injection 10.1 millicurie 10.1 millicurie, intravenous, Once in imaging, radiopharmaceutical, Starting on Sat01/16/21 at 0936, For 1 dose, Indications: Diagnostic RadiographyIndications:Diagno stic Radiography Given 01/16/2021 9:28 AM CDT 10.1 millicuries tc-99m tetrofosmin (MYOVIEW) injection 27.4 millicurie 27.4 millicurie, intravenous, Once in imaging, radiopharmaceutical, Starting on Sat01/16/21 at 1453, For 1 dose, Indications: Diagnostic RadiographyIndications:Diagno stic Radiography Given 01/16/2021 12:37 PM CDT 27.4 millicuries tc-99m tetrofosmin (MYOVIEW) injection 27.7 millicurie 27.7 millicurie, intravenous, Once in imaging, radiopharmaceutical, Starting on Sat01/17/21 at 1308, For 1 dose, Indications: Diagnostic RadiographyIndications:Diagno stic Radiography Given 01/17/2021 12:43 PM CDT 27.7 millicuries Left Hand traMADoL (ULTRAM) tablet 50 mg 50 mg, oral, 2 times daily PRN, 1st line for pain, Starting on Sat01/15/21 at 1211 Given 01/26/2021 8:59 AM CDT 50 mg Given 01/25/2021 6:21 PM CDT 50 mg Given 01/25/2021 10:26 AM CDT 50 mg documented in this encounter Discontinued Medications Medication Sig Discontinue Reason Start Date End Da te cyanocobalamin (Vitamin B-12) 100 mcg tabletIndications:Pr evention of Vitamin B12 Deficiency Take 1,000 mcg by mouth every morning Other 01/14/2021 calcium carbonate-vitamin D3 500 mg(1,250mg) -400 unit chewable tabletIndications:Vi tamin D Deficiency Take 1 tablet by mouth every morning Other 01/14/2021 atorvastatin (LIPITOR) 10 mg tablet Other 12/07/2020 01/14/2021 ferrous fumarate 325 mg (106 mg iron) tabletIndications:Ir on Deficiency Anemia Take 106 mg of elemental iron by mouth daily with dinner Therapy completed 01/14/2021 ferrous sulfate 325 mg (65 mg of elemental iron) tablet TAKE 1 TABLET BY MOUTH EVERY DAY WITH MEALS Therapy completed 11/03/2020 01/14/2021 oxyCODONE (ROXICODONE) 5 mg immediate release tabletIndications:Pa in Take 1 tablet (5 mg total) by mouth every 4 (four) hours as needed for pain Therapy completed 05/11/2020 01/14/2021 metoprolol tartrate (LOPRESSOR) 25 mg immediate release tablet Take 1 tablet (25 mg total) by mouth 2 (two) times a day Stop Taking at Discharge 01/18/2021 01/26/2021 traZODone (DESYREL) 150 mg tablet Take 150 mg by mouth nightly Stop Taking at Discharge 01/26/2021 rizatriptan (MAXALT) 10 mg tabletIndications:Mi graine Take 10 mg by mouth once as needed for migraine May repeat in 2 hours if unresolved. Do not exceed 30 mg in 24 hours. Stop Taking at Discharge 01/26/2021 acetaminophen 500 mg capsuleIndications:P ain Take 2 capsules (1,000 mg total) by mouth every 6 (six) hours Stop Taking at Discharge 04/28/2020 01/26/2021 venlafaxine XR (EFFEXOR-XR) 75 mg 24 hr capsule Take 75 mg by mouth 2 (two) times a day Stop Taking at Discharge 01/10/2021 01/26/2021 valACYclovir (VALTREX) 1 gram tablet valacyclovir 1 gram tablet Take 1 tablet 3 times a day by oral route as directed for 10 days. Stop Taking at Discharge 01/26/2021 SUMAtriptan (IMITREX) 100 mg tablet Stop Taking at Discharge 01/03/2021 01/26/2021 OLANZapine (ZyPREXA) 2.5 mg tablet Stop Taking at Discharge 01/02/2021 01/26/2021 HYDROcodone-acetamin ophen (NORCO) 5-325 mg per tablet Stop Taking at Discharge 12/16/2020 01/26/2021 LORazepam (ATIVAN) 0.5 mg tablet Stop Taking at Discharge 12/28/2020 01/26/2021 documented as of this encounter Historical Medications * This list may reflect changes made after this encounter. fluticasone propionate (FLONASE) 50 mcg/actuation nasal spray Administer 2 sprays into each nostril daily pantoprazole DR (PROTONIX) 40 mg EC tablet Take 40 mg by mouth every morning 10/18/2020 atorvastatin (LIPITOR) 20 mg tablet Take 1 tablet (20 mg total) by mouth nightly 12/22/2020 calcium carbonate-vitami n D3 (CALTRATE 600 + D) 1500 mg (600 mg elemental) -400 units per tablet Take 1 tablet by mouth 2 (two) times a day 10/28/2020 LORazepam (ATIVAN) 0.5 mg tablet 12/28/2020 1 HYDROcodone-acet aminophen (NORCO) 5-325 mg per tablet 12/16/2020 1 ferrous sulfate 325 mg (65 mg of elemental iron) tablet TAKE 1 TABLET BY MOUTH EVERY DAY WITH MEALS 11/03/2020 1 OLANZapine (ZyPREXA) 2.5 mg tablet 01/02/2021 1 SUMAtriptan (IMITREX) 100 mg tablet 01/03/2021 1 tamsulosin (FLOMAX) 0.4 mg extended release capsule tamsulosin 0.4 mg capsule TAKE 1 CAPSULE BY MOUTH EVERY DAY 05/10/2015 1 traMADoL (ULTRAM) 50 mg tablet 12/13/2020 1 valACYclovir (VALTREX) 1 gram tablet valacyclovir 1 gram tablet Take 1 tablet 3 times a day by oral route as directed for 10 days. 1 venlafaxine XR (EFFEXOR-XR) 75 mg 24 hr capsule Take 75 mg by mouth 2 (two) times a day 01/10/2021 1 cyanocobalamin (Vitamin B-12) 1,000 mcg tablet Take 1,000 mcg by mouth daily 10/24/2020 1 atorvastatin (LIPITOR) 10 mg tablet 12/07/2020 1 added in this encounter Active and Recently Administered Medications Times are shown in CDT. Scheduled Medication Order 01/24/2021 01/25/2021 01/26/2021 aspirin enteric coated tablet 81 mg 81 mg, oral, Daily, First dose on 01/15/21 at 0900, Do not crush, chew, cut, dissolve, open or otherwise manipulate tablet/capsule., Indications: prevention of thrombosis 0846 (Not Given - Provider: Rola Daigle RN - Reason: Medication not available) 09 (Given - Provider: Yoalnde Jackson RN) 0855 (Given - Provider: Whitney Levine, KAT) atorvastatin (LIPITOR) tablet 20 mg 20 mg, oral, Daily, First dose on 01/15/21 at 1315 0846 (Given - Provider: Rola Daigle RN) 09 (Given - Provider: Yolande Jackson RN) 0854 (Given - Provider: Whitney Levine, KAT) clonazePAM (KlonoPIN) tablet 0.5 mg 0.5 mg, oral, 3 times daily, First dose (after last modification) on [place] 01/26/21 at 0900, Indications: Panic Disorder 0855 (Given - Provider: Whitney Levine, KAT) clonazePAM (KlonoPIN) tablet 1 mg (CANCELED) 1 mg, oral, 2 times daily, First dose on 01/14/21 at 0900, Indications: Panic Disorder 0845 (Given - Provider: Rola Daigle RN)2115 (Given - Provider: Shantanu Jacobsen, KAT) 927 (Given - Provider: Yolande Jackson RN)2052 (Given - Provider: Sarah Marie RN) cyclobenzaprine (FLEXERIL) tablet 10 mg 10 mg, oral, 2 times daily, First dose on 01/14/21 at 0900, Indications: Muscle Spasm 0846 (Given - Provider: Rola Daigle RN)2115 (Given - Provider: Shantanu Jacobsen RN) 927 (Given - Provider: Yolande Jackson RN)2052 (Given - Provider: Sarah Marie RN) 0854 (Given - Provider: Whitney Levine, KAT) dicyclomine (BENTYL) tablet 10 mg 10 mg, oral, 3 times daily, First dose on 01/14/21 at 0900, Indications: Irritable Bowel Syndrome 0845 (Given - Provider: Rola Daigle RN)1540 (Given - Provider: Rola Daigle RN)2115 (Given - Provider: Shantanu Jacobsen RN) 09 (Given - Provider: Yolande Jackson RN)163 (Given - Provider: Yolande Jackson RN)2052 (Given - Provider: Sarah Marie RN) 0855 (Given - Provider: Whitney Levine RN) folic acid (FOLVITE) tablet 1 mg 1 mg, oral, Daily with dinner, First dose on 01/14/21 at 1800, Indications: Folate Deficiency 1721 (Given - Provider: Rola Daigle RN) 1744 (Given - Provider: Yolande Jackson RN) losartan (COZAAR) tablet 25 mg 25 mg, oral, Daily, First dose on [place] 01/26/21 at 0900 0855 (Given - Provider: Whitney Levine RN) metoprolol tartrate (LOPRESSOR) immediate release tablet 25 mg 25 mg, oral, 2 times daily, First dose on 01/14/21 at 0610 0846 (Given - Provider: Rola Daigle RN)2115 (Given - Provider: Shantanu Jacobsen RN) 928 (Given - Provider: Yolande Jackson RN)2052 (Given - Provider: Sarah Marie RN) 0854 (Given - Provider: Whitney Levine, KAT) OLANZapine (ZyPREXA ZYDIS) disintegrating tablet 10 mg 10 mg, oral, Nightly, First dose on Sat01/25/21 at 2130, Indications: Depression Treatment Adjunct, Mixed Bipolar I Disorder 2109 (Not Given - Provider: Saarh Marie RN - Reason: Other) OLANZapine (ZyPREXA ZYDIS) disintegrating tablet 5 mg (CANCELED) 5 mg, oral, 2 times daily, First dose on Sat01/17/21 at 2100, Indications: Depression Treatment Adjunct, Mixed Bipolar I Disorder 0846 (Given - Provider: Rola Daigle RN)2115 (Given - Provider: Shantanu Jacobsen, RN) 928 (Given - Provider: Yolande Jackson, RN)2052 (Given - Provider: Sarah Marie, RN) OLANZapine (ZyPREXA ZYDIS) disintegrating tablet 5 mg 5 mg, oral, Daily, First dose (after last modification) on [place] 01/26/21 at 0900, Indications: Depression Treatment Adjunct, Mixed Bipolar I Disorder 0855 (Given - Provider: Whitney Levine, KAT) polyethylene glycol (MIRALAX) packet 17 g 17 g, oral, Daily with lunch, First dose on 01/14/21 at 1200, Indications: constipation 1145 (Not Given - Provider: Rola Daigle RN - Reason: Patient/family refused) 1226 (Not Given - Provider: Yolande Jackson RN - Reason: Patient/family refused) senna-docusate (PERICOLACE) 8.6-50 mg per tablet 2 tablet 2 tablet, oral, 2 times daily, First dose on 01/14/21 at 0900 0845 (Given - Provider: Rola Daigle, RN)2115 (Given - Provider: Shantanu Jacobsen, KAT) 928 (Given - Provider: Yolande Jackson, KAT)2052 (Given - Provider: Sarah Marie RN) 08 (Given - Provider: Whitney Levine, KAT) sodium chloride 0.9% flush 0.5-20 mL(Linked Group 1) 0.5-20 mL, intra-catheter, Every 8 hours scheduled, First dose on 01/14/21 at 0900, Flush volume based on line type and size. 0634 (Given - Provider: Jean Bhardwaj RN)1411 (Given - Provider: Rola Daigle, KAT)2115 (Given - Provider: Shantanu Jacobsen, RN) 09 (Given - Provider: Yolande Jackson, KAT)142 (Not Given - Provider: Yolande Jackson RN - Reason: Patient/family refused)2109 (Given - Provider: Sarah Marie, RN) 0529 (Not Given - Provider: Sarah Marie, RN - Reason: Loss of IV access) PRN Medication Order 01/24/2021 01/25/2021 01/26/2021 al & mag hydroxide simethicone-diphenhydrami am-etplyibqo-cyewrfzj (MAGIC MOUTHWASH) suspension 1-1-1-1 15 mL, swish & spit, Every 4 hours PRN, mucositis, Starting on 01/15/21 at 1209 ondansetron ODT (ZOFRAN-ODT) disintegrating tablet 4 mg(Linked Group 2) 4 mg, oral, Every 6 hours PRN, nausea, vomiting, Starting on 01/14/21 at 0817, Indications: Nausea and Vomiting oxyCODONE (ROXICODONE) tablet 5 mg 5 mg, oral, 4 times daily PRN, 1st line for pain, Starting on 01/14/21 at 0817, Indications: Pain 0846 (Given - Provider: Rola Daigle RN)1409 (Given - Provider: Rola Daigle RN)2115 (Given - Provider: Shantanu Jacobsen, KAT) 1631 (Given - Provider: Yolande Jackson RN) 0436 (Given - Provider: Sarah Marie RN) ramelteon (ROZEREM) tablet 8 mg 8 mg, oral, Nightly PRN, sleep, Starting on 01/16/21 at 2327, Indications: Sleep-Onset Insomnia 2120 (Given - Provider: Shantanu Jacobsen RN) 2141 (Given - Provider: Sarah Marie RN) sodium chloride 0.9% flush 0.5-20 mL(Linked Group 1) 0.5-20 mL, intra-catheter, As needed, line care, Starting on 01/14/21 at 0817, Flush volume based on line type and size. Flush before and after each use. sodium chloride 0.9% flush 10 mL 10 mL, intravenous, As needed, line care, Starting on 01/16/21 at 0957, Intra-Procedure (CV) sodium chloride 0.9% flush 10 mL 10 mL, intravenous, As needed, line care, Starting on Tu01/17/21 at 1228, Intra-Procedure (CV) traMADoL (ULTRAM) tablet 50 mg 50 mg, oral, 2 times daily PRN, 1st line for pain, Starting on 01/15/21 at 1211 0152 (Given - Provider: Jean Bhardwaj RN)1723 (Given - Provider: Rola Daigle RN) 1026 (Given - Provider: Yolande Jackson, KAT)1821 (Given - Provider: Yolande Jackson RN) 0859 (Given - Provider: Whitney Levine RN) Linked Groups Order Group 1: Saline lock IV (CANCELED) Routine, Once (Routine), On 01/14/21 at 0818, For 1 occurrence And sodium chloride 0.9% flush 0.5-20 mLJump to med 0.5-20 mL, intra-catheter, Every 8 hours scheduled, First dose on 01/14/21 at 0900, Flush volume based on line type and size. And sodium chloride 0.9% flush 0.5-20 mLJump to med 0.5-20 mL, intra-catheter, As needed, line care, Starting on 01/14/21 at 0817, Flush volume based on line type and size. Flush before and after each use. Group 2: ondansetron ODT (ZOFRAN-ODT) disintegrating tablet 4 mgJump to med 4 mg, oral, Every 6 hours PRN, nausea, vomiting, Starting on 01/14/21 at 0817, Indications: Nausea and Vomiting Or ondansetron (ZOFRAN) injection 4 mg (CANCELED) 4 mg, intravenous, Administer over 2 Minutes, Every 6 hours PRN, nausea, vomiting, if not tolerating PO, Starting on 01/14/21 at 0817, Indications: Nausea and Vomiting documented in this encounter Orders Medications Ordered That Guy ht Not Have Been Administered Count Last Ordered Date First Ordered Date OLANZapine (ZyPREXA ZYDIS) d isintegrating tablet 10 mg 1 01/25/2021 LORazepam (ATIVAN) tablet 1 mg 1 01/20/2021 sodium chloride 0.9% flush 10 mL 1 01/18/20 metoprolol tartrate (LOPRESS OR) immediate release tablet 25 mg 1 01/15/2021 acetylcysteine (ACETADOTE) 3 0,000 mg in dextrose 5% 1,000 mL (30 mg/mL) infusion 1 01/14/2021 acetylcysteine (ACETADOTE) b olus from bag 150 mg/kg = 8,145 mg 1 01/14/2021 aspirin chewable tablet 324 mg 1 01/14/2021 sodium chloride 0.9% flush 0.5-20 mL 1 12/2020 Consult Count Last Ordered Date First Orde red Date CONSULT TO BEHAVIORAL HEALTH [facility] 1 021 IP CONSULT TO NUTRITION SERVICES 1 01/15/20 21 IV Count Last Ordered Date First Orde red Date INSERT PERIPHERAL IV 1 01/13/2021 Transfer Count Last Ordered Date First Orde red Date TRANSFER PATIENT 2 01/23/2021 01/18/2021 CORE MEASURES Count Last Ordered Date First Ord ered Date REASON FOR NO VTE PROPHYLAXI S - HOSPITAL ADMISSION - MEDICATIONS 1 01/18/2021 ADT Patient Update Count Last Ordered Date Firs t Ordered Date ED IP DECISION TO ADMIT 1 01/14/2021 documented in this encounter Additional Health Concerns Infection Onset Date Last Indicated Resolved Time 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
--- OUTSIDE RECORDS SUMMARY | 2024-08-08 16:03 | XMS_ITS | Encounter Summary ---
Author Organization [facility] Healthcare Address [address] [place] [address] Care Team Providers Care Pharm Spec Name Role Phone Lazarus Albert MD Primary Care Provider [phone] Encounter Details Date Type Department Care Team (Latest Contact Info) Description 01/26/2021 10:57 AM CDT - 01/26/2021 11:59 PM CDT Hospital Encounter [facility] [id number] [place] [address] Discharge Disposition: Discharge to home or self [...] on file Legal Sex Female 5:42 AM [employer] Gender Identity Not on file Sexual Orientation [...] 02/10/20 21 documented as of this encounter Discharge Disposition [...] urine 01/14/21 09/19/2019 02/09/2021 10/10/2021 4:00 AM [employer] documented as of this encounter Care Teams Pharm Spec Relationship Specialty Start Date End Date Lazarus Albert MD [address] [facility] [place] [address] PCP - General 09/25/19 03/04/24 documented as of this encounter
--- OUTSIDE RECORDS SUMMARY | 2024-08-08 16:03 | XMS_ITS | Encounter Summary ---
Author Organization [facility] Healthcare Address [address] [place] [address] Care Team Providers Care Cartography/Mapping Technician Name Role Phone Lazarus Albert MD Primary Care Provider [phone] Reason for Visit * Reason Comments Hypotension Encounter Details Date Type Department Care Team (Late st Contact Info) Description 02/08/2021 6:05 PM CDT - 02/20/2021 6:00 PM CDT Hospital Encounter [address] [phone] Doug Weaver, [address] [facility] [place] [address] [place] [id number] [address] Acute hypoxemic respiratory failure (CMS/HCC) (Primary Dx); Sepsis, due to unspecified organism, unspecified whether acute organ dysfunction present (CMS/HCC); Hospital-acquired pneumonia; Failure to thrive (0-17) Discharge Disposition: Discharge to home or self [...] often do you attend chur ch or jain services? 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 Gender Identity Not on file Sexual Orientation Not on file documented as of this encounter Last Filed Vital Signs Vital Sign Reading Time Taken Comments Blood Pressure 122/78 02/20/2021 9:00 AM CDT Pulse 110 02/20/2021 9:00 AM CDT Temperature 36.7 ??C (98.1 ??F) 02/20/2021 9:00 AM CD T Respiratory Rate 20 02/20/2021 9:00 AM CDT Oxygen Saturation 98% 02/20/2021 9:00 AM CDT Inhaled Oxygen Concentration - - Weight 48.6 kg (107 lb 1.6 oz) 02/20/2021 12:34 AM CDT Height 165 cm (5' 4.96 ) 02/08/2021 6:07 PM CDT Body Mass Index 17.84 02/08/2021 6:07 PM CDT documented in this encounter Discharge Diagnoses Diagnosis Unspecified bacterial pneumonia - UNSPECIFIED BACTERIAL PNEUMONIA Unspecified severe protein-calorie malnutrition (HCC) - UNSPECIFIED SEVERE PROTEIN-CALORIE MALNUTRITION Acute respiratory failure with hypoxia (CMS/HCC) (HCC) - ACUTE RESPIRATORY FAILURE WITH HYPOXIA Acute posthemorrhagic anemia - ACUTE POSTHEMORRHAGIC ANEMIA Hypo-osmolality and hyponatremia - HYPO-OSMOLALITY AND HYPONATREMIA Acidosis - ACIDOSIS Pleural effusion, not elsewhere classified - PLEURAL EFFUSION, NOT ELSEWHERE CLASSIFIED Acute kidney failure, unspecified (HCC) - ACUTE KIDNEY FAILURE, UNSPECIFIED Acute kidney failure, unspecified Suicidal ideations - SUICIDAL IDEATIONS Body mass index (BMI) 19.9 or less, adult - BODY MASS INDEX [BMI] 19.9 OR LESS, ADULT Atelectasis - ATELECTASIS Pulmonary collapse Bipolar disorder, current episode manic severe with psychotic features (CMS/HCC) (HCC) - BIPOLAR DISORDER, CURRENT EPISODE MANIC SEVERE WITH PSYCHOTIC FEATURES Partial intestinal obstruction, unspecified as to cause (HCC) - PARTIAL INTESTINAL OBSTRUCTION, UNSPECIFIED TO CAUSE Hyperlipidemia, unspecified - HYPERLIPIDEMIA, UNSPECIFIED Dehydration - DEHYDRATION Hypovolemia - HYPOVOLEMIA Hypokalemia - HYPOKALEMIA Hypopotassemia Cannabis abuse, uncomplicated - CANNABIS ABUSE, UNCOMPLICATED Post-traumatic stress disorder, unspecified - POST-TRAUMATIC STRESS DISORDER, UNSPECIFIED Other chronic pain - OTHER CHRONIC PAIN Endometriosis, unspecified - ENDOMETRIOSIS, UNSPECIFIED Homicidal ideations - HOMICIDAL IDEATIONS Nosocomial condition - NOSOCOMIAL CONDITION Contact with and (suspected) exposure to covid-19 - CONTACT WITH AND (SUSPECTED) EXPOSURE TO COVID-19 terminal make up operator (current) use of aspirin - LONGTERM (CURRENT) USE OF ASPIRIN terminal make up operator (current) use of bisphosphonates - THERAPEUTIC ACTIVITIES SERVICES WORKER (CURRENT) USE OF BISPHOSPHONATES Personal history of other venous thrombosis and embolism - PERSONAL HISTORY OF OTHER VENOUS THROMBOSIS AND EMBOLISM Personal history of urinary calculi - PERSONAL HISTORY OF URINARY CALCULI Personal history of nicotine dependence - PERSONAL HISTORY OF NICOTINE DEPENDENCE Acquired absence of both cervix and uterus - ACQUIRED ABSENCE OF BOTH CERVIX AND UTERUS Opioid abuse, uncomplicated (HCC) - OPIOID ABUSE, UNCOMPLICATED Sedative, hypnotic or anxiolytic abuse, uncomplicated (HCC) - SEDATIVE, HYPNOTIC OR ANXIOLYTIC ABUSE, UNCOMPLICATED Trigeminal neuralgia - TRIGEMINAL NEURALGIA Low back pain - LOW BACK PAIN Lumbago Other [facility] (current) drug therapy - OTHER LONGTERM (CURRENT) DRUG THERAPY Elevated white blood cell count, unspecified - ELEVATED WHITE BLOOD CELL COUNT, UNSPECIFIED documented in this encounter Discharge Summaries * Sharad Mcdonnell MD - 02/20/2021 6:00 PM CDT Physician Discharge Summary Patient ID: Madison Weinberg [id number] y.o. 1965 Admit date: 02/08/2021 Discharge date and time: 02/21/21 Attending Physician: Kecia Admission Diagnoses: Healthcare associated pneumonia Elevated D-dimer Hypovolemic hyponatremia Hypokalemia Metabolic acidosis Acute kidney injury Lactic acidosis Hypotension Suicidal and homicidal ideation Severe protein calorie malnutrition depression Anxiety Discharge Diagnoses: Healthcare associated pneumonia MRSA + Acute respiratory failure with hypoxia Blood cultures + for gemella haemolysans Leukocytosis Elevated D-dimer Hypokalemia Hyponatremia Metabolic acidosis Acute kidney injury Lactic acidosis Hypotension Suicidal and homicidal ideation Severe Protein calorie malnutrition Depression Anxiety Polysubstance abuse Anemia-iron def Hospital Course: Patient was admitted after initially presenting with shortness of breath and found to have healthcare associated pneumonia. Patient was admitted and started on broad-spectrum antibiotics. She did complete a course of antibiotics while here. Her hospitalization was complicated by a small-bowel obstruction which required NG tube which was eventually resolved and her diet was advanced. She was monitored by a sitter throughout her hospital stay due to her suicidal and homicidal ideation which didresolve during her time here as well and she was deemed okay for discharge home. Objective findings on day of discharge: Blood pressure 122/78, pulse 110, temperature 36.7 ??C (98.1 ??F), temperature source Oral, resp. rate 20, height 165 cm (5' 4.96 ), weight 48.6 kg (107 lb 1.6 oz), SpO2 98 %. Discharge Exam: Physical Exam Discharged Condition: stable Discharge Instructions: Diet Instructions Adult Discharge Diet Diet Type: Return to previous diet Adult Discharge Diet Diet Type: Return to previous diet Discharge Meds: Madison Weinberg Home Medication Instructions APRIL:[id number] Printed on:02/21/21 1142 Medication Information alendronate (FOSAMAX) 70 mg tablet Take 70 [...] by mouth 2 (two) times a day clotrimazole-betamethasone (LOTRISONE) cream Apply 1 application topically daily cyanocobalamin (Vitamin B-12) 1,000 mcg tablet Take 1,000 mcg by mouth daily cyclobenzaprine (FLEXERIL) 10 mg tablet Take 10 mg by mouth 2 (two) times a day dicyclomine (BENTYL) 10 mg capsule Take 10 mg by mouth 3 (three) times a day docusate sodium (COLACE) 100 mg capsule Take 100 mg by mouth daily ergocalciferol (VITAMIN D) 50,000 unit capsule Take 50,000 Units by mouth once a week SATURDAY fluticasone propionate (FLONASE) 50 mcg/actuation nasal spray Administer 2 sprays into each nostril daily folic acid (FOLVITE) 1 mg tablet Take 1 mg by mouth daily with dinner levETIRAcetam (KEPPRA) 250 mg tablet Take 250 mg by mouth 2 (two) times a day loratadine 10 mg capsule Take 10 mg by mouth daily OLANZapine (ZyPREXA ZYDIS) 10 mg disintegrating tablet Take 1 tablet (10 mg total) by mouth nightly OLANZapine (ZyPREXA ZYDIS) 5 mg disintegrating tablet Take 1 tablet (5 mg total) by mouth daily ondansetron ODT (ZOFRAN-ODT) 4 mg disintegrating tablet Take 1 tablet (4 mg total) by mouth every 6 (six) hours as needed for nausea or vomiting pantoprazole DR (PROTONIX) 40 mg EC tablet Take 40 mg by mouth every morning polyethylene glycol (MIRALAX) 17 gram packet Take 17 g by mouth daily with lunch prazosin (MINIPRESS) 1 mg capsule Take 1 mg by mouth nightly Disposition: Home, self care OUTPATIENT FOLLOW-UP: [address] [phone] Follow up Please contact [facility] today or tomorrow at [phone] and let them know Dr Ian epperson from [facility] after an inpatient stay there at [facility] and he wants you to do their virutal intensive outpatient program starting [facility] [id number] [address] [facility] [phone] Follow up crisis hotline [facility] [address] [facility] [address] [facility] [phone] Follow up [facility] behavioral health urgent care Lazarus Albert MD [address] [facility] [address] Schedule an appointment as soon as possible for a visit in 2 week(s) Patient is seen and examined and evaluated Time spent on discharge: 35 mins Signed: Sharad Mcdonnell MD 02/21/2021 11:42 AM documented in this encounter Discharge Instructions * Discharge Instructions* Jenny Walters RN - 02/20/2021 5:37 PM CDT Images from the original note were not included. Community Acquired Pneumonia WHAT YOU NEED TO KNOW: Community-acquired pneumonia (CAP) is a lung infection that you get outside of a hospital or fci setting. Your lungs become inflamed and cannot work well. CAP may be caused by bacteria, viruses, or fungi. DISCHARGE INSTRUCTIONS: Seek care immediately if: ?? You are confused and cannot think clearly. ?? You have increased trouble breathing. ?? Your lips or fingernails turn sharma or blue. Contact your healthcare provider if: ?? Your symptoms do not get better, or they get worse. ?? You are urinating less, or not at all. ?? You have questions or concerns about your condition or care. Medicines: ?? Medicines may be given to treat a bacterial, viral, or fungal infection. You may also be given medicines to dilate your bronchial tubes to help you breathe more easily. ?? Take your medicine as directed. Contact your healthcare provider if you think your medicine is not helping or if you have side effects. Tell him or her if you are allergic to any medicine. Keep a list of the medicines, vitamins, and herbs you take. Include the amounts, and when and why you take them. Bring the list or the pill bottles to follow-up visits. Carry your medicine list with you in case of an emergency. Follow up with your healthcare provider within 3 days or as directed: You may need another x-ray. Write down your questions so you remember to ask them during your visits. Deep breathing and coughing: Deep breathing helps open the air passages in your lungs. Coughing helps bring up mucus from your lungs. Take a deep breath and hold the breath as long as you can. Then push the air out of your lungs with a deep, strong cough. Spit out any mucus you have coughed up. Take 10 deep breaths in a row every hour that you are awake. Remember to follow each deep breath with acough. Do not smoke or allow others to smoke around you: Nicotine and other chemicals in cigarettes and cigars can cause lung damage. Ask your healthcare provider for information if you currently smoke and need help to quit. E-cigarettes or smokeless tobacco still contain nicotine. Talk to your healthcareprovider before you use these products. Manage CAP at home: ?? Breathe warm, moist air. This helps loosen mucus. Loosely place a warm, wet washcloth over your nose and mouth. A room humidifier may also help make the air moist. ?? Drink liquids as directed. Ask your healthcare provider how much liquid to drink each day and which liquids to drink. Liquids help make mucus thin and easier to get out of your body. ?? Gently tap your chest. This helps loosen mucus so it is easier to cough. Lie with your head lower than your chest several times a day and tap your chest. ?? Get plenty of rest. Rest helps your body heal. Prevent CAP: ?? Wash your hands often with soap and water. Carry germ-killing hand gel with you. You can use thegel to clean your hands when soap and water are not available. Do not touch your eyes, nose, or mouth unless you have washed your hands first. ?? Clean surfaces often. Clean doorknobs, countertops, cell phones, and other surfaces that are touched often. ?? Always cover your mouth when you cough. Cough into a tissue or your shirtsleeve so you do not spread germs from your hands. ?? Try to avoid people who have a cold or the flu. If you are sick, stay away from others as much as possible. ?? Ask about vaccines. You may need a vaccine to help prevent pneumonia. Get an influenza (flu) vaccine every year as soon as it becomes available. ?? 2017 [employer] Information is for End User's use only and may not be sold, redistributed or otherwise used for commercial purposes. All illustrations and images included in CareNotes?? are the copyrighted property of [employer]. or [employer]. The above information is an financial aid only. It is not intended as medical advice for individual conditions or treatments. Talk to your doctor, nurse or pharmacist before following any medical regimen to see if it is safe and effective for you. * Attachments The following attachments cannot be sent through Care Everywhere. * Bowel Obstruction (Discharge Care) (Australian) * Olanzapine (By mouth) (Australian) * Depression (Discharge Care) (Australian) * Suicide Prevention for Adults (Discharge Care) (Australian) documented in this encounter Medications at Time [...] 17 g by mouth daily with lunch cyanocobalamin (Vitamin B-12) 1,000 mcg tablet Take [...] mg by mouth daily with dinner 07/02/20 levETIRAcetam (KEPPRA) 250 mg tablet Take 250 mg by mouth 2 (two) times a day 07/02/20 21 loratadine 10 mg capsule Take 10 mg by mouth daily 07/02/20 21 OLANZapine (ZyPREXA ZYDIS) 10 mg disintegrating tabletIndications:D epression Treatment Adjunct,Mixed Bipolar I Disorder Take 1 tablet (10 mg total) by mouth nightly 30 tablet 02/20/2021 07/02/20 21 OLANZapine (ZyPREXA ZYDIS) 5 mg disintegrating tabletIndications:D epression Treatment Adjunct,Mixed Bipolar I Disorder Take 1 tablet (5 mg total) by mouth daily 30 tablet 02/20/2021 07/02/20 21 prazosin (MINIPRESS) 1 mg capsule Take 1 mg by mouth nightly 07/02/20 21 documented as of this encounter Ordered Prescriptions Prescription Sig Dispense Quantity Refills Last Filled Start Date End Date OLANZapine (ZyPREXA ZYDIS) 5 mg disintegrating tabletIndications:De pression Treatment Adjunct,Mixed Bipolar I Disorder Take 1 tablet (5 mg total) by mouth daily 30 tablet 02/20/2021 1 OLANZapine (ZyPREXA ZYDIS) 10 mg disintegrating tabletIndications:De pression Treatment Adjunct,Mixed Bipolar I Disorder Take 1 tablet (10 mg total) by mouth nightly 30 tablet 02/20/2021 1 documented in this encounter Discharge Disposition Disposition Code Departure Means Destination Discharge to home or self care documented in this encounter Progress Notes * Radha Galvin RRT - 02/20/2021 3:36 PM CDT 02/20/21 1422 Resting Information Resting HR. 120 bpm Resting SPO2 100 % Oxygen Setting ra Delivery Device na Ambulation Trials to Assess Desaturation to 88% Activity 1: Ambulated (feet) 200 feet Oxygen Setting #1 ra SPO2 (%) #1 98 % Post Ambulation Assessment HR Post Assessment 118 bpm RR Post Assessment 20 breaths/m Post Assessment Recommendation no home o2 needed $ Pulmonary Stress Test Pulm Stress Test * Marina Willis MSW - 02/20/2021 2:59 PM CDT [facility] spoke to pt and regarding dc follow up and pt chooses to follow with DR Sosa at [facility]. RN is calling Dr Sosa for psychiatric orders/prescriptions. 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 [facility] completed verbal safety plan with pt. * Shantanu Singh MD - 02/20/2021 2:03 PM CDT Pulmonary Daily Progress Chief complaint/reason for consult: Pneumonia Interval History: Patient sitting in chair on room air. Denies phlegm or hemoptysis. No pain in chest. Moving around without difficulty. No N/V/D, moving bowels. No fevers or chills. Anxious to go home. Thoracentesis was performed 02/14/2021. Pleural fluid studies reviewed. G stain with no organism. Presenting History: 55-year-old female has a history of previous DVT 2018 ,history of dyslipidemia,neuralgia, depression, posttraumatic stress, chronic abdominal pain, endometriosis, previous infected mesh. Has a history of opioid use in the past for chronic low back pain; with benzodiazepine use in the past. Was in [facility] for abdominal pain secondary to constipation while there developed suicidal ideations [place] developed more coughing diminished appetite presented to the ER found to have a right infiltrate. Serum creatinine 2.10. The patient had a V/Q scan that was low probability. Coughing has improved. Nonsmoker. No hemoptysis. Has been placed on cefepime/vancomycin. Feels better. Allergies: Allergies Allergen Reactions ??? Codeine Hives ??? Duloxetine Mental status changes Reaction: CONFUSION, ??? Gabapentin Mental status changes ??? Paxil [Paroxetine] Mental status changes ??? Wellbutrin [Bupropion] Mental status changes ??? Zoloft [Sertraline] Mental status changes Medications: Scheduled Meds:aspirin, 81 mg, oral, Every other day atorvastatin, 20 mg, oral, Nightly cyanocobalamin, 1,000 mcg, oral, Daily cyclobenzaprine, 10 mg, oral, BID dicyclomine, 10 mg, oral, TID docusate sodium, 100 mg, oral, Daily fluticasone propionate, 2 spray, each nostril, Daily folic acid, 1 mg, oral, Daily with dinner heparin, 5,000 Units, subcutaneous, Q12H ELIU levETIRAcetam, 250 mg, oral, BID OLANZapine, 10 mg, oral, Nightly OLANZapine, 5 mg, oral, Daily pantoprazole, 40 mg, intravenous, BID [Held by Provider] prazosin, 1 mg, oral, Nightly sodium chloride 0.9%, 5-10 mL, intra-catheter, Q12H [facility] Continuous Infusions: PRN Meds:.??? acetaminophen OR acetaminophen OR acetaminophen ??? dextrose OR dextrose ??? glucagon ??? LORazepam ??? OLANZapine ??? ondansetron ODT OR ondansetron ??? prochlorperazine ??? sodium chloride 0.9% ??? sodium chloride 0.9% ??? sodium chloride 0.9% ROS Above review of system reviewed on 02/20/2021 Vitals: Vitals: 02/20/21 0034 02/20/21 0455 02/20/21 0800 02/20/21 0900 BP: 151/75 152/95 122/78 BP Location: Left arm Left arm Left arm Patient Position: Lying Lying Sitting Pulse: 92 93 125 110 Resp: 18 20 Temp: 36.7 ??C (98.1 ??F) 37 ??C (98.6 ??F) 36.7 ??C (98.1 ??F) TempSrc: Oral Oral Oral SpO2: 97% 99% 98% Weight: 48.6 kg (107 lb 1.6 oz) Height: Temp (24hrs), Av.8 ??C (98.3 ??F), Min:36.7 ??C (98.1 ??F), Max:37 ??C (98.6 ??F) Intake/Output Summary (Last 24 hours) at 02/20/2021 1403 Last data filed at 02/20/2021 0900 Gross per 24 hour Intake 350 ml Output -- Net 350 ml Physical Exam Vitals reviewed. Constitutional: General: She is not in acute distress. Appearance: She is well-developed. Comments: Very thin HENT: Head: Normocephalic and atraumatic. Eyes: General: No scleral icterus. Conjunctiva/sclera: Conjunctivae normal. Neck: Thyroid: No thyromegaly. Cardiovascular: Rate and Rhythm: Normal rate and regular rhythm. Heart sounds: No murmur heard. Pulmonary: Effort: Pulmonary effort is normal. No respiratory distress. Breath sounds: Normal breath sounds. No stridor. No wheezing or rales. Abdominal: General: Bowel sounds are normal. Palpations: Abdomen is soft. Musculoskeletal: Right lower leg: No edema. Left lower leg: No edema. Skin: General: Skin is warm and dry. Neurological: Mental Status: She is alert. Lab/Radiology/Diagnostic Review: Labs: Recent Labs Lab Units 02/20/21 0453 02/19/21 0236 02/18/21 0355 02/17/21 0340 02/17/21 0340 02/16/21 1605 02/16/21 1605 WBC K/cumm 16.3* 17.1* 17.9* < > 20.6* < > 23.6* HEMOGLOBIN g/dL 9.9* 8.5* 9.0* < > 6.9* < > 7.1* HEMATOCRIT % 31.1* 26.3* 27.9* < > 21.4* < > 21.9* PLATELETS K/cumm 845* 615* 502* < > 433* < > 370 NEUTROS PCT % -- -- -- -- 82.4 -- 84.6 LYMPHS PCT % -- -- -- -- 8.4 -- 7.1 MONOS PCT % -- -- -- -- 4.6 -- 4.2 EOS PCT % -- -- -- -- 2.2 -- 1.1 < > = values in this interval not displayed. Recent Labs Lab Units 02/20/21 0448 02/19/21 1531 02/19/21 1122 02/19/21 0738 02/19/21 0236 02/18/21 0926 02/18/21 0355 SODIUM mmol/L 138 -- -- -- 139 -- 137 POTASSIUM PLASMA mmol/L 3.6 -- -- -- 3.2* -- 3.5 CHLORIDE mmol/L 107 -- -- -- 108 -- 108 CO2 mmol/L 22 -- -- -- 22 -- 22 ANIONGAP mmol/L 9 -- -- -- 9 -- 7 GLUCOSE mg/dL 91 -- -- -- 89 -- 82 POC GLUCOSE MONITOR mg/dL -- 111* 125* < > -- < > -- BUN SERUM mg/dL 3* -- -- -- 3* -- 4* CREATININE mg/dL 0.50* -- -- -- 0.50* -- 0.50* CALCIUM mg/dL 7.9* -- -- -- 7.2* -- 7.1* < > = values in this interval not displayed. Recent Labs Lab Units 02/14/21 1054 FLUID TYPE Pleural Pleural Pleural SEGS PCT FLUID % 85 LYMPHS FL % 3 PH FL 7.67 LD FL Units/L 162 GLUCOSE FL mg/dL 115 COLOR FL Straw CLARITY FLUID Clear RBC FLUID /cumm <3,000 NUCL CELL FL /cumm 1,184 Imaging: Chest x-ray 02/17/2021 demonstrates more focal consolidation in the right upper lobe with capping in the right lower lobe infiltrates a left have improved CXR 02/14/21 shows improvement in the consolidation to the right lung and new infiltrate to LLL. CT abdomen pelvis 02/12/2021 reviewed as follows:1. Several mildly to moderately dilated small bowel loops without discrete transition point to diagnose mechanical obstruction on the basis of adhesions. There is one distorted bowel loop in the pelvis with associated mild mesenteric distortion, but no clear evidence that this is associated with a discrete obstruction point or obvious internal hernia. The possibility of partial obstruction associated with multiple adhesions is always a possibility with complicated postsurgical anatomy. ?? 2. Post left hemicolectomy with moderate amount of residual colorectal stool. ?? 3. Diffuse mesenteric edema and trace ascites. ?? 4. Stomach decompressed by a nasogastric tube with mild gastric mucosal hyperenhancement, which could reflect gastritis. ?? 5. Bibasilar pneumonia with small to moderate bilateral pleural effusions. ?? 6. Diffuse aortic atherosclerosis with mild celiac and 50% superior mesenteric artery origin narrowings. No high-grade visceral artery stenosis or thrombosis. ?? 7. Small nonobstructing left renal stones. 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 rec abx per ID; completed zosyn Monitor room air Ambulatory oximetry prior to discharge. Will need follow up PA/LAT CXR, PFT at [facility] The patient was seen and examined with FEED PREPARATION OPERATOR. The patient???s labs, imaging and testing was personally reviewed along with the documented note and I agree with above. CLS * Marina Willis MSW - 02/20/2021 12:58 PM CDT [facility] spoke to Dr Carlos Sosa and reviewed clinicals and he is in agreement that pt does not meet criteria for involuntary psychiatric admission. He recommends pt be discharged home when medically clearedand can follow up with [facility] IOP program starting tomorrow. This can be done remotely to [facility]. [facility] had also discussed with pt possible the [facility] IOP program at [facility] which is closer to their home. [facility] attempted to call pts Peña Weinberg at [phone] to discuss,left message . Also attempted to reach pts room at [phone], no anwswer. Updated social work coordinator , Tina. Per Dr Sosa he is willing to continue current psychiatric meds for pt at discharge if needed and asked that [facility] staff get in touch with him regarding that. * Anabel Barnett COTA - 02/20/2021 12:36 PM CDT Occupational Therapy 02/20/21 1031 General Session Type Treatment OT Received On 02/20/21 Safe Environment Arm Band Checked;Call Light within Reach;Patient found sitting in Chair;Overbed Table within Reach (1:1 sitter present) Subjective Agreeable to Therapy Subjective Comment I really need to wash my hair. I can't wait to go home today so I can use my good shampoo. Family/Caregiver Present Yes () Precautions Precautions Fall risk;Suicide Pain Assessment Pain Assessment No/denies pain ADL ADLS (WDL) X Grooming Grooming: Where assessed Standing at sink Grooming: Level of assistance Standby Assist Grooming: Assistance with Brushing hair;Wash/dry hands LE Dressing LE Dressing: Where assessed Sitting;Chair LE Dressing: Level of assistance Distant Supervision LE Dressing: Assistance with Don/doff R sock;Don/doff L sock (cross legged method) Transfer 1 Transfer From 1 Sit Transfer Type 1 To and from Transfer to 1 Stand Transfer Device 1 No device Transfer Level of Assistance 1 Standby Assist Functional Transfers Functional Transfer: Level of assistance Standby Assist Functional Transfer: Assistance with Functional room mobility for item retrieval;Standing at sink Cognition Overall Cognitive Status WFL Arousal/Alertness Alert Attention Span Attends with cues to redirect Orientation Oriented X4 (person, place, time, situation) Following Commands Follows one step commands consistently Compliance/Behavior Anxious Assessment Prognosis Good Problem List Decreased endurance;Decreased ADL independence;Decreased IADL independence Plan Plan Continue with current plan;If this is the last note, consider this the discharge summary Recommendation/Plan OT Recommendation Other (return to [facility]) OT Frequency 3-5x/wk Treatment/Interventions ADL/IADL retraining;Balance Training;Endurance training;Functional activity;Functional mobility training;Functional transfer training;Strengthening;Therapeutic activity;Therapeutic exercise;Transfer training;Upper extremity motor function/functional skills Progress Progressing toward goals OT - Next Appointment 02/21/21 Cosigned by Mckayla Gandhi OT at 02/20/2021 1:08 PM CDT * Marina Willis MSW - 02/20/2021 9:34 AM CDT [facility] received report from [facility] Rylee Miranda LCSW who met with pt and yesterday at length. The pt is adamant about wanting to be discharged home. Pt also called this [facility] this am to discuss her care plan.She continues to deny suicidal or homicidal thoughts and wants to be discharged home to follow up with an IOP program possibly at [facility] located in [facility]. It is located about 30 minutes from their home in [facility] [place] [facility]. The pts continued to express concerns about pts panic attacks and needing her medication to be continually adjusted However there appears to be no reason this cannot be done in an intensive outpatient or outpatient setting. Pt does not meet criteria for involuntary psychiatric commitment. Will discuss this plan with attending and [facility]. * Sharad Mcdonnell MD - 02/20/2021 8:57 AM CDT Daily Progress Subjective Patient reports no complaints. Feeling better. Objective Vitals: Most Recent : Vitals: 02/20/21 0455 BP: 152/95 Pulse: 93 Resp: 18 Temp: 37 ??C (98.6 ??F) SpO2: 99% I/O last 2 completed shifts: In: 120 [I.V.:10; IV Piggyback:110] Out: - Physical Exam: Physical Exam Constitutional: AAOx3, NAD, cooperative Heart: RRR no M/R/G Lungs: CTA B/L, normal work of breathing Abdomen: s, mildly tender diffusely, +bowel sounds, no organomegaly Ext: No LE edema, good distal pulses Neuro: Oriented X3, No cranial or peripheral nerve deficits Psych: normal mood and affect Lab Review: I personally reviewed these images. Recent laboratory data was reviewed. Medications and allergies were reviewed. Imaging: NM Pulmonary Ventilation and Perfusion Imaging Result Date: 02/09/2021 1. Very low probability for pulmonary embolism. 2. The patient refused to wear the mask for the entire ventilation portion of the exam. 3. Decreased ventilation at the right lung initially, likely related to the patient's presumed pneumonia. Abnormal washout of xenon from the right lung and left lung base. Electronically signed by: Reena Carranza M.D. XR Chest 1 Vw portable Result Date: 02/09/2021 Diffuse right lung opacity concerning for pneumonia Electronically signed by: Lolly Redding M.D. Diagnostics: No results found for this or any previous visit. Assessment/Plan Healthcare associated pneumonia MRSA + Acute respiratory failure with hypoxia Blood cultures + for gemella haemolysans Leukocytosis Elevated D-dimer Hypokalemia Hyponatremia Metabolic acidosis Acute kidney injury Lactic acidosis Hypotension Suicidal and homicidal ideation Severe Protein calorie malnutrition Depression Anxiety Polysubstance abuse Anemia-iron def - IV zosyn per ID recommendations - blood cultures from February 08 showed Gamella - follow WBC count - improving - monitor H&H, transfused 1 unit 02/17 - replace K+ prn - wean O2 as tolerated - follow potassium and magnesium and replace if needed - NG tube removed - monitor renal function and electrolytes - VQ low prob for PE - completed 3 days of IV iron - appreciate surgery recommendations - appreciate ID recommendations - appreciate pulmonology recommendations - sitter at bedside - will need evaluation per psychiatry to go back to [place] Discharge Planning: Hopefully discharge today reviewed and discussed with team and reviewed and protocol in place * Emilia Stone, PT - 02/19/2021 2:37 PM CDT Physical Therapy 02/19/21 1435 PT Last Visit Session Type Discharge Other Comments Other PT Comments observed pt ambulating in suero independently (with spouse and sitter) x 2 today; no indication for continued IP PT as she is demonstrating independence with mobility Recommendation/Plan PT Recommendation/Plan No further PT indicated PT Recommendation/Plan Comments defer to psych for dc plan PT Frequency Other (comment) (DC from PT services) * Rylee Miranda CARPENTER REFRIGERATOR - 02/19/2021 12:30 PM CDT Behavioral Health Services [facility] Follow-Up Note Please notify Mental Health, , when patient is medically cleared to be evaluated to determine if psychiatric transfer criteria is present. Patient's , Quentin, at bedside. A review of today's physician notes reported patient reports no complaints. Feels better. Sad. Normal mood and affect. A review of Automatic Gluing Machine Operator/Hammerer Helper notes indicate anticipated discharge to [facility]. Spoke to patient's nurse, Lynda, to discuss the patient's current status. Patient is on 1:1. Patient accepts medication without difficulty, appetite is fair poor, and no concerns reported regarding sleep. RN reported patient appears anxious. RN denied patient exhibiting behaviors that interfere with the staff's ability to provide care. Patient denied suicidal or homicidal thoughts. My and I have worked everything out . Patient reported depression related to her desire to be discharged home. Patient reported anxiety at baseline. Patient rated her current level of anxiety at 4-5/10. Patient described her sleep and appetiteas okay . Patient denied symptoms of psychosis with none observed. Symptoms of darius not observed.Patient reported she does not want to be transferred to [facility] at discharge. Patientverbalized willingness to be transferred to other [facility] to continue psychiatric treatment. reported he believes the patient has improved since her admission to [facility]. reported he does not believe the patient is an immediate harm to herself or him. wantsthe patient transferred back to [facility] to continue psychotropic medication adjustments. believes [facility] was on the right track . reported the current active medications stop working too early . is concerned about her next meltdown . [place] Suicide Severity Rating Scale 1. Wish to be : No 2. Suicidal Thoughts: No 3. Suicidal Thoughts with Method Without Specific Plan or Intent to Act: No 4. Suicidal Intent Without Specific Plan: No 5. Suicide Intent with Specific Plan: No 6. Suicide Behavior Question: Yes How long ago did you do any of these?: Within the last three months Patient was seen by STEVEN Rivas, [facility], on 02/10/21. Please see full note. PRIMARY CONSULT DIAGNOSIS: Bipolar d/o current episode manic severe with psychotic features F31.2 SHAYLA F41.0 PTSD, chronic F43.12 Cannabis use d/o F12.20 Recommendations: -D/W case with Dr Sosa. -We recommend pt coming back inpatient at [facility] for further psychiatric treatment when medically stable. -Continue scheduled and PRN Zyprexa zydis -Pt currently denying SI/HI. Continue suicidal precautions. -May d/c 1:1 sister if pt contracts for safety. ?? Current psychotropic medications: Zyprexa Zydis 10 mg QHS. Currently on hold. Zyprexa Zydis 5 mg daily. Currently on hold. Ativan 0.5 mg Q8H PRN. Last administered on 02/19. Zyprexa Zydis 5 mg Q8H PRN. Last administered on 02/19. Thank you for the opportunity to participate in this patient's care. [facility] will continue to follow. Recommendations/Suggestions were made to nurse to help accommodate the patient due to their historywith For Trauma: Knock before entering room and ask permission to enter room, Ask permission beforetouching patient, Let patient see you and the activities you are performing while in the room, Do not startle patient and Do not shake them to wake them up.?? Call their name from across the room/endof bed For Anxiety: Talk calmly with patient and Inform patient of anticipated testing, treatments, therapies, etc. as soon as possible Thank you for the opportunity to participate in??this patient's care.?? [facility]??will continue to follow.?? Rylee Miranda LCSW Qualified Mental Health Professional Behavioral Health Intervention Team [phone] ~~ This was a telepsych /telemedicine visit which took place via Interactive Video Conferencing. During the visit, I was located at a private residence and the patient was located in room 310. After being given an opportunity to ask questions about and discuss this type of visit, the patient verbally consented to proceeding with the video visit. The patient agrees to participate in a psychiatric assessment service via Interactive Video Conferencing with a Qualified Mental Health Professional. Patient understands that their privacy and confidentiality will be protected at all times and all reasonable and appropriate measures will be made to eliminate all confidentiality risks. Patient understands that the services they receive are part of their hospital record. Patient is aware that the [facility] and ED Staff will have access to their relevant medical information including psychiatric and/or psychological information, alcohol and/or drug use and mental health records. Patient understands this consent is part of their medical record. ~~ * Sharad Mcdonnell MD - 02/19/2021 9:04 AM CDT Daily Progress Subjective Patient reports no complaints. Passing gas and had a bowel movement. Does not feel well after meals. Objective Vitals: Most Recent : Vitals: 02/19/21 0731 BP: 143/73 Pulse: 95 Resp: 20 Temp: 36.7 ??C (98.1 ??F) SpO2: 99% I/O last 2 completed shifts: In: 460 [P.O.:240; I.V.:10; IV Piggyback:210] Out: 550 [Urine:550] Physical Exam: Physical Exam Constitutional: AAOx3, NAD, cooperative Heart: RRR no M/R/G Lungs: CTA B/L, normal work of breathing Abdomen: s, mildly tender diffusely, +bowel sounds, no organomegaly Ext: No LE edema, good distal pulses Neuro: Oriented X3, No cranial or peripheral nerve deficits Psych: normal mood and affect Lab Review: I personally reviewed these images. Recent laboratory data was reviewed. Medications and allergies were reviewed. Imaging: NM Pulmonary Ventilation and Perfusion Imaging Result Date: 02/09/2021 1. Very low probability for pulmonary embolism. 2. The patient refused to wear the mask for the entire ventilation portion of the exam. 3. Decreased ventilation at the right lung initially, likely related to the patient's presumed pneumonia. Abnormal washout of xenon from the right lung and left lung base. Electronically signed by: Reena Carranza M.D. XR Chest 1 Vw portable Result Date: 02/09/2021 Diffuse right lung opacity concerning for pneumonia Electronically signed by: Lolly Redding M.D. Diagnostics: No results found for this or any previous visit. Assessment/Plan Healthcare associated pneumonia MRSA + Acute respiratory failure with hypoxia Blood cultures + for gemella haemolysans Leukocytosis Elevated D-dimer Hypokalemia Hyponatremia Metabolic acidosis Acute kidney injury Lactic acidosis Hypotension Suicidal and homicidal ideation Severe Protein calorie malnutrition Depression Anxiety Polysubstance abuse Anemia-iron def - IV zosyn per ID recommendations - blood cultures from February 08 showed Gamella - follow WBC count - improving - monitor H&H, transfused 1 unit 02/17 - replace K+ - wean O2 as tolerated - follow potassium and magnesium and replace if needed - NG tube removed - continue IV fluids - monitor sodium - monitor renal function and electrolytes - VQ low prob for PE - completed 3 days of IV iron - appreciate surgery recommendations - appreciate ID recommendations - appreciate pulmonology recommendations - sitter at bedside - will need evaluation per psychiatry to go back to [facility] Discharge Planning: Patient will need another night of inpatient care for the above medical issues reviewed and discussed with team and reviewed and protocol in place * Brii Vital MD - 02/19/2021 8:15 AM CDT General Surgery Daily Progress Subjective Interval History: breakfast didn't settle well but denies nausea. Passing flatus and had bm Objective Physical Exam: Abdomen: Bowel sounds present: Yes Lab/Radiology/Diagnostic Review: Laboratory review: Lab results in the last 24 hours: Recent Results (from the past 24 hour(s)) POCT glucose Collection Time: 02/18/21 9:26 AM Result Value Ref Range Glucose, POC 79 70 - 110 mg/dL POCT glucose Collection Time: 02/18/21 12:50 PM Result Value Ref Range Glucose, POC 91 70 - 110 mg/dL POCT glucose Collection Time: 02/18/21 8:42 PM Result Value Ref Range Glucose, POC 74 70 - 110 mg/dL POCT glucose Collection Time: 02/18/21 11:23 PM Result Value Ref Range Glucose, POC 121 (H) 70 - 110 mg/dL Basic metabolic panel Collection Time: 02/19/21 2:36 AM Result Value Ref Range Sodium 139 135 - 145 mmol/L Potassium, pl 3.2 (L) 3.3 - 4.9 mmol/L Chloride 108 97 - 110 mmol/L CO2 22 22 - 32 mmol/L Anion gap 9 2 - 15 mmol/L BUN 3 (L) 8 - 25 mg/dL Creatinine 0.50 (L) 0.60 - 1.10 mg/dL Glucose 89 70 - 199 mg/dL Calcium 7.2 (L) 8.5 - 10.3 mg/dL CBC without differential Collection Time: 02/19/21 2:36 AM Result Value Ref Range WBC 17.1 (H) 3.8 - 9.9 K/cumm Hgb 8.5 (L) 11.9 - 15.5 g/dL Hct 26.3 (L) 35.6 - 45.5 % Plt 615 (H) 150 - 400 K/cumm MPV 8.8 (L) 9.1 - 12.3 fL RBC 2.90 (L) 3.90 - 5.20 M/cumm MCV 90.7 81.3 - 96.4 fL MCH 29.3 27.1 - 33.3 pg MCHC 32.3 32.3 - 35.7 g/dL RDW CV 14.7 11.1 - 14.9 % RDW SD 47.4 35.7 - 48.1 fL Magnesium Collection Time: 02/19/21 2:36 AM Result Value Ref Range Magnesium 1.7 1.4 - 2.5 mg/dL eGFR Collection Time: 02/19/21 2:36 AM Result Value Ref Range GFR 109 mL/min/1.73 m2 POCT glucose Collection Time: 02/19/21 7:38 AM Result Value Ref Range Glucose, POC 100 70 - 110 mg/dL Vitals: 24hr Min/Max: Temp Min: 36.7 ??C (98.1 ??F) Max: 37.3 ??C (99.2 ??F) Pulse Min: 89 Max: 121 BP Min: 124/85 Max: 161/70 Resp Min: 16 Max: 20 SpO2 Min: 97 % Max: 100 % Most Recent : Vitals: 02/19/21 0731 BP: 143/73 Pulse: 95 Resp: 20 Temp: 36.7 ??C (98.1 ??F) SpO2: 99% I/O last 2 completed shifts: In: 460 [P.O.:240; I.V.:10; IV Piggyback:210] Out: 550 [Urine:550] No intake/output data recorded. Assessment and Plan: PSBO, resolved, will sign off. Please call if situation changes pneumonia * Jan Foreman MD - 02/19/2021 8:00 AM CDT [facility] at [facility] Gastroenterology Consult Follow up Note Chief Complaint: Abdominal pain Subjective : Improvement in abdominal pain Review of Systems No hemoptysis. No melena. No hematemesis. Objective Medications: Allergies Allergen Reactions ??? Codeine Hives ??? Duloxetine Mental status changes Reaction: CONFUSION, ??? Gabapentin Mental status changes ??? Paxil [Paroxetine] Mental status changes ??? Wellbutrin [Bupropion] Mental status changes ??? Zoloft [Sertraline] Mental status changes Scheduled Meds:[Held by Provider] aspirin, 81 mg, oral, Every other day [Held by Provider] atorvastatin, 20 mg, oral, Nightly [Held by Provider] cyanocobalamin, 1,000 mcg, oral, Daily [Held by Provider] cyclobenzaprine, 10 mg, oral, BID [Held by Provider] dicyclomine, 10 mg, oral, TID [Held by Provider] docusate sodium, 100 mg, oral, Daily fluticasone propionate, 2 spray, each nostril, Daily [Held by Provider] folic acid, 1 mg, oral, Daily with dinner levETIRAcetam, 250 mg, intravenous, Q12H ELIU [Held by Provider] levETIRAcetam, 250 mg, oral, BID [Held by Provider] OLANZapine, 10 mg, oral, Nightly [Held by Provider] OLANZapine, 5 mg, oral, Daily pantoprazole, 40 mg, intravenous, BID [Held by Provider] prazosin, 1 mg, oral, Nightly sodium chloride 0.9%, 5-10 mL, intra-catheter, Q12H ELIU Continuous Infusions: PRN Meds:??? acetaminophen OR acetaminophen OR acetaminophen ??? dextrose OR dextrose ??? glucagon ??? LORazepam ??? OLANZapine ??? ondansetron ODT OR ondansetron ??? prochlorperazine ??? sodium chloride 0.9% ??? sodium chloride 0.9% ??? sodium chloride 0.9% Physical Exam: Intake/Output Summary (Last 24 hours) at 02/19/2021 0800 Last data filed at 02/18/2021 1320 Gross per 24 hour Intake 460 ml Output 550 ml Net -90 ml Vital signs for last 24 hours: Vitals: 02/19/21 0731 BP: 143/73 Pulse: 95 Resp: 20 Temp: 36.7 ??C (98.1 ??F) SpO2: 99% BMI: Body mass index is 18.07 kg/m??. General : Alert, cooperative, no distress Head: Normocephalic, without obvious abnormality, atraumatic Eyes: Conjuctiva normal, sclera anicteric Ears: Normal external ear canals, both ears Throat: Oropharynx clear, tongue normal Lungs: Clear to auscultation bilaterally. Heart: Regular rate and rhythm, S1 and S2 normal. Abdomen: Soft, midline exploratory laparotomy scar . Mild tenderness to palpation in the lower abdomen. bowel sounds positive. No rebound Extremities: Extremities normal, atraumatic, no cyanosis Skin: Skin texture, turgor normal Lymph nodes: Cervical, supraclavicular, and axillary nodes normal Neurologic: Cranial nerves grossly nonfocal. Moves all extremities well. Psychiatric: Sad Labs: Recent Labs Lab Units 02/19/21 0236 02/18/21 0355 02/17/21 0340 WBC K/cumm 17.1* 17.9* 20.6* HEMOGLOBIN g/dL 8.5* 9.0* 6.9* HEMATOCRIT % 26.3* 27.9* 21.4* PLATELETS K/cumm 615* 502* 433* Recent Labs Lab Units 02/19/21 0738 02/19/21 0236 02/18/21 2323 02/18/21 0926 02/18/21 0355 02/17/21 0740 02/17/21 0340 SODIUM mmol/L -- 139 -- -- 137 -- 137 POTASSIUM PLASMA mmol/L -- 3.2* -- -- 3.5 -- 3.1* CHLORIDE mmol/L -- 108 -- -- 108 -- 105 CO2 mmol/L -- 22 -- -- 22 -- 25 BUN SERUM mg/dL -- 3* -- -- 4* -- 3* CREATININE mg/dL -- 0.50* -- -- 0.50* -- 0.50* [id number] mL/min/1.73 m2 -- 109 -- -- 109 -- 109 GLUCOSE mg/dL -- 89 -- -- 82 < > 90 POC GLUCOSE MONITOR mg/dL 100 -- 121* < > -- < > -- ANIONGAP mmol/L -- 9 -- -- 7 -- 7 CALCIUM mg/dL -- 7.2* -- -- 7.1* -- 7.1* MAGNESIUM mg/dL -- 1.7 -- -- 2.0 -- 1.9 < > = values in this interval not displayed. Recent Labs Lab Units 02/14/21 1001 APTT sec 30 Imaging: XR Chest Pa Lateral 2 Views Result Date: 02/17/2021 1. Small bilateral pleural effusions with bibasilar atelectasis or infiltrate, unchanged. 2. More focal opacity in the right upper lobe compatible with the history of pneumonia. Recommend following to complete resolution. 3. Radiographic contrast within the right colon. Mildly distended loops of small bowel in the left mid abdomen. This is nonspecific. The patient is not felt to be obstructed as the oral contrast has reached the colon. The appearance is improved when compared to the prior smallbowel obstruction of 02/14/2021. Electronically signed by: Reena Carranza M.D. XR Abdomen Erect and or Decubitus 2 Views Result Date: 02/17/2021 1. Small bilateral pleural effusions with bibasilar atelectasis or infiltrate, unchanged. 2. More focal opacity in the right upper lobe compatible with the history of pneumonia. Recommend following to complete resolution. 3. Radiographic contrast within the right colon. Mildly distended loops of small bowel in the left mid abdomen. This is nonspecific. The patient is not felt to be obstructed as the oral contrast has reached the colon. The appearance is improved when compared to the prior smallbowel obstruction of 02/14/2021. Electronically signed by: Reena Carranza M.D. Assessment & Plan: 1.??Partial small-bowel obstruction. Tolerating diet and had a bowel movement. Advance diet as per surgical team. ?? 2.??Multifocal pneumonia. Antibiotics per ID team. 3.??Acute post hemorrhagic anemia. ??Transfuse to keep hemoglobin above 7. Upper endoscopy outpatient with her regular GI. At this time patient is high risk cardiopulmonary complications given her respiratory issues and recently resolved severe sepsis. ?? 4.??Lower abdominal pain. Present on admission. Some improvement. Treat small- bowel obstruction as above. 5.??Gemella haemolysans bacteremia. Iv abx 6.Iron def anemia d/t chronic blood loss. Replete iron. Transfuse to keep Hgb >7 ?? This note was compiled in word document from a collection of sources including [employer], my previous/old EPIC notes and edited to include today's visit information. By signing this note, I attest that all information contained herein is authored by myself. Thank you for allowing us to participate in the care of your patient. Please call if you have any additional questions. Jan Foreman MD Office * Sharad Azul MD - 02/19/2021 6:48 AM CDT Pulmonary Daily Progress Chief complaint/reason for consult: Pneumonia Interval History: Patient on off 1 liter/minute of oxygen no other significant distress. Patient is afebrile Thoracentesis was performed 02/14/2021. Pleural fluid studies reviewed. G stain with no organism. Presenting History: 55-year-old female has a history of previous DVT 2018 ,history of dyslipidemia,neuralgia, depression, posttraumatic stress, chronic abdominal pain, endometriosis, previous infected mesh. Has a history of opioid use in the past chronic low . back pain benzodiazepine use in the past. Was in [facility] for abdominal pain secondary to constipation while there developed suicidal ideations [place] at [place] developed more coughing diminished appetite presented to the ER found to have a right infiltrate. Serum creatinine 2 0.1. The patient had a V/Q scan that was low probability. Coughing has improved. Nonsmoker. No hemoptysis. Has been placed on cefepime/vancomycin. Feels better. Allergies: Allergies Allergen Reactions ??? Codeine Hives ??? Duloxetine Mental status changes Reaction: CONFUSION, ??? Gabapentin Mental status changes ??? Paxil [Paroxetine] Mental status changes ??? Wellbutrin [Bupropion] Mental status changes ??? Zoloft [Sertraline] Mental status changes Medications: Scheduled Meds:[Held by Provider] aspirin, 81 mg, oral, Every other day [Held by Provider] atorvastatin, 20 mg, oral, Nightly [Held by Provider] cyanocobalamin, 1,000 mcg, oral, Daily [Held by Provider] cyclobenzaprine, 10 mg, oral, BID [Held by Provider] dicyclomine, 10 mg, oral, TID [Held by Provider] docusate sodium, 100 mg, oral, Daily fluticasone propionate, 2 spray, each nostril, Daily [Held by Provider] folic acid, 1 mg, oral, Daily with dinner levETIRAcetam, 250 mg, intravenous, Q12H ELIU [Held by Provider] levETIRAcetam, 250 mg, oral, BID [Held by Provider] OLANZapine, 10 mg, oral, Nightly [Held by Provider] OLANZapine, 5 mg, oral, Daily pantoprazole, 40 mg, intravenous, BID [Held by Provider] prazosin, 1 mg, oral, Nightly sodium chloride 0.9%, 5-10 mL, intra-catheter, Q12H ELIU Continuous Infusions: PRN Meds:.??? acetaminophen OR acetaminophen OR acetaminophen ??? dextrose OR dextrose ??? glucagon ??? LORazepam ??? OLANZapine ??? ondansetron ODT OR ondansetron ??? prochlorperazine ??? sodium chloride 0.9% ??? sodium chloride 0.9% ??? sodium chloride 0.9% ROS Above review of system reviewed on 02/19/2021 Vitals: Vitals: 02/18/21 1926 02/18/21195402/18/21 2320 02/19/21 0235 BP: 124/85 161/70 136/78 132/89 BP Location: Left arm Left arm Left arm Left arm Patient Position: Lying Sitting Lying;HOB 30 degrees Lying;HOB 30 degrees Pulse: 94 121 99 101 Resp: 16 18 18 20 Temp: 37.2 ??C (99 ??F) 37.3 ??C (99.2 ??F) 37 ??C (98.6 ??F) 37 ??C (98.6 ??F) TempSrc: Oral Oral Oral Oral SpO2: 98% 99% 99% 99% Weight: Height: Temp (24hrs), Av ??C (98.6 ??F), Min:36.8 ??C (98.2 ??F), Max:37.3 ??C (99.2 ??F) Intake/Output Summary (Last 24 hours) at 02/19/2021 0648 Last data filed at 02/18/2021 1320 Gross per 24 hour Intake 460 ml Output 550 ml Net -90 ml Physical Exam Constitutional: General: She is not in acute distress. Appearance: She is well-developed. Comments: Very thin HENT: Head: Normocephalic and atraumatic. Eyes: General: No scleral icterus. Conjunctiva/sclera: Conjunctivae normal. Neck: Thyroid: No thyromegaly. Cardiovascular: Rate and Rhythm: Normal rate and regular rhythm. Heart sounds: No murmur heard. Pulmonary: Effort: Pulmonary effort is normal. No respiratory distress. Breath sounds: Normal breath sounds. No stridor. No wheezing or rales. Abdominal: General: Bowel sounds are normal. Palpations: Abdomen is soft. Neurological: Mental Status: She is alert. Lab/Radiology/Diagnostic Review: Labs: Recent Labs Lab Units 02/19/21 0236 02/18/21 0355 02/17/21 0340 02/16/21 1605 02/16/21 1605 WBC K/cumm 17.1* 17.9* 20.6* < > 23.6* HEMOGLOBIN g/dL 8.5* 9.0* 6.9* < > 7.1* HEMATOCRIT % 26.3* 27.9* 21.4* < > 21.9* PLATELETS K/cumm 615* 502* 433* < > 370 NEUTROS PCT % -- -- 82.4 -- 84.6 LYMPHS PCT % -- -- 8.4 -- 7.1 MONOS PCT % -- -- 4.6 -- 4.2 EOS PCT % -- -- 2.2 -- 1.1 < > = values in this interval not displayed. Recent Labs Lab Units 02/19/21 0236 02/18/21 2323 02/18/21 2042 02/18/21 0926 02/18/21 0355 02/17/21 0740 02/17/21 0340 SODIUM mmol/L 139 -- -- -- 137 -- 137 POTASSIUM PLASMA mmol/L 3.2* -- -- -- 3.5 -- 3.1* CHLORIDE mmol/L 108 -- -- -- 108 -- 105 CO2 mmol/L 22 -- -- -- 22 -- 25 ANIONGAP mmol/L 9 -- -- -- 7 -- 7 GLUCOSE mg/dL 89 -- -- -- 82 < > 90 POC GLUCOSE MONITOR mg/dL -- 121* 74 < > -- < > -- BUN SERUM mg/dL 3* -- -- -- 4* -- 3* CREATININE mg/dL 0.50* -- -- -- 0.50* -- 0.50* CALCIUM mg/dL 7.2* -- -- -- 7.1* -- 7.1* < > = values in this interval not displayed. Imaging: Chest x-ray 02/17/2021 demonstrates more focal consolidation in the right upper lobe with capping in the right lower lobe infiltrates a left have improved CXR 02/14/21 shows improvement in the consolidation to the right lung and new infiltrate to LLL. CT abdomen pelvis 02/12/2021 reviewed as follows:1. Several mildly to moderately dilated small bowel loops without discrete transition point to diagnose mechanical obstruction on the basis of adhesions. There is one distorted bowel loop in the pelvis with associated mild mesenteric distortion, but no clear evidence that this is associated with a discrete obstruction point or obvious internal hernia. The possibility of partial obstruction associated with multiple adhesions is always a possibility with complicated postsurgical anatomy. ?? 2. Post left hemicolectomy with moderate amount of residual colorectal stool. ?? 3. Diffuse mesenteric edema and trace ascites. ?? 4. Stomach decompressed by a nasogastric tube with mild gastric mucosal hyperenhancement, which could reflect gastritis. ?? 5. Bibasilar pneumonia with small to moderate bilateral pleural effusions. ?? 6. Diffuse aortic atherosclerosis with mild celiac and 50% superior mesenteric artery origin narrowings. No high-grade visceral artery stenosis or thrombosis. ?? 7. Small nonobstructing left renal stones. 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 rec abx per ID Oxygen as needed * Jan Foreman MD - 02/18/2021 1:14 PM CDT [facility] at [facility] Gastroenterology Consult Follow up Note Chief Complaint: Abdominal pain Subjective : Improvement in abdominal pain. Passing flatus. Had a bowel movement. Tolerating liquid diet. Review of Systems No hemoptysis. No melena. No hematemesis. Objective Medications: Allergies Allergen Reactions ??? Codeine Hives ??? Duloxetine Mental status changes Reaction: CONFUSION, ??? Gabapentin Mental status changes ??? Paxil [Paroxetine] Mental status changes ??? Wellbutrin [Bupropion] Mental status changes ??? Zoloft [Sertraline] Mental status changes Scheduled Meds:[Held by Provider] aspirin, 81 mg, oral, Every other day [Held by Provider] atorvastatin, 20 mg, oral, Nightly [Held by Provider] cyanocobalamin, 1,000 mcg, oral, Daily [Held by Provider] cyclobenzaprine, 10 mg, oral, BID [Held by Provider] dicyclomine, 10 mg, oral, TID [Held by Provider] docusate sodium, 100 mg, oral, Daily fluticasone propionate, 2 spray, each nostril, Daily [Held by Provider] folic acid, 1 mg, oral, Daily with dinner levETIRAcetam, 250 mg, intravenous, Q12H ELIU [Held by Provider] levETIRAcetam, 250 mg, oral, BID [Held by Provider] OLANZapine, 10 mg, oral, Nightly [Held by Provider] OLANZapine, 5 mg, oral, Daily pantoprazole, 40 mg, intravenous, BID piperacillin-tazobactam, 4.5 g, intravenous, Q8H ELIU [Held by Provider] prazosin, 1 mg, oral, Nightly sodium chloride 0.9%, 5-10 mL, intra-catheter, Q12H ELIU Continuous Infusions: PRN Meds:??? acetaminophen OR acetaminophen OR acetaminophen ??? dextrose OR dextrose ??? glucagon ??? LORazepam ??? OLANZapine ??? ondansetron ODT OR ondansetron ??? prochlorperazine ??? sodium chloride 0.9% ??? sodium chloride 0.9% ??? sodium chloride 0.9% Physical Exam: Intake/Output Summary (Last 24 hours) at 02/18/2021 1314 Last data filed at 02/18/2021 1235 Gross per 24 hour Intake 940 ml Output 750 ml Net 190 ml Vital signs for last 24 hours: Vitals: 02/18/21 1245 BP: 142/63 Pulse: 104 Resp: 16 Temp: 36.8 ??C (98.3 ??F) SpO2: 100% BMI: Body mass index is 18.04 kg/m??. General : Alert, cooperative Head: Normocephalic, without obvious abnormality, atraumatic Eyes: Conjuctiva normal, sclera anicteric Ears: Normal external ear canals, both ears Throat: Oropharynx clear, tongue normal Lungs: Clear to auscultation bilaterally. Heart: Regular rate and rhythm, S1 and S2 normal. Abdomen: Soft, midline Xlap scar. Mild tenderness to palpation. Bowel sounds positive. No rebound Extremities: Extremities normal, atraumatic, no cyanosis Skin: Skin texture, turgor normal Lymph nodes: Cervical, supraclavicular, and axillary nodes normal Neurologic: Cranial nerves grossly nonfocal. Moves all extremities well. Labs: Recent Labs Lab Units 02/18/21 0355 02/17/21 0340 02/16/21 1605 WBC K/cumm 17.9* 20.6* 23.6* HEMOGLOBIN g/dL 9.0* 6.9* 7.1* HEMATOCRIT % 27.9* 21.4* 21.9* PLATELETS K/cumm 502* 433* 370 Recent Labs Lab Units 02/18/21 1250 02/18/21 0926 02/18/21 0355 02/17/21 0740 02/17/21 0340 02/16/21 1756 02/16/21 1605 02/16/21 0914 02/16/21 0327 SODIUM mmol/L -- -- 137 -- 137 -- 138 -- 141 POTASSIUM PLASMA mmol/L -- -- 3.5 -- 3.1* -- 3.0* -- 2.7* CHLORIDE mmol/L -- -- 108 -- 105 -- 104 -- 106 CO2 mmol/L -- -- 22 -- 25 -- 26 -- 27 BUN SERUM mg/dL -- -- 4* -- 3* -- 3* -- 4* CREATININE mg/dL -- -- 0.50* -- 0.50* -- 0.50* -- 0.60 [id number] mL/min/1.73 m2 -- -- 109 -- 109 -- 109 -- 103 GLUCOSE mg/dL -- -- 82 < > 90 < > 95 -- 123 POC GLUCOSE MONITOR mg/dL 91 79 -- < > -- < > -- < > -- ANIONGAP mmol/L -- -- 7 -- 7 -- 8 -- 8 CALCIUM mg/dL -- -- 7.1* -- 7.1* -- 7.4* -- 7.2* MAGNESIUM mg/dL -- -- 2.0 -- 1.9 -- -- -- 1.5 < > = values in this interval not displayed. Recent Labs Lab Units 02/14/21 1001 APTT sec 30 Imaging: XR Chest Pa Lateral 2 Views Result Date: 02/17/2021 1. Small bilateral pleural effusions with bibasilar atelectasis or infiltrate, unchanged. 2. More focal opacity in the right upper lobe compatible with the history of pneumonia. Recommend following to complete resolution. 3. Radiographic contrast within the right colon. Mildly distended loops of small bowel in the left mid abdomen. This is nonspecific. The patient is not felt to be obstructed as the oral contrast has reached the colon. The appearance is improved when compared to the prior smallbowel obstruction of 02/14/2021. Electronically signed by: Reena Carranza M.D. XR Abdomen Erect and or Decubitus 2 Views Result Date: 02/17/2021 1. Small bilateral pleural effusions with bibasilar atelectasis or infiltrate, unchanged. 2. More focal opacity in the right upper lobe compatible with the history of pneumonia. Recommend following to complete resolution. 3. Radiographic contrast within the right colon. Mildly distended loops of small bowel in the left mid abdomen. This is nonspecific. The patient is not felt to be obstructed as the oral contrast has reached the colon. The appearance is improved when compared to the prior smallbowel obstruction of 02/14/2021. Electronically signed by: Reena Carranza M.D. Assessment & Plan: 1. Partial small-bowel obstruction. Nasogastric tube removed. Tolerating liquid diet and had a bowel movement. Advance diet as per surgical team. 2. Multifocal pneumonia. IV antibiotics per Pulmonary team and ID team. 3. Acute post hemorrhagic anemia. Transfuse to keep hemoglobin above 7. Upper endoscopy outpatient with her regular GI. At this time patient is high risk cardiopulmonary complications given her respiratory issues and recently resolved severe sepsis. 4. Lower abdominal pain. IV antibiotics. Treat small-bowel obstruction as above. 5. Gemella haemolysans bacteremia. Iv abx 6.Iron def anemia d/t chronic blood loss. Replete iron. Transfuse to keep Hgb >7 This note was compiled in word document from a collection of sources including [employer], my previous/old EPIC notes and edited to include today's visit information. By signing this note, I attest that all information contained herein is authored by myself. Thank you for allowing us to participate in the care of your patient. Please call if you have any additional questions. Jan Foreman MD Office * Rafael Chairez MD - 02/18/2021 1:12 PM CDT Progress Note Infectious Diseases Chief complaint: SBO, positive blood cultures Subjective Patient is much improved, up in a chair eating lunch. NG tube discontinued. Patient deny abdominal pain. Objective Vitals: 02/18/21 1245 BP: 142/63 Pulse: 104 Resp: 16 Temp: 36.8 ??C (98.3 ??F) SpO2: 100% Constitutional: Alert, answering questions properly, in no distress. Up in a chair Eyes: Sclerae anicteric, no conjunctival erythema Lungs: Clear breath sounds, few basilar crackles, no wheezes Heart: Regular rate and rhythm, no murmurs Abdomen: Bowel sounds present, soft, mild right-sided tenderness, minimal distension Skin: Warm and dry, No rashes Extremities: No edema Neuro: No motor deficit Psych: No anxiety Current Medications: Current Facility-Administered Medications Medication Dose Route Frequency Provider Last Rate Last Admin ??? acetaminophen (TYLENOL) tablet 650 mg 650 mg oral Q4H PRN Fabio Timmons NP 650 mg at 02/17/211942 Or ??? acetaminophen (TYLENOL) 32 mg/mL oral solution 650 mg 650 mg feeding tube Q4H PRN LavadaJ. Timmons NP Or ??? acetaminophen (TYLENOL) suppository 650 mg 650 mg rectal Q4H PRN Fabio Timmons NP ??? [Held by Provider] aspirin enteric coated tablet 81 mg 81 mg oral Every other day Sharad Mcdonnell MD 81 mg at 02/09/21 1131 ??? [Held by Provider] atorvastatin (LIPITOR) tablet 20 mg 20 mg oral Nightly Sharad Mcdonnell MD ??? [Held by Provider] cyanocobalamin (Vitamin B-12) sublingual tablet 1,000 mcg 1,000 mcg oral Daily Sharad Mcdonnell MD 1,000 mcg at 02/11/21 0848 ??? [Held by Provider] cyclobenzaprine (FLEXERIL) tablet 10 mg 10 mg oral BID Sharad Mcdonnell MD ??? dextrose oral liquid liquid 15 g 15 g oral Q15 Min PRN Jacque Ansari NP Or ??? dextrose (D10W) 10% bolus 250 mL 250 mL intravenous Q15 Min PRN Jacque Ansari NP 1,000 mL/hr at02/10/21 0343 250 mL at 02/10/21 0343 ??? [Held by Provider] dicyclomine (BENTYL) capsule 10 mg 10 mg oral TID Sharad Mcdonnell MD ??? [Held by Provider] docusate sodium (COLACE) capsule 100 mg 100 mg oral Daily Sharad Mcdonnell MD 100 mg at 02/09/21 1131 ??? fluticasone propionate (FLONASE) 50 mcg/actuation nasal spray 2 spray 2 spray each nostril Daily Sharad Mcdonnell MD 2 spray at 02/17/21 0933 ??? [Held by Provider] folic acid (FOLVITE) tablet 1 mg 1 mg oral Daily with dinner Sharad Mcdonnell MD ??? glucagon injection 1 mg 1 mg intramuscular Q30 Min PRN Jacque Ansari NP ??? levETIRAcetam (KEPPRA) 250 mg in sodium chloride 0.9% 100 mL IVPB 250 mg intravenous Q12H Linda Bridges MD 410 mL/hr at 02/18/21927 250 mg at 07/10/21 0928 ??? [Held by Provider] levETIRAcetam (KEPPRA) tablet 250 mg 250 mg oral BID Sharad Mcdonnell MD 250 mg at 02/09/21 1131 ??? LORazepam (ATIVAN) injection 0.5 mg 0.5 mg intravenous Q8H PRN Sharad Mcdonnell MD 0.5 mg at 02/18/21 0523 ??? [Held by Provider] OLANZapine (ZyPREXA ZYDIS) disintegrating tablet 10 mg 10 mg oral Nightly Sharad Mcdonnell MD 10 mg at 02/11/212040 ??? [Held by Provider] OLANZapine (ZyPREXA ZYDIS) disintegrating tablet 5 mg 5 mg oral Daily Sharad Mcdonnell MD 5 mg at 02/12/21 0818 ??? OLANZapine (ZyPREXA ZYDIS) disintegrating tablet 5 mg 5 mg oral Q8H PRN Sharad Mcdonnell MD 5mg at 02/18/21 0920 ??? ondansetron ODT (ZOFRAN-ODT) disintegrating tablet 4 mg 4 mg oral Q6H PRN Fabio Timmons, STEVEN Or ??? ondansetron (ZOFRAN) injection 4 mg 4 mg intravenous Q6H PRN Fabio Timmons, ASSISTANT DIRECTOR OF NURSING 4 mg at 02/17/21 2158 ??? pantoprazole (PROTONIX) injection 40 mg 40 mg intravenous BID Jovanny Donnelly MD 40 mg at 02/18/21 0912 ??? piperacillin-tazobactam (ZOSYN) 4.5 g in sodium chloride 0.9% 100 mL IVPB 4.5 g intravenous Q8HSCH Rafael Chairez MD 200 mL/hr at 02/18/21 1128 4.5 g at 02/18/21 1128 ??? [Held by Provider] prazosin (MINIPRESS) capsule 1 mg 1 mg oral Nightly Sharad Mcdonnell MD ??? prochlorperazine (COMPAZINE) injection 10 mg 10 mg intravenous Q6H PRN Fabio Timmons, ASSISTANT DIRECTOR OF NURSING 10 mg at 02/16/21 0451 ??? sodium chloride 0.9% flush 0.5-20 mL 0.5-20 mL intra-catheter PRN Fabio Timmons NP ??? sodium chloride 0.9% flush 5-10 mL 5-10 mL intra-catheter Linda Gibbs MD ??? sodium chloride 0.9% flush 5-10 mL 5-10 mL intra-catheter Q12H ELIU Linda Choudhury MD10 mL at 02/18/21 0921 ??? sodium chloride 0.9% flush 5-20 mL 5-20 mL intra-catheter PRN Linda Choudhury MD Allergies: Allergies Allergen Reactions ??? Codeine Hives ??? Duloxetine Mental status changes Reaction: CONFUSION, ??? Gabapentin Mental status changes ??? Paxil [Paroxetine] Mental status changes ??? Wellbutrin [Bupropion] Mental status changes ??? Zoloft [Sertraline] Mental status changes Social History Social History Socioeconomic History ??? Marital status: Spouse name: Not on file ??? Number of children: Not on file ??? Years of education: Not on file ??? Highest education level: Not on file Occupational History ??? Not on file Tobacco Use ??? Smoking status: Former Smoker Packs/day: 2.00 Years: 12.00 Pack years: 24.00 Types: E-cigarettes, Cigarettes Start date: 1981 Quit date: 03/19/2008 Years since quittin.9 ??? Smokeless tobacco: Never Used Vaping Use ??? Vaping Use: Former ??? Quit date: 12/11/2019 ??? Substances: Nicotine ??? Devices: Refillable tank Substance and Sexual Activity ??? Alcohol use: Yes Comment: rarely ??? Drug use: Yes Frequency: 7.0 times per week Types: Marijuana Comment: medical for pain and anxiety ??? Sexual activity: Defer Other Topics Concern ??? Not on file Social History Narrative ??? Not on file Social Determinants of Health Financial Resource Strain: Low Risk ??? Difficulty of Paying Living Expenses: Not hard at all Food Insecurity: ??? Worried About Running Out of Food in the Last Year: ??? Ran Out of Food in the Last Year: Transportation Needs: No Transportation Needs ??? Lack of Transportation (Medical): No ??? Lack of Transportation (Non-Medical): No Physical Activity: ??? Days of Exercise per Week: ??? Minutes of Exercise per Session: Stress: ??? Feeling of Stress : Social Connections: Moderately Integrated ??? Frequency of Communication with Friends and Family: More than three times a week ??? Frequency of Social Gatherings with Friends and Family: More than three times a week ??? Attends [employer] Services: 1 to 4 times per year ??? Active Member of Clubs or Organizations: No ??? Attends Club or Organization Meetings: Never ??? Marital Status: Intimate Partner Violence: ??? Fear of Current or Ex-Partner: ??? Emotionally Abused: ??? Physically Abused: ??? Sexually Abused: Family Medical History Family History Problem Relation Age of Onset [...] Heart disease; ??? Anesthesia problems Neg Hx Imaging CT Abdomen Pelvis W Contrast Result Date: 02/12/2021 1. Several mildly to moderately dilated small bowel loops without discrete transition point to diagnose mechanical obstruction on the basis of adhesions. There is one distorted bowel loop in the pelvis with associated mild mesenteric distortion, but no clear evidence that this is associated with a discrete obstruction point or obvious internal hernia. The possibility of partial obstruction associated with multiple adhesions is always a possibility with complicated postsurgical anatomy. 2. Post left hemicolectomy with moderate amount of residual colorectal stool. 3. Diffuse mesenteric edema and trace ascites. 4. Stomach decompressed by a nasogastric tube with mild gastric mucosal hyperenhancement, which could reflect gastritis. 5. Bibasilar pneumonia with small to moderate bilateral pleural effusions. 6. Diffuse aortic atherosclerosis with mild celiac and 50% superior mesenteric artery origin narrowings. No high- grade visceral artery stenosis or thrombosis. 7. Small nonobstructing leftrenal stones. This report was created using voice recognition software. Occasional wrong-word or sound-alike substitutions may have occurred due to the inherent limitations of voice recognition software. Read the above report carefully and recognize, using context, where substitutions may have occurred. Electronically signed by: Susi Nguyen M.D. Labs Recent Results (from the past 24 hour(s)) POCT glucose Collection Time: 02/17/21 3:53 PM Result Value Ref Range Glucose, POC 105 70 - 110 mg/dL POCT glucose Collection Time: 02/17/21 8:55 PM Result Value Ref Range Glucose, POC 91 70 - 110 mg/dL Basic metabolic panel Collection Time: 02/18/21 3:55 AM Result Value Ref Range Sodium 137 135 - 145 mmol/L Potassium, pl 3.5 3.3 - 4.9 mmol/L Chloride 108 97 - 110 mmol/L CO2 22 22 - 32 mmol/L Anion gap 7 2 - 15 mmol/L BUN 4 (L) 8 - 25 mg/dL Creatinine 0.50 (L) 0.60 - 1.10 mg/dL Glucose 82 70 - 199 mg/dL Calcium 7.1 (L) 8.5 - 10.3 mg/dL CBC without differential Collection Time: 02/18/21 3:55 AM Result Value Ref Range WBC 17.9 (H) 3.8 - 9.9 K/cumm Hgb 9.0 (L) 11.9 - 15.5 g/dL Hct 27.9 (L) 35.6 - 45.5 % Plt 502 (H) 150 - 400 K/cumm MPV 9.0 (L) 9.1 - 12.3 fL RBC 3.09 (L) 3.90 - 5.20 M/cumm MCV 90.3 81.3 - 96.4 fL MCH 29.1 27.1 - 33.3 pg MCHC 32.3 32.3 - 35.7 g/dL RDW CV 14.8 11.1 - 14.9 % RDW SD 48.6 (H) 35.7 - 48.1 fL Magnesium Collection Time: 02/18/21 3:55 AM Result Value Ref Range Magnesium 2.0 1.4 - 2.5 mg/dL eGFR Collection Time: 02/18/21 3:55 AM Result Value Ref Range GFR 109 mL/min/1.73 m2 POCT glucose Collection Time: 02/18/21 9:26 AM Result Value Ref Range Glucose, POC 79 70 - 110 mg/dL POCT glucose Collection Time: 02/18/21 12:50 PM Result Value Ref Range Glucose, POC 91 70 - 110 mg/dL Assessment/Plan Principal Problem: Acute hypoxemic respiratory failure (CMS/HCC) Patient is a 55-year-old female past medical history positive for chronic anemia, DVT, previous colonic obstruction, opiates abuse, admitted with new onset of acute respiratory insufficiency secondary to possible aspiration pneumonia associated with partial small-bowel obstruction. Positive blood cu ltures for Gemella sp. Clinically doing well. Patient on day 8. On piperacillin tazobactam, discontinue antibiotics now. Continue monitoring white cell count seems still elevated. Rafael Chairez MD [facility] Office [phone] Record created with voice recognition software. Occasional wrong-word or '[id number]' substitutions may have occurred due to the inherent limitations of voice recognition software. Read the chart carefully and recognize, using context, where substitutions have occurred. * Brii Vital MD - 02/18/2021 12:39 PM CDT General Surgery Daily Progress Subjective Interval History: smita fulls, had bm Objective Physical Exam: Abdomen: Bowel sounds present: Yes Lab/Radiology/Diagnostic Review: Laboratory review: Lab results in the last 24 hours: Recent Results (from the past 24 hour(s)) POCT glucose Collection Time: 02/17/21 3:53 PM Result Value Ref Range Glucose, POC 105 70 - 110 mg/dL POCT glucose Collection Time: 02/17/21 8:55 PM Result Value Ref Range Glucose, POC 91 70 - 110 mg/dL Basic metabolic panel Collection Time: 02/18/21 3:55 AM Result Value Ref Range Sodium 137 135 - 145 mmol/L Potassium, pl 3.5 3.3 - 4.9 mmol/L Chloride 108 97 - 110 mmol/L CO2 22 22 - 32 mmol/L Anion gap 7 2 - 15 mmol/L BUN 4 (L) 8 - 25 mg/dL Creatinine 0.50 (L) 0.60 - 1.10 mg/dL Glucose 82 70 - 199 mg/dL Calcium 7.1 (L) 8.5 - 10.3 mg/dL CBC without differential Collection Time: 02/18/21 3:55 AM Result Value Ref Range WBC 17.9 (H) 3.8 - 9.9 K/cumm Hgb 9.0 (L) 11.9 - 15.5 g/dL Hct 27.9 (L) 35.6 - 45.5 % Plt 502 (H) 150 - 400 K/cumm MPV 9.0 (L) 9.1 - 12.3 fL RBC 3.09 (L) 3.90 - 5.20 M/cumm MCV 90.3 81.3 - 96.4 fL MCH 29.1 27.1 - 33.3 pg MCHC 32.3 32.3 - 35.7 g/dL RDW CV 14.8 11.1 - 14.9 % RDW SD 48.6 (H) 35.7 - 48.1 fL Magnesium Collection Time: 02/18/21 3:55 AM Result Value Ref Range Magnesium 2.0 1.4 - 2.5 mg/dL eGFR Collection Time: 02/18/21 3:55 AM Result Value Ref Range GFR 109 mL/min/1.73 m2 POCT glucose Collection Time: 02/18/21 9:26 AM Result Value Ref Range Glucose, POC 79 70 - 110 mg/dL Vitals: 24hr Min/Max: Temp Min: 36.8 ??C (98.2 ??F) Max: 37.5 ??C (99.5 ??F) Pulse Min: 86 Max: 115 BP Min: 138/73 Max: 148/77 Resp Min: 16 Max: 16 SpO2 Min: 97 % Max: 100 % Most Recent : Vitals: 02/18/21 0905 BP: 148/77 Pulse: 106 Resp: 16 Temp: 36.8 ??C (98.2 ??F) SpO2: 97% I/O last 2 completed shifts: In: 720 [P.O.:400; I.V.:10; IV Piggyback:310] Out: 1550 [Urine:800; Emesis/NG output:750] I/O this shift: In: 220 [I.V.:10; IV Piggyback:210] Out: 0 Assessment and Plan:PSBO, resolving, advance diet * Aria Garcia, OT - 02/18/2021 10:12 AM CDT Occupational Therapy 02/18/21 0930 General Chart Reviewed Yes Session Type Evaluation OT Received On 02/18/21 Safe Environment Arm Band Checked;Notified RN;Session Completed Bedside;Patient found in Supine;Overbed Table within Reach;Bed in Lowest Position with Wheels locked;Bed rails up per protocol (1:1 sitter) Subjective Agreeable to Therapy Subjective Comment You're making me nervouse. Treatment Duration 13 Minutes Family/Caregiver Present No Occupational Therapy-Patient Goal go to [facility] Current Functional Status OT Communication WFLs (rapid speech, anxious) Precautions Precautions Elopement;Fall risk;Suicide Home Living Type of Home House Home Layout One level;Basement Home Access Stairs to enter without rails Entrance Stairs-Number of Steps 1 Bathroom Shower/Tub Walk-in shower with threshold Bathroom Toilet Standard Bathroom Equipment Built-in shower seat Home Mobility Equipment Wheeled walker Prior Function Level of [place] Independent with ADLs;Independent with ambulation;Independent with homemakingwith ambulation Lives With Spouse Driving Yes ADL Assistance Independent Instrumental ADL (IADL) Assistance Independent Fall within the last 6 months No ADL ADLS (WDL) X Feeding Feeding: Where assessed Sitting;Chair Feeding: Level of assistance Standby assist (cues, doesn't want to eat unless she gets an advanced diet) Grooming Grooming: Where assessed Standing at sink Grooming: Level of assistance Standby Assist (cues to initiate & attend, became anxious, needs calming) Toileting Toileting: Where assessed Toilet Toileting: Level of assistance Standby Assist (cues to initiate, becomes anxious, needs calming) Functional Transfers Functional Transfer: Level of assistance Standby Assist (Pt walked to/from bed, sink, chair w/no device.) Functional Transfer: Assistance with (cues to get out of bed/stay out (depression/anxiety)) Pain Assessment Pain Assessment No/denies pain Activity Tolerance Activity Tolerance Comments Resting heartrate in 110s, pt becomes anxious w/prolonged activity Vision-Basic Assessment Current Vision Wears glasses all the time Cognition Cognition Comments severe anxiety, becomes anxious even when asked to participate in basic ADLs Overall Cognitive Status (Functional cognition despite severe anxiety) Arousal/Alertness Alert Attention Span Attends with cues to redirect;Distractability;Functional environment Memory Appears intact Current communication Appears Intact (rapid speech due to anxiety) Orientation Oriented X4 (person, place, time, situation) Following Commands Follows one step commands without difficulty Safety Judgment Decreased awareness of need for safety (anxious, doesn't want assist (needs it due to IV & Tele)) Awareness of Errors Decreased awareness of errors Insight Decreased awareness of deficits Problem Solving Assistance required to identify errors made;Assistance required to generate solutions;Assistance required to implement solutions Compliance/Behavior Anxious Perseveration Present - verbal (repetitive about not wanting to do anything w/her teeth) Sensation Sensation Comments BUEs WFLs Motor Planning Motor Planning Appears intact Coordination Fine Motor WFL Hand Preference Hand Preference Right Bed Mobility Bed Mobility Yes Bed Mobility 1 Bed Mobility Comments 1 SBA for supine to sit, assist to manage IV (pt disregards and moves quickly, puts IV at risk of being pulled out) RUE Assessment RUE Assessment WFL LUE Assessment LUE Assessment WFL Other Comments Comments Pt moving well in regards to functional mobility. Primary deficits are in relation to psychosocial issues (depression and severe anxiety). Pt is irritable, completing ADLs quickly without regard for safety re: IV in RUE. Requires cues to initiate and follow through with tasks. Assessment Prognosis Good Problem List Decreased safe judgment during ADL;Decreased endurance;Decreased functional mobility;Decreased ADL independence;Decreased IADL independence;Decreased frequency/variety of movement;Gait Plan Plan Plan of care initiated;If this is the last note, consider this the discharge summary Recommendation/Plan OT Recommendation/Plan Comments Tenative plan is for pt [facility] discharge. Anticipate no OT needs by time of discharge. OT Frequency 3-5x/wk Treatment/Interventions ADL/IADL retraining;Balance Training;Bed mobility;Behavioral organization;Cognitive retraining;Compensatory technique education;Endurance training;Equipment eval/education;Functional activity;Functional mobility training;Functional transfer training;Parent/caregiver trainingand education;Strengthening;Therapeutic activity;Therapeutic exercise;Transfer training;Upper extremity motor function/functional skills OT Equipment Recommended (anticipate no ADL equipment needs) Progress (Plan of Care initiated this date) OT - Next Appointment 02/19/21 OT Evaluation Complete Yes * Sharad Mcdonnell MD - 02/18/2021 8:14 AM CDT Daily Progress Subjective NG tube removed. Patient resting Objective Vitals: Most Recent : Vitals: 02/18/21 0337 BP: 139/78 Pulse: 91 Resp: 16 Temp: 37.3 ??C (99.1 ??F) SpO2: 100% I/O last 2 completed shifts: In: 720 [P.O.:400; I.V.:10; IV Piggyback:310] Out: 1550 [Urine:800; Emesis/NG output:750] Physical Exam: Physical Exam Constitutional: AAOx3, NAD, cooperative Heart: RRR no M/R/G Lungs: CTA B/L, normal work of breathing Abdomen: s, mildly tender diffusely, +bowel sounds, no organomegaly Ext: No LE edema, good distal pulses Neuro: Oriented X3, No cranial or peripheral nerve deficits Psych: normal mood and affect Lab Review: I personally reviewed these images. Recent laboratory data was reviewed. Medications and allergies were reviewed. Imaging: [facility] Pulmonary Ventilation and Perfusion Imaging Result Date: 02/09/2021 1. Very low probability for pulmonary embolism. 2. The patient refused to wear the mask for the entire ventilation portion of the exam. 3. Decreased ventilation at the right lung initially, likely related to the patient's presumed pneumonia. Abnormal washout of xenon from the right lung and left lung base. Electronically signed by: Reena Carranza M.D. XR Chest 1 Vw portable Result Date: 02/09/2021 Diffuse right lung opacity concerning for pneumonia Electronically signed by: Lolly Redding M.D. Diagnostics: No results found for this or any previous visit. Assessment/Plan Healthcare associated pneumonia MRSA + Acute respiratory failure with hypoxia Blood cultures + for gemella haemolysans Leukocytosis Elevated D-dimer Hypokalemia Hyponatremia Metabolic acidosis Acute kidney injury Lactic acidosis Hypotension Suicidal and homicidal ideation Severe Protein calorie malnutrition Depression Anxiety Polysubstance abuse Anemia-iron def - IV zosyn per ID recommendations - blood cultures from February 08 showed Gamella - follow WBC count - improving - monitor H&H, transfused 1 unit yesterday - replace K+ - wean O2 as tolerated - follow potassium and magnesium and replace if needed - NG tube removed - continue IV fluids - monitor sodium - monitor renal function and electrolytes - VQ low prob for PE - completed 3 days of IV iron - appreciate surgery recommendations - appreciate ID recommendations - appreciate pulmonology recommendations - sitter at bedside - will need evaluation per psychiatry to go back to [place] Discharge Planning: Patient will need another night of inpatient care for the above medical issues reviewed and discussed with team and reviewed and protocol in place * Sharad Azul MD - 02/18/2021 6:35 AM CDT Pulmonary Daily Progress Chief complaint/reason for consult: Pneumonia Interval History: Patient is on room air. No fevers no chills NG in place Thoracentesis was performed 02/14/2021. Pleural fluid studies reviewed. G stain with no organism. Presenting History: 55-year-old female has a history of previous DVT 2019 ,history of dyslipidemia,neuralgia, depression, posttraumatic stress, chronic abdominal pain, endometriosis, previous infected mesh. Has a history of opioid use in the past chronic low . back pain benzodiazepine use in the past. Was in [facility] for abdominal pain secondary to constipation while there developed suicidal ideations transfer to [place] apparently at [place] developed more coughing diminished appetite presented to the ER found to have a right infiltrate. Serum creatinine 2 0.1. The patient had a V/Q scan that was low probability. Coughing has improved. Nonsmoker. No hemoptysis. Has been placed on cefepime/vancomycin. Feels better. Allergies: Allergies Allergen Reactions ??? Codeine Hives ??? Duloxetine Mental status changes Reaction: CONFUSION, ??? Gabapentin Mental status changes ??? Paxil [Paroxetine] Mental status changes ??? Wellbutrin [Bupropion] Mental status changes ??? Zoloft [Sertraline] Mental status changes Medications: Scheduled Meds:[Held by Provider] aspirin, 81 mg, oral, Every other day [Held by Provider] atorvastatin, 20 mg, oral, Nightly [Held by Provider] cyanocobalamin, 1,000 mcg, oral, Daily [Held by Provider] cyclobenzaprine, 10 mg, oral, BID [Held by Provider] dicyclomine, 10 mg, oral, TID [Held by Provider] docusate sodium, 100 mg, oral, Daily fluticasone propionate, 2 spray, each nostril, Daily [Held by Provider] folic acid, 1 mg, oral, Daily with dinner levETIRAcetam, 250 mg, intravenous, Q12H ELIU [Held by Provider] levETIRAcetam, 250 mg, oral, BID [Held by Provider] OLANZapine, 10 mg, oral, Nightly [Held by Provider] OLANZapine, 5 mg, oral, Daily pantoprazole, 40 mg, intravenous, BID piperacillin-tazobactam, 4.5 g, intravenous, Q8H ELIU [Held by Provider] prazosin, 1 mg, oral, Nightly sodium chloride 0.9%, 5-10 mL, intra-catheter, Q12H ELIU Continuous Infusions:dextrose 5% and Lactated Ringer's, 100 mL/hr, Last Rate: 100 mL/hr (02/17/21 0208) PRN Meds:.??? acetaminophen OR acetaminophen OR acetaminophen ??? dextrose OR dextrose ??? glucagon ??? LORazepam ??? OLANZapine ??? ondansetron ODT OR ondansetron ??? prochlorperazine ??? sodium chloride 0.9% ??? sodium chloride 0.9% ??? sodium chloride 0.9% ROS Above review of system reviewed on 02/18/2021 Vitals: Vitals: 02/17/21 1547 02/17/21 2045 02/18/21 0127 02/18/21 0337 BP: 138/73 141/74 139/78 BP Location: Left arm Left arm Left arm Patient Position: Sitting;Reclining Lying Lying Pulse: 101 115 86 91 Resp: 16 16 16 Temp: 37.5 ??C (99.5 ??F) 37.1 ??C (98.7 ??F) 37.3 ??C (99.1 ??F) TempSrc: Oral Oral Oral SpO2: 99% 99% 100% Weight: Height: Temp (24hrs), Av.3 ??C (99.1 ??F), Min:37.1 ??C (98.7 ??F), Max:37.5 ??C (99.5 ??F) Intake/Output Summary (Last 24 hours) at 02/18/2021 0635 Last data filed at 02/18/2021 0356 Gross per 24 hour Intake 720 ml Output 1550 ml Net -830 ml Physical Exam Constitutional: General: She is not in acute distress. Appearance: She is well-developed. Comments: Very thin HENT: Head: Normocephalic and atraumatic. Eyes: General: No scleral icterus. Conjunctiva/sclera: Conjunctivae normal. Neck: Thyroid: No thyromegaly. Cardiovascular: Rate and Rhythm: Normal rate and regular rhythm. Heart sounds: No murmur heard. Pulmonary: Effort: Pulmonary effort is normal. No respiratory distress. Breath sounds: Normal breath sounds. No stridor. No wheezing or rales. Abdominal: General: Bowel sounds are normal. Palpations: Abdomen is soft. Neurological: Mental Status: She is alert. Lab/Radiology/Diagnostic Review: Labs: Recent Labs Lab Units 02/18/21 0355 02/17/21 0340 02/16/21 1605 WBC K/cumm 17.9* 20.6* 23.6* HEMOGLOBIN g/dL 9.0* 6.9* 7.1* HEMATOCRIT % 27.9* 21.4* 21.9* PLATELETS K/cumm 502* 433* 370 NEUTROS PCT % -- 82.4 84.6 LYMPHS PCT % -- 8.4 7.1 MONOS PCT % -- 4.6 4.2 EOS PCT % -- 2.2 1.1 Recent Labs Lab Units 02/18/21 0355 02/17/21 2055 02/17/21 1553 02/17/21 0740 02/17/21 0340 02/16/21 1756 02/16/21 1605 SODIUM mmol/L 137 -- -- -- 137 -- 138 POTASSIUM PLASMA mmol/L 3.5 -- -- -- 3.1* -- 3.0* CHLORIDE mmol/L 108 -- -- -- 105 -- 104 CO2 mmol/L 22 -- -- -- 25 -- 26 ANIONGAP mmol/L 7 -- -- -- 7 -- 8 GLUCOSE mg/dL 82 -- -- -- 90 < > 95 POC GLUCOSE MONITOR mg/dL -- 91 105 < > -- < > -- BUN SERUM mg/dL 4* -- -- -- 3* -- 3* CREATININE mg/dL 0.50* -- -- -- 0.50* -- 0.50* CALCIUM mg/dL 7.1* -- -- -- 7.1* -- 7.4* < > = values in this interval not displayed. Imaging: Chest x-ray 02/17/2021 demonstrates more focal consolidation in the right upper lobe with capping in the right lower lobe infiltrates a left have improved CXR 02/14/21 shows improvement in the consolidation to the right lung and new infiltrate to LLL. CT abdomen pelvis 02/12/2021 reviewed as follows:1. Several mildly to moderately dilated small bowel loops without discrete transition point to diagnose mechanical obstruction on the basis of adhesions. There is one distorted bowel loop in the pelvis with associated mild mesenteric distortion, but no clear evidence that this is associated with a discrete obstruction point or obvious internal hernia. The possibility of partial obstruction associated with multiple adhesions is always a possibility with complicated postsurgical anatomy. ?? 2. Post left hemicolectomy with moderate amount of residual colorectal stool. ?? 3. Diffuse mesenteric edema and trace ascites. ?? 4. Stomach decompressed by a nasogastric tube with mild gastric mucosal hyperenhancement, which could reflect gastritis. ?? 5. Bibasilar pneumonia with small to moderate bilateral pleural effusions. ?? 6. Diffuse aortic atherosclerosis with mild celiac and 50% superior mesenteric artery origin narrowings. No high-grade visceral artery stenosis or thrombosis. ?? 7. Small nonobstructing left renal stones. Other diagnostic tests: MRSA PCR positive I have personally reviewed above laboratory findings, chest imaging, and diagnostic tests 02/18/2021 Assessment and Plan: [id number] pneumonia MRSA PCR positive Blood cultures positive for Gemella hemolysans Pleural effusion: thoracentesis 02/14/21 w 220 cc removed, LDH 162, N 85%, cx negative Acute renal insufficiency Depression anxiety Anemia Polysubstance abuse ?? rec abx per ID Oxygen as needed * Lolly Byrne, RD - 02/17/2021 6:01 PM CDT Nutrition Assessment Reason for Assessment: Follow Up Encounter Date: 02/17/21 6:04 PM Nutrition Assessment and Plan: Patient is a 55 y.o. female. Admit Dx: ACUTE HYPOXEMICRESPITORY FAILURE. Admitted on 02/08/2021, current LOS is 9 days. Pt intake is inadequate. NG tube removed and diet advanced to full liquids. Pt met criteria for severe malnutrition 01/25/21. ??Nurse Practitioner documented severe protein calorie malnutrition. ??Pt reports eating <25% at meals for greater than 7 days. ??Pt with moderate muscle and subcutaneous fat loss. ??Pt continues to meet criteria for severe malnutrition in the context of acute illness, POA. ??See ASPEN malnutrition guidelines. ? Pt with a low daphnie score of 15 at increased risk for skin breakdown. Will trial ensure compact BID. Will continue to monitor pt and will f/u with PO intake, supplement tolerance, nutrition and wt status, labs, and any additional nutrition needs. Wt Readings from Last 10 Encounters: 02/14/21 49.1 kg (108 lb 4.8 oz) 01/14/21 45 kg (99 lb 3.2 oz) 07/13/20 54.3 kg (119 lb 9.6 oz) 06/09/20 53.5 kg (118 lb) 06/08/20 53.5 kg (118 lb) 06/06/20 54.2 kg (119 lb 8 oz) 05/19/20 53.5 kg (118 lb) 05/11/20 52.6 kg (116 lb) 04/22/20 53.5 kg (118 lb) 04/19/20 54 kg (119 lb 0.8 oz) Adult Malnutrition Scoring Tool (MST) Have You Recently Lost Weight Without Trying?: Yes (Comment) Have you been eating poorly because of a decreased appetite?: Yes Malnutrition Screening Tool (MST) Score: 1 ASPEN Malnutrition Assessment: Acute Illness/Injury Severe Energy Intake: < or equal to 50% energy intake compared to estimated energy needs > (or equalto) 5 days Body Fat: Moderate Muscle Mass: Moderate Patient Meets Criteria for Severe Malnutrition: Yes Nutrition Focused Physical Exam Notes: Subcutaneous Fat Loss Orbital Region - Surrounding the Eye: Somewhat hollow look Upper Arm Region - Triceps/Biceps: Some depth pinch but not ample Muscle Loss [place] Region - Temporalis Muscle: Slight depression Clavicle Bone Region - Pectoralis Major, Deltoid, Trapezius Muscles: Visible in male, some protrusion in female Clavicle and Acromion Bone Region - Deltoid Muscle: Acromion process may slightly protrude Dorsal Hand - Interosseous Muscle: Slightly depressed Dietary Orders (From admission, onward) Start Ordered 02/17/21 180 Oral Nutrition Supplements Select Supplement: Ensure Compact - Chocolate With Breakfast and Dinner Question: Select Supplement: Answer: Ensure Compact - Chocolate 02/17/21 18002/17/21 1317 Adult Diet Full Liquid; Suicidal; Send on Disposables, Deliver tray to nursing, Director Of Residential Services check Diet effective now Question Answer Comment ([facility]) Diet type Full Liquid Safety Precautions: Suicidal Injury Risk: Send on Disposables Injury Risk: Deliver tray to nursing Injury Risk: Director Of Residential Services check 02/17/21 1317 Nutrition Diagnosis 1: Malnutrition - Severe Related to: Acute illness/injury, Loss of appetite Evidenced by: Muscle loss, Subcutaneous fat loss Interventions: Other (comment) (Follow up) Monitoring and Evaluation: Diet advancement, Discharge plans, Labs, Plan of care, Weight changes ?? Goals: Advance to oral intake as medically able Nutrition Diagnosis 2: Inadequate oral intakeRelated to: Altered GI functionEvidenced by: Physical finding Interventions: Other (comment) (Follow up) Monitoring and Evaluation: Diet advancement, Discharge plans, Labs, Plan of care, Weight changes Goals: Advance to oral intake as medically able ?? Nutrition Needs Calculations: Calculated Energy Needs Using Equations Weight: 49.1 kg (108 lb 4.8 oz) Height: 165 cm (5' 4.96 ) Estimated Protein Needs Type of Weight Used for Estimated Protein : Current Protein Needs Based on g/k.2 Total Protein Estimated Needs (gm): 63.3 Kcal/kg Type of Weight Used for Estimated Kcals: Current Kcal/k Total Kcal/kg Estimated Needs : 1582.59 Estimated Fluid Needs Type of Weight Used for Estimated Fluid Needs: Current Fluid Needs Based on : 1 ml/kcal Total Fluid Estimated Needs: 1582.59 Objective Anthropometrics Weight: 49.1 kg (108 lb 4.8 oz) Admission Weight : 52.8 kg Weight Change: -0.68 kg (-1.50 lbs) IBW/kg (Calculated) : 56.6 kg Height: 165 cm (5' 4.96 ) Weight in (lb) to have BMI = 25: 149.7 BMI (Calculated): 18 BMI Classification: BMI 18.5 - 24.9 Normal Weight 3 Day I/O Summary 02/150 - 02/17 0659 In: 5691 [P.O.:120; I.V.:5321] Out: 525 Temp: 37.5 ??C (99.5 ??F) Past Medical History: Diagnosis Date ??? Anemia ??? Anxiety disorder ??? Colon obstruction ([facility]) ??? DVT (deep venous thrombosis) ([facility]) 11/2018 ??? Endometriosis Endometriosis-21 times ??? Hyperlipidemia ??? PONV (postoperative nausea and vomiting) IV medications help ??? Trigeminal neuralgia Medications and Lab Review: Scheduled Meds: [Held by Provider] aspirin, 81 mg, oral, Every other day [Held by Provider] atorvastatin, 20 mg, oral, Nightly [Held by Provider] cyanocobalamin, 1,000 mcg, oral, Daily [Held by Provider] cyclobenzaprine, 10 mg, oral, BID [Held by Provider] dicyclomine, 10 mg, oral, TID [Held by Provider] docusate sodium, 100 mg, oral, Daily fluticasone propionate, 2 spray, each nostril, Daily [Held by Provider] folic acid, 1 mg, oral, Daily with dinner levETIRAcetam, 250 mg, intravenous, Q12H ELIU [Held by Provider] levETIRAcetam, 250 mg, oral, BID [Held by Provider] OLANZapine, 10 mg, oral, Nightly [Held by Provider] OLANZapine, 5 mg, oral, Daily pantoprazole, 40 mg, intravenous, BID piperacillin-tazobactam, 4.5 g, intravenous, Q8H ELIU [Held by Provider] prazosin, 1 mg, oral, Nightly sodium chloride 0.9%, 5-10 mL, intra-catheter, Q12H ELIU Continuous Infusions: dextrose 5% and Lactated Ringer's, 100 mL/hr, Last Rate: 100 mL/hr (02/17/21 0208) sodium chloride 0.9%, 0-250 mL Sodium Date Value Ref Range Status 02/17/2021 137 135 - 145 mmol/L Final Potassium, pl Date Value Ref Range Status 02/17/2021 3.1 (L) 3.3 - 4.9 mmol/L Final BUN Date Value Ref Range Status 02/17/2021 3 (L) 8 - 25 mg/dL Final Creatinine Date Value Ref Range Status 02/17/2021 0.50 (L) 0.60 - 1.10 mg/dL Final Magnesium Date Value Ref Range Status 02/17/2021 1.9 1.4 - 2.5 mg/dL Final Calcium Date Value Ref Range Status 02/17/2021 7.1 (L) 8.5 - 10.3 mg/dL Final No results found for: HGBA1C Nursing Assessment: Last BM Date: 02/17/21 Bowel Sounds (All Quadrants): Active Emesis Assessment Emesis Color/Appearance: Brown Daphnie Scale Score: 15-low Lolly Byrne RD,LD * Emilia Stone, PT - 02/17/2021 3:01 PM CDT Physical Therapy Physical Therapy Initial Assessment NOTE: This is a summary note for the rubio assessments completed during the evaluation session. For full details, review chart review for all flowsheets documented on by this physical therapist on thisdate. Vital signs documented in vital signs flowsheet. Assessment Assessment Prognosis: Good Problem List: Decreased endurance, Decreased mobility, Impaired judgement Plan Plan Plan : Plan of care initiated, If this is the last note, consider this the discharge summary PT Recommendation and Plan Recommendation/Plan PT Recommendation/Plan: Other PT Recommendation/Plan Comments: defer to psych recommendations; may not require further PT after hospital stay, will cont to assess PT Frequency: 3-5x/wk Treatment/Interventions: Balance Training, Functional transfer training, Gait training, Endurance training PT Equipment Recommended: Other (Comment), None PT - Next Appointment: 02/18/21 PT Evaluation Complete: Yes General Information General Chart Reviewed: Yes Session Type: Evaluation PT Received On: 02/17/21 Safe Environment: Call Light within Reach, Session Completed Bedside, Notified RN, Patient found inSupine, Overbed Table within Reach (SI precautions; sitter present before and after;SI scrubs) Subjective: Agreeable to Therapy Subjective Comment: pt agrees to transfer to chair for lunch; reports restless legs, unable to get comfortable lately Additional Pertinent History: ER admit from [place] with low BP; pneumonia Family/Caregiver Present: Yes (spouse) Physical Therapy-Patient Goal: pt did not state; agrees to up to chair Prior Function Prior Function Level of [place]: Independent with ambulation, Independent functional transfers, Independent with ADLs (without device) Lives With: Spouse Fall within the last 6 months: No Home Living Home Living Type of Home: House Home Layout: One level Home Mobility Equipment: Wheeled walker Precautions Precautions Precautions: Fall risk, Suicide Pain Pain Assessment Pain Score: 0 - No pain Cognition Cognition Cognition Comments: pt reports anxiety limiting further gait, participation Overall Cognitive Status: Impaired Arousal/Alertness: Alert Attention Span: Distractability Memory: Appears intact Current communication: Appears Intact Following Commands: Follows one step commands without difficulty Safety Judgment: Decreased awareness of need for safety Insight: Decreased awareness of deficits Compliance/Behavior: Easy to engage, Reluctant to participate, Anxious Perseveration: Not present 6 Clicks Basic Mobility - 6 Click How much difficulty does the patient have: Turning over in bed: None How much difficulty does the patient currently have: Sitting down and standing up from a chair witharms?: None How much difficulty does the patient have: Moving from lying on back to sitting on the side of the bed?: None How much difficulty does the patient have: Moving to and from a bed to a chair including wheelchair?: None How much help does the patient currently need: Walk in hospital room?: None How much help from another person does the patient currently need: Climbing 3-5 steps with a railing?: A little Total 6 Click Score (range 6-24): 23 Score Interpretation: 23 Bed Mobility Bed Mobility 1 Bed Mobility From 1: Supine Bed Mobility Type 1: To Bed Mobility to 1: Edge of bed Level of Assistance 1: Standby Assist Transfers Transfer 1 Transfer From 1: Sit Transfer Type 1: To and from Transfer to 1: Stand Transfer Device 1: No device Transfer Level of Assistance 1: Standby Assist Transfers 2 Transfer From 2: Bed Transfer Type 2: To Transfer to 2: Chair with arms Technique 2: Stand pivot Transfer Device 2: No device Transfer Level of Assistance 2: Standby Assist Balance Static Standing Balance Static Standing-Balance Support: No upper extremity supported Static Standing-Standing Surface: Floor Static Standing-Level of Assistance: Close supervision Dynamic Standing Balance Dynamic Standing-Balance Support: No upper extremity supported Dynamic Standing-Standing Surface: Floor Dynamic Standing-Level of Assistance: Close supervision Dynamic Standing-Comments: during stand pivot, bed to chair; limited assessment as pt declined further gait Ambulation Ambulation 1 Distance (ft) 1: 2'x1 Surface 1: Level tile Device 1: No device Assistance 1: Standby Assist Quality of Gait 1: steady during short gait distance Ambulation Comments 1: pt declined further gait distance due to feeling anxious; agrees to wear gait belt for mobility with encouragement; gait belt removed from room after use (SI precautions) Stairs Curbs RLE Assessment RLE Assessment RLE Assessment: (arom=wfl; strength=@ least 3/5) LLE Assessment LLE Assessment LLE Assessment: (arom=wfl; strength=@ least 3/5) Equipment Used Other Comments PT Goals Multi-Disciplinary Problems (from Physical Therapy) Active Problems Problem: Mobility Start Date: 02/17/21 Goal Start Date Expected End Date End Date STG - Patient will ambulate 02/17/21 02/24/21 -- Goal Details: 50'x1 with appropriate device, as needed, SBA Problem: Transfers Start Date: 02/17/21 Goal Start Date Expected End Date End Date STG - Patient will transfer sit to and from stand 02/17/21 02/24/21 -- Goal Details: With appropriate device, as needed, Modified independent Reviewed By Jenny Walters RN 02/15/21 [id number] 02/17/21 1419 General Chart Reviewed Yes Session Type Evaluation PT Received On 02/17/21 Safe Environment Call Light within Reach;Session Completed Bedside;Notified RN;Patient found in Supine;Overbed Table within Reach (SI precautions; sitter present before and after;SI scrubs) Subjective Agreeable to Therapy Subjective Comment pt agrees to transfer to chair for lunch; reports restless legs, unable to get comfortable lately Additional Pertinent History ER admit from [facility] with low BP; pneumonia Family/Caregiver Present Yes (spouse) Physical Therapy-Patient Goal pt did not state; agrees to up to chair Precautions Precautions Fall risk;Suicide Home Living Type of Home House Home Layout One level Home Mobility Equipment Wheeled walker Prior Function Level of [place] Independent with ambulation;Independent functional transfers;Independent withADLs (without device) Lives With Spouse Fall within the last 6 months No Pain Assessment Pain Score 0 - No pain Cognition Cognition Comments pt reports anxiety limiting further gait, participation Overall Cognitive Status Impaired Arousal/Alertness Alert Attention Span Distractability Memory Appears intact Current communication Appears Intact Following Commands Follows one step commands without difficulty Safety Judgment Decreased awareness of need for safety Insight Decreased awareness of deficits Compliance/Behavior Easy to engage;Reluctant to participate;Anxious Perseveration Not present Balance Balance Yes Static Standing Balance Static Standing-Balance Support No upper extremity supported Static Standing-Standing Surface Floor Static Standing-Level of Assistance Close supervision Dynamic Standing Balance Dynamic Standing-Balance Support No upper extremity supported Dynamic Standing-Standing Surface Floor Dynamic Standing-Level of Assistance Close supervision Dynamic Standing-Comments during stand pivot, bed to chair; limited assessment as pt declined further gait Bed Mobility 1 Bed Mobility From 1 Supine Bed Mobility Type 1 To Bed Mobility to 1 Edge of bed Level of Assistance 1 Standby Assist Transfer 1 Transfer From 1 Sit Transfer Type 1 To and from Transfer to 1 Stand Transfer Device 1 No device Transfer Level of Assistance 1 Standby Assist Transfers 2 Transfer From 2 Bed Transfer Type 2 To Transfer to 2 Chair with arms Technique 2 Stand pivot Transfer Device 2 No device Transfer Level of Assistance 2 Standby Assist Ambulation 1 Distance (ft) 1 2'x1 Surface 1 Level tile Device 1 No device Assistance 1 Standby Assist Quality of Gait 1 steady during short gait distance Ambulation Comments 1 pt declined further gait distance due to feeling anxious; agrees to wear gaitbelt for mobility with encouragement; gait belt removed from room after use (SI precautions) RLE Assessment RLE Assessment (arom=wfl; strength=@ least 3/5) LLE Assessment LLE Assessment (arom=wfl; strength=@ least 3/5) Basic Mobility - 6 Click How much [...] need: Climbing 3-5 steps with a railing? 3 Total 6 Click Score (range 6-24) 23 Score Interpretation 50.88 Assessment Prognosis Good Problem List Decreased endurance;Decreased mobility;Impaired judgement Plan Plan Plan of care initiated;If this is the last note, consider this the discharge summary Recommendation/Plan PT Recommendation/Plan Other PT Recommendation/Plan Comments defer to psych recommendations; may not require further PT after hospital stay, will cont to assess PT Frequency 3-5x/wk Treatment/Interventions Balance Training;Functional transfer training;Gait training;Endurance training PT Equipment Recommended Other (Comment);None PT - Next Appointment 02/18/21 PT Evaluation Complete Yes * Ivonne Thao MD - 02/17/2021 1:13 PM CDT Surgery Chronic abdominal pain. Minimal nausea. +BMs.NGT clamped. AVSS Abd-softer, +BS, ND/NT obs series - contrast in colon; no obstruction A/P:pSBO - resolved. Remove NGT and start liquids. * Loly Michelle, STEVEN - 02/17/2021 11:02 AM CDT Progress Note Infectious Diseases Chief complaint: SBO, positive blood cultures Subjective NG-tube in place with small amount of brownish content in container. She remains afebrile. White count remains significantly elevated but improving. Still having persistent abdominal discomfort that she describes as chronic. No nausea or diarrhea. Objective Vitals: 02/17/21 0635 BP: 159/82 Pulse: 107 Resp: 16 Temp: 37.2 ??C (99 ??F) SpO2: 98% Constitutional: Alert, oriented x3. In no acute distress. NG tube patent to intermittent suction with brownish colored drainage Eyes: Sclerae anicteric, no conjunctival erythema Lungs: Clear breath sounds, no crackles, no wheezes Heart: Regular rate and rhythm, no murmurs Abdomen: Bowel sounds present, soft, mild right-sided tenderness, non-distended Skin: Warm and dry, No rashes Extremities: No edema Neuro: No motor deficit Psych: Mildly anxious Current Medications: Current Facility-Administered Medications Medication Dose Route Frequency Provider Last Rate Last Admin ??? acetaminophen (TYLENOL) tablet 650 mg 650 mg oral Q4H PRN Fabio Timmons, ASSISTANT DIRECTOR OF NURSING Or ??? acetaminophen (TYLENOL) 32 mg/mL oral solution 650 mg 650 mg feeding tube Q4H PRN LavadaJ. James, ASSISTANT DIRECTOR OF NURSING Or ??? acetaminophen (TYLENOL) suppository 650 mg 650 mg rectal Q4H PRN Fabio Timmons, ASSISTANT DIRECTOR OF NURSING ??? [Held by Provider] aspirin enteric coated tablet 81 mg 81 mg oral Every other day Sharad Mcdonnell MD 81 mg at 02/09/21 1131 ??? [Held by Provider] atorvastatin (LIPITOR) tablet 20 mg 20 mg oral Nightly Sharad Mcdonnell MD ??? [Held by Provider] cyanocobalamin (Vitamin B-12) sublingual tablet 1,000 mcg 1,000 mcg oral Daily Sharad Mcdonnell MD 1,000 mcg at 02/11/21 0848 ??? [Held by Provider] cyclobenzaprine (FLEXERIL) tablet 10 mg 10 mg oral BID Sharad Mcdonnell MD ??? dextrose oral liquid liquid 15 g 15 g oral Q15 Min PRN Jacque Ansari NP Or ??? dextrose (D10W) 10% bolus 250 mL 250 mL intravenous Q15 Min PRN Jacque Ansari NP 1,000 mL/hr at02/10/21 0343 250 mL at 02/10/21 0343 ??? dextrose 5% and Lactated Ringer's infusion 100 mL/hr intravenous Continuous Jacque Ansari NP 100 mL/hr at 02/17/21 0208 100 mL/hr at 02/17/21 0208 ??? [Held by Provider] dicyclomine (BENTYL) capsule 10 mg 10 mg oral TID Sharad Mcdonnell MD ??? [Held by Provider] docusate sodium (COLACE) capsule 100 mg 100 mg oral Daily Sharad Mcdonnell MD 100 mg at 02/09/21 1131 ??? fluticasone propionate (FLONASE) 50 mcg/actuation nasal spray 2 spray 2 spray each nostril Daily Sharad Mcdonnell MD 2 spray at 02/17/21932 ??? [Held by Provider] folic acid (FOLVITE) tablet 1 mg 1 mg oral Daily with dinner Sharad Mcdonnell MD ??? glucagon injection 1 mg 1 mg intramuscular Q30 Min PRN Jacque Ansari NP ??? levETIRAcetam (KEPPRA) 250 mg in sodium chloride 0.9% 100 mL IVPB 250 mg intravenous Q12H [facility] Lidna Choudhury MD 410 mL/hr at 02/16/21 2100 250 mg at 02/16/21 2100 ??? [Held by Provider] levETIRAcetam (KEPPRA) tablet 250 mg 250 mg oral BID Sharad Mcdonnell MD 250 mg at 02/09/21 113 ??? LORazepam (ATIVAN) injection 0.5 mg 0.5 mg intravenous Q8H PRN Sharad Mcdonnell MD 0.5 mg at 02/17/21 0348 ??? [Held by Provider] OLANZapine (ZyPREXA ZYDIS) disintegrating tablet 10 mg 10 mg oral Nightly Sharad Mcdonnell MD 10 mg at 02/11/212040 ??? [Held by Provider] OLANZapine (ZyPREXA ZYDIS) disintegrating tablet 5 mg 5 mg oral Daily Sharad Mcdonnell MD 5 mg at 02/12/21 0818 ??? OLANZapine (ZyPREXA ZYDIS) disintegrating tablet 5 mg 5 mg oral Q8H PRN Sharad Mcdonnell MD 5mg at 02/17/21 0933 ??? ondansetron ODT (ZOFRAN-ODT) disintegrating tablet 4 mg 4 mg oral Q6H PRN Fabio Timmons NP Or ??? ondansetron (ZOFRAN) injection 4 mg 4 mg intravenous Q6H PRN Fabio Timmons, ASSISTANT DIRECTOR OF NURSING 4 mg at 02/16/21 1936 ??? pantoprazole (PROTONIX) injection 40 mg 40 mg intravenous BID Jovanny Donnelly MD 40 mg at 02/17/21 0933 ??? piperacillin-tazobactam (ZOSYN) 4.5 g in sodium chloride 0.9% 100 mL IVPB 4.5 g intravenous Q8HSCH Rafael Chairez MD 200 mL/hr at 02/17/21 0326 4.5 g at 02/17/21 0326 ??? potassium chloride 10 mEq/100 mL in sterile water (premix) 10 mEq 10 mEq intravenous Once Sharad Mcdonnell MD Followed by ??? potassium chloride 10 mEq/100 mL in sterile water (premix) 10 mEq 10 mEq intravenous Once Sharad Mcdonnell MD Followed by ??? potassium chloride 10 mEq/100 mL in sterile water (premix) 10 mEq 10 mEq intravenous Once Sharad Mcdonnell MD Followed by ??? potassium chloride 10 mEq/100 mL in sterile water (premix) 10 mEq 10 mEq intravenous Once Sharad Mcdonnell MD ??? [Held by Provider] prazosin (MINIPRESS) capsule 1 mg 1 mg oral Nightly Sharad Mcdonnell MD ??? prochlorperazine (COMPAZINE) injection 10 mg 10 mg intravenous Q6H PRN Fabio Timmons NP 10 mg at 02/16/21 0451 ??? sodium chloride 0.9% flush 0.5-20 mL 0.5-20 mL intra-catheter PRN Fabio Timmons NP ??? sodium chloride 0.9% flush 5-10 mL 5-10 mL intra-catheter PRN Linda Choudhury MD ??? sodium chloride 0.9% flush 5-10 mL 5-10 mL intra-catheter Q12H ELIU Linda Choudhury MD10 mL at 02/16/21 1940 ??? sodium chloride 0.9% flush 5-20 mL 5-20 mL intra-catheter PRN Linda Choudhury MD ??? sodium chloride 0.9% IVPB 0-250 mL 0-250 mL intravenous Once Jacque Ansari NP Allergies: Allergies Allergen Reactions ??? Codeine Hives ??? Duloxetine Mental status changes Reaction: CONFUSION, ??? Gabapentin Mental status changes ??? Paxil [Paroxetine] Mental status changes ??? Wellbutrin [Bupropion] Mental status changes ??? Zoloft [Sertraline] Mental status changes Social History Social History Socioeconomic History ??? Marital status: Spouse name: Not on file ??? Number of children: Not on file ??? Years of education: Not on file ??? Highest education level: Not on file Occupational History ??? Not on file Tobacco Use ??? Smoking status: Former Smoker Packs/day: 2.00 Years: 12.00 Pack years: 24.00 Types: E-cigarettes, Cigarettes Start date: 1981 Quit date: 03/19/2008 Years since quittin.9 ??? Smokeless tobacco: Never Used Vaping Use ??? Vaping Use: Former ??? Quit date: 12/11/2019 ??? Substances: Nicotine ??? Devices: Refillable tank Substance and Sexual Activity ??? Alcohol use: Yes Comment: rarely ??? Drug use: Yes Frequency: 7.0 times per week Types: Marijuana Comment: medical for pain and anxiety ??? Sexual activity: Defer Other Topics Concern ??? Not on file Social History Narrative ??? Not on file Social Determinants of Health Financial Resource Strain: Low Risk ??? Difficulty of Paying Living Expenses: Not hard at all Food Insecurity: ??? Worried About Running Out of Food in the Last Year: ??? Ran Out of Food in the Last Year: Transportation Needs: No Transportation Needs ??? Lack of Transportation (Medical): No ??? Lack of Transportation (Non-Medical): No Physical Activity: ??? Days of Exercise per Week: ??? Minutes of Exercise per Session: Stress: ??? Feeling of Stress : Social Connections: Moderately Integrated ??? Frequency of Communication with Friends and Family: More than three times a week ??? Frequency of Social Gatherings with Friends and Family: More than three times a week ??? Attends [employer] Services: 1 to 4 times per year ??? Active Member of Clubs or Organizations: No ??? Attends Club or Organization Meetings: Never ??? Marital Status: Intimate Partner Violence: ??? Fear of Current or Ex-Partner: ??? Emotionally Abused: ??? Physically Abused: ??? Sexually Abused: Family Medical History Family History Problem Relation Age of Onset [...] Heart disease; ??? Anesthesia problems Neg Hx Imaging XR Chest Pa Lateral 2 Views Result Date: 02/17/2021 1. Small bilateral pleural effusions with bibasilar atelectasis or infiltrate, unchanged. 2. More focal opacity in the right upper lobe compatible with the history of pneumonia. Recommend following to complete resolution. 3. Radiographic contrast within the right colon. Mildly distended loops of small bowel in the left mid abdomen. This is nonspecific. The patient is not felt to be obstructed as the oral contrast has reached the colon. The appearance is improved when compared to the prior smallbowel obstruction of 02/14/2021. Electronically signed by: Reena Carranza M.D. XR Abdomen Erect and or Decubitus 2 Views Result Date: 02/17/2021 1. Small bilateral pleural effusions with bibasilar atelectasis or infiltrate, unchanged. 2. More focal opacity in the right upper lobe compatible with the history of pneumonia. Recommend following to complete resolution. 3. Radiographic contrast within the right colon. Mildly distended loops of small bowel in the left mid abdomen. This is nonspecific. The patient is not felt to be obstructed as the oral contrast has reached the colon. The appearance is improved when compared to the prior smallbowel obstruction of 02/14/2021. Electronically signed by: Reena Carranza M.D. Labs Recent Results (from the past 24 hour(s)) CBC with auto differential Collection Time: 02/16/21 4:05 PM Result Value Ref Range WBC 23.6 (H) 3.8 - 9.9 K/cumm Hgb 7.1 (L) 11.9 - 15.5 g/dL Hct 21.9 (L) 35.6 - 45.5 % Plt 370 150 - 400 K/cumm MPV 9.4 9.1 - 12.3 fL RBC 2.39 (L) 3.90 - 5.20 M/cumm MCV 91.6 81.3 - 96.4 fL MCH 29.7 27.1 - 33.3 pg MCHC 32.4 32.3 - 35.7 g/dL RDW CV 13.6 11.1 - 14.9 % RDW SD 45.1 35.7 - 48.1 fL Basic metabolic panel Collection Time: 02/16/21 4:05 PM Result Value Ref Range Sodium 138 135 - 145 mmol/L Potassium, pl 3.0 (L) 3.3 - 4.9 mmol/L Chloride 104 97 - 110 mmol/L CO2 26 22 - 32 mmol/L Anion gap 8 2 - 15 mmol/L BUN 3 (L) 8 - 25 mg/dL Creatinine 0.50 (L) 0.60 - 1.10 mg/dL Glucose 95 70 - 199 mg/dL Calcium 7.4 (L) 8.5 - 10.3 mg/dL Differential, auto Collection Time: 02/16/21 4:05 PM Result Value Ref Range Neutrophil abs 20.0 (H) 1.7 - 6.5 K/cumm Imm gran abs 0.7 (H) 0.0 - 0.1 K/cumm Lymphocyte abs 1.7 0.8 - 3.3 K/cumm Monocyte abs 1.0 (H) 0.2 - 0.8 K/cumm Eosinophil abs 0.3 0.0 - 0.5 K/cumm Basophil abs 0.0 0.0 - 0.1 K/cumm Neutrophil pct 84.6 % Imm gran pct 2.8 % Lymphocyte pct 7.1 % Monocyte pct 4.2 % Eosinophil pct 1.1 % Basophil pct 0.2 % eGFR Collection Time: 02/16/21 4:05 PM Result Value Ref Range GFR 109 mL/min/1.73 m2 ABO/Rh Collection Time: 02/16/21 4:27 PM Result Value Ref Range ABO/RH. A Negative Antibody screen Collection Time: 02/16/21 4:27 PM Result Value Ref Range Andreina, indirect, Gel Interpretation Negative ABSC Crossmatch Collection Time: 02/16/21 4:27 PM Result Value Ref Range Crossmatch Compatible Unit number for crossmatch [id number] POCT glucose Collection Time: 02/16/21 5:56 PM Result Value Ref Range Glucose, POC 114 (H) 70 - 110 mg/dL POCT glucose Collection Time: 02/16/21 8:50 PM Result Value Ref Range Glucose, POC 110 70 - 110 mg/dL Basic metabolic panel Collection Time: 02/17/21 3:40 AM Result Value Ref Range Sodium 137 135 - 145 mmol/L Potassium, pl 3.1 (L) 3.3 - 4.9 mmol/L Chloride 105 97 - 110 mmol/L CO2 25 22 - 32 mmol/L Anion gap 7 2 - 15 mmol/L BUN 3 (L) 8 - 25 mg/dL Creatinine 0.50 (L) 0.60 - 1.10 mg/dL Glucose 90 70 - 199 mg/dL Calcium 7.1 (L) 8.5 - 10.3 mg/dL Magnesium Collection Time: 02/17/21 3:40 AM Result Value Ref Range Magnesium 1.9 1.4 - 2.5 mg/dL CBC with auto differential Collection Time: 02/17/21 3:40 AM Result Value Ref Range WBC 20.6 (H) 3.8 - 9.9 K/cumm Hgb 6.9 (L) 11.9 - 15.5 g/dL Hct 21.4 (L) 35.6 - 45.5 % Plt 433 (H) 150 - 400 K/cumm MPV 9.3 9.1 - 12.3 fL RBC 2.30 (L) 3.90 - 5.20 M/cumm MCV 93.0 81.3 - 96.4 fL MCH 30.0 27.1 - 33.3 pg MCHC 32.2 (L) 32.3 - 35.7 g/dL RDW CV 13.7 11.1 - 14.9 % RDW SD 46.2 35.7 - 48.1 fL Differential, auto Collection Time: 02/17/21 3:40 AM Result Value Ref Range Neutrophil abs 17.0 (H) 1.7 - 6.5 K/cumm Imm gran abs 0.5 (H) 0.0 - 0.1 K/cumm Lymphocyte abs 1.7 0.8 - 3.3 K/cumm Monocyte abs 0.9 (H) 0.2 - 0.8 K/cumm Eosinophil abs 0.5 0.0 - 0.5 K/cumm Basophil abs 0.0 0.0 - 0.1 K/cumm Neutrophil pct 82.4 % Imm gran pct 2.2 % Lymphocyte pct 8.4 % Monocyte pct 4.6 % Eosinophil pct 2.2 % Basophil pct 0.2 % eGFR Collection Time: 02/17/21 3:40 AM Result Value Ref Range GFR 109 mL/min/1.73 m2 Prepare RBC: 1 Units Collection Time: 02/17/21 4:26 AM Result Value Ref Range Units requested 1 Units requested Ready Unit Number [id number] Product code [id number] Blood Expiration Date [id number] Product Blood Type (for scanning) 0600 Product Blood Type ANEG Dispense Status DISPENSED POCT glucose Collection Time: 02/17/21 7:40 AM Result Value Ref Range Glucose, POC 128 (H) 70 - 110 mg/dL Assessment/Plan Principal Problem: Acute hypoxemic respiratory failure (CMS/HCC) Madison Weinberg is a 55-year old female with history of chronic anemia, DVT, previous colonic obstruction, and opioid abuse admitted with new onset acute respiratory insufficiency secondary to possible aspiration pneumonia and partial SBO. Patient had one positive blood culture for Gemella sp, possible bacterial translocation from GI tract vs aspiration pneumonia. Patient is s/p left thoracentesis. Pleural fluid culture remains negative. Patient remains clinically stable. NG remains in place. Will continue IV zosyn and follow response over the next couple of days before stopping. Follow WBC trend. Loly Michelle NP [facility] Office [phone] * Shantanu Singh MD - 02/17/2021 7:51 AM CDT Pulmonary Daily Progress Chief complaint/reason for consult: Pneumonia Interval History: Mild dyspnea at rest Back on o2, sats 98-100% No fevers No sputum or chest pain Receiving transfusion NG in place Thoracentesis was performed 02/14/2021. Pleural fluid studies reviewed. G stain with no organism. Presenting History: 55-year-old female has a history of previous DVT 2018 ,history of dyslipidemia,neuralgia, depression, posttraumatic stress, chronic abdominal pain, endometriosis, previous infected mesh. Has a history of opioid use in the past chronic low . back pain benzodiazepine use in the past. Was in [facility] for abdominal pain secondary to constipation while there developed suicidal ideations [place] developed more coughing diminished appetite presented to the ER found to have a right infiltrate. Serum creatinine 2 0.1. The patient had a V/Q scan that was low probability. Coughing has improved. Nonsmoker. No hemoptysis. Has been placed on cefepime/vancomycin. Feels better. Allergies: Allergies Allergen Reactions ??? Codeine Hives ??? Duloxetine Mental status changes Reaction: CONFUSION, ??? Gabapentin Mental status changes ??? Paxil [Paroxetine] Mental status changes ??? Wellbutrin [Bupropion] Mental status changes ??? Zoloft [Sertraline] Mental status changes Medications: Scheduled Meds:[Held by Provider] aspirin, 81 mg, oral, Every other day [Held by Provider] atorvastatin, 20 mg, oral, Nightly [Held by Provider] cyanocobalamin, 1,000 mcg, oral, Daily [Held by Provider] cyclobenzaprine, 10 mg, oral, BID [Held by Provider] dicyclomine, 10 mg, oral, TID [Held by Provider] docusate sodium, 100 mg, oral, Daily fluticasone propionate, 2 spray, each nostril, Daily [Held by Provider] folic acid, 1 mg, oral, Daily with dinner levETIRAcetam, 250 mg, intravenous, Q12H ELIU [Held by Provider] levETIRAcetam, 250 mg, oral, BID magnesium sulfate, 2 g, intravenous, Once [Held by Provider] OLANZapine, 10 mg, oral, Nightly [Held by Provider] OLANZapine, 5 mg, oral, Daily pantoprazole, 40 mg, intravenous, BID piperacillin-tazobactam, 4.5 g, intravenous, Q8H ELIU potassium chloride, 10 mEq, intravenous, Once Followed by potassium chloride, 10 mEq, intravenous, Once Followed by potassium chloride, 10 mEq, intravenous, Once Followed by potassium chloride, 10 mEq, intravenous, Once [Held by Provider] prazosin, 1 mg, oral, Nightly sodium chloride 0.9%, 5-10 mL, intra-catheter, Q12H ELIU Continuous Infusions:dextrose 5% and Lactated Ringer's, 100 mL/hr, Last Rate: 100 mL/hr (02/17/21 0208) sodium chloride 0.9%, 0-250 mL PRN Meds:.??? acetaminophen OR acetaminophen OR acetaminophen ??? dextrose OR dextrose ??? glucagon ??? LORazepam ??? OLANZapine ??? ondansetron ODT OR ondansetron ??? prochlorperazine ??? sodium chloride 0.9% ??? sodium chloride 0.9% ??? sodium chloride 0.9% ROS Above review of system reviewed on 02/17/2021 Vitals: Vitals: 02/17/21 0312 02/17/21 0450 02/17/21 0520 02/17/21 0635 BP: 140/73 135/78 142/74 159/82 BP Location: Left arm Patient Position: Lying;HOB 30 degrees Pulse: 84 90 106 107 Resp: 16 16 16 16 Temp: 36.7 ??C (98.1 ??F) 36.9 ??C (98.4 ??F) 37.1 ??C (98.8 ??F) 37.2 ??C (99 ??F) TempSrc: Axillary Oral Oral SpO2: 96% 99% 100% 98% Weight: Height: Temp (24hrs), Av ??C (98.6 ??F), Min:36.7 ??C (98.1 ??F), Max:37.2 ??C (99 ??F) Intake/Output Summary (Last 24 hours) at 02/17/2021 0752 Last data filed at 02/17/2021 0745 Gross per 24 hour Intake 3230 ml Output 400 ml Net 2830 ml Physical Exam Constitutional: General: She is not in acute distress. Appearance: She is well-developed. Comments: Very thin HENT: Head: Normocephalic and atraumatic. Eyes: General: No scleral icterus. Conjunctiva/sclera: Conjunctivae normal. Neck: Thyroid: No thyromegaly. Cardiovascular: Rate and Rhythm: Normal rate and regular rhythm. Heart sounds: No murmur heard. Pulmonary: Effort: Pulmonary effort is normal. No respiratory distress. Breath sounds: Normal breath sounds. No stridor. No wheezing or rales. Abdominal: General: Bowel sounds are normal. Palpations: Abdomen is soft. Neurological: Mental Status: She is alert. Lab/Radiology/Diagnostic Review: Labs: Recent Labs Lab Units 02/17/21 03402/16/21 1605 02/16/21 0327 WBC K/cumm 20.6* 23.6* 23.2* HEMOGLOBIN g/dL 6.9* 7.1* 6.5* HEMATOCRIT % 21.4* 21.9* 20.7* PLATELETS K/cumm 433* 370 291 NEUTROS PCT % 82.4 84.6 -- LYMPHS PCT % 8.4 7.1 -- MONOS PCT % 4.6 4.2 -- EOS PCT % 2.2 1.1 -- Recent Labs Lab Units 02/17/21 0740 02/17/21 0340 02/16/21 2050 02/16/21 1756 02/16/21 1605 02/16/21 0914 02/16/21 0327 SODIUM mmol/L -- 137 -- -- 138 -- 141 POTASSIUM PLASMA mmol/L -- 3.1* -- -- 3.0* -- 2.7* CHLORIDE mmol/L -- 105 -- -- 104 -- 106 CO2 mmol/L -- 25 -- -- 26 -- 27 ANIONGAP mmol/L -- 7 -- -- 8 -- 8 GLUCOSE mg/dL -- 90 -- -- 95 -- 123 POC GLUCOSE MONITOR mg/dL 128* -- 110 < > -- < > -- BUN SERUM mg/dL -- 3* -- -- 3* -- 4* CREATININE mg/dL -- 0.50* -- -- 0.50* -- 0.60 CALCIUM mg/dL -- 7.1* -- -- 7.4* -- 7.2* < > = values in this interval not displayed. Imaging: CXR 7/6/21 shows improvement in the consolidation to the right lung and new infiltrate to LLL. CT abdomen pelvis 02/12/2021 reviewed as follows:1. Several mildly to moderately dilated small bowel loops without discrete transition point to diagnose mechanical obstruction on the basis of adhesions. There is one distorted bowel loop in the pelvis with associated mild mesenteric distortion, but no clear evidence that this is associated with a discrete obstruction point or obvious internal hernia. The possibility of partial obstruction associated with multiple adhesions is always a possibility with complicated postsurgical anatomy. ?? 2. Post left hemicolectomy with moderate amount of residual colorectal stool. ?? 3. Diffuse mesenteric edema and trace ascites. ?? 4. Stomach decompressed by a nasogastric tube with mild gastric mucosal hyperenhancement, which could reflect gastritis. ?? 5. Bibasilar pneumonia with small to moderate bilateral pleural effusions. ?? 6. Diffuse aortic atherosclerosis with mild celiac and 50% superior mesenteric artery origin narrowings. No high-grade visceral artery stenosis or thrombosis. ?? 7. Small nonobstructing left renal stones. 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 rec abx per ID Follow imaging, repeat CXR Oxygen as needed * Sharad Mcdonnell MD - 02/17/2021 7:06 AM CDT Daily Progress Subjective Patient continues to have NG tube in place. Otherwise feels ok. Objective Vitals: Most Recent : Vitals: 02/17/21 0635 BP: 159/82 Pulse: 107 Resp: 16 Temp: 37.2 ??C (99 ??F) SpO2: 98% I/O last 2 completed shifts: In: 3230 [I.V.:2980; IV Piggyback:250] Out: - Physical Exam: Physical Exam Constitutional: AAOx3, NAD, cooperative Heart: RRR no M/R/G Lungs: CTA B/L, normal work of breathing Abdomen: s, mildly tender diffusely, +bowel sounds, no organomegaly Ext: No LE edema, good distal pulses Neuro: Oriented X3, No cranial or peripheral nerve deficits Psych: normal mood and affect Lab Review: I personally reviewed these images. Recent laboratory data was reviewed.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 Comment: rarely ??? Drug use: Yes Frequency: 7.0 times per week Types: Marijuana Comment: medical for pain and anxiety ??? Sexual activity: Defer Other Topics Concern ??? Not on file Social History Narrative ??? Not on file Social Determinants of Health Financial Resource Strain: Low Risk ??? Difficulty of Paying Living Expenses: Not hard at all Food Insecurity: ??? Worried About Running Out of Food in the Last Year: ??? Ran Out of Food in the Last Year: Transportation Needs: No Transportation Needs ??? Lack of Transportation (Medical): No ??? Lack of Transportation (Non-Medical): No Physical Activity: ??? Days of Exercise per Week: ??? Minutes of Exercise per Session: Stress: ??? Feeling of Stress : Social Connections: Moderately Integrated ??? Frequency of Communication with Friends and Family: More than three times a week ??? Frequency of Social Gatherings with Friends and Family: More than three times a week ??? Attends [employer] Services: 1 to 4 times per year ??? Active Member of Clubs or Organizations: No ??? Attends Club or Organization Meetings: Never ??? Marital Status: Intimate Partner Violence: ??? Fear of Current or Ex-Partner: ??? Emotionally Abused: ??? Physically Abused: ??? Sexually Abused: Family Medical History Family History Problem Relation Age of Onset [...] Heart disease; ??? Anesthesia problems Neg Hx Imaging CT Abdomen Pelvis W Contrast Result Date: 02/12/2021 1. Several mildly to moderately dilated small bowel loops without discrete transition point to diagnose mechanical obstruction on the basis of adhesions. There is one distorted bowel loop in the pelvis with associated mild mesenteric distortion, but no clear evidence that this is associated with a discrete obstruction point or obvious internal hernia. The possibility of partial obstruction associated with multiple adhesions is always a possibility with complicated postsurgical anatomy. 2. Post left hemicolectomy with moderate amount of residual colorectal stool. 3. Diffuse mesenteric edema and trace ascites. 4. Stomach decompressed by a nasogastric tube with mild gastric mucosal hyperenhancement, which could reflect gastritis. 5. Bibasilar pneumonia with small to moderate bilateral pleural effusions. 6. Diffuse aortic atherosclerosis with mild celiac and 50% superior mesenteric artery origin narrowings. No high- grade visceral artery stenosis or thrombosis. 7. Small nonobstructing leftrenal stones. This report was created using voice recognition software. Occasional wrong-word or sound-alike substitutions may have occurred due to the inherent limitations of voice recognition software. Read the above report carefully and recognize, using context, where substitutions may have occurred. Electronically signed by: Susi Nguyen M.D. Labs Recent Results (from the past 24 hour(s)) POCT glucose Collection Time: 02/15/21 5:28 PM Result Value Ref Range Glucose, POC 121 (H) 70 - 110 mg/dL POCT glucose Collection Time: 02/15/21 8:34 PM Result Value Ref Range Glucose, POC 127 (H) 70 - 110 mg/dL Basic metabolic panel Collection Time: 02/16/21 3:27 AM Result Value Ref Range Sodium 141 135 - 145 mmol/L Potassium, pl 2.7 (Critical) 3.3 - 4.9 mmol/L Chloride 106 97 - 110 mmol/L CO2 27 22 - 32 mmol/L Anion gap 8 2 - 15 mmol/L BUN 4 (L) 8 - 25 mg/dL Creatinine 0.60 0.60 - 1.10 mg/dL Glucose 123 70 - 199 mg/dL Calcium 7.2 (L) 8.5 - 10.3 mg/dL CBC without differential Collection Time: 02/16/21 3:27 AM Result Value Ref Range WBC 23.2 (H) 3.8 - 9.9 K/cumm Hgb 6.5 (L) 11.9 - 15.5 g/dL Hct 20.7 (L) 35.6 - 45.5 % Plt 291 150 - 400 K/cumm MPV 9.4 9.1 - 12.3 fL RBC 2.23 (L) 3.90 - 5.20 M/cumm MCV 92.8 81.3 - 96.4 fL MCH 29.1 27.1 - 33.3 pg MCHC 31.4 (L) 32.3 - 35.7 g/dL RDW CV 13.7 11.1 - 14.9 % RDW SD 45.9 35.7 - 48.1 fL Magnesium Collection Time: 02/16/21 3:27 AM Result Value Ref Range Magnesium 1.5 1.4 - 2.5 mg/dL eGFR Collection Time: 02/16/21 3:27 AM Result Value Ref Range GFR 103 mL/min/1.73 m2 Assessment/Plan Principal Problem: Acute hypoxemic respiratory failure (CMS/HCC) Patient is a 55-year-old female past medical history positive for chronic anemia, DVT, previous colonic obstruction, opiates abuse, admitted with new onset of acute respiratory insufficiency secondary to possible aspiration pneumonia associated with partial small-bowel obstruction. Positive blood cu ltures for Gemella sp, question if related to bacterial translocation from GI tract versus aspiration pneumonia. Patient is clinically doing relatively well, NG still in place and patient in an p.o..She has been on therapy with piperacillin tazobactam for 6/8 days now. DC soon. Rafael Chairez MD [facility] Office [phone] Record created with voice recognition software. Occasional wrong-word or '[id number]' substitutions may have occurred due to the inherent limitations of voice recognition software. Read the chart carefully and recognize, using context, where substitutions have occurred. * Sharad Mcdonnell MD - 02/16/2021 8:29 AM CDT Daily Progress Subjective Patient continues to have NG tube in place. No new issues overnight. Objective Vitals: Most Recent : Vitals: 02/16/21 0803 BP: 139/70 Pulse: 112 Resp: 16 Temp: 37.1 ??C (98.7 ??F) SpO2: 93% I/O last 2 completed shifts: In: 5307.7 [P.O.:120; I.V.:5087.7; IV Piggyback:100] Out: 1200 [Urine:300; Emesis/NG output:900] Physical Exam: Physical Exam Constitutional: AAOx3, NAD, cooperative Heart: RRR no M/R/G Lungs: CTA B/L, normal work of breathing Abdomen: s, mildly tender diffusely, +bowel sounds, no organomegaly Ext: No LE edema, good distal pulses Neuro: Oriented X3, No cranial or peripheral nerve deficits Psych: normal mood and affect Lab Review: I personally reviewed these images. Recent laboratory data was reviewed. Medications and allergies were reviewed. Imaging: NM Pulmonary Ventilation and Perfusion Imaging Result Date: 02/09/2021 1. Very low probability for pulmonary embolism. 2. The patient refused to wear the mask for the entire ventilation portion of the exam. 3. Decreased ventilation at the right lung initially, likely related to the patient's presumed pneumonia. Abnormal washout of xenon from the right lung and left lung base. Electronically signed by: Reena Carranza M.D. XR Chest 1 Vw portable Result Date: 02/09/2021 Diffuse right lung opacity concerning for pneumonia Electronically signed by: Lolly Redding M.D. Diagnostics: No results found for this or any previous visit. Assessment/Plan Healthcare associated pneumonia MRSA + Acute respiratory failure with hypoxia Blood cultures + for gemella haemolysans Leukocytosis Elevated D-dimer Hypokalemia Hyponatremia Metabolic acidosis Acute kidney injury Lactic acidosis Hypotension Suicidal and homicidal ideation Severe Protein calorie malnutrition Depression Anxiety Polysubstance abuse Anemia-iron def - IV zosyn per ID recommendations - blood cultures from February 08 showed Gamella - follow WBC count - monitor H&H, transfuse 1U today - planning PICC - replace K+ and Mg++ - wean O2 as tolerated - follow potassium and magnesium and replace if needed - continue NG tube, clamp today and may discontinue today as her obstructive series was negative for obstruction - resume oral medications once able to take PO - continue IV fluids - monitor sodium - monitor renal function and electrolytes - VQ low prob for PE - completed 3 days of IV iron - appreciate surgery recommendations - appreciate ID recommendations - appreciate pulmonology recommendations - sitter at bedside - will need evaluation per psychiatry to go back to [facility] Discharge Planning: Patient will need another night of inpatient care for the above medical issues reviewed and discussed with team and reviewed and protocol in place * Jenny Walters RN - 02/15/2021 3:45 PM CDT Pt did not pass 4 hour clamp test today. Pt had complaints of nausea around the 3 hour quentin. Nausearesolved when suction reapplied. * Sharad Mcdonnell MD - 02/15/2021 10:41 AM CDT Daily Progress Subjective Patient continues to have NG tube in place. Feeling a bit better today Objective Vitals: Most Recent : Vitals: 02/15/21 0723 BP: 140/64 Pulse: 101 Resp: 20 Temp: 36.8 ??C (98.2 ??F) SpO2: 96% I/O last 2 completed shifts: In: 828 [P.O.:60; I.V.:768] Out: 1325 [Emesis/NG output:1325] Physical Exam: Physical Exam Constitutional: AAOx3, NAD, cooperative Heart: RRR no M/R/G Lungs: CTA B/L, normal work of breathing Abdomen: s, mildly tender diffusely, +bowel sounds, no organomegaly Ext: No LE edema, good distal pulses Neuro: Oriented X3, No cranial or peripheral nerve deficits Psych: normal mood and affect Lab Review: I personally reviewed these images. Recent laboratory data was reviewed. Medications and allergies were reviewed. Imaging: NM Pulmonary Ventilation and Perfusion Imaging Result Date: 02/09/2021 1. Very low probability for pulmonary embolism. 2. The patient refused to wear the mask for the entire ventilation portion of the exam. 3. Decreased ventilation at the right lung initially, likely related to the patient's presumed pneumonia. Abnormal washout of xenon from the right lung and left lung base. Electronically signed by: Reena Carranza M.D. XR Chest 1 Vw portable Result Date: 02/09/2021 Diffuse right lung opacity concerning for pneumonia Electronically signed by: Lolly Redding M.D. Diagnostics: No results found for this or any previous visit. Assessment/Plan Healthcare associated pneumonia MRSA + Acute respiratory failure with hypoxia Blood cultures + for gemella haemolysans Leukocytosis Elevated D-dimer Hypokalemia Hyponatremia Metabolic acidosis Acute kidney injury Lactic acidosis Hypotension Suicidal and homicidal ideation Severe Protein calorie malnutrition Depression Anxiety Polysubstance abuse Anemia-iron def - IV zosyn per ID recommendations - blood cultures from February 08 showed Gamella - follow WBC count - wean O2 as tolerated - follow potassium and magnesium and replace if needed - continue NG tube, clamp today and may discontinue today as her obstructive series was negative for obstruction - resume oral medications once able to take PO - continue IV fluids - monitor sodium - monitor renal function and electrolytes - VQ low prob for PE - completed 3 days of IV iron - appreciate surgery recommendations - appreciate ID recommendations - appreciate pulmonology recommendations - sitter at bedside - will need evaluation per psychiatry to go back to [facility] Discharge Planning: Patient will need another night of inpatient care for the above medical issues reviewed and discussed with team and reviewed and protocol in place * Ed Oconnor MD - 02/15/2021 10:02 AM CDT Pulmonary Daily Progress Chief complaint/reason for consult: Pneumonia Interval History: Patient has been weaned to room air with sat at 96%. less anxious, more alert and comfortable today Afebrile Thoracentesis was performed 02/14/2021. Pleural fluid studies reviewed. G stain with no organism. Chest x-ray 02/14/2021 reviewed as follows: ?? 1. Post left thoracentesis with persistent left basilar atelectasis or infiltrate and pleural effusion. There is no left pneumothorax. Left upper to midlung clear. ?? 2. Hazy airspace opacity or pneumonic infiltrate right upper mid to lower lung with right basilar atelectasis and small effusion. Presenting History: 55-year-old female has a history of previous DVT 2019 history of dyslipidemia neuralgia depression posttraumatic stress chronic abdominal pain endometriosis previous infected mesh. Has a history of opioid use in the past chronic low . back pain benzodiazepine use in the past. Was in [facility] for abdominal pain secondary to constipation while there developed suicidal ideations [place] developed more coughing diminished appetite presented to the ER found to have a right infiltrate. Serum creatinine 2 0.1. The patient had a V/Q scan that was low probability. Coughing has improved. Nonsmoker. No hemoptysis. Has been placed on cefepime/vancomycin. Feels better. Allergies: Allergies Allergen Reactions ??? Codeine Hives ??? Duloxetine Mental status changes Reaction: CONFUSION, ??? Gabapentin Mental status changes ??? Paxil [Paroxetine] Mental status changes ??? Wellbutrin [Bupropion] Mental status changes ??? Zoloft [Sertraline] Mental status changes Medications: Scheduled Meds:[Held by Provider] aspirin, 81 mg, oral, Every other day [Held by Provider] atorvastatin, 20 mg, oral, Nightly [Held by Provider] cyanocobalamin, 1,000 mcg, oral, Daily [Held by Provider] cyclobenzaprine, 10 mg, oral, BID [Held by Provider] dicyclomine, 10 mg, oral, TID [Held by Provider] docusate sodium, 100 mg, oral, Daily fluticasone propionate, 2 spray, each nostril, Daily [Held by Provider] folic acid, 1 mg, oral, Daily with dinner levETIRAcetam, 250 mg, intravenous, Q12H ELIU [Held by Provider] levETIRAcetam, 250 mg, oral, BID [Held by Provider] OLANZapine, 10 mg, oral, Nightly [Held by Provider] OLANZapine, 5 mg, oral, Daily [Held by Provider] pantoprazole DR, 40 mg, oral, QAM piperacillin-tazobactam, 3.375 g, intravenous, Q8H [Held by Provider] prazosin, 1 mg, oral, Nightly sodium chloride 0.9%, 0.5-20 mL, intra-catheter, Q8H ELIU sodium chloride 0.9%, 5-10 mL, intra-catheter, Q8H ELIU Continuous Infusions:dextrose 5% and Lactated Ringer's, 100 mL/hr, Last Rate: 100 mL/hr (02/15/21 0925) PRN Meds:.??? acetaminophen OR acetaminophen OR acetaminophen ??? dextrose OR dextrose ??? glucagon ??? LORazepam ??? OLANZapine ??? ondansetron ODT OR ondansetron ??? prochlorperazine ??? sodium chloride 0.9% ??? sodium chloride 0.9% Review of Systems Respiratory: Positive for cough. Cardiovascular: Positive for chest pain. Musculoskeletal: Positive for back pain. Above review of system reviewed on 02/15/2021 Vitals: Vitals: 02/14/21199902/14/21 2345 02/15/21 0610 02/15/21 0723 BP: 144/74 140/71 150/66 140/64 BP Location: Left arm Left arm Left arm Left arm Patient Position: Lying;HOB 30 degrees Lying;HOB 30 degrees Lying;HOB 30 degrees Lying;HOB 30 degrees Pulse: 107 114 107 101 Resp: 18 20 20 Temp: 36.4 ??C (97.6 ??F) 36.6 ??C (97.9 ??F) 36.7 ??C (98 ??F) 36.8 ??C (98.2 ??F) TempSrc: Oral Oral Oral Oral SpO2: 93% 91% 94% 96% Weight: 49.1 kg (108 lb 4.8 oz) Height: Temp (24hrs), Av.7 ??C (98 ??F), Min:36.4 ??C (97.6 ??F), Max:36.9 ??C (98.4 ??F) Intake/Output Summary (Last 24 hours) at 02/15/2021 1002 Last data filed at 02/15/2021 0925 Gross per 24 hour Intake 3674.67 ml Output 1325 ml Net 2349.67 ml Physical Exam Constitutional: General: She is not in acute distress. Appearance: She is well-developed. Comments: Very thin HENT: Head: Normocephalic and atraumatic. Eyes: Conjunctiva/sclera: Conjunctivae normal. Neck: Thyroid: No thyromegaly. Cardiovascular: Rate and Rhythm: Normal rate and regular rhythm. Heart sounds: No murmur heard. No friction rub. Pulmonary: Effort: Pulmonary effort is normal. No respiratory distress. Breath sounds: Normal breath sounds. No stridor. No wheezing or rales. Abdominal: General: Bowel sounds are normal. Palpations: Abdomen is soft. Neurological: Mental Status: She is alert and oriented to person, place, and time. Lab/Radiology/Diagnostic Review: Labs: Recent Labs Lab Units 02/14/21 1529 02/13/21 0627 02/11/21 0511 02/09/21 0041 02/08/21 1830 WBC K/cumm 26.7* 20.1* 25.7* < > 7.6 HEMOGLOBIN g/dL 8.1* 9.0* 7.8* < > 10.6* HEMATOCRIT % 24.4* 27.1* 23.7* < > 32.0* PLATELETS K/cumm 196 112* 135* < > 296 NEUTROS PCT % -- -- -- -- 79.8 LYMPHS PCT % -- -- -- -- 7.8 MONOS PCT % -- -- -- -- 10.1 EOS PCT % -- -- -- -- 0.7 < > = values in this interval not displayed. Recent Labs Lab Units 02/14/21 1659 02/14/21 1309 02/14/21 1001 02/13/21 0833 02/13/21 0627 02/12/21 2153 02/12/21 0512 02/09/21 0041 02/08/21 1830 SODIUM mmol/L -- -- 138 -- 139 -- 137 < > 131* POTASSIUM PLASMA mmol/L -- -- 3.6 -- 2.6* -- 3.6 < > 3.0* CHLORIDE mmol/L -- -- 103 -- 101 -- 103 < > 82* CO2 mmol/L -- -- 26 -- 29 -- 24 < > 32 ANIONGAP mmol/L -- -- 9 -- 9 -- 10 < > 17* GLUCOSE mg/dL -- -- 117 < > 127 -- 108 < > 89 POC GLUCOSE MONITOR mg/dL 135* 128* -- < > -- < > -- < > -- BUN SERUM mg/dL -- -- 5* -- 5* -- 8 < > 30* CREATININE mg/dL -- -- 0.50* -- 0.60 -- 0.60 < > 2.10* CALCIUM mg/dL -- -- 7.6* -- 8.0* -- 7.9* < > 9.9 ALBUMIN g/dL -- -- -- -- -- -- -- -- 3.4* ALK PHOS Units/L -- -- -- -- -- -- -- -- 94 ALT Units/L -- -- -- -- -- -- -- -- 21 AST Units/L -- -- -- -- -- -- -- -- 41 BILIRUBIN TOTAL mg/dL -- -- -- -- -- -- -- -- 0.2 < > = values in this interval not displayed. Imaging: CXR 02/14/21 shows improvement in the consolidation to the right lung and new infiltrate to LLL. CT abdomen pelvis 02/12/2021 reviewed as follows:1. Several mildly to moderately dilated small bowel loops without discrete transition point to diagnose mechanical obstruction on the basis of adhesions. There is one distorted bowel loop in the pelvis with associated mild mesenteric distortion, but no clear evidence that this is associated with a discrete obstruction point or obvious internal hernia. The possibility of partial obstruction associated with multiple adhesions is always a possibility with complicated postsurgical anatomy. ?? 2. Post left hemicolectomy with moderate amount of residual colorectal stool. ?? 3. Diffuse mesenteric edema and trace ascites. ?? 4. Stomach decompressed by a nasogastric tube with mild gastric mucosal hyperenhancement, which could reflect gastritis. ?? 5. Bibasilar pneumonia with small to moderate bilateral pleural effusions. ?? 6. Diffuse aortic atherosclerosis with mild celiac and 50% superior mesenteric artery origin narrowings. No high-grade visceral artery stenosis or thrombosis. ?? 7. Small nonobstructing left renal stones. Other diagnostic tests: MRSA PCR positive I have personally reviewed above laboratory findings, chest imaging, and diagnostic tests 02/15/2021 Assessment and Plan: Mfrwdjem-gpkh-dosbufnt pneumonia MRSA PCR positive Blood cultures positive for Gemella hemolysans Acute renal insufficiency Depression anxiety ?? rec Continuation of Zosyn as per Infectious Disease Day 5 zosyn preceded 3 days by cefepime and vanc * Brii Vital MD - 02/15/2021 9:08 AM CDT General Surgery Daily Progress Subjective Interval History: no new complaints, had several loose stools Objective Physical Exam: Abdomen: Bowel sounds present: Yes, mild tenderness Lab/Radiology/Diagnostic Review: Laboratory review: Lab results in the last 24 hours: Recent Results (from the past 24 hour(s)) Basic metabolic panel Collection Time: 02/14/21 10:01 AM Result Value Ref Range Sodium 138 135 - 145 mmol/L Potassium, pl 3.6 3.3 - 4.9 mmol/L Chloride 103 97 - 110 mmol/L CO2 26 22 - 32 mmol/L Anion gap 9 2 - 15 mmol/L BUN 5 (L) 8 - 25 mg/dL Creatinine 0.50 (L) 0.60 - 1.10 mg/dL Glucose 117 70 - 199 mg/dL Calcium 7.6 (L) 8.5 - 10.3 mg/dL Magnesium Collection Time: 02/14/21 10:01 AM Result Value Ref Range Magnesium 1.5 1.4 - 2.5 mg/dL aPTT Collection Time: 02/14/21 10:01 AM Result Value Ref Range aPTT 30 27 - 37 sec eGFR Collection Time: 02/14/21 10:01 AM Result Value Ref Range GFR 109 mL/min/1.73 m2 pH, Pleural Fluid Collection Time: 02/14/21 10:54 AM Result Value Ref Range Body site, fld Pleural fluid, left pH, fld 7.67 Glucose, body fluid Collection Time: 02/14/21 10:54 AM Result Value Ref Range Specimen type, fld Pleural Body site, fld Pleural fluid, left Glucose, fld 115 mg/dL Cell count with reflex to differential, body fluid Collection Time: 02/14/21 10:54 AM Result Value Ref Range Specimen type, fld Pleural Body site, fld Pleural fluid, left Color, fld Straw Clarity, fld Clear Nucleated cells, fld 1,184 /cumm RBC, fld <3,000 /cumm Lactate dehydrogenase, body fluid Collection Time: 02/14/21 10:54 AM Result Value Ref Range Specimen type, fld Pleural Body site, fld Pleural fluid, left LD, fld 162 Units/L Aerobic and anaerobic culture and gram stain Pleural fluid Chest, left Collection Time: 02/14/21 10:54 AM Specimen: Chest, left; Pleural fluid Result Value Ref Range Direct Specimen Exam Stain: Many polymorphonuclear leukocytes seen. No organisms seen. Cell Differential, Body Fluid Collection Time: 02/14/21 10:54 AM Result Value Ref Range Total cells diffed 100 % Neutrophils, fld 85 % Lymphs, fld 3 % Macrophages, fld 9 % Mesothelial cells, fld 3 % POCT glucose Collection Time: 02/14/21 1:09 PM Result Value Ref Range Glucose, POC 128 (H) 70 - 110 mg/dL CBC without differential Collection Time: 02/14/21 3:29 PM Result Value Ref Range WBC 26.7 (H) 3.8 - 9.9 K/cumm Hgb 8.1 (L) 11.9 - 15.5 g/dL Hct 24.4 (L) 35.6 - 45.5 % Plt 196 150 - 400 K/cumm MPV 11.1 9.1 - 12.3 fL RBC 2.68 (L) 3.90 - 5.20 M/cumm MCV 91.0 81.3 - 96.4 fL MCH 30.2 27.1 - 33.3 pg MCHC 33.2 32.3 - 35.7 g/dL RDW CV 13.8 11.1 - 14.9 % RDW SD 46.0 35.7 - 48.1 fL POCT glucose Collection Time: 02/14/21 4:59 PM Result Value Ref Range Glucose, POC 135 (H) 70 - 110 mg/dL Guaiac occult blood, fecal, non-neoplasm Collection Time: 02/14/21 5:57 PM Result Value Ref Range Guaiac occult blood, fecal Negative Negative Imaging review: I have reviewed SBS Vitals: 24hr Min/Max: Temp Min: 36.4 ??C (97.6 ??F) Max: 36.9 ??C (98.4 ??F) Pulse Min: 101 Max: 116 BP Min: 140/64 Max: 159/81 Resp Min: 18 Max: 20 SpO2 Min: 91 % Max: 96 % Most Recent : Vitals: 02/15/21722 BP: 140/64 Pulse: 101 Resp: 20 Temp: 36.8 ??C (98.2 ??F) SpO2: 96% I/O last 2 completed shifts: In: 828 [P.O.:60; I.V.:768] Out: 1325 [Emesis/NG output:1325] No intake/output data recorded. Assessment and Plan: PSBO, SBS neg for obstruction, poss ileus. Will clamp NG and hopefully remove later today * Rafael Chairez MD - 02/15/2021 8:46 AM CDT Progress Note Infectious Diseases Chief complaint: SBO, positive blood cultures Subjective Patient reports no changes from yesterday, still NM p.o.. Still abdominal pain. Stool incontinence noted this morning. Reports some shortness of breath. Objective Vitals: 02/15/21722 BP: 140/64 Pulse: 101 Resp: 20 Temp: 36.8 ??C (98.2 ??F) SpO2: 96% Constitutional: Alert, oriented x3. In no distress. NG tube in place with bilious drainage Eyes: Sclerae anicteric, no conjunctival erythema Lungs: Clear breath sounds, few basilar crackles, no wheezes Heart: Regular rate and rhythm, no murmurs Abdomen: Bowel sounds present, soft, mild right-sided tenderness, minimal distension Skin: Warm and dry, No rashes Extremities: No edema Neuro: No motor deficit Psych: No anxiety Current Medications: Current Facility-Administered Medications Medication Dose Route Frequency Provider Last Rate Last Admin ??? acetaminophen (TYLENOL) tablet 650 mg 650 mg oral Q4H PRN Fabio Timmons NP Or ??? acetaminophen (TYLENOL) 32 mg/mL oral solution 650 mg 650 mg feeding tube Q4H PRN LavadaJ. Timmons NP Or ??? acetaminophen (TYLENOL) suppository 650 mg 650 mg rectal Q4H PRN Fabio Timmons NP ??? [Held by Provider] aspirin enteric coated tablet 81 mg 81 mg oral Every other day Sharad Mcdonnell MD 81 mg at 02/09/21 1131 ??? [Held by Provider] atorvastatin (LIPITOR) tablet 20 mg 20 mg oral Nightly Sharad Mcdonnell MD ??? [Held by Provider] cyanocobalamin (Vitamin B-12) sublingual tablet 1,000 mcg 1,000 mcg oral Daily Sharad Mcdonnell MD 1,000 mcg at 02/11/21 0848 ??? [Held by Provider] cyclobenzaprine (FLEXERIL) tablet 10 mg 10 mg oral BID Sharad Mcdonnell MD ??? dextrose oral liquid liquid 15 g 15 g oral Q15 Min PRN Jacque Ansari NP Or ??? dextrose (D10W) 10% bolus 250 mL 250 mL intravenous Q15 Min PRN Jacque Ansari NP 1,000 mL/hr at02/10/21 0343 250 mL at 02/10/21 0343 ??? dextrose 5% and Lactated Ringer's infusion 100 mL/hr intravenous Continuous Jacque Ansari NP 100 mL/hr at 02/14/212036 100 mL/hr at 02/14/212036 ??? [Held by Provider] dicyclomine (BENTYL) capsule 10 mg 10 mg oral TID Sharad Mcdonnell MD ??? [Held by Provider] docusate sodium (COLACE) capsule 100 mg 100 mg oral Daily Sharad Mcdonnell MD 100 mg at 02/09/21 1131 ??? fluticasone propionate (FLONASE) 50 mcg/actuation nasal spray 2 spray 2 spray each nostril Daily Sharad Mcdonnell MD 2 spray at 02/11/21 0851 ??? [Held by Provider] folic acid (FOLVITE) tablet 1 mg 1 mg oral Daily with dinner Sharad Mcdonnell MD ??? glucagon injection 1 mg 1 mg intramuscular Q30 Min PRN Jacque Ansari NP ??? levETIRAcetam (KEPPRA) 250 mg in sodium chloride 0.9% 100 mL IVPB 250 mg intravenous Q12H [facility] Linda Choudhury MD 410 mL/hr at 02/14/212011 250 mg at 02/14/212011 ??? [Held by Provider] levETIRAcetam (KEPPRA) tablet 250 mg 250 mg oral BID Sharad Mcdonnell MD 250 mg at 02/09/21 1131 ??? LORazepam (ATIVAN) injection 0.5 mg 0.5 mg intravenous Q8H PRN Sharad Mcdonnell MD 0.5 mg at 02/14/21 0057 ??? [Held by Provider] OLANZapine (ZyPREXA ZYDIS) disintegrating tablet 10 mg 10 mg oral Nightly Sharad Mcdonnell MD 10 mg at 02/11/21 2041 ??? [Held by Provider] OLANZapine (ZyPREXA ZYDIS) disintegrating tablet 5 mg 5 mg oral Daily Sharad Mcdonnell MD 5 mg at 02/12/21 0818 ??? OLANZapine (ZyPREXA ZYDIS) disintegrating tablet 5 mg 5 mg oral Q8H PRN Sharad Mcdonnell MD 5mg at 02/14/21 0555 ??? ondansetron ODT (ZOFRAN-ODT) disintegrating tablet 4 mg 4 mg oral Q6H PRN Fabio Timmons, STEVEN Or ??? ondansetron (ZOFRAN) injection 4 mg 4 mg intravenous Q6H PRN Fabio Timmons, ASSISTANT DIRECTOR OF NURSING 4 mg at 02/14/21 1305 ??? [Held by Provider] pantoprazole DR (PROTONIX) extended release tablet 40 mg 40 mg oral QAM Sharad Mcdonnell MD 40 mg at 02/09/21 1131 ??? piperacillin-tazobactam (ZOSYN) 3.375 g in sodium chloride 0.9% 100 mL IVPB 3.375 g [id number] Rafael Chairez MD 200 mL/hr at 02/15/21 0001 3.375 g at 02/15/21 0001 ??? [Held by Provider] prazosin (MINIPRESS) capsule 1 mg 1 mg oral Nightly Sharad Mcdonnell MD ??? prochlorperazine (COMPAZINE) injection 10 mg 10 mg intravenous Q6H PRN Fabio Timmons ASSISTANT DIRECTOR OF NURSING 10 mg at 02/09/21 1659 ??? sodium chloride 0.9% flush 0.5-20 mL 0.5-20 mL intra-catheter Q8H ELIU Fabio Timmons, ASSISTANT DIRECTOR OF NURSING 10 mL at 02/14/21 0558 ??? sodium chloride 0.9% flush 0.5-20 mL 0.5-20 mL intra-catheter PRN Fabio Timmons NP ??? sodium chloride 0.9% flush 5-10 mL 5-10 mL intra-catheter Q8H [facility] Linda Choudhury MD 10 mL at 02/10/21 2100 ??? sodium chloride 0.9% flush 5-10 mL 5-10 mL intra-catheter PRN Linda Choudhury MD Allergies: Allergies Allergen Reactions ??? Codeine Hives ??? Duloxetine Mental status changes Reaction: CONFUSION, ??? Gabapentin Mental status changes ??? Paxil [Paroxetine] Mental status changes ??? Wellbutrin [Bupropion] Mental status changes ??? Zoloft [Sertraline] Mental status changes Social History Social History Socioeconomic History ??? Marital status: Spouse name: Not on file ??? Number of children: Not on file ??? Years of education: Not on file ??? Highest education level: Not on file Occupational History ??? Not on file Tobacco Use ??? Smoking status: Former Smoker Packs/day: 2.00 Years: 12.00 Pack years: 24.00 Types: E-cigarettes, Cigarettes Start date: 1981 Quit date: 03/19/2008 Years since quittin.9 ??? Smokeless tobacco: Never Used Vaping Use ??? Vaping Use: Former ??? Quit date: 12/11/2019 ??? Substances: Nicotine ??? Devices: Refillable tank Substance and Sexual Activity ??? Alcohol use: Yes Comment: rarely ??? Drug use: Yes Frequency: 7.0 times per week Types: Marijuana Comment: medical for pain and anxiety ??? Sexual activity: Defer Other Topics Concern ??? Not on file Social History Narrative ??? Not on file Social Determinants of Health Financial Resource Strain: Low Risk ??? Difficulty of Paying Living Expenses: Not hard at all Food Insecurity: ??? Worried About Running Out of Food in the Last Year: ??? Ran Out of Food in the Last Year: Transportation Needs: No Transportation Needs ??? Lack of Transportation (Medical): No ??? Lack of Transportation (Non-Medical): No Physical Activity: ??? Days of Exercise per Week: ??? Minutes of Exercise per Session: Stress: ??? Feeling of Stress : Social Connections: Moderately Integrated ??? Frequency of Communication with Friends and Family: More than three times a week ??? Frequency of Social Gatherings with Friends and Family: More than three times a week ??? Attends Cheondo[employer] Services: 1 to 4 times per year ??? Active Member of Clubs or Organizations: No ??? Attends Club or Organization Meetings: Never ??? Marital Status: Intimate Partner Violence: ??? Fear of Current or Ex-Partner: ??? Emotionally Abused: ??? Physically Abused: ??? Sexually Abused: Family Medical History Family History Problem Relation Age of Onset [...] Heart disease; ??? Anesthesia problems Neg Hx Imaging CT Abdomen Pelvis W Contrast Result Date: 02/12/2021 1. Several mildly to moderately dilated small bowel loops without discrete transition point to diagnose mechanical obstruction on the basis of adhesions. There is one distorted bowel loop in the pelvis with associated mild mesenteric distortion, but no clear evidence that this is associated with a discrete obstruction point or obvious internal hernia. The possibility of partial obstruction associated with multiple adhesions is always a possibility with complicated postsurgical anatomy. 2. Post left hemicolectomy with moderate amount of residual colorectal stool. 3. Diffuse mesenteric edema and trace ascites. 4. Stomach decompressed by a nasogastric tube with mild gastric mucosal hyperenhancement, which could reflect gastritis. 5. Bibasilar pneumonia with small to moderate bilateral pleural effusions. 6. Diffuse aortic atherosclerosis with mild celiac and 50% superior mesenteric artery origin narrowings. No high- grade visceral artery stenosis or thrombosis. 7. Small nonobstructing leftrenal stones. This report was created using voice recognition software. Occasional wrong-word or sound-alike substitutions may have occurred due to the inherent limitations of voice recognition software. Read the above report carefully and recognize, using context, where substitutions may have occurred. Electronically signed by: Susi Nguyen M.D. Labs Recent Results (from the past 24 hour(s)) Basic metabolic panel Collection Time: 02/14/21 10:01 AM Result Value Ref Range Sodium 138 135 - 145 mmol/L Potassium, pl 3.6 3.3 - 4.9 mmol/L Chloride 103 97 - 110 mmol/L CO2 26 22 - 32 mmol/L Anion gap 9 2 - 15 mmol/L BUN 5 (L) 8 - 25 mg/dL Creatinine 0.50 (L) 0.60 - 1.10 mg/dL Glucose 117 70 - 199 mg/dL Calcium 7.6 (L) 8.5 - 10.3 mg/dL Magnesium Collection Time: 02/14/21 10:01 AM Result Value Ref Range Magnesium 1.5 1.4 - 2.5 mg/dL aPTT Collection Time: 02/14/21 10:01 AM Result Value Ref Range aPTT 30 27 - 37 sec eGFR Collection Time: 02/14/21 10:01 AM Result Value Ref Range GFR 109 mL/min/1.73 m2 pH, Pleural Fluid Collection Time: 02/14/21 10:54 AM Result Value Ref Range Body site, fld Pleural fluid, left pH, fld 7.67 Glucose, body fluid Collection Time: 02/14/21 10:54 AM Result Value Ref Range Specimen type, fld Pleural Body site, fld Pleural fluid, left Glucose, fld 115 mg/dL Cell count with reflex to differential, body fluid Collection Time: 02/14/21 10:54 AM Result Value Ref Range Specimen type, fld Pleural Body site, fld Pleural fluid, left Color, fld Straw Clarity, fld Clear Nucleated cells, fld 1,184 /cumm RBC, fld <3,000 /cumm Lactate dehydrogenase, body fluid Collection Time: 02/14/21 10:54 AM Result Value Ref Range Specimen type, fld Pleural Body site, fld Pleural fluid, left LD, fld 162 Units/L Aerobic and anaerobic culture and gram stain Pleural fluid Chest, left Collection Time: 02/14/21 10:54 AM Specimen: Chest, left; Pleural fluid Result Value Ref Range Direct Specimen Exam Stain: Many polymorphonuclear leukocytes seen. No organisms seen. Cell Differential, Body Fluid Collection Time: 02/14/21 10:54 AM Result Value Ref Range Total cells diffed 100 % Neutrophils, fld 85 % Lymphs, fld 3 % Macrophages, fld 9 % Mesothelial cells, fld 3 % POCT glucose Collection Time: 02/14/21 1:09 PM Result Value Ref Range Glucose, POC 128 (H) 70 - 110 mg/dL CBC without differential Collection Time: 02/14/21 3:29 PM Result Value Ref Range WBC 26.7 (H) 3.8 - 9.9 K/cumm Hgb 8.1 (L) 11.9 - 15.5 g/dL Hct 24.4 (L) 35.6 - 45.5 % Plt 196 150 - 400 K/cumm MPV 11.1 9.1 - 12.3 fL RBC 2.68 (L) 3.90 - 5.20 M/cumm MCV 91.0 81.3 - 96.4 fL MCH 30.2 27.1 - 33.3 pg MCHC 33.2 32.3 - 35.7 g/dL RDW CV 13.8 11.1 - 14.9 % RDW SD 46.0 35.7 - 48.1 fL POCT glucose Collection Time: 02/14/21 4:59 PM Result Value Ref Range Glucose, POC 135 (H) 70 - 110 mg/dL Guaiac occult blood, fecal, non-neoplasm Collection Time: 02/14/21 5:57 PM Result Value Ref Range Guaiac occult blood, fecal Negative Negative Assessment/Plan Principal Problem: Acute hypoxemic respiratory failure (CMS/HCC) Patient is a 55-year-old female past medical history positive for chronic anemia, DVT, previous colonic obstruction, opiates abuse, admitted with new onset of acute respiratory insufficiency secondary to possible aspiration pneumonia associated with partial small-bowel obstruction. Positive blood cu ltures for Gemella sp, question if related to bacterial translocation from GI tract versus aspiration pneumonia. Patient remains afebrile, repeat blood cultures are negative. Patient on day 5. Out of8 of treatment for pneumonia. Continue current management. Rafael Chairez MD [facility] Office [phone] Record created with voice recognition software. Occasional wrong-word or '[id number]' substitutions may have occurred due to the inherent limitations of voice recognition software. Read the chart carefully and recognize, using context, where substitutions have occurred. * Peter Garcia MD - 02/14/2021 1:49 PM CDT Pulmonary Daily Progress Chief complaint/reason for consult: Pneumonia Interval History: Patient has been weaned to 3 L with sat of 97% to 1 liter with sat at 92%. less anxious, more alert and comfortable today afebrile Presenting History: 55-year-old female has a history of previous DVT 2019 history of dyslipidemia neuralgia depression posttraumatic stress chronic abdominal pain endometriosis previous infected mesh. Has a history of opioid use in the past chronic low . back pain benzodiazepine use in the past. Was in [facility] for abdominal pain secondary to constipation while there developed suicidal ideations [place] developed more coughing diminished appetite presented to the ER found to have a right infiltrate. Serum creatinine 2 0.1. The patient had a V/Q scan that was low probability. Coughing has improved. Nonsmoker. No hemoptysis. Has been placed on cefepime/vancomycin. Feels better. Allergies: Allergies Allergen Reactions ??? Codeine Hives ??? Duloxetine Mental status changes Reaction: CONFUSION, ??? Gabapentin Mental status changes ??? Paxil [Paroxetine] Mental status changes ??? Wellbutrin [Bupropion] Mental status changes ??? Zoloft [Sertraline] Mental status changes Medications: Scheduled Meds:[Held by Provider] aspirin, 81 mg, oral, Every other day [Held by Provider] atorvastatin, 20 mg, oral, Nightly [Held by Provider] cyanocobalamin, 1,000 mcg, oral, Daily [Held by Provider] cyclobenzaprine, 10 mg, oral, BID [Held by Provider] dicyclomine, 10 mg, oral, TID [Held by Provider] docusate sodium, 100 mg, oral, Daily ferric gluconate, 125 mg of elemental iron, intravenous, Daily fluticasone propionate, 2 spray, each nostril, Daily [Held by Provider] folic acid, 1 mg, oral, Daily with dinner levETIRAcetam, 250 mg, intravenous, Q12H ELIU [Held by Provider] levETIRAcetam, 250 mg, oral, BID [Held by Provider] OLANZapine, 10 mg, oral, Nightly [Held by Provider] OLANZapine, 5 mg, oral, Daily [Held by Provider] pantoprazole DR, 40 mg, oral, QAM piperacillin-tazobactam, 3.375 g, intravenous, Q8H [Held by Provider] prazosin, 1 mg, oral, Nightly sodium chloride 0.9%, 0.5-20 mL, intra-catheter, Q8H ELIU sodium chloride 0.9%, 5-10 mL, intra-catheter, Q8H ELIU Continuous Infusions:dextrose 5% and Lactated Ringer's, 100 mL/hr, Last Rate: 100 mL/hr (02/14/21 0557) PRN Meds:.??? acetaminophen OR acetaminophen OR acetaminophen ??? dextrose OR dextrose ??? glucagon ??? LORazepam ??? OLANZapine ??? ondansetron ODT OR ondansetron ??? prochlorperazine ??? sodium chloride 0.9% ??? sodium chloride 0.9% Review of Systems Respiratory: Positive for cough. Cardiovascular: Positive for chest pain. Musculoskeletal: Positive for back pain. Above review of system reviewed on 02/14/2021 Vitals: Vitals: 02/14/21 0000 02/14/21 0400 02/14/21 0839 02/14/21 1207 BP: 149/80 152/80 BP Location: Left arm Left arm Patient Position: Lying;HOB 30 degrees Lying;HOB 30 degrees Pulse: 107 105 113 116 Resp: 22 20 Temp: 36.8 ??C (98.3 ??F) 36.7 ??C (98.1 ??F) TempSrc: Axillary Axillary SpO2: 97% 92% Weight: 49.8 kg (109 lb 12.8 oz) Height: Temp (24hrs), Av.8 ??C (98.3 ??F), Min:36.6 ??C (97.8 ??F), Max:37.4 ??C (99.4 ??F) Intake/Output Summary (Last 24 hours) at 02/14/2021 1349 Last data filed at 02/14/2021 0645 Gross per 24 hour Intake 1853 ml Output 2475 ml Net -622 ml Physical Exam Constitutional: General: She is not in acute distress. Appearance: She is well-developed. Comments: Very thin HENT: Head: Normocephalic and atraumatic. Eyes: Conjunctiva/sclera: Conjunctivae normal. Neck: Thyroid: No thyromegaly. Cardiovascular: Rate and Rhythm: Normal rate and regular rhythm. Heart sounds: No murmur heard. No friction rub. Pulmonary: Effort: Pulmonary effort is normal. No respiratory distress. Breath sounds: Normal breath sounds. No stridor. No wheezing or rales. Abdominal: General: Bowel sounds are normal. Palpations: Abdomen is soft. Neurological: Mental Status: She is alert and oriented to person, place, and time. Lab/Radiology/Diagnostic Review: Labs: Recent Labs Lab Units 02/13/21 0627 02/11/21 0511 02/10/21 0237 02/09/21 0041 02/08/21 1830 WBC K/cumm 20.1* 25.7* 14.8* < > 7.6 HEMOGLOBIN g/dL 9.0* 7.8* 8.0* < > 10.6* HEMATOCRIT % 27.1* 23.7* 24.7* < > 32.0* PLATELETS K/cumm 112* 135* 186 < > 296 NEUTROS PCT % -- -- -- -- 79.8 LYMPHS PCT % -- -- -- -- 7.8 MONOS PCT % -- -- -- -- 10.1 EOS PCT % -- -- -- -- 0.7 < > = values in this interval not displayed. Recent Labs Lab Units 02/14/21 1309 02/14/21 1001 02/14/21 0838 02/13/21 0833 02/13/21 0627 02/12/21 2153 02/12/21 0512 02/09/21 0041 02/08/21 1830 SODIUM mmol/L -- 138 -- -- 139 -- 137 < > 131* POTASSIUM PLASMA mmol/L -- 3.6 -- -- 2.6* -- 3.6 < > 3.0* CHLORIDE mmol/L -- 103 -- -- 101 -- 103 < > 82* CO2 mmol/L -- 26 -- -- 29 -- 24 < > 32 ANIONGAP mmol/L -- 9 -- -- 9 -- 10 < > 17* GLUCOSE mg/dL -- 117 -- -- 127 -- 108 < > 89 POC GLUCOSE MONITOR mg/dL 128* -- 120* < > -- < > -- < > -- BUN SERUM mg/dL -- 5* -- -- 5* -- 8 < > 30* CREATININE mg/dL -- 0.50* -- -- 0.60 -- 0.60 < > 2.10* CALCIUM mg/dL -- 7.6* -- -- 8.0* -- 7.9* < > 9.9 ALBUMIN g/dL -- -- -- -- -- -- -- -- 3.4* ALK PHOS Units/L -- -- -- -- -- -- -- -- 94 ALT Units/L -- -- -- -- -- -- -- -- 21 AST Units/L -- -- -- -- -- -- -- -- 41 BILIRUBIN TOTAL mg/dL -- -- -- -- -- -- -- -- 0.2 < > = values in this interval not displayed. Imaging: CXR 02/14/21 shows improvement in the consolidation to the right lung and new infiltrate to LLL. CT abdomen pelvis 02/12/2021 reviewed as follows:1. Several mildly to moderately dilated small bowel loops without discrete transition point to diagnose mechanical obstruction on the basis of adhesions. There is one distorted bowel loop in the pelvis with associated mild mesenteric distortion, but no clear evidence that this is associated with a discrete obstruction point or obvious internal hernia. The possibility of partial obstruction associated with multiple adhesions is always a possibility with complicated postsurgical anatomy. ?? 2. Post left hemicolectomy with moderate amount of residual colorectal stool. ?? 3. Diffuse mesenteric edema and trace ascites. ?? 4. Stomach decompressed by a nasogastric tube with mild gastric mucosal hyperenhancement, which could reflect gastritis. ?? 5. Bibasilar pneumonia with small to moderate bilateral pleural effusions. ?? 6. Diffuse aortic atherosclerosis with mild celiac and 50% superior mesenteric artery origin narrowings. No high-grade visceral artery stenosis or thrombosis. ?? 7. Small nonobstructing left renal stones. 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 rec Continuation of Zosyn as per Infectious Disease Day 4 zosyn preceded 3 days by cefepime and vanc Wean oxygen as tolerated * Cheryl Barba LPC - 02/14/2021 11:17 AM CDT [facility] spoke with Marilyn/KAT Hollis regarding patient status. According to RN, patient is not yet medically cleared for transfer to psychiatric unit. Patient was last seen by STEVEN Rivas on 02/10. Please see full notes in All Notes. Recommendations: -D/W case with Dr Sosa. -We recommend pt coming back inpatient at [facility] for further psychiatric treatment when medically stable. -Continue scheduled and PRN Zyprexa zydis -Pt currently denying SI/HI. Continue suicidal precautions. -December d/c 1:1 sister if pt contracts for safety. KAT Hollis was notified to [facility] once patient is medically cleared. Behavioral Health will continue to follow. Cheryl Barba LPC Mental Health Intake [phone] * Ivonne Thao MD - 02/14/2021 11:16 AM CDT Surgery Off floor for thoracentesis. NO BM yet. AVSS NGT 1650 A/P:Psbo - will order SBS. * Sharad Mcdonnell MD - 02/14/2021 10:04 AM CDT Daily Progress Subjective Patient continues to have NG tube in place. Objective Vitals: Most Recent : Vitals: 02/14/21 0839 BP: 149/80 Pulse: 113 Resp: 22 Temp: 36.8 ??C (98.3 ??F) SpO2: 97% I/O last 2 completed shifts: In: 2785 [I.V.:2585; IV Piggyback:200] Out: 3300 [Urine:1650; Emesis/NG output:1650] Physical Exam: Physical Exam Constitutional: AAOx3, NAD, cooperative Heart: RRR no M/R/G Lungs: CTA B/L, normal work of breathing Abdomen: s, mildly tender diffusely, +bowel sounds, no organomegaly Ext: No LE edema, good distal pulses Neuro: Oriented X3, No cranial or peripheral nerve deficits Psych: normal mood and affect Lab Review: I personally reviewed these images. Recent laboratory data was reviewed. Medications and allergies were reviewed. Imaging: NM Pulmonary Ventilation and Perfusion Imaging Result Date: 02/09/2021 1. Very low probability for pulmonary embolism. 2. The patient refused to wear the mask for the entire ventilation portion of the exam. 3. Decreased ventilation at the right lung initially, likely related to the patient's presumed pneumonia. Abnormal washout of xenon from the right lung and left lung base. Electronically signed by: Reena Carranza M.D. XR Chest 1 Vw portable Result Date: 02/09/2021 Diffuse right lung opacity concerning for pneumonia Electronically signed by: Lolly Redding M.D. Diagnostics: No results found for this or any previous visit. Assessment/Plan Healthcare associated pneumonia MRSA + Acute respiratory failure with hypoxia Blood cultures + for gemella haemolysans Leukocytosis Elevated D-dimer Hypokalemia Hyponatremia Metabolic acidosis Acute kidney injury Lactic acidosis Hypotension Suicidal and homicidal ideation Severe Protein calorie malnutrition Depression Anxiety Polysubstance abuse Anemia-iron def - IV zosyn per ID recommendations - blood cultures from February 08 showed Gamella - follow WBC - improving - wean O2 as tolerated - follow potassium and magnesium and replace if needed - continue NG tube - resume oral medications once able to take PO - continue IV fluids - monitor sodium - monitor renal function and electrolytes - VQ low prob for PE - IV venfoer x3 days for low iron - DC after today - appreciate surgery recommendations - appreciate ID recommendations - appreciate pulmonology recommendations - sitter at bedside - will need evaluation per psychiatry to go back to [facility] Discharge Planning: Patient will need another night of inpatient care for the above medical issues reviewed and discussed with team and reviewed and protocol in place * Rafael Chairez MD - 02/14/2021 8:12 AM CDT Progress Note Infectious Diseases Chief complaint: SBO, positive blood cultures Subjective Patient continue in NPO. Afebrile. Leukocytosis improving. NG tube still in place. Objective Vitals: 02/14/21 0400 BP: Pulse: 105 Resp: Temp: SpO2: Constitutional: Alert, oriented x3. In no distress. NG tube in place with bilious drainage Eyes: Sclerae anicteric, no conjunctival erythema Lungs: Clear breath sounds, few basilar crackles, no wheezes Heart: Regular rate and rhythm, no murmurs Abdomen: Bowel sounds present, soft, mild right-sided tenderness, minimal distension Skin: Warm and dry, No rashes Extremities: No edema Neuro: No motor deficit Psych: No anxiety Current Medications: Current Facility-Administered Medications Medication Dose Route Frequency Provider Last Rate Last Admin ??? acetaminophen (TYLENOL) tablet 650 mg 650 mg oral Q4H PRN Fabio Timmons ASSISTANT DIRECTOR OF NURSING Or ??? acetaminophen (TYLENOL) 32 mg/mL oral solution 650 mg 650 mg feeding tube Q4H PRN LavadaJ. James, ASSISTANT DIRECTOR OF NURSING Or ??? acetaminophen (TYLENOL) suppository 650 mg 650 mg rectal Q4H PRN Fabio Timmons ASSISTANT DIRECTOR OF NURSING ??? [Held by Provider] aspirin enteric coated tablet 81 mg 81 mg oral Every other day Sharad Mcdonnell MD 81 mg at 02/09/21 1131 ??? [Held by Provider] atorvastatin (LIPITOR) tablet 20 mg 20 mg oral Nightly Sharad Mcdonnell MD ??? [Held by Provider] cyanocobalamin (Vitamin B-12) sublingual tablet 1,000 mcg 1,000 mcg oral Daily Sharad Mcdonnell MD 1,000 mcg at 02/11/21 0848 ??? [Held by Provider] cyclobenzaprine (FLEXERIL) tablet 10 mg 10 mg oral BID Sharad Mcdonnell MD ??? dextrose oral liquid liquid 15 g 15 g oral Q15 Min PRN Jacque Ansari NP Or ??? dextrose (D10W) 10% bolus 250 mL 250 mL intravenous Q15 Min PRN Jacque Ansari NP 1,000 mL/hr at02/10/21 0343 250 mL at 02/10/21 0343 ??? dextrose 5% and Lactated Ringer's infusion 100 mL/hr intravenous Continuous Jacque Ansari NP 100 mL/hr at 02/14/21 0557 100 mL/hr at 02/14/21 0557 ??? [Held by Provider] dicyclomine (BENTYL) capsule 10 mg 10 mg oral TID Sharad Mcdonnell MD ??? [Held by Provider] docusate sodium (COLACE) capsule 100 mg 100 mg oral Daily Sharad Mcdonnell MD 100 mg at 02/09/21 1131 ??? ferric gluconate (FERRLECIT) 125 mg of elemental iron in sodium chloride 0.9% 100 mL IVPB 125 mg of elemental iron intravenous Daily Vale Vasquez NP 110 mL/hr at 02/13/21 1518 125 mg of elemental iron at 02/13/21 1518 ??? fluticasone propionate (FLONASE) 50 mcg/actuation nasal spray 2 spray 2 spray each nostril Daily Sharad Mcdonnell MD 2 spray at 02/11/21 0851 ??? [Held by Provider] folic acid (FOLVITE) tablet 1 mg 1 mg oral Daily with dinner Sharad Mcdonnell MD ??? glucagon injection 1 mg 1 mg intramuscular Q30 Min PRN Jacque Ansari NP ??? levETIRAcetam (KEPPRA) 250 mg in sodium chloride 0.9% 100 mL IVPB 250 mg intravenous Q12H Linda Bridges MD 410 mL/hr at 02/13/212018 250 mg at 02/13/212018 ??? [Held by Provider] levETIRAcetam (KEPPRA) tablet 250 mg 250 mg oral BID Sharad Mcdonnell MD 250 mg at 02/09/21 1131 ??? LORazepam (ATIVAN) injection 0.5 mg 0.5 mg intravenous Q8H PRN Sharad Mcdonnell MD 0.5 mg at 02/14/21 0057 ??? [Held by Provider] OLANZapine (ZyPREXA ZYDIS) disintegrating tablet 10 mg 10 mg oral Nightly Sharad Mcdonnell MD 10 mg at 02/11/212040 ??? [Held by Provider] OLANZapine (ZyPREXA ZYDIS) disintegrating tablet 5 mg 5 mg oral Daily Sharad Mcdonnell MD 5 mg at 02/12/21 0818 ??? OLANZapine (ZyPREXA ZYDIS) disintegrating tablet 5 mg 5 mg oral Q8H PRN Sharad Mcdonnell MD 5mg at 02/14/21 0555 ??? ondansetron ODT (ZOFRAN-ODT) disintegrating tablet 4 mg 4 mg oral Q6H PRN Fabio Timmons NP Or ??? ondansetron (ZOFRAN) injection 4 mg 4 mg intravenous Q6H PRN Fabio Timmons NP 4 mg at 02/09/21 1313 ??? [Held by Provider] pantoprazole DR (PROTONIX) extended release tablet 40 mg 40 mg oral QAM Sharad Mcdonnell MD 40 mg at 02/09/21 1131 ??? piperacillin-tazobactam (ZOSYN) 3.375 g in sodium chloride 0.9% 100 mL IVPB 3.375 g [id number] Rafael Chairez MD 200 mL/hr at 02/14/21 0015 3.375 g at 02/14/21 0015 ??? [Held by Provider] prazosin (MINIPRESS) capsule 1 mg 1 mg oral Nightly Sharad Mcdonnell MD ??? prochlorperazine (COMPAZINE) injection 10 mg 10 mg intravenous Q6H PRN Fabio Timmons NP 10mg at 02/09/21 1659 ??? sodium chloride 0.9% flush 0.5-20 mL 0.5-20 mL intra-catheter Q8H ELIU Fabio Timmons NP 10 mL at 02/14/21 0558 ??? sodium chloride 0.9% flush 0.5-20 mL 0.5-20 mL intra-catheter PRN Fabio Timmons NP ??? sodium chloride 0.9% flush 5-10 mL 5-10 mL intra-catheter Q8H [facility] Linda Choudhury MD 10 mL at 02/10/21 2100 ??? sodium chloride 0.9% flush 5-10 mL 5-10 mL intra-catheter PRN Linda Choudhury MD Allergies: Allergies Allergen Reactions ??? Codeine Hives ??? Duloxetine Mental status changes Reaction: CONFUSION, ??? Gabapentin Mental status changes ??? Paxil [Paroxetine] Mental status changes ??? Wellbutrin [Bupropion] Mental status changes ??? Zoloft [Sertraline] Mental status changes Social History Social History Socioeconomic History ??? Marital status: Spouse name: Not on file ??? Number of children: Not on file ??? Years of education: Not on file ??? Highest education level: Not on file Occupational History ??? Not on file Tobacco Use ??? Smoking status: Former Smoker Packs/day: 2.00 Years: 12.00 Pack years: 24.00 Types: E-cigarettes, Cigarettes Start date: 1981 Quit date: 03/19/2008 Years since quittin.9 ??? Smokeless tobacco: Never Used Vaping Use ??? Vaping Use: Former ??? Quit date: 12/11/2019 ??? Substances: Nicotine ??? Devices: Refillable tank Substance and Sexual Activity ??? Alcohol use: Yes Comment: rarely ??? Drug use: Yes Frequency: 7.0 times per week Types: Marijuana Comment: medical for pain and anxiety ??? Sexual activity: Defer Other Topics Concern ??? Not on file Social History Narrative ??? Not on file Social Determinants of Health Financial Resource Strain: Low Risk ??? Difficulty of Paying Living Expenses: Not hard at all Food Insecurity: ??? Worried About Running Out of Food in the Last Year: ??? Ran Out of Food in the Last Year: Transportation Needs: No Transportation Needs ??? Lack of Transportation (Medical): No ??? Lack of Transportation (Non-Medical): No Physical Activity: ??? Days of Exercise per Week: ??? Minutes of Exercise per Session: Stress: ??? Feeling of Stress : Social Connections: Moderately Integrated ??? Frequency of Communication with Friends and Family: More than three times a week ??? Frequency of Social Gatherings with Friends and Family: More than three times a week ??? Attends Cheondoism Services: 1 to 4 times per year ??? Active Member of Clubs or Organizations: No ??? Attends Club or Organization Meetings: Never ??? Marital Status: Intimate Partner Violence: ??? Fear of Current or Ex-Partner: ??? Emotionally Abused: ??? Physically Abused: ??? Sexually Abused: Family Medical History Family History Problem Relation Age of Onset [...] Heart disease; ??? Anesthesia problems Neg Hx Imaging CT Abdomen Pelvis W Contrast Result Date: 02/12/2021 1. Several mildly to moderately dilated small bowel loops without discrete transition point to diagnose mechanical obstruction on the basis of adhesions. There is one distorted bowel loop in the pelvis with associated mild mesenteric distortion, but no clear evidence that this is associated with a discrete obstruction point or obvious internal hernia. The possibility of partial obstruction associated with multiple adhesions is always a possibility with complicated postsurgical anatomy. 2. Post left hemicolectomy with moderate amount of residual colorectal stool. 3. Diffuse mesenteric edema and trace ascites. 4. Stomach decompressed by a nasogastric tube with mild gastric mucosal hyperenhancement, which could reflect gastritis. 5. Bibasilar pneumonia with small to moderate bilateral pleural effusions. 6. Diffuse aortic atherosclerosis with mild celiac and 50% superior mesenteric artery origin narrowings. No high- grade visceral artery stenosis or thrombosis. 7. Small nonobstructing leftrenal stones. This report was created using voice recognition software. Occasional wrong-word or sound-alike substitutions may have occurred due to the inherent limitations of voice recognition software. Read the above report carefully and recognize, using context, where substitutions may have occurred. Electronically signed by: Susi Nguyen M.D. Labs Recent Results (from the past 24 hour(s)) POCT glucose Collection Time: 02/13/21 8:33 AM Result Value Ref Range Glucose, POC 113 (H) 70 - 110 mg/dL POCT glucose Collection Time: 02/13/21 12:15 PM Result Value Ref Range Glucose, POC 128 (H) 70 - 110 mg/dL POCT glucose Collection Time: 02/13/21 10:45 PM Result Value Ref Range Glucose, POC 132 (H) 70 - 110 mg/dL Assessment/Plan Principal Problem: Acute hypoxemic respiratory failure (CMS/HCC) Patient is a 55-year-old female past medical history positive for chronic anemia, DVT, previous colonic obstruction, opiates abuse, admitted with new onset of acute respiratory insufficiency secondary to possible aspiration pneumonia associated with partial small-bowel obstruction. Positive blood cu ltures for Gemella sp, question if related to bacterial translocation from GI tract versus aspiration. Patient remains stable, on conservative management of partial small-bowel obstruction. Surgical notes reviewed. Continue piperacillin tazobactam, day # 4/8 for treatment of aspiration pneumonia. Not able to switch to p.o. just yet. Rafael Chairez MD [facility] Office [phone] Record created with voice recognition software. Occasional wrong-word or '[id number]' substitutions may have occurred due to the inherent limitations of voice recognition software. Read the chart carefully and recognize, using context, where substitutions have occurred. * Rafael Chairez MD - 02/13/2021 1:06 PM CDT Progress Note Infectious Diseases Chief complaint: SBO, positive blood cultures Subjective Patient reports persistent abdominal pain, NG tube still in place. Patient remains afebrile. Leukocytosis partially improved. Objective Vitals: 02/13/21 1153 BP: 149/82 Pulse: 107 Resp: 18 Temp: 36.3 ??C (97.4 ??F) SpO2: 94% Constitutional: Alert, oriented x3. In no distress. NG tube in place with bilious drainage Eyes: Sclerae anicteric, no conjunctival erythema Lungs: Clear breath sounds, few basilar crackles, no wheezes Heart: Regular rate and rhythm, no murmurs Abdomen: Bowel sounds present, soft, mild right-sided tenderness Skin: Warm and dry, No rashes Extremities: No edema Neuro: No motor deficit Psych: No anxiety Current Medications: Current Facility-Administered Medications Medication Dose Route Frequency Provider Last Rate Last Admin ??? acetaminophen (TYLENOL) tablet 650 mg 650 mg oral Q4H PRN Fabio Timmons NP Or ??? acetaminophen (TYLENOL) 32 mg/mL oral solution 650 mg 650 mg feeding tube Q4H PRN LavadaJ. James, STEVEN Or ??? acetaminophen (TYLENOL) suppository 650 mg 650 mg rectal Q4H PRN Fabio Timmons, ASSISTANT DIRECTOR OF NURSING ??? [Held by Provider] aspirin enteric coated tablet 81 mg 81 mg oral Every other day Sharad Mcdonnell MD 81 mg at 02/09/21 1131 ??? [Held by Provider] atorvastatin (LIPITOR) tablet 20 mg 20 mg oral Nightly Sharad Mcdonnell MD ??? [Held by Provider] cyanocobalamin (Vitamin B-12) sublingual tablet 1,000 mcg 1,000 mcg oral Daily Sharad Mcdonnell MD 1,000 mcg at 02/11/21 0848 ??? [Held by Provider] cyclobenzaprine (FLEXERIL) tablet 10 mg 10 mg oral BID Sharad Mcdonnell MD ??? dextrose oral liquid liquid 15 g 15 g oral Q15 Min PRN Jacque Ansari NP Or ??? dextrose (D10W) 10% bolus 250 mL 250 mL intravenous Q15 Min PRN Jacque Ansari NP 1,000 mL/hr at02/10/21 0343 250 mL at 02/10/21 0343 ??? dextrose 5% and Lactated Ringer's infusion 100 mL/hr intravenous Continuous Jacque Ansari NP 100 mL/hr at 02/13/21 0939 100 mL/hr at 02/13/21 0939 ??? [Held by Provider] dicyclomine (BENTYL) capsule 10 mg 10 mg oral TID Sharad Mcdonnell MD ??? [Held by Provider] docusate sodium (COLACE) capsule 100 mg 100 mg oral Daily Sharad Mcdonnell MD 100 mg at 02/09/21 1131 ??? ferric gluconate (FERRLECIT) 125 mg of elemental iron in sodium chloride 0.9% 100 mL IVPB 125 mg of elemental iron intravenous Daily Vale Vasquez NP 110 mL/hr at 02/12/21 1430 125 mg of elemental iron at 02/12/21 1430 ??? fluticasone propionate (FLONASE) 50 mcg/actuation nasal spray 2 spray 2 spray each nostril Daily Sharad Mcdonnell MD 2 spray at 02/11/21 0851 ??? [Held by Provider] folic acid (FOLVITE) tablet 1 mg 1 mg oral Daily with dinner Sharad Mcdonnell MD ??? glucagon injection 1 mg 1 mg intramuscular Q30 Min PRN Jacque Ansari NP ??? ketorolac (TORADOL) injection 15 mg 15 mg intravenous Q6H PRN Ivonne Thao MD 15 mg at 02/13/21 0612 ??? levETIRAcetam (KEPPRA) 250 mg in sodium chloride 0.9% 100 mL IVPB 250 mg intravenous Q12H Linda Bridges MD 410 mL/hr at 02/13/21 1025 250 mg at 02/13/21 1025 ??? [Held by Provider] levETIRAcetam (KEPPRA) tablet 250 mg 250 mg oral BID Sharad Mcdonnell MD 250 mg at 02/09/21 1131 ??? [Held by Provider] OLANZapine (ZyPREXA ZYDIS) disintegrating tablet 10 mg 10 mg oral Nightly Sharad Mcdonnell MD 10 mg at 02/11/21 204 ??? [Held by Provider] OLANZapine (ZyPREXA ZYDIS) disintegrating tablet 5 mg 5 mg oral Daily Sharad Mcdonnell MD 5 mg at 02/12/21 0818 ??? OLANZapine (ZyPREXA ZYDIS) disintegrating tablet 5 mg 5 mg oral Q8H PRN Sharad Mcdonnell MD 5mg at 02/13/21 0942 ??? ondansetron ODT (ZOFRAN-ODT) disintegrating tablet 4 mg 4 mg oral Q6H PRN Fabio Timmons NP Or ??? ondansetron (ZOFRAN) injection 4 mg 4 mg intravenous Q6H PRN Fabio Timmons NP 4 mg at 02/09/21 1313 ??? [Held by Provider] pantoprazole DR (PROTONIX) extended release tablet 40 mg 40 mg oral QAM Sharad Mcdonnell MD 40 mg at 02/09/21 1131 ??? piperacillin-tazobactam (ZOSYN) 3.375 g in sodium chloride 0.9% 100 mL IVPB 3.375 g [id number] Rafael Chairez MD 200 mL/hr at 02/13/21 0945 3.375 g at 02/13/21 0945 ??? potassium chloride 10 mEq/100 mL in sterile water (premix) 10 mEq 10 mEq intravenous Once Linda Choudhury MD 100 mL/hr at 02/13/21 1255 10 mEq at 02/13/21 1255 Followed by ??? potassium chloride 10 mEq/100 mL in sterile water (premix) 10 mEq 10 mEq intravenous Once Linda Choudhury MD ??? [Held by Provider] prazosin (MINIPRESS) capsule 1 mg 1 mg oral Nightly Sharad Mcdonnell MD ??? prochlorperazine (COMPAZINE) injection 10 mg 10 mg intravenous Q6H PRN Fabio Timmons, ASSISTANT DIRECTOR OF NURSING 10 mg at 02/09/21 1659 ??? sodium chloride 0.9% flush 0.5-20 mL 0.5-20 mL intra-catheter Q8H ELIU Fabio Timmons, ASSISTANT DIRECTOR OF NURSING 10 mL at 02/08/21 2246 ??? sodium chloride 0.9% flush 0.5-20 mL 0.5-20 mL intra-catheter PRN Fabio Timmons, ASSISTANT DIRECTOR OF NURSING ??? sodium chloride 0.9% flush 5-10 mL 5-10 mL intra-catheter Q8H [facility] Linda Choudhury MD 10 mL at 02/10/21 2100 ??? sodium chloride 0.9% flush 5-10 mL 5-10 mL intra-catheter PRN Linda Choudhury MD Allergies: Allergies Allergen Reactions ??? Codeine Hives ??? Duloxetine Mental status changes Reaction: CONFUSION, ??? Gabapentin Mental status changes ??? Paxil [Paroxetine] Mental status changes ??? Wellbutrin [Bupropion] Mental status changes ??? Zoloft [Sertraline] Mental status changes Social History Social History Socioeconomic History ??? Marital status: Spouse name: Not on file ??? Number of children: Not on file ??? Years of education: Not on file ??? Highest education level: Not on file Occupational History ??? Not on file Tobacco Use ??? Smoking status: Former Smoker Packs/day: 2.00 Years: 12.00 Pack years: 24.00 Types: E-cigarettes, Cigarettes Start date: 1982 Quit date: 03/19/2008 Years since quittin.9 ??? Smokeless tobacco: Never Used Vaping Use ??? Vaping Use: Former ??? Quit date: 12/11/2019 ??? Substances: Nicotine ??? Devices: Refillable tank Substance and Sexual Activity ??? Alcohol use: Yes Comment: rarely ??? Drug use: Yes Frequency: 7.0 times per week Types: Marijuana Comment: medical for pain and anxiety ??? Sexual activity: Defer Other Topics Concern ??? Not on file Social History Narrative ??? Not on file Social Determinants of Health Financial Resource Strain: Low Risk ??? Difficulty of Paying Living Expenses: Not hard at all Food Insecurity: ??? Worried About Running Out of Food in the Last Year: ??? Ran Out of Food in the Last Year: Transportation Needs: No Transportation Needs ??? Lack of Transportation (Medical): No ??? Lack of Transportation (Non-Medical): No Physical Activity: ??? Days of Exercise per Week: ??? Minutes of Exercise per Session: Stress: ??? Feeling of Stress : Social Connections: Moderately Integrated ??? Frequency of Communication with Friends and Family: More than three times a week ??? Frequency of Social Gatherings with Friends and Family: More than three times a week ??? Attends Cheondoism Services: 1 to 4 times per year ??? Active Member of Clubs or Organizations: No ??? Attends Club or Organization Meetings: Never ??? Marital Status: Intimate Partner Violence: ??? Fear of Current or Ex-Partner: ??? Emotionally Abused: ??? Physically Abused: ??? Sexually Abused: Family Medical History Family History Problem Relation Age of Onset [...] Heart disease; ??? Anesthesia problems Neg Hx Imaging CT Abdomen Pelvis W Contrast Result Date: 02/12/2021 1. Several mildly to moderately dilated small bowel loops without discrete transition point to diagnose mechanical obstruction on the basis of adhesions. There is one distorted bowel loop in the pelvis with associated mild mesenteric distortion, but no clear evidence that this is associated with a discrete obstruction point or obvious internal hernia. The possibility of partial obstruction associated with multiple adhesions is always a possibility with complicated postsurgical anatomy. 2. Post left hemicolectomy with moderate amount of residual colorectal stool. 3. Diffuse mesenteric edema and trace ascites. 4. Stomach decompressed by a nasogastric tube with mild gastric mucosal hyperenhancement, which could reflect gastritis. 5. Bibasilar pneumonia with small to moderate bilateral pleural effusions. 6. Diffuse aortic atherosclerosis with mild celiac and 50% superior mesenteric artery origin narrowings. No high- grade visceral artery stenosis or thrombosis. 7. Small nonobstructing leftrenal stones. This report was created using voice recognition software. Occasional wrong-word or sound-alike substitutions may have occurred due to the inherent limitations of voice recognition software. Read the above report carefully and recognize, using context, where substitutions may have occurred. Electronically signed by: Susi Nguyen M.D. Labs Recent Results (from the past 24 hour(s)) POCT glucose Collection Time: 02/12/21 9:53 PM Result Value Ref Range Glucose, POC 113 (H) 70 - 110 mg/dL Basic metabolic panel Collection Time: 02/13/21 6:27 AM Result Value Ref Range Sodium 139 135 - 145 mmol/L Potassium, pl 2.6 (Critical) 3.3 - 4.9 mmol/L Chloride 101 97 - 110 mmol/L CO2 29 22 - 32 mmol/L Anion gap 9 2 - 15 mmol/L BUN 5 (L) 8 - 25 mg/dL Creatinine 0.60 0.60 - 1.10 mg/dL Glucose 127 70 - 199 mg/dL Calcium 8.0 (L) 8.5 - 10.3 mg/dL CBC without differential Collection Time: 02/13/21 6:27 AM Result Value Ref Range WBC 20.1 (H) 3.8 - 9.9 K/cumm Hgb 9.0 (L) 11.9 - 15.5 g/dL Hct 27.1 (L) 35.6 - 45.5 % Plt 112 (L) 150 - 400 K/cumm MPV 10.4 9.1 - 12.3 fL RBC 3.03 (L) 3.90 - 5.20 M/cumm MCV 89.4 81.3 - 96.4 fL MCH 29.7 27.1 - 33.3 pg MCHC 33.2 32.3 - 35.7 g/dL RDW CV 13.5 11.1 - 14.9 % RDW SD 44.2 35.7 - 48.1 fL eGFR Collection Time: 02/13/21 6:27 AM Result Value Ref Range GFR 103 mL/min/1.73 m2 POCT glucose Collection Time: 02/13/21 8:33 AM Result Value Ref Range Glucose, POC 113 (H) 70 - 110 mg/dL POCT glucose Collection Time: 02/13/21 12:15 PM Result Value Ref Range Glucose, POC 128 (H) 70 - 110 mg/dL Assessment/Plan Principal Problem: Acute hypoxemic respiratory failure (CMS/HCC) Patient is a 55-year-old female past medical history positive for chronic anemia, DVT, previous colonic obstruction, opiates abuse, admitted with new onset of acute respiratory insufficiency secondary to possible aspiration pneumonia associated with partial small-bowel obstruction. Positive blood cu ltures for Gemella sp, question if related to bacterial translocation from GI tract versus aspiration. Patient seems to be doing relatively well on therapy with piperacillin tazobactam. P.o. intake is still quite limited. Continue IV antibiotics but were hoping to switch therapy to p.o. once intakeimproved. Patient is clinically stable at this time. Rafael Chairez MD [facility] Office [phone] Record created with voice recognition software. Occasional wrong-word or '[id number]' substitutions may have occurred due to the inherent limitations of voice recognition software. Read the chart carefully and recognize, using context, where substitutions have occurred. * Ivonne Thao MD - 02/13/2021 1:01 PM CDT Surgery Still with some crampy pain. Some flatus. NO BM. AVSS WBC 20 Hgb 9 K 2.6 Abd-soft, mild distention, hypoBS, mild tenderness CT - possible pSBO A/P:pSBO. If no significant improvement by tomorrow, will order SBS. Replace K. * Sharad Mcdonnell MD - 02/13/2021 10:20 AM CDT Daily Progress Subjective Patient continues to have NG tube in place. No new issues overnight. On 3 L of oxygen right now Objective Vitals: Most Recent : Vitals: 02/13/21 0829 BP: 157/77 Pulse: 99 Resp: 18 Temp: 36.4 ??C (97.6 ??F) SpO2: 100% I/O last 2 completed shifts: In: 1971 [I.V.:1772; IV Piggyback:200] Out: 2139 [Urine:825; Emesis/NG output:1315] Physical Exam: Physical Exam Constitutional: AAOx3, NAD, cooperative Heart: RRR no M/R/G Lungs: CTA B/L, normal work of breathing Abdomen: s, mildly tender diffusely, +bowel sounds, no organomegaly Ext: No LE edema, good distal pulses Neuro: Oriented X3, No cranial or peripheral nerve deficits Psych: normal mood and affect Lab Review: I personally reviewed these images. Recent laboratory data was reviewed. Medications and allergies were reviewed. Imaging: [facility] Pulmonary Ventilation and Perfusion Imaging Result Date: 02/09/2021 1. Very low probability for pulmonary embolism. 2. The patient refused to wear the mask for the entire ventilation portion of the exam. 3. Decreased ventilation at the right lung initially, likely related to the patient's presumed pneumonia. Abnormal washout of xenon from the right lung and left lung base. Electronically signed by: Reena Carranza M.D. XR Chest 1 Vw portable Result Date: 02/09/2021 Diffuse right lung opacity concerning for pneumonia Electronically signed by: Lolly Redding M.D. Diagnostics: No results found for this or any previous visit. Assessment/Plan Healthcare associated pneumonia MRSA + Acute respiratory failure with hypoxia Blood cultures + for gemella haemolysans Leukocytosis Elevated D-dimer Hypokalemia Hyponatremia Metabolic acidosis Acute kidney injury Lactic acidosis Hypotension Suicidal and homicidal ideation Severe Protein calorie malnutrition Depression Anxiety Polysubstance abuse Anemia-iron def - IV zosyn per ID recommendations - blood cultures from February 08 showed contamination - follow WBC - improving - wean O2 as tolerated - follow potassium and magnesium and replace if needed - continue NG tube - obstructive series showing improving SBO -resume oral medications once able to take PO - continue IV fluids - monitor sodium - monitor renal function and electrolytes - VQ low prob for PE - IV venfoer x3 days for low iron - appreciate surgery recommendations - appreciate ID recommendations - appreciate pulmonology recommendations - sitter at bedside - will need evaluation per psychiatry to go back to [facility] Discharge Planning: Patient will need another night of inpatient care for the above medical issues reviewed and discussed with team and reviewed and protocol in place * Lolly Byrne, RD - 02/13/2021 8:24 AM CDT Nutrition Assessment Reason for Assessment: Follow Up Encounter Date: 02/13/21 8:31 AM Nutrition Assessment and Plan: Patient is a 55 y.o. female. Admit Dx: ACUTE HYPOXEMICRESPITORY FAILURE. Admitted on 02/08/2021, current LOS is 5 days. Pt intake is inadequate. Pt with NG to LIS. Pt with possible ileus vs SBO. Pt met criteria for severe malnutrition 01/25/21. Nurse Practitioner documented severe protein calorie malnutrition. Pt reports eating <25% at meals for greater than 7 days. Pt with moderate muscleand subcutaneous fat loss. Pt continues to meet criteria for severe malnutrition in the context of acute illness, POA. See ASPEN malnutrition guidelines. Pt currently NPO status and unable to obtain adequate nutrition with current diet order. Recommend diet advancement once medically appropriate. Will assess need for supplement initiation once diet advances. Will continue to monitor pt and will f/u with diet advancement, supplement needs, nutrition and wt status, labs, and any additional nutrition needs. Wt Readings from Last 10 Encounters: 02/10/21 50.3 kg (110 lb 12.8 oz) 01/14/21 45 kg (99 lb 3.2 oz) 07/13/20 54.3 kg (119 lb 9.6 oz) 06/09/20 53.5 kg (118 lb) 06/08/20 53.5 kg (118 lb) 06/06/20 54.2 kg (119 lb 8 oz) 05/19/20 53.5 kg (118 lb) 05/11/20 52.6 kg (116 lb) 04/22/20 53.5 kg (118 lb) 04/19/20 54 kg (119 lb 0.8 oz) Adult Malnutrition Scoring Tool (MST) Have You Recently Lost Weight Without Trying?: Yes (Comment) Have you been eating poorly because of a decreased appetite?: Yes Malnutrition Screening Tool (MST) Score: 1 ASPEN Malnutrition Assessment: Acute Illness/Injury Severe Energy Intake: < or equal to 50% energy intake compared to estimated energy needs > (or equalto) 5 days Body Fat: Moderate Muscle Mass: Moderate Patient Meets Criteria for Severe Malnutrition: Yes Nutrition Focused Physical Exam Notes: Subcutaneous Fat Loss Orbital Region - Surrounding the Eye: Somewhat hollow look Upper Arm Region - Triceps/Biceps: Some depth pinch but not ample Muscle Loss Bahai Region - Temporalis Muscle: Slight depression Clavicle Bone Region - Pectoralis Major, Deltoid, Trapezius Muscles: Visible in male, some protrusion in female Clavicle and Acromion Bone Region - Deltoid Muscle: Acromion process may slightly protrude Dorsal Hand - Interosseous Muscle: Slightly depressed Dietary Orders (From admission, onward) Start Ordered 02/09/211812 NPO Diet Diet effective now 02/09/211812 Nutrition Diagnosis 1: Malnutrition - Severe Related to: Acute illness/injury, Loss of appetite Evidenced by: Muscle loss, Subcutaneous fat loss Interventions: Other (comment) (Follow up) Monitoring and Evaluation: Diet advancement, Discharge plans, Labs, Plan of care, Weight changes ?? Goals: Advance to oral intake as medically able Nutrition Diagnosis 2: Inadequate oral intakeRelated to: Altered GI functionEvidenced by: Physical finding Interventions: Other (comment) (Follow up) Monitoring and Evaluation: Diet advancement, Discharge plans, Labs, Plan of care, Weight changes Goals: Advance to oral intake as medically able Nutrition Needs Calculations: Calculated Energy Needs Using Equations Weight: 50.3 kg (110 lb 12.8 oz) Height: 165 cm (5' 4.96 ) Estimated Protein Needs Type of Weight Used for Estimated Protein : Current Protein Needs Based on g/k.2 Total Protein Estimated Needs (gm): 63.3 Kcal/kg Type of Weight Used for Estimated Kcals: Current Kcal/k Total Kcal/kg Estimated Needs : 1582.59 Estimated Fluid Needs Type of Weight Used for Estimated Fluid Needs: Current Fluid Needs Based on : 1 ml/kcal Total Fluid Estimated Needs: 1582.59 Objective Anthropometrics Weight: 50.3 kg (110 lb 12.8 oz) Admission Weight : 52.8 kg Weight Change: -2.49 kg (-5.50 lbs) IBW/kg (Calculated) : 56.6 kg Height: 165 cm (5' 4.96 ) Weight in (lb) to have BMI = 25: 149.7 BMI (Calculated): 18.5 BMI Classification: BMI 18.5 - 24.9 Normal Weight 3 Day I/O Summary 02/11 1900 - 02/13 0659 In: 2972 [I.V.:2772] Out: 2615 [Urine:825] Temp: 36.4 ??C (97.6 ??F) Past Medical History: Diagnosis Date ??? Anemia ??? Anxiety disorder ??? Colon obstruction (CMS/HCC) ??? DVT (deep venous thrombosis) (CMS/HCC) 11/2018 ??? Endometriosis Endometriosis-21 times ??? Hyperlipidemia ??? PONV (postoperative nausea and vomiting) IV medications help ??? Trigeminal neuralgia Medications and Lab Review: Scheduled Meds: [Held by Provider] aspirin, 81 mg, oral, Every other day [Held by Provider] atorvastatin, 20 mg, oral, Nightly [Held by Provider] cyanocobalamin, 1,000 mcg, oral, Daily [Held by Provider] cyclobenzaprine, 10 mg, oral, BID [Held by Provider] dicyclomine, 10 mg, oral, TID [Held by Provider] docusate sodium, 100 mg, oral, Daily ferric gluconate, 125 mg of elemental iron, intravenous, Daily fluticasone propionate, 2 spray, each nostril, Daily [Held by Provider] folic acid, 1 mg, oral, Daily with dinner levETIRAcetam, 250 mg, intravenous, Q12H ELIU [Held by Provider] levETIRAcetam, 250 mg, oral, BID [Held by Provider] OLANZapine, 10 mg, oral, Nightly [Held by Provider] OLANZapine, 5 mg, oral, Daily [Held by Provider] pantoprazole DR, 40 mg, oral, QAM piperacillin-tazobactam, 3.375 g, intravenous, Q8H [Held by Provider] prazosin, 1 mg, oral, Nightly sodium chloride 0.9%, 0.5-20 mL, intra-catheter, Q8H ELIU sodium chloride 0.9%, 5-10 mL, intra-catheter, Q8H ELIU Continuous Infusions: dextrose 5% and Lactated Ringer's, 100 mL/hr, Last Rate: 100 mL/hr (02/13/21 0020) Sodium Date Value Ref Range Status 02/13/2021 139 135 - 145 mmol/L Final Potassium, pl Date Value Ref Range Status 02/13/2021 2.6 (Critical) 3.3 - 4.9 mmol/L Final Comment: Critical Result called by [email or web address] at 2021-02-13 07:38:50. Result Read Back by LIDA SULTANA RN BUN Date Value Ref Range Status 02/13/2021 5 (L) 8 - 25 mg/dL Final Creatinine Date Value Ref Range Status 02/13/2021 0.60 0.60 - 1.10 mg/dL Final Calcium Date Value Ref Range Status 02/13/2021 8.0 (L) 8.5 - 10.3 mg/dL Final No results found for: HGBA1C Nursing Assessment: Last BM Date: 02/08/21 Bowel Sounds (All Quadrants): Hypoactive Emesis Assessment Emesis Color/Appearance: Brown Daphnie Scale Score: 20-wnl Lolly Byrne RD,LD * Ed Oconnor MD - 02/13/2021 6:44 AM CDT Pulmonary Daily Progress Chief complaint/reason for consult: Pneumonia Interval History: Patient has been weaned to 3 L of supplemental oxygen. She is less anxious. Appears more alert and comfortable today Coughing. Complaining of back pain. Complaining of bilateral pleuritic chest discomfort NG in place. Afebrile Presenting History: 55-year-old female has a history of previous DVT 2019 history of dyslipidemia neuralgia depression posttraumatic stress chronic abdominal pain endometriosis previous infected mesh. Has a history of opioid use in the past chronic low . back pain benzodiazepine use in the past. Was in [facility] for abdominal pain secondary to constipation while there developed [place] ide[place] developed more coughing diminished appetite presented to the ER found to have a right infiltrate. Serum creatinine 2 0.1. The patient had a V/Q scan that was low probability. Coughing has improved. Nonsmoker. No hemoptysis. Has been placed on cefepime/vancomycin. Feels better. Allergies: Allergies Allergen Reactions ??? Codeine Hives ??? Duloxetine Mental status changes Reaction: CONFUSION, ??? Gabapentin Mental status changes ??? Paxil [Paroxetine] Mental status changes ??? Wellbutrin [Bupropion] Mental status changes ??? Zoloft [Sertraline] Mental status changes Medications: Scheduled Meds:[Held by Provider] aspirin, 81 mg, oral, Every other day [Held by Provider] atorvastatin, 20 mg, oral, Nightly [Held by Provider] cyanocobalamin, 1,000 mcg, oral, Daily [Held by Provider] cyclobenzaprine, 10 mg, oral, BID [Held by Provider] dicyclomine, 10 mg, oral, TID [Held by Provider] docusate sodium, 100 mg, oral, Daily ferric gluconate, 125 mg of elemental iron, intravenous, Daily fluticasone propionate, 2 spray, each nostril, Daily [Held by Provider] folic acid, 1 mg, oral, Daily with dinner levETIRAcetam, 250 mg, intravenous, Q12H ELIU [Held by Provider] levETIRAcetam, 250 mg, oral, BID [Held by Provider] OLANZapine, 10 mg, oral, Nightly [Held by Provider] OLANZapine, 5 mg, oral, Daily [Held by Provider] pantoprazole DR, 40 mg, oral, QAM piperacillin-tazobactam, 3.375 g, intravenous, Q8H [Held by Provider] prazosin, 1 mg, oral, Nightly sodium chloride 0.9%, 0.5-20 mL, intra-catheter, Q8H ELIU sodium chloride 0.9%, 5-10 mL, intra-catheter, Q8H ELIU Continuous Infusions:dextrose 5% and Lactated Ringer's, 100 mL/hr, Last Rate: 100 mL/hr (02/13/21 0020) PRN Meds:.??? acetaminophen OR acetaminophen OR acetaminophen ??? dextrose OR dextrose ??? glucagon ??? ketorolac ??? OLANZapine ??? ondansetron ODT OR ondansetron ??? prochlorperazine ??? sodium chloride 0.9% ??? sodium chloride 0.9% Review of Systems Respiratory: Positive for cough. Cardiovascular: Positive for chest pain. Musculoskeletal: Positive for back pain. Above review of system reviewed on 02/13/2021 Vitals: Vitals: 02/12/21 2024 02/13/21 0006 02/13/21 0422 02/13/21 0600 BP: 157/81 154/99 BP Location: Left arm Left arm Patient Position: Lying Lying Pulse: 107 93 101 113 Resp: 17 18 Temp: 36.7 ??C (98.1 ??F) 37.2 ??C (99 ??F) TempSrc: Axillary Oral SpO2: 98% 90% Weight: Height: Temp (24hrs), Av.9 ??C (98.4 ??F), Min:36.6 ??C (97.8 ??F), Max:37.2 ??C (99 ??F) Intake/Output Summary (Last 24 hours) at 02/13/2021 0645 Last data filed at 02/13/2021 0015 Gross per 24 hour Intake 1972 ml Output 2140 ml Net -168 ml Physical Exam Constitutional: General: She is not in acute distress. Appearance: She is well-developed. Comments: Very thin HENT: Head: Normocephalic and atraumatic. Eyes: Conjunctiva/sclera: Conjunctivae normal. Neck: Thyroid: No thyromegaly. Cardiovascular: Rate and Rhythm: Normal rate and regular rhythm. Heart sounds: No murmur heard. No friction rub. Pulmonary: Effort: Pulmonary effort is normal. No respiratory distress. Breath sounds: Normal breath sounds. No stridor. No wheezing or rales. Abdominal: General: Bowel sounds are normal. Palpations: Abdomen is soft. Neurological: Mental Status: She is alert and oriented to person, place, and time. Lab/Radiology/Diagnostic Review: Labs: Recent Labs Lab Units 02/13/21 0627 02/11/21 0511 02/10/21 0237 02/09/21 0041 02/08/21 1830 WBC K/cumm 20.1* 25.7* 14.8* < > 7.6 HEMOGLOBIN g/dL 9.0* 7.8* 8.0* < > 10.6* HEMATOCRIT % 27.1* 23.7* 24.7* < > 32.0* PLATELETS K/cumm 112* 135* 186 < > 296 NEUTROS PCT % -- -- -- -- 79.8 LYMPHS PCT % -- -- -- -- 7.8 MONOS PCT % -- -- -- -- 10.1 EOS PCT % -- -- -- -- 0.7 < > = values in this interval not displayed. Recent Labs Lab Units 02/12/21 2153 02/12/21 0512 02/12/21 0024 02/11/21 1552 02/11/21 0511 02/10/21 0334 02/10/21 0237 02/09/21 00402/08/21 1830 SODIUM mmol/L -- 137 -- -- 138 -- 133* < > 131* POTASSIUM PLASMA mmol/L -- 3.6 -- -- 3.2* -- 4.7 < > 3.0* CHLORIDE mmol/L -- 103 -- -- 102 -- 98 < > 82* CO2 mmol/L -- 24 -- -- 28 -- 25 < > 32 ANIONGAP mmol/L -- 10 -- -- 8 -- 10 < > 17* GLUCOSE mg/dL -- 108 -- -- 118 < > 66* < > 89 POC GLUCOSE MONITOR mg/dL 113* -- 118* < > -- < > -- -- -- BUN SERUM mg/dL -- 8 -- -- 16 -- 37* < > 30* CREATININE mg/dL -- 0.60 -- -- 0.80 -- 1.30* < > 2.10* CALCIUM mg/dL -- 7.9* -- -- 8.2* -- 8.2* < > 9.9 ALBUMIN g/dL -- -- -- -- -- -- -- -- 3.4* ALK PHOS Units/L -- -- -- -- -- -- -- -- 94 ALT Units/L -- -- -- -- -- -- -- -- 21 AST Units/L -- -- -- -- -- -- -- -- 41 BILIRUBIN TOTAL mg/dL -- -- -- -- -- -- -- -- 0.2 < > = values in this interval not displayed. Imaging: CT abdomen pelvis 02/12/2021 reviewed as follows:1. Several mildly to moderately dilated small bowel loops without discrete transition point to diagnose mechanical obstruction on the basis of adhesions. There is one distorted bowel loop in the pelvis with associated mild mesenteric distortion, but no clear evidence that this is associated with a discrete obstruction point or obvious internal hernia. The possibility of partial obstruction associated with multiple adhesions is always a possibility with complicated postsurgical anatomy. ?? 2. Post left hemicolectomy with moderate amount of residual colorectal stool. ?? 3. Diffuse mesenteric edema and trace ascites. ?? 4. Stomach decompressed by a nasogastric tube with mild gastric mucosal hyperenhancement, which could reflect gastritis. ?? 5. Bibasilar pneumonia with small to moderate bilateral pleural effusions. ?? 6. Diffuse aortic atherosclerosis with mild celiac and 50% superior mesenteric artery origin narrowings. No high-grade visceral artery stenosis or thrombosis. ?? 7. Small nonobstructing left renal stones. Other diagnostic tests: MRSA PCR positive I have personally reviewed above laboratory findings, chest imaging, and diagnostic tests 02/13/2021 Assessment and Plan: *Ruaxdhvz-kupn-nxjamzaw pneumonia MRSA PCR positive Blood cultures positive for Gemella hemolysans Acute renal insufficiency Depression anxiety ?? rec Continuation of Zosyn as per Infectious Disease F/u CXR Left thoracentesis. Discussed with the patient who is agreeable. I discussed with her , Markincluding risks of bleeding and pneumothorax. He understands and agrees Wean oxygen as tolerated * Ivonne Thao MD - 02/12/2021 12:09 PM CDT Surgery Continues to complain of abdominal pain. Denies flatus or BM. AVSS NG tube 175 cc Abdomen soft, slightly hypoactive bowel sounds, nondistended with mild diffuse tenderness CT scan pending A/P: Abdominal pain. Question partial small-bowel obstruction or ileus. Await results of CT scan. NG tube putting out less. * Ed Oconnor MD - 02/12/2021 7:44 AM CDT Pulmonary Daily Progress Chief complaint/reason for consult: Pneumonia Interval History: Patient remains on 6 L of supplemental oxygen. She is less anxious. Appears more alert and comfortable today Coughing. Complaining of back pain. NG in place. Presenting History: 55-year-old female has a history of previous DVT 2019 history of dyslipidemia neuralgia depression posttraumatic stress chronic abdominal pain endometriosis previous infected mesh. Has a history of opioid use in the past chronic low . back pain benzodiazepine use in the past. Was in [facility] for abdominal pain secondary to constipation while there developed suicidal ideations [place] developed more coughing diminished appetite presented to the ER found to have a right infiltrate. Serum creatinine 2 0.1. The patient had a V/Q scan that was low probability. Coughing has improved. Nonsmoker. No hemoptysis. Has been placed on cefepime/vancomycin. Feels better. Allergies: Allergies Allergen Reactions ??? Codeine Hives ??? Duloxetine Mental status changes Reaction: CONFUSION, ??? Gabapentin Mental status changes ??? Paxil [Paroxetine] Mental status changes ??? Wellbutrin [Bupropion] Mental status changes ??? Zoloft [Sertraline] Mental status changes Medications: Scheduled Meds:aspirin, 81 mg, oral, Every other day atorvastatin, 20 mg, oral, Nightly cyanocobalamin, 1,000 mcg, oral, Daily cyclobenzaprine, 10 mg, oral, BID dicyclomine, 10 mg, oral, TID docusate sodium, 100 mg, oral, Daily fluticasone propionate, 2 spray, each nostril, Daily folic acid, 1 mg, oral, Daily with dinner levETIRAcetam, 250 mg, intravenous, Q12H ELIU [Held by Provider] levETIRAcetam, 250 mg, oral, BID OLANZapine, 10 mg, oral, Nightly OLANZapine, 5 mg, oral, Daily pantoprazole DR, 40 mg, oral, QAM piperacillin-tazobactam, 3.375 g, intravenous, Q8H prazosin, 1 mg, oral, Nightly sodium chloride 0.9%, 0.5-20 mL, intra-catheter, Q8H EILU sodium chloride 0.9%, 5-10 mL, intra-catheter, Q8H ELIU Continuous Infusions:dextrose 5% and Lactated Ringer's, 100 mL/hr, Last Rate: 100 mL/hr (02/12/21 0435) PRN Meds:.??? acetaminophen OR acetaminophen OR acetaminophen ??? dextrose OR dextrose ??? glucagon ??? ketorolac ??? OLANZapine ??? ondansetron ODT OR ondansetron ??? prochlorperazine ??? sodium chloride 0.9% ??? sodium chloride 0.9% Review of Systems Respiratory: Positive for cough. Musculoskeletal: Positive for back pain. Above review of system reviewed on 02/12/2021 Vitals: Vitals: 02/11/21202702/11/21 2348 02/12/21 0530 02/12/21 0550 BP: 138/69 149/97 BP Location: Left arm Left arm Patient Position: Lying Pulse: 110 98 101 110 Resp: 18 Temp: 36.4 ??C (97.5 ??F) 36.4 ??C (97.6 ??F) TempSrc: Axillary Oral SpO2: 96% 97% Weight: Height: Temp (24hrs), Av.7 ??C (98 ??F), Min:36.4 ??C (97.5 ??F), Max:37 ??C (98.6 ??F) Intake/Output Summary (Last 24 hours) at 02/12/2021 0744 Last data filed at 02/12/2021 0525 Gross per 24 hour Intake 2521.67 ml Output 1325 ml Net 1196.67 ml Physical Exam Constitutional: General: She is not in acute distress. Appearance: She is well-developed. Comments: Very thin HENT: Head: Normocephalic and atraumatic. Eyes: Conjunctiva/sclera: Conjunctivae normal. Neck: Thyroid: No thyromegaly. Cardiovascular: Rate and Rhythm: Normal rate and regular rhythm. Heart sounds: No murmur heard. No friction rub. Pulmonary: Effort: Pulmonary effort is normal. No respiratory distress. Breath sounds: Normal breath sounds. No stridor. No wheezing or rales. Abdominal: General: Bowel sounds are normal. Palpations: Abdomen is soft. Neurological: Mental Status: She is alert and oriented to person, place, and time. Lab/Radiology/Diagnostic Review: Labs: Recent Labs Lab Units 02/11/21 0511 02/10/21 0237 02/09/21 0041 02/08/21 1830 02/08/21 1830 WBC K/cumm 25.7* 14.8* 10.7* < > 7.6 HEMOGLOBIN g/dL 7.8* 8.0* 9.4* < > 10.6* HEMATOCRIT % 23.7* 24.7* 28.2* < > 32.0* PLATELETS K/cumm 135* 186 230 < > 296 NEUTROS PCT % -- -- -- -- 79.8 LYMPHS PCT % -- -- -- -- 7.8 MONOS PCT % -- -- -- -- 10.1 EOS PCT % -- -- -- -- 0.7 < > = values in this interval not displayed. Recent Labs Lab Units 02/12/21 0512 02/12/21 0024 02/11/21 1552 02/11/21 0511 02/10/21 1720 02/10/21 0334 02/10/21 0237 02/09/21 0041 02/08/21 1830 SODIUM mmol/L 137 -- -- 138 -- -- 133* < > 131* POTASSIUM PLASMA mmol/L 3.6 -- -- 3.2* -- -- 4.7 < > 3.0* CHLORIDE mmol/L 103 -- -- 102 -- -- 98 < > 82* CO2 mmol/L 24 -- -- 28 -- -- 25 < > 32 ANIONGAP mmol/L 10 -- -- 8 -- -- 10 < > 17* GLUCOSE mg/dL 108 -- -- 118 -- < > 66* < > 89 POC GLUCOSE MONITOR mg/dL -- 118* 124* -- < > < > -- -- -- BUN SERUM mg/dL 8 -- -- 16 -- -- 37* < > 30* CREATININE mg/dL 0.60 -- -- 0.80 -- -- 1.30* < > 2.10* CALCIUM mg/dL 7.9* -- -- 8.2* -- -- 8.2* < > 9.9 ALBUMIN g/dL -- -- -- -- -- -- -- -- 3.4* ALK PHOS Units/L -- -- -- -- -- -- -- -- 94 ALT Units/L -- -- -- -- -- -- -- -- 21 AST Units/L -- -- -- -- -- -- -- -- 41 BILIRUBIN TOTAL mg/dL -- -- -- -- -- -- -- -- 0.2 < > = values in this interval not displayed. Imaging: Other diagnostic tests: MRSA PCR positive I have personally reviewed above laboratory findings, chest imaging, and diagnostic tests 02/12/2021 Assessment and Plan: *Aloumcjo-fgfm-pdzwfnbr pneumonia MRSA PCR positive Blood cultures positive for Gemella hemolysans Acute renal insufficiency Depression anxiety ?? Continuation of Zosyn as per Infectious Disease F/u CXR CT abdomen and pelvis has been ordered Wean oxygen as tolerated * Ivonne Thao MD - 02/11/2021 1:29 PM CDT Surgery Continues to complain of lower abdominal pain. She feels this is worse than yesterday. She has passed some gas. No bowel movement. AVSS NG tube 600 cc WBC 25.7 Hemoglobin 7.8 Abdomen soft, mildly distended with hypoactive bowel sounds and mild to moderate bilateral lower quadrant tenderness with some voluntary guarding Obstructive series slightly improved with gas in colon A/P: Hospital-acquired pneumonia. Partial small-bowel obstruction versus ileus. Could also have constipation as a cause for her abdominal pain. With increasing pain and rising white count, will orderCT scan of the abdomen pelvis for further evaluation. * Ed Oconnor MD - 02/11/2021 7:36 AM CDT Pulmonary Daily Progress Chief complaint/reason for consult: Pneumonia Interval History: Patient remains on 4 L of supplemental oxygen. She is anxious. Coughing. Complaining of back pain. NG in place. Had been having nausea and emesis Presenting History: 55-year-old female has a history of previous DVT 2019 history of dyslipidemia neuralgia depression posttraumatic stress chronic abdominal pain endometriosis previous infected mesh. Has a history of opioid use in the past chronic low . back pain benzodiazepine use in the past. Was in [facility] for abdominal pain secondary to constipation while there developed suicidal ideations [place] developed more coughing diminished appetite presented to the ER found to have a right infiltrate. Serum creatinine 2 0.1. The patient had a V/Q scan that was low probability. Coughing has improved. Nonsmoker. No hemoptysis. Has been placed on cefepime/vancomycin. Feels better. Allergies: Allergies Allergen Reactions ??? Codeine Hives ??? Duloxetine Mental status changes Reaction: CONFUSION, ??? Gabapentin Mental status changes ??? Paxil [Paroxetine] Mental status changes ??? Wellbutrin [Bupropion] Mental status changes ??? Zoloft [Sertraline] Mental status changes Medications: Scheduled Meds:aspirin, 81 mg, oral, Every other day atorvastatin, 20 mg, oral, Nightly cefepime, 1,000 mg, intravenous, Q12H cyanocobalamin, 1,000 mcg, oral, Daily cyclobenzaprine, 10 mg, oral, BID dicyclomine, 10 mg, oral, TID docusate sodium, 100 mg, oral, Daily fluticasone propionate, 2 spray, each nostril, Daily folic acid, 1 mg, oral, Daily with dinner levETIRAcetam, 250 mg, intravenous, Q12H ELIU [Held by Provider] levETIRAcetam, 250 mg, oral, BID OLANZapine, 10 mg, oral, Nightly OLANZapine, 5 mg, oral, Daily pantoprazole DR, 40 mg, oral, QAM prazosin, 1 mg, oral, Nightly sodium chloride 0.9%, 0.5-20 mL, intra-catheter, Q8H ELIU sodium chloride 0.9%, 5-10 mL, intra-catheter, Q8H ELIU vancomycin, 1,000 mg, intravenous, Q24H Continuous Infusions:dextrose 5% and Lactated Ringer's, 100 mL/hr, Last Rate: 100 mL/hr (02/11/21 0620) PRN Meds:.??? acetaminophen OR acetaminophen OR acetaminophen ??? dextrose OR dextrose ??? glucagon ??? OLANZapine ??? ondansetron ODT OR ondansetron ??? prochlorperazine ??? sodium chloride 0.9% ??? sodium chloride 0.9% Review of Systems Respiratory: Positive for cough. Musculoskeletal: Positive for back pain. Above review of system reviewed on 02/11/2021 Vitals: Vitals: 02/10/21 2055 02/10/21 2311 02/11/21 0200 02/11/21 0443 BP: 137/79 141/68 145/88 BP Location: Left arm Left arm Left arm Patient Position: Lying Lying Lying Pulse: 118 115 111 109 Resp: 18 18 18 Temp: 37.6 ??C (99.6 ??F) 37.3 ??C (99.1 ??F) 37.2 ??C (98.9 ??F) TempSrc: Oral Oral Oral SpO2: 95% 92% 94% Weight: Height: Temp (24hrs), Av.3 ??C (99.2 ??F), Min:37.2 ??C (98.9 ??F), Max:37.6 ??C (99.6 ??F) Intake/Output Summary (Last 24 hours) at 02/11/2021 0736 Last data filed at 02/11/2021 0620 Gross per 24 hour Intake 1401 ml Output 600 ml Net 801 ml Physical Exam Constitutional: General: She is not in acute distress. Appearance: She is well-developed. Comments: Very thin HENT: Head: Normocephalic and atraumatic. Eyes: Conjunctiva/sclera: Conjunctivae normal. Neck: Thyroid: No thyromegaly. Cardiovascular: Rate and Rhythm: Normal rate and regular rhythm. Heart sounds: No murmur heard. No friction rub. Pulmonary: Effort: Pulmonary effort is normal. No respiratory distress. Breath sounds: Normal breath sounds. No stridor. No wheezing or rales. Abdominal: General: Bowel sounds are normal. Palpations: Abdomen is soft. Neurological: Mental Status: She is alert and oriented to person, place, and time. Lab/Radiology/Diagnostic Review: Labs: Recent Labs Lab Units 02/11/21 0511 02/10/21 0237 02/09/21 0041 02/08/21 1830 02/08/21 1830 WBC K/cumm 25.7* 14.8* 10.7* < > 7.6 HEMOGLOBIN g/dL 7.8* 8.0* 9.4* < > 10.6* HEMATOCRIT % 23.7* 24.7* 28.2* < > 32.0* PLATELETS K/cumm 135* 186 230 < > 296 NEUTROS PCT % -- -- -- -- 79.8 LYMPHS PCT % -- -- -- -- 7.8 MONOS PCT % -- -- -- -- 10.1 EOS PCT % -- -- -- -- 0.7 < > = values in this interval not displayed. Recent Labs Lab Units 02/11/21 0511 02/10/21 1720 02/10/21 1235 02/10/21 0334 02/10/21 0237 02/09/21 0041 02/09/21 0041 02/08/21 1830 02/08/21 1830 SODIUM mmol/L 138 -- -- -- 133* -- 132* < > 131* POTASSIUM PLASMA mmol/L 3.2* -- -- -- 4.7 -- 2.9* < > 3.0* CHLORIDE mmol/L 102 -- -- -- 98 -- 88* < > 82* CO2 mmol/L 28 -- -- -- 25 -- 30 < > 32 ANIONGAP mmol/L 8 -- -- -- 10 -- 14 < > 17* GLUCOSE mg/dL 118 -- -- -- 66* < > 86 < > 89 POC GLUCOSE MONITOR mg/dL -- 105 110 < > -- -- -- -- -- BUN SERUM mg/dL 16 -- -- -- 37* -- 33* < > 30* CREATININE mg/dL 0.80 -- -- -- 1.30* -- 1.90* < > 2.10* CALCIUM mg/dL 8.2* -- -- -- 8.2* -- 8.9 < > 9.9 ALBUMIN g/dL -- -- -- -- -- -- -- -- 3.4* ALK PHOS Units/L -- -- -- -- -- -- -- -- 94 ALT Units/L -- -- -- -- -- -- -- -- 21 AST Units/L -- -- -- -- -- -- -- -- 41 BILIRUBIN TOTAL mg/dL -- -- -- -- -- -- -- -- 0.2 < > = values in this interval not displayed. Imaging: Other diagnostic tests: MRSA PCR positive I have personally reviewed above laboratory findings, chest imaging, and diagnostic tests 02/11/2021 Assessment and Plan: *Cyzbpwkw-uatp-lwhvgpuf pneumonia MRSA PCR positive Blood cultures positive for Gemella hemolysans Acute renal insufficiency Depression anxiety ?? Continuation of cefepime and vancomycin F/u CXR IVF and renal per primary care * Randy New [facility] - 02/10/2021 8:42 PM CDT [facility] Pharmacokinetic Consult - Vancomycin Dosing Madison Weinberg is a 55 y.o. female who has been consulted for vancomycin dosing. Assessment/Plan Patient is on day 3 of vancomycin therapy. Lab Results Component [facility] Date [facility]/10/2021 Vancomycin Level is Supratherapeutic based on goal of 15-20 mcg/ml. Plan to increase to 1gm q24hrs. Will repeat level in 3 days. Pharmacy will continue to follow the patient???s culture results and clinical progress daily. Randy New RPh, 02/10/21 8:41 PM * Sharad Mcdonnell MD - 02/10/2021 9:37 AM CDT Daily Progress Subjective Patient developed nausea and vomiting yesterday with brown color is production. Workup revealed likely ileus Objective Vitals: Most Recent : Vitals: 02/10/21 0734 BP: 131/66 Pulse: 108 Resp: 22 Temp: 36.7 ??C (98 ??F) SpO2: 91% I/O last 2 completed shifts: In: 100 [P.O.:100] Out: 2000 [Urine:350; Emesis/NG output:1650] Physical Exam: Physical Exam Constitutional: AAOx3, NAD, cooperative Heart: RRR no M/R/G Lungs: CTA B/L, normal work of breathing Abdomen: s, mildly tender diffusely, +bowel sounds, no organomegaly Ext: No LE edema, good distal pulses Neuro: Oriented X3, No cranial or peripheral nerve deficits Psych: normal mood and affect Lab Review: I personally reviewed these images. Recent laboratory data was reviewed. Medications and allergies were reviewed. Imaging: NM Pulmonary Ventilation and Perfusion Imaging Result Date: 02/09/2021 1. Very low probability for pulmonary embolism. 2. The patient refused to wear the mask for the entire ventilation portion of the exam. 3. Decreased ventilation at the right lung initially, likely related to the patient's presumed pneumonia. Abnormal washout of xenon from the right lung and left lung base. Electronically signed by: Reena Carranza M.D. XR Chest 1 Vw portable Result Date: 02/09/2021 Diffuse right lung opacity concerning for pneumonia Electronically signed by: Lolly Redding M.D. Diagnostics: No results found for this or any previous visit. Assessment/Plan Healthcare associated pneumonia Elevated D-dimer Hypokalemia Hyponatremia Metabolic acidosis Acute kidney injury Lactic acidosis Hypotension Suicidal and homicidal ideation Severe Protein calorie malnutrition Depression Anxiety Polysubstance abuse - continue broad-spectrum antibiotics - potassium and magnesium improved - continue NG tube - recheck obstructive series tomorrow - continue IV fluids - monitor sodium - improving - monitor renal function and electrolytes - VQ low prob for PE - appreciate surgery recommendations Discharge Planning: Patient will need another night of inpatient care for the above medical issues reviewed and discussed with team and reviewed and protocol in place * Tayo Goode RPh - 02/10/2021 8:50 AM CDT Cefepime will be dose adjusted to 1 gm every 12 hours according to the following pharmacy dosing guidelines, based on Estimated Creatinine Clearance: 38.8 mL/min (A) (by C-G formula based on SCr of 1.3 mg/dL (H)). CrCl (mL/min) Usual Dose Uncomplicated UTI Pseudomonas Coverage, [employer], Severe Infection, and/or BMI > 40 > 60 1 g q8h 1 g q12h 2 g q8h 30-60 1 g q12h 1 g q24h 2 g q12h 11-29 1 g q24h 1 g q24h 2 g q24h < 11 1 g q24h 1 g q24h 1 g q24h Hemodialysis 1 g q24h 1 g q24h 1 g q24h Peritoneal Dialysis 1 g q48h 1 g q48h 2 g q48h CVVHDF 2 g q12h 1 g q24h 2 g q12h Severe infection includes, but is not limited to: neutropenic fever, Type 1 beta-lactamase producing infection, sepsis, meningitis, osteomyelitis, pneumonia Doses should be given after hemodialysis. Doses may be adjusted based on laboratory results and the pharmacokinetic and pharmacodynamic principles of the medication and the patient. Patients may require more intensive therapy due to severity of infection or the presence of a specific organism. A serum creatinine should be measured at least weekly. Tayo Goode RPh, 02/10/21 8:50 AM * Lolly Byrne RD - 02/09/2021 3:11 PM CDT Nutrition Assessment Reason for Assessment: Screened at Nutrition Risk, Initial Nutrition Assessment and Consult/Referral Encounter Date: 02/09/21 Nutrition Assessment and Plan: Patient is a 55 y.o. female. Admit Dx: ACUTE HYPOXEMICRESPITORY FAILURE. Admitted on 02/08/2021, current LOS is 1 day. Pt intake is inadequate. Pt met criteria for severe malnutrition 01/25/21. Nurse Practitioner documented severe protein calorie malnutrition. Pt reports eating <25% at meals for greater than 7 days. Pt with moderate muscle and subcutaneous fat loss. Pt meets criteria for severe malnutrition in the context of acute illness, POA. See ASPEN malnutrition guidelines. Pt currently NPO status and unable to obtain adequate nutrition with current diet order. Recommend diet advancement once medically appropriate. Will assess need for supplement initiation once diet advances. Pt reports does not like ensure, boost or magic cup supplements. Pt noted to tolerate Instant Avis Breakfast at home per previous documentation. . Will continue to monitor pt and will f/u with diet advancement, supplement needs, nutrition and wt status, labs, and any additional nutrition needs. Wt Readings from Last 10 Encounters: 02/09/21 52.8 kg (116 lb 4.8 oz) 01/14/21 45 kg (99 lb 3.2 oz) 07/13/20 54.3 kg (119 lb 9.6 oz) 06/09/20 53.5 kg (118 lb) 06/08/20 53.5 kg (118 lb) 06/06/20 54.2 kg (119 lb 8 oz) 05/19/20 53.5 kg (118 lb) 05/11/20 52.6 kg (116 lb) 04/22/20 53.5 kg (118 lb) 04/19/20 54 kg (119 lb 0.8 oz) Adult Malnutrition Scoring Tool (MST) Have You Recently Lost Weight Without Trying?: Yes (Comment) Have you been eating poorly because of a decreased appetite?: Yes Malnutrition Screening Tool (MST) Score: 1 ASPEN Malnutrition Assessment: Acute Illness/Injury Severe Energy Intake: < or equal to 50% energy intake compared to estimated energy needs > (or equalto) 5 days Body Fat: Moderate Muscle Mass: Moderate Patient Meets Criteria for Severe Malnutrition: Yes Nutrition Focused Physical Exam Notes: Subcutaneous Fat Loss Orbital Region - Surrounding the Eye: Somewhat hollow look Upper Arm Region - Triceps/Biceps: Some depth pinch but not ample Muscle Loss Bahai Region - Temporalis Muscle: Slight depression Clavicle Bone Region - Pectoralis Major, Deltoid, Trapezius Muscles: Visible in male, some protrusion in female Clavicle and Acromion Bone Region - Deltoid Muscle: Acromion process may slightly protrude Dorsal Hand - Interosseous Muscle: Slightly depressed Dietary Orders (From admission, onward) Start Ordered 02/09/21 163 NPO Diet Diet effective now 02/09/21 1639 Nutrition Diagnosis 1: Malnutrition - Severe Related to: Acute illness/injury, Loss of appetite Evidenced by: Muscle loss, Subcutaneous fat loss Interventions: Other (comment) (Follow up) Monitoring and Evaluation: Diet advancement, Discharge plans, Labs, Plan of care, Weight changes ?? Goals: Advance to oral intake as medically able Nutrition Needs Calculations: Calculated Energy Needs Using Equations Weight: 52.8 kg (116 lb 4.8 oz) Height: 165 cm (5' 4.96 ) Estimated Protein Needs Type of Weight Used for Estimated Protein : Current Protein Needs Based on g/k.2 Total Protein Estimated Needs (gm): 63.3 Kcal/kg Type of Weight Used for Estimated Kcals: Current Kcal/k Total Kcal/kg Estimated Needs : 1582.59 Estimated Fluid Needs Type of Weight Used for Estimated Fluid Needs: Current Fluid Needs Based on : 1 ml/kcal Total Fluid Estimated Needs: 1582.59 Objective Anthropometrics Weight: 52.8 kg (116 lb 4.8 oz) Admission Weight : 52.8 kg Weight Change: 7.75 kg (17.09 lbs) IBW/kg (Calculated) : 56.6 kg Height: 165 cm (5' 4.96 ) Weight in (lb) to have BMI = 25: 149.7 BMI (Calculated): 19.4 BMI Classification: BMI 18.5 - 24.9 Normal Weight 3 Day I/O Summary 02/07 1900 - 02/09 0659 In: 1600 Out: 350 Temp: 37.1 ??C (98.8 ??F) Past Medical History: Diagnosis Date ??? Anemia ??? Anxiety disorder ??? Colon obstruction (CMS/HCC) ??? DVT (deep venous thrombosis) (CMS/HCC) 11/2018 ??? Endometriosis Endometriosis-21 times ??? Hyperlipidemia ??? PONV (postoperative nausea and vomiting) IV medications help ??? Trigeminal neuralgia Medications and Lab Review: Scheduled Meds: aspirin, 81 mg, oral, Every other day atorvastatin, 20 mg, oral, Nightly benzocaine, 1 spray, mouth/throat, Once cefepime, 1,000 mg, intravenous, Q24H cyanocobalamin, 1,000 mcg, oral, Daily cyclobenzaprine, 10 mg, oral, BID dicyclomine, 10 mg, oral, TID docusate sodium, 100 mg, oral, Daily fluticasone propionate, 2 spray, each nostril, Daily folic acid, 1 mg, oral, Daily with dinner levETIRAcetam, 250 mg, oral, BID OLANZapine, 10 mg, oral, Nightly OLANZapine, 5 mg, oral, Daily pantoprazole DR, 40 mg, oral, QAM prazosin, 1 mg, oral, Nightly sodium chloride 0.9%, 0.5-20 mL, intra-catheter, Q8H ELIU sodium chloride 0.9%, 5-10 mL, intra-catheter, Q8H ELIU vancomycin, 750 mg, intravenous, Q24H Continuous Infusions: sodium chloride 0.9%, 100 mL/hr, Last Rate: 100 mL/hr (02/08/21 2246) Sodium Date Value Ref Range Status 02/09/2021 132 (L) 135 - 145 mmol/L Final Potassium, pl Date Value Ref Range Status 02/09/2021 2.9 (L) 3.3 - 4.9 mmol/L Final BUN Date Value Ref Range Status 02/09/2021 33 (H) 8 - 25 mg/dL Final Creatinine Date Value Ref Range Status 02/09/2021 1.90 (H) 0.60 - 1.10 mg/dL Final Albumin Date Value Ref Range Status 02/08/2021 3.4 (L) 3.5 - 5.0 g/dL Final Magnesium Date Value Ref Range Status 02/08/2021 2.4 1.4 - 2.5 mg/dL Final Calcium Date Value Ref Range Status 02/09/2021 8.9 8.5 - 10.3 mg/dL Final No results found for: HGBA1C Nursing Assessment: Bowel Sounds (All Quadrants): Hypoactive Emesis Assessment Emesis Color/Appearance: Brown Daphnie Scale Score: 19-wnl Lolly Byrne RD,LD * Jet Cheung MD - 02/09/2021 9:56 AM CDT Pulmonary Consult Reason for Consult: Pneumonia HPI: 55-year-old female has a history of previous DVT 2019 history of dyslipidemia neuralgia depression posttraumatic stress chronic abdominal pain endometriosis previous infected mesh. Has a historyof opioid use in the past chronic low back pain benzodiazepine use in the past. Was in [facility] for abdominal pain secondary to constipation while there developed suicidal ideations [place] at [place] developed more coughing diminished appetite presented to the ER found to have a right infiltrate. Serum creatinine 2 0.1. The patient had a V/Q scan that was low probability. Coughing has improved. Nonsmoker. No hemoptysis. Has been placed on cefepime/vancomycin. Feels better. Past Medical History: Diagnosis Date ??? Anemia [...] Medication Sig Dispense Refill Last Dose ??? aspirin 81 mg enteric coated tablet Take 81 mg by mouth every other day Unknown at Unknown time ??? levETIRAcetam (KEPPRA) 250 mg tablet Take 250 mg by mouth 2 (two) times a day Unknown at Unknown time ??? loratadine 10 mg capsule Take 10 mg by mouth daily Unknown at Unknown time ??? OLANZapine (ZyPREXA ZYDIS) 5 mg disintegrating tablet Take 5 mg by mouth every 8 (eight) hours as needed (agitation) Unknown at Unknown time ??? prazosin (MINIPRESS) 1 mg capsule Take 1 mg by mouth nightly Unknown at Unknown time ??? alendronate (FOSAMAX) 70 mg tablet Take 70 mg by mouth every 7 days Take in the morning with a full glass of water, on an empty stomach, and do not take anything else by mouth or lie down for thenext 30 min. saturday Unknown at Unknown time ??? atorvastatin (LIPITOR) 20 mg tablet Take 20 mg by mouth nightly Unknown at Unknown time ??? calcium carbonate-vitamin D3 (CALTRATE 600 + D) 1500 mg (600 mg elemental) - 400 units per tablet Take 1 tablet by mouth 2 (two) times a day Unknown at Unknown time ??? clotrimazole-betamethasone (LOTRISONE) cream Apply 1 application topically daily Unknown at Unknown time ??? cyanocobalamin (Vitamin B-12) 1,000 mcg tablet Take 1,000 mcg by mouth daily Unknown at Unknowntime ??? cyclobenzaprine (FLEXERIL) 10 mg tablet Take 10 mg by mouth 2 (two) times a day Unknown at Unknown time ??? dicyclomine (BENTYL) 10 mg capsule Take 10 mg by mouth 3 (three) times a day Unknown at Unknowntime ??? docusate sodium (COLACE) 100 mg capsule Take 100 mg by mouth daily Unknown at Unknown time ??? ergocalciferol (VITAMIN D) 50,000 unit capsule Take 50,000 Units by mouth once a week SATURDAY Unknown at Unknown time ??? fluticasone propionate (FLONASE) 50 mcg/actuation nasal spray Administer 2 sprays into each nostril daily Unknown at Unknown time ??? folic acid (FOLVITE) 1 mg tablet Take 1 mg by mouth daily with dinner Unknown at Unknown time ??? OLANZapine (ZyPREXA ZYDIS) 10 mg disintegrating tablet Take 1 tablet (10 mg total) by mouth nightly 30 tablet 0 Unknown at Unknown time ??? OLANZapine (ZyPREXA ZYDIS) 5 mg disintegrating tablet Take 1 tablet (5 mg total) by mouth daily30 tablet 0 Unknown at Unknown time ??? ondansetron ODT (ZOFRAN-ODT) 4 mg disintegrating tablet Take 1 tablet (4 mg total) by mouth every 6 (six) hours as needed for nausea or vomiting 20 tablet 0 Unknown at Unknown time ??? pantoprazole DR (PROTONIX) 40 mg EC tablet Take 40 mg by mouth every morning Unknown at Unknowntime ??? polyethylene glycol (MIRALAX) 17 gram packet Take 17 g by mouth daily with lunch Unknown at Unknown time Scheduled Meds:aspirin, 81 mg, oral, Every other day atorvastatin, 20 mg, oral, Nightly cefepime, 1,000 mg, intravenous, Q24H cyanocobalamin, 1,000 mcg, oral, Daily cyclobenzaprine, 10 mg, oral, BID dicyclomine, 10 mg, oral, TID docusate sodium, 100 mg, oral, Daily fluticasone propionate, 2 spray, each nostril, Daily folic acid, 1 mg, oral, Daily with dinner levETIRAcetam, 250 mg, oral, BID OLANZapine, 10 mg, oral, Nightly OLANZapine, 5 mg, oral, Daily pantoprazole, 40 mg, intravenous, Daily pantoprazole DR, 40 mg, oral, QAM prazosin, 1 mg, oral, Nightly sodium chloride 0.9%, 0.5-20 mL, intra-catheter, Q8H ELIU vancomycin, 750 mg, intravenous, Q24H Continuous Infusions:sodium chloride 0.9%, 100 mL/hr, Last Rate: 100 mL/hr (02/08/21 2410) PRN Meds:.??? acetaminophen OR acetaminophen OR acetaminophen ??? OLANZapine ??? ondansetron ODT OR ondansetron ??? prochlorperazine ??? sodium chloride 0.9% Allergies Allergen Reactions ??? Codeine Hives ??? Duloxetine Mental status changes Reaction: CONFUSION, ??? Gabapentin Mental status changes ??? Paxil [Paroxetine] Mental status changes ??? Wellbutrin [Bupropion] Mental status changes ??? Zoloft [Sertraline] Mental status changes Social History Occupational History ??? Not on file Tobacco Use ??? Smoking status: Former Smoker Packs/day: 2.00 Years: 12.00 Pack years: 24.00 Types: E-cigarettes, Cigarettes Start date: 1981 Quit date: 03/19/2008 Years since quittin.9 ??? Smokeless tobacco: Never Used Vaping Use ??? Vaping Use: Former ??? Quit date: 12/11/2019 ??? Substances: Nicotine ??? Devices: Refillable tank Substance and Sexual Activity ??? Alcohol use: Yes Comment: rarely ??? Drug use: Yes Frequency: 7.0 times per week Types: Marijuana Comment: medical for pain and anxiety ??? Sexual activity: Defer Family History Problem Relation Age of Onset [...] ??? Anesthesia problems Neg Hx Review of Systems Constitutional: Positive for malaise/fatigue. Negative for chills and fever. HENT: Negative for sinus pain and sore throat. Respiratory: Positive for cough and shortness of breath. Negative for hemoptysis, sputum production, wheezing and stridor. Cardiovascular: Negative for chest pain. Gastrointestinal: Positive for nausea and vomiting. Neurological: Negative for speech change, focal weakness and weakness. Psychiatric/Behavioral: Positive for depression and suicidal ideas. Above review of system reviewed on 02/09/2021 Vitals: Vitals: 02/08/21 2207 02/09/21 0119 02/09/21 0532 02/09/21 0837 BP: 98/66 96/68 93/62 (!) 86/63 BP Location: Right arm Left arm Right arm Right arm Patient Position: Lying;HOB 30 degrees Lying;HOB 30 degrees Lying;HOB 30 degrees Pulse: 98 101 106 106 Resp: 22 22 22 20 Temp: 36.5 ??C (97.7 ??F) 36.8 ??C (98.2 ??F) 36.7 ??C (98 ??F) 36.8 ??C (98.2 ??F) TempSrc: Oral Temporal Temporal Oral SpO2: 92% 95% 95% 94% Weight: 52.8 kg (116 lb 4.8 oz) Height: Temp (24hrs), Av.7 ??C (98 ??F), Min:36.1 ??C (97 ??F), Max:37.1 ??C (98.8 ??F) Oxygen Therapy SpO2: 94 % O2 Therapy: Supplemental oxygen O2 Del Method: Nasal cannula O2 Flow Rate (L/min): 3 L/min . Intake/Output Summary (Last 24 hours) at 02/09/2021 0957 Last data filed at 02/09/2021 0134 Gross per 24 hour Intake 1600 ml Output 350 ml Net 1250 ml Physical Exam Vitals and nursing note reviewed. Constitutional: Appearance: Normal appearance. She is normal weight. She is not ill-appearing or toxic-appearing. HENT: Head: Normocephalic and atraumatic. Eyes: General: Scleral icterus present. Conjunctiva/sclera: Conjunctivae normal. Cardiovascular: Rate and Rhythm: Normal rate and regular rhythm. Pulmonary: Effort: No respiratory distress. Breath sounds: No rhonchi or rales. Abdominal: General: Abdomen is flat. Palpations: Abdomen is soft. Musculoskeletal: Right lower leg: No edema. Left lower leg: No edema. Neurological: General: No focal deficit present. Mental Status: She is alert. Lab/Radiology/Diagnostic Review: Labs: Recent Labs Lab Units 02/09/21 0041 02/08/21 1830 WBC K/cumm 10.7* 7.6 HEMOGLOBIN g/dL 9.4* 10.6* HEMATOCRIT % 28.2* 32.0* PLATELETS K/cumm 230 296 NEUTROS PCT % -- 79.8 LYMPHS PCT % -- 7.8 MONOS PCT % -- 10.1 EOS PCT % -- 0.7 Recent Labs Lab Units 02/09/21 0041 02/08/21 1830 SODIUM mmol/L 132* 131* POTASSIUM PLASMA mmol/L 2.9* 3.0* CHLORIDE mmol/L 88* 82* CO2 mmol/L 30 32 ANIONGAP mmol/L 14 17* GLUCOSE mg/dL 86 89 BUN SERUM mg/dL 33* 30* CREATININE mg/dL 1.90* 2.10* CALCIUM mg/dL 8.9 9.9 ALBUMIN g/dL -- 3.4* ALK PHOS Units/L -- 94 ALT Units/L -- 21 AST Units/L -- 41 BILIRUBIN TOTAL mg/dL -- 0.2 Imaging: Other diagnostic tests: I have personally reviewed above laboratory findings, chest imaging, and diagnostic tests. 02/09/2021 Assessment and Plan: [id number] pneumonia Acute renal insufficiency Depression anxiety Continuation of cefepime and vancomycin for now. Follow-up MRSA. If MRSA negative can stop vancomycin Follow-up chest x-ray Follow-up chest x-ray for 02/10/2021 IVF and renal per primary care * Sharad Mcdonnell MD - 02/09/2021 9:52 AM CDT Daily Progress Subjective Patient's blood pressure is remains soft. No new complaints at this time. Objective Vitals: Most Recent : Vitals: 02/09/21 0837 BP: (!) 86/63 Pulse: 106 Resp: 20 Temp: 36.8 ??C (98.2 ??F) SpO2: 94% I/O last 2 completed shifts: In: 1600 [IV Piggyback:1600] Out: 350 [Emesis/NG output:350] Physical Exam: Physical Exam Constitutional: AAOx3, NAD, cooperative Heart: RRR no M/R/G Lungs: CTA B/L, normal work of breathing Abdomen: s, NT, ND, +bowel sounds, no organomegaly Ext: No LE edema, good distal pulses Neuro: Oriented X3, No cranial or peripheral nerve deficits Psych: normal mood and affect Lab Review: I personally reviewed these images. Recent laboratory data was reviewed. Medications and allergies were reviewed. Imaging: NM Pulmonary Ventilation and Perfusion Imaging Result Date: 02/09/2021 1. Very low probability for pulmonary embolism. 2. The patient refused to wear the mask for the entire ventilation portion of the exam. 3. Decreased ventilation at the right lung initially, likely related to the patient's presumed pneumonia. Abnormal washout of xenon from the right lung and left lung base. Electronically signed by: Reena Carranza M.D. XR Chest 1 Vw portable Result Date: 02/09/2021 Diffuse right lung opacity concerning for pneumonia Electronically signed by: Lolly Redding M.D. Diagnostics: No results found for this or any previous visit. Assessment/Plan Healthcare associated pneumonia Elevated D-dimer Hypokalemia Hyponatremia Metabolic acidosis Acute kidney injury Lactic acidosis Hypotension Suicidal and homicidal ideation Severe Protein calorie malnutrition Depression Anxiety Polysubstance abuse - continue broad-spectrum antibiotics - replace potassium and monitor - continue IV fluids - monitor sodium - monitor renal function and electrolytes - VQ low prob for PE Discharge Planning: Patient will need another night of inpatient care for the above medical issues reviewed and discussed with team and reviewed and protocol in place * Alfonzo Trotter [facility] - 02/09/2021 5:09 AM CDT [facility] Pharmacy Services Pharmacokinetic Consult - Vancomycin Dosing Madison Weinberg is a 55 y.o. female who has been consulted for vancomycin dosing for Sepsis. Relevant clinical data and objective history reviewed: Recent Labs Lab Units 02/09/21 0041 02/08/21 1830 CREATININE mg/dL 1.90* 2.10* BUN SERUM mg/dL 33* 30* WBC K/cumm 10.7* 7.6 Temp Readings from Last 1 Encounters: 02/09/21 36.8 ??C (98.2 ??F) (Temporal) Wt Readings from Last 1 Encounters: 02/08/21 45 kg (99 lb 3.3 oz) Estimated Creatinine Clearance: 23.8 mL/min (A) (by C-G formula based on SCr of 1.9 mg/dL (H)). Assessment/Plan Will initiate Vancomycin 750 mg IV every 24 hours. Plan for a trough level prior to 3rd dose. Due to indication, will target a trough level of 15-20 mcg/ml. Pharmacy will continue to follow the patient???s culture results and clinical progress daily. Alfonzo Trotter RPh, 02/09/21 5:09 AM documented in this encounter H&P Notes * Fabio Timmons NP - 02/08/2021 9:20 PM CDT Hospitalist Admission H&P Admit date: 02/08/2021 6:05 PM Chief Complaint Patient presents with ??? Hypotension History of Present Illness Madison Weinberg is an 55 y.o. y/o female who is a patient of Lazarus Albert MD history of trigeminal neuralgia, hyperlipidemia, history of DVT in 2019, anxiety, depression, malnutrition, PTSD, chronic abdominal pain due to history of endometriosis due to an infected mash, chronic low back pain, history of opioid abuse, and history of benzodiazepine abuse, who presents to emergency room with a cough and not feeling well. Patient is status post recent admission to [facility] for acute on chronic abdominal pain secondary to constipation. With hospitalization she was noted to be suicidal per her therefore sent to [facility] for treatment. Patient was recently admitted to [facility] for suicidal and homicidal ideations. She reportedly pulled a gun on her and pulled the trigger, however the had removed the bullets. Since admission to [place], the patient reports she has been coughing, had a decrease in her appetite, and intermittent shortness of breath. She was sent to [facility] Emergency Room for further evaluation Laboratory data revealed a sodium 131, potassium 3.0, chloride 82, anion gap 17, BUN 30, creatinine2.10, albumin 3.4, troponin 32, 2nd troponin 29, lactate 3.6, hemoglobin 10.6, hematocrit 32.0, D-dimer 1,133 otherwise unremarkable. Underwent a chest x-ray that showed right sided near complete opacities. Patient admitted for further management Past Medical History: Diagnosis Date ??? Anemia ??? Anxiety disorder ??? Colon obstruction (CMS/HCC) ??? DVT (deep venous thrombosis) ([facility]/HCC) 11/2018 ??? Endometriosis Endometriosis-21 times ??? Hyperlipidemia [...] ??? Anesthesia problems Neg Hx Social History Socioeconomic History ??? Marital status: Spouse name: None ??? Number of children: None ??? Years of education: None ??? Highest education level: None Occupational History ??? None Tobacco Use ??? Smoking status: Former Smoker Packs/day: 2.00 Years: 12.00 Pack years: 24.00 Types: E-cigarettes, Cigarettes Start date: 1981 Quit date: 03/19/2008 Years since quittin.9 ??? Smokeless tobacco: Never Used Vaping Use [...] Gatherings with Friends and Family: ??? Attends [employer] Services: ??? Active Member of Clubs or Organizations: ??? Attends Club or Organization Meetings: ??? Marital Status: Intimate Partner Violence: ??? Fear of Current or Ex-Partner: ??? Emotionally Abused: ??? Physically Abused: ??? Sexually Abused: Allergies Allergen Reactions ??? Codeine Hives ??? Duloxetine Mental status changes Reaction: CONFUSION, ??? Gabapentin Mental status changes ??? Paxil [Paroxetine] Mental status changes ??? Wellbutrin [Bupropion] Mental status changes ??? Zoloft [Sertraline] Mental status changes Current Facility-Administered Medications Medication Dose Route Frequency Provider Last Rate Last Admin ??? vancomycin (VANCOCIN) 1,000 mg solution - ADS Override Pull ??? vancomycin (VANCOCIN) 750 mg in sodium chloride 0.9% 250 mL IVPB 750 mg intravenous Once Doug Weaver, DO Current Outpatient Medications Medication Sig Dispense Refill ??? alendronate (FOSAMAX) 70 mg tablet Take [...] every other day. Indications: prevention of thrombosis) ??? atorvastatin (LIPITOR) 20 mg tablet ??? calcium carbonate-vitamin D3 (CALTRATE 600 + D) 1500 mg (600 mg elemental) - 400 units per tablet TAKE 1 TABLET BY MOUTH TWICE A DAY DIRECTED ??? clonazePAM (KlonoPIN) 1 mg tablet Take 1 mg by mouth 2 (two) times a day ??? clotrimazole-betamethasone (LOTRISONE) cream Apply topically daily [...] 100 mg by mouth daily with lunch ??? ergocalciferol (VITAMIN D) 50,000 unit capsule Take 50,000 Units by mouth once a week SATURDAY ??? fluticasone propionate (FLONASE) 50 mcg/actuation nasal spray fluticasone propionate 50 mcg/actuation nasal spray,suspension SPRAY 2 SPRAYS IN EACH NOSTRIL ONCE DAILY ??? folic acid (FOLVITE) 1 mg tablet Take 1 mg by mouth daily with dinner ??? levocetirizine (XYZAL) 5 mg tablet Take 5 mg by mouth daily with lunch ??? losartan (COZAAR) 25 mg tablet Take 1 tablet (25 mg total) by mouth daily 30 tablet 3 ??? OLANZapine (ZyPREXA ZYDIS) 10 mg disintegrating tablet Take 1 tablet (10 mg total) by mouth nightly 30 tablet 0 ??? OLANZapine (ZyPREXA ZYDIS) 5 mg disintegrating tablet Take 1 tablet (5 mg total) by mouth daily30 tablet 0 ??? ondansetron ODT (ZOFRAN-ODT) 4 mg disintegrating tablet Take 1 tablet (4 mg total) by mouth every 6 (six) hours as needed for nausea or vomiting 20 tablet 0 ??? pantoprazole DR (PROTONIX) 40 mg EC tablet Take 40 mg by mouth every morning ??? polyethylene glycol (MIRALAX) 17 gram packet Take 17 g by mouth daily with lunch ??? prochlorperazine (Compazine) 10 mg tablet Take 10 mg by mouth every 6 (six) hours as needed fornausea or vomiting. Indications: nausea and vomiting ??? tamsulosin (FLOMAX) 0.4 mg extended release capsule tamsulosin 0.4 mg capsule TAKE 1 CAPSULE BY MOUTH EVERY DAY ??? traMADoL (ULTRAM) 50 mg tablet Review of Systems - reports cough, shortness of breath, decrease in appetite. Denies lightheaded, dizziness, Headaches, blurred vision, sore throat, hearing impairment. SOB, Chest Pain, or tachycardia. Denies Nausea/Vomiting, constipation or diarrhea. Denies joint or muscle pain. Denies LE swelling. Denies skin lesions. Denies depression or suicidal ideation. 12 systems were reviewed, all other were negative. Physical Exam Vitals: 02/08/21 2100 BP: (!) 87/63 Pulse: 98 Resp: (!) 32 Temp: SpO2: 95% General: Frail like, cachetic female who is otherwise, alert, cooperative, no distress, appears stated age HEENT: Head: normacephalic, Eyes:Perrla, EOMI, bilaterally, nasal and oral mucosal pink and moist Heart: normal rate, regular rhythm, normal S1, S2, no murmurs, rubs, clicks or gallops Lungs: overall diminished Abdomen: soft, nontender, nondistended, no masses or organomegaly Extremities: peripheral pulses normal, no pedal edema, no clubbing or cyanosis Neuro: alert, oriented x 3, no defects noted in general exam. . DATA Laboratory review: Chemistry CMP: Lab Results Component Value Date ALBUMIN 3.4 (L) 02/08/2021 BUNSER 30 (H) 02/08/2021 CALCIUM 9.9 02/08/2021 CO2 32 02/08/2021 CHLORIDE 82 (L) 02/08/2021 CREATININE 2.10 (H) 02/08/2021 GLUCOSE 89 02/08/2021 POTASSIUM 3.0 (L) 02/08/2021 SODIUM 131 (L) 02/08/2021 BILITOT 0.2 02/08/2021 PROT 5.9 (L) 02/08/2021 ALT 21 02/08/2021 AST 41 02/08/2021 ALKPHOS 94 02/08/2021 , CBC: Lab Results Component Value Date WBC 7.6 02/08/2021 RBC 3.59 (L) 02/08/2021 HGB 10.6 (L) 02/08/2021 HCT 32.0 (L) 02/08/2021 MCV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 currently infusing 1 unit of RBC. Sitter in place. Pt is anxious and restless, statesthat she cannot get comfortable, gave anxiety meds. Pt free of falls. Pt uses bedside commode. Restencouraged and achieved. Problem: Health Behavior: Goal: Understanding of discharge [...] feelings about self will improve Outcome: Progressing Problem: Lack of Knowledge: Goal: Ability to state ways to decrease the risk of falls will improve Outcome: Progressing Problem: Safety: Goal: Will remain free from falls Outcome: Progressing Goal: Will remain free from injury from falls Outcome: Progressing Goal: Will remain free from falls and injury in home environment Outcome: Progressing * Plan of Jorge A - Vaishali Garcia RN - 02/16/2021 3:51 PM CDT CM attended multi disciplinary rounds to discuss plan of care and needs at d/c. Pt to receive PICC line for blood transfusion, and K runs. CM will continue to monitor and assist w/ d/c disposition. * Plan of Care - Belinda Broussard LCSW - 02/16/2021 9:27 AM CDT SW contacted Alexandra G at [facility] and requested that an ASSISTANT DIRECTOR OF NURSING see pt again to evaluate current state, determine whether 1:1 sitter is still needed, and provide ongoing psych care while hospitalized. * Plan of Care - Mckayla Clark RN - 02/16/2021 6:21 AM CDT Goals: Clinical Goals for the Shift: VSS, BG checks, IV abx, IVF, safety Summary: Potassium low at 2.5, K run started. Hgb low at 6.5, staff attempted to get a blood draw for a type and cross. Pt stated she didn't want to be stuck anymore and her veins needed a break. SI/HI sitter, and NG tube cont. * Plan of Care - Telma Gonzalez RN - 02/14/2021 5:55 PM CDT Problem: Health Behavior: Goal: Understanding [...] Goals: Clinical Goals for the Shift: maintain comfort, safety- reports suicidal thoughts, IVF/ABX, monitorNG output Summary: Patient VSS, denies pain. Small bowel series complete. Denies suicidal and homicidal ideations. Sitter at bedside * Plan of Care - Vaishali Garcia RN - 02/14/2021 4:14 PM CDT CM attended multi disciplinary rounds to discuss plan of care and needs at d/c. Pt to return to [facility] once medically stable. CM will continue to monitor and assist w/ d/c disposition. 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 * Plan of Care - Kathie Goldman RN - 02/14/2021 5:45 AM CDT Problem: Health Behavior: Goal: Understanding [...] Goals: Clinical Goals for the Shift: VSS, monitor tele, SI sitter, NG tube management, safety, labs Summary: VSS, tele stable, pt currently on 3 L/min, SI sitter continued, pt called out appropriately, pt is hard stick and multiple staff members unable to get labs, will relay to day shift to reach out to Blanca Timmons with [facility] * Plan of Care - Jenny Neves RN - 02/12/2021 3:05 PM CDT Goals: Clinical Goals for the Shift: IVF/IVabx; pain control; NPO/NGtube; tele; SI sitter Summary: IVF/IVabx, keppra, iron given per MAR; pain controlled with IV toradol, NGtube to LISRebecaon okay to have a few ice chips; ST on tele; SI sitter remains in place; patient appropriate but refused blood draws; remains on 2lpm with oxygen at 93%; at bedside * Plan of Care - Ethel Sultana RN - 02/12/2021 5:40 AM CDT Goals: Clinical Goals for the Shift: VSS, safety, 1:1, NPO, NG, IVF/ABX Summary: Pt A&Ox4, rested some overnight, c/o pain and anxiety throughout the night admin PRN as ordered. IV fluids infusing. Suicide precautions continue, no unsafe behaviors noted. NG in place with 475mL out, thin green. ST on tele. Unable to collect all labs, pt refused further attempts. IV fluids infusing. Problem: Health Behavior: Goal: Understanding of discharge [...] care provider will improve Outcome: Progressing Problem: Self-Care: Goal: Ability to participate in self-care as condition permits will improve Outcome: Progressing * Plan of Care - Radha Dye RN - 02/11/2021 7:10 PM CDT Goals: Clinical Goals for the Shift: VSS, remain safe; 1:1, NPO c NG LIS, IVF/IV ABX Summary: Patient's VSS, remains on oxygen @ 6L/NC c humidified air. ID Consult today. IV ABX changed to Zosyn. Attempted several times for new blood cx x 2. NG output 850 ml on days. Thick brown output this am, but since has become watery bile colored. + b.s. and no c/o n/v/abd pain. Mood stable, no suicidal ideation noted. * Plan of Care - Ansley Vieira RN - 02/11/2021 4:36 AM CDT Problem: Health Behavior: Goal: Understanding of discharge needs will improve Outcome: Progressing Goals: Clinical Goals for the Shift: Safety-1:1 sitter, Monitor V.S. lab Values. Summary: Pt. Resting off and on throughout the night. Anxious at times. Sitter at bedside due to SIand HI. UP to restroom with assist times one. Accident free. Remains NPO. NG tube in place. * Plan of Care - Belinda Broussard LCSW - 02/10/2021 3:39 PM CDT ERMA spoke again with supervisor of officials who was informed by Valeria at [facility] that their psychiatric specialist, Wendi, will be here later today to assess pt. SW relayed this info to KAT Alvarado. SW will continue to follow and assist as needed. * Plan of Care - Jenny Chase RN - 02/10/2021 2:08 PM CDT Problem: Health Behavior: Goal: Understanding of discharge needs will improve Outcome: Progressing Goals: Clinical Goals for the Shift: 1:1 sitter, awaiting pysch, NPO-monitor NG output, control anxiety Summary: awaiting pysch. 1:1 sitter. Npo-NG in place. * Plan of Care - Belinda Broussard LCSW - 02/10/2021 12:15 PM CDT ERMA contacted Alexandra Madrid at [facility] this morning at 8:28 a.m., and she confirmed that thepsych consult was received. ERMA then contacted Ethel Little, psychiatric specialist, at 11:40 a.m. to see when she may arrive to assess pt, however Ms Little informed ERMA that she is not oncologist today, and isunable to do the assessment. ERMA made pt's RNJenny, aware, and then spoke with SW supervisor of officials to request assist with getting someone else from [facility] psych to see pt today to assess and determine whether pt still requires 1:1 sitter, and whether her return to [facility] will be mandatory when she's medically ready for d/c from [facility]. * Plan of Care - Yeimi Greenfield RN - 02/10/2021 6:20 AM CDT Goals: Clinical Goals for the Shift: 1:1 sitter. IVAB, SOB, NG tube output Summary: Pt VSS. Pt IV abx continued. Pt IVF infusing. Pt NG output has slowed down since dayshi,but still a good amount out. 1:1 sitter continued. Pt BG came back at 65 with morning labs. ASSISTANT DIRECTOR OF NURSING notified. Gave bolus of D10 250mL as well as started on LR with D5 at 100mL. Pt BG came back at 184 after 15 minutes of rechecking. Pt resting throughout the night. Problem: Health Behavior: Goal: Understanding of discharge needs will improve Outcome: Progressing Problem: Activity: Goal: Risk for activity intolerance will decrease Outcome: Progressing Problem: Lack of Knowledge: Goal: Knowledge of diagnostic tests will improve Outcome: Progressing Problem: Lack of Knowledge: Goal: Knowledge of diagnostic tests will improve Outcome: Progressing Goal: Knowledge of disease or condition will improve Outcome: Progressing Goal: Knowledge of safety precautions will improve Outcome: Progressing Goal: Knowledge of the prescribed therapeutic regimen will improve Outcome: Progressing Problem: Physical Regulation: Goal: Ability to maintain clinical measurements within normal limits will improve Outcome: Progressing Problem: Health Behavior: Goal: Ability to state signs and symptoms to report to health care provider will improve Outcome: Progressing Problem: Infection Risk: [...] Progressing * Plan of Care - Jenny Chase RN - 02/09/2021 5:41 PM CDT Goals: Clinical Goals for the Shift: safety 1:1, ivab, monitor for SOB/oxygen status Summary: sitter at beside. Ivab. NG placed for SBO. Increase need for oxygen- MD's aware. EncouragedIS and TCDB. Midline placed. Replaced k+, monitoring tele. * Plan of Care - Vaishali Garcia RN - 02/09/2021 4:08 PM CDT CM continue to monitor for psych assessment and note to verify if pt is still needing 1:1 for SI, if pt can transfer to inpt psych. CM has not rec'd recommendation from psych. CM will continue to monitor. * Plan of Care - Vaishali Garcia RN - 02/09/2021 1:18 PM CDT CM Initial Assessment Interview Note Information Obtained From: Patient (02/09/21 1316) Admission Source: ED Impression: Acute Hypoxemic sepsis, HAP, FIT Plan Includes: D/C to [facility] In[facility] Primary Source of Transportation: ambulance or Health Insurance Coverage: [employer] Prescription Coverage: [employer] Pharmacy: [facility]/[place] Primary Care Provider: Lazarus Albert MD Prior to Admission: Primary Caregiver: Self Support System: Spouse/Significant Other Support system contact info (name, phone, availablity): Quentin Weinberg [phone] Home Care Services: No Durable Medical Equipment: Home Modification Assessment (railes in bathroom), Walker (wheeled) Living Arrangements: Spouse/significant other Type of Residence: Private residence Medication management: Needs Assistance (Comment) (02/09/211315) Potential discharge needs include: Community Resources: Disability (SSDI), Mental health (02/09/211315) Dialysis: Behavioral Health Services: Behavioral Health Services Agency: [facility] (02/09/211315) Patient expects to be Discharged to: Psychiatric facility, (02/09/211315) Additional Information: CM introduced self and services to pt and . 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 Pt verbalized sharing chores w/ around house. Pt verbalized independent w/ adl's. Pt verbalized agreement w/ plan of care to d/c to [facility] at d/c. Pt verbalized aware CM is available. Patient's Identified Problem/Goal Problem: Ensure acute medical [...] Collaboration with patient, MD, direct care nurse, Automatic Gluing Machine Operator, Nurse Coordinator and other members of the health care team to assure needed interventions completed. 2. Return patient to optimal level of self-care post discharge. 3. Hammerer Helper will follow for Discharge Planning - interventions as needed 4. Anticipated level of care at discharge 5. Planned Discharge Disposition Based on a comprehensive family assessment, assistance with instrumental activities of daily livingafter discharge will be provided by Madison. Through the course of our work I determined that the Madison possesses the skill and ability to provide and monitor the care of the patient when she returns home. Madison has the capacity to provide/monitor/arrange for the care of the patient. Finally, we determined that Madison has the knowledge of available resources and that combining them with their existing resources will suffice to sustain andcare for the patient when he or she returns home. The treatment team is aware of this information. All are in agreement with the aftercare plan. Vaishali Garcia RN * Provider Query - Sharad Mcdonnell MD - 02/09/2021 12:17 PM CDT Please specify the etiology of the patient???s symptoms. ___ Sepsis ___ Severe Sepsis ___ Localized infection such as UTI, pneumonia, etc WITHOUT systemic manifestations ___ Other, specify below ___ Clinically unable to determine Additional Provider Response: Pt had PNA without systemic manifestations Clinical Indicators/Treatments: 55 year old female presents from [facility] with hypotension. ED Provider mentions patient is ill-appearing. ED DX: Sepsis, due to unspecified organism, unspecified whether acute organ dysfunction present, acute hypoxemic respiratory failure H&P: Suspect healthcare associated pneumonia, JHOANA 02/08 WBC 7.6, Lactate 3.6, Creatinine 2.10 Vitals: T 97.0, HR 102, RR 17-32, BP 82/68-96/51, O2 sat 92% on 4L NC Treatment: 1500 ml NS IV bolus, then 100 ml/hr, IV Cefepime and Vancomycin, oxygen, continuous monitoring. Adult SIRS/Sepsis Screening Criteria SIRS Temp >38.3 C (100.9 F) or <36 (96.8 F) HR (pulse) >90 Respiratory rate >20 WBC > 12,000 or <4,000 or >10% bands Sepsis 2 of 4 SIRS criteria present AND suspected/confirmed source of infection Severe Sepsis Sepsis plus at least one sign of NEW hypoperfusion or organ dysfunction not limited to but may include: Lactate >2 mmol/L INR > 1.5 or aPTT >60 seconds Platelet count <100,000 ?L?1 Bilirubin >2 mg/dL Creatinine >2 mg/dL (if no documentation of renal failure) Urine output <0.5 mL/kg/hr x 2 hours Acute respiratory failure with new need for mechanical ventilation or noninvasive ventilation Altered mental status or Encephalopathy (new or acutely worsened due to infection) One or more reading(s) of hypotension prior to 30ml/kg fluid bolus (SBP< 90 mmHG or MAP< 65, or SBP decrease of > 40 mmHG from baseline) Septic Shock Severe sepsis patients with: Two or more readings of hypotension (SBP <90 or MAP< 65) after 30ml/kg fluid bolus, often requiring vasopressors or Lactate >=4 Use of terms such as likely, suspected, possible, or probable (associated with a specific diagnosisthat is being evaluated, monitored, or treated as if it exists) are acceptable and can be coded in the inpatient setting when documented at the time of discharge. This documentation will become part of the patient???s medical record. Sincerely, Olga Farrell RN Clinical Tie Presser [phone] * Provider Query - Sharad Mcdonnell MD - 02/09/2021 12:06 PM CDT Based on the clinical indicators and antibiotic choice, please specify the most likely type of pneumonia(s) being treated. Document in the medical record and on the form below. NOTE: CAP and HCAP do not indicate the type of pneumonia being treated Select all conditions being treated: ____Gram negative pneumonia ____Gram positive pneumonia ____Staph pneumonia ____Strep pneumonia ____Bacterial pneumonia, unspecified ____Bacterial pneumonia superimposed on a viral pneumonia, specify organism if known ____Viral pneumonia ____Other, specify below ____Clinically unable to determine Additional Provider Response: Pt has Bacterial pneumonia, unspecified Clinical Indicators/Treatments: 55 year old female presents from [facility] with hypotension. ED DX: Hospital acquired pneumonia H&P: Suspected healthcare associated pneumonia Pulmonology Consult: Qpebvakm-cdcb-jzragivl pneumonia Blood CX x 2: No growth to date MRSA PCR, legionella, strep pneumoniae pending Treatment: IV Cefepime and Vancomycin Use of terms such as likely, suspected, possible, or probable (associated with a specific diagnosisthat is being evaluated, monitored, or treated as if it exists) are acceptable and can be coded in the inpatient setting when documented at the time of discharge. This documentation will become part of the patient???s medical record. Sincerely, Olga Farrell RN Clinical Tie Presser [phone] * Plan of Care - Marina Garcia RN - 02/09/2021 6:41 AM CDT Goals: Clinical Goals for the Shift: safety, labs, iv abx, Summary: process safety engineer remains, labs drawn, started on IV fluids, potassium run received. No current SI. Placed in teal scrubs and elopement band on documented in this encounter Plan of Treatment Scheduled Orders Name Type Priority Associated Diagnoses Order Schedule Urinalysis reflex to microscopic and culture Urine Microbiology STAT STAT for 1 Occurrences starting 02/08/2021 until 02/08/2021 Cytology Pathology and Cytology Routine Once for 1 Occurrences starting 02/13/2021 until 02/13/2021 documented as of this encounter Procedures Procedure Name Priority Date/Time Associated Diagnosis Comments HOME O2 EVAL (DESATURATION SCREEN) Routine 02/20/2021 2:22 PM CDT CBC WITHOUT DIFFERENTIAL Routine 02/20/2021 4:53 AM CDT EGFR Routine 02/20/2021 4:48 AM CDT MAGNESIUM Routine 02/20/2021 4:48 AM CDT BASIC METABOLIC PANEL Routine 02/20/2021 4:48 AM CDT POCT GLUCOSE DEVICE Routine 02/19/2021 3 :31 PM CDT POCT GLUCOSE DEVICE Routine 02/19/2021 1 1:22 AM CDT POCT GLUCOSE DEVICE Routine 02/19/2021 7 :38 AM CDT EGFR Routine 02/19/2021 2:36 AM CDT CBC WITHOUT DIFFERENTIAL Routine 02/19/2021 2:36 AM CDT MAGNESIUM Routine 02/19/2021 2:36 AM CDT BASIC METABOLIC PANEL Routine 02/19/2021 2:36 AM CDT POCT GLUCOSE DEVICE Routine 02/18/2021 1 1:23 PM CDT POCT GLUCOSE DEVICE Routine 02/18/2021 8 :42 PM CDT POCT GLUCOSE DEVICE Routine 02/18/2021 1 2:50 PM CDT POCT GLUCOSE DEVICE Routine 02/18/2021 9 :26 AM CDT EGFR Routine 02/18/2021 3:55 AM CDT CBC WITHOUT DIFFERENTIAL Routine 02/18/2021 3:55 AM CDT MAGNESIUM Routine 02/18/2021 3:55 AM CDT BASIC METABOLIC PANEL Routine 02/18/2021 3:55 AM CDT POCT GLUCOSE DEVICE Routine 02/17/2021 8 :55 PM CDT POCT GLUCOSE DEVICE Routine 02/17/2021 3 :53 PM CDT POCT GLUCOSE DEVICE Routine 02/17/2021 1 1:56 AM CDT XR CHEST PA LATERAL 2 VIEWS IP Routine 02/17/2021 10:13 AM CDT XR ABDOMEN ERECT AND OR DECUBITS 2 VIEWS IP Routine 02/17/2021 10:05 AM CDT POCT GLUCOSE DEVICE Routine 02/17/2021 7 :40 AM CDT PREPARE RBC Routine 02/17/2021 4:26 AM CDT EGFR Routine 02/17/2021 3:40 AM CDT DIFFERENTIAL AUTO Routine 02/17/2021 3:4 0 AM CDT CBC WITH AUTO DIFFERENTIAL Routine 02/17/2021 3:40 AM CDT MAGNESIUM Routine 02/17/2021 3:40 AM CDT BASIC METABOLIC PANEL Routine 02/17/2021 3:40 AM CDT POCT GLUCOSE DEVICE Routine 02/16/2021 8 :50 PM CDT POCT GLUCOSE DEVICE Routine 02/16/2021 5 :56 PM CDT ABO/RH Timed 02/16/2021 4:27 PM CDT CROSSMATCH Timed 02/16/2021 4:27 PM CDT ANTIBODY SCREEN Timed 02/16/2021 4:27 PM CDT TYPE AND SCREEN Timed 02/16/2021 4:27 PM CDT EGFR Routine 02/16/2021 4:05 PM CDT DIFFERENTIAL AUTO Routine 02/16/2021 4:0 5 PM CDT CBC WITH AUTO DIFFERENTIAL Routine 02/16/2021 4:05 PM CDT BASIC METABOLIC PANEL Routine 02/16/2021 4:05 PM CDT INSERT PICC LINE Routine 02/16/2021 2:33 PM CDT POCT GLUCOSE DEVICE Routine 02/16/2021 9 :14 AM CDT EGFR Routine 02/16/2021 3:27 AM CDT B ABO / RH CONFIRMATION TESTING STAT 02/16/2021 3:27 AM CDT CBC WITHOUT DIFFERENTIAL Routine 02/16/2021 3:27 AM CDT MAGNESIUM Routine 02/16/2021 3:27 AM CDT BASIC METABOLIC PANEL Routine 02/16/2021 3:27 AM CDT POCT GLUCOSE DEVICE Routine 02/15/2021 8 :34 PM CDT POCT GLUCOSE DEVICE Routine 02/15/2021 5 :28 PM CDT GUAIAC OCCULT BLOOD, FECAL, NOT FOR NEOPLASM SCREENING Routine 02/14/2021 5:57 PM CDT POCT GLUCOSE DEVICE Routine 02/14/2021 4 :59 PM CDT FL SMALL BOWEL SERIES IP Routine 02/14/2021 3:50 PM CDT CBC WITHOUT DIFFERENTIAL Routine 02/14/2021 3:29 PM CDT POCT GLUCOSE DEVICE Routine 02/14/2021 1 :09 PM CDT XR CHEST 1 VIEW IP Routine 02/14/2021 12:02 PM CDT CYTOLOGY Routine 02/14/2021 11:50 AM CDT Acute hypoxemic respiratory failure (CMS/HCC) Sepsis, due to unspecified organism, unspecified whether acute organ dysfunction present (CMS/HCC) Hospital-acquired pneumonia Failure to thrive (0-17) US GUIDED THORACENTESIS IP Routine 02/14/2021 11:48 AM CDT CELL DIFFERENTIAL, BODY FLUID Routine 02/14/2021 10:54 AM CDT CELL COUNT W/REFLEX DIFFERENTIAL, BODY FLUID Routine 02/14/2021 10:54 AM CDT MYCOLOGY (FUNGAL) CULTURE Routine 02/14/2021 10:54 AM CDT AEROBIC AND ANAEROBIC CULTURE AND GRAM STAIN Routine 02/14/2021 10:54 AM CDT LACTATE DEHYDROGENASE, BODY FLUID Routine 02/14/2021 10:54 AM CDT GLUCOSE, BODY FLUID Routine 02/14/2021 1 0:54 AM CDT PH, PLEURAL FLUID Routine 02/14/2021 10: 54 AM CDT EGFR Routine 02/14/2021 10:01 AM CDT APTT Routine 02/14/2021 10:01 AM CDT MAGNESIUM Routine 02/14/2021 10:01 AM CDT BASIC METABOLIC PANEL Routine 02/14/2021 10:01 AM CDT POCT GLUCOSE DEVICE Routine 02/14/2021 8 :38 AM CDT POCT GLUCOSE DEVICE Routine 02/13/2021 1 0:45 PM CDT POCT GLUCOSE DEVICE Routine 02/13/2021 1 2:15 PM CDT POCT GLUCOSE DEVICE Routine 02/13/2021 8 :33 AM CDT EGFR Routine 02/13/2021 6:27 AM CDT CBC WITHOUT DIFFERENTIAL Routine 02/13/2021 6:27 AM CDT BASIC METABOLIC PANEL Routine 02/13/2021 6:27 AM CDT POCT GLUCOSE DEVICE Routine 02/12/2021 9 :[address] ABDOMEN PELVIS W CONTRAST IP Routine 02/12/2021 9:30 AM CDT EGFR Routine 02/12/2021 5:12 AM CDT BASIC METABOLIC PANEL Routine 02/12/2021 5:12 AM CDT POCT GLUCOSE DEVICE Routine 02/12/2021 1 2:24 AM CDT POCT GLUCOSE DEVICE Routine 02/11/2021 3 :52 PM CDT XR ABDOMEN ERECT AND OR DECUBITS 2 VIEWS IP Routine 02/11/2021 5:37 AM CDT EGFR Routine 02/11/2021 5:11 AM CDT IRON PROFILE W/ IBC Add-On 02/11/2021 5 :11 AM CDT CBC WITHOUT DIFFERENTIAL Routine 02/11/2021 5:11 AM CDT BASIC METABOLIC PANEL Routine 02/11/2021 5:11 AM CDT VANCOMYCIN LEVEL TROUGH Timed 02/10/2021 8:03 PM CDT POCT GLUCOSE DEVICE Routine 02/10/2021 5 :20 PM CDT POCT GLUCOSE DEVICE Routine 02/10/2021 1 2:35 PM CDT XR CHEST PA LATERAL 2 VIEWS IP Routine 02/10/2021 7:26 AM CDT POCT GLUCOSE DEVICE Routine 02/10/2021 5 :56 AM CDT POCT GLUCOSE DEVICE Routine 02/10/2021 4 :16 AM CDT POCT GLUCOSE DEVICE Routine 02/10/2021 3 :34 AM CDT EGFR Routine 02/10/2021 2:37 AM CDT CBC WITHOUT DIFFERENTIAL Routine 02/10/2021 2:37 AM CDT MAGNESIUM Routine 02/10/2021 2:37 AM CDT BASIC METABOLIC PANEL Routine 02/10/2021 2:37 AM CDT XR KUB ED Urgent/IP Urgent 02/09/2021 7:10 PM CDT STREP PNEUMONIAE AG, URINE Routine 02/09/2021 6:06 PM CDT DRUGS OF ABUSE SCREEN, URINE WITHOUT CONFIRMATION STAT 02/09/2021 6:06 PM CDT LEGIONELLA ANTIGEN, URINE Routine 02/09/2021 6:06 PM CDT XR ABDOMEN ERECT AND OR DECUBITS 2 VIEWS IP Routine 02/09/2021 3:53 PM CDT INSERT MIDLINE Routine 02/09/2021 3:07 PM CDT MRSA ONLY (STAPHYLOCOCCUS AUREUS) PCR Routine 02/09/2021 11:30 AM CDT NM PULMONARY VENTILATION AND PERFUSION IMAGING IP Routine 02/09/2021 8:22 AM CDT TROPONIN T HIGH-SENSITIVITY 6-HOUR Timed 02/09/2021 12:41 AM CDT SEPSIS LACTATE WITH REFLEX Timed 02/09/2021 12:41 AM CDT EGFR Routine 02/09/2021 12:41 AM CDT CBC WITHOUT DIFFERENTIAL Routine 02/09/2021 12:41 AM CDT BASIC METABOLIC PANEL Routine 02/09/2021 12:41 AM CDT PROCALCITONIN STAT 02/08/2021 10:29 PM CDT TROPONIN T HIGH-SENSITIVITY 4-HR Timed 02/08/2021 10:24 PM CDT SEPSIS LACTATE WITH REFLEX Timed 02/08/2021 9:25 PM CDT TROPONIN T HIGH-SENSITIVITY 2-HOUR Timed 02/08/2021 8:24 PM CDT ED CRITICAL CARE Routine 02/08/2021 7:10 PM CDT COVID-19 CORONAVIRUS RNA Routine 02/08/2021 6:39 PM CDT SEPSIS LACTATE WITH REFLEX STAT 02/08/2021 6:39 PM CDT BLOOD CULTURE STAT 02/08/2021 6:39 PM CDT BLOOD CULTURE STAT 02/08/2021 6:39 PM CDT APTT STAT 02/08/2021 6:39 PM CDT PROTIME-INR STAT 02/08/2021 6:39 PM CDT MAGNESIUM STAT 02/08/2021 6:39 PM CDT LIPASE STAT 02/08/2021 6:39 PM CDT ECG 12-LEAD STAT 02/08/2021 6:38 PM CDT D-DIMER, QUANTITATIVE Add-On 02/08/2021 6:37 PM CDT XR CHEST 1 VIEW ED Urgent/IP Urgent 02/08/2021 6:36 PM CDT TROPONIN T HIGH-SENSITIVITY SERIES (BASELINE, 2HR, 4HR, 6HR) STAT 02/08/2021 6:30 PM CDT EGFR STAT 02/08/2021 6:30 PM CDT DIFFERENTIAL AUTO STAT 02/08/2021 6:3 0 PM CDT CBC WITH AUTO DIFFERENTIAL STAT 02/08/2021 6:30 PM CDT COMPREHENSIVE METABOLIC PANEL STAT 02/08/2021 6:30 PM CDT documented in this encounter Results * (ABNORMAL) CBC without differential (02/20/2021 4:53 AM CDT) WBC 16.3(H) 3.8 - 9.9 K/cumm [facility] Hgb 9.9(L) 11.9 - 15.5 g/dL [facility] Hct 31.1(L) 35.6 - 45.5 % [facility] PW Plt 845(H) 150 - 400 K/cumm [facility] PW MPV 8.8(L) 9.1 - 12.3 fL [facility] PW RBC 3.37(L) 3.90 - 5.20 M/cumm [facility] PW MCV 92.3 81.3 - 96.4 fL [facility] PW MCH 29.4 27.1 - 33.3 pg [facility] PW MCHC 31.8(L) 32.3 - 35.7 g/dL [facility] RDW CV 15.1(H) 11.1 - 14.9 % [facility] RDW SD 49.4(H) 35.7 - 48.1 fL [facility] Blood specimen (specimen) 02/20/2021 4:53 AM CDT 02/20/2021 4:55 AM CDT us Fabio Timmons ASSISTANT DIRECTOR OF NURSING LAB BLOOD ORDERABLES Final Re sult [facility] [address] [facility] Department [place] [address] * eGFR (02/20/2021 4:48 AM CDT) eGFR 109 mL/min/1.7 3 m2 [facility] Comment: Interpretive Data Reference Interval Normal [...] was last reviewed 2020 Blood specimen (specimen) 02/20/2021 4:48 AM CDT 02/20/2021 4:55 AM CDT us Fabio Timmons NP LAB BLOOD ORDERABLES Final Re sult Performing Organization Address [facility] de Phone Number [address] Department [place] [address] * Magnesium (02/20/2021 4:48 AM CDT) Magnesium 1.6 1.4 - 2.5 mg/dL [facility] Blood specimen (specimen) 02/20/2021 4:48 AM CDT 02/20/2021 4:55 AM CDT us Sharad Mcdonnell MD LAB BLOOD ORDERABLES Final R esult Performing Organization Address [facility] de Phone Number [facility] [address] [facility] Department [place] [address] * (ABNORMAL) Basic metabolic panel (02/20/2021 4:48 AM CDT) Sodium 138 135 - 145 mmol/L [facility] Potassium, pl 3.6 3.3 - 4.9 mmol/L [facility] Chloride 107 97 - 110 mmol/L [facility] PW CO2 22 22 - 32 mmol/L [facility] PW Anion gap 9 2 - 15 mmol/L [facility] PW BUN 3(L) 8 - 25 mg/dL [facility] Creatinine 0.50(L) 0.60 - 1.10 mg/dL [facility] Glucose 91 70 - 199 mg/dL [facility] Comment: Interpretive Data Fasting glucose >/= [...] interpretive data was last revised 2017. Calcium 7.9(L) 8.5 - 10.3 mg/dL [facility] Blood specimen (specimen) 02/20/2021 4:48 AM CDT 02/20/2021 4:55 AM CDT Fabio Timmons ASSISTANT DIRECTOR OF NURSING LAB BLOOD ORDERABLES Final Re sult [facility] [address] [facility] Department [place] [address] * (ABNORMAL) POCT glucose (02/19/2021 3:31 PM CDT) Glucose, POC 111(H) 70 - 110 mg/dL [facility] Blood specimen (specimen) 02/19/2021 3:31 PM CDT 02/19/2021 3:31 PM CDT Linda Harris MD LAB POCT ORDERABL ES - DEVICE Final Result Performing Organization Address [facility] de Phone Number [facility] [address] [place] [address] * (ABNORMAL) POCT glucose (02/19/2021 11:22 AM CDT) Glucose, POC 125(H) 70 - 110 mg/dL [facility] Blood specimen (specimen) 02/19/2021 11:22 AM CDT 02/19/2021 11:22 AM CDT Linda Harris MD LAB POCT ORDERABL ES - DEVICE Final Result Performing Organization Address [facility] de Phone Number [facility] [address] [facility] [place] [address] * POCT glucose (02/19/2021 7:38 AM CDT) Glucose, POC 100 70 - 110 mg/dL [facility] Blood specimen (specimen) 02/19/2021 7:38 AM CDT 02/19/2021 7:38 AM CDT Linda Harris MD LAB POCT ORDERABL ES - DEVICE Final Result Performing Organization Address [facility] de Phone Number [facility] [address] [place] [address] * eGFR (02/19/2021 2:36 AM CDT) eGFR 109 mL/min/1.7 3 m2 [facility] Comment: Interpretive Data Reference Interval Normal [...] was last reviewed 2020 Blood specimen (specimen) 02/19/2021 2:36 AM CDT 02/19/2021 2:38 AM CDT us Fabio Timmons ASSISTANT DIRECTOR OF NURSING LAB BLOOD ORDERABLES Final Re sult Performing Organization Address [facility] Co de Phone Number [address] Department [place] [employer] [address] * Magnesium (02/19/2021 2:36 AM CDT) Magnesium 1.7 1.4 - 2.5 mg/dL [facility] Blood specimen (specimen) 02/19/2021 2:36 AM CDT 02/19/2021 2:38 AM CDT us Sharad Mcdonnell MD LAB BLOOD ORDERABLES Final R esult Performing Organization Address [facility] Co de Phone Number [facility] 2 [facility] Department [place] [address] * (ABNORMAL) CBC without differential (02/19/2021 2:36 AM CDT) WBC 17.1(H) 3.8 - 9.9 K/cumm [facility] PW Hgb 8.5(L) 11.9 - 15.5 g/dL [facility] Hct 26.3(L) 35.6 - 45.5 % [facility] PW Plt 615(H) 150 - 400 K/cumm [facility] PW MPV 8.8(L) 9.1 - 12.3 fL [facility] PW RBC 2.90(L) 3.90 - 5.20 M/cumm [facility] PW MCV 90.7 81.3 - 96.4 fL [facility] PW MCH 29.3 27.1 - 33.3 pg [facility] PW MCHC 32.3 32.3 - 35.7 g/dL [facility] PW RDW CV 14.7 11.1 - 14.9 % [facility] RDW SD 47.4 35.7 - 48.1 fL [facility] Blood specimen (specimen) 02/19/2021 2:36 AM CDT 02/19/2021 2:38 AM CDT Narrative [facility] - 02/19/2021 2:40 AM CDT while on enoxaparin. us Fabio Timmons NP LAB BLOOD ORDERABLES Final Re sult [facility] [address] Department [place] [address] * (ABNORMAL) Basic metabolic panel (02/19/2021 2:36 AM CDT) Pathologist [facility] Sodium 139 135 - 145 mmol/L [facility] PW Potassium, pl 3.2(L) 3.3 - 4.9 mmol/L [facility] PW Chloride 108 97 - 110 mmol/L [facility] CO2 22 22 - 32 mmol/L [facility] PW Anion gap 9 2 - 15 mmol/L [facility] PW BUN 3(L) 8 - 25 mg/dL [facility] Creatinine 0.50(L) 0.60 - 1.10 mg/dL [facility] Glucose 89 70 - 199 mg/dL [facility] Comment: Interpretive Data Fasting glucose >/= [...] interpretive data was last revised 2017. Calcium 7.2(L) 8.5 - 10.3 mg/dL [facility] Blood specimen (specimen) 02/19/2021 2:36 AM CDT 02/19/2021 2:38 AM CDT us Fabio Timmons NP LAB BLOOD ORDERABLES Final Re sult Performing Organization Address City/[facility]/ZIP Co de Phone Number [facility] 2 [facility] Department [place] [address] * (ABNORMAL) POCT glucose (02/18/2021 11:23 PM CDT) Glucose, POC 121(H) 70 - 110 mg/dL [facility] Blood specimen (specimen) 02/18/2021 11:23 PM CDT 02/18/2021 11:23 PM CDT us Linda Harris MD LAB POCT ORDERABL ES - DEVICE Final Result Performing Organization Address [facility]/ZIP Co de Phone Number [facility] 2 [facility] [place] [address] * POCT glucose (02/18/2021 8:42 PM CDT) Glucose, POC 74 70 - 110 mg/dL [facility] Blood specimen (specimen) 02/18/2021 8:42 PM CDT 02/18/2021 8:42 PM CDT Linda Harris MD LAB POCT ORDERABL ES - DEVICE Final Result Performing Organization Address [facility] de Phone Number [facility] 2 [facility] [place] [address] * POCT glucose (02/18/2021 12:50 PM CDT) Glucose, POC 91 70 - 110 mg/dL [facility] Blood specimen (specimen) 02/18/2021 12:50 PM CDT 02/18/2021 12:50 PM CDT us Linda Harris MD LAB POCT ORDERABL ES - DEVICE Final Result Performing Organization Address [facility] Phone Number [address] [place] [address] * POCT glucose (02/18/2021 9:26 AM CDT) Glucose, POC 79 70 - 110 mg/dL [facility] Blood specimen (specimen) 02/18/2021 9:26 AM CDT 02/18/2021 9:26 AM CDT Linda Harris MD LAB POCT ORDERABL ES - DEVICE Final Result Performing Organization Address [facility] de Phone Number [facility] 2 [facility] [place] [address] * eGFR (02/18/2021 3:55 AM CDT) eGFR 109 mL/min/1.7 3 m2 [facility] Comment: Interpretive Data Reference Interval Normal [...] was last reviewed 2020 Blood specimen (specimen) 02/18/2021 3:55 AM CDT 02/18/2021 3:58 AM CDT us Fabio Timmons ASSISTANT DIRECTOR OF NURSING LAB BLOOD ORDERABLES Final Re sult Performing Organization Address [facility]/ZIP Co de Phone Number [address] Department [place] [address] * Magnesium (02/18/2021 3:55 AM CDT) Magnesium 2.0 1.4 - 2.5 mg/dL [facility] Blood specimen (specimen) 02/18/2021 3:55 AM CDT 02/18/2021 3:58 AM CDT us Sharad Mcdonnell MD LAB BLOOD ORDERABLES Final R esult Performing Organization Address City/[facility] Co de Phone Number [address] Department [place] [address] * (ABNORMAL) CBC without differential (02/18/2021 3:55 AM CDT) Pathologist [facility] WBC 17.9(H) 3.8 - 9.9 K/cumm [facility] Hgb 9.0(L) 11.9 - 15.5 g/dL [facility] Hct 27.9(L) 35.6 - 45.5 % [facility] Plt 502(H) 150 - 400 K/cumm [facility] MPV 9.0(L) 9.1 - 12.3 fL [facility] RBC 3.09(L) 3.90 - 5.20 M/cumm [facility] MCV 90.3 81.3 - 96.4 fL [facility] MCH 29.1 27.1 - 33.3 pg [facility] MCHC 32.3 32.3 - 35.7 g/dL [facility] RDW CV 14.8 11.1 - 14.9 % [facility] RDW SD 48.6(H) 35.7 - 48.1 fL [facility] Blood specimen (specimen) 02/18/2021 3:55 AM CDT 02/18/2021 3:58 AM CDT us Fabio Timmons ASSISTANT DIRECTOR OF NURSING LAB BLOOD ORDERABLES Final Re sult [facility] [address] Department [place] [address] * (ABNORMAL) Basic metabolic panel (02/18/2021 3:55 AM CDT) [facility] Sodium 137 135 - 145 mmol/L [facility] Potassium, pl 3.5 3.3 - 4.9 mmol/L [facility] Chloride 108 97 - 110 mmol/L [facility] CO2 22 22 - 32 mmol/L [facility] Anion gap 7 2 - 15 mmol/L [facility] BUN 4(L) 8 - 25 mg/dL [facility] Creatinine 0.50(L) 0.60 - 1.10 mg/dL [facility] Glucose 82 70 - 199 mg/dL [facility] Comment: Interpretive Data Fasting glucose >/= [...] interpretive data was last revised 2017. Calcium 7.1(L) 8.5 - 10.3 mg/dL [facility] Blood specimen (specimen) 02/18/2021 3:55 AM CDT 02/18/2021 3:58 AM CDT Fabio Timmons NP LAB BLOOD ORDERABLES Final Re sult Performing Organization Address [facility]/ZIP Co de Phone Number [facility] 2 [facility] Department [place] [address] * POCT glucose (02/17/2021 8:55 PM CDT) Glucose, POC 91 70 - 110 mg/dL [facility] Blood specimen (specimen) 02/17/2021 8:55 PM CDT 02/17/2021 8:55 PM CDT Linda Harris MD LAB POCT ORDERABL ES - DEVICE Final Result Performing Organization Address [facility] Co de Phone Number [facility] [address] [facility] Department [place] [address] * POCT glucose (02/17/2021 3:53 PM CDT) Glucose, POC 105 70 - 110 mg/dL [facility] Blood specimen (specimen) 02/17/2021 3:53 PM CDT 02/17/2021 3:53 PM CDT Linda Harris MD LAB POCT ORDERABL ES - DEVICE Final Result [facility] [address] [facility] Department [place] [address] * POCT glucose (02/17/2021 11:56 AM CDT) [facility] Signature Glucose, POC 91 70 - 110 mg/dL [facility] Blood specimen (specimen) 02/17/2021 11:56 AM CDT 02/17/2021 11:56 AM CDT Linda Harris MD LAB POCT ORDERABL ES - DEVICE Final Result Performing Organization Address [facility] Co de Phone Number [facility] [address] [facility] Department [place] [address] * XR Chest Pa Lateral 2 Views (02/17/2021 10:13 AM CDT) Anatomical Region Laterality Modality Body, Chest N/A Computed Radiogr aphy 02/17/2021 10:3 5 AM CDT Impressions 02/17/2021 10:35 AM CDT 1. ??Small bilateral pleural effusions with bibasilar atelectasis or infiltrate, unchanged. 2. ??More focal opacity in the right upper lobe compatible with the history of pneumonia. ??Recommend following to complete resolution. 3. ??Radiographic contrast within the right colon. ??Mildly distended loops of small bowel in the left mid abdomen. ??This is nonspecific. The patient is not felt to be obstructed as the oral contrast has reached the colon. ??The appearance is improved when compared to the prior small bowel obstruction of 02/14/2021. Electronically signed by: Reena Carranza M.D. Narrative 02/17/2021 10:35 AM CDT EXAMINATION: 1. ??CHEST PA AND LATERAL 2. ??Abdomen 2 views DATE: 02/17/2021 9:45 AM. HISTORY: pneumonia. ??Follow-up small bowel obstruction. COMPARISON: Chest x-ray 02/14/2021 and small bowel series 02/14/[address] of the abdomen and pelvis 02/12/2021 FINDINGS: ?? Chest x-ray: Again seen is an NG tube with the distal tip overlying the upper body of the stomach. ??Interval placement of a right-sided PICC line with the distal tip overlying the right atrium. ??Previously described hazy opacity in the right upper lobe appears more focal and is concerning for pneumonia. ??Underlying neoplastic process cannot entirely be excluded and follow-up to complete resolution is recommended. ??Small bilateral pleural effusions with bibasilar atelectasis or infiltrate is similar to the prior exam. ??Suture line in the left apex, unchanged. ??No pneumothorax. ??The cardiac silhouette is within normal limits and unchanged. ??The aorta is calcified. ??No acute bony abnormality. KUB: Radiographic contrast is seen in the right colon. ??Air is seen within loops of small bowel. ??Most of the small bowel loops are nondilated. ??There is a loop of small bowel just above the left iliac crest on the upright view which is mildly dilated measuring 3.3 cm. However, the patient is not felt to be obstructed as the contrast has reached the colon. ??NG tube with the distal tip overlying the upper body of the stomach. ??No free air within the abdomen. Procedure Note Reena Carranza MD - 02/17/2021 EXAMINATION: 1. CHEST PA AND LATERAL 2. Abdomen 2 views DATE: 02/17/2021 9:45 AM. HISTORY: pneumonia. Follow-up small bowel obstruction. COMPARISON: Chest x-ray 02/14/2021 and small bowel series 02/14/[address] of the abdomen and pelvis 02/12/2021 FINDINGS: Chest x-ray: Again seen is an NG tube with the distal tip overlying the upper body of the stomach. Interval placement of a right-sided PICC line with the distal tip overlying the right atrium. Previously described hazy opacity in the right upper lobe appears more focal and is concerning for pneumonia. Underlying neoplastic process cannot entirely be excluded and follow-up to complete resolution is recommended. Small bilateral pleural effusions with bibasilar atelectasis or infiltrate is similar to the prior exam. Suture line in the left apex, unchanged. No pneumothorax. The cardiac silhouette is within normal limits and unchanged. The aorta is calcified. No acute bony abnormality. KUB: Radiographic contrast is seen in the right colon. Air is seen within loops of small bowel. Most of the small bowel loops are nondilated. There is a loop of small bowel just above the left iliac crest on the upright view which is mildly dilated measuring 3.3 cm. However, the patient is not felt to be obstructed as the contrast has reached the colon. NG tube with the distal tip overlying the upper body of the stomach. No free air within the abdomen. IMPRESSION: 1. Small bilateral pleural effusions with bibasilar atelectasis or infiltrate, unchanged. 2. More focal opacity in the right upper lobe compatible with the history of pneumonia. Recommend following to complete resolution. 3. Radiographic contrast within the right colon. Mildly distended loops of small bowel in the left mid abdomen. This is nonspecific. The patient is not felt to be obstructed as the oral contrast has reached the colon. The appearance is improved when compared to the prior small bowel obstruction of 02/14/2021. Electronically signed by: Reena Carranza M.D. Shantanu Singh MD IMG XR PROCEDURES [facility] l Result * XR Abdomen Erect and or Decubitus 2 Views (02/17/2021 10:05 AM CDT) Anatomical Region Laterality Modality Body, Abdomen N/A Computed Radiogr aphy 02/17/2021 10:3 5 AM CDT Impressions 02/17/2021 10:35 AM CDT 1. ??Small bilateral pleural effusions with bibasilar atelectasis or infiltrate, unchanged. 2. ??More focal opacity in the right upper lobe compatible with the history of pneumonia. ??Recommend following to complete resolution. 3. ??Radiographic contrast within the right colon. ??Mildly distended loops of small bowel in the left mid abdomen. ??This is nonspecific. The patient is not felt to be obstructed as the oral contrast has reached the colon. ??The appearance is improved when compared to the prior small bowel obstruction of 02/14/2021. Electronically signed by: Reena Carranza M.D. Narrative 02/17/2021 10:35 AM CDT EXAMINATION: 1. ??CHEST PA AND LATERAL 2. ??Abdomen 2 views DATE: 02/17/2021 9:45 AM. HISTORY: pneumonia. ??Follow-up small bowel obstruction. COMPARISON: Chest x-ray 02/14/2021 and small bowel series 02/14/[address] of the abdomen and pelvis 02/12/2021 FINDINGS: ?? Chest x-ray: Again seen is an NG tube with the distal tip overlying the upper body of the stomach. ??Interval placement of a right-sided PICC line with the distal tip overlying the right atrium. ??Previously described hazy opacity in the right upper lobe appears more focal and is concerning for pneumonia. ??Underlying neoplastic process cannot entirely be excluded and follow-up to complete resolution is recommended. ??Small bilateral pleural effusions with bibasilar atelectasis or infiltrate is similar to the prior exam. ??Suture line in the left apex, unchanged. ??No pneumothorax. ??The cardiac silhouette is within normal limits and unchanged. ??The aorta is calcified. ??No acute bony abnormality. KUB: Radiographic contrast is seen in the right colon. ??Air is seen within loops of small bowel. ??Most of the small bowel loops are nondilated. ??There is a loop of small bowel just above the left iliac crest on the upright view which is mildly dilated measuring 3.3 cm. However, the patient is not felt to be obstructed as the contrast has reached the colon. ??NG tube with the distal tip overlying the upper body of the stomach. ??No free air within the abdomen. Procedure Note Reena Carranza MD - 02/17/2021 EXAMINATION: 1. CHEST PA AND LATERAL 2. Abdomen 2 views DATE: 02/17/2021 9:45 AM. HISTORY: pneumonia. Follow-up small bowel obstruction. COMPARISON: Chest x-ray 02/14/2021 and small bowel series 02/14/[address] of the abdomen and pelvis 02/12/2021 FINDINGS: Chest x-ray: Again seen is an NG tube with the distal tip overlying the upper body of the stomach. Interval placement of a right-sided PICC line with the distal tip overlying the right atrium. Previously described hazy opacity in the right upper lobe appears more focal and is concerning for pneumonia. Underlying neoplastic process cannot entirely be excluded and follow-up to complete resolution is recommended. Small bilateral pleural effusions with bibasilar atelectasis or infiltrate is similar to the prior exam. Suture line in the left apex, unchanged. No pneumothorax. The cardiac silhouette is within normal limits and unchanged. The aorta is calcified. No acute bony abnormality. KUB: Radiographic contrast is seen in the right colon. Air is seen within loops of small bowel. Most of the small bowel loops are nondilated. There is a loop of small bowel just above the left iliac crest on the upright view which is mildly dilated measuring 3.3 cm. However, the patient is not felt to be obstructed as the contrast has reached the colon. NG tube with the distal tip overlying the upper body of the stomach. No free air within the abdomen. IMPRESSION: 1. Small bilateral pleural effusions with bibasilar atelectasis or infiltrate, unchanged. 2. More focal opacity in the right upper lobe compatible with the history of pneumonia. Recommend following to complete resolution. 3. Radiographic contrast within the right colon. Mildly distended loops of small bowel in the left mid abdomen. This is nonspecific. The patient is not felt to be obstructed as the oral contrast has reached the colon. The appearance is improved when compared to the prior small bowel obstruction of 02/14/2021. Electronically signed by: Reena Carranza M.D. Jovanny Donnelly MD IMG XR PROCEDURES Final Res ult * (ABNORMAL) POCT glucose (02/17/2021 7:40 AM CDT) Glucose, POC 128(H) 70 - 110 mg/dL JAILYN MARRERO Blood specimen (specimen) 02/17/2021 7:40 AM CDT 02/17/2021 7:40 AM CDT Linda Harris MD LAB POCT ORDERABL ES - DEVICE Final Result [facility] [address] Department [place] [address] * Prepare RBC: 1 Units (02/17/2021 4:26 AM CDT) Pathologist [facility] Units requested 1 [facility] PW Units requested Ready JAILYN MARRERO Unit Number [id number] JAILYN PW Product code [id number] [facility] Blood Expiration Date [id number] [facility] Product Blood Type (for scanning) 0600 [facility] Product Blood Type ANEG [facility] Dispense Status DISPENSED JAILYN PW Blood specimen (specimen) 02/17/2021 4:26 AM CDT 02/17/2021 4:26 AM CDT Jacque Ansari ASSISTANT DIRECTOR OF NURSING BLOOD BANK PRODUCT ORDERABLES Fi nal Result [facility] 2 [facility] [place] [address] * eGFR (02/17/2021 3:40 AM CDT) [facility] eGFR 109 mL/min/1.7 3 m2 [facility] Comment: Interpretive Data Reference Interval Normal [...] was last reviewed 2020 Blood specimen (specimen) 02/17/2021 3:40 AM CDT 02/17/2021 3:42 AM CDT Fabio Timmons NP LAB BLOOD ORDERABLES Final Re sult [facility] [address] Department [place] [address] * (ABNORMAL) Differential, auto (02/17/2021 3:40 AM CDT) Neutrophil abs 17.0(H) 1.7 - 6.5 K/cumm [facility] Imm gran abs 0.5(H) 0.0 - 0.1 K/cumm [facility] Lymphocyte abs 1.7 0.8 - 3.3 K/cumm [facility] Monocyte abs 0.9(H) 0.2 - 0.8 K/cumm [facility] Eosinophil abs 0.5 0.0 - 0.5 K/cumm [facility] Basophil abs 0.0 0.0 - 0.1 K/cumm [facility] Neutrophil pct 82.4 % [facility] Comment: Interpretive Data Percent cell count reference ranges are not reported, since discordance with absolute values may lead to misinterpretation of CBC data. Current Interpretive Data was last revised on 2017. Imm gran pct 2.2 % [facility] Comment: Interpretive Data Percent cell count reference ranges are not reported, since discordance with absolute values may lead to misinterpretation of CBC data. Current Interpretive Data was last revised on 2017. Lymphocyte pct 8.4 % [facility] Comment: Interpretive Data Percent cell count reference ranges are not reported, since discordance with absolute values may lead to misinterpretation of CBC data. Current Interpretive Data was last revised on 2017. Monocyte pct 4.6 % [facility] Comment: Interpretive Data Percent cell count reference ranges are not reported, since discordance with absolute values may lead to misinterpretation of CBC data. Current Interpretive Data was last revised on 2017. Eosinophil pct 2.2 % [facility] Comment: Interpretive Data Percent cell count reference ranges are not reported, since discordance with absolute values may lead to misinterpretation of CBC data. Current Interpretive Data was last revised on 2017. Basophil pct 0.2 % [facility] Comment: Interpretive Data Percent cell count reference ranges are not reported, since discordance with absolute values may lead to misinterpretation of CBC data. Current Interpretive Data was last revised on 2017. Blood specimen (specimen) 02/17/2021 3:40 AM CDT 02/17/2021 3:42 AM CDT Jovanny Donnelly MD LAB BLOOD ORDERABLES Final Result Performing Organization Address [facility] de Phone Number [facility] [address] [facility] Department [place] [address] * Magnesium (02/17/2021 3:40 AM CDT) Pathologist [facility] Magnesium 1.9 1.4 - 2.5 mg/dL [facility] Blood specimen (specimen) 02/17/2021 3:40 AM CDT 02/17/2021 3:42 AM CDT Sharad Mcdonnell MD LAB BLOOD ORDERABLES Final R esult Performing Organization Address [facility] Co de Phone Number [facility] [address] [facility] [place] [address] * (ABNORMAL) Basic metabolic panel (02/17/2021 3:40 AM CDT) Pathologist [facility] Sodium 137 135 - 145 mmol/L [facility] Potassium, pl 3.1(L) 3.3 - 4.9 mmol/L [facility] Chloride 105 97 - 110 mmol/L [facility] CO2 25 22 - 32 mmol/L [facility] Anion gap 7 2 - 15 mmol/L [facility] BUN 3(L) 8 - 25 mg/dL [facility] Creatinine 0.50(L) 0.60 - 1.10 mg/dL [facility] Glucose 90 70 - 199 mg/dL [facility] Comment: Interpretive Data Fasting glucose >/= [...] interpretive data was last revised 2017. Calcium 7.1(L) 8.5 - 10.3 mg/dL [facility] Blood specimen (specimen) 02/17/2021 3:40 AM CDT 02/17/2021 3:42 AM CDT us Fabio Timmons ASSISTANT DIRECTOR OF NURSING LAB BLOOD ORDERABLES Final Re sult [facility] [address] [facility] Department of Laboratories [place], [place] [id number] * (ABNORMAL) CBC with auto differential (02/17/2021 3:40 AM CDT) WBC 20.6(H) 3.8 - 9.9 K/cumm [facility] Hgb 6.9(L) 11.9 - 15.5 g/dL [facility] Hct 21.4(L) 35.6 - 45.5 % [facility] Plt 433(H) 150 - 400 K/cumm [facility] MPV 9.3 9.1 - 12.3 fL [facility] RBC 2.30(L) 3.90 - 5.20 M/cumm [facility] MCV 93.0 81.3 - 96.4 fL [facility] MCH 30.0 27.1 - 33.3 pg [facility] MCHC 32.2(L) 32.3 - 35.7 g/dL [facility] RDW CV 13.7 11.1 - 14.9 % [facility] RDW SD 46.2 35.7 - 48.1 fL [facility] Blood specimen (specimen) 02/17/2021 3:40 AM CDT 02/17/2021 3:42 AM CDT Jovanny Donnelly MD LAB BLOOD ORDERABLES Final Result Performing Organization Address City/[facility]/ZIP Co de Phone Number [address] [place] [address] * POCT glucose (02/16/2021 8:50 PM CDT) Glucose, POC 110 70 - 110 mg/dL [facility] Blood specimen (specimen) 02/16/2021 8:50 PM CDT 02/16/2021 8:50 PM CDT Linda Harris MD LAB POCT ORDERABL ES - DEVICE Final Result Performing Organization Address [facility] de Phone Number [address] [address] * (ABNORMAL) POCT glucose (02/16/2021 5:56 PM CDT) Glucose, POC 114(H) 70 - 110 mg/dL [facility] Blood specimen (specimen) 02/16/2021 5:56 PM CDT 02/16/2021 5:56 PM CDT Linda Harris MD LAB POCT ORDERABL ES - DEVICE Final Result Performing Organization Address [facility] Co de Phone Number [facility] 2 [facility] [place] [address] * Crossmatch (02/16/2021 4:27 PM CDT) Crossmatch Compatible [facility] Unit number for crossmatch [id number] [facility] Blood specimen (specimen) 02/16/2021 4:27 PM CDT 02/16/2021 4:37 PM CDT Linda Harris MD LAB BLOOD BANK TE ST ORDERABLES Final Result Performing Organization Address [facility] de Phone Number [address] [place] [address] * Antibody screen (02/16/2021 4:27 PM CDT) Andreina, indirect, Gel Interpretation Negative ABSC [facility] Blood specimen (specimen) 02/16/2021 4:27 PM CDT 02/16/2021 4:37 PM CDT Narrative [facility] - 02/16/2021 5:24 PM CDT Has the patient had Daratumumab or Isatuximab in the past 6 months?->Unknown Sharad Mcdonnell MD LAB BLOOD BANK TEST ORDERABL ES Final Result Performing Organization Address [facility] de Phone Number [address] [place] [address] * ABO/Rh (02/16/2021 4:27 PM CDT) Pathologist [facility] ABO/Rh A Negative [facility] Blood specimen (specimen) 02/16/2021 4:27 PM CDT 02/16/2021 4:37 PM CDT Narrative [facility] - 02/16/2021 5:13 PM CDT Has the patient had Daratumumab or Isatuximab in the past 6 months?->Unknown Sharad Mcdonnell MD LAB BLOOD BANK TEST ORDERABL ES Final Result Performing Organization Address [facility]/State/ZIP Co de Phone Number [facility] [address] [facility] Department [place] [address] * eGFR (02/16/2021 4:05 PM CDT) eGFR 109 mL/min/1.7 3 m2 JAILYN MARRERO Comment: Interpretive Data Reference Interval Normal ?>/= [...] was last reviewed 2020 Blood specimen (specimen) 02/16/2021 4:05 PM CDT 02/16/2021 4:21 PM CDT us Sharad Mcdonnell MD LAB BLOOD ORDERABLES Final R esult JAILYN [facility] [address] [facility] Department [place] [address] * (ABNORMAL) Differential, auto (02/16/2021 4:05 PM CDT) Pathologist [facility] Neutrophil abs 20.0(H) 1.7 - 6.5 K/cumm [facility] Imm gran abs 0.7(H) 0.0 - 0.1 K/cumm [facility] Lymphocyte abs 1.7 0.8 - 3.3 K/cumm [facility] Monocyte abs 1.0(H) 0.2 - 0.8 K/cumm [facility] Eosinophil abs 0.3 0.0 - 0.5 K/cumm [facility] Basophil abs 0.0 0.0 - 0.1 K/cumm [facility] Neutrophil pct 84.6 % [facility] Comment: Interpretive Data Percent cell count reference ranges are not reported, since discordance with absolute values may lead to misinterpretation of CBC data. Current Interpretive Data was last revised on 2017. Imm gran pct 2.8 % [facility] Comment: Interpretive Data Percent cell count reference ranges are not reported, since discordance with absolute values may lead to misinterpretation of CBC data. Current Interpretive Data was last revised on 2017. Lymphocyte pct 7.1 % [facility] Comment: Interpretive Data Percent cell count reference ranges are not reported, since discordance with absolute values may lead to misinterpretation of CBC data. Current Interpretive Data was last revised on 2017. Monocyte pct 4.2 % [facility] Comment: Interpretive Data Percent cell count reference ranges are not reported, since discordance with absolute values may lead to misinterpretation of CBC data. Current Interpretive Data was last revised on 2017. Eosinophil pct 1.1 % [facility] Comment: Interpretive Data Percent cell count reference ranges are not reported, since discordance with absolute values may lead to misinterpretation of CBC data. Current Interpretive Data was last revised on 2017. Basophil pct 0.2 % [facility] Comment: Interpretive Data Percent cell count reference ranges are not reported, since discordance with absolute values may lead to misinterpretation of CBC data. Current Interpretive Data was last revised on 2017. Blood specimen (specimen) 02/16/2021 4:05 PM CDT 02/16/2021 4:21 PM CDT Sharad Mcdonnell MD LAB BLOOD ORDERABLES Final R esult JAILYN [facility] 2 [facility] Department [place] [address] * (ABNORMAL) Basic metabolic panel (02/16/2021 4:05 PM CDT) Pathologist [facility] Sodium 138 135 - 145 mmol/L [facility] Potassium, pl 3.0(L) 3.3 - 4.9 mmol/L [facility] Chloride 104 97 - 110 mmol/L [facility] CO2 26 22 - 32 mmol/L [facility] Anion gap 8 2 - 15 mmol/L [facility] BUN 3(L) 8 - 25 mg/dL [facility] Creatinine 0.50(L) 0.60 - 1.10 mg/dL [facility] Glucose 95 70 - 199 mg/dL [facility] Comment: Interpretive Data Fasting glucose >/= [...] interpretive data was last revised 2017. Calcium 7.4(L) 8.5 - 10.3 mg/dL [facility] Blood specimen (specimen) 02/16/2021 4:05 PM CDT 02/16/2021 4:21 PM CDT Sharad Mcdonnell MD LAB BLOOD ORDERABLES Final R esult Performing Organization Address City/[facility]/ZIP Co de Phone Number JAILYN [facility] [address] [facility] Department [place] [address] * (ABNORMAL) CBC with auto differential (02/16/2021 4:05 PM CDT) Pathologist [facility] WBC 23.6(H) 3.8 - 9.9 K/cumm [facility] Hgb 7.1(L) 11.9 - 15.5 g/dL [facility] Hct 21.9(L) 35.6 - 45.5 % [facility] Plt 370 150 - 400 K/cumm [facility] MPV 9.4 9.1 - 12.3 fL [facility] RBC 2.39(L) 3.90 - 5.20 M/cumm [facility] MCV 91.6 81.3 - 96.4 fL [facility] MCH 29.7 27.1 - 33.3 pg [facility] MCHC 32.4 32.3 - 35.7 g/dL [facility] RDW CV 13.6 11.1 - 14.9 % [facility] RDW SD 45.1 35.7 - 48.1 fL [facility] Blood specimen (specimen) 02/16/2021 4:05 PM CDT 02/16/2021 4:21 PM CDT us Sharad Mcdonnell MD LAB BLOOD ORDERABLES Final R esult [facility] [address] [facility] Department [place] [address] * Insert PICC line (02/16/2021 2:33 PM CDT) Narrative Blanca Timmons. - 02/16/2021 2:33 PM CDT Blanca Timmons RN ? 02/16/2021 ??2:36 PM VASCULAR ACCESS CONSULT FOR PICC LINE. Consulted for DL PICC. Reviewed labs, consent, H&P, AND orders prior to placement. Assessed RIGHT upper arm under ultrasound. BASILIC vessel showed normal compression and adequate size for DL PICC to be placed. Site prepped x 2 and dried. Sterile field draped in normal fashion and max barrier precautions followed. 5 sterile barriers applied. Vessel depth and diameter measured.Midline catheter was in place, guidewire slid into lumen and lumen removed w/o complication and tip was visually intact upon removal. Guidewire removed and accounted for. DL PICC trimmed to 38 CM and flushed with 0 CM out of insertion site. Able to advanced PICC into vessel w/o complication. 3CG technology verified PICC tip was down and in SVC. Strip printed and placed in pt chart. Less than 5ML EBL. Sterile dressing applied. lumen flushed with 20 ML NS w/o complication and blood aspirated noted. Sterile dressing applied and occlusive. All sharps accounted for and disposed of. Right limb alert placed on pt. Bedside Rn notified. Line ok to use order placed in chart. Questions please call blanca timmons RN Vascular access [phone] Linda Harris MD IV THERAPY ORDERA BLES Final Result * (ABNORMAL) POCT glucose (02/16/2021 9:14 AM CDT) [facility] Glucose, POC 136(H) 70 - 110 mg/dL [facility] Blood specimen (specimen) 02/16/2021 9:14 AM CDT 02/16/2021 9:14 AM CDT Linda Harris MD LAB POCT ORDERABL ES - DEVICE Final Result Performing Organization Address City/[facility]/ZIP Co de Phone Number [address] Department [place] [employer] [address] * ABO / Rh Confirmation Testing (02/16/2021 3:27 AM CDT) [facility] ABO/Rh Confirmation A Negative [facility] Blood specimen (specimen) 02/16/2021 3:27 AM CDT 02/16/2021 4:50 PM CDT Sharad Mcdonnell MD LAB BLOOD ORDERABLES Final R esult Performing Organization Address City/[facility] Co de Phone Number [facility] 2 [facility] [place] [address] * eGFR (02/16/2021 3:27 AM CDT) [facility] eGFR 103 mL/min/1.7 3 m2 [facility] Comment: Interpretive Data Reference Interval Normal [...] was last reviewed 2020 Blood specimen (specimen) 02/16/2021 3:27 AM CDT 02/16/2021 3:30 AM CDT us Fabio Timmons NP LAB BLOOD ORDERABLES Final Re sult Performing Organization Address City/[facility] Co de Phone Number [facility] [address] Department [place] [address] * Magnesium (02/16/2021 3:27 AM CDT) Magnesium 1.5 1.4 - 2.5 mg/dL [facility] Blood specimen (specimen) 02/16/2021 3:27 AM CDT 02/16/2021 3:30 AM CDT Sharad Mcdonnell MD LAB BLOOD ORDERABLES Final R esult Performing Organization Address City/State/[facility] Co de Phone Number [facility] [address] Department [place] [address] * (ABNORMAL) CBC without differential (02/16/2021 3:27 AM CDT) Pathologist [facility] WBC 23.2(H) 3.8 - 9.9 K/cumm [facility] Hgb 6.5(L) 11.9 - 15.5 g/dL [facility] Hct 20.7(L) 35.6 - 45.5 % [facility] PW Plt 291 150 - 400 K/cumm [facility] MPV 9.4 9.1 - 12.3 fL [facility] RBC 2.23(L) 3.90 - 5.20 M/cumm [facility] MCV 92.8 81.3 - 96.4 fL [facility] MCH 29.1 27.1 - 33.3 pg [facility] MCHC 31.4(L) 32.3 - 35.7 g/dL [facility] RDW CV 13.7 11.1 - 14.9 % [facility] RDW SD 45.9 35.7 - 48.1 fL [facility] Blood specimen (specimen) 02/16/2021 3:27 AM CDT 02/16/2021 3:30 AM CDT Fabio Timmons ASSISTANT DIRECTOR OF NURSING LAB BLOOD ORDERABLES Final Re sult Performing Organization Address [facility]/ZIP Co de Phone Number [facility] [address] [facility] Department [place] [address] * (ABNORMAL) Basic metabolic panel (02/16/2021 3:27 AM CDT) Pathologist [facility] Sodium 141 135 - 145 mmol/L [facility] Potassium, pl 2.7(C) 3.3 - 4.9 mmol/L [facility] Comment:Critical Result call ed by [email or web address] at 2021-02-16 03:56:08. Result Read Back by Gerson New RN Chloride 106 97 - 110 mmol/L [facility] CO2 27 22 - 32 mmol/L [facility] Anion gap 8 2 - 15 mmol/L [facility] BUN 4(L) 8 - 25 mg/dL [facility] Creatinine 0.60 0.60 - 1.10 mg/dL [facility] Glucose 123 70 - 199 mg/dL [facility] Comment: Interpretive Data Fasting glucose >/= [...] interpretive data was last revised 2017. Calcium 7.2(L) 8.5 - 10.3 mg/dL [facility] Blood specimen (specimen) 02/16/2021 3:27 AM CDT 02/16/2021 3:30 AM CDT us Fabio Timmons NP LAB BLOOD ORDERABLES Final Re sult Performing Organization Address City/[facility]/ZIP Co de Phone Number [address] Department [place] [employer] [address] * (ABNORMAL) POCT glucose (02/15/2021 8:34 PM CDT) [facility] Signature Glucose, POC 127(H) 70 - 110 mg/dL [facility] Blood specimen (specimen) 02/15/2021 8:34 PM CDT 02/15/2021 8:34 PM CDT us Linda Harris MD LAB POCT ORDERABL ES - DEVICE Final Result Performing Organization Address [facility]/ZIP Co de Phone Number [facility] 2 [facility] Department [place] [address] * (ABNORMAL) POCT glucose (02/15/2021 5:28 PM CDT) Glucose, POC 121(H) 70 - 110 mg/dL [facility] Blood specimen (specimen) 02/15/2021 5:28 PM CDT 02/15/2021 5:28 PM CDT Linda Harris MD LAB POCT ORDERABL ES - DEVICE Final Result Performing Organization Address [facility] Co de Phone Number [address] [place] [address] * Guaiac occult blood, fecal, non-neoplasm (02/14/2021 5:57 PM CDT) Guaiac occult blood, fecal Negative Negative [facility] Stool 02/14/2021 5:57 PM CDT 02/14/2021 6:03 PM CDT Linda Harris MD LAB BODY FLUIDS A ND STOOLS ORDERABLES Final Result Performing Organization Address [facility] de Phone Number [address] [place] [address] * (ABNORMAL) POCT glucose (02/14/2021 4:59 PM CDT) Glucose, POC 135(H) 70 - 110 mg/dL [facility] Blood specimen (specimen) 02/14/2021 4:59 PM CDT 02/14/2021 4:59 PM CDT Linda Harris MD LAB POCT ORDERABL ES - DEVICE Final Result Performing Organization Address [facility] Co de Phone Number [address] Department [place] [address] * FL Small Bowel Series (02/14/2021 3:50 PM CDT) Anatomical Region Laterality Modality Body N/A Radio Fluoroscop y 02/14/2021 4:17 PM CDT Impressions 02/14/2021 4:17 PM CDT 1. ??Antegrade flow of contrast into colon at 2.5 hours following administration of water-soluble contrast into stomach. ??There is contrast within mildly prominent mid to distal small bowel within the central and right abdomen. ??No small bowel obstruction on this study. Mildly prominent mid to distal small bowel may suggest mild ileus. Results discussed with Dr. Thao by Dr. Padilla 02/14/2021. Electronically signed by: Barbie Padilla M.D. Narrative 02/14/2021 4:17 PM CDT GASTROGRAFIN SMALL BOWEL SERIES ?? DATE:02/14/2021 12:20 PM INDICATIONS: pSBO TECHNIQUE: ?? Preliminary blind cleaner film abdomen obtained. ??Subsequently 180 mL Gastrografin was administered into the stomach via NG tube. Serial KUBs were obtained up to 2.5 hours. FINDINGS:Preliminary blind cleaner film abdomen demonstrate air and stool throughout colon and rectum and mildly prominent nonspecific air-filled loop of bowel within the low abdomen. ??NG tube in proximal stomach. ??Following administration of water-soluble contrast into stomach, initial KUB demonstrate contrast within stomach and within nondistended proximal small bowel. ??Contrast within nondistended proximal small bowel is unchanged on subsequent 30 minute radiograph. Antegrade flow contrast into mildly prominent mid to distal small bowel within central and right abdomen is present on the 90 minute radiograph. ??Contrast passes into ascending and transverse colon on the 2.5 hour radiograph. ??Persistent contrast within mildly prominent mid to distal small bowel within the central and right abdomen. Results was discussed with Dr. Thao. ??Study was terminated at this time per Dr. Thao. The fluoroscopy time was entered into the electronic records by the technologist. Procedure Note Barbie Padilla MD - 02/14/2021 GASTROGRAFIN SMALL BOWEL SERIES DATE:02/14/2021 12:20 PM INDICATIONS: pSBO TECHNIQUE: Preliminary blind cleaner film abdomen obtained. Subsequently 180 mL Gastrografin was administered into the stomach via NG tube. Serial KUBs were obtained up to 2.5 hours. FINDINGS:Preliminary blind cleaner film abdomen demonstrate air and stool throughout colon and rectum and mildly prominent nonspecific air-filled loop of bowel within the low abdomen. NG tube in proximal stomach. Following administration of water-soluble contrast into stomach, initial KUB demonstrate contrast within stomach and within nondistended proximal small bowel. Contrast within nondistended proximal small bowel is unchanged on subsequent 30 minute radiograph. Antegrade flow contrast into mildly prominent mid to distal small bowel within central and right abdomen is present on the 90 minute radiograph. Contrast passes into ascending and transverse colon on the 2.5 hour radiograph. Persistent contrast within mildly prominent mid to distal small bowel within the central and right abdomen. Results was discussed with Dr. Thao. Study was terminated at this time per Dr. Thao. The fluoroscopy time was entered into the electronic records by the technologist. IMPRESSION: 1. Antegrade flow of contrast into colon at 2.5 hours following administration of water-soluble contrast into stomach. There is contrast within mildly prominent mid to distal small bowel within the central and right abdomen. No small bowel obstruction on this study. Mildly prominent mid to distal small bowel may suggest mild ileus. Results discussed with Dr. Thao by Dr. Padilla 02/14/2021. Electronically signed by: Barbie Padilla M.D. Ivonne Thao MD IMG FLUOROSCOPY PROCEDUR ES Final Result * (ABNORMAL) CBC without differential (02/14/2021 3:29 PM CDT) WBC 26.7(H) 3.8 - 9.9 K/cumm [facility] Hgb 8.1(L) 11.9 - 15.5 g/dL [facility] Hct 24.4(L) 35.6 - 45.5 % [facility] Plt 196 150 - 400 K/cumm [facility] MPV 11.1 9.1 - 12.3 fL [facility] RBC 2.68(L) 3.90 - 5.20 M/cumm [facility] MCV 91.0 81.3 - 96.4 fL [facility] MCH 30.2 27.1 - 33.3 pg [facility] MCHC 33.2 32.3 - 35.7 g/dL [facility] RDW CV 13.8 11.1 - 14.9 % [facility] RDW SD 46.0 35.7 - 48.1 fL [facility] Blood specimen (specimen) 02/14/2021 3:29 PM CDT 02/14/2021 3:31 PM CDT Narrative JAILYN MARRERO - 02/14/2021 3:33 PM CDT while on enoxaparin. us Fabio Timmons ASSISTANT DIRECTOR OF NURSING LAB BLOOD ORDERABLES Final Re sult Performing Organization Address City/[facility]/ZIP Co de Phone Number [facility] 2 [facility] Department [place] [address] * (ABNORMAL) POCT glucose (02/14/2021 1:09 PM CDT) [facility] Signature Glucose, POC 128(H) 70 - 110 mg/dL [facility] Blood specimen (specimen) 02/14/2021 1:09 PM CDT 02/14/2021 1:09 PM CDT Linda Harris MD LAB POCT ORDERABL ES - DEVICE Final Result Performing Organization Address [facility] Co de Phone Number [facility] 2 [facility] [place] [address] * XR Chest 1 View (02/14/2021 12:02 PM CDT) Anatomical Region Laterality Modality Body, Chest N/A Computed Radiogr aphy 02/14/2021 12:1 3 PM CDT Impressions 02/14/2021 12:13 PM CDT 1. ??Post left thoracentesis with persistent left basilar atelectasis or infiltrate and pleural effusion. ??There is no left pneumothorax. Left upper to midlung clear. 2. ??Hazy airspace opacity or pneumonic infiltrate right upper mid to lower lung with right basilar atelectasis and small effusion. Electronically signed by: Barbie Padilla M.D. Narrative 02/14/2021 12:13 PM CDT CHEST 1 VIEW DATE: 02/14/2021 11:55 AM INDICATION: ??pneumothorax post thoracentesis . ??Post left thoracentesis. TECHNIQUE: ??AP portable upright COMPARISON: 02/10/2021 FINDINGS: Heart size normal with aortic atherosclerosis. ??NG tube in proximal stomach pointing to left. ??Left basilar atelectasis or pleural effusion with left upper to midlung clear. ??There is no left pneumothorax. ??Unchanged suture line left apex. ??There is right basilar or infiltrate and pleural effusion with hazy airspace opacity right upper mid to lower lung. ??Mild right apical pleural-parenchymal thickening unchanged. ?? Procedure Note Barbie Padilla MD - 02/14/2021 CHEST 1 VIEW DATE: 02/14/2021 11:55 AM INDICATION: pneumothorax post thoracentesis . Post left thoracentesis. TECHNIQUE: AP portable upright COMPARISON: 02/10/2021 FINDINGS: Heart size normal with aortic atherosclerosis. NG tube in proximal stomach pointing to left. Left basilar atelectasis or pleural effusion with left upper to midlung clear. There is no left pneumothorax. Unchanged suture line left apex. There is right basilar or infiltrate and pleural effusion with hazy airspace opacity right upper mid to lower lung. Mild right apical pleural-parenchymal thickening unchanged. IMPRESSION: 1. Post left thoracentesis with persistent left basilar atelectasis or infiltrate and pleural effusion. There is no left pneumothorax. Left upper to midlung clear. 2. Hazy airspace opacity or pneumonic infiltrate right upper mid to lower lung with right basilar atelectasis and small effusion. Electronically signed by: Barbie Padilla M.D. Ed Oconnor MD IMG XR PROCEDURES Final Result * Cytology (02/14/2021 11:50 AM CDT) Fluid (Pleura (Cytology)) 02/14/2021 11:49 AM CDT Narrative PATHOLOGY [facility] - 02/16/2021 5:50 PM [address]T [address] ??[id number] Tele: ?? Sasha Lainez MD - Proof Machine Operator CYTOLOGY REPORT Patient Name: ??MADISON WEINBERG Address: ??[address] [place], [place] ??[address] Gender: ??F : ??1965 (Age: 55) Service: ??Medical Location: ??310 Hospital #: ??[id number] Patient Type ?? Inpatient Taken: ??02/14/2021 Reported: ??02/16/2021 Physician(s): ??Ed Oconnor M.D. Lazarus Albert M.D. FINAL DIAGNOSIS: Pleural fluid, left, thoracentesis, cytospin and cell block material evaluation: ? - No malignant cells identified - Predominantly neutrophils 02/16/2021 17:50 Report Reviewed and Electronically Signed By ??Lucien Garay MD, PhD SPECIMEN TYPE: A: LT PLEURAL FLUID CLINICAL DIAGNOSIS AND HISTORY: 55-year-old woman with acute hypoxemic respiratory failure GROSS DESCRIPTION: Received fresh in a container labeled Madison Weinberg / lt pleural fluid are 200 ml of clear yellow fluid with scant white specks. ??Submitted for two Pap- stained cytospins and cell block. MICROSCOPIC DESCRIPTION: Cytospin and cell block material from the left pleural fluid reveal predominantly neutrophils with fewer mixed inflammatory cells and reactive mesothelial cells. ??No malignant cells are identified. Clerical Data Follows A; [id number], [id number]` REPORT IMAGES AND/OR SCANNED DOCUMENTS ONLY VIEWABLE IN PDF FORMAT The immunohistochemical test(s) cited in this report, if any, was developed and its performance characteristics determined by [facility] Pathology Department. ??It has not been cleared or approved by the U.S. Food and Drug Administration. ??The FDA has determined that such clearance or approval is not necessary. ??This test is used for clinical purposes. ??It should not be regarded as investigational or for research. ??[facility] Laboratory is certified under the Clinical Laboratory Improvement Amendments of 1988 (CLIA) as qualified to perform high complexity testing. ??Immunostains were performed on formalin-fixed paraffin embedded tissue using a polymer diaminobenzidine chromogen detection system. Antibodies used may include clone [id number] (mouse monoclonal, estrogen receptor), clone [id number] (mouse monoclonal progesterone receptor), MIB-1 (mouse monoclonal, Ki- 67), and [id number] (rabbit polyclonal, c-kit). us Ed Oconnor MD LAB CYTOLOGY ORDERABLES Final R esult PATHOLOGY [facility] Laboratory Receiving [address] [place] [address] * US Guided Thoracentesis (02/14/2021 11:48 AM CDT) Anatomical Region Laterality Modality Chest N/A Ultrasound 02/14/2021 12:3 9 PM CDT Impressions 02/14/2021 12:39 PM CDT 1. ??Successful ultrasound-guided left thoracentesis. ??220 mL of straw-colored pleural fluid removed. ??No complications. ?? Electronically signed by: Daniel Wells M.D. Narrative 02/14/2021 12:39 PM CDT Ultrasound-guided left thoracentesis 02/14/2021 HISTORY: Left pleural effusion. COMPARISON: CT abdomen pelvis 02/12/2021. ??Chest x-ray 02/10/2021 TECHNIQUE AND FINDINGS: The risks and benefits of an ultrasound guided thoracentesis were explained to the patient in detail and informed consent obtained. ??Risks included bleeding, infection, and pneumothorax. ??A sterile tray was utilized for the procedure. ??The patient was sat upright in bed. ??The left low back prepped and draped in sterile fashion. ??4 mL 1% lidocaine used for local anesthesia. Utilizing ultrasound guidance, a 5-Niuean One-step centesis catheter was directed into the left pleural space. ??The catheter was advanced over the needle and the needle removed. ??220 straw-colored left pleural fluid removed. ??The centesis catheter was removed. Hemostasis achieved at the skin site and a Band-Aid applied. ??The patient tolerated the procedure well without immediate complications. Fluid was sent to the laboratory for analysis per referring physician. Follow-up chest x-ray demonstrated decrease in the left pleural effusion. ??No pneumothorax. ?? Procedure Note Daniel Wells MD - 02/14/2021 Ultrasound-guided left thoracentesis 02/14/2021 HISTORY: Left pleural effusion. COMPARISON: CT abdomen pelvis 02/12/2021. Chest x-ray 02/10/2021 TECHNIQUE AND FINDINGS: The risks and benefits of an ultrasound guided thoracentesis were explained to the patient in detail and informed consent obtained. Risks included bleeding, infection, and pneumothorax. A sterile tray was utilized for the procedure. The patient was sat upright in bed. The left low back prepped and draped in sterile fashion. 4 mL 1% lidocaine used for local anesthesia. Utilizing ultrasound guidance, a 5-Niuean One-step centesis catheter was directed into the left pleural space. The catheter was advanced over the needle and the needle removed. 220 straw-colored left pleural fluid removed. The centesis catheter was removed. Hemostasis achieved at the skin site and a Band-Aid applied. The patient tolerated the procedure well without immediate complications. Fluid was sent to the laboratory for analysis per referring physician. Follow-up chest x-ray demonstrated decrease in the left pleural effusion. No pneumothorax. IMPRESSION: 1. Successful ultrasound-guided left thoracentesis. 220 mL of straw-colored pleural fluid removed. No complications. Electronically signed by: Daniel Wells M.D. Ed Oconnor MD [facility] PROCEDURES Final Result * Cell Differential, Body Fluid (02/14/2021 10:54 AM CDT) Total cells diffed 100 % [facility] Comment: Interpretive Data Unless otherwise specified, the reference range and other method performance specifications have not been established for CSF/Body Fluid tests. ??The test results should be integrated into the clinical context for interpretation. Current interpretive data was last revised on 2019. Neutrophils, fld 85 % [facility] Lymphs, fld 3 % [facility] Macrophages, fld 9 % [facility] Mesothelial cells, fld 3 % [facility] Fluid 02/14/2021 10:5 4 AM CDT 02/14/2021 12:10 PM CDT Linda Harris MD LAB BODY FLUIDS A ND STOOLS ORDERABLES Final Result Performing Organization Address [facility]/ZIP Co de Phone Number JAILYN MARRERO [address] [facility] [place] [address] * Mycology (fungal) culture Pleural fluid Pleural (02/14/2021 10:54 AM CDT) Report Final Report: No fungus isolated JAILYN [facility] Comment:Testing performed by : [facility], [address] [place] [address]., [id number] Pleural fluid (Pleural) 02/14/2021 10:54 AM CDT 02/14/2021 2:03 PM CDT Narrative JAILYN [facility] - 03/15/2021 1:00 PM CDT Mycology cultures are held for 4 weeks. Ed Oconnor MD LAB MICROBIOLOGY - GENERAL [facility]H [facility] Final Result Performing Organization Address [facility] Co de Phone Number JAILYN [facility] [address] [facility] [place] [address] * Aerobic and anaerobic culture and gram stain Pleural fluid Chest, left (02/14/2021 10:54 AM CDT) Direct Specimen Exam Stain: Many polymorphonuclear leukocytes seen. No organisms seen. JAILYN [facility] Comment:Testing performed by : [facility], [address] [place] [address]., [id number] Report Final Report: No growth [facility] Comment:Testing performed by : [facility], [address] [place] [address]., [id number] Pleural fluid (Chest, left) 02/14/2021 10:54 AM CDT 02/14/2021 2:03 PM CDT Ed Oconnor MD LAB MICROBIOLOGY - GENERAL JOSH CALVO Final Result Performing Organization Address City/[facility]/ZIP Co de Phone Number JAILYN MARRERO 2 [place] [facility] Department [place] [address] * Lactate dehydrogenase, body fluid (02/14/2021 10:54 AM CDT) Specimen type, fld Pleural [facility] Comment:Testing performed by : [facility], [address] [place] [address]., [id number] Body site, fld Pleural fluid, left [facility] Comment:Testing performed by : [facility], [address] [place] [address]., [id number] LD, fld 162 Units/L [facility] Comment: The above specimen type is not cleared for use in this method by the FDA. Analytical characteristics have been validated by the performing laboratory. ??No reference range established - see interpretive comments. Interpretive Data Ratio of fluid to serum LD > or = 0.6 is indicative of exudate and < 0.6 of transudate. References: The Biochemistry of Body Fluids. ?? Association of Clinical Biochemists in [place]. May 2009; pp 1-36. Rahul Textbook of Clinical Chemistry and Molecular Diagnostics, Sixth Edition. Elsevier Press. 2018. Chapter 43, Body Fluids, p. 922 Current Interpretive Data was last revised 2019. Testing performed by: [facility], [address] [place] [address]., [id number] Fluid 02/14/2021 10:5 4 AM CDT 02/14/2021 2:08 PM CDT Ed Oconnor MD LAB BODY FLUIDS AND STOOLS JOSH CALVO Final Result JAILYN MARRERO 2 [place] [facility] Department [place] [address] * Cell count with reflex to differential, body fluid (02/14/2021 10:54 AM CDT) Specimen type, fld Pleural [facility] Body site, fld Pleural fluid, left [facility] Color, fld Straw [facility] Clarity, fld Clear [facility] Nucleated cells, fld 1,184 /cumm [facility] Comment: Interpretive Data Unless otherwise specified, the reference range and other method performance specifications have not been established for CSF/Body Fluid tests. ??The test results should be integrated into the clinical context for interpretation. Current interpretive data was last revised on 2019. RBC, fld <3,000 /cumm [facility] Fluid 02/14/2021 10:5 4 AM CDT 02/14/2021 12:10 PM CDT Ed Oconnor MD LAB BODY FLUIDS AND STOOLS JOSH CALVO Final Result [facility] 2 [place] [facility] Department [place] [address] * Glucose, body fluid (02/14/2021 10:54 AM CDT) Specimen type, fld Pleural [facility] Comment:Testing performed by : [facility], [address] [place] [address]., [id number] Body site, fld Pleural fluid, left [facility] Comment:Testing performed by : [facility], [address] [place] [address]., [id number] Glucose, fld 115 mg/dL [facility] Comment: The above specimen type is not cleared for use in this method by the FDA. Analytical characteristics have been validated by the performing laboratory. ??No reference range established - see interpretive comments. Interpretive Data Pleural - Glucose < 60 mg/dL is indicative of complicated parapneumonic effusions. Peritoneal - normally equivalent to plasma glucose. ?? Will be less than concurrent plasma value in peritoneal bacterial infections. Pericardial - Fluid to serum glucose ratio < 0.3 is indicative of bacterial infection. References: Rahul Textbook of Clinical Chemistry and Molecular Diagnostics, Sixth Edition. Elsevier Press. 2018. Chapter 43, Body Fluids, p. 925 Pleural effusions: Evaluation and Management. Helder Clin J Med 2005;72:854-72. [facility] Test directory, Body Fluid Reference Intervals and/or Interpretative Information. ??[email or web address] Current Interpretive Data was last revised 2019. Testing performed by: [facility], [address] [place] [address]., [id number] Fluid 02/14/2021 10:5 4 AM CDT 02/14/2021 2:08 PM CDT us Ed Oconnor MD LAB BODY FLUIDS AND STOOLS JOSH CALVO Final Result [facility] 2 [place] [facility] [place] [address] * pH, Pleural Fluid (02/14/2021 10:54 AM CDT) Body site, fld Pleural fluid, left [facility] Comment:Testing performed by : [facility], [address] [place] [address]., [id number] pH, fld 7.67 [facility] [place] Comment: The above specimen type is not cleared for use in this method by the FDA. Analytical characteristics have been validated by the performing laboratory. ??No reference range established - see interpretive comments. Interpretive Data Pleural - pH is approximately 7.64. pH <7.2 is indicative of complicated parapneumonic effusions. References: Rahul Textbook of Clinical Chemistry and Molecular Diagnostics, Sixth Edition. Elsevier Press. 2018. Chapter 43, Body Fluids, p. 925 Pleural effusions: Evaluation and Management. Helder Clin J Med 2005;72:854-72. Current Interpretive Data was last revised 2019. Testing performed by: [facility], [address] [place] [address]., [id number] Fluid 02/14/2021 10:5 4 AM CDT 02/14/2021 2:08 PM CDT us Ed Oconnor MD LAB BODY FLUIDS AND STOOLS JOSH CALVO Final Result Performing Organization Address City/[facility]/ZIP Co de Phone Number JAILYN [facility] [address] [place] [address] Department [place] [address] * eGFR (02/14/2021 10:01 AM CDT) Pathologist [facility] eGFR 109 mL/min/1.7 3 m2 JAILYN [facility] Comment: Interpretive Data Reference Interval Normal [...] was last reviewed 2020 Blood specimen (specimen) 02/14/2021 10:01 AM CDT 02/14/2021 10:04 AM CDT Fabio Timmons NP LAB BLOOD ORDERABLES Final Re sult JAILYN [facility] [address] Department [place] [address] * aPTT (02/14/2021 10:01 AM CDT) Pathologist [facility] aPTT 30 27 - 37 sec [facility] Comment: Interpretive Data Therapeutic heparin range: 60.0 - 94.0 seconds. Based on correlation with therapeutic heparin activity range of 0.3-0.7 Units/mL. Current interpretive data was last revised on 2020. Blood specimen (specimen) 02/14/2021 10:01 AM CDT 02/14/2021 10:04 AM CDT Linda Harris MD LAB BLOOD ORDERAB LES Final Result Performing Organization Address [facility]/ZIP Co de Phone Number [facility] 2 [facility] Department [place] [address] * Magnesium (02/14/2021 10:01 AM CDT) [facility] Magnesium 1.5 1.4 - 2.5 mg/dL [facility] Blood specimen (specimen) 02/14/2021 10:01 AM CDT 02/14/2021 10:04 AM CDT Sharad Mcdonnell MD LAB BLOOD ORDERABLES Final R esult Performing Organization Address [facility] Co de Phone Number [facility] 2 [facility] Department [place] [employer] [address] * (ABNORMAL) Basic metabolic panel (02/14/2021 10:01 AM CDT) [facility] Sodium 138 135 - 145 mmol/L [facility] Potassium, pl 3.6 3.3 - 4.9 mmol/L [facility] Chloride 103 97 - 110 mmol/L [facility] CO2 26 22 - 32 mmol/L [facility] Anion gap 9 2 - 15 mmol/L [facility] BUN 5(L) 8 - 25 mg/dL [facility] Creatinine 0.50(L) 0.60 - 1.10 mg/dL [facility] Glucose 117 70 - 199 mg/dL [facility] Comment: Interpretive Data Fasting glucose >/= [...] interpretive data was last revised 2017. Calcium 7.6(L) 8.5 - 10.3 mg/dL [facility] Blood specimen (specimen) 02/14/2021 10:01 AM CDT 02/14/2021 10:04 AM CDT Fabio Timmons NP LAB BLOOD ORDERABLES Final Re sult Performing Organization Address [facility] Co de Phone Number [address] Department [place] [address] * (ABNORMAL) POCT glucose (02/14/2021 8:38 AM CDT) Glucose, POC 120(H) 70 - 110 mg/dL [facility] Blood specimen (specimen) 02/14/2021 8:38 AM CDT 02/14/2021 8:38 AM CDT Linda Harris MD LAB POCT ORDERABL ES - DEVICE Final Result Performing Organization Address [facility] Co de Phone Number [facility] 2 [facility] [place] [employer] [address] * (ABNORMAL) POCT glucose (02/13/2021 10:45 PM CDT) Glucose, POC 132(H) 70 - 110 mg/dL [facility] Blood specimen (specimen) 02/13/2021 10:45 PM CDT 02/13/2021 10:45 PM CDT Linda Harris MD LAB POCT ORDERABL ES - DEVICE Final Result Performing Organization Address [facility] Co de Phone Number [facility] [address] [place] [address] * (ABNORMAL) POCT glucose (02/13/2021 12:15 PM CDT) Glucose, POC 128(H) 70 - 110 mg/dL [facility] Blood specimen (specimen) 02/13/2021 12:15 PM CDT 02/13/2021 12:15 PM CDT Linda Harris MD LAB POCT ORDERABL ES - DEVICE Final Result Performing Organization Address [facility] Co de Phone Number [facility] [address] [place] [address] * (ABNORMAL) POCT glucose (02/13/2021 8:33 AM CDT) Glucose, POC 113(H) 70 - 110 mg/dL [facility] Blood specimen (specimen) 02/13/2021 8:33 AM CDT 02/13/2021 8:33 AM CDT Linda Harris MD LAB POCT ORDERABL ES - DEVICE Final Result Performing Organization Address [facility] Co de Phone Number [facility] [address] [place] [address] * eGFR (02/13/2021 6:27 AM CDT) eGFR 103 mL/min/1.7 3 m2 [facility] Comment: Interpretive Data Reference Interval Normal [...] was last reviewed 2020 Blood specimen (specimen) 02/13/2021 6:27 AM CDT 02/13/2021 6:30 AM CDT us Fabio Timmons ASSISTANT DIRECTOR OF NURSING LAB BLOOD ORDERABLES Final Re sult [facility] [address] [place] [facility] Department [place] [address] * (ABNORMAL) CBC without differential (02/13/2021 6:27 AM CDT) WBC 20.1(H) 3.8 - 9.9 K/cumm [facility] Hgb 9.0(L) 11.9 - 15.5 g/dL [facility] Hct 27.1(L) 35.6 - 45.5 % [facility] Plt 112(L) 150 - 400 K/cumm [facility] MPV 10.4 9.1 - 12.3 fL [facility] RBC 3.03(L) 3.90 - 5.20 M/cumm [facility] MCV 89.4 81.3 - 96.4 fL [facility] MCH 29.7 27.1 - 33.3 pg [facility] MCHC 33.2 32.3 - 35.7 g/dL [facility] RDW CV 13.5 11.1 - 14.9 % [facility] RDW SD 44.2 35.7 - 48.1 fL [facility] Blood specimen (specimen) 02/13/2021 6:27 AM CDT 02/13/2021 6:30 AM CDT Fabio Timmons NP LAB BLOOD ORDERABLES Final Re sult [facility] [address] Department [place] [address] * (ABNORMAL) Basic metabolic panel (02/13/2021 6:27 AM CDT) Sodium 139 135 - 145 mmol/L [facility] Potassium, pl 2.6(C) 3.3 - 4.9 mmol/L [facility] Comment:Critical Result call ed by [email or web address] at 2021-02-13 07:38:50. Result Read Back by LIDA SULTANA RN Chloride 101 97 - 110 mmol/L [facility] CO2 29 22 - 32 mmol/L [facility] Anion gap 9 2 - 15 mmol/L [facility] BUN 5(L) 8 - 25 mg/dL [facility] Creatinine 0.60 0.60 - 1.10 mg/dL [facility] Glucose 127 70 - 199 mg/dL [facility] Comment: Interpretive Data Fasting glucose >/= [...] interpretive data was last revised 2017. Calcium 8.0(L) 8.5 - 10.3 mg/dL [facility] Blood specimen (specimen) 02/13/2021 6:27 AM CDT 02/13/2021 6:30 AM CDT us Fabio Timmons NP LAB BLOOD ORDERABLES Final Re sult [facility] [place] [address] [facility] Department [place] [address] * (ABNORMAL) POCT glucose (02/12/2021 9:53 PM CDT) Glucose, POC 113(H) 70 - 110 mg/dL [facility] Blood specimen (specimen) 02/12/2021 9:53 PM CDT 02/12/2021 9:53 PM CDT us Linda Harris MD LAB POCT ORDERABL ES - DEVICE Final Result Performing Organization Address City/[facility] Co de Phone Number [facility] [place] [address] [facility] Department [place] [address] * CT Abdomen Pelvis W Contrast (02/12/2021 9:30 AM CDT) Anatomical Region Laterality Modality Body N/A Computed Tomogra phy 02/12/2021 1:44 PM CDT Impressions 02/12/2021 1:44 PM CDT 1. Several mildly to moderately dilated small bowel loops without discrete transition point to diagnose mechanical obstruction on the basis of adhesions. ??There is one distorted bowel loop in the pelvis with associated mild mesenteric distortion, but no clear evidence that this is associated with a discrete obstruction point or obvious internal hernia. ??The possibility of partial obstruction associated with multiple adhesions is always a possibility with complicated postsurgical anatomy. 2. Post left hemicolectomy with moderate amount of residual colorectal stool. 3. ??Diffuse mesenteric edema and trace ascites. 4. ??Stomach decompressed by a nasogastric tube with mild gastric mucosal hyperenhancement, which could reflect gastritis. ?? 5. ??Bibasilar pneumonia with small to moderate bilateral pleural effusions. 6. ??Diffuse aortic atherosclerosis with mild celiac and 50% superior mesenteric artery origin narrowings. ??No high-grade visceral artery stenosis or thrombosis. 7. ??Small nonobstructing left renal stones. This report was created using voice recognition software. Occasional wrong-word or sound-alike substitutions may have occurred due to the inherent limitations of voice recognition software. Read the above report carefully and recognize, using context, where substitutions may have occurred. Electronically signed by: Susi Nguyen M.D. Narrative 02/12/2021 1:44 PM CDT EXAMINATION: CT of the abdomen and pelvis with IV contrast DATE/TIME: 02/12/2021 9:10 AM. HISTORY/INDICATION: Abdominal pain, acute, nonlocalized TECHNIQUE: Helical axial imaging of the abdomen and pelvis, from lung bases to symphysis pubis, was performed on a multidetector row scanner and reconstructed at 4 mm contiguous intervals, following intravenous nonionic contrast (Optiray 350 100 mL). COMPARISON: 02/10/2021 chest x-ray, 02/06/[address] FINDINGS: Lower chest: Lung bases examination is limited by breathing motion. Right middle lobe extensive patchy airspace opacity and bilateral lower lobe consolidations are present, compatible with pneumonia, as seen on recent chest radiograph. ??Small to moderate bilateral posterior layering pleural effusions are present. Heart size normal. No visualized coronary calcifications. No pericardial effusion. Liver: Normal size and enhancement. ??No focal lesions. Spleen: Normal. Pancreas: Normal; fatty atrophy of the uncinate process unchanged. Gallbladder: Normal. ??No biliary dilatation. Kidneys: A few nonobstructing left-sided renal stones are present, the largest measuring 4 mm in the left lower pole. ??The kidneys are otherwise normal. ??No hydronephrosis is present. Adrenals: Normal. Alimentary tract: Changes of multiple prior abdominal surgeries, including left hemicolectomy with transverse colon to rectal anastomosis and 1 or 2 small bowel resections with anastomotic staple lines are again seen. ??The stomach is decompressed by a nasogastric tube, and there is suggestion of diffuse gastric mucosal hyperenhancement, which could reflect gastritis. ??There are several mildly to moderately dilated small bowel loops, some containing fluid and some containing feculent material more distally, suggesting small bowel stasis, and some containing air and fluid with air-fluid levels in the left abdomen and mid abdomen. ??No discrete transition point to confirm mechanical small bowel obstruction is clearly identified, but the patient's small bowel is difficult to follow due to postsurgical distortions, so partial obstructions related to multiple adhesions are certainly possible. ??There is one relatively decompressed, distorted small bowel loop associated with mild distortion of the mesentery in the pelvis at table position 327.5 through 347.5 on the axial images. ??Mild mesenteric distortion consists of relatively abrupt right angle turn of the peripheral superior mesenteric vein, which followed a straight downward course on the older study. ??The distorted bowel loop is folded upon itself posterior to the other bowel loops. ??However, it is unclear that this loop is associated with any point of mechanical obstruction. ??No mesenteric twisting is identified, and the mesenteric vessels remain patent. ??A moderate amount of stool is present throughout the remaining colon, and gas and stool are present in the rectum. Peritoneum, mesentery and retroperitoneum: Trace ascitic fluid is present in the abdomen and pelvis, and mild mesenteric edema is present. ??Mild diffuse body wall edema is present. ??Given the diffuse nature of the mesenteric edema, this is nonspecific finding, which could be related to anasarca. ??No intraperitoneal free air is seen. Vascular: Diffuse atherosclerotic vascular calcification of the aortoiliac system is unchanged. ??Probably some mild narrowing at the celiac axis origin and moderate, probably 50% narrowing at the superior mesenteric artery origin. ??Both of these vessels remain patent. ??The inferior mesenteric artery is patent. ??Atherosclerotic calcifications are present at the renal artery origins, likely with some degree of narrowing, not well assessed on non-arteriographic study. ??No visceral vessel thrombosis is identified. Pelvis: Normal bladder. ??No abnormal mass or adenopathy. Stable changes of hysterectomy. Abdominal wall: No abdominal wall hernias. ??Mild diffuse body wall edema. ??Rim calcified right buttock injection granuloma. Bones: No acute fracture or suspicious focal bone lesion. Procedure Note Susi Nguyen MD - 02/12/2021 EXAMINATION: CT of the abdomen and pelvis with IV contrast DATE/TIME: 02/12/2021 9:10 AM. HISTORY/INDICATION: Abdominal pain, acute, nonlocalized TECHNIQUE: Helical axial imaging of the abdomen and pelvis, from lung bases to symphysis pubis, was performed on a multidetector row scanner and reconstructed at 4 mm contiguous intervals, following intravenous nonionic contrast (Optiray 350 100 mL). COMPARISON: 02/10/2021 chest x-ray, 02/06/[address] FINDINGS: Lower chest: Lung bases examination is limited by breathing motion. Right middle lobe extensive patchy airspace opacity and bilateral lower lobe consolidations are present, compatible with pneumonia, as seen on recent chest radiograph. Small to moderate bilateral posterior layering pleural effusions are present. Heart size normal. No visualized coronary calcifications. No pericardial effusion. Liver: Normal size and enhancement. No focal lesions. Spleen: Normal. Pancreas: Normal; fatty atrophy of the uncinate process unchanged. Gallbladder: Normal. No biliary dilatation. Kidneys: A few nonobstructing left-sided renal stones are present, the largest measuring 4 mm in the left lower pole. The kidneys are otherwise normal. No hydronephrosis is present. Adrenals: Normal. Alimentary tract: Changes of multiple prior abdominal surgeries, including left hemicolectomy with transverse colon to rectal anastomosis and 1 or 2 small bowel resections with anastomotic staple lines are again seen. The stomach is decompressed by a nasogastric tube, and there is suggestion of diffuse gastric mucosal hyperenhancement, which could reflect gastritis. There are several mildly to moderately dilated small bowel loops, some containing fluid and some containing feculent material more distally, suggesting small bowel stasis, and some containing air and fluid with air-fluid levels in the left abdomen and mid abdomen. No discrete transition point to confirm mechanical small bowel obstruction is clearly identified, but the patient's small bowel is difficult to follow due to postsurgical distortions, so partial obstructions related to multiple adhesions are certainly possible. There is one relatively decompressed, distorted small bowel loop associated with mild distortion of the mesentery in the pelvis at table position 327.5 through 347.5 on the axial images. Mild mesenteric distortion consists of relatively abrupt right angle turn of the peripheral superior mesenteric vein, which followed a straight downward course on the older study. The distorted bowel loop is folded upon itself posterior to the other bowel loops. However, it is unclear that this loop is associated with any point of mechanical obstruction. No mesenteric twisting is identified, and the mesenteric vessels remain patent. A moderate amount of stool is present throughout the remaining colon, and gas and stool are present in the rectum. Peritoneum, mesentery and retroperitoneum: Trace ascitic fluid is present in the abdomen and pelvis, and mild mesenteric edema is present. Mild diffuse body wall edema is present. Given the diffuse nature of the mesenteric edema, this is nonspecific finding, which could be related to anasarca. No intraperitoneal free air is seen. Vascular: Diffuse atherosclerotic vascular calcification of the aortoiliac system is unchanged. Probably some mild narrowing at the celiac axis origin and moderate, probably 50% narrowing at the superior mesenteric artery origin. Both of these vessels remain patent. The inferior mesenteric artery is patent. Atherosclerotic calcifications are present at the renal artery origins, likely with some degree of narrowing, not well assessed on non-arteriographic study. No visceral vessel thrombosis is identified. Pelvis: Normal bladder. No abnormal mass or adenopathy. Stable changes of hysterectomy. Abdominal wall: No abdominal wall hernias. Mild diffuse body wall edema. Rim calcified right buttock injection granuloma. Bones: No acute fracture or suspicious focal bone lesion. IMPRESSION: 1. Several mildly to moderately dilated small bowel loops without discrete transition point to diagnose mechanical obstruction on the basis of adhesions. There is one distorted bowel loop in the pelvis with associated mild mesenteric distortion, but no clear evidence that this is associated with a discrete obstruction point or obvious internal hernia. The possibility of partial obstruction associated with multiple adhesions is always a possibility with complicated postsurgical anatomy. 2. Post left hemicolectomy with moderate amount of residual colorectal stool. 3. Diffuse mesenteric edema and trace ascites. 4. Stomach decompressed by a nasogastric tube with mild gastric mucosal hyperenhancement, which could reflect gastritis. 5. Bibasilar pneumonia with small to moderate bilateral pleural effusions. 6. Diffuse aortic atherosclerosis with mild celiac and 50% superior mesenteric artery origin narrowings. No high-grade visceral artery stenosis or thrombosis. 7. Small nonobstructing left renal stones. This report was created using voice recognition software. Occasional wrong-word or sound-alike substitutions may have occurred due to the inherent limitations of voice recognition software. Read the above report carefully and recognize, using context, where substitutions may have occurred. Electronically signed by: Susi Nguyen M.D. Ivonne Thao MD IMG CT PROCEDURES Final Result * eGFR (02/12/2021 5:12 AM CDT) eGFR 103 mL/min/1.7 3 m2 [facility] [place] Comment: Interpretive Data Reference Interval Normal ?>/= [...] was last reviewed 2020 Blood specimen (specimen) 02/12/2021 5:12 AM CDT 02/12/2021 5:14 AM CDT Fabio Timmons ASSISTANT DIRECTOR OF NURSING LAB BLOOD ORDERABLES Final Re sult [facility] [address] [place] [address] * (ABNORMAL) Basic metabolic panel (02/12/2021 5:12 AM CDT) Pathologist [facility] Sodium 137 135 - 145 mmol/L [facility] Potassium, pl 3.6 3.3 - 4.9 mmol/L [facility] Chloride 103 97 - 110 mmol/L [facility] CO2 24 22 - 32 mmol/L [facility] Anion gap 10 2 - 15 mmol/L [facility] BUN 8 8 - 25 mg/dL [facility] Creatinine 0.60 0.60 - 1.10 mg/dL [facility] Glucose 108 70 - 199 mg/dL [facility] Comment: Interpretive Data Fasting glucose >/= [...] interpretive data was last revised 2017. Calcium 7.9(L) 8.5 - 10.3 mg/dL [facility] Blood specimen (specimen) 02/12/2021 5:12 AM CDT 02/12/2021 5:14 AM CDT us Fabio Timmons NP LAB BLOOD ORDERABLES Final Re sult [address] Department [place] [address] * (ABNORMAL) POCT glucose (02/12/2021 12:24 AM CDT) Glucose, POC 118(H) 70 - 110 mg/dL [facility] Blood specimen (specimen) 02/12/2021 12:24 AM CDT 02/12/2021 12:24 AM CDT us Linda Harris MD LAB POCT ORDERABL ES - DEVICE Final Result [facility] 2 [facility] Department [place] [address] * (ABNORMAL) POCT glucose (02/11/2021 3:52 PM CDT) Glucose, POC 124(H) 70 - 110 mg/dL [facility] Blood specimen (specimen) 02/11/2021 3:52 PM CDT 02/11/2021 3:52 PM CDT us Linda Harris MD LAB POCT ORDERABL ES - DEVICE Final Result [facility] [address] Department [place] [address] * XR Abdomen Erect and or Decubitus 2 Views (02/11/2021 5:37 AM CDT) Anatomical Region Laterality Modality Body, Abdomen N/A Computed Radiogr aphy 02/11/2021 11:0 0 AM CDT Impressions 02/11/2021 11:00 AM CDT 1. ??NONSPECIFIC BOWEL PATTERN, WHICH MAY REPRESENT ILEUS OR IMPROVING SMALL BOWEL OBSTRUCTION POST NASOGASTRIC TUBE PLACEMENT. 2. ??MULTIFOCAL PNEUMONIA, PARTIALLY IMAGED, GROSSLY UNCHANGED FROM 02/10/2021. This report was created using voice recognition software. Occasional wrong-word or sound-alike substitutions may have occurred due to the inherent limitations of voice recognition software. Read the above report carefully and recognize, using context, where substitutions may have occurred. Electronically signed by: Susi Nguyen M.D. Narrative 02/11/2021 11:00 AM CDT EXAMINATION: Abdomen 2 views (supine and erect) DATE/TIME: 02/11/2021 5:15 AM. HISTORY/INDICATION: Evaluate small-bowel distension COMPARISON: 02/09/2021 abdominal series and 02/10/2021 chest x-ray FINDINGS: There are several dilated, gas-filled small bowel loops in the upper and mid abdomen. ??There is persistent moderate amount of right colonic stool. ??There has been interval increase in gas in the transverse and proximal descending colon, and there is persistent stool at the level of an anastomotic staple line near the rectum. The stomach is mildly gas distended is well; a nasogastric tube has been placed, with tip in the gastric body. ??There is less fluid in the dilated small bowel loops, with no air-fluid levels on upright film, and the visualized small bowel loops may be slightly smaller in caliber. ??The pattern is nonspecific, and may represent ileus or possibly resolving small bowel obstruction, given the increased amount of distal colonic gas. ??No intraperitoneal free air is seen on upright study. ??Multifocal pneumonia is incompletely evaluated on this study, but similar in appearance in its visualized portions, with right greater than left bilateral lower lobe patchy infiltrates and denser consolidation in the right upper lobe, partially imaged on this study. Procedure Note Susi Nguyen MD - 02/11/2021 EXAMINATION: Abdomen 2 views (supine and erect) DATE/TIME: 02/11/2021 5:15 AM. HISTORY/INDICATION: Evaluate small-bowel distension COMPARISON: 02/09/2021 abdominal series and 02/10/2021 chest x-ray FINDINGS: There are several dilated, gas-filled small bowel loops in the upper and mid abdomen. There is persistent moderate amount of right colonic stool. There has been interval increase in gas in the transverse and proximal descending colon, and there is persistent stool at the level of an anastomotic staple line near the rectum. The stomach is mildly gas distended is well; a nasogastric tube has been placed, with tip in the gastric body. There is less fluid in the dilated small bowel loops, with no air-fluid levels on upright film, and the visualized small bowel loops may be slightly smaller in caliber. The pattern is nonspecific, and may represent ileus or possibly resolving small bowel obstruction, given the increased amount of distal colonic gas. No intraperitoneal free air is seen on upright study. Multifocal pneumonia is incompletely evaluated on this study, but similar in appearance in its visualized portions, with right greater than left bilateral lower lobe patchy infiltrates and denser consolidation in the right upper lobe, partially imaged on this study. IMPRESSION: 1. NONSPECIFIC BOWEL PATTERN, WHICH MAY REPRESENT ILEUS OR IMPROVING SMALL BOWEL OBSTRUCTION POST NASOGASTRIC TUBE PLACEMENT. 2. MULTIFOCAL PNEUMONIA, PARTIALLY IMAGED, GROSSLY UNCHANGED FROM 02/10/2021. This report was created using voice recognition software. Occasional wrong-word or sound-alike substitutions may have occurred due to the inherent limitations of voice recognition software. Read the above report carefully and recognize, using context, where substitutions may have occurred. Electronically signed by: Susi Nguyen M.D. us Ivonne Thao MD IMG XR PROCEDURES Final Result * (ABNORMAL) Iron profile w/ IBC (02/11/2021 5:11 AM CDT) Iron 10(L) 35 - 145 mcg/dL [facility] Comment:Testing performed by : [facility], [address] [place] [address]., [id number] TIBC 126(L) 250 - 400 mcg/dL [facility] Comment:Testing performed by : [facility], [address] [place] [address]., [id number] Transferrin saturation 8(L) 20 - 50 % [facility] Comment:Testing performed by : [facility], [address] [place] [address]., [id number] Blood specimen (specimen) 02/11/2021 5:11 AM CDT 02/11/2021 1:29 PM CDT us Vale Vasquez ASSISTANT DIRECTOR OF NURSING LAB BLOOD ORDERABLES Final Result Performing Organization Address City/State/[facility] Co de Phone Number [facility] [address] [facility] Department [place] [address] * eGFR (02/11/2021 5:11 AM CDT) eGFR 83 mL/min/1.7 3 m2 [facility] Comment: Interpretive Data Reference Interval Normal [...] was last reviewed 2020 Blood specimen (specimen) 02/11/2021 5:11 AM CDT 02/11/2021 5:14 AM CDT us Fabio Timmons NP LAB BLOOD ORDERABLES Final Re sult [facility] [address] Department [place] [address] * (ABNORMAL) CBC without differential (02/11/2021 5:11 AM CDT) WBC 25.7(H) 3.8 - 9.9 K/cumm [facility] Hgb 7.8(L) 11.9 - 15.5 g/dL [facility] Hct 23.7(L) 35.6 - 45.5 % [facility] Plt 135(L) 150 - 400 K/cumm [facility] MPV 10.8 9.1 - 12.3 fL [facility] RBC 2.61(L) 3.90 - 5.20 M/cumm [facility] MCV 90.8 81.3 - 96.4 fL [facility] MCH 29.9 27.1 - 33.3 pg [facility] MCHC 32.9 32.3 - 35.7 g/dL [facility] RDW CV 13.2 11.1 - 14.9 % [facility] PW RDW SD 43.8 35.7 - 48.1 fL [facility] Blood specimen (specimen) 02/11/2021 5:11 AM CDT 02/11/2021 5:14 AM CDT us Fabio Timmons ASSISTANT DIRECTOR OF NURSING LAB BLOOD ORDERABLES Final Re sult Performing Organization Address City/[facility]/ZIP Co de Phone Number [facility] [address] [facility] Department [place] [address] * (ABNORMAL) Basic metabolic panel (02/11/2021 5:11 AM CDT) Pathologist [facility] Sodium 138 135 - 145 mmol/L [facility] PW Potassium, pl 3.2(L) 3.3 - 4.9 mmol/L [facility] Chloride 102 97 - 110 mmol/L [facility] PW CO2 28 22 - 32 mmol/L [facility] Anion gap 8 2 - 15 mmol/L [facility] BUN 16 8 - 25 mg/dL [facility] Creatinine 0.80 0.60 - 1.10 mg/dL [facility] Glucose 118 70 - 199 mg/dL [facility] Comment: Interpretive Data Fasting glucose >/= [...] interpretive data was last revised 2017. Calcium 8.2(L) 8.5 - 10.3 mg/dL [facility] Blood specimen (specimen) 02/11/2021 5:11 AM CDT 02/11/2021 5:14 AM CDT us Fabio Timmons ASSISTANT DIRECTOR OF NURSING LAB BLOOD ORDERABLES Final Re sult Performing Organization Address [facility]/ZIP Co de Phone Number [facility] [address] [facility] Department [place] [address] * (ABNORMAL) Vancomycin level trough (02/10/2021 8:03 PM CDT) Vancomycin trough 8.8(L) 10.0 - 20.0 mcg/mL [facility] Blood specimen (specimen) 02/10/2021 8:03 PM CDT 02/10/2021 8:05 PM CDT Linda Harris MD LAB BLOOD ORDERAB LES Final Result [address] Department [place] [address] * POCT glucose (02/10/2021 5:20 PM CDT) Glucose, POC 105 70 - 110 mg/dL [facility] Blood specimen (specimen) 02/10/2021 5:20 PM CDT 02/10/2021 5:20 PM CDT us Linda Harris MD LAB POCT ORDERABL ES - DEVICE Final Result Performing Organization Address City/[facility]/ZIP Co de Phone Number [address] [place] [address] * POCT glucose (02/10/2021 12:35 PM CDT) Glucose, POC 110 70 - 110 mg/dL [facility] Blood specimen (specimen) 02/10/2021 12:35 PM CDT 02/10/2021 12:35 PM CDT Linda Harris MD LAB POCT ORDERABL ES - DEVICE Final Result Performing Organization Address City/[facility] Co de Phone Number [address] [place] [address] * XR Chest Pa Lateral 2 Views (02/10/2021 7:26 AM CDT) Anatomical Region Laterality Modality Body, Chest N/A Computed Radiogr aphy 02/10/2021 8:17 AM CDT Impressions 02/10/2021 8:17 AM CDT Interval worsening in bilateral multifocal pneumonia with new pneumonia at the left lung base. Electronically signed by: Kennedy Lindsay M.D. Narrative 02/10/2021 8:17 AM CDT EXAMINATION: Chest x ray, pa and lateral DATE: ??02/10/2021 7:15 AM HISTORY: Cough COMPARISON: 02/08/2021. ?? FINDINGS: ?? Unchanged diffuse parenchymal opacification involving the right lung most pronounced within the right upper lobe inferiorly. Interval development of parenchymal opacification left lung base. Heart size normal. ??Calcification of the aorta. ??Nasogastric tube courses into the stomach. ??No pneumothorax. ??Minimal bilateral pleural effusions. ??Bones are demineralized. Procedure Note Kennedy Lindsay MD - 02/10/2021 EXAMINATION: Chest x ray, pa and lateral DATE: 02/10/2021 7:15 AM HISTORY: Cough COMPARISON: 02/08/2021. FINDINGS: Unchanged diffuse parenchymal opacification involving the right lung most pronounced within the right upper lobe inferiorly. Interval development of parenchymal opacification left lung base. Heart size normal. Calcification of the aorta. Nasogastric tube courses into the stomach. No pneumothorax. Minimal bilateral pleural effusions. Bones are demineralized. IMPRESSION: Interval worsening in bilateral multifocal pneumonia with new pneumonia at the left lung base. Electronically signed by: Kennedy Lindsay M.D. us Jet Cheung MD IMG XR PROCEDURES Final Result * (ABNORMAL) POCT glucose (02/10/2021 5:56 AM CDT) Glucose, POC 126(H) 70 - 110 mg/dL [facility] Blood specimen (specimen) 02/10/2021 5:56 AM CDT 02/10/2021 5:56 AM CDT Linda Harris MD LAB POCT ORDERABL ES - DEVICE Final Result [facility] 2 [facility] [place] [address] * (ABNORMAL) POCT glucose (02/10/2021 4:16 AM CDT) Glucose, POC 184(H) 70 - 110 mg/dL [facility] Blood specimen (specimen) 02/10/2021 4:16 AM CDT 02/10/2021 4:16 AM CDT us Linda Harris MD LAB POCT ORDERABL ES - DEVICE Final Result Performing Organization Address [facility] de Phone Number [facility] 2 [facility] [place] [address] * (ABNORMAL) POCT glucose (02/10/2021 3:34 AM CDT) Glucose, POC 65(L) 70 - 110 mg/dL [facility] Blood specimen (specimen) 02/10/2021 3:34 AM CDT 02/10/2021 3:34 AM CDT us Linda Harris MD LAB POCT ORDERABL ES - DEVICE Final Result Performing Organization Address [facility] de Phone Number [facility] 2 [facility] [place] [address] * eGFR (02/10/2021 2:37 AM CDT) eGFR 46 mL/min/1.7 3 m2 [facility] Comment: Interpretive Data Reference Interval Normal [...] was last reviewed 2020 Blood specimen (specimen) 02/10/2021 2:37 AM CDT 02/10/2021 2:40 AM CDT us Fabio Timmons ASSISTANT DIRECTOR OF NURSING LAB BLOOD ORDERABLES Final Re sult [facility] [address] [facility] Department [place] [address] * (ABNORMAL) CBC without differential (02/10/2021 2:37 AM CDT) WBC 14.8(H) 3.8 - 9.9 K/cumm [facility] Hgb 8.0(L) 11.9 - 15.5 g/dL [facility] Hct 24.7(L) 35.6 - 45.5 % [facility] Plt 186 150 - 400 K/cumm [facility] MPV 11.5 9.1 - 12.3 fL [facility] RBC 2.69(L) 3.90 - 5.20 M/cumm [facility] MCV 91.8 81.3 - 96.4 fL [facility] MCH 29.7 27.1 - 33.3 pg [facility] MCHC 32.4 32.3 - 35.7 g/dL [facility] RDW CV 13.2 11.1 - 14.9 % [facility] RDW SD 44.1 35.7 - 48.1 fL [facility] Blood specimen (specimen) 02/10/2021 2:37 AM CDT 02/10/2021 2:40 AM CDT Narrative [facility] - 02/10/2021 3:02 AM CDT while on enoxaparin. us Fabio Timmons NP LAB BLOOD ORDERABLES Final Re sult [facility] [address] Department [place] [address] * (ABNORMAL) Basic metabolic panel (02/10/2021 2:37 AM CDT) Sodium 133(L) 135 - 145 mmol/L [facility] Potassium, pl 4.7 3.3 - 4.9 mmol/L [facility] Chloride 98 97 - 110 mmol/L [facility] CO2 25 22 - 32 mmol/L [facility] Anion gap 10 2 - 15 mmol/L [facility] BUN 37(H) 8 - 25 mg/dL [facility] Creatinine 1.30(H) 0.60 - 1.10 mg/dL [facility] Glucose 66(C) 70 - 199 mg/dL [facility] Comment: Critical Result called by [email or web address] at 2021-02-10 03:25:48. Result Read Back by Eleanor Gary RN Interpretive Data Fasting glucose >/= 126 mg/dl [...] interpretive data was last revised 2017. Calcium 8.2(L) 8.5 - 10.3 mg/dL [facility] Blood specimen (specimen) 02/10/2021 2:37 AM CDT 02/10/2021 2:40 AM CDT us Fabio Timmons ASSISTANT DIRECTOR OF NURSING LAB BLOOD ORDERABLES Final Re sult Performing Organization Address [facility] Co de Phone Number [facility] 2 [facility] [place] [address] * (ABNORMAL) Magnesium (02/10/2021 2:37 AM CDT) Magnesium 2.6(H) 1.4 - 2.5 mg/dL [facility] Blood specimen (specimen) 02/10/2021 2:37 AM CDT 02/10/2021 2:40 AM CDT Sharad Mcdonnell MD LAB BLOOD ORDERABLES Final R esult Performing Organization Address [facility] Co de Phone Number [facility] 2 [facility] Department [place] [address] * XR Kub (02/09/2021 7:10 PM CDT) Anatomical Region Laterality Modality Body, Abdomen N/A Computed Radiogr aphy 02/10/2021 8:02 AM CDT Impressions 02/10/2021 8:02 AM CDT FINDINGS/IMPRESSION: Interval placement of an NG tube with the distal tip overlying the stomach and the sidehole just below the gastroesophageal junction. ??Slight decrease in gaseous distention of a loop of transverse colon. ??The lower half of the abdomen and pelvis are not included. ??A preliminary report was provided by the teleradiologist oncologist at the time of the study. Electronically signed by: Reena Carranza M.D. Narrative 02/10/2021 8:02 AM CDT EXAMINATION: ??Abdomen 1 view DATE: 02/09/2021 7:00 PM HISTORY: NG tube placement COMPARISON: ??Exam from earlier the same day at 344. ?? Procedure Note Reena Carranza MD - 02/10/2021 EXAMINATION: Abdomen 1 view DATE: 02/09/2021 7:00 PM HISTORY: NG tube placement COMPARISON: Exam from earlier the same day at 344. IMPRESSION: FINDINGS/IMPRESSION: Interval placement of an NG tube with the distal tip overlying the stomach and the sidehole just below the gastroesophageal junction. Slight decrease in gaseous distention of a loop of transverse colon. The lower half of the abdomen and pelvis are not included. A preliminary report was provided by the teleradiologist oncologist at the time of the study. Electronically signed by: Reena Carranza M.D. Sharad Mcdonnell MD IMG XR PROCEDURES Final Resu lt * Strep pneumoniae antigen, urine Urine (02/09/2021 6:06 PM CDT) S. pneumoniae Ag Negative Negative [facility] Comment:Testing performed by : [facility], [address] [place] [address]., [id number] Urine 02/09/2021 6:06 PM CDT 02/09/2021 10:18 PM CDT Fabio Timmons NP LAB MICROBIOLOGY - GENERAL OR DERABLES Final Result [facility] [address] Department [place] [address] * Legionella antigen Urine (02/09/2021 6:06 PM CDT) Legionella Ag Negative Negative [facility] Comment: Interpretive Data This test detects only Legionella pneumophila serogroup 1 antigen. ?? Current interpretive data was last revised on 2019. Testing performed by: [facility], [address] [place] [address]., [address] Urine 02/09/2021 6:06 PM CDT 02/09/2021 10:18 PM CDT Fabio Timmons NP LAB MICROBIOLOGY - GENERAL OR DERABLES Final Result [facility] [address] [facility] Department [place] [address] * (ABNORMAL) Drugs of Abuse Screen, Urine without Confirmation (02/09/2021 6:06 PM CDT) [facility] Amphetamine, ur Not Detected CutOff 500ng/mL [facility] Comment: Interpretive Data - Amphetamines: ??Samples containing greater than 500 ng/mL d-methamphetamine ??or other cross-reacting amphetamine compounds are reported as positive. ??Amphetamine immunoassays are subject to significant false positive rates due to cross-reactivity of non-amphetamine drugs. Current Interpretive Data was last reviewed 2018. Barbiturates, ur Not Detected CutOff 200ng/mL [facility] Comment: Interpretive Data - Barbiturates: ??Samples containing greater than 200 ng/mL secobarbital or other cross-reacting barbiturate compounds are reported as positive. ??False positive and false negative results are possible. Current Interpretive Data was last reviewed 2018. Benzodiazepines, ur Not Detected CutOff 100ng/mL [facility] Comment: Interpretive Data - Benzodiazepines: ??Samples containing greater than 100 ng/mL nordiazepam or other cross-reacting compounds are reported as positive. ?? False positive and false negative results are possible. ?? Current Interpretive Data was last reviewed 2018. Cannabinoids, ur Detected(A) CutOff 50 ng/mL [facility] Comment: Interpretive Data - Cannabinoids: ??Samples containing greater than 50 ng/mL delta-9 THC -COOH or other cross-reacting compounds are reported as positive. ??False positive and false negative results are possible. ?? Current Interpretive Data was last reviewed 2018. Cocaine, ur Not Detected CutOff 150ng/mL [facility] Comment: Interpretive Data - Cocaine: ??Samples containing greater than 150 ng/mL benzoylecgonine or other cross-reacting compounds are reported as positive. False positive and false negative results are possible. Current Interpretive Data was last reviewed 2018. Fentanyl, Ur Not Detected Cutoff 1 ng/mL [facility] Comment: Interpretive Data - Fentanyls: ??Samples containing greater than 1 ng/mL fentanyl or other cross-reacting fentanyl compounds are reported as detected. ??False positive and false negative results are possible. Current Interpretive Data was last reviewed 2019. Methadone, ur Not Detected CutOff 300ng/mL [facility] Comment: Interpretive Data - Methadone: ??Samples containing greater than 300 ng/mL d,l-methadone or other cross-reacting compounds are reported as positive. ??False positive and false negative results are possible. Current Interpretive Data was last reviewed 2018. Opiates, ur Not Detected CutOff 300ng/mL [facility] Comment: Interpretive Data - Opiates: ??Samples containing greater than 300 ng/mL morphine or other cross-reacting compounds are reported as positive. ??False positive and false negative results are possible. Current Interpretive Data was last reviewed 2018. Oxycodone, ur Not Detected CutOff 100ng/mL [facility] Comment: Interpretive Data - Oxycodone: ??Samples containing greater than 100 ng/mL oxycodone or other cross-reacting compounds are reported as positive. ??False positive and false negative results are possible. ?? Current Interpretive Data was last reviewed 2018. Phencyclidine, ur Not Detected CutOff 25 ng/mL [facility] Comment: Interpretive Data - Phencyclidine: ??Samples containing greater than 25 ng/mL phencyclidine or other cross-reacting compounds are reported as positive. ??False positive and false negative results are possible. ?? Current Interpretive Data was last reviewed 2018. Urine Creatinine 69 mg/dL [facility] Comment: Interpretive Data Urine Creatinine: < 10 mg/dL is extremely dilute = or > 10 but < 20 mg/dL is dilute = or > 20 mg/dL is normal Current Interpretive Data was last revised on 2017. Urine 02/09/2021 6:06 PM CDT 02/09/2021 6:10 PM CDT Narrative [facility] - 02/09/2021 6:37 PM CDT Drug of Abuse screening is performed by immunoassay for medical purposes only. ??This is not to be used for Pain Management purposes. Doug Weaver DO LAB URINE ORDERABLES Final Result [facility] [address] Department [place] [address] * XR Abdomen Erect and or Decubitus 2 Views (02/09/2021 3:53 PM CDT) Anatomical Region Laterality Modality Body, Abdomen N/A Computed Radiogr aphy 02/09/2021 4:04 PM CDT Impressions 02/09/2021 4:04 PM CDT 1. ??Few air dilated loops of small bowel in the midabdomen and scattered air-fluid levels can be seen with ileus and partial small bowel obstruction. ??No free air. Electronically signed by: Daniel Wells M.D. Narrative 02/09/2021 4:04 PM CDT Obstructive series 02/09/2021 HISTORY: Vomiting. ??History of prior small bowel obstruction COMPARISON: CT abdomen pelvis 01/13/2021 FINDINGS: Surgical suture in the mid abdomen pelvis. ??Few air dilated loops of small bowel in the midabdomen with scattered air-fluid levels on the upright view. ??Mild to moderate amount of fecal material in the right colon. ??Moderate amount of fecal material adjacent to the anastomotic suture line in the pelvis. ??No free intraperitoneal air. ??Few small left renal calculi. Procedure Note Daniel Wells MD - 02/09/2021 Obstructive series 02/09/2021 HISTORY: Vomiting. History of prior small bowel obstruction COMPARISON: CT abdomen pelvis 01/13/2021 FINDINGS: Surgical suture in the mid abdomen pelvis. Few air dilated loops of small bowel in the midabdomen with scattered air-fluid levels on the upright view. Mild to moderate amount of fecal material in the right colon. Moderate amount of fecal material adjacent to the anastomotic suture line in the pelvis. No free intraperitoneal air. Few small left renal calculi. IMPRESSION: 1. Few air dilated loops of small bowel in the midabdomen and scattered air-fluid levels can be seen with ileus and partial small bowel obstruction. No free air. Electronically signed by: Daniel Wells M.D. Sharad Mcdonnell MD IMG XR PROCEDURES Final Resu lt * Insert midline (02/09/2021 3:07 PM CDT) Narrative Blanca Timmons. - 02/09/2021 3:07 PM CDT Blanca Timmons RN ? 02/09/2021 ??3:09 PM Vascular Cork Compounder : Consulted for midline placement pt has hx of difficult access with multiple failed attempts to keep piv access or gain access by bedside staff. Assessed right upper arm under ultrasound. ?? brachial ?? vessel showed normal compression. Site prepped and dried. Sterile field draped in normal fashion. Able to access vessel w/o complication. 20g 10cm Needle tip in center vessel verified by ultrasound and blood return. Guidewire and cannula advanced w/o complication. Flushed with 10 ML NS w/o complication. Blood return again noted. Stat lock applied and sterile dressing applied. Safety sign placed in room. Limb alert applied. Bedside RN/ tech notified. Verbal and written education provided to pt. Questions/concerns/loss of access please call blanca . Thank you. Blanca Timmons RN Vascular access [phone] Linda Harris MD IV THERAPY ORDERA BLES Final Result * (ABNORMAL) MRSA Only (Staphylococcs aureus) PCR Nasal (02/09/2021 11:30 AM CDT) [facility] PCR Scrn, Methicillin resistant Staphylococcus aureus (MRSA) Detected( C) Not Detected [facility] Comment: Critical result called to and read back by Jenny Chase RN 02/09/2021 15:49:31 CDT [facility] Testing performed using Nucleic Acid Amplification with the [employer] Xpert MRSA Assay. This assay detects DNA from SCCmec strains of Staphylococcus aureus using Real- Time PCR and has been cleared by the FDA. Performance characteristics have been verified by the [facility]. Testing performed by: [facility], [address] [place] [address], [place]., [address] Nasal 02/09/2021 11:3 0 AM CDT 02/09/2021 2:32 PM CDT us Jet Cheung MD LAB MICROBIOLOGY - GENE RAL ORDERABLES Final Result [facility] [address] Department [place] [address] * NM Pulmonary Ventilation and Perfusion Imaging (02/09/2021 8:22 AM CDT) Anatomical Region Laterality Modality Body N/A Nuclear Medicine 02/09/2021 9:28 AM CDT Impressions 02/09/2021 9:28 AM CDT 1. ??Very low probability for pulmonary embolism. 2. ??The patient refused to wear the mask for the entire ventilation portion of the exam. 3. ??Decreased ventilation at the right lung initially, likely related to the patient's presumed pneumonia. ??Abnormal washout of xenon from the right lung and left lung base. Electronically signed by: Reena Carranza M.D. Narrative 02/09/2021 9:28 AM CDT EXAMINATION: VQ scan. DATE: 02/09/2021 7:05 AM HISTORY: Shortness of breath, chest pain, cough COMPARISON: None TECHNIQUE: 8.6 mCi xenon-133 gas was administered. ??Posterior single breath, equilibrium, and washout images of the lungs were obtained. 5.2 mCi technetium 99m MAA were administered. ??Perfusion images were obtained in multiple positions. ?? FINDINGS: The comparison chest radiograph performed on 02/08/2021 demonstrates diffuse right lung opacity concerning for pneumonia. ??No pleural effusion. ??The patient refused to finish wearing the mask for the ventilation portion of the exam. ??The xenon-133 ventilation images show decreased ventilation to the right lung initially (on the single breath image), likely related to the patient's presumed pneumonia. ??There is abnormal xenon-133 retention in the right lung and left base during the washout phase. ??The perfusion images show small segmental perfusion defects in the inferior lingular left upper lobe and lateral basilar segment of the left lower lobe. ??There is a small segmental defect in the right posterior basal segment. ??These findings are compatible with a very low probability for pulmonary embolism Procedure Note Reena Carranza MD - 02/09/2021 EXAMINATION: VQ scan. DATE: 02/09/2021 7:05 AM HISTORY: Shortness of breath, chest pain, cough COMPARISON: None TECHNIQUE: 8.6 mCi xenon-133 gas was administered. Posterior single breath, equilibrium, and washout images of the lungs were obtained. 5.2 mCi technetium 99m MAA were administered. Perfusion images were obtained in multiple positions. FINDINGS: The comparison chest radiograph performed on 02/08/2021 demonstrates diffuse right lung opacity concerning for pneumonia. No pleural effusion. The patient refused to finish wearing the mask for the ventilation portion of the exam. The xenon-133 ventilation images show decreased ventilation to the right lung initially (on the single breath image), likely related to the patient's presumed pneumonia. There is abnormal xenon-133 retention in the right lung and left base during the washout phase. The perfusion images show small segmental perfusion defects in the inferior lingular left upper lobe and lateral basilar segment of the left lower lobe. There is a small segmental defect in the right posterior basal segment. These findings are compatible with a very low probability for pulmonary embolism IMPRESSION: 1. Very low probability for pulmonary embolism. 2. The patient refused to wear the mask for the entire ventilation portion of the exam. 3. Decreased ventilation at the right lung initially, likely related to the patient's presumed pneumonia. Abnormal washout of xenon from the right lung and left lung base. Electronically signed by: Reena Carranza M.D. Fabio Timmons NP IMG NM PROCEDURES Final Resul t * eGFR (02/09/2021 12:41 AM CDT) [facility] eGFR 29 mL/min/1.7 3 m2 [facility] Comment: Interpretive Data Reference Interval Normal [...] was last reviewed 2020 Blood specimen (specimen) 02/09/2021 12:41 AM CDT 02/09/2021 12:46 AM CDT us Fabio Timmons ASSISTANT DIRECTOR OF NURSING LAB BLOOD ORDERABLES Final Re sult [facility] [address] Department [place] [address] * (ABNORMAL) Basic metabolic panel (02/09/2021 12:41 AM CDT) Sodium 132(L) 135 - 145 mmol/L [facility] Potassium, pl 2.9(L) 3.3 - 4.9 mmol/L [facility] Chloride 88(L) 97 - 110 mmol/L [facility] CO2 30 22 - 32 mmol/L [facility] Anion gap 14 2 - 15 mmol/L [facility] BUN 33(H) 8 - 25 mg/dL [facility] Creatinine 1.90(H) 0.60 - 1.10 mg/dL [facility] Glucose 86 70 - 199 mg/dL [facility] Comment: Interpretive Data Fasting glucose >/= [...] 2017. Calcium 8.9 8.5 - 10.3 mg/dL [facility] Blood specimen (specimen) 02/09/2021 12:41 AM CDT 02/09/2021 12:46 AM CDT Fabio Timmons NP LAB BLOOD ORDERABLES Final Re sult [facility] [address] [facility] Department of [employer] [place], [place] [id number] * (ABNORMAL) CBC without differential (02/09/2021 12:41 AM CDT) WBC 10.7(H) 3.8 - 9.9 K/cumm [facility] Hgb 9.4(L) 11.9 - 15.5 g/dL [facility] Hct 28.2(L) 35.6 - 45.5 % [facility] Plt 230 150 - 400 K/cumm [facility] MPV 11.2 9.1 - 12.3 fL [facility] RBC 3.15(L) 3.90 - 5.20 M/cumm [facility] MCV 89.5 81.3 - 96.4 fL [facility] MCH 29.8 27.1 - 33.3 pg [facility] MCHC 33.3 32.3 - 35.7 g/dL [facility] RDW CV 12.7 11.1 - 14.9 % [facility] RDW SD 41.4 35.7 - 48.1 fL [facility] Blood specimen (specimen) 02/09/2021 12:41 AM CDT 02/09/2021 12:46 AM CDT Narrative [facility] - 02/09/2021 12:49 AM CDT while on enoxaparin. us Lavada J. Timmons ASSISTANT DIRECTOR OF NURSING LAB BLOOD ORDERABLES Final Re sult Performing Organization Address City/[facility]/ZIP Co de Phone Number [facility] 2 [facility] Department [place] [address] * (ABNORMAL) Sepsis Lactate w/ Reflex (02/09/2021 12:41 AM CDT) Sepsis Lactate 2.5(H) 0.7 - 2.0 mmol/L [facility] Blood specimen (specimen) 02/09/2021 12:41 AM CDT 02/09/2021 12:48 AM CDT Doug Weaver DO LAB BLOOD ORDERABLES Final Result Performing Organization Address [facility] Co de Phone Number [facility] [address] [facility] Department [place] [address] * (ABNORMAL) Troponin T high-sensitivity 6-hour (02/09/2021 12:41 AM CDT) Trop T hs 27(H) <=14 ng/L [facility] Comment: Critical Result called by [id number] at 2021-02-09 01:19:46. Result Read Back by Valeria Wellington RN Interpretive Data For further hscTnT resources including the diagnostic algorithm and an aid in interpretation, copy and paste this link: https://nrl.testcatalog.org/show/hsTrop Current Interpretive Data last revised 2020. Trop T hs delta -17(C) ng/L [facility] Comment:Critical Result call ed by [email or web address] at 2021-02-09 01:19:46. Result Read Back by Valeria Wellington RN Trop T hs interp Significa nt(C) [facility] Comment:Critical Result call ed by [email or web address] at 2021-02-09 01:19:46. Result Read Back by Valeria Wellington RN Blood specimen (specimen) 02/09/2021 12:41 AM CDT 02/09/2021 12:46 AM CDT Doug Weaver DO LAB BLOOD ORDERABLES Final Result Performing Organization Address City/[facility]/ZIP Co de Phone Number [facility] [address] [place] [address] * (ABNORMAL) Procalcitonin (02/08/2021 10:29 PM CDT) [facility] Procalcitonin 89.27(H) 0.02 - 0.80 ng/mL [facility] Comment:Testing performed by : [facility], [facility], [place]., [address] Blood specimen (specimen) 02/08/2021 10:29 PM CDT 02/09/2021 1:20 AM CDT Fabio Timmons ASSISTANT DIRECTOR OF NURSING LAB BLOOD ORDERABLES Final Re sult Performing Organization Address [facility] Co de Phone Number [facility] 2 [facility] [place] [address] * (ABNORMAL) Troponin T high-sensitivity 4-hour (02/08/2021 10:24 PM CDT) [facility] Trop T hs 29(H) <=14 ng/L [facility] Comment: Critical Result called by [id number] at 2021-02-08 23:03:08. Result Read Back by Lida Sultana RN Interpretive Data For further hscTnT resources including the diagnostic algorithm and an aid in interpretation, copy and paste this link: https://nrl.testcatalog.org/show/hsTrop Current Interpretive Data last revised 2020. Trop T hs delta -15(C) ng/L [facility] Comment:Critical Result call ed by [id number] at 2021-02-08 23:03:08. Result Read Back by Lida Sultana RN Trop T hs interp Significa nt(C) [facility] Comment:Critical Result call ed by [email or web address] at 2021-02-08 23:03:08. Result Read Back by Lida Sultana RN Blood specimen (specimen) 02/08/2021 10:24 PM CDT 02/08/2021 10:36 PM CDT Doug Khalil Owen DO LAB BLOOD ORDERABLES Final Result Performing Organization Address [facility]/ZIP Co de Phone Number [facility] 2 [facility] [place] [address] * (ABNORMAL) Sepsis Lactate w/ Reflex (02/08/2021 9:25 PM CDT) Pathologist [facility] Sepsis Lactate 2.5(H) 0.7 - 2.0 mmol/L [facility] Blood specimen (specimen) 02/08/2021 9:25 PM CDT 02/08/2021 9:32 PM CDT Doug Remi Weaver DO LAB BLOOD ORDERABLES Final Result Performing Organization Address [facility] Co de Phone Number [facility] [address] [place] [address] * (ABNORMAL) Troponin T high-sensitivity 2-hour (02/08/2021 8:24 PM CDT) Pathologist [facility] Trop T hs 32(H) <=14 ng/L [facility] Comment: Critical Result called by meche at 2021-02-08 20:51:12. Result Read Back by Norah Xiong RN Interpretive Data For further hscTnT resources including the diagnostic algorithm and an aid in interpretation, copy and paste this link: https://nrl.testcatalog.org/show/hsTrop Current Interpretive Data last revised 2020. Trop T hs delta -12(C) ng/L [facility] Comment:Critical Result call ed by [id number] at 2021-02-08 20:51:12. Result Read Back by Norah Xiong RN Trop T hs interp Significa nt(C) [facility] Comment:Critical Result call ed by [email or web address] at 2021-02-08 20:51:12. Result Read Back by Norah Xiong RN Blood specimen (specimen) 02/08/2021 8:24 PM CDT 02/08/2021 8:28 PM CDT us Doug Weaver DO LAB BLOOD ORDERABLES Final Result Performing Organization Address City/State/[facility] Phone Number [facility] [address] [facility] Department [place] [address] * Critical Care (02/08/2021 7:10 PM CDT) Narrative Doug Weaver, - 02/08/2021 7:10 PM CDT oDug Weaver DO ? 02/08/2021 ??8:21 PM Critical Care Performed by: Doug Weaver DO Authorized by: Doug Weaver DO Critical care provider statement: As reflected in the history, physical exam, orders, notes, and/or MDM, I was personally present while the patient was critically ill and provided critical care services for approximately 40 minutes, excluding time involved in separately billable procedures. ??Critical care was necessary to treat or prevent imminent or life-threatening deterioration of the following condition(s): ?? unstable vital signs ?? hypoxic respiratory failure and severe respiratory condition ?? acute renal failure ?? sepsis ??Critical care was time spent by me providing the following: ? continuous telemetry, continuous pulse oximetry, interpretation of bedside monitors, imaging, and arterial/venous lab draws and resuscitation with fluids ?? supplemental oxygen ?? I provided emergent necessary critical care medicine services to this patient. I ordered and reviewed test results and/or imaging studies. I spent time discussing the management of this critically ill patient with consultants and the medical staff. I spent time discussing the management and therapeutic options for this critically ill patient with the patient themselves or with the appropriate designated surrogate decision-maker. I spent time documenting in the medical record. I admitted this patient to a continuous cardiac monitored bed. us Doug Weaver DO IN CLINIC/BEDSIDE ORDERABL ES Final Result * Magnesium (02/08/2021 6:39 PM CDT) Magnesium 2.4 1.4 - 2.5 mg/dL [facility] Blood specimen (specimen) 02/08/2021 6:39 PM CDT 02/08/2021 6:48 PM CDT Doug Weaver DO LAB BLOOD ORDERABLES Final Result [facility] [address] [facility] Department [place] [address] * COVID-19 Coronavirus RNA Nasopharyngeal (02/08/2021 6:39 PM CDT) COVID-19 RNA Negative Negative [facility] Comment: Interpretive data: Synonyms for this test include: PCR and NAAT . ??This test is performed using the [employer] Xpert Xpress assay. This is a real-time [...] September 15, 2020. First COVID-19 test? No [facility] PW Employeed in healthcare? Unknown [facility] PW status? No [facility] Group care resident? Yes [facility] Hospitalized? Yes [facility] Is patient in ICU? Yes [facility] Symptomatic as defined by CDC? Yes [facility] PW Nasopharyngeal 02/08/2021 6: 39 PM CDT 02/08/2021 6:52 PM CDT Narrative [facility] - 02/08/2021 7:43 PM CDT What is the reason for testing?->Bed placement or semi-private room Date of Symptom Onset->02/01/21 Doug Weaver DO LAB MICROBIOLOGY - GENERAL ORDERABLES Final Result [facility] [address] [facility] Department [place] [address] * (ABNORMAL) Blood culture Blood Peripheral (02/08/2021 6:39 PM CDT) Direct Specimen Exam Stain: Gram Positive Cocci in clusters Test result called to and read back by Jenny Chase RN on 02/09/2021 15:43:59 by [facility] Comment:Testing performed by : 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, [address] [place] [address]., [id number] Organism GEMELLA HAEMOLYSANS [facility] Blood specimen (specimen) (Peripheral) 02/08/2021 6:39 PM CDT 02/08/2021 9:48 PM CDT Narrative [facility] - 02/10/2021 10:21 AM CDT From a different site than #1. Draw Blood cultures before administration of Antibiotics Doug Khalil Cohealojesusita HYDE LAB MICROBIOLOGY - GENERAL ORDERABLES Final Result Performing Organization Address City/[facility] Co de Phone Number [facility] 2 [facility] [place] [address] * Blood culture Blood Peripheral (02/08/2021 6:39 PM CDT) Report Final Report: No growth [facility] Comment:Testing performed by : [facility], [address] [place] [address]., [id number] Blood specimen (specimen) (Peripheral) 02/08/2021 6:39 PM CDT 02/08/2021 9:48 PM CDT Narrative [facility] - 02/14/2021 7:01 AM CDT Draw Blood cultures before administration of Antibiotics Doug Weaver DO LAB MICROBIOLOGY - GENERAL ORDERABLES Final Result Performing Organization Address City/[facility]/ZIP Co de Phone Number [facility] [address] [place] [address] * (ABNORMAL) Sepsis Lactate w/ Reflex (02/08/2021 6:39 PM CDT) Pathologist [facility] Sepsis Lactate 3.6(H) 0.7 - 2.0 mmol/L [facility] Blood specimen (specimen) 02/08/2021 6:39 PM CDT 02/08/2021 6:48 PM CDT Doug Weaver LAB BLOOD ORDERABLES Final Result Performing Organization Address [facility] Co de Phone Number [address] [address] * aPTT (02/08/2021 6:39 PM CDT) [facility] aPTT 27 27 - 37 sec [facility] Comment: Interpretive Data Therapeutic heparin range: 60.0 - 94.0 seconds. Based on correlation with therapeutic heparin activity range of 0.3-0.7 Units/mL. Current interpretive data was last revised on 2020. Blood specimen (specimen) 02/08/2021 6:39 PM CDT 02/08/2021 6:48 PM CDT Doug Weaver DO LAB BLOOD ORDERABLES Final Result Performing Organization Address [facility] de Phone Number [address] [address] * Protime-INR (02/08/2021 6:39 PM CDT) [facility] PT 12.4 9.5 - 13.6 sec [facility] INR 1.1 0.9 - 1.2 [facility] Comment: Interpretive data Oral anticoagulant therapeutic ranges: Venous thromboembolism prophylaxis or treatment: 2.0-3.0 CARDIOLOGY Standard range: 2.0-3.0 High-intensity range: 2.5-3.5 Refer to indication-specific guidelines for appropriate target ranges for prosthetic heart valve replacement. Current interpretive data was last revised on 2019. Blood specimen (specimen) 02/08/2021 6:39 PM CDT 02/08/2021 6:48 PM CDT Doug Weaver DO LAB BLOOD ORDERABLES Final Result Performing Organization Address [facility] Co de Phone Number [address] [address] * (ABNORMAL) Lipase (02/08/2021 6:39 PM CDT) Pathologist [facility] Lipase 8(L) 10 - 99 Units/L [facility] Blood specimen (specimen) 02/08/2021 6:39 PM CDT 02/08/2021 6:48 PM CDT Doug Weaver DO LAB BLOOD ORDERABLES Final Result Performing Organization Address [facility] Phone Number [address] [address] * ECG 12 lead (02/08/2021 6:38 PM CDT) 02/08/2021 6:38 PM CDT Narrative [facility] - 02/09/2021 12:31 PM CDT Vent Rate: 95 bpm RR Interval: 627 msec [place] Interval: 134 msec QRS Duration: 91 msec QT Interval: 400 msec QTC Interval: 453 msec P-R-T [place]: 56 - 54 - 67 degrees SINUS RHYTHM NORMAL ECG Electronically Signed By: Kennedy Leonard DO, [facility] Doug Weaver DO ECG ORDERABLES Final Resu lt Performing Organization Address [facility] de Phone Number [facility] * (ABNORMAL) D-dimer, quantitative (02/08/2021 6:37 PM CDT) D-Dimer 1,133(H) <=499 ng/mL FEU [facility] Comment: Interpretive data FDA approved the D-dimer, in conjunction with a low or moderate pretest probability score, to exclude venous thromboembolic events (VTE) (PE and DVT) in outpatients when the D-dimer result is < 500 ng/ml FEU. ?? Evidence supports using an age-adjusted D-dimer cut-off for outpatients older than 50 (age x 10) to improve specificity without sacrificing sensitivity. Example: age 68, VTE cut-off 680 ng/ml FEU. References; Schouten HT et al. Brit Med J. 2013;346:f2492. Federico et al. Annals Int Med. 2015;163:701-11. Current interpretive data was last revised on 2019. Blood specimen (specimen) 02/08/2021 6:37 PM CDT 02/08/2021 9:26 PM CDT Doug Weaver DO LAB BLOOD ORDERABLES Final Result Performing Organization Address City/State/[facility] Co de Phone Number [facility] [address] Department [place] [address] * XR Chest 1 Vw portable (02/08/2021 6:36 PM CDT) Anatomical Region Laterality Modality Body, Chest N/A Computed Radiogr aphy 02/09/2021 7:44 AM CDT Impressions 02/09/2021 7:44 AM CDT Diffuse right lung opacity concerning for pneumonia Electronically signed by: Lolly Redding M.D. Narrative 02/09/2021 7:44 AM CDT Exam: ??XR CHEST 1 VIEW History: ??medical clearance , hypotension Findings: Comparison is made to 01/13/2021. Interstitial and airspace opacity with air bronchograms is new throughout the right lung when compared to the prior exam. ??No pleural effusion or pneumothorax is seen. ??The left lung is clear. The heart and mediastinal contours are within normal limits. Atherosclerotic calcification is seen within the aortic knob. ??The osseous thorax is intact. Procedure Note Lolly Redding MD - 02/09/2021 Exam: XR CHEST 1 VIEW History: medical clearance , hypotension Findings: Comparison is made to 01/13/2021. Interstitial and airspace opacity with air bronchograms is new throughout the right lung when compared to the prior exam. No pleural effusion or pneumothorax is seen. The left lung is clear. The heart and mediastinal contours are within normal limits. Atherosclerotic calcification is seen within the aortic knob. The osseous thorax is intact. IMPRESSION: Diffuse right lung opacity concerning for pneumonia Electronically signed by: Lolly Redding M.D. Doug Khalil Owen DO IMG XR PROCEDURES Final Re sult * eGFR (02/08/2021 6:30 PM CDT) eGFR 26 mL/min/1.7 3 m2 [facility] Comment: Interpretive Data Reference Interval Normal [...] was last reviewed 2020 Blood specimen (specimen) 02/08/2021 6:30 PM CDT 02/08/2021 6:34 PM CDT us Doug Weaver DO LAB BLOOD ORDERABLES Final Result [facility] [address] [facility] Department [place] [address] * (ABNORMAL) Differential, auto (02/08/2021 6:30 PM CDT) Neutrophil abs 6.1 1.7 - 6.5 K/cumm [facility] Imm gran abs 0.1 0.0 - 0.1 K/cumm [facility] Lymphocyte abs 0.6(L) 0.8 - 3.3 K/cumm [facility] Monocyte abs 0.8 0.2 - 0.8 K/cumm [facility] Eosinophil abs 0.1 0.0 - 0.5 K/cumm [facility] Basophil abs 0.1 0.0 - 0.1 K/cumm [facility] Neutrophil pct 79.8 % [facility] Comment: Interpretive Data Percent cell count reference ranges are not reported, since discordance with absolute values may lead to misinterpretation of CBC data. Current Interpretive Data was last revised on 2017. Imm gran pct 0.8 % [facility] Comment: Interpretive Data Percent cell count reference ranges are not reported, since discordance with absolute values may lead to misinterpretation of CBC data. Current Interpretive Data was last revised on 2017. Lymphocyte pct 7.8 % [facility] Comment: Interpretive Data Percent cell count reference ranges are not reported, since discordance with absolute values may lead to misinterpretation of CBC data. Current Interpretive Data was last revised on 2017. Monocyte pct 10.1 % [facility] Comment: Interpretive Data Percent cell count reference ranges are not reported, since discordance with absolute values may lead to misinterpretation of CBC data. Current Interpretive Data was last revised on 2017. Eosinophil pct 0.7 % [facility] Comment: Interpretive Data Percent cell count reference ranges are not reported, since discordance with absolute values may lead to misinterpretation of CBC data. Current Interpretive Data was last revised on 2017. Basophil pct 0.8 % [facility] Comment: Interpretive Data Percent cell count reference ranges are not reported, since discordance with absolute values may lead to misinterpretation of CBC data. Current Interpretive Data was last revised on 2017. Blood specimen (specimen) 02/08/2021 6:30 PM CDT 02/08/2021 6:34 PM CDT Doug Remi jesusita LAB BLOOD ORDERABLES Final Result Performing Organization Address [facility] de Phone Number [facility] [address] [place] [address] * (ABNORMAL) Troponin T high-sensitivity series (baseline, 2hr, 4hr, 6hr) (02/08/2021 6:30 PM CDT) Pathologist [facility] Trop T hs 44(H) <=14 ng/L [facility] Comment: Interpretive Data For further hscTnT resources including the diagnostic algorithm and an aid in interpretation, copy and paste this link: https://nrl.testcatalog.org/show/hsTrop Current Interpretive Data last revised 2020. Blood specimen (specimen) 02/08/2021 6:30 PM CDT 02/08/2021 6:34 PM CDT Doug Weaver DO LAB BLOOD ORDERABLES Final Result Performing Organization Address [facility] de Phone Number [facility] [address] [place] [address] * (ABNORMAL) CBC with auto differential (02/08/2021 6:30 PM CDT) Pathologist [facility] WBC 7.6 3.8 - 9.9 K/cumm [facility] Hgb 10.6(L) 11.9 - 15.5 g/dL [facility] Hct 32.0(L) 35.6 - 45.5 % [facility] Plt 296 150 - 400 K/cumm [facility] MPV 11.4 9.1 - 12.3 fL [facility] RBC 3.59(L) 3.90 - 5.20 M/cumm [facility] MCV 89.1 81.3 - 96.4 fL [facility] MCH 29.5 27.1 - 33.3 pg [facility] MCHC 33.1 32.3 - 35.7 g/dL [facility] RDW CV 12.5 11.1 - 14.9 % [facility] RDW SD 40.3 35.7 - 48.1 fL [facility] NRBC abs 0.03(H) 0.00 - 0.01 K/cumm [facility] Blood specimen (specimen) 02/08/2021 6:30 PM CDT 02/08/2021 6:34 PM CDT Doug Weaver DO LAB BLOOD ORDERABLES Final Result [facility] [address] Department [place] [address] * (ABNORMAL) Comprehensive metabolic panel (02/08/2021 6:30 PM CDT) Sodium 131(L) 135 - 145 mmol/L [facility] Potassium, pl 3.0(L) 3.3 - 4.9 mmol/L [facility] Chloride 82(L) 97 - 110 mmol/L [facility] CO2 32 22 - 32 mmol/L [facility] Anion gap 17(H) 2 - 15 mmol/L [facility] BUN 30(H) 8 - 25 mg/dL [facility] Creatinine 2.10(H) 0.60 - 1.10 mg/dL [facility] Glucose 89 70 - 199 mg/dL [facility] Comment: Interpretive Data Fasting glucose >/= [...] interpretive data was last revised 2017. Calcium 9.9 8.5 - 10.3 mg/dL [facility] Bilirubin, total 0.2 0.1 - 1.2 mg/dL [facility] Protein, pl 5.9(L) 6.5 - 8.5 g/dL [facility] Albumin 3.4(L) 3.5 - 5.0 g/dL [facility] Alk phos 94 40 - 130 Units/L [facility] ALT 21 7 - 45 Units/L [facility] AST 41 10 - 45 Units/L [facility] Comment:Hemolyzed result may be falsely elevated. Blood specimen (specimen) 02/08/2021 6:30 PM CDT 02/08/2021 6:34 PM CDT Doug Weaver DO LAB BLOOD ORDERABLES Final Result Performing Organization Address City/State/[facility] Co de Phone Number [facility] [address] Department [place] [address] documented in this encounter Visit Diagnoses Diagnosis Acute hypoxemic respiratory failure (HCC)- Primary Acute hypoxemic respiratory failure (HCC) Sepsis, due to unspecified organism, unspecified whether acute organ dysfunction present (HCC) Hospital-acquired pneumonia Pneumonia, organism unspecified Failure to thrive (0-17) Failure to thrive documented in this encounter Admitting Diagnoses Diagnosis Acute hypoxemic respiratory failure (HCC) documented in this encounter Administered Medications Inactive Administered Medications - up to 3 most recent administrations Medication Order MAR Action Action Date Dose Rate Site acetaminophen (TYLENOL) 32 mg/mL oral solution 650 mg 650 mg, feeding tube, Every 4 hours PRN, 1st line for pain, fever, Starting on Sat02/08/21 at 2226, Administer if patient receiving meds per tube., Indications: Fever, PainIndications:Fever,Pain acetaminophen (TYLENOL) suppository 650 mg 650 mg, rectal, Every 4 hours PRN, 1st line for pain, fever, Starting on Sat02/08/21 at 2226, Administer if patient cannot tolerate enteral route., Indications: Fever, PainIndications:Fever,Pain acetaminophen (TYLENOL) tablet 1,000 mg 1,000 mg, oral, Once, On Sat02/08/21 at 1907, For 1 dose Given 02/08/2021 7:09 PM CDT 1,000 mg acetaminophen (TYLENOL) tablet 650 mg 650 mg, oral, Every 4 hours PRN, 1st line for pain, fever, Starting on Sat02/08/21 at 2226, Administer if patient can swallow tablets., Indications: Fever, PainIndications:Fever,Pain Given 02/20/2021 3:21 PM CDT 650 mg Given 02/20/2021 9:54 AM CDT 650 mg Given 02/19/2021 6:55 PM CDT 650 mg aspirin enteric coated tablet 81 mg 81 mg, oral, Every other day, First dose on Sat02/09/21 at 1030, Do not crush, chew, cut, dissolve, open or otherwise manipulate tablet/capsule. Given 02/09/2021 11:31 AM CDT 81 mg benzocaine (HURRICAINE) 20 % mouth spray 1 spray 1 spray, mouth/throat, Once, On Sat02/09/21 at 1830, For 1 dose Given 02/09/2021 6:07 PM CDT 1 spray cefepime (MAXIPIME) 1,000 mg in sodium chloride 0.9% 100 mL IVPB 1,000 mg, intravenous, at 200 mL/hr, Administer over 30 Minutes, Every 24 hours, First dose on Sat02/09/21 at 2100, Mini-Bag Plus bag, Indications: Pneumonia, Hospital AcquiredIndications:Pneumonia, Hospital Acquired New Bag 02/09/2021 9:23 PM CDT 1,000 mg 200 mL/hr cefepime (MAXIPIME) 1,000 mg in sodium chloride 0.9% 100 mL IVPB 1,000 mg, intravenous, at 200 mL/hr, Administer over 30 Minutes, Every 12 hours, First dose (after last modification) on Sat02/10/21 at 0930, Mini-Bag Plus bag, Indications: Pneumonia, Hospital AcquiredIndications:Pneumonia, Hospital Acquired New Bag 02/11/2021 8:48 AM CDT 1,000 mg 200 mL/hr New Bag 02/10/2021 10:05 PM CDT 1,000 mg 200 mL/hr New Bag 02/10/2021 9:13 AM CDT 1,000 mg 200 mL/hr cefepime (MAXIPIME) 2,000 mg in sodium chloride 0.9% 100 mL IVPB 2,000 mg, intravenous, at 200 mL/hr, Administer over 30 Minutes, Once, On Sat02/08/21 at 1911, For 1 dose, Mini-Bag Plus bag, Indications: SepsisIndications:Sepsis New Bag 02/08/2021 7:21 PM CDT 2,000 mg 200 mL /hr cyanocobalamin (Vitamin B-12) sublingual tablet 1,000 mcg 1,000 mcg, oral, Daily, First dose on Sat02/09/21 at 1030 Given 02/20/2021 9:27 AM CDT 1,000 mcg Given 02/11/2021 8:48 AM CDT 1,000 mcg Given 02/09/2021 11:31 AM CDT 1,000 mcg cyclobenzaprine (FLEXERIL) tablet 10 mg 10 mg, oral, 2 times daily, First dose on Sat02/09/21 at 1030, Indications: Muscle SpasmIndications:Muscle Spasm Given 02/20/2021 9:27 AM CDT 10 mg dextrose (D10W) 10% bolus 250 mL 250 mL, intravenous, at 1,000 mL/hr, Administer over 15 Minutes, Every 15 min PRN, blood glucose less than 70 mg/dL and UNABLE to swallow/take PO glucose/juice., Starting on Sat02/10/21 at 0331, After treatment for hypoglycemia, recheck BG followed by treatment every 15 minutes until the BG is greater than 100 mg/dL. Then check BG 1 hour post treatment. If BG is less than 100 mg/dL, repeat Q15 minute BG checks and treatment. Call MD for each episode of hypoglycemia., Indications: hypoglycemic disorderIndications:hypoglycemic disorder New Bag 02/10/2021 3:43 AM CDT 250 mL 1000 mL/hr dextrose 5% and Lactated Ringer's infusion 100 mL/hr, intravenous, Continuous, Starting on Sat02/10/21 at 0415 New Bag 02/18/2021 10:58 AM CDT 100 mL/hr 100 mL/hr New Bag 02/17/2021 2:08 AM CDT 100 mL/hr 100 mL/hr New Bag 02/16/2021 3:13 PM CDT 100 mL/hr 100 mL/hr dextrose oral liquid liquid 15 g 15 g, oral, Every 15 min PRN, low blood sugar, blood glucose less than 70 mg/dL, Starting on Sat02/10/21 at 0331, If patient is alert and able to eat/drink, give 15 gm glucose or one juice (4 fluid ounces) NOT ORANGE JUICE. After treatment for hypoglycemia, recheck BG followed by treatment every 15 minutes until the BG is greater than 100 mg/dL. Then check BG 1 hour post-treatment. If BG is less than 100 mg/dL, repeat Q15 minute BG checks and treatment. Call MD for each episode of hypoglycemia., Indications: hypoglycemic disorderIndications:hypoglycemic disorder diatrizoate meglumine-diatrizoate sodium (GASTROGRAFIN/MD-GASTROVIEW) 66-10 % solution 240 mL 240 mL, oral, Once in imaging, contrast, Starting on Sat02/14/21 at 1223, For 1 dose Contrast Given 02/14/2021 1:15 PM CDT 180 mL dicyclomine (BENTYL) capsule 10 mg 10 mg, oral, 3 times daily, First dose on Sat02/09/21 at 1600, Indications: Irritable Bowel SyndromeIndications:Irritable Bowel Syndrome Given 02/20/2021 3:21 PM CDT 10 mg Given 02/20/2021 12:24 PM CDT 10 mg docusate sodium (COLACE) capsule 100 mg 100 mg, oral, Daily, First dose on Sat02/09/21 at 1030, Indications: constipationIndications:constipation Given 02/20/2021 12:23 PM CDT 100 mg Given 02/09/2021 11:31 AM CDT 100 mg enoxaparin (LOVENOX) syringe 40 mg 40 mg (rounded from 45 mg = 1 mg/kg ? 45 kg), subcutaneous, Once, On Sat02/08/21 at 2153, For 1 dose, Indications: elevated d-dimerIndications:el evated d-dimer Given 02/08/2021 10:46 PM CDT 40 mg Left Lower Abdomen ferric gluconate (FERRLECIT) 125 mg of elemental iron in sodium chloride 0.9% 100 mL IVPB 125 mg of elemental iron, intravenous, at 110 mL/hr, Administer over 60 Minutes, Daily, First dose on Sat02/12/21 at 1500, For 3 doses, Room temperature only New Bag 02/14/2021 2:22 PM CDT 125 mg of elemental iron 110 mL/hr New Bag 02/13/2021 3:18 PM CDT 125 mg of elemental iron 110 mL/hr New Bag 02/12/2021 2:30 PM CDT 125 mg of elemental iron 110 mL/hr fluticasone propionate (FLONASE) 50 mcg/actuation nasal spray 2 spray 2 spray, each nostril, Daily, First dose on Sat02/09/21 at 1030 Given 02/20/2021 9:32 AM CDT 2 sprays Given 02/19/2021 8:56 AM CDT 2 sprays Given 02/17/2021 9:33 AM CDT 2 sprays glucagon injection 1 mg 1 mg, intramuscular, Administer over 1 Minutes, Every 30 min PRN, low blood sugar, blood glucose less than 70 mg/dL AND no IV access AND unable to take PO glucose/jiuce., Starting on Sat02/10/21 at 0331, After Glucagon is administered, position patient on side if possible to avoid aspiration. Obtain IV access. Follow glucagon treatment with glucose treatment or IV dextrose. After treatment for hypoglycemia, recheck BG followed by treatment every 15 minutes until the BG is greater than 100 mg/dL. Then check BG 1 hour post treatment. If BG is less than 100 mg/dL, repeat Q15 minute BG checks and treatment. Call MD for each episode of hypoglycemia. Reconstitute 1 mg vial with 1 mL SWFI. Use immediately following reconstitution., Indications: HypoglycemiaIndications:Hyp oglycemia heparin 5,000 unit/mL injection 5,000 Units 5,000 Units, subcutaneous, Every 12 hours scheduled, First dose on Sat02/19/21 at 0945, Indications: Deep Vein Thrombosis PreventionIndications:Deep Vein Thrombosis Prevention Given 02/20/2021 9:28 AM CDT 5,000 Units Left Lower Abdomen Given 02/19/2021 8:27 PM CDT 5,000 Units L eft Lower Abdomen Given 02/19/2021 9:43 AM CDT 5,000 Units L eft Upper Abdomen ioversoL (OPTIRAY 350) syringe syringe 125 mL 125 mL, intravenous, Once in imaging, contrast, Starting on Sat02/12/21 at 0910, For 1 dose Contrast Given 02/12/2021 9:30 AM CDT 100 mL ketorolac (TORADOL) injection 15 mg 15 mg, intravenous, Every 6 hours PRN, 1st line for pain, Starting on 02/11/21 at 1332, For 2 days, For Adult IV push, administer over 15 seconds Given 02/13/2021 6:12 AM CDT 15 mg Given 02/12/2021 8:58 PM CDT 15 mg Given 02/12/2021 2:30 PM CDT 15 mg levETIRAcetam (KEPPRA) 250 mg in sodium chloride 0.9% 100 mL IVPB 250 mg, intravenous, at 410 mL/hr, Administer over 15 Minutes, Every 12 hours scheduled, First dose on Sat02/09/21 at 2230, Room temperature only New Bag 02/10/2021 2:30 AM CDT 250 mg 410 mL/hr levETIRAcetam (KEPPRA) 250 mg in sodium chloride 0.9% 100 mL IVPB 250 mg, intravenous, at 410 mL/hr, Administer over 15 Minutes, Every 12 hours scheduled, First dose (after last modification) on Sat02/10/21 at 1200, Room temperature only New Bag 02/19/2021 8:30 PM CDT 250 mg 410 mL/hr New Bag 02/19/2021 8:55 AM CDT 250 mg 410 mL/hr New Bag 02/18/2021 8:03 PM CDT 250 mg 410 mL/hr levETIRAcetam (KEPPRA) tablet 250 mg 250 mg, oral, 2 times daily, First dose on [place] 02/09/21 at 1030, May mix with 120 mL of enteral nutrition formula or disperse crushed tablets (500 mg tablet strength studied) in 10 mL of water, shake for 5 minutes to dissolve, and administer immediately via enteral feeding tube. Given 02/20/2021 9:27 AM CDT 250 mg Given 02/09/2021 11:31 AM CDT 250 mg lidocaine (XYLOCAINE) 10 mg/mL (1 %) injection - ADS Override Pull Starting on Sat02/08/21 at 1822, For 1 dose, Created by cabinet override Given 02/08/2021 6:34 PM CDT lidocaine (XYLOCAINE) 10 mg/mL (1 %) injection - ADS Override Pull Starting on Sat02/08/21 at 2000, For 1 dose, Created by cabinet override Given 02/08/2021 8:19 PM CDT lidocaine PF (XYLOCAINE) 10 mg/mL (1 %) preservative free injection 10-20 mg 10-20 mg (1-2 mL), subcutaneous, Once, On [place] 02/16/21 at 1245, For 1 dose, Administer to insertion site prior to procedure of local anesthesia. Administer volume needed to infiltrate site., Indications: Administration of Local AnesthesiaIndications:Admini stration of Local Anesthesia Given by Other 02/16/2021 3:00 PM CDT 10 mg Right Upper Arm LORazepam (ATIVAN) injection 0.25 mg 0.25 mg, intravenous, Once, On Sat02/09/21 at 0545, For 1 dose, For IV administration, dilute with equal volume of 0.9% sodium chloride. Do not exceed a rate of 2 mg/minute Given 02/09/2021 5:19 AM CDT 0.25 mg LORazepam (ATIVAN) injection 0.5 mg 0.5 mg, intravenous, Every 8 hours PRN, anxiety, Starting on Sat02/13/21 at 1537, For IV administration, dilute with equal volume of 0.9% sodium chloride. Do not exceed a rate of 2 mg/minute Given 02/20/2021 9:28 AM CDT 0.5 mg Given 02/19/2021 9:10 PM CDT 0.5 mg Given 02/19/2021 12:08 PM CDT 0.5 mg magnesium sulfate 2 g/50 mL in water (premix) 2 g 2 g, intravenous, Administer over 60 Minutes, Once, On Sat02/16/21 at 0915, For 1 dose New Bag 02/16/2021 9:08 AM CDT 2 g magnesium sulfate 2 g/50 mL in water (premix) 2 g 2 g, intravenous, Administer over 60 Minutes, Once, On Sat02/17/21 at 0745, For 1 dose New Bag 02/17/2021 9:33 AM CDT 2 g OLANZapine (ZyPREXA ZYDIS) disintegrating tablet 10 mg 10 mg, oral, Nightly, First dose on Sat02/09/21 at 2100, Indications: Depression Treatment Adjunct, Mixed Bipolar I DisorderIndications:Depression Treatment Adjunct,Mixed Bipolar I Disorder Given 02/11/2021 8:41 PM CDT 10 mg Given 02/10/2021 8:09 PM CDT 10 mg Given 02/09/2021 9:23 PM CDT 10 mg OLANZapine (ZyPREXA ZYDIS) disintegrating tablet 5 mg 5 mg, oral, Daily, First dose on Sat02/09/21 at 1030, Indications: Depression Treatment Adjunct, Mixed Bipolar I DisorderIndications:Depression Treatment Adjunct,Mixed Bipolar I Disorder Given 02/20/2021 12:23 PM CDT 5 mg Given 02/12/2021 8:18 AM CDT 5 mg Given 02/11/2021 1:24 PM CDT 5 mg OLANZapine (ZyPREXA ZYDIS) disintegrating tablet 5 mg 5 mg, oral, Every 8 hours PRN, agitation, Starting on Sat02/09/21 at 0955 Given 02/20/2021 5:11 AM CDT 5 mg Given 02/19/2021 4:55 PM CDT 5 mg Given 02/19/2021 8:55 AM CDT 5 mg ondansetron (ZOFRAN) injection 4 mg 4 mg, intravenous, Administer over 2 Minutes, Every 6 hours PRN, nausea, vomiting, if not tolerating PO, Starting on Sat02/08/21 at 2226, Indications: Nausea and VomitingIndications:Nausea and Vomiting Given 02/17/2021 9:58 PM CDT 4 mg Given 02/16/2021 7:36 PM CDT 4 mg Given 02/14/2021 1:05 PM CDT 4 mg ondansetron ODT (ZOFRAN-ODT) disintegrating tablet 4 mg 4 mg, oral, Every 6 hours PRN, nausea, vomiting, Starting on Sat02/08/21 at 2226, Indications: Nausea and VomitingIndications:Nausea and Vomiting pantoprazole (PROTONIX) injection 40 mg 40 mg, intravenous, Administer over 2 Minutes, Daily, First dose on Sat02/09/21 at 0200, For IV Push administration for adults- 40 mg vial: add 10 mL of sodium chloride 0.9% to achieve a final concentration of 4 mg/mL, Indications: Stress Ulcer ProphylaxisIndications:Stress Ulcer Prophylaxis Given 02/09/2021 1:33 AM CDT 40 mg pantoprazole (PROTONIX) injection 40 mg 40 mg, intravenous, Administer over 2 Minutes, 2 times daily, First dose on [place] 02/16/21 at 2100, For IV Push administration for adults- 40 mg vial: add 10 mL of sodium chloride 0.9% to achieve a final concentration of 4 mg/mL, Indications: GI BleedIndications:GI Bleed Given 02/20/2021 9:27 AM CDT 40 mg Given 02/19/2021 8:27 PM CDT 40 mg Given 02/19/2021 8:55 AM CDT [address] (PROTONIX) extended release tablet 40 mg 40 mg, oral, Every morning, First dose on [place] 02/09/21 at 1030, Do not crush, chew, cut, dissolve, open or otherwise manipulate tablet/capsule., Indications: Treatment of Non-Bleeding Gastric Disorder, On hold since [place] 02/12/2021 at 1319 until manually unheldIndications:Treatment of Non-Bleeding Gastric Disorder Given 02/09/2021 11:31 AM CDT 40 mg piperacillin-tazobactam (ZOSYN) 3.375 g in sodium chloride 0.9% 100 mL IVPB 3.375 g, intravenous, at 200 mL/hr, Administer over 30 Minutes, Every 8 hours, First dose on [facility] 02/11/21 at 1645, Mini-Bag Plus bag, Indications: Abdominal/Pelvic Infection, Pneumonia, AspirationIndications:Abdominal/P elvic Infection,Pneumonia, Aspiration New Bag 02/16/2021 12:34 AM CDT 3.375 g 200 mL/hr New Bag 02/15/2021 5:31 PM CDT 3.375 g 200 mL/hr New Bag 02/15/2021 9:25 AM CDT 3.375 g 200 mL/hr piperacillin-tazobactam (ZOSYN) 4.5 g in sodium chloride 0.9% 100 mL IVPB 4.5 g, intravenous, at 200 mL/hr, Administer over 30 Minutes, Every 8 hours scheduled, First dose (after last modification) on [place] 02/16/21 at 1100, Mini-Bag Plus bag, Indications: Abdominal/Pelvic Infection, Pneumonia, AspirationIndications:Abdominal/Pel beatrice Infection,Pneumonia, Aspiration New Bag 02/18/2021 11:28 AM CDT 4.5 g 200 mL/hr New Bag 02/18/2021 3:56 AM CDT 4.5 g 200 mL/hr New Bag 02/17/2021 9:10 PM CDT 4.5 g 200 mL/hr potassium chloride (KLOR-CON) packet 40 mEq 40 mEq, oral, Once, On [place] 02/19/21 at 0945, For 1 dose, Dissolve one packet in at least 120 mL of cold water or other beverage prior to administration. Given 02/19/2021 9:43 AM CDT 40 mEq potassium chloride 10 mEq/100 mL in sterile water (premix) 10 mEq 10 mEq, intravenous, at 100 mL/hr, Administer over 1 Hours, Once, On [place] 02/09/21 at 0200, For 1 dose, Total dose = 40 mEq, Indications: hypokalemiaIndications:hypokalemia New Bag 02/09/2021 1:34 AM CDT 10 mEq 100 mL/hr potassium chloride 10 mEq/100 mL in sterile water (premix) 10 mEq 10 mEq, intravenous, at 100 mL/hr, Administer over 1 Hours, Once, On [place] 02/09/21 at 0300, For 1 dose, Start after completion of initial dose. Total dose = 40 mEq, Indications: hypokalemiaIndications:hypokalemia New 02/09/2021 2:37 AM CDT 10 mEq 100 mL/hr potassium chloride 10 mEq/100 mL in sterile water (premix) 10 mEq 10 mEq, intravenous, at 100 mL/hr, Administer over 1 Hours, Once, On [place] 02/09/21 at 0400, For 1 dose, Start after completion of second dose. Total dose = 40 mEq, Indications: hypokalemiaIndications:hypokalemia New Bag 02/09/2021 3:34 AM CDT 10 mEq 100 mL/hr potassium chloride 10 mEq/100 mL in sterile water (premix) 10 mEq 10 mEq, intravenous, at 100 mL/hr, Administer over 1 Hours, Once, On [place] 02/09/21 at 0500, For 1 dose, Start after completion of third dose. Total dose = 40 mEq, Indications: hypokalemiaIndications:hypokalemia New Bag 02/09/2021 4:39 AM CDT 10 mEq 100 mL/hr potassium chloride 10 mEq/100 mL in sterile water (premix) 10 mEq 10 mEq, intravenous, at 100 mL/hr, Administer over 1 Hours, Once, On [place] 02/09/21 at 1045, For 1 dose, Total dose = 40 mEq, Indications: hypokalemiaIndications:hypokalemia [facility] 02/09/2021 11:51 AM CDT 10 mE q 100 mL/hr potassium chloride 10 mEq/100 mL in sterile water (premix) 10 mEq 10 mEq, intravenous, at 100 mL/hr, Administer over 1 Hours, Once, On [place] 02/09/21 at 1145, For 1 dose, Start after completion of initial dose. Total dose = 40 mEq, Indications: hypokalemiaIndications:hypokalemia [facility] 02/09/2021 1:13 PM CDT 10 mEq 100 mL/hr potassium chloride 10 mEq/100 mL in sterile water (premix) 10 mEq 10 mEq, intravenous, at 100 mL/hr, Administer over 1 Hours, Once, On [place] 02/09/21 at 1245, For 1 dose, Start after completion of second dose. Total dose = 40 mEq, Indications: hypokalemiaIndications:hypokalemia [facility] 02/09/2021 3:29 PM CDT 10 mEq 100 mL/hr potassium chloride 10 mEq/100 mL in sterile water (premix) 10 mEq 10 mEq, intravenous, at 100 mL/hr, Administer over 1 Hours, Once, On [place] 02/09/21 at 1345, For 1 dose, Start after completion of third dose. Total dose = 40 mEq, Indications: hypokalemiaIndications:hypokalemia [facility] 02/09/2021 4:59 PM CDT 10 mEq 100 mL/hr potassium chloride 10 mEq/100 mL in sterile water (premix) 10 mEq 10 mEq, intravenous, at 100 mL/hr, Administer over 1 Hours, Once, On Sat02/13/21 at 0945, For 1 dose, Total dose = 40 mEq, Indications: hypokalemiaIndications:hypokalemia [facility] 02/13/2021 10:45 AM CDT 10 mE q 100 mL/hr potassium chloride 10 mEq/100 mL in sterile water (premix) 10 mEq 10 mEq, intravenous, at 100 mL/hr, Administer over 1 Hours, Once, On Sat02/13/21 at 1045, For 1 dose, Start after completion of initial dose. Total dose = 40 mEq, Indications: hypokalemiaIndications:hypokalemia [facility] 02/13/2021 11:49 AM CDT 10 mE q 100 mL/hr potassium chloride 10 mEq/100 mL in sterile water (premix) 10 mEq 10 mEq, intravenous, at 100 mL/hr, Administer over 1 Hours, Once, On Sat02/13/21 at 1145, For 1 dose, Start after completion of second dose. Total dose = 40 mEq, Indications: hypokalemiaIndications:hypokalemia [facility] 02/13/2021 12:55 PM CDT 10 mE q 100 mL/hr potassium chloride 10 mEq/100 mL in sterile water (premix) 10 mEq 10 mEq, intravenous, at 100 mL/hr, Administer over 1 Hours, Once, On Sat02/13/21 at 1245, For 1 dose, Start after completion of third dose. Total dose = 40 mEq, Indications: hypokalemiaIndications:hypokalemia [facility] 02/13/2021 2:02 PM CDT 10 mEq 100 mL/hr potassium chloride 10 mEq/100 mL in sterile water (premix) 10 mEq 10 mEq, intravenous, at 100 mL/hr, Administer over 1 Hours, Once, On [place] 02/16/21 at 0445, For 1 dose, Total dose = 40 mEq, Indications: hypokalemiaIndications:hypokalemia [facility] 02/16/2021 4:48 AM CDT 10 mEq 100 mL/hr potassium chloride 10 mEq/100 mL in sterile water (premix) 10 mEq 10 mEq, intravenous, at 100 mL/hr, Administer over 1 Hours, Once, On [place] 02/16/21 at 0545, For 1 dose, Start after completion of initial dose. Total dose = 40 mEq, Indications: hypokalemiaIndications:hypokalemia [facility] 02/16/2021 5:45 AM CDT 10 mEq 100 mL/hr potassium chloride 10 mEq/100 mL in sterile water (premix) 10 mEq 10 mEq, intravenous, at 100 mL/hr, Administer over 1 Hours, Once, On [place] 02/16/21 at 0645, For 1 dose, Start after completion of second dose. Total dose = 40 mEq, Indications: hypokalemiaIndications:hypokalemia [facility] 02/16/2021 7:11 AM CDT 10 mEq 100 mL/hr potassium chloride 10 mEq/100 mL in sterile water (premix) 10 mEq 10 mEq, intravenous, at 100 mL/hr, Administer over 1 Hours, Once, On [place] 02/16/21 at 0745, For 1 dose, Start after completion of third dose. Total dose = 40 mEq, Indications: hypokalemiaIndications:hypokalemia [facility] 02/16/2021 9:07 AM CDT 10 mEq 100 mL/hr potassium chloride 10 mEq/100 mL in sterile water (premix) 10 mEq 10 mEq, intravenous, at 100 mL/hr, Administer over 1 Hours, Once, On Sat02/17/21 at 0900, For 1 dose, Total dose = 40 mEq, Indications: hypokalemiaIndications:hypokalemia [facility] 02/17/2021 12:19 PM CDT 10 mE q 100 mL/hr potassium chloride 10 mEq/100 mL in sterile water (premix) 10 mEq 10 mEq, intravenous, at 100 mL/hr, Administer over 1 Hours, Once, On Sat02/17/21 at 1000, For 1 dose, Start after completion of initial dose. Total dose = 40 mEq, Indications: hypokalemiaIndications:hypokalemia [facility] 02/17/2021 2:49 PM CDT 10 mEq 100 mL/hr potassium chloride 10 mEq/100 mL in sterile water (premix) 10 mEq 10 mEq, intravenous, at 100 mL/hr, Administer over 1 Hours, Once, On Sat02/17/21 at 1100, For 1 dose, Start after completion of second dose. Total dose = 40 mEq, Indications: hypokalemiaIndications:hypokalemia [facility] 02/17/2021 1:50 PM CDT 10 mEq 100 mL/hr potassium chloride 10 mEq/100 mL in sterile water (premix) 10 mEq 10 mEq, intravenous, at 100 mL/hr, Administer over 1 Hours, Once, On Sat02/17/21 at 1200, For 1 dose, Start after completion of third dose. Total dose = 40 mEq, Indications: hypokalemiaIndications:hypokalemia New 02/17/2021 12:50 PM CDT 10 mE q 100 mL/hr potassium chloride ER (KLOR-CON) extended release tablet 40 mEq 40 mEq, oral, Once, On Sat02/09/21 at 0200, For 1 dose, Do not crush, chew, cut, dissolve, open or otherwise manipulate tablet/capsule. Given 02/09/2021 1:34 AM CDT 40 mEq potassium chloride ER (KLOR-CON) extended release tablet 40 mEq 40 mEq, oral, Once, On Sat02/09/21 at 1045, For 1 dose, Do not crush, chew, cut, dissolve, open or otherwise manipulate tablet/capsule. Given 02/09/2021 11:31 AM CDT 40 mEq potassium chloride ER (KLOR-CON) extended release tablet 40 mEq 40 mEq, oral, Once, On 02/20/21 at 1015, For 1 dose, Do not crush, chew, cut, dissolve, open or otherwise manipulate tablet/capsule. Given 02/20/2021 9:52 AM CDT 40 mEq prochlorperazine (COMPAZINE) injection 10 mg 10 mg, intravenous, Administer over 2 Minutes, Every 6 hours PRN, nausea, vomiting, Starting on Sat02/08/21 at 2234 Given 02/16/2021 4:51 AM CDT 10 mg Given 02/09/2021 4:59 PM CDT 10 mg Given 02/08/2021 10:46 PM CDT 10 mg sodium chloride 0.9% bolus 1,000 mL 1,000 mL, intravenous, at 1,000 mL/hr, Administer over 1 Hours, Once, On Sat02/08/21 at 1813, For 1 dose New 02/08/2021 6:40 PM CDT 1,000 mL 1000 mL/hr sodium chloride 0.9% bolus 500 mL 500 mL, intravenous, at 500 mL/hr, Administer over 1 Hours, Once, On Sat02/08/21 at 1911, For 1 dose New 02/08/2021 7:21 PM CDT 500 mL 500 mL/hr sodium chloride 0.9% flush 0.5-20 mL 0.5-20 mL, intra-catheter, Every 8 hours scheduled, First dose on Sat02/08/21 at 2300, Flush volume based on line type and size. Given 02/15/2021 9:28 PM CDT 5 mL Given 02/15/2021 1:17 PM CDT 10 mL Given 02/14/2021 5:58 AM CDT 10 mL sodium chloride 0.9% flush 5-10 mL 5-10 mL, intra-catheter, Every 8 hours scheduled, First dose on Sat02/09/21 at 1545, Flush volume based on line type, size, and protocol. Given 02/16/2021 3:11 PM CDT 10 mL Given 02/16/2021 9:09 AM CDT 10 mL Given 02/10/2021 9:00 PM CDT 10 mL sodium chloride 0.9% flush 5-10 mL 5-10 mL, intra-catheter, As needed, line care, with each use, Starting on Sat02/09/21 at 1507, Flush volume based on line type, size, and protocol. sodium chloride 0.9% flush 5-10 mL 5-10 mL, intra-catheter, Every 12 hours scheduled, First dose on Sat02/16/21 at 1245, Flush volume based on line type, size, and protocol. Given 02/20/2021 9:33 AM CDT 10 mL Given 02/19/2021 8:35 PM CDT 10 mL Given 02/19/2021 8:57 AM CDT 10 mL sodium chloride 0.9% flush 5-20 mL 5-20 mL, intra-catheter, As needed, line care, with each use, Starting on Sat02/16/21 at 1201, Flush volume based on line type, size, and protocol. sodium chloride 0.9% infusion 100 mL/hr, intravenous, Continuous, Starting on Sat02/08/21 at 2300 New Bag 02/08/2021 10:46 PM CDT 100 mL/hr 100 mL/hr [id number] macroaggregated albumin (MAA) injection 5.2 millicurie 5.2 millicurie, intravenous, Once in imaging, radiopharmaceutical, Starting on Sat02/09/21 at 0815, For 1 dose, Indications: Diagnostic RadiographyIndications:Diagnos tic Radiography Given 02/09/2021 8:15 AM CDT 5.2 millicuries vancomycin (VANCOCIN) 750 mg in sodium chloride 0.9% 250 mL IVPB 750 mg, intravenous, at 257.5 mL/hr, Administer over 60 Minutes, Once, On Sat02/08/21 at 2000, For 1 dose, Indications: SepsisIndications:Sepsis New Bag 02/08/2021 9:27 PM CDT 750 mg 257.5 mL/hr vancomycin (VANCOCIN) 750 mg in sodium chloride 0.9% 250 mL IVPB 750 mg, intravenous, at 257.5 mL/hr, Administer over 60 Minutes, Every 24 hours, First dose on Sat02/09/21 at 2100, Indications: SepsisIndications:Sepsis New Bag 02/10/2021 12:34 AM CDT 750 mg 257.5 mL/hr vancomycin 1,000 mg/200 mL in dextrose 5% (premix) 1,000 mg 1,000 mg, intravenous, Administer over 60 Minutes, Every 24 hours, First dose (after last modification) on Sat02/10/21 at 2100, Indications: SepsisIndications:Sepsis New Bag 02/10/2021 11:03 PM CDT 1,000 mg [id number] xenon 10 mci gas 8.6 millicurie 8.6 millicurie, inhalation, Once in imaging, radiopharmaceutical, Starting on Sat02/09/21 at 0810, For 1 dose Given 02/09/2021 8:10 AM CDT 8.6 millicuries documented in this encounter Discontinued Medications Medication Sig Discontinue Reason Start Date End Da te aspirin 81 mg enteric coated tablet [The details of the medication are not available because there are pending changes by a home health clinician.] 04/28/2020 02/09/2021 clonazePAM (KlonoPIN) 1 mg tabletIndications:Panic Disorder Take 1 mg by mouth 2 (two) times a day 09/09/2019 02/09/2021 levocetirizine (XYZAL) 5 mg tablet Take 5 mg by mouth daily with lunch 02/09/2021 losartan (COZAAR) 25 mg tablet Take 1 tablet (25 mg total) by mouth daily 01/27/2021 02/09/2021 prochlorperazine (Compazine) 10 mg tabletIndications:Nausea and Vomiting Take 10 mg by mouth every 6 (six) hours as needed for nausea or vomiting. Indications: nausea and vomiting 02/09/2021 tamsulosin (FLOMAX) 0.4 mg extended release capsule tamsulosin 0.4 mg capsule TAKE 1 CAPSULE BY MOUTH EVERY DAY 05/10/2015 02/09/2021 traMADoL (ULTRAM) 50 mg tablet 12/13/2020 02/09/2021 OLANZapine (ZyPREXA ZYDIS) 10 mg disintegrating tabletIndications:Depres mar Treatment Adjunct,Mixed Bipolar I Disorder Take 1 tablet (10 mg total) by mouth nightly Reorder 01/26/2021 02/20/2021 OLANZapine (ZyPREXA ZYDIS) 5 mg disintegrating tabletIndications:Depres mar Treatment Adjunct,Mixed Bipolar I Disorder Take 1 tablet (5 mg total) by mouth daily Reorder 01/27/2021 02/20/2021 OLANZapine (ZyPREXA ZYDIS) 5 mg disintegrating tablet Take 5 mg by mouth every 8 (eight) hours as needed (agitation) Stop Taking at Discharge 02/20/2021 documented as of this encounter Historical Medications * This list may reflect changes made after this encounter. aspirin 81 mg enteric coated tablet Take 1 tablet (81 mg total) by mouth every other day OLANZapine (ZyPREXA ZYDIS) 5 mg disintegrating tablet Take 5 mg by mouth every 8 (eight) hours as needed (agitation) 1 prazosin (MINIPRESS) 1 mg capsule Take 1 mg by mouth nightly 1 levETIRAcetam (KEPPRA) 250 mg tablet Take 250 mg by mouth 2 (two) times a day 1 loratadine 10 mg capsule Take 10 mg by mouth daily 1 added in this encounter Active and Recently Administered Medications Times are shown in CDT. Scheduled Medication Order 02/18/2021 02/19/2021 02/20/2021 aspirin enteric coated tablet 81 mg 81 mg, oral, Every other day, First dose on [place] 02/09/21 at 1030, Do not crush, chew, cut, dissolve, open or otherwise manipulate tablet/capsule. 0900 (Dose Auto Held) 0858 (Unheld by Provider - Provider: Sharad Mcdonnell MD) atorvastatin (LIPITOR) tablet 20 mg 20 mg, oral, Nightly, First dose on [place] 02/09/21 at 2100 2100 (Dose Auto Held) 2100 (Dose Auto Held) 0858 (Unheld by Provider - Provider: Sharad Mcdonnell MD) cyanocobalamin (Vitamin B-12) sublingual tablet 1,000 mcg 1,000 mcg, oral, Daily, First dose on [place] 02/09/21 at 1030 0900 (Dose Auto Held) 0900 (Dose Auto Held) 0858 (Unheld by Provider - Provider: Sharad Mcdonnell MD)0927 (Given - Provider: Jenny Walters, RN) cyclobenzaprine (FLEXERIL) tablet 10 mg 10 mg, oral, 2 times daily, First dose on Sat02/09/21 at 1030, Indications: Muscle Spasm 0900 (Dose Auto Held)2100 (Dose Auto Held) 0900 (Dose Auto Held)2100 (Dose Auto Held) 0858 (Unheld by Provider - Provider: Sharad Mcdonnell MD)0927 (Given - Provider: Jenny Walters, KAT) dicyclomine (BENTYL) capsule 10 mg 10 mg, oral, 3 times daily, First dose on Sat02/09/21 at 1600, Indications: Irritable Bowel Syndrome 0900 (Dose Auto Held)1600 (Dose Auto Held)2100 (Dose Auto Held) 0900 (Dose Auto Held)1600 (Dose Auto Held)2100 (Dose Auto Held) 0858 (Unheld by Provider - Provider: Sharad Mcdonnell MD)1224 (Given - Provider: Jane Marie)1521 (Given - Provider: Jane Marie) docusate sodium (COLACE) capsule 100 mg 100 mg, oral, Daily, First dose on Sat02/09/21 at 1030, Indications: constipation 0900 (Dose Auto Held) 0900 (Dose Auto Held) 0858 (Unheld by Provider - Provider: Sharad Mcdonnell MD)0932 (Not Given - Provider: Jenny Walters, KAT - Reason: Contraindicated)1223 (Given - Provider: Jane Marie) fluticasone propionate (FLONASE) 50 mcg/actuation nasal spray 2 spray 2 spray, each nostril, Daily, First dose on Sat02/09/21 at 1030 0928 (Not Given - Provider: Lynda Burris RN - Reason: Patient/family refused) 0856 (Given - Provider: Lynda Burris RN) 0932 (Given - Provider: Jenny Walters, RN) folic acid (FOLVITE) tablet 1 mg 1 mg, oral, Daily with dinner, First dose on Sat02/09/21 at 1800, Indications: Folate Deficiency 1800 (Dose Auto Held) 1800 (Dose Auto Held) 0858 (Unheld by Provider - Provider: Sharad Mcdonnell MD)1800 (Due - Provider: Sharad Mcdonnell MD) heparin 5,000 unit/mL injection 5,000 Units 5,000 Units, subcutaneous, Every 12 hours scheduled, First dose on Sat02/19/21 at 0945, Indications: Deep Vein Thrombosis Prevention 0943 (Given - Provider: Lynda Burris, KAT)7 (Given - Provider: Jose Quinonez, KAT) 0928 (Given - Provider: Jenny Walters, KAT) levETIRAcetam (KEPPRA) 250 mg in sodium chloride 0.9% 100 mL IVPB (CANCELED) 250 mg, intravenous, at 410 mL/hr, Administer over 15 Minutes, Every 12 hours scheduled, First dose (after last modification) on Sat02/10/21 at 1200, Room temperature only 0928 (New Bag - Provider: Lynda Burris, KAT)2002 (New Bag - Provider: Yeimi Greenfield RN) 0855 (New Bag - Provider: Lynda Burris RN)2029 (New Bag - Provider: Jose Quinonez, KAT) 0854 (Not Given - Provider: Jenny Walters, RN - Reason: Order Discontinued) levETIRAcetam (KEPPRA) tablet 250 mg 250 mg, oral, 2 times daily, First dose on Sat02/09/21 at 1030, May mix with 120 mL of enteral nutrition formula or disperse crushed tablets (500 mg tablet strength studied) in 10 mL of water, shake for 5 minutes to dissolve, and administer immediately via enteral feeding tube. 0900 (Dose Auto Held)2100 (Dose Auto Held) 0900 (Dose Auto Held)2100 (Dose Auto Held) 0854 (Unheld by Provider - Provider: Sharad Mcdonnell MD)0927 (Given - Provider: Jenny Walters, KAT) OLANZapine (ZyPREXA ZYDIS) disintegrating tablet 10 mg 10 mg, oral, Nightly, First dose on [place] 02/09/21 at 2100, Indications: Depression Treatment Adjunct, Mixed Bipolar I Disorder 2100 (Dose Auto Held) 2100 (Dose Auto Held) 0858 (Unheld by Provider - Provider: Sharad Mcdonnell MD) OLANZapine (ZyPREXA ZYDIS) disintegrating tablet 5 mg 5 mg, oral, Daily, First dose on [place]ma 02/09/21 at 1030, Indications: Depression Treatment Adjunct, Mixed Bipolar I Disorder 0900 (Dose Auto Held) 0900 (Dose Auto Held) 0858 (Unheld by Provider - Provider: Sharad Mcdonnell MD)1223 (Given - Provider: Jane Marie) pantoprazole (PROTONIX) injection 40 mg 40 mg, intravenous, Administer over 2 Minutes, 2 times daily, First dose on Sat02/16/21 at 2100, For IV Push administration for adults- 40 mg vial: add 10 mL of sodium chloride 0.9% to achieve a final concentration of 4 mg/mL, Indications: GI Bleed 0912 (Given - Provider: Lynda Burris RN)2002 (Given - Provider: Yeimi Greenfield RN) 0855 (Given - Provider: Lynda Burris, KAT)2026 (Given - Provider: Jose Quinonez RN) 0927 (Given - Provider: Jenny Walters, KAT) piperacillin-tazobactam (ZOSYN) 4.5 g in sodium chloride 0.9% 100 mL IVPB (CANCELED) 4.5 g, intravenous, at 200 mL/hr, Administer over 30 Minutes, Every 8 hours scheduled, First dose (after last modification) on Sat02/16/21 at 1100, Mini-Bag Plus bag, Indications: Abdominal/Pelvic Infection, Pneumonia, Aspiration 0356 (New Bag - Provider: Sarah Beth Guevara, KAT)0426 (Stopped - Provider: Sarah Beth Guevara RN)1128 (New Bag - Provider: Lynda Burris, KAT) potassium chloride (KLOR-CON) packet 40 mEq (COMPLETED) 40 mEq, oral, Once, On 02/19/21 at 0945, For 1 dose, Dissolve one packet in at least 120 mL of cold water or other beverage prior to administration. 0943 (Given - Provider: Lynda Burris, KAT) potassium chloride ER (KLOR-CON) extended release tablet 40 mEq (COMPLETED) 40 mEq, oral, Once, On Sat02/20/21 at 1015, For 1 dose, Do not crush, chew, cut, dissolve, open or otherwise manipulate tablet/capsule. 0952 (Given - Provider: Jenny Walters, KAT) prazosin (MINIPRESS) capsule 1 mg 1 mg, oral, Nightly, First dose on Sat02/09/21 at 2100, On hold since 02/12/2021 at 1319 until manually unheld 2100 (Dose Auto Held) 2100 (Dose Auto Held) sodium chloride 0.9% flush 5-10 mL 5-10 mL, intra-catheter, Every 12 hours scheduled, First dose on Sat02/16/21 at 1245, Flush volume based on line type, size, and protocol. 0921 (Given - Provider: Lynda Burris, KAT)2003 (Given - Provider: Yeimi Greenfield, KAT) 0857 (Given - Provider: Lynda Burris, KAT)2034 (Given - Provider: Jose Quinonez, KAT) 0933 (Given - Provider: Jenny Walters, KAT) Continuous Medication Order 02/18/2021 02/19/2021 02/20/2021 dextrose 5% and Lactated Ringer's infusion (CANCELED) 100 mL/hr, intravenous, Continuous, Starting on Sat02/10/21 at 0415 1058 (New Bag - Provider: Lynda Burris, KAT) PRN Medication Order 02/18/2021 02/19/2021 02/20/2021 acetaminophen (TYLENOL) 32 mg/mL oral solution 650 mg(Linked Group 1) 650 mg, feeding tube, Every 4 hours PRN, 1st line for pain, fever, Starting on Sat02/08/21 at 2226, Administer if patient receiving meds per tube., Indications: Fever, Pain 1535 (See Alternative - Provider: Lynda Burris RN)2002 (See Alternative - Provider: Yeimi Greenfield RN) 1854 (See Alternative - Provider: Lynda Burris RN) 0954 (See Alternative - Provider: Jenny Walters, KAT)1521 (See Alternative - Provider: Jane Marie) acetaminophen (TYLENOL) suppository 650 mg(Linked Group 1) 650 mg, rectal, Every 4 hours PRN, 1st line for pain, fever, Starting on Sat02/08/21 at 2226, Administer if patient cannot tolerate enteral route., Indications: Fever, Pain 1535 (See Alternative - Provider: Lynda Burris RN)2002 (See Alternative - Provider: Yeimi Greenfield RN) 1854 (See Alternative - Provider: Lynda Burris RN) 0954 (See Alternative - Provider: Jenny Walters RN)1521 (See Alternative - Provider: Jane Marie) acetaminophen (TYLENOL) tablet 650 mg(Linked Group 1) 650 mg, oral, Every 4 hours PRN, 1st line for pain, fever, Starting on Sat02/08/21 at 2226, Administer if patient can swallow tablets., Indications: Fever, Pain 1535 (Given - Provider: Lynda Burris RN)2002 (Given - Provider: Yeimi Greenfield RN) 1854 (Given - Provider: Lynda Burris RN) 0954 (Given - Provider: Jenny Walters RN)1521 (Given - Provider: Jane Marie) dextrose (D10W) 10% bolus 250 mL(Linked Group 2) 250 mL, intravenous, at 1,000 mL/hr, Administer over 15 Minutes, Every 15 min PRN, blood glucose less than 70 mg/dL and UNABLE to swallow/take PO glucose/juice., Starting on Sat02/10/21 at 0331, After treatment for hypoglycemia, recheck BG followed by treatment every 15 minutes until the BG is greater than 100 mg/dL. Then check BG 1 hour post treatment. If BG is less than 100 mg/dL, repeat Q15 minute BG checks and treatment. Call MD for each episode of hypoglycemia., Indications: hypoglycemic disorder dextrose oral liquid liquid 15 g(Linked Group 2) 15 g, oral, Every 15 min PRN, low blood sugar, blood glucose less than 70 mg/dL, Starting on Sat02/10/21 at 0331, If patient is alert and able to eat/drink, give 15 gm glucose or one juice (4 fluid ounces) NOT ORANGE JUICE. After treatment for hypoglycemia, recheck BG followed by treatment every 15 minutes until the BG is greater than 100 mg/dL. Then check BG 1 hour post-treatment. If BG is less than 100 mg/dL, repeat Q15 minute BG checks and treatment. Call MD for each episode of hypoglycemia., Indications: hypoglycemic disorder glucagon injection 1 mg 1 mg, intramuscular, Administer over 1 Minutes, Every 30 min PRN, low blood sugar, blood glucose less than 70 mg/dL AND no IV access AND unable to take PO glucose/jiuce., Starting on Sat02/10/21 at 033, After Glucagon is administered, position patient on side if possible to avoid aspiration. Obtain IV access. Follow glucagon treatment with glucose treatment or IV dextrose. After treatment for hypoglycemia, recheck BG followed by treatment every 15 minutes until the BG is greater than 100 mg/dL. Then check BG 1 hour post treatment. If BG is less than 100 mg/dL, repeat Q15 minute BG checks and treatment. Call MD for each episode of hypoglycemia. Reconstitute 1 mg vial with 1 mL SWFI. Use immediately following reconstitution., Indications: Hypoglycemia LORazepam (ATIVAN) injection 0.5 mg 0.5 mg, intravenous, Every 8 hours PRN, anxiety, Starting on Sat02/13/21 at 1537, For IV administration, dilute with equal volume of 0.9% sodium chloride. Do not exceed a rate of 2 mg/minute 0523 (Given - Provider: Sarah Beth Guevara, KAT)1517 (Given - Provider: Lynda Burris, KAT) 0356 (Given - Provider: Yeimi Greenfield RN)1208 (Given - Provider: Lynda Burris, KAT)2110 (Given - Provider: Jose Quinonez, KAT) 0928 (Given - Provider: Jenny Walters RN) OLANZapine (ZyPREXA ZYDIS) disintegrating tablet 5 mg 5 mg, oral, Every 8 hours PRN, agitation, Starting on [place] 02/09/21 at 0955 0920 (Given - Provider: Lynda Burris, KAT)2002 (Given - Provider: Yeimi Greenfield RN) 0855 (Given - Provider: Lynda Burris, KAT)1655 (Given - Provider: Lynda Burris, KAT) 0511 (Given - Provider: Jose Quinonez RN) ondansetron (ZOFRAN) injection 4 mg(Linked Group 3) 4 mg, intravenous, Administer over 2 Minutes, Every 6 hours PRN, nausea, vomiting, if not tolerating PO, Starting on Sat02/08/21 at 2226, Indications: Nausea and Vomiting ondansetron ODT (ZOFRAN-ODT) disintegrating tablet 4 mg(Linked Group 3) 4 mg, oral, Every 6 hours PRN, nausea, vomiting, Starting on Sat02/08/21 at 2226, Indications: Nausea and Vomiting prochlorperazine (COMPAZINE) injection 10 mg 10 mg, intravenous, Administer over 2 Minutes, Every 6 hours PRN, nausea, vomiting, Starting on Sat02/08/21 at 2234 sodium chloride 0.9% flush 0.5-20 mL 0.5-20 mL, intra-catheter, As needed, line care, Starting on Sat02/08/21 at 2226, Flush volume based on line type and size. Flush before and after each use. sodium chloride 0.9% flush 5-10 mL 5-10 mL, intra-catheter, As needed, line care, with each use, Starting on Sat02/09/21 at 1507, Flush volume based on line type, size, and protocol. sodium chloride 0.9% flush 5-20 mL 5-20 mL, intra-catheter, As needed, line care, with each use, Starting on Sat02/16/21 at 1201, Flush volume based on line type, size, and protocol. Linked Groups Order Group 1: acetaminophen (TYLENOL) tablet 650 mgJump to med 650 mg, oral, Every 4 hours PRN, 1st line for pain, fever, Starting on Sat02/08/21 at 2226, Administer if patient can swallow tablets., Indications: Fever, Pain Or acetaminophen (TYLENOL) 32 mg/mL oral solution 650 mgJump to med 650 mg, feeding tube, Every 4 hours PRN, 1st line for pain, fever, Starting on Sat02/08/21 at 2226, Administer if patient receiving meds per tube., Indications: Fever, Pain Or acetaminophen (TYLENOL) suppository 650 mgJump to med 650 mg, rectal, Every 4 hours PRN, 1st line for pain, fever, Starting on Sat02/08/21 at 2226, Administer if patient cannot tolerate enteral route., Indications: Fever, Pain Group 2: dextrose oral liquid liquid 15 gJump to med 15 g, oral, Every 15 min PRN, low blood sugar, blood glucose less than 70 mg/dL, Starting on Sat02/10/21 at 0331, If patient is alert and able to eat/drink, give 15 gm glucose or one juice (4 fluid ounces) NOT ORANGE JUICE. After treatment for hypoglycemia, recheck BG followed by treatment every 15 minutes until the BG is greater than 100 mg/dL. Then check BG 1 hour post-treatment. If BG is less than 100 mg/dL, repeat Q15 minute BG checks and treatment. Call MD for each episode of hypoglycemia., Indications: hypoglycemic disorder Or dextrose (D10W) 10% bolus 250 mLJump to med 250 mL, intravenous, at 1,000 mL/hr, Administer over 15 Minutes, Every 15 min PRN, blood glucose less than 70 mg/dL and UNABLE to swallow/take PO glucose/juice., Starting on Sat02/10/21 at 0331, After treatment for hypoglycemia, recheck BG followed by treatment every 15 minutes until the BG is greater than 100 mg/dL. Then check BG 1 hour post treatment. If BG is less than 100 mg/dL, repeat Q15 minute BG checks and treatment. Call MD for each episode of hypoglycemia., Indications: hypoglycemic disorder Group 3: ondansetron ODT (ZOFRAN-ODT) disintegrating tablet 4 mgJump to med 4 mg, oral, Every 6 hours PRN, nausea, vomiting, Starting on Sat02/08/21 at 2226, Indications: Nausea and Vomiting Or ondansetron (ZOFRAN) injection 4 mgJump to med 4 mg, intravenous, Administer over 2 Minutes, Every 6 hours PRN, nausea, vomiting, if not tolerating PO, Starting on Sat02/08/21 at 2226, Indications: Nausea and Vomiting documented in this encounter Orders Medications Ordered That Guy ht Not Have Been Administered Count Last Ordered Date First Ordered Date potassium chloride (KLOR-CON ) packet 40 mEq 1 02/20/2021 sodium chloride 0.9% IVPB 0-250 mL 2 202002/16/2021 sodium chloride 0.9% flush 5-20 mL 1 2020 iron sucrose (VENOFER) 300 m g in sodium chloride 0.9% 250 mL IVPB 1 02/12/2021 dextrose oral liquid liquid 15 g 1 02/11/20 21 glucagon injection 1 mg 1 02/10/2021 levETIRAcetam (KEPPRA) 500 m g/5 mL injection - ADS Override Pull 1 02/10/2021 atorvastatin (LIPITOR) tablet 20 mg 1 02/09 folic acid (FOLVITE) tablet 1 mg 1 02/10/20 21 LORazepam (ATIVAN) injection 0.5 mg 1 02/09 prazosin (MINIPRESS) capsule 1 mg 1 021 sodium chloride 0.9% flush 5-10 mL 1 2020 acetaminophen (TYLENOL) 32 m g/mL oral solution 650 mg 1 02/08/2021 acetaminophen (TYLENOL) suppository 650 mg 1 02/08/2021 heparin 5,000 unit/mL inject ion 5,000 Units 1 02/08/2021 ondansetron ODT (ZOFRAN-ODT) disintegrating tablet 4 mg 1 02/08/2021 sodium chloride 0.9% flush 0.5-20 mL 1 01/12 vancomycin (VANCOCIN) 1,000 mg solution - ADS Override Pull 1 02/08/2021 Lab Orders Without Results Count Last Ordered D ate First Ordered Date POCT GLUCOSE DEVICE 31 02/19/2021 02/11/20 21 Imaging Orders Without Results Count Last Order ed Date First Ordered Date HOME O2 EVAL (DESATURATION SCREEN) 1 2020 Diet Count Last Ordered Date First Orde red Date ADULT DISCHARGE DIET 2 02/20/2021 Nursing Count Last Ordered Date First Orde red Date DISCHARGE ACTIVITY 2 02/20/2021 OTHER FOLLOW UP 2 02/20/2021 REMOVE DRAINS/TUBES 1 02/17/2021 VERIFY INFORMED CONSENT 1 02/16/2021 CARDIO RESPIRATORY MONITORING 1 02/08/2021 CONTINUOUS PULSE OXIMETRY 1 02/08/2021 WEIGH PATIENT 1 02/08/2021 Consult Count Last Ordered Date First Orde red Date IP CONSULT TO INFECTIOUS DISEASES 1 021 IP CONSULT TO GENERAL SURGERY 1 02/09/2021 IP CONSULT TO PSYCHIATRY 1 02/09/2021 CONSULT TO BEHAVIORAL HEALTH [facility] 1 021 IP CONSULT TO NUTRITION SERVICES 1 02/09/20 21 IP CONSULT TO PULMONOLOGY 1 02/08/2021 IV Count Last Ordered Date First Orde red Date INSERT PERIPHERAL IV 1 02/08/2021 ADT Patient Update Count Last Ordered Date Firs t Ordered Date ED IP DECISION TO ADMIT 1 02/08/2021 documented in this encounter Additional Health Concerns Infection Onset Date Last Indicated Resolved Time 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
--- OUTSIDE RECORDS SUMMARY | 2024-08-08 16:04 | XMS_ITS | Encounter Summary ---
Author Organization [facility] Healthcare Address [address] [place] [address] Care Team Providers Care Tile Grinder Name Role Phone Lazarus Albert MD Primary Care Provider [phone] Encounter Details Date Type Department Care Team (Late st Contact Info) Description 05/05/2020 3:25 PM CDT Lab [address] [address] Social History Tobacco Use Types Packs/Day Years Used Date Smoking Tobacco: Former Cigarettes 2 26.6 1 982 - 03/19/2008 E-cigarettes Smokeless Tobacco: Never Alcohol Use Standard Drinks/Week Comments Yes 0 (1 standard drink = 0.6 oz pur e alcohol) rarely Comments No Sex and Gender Information Value Date Recorded Sex Assigned at Not on file 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 Gender Identity Not on file Sexual Orientation Not on file documented as of this encounter Plan of Treatment Not on file documented as of this encounter Procedures Procedure Name Priority Date/Time Associated Diagnosis Comments GLUCOSE, RANDOM (OUTREACH) Routine 05/05/2020 8:50 AM CDT BASIC METABOLIC PANEL WITHOUT GLUCOSE, PLASMA (OUTREACH) Routine 05/05/2020 8:50 AM CDT VANCOMYCIN LEVEL TROUGH Routine 05/05/2020 8:50 AM CDT documented in this encounter Results * Vancomycin, trough (05/05/2020 8:50 AM CDT) Vancomycin trough 14.5 10.0 - 20.9 mcg/mL [facility] Blood specimen (specimen) 05/05/2020 8:50 AM CDT 05/05/2020 3:25 PM CDT Danyel Colin MD LAB BLOOD ORDERABLES F inal Result Performing Organization Address [facility] Co de Phone Number [facility] [place] [address] * Glucose, random (Outreach) (05/05/2020 8:50 AM CDT) Glucose 104 70 - 199 mg/dL [facility] Comment: Interpretive Data Fasting glucose >/= [...] Current interpretive data was last revised 2017. Blood specimen (specimen) 05/05/2020 8:50 AM CDT 05/05/2020 3:25 PM CDT Danyel Colin MD LAB BLOOD ORDERABLES F inal Result Performing Organization Address [facility] de Phone Number [facility] Department [place] [address] * Basic metabolic panel without glucose (05/05/2020 8:50 AM CDT) Sodium 143 135 - 145 mmol/L [facility] Potassium, pl 3.4 3.3 - 4.9 mmol/L [facility] Chloride 106 97 - 110 mmol/L [facility] CO2 28 22 - 32 mmol/L [facility] Anion gap 9 2 - 15 mmol/L [facility] BUN 8 8 - 25 mg/dL [facility] Creatinine 0.65 0.60 - 1.10 mg/dL [facility] Calcium 8.9 8.5 - 10.3 mg/dL [facility] Blood specimen (specimen) 05/05/2020 8:50 AM CDT 05/05/2020 3:25 PM CDT Danyel Colin MD LAB BLOOD ORDERABLES F inal Result [facility] [place] [address] documented in this encounter Visit Diagnoses Not on filedocumented in this encounter Additional Health Concerns Infection Onset Date Last Indicated Resolved Time 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
--- OUTSIDE RECORDS SUMMARY | 2024-08-08 16:04 | XMS_ITS | Encounter Summary ---
Author Organization [facility] Home Care [facility] es Address [address] [place] [address] Phone Care Team Providers Care Framing Carpenter Name Role Phone Lazarus Albert MD Primary Care Provider [phone] Reason for Visit * Auth/Cert Specialty Diagnoses / Procedures Referred By Susan t Referred To Contact Referral ID Status Reason Start Date Expiration Date Visits Re quested Visits Authorized [id number] 1 1 Encounter Details Date Type Department Care Team (Late st Contact Info) Description 05/08/2020 Home Care Visit [facility] Home Health - [address] [place] [address] Celestina Allred RN TRAVEL SCREENING CASE COMMUNICATION Social History Tobacco Use Types Packs/Day Years Used Date Smoking Tobacco: Former Cigarettes 2 26.6 1 982 - 03/19/2008 E-cigarettes Smokeless Tobacco: Never Alcohol Use Standard Drinks/Week Comments Yes 0 (1 standard drink = 0.6 oz pur e alcohol) rarely Comments No Sex and Gender Information Value Date Recorded Sex Assigned at Not on file 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 Gender Identity Not on file Sexual Orientation Not on file documented as of this encounter Plan of Treatment Not on file documented as of this encounter Visit Diagnoses Not on filedocumented in this encounter Additional Health Concerns Infection Onset Date Last Indicated Resolved Time 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
--- OUTSIDE RECORDS SUMMARY | 2024-08-08 16:04 | XMS_ITS | Encounter Summary ---
Author Organization [facility] Address [address] [place] [address] Phone Care Team Providers Care Latin Dancer Name Role Phone Lazarus Albert MD Primary Care Provider [phone] Reason for Visit * Reason Onset Date Comments OPAT 05/06/2020 Encounter Details Date Type Department Care Team (Late st Contact Info) Description 05/06/2020 Telephone [facility] Infectious Diseases [address] [place] [address] [address] [place] [address] Zaria Lopez OPAT Social History Tobacco Use Types Packs/Day Years Used Date Smoking Tobacco: Former Cigarettes 2 26.6 1 982 - 03/19/2008 E-cigarettes Smokeless Tobacco: Never Alcohol Use Standard Drinks/Week Comments Yes 0 (1 standard drink = 0.6 oz pur e alcohol) rarely Comments No Sex and Gender Information Value Date Recorded Sex Assigned at Not on file Legal Sex Female 5:42 AM FRONT END DEVELOPER JAVASCRIPT HTML CSS Gender Identity Not on file Sexual Orientation Not on file documented as of this encounter Miscellaneous Notes * Telephone Encounter - Zaria Lopez - 05/06/2020 11:39 AM CDT ----- Message from Chuckie Logan RPh sent at 05/06/2020 11:04 AM CDT ----- Erum Singleton 05/05/20 for Ms Weinberg Vanc tr 14.5, K 3.4, SCr 0.65 Ms Weinberg was asking if her PICC line can come out on 05/08/20 after she finishes her Vancomycin Chuckie ----- Message ----- From: Erum Heard NP Sent: 05/03/2020 12:44 PM CDT To: Chuckie Logan RP Thank you for the update! Appreciate your help. ~Erum ----- Message ----- From: Chuckie Logan RPh Sent: 05/03/2020 12:31 PM CDT To: Erum Heard NP, # Erum Spoke to the and he reported she was feeling fine and eating well For now he was treating it with diet Vanc protocol report was sent over late yesterday Chuckie ----- Message ----- From: Erum Heard NP Sent: 05/03/2020 12:15 PM CDT To: Chuckie Logan RP, Muñoz Id Nurse [place] Good afternoon, Thank you for getting Ms. Weinberg added to the vancomycin protocol! 05/07 for length of therapy please! Where you able to get in touch with her for the potassium? Would like to recheck it. I tried calling earlier today with no luck. Thanks, Erum ----- Message ----- From: Chuckie Logan RPh Sent: 05/03/2020 10:50 AM CDT To: Erum Heard NP, # Erum Weinberg thinks the length of therapy is until 05/08/20 We had down through 05/07/20 when she was discharged (and as below) Please advise on length of therapy Chuckie ----- Message ----- From: Erum Heard NP Sent: 05/02/2020 10:24 AM CDT To: Chuckie Logan RPh Good morning! Could we please add Ms. Weinberg to the Vancomycin Protocol? Plan is to do Vancomycin for two weeks from 04/24. Thanks! 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
--- OUTSIDE RECORDS SUMMARY | 2024-08-08 16:04 | XMS_ITS | Encounter Summary ---
Author Organization [facility] Home Care Serv[facility] es Address [address] [place] [address] Phone Care Team Providers Care Courtesy Driver Name Role Phone Lazarus Albert MD Primary Care Provider [phone] Reason for Visit * Auth/Cert Specialty Diagnoses / Procedures Referred By Susan t Referred To Contact Referral ID Status Reason Start Date Expiration Date Visits Re quested Visits Authorized [id number] 1 1 Encounter Details Date Type Department Care Team (Late st Contact Info) Description 05/22/2020 1:00 PM CDT Home Care Visit [facility] [address] [place] [address] Donna Mcintosh RN SN HOME VISIT Social History Tobacco Use Types Packs/Day Years Used Date Smoking Tobacco: Former Cigarettes 2 26.6 1 982 - 03/19/2008 E-cigarettes Smokeless Tobacco: Never Alcohol Use Standard Drinks/Week Comments Yes 0 (1 standard drink = 0.6 oz pur e alcohol) rarely Comments No Sex and Gender Information Value Date Recorded Sex Assigned at Not on file Legal Sex Female 5:42 AM SENIOR SQL SERVER DBA Gender Identity Not on file Sexual Orientation Not on file documented as of this encounter Last Filed Vital Signs Vital Sign Reading Time Taken Comments Blood Pressure 130/76 05/22/2020 1:30 PM CDT Pulse 87 05/22/2020 1:30 PM CDT Temperature 36.9 ??C (98.4 ??F) 05/22/2020 1:30 PM CD T Respiratory Rate 18 05/22/2020 1:30 PM CDT Oxygen Saturation 95% 05/22/2020 1:30 PM CDT Inhaled Oxygen Concentration - - Weight - - Height - - Body Mass Index - - documented in this encounter Plan of Treatment Not on file documented as of this encounter Visit Diagnoses Not on filedocumented in this encounter Additional Health Concerns Infection Onset Date Last Indicated Resolved Time 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, nares 04/22/20; 01/18/21; urine 01/14/21 09/19/2019 02/09/2021 10/10/2021 4:00 AM SENIOR SQL SERVER DBA documented as of this encounter Home Health Visit - Care Plan Visit Details Visit Type -SN Home Visit Discipline -[facility] Problems Problem Description Start Date Status Goals Interve ntions Homebound Status Disciplines: [facility] Patient's homebound status 04/29/2020 Active 1 goal linked to scheduled/documen tee intervention 1 goal intervention scheduled/document ed in this visit Monitor patient's vital signs every home health visit Disciplines: [facility] Monitor patient's vital signs every home health visit. 04/29/2020 Active 1 goal linked to scheduled/documen tee intervention 1 goal intervention scheduled/document ed in this visit Infection Prevention Disciplines: [facility] Infection Prevention 04/29/2020 Active 1 goal linked to scheduled/documen tee intervention 1 goal intervention scheduled/document ed in this visit Wound Risk of Infection Disciplines: [facility] Risk of infections related to wounds 04/29/2020 Active 1 goal linked to scheduled/documen tee intervention 1 goal intervention scheduled/document ed in this visit Wound Care Disciplines: [facility] Wound care needed 04/29/2020 Active 1 goal linked to scheduled/documen tee intervention 1 problem intervention scheduled/document ed in this visit 1 goal intervention scheduled/document ed in this visit Goals Goal Associated Problem Outcome Goal Met? Visit Notes Patient recieves care at the most appropriate care setting Description: Patient receives care at the most appropriate care setting. Homebound Status No Measure vital signs during every home health visit during episode of care Description: Home supervisor coin machine to measure vital signs during every home health visit during episode of care. Monitor patient's vital signs every home health visit No Verbalize signs of infection Description: Verbalize signs of infection Infection Prevention No Knowledgeable of infection Description: : Patient will remain free of infection and able to recognizes of signs of infection by end of IV therapy. Wound Risk of Infection No Progression towards healing Description: Wound show progression towards healing by end of 2 weeks Wound Care No Interventions Intervention Associated Problem/Goal Status Variance Visit Notes Homebound Status Description: Patient is homebound due to medical condition, immunosuppression, fall risk and unable to complete ADLs/Personal care as evidenced by recent abdominal mesh infection and now on IV antibiotics, and has open, draining abdominal wound.. Problem:Homebound Status Goal:Patient recieves care at the most appropriate care setting Completed Patient is homebound due to medical condition, immunosuppression, fall risk and unable to complete ADLs/Personal care as evidenced by recent abdominal mesh infection and now on IV antibiotics, and has open, draining abdominal wound.. Monitor Vital Signs Description: Monitor blood pressure, pulse, oxygen saturation, respirations Problem:Monitor patient's vital signs every home health visit Goal:Measure vital signs during every home health visit during episode of care Completed Educate Patient on Infection Prevention Description: Instruct patient on signs and symptoms of infection IE: fever, odor, change in color, increased amount of drainage, purulent drainage, warmth. Problem:Infection Prevention Goal:Verbalize signs of infection Completed Patient and verbalize understanding Instruct on the signs and symptoms of infection Description: Assess wound with each visit for s/sx of infection Problem:Wound Risk of Infection Goal:Knowledgeable of infection Completed No signs of infection noted. Skilled assessment wound Description: Full wound assessment including measurement weekly. Wound assessment each visit Problem:Wound Care Goal:Progression towards healing Completed measurement of tunnel taken today Perform dressing change Description: Perform dressing change: Site mid abdomen, Skilled Nurse/ pt/ cg to perform dressing change as of 05/08/20, Frequency BID and PRN for excess drainage or dislodgement of dressing. Wound care as follows: cleanse with normal saline or wound cleanser, pack wound at 5 o'clock with moistened packing strips, apply NS moistened gauze to wound bed, pack to base of wound, cover with dry dressing and secure with tape.. Problem:Wound Care Completed returns correct demo documented in this encounter Care Teams Courtesy Driver Relationship Specialty Start Date End Date Lazarus Albert MD [address] [place] [address] PCP - General 09/25/19 03/04/24 documented as of this encounter
--- OUTSIDE RECORDS SUMMARY | 2024-08-08 16:04 | XMS_ITS | Encounter Summary ---
Author Organization [facility] Healthcare Address [address] [place] [address] Care Team Providers Care Security Systems Engineer Name Role Phone Lazarus Albert MD Primary Care Provider [phone] Encounter Details Date Type Department Care Team (Late st Contact Info) Description 05/01/2020 3:15 PM CDT Lab [address] [address] Social History Tobacco Use Types Packs/Day Years Used Date Smoking Tobacco: Former Cigarettes 2 26.6 1 982 - 03/19/2008 E-cigarettes Smokeless Tobacco: Never Alcohol Use Standard Drinks/Week Comments Yes 0 (1 standard drink = 0.6 oz pur e alcohol) rarely Comments No Sex and Gender Information Value Date Recorded Sex Assigned at Not on file Legal Sex Female 5:42 AM BOOK OR SCRIPT EDITOR Gender Identity Not on file Sexual Orientation Not on file documented as of this encounter Plan of Treatment Not on file documented as of this encounter Visit Diagnoses Not on filedocumented in this encounter Additional Health Concerns Infection Onset Date Last Indicated Resolved Time 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
--- OUTSIDE RECORDS SUMMARY | 2024-08-08 16:04 | XMS_ITS | Encounter Summary ---
Author Organization [facility] Home Care [facility] Address [address] [place] [address] Phone Care Team Providers Care Guitar Player Name Role Phone Lazarus Albert MD Primary Care Provider [phone] Encounter Details Date Type Department Care Team (Late st Contact Info) Description 04/29/2020 Plan of Care Documentation [address] [address] [place], [place] [id number] Social History Tobacco Use Types Packs/Day Years Used Date Smoking Tobacco: Former Cigarettes 2 26.6 1 982 - 03/19/2008 E-cigarettes Smokeless Tobacco: Never Alcohol Use Standard Drinks/Week Comments Yes 0 (1 standard drink = 0.6 oz pur e alcohol) rarely Comments No Sex and Gender Information Value Date Recorded Sex Assigned at Not on file Legal Sex Female 5:42 AM TAPPER SUPERVISOR Gender Identity Not on file Sexual Orientation Not on file documented as of this encounter Plan of Treatment Not on file documented as of this encounter Visit Diagnoses Not on filedocumented in this encounter Additional Health Concerns Infection Onset Date Last Indicated Resolved Time 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
--- OUTSIDE RECORDS SUMMARY | 2024-08-08 16:04 | XMS_ITS | Encounter Summary ---
Author Organization [facility] Home Care Servic es Address [address] [place] [address] Phone Care Team Providers Care Education Specialist Name Role Phone Lazarus Albert MD Primary Care Provider [phone] Encounter Details Date Type Department Care Team (Late st Contact Info) Description 05/06/2020 Orders Only [facility] [address] [place] [address] Chuckie Logan RPh Infected prosthetic mesh of abdominal wall, initial encounter ([facility]) (Primary Dx) Social History Tobacco Use Types Packs/Day Years Used Date Smoking Tobacco: Former Cigarettes 2 26.6 1 982 - 03/19/2008 E-cigarettes Smokeless Tobacco: Never Alcohol Use Standard Drinks/Week Comments Yes 0 (1 standard drink = 0.6 oz pur e alcohol) rarely Comments No Sex and Gender Information Value Date Recorded Sex Assigned at Not on file Legal Sex Female 5:42 AM CERTIFIED MASSAGE THERAPIST Gender Identity Not on file Sexual Orientation Not on file documented as of this encounter Progress Notes * Chuckie Logan RPh - 05/06/2020 3:31 PM CDT Order written to dc Vancomycin after 05/07/20 doses and then extra SNV to remove PICC documented in this encounter Plan of Treatment Not on file documented as of this encounter Visit Diagnoses Diagnosis Infected prosthetic mesh of abdominal wall, initial encounter ([facility])- Primary documented in this encounter Additional Health Concerns Infection Onset Date Last Indicated Resolved Time 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
--- OUTSIDE RECORDS SUMMARY | 2024-08-08 16:04 | XMS_ITS | Encounter Summary ---
Author Organization [facility] Home Care Servic es Address [address] [place] [address] Phone Care Team Providers Care Sales Operations Director Name Role Phone Lazarus Albert MD Primary Care Provider [phone] Reason for Visit * Auth/Cert Specialty Diagnoses / Procedures Referred By Susan t Referred To Contact Referral ID Status Reason Start Date Expiration Date Visits Re quested Visits Authorized [id number] 1 1 Encounter Details Date Type Department Care Team (Late st Contact Info) Description 05/22/[address] [facility] Home Health - [address] [place] [address] Donna Mcintosh, LEAD MANUFACTURING ENGINEER SCREENING CASE COMMUNICATION Social History Tobacco Use Types Packs/Day Years Used Date Smoking Tobacco: Former Cigarettes 2 26.6 1 982 - 03/19/2008 E-cigarettes Smokeless Tobacco: Never Alcohol Use Standard Drinks/Week Comments Yes 0 (1 standard drink = 0.6 oz pur e alcohol) rarely Comments No Sex and Gender Information Value Date Recorded Sex Assigned at Not on file Legal Sex Female 5:42 AM PROCESS SAFETY MANAGER Gender Identity Not on file Sexual Orientation Not on file documented as of this encounter Plan of Treatment Not on file documented as of this encounter Visit Diagnoses Not on filedocumented in this encounter Additional Health Concerns Infection Onset Date Last Indicated Resolved Time 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
--- OUTSIDE RECORDS SUMMARY | 2024-08-08 16:04 | XMS_ITS | Encounter Summary ---
Author Organization [facility] Home Care Servic es Address [address] [place] [address] Phone Care Team Providers Care Sample Color Maker Name Role Phone Lazarus Albert MD Primary Care Provider Reason for Visit * Reason Comments Wound Care * Auth/Cert Specialty Diagnoses / Procedures Referred By Contac t Referred To Contact Referral ID Status Reason Start Date Expiration Date Visits Re quested Visits Authorized [id number] 1 1 Encounter Details Date Type Department Care Team (Late st Contact Info) Description 06/16/2020 10:30 AM DATA INTEGRITY CONSULTANT Home Care Visit [facility] [address] [address] [address] [place] [address] Harper Pena, KAT SN HOME VISIT Social History Tobacco Use Types Packs/Day Years Used Date Smoking Tobacco: Former Cigarettes 2 26.6 1 982 - 03/19/2008 E-cigarettes Smokeless Tobacco: Never Alcohol Use Standard Drinks/Week Comments Yes 0 (1 standard drink = 0.6 oz pur e alcohol) rarely Comments No Sex and Gender Information Value Date Recorded Sex Assigned at Not on file Legal Sex Female 5:42 AM DATA INTEGRITY CONSULTANT Gender Identity Not on file Sexual Orientation Not on file documented as of this encounter Last Filed Vital Signs Vital Sign Reading Time Taken Comments Blood Pressure 110/70 06/16/2020 11:45 AM DATA INTEGRITY CONSULTANT Pulse 78 06/16/2020 11:45 AM DATA INTEGRITY CONSULTANT Temperature 36.1 ??C (97 ??F) 06/16/2020 11:45 AM DATA INTEGRITY CONSULTANT Respiratory Rate 18 06/16/2020 11:45 AM DATA INTEGRITY CONSULTANT Oxygen Saturation 98% 06/16/2020 11:45 AM DATA INTEGRITY CONSULTANT Inhaled Oxygen Concentration - - Weight - - Height - - Body Mass Index - - documented in this encounter Plan of Treatment Not on file documented as of this encounter Visit Diagnoses Not on filedocumented in this encounter Additional Health Concerns Infection Onset Date Last Indicated Resolved Time 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, nares 04/22/20; 01/18/21; urine 01/14/21 09/19/2019 02/09/2021 10/10/2021 4:00 AM DATA INTEGRITY CONSULTANT documented as of this encounter Home Health Visit - Care Plan Visit Details Visit Type -SN Home Visit Discipline -[facility] Problems Problem Description Start Date Status Goals Interve ntions Homebound Status Disciplines: [facility] Patient's homebound status 04/29/2020 Active 1 goal linked to scheduled/documen tee intervention 1 goal intervention scheduled/document ed in this visit Monitor patient's vital signs every home health visit Disciplines: [facility] Monitor patient's vital signs every home health visit. 04/29/2020 Active 1 goal linked to scheduled/documen tee intervention 1 goal intervention scheduled/document ed in this visit Infection Prevention Disciplines: [facility] Infection Prevention 04/29/2020 Active 1 goal linked to scheduled/documen tee intervention 1 goal intervention scheduled/document ed in this visit Pain Disciplines: [facility] Alteration in comfort 04/29/2020 Active 1 goal linked to scheduled/documen tee intervention 1 goal intervention scheduled/document ed in this visit Wound Risk of Infection Disciplines: [facility] Risk of infections related to wounds 04/29/2020 Active 1 goal linked to scheduled/documen tee intervention 1 goal intervention scheduled/document ed in this visit Wound Education and Management Disciplines: [facility] Deficiency of cognitive information related to wound care 04/29/2020 Active 1 goal linked to scheduled/documen tee intervention 1 goal intervention scheduled/document ed in this visit Wound Care Disciplines: [facility] Wound care needed 04/29/2020 Active 1 goal [...] visit during episode of care Description: Home casting assistant to measure vital signs during every home health visit during episode of care. Monitor patient's vital signs every home health visit No Verbalize signs of infection Description: Verbalize signs of infection Infection Prevention No Report that pain has been reduced or controlled Description: Report that pain has been reduced or controlled Pain No Knowledgeable of infection Description: : Patient will remain free of infection and able to recognizes of signs of infection by end of IV therapy. Wound Risk of Infection No Knowledgeable on Woundcare Description: Patient/caregiver will be knowledgeable on woundcare procedure, wound healing and when to seek medical attention by end of first visit. Wound Education and Management No Progression towards healing Description: Wound show [...] setting Completed Patient is homebound due to recent surgery, open wound, pain, poor endurance. Monitor Vital Signs Description: Monitor blood pressure, [...] Problem:Infection Prevention Goal:Verbalize signs of infection Completed instructed to use good handwashing and use of glvoes when doing wound care. understanding expressed. Instruct on pain management techniques Description: Instruct in pharmacologic and nonpharmacologic pain management techniques. Problem:Pain Goal:Report that pain has been reduced or controlled Completed instructed to report if pain is not relieved to an acceptable level. understanding expressed. Instruct on the signs and symptoms of infection Description: Assess wound with each visit for s/sx of infection Problem:Wound Risk of Infection Goal:Knowledgeable of infection Completed instructed to report redness, new open areas, pain, fever, foul odor, change in color of drainage to yellow or green. understanding expressed by pt. Hydration for Wound Healing Description: Instruct on adequate hydration for wound healing, generally 6.5-8 cups (52-64oz/day). Unless health professional has suggested a fluid restriction Problem:Wound Education and Management Goal:Knowledgeable on Woundcare Completed instructed on proper hydration for wound healing and bowel and bladder status. understanding expressed. Skilled assessment wound Description: Full wound assessment including measurement weekly. Wound assessment each visit Problem:Wound Care Goal:Progression towards healing Completed Perform dressing change Description: Perform dressing change: [...] and secure with tape.. Problem:Wound Care Completed pt tolerated wound care well documented in this encounter Home Health Visit - Actions and Narratives Actions pt is going in tomorrow for lithotripsy. documented in this encounter Care Teams Sample Color Maker Relationship Specialty Start Date End Date Lazarus Albert MD [address] [facility] [place] [address] PCP - General 09/25/19 03/04/24 documented as of this encounter
--- OUTSIDE RECORDS SUMMARY | 2024-08-08 16:04 | XMS_ITS | Encounter Summary ---
Author Organization [facility] Address [address] [place] [address] Phone Care Team Providers Care Book Author Name Role Phone Lazarus Albert MD Primary Care Provider [phone] Reason for Visit * Auth/Cert Specialty Diagnoses / Procedures Referred By Susan arce Referred To Contact Referral ID Status Reason Start Date Expiration Date Visits Re quested Visits Authorized [id number] 1 1 Encounter Details Date Type Department Care Team (Late st Contact Info) Description 05/12/2020 11:00 AM CDT Home Care Visit [facility] [address] [address] [address] [place] [address] Taylor Eckert RN SN HOME VISIT Social History Tobacco [...] on file 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 Gender Identity Not on file Sexual Orientation Not on file documented as of this encounter Last Filed Vital Signs Vital Sign Reading Time Taken Comments Blood Pressure 128/80 05/12/2020 9:55 AM CDT Pulse 88 05/12/2020 9:55 AM CDT Temperature 36.5 ??C (97.7 ??F) 05/12/2020 9:55 AM CD T Respiratory Rate 20 05/12/2020 9:55 AM CDT Oxygen Saturation 99% 05/12/2020 9:55 AM CDT Inhaled Oxygen Concentration - - [...] urine 01/14/21 09/19/2019 02/09/2021 10/10/2021 4:00 AM CPR 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 04/29/2020 Active 1 goal linked to scheduled/documen tee intervention 1 goal intervention scheduled/document ed in this visit Fall Precautions/S afety Concerns Disciplines: Assisted Alteration in safety 04/29/2020 Active 1 goal linked to scheduled/documen tee intervention 1 goal intervention scheduled/document ed in this visit IV Therapy-Manag ement, Education, and Maintenance Disciplines: Assisted Teaching and learning needs for performing home IV therapy 04/29/2020 Active 1 goal linked to scheduled/documen tee intervention Wound Care Disciplines: Assisted Wound care needed 04/29/2020 Active 1 goal [...] visit during episode of care Description: Home home therapy clinician to measure vital signs during every home health visit during episode of care. Monitor patient's vital signs every home health visit No Demonstrate use of safety precautions Description: Demonstrate use of safety precautions Fall Precautions/Safety Concerns No Safely perform IV administration Description: Skilled Nurse/Patient/Caregiver will demonstrate ability to safely perform administration of IV by end of first visit. Patient/Caregiver will demonstrate ability to correctly perform flushing technique throughout the treatment episode. IV Therapy-Management, Education, and Maintenance Completed Yes Progression towards healing Description: Wound show progression [...] the most appropriate care setting Completed Patient remains homebound with a nonhealing abdominal wound, needs assist with transfers due to pain, needs assist to leave home. Monitor Vital Signs Description: Monitor blood pressure, pulse, oxygen saturation, respirations Problem:Monitor patient's vital signs every home health visit Goal:Measure vital signs during every home health visit during episode of care Completed [place] Fall Precautions Description: Assess patient safety Problem:Fall Precautions/Safety Concerns Goal:Demonstrate use of safety precautions Completed Skilled assessment wound Description: Full wound assessment [...] and secure with tape.. Problem:Wound Care Completed Perform dressing change: Site mid abdomen, Skilled [...] with dry dressing and secure with tape.. documented in this encounter Home Health Visit - Actions and Narratives Actions WC to abdominal wound. She s aw surgeon yesterday and he inserted a qtip into tunnel and removed some excess blood and measured the tunnel to be 6cm deep at 5 o'clock. documented in this encounter Care Teams Book Author Relationship Specialty Start Date End Date Lazarus Albert MD [address] [facility] [place]PT [place] [address] PCP - General 09/25/19 03/04/24 documented as of this encounter
--- OUTSIDE RECORDS SUMMARY | 2024-08-08 16:04 | XMS_ITS | Encounter Summary ---
Author Organization [facility] Address [address] [place] [address] Phone Care Team Providers Care System Trainer Name Role Phone Lazarus Albert MD Primary Care Provider [phone] Reason for Visit * Reason Onset Date Comments OPAT 05/03/2020 Encounter Details Date Type Department Care Team (Late st Contact Info) Description 05/03/2020 Telephone [facility] Infectious Diseases [address] [place] [address] [address] [place] [address] Zaria Lopez OPAT Social History [...] on file 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 Gender Identity Not on file Sexual Orientation Not on file documented as of this encounter Miscellaneous Notes * Telephone Encounter - Zaria Lopez - 05/03/2020 2:03 PM CDT ----- Message from Chuckie Logan RPh sent at 05/03/2020 12:31 PM CDT ----- Erum Spoke to the and he reported she was feeling fine and eating well For now he was treating it with diet Vanc protocol report was sent over late yesterday Chuckie ----- Message ----- From: Erum Heard NP Sent: 05/03/2020 12:15 PM CDT To: Chuckie Logan [facility]ly [facility], [place] [facility] Id Nurse Clay Good afternoon, Thank you for getting Ms. Weinberg added to the vancomycin protocol! 05/07 for length of therapy please! Where you able to get in touch with her for the potassium? Would like to recheck it. I tried calling earlier today with no luck. Thanks, Erum ----- Message ----- From: Chuckie Logan RPh Sent: 05/03/2020 10:50 AM CDT To: Erum Heard NP, # Erummahogany Weinberg thinks the length of therapy is [...] urine 01/14/21 09/19/2019 02/09/2021 10/10/2021 4:00 AM PIZZA HUT TEAM MEMBER documented as of this encounter Care Teams System Trainer Relationship Specialty Start Date End Date Lazarus Albert MD [address] [facility] DEPT [place] [address] PCP - General 09/25/19 03/04/24 documented as of this encounter
--- OUTSIDE RECORDS SUMMARY | 2024-08-08 16:04 | XMS_ITS | Encounter Summary ---
Author Organization [facility] Address [address] [place] [address] Phone Care Team Providers Care Network Coordinator Name Role Phone Lazarus Albert MD Primary Care Provider [phone] Encounter Details Date Type Department Care Team (Late st Contact Info) Description 05/08/2020 Telephone [facility] Infectious Diseases [address] [place] [address] [address] [place] [address] Last Wilcox MD [address] [place] [address] Social History Tobacco Use Types Packs/Day Years Used Date Smoking Tobacco: Former Cigarettes 2 26.6 1 982 - 03/19/2008 E-cigarettes Smokeless Tobacco: Never Alcohol Use Standard Drinks/Week Comments Yes 0 (1 standard drink = 0.6 oz pur e alcohol) rarely Comments No Sex and Gender Information Value Date Recorded Sex Assigned at Not on file 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 They changed the dressing at her abdomen and found new tunnelfrom her wound. I was asked if they can pack that tunnel. I stated that ID take care of antibiotics. Unfortunately, I don't have the answer for their question. I advised to call surgery I was also asked if patient can have any prescription for vaginal candidiasis. I gave the recommendation that OTC suppository can be used. documented in this encounter Plan of Treatment Not on file documented as of this encounter Visit Diagnoses Not on filedocumented in this encounter Additional Health Concerns Infection Onset Date Last Indicated Resolved Time 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, nares 04/22/20; 01/18/21; urine 01/14/21 09/19/2019 02/09/2021 10/10/2021 4:00 AM HIDE WORKER documented as of this encounter Care Teams Network Coordinator Relationship Specialty Start Date End Date Lazarus Albert MD [address] [facility] DEPT [place] [address] PCP - General 09/25/19 03/04/24 documented as of this encounter
--- OUTSIDE RECORDS SUMMARY | 2024-08-08 16:04 | XMS_ITS | Encounter Summary ---
Author Organization [facility] Address [address] [place] [address] Phone Care Team Providers Care Orthodontic Technician Name Role Phone Lazarus Albert MD Primary Care Provider [phone] Encounter Details Date Type Department Care Team (Late st Contact Info) Description 06/08/2020 2:30 PM CDT Office Visit [facility] Surgery [address] 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 Gender Identity Not on file Sexual Orientation Not on file documented as of this encounter Last Filed Vital Signs Vital Sign Reading Time Taken Comments Blood Pressure 126/80 06/08/2020 2:01 PM CDT Pulse 109 06/08/2020 2:01 PM CDT Temperature 37.3 ??C (99.2 ??F) 06/08/2020 2:01 PM CD T Respiratory Rate 18 06/08/2020 2:01 PM CDT Oxygen Saturation 98% 06/08/2020 2:01 PM CDT Inhaled Oxygen Concentration - - Weight 53.5 kg (118 lb) 06/08/2020 2:01 PM CDT Height 165.1 cm (5' 5 ) 06/08/2020 2:01 PM CDT Body Mass Index 19.64 06/08/2020 2:01 PM CDT documented in this encounter Progress Notes * Ari Partida MD - 06/08/2020 2:30 PM CDT Images from the original note were not included. [facility] Acute [facility] Critical [facility] CAM outpatient progress note DATE OF SERVICE: 06/08/2020 Madison Weinberg 1965 [id number] Osvaldo Escobedo MD has requested that I see Madison Weinberg in clinic for evaluation of Abdominal pain and infection of the midline wound. Encounter Diagnosis Name Primary? S/P exploratory laparotomy Yes Chief complaint: Draining abdominal wall sinus History of Present Illness Ms. Weinberg is a 54 y.o. female here for evaluation of abdominal pain and draining lower midline wound. She has a complex medical history the started with surgery over 27 years ago endometriosis. Most recently she had multiple surgeries at the [facility] in [place]. She was seen there by Dr. Mehdi Guzman. Those surgeries involved multiple bowel resections and at some point and ostomy and ostomy reversal. She also had a mesh placed at some point. More recently she has developedabdominal pain over last month or so. Nothing seems to change it. Across all the upper portions of her abdomen and especially beneath her old colostomy site. She has not really had any vomiting although she said she was nervous once and had a little bit of vomiting but is not experiencing problems associated with small bowel obstruction. She has had no fevers or chills. She presented to the emergency department with the above complaints without also noticed purulence draining from her midline wound. The culture this and it showed MRSA. She was started on antibiotics and got a CT scan. The CT was not revealing as another cause of abdominal pain. She was sent to us for follow-up of this infection and the abdominal pain. Update October 07 2019: Patient was started on clindamycin Update January 20 2020: Patient continues to have low output draining sinus tract from the lower midline incision. She has required antibiotic therapy off and on since her last visit. Part of her follow-up as been disrupted due to the ongoing COVID-19 pandemic. I will obtain all outside operative reports and there is no mention of a mesh placement under and the abdominal wall. She does have left sided anterior abdominal wall excision at her last operation due to associated small-bowel resection. Isuspect there is a underlying or onlay mesh. CT scan was personally observe at the last visit is consistent with a mesh present within the abdominal wall likely outside the fascia. She continues withabdominal pain. Update April 06 2020: Patient is here again today with persistent draining sinus tract from the lower abdomen. I reviewed the CT scan today that was done in the past few months with Radiology today.There is no collection. There is no hernia defect. Patient has chronic abdominal pain was unchanged Update: 06/08/2020 Doing well with dressing changes, much improved since discharge Underwent lower abdomen mesh excision of residual onlay biologic mesh infected from OSH explorationa few years ago Has upper abdomen residual well incorporated onlay biologic mesh in place, will continue life long suppressive abx with ID at [facility] Past Medical History Past Medical History: Diagnosis Date ??? Anemia ??? Anxiety disorder ??? Colon obstruction (CMS/HCC) ??? DVT (deep venous thrombosis) (CMS/HCC) 11/2018 ??? Endometriosis Endometriosis-21 times ??? PONV (postoperative nausea and vomiting) IV medications help ??? Trigeminal neuralgia Past Surgical History Past Surgical History: Procedure Laterality Date ??? ABDOMINAL SURGERY surgery x 5 for bowel obstruction and subsequent infection ??? APPENDECTOMY 2006 Appendectomy ??? BOWEL RESECTION colon blockage: partial bowel resection ??? BREAST BIOPSY 2000 Breast biopsy ??? HYSTERECTOMY 1995 Hysterectomy ??? LAPAROSCOPIC ENDOMETRIOSIS FULGURATION Endometriosis-21 times: lap/laser Family History Family History Problem Relation Age of [...] ??? Anesthesia problems Neg Hx Social History Social History Socioeconomic History ??? Marital status: Spouse name: Not on file ??? Number of children: Not on file ??? Years of education: Not on file ??? Highest education level: Not on file Occupational History ??? Not on file Social Needs ??? Financial resource strain: Not on file ??? Food insecurity Worry: Not on file Inability: Not on file ??? Transportation needs Medical: Not on file Non-medical: Not on file Tobacco Use ??? Smoking status: Former Smoker Packs/day: 2.00 Years: 12.00 Pack years: 24.00 Types: E-cigarettes, Cigarettes Start date: 1981 Quit date: 03/19/2008 Years since quittin.4 ??? Smokeless tobacco: Never Used Substance and Sexual Activity ??? Alcohol use: Yes Comment: rarely ??? Drug use: Yes Frequency: 7.0 times per week Types: Marijuana Comment: medical for pain and anxiety ??? Sexual activity: Defer Lifestyle ??? Physical activity Days per week: Not on file Minutes per session: Not on file ??? Stress: Not on file Relationships ??? Social connections Talks on phone: Not on file Gets together: Not on file Attends worship service: Not on file Active member of club or organization: Not on file Attends meetings of clubs or organizations: Not on file Relationship status: Not on file ??? Intimate partner violence Fear of current or ex partner: Not on file Emotionally abused: Not on file Physically abused: Not on file Forced sexual activity: Not on file Other Topics Concern ??? Not on file Social History Narrative ??? Not on file Allergies Allergies Allergen Reactions ??? Codeine Hives ??? Duloxetine Mental status changes Reaction: CONFUSION, ??? Gabapentin Mental status changes ??? Paxil [Paroxetine] Mental status changes ??? Wellbutrin [Bupropion] Mental status changes ??? Zoloft [Sertraline] Mental status changes Medications Current Outpatient Medications on File Prior to Visit Medication Sig Dispense Refill ??? acetaminophen 500 mg capsule Take 2 capsules (1,000 mg total) by mouth every 6 (six) hours 30 tablet ??? alendronate (FOSAMAX) 70 mg tablet Take 70 mg by mouth every 7 days Take in the morning with a full glass of water, on an empty stomach, and do not take anything else by mouth or lie down for thenext 30 min. EVERY SATURDAY ??? aspirin 81 mg enteric coated tablet Take 1 tablet (81 mg total) by mouth every other day (Patient taking differently: Take 1 tablet by mouth every other day. Indications: prevention of thrombosis) ??? calcium carbonate-vitamin D3 500 mg(1,250mg) -400 unit chewable tablet Take 1 tablet by mouth every morning ??? clonazePAM (KlonoPIN) 1 mg tablet Take 1 mg by mouth 2 (two) times a day ??? clotrimazole-betamethasone (LOTRISONE) cream Apply topically daily as needed ??? cyanocobalamin (Vitamin B-12) 100 mcg tablet Take 1,000 mcg by mouth every morning ??? cyclobenzaprine (FLEXERIL) 10 mg tablet Take [...] by mouth once a week SATURDAY ??? ferrous fumarate 325 mg (106 mg iron) tablet Take 106 mg of elemental iron by mouth daily with dinner ??? folic acid (FOLVITE) 1 mg tablet Take 1 mg by mouth daily with dinner ??? levocetirizine (XYZAL) 5 mg tablet Take 5 mg by mouth daily with lunch ??? oxyCODONE (ROXICODONE) 5 mg immediate release tablet Take 1 tablet (5 mg total) by mouth every 4 (four) hours as needed for pain 30 tablet 0 ??? polyethylene glycol (MIRALAX) 17 gram packet Take 17 g by mouth daily with lunch ??? prochlorperazine (Compazine) 10 mg tablet Take 10 mg by mouth every 6 (six) hours as needed fornausea or vomiting. Indications: nausea and vomiting ??? rizatriptan (MAXALT) 10 mg tablet Take 10 mg by mouth once as needed for migraine May repeat in2 hours if unresolved. Do not exceed 30 mg in 24 hours. ??? sulfamethoxazole-trimethoprim (BACTRIM DS) 800-160 mg per tablet Take 1 tablet by mouth every 12 (twelve) hours 180 tablet 1 ??? traZODone (DESYREL) 150 mg tablet Take 150 mg by mouth nightly No current facility-administered medications on file prior to visit. Review of Systems: General- no fevers, chills HEENT- no changes in vision, hearing, congestion CV- no chest pain or palpitations Resp- no shortness of breath, no cough GI- Per HPI - no pain with urination, urinary frequency or urgency MSK- no changes in strength, extremity swelling Integument- wounds as described in HPI Heme- denies easy bruising or recent bleeding problems Endo- no significant changes in weight, no heat or cold intolerance Neuro- No changes in memory or balance Psych- No changes in mood Physical Exam: Ht:165.1 cm (5' 5 ) Wt:53.5 kg (118 lb) Body mass index is 19.64 kg/m??. BP 126/80 (BP Location: Left arm) Pulse 109 Temp 37.3 ??C (99.2 ??F) (Temporal) Resp 18 Ht165.1 cm (5' 5 ) Wt 53.5 kg (118 lb) SpO2 98% BMI 19.64 kg/m?? GENERAL- no acute distress, comfortable NEURO- alert and oriented PSYCH- Mood and affect appropriate HEENT- EOMs grossly normal, no scleral icterus, mucous membranes moist LYMPHATICS- no palpable lymphadenopathy CARDIAC- regular rate and rhythm RESP- nonlabored respirations GI- abdomen soft, nondistended, multiple scars including a midline an old healed ostomy site. Lower abdomen excision site well healing with secondary intention Wound smaller No exudate or surrounding erythema Examination of wound remains unchanged. MSK- grossly normal range of motion EXTREMITIES- extremities warm and dry, no swelling INTEGUMENT skin warm and dry, Assessment and Plan: Underwent 04/22/2020 lower abdomen mesh excision of residual onlay biologic mesh infected from OSH exploration a few years ago Has upper abdomen residual well incorporated onlay biologic mesh in place, [facility] up [facility] 6 weeks due to long travel time from home Expect continued healing Ari Tish Partida MD RUMENTAL MUSIC TEACHER RUMENTAL MUSIC TEACHER documented in this encounter Plan of Treatment Not on file documented as of this encounter Visit Diagnoses Diagnosis S/P exploratory laparotomy- Primary Other postprocedural status documented in this encounter Additional Health Concerns Infection Onset Date Last Indicated Resolved Time 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, nares 04/22/20; 01/18/21; urine 01/14/21 09/19/2019 02/09/2021 10/10/2021 4:00 AM INSTRUMENTAL MUSIC TEACHER documented as of this encounter Care Teams Orthodontic Technician Relationship Specialty Start Date End Date Lazarus Albert MD [address] [facility] [place] [address] PCP - General 09/25/19 03/04/24 documented as of this encounter
--- OUTSIDE RECORDS SUMMARY | 2024-08-08 16:04 | XMS_ITS | Encounter Summary ---
Author Organization [facility] Address [address] [place] [address] Phone Care Team Providers Care Security Manager Name Role Phone Lazarus Albert MD Primary Care Provider [phone] Reason for Visit * Auth/Cert Specialty Diagnoses / Procedures Referred By Susan t Referred To Contact Referral ID Status Reason Start Date Expiration Date Visits Re quested Visits Authorized [id number] 1 1 Encounter Details Date Type Department Care Team (Late st Contact Info) Description 06/09/2020 Home Care Visit [facility] Home Health - [address] [place] [address] Harper Pena, ADMISSIONS ASSISTANT SCREENING CASE COMMUNICATION Social History Tobacco Use Types Packs/Day Years Used Date Smoking Tobacco: Former Cigarettes 2 26.6 1 982 - 03/19/2008 E-cigarettes Smokeless Tobacco: Never Alcohol Use Standard Drinks/Week Comments Yes 0 (1 standard drink = 0.6 oz pur e alcohol) rarely Comments No Sex and Gender Information Value Date Recorded Sex Assigned at Not on file 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 Female 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 Gender Identity Not on file Sexual Orientation Not on file documented as of this encounter Plan of Treatment Not on file documented as of this encounter Visit Diagnoses Not on filedocumented in this encounter Additional Health Concerns Infection Onset Date Last Indicated Resolved Time 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, nares 04/22/20; 01/18/21; urine 01/14/21 09/19/2019 02/09/2021 10/10/2021 4:00 AM OYSTERMAN documented as of this encounter Care Teams Security Manager Relationship Specialty Start Date End Date Lazarus Albert MD [address] [place] [address] PCP - General 09/25/19 03/04/24 documented as of this encounter
--- OUTSIDE RECORDS SUMMARY | 2024-08-08 16:04 | XMS_ITS | Encounter Summary ---
Author Organization [facility] Healthcare Address [address] [place] [address] Care Team Providers Care Entry Manager Name Role Phone Lazarus Albert MD Primary Care Provider [phone] Encounter Details Date Type Department Care Team (Latest Contact Info) Description 01/13/2021 8:25 PM CDT - 01/13/2021 9:28 PM CDT Hospital Encounter 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 Gender Identity Not on file Sexual Orientation [...] tablet (20 mg total) by mouth nightly 05/13/202 1 calcium carbonate-vitamin D3 (CALTRATE 600 + [...] 17 g by mouth daily with lunch acetaminophen 500 mg capsuleIndications: Pain Take 2 capsules (1,000 mg total) by mouth every 6 (six) hours 30 tablet 0 01/27/20 21 aspirin 81 mg enteric coated tablet [The details of the medication are not available because there are pending changes by a home health clinician.] 0 02/10/20 21 atorvastatin (LIPITOR) 10 mg tablet 1 01/15/20 21 calcium carbonate-vitamin D3 500 mg(1,250mg) -400 unit chewable tabletIndications:V itamin D Deficiency Take 1 tablet by mouth every morning 01/15/20 21 clonazePAM (KlonoPIN) 1 mg tabletIndications:P anic Disorder Take 1 mg by mouth 2 (two) times a day 0 02/10/20 21 cyanocobalamin (Vitamin B-12) 1,000 mcg tablet Take 1,000 mcg by mouth daily 1 07/02/20 21 cyanocobalamin (Vitamin B-12) 100 mcg tabletIndications:P revention of Vitamin B12 Deficiency Take 1,000 mcg by mouth every morning 01/15/20 21 cyclobenzaprine (FLEXERIL) 10 mg tabletIndications:M uscle Spasm Take 10 mg by mouth 2 (two) times a day 03/05/20 24 ergocalciferol (VITAMIN D) 50,000 unit capsuleIndications: Vitamin D Deficiency Take 50,000 Units by mouth once a week Saturday07/02/20 21 ferrous fumarate 325 mg (106 mg iron) tabletIndications:I ghislaine Deficiency Anemia Take 106 mg of elemental iron by mouth daily with dinner 01/15/20 21 ferrous sulfate 325 mg (65 mg of elemental iron) tablet TAKE 1 TABLET BY MOUTH EVERY DAY WITH MEALS 1 01/15/20 21 folic acid (FOLVITE) 1 mg tabletIndications:F olate Deficiency Take 1 mg by mouth daily with dinner 07/02/20 21 HYDROcodone-acetami nophen (NORCO) 5-325 mg per tablet 12/17/19 2 1 01/27/20 21 levocetirizine (XYZAL) 5 mg tablet Take 5 mg by mouth daily with lunch 02/10/20 21 LORazepam (ATIVAN) 0.5 mg tablet 1 01/27/20 21 losartan (COZAAR) 25 mg tablet Take 1 tablet (25 mg total) by mouth daily 30 tablet 3 1 02/10/20 21 metoprolol tartrate (LOPRESSOR) 25 mg immediate release tablet Take 1 tablet (25 mg total) by mouth 2 (two) times a day 60 tablet 11 1 01/27/20 21 OLANZapine (ZyPREXA ZYDIS) 10 mg disintegrating tabletIndications:D epression Treatment Adjunct,Mixed Bipolar I Disorder Take 1 tablet (10 mg total) by mouth nightly 30 tablet 1 02/21/20 21 OLANZapine (ZyPREXA ZYDIS) 5 mg disintegrating tabletIndications:D epression Treatment Adjunct,Mixed Bipolar I Disorder Take 1 tablet (5 mg total) by mouth daily 30 tablet 1 02/21/20 21 OLANZapine (ZyPREXA) 2.5 mg tablet 1 01/27/20 21 oxyCODONE (ROXICODONE) 5 mg immediate release tabletIndications:P ain Take 1 tablet (5 mg total) by mouth every 4 (four) hours as needed for pain 30 tablet 0 01/15/20 21 prochlorperazine (Compazine) 10 mg tabletIndications:N ausea and Vomiting Take 10 mg by mouth every 6 (six) hours as needed for nausea or vomiting. Indications: nausea and vomiting 02/10/20 21 rizatriptan (MAXALT) 10 mg tabletIndications:M igraine Take 10 mg by mouth once as needed for migraine May repeat in 2 hours if unresolved. Do not exceed 30 mg in 24 hours. 01/27/20 21 SUMAtriptan (IMITREX) 100 mg tablet 1 01/27/20 21 tamsulosin (FLOMAX) 0.4 mg extended release capsule tamsulosin 0.4 mg capsule TAKE 1 CAPSULE BY MOUTH EVERY DAY 5 02/10/20 21 traMADoL (ULTRAM) 50 mg tablet 1 02/10/20 21 traZODone (DESYREL) 150 mg tablet Take 150 mg by mouth nightly 01/27/20 21 valACYclovir (VALTREX) 1 gram tablet valacyclovir 1 gram tablet Take 1 tablet 3 times a day by oral route as directed for 10 days. 01/27/20 21 venlafaxine XR (EFFEXOR-XR) 75 mg 24 hr capsule Take 75 mg by mouth 2 (two) times a day 1 01/27/20 21 documented as of this encounter Discharge Disposition Disposition Code Departure Means Destination Discharge to home or self care documented in this encounter Plan of Treatment Not on file documented as of this encounter Procedures Procedure Name Priority Date/Time Associated Diagnosis Comments XR CHEST PA LATERAL 2 VIEWS ED 01/13/2021 8:35 PM CDT documented in this encounter Results [...] lungs. Electronically signed by: Rakesh Palacio M.D. Francisco Padilla MD IMG XR PROCEDURES Moraima l Result documented in this encounter Visit Diagnoses Not on filedocumented in this encounter Additional Health Concerns Infection Onset Date Last Indicated Resolved Time 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, nares 04/22/20; 01/18/21; urine 01/14/21 09/19/2019 02/09/2021 10/10/2021 4:00 AM SCHOOL CLEANER documented as of this encounter Care Teams Entry Manager Relationship Specialty Start Date End Date Lazarus Albert MD [address] [facility] [place] [address] PCP - General 09/25/19 03/04/24 documented as of this encounter
--- OUTSIDE RECORDS SUMMARY | 2024-08-08 16:04 | XMS_ITS | Encounter Summary ---
Author Organization [facility] Home Care Servic es Address [address] [place] [address] Phone Care Team Providers Care Mixing House Operator Name Role Phone Lazarus Albert MD Primary Care Provider [phone] Reason for Visit * Auth/Cert Specialty Diagnoses / Procedures Referred By Susan t Referred To Contact Referral ID Status Reason Start Date Expiration Date Visits Re quested Visits Authorized [id number] 1 1 Encounter Details Date Type Department Care Team (Late st Contact Info) Description 06/16/2020 Home Care Visit [facility] Home Health - [address] [place] [address] Harper Pena, ROOM SERVICE [employer] SCREENING CASE COMMUNICATION Social History Tobacco Use Types Packs/Day Years Used Date Smoking Tobacco: Former Cigarettes 2 26.6 1 982 - 03/19/2008 E-cigarettes Smokeless Tobacco: Never Alcohol Use Standard Drinks/Week Comments Yes 0 (1 standard drink = 0.6 oz pur e alcohol) rarely Comments No Sex and Gender Information Value Date Recorded Sex Assigned at Not on file 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 Gender Identity Not on file Sexual Orientation Not on file documented as of this encounter Plan of Treatment Not on file documented as of this encounter Visit Diagnoses Not on filedocumented in this encounter Additional Health Concerns Infection Onset Date Last Indicated Resolved Time 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, nares 04/22/20; 01/18/21; urine 01/14/21 09/19/2019 02/09/2021 10/10/2021 4:00 AM ELEVATOR CONSTRUCTOR ELECTRIC documented as of this encounter Care Teams Mixing House Operator Relationship Specialty Start Date End Date Lazarus Albert MD [address] [place] [address] PCP - General 09/25/19 03/04/24 documented as of this encounter
--- OUTSIDE RECORDS SUMMARY | 2024-08-08 16:04 | XMS_ITS | Encounter Summary ---
Author Organization [facility] Healthcare Address [address] [place] [address] Phone Care Team Providers Care Decay Control Operator Name Role Phone Lazarus Albert MD Primary Care Provider [phone] Encounter Details Date Type Department Care Team (Late st Contact Info) Description 05/10/2020 Telephone [facility] Surgery [address] [facility] Advanced Medicine 8th [place] [address] [place] [address] Jinny Castro RMA Social History Tobacco Use Types Packs/Day Years Used Date Smoking Tobacco: Former Cigarettes 2 26.6 1 982 - 03/19/2008 E-cigarettes Smokeless Tobacco: Never Alcohol Use Standard Drinks/Week Comments Yes 0 (1 standard drink = 0.6 oz pur e alcohol) rarely Comments No Sex and Gender Information Value Date Recorded Sex Assigned at Not on file Legal Sex Female 5:42 AM ASSIGNMENT EDITOR Gender Identity Not on file Sexual Orientation Not on file documented as of this encounter Miscellaneous Notes * Telephone Encounter - Jinny Castro MA - 05/10/2020 11:50 AM CDT Screened for tomorrow's appointment. NELL Argueta documented in this encounter Plan of Treatment Not on file documented as of this encounter Visit Diagnoses Not on filedocumented in this encounter Additional Health Concerns Infection Onset Date Last Indicated Resolved Time 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, nares 04/22/20; 01/18/21; urine 6/5/21 09/19/2019 02/09/2021 10/10/2021 4:00 AM ASSIGNMENT EDITOR documented as of this encounter Care Teams Decay Control Operator Relationship Specialty Start Date End Date Lazarus Albert MD [address] [place] [address] PCP - General 09/25/19 03/04/24 documented as of this encounter
--- OUTSIDE RECORDS SUMMARY | 2024-08-08 16:04 | XMS_ITS | Encounter Summary ---
Author Organization [facility] Address [address] [place] [address] Phone Care Team Providers Care Home Visitor Name Role Phone Lazarus Albert MD Primary Care Provider [phone] Reason for Visit * Reason Comments Follow-up Encounter Details Date Type Department Care Team (Late st Contact Info) Description 06/06/2020 9:00 AM CDT Office Visit [facility] Infectious Diseases [address] [place] [address] [address] [place] [address] Stephani Johnson MD [address] [place] [address] Infected prosthetic mesh of abdominal wall, subsequent encounter (Primary Dx) Social History Tobacco Use Types Packs/Day Years Used Date Smoking Tobacco: Former Cigarettes 2 26.6 1 982 - 03/19/2008 E-cigarettes Smokeless Tobacco: Never Alcohol Use Standard Drinks/Week Comments Yes 0 (1 standard drink = 0.6 oz pur e alcohol) rarely Comments No Sex and Gender Information Value Date Recorded Sex Assigned at Not on file 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 Female 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 Gender Identity Not on file Sexual Orientation Not on file documented as of this encounter Last Filed Vital Signs Vital Sign Reading Time Taken Comments Blood Pressure 157/79 06/06/2020 8:46 AM CDT Pulse 109 06/06/2020 8:46 AM CDT Temperature 36.7 ??C (98 ??F) 06/06/2020 8:46 AM CDT Respiratory Rate - - Oxygen Saturation - - Inhaled Oxygen Concentration - - Weight 54.2 kg (119 lb 8 oz) 06/06/2020 8:46 AM CDT Height 163.8 cm (5' 4.5 ) 06/06/2020 8:46 AM CDT Body Mass Index 20.2 06/06/2020 8:46 AM CDT documented in this encounter Ordered Prescriptions Prescription Sig Dispense Quantity Refills Last Filled Start Date End Date sulfamethoxazole-t rimethoprim (BACTRIM DS) 800-160 mg per tablet Take 1 tablet by mouth every 12 (twelve) hours 180 tablet 1 06/06/2020 12/03/2020 sulfamethoxazole-t rimethoprim (BACTRIM DS) 800-160 mg per tablet Take 1 tablet by mouth every 12 (twelve) hours 180 tablet 06/06/2020 06/06/2020 documented in this encounter Progress Notes * Stephani Johnson MD - 06/06/2020 9:00 AM CDT Infectious Disease Outpatient Clinic Followup Note Subjective Chief Complaint: Infected abdominal mesh HPI/Interval History: Patient Madison Weinberg is a 54 y.o. 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 She underwent wound exploration on 04/22 and mesh excision with mesh culture growing MRSA.??Completemesh could not be surgically removed and the purulent clearly infected portion periumbilical was removed, however the epigastric portion is retained. She was initially on cefazolin and vancomycin wasadded on 04/24. Planned to receive 2 wks of IV Vancomycin for the associated soft tissue MRSA infection.Wound will heal via secondary intention. After the 2 week course of IV Vancomycin, the patient will be started on oral high dose Bactrim (DS BID) and this will be continued indefinitely. She will be followed by ID in clinic outpatient and then we can decide based on her course whether to stop ant ibiotics in the future. Interval history: Patient completed 2 weeks of vancomycin on 05/08 and she transitioned to oral bactrim. She was discharged on daily instead of BID. She was taking this consistently until about 1 week ago when she ran out and did not have available refills at local pharmacy. She states her wound has continued to heal up, still has a small wound with tunneling with serosanguineous discharge. Her family member helps her with wound care and he states this has been the best she has been in years. She has tolerated bactrim well, reported some watery diarrhea. She is concerned about continuing lifelong antibiotics given prior CDI, recurrent diarrhea and risk of resistance. Organism: MRSA Retained hardware: Yes, retained infected abdominal wall mesh Current antibiotic therapy: Vancomycin 750 mg IV every 12 hours Duration 2 weeks Then Bactrim DS (800/160) PO BID indefinitely - will decide on length based on exam in clinic (favor halfway suppression given retained portion of mesh) Antibiotic start date: 04/24 Anticipated stop date: Vancomycin 05/08, Bactrim indefinitely Compliance with antibiotics: missed 1 week. The patient has completed 5 weeks of antibiotic therapy. Adverse effects from antibiotic therapy: none Review of Systems: Constitutional: No fevers, chills HEENT: No headache, visual loss or yellow sclerae, no congestion, rhinorrhea or odynophagia. Respiratory: No shortness of breath, cough or sputum. Cardiovascular: No chest pain. Gastrointestinal: No abdominal pain, anorexia, nausea, vomiting or diarrhea. Genitourinary: No dysuria. Musculoskeletal:No muscle pain or back pain. Skin: No rashes or skin lesions. Neurological: No weakness, numbness or tingling. Hematological: No enlarged lymph nodes. All other systems reviewed and are negative. Objective Vitals: Most Recent : Vitals BP 157/79 (BP Location: Left arm, Patient Position: Sitting) Pulse 109 Temp 36.7 ??C (98 ??F) (Temporal) Ht 163.8 cm (5' 4.5 ) Wt 54.2 kg (119 lb 8 oz) BMI 20.20 kg/m?? Physical Exam: GENERAL: Awake, not in cardiorespiratory distress HEENT: Anicteric sclerae, pink conjunctivae, moist mucosae, no pharyngeal erythema, no neck masses LUNGS: Normal breath sounds, no crackles, no wheezes HEART: No heart murmurs, no gallops ABDOMEN: Nondistended, nontender, and soft abdomen EXTREMITY: No edema, no clubbing DERM: No exanthems or enanthems LYMPH: No cervical or inguinal lymphadenopathy NEURO: Oriented to time, place, person; pupils equally reactive to light, cranial nerves intact, nomotor or sensory deficits Lab/Radiology/Diagnostic Review: Recent Labs: Microbiology: Lab Results Component Value Date MICROBIOLOGY Final Report: No growth 04/22/2020 MICROBIOLOGY Final Report: No growth of fungus 04/22/2020 MICROBIOLOGY (.) 04/22/2020 Final Report: Rare Staphylococcus aureus Methicillin resistant (MRSA) by penicillin binding protein 2a (PBP2a) testing. MICROBIOLOGY Final Report: No growth of fungus 04/22/2020 MICROBIOLOGY 02/06/2020 Final Report: Less than 100,000 colonies/mL (clinically insignificant growth based on current clinical standards) Current CrCl: Estimated Creatinine Clearance: 83.6 mL/min (by C-G formula based on SCr of 0.65 mg/dL). Cr. Radiology: Radiology results were reviewed. Last X-Ray Result: Last CT Result: Results for orders placed during the hospital encounter of 02/06/20 CT Abdomen Pelvis W Contrast Narrative EXAMINATION: Computed tomography of the abdomen and pelvis with intravenous contrast HISTORY: Abdominal pain, history of bowel obstructions with multiple surgeries TECHNIQUE: Transaxial computed tomographic images of the abdomen and pelvis were obtained with intravenous contrast according to the standard protocol after the uneventful administration of 100 mL Opti-Ray 350 intravenous contrast. COMPARISON: 09/18/2019 FINDINGS: 1 bases are clear. Visualized heart is normal in size without pericardial effusion. The liver, gallbladder, spleen are normal. The pancreas is normal. Adrenal glands are normal. There is no a stone in the proximal right ureter which measures 4 mm, without associated hydronephrosis. Redemonstrated are multiple nonobstructing stones in the left kidney, the largest of which is 1 cm, unchanged. The urinary bladder is normal. Multiple phleboliths are again seen in the pelvis. There are postoperative changes of prior bowel resection. There is no evidence of obstruction or inflammation. The abdominal aorta is moderately atherosclerotic an moderately narrowed. No free intraperitoneal gas or fluid detected. No pelvic or mesenteric lymphadenopathy identified. Bone windows are negative for suspicious osseous lesions. Impression 1. New 4 mm stone in the proximal right ureter without hydronephrosis. There are multiple unchanged nonobstructing left renal stones 2. No bowel obstruction identified Dictated by: Parveen Lauren M.D. The radiology attending physician has personally reviewed this study, and had reviewed and/or edited this written report and agrees with it. Electronically signed by: Chuckie Bland M.D. The following images were personally examined and the following details determined: Assessment/Plan Patient Madison Weinberg is a 54 y.o. 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 She underwent wound exploration on 04/22 and mesh excision with mesh culture growing MRSA.??Complete mesh could not be surgicallyremoved and the purulent clearly infected portion periumbilical was removed, however the epigastricportion is retained. She was initially on cefazolin and vancomycin was added on 04/24. She received 2 wks of IV Vancomycin (05/08) for the associated soft tissue MRSA infection and transitioned to oralhigh dose Bactrim (DS BID) to be continued indefinitely. Patient was discharged on bactrim DS daily, she has tolerated and wound healing. Infected prosthetic mesh of abdominal wall Plan: - continue bactrim DS, increase dose to BID sent to local pharmacy - last CBC and CMP 04/2020 wnl, repeat next visit - patient is reluctant to continue long-term antibiotics given prior complications, will plan to continue at least until resolution of abdominal wall wound - we discussed the rationale for management, culture results, medications, length of therapy, risk of recurrent infection, as well as signs/symptoms of recurrent infection (including but not limited to fevers/chills/night sweats, worsening pain/erythema/edema,etc) and to contact ID with any concerns. RTC in 3 months Patient seen and discussed with Dr Camacho Cosigned by Rhianna Camacho MD at 06/06/2020 2:25 PM CDT Associated attestation - Rhianna Camacho MD - 06/06/2020 2:25 PM CDT I have seen and examined the patient. I agree with the findings and plan of care as documented in the resident/fellow's note. documented in this encounter Plan of Treatment Not on file documented as of this encounter Visit Diagnoses Diagnosis Infected prosthetic mesh of abdominal wall, subsequent encounter- Primary documented in this encounter Discontinued Medications Medication Sig Discontinue Reason Start Date End Da te sulfamethoxazole-trimeth oprim (BACTRIM DS) 800-160 mg per tablet Take 1 tablet by mouth daily Therapy completed 05/09/2020 06/06/2020 sulfamethoxazole-trimeth oprim (BACTRIM DS) 800-160 mg per tablet Take 1 tablet by mouth every 12 (twelve) hours 06/06/2020 06/06/2020 documented as of this encounter Additional Health Concerns Infection Onset Date Last Indicated Resolved Time 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, nares 04/22/20; 01/18/21; urine 01/14/21 09/19/2019 02/09/2021 10/10/2021 4:00 AM LAB CLERK documented as of this encounter Care Teams Home Visitor Relationship Specialty Start Date End Date Lazarus Albert MD [address] [place] [address] PCP - General 09/25/19 03/04/24 documented as of this encounter
--- OUTSIDE RECORDS SUMMARY | 2024-08-08 16:04 | XMS_ITS | Encounter Summary ---
Author Organization [facility] Home Care Servic es Address [address] [place] [address] Phone Care Team Providers Care Supervisor Loading Name Role Phone Lazarus Albert MD Primary Care Provider [phone] Reason for Visit * Auth/Cert Specialty Diagnoses / Procedures Referred By Susan t Referred To Contact Referral ID Status Reason Start Date Expiration Date Visits Re quested Visits Authorized [id number] 1 1 Encounter Details Date Type Department Care Team (Late st Contact Info) Description 04/30/2020 Home Care Visit [facility] Home Health - [address] [place] [address] Taylor Eckert, TRAFFIC SIGNAL REPAIRER SCREENING CASE COMMUNICATION Social History Tobacco Use Types Packs/Day Years Used Date Smoking Tobacco: Former Cigarettes 2 26.6 1 982 - 03/19/2008 E-cigarettes Smokeless Tobacco: Never Alcohol Use Standard Drinks/Week Comments Yes 0 (1 standard drink = 0.6 oz pur e alcohol) rarely Comments No Sex and Gender Information Value Date Recorded Sex Assigned at Not on file 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 Gender Identity Not on file Sexual Orientation Not on file documented as of this encounter Plan of Treatment Not on file documented as of this encounter Visit Diagnoses Not on filedocumented in this encounter Additional Health Concerns Infection Onset Date Last Indicated Resolved Time 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, nares 04/22/20; 01/18/21; urine 01/14/21 09/19/2019 02/09/2021 10/10/2021 4:00 AM REAL ESTATE APPRAISER documented as of this encounter Care Teams Supervisor Loading Relationship Specialty Start Date End Date Lazarus Albert MD [address] [facility] FAMILY MEDICINE [place] [id number] PCP - General 09/25/19 03/04/24 documented as of this encounter
--- OUTSIDE RECORDS SUMMARY | 2024-08-08 16:04 | XMS_ITS | Encounter Summary ---
Author Organization [facility] Address [address] [place] [address] Phone Care Team Providers Care Clay Stain Mixer Name Role Phone Lazarus Albert MD Primary Care Provider [phone] Encounter Details Date Type Department Care Team (Late st Contact Info) Description 05/05/2020 Telephone [facility] Infectious Diseases [address] [place] [address] [address] [place] [address] Jasper Herrmann Carlos Social History Tobacco Use Types Packs/Day Years Used Date Smoking Tobacco: Former Cigarettes 2 26.6 1 982 - 03/19/2008 E-cigarettes Smokeless Tobacco: Never Alcohol Use Standard Drinks/Week Comments Yes 0 (1 standard drink = 0.6 oz pur e alcohol) rarely Comments No Sex and Gender Information Value Date Recorded Sex Assigned at Not on file Legal Sex Female 5:42 AM WOOD TOOL MAKER Gender Identity Not on file Sexual Orientation Not on file documented as of this encounter Ordered Prescriptions Prescription Sig Dispense Quantity Refills Last Filled Start Date End Date fluconazole (DIFLUCAN) 150 mg tablet Take 1 tablet (150 mg total) by mouth once for 1 dose 1 tablet 05/05/2020 05/05/2020 documented in this encounter Miscellaneous Notes * Telephone Encounter - Zaria Lopez - 05/05/2020 11:28 AM CDT Called and LVM for HHRN * Telephone Encounter - Erum Heard NP - 05/05/2020 11:07 AM CDT Good morning! I put in an order for fluc to her pharmacy. Thanks! * Telephone Encounter - Zaria Lopez - 05/05/2020 9:34 AM CDT Erum, Please advise. * Telephone Encounter - Jasper Herrmann RMA - 05/05/2020 9:[address] [facility] home care nurse [phone], called to report that pt has a yeast infection. Nurse would like a order for medicine to treat it. 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
--- OUTSIDE RECORDS SUMMARY | 2024-08-08 16:04 | XMS_ITS | Encounter Summary ---
Author Organization [facility] Address [address] [place] [address] Phone Care Team Providers Care Mill Stenciler Name Role Phone Lazarus Albert MD Primary Care Provider [phone] Reason for Visit * Auth/Cert Specialty Diagnoses / Procedures Referred By Susan t Referred To Contact Referral ID Status Reason Start Date Expiration Date Visits Re quested Visits Authorized [id number] 1 1 Encounter Details Date Type Department Care Team (Late st Contact Info) Description 05/11/2020 Home Care Visit [facility] Home Health - [address] [place] [address] Taylor Eckert, GROUP CAPTAIN SCREENING CASE COMMUNICATION Social History Tobacco Use Types Packs/Day Years Used Date Smoking Tobacco: Former Cigarettes 2 26.6 1 982 - 03/19/2008 E-cigarettes Smokeless Tobacco: Never Alcohol Use Standard Drinks/Week Comments Yes 0 (1 standard drink = 0.6 oz pur e alcohol) rarely Comments No Sex and Gender Information Value Date Recorded Sex Assigned at Not on file Legal Sex Female 5:42 AM TOXICS PROGRAM OFFICER Gender Identity Not on file Sexual Orientation Not on file documented as of this encounter Plan of Treatment Not on file documented as of this encounter Visit Diagnoses Not on filedocumented in this encounter Additional Health Concerns Infection Onset Date Last Indicated Resolved Time 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
--- OUTSIDE RECORDS SUMMARY | 2024-08-08 16:04 | XMS_ITS | Encounter Summary ---
Author Organization [facility] Address [address] [place] [address] Phone Care Team Providers Care Crystal Mounter Name Role Phone Lazarus Albert MD Primary Care Provider [phone] Reason for Visit * Reason Onset Date Comments OPAT; firm stop on 05/0705/06/2020 Encounter Details Date Type Department Care Team (Late st Contact Info) Description 05/06/2020 Telephone [facility] Infectious Diseases [address] [place] [address] Keke Han RN OPAT; firm stop on 05/07 Social History Tobacco Use Types Packs/Day Years Used Date Smoking Tobacco: Former Cigarettes 2 26.6 1 982 - 03/19/2008 E-cigarettes Smokeless Tobacco: Never Alcohol Use Standard Drinks/Week Comments Yes 0 (1 standard drink = 0.6 oz pur e alcohol) rarely Comments No Sex and Gender Information Value Date Recorded Sex Assigned at Not on file Legal Sex Female 5:42 AM FELT STRIP FINISHER Gender Identity Not on file Sexual Orientation Not on file documented as of this encounter Miscellaneous Notes * Telephone Encounter - Keke Han RN - 05/06/2020 3:48 PM CDT ----- Message from Chuckie Logan RPh sent at 05/06/2020 3:33 PM CDT ----- Thanks Erum [facility] branch and Ms Weinberg are aware the PICC can come out after her 05/07/20 doses Ms Weinberg confirmed she has oral Bactrim RX Chuckie ----- Message ----- From: Erum Heard NP Sent: 05/06/2020 2:43 PM CDT To: Chuckie Logan RPh, Toni Im Id Nurse Konrad Thank you for the update! Happy to see her potassium has improved. Perfectly fine for the PICC to come out on 05/08. Does she have Bactrim to start once completing theIV antibiotics? Plan was for her to start Bactim DS BID after finishing the vanc. ~Erum ----- Message ----- From: Chuckie Logan RPh Sent: 05/06/2020 11:04 AM CDT To: Erum Heard NP, # [facility] 05/05/20 for Ms Weinberg Vanc tr 14.5, K 3.4, SCr 0.65 Ms Weinberg was asking if her PICC line can come out on 05/08/20 after she finishes her Vancomycin Chuckie ----- Message ----- From: Erum Heard NP Sent: 05/03/2020 12:44 PM CDT To: Chuckie Logan RPh Thank you for the update! Appreciate your [...] 12:15 PM CDT To: Chuckie Logan RP, Toni Im Id Nurse Konrad Good afternoon, Thank you for getting Ms. Weinberg added to the vancomycin protocol! 05/07 for length of therapy please! Where you able to get in touch with her for the potassium? Would like to recheck it. I tried calling earlier today with no luck. Thanks, Erum ----- Message ----- From: Chuckie Logan RPh Sent: 05/03/2020 10:50 AM CDT To: Erum Heard NP, Stephanie Danielson Mr Weinberg thinks the length of therapy is until 05/08/20 We had down through 05/07/20 when she was discharged (and as below) Please advise on length of therapy Chuckie ----- Message ----- From: Erum Heard NP Sent: 05/02/2020 10:24 AM CDT To: Chuckie Logan [facility] Good morning! Could we please add Ms. [...] urine 01/14/21 09/19/2019 02/09/2021 10/10/2021 4:00 AM FELT STRIP FINISHER documented as of this encounter Care Teams Crystal Mounter Relationship Specialty Start Date End Date Lazarus Albert MD 9 [facility] [place]PT [place] [address] PCP - General 09/25/19 03/04/24 documented as of this encounter
--- OUTSIDE RECORDS SUMMARY | 2024-08-08 16:04 | XMS_ITS | Encounter Summary ---
Author Organization [facility] Address [address] [place] [address] Phone Care Team Providers Care Earth Science Technical Officer Name Role Phone Lazarus Albert MD Primary Care Provider [phone] Reason for Visit * Reason Onset Date Comments OPAT 05/06/2020 Encounter Details Date Type Department Care Team (Late st Contact Info) Description 05/06/2020 Telephone [facility] Infectious Diseases [address] [place] [address] [address] [place] [address] Zaria Lopez OPAT Social History [...] on file Legal Sex Female 5:42 AM TOOL HARDENER Gender Identity Not on file Sexual Orientation Not on file documented as of this encounter Miscellaneous Notes * Telephone Encounter - Zaria Lopez - 05/06/2020 3:22 PM CDT ----- Message from Erum Heard NP sent at 05/06/2020 2:43 PM CDT ----- Thank you for the update! Happy to see her potassium has improved. Perfectly fine for the PICC to come out on 05/08. Does she have Bactrim to start once completing theIV antibiotics? Plan was for her to start Bactim DS BID after finishing the vanc. ~Erum ----- Message ----- From: Chuckie Logan [facility] Sent: 05/06/2020 11:04 AM CDT To: Erum Heard NP, # [facility] 05/05/20 for Ms Weinberg Vanc tr 14.5, K 3.4, SCr 0.65 Ms Weinberg was asking if her PICC line can come out on 05/08/20 after she finishes her Vancomycin Chuckie ----- Message ----- From: Erum Heard NP Sent: 05/03/2020 12:44 PM CDT To: Chuckie Logan [facility] Thank you for the update! Appreciate your help. ~Erum ----- Message ----- From: Chuckie Logan RP Sent: 05/03/2020 12:31 PM CDT To: Erum Herad NP, # Erum Spoke to the and he reported she was feeling fine and eating well For now he was treating it with diet Vanc protocol report was sent over late yesterday Chuckie ----- Message ----- From: Erum Heard NP Sent: 05/03/2020 12:15 PM CDT To: Chuckie Logan [facility], Muñoz Id Nurse Pool Good afternoon, Thank you for getting Ms. Weinberg added to the vancomycin protocol! 05/07 for length of therapy please! Where you able to get in touch with her for the potassium? Would like to recheck it. I tried calling earlier today with no luck. Thanks, Erum ----- Message ----- From: Chuckie Logan [facility] Sent: 05/03/2020 10:50 AM CDT To: Erum [...] urine 01/14/21 09/19/2019 02/09/2021 10/10/2021 4:00 AM TOOL HARDENER documented as of this encounter Care Teams Earth Science Technical Officer Relationship Specialty Start Date End Date Lazarus Albert MD [address] [facility] [place] [address] PCP - General 09/25/19 03/04/24 documented as of this encounter
--- OUTSIDE RECORDS SUMMARY | 2024-08-08 16:04 | XMS_ITS | Encounter Summary ---
Author Organization [facility] Address [address] [place] [address] Phone Care Team Providers Care Fairmont Gold Attendant Name Role Phone Lazarus Albert MD Primary Care Provider [phone] Reason for Visit * Reason Comments Wound Care * Auth/Cert Specialty Diagnoses / Procedures Referred By Contac t Referred To Contact Referral ID Status Reason Start Date Expiration Date Visits Re quested Visits Authorized [id number] 1 1 Encounter Details Date Type Department Care Team (Late st Contact Info) Description 05/19/2020 11:15 AM CDT Home Care Visit [facility] [address] [address] [address] [place] [address] Harper Pena, KAT SN HOME VISIT Social [...] on file Legal Sex Female 5:42 AM DRYWALL FOREMAN Gender Identity Not on file Sexual Orientation Not on file documented as of this encounter Last Filed Vital Signs Vital Sign Reading Time Taken Comments Blood Pressure 120/60 05/19/2020 1:00 PM CDT Pulse 88 05/19/2020 1:00 PM CDT Temperature 37.3 ??C (99.1 ??F) 05/19/2020 1:00 PM CD T Respiratory Rate 18 05/19/2020 1:00 PM CDT Oxygen Saturation 97% 05/19/2020 1:00 PM CDT Inhaled Oxygen Concentration - - Weight 53.5 kg (118 lb) 05/19/2020 1:00 PM CDT Height - - Body Mass Index 19.64 05/11/2020 2:13 PM CDT documented in this encounter Plan of Treatment Not on file documented as of this encounter Visit Diagnoses Not on filedocumented in this encounter Additional Health Concerns Infection Onset Date Last Indicated Resolved Time 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, 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/22/20; 01/18/21; urine 01/14/21 09/19/2019 02/09/2021 10/10/2021 4:00 AM DRYWALL FOREMAN documented as of this encounter Home Health Visit - Care Plan Visit Details Visit Type -SN Home Visit Discipline -Retirement Problems Problem Description Start Date Status Goals Interve ntions Homebound Status Disciplines: Retirement Patient's homebound status 04/29/2020 Active 1 goal linked to scheduled/documen tee intervention 1 goal intervention scheduled/document ed in this visit Medications Disciplines: Retirement Management of home medications 04/29/2020 Active 1 goal linked to scheduled/documen tee intervention 2 goal interventions scheduled/document ed in this visit Monitor patient's vital signs every home health visit Disciplines: Retirement Monitor patient's vital signs every home health visit. 04/29/2020 Active 1 goal linked to scheduled/documen tee intervention 1 goal intervention scheduled/document ed in this visit Infection Prevention Disciplines: Retirement Infection Prevention 04/29/2020 Active 1 goal linked to scheduled/documen tee intervention 1 goal intervention scheduled/document ed in this visit Fall Precautions/Saf ety Concerns Disciplines: Retirement Alteration in safety 04/29/2020 Active 1 goal linked to scheduled/documen tee intervention 1 goal intervention scheduled/document ed in this visit Pain Disciplines: Retirement Alteration in comfort 04/29/2020 Active 1 goal linked to scheduled/documen tee intervention 1 goal intervention scheduled/document ed in this visit Wound Risk of Infection Disciplines: Retirement Risk of infections related to wounds 04/29/2020 Active 1 goal linked to scheduled/documen tee intervention 1 goal intervention scheduled/document ed in this visit Wound Education and Management Disciplines: Retirement Deficiency of cognitive information related to wound care 04/29/2020 Active 1 goal linked to scheduled/documen tee intervention 2 goal interventions scheduled/document ed in this visit Wound Care Disciplines: Retirement Wound care needed 04/29/2020 Active 1 goal linked to scheduled/documen tee intervention 1 problem intervention scheduled/document ed in this visit 1 goal intervention scheduled/document ed in this visit Goals Goal Associated Problem Outcome Goal Met? Visit Notes Patient recieves care at the most appropriate care setting Description: Patient receives care at the most appropriate care setting. Homebound Status No Understand and follow medication therapy Description: Patient/caregiver will understand and follow prescribed medication therapy as evidence by having up to date medication list in home & ability to verbalize purpose, schedule, and side effects by the end of the episode of care Medications No Measure vital signs during every home health visit during episode of care Description: Home demo coordinator to measure vital signs during every home health visit during episode of care. Monitor patient's vital signs every home health visit No Verbalize signs of infection Description: Verbalize signs of infection Infection Prevention No Demonstrate use of safety precautions Description: Demonstrate use of safety precautions Fall Precautions/Safety Concerns No Report that pain has been reduced [...] Patient is homebound due to recent surgery, pain, weakness, poor endurance, open wound Instruct on Medication Management Description: Instruct patient/caregiver in medication administration, purpose, dosages, preparation, scheduling, side effects, food/drug interactions, storage, drug allergies, and potential complications. Problem:Medications Goal:Understand and follow medication therapy Completed instructed on bactrim . instructed on reason for use, dosage and possible side effects. understanding expressed. Instruct on High Risk Medications Description: Instruct patient/caregiver on high-risk/high-alert medications, including: anti-convulsant, anti-retroviral, anti-coagulant, chemotherapeutic, hypo-glycemic, immunosuppressant, insulin, and opioid. Problem:Medications Goal:Understand and follow medication therapy Completed instructed on roxicodone . instructed on reason for use, dosage and possible side effects. understanding expressed. Monitor Vital Signs Description: Monitor blood pressure, [...] Goal:Verbalize signs of infection Completed instructed to wash hands and use gloves when providing wound care. understanding expressed. [place] Fall Precautions Description: Assess patient safety Problem:Fall Precautions/Safety Concerns Goal:Demonstrate use of safety precautions Completed instructed to use walker or assist when ambulating if she feels weak or idzzy. understanding expressed. Instruct on pain management techniques [...] of Infection Goal:Knowledgeable of infection Completed instructed on s/s of infection that need to be reported to the dr including redness, open areas, foul odor, increase in drainage or change in color or drainage to yellow or green. understanding expressed. Hydration for Wound Healing Description: Instruct on adequate hydration for wound healing, generally 6.5-8 cups (52-64oz/day). Unless health professional has suggested a fluid restriction Problem:Wound Education and Management Goal:Knowledgeable on Woundcare Completed instructed on proper hydration for wound healing and bowel and bladder status. understanding expressed. Instruct patient on maintaining adequate nutrition and hydration Description: Instruct patient on maintaining adequate nutrition for wound healing. Instruct pt/cg on eating/offering a balanced diet. Instruct on adequate protein sources per Wound Education Booklet. Consult RD for chronic malnutrition, stage 3 or 4 pressure ulcer. Problem:Wound Education and Management Goal:Knowledgeable on Woundcare Completed instructed on proper diet and hydration for wound healing including increase in protein. understanding expressed Skilled assessment wound Description: Full wound assessment [...] and secure with tape.. Problem:Wound Care Completed documented in this encounter Home Health Visit - Actions and Narratives Actions pt has not felt good the las t couple days. pt has had low grade fever, nausea with some vomiting, weakness and achy and tired. called to surgeon. states that she should call per pcp. pt states that she will call if symptoms do not improve by tomorrow. instructed to go to er if symptoms worsen. understanding expressed. documented in this encounter Care Teams Fairmont Gold Attendant Relationship Specialty Start Date End Date Lazarus Albert MD 9 [facility] DEPT [place] [address] PCP - General 09/25/19 03/04/24 documented as of this encounter
--- OUTSIDE RECORDS SUMMARY | 2024-08-08 16:04 | XMS_ITS | Encounter Summary ---
Author Organization [facility] Address [address] [place] [address] Phone Care Team Providers Care Refuse Laborer Name Role Phone Lazarus Albert MD Primary Care Provider [phone] Reason for Visit * Reason Onset Date Comments OPAT 05/03/2020 Encounter Details Date Type Department Care Team (Late st Contact Info) Description 05/03/2020 Telephone [facility] Infectious Diseases [address] [place] [address] [address] [place] [address] Keke Han, RN OPAT Social History Tobacco Use Types Packs/Day Years Used Date Smoking Tobacco: Former Cigarettes 2 26.6 1 982 - 03/19/2008 E-cigarettes Smokeless Tobacco: Never Alcohol Use Standard Drinks/Week Comments Yes 0 (1 standard drink = 0.6 oz pur e alcohol) rarely Comments No Sex and Gender Information Value Date Recorded Sex Assigned at Not on file Legal Sex Female 5:42 AM MILL OILER Gender Identity Not on file Sexual Orientation Not on file documented as of this encounter Miscellaneous Notes * Telephone Encounter - Keke Han RN - 05/03/2020 1:04 PM CDT ----- Message from Chuckie Logan RPh sent at 05/03/2020 12:31 PM CDT ----- Erum Spoke to the and he reported she was feeling fine and eating well For now he was treating it with diet Vanc protocol report was sent over late yesterday Chuckie ----- Message ----- From: Erum Heard NP Sent: 05/03/2020 12:15 PM CDT To: Chuckie Logan RPh, Muñoz Im Id Nurse [place] Good afternoon, Thank you for getting Ms. [...] NP Sent: 05/02/2020 10:24 AM CDT To: Chuckei Logan RPh Good morning! Could we please [...] urine 01/14/21 09/19/2019 02/09/2021 10/10/2021 4:00 AM MILL OILER documented as of this encounter Care Teams Refuse Laborer Relationship Specialty Start Date End Date Lazarus Albert MD 9 [facility] DEPT [place] [address] PCP - General 09/25/19 03/04/24 documented as of this encounter
--- OUTSIDE RECORDS SUMMARY | 2024-08-08 16:04 | XMS_ITS | Encounter Summary ---
Author Organization [facility] Address [address] [place] [address] Phone Care Team Providers Care Leather Piece Inspector Name Role Phone Lazarus Albert MD Primary Care Provider [phone] Reason for Visit * Reason Onset Date Comments opat 05/03/2020 Encounter Details Date Type Department Care Team (Late st Contact Info) Description 05/03/2020 Telephone [facility] Infectious Diseases [address] [place] [address] [address] [place] [address] Zaria Lopez opat Social History Tobacco Use Types Packs/Day Years Used Date Smoking Tobacco: Former Cigarettes 2 26.6 1 982 - 03/19/2008 E-cigarettes Smokeless Tobacco: Never Alcohol Use Standard Drinks/Week Comments Yes 0 (1 standard drink = 0.6 oz pur e alcohol) rarely Comments No Sex and Gender Information Value Date Recorded Sex Assigned at Not on file Legal Sex Female 5:42 AM SALES REPRESENTATIVE SALES MANAGER Gender Identity Not on file Sexual Orientation Not on file documented as of this encounter Miscellaneous Notes * Telephone Encounter - Zaria Lopez - 05/03/2020 9:22 AM CDT ----- Message from Violet Billingsley sent at 05/03/2020 7:41 AM CDT ----- ----- Message ----- From: Chuckie Logan RPh Sent: 05/02/2020 4:26 PM CDT To: Erum Heard NP, # Erum Just saw this, Ms Weinberg had a K of 3.0 on 05/01/20 Attempting to reach her now.... Chuckie ----- Message ----- From: Erum Heard [...] urine 01/14/21 09/19/2019 02/09/2021 10/10/2021 4:00 AM SALES REPRESENTATIVE SALES MANAGER documented as of this encounter Care Teams Leather Piece Inspector Relationship Specialty Start Date End Date Lazarus Albert MD [address] [facility] [place] [address] PCP - General 09/25/19 03/04/24 documented as of this encounter
--- OUTSIDE RECORDS SUMMARY | 2024-08-08 16:04 | XMS_ITS | Encounter Summary ---
Author Organization [facility] Address [address] [place] [address] Phone Care Team Providers Care Switchboard Inspector Name Role Phone Lazarus Albert MD Primary Care Provider [phone] Encounter Details Date Type Department Care Team (Late st Contact Info) Description 06/07/2020 Telephone [facility] Surgery [address] [facility] Advanced Medicine 8th [place] [address] [place] [address] Jinny Castro RMA Social History [...] on file Legal Sex Female 5:42 AM STEAMFITTER SUPERVISOR Gender Identity Not on file Sexual Orientation Not on file documented as of this encounter Miscellaneous Notes * Telephone Encounter - Jinny Castro MA - 06/07/2020 11:10 AM CDT Screened for tomorrow's appointment. 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
--- OUTSIDE RECORDS SUMMARY | 2024-08-08 16:04 | XMS_ITS | Encounter Summary ---
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
--- OUTSIDE RECORDS SUMMARY | 2024-08-08 16:04 | XMS_ITS | Encounter Summary ---
Author Organization [facility] Healthcare Address [address] [place] [address] Care Team Providers Care Sewer Inspector Name Role Phone Lazarus Albert MD Primary Care Provider Encounter Details Date Type Department Care Team (Latest Contact Info) Description 04/22/2020 5:04 AM CDT - 04/28/2020 4:22 PM CDT Hospital Encounter [facility] [address] [place] [address] Ari Yeh MD [address] [facility] [place] [phone] [place] [address] Infected prosthetic mesh of abdominal wall, initial encounter ([facility]) (Primary Dx) Discharge Disposition: Discharge to home, home health skilled care Social History Tobacco Use Types Packs/Day Years Used Date Smoking Tobacco: Former Cigarettes 2 26.6 1 982 - 03/19/2008 E-cigarettes Smokeless Tobacco: Never Alcohol Use Standard Drinks/Week Comments Yes 0 (1 standard drink = 0.6 oz pur e alcohol) rarely Comments No Sex and Gender Information Value Date Recorded Sex Assigned at Not on file 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 Gender Identity Not on file Sexual Orientation Not on file documented as of this encounter Last Filed Vital Signs Vital Sign Reading Time Taken Comments Blood Pressure 133/80 04/28/2020 11:18 AM CDT Pulse 100 04/28/2020 11:18 AM CDT Temperature 36.7 ??C (98 ??F) 04/28/2020 11:18 AM CDT Respiratory Rate 18 04/28/2020 11:18 AM CDT Oxygen Saturation 100% 04/28/2020 11:18 AM CDT Inhaled Oxygen Concentration - - Weight 53.5 kg (118 lb) 04/22/2020 6:01 AM CDT Height 165.1 cm (5' 5 ) 04/22/2020 6:01 AM CDT Body Mass Index 19.64 04/22/2020 6:01 AM CDT documented in this encounter Discharge Diagnoses Diagnosis Infection and inflammatory reaction due to other internal prosthetic devices, implants and grafts, initial encounter ([facility]) - INFECTION AND INFLAMMATORY REACTION DUE TO OTHER INTERNAL PROSTHETIC DEVICES, IMPLANTS AND GRAFTS, I Infection following a procedure, superficial incisional surgical site, initial encounter - INFECTION FOLLOWING A PROCEDURE, SUPERFICIAL INCISIONAL SURGICAL SITE, INITIAL ENCOUNTER Cutaneous abscess of abdominal wall - CUTANEOUS ABSCESS OF ABDOMINAL WALL Surgical operation with anastomosis, bypass or graft as the cause of abnormal reaction of the patient, or of later complication, without mention of misadventure at the time of the procedure - SURGICAL OPERATION WITH ANASTOMOSIS, BYPASS OR GRAFT THE CAUSE OF ABNORMAL REACTION OF THE PATIEN Unspecified place or not applicable - UNSPECIFIED PLACE OR NOT APPLICABLE Other specified events, undetermined intent, initial encounter - OTHER SPECIFIED EVENTS, UNDETERMINED INTENT, INITIAL ENCOUNTER Other chronic pain - OTHER CHRONIC PAIN Unspecified abdominal pain - UNSPECIFIED ABDOMINAL PAIN Trigeminal neuralgia - TRIGEMINAL NEURALGIA Personal history of other venous thrombosis and embolism - PERSONAL HISTORY OF OTHER VENOUS THROMBOSIS AND EMBOLISM Iron deficiency anemia, unspecified - IRON DEFICIENCY ANEMIA, UNSPECIFIED Gastro-esophageal reflux disease without esophagitis - GASTRO-ESOPHAGEAL REFLUX DISEASE WITHOUT ESOPHAGITIS Methicillin resistant Staphylococcus aureus infection as the cause of diseases classified elsewhere - METHICILLIN RESISTANT STAPHYLOCOCCUS AUREUS INFECTION THE CAUSE OF DISEASES CLASSIFIED ELSEWHERE Hyperlipidemia, unspecified - HYPERLIPIDEMIA, UNSPECIFIED Generalized anxiety disorder - GENERALIZED ANXIETY DISORDER Age-related osteoporosis without current pathological fracture - AGE-RELATED OSTEOPOROSIS WITHOUT CURRENT PATHOLOGICAL FRACTURE Personal history of urinary calculi - PERSONAL HISTORY OF URINARY CALCULI Personal history of pulmonary embolism - PERSONAL HISTORY OF PULMONARY EMBOLISM Personal history of nicotine dependence - PERSONAL HISTORY OF NICOTINE DEPENDENCE Allergy status to analgesic agent status - ALLERGY STATUS TO ANALGESIC AGENT STATUS Allergy status to narcotic agent status - ALLERGY STATUS TO NARCOTIC AGENT STATUS Allergy status to other drugs, medicaments and biological substances status - ALLERGY STATUS TO OTHER DRUGS, MEDICAMENTS AND BIOLOGICAL SUBSTANCES STATUS bridges 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 [facility] Acute Care Surgery Inpatient Discharge Summary This is a clinical resume for patient Madison Weinberg for attending Ari Yeh MD Admission Date: 04/22/2020 Admitting Provider: Ari Yeh MD Discharge Date: 04/28/2020 Hospitalization: Total duration of encounter: 6 days Team: Acute Care Surgery Primary Care Provider: Lazarus Albert MD History of Present Illness: 54 y.o. female w/ PMH of endometriosis of the colon status post multiple abdominal surgeries, colonresections, SBO, hernia repair complicated by chronic mesh infection (she reports) and chronic abdominal wound who presents with chief complaint of acute on chronic abdominal pain. Pain is diffuse, constant, 10/10, associated with vomiting; nonbloody, nonbilious; chronic vomiting spells along with episodes breakthrough pain. Dr. Yeh following her in clinic and has discussed with her an her the chronic nature of the abdominal pain and draining sinus tract. She understands this surgery may not address the chronicabdominal pain. Admitted for surgical exploration and MESH excision. 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 Hospital Course: History of DVT (deep vein thrombosis) Assessment & Plan - holding xarelto in post-operative period, will monitor for bowel leak and consider resuming 04/25 - heparin gtt started 04/23 - 04/24 holding heparin in setting of elevated PTT and ongoing wound bleeding - 9/14 resume heparin gtt post dressing change -LED negative for DVT - 04/26 per patient PCP, d/c hep and start ASA 81mg once every other day. DVT was >1yr ago (11/2018) and pt doesn't have any other hypercoagulable states 04/28/2020 ASA 81 mg PO every other day per PCP Dr. Albert. No indication for anticoagulation. Abdominal pain Assessment & Plan Scheduled Tylenol, PRN oxycodone changed from q4h to q3h Home flexeril, allergy to gabapentin 04/27 Will give Lyrica 50 mg daily. Allergy to gabapentin is unclear, mental status changes. 04/28/20 She feels the Lyrica is making her feel funny so she will not go home with Lyrica prescription. 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 Active Issues Requiring Follow Up: Evaluate open wound/drainage Following up with ID team for vancomycin and Bactrim Operative Procedures Performed: ABDOMINAL MESH EXCISION 3.5X8 ABDOMINAL SKIN EXCISION 6X5.5 (N/A ) No surgery found Consultations: ID Diagnostic studies: Lab Results Component Value Date WBC 5.9 04/27/2020 HGB 8.8 (L) 04/27/2020 HCT 27.1 (L) 04/27/2020 MCV 90.3 04/27/2020 LABPLAT 300 04/27/2020 Lab Results Component Value Date GLUCOSE 101 04/27/2020 CALCIUM 8.9 04/27/2020 SODIUM 137 04/27/2020 POTASSIUM 4.0 04/27/2020 CO2 26 04/27/2020 CHLORIDE 105 04/27/2020 BUNSER 9 04/27/2020 CREATININE 0.79 04/27/2020 No results found. Discharge Physical Exam: Discharge Condition: good Pulse: 121 Resp: 20 BP: 146/87 Temp: 36.4 ??C (97.5 ??F) Weight: 53.5 kg (118 lb) GENERAL- no acute distress, comfortable NEURO- alert and oriented, normal balance and gait PSYCH- Mood and affect appropriate HEENT- Pupils equal, EOMs grossly normal, mucous membranes moist LYMPHATICS- no palpable lymphadenopathy CARDIO- regular rate and rhythm RESP- nonlabored respirations GI- abdomen soft, tender near lower midline wound, nondistended MSK- grossly normal range of motion EXTREMITIES- extremities warm and dry, no swelling INTEGUMENT- no rashes Lower abdominal midline wound tissue pink/clean. Dark drainage on packing gauze when removed. Diet: Diet Instructions Adult Discharge Diet Diet Type: Other (specify) Explanatory Comment: Regular diet. Ensure plus supplements with meals Discharge Disposition: Discharge to home or self care Code Status at Discharge: Full Code Activity: Activity Instructions Discharge Activity: Driving restrictions -Do not drive while taking pain medications. Discharge Activity: Lifting restrictions -Do NOT lift greater than 10 pounds for 6 weeks. Discharge Activity: Walking -You may walk as tolerated. activity as tolerated, no driving while on analgesics and no heavy lifting for 6 weeks Wound Care: Able to bathe self, groom and Carries out hygiene routine on a regular basis keep wound clean and dry and as directed dressing changes Discharge Medications: Your medication list START taking these medications acetaminophen 500 mg capsule Take 2 capsules (1,000 mg total) by mouth every 6 (six) hours oxyCODONE 5 mg immediate release tablet Take 1 tablet (5 mg total) by mouth every 4 (four) hours as needed for pain Commonly known as: ROXICODONE pregabalin 50 mg capsule Take 1 capsule (50 mg total) by mouth daily Commonly known as: LYRICA Start taking on: April 29, 2020 sodium chloride 0.9% injection Administer 0.5-20 mL into catheter as needed for line care sodium chloride 0.9% injection Administer 5-10 mL into catheter every 12 (twelve) hours sulfamethoxazole-trimethoprim 800-160 mg per tablet Take 1 tablet by mouth daily Commonly known as: BACTRIM DS Start taking on: May 09, 2020 vancomycin 750 mg/150 mL IVBP Infuse 150 mL (750 mg total) into a venous catheter every 12 (twelve) hours for 10 days CHANGE how you take these medications polyethylene glycol 17 gram packet Commonly known as: MIRALAX What changed: Another medication with the same name was removed. Continue taking this medication, and follow the directions you see here. CONTINUE taking these medications alendronate 70 mg tablet Commonly known as: FOSAMAX calcium carbonate-vitamin D3 500 mg(1,250mg) -400 unit chewable tablet clonazePAM 1 mg tablet Commonly known as: KlonoPIN clotrimazole-betamethasone cream Commonly known as: LOTRISONE cyanocobalamin 100 mcg tablet Commonly known as: Vitamin B-12 cyclobenzaprine 10 mg tablet Commonly known as: FLEXERIL dicyclomine 10 mg capsule Commonly known as: BENTYL docusate sodium 100 mg capsule Commonly known as: COLACE ergocalciferol 50,000 unit capsule Commonly known as: VITAMIN D ferrous fumarate 325 mg (106 mg iron) tablet folic acid 1 mg tablet Commonly known as: FOLVITE levocetirizine 5 mg tablet Commonly known as: XYZAL rizatriptan 10 mg tablet Commonly known as: MAXALT traZODone 150 mg tablet Commonly known as: DESYREL STOP taking these medications bisacodyl EC 5 mg EC tablet Commonly known as: DULCOLAX EC metroNIDAZOLE 500 mg tablet Commonly known as: FLAGYL neomycin 500 mg tablet Commonly known as: MYCIFRADIN ondansetron 8 mg tablet Commonly known as: ZOFRAN rivaroxaban 20 mg tablet Commonly known as: XARELTO Discharge Instructions: Other Instructions Ambulatory referral to Home Health Service Line: Home Health and Infusion Primary disciplines requested: [facility]: Wound/ Ostomy Care Infusion Services: Central Venous Access Labs to be drawn: Vancomycin 750 mg Q12 hr 04/24 through 05/08, CBC and BMP should be monitored weekly while on vancomycin, twice weekly vanc trough, CBC,BMP weekly and FAX to [facility] [phone] while on Bactrim DS Line: PICC Physician to follow patient's care (the person listed here will be responsible for signing ongoing orders): Referring Provider Requested Start of Care Date: Tomorrow Special instructions (labs, wound care, etc.): midline saline damp to dry dressing to be changed twice a day, PICC managment and antibiotic education. Vancomycin 750 mg Q12 hr 04/24 through 05/08 I attest that I or another qualified licensed provider saw the patient 90 days prior to or 30 days post admission and this face to face encounter meets the necessary Home Health requirements. The face to face encounter occurred on (date): 04/25/2020 The encounter with the patient was in whole, or in part, for the following medical condition, whichis the primary reason for home health care. (List medical condition): infected mesh Clinical findings that support the need for home care: Medical condition requiring skilled assessment/education Wound requiring care, assessment, and instruction I certify that my clinical findings support patient's homebound status. Homebound criteria met because: Pain and impaired mobility post-op Call provider for: increased temperature -Temperature greater than 101 degrees F Call provider for: nausea, vomiting, diarrhea -If you have persistent nausea, vomiting or diarrhea that does not stop Call provider for: redness, tenderness, or signs of infection (pain, swelling, redness, odor or green/yellow discharge around incision site) Call provider for: severe uncontrolled pain Call provider for: any other concerns or questions Call with question or concerns regarding your hospitalization [phone]. Call provider if: you feel dizzy, very tired or like you may faint Care Instructions: NS damp gauze place in midline wound, pack to base of wound. Apply dry dressing over the top. Change dressing twice daily. Wear your binder when out of bed ambulating. May remove when sleeping or to bathe. Care Instructions: No tub baths -No tub baths, whirlpools or swimming until your provider says it's ok. Care Instructions: Shower -You may shower daily and allow soap and water to cleanse midline incision. Pat dry prior to placing dressing. Special Instructions You will be on the IV Vancomycin through 05/08/2020 On Saturday morning 05/09/2020 start taking the Bactrim DS 1 tablet twice daily. You will be on this medication for about a year. The Infectious disease team will make a follow up appointment for you. They will be monitoring labs weekly while on this medication. The Home Health nurses will teach you how to infuse the Vancomycin and take care of the line while at home. You DO NOT need to take the Xarelto, your Primary Care Physician is aware and agrees with this plan. Home Health Provider: [facility] Home Infusion Services Provided: IV infusion services You will be contacted by home health to arrange a home visit. If you are not contacted, call the phone number listed above to set up a home visit. [facility] Acute Care Surgery Discharge Instructions Care After Refer to this sheet in the next few weeks. These instructions provide you with information on caring for yourself after your procedure. Your caregiver may also give you more specific instructions. Your treatment has been planned according to current medical practices, but problems sometimes occur. HOME CARE INSTRUCTIONS ??? You can shower in 24 hours. ??? Keep the wound dry and clean. The wound may be washed gently with soap and water. Gently blot or dab the area dry. Let skin glue flake off on its own. Please do not pee off the skin glue. ??? Do not take baths or use swimming pools or hot tubs for 2 weeks, or as instructed by your caregiver. ??? Do not use petroleum products on your incisions (Neosporin or Vaseline) ??? Only take ksea-tkh-vgatdyk or prescription medicines for pain, discomfort, or fever as directedby your caregiver. ??? Continue your normal diet as directed by your caregiver. ??? Do not lift anything heavier than 10 pounds for 2 weeks. ??? Do not play contact sports for 2 weeks. ??? Do not drive for 1 week and off pain medications for 2 days. SEEK MEDICAL CARE IF: ??? There is redness, swelling, or increasing pain in the wound. ??? You notice yellowish-white fluid (pus) coming from the wound. ??? There is drainage from the wound that lasts longer than 1 day. ??? There is a bad smell coming from the wound or dressing. ??? The surgical cut (incision) breaks open. SEEK IMMEDIATE MEDICAL CARE IF: ??? You develop a rash. ??? You have difficulty breathing. ??? You develop chest pain. ??? Rapid heartbeat great than 120 beats per minute. ??? Extreme leg pain or significant leg swelling. ??? You develop any reaction or side effects to medicines given. ??? You have a fever greater than 101.5o Fahrenheit ??? You have increasing pain in the shoulders (shoulder strap areas). ??? You have dizzy episodes or faint while standing. ??? You develop severe abdominal pain. ??? You feel sick to your stomach (nauseous) or throw up (vomit) and this lasts for more than 1 day. ??? You develop diarrhea lasting 24 hours or longer MAKE SURE YOU: ??? Understand these instructions. ??? Will watch your condition. ??? Will get help right away if you are not doing well or get worse. For Follow Up Call [facility] at [phone] Follow up Contact Information for Follow-ups [facility] Home Care Services Specialty: Home Health and Hospice [id number] [facility] [id number] Next Steps: Follow up Questions: Service Line: Home Health and Infusion Primary disciplines requested: [facility]: Wound/ Ostomy Care Infusion Services: Central Venous Access Labs to be drawn: Vancomycin 750 mg Q12 hr 04/24 through 05/08, CBC and BMP should be monitored weekly while on vancomycin, twice weekly vanc trough, CBC,BMP weekly and FAX to ID clinic [phone] while on Bactrim DS Line: PICC Physician to follow patient's care (the person listed here will be responsible for signing ongoing orders): Referring Provider Requested Start of Care Date: Tomorrow Special instructions (labs, wound care, etc.): midline saline damp to dry dressing to be changed twice a day, PICC managment and antibiotic education. Vancomycin 750 mg Q12 hr 04/24 through 05/08 I attest that I or another qualified licensed provider saw the patient 90 days prior to or 30 days post admission and this face to face encounter meets the necessary Home Health requirements. The face to face encounter occurred on (date): 04/25/2020 The encounter with the patient was in whole, or in part, for the following medical condition, whichis the primary reason for home health care. (List medical condition): infected mesh Clinical findings that support the need for home care: Medical condition requiring skilled assessment/education Wound requiring care, assessment, and instruction I certify that my clinical findings support patient's homebound status. Homebound criteria met because: Pain and impaired mobility post-op Referral Status: Some Visits Scheduled Future Appointments Date Time Provider Department Center 05/11/2020 3:00 PM Ari Yeh MD [facility] 05/23/2020 8:40 AM Stephani Ayala MD [facility] I spent greater than 30 minutes completing this hospital discharge. Libby Don 04/28/20 CC: Lazarus Albert MD Cosigned by Ari Yeh MD at 04/30/2020 7:20 AM CDT documented in this encounter Discharge Instructions * Discharge Instructions* Brianne Hernandez MD PhD - 04/25/2020 4:13 PM CDT Images from the original note were not included. Leaving the Hospital on IV Antibiotics Information for Patients and Families Infectious Diseases Because of your infection, you must be treated with antibiotics by vein (IV). Timing is important! You should receive antibiotics on a regular schedule and not skip doses. This will give your body enough antibiotic to fight your infection. Finishing is important! You must finish all antibiotics unless told otherwise by your doctor. Taking all of your antibiotics will help get rid of your infection and prevent resistance to antibiotics. What to expect Labs: A nurse will draw your blood about 1-2 times each week. Labs help us monitor your infection and watch out for antibiotic side effects. Telephone calls: You will be receiving lots of phone calls! People who will need to contact you include the infectious disease clinic, home health nurses, home infusion team (antibiotic providers), pharmacists, and doctors. ??? Please make sure we have a working phone number for you so you can receive these calls that areimportant for your health ??? Please make sure your voicemail is set up AND has space for us to leave a message (just in casewe miss you!) Catheter and Wound care ??? Always wash hands with antibacterial soap and use alcohol-based hand configuration management architect before touching your catheter or changing wound dressings. ??? When drying hands, only use a clean paper towel. ??? Don???t forget to scrub the ???hub?? (tip of your catheter)! Do this with an alcohol wipe before each use. Scrub for 30 seconds (minimum) and allow to dry without blowing on it or waving your hand across it. ??? Refer to your home care service???s instructions for taking care of your IV line and hooking upyour antibiotics. Follow-up Appointment Keeping your follow-up appointment is very important! Below are things that may happen or be decided at your infectious diseases clinic appointment. ??? Look at the infection site and IV to look for problems ??? Determine how long you need to be on IV antibiotics ??? Prescribe oral (pill) antibiotics after finishing IV antibiotics if needed ??? Depending on how you are doing, we may order additional blood work or imaging tests to evaluateyour infection ??? Arrange for your IV line to be removed when the IV antibiotics are completed Questions or Concerns?? Below are reasons to call the Infectious Diseases Clinic RIGHT AWAY! 1. Watery diarrhea more than 3 times in 24 hours. 2. Nausea, vomiting, and/or belly pain 3. Rash and/or itching 4. Chills 5. Drenching night sweats 6. Fever >100.3 7. Increasing redness and/or drainage from a wound 8. Confusion or personality changes 9. Antibiotic catheter problems. Based on your symptoms, we may be able to help you over the phone or have your home health nurse help you. In some cases, you may need to go to the Emergency Room. Contact Infectious Diseases Clinic: Toll-free: [phone] Hospital ID Doctor: Dr. Colin [facility] [address] [place] [address], [address] [place] [address] Patient parking available north of [facility] * Discharge Instr - Other Orders* Xiomy Richards RN - 04/28/2020 12:02 PM CDT Home Health Provider: [facility] Home Infusion Services Provided: IV infusion services You will be contacted by home health to arrange a home visit. If you are not contacted, call the phone number listed above to set up a home visit. documented in this encounter Medications at Time of Discharge alendronate (FOSAMAX) 70 mg tabletIndications: Post-Menopausal Osteoporosis Take 70 mg by mouth every 7 days Take in the morning with a full glass of water, on an empty stomach, and do not take anything else by mouth or lie down for the next 30 min. saturday clotrimazole-betam ethasone (LOTRISONE) cream Apply 1 application topically daily 09/09/2019 dicyclomine (BENTYL) 10 mg capsuleIndications :Irritable Bowel Syndrome Take 10 mg by mouth 3 (three) times a day 08/30/2019 docusate sodium (COLACE) 100 mg capsuleIndications :constipation Take 100 mg by mouth daily polyethylene glycol (MIRALAX) 17 gram packetIndications: constipation Take 17 g by mouth daily with lunch vancomycin 750 mg/150 mL IVBPIndications:Ab dominal/Pelvic Infection,infectio n of mesh Infuse 150 mL (750 mg total) into a venous catheter every 12 (twelve) hours for 10 days 3000 mL 04/28/2020 0 acetaminophen 500 mg capsuleIndications :Pain Take 2 capsules (1,000 mg total) by mouth every 6 (six) hours 30 tablet 04/28/2020 1 aspirin 81 mg enteric coated tablet [The details of the medication are not available because there are pending changes by a home health clinician.] 04/28/2020 1 calcium carbonate-vitamin D3 500 mg(1,250mg) -400 unit chewable tabletIndications: Vitamin D Deficiency Take 1 tablet by mouth every morning 1 clonazePAM (KlonoPIN) 1 mg tabletIndications: Panic Disorder Take 1 mg by mouth 2 (two) times a day 09/09/2019 1 cyanocobalamin (Vitamin B-12) 100 mcg tabletIndications: Prevention of Vitamin B12 Deficiency Take 1,000 mcg by mouth every morning 1 cyclobenzaprine (FLEXERIL) 10 mg tabletIndications: Muscle Spasm Take 10 mg by mouth 2 (two) times a day 4 ergocalciferol (VITAMIN D) 50,000 unit capsuleIndications :Vitamin D Deficiency Take 50,000 Units by mouth once a week Saturday 1 ferrous fumarate 325 mg (106 mg iron) tabletIndications: Iron Deficiency Anemia Take 106 mg of elemental iron by mouth daily with dinner 1 folic acid (FOLVITE) 1 mg tabletIndications: Folate Deficiency Take 1 mg by mouth daily with dinner 1 levocetirizine (XYZAL) 5 mg tablet Take 5 mg by mouth daily with lunch 1 oxyCODONE (ROXICODONE) 5 mg immediate release tabletIndications: Pain Take 1 tablet (5 mg total) by mouth every 4 (four) hours as needed for pain 35 tablet 04/28/2020 0 rizatriptan (MAXALT) 10 mg tabletIndications: Migraine Take 10 mg by mouth once as needed for migraine May repeat in 2 hours if unresolved. Do not exceed 30 mg in 24 hours. 1 sodium chloride 0.9% injection Administer 0.5-20 mL into catheter as needed for line care 5 mL 04/28/2020 0 sodium chloride 0.9% injection Administer 5-10 mL into catheter every 12 (twelve) hours 5 mL 04/28/2020 0 sulfamethoxazole-t rimethoprim (BACTRIM DS) 800-160 mg per tablet Take 1 tablet by mouth daily 30 tablet 11 05/09/2020 0 tamsulosin (FLOMAX) 0.4 mg extended release capsule tamsulosin 0.4 mg capsule TAKE 1 CAPSULE BY MOUTH EVERY DAY 05/10/2015 1 traZODone (DESYREL) 150 mg tablet Take 150 mg by mouth nightly 1 documented as of this encounter Ordered Prescriptions Prescription Sig Dispense Quantity Refills Last Filled Start Date End Date aspirin 81 mg enteric coated tablet [The details of the medication are not available because there are pending changes by a home health clinician.] 04/28/2020 1 sulfamethoxazole-t rimethoprim (BACTRIM DS) 800-160 mg per tablet Take 1 tablet by mouth daily 30 tablet 11 05/09/2020 0 vancomycin 750 mg/150 mL IVBPIndications:Ab dominal/Pelvic Infection,infectio n of mesh Infuse 150 mL (750 mg total) into a venous catheter every 12 (twelve) hours for 10 days 3000 mL 04/28/2020 0 sodium chloride 0.9% injection Administer 5-10 mL into catheter every 12 (twelve) hours 5 mL 04/28/2020 0 sodium chloride 0.9% injection Administer 0.5-20 mL into catheter as needed for line care 5 mL 04/28/2020 0 pregabalin (LYRICA) 50 mg capsule Take 1 capsule (50 mg total) by mouth daily 30 capsule 1 04/29/2020 0 oxyCODONE (ROXICODONE) 5 mg immediate release tabletIndications: Pain Take 1 tablet (5 mg total) by mouth every 4 (four) hours as needed for pain 35 tablet 04/28/2020 0 acetaminophen 500 mg capsuleIndications :Pain Take 2 capsules (1,000 mg total) by mouth every 6 (six) hours 30 tablet 04/28/2020 1 documented in this encounter Discharge Disposition Disposition Code Departure Means Destination Discharge to home, home health skilled care documented in this encounter Progress Notes * Xiomy Richards, RN - 04/28/2020 3:31 PM CDT 04/28/20 1154 Discharge Summary Chart reviewed For Medical Necessity Does patient have a planned readmission to hospital planned? No Discharge Disposition Home with IV Services (RN visits) Equipment/Provider Needs Home Provider Services Needs Identified Home Care Agency Information Home Care Agency Type #1: Home Infusion Home Care Agency Name [facility] Home Infusion Home Care Agency Home Care Agency Contact Spoken to Cheryl Peres [facility] Used? Not Needed Discharge Additional Assistance Does the patient need discharge transport arranged? No Post Discharge Care Provider Post Discharge Care Plan Next level of care provider has access to complete EMR Notified that patient is stable and ready for discharge from hospital today. Home needs identified patient is followed by [facility] Home Infusion for IV antibiotic infusion. Patient has family for home support and transportation. Patient has chosen to have discharge meds filled by mobile pharmacy. Followup appointments have been scheduled. Nurse to instruct on d/c orders. No additional d/c needs identified. Patient agrees with this plan. Xiomy Richards RN [phone] * Xiomy Richards RN - 04/28/2020 11:56 AM CDT 04/28/20 1154 Discharge Summary Chart reviewed For Medical Necessity Does patient have a planned readmission to hospital planned? No Discharge Disposition Home with IV Services (RN visits) Equipment/Provider Needs Home Provider Services Needs Identified Home Care Agency Information Home Care Agency Type #1: Home Infusion Home Care Agency Name [facility] Home Infusion Home Care Agency Home Care Agency Contact Spoken to Cheryl Ja [facility] Agency Used? Not Needed Discharge Additional Assistance Does the patient need discharge transport arranged? No Post Discharge Care Provider Post Discharge Care Plan Next level of care provider has access to complete EMR Notified that patient is stable and ready for discharge from hospital today. Patient to receive IV infusion through [facility] Home Infusion Services. Pt is aware meds to be delivered to her room prior to discharge. Patient has family for home support and transportation. Patient has discussed with RN regarding how discharge meds are filled. Follow up appointments have been scheduled. Nurse to instruct on d/c orders. No additional d/c needs identified. Patient agrees with this plan. Xiomy Richards RN [phone] * Libby Don NP - 04/27/2020 2:30 PM CDT Images from the original note were not included. [facility] Acute Care Emergency Surgery (ACES) Daily Progress Note Admit: 04/22/2020 5:04 AM Date: April 27, 2020 Length of Stay: 5 Attending: Ari Yeh MD POD:5 Days Post-Op Procedure(s): ABDOMINAL MESH EXCISION 3.5X8 ABDOMINAL SKIN EXCISION 6X5.5 Subjective History: Madison Weinberg is a 54yoF with 21 prior abdominal surgeries for endometriosis with chronic draining sinus. PMH: DVT, trigeminal neuralgia, anxiety PSH: colon resection, SBR and multiple abdominal surgeries for endometriosis, hysterectomy 04/22 OR Abdominal wall mesh excision 3.5 cm long by 8 cm wide Excision skin subcutaneous tissue adipose tissue ellipse 6 cm x 5.5 cm x 3 cm deep 04/22- Excision of infected sinus tract (? Suture granuloma vs infected mesh) and local mesh excision. Wound packed damp to dry kerlix (to make sure no missed ECF, please take down POD1). Interval History: Tolerating a diet and having BM's. Midline wound with dark drainage on kerlix, tissue pink. Skin to left of wound is tender. No erythema. Remains on IV vancomycin per ID recommendations. Will discharge home tomorrow after IV doses of vancomycin. Pain:controlled Nausea: No Flatus: Yes Bowel Movement: Yes Objective Medications: Current Facility-Administered Medications: ??? acetaminophen (TYLENOL) tablet 1,000 mg, 1,000 mg, oral, Q6H ELIU, Sarah Tinajero MD, 1,000 mg at 04/27/20 1234 ??? clonazePAM (KlonoPIN) tablet 0.5 mg, 0.5 mg, oral, BID, Sarah Tinajero MD, 0.5 mg at 04/27/20 0826 ??? cyclobenzaprine (FLEXERIL) tablet 10 mg, 10 mg, oral, BID, Elizabeth Anderson MD, 10 mg at 04/27/20 0825 ??? dicyclomine (BENTYL) capsule 10 mg, 10 mg, oral, TID, Elizabeth Anderson MD, 10 mg at 04/27/20 0825 ??? docusate sodium (COLACE) capsule 100 mg, 100 mg, oral, BID PRN, Libby Don NP ??? enoxaparin (LOVENOX) syringe 40 mg, 40 mg, subcutaneous, Daily-2100, Libby Don NP, 40 mg at 04/26/20 2140 ??? ondansetron ODT (ZOFRAN-ODT) disintegrating tablet 4 mg, 4 mg, oral, QID PRN, Vinny Mcnair NP, 4 mg at 04/24/202011 ??? oxyCODONE (ROXICODONE) tablet 5 mg, 5 mg, oral, Q3H PRN, Sarah Tinajero MD, 5 mg at 04/27/20 1234 ??? polyethylene glycol (MIRALAX) packet 17 g, 17 g, oral, Daily PRN, Libby Don NP ??? pregabalin (LYRICA) capsule 50 mg, 50 mg, oral, Daily, Libby Don NP ??? rizatriptan COOK PICKLED MEAT (MAXALT-COOK PICKLED MEAT) disintegrating tablet 10 mg, 10 mg, oral, Once PRN, Elizabeth Anderson MD ??? sodium chloride 0.9% flush 0.5-20 mL, 0.5-20 mL, intra-catheter, Q8H ELIU, Elizabeth Anderson MD, 10 mL at 04/27/20 1235 ??? sodium chloride 0.9% flush 0.5-20 mL, 0.5-20 mL, intra-catheter, PRN, Elizabeth Anderson MD ??? sodium chloride 0.9% flush 5-10 mL, 5-10 mL, intra-catheter, Q12H ELIU, Vinny Mcnair NP, 10 mL at 04/27/20 0826 ??? sodium chloride 0.9% flush 5-20 mL, 5-20 mL, intra-catheter, PRN, Vinyn Mcnair NP ??? traZODone (DESYREL) tablet 150 mg, 150 mg, oral, Nightly, Elizabeth Anderson MD, 150 mg at 04/26/20 2140 ??? vancomycin 750 mg/150 mL in dextrose 5% (premix) 750 mg, 750 mg, intravenous, Q12H, Libby Don NP, Last Rate: 150 mL/hr at 04/27/20 0320, 750 mg at 04/27/20 0320 Diet: Dietary Orders (From admission, onward) Start Ordered 04/25/20 1630 Adult Diet Regular Diet effective now Question: ([facility]) Diet type Answer: Regular 04/25/20 1634 Is&Os: I/O last 2 completed shifts: In: 20 [I.V.:20] Out: 600 [Urine:600] I/O this shift: In: - Out: 500 [Urine:500] Physical Exam: 24hr Min/Max: Temp Min: 36.5 ??C (97.7 ??F) Max: 37 ??C (98.6 ??F) Pulse Min: 90 Max: 111 BP Min: 103/66 Max: 138/74 Resp Min: 18 Max: 20 SpO2 Min: 97 % Max: 100 % Vitals: 04/27/20 1124 BP: 103/66 Pulse: 93 Resp: 20 Temp: 37 ??C (98.6 ??F) SpO2: 99% Constitutional: alert and oriented x3 and no acute distress HEENT: Pupils equal, EOMs grossly normal, mucous membranes moist Respiratory: clear to auscultation bilaterally and respirations unlabored Abdomen: soft, non-distended, tender near left side of open wound. Skin: warm, well perfused and extremities non-edematous Wound: Tissue pink/clean. No erythema around wound. Active and Removed Drain / Gastrostomy/Enterostomy / Chest tube [REMOVED] Urethral Catheter Temperature probe 16 Fr. less than 1 day Labs/Imaging: Recent Labs Lab Units 04/26/20224104/26/20 1251 04/26/20 0008 WBC K/cumm 7.7 7.2 7.3 HEMOGLOBIN g/dL 9.4* 9.2* 9.1* HEMATOCRIT % 29.0* 28.8* 27.8* PLATELETS K/cumm 280 289 266 Recent Labs Lab Units 04/26/202 04/26/20 0008 04/25/20 0615 SODIUM mmol/L 139 138 140 POTASSIUM PLASMA mmol/L 3.3 4.0 3.7 CHLORIDE mmol/L 107 104 102 CO2 mmol/L 25 27 27 BUN SERUM mg/dL 6* 7* 4* CREATININE mg/dL 0.72 0.88 0.69 GLUCOSE mg/dL 106 106 105 CALCIUM mg/dL 8.9 8.6 9.8 Recent Labs Lab Units 04/26/202241 PROTIME (PT) sec 13.4* INR 1.2 No results found. Assessment/Plan History of DVT (deep vein thrombosis) Assessment & Plan - holding xarelto in post-operative period, will monitor for bowel leak and consider resuming 04/25 - heparin gtt started 04/23 - 04/24 holding heparin in setting of elevated PTT and ongoing wound bleeding - 04/25 resume heparin gtt post dressing change - 04/26 per patient PCP, d/c hep and start ASA 81mg once every other day. DVT was >1yr ago (11/2018) and pt doesn't have any other hypercoagulable states Abdominal pain Assessment & Plan Scheduled Tylenol, PRN oxycodone changed from q4h to q3h Home flexeril, allergy to gabapentin 04/27 Will give Lyrica 50 mg daily. Allergy to gabapentin is unclear, mental status changes. Will monitor. 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 CBC, Basic metabolic panel, and.Liver function test once weekly. Vancomycin trough levels twice weekly Libby Don Cosigned by Ari Yeh MD at 05/04/2020 11:26 AM CDT Associated attestation - Ari Yeh MD - 05/04/2020 11:26 AM CDT I have seen and examined the patient on April 27 2020 in conjunction with the non-physician provider. History: Mesh excision with MRSA Physical Exam: Open wound with dressing changes with no evidence of enterocutaneous fistula Lab/Radiology/Diagnostics Review: Culture and sensitivity as in EMR for MRSA Assessment/Plan Infectious disease consult for outpatient therapy, recommend suppressive therapy after initial course of vancomycin Follow-up as an outpatient with daily dressing changes Pain improved in setting of chronic pain * Abu-Amer, Wahid Y., MD - 04/26/2020 10:15 AM CDT Images from the original note were not included. [facility] Acute Care Emergency Surgery (ACES) Daily Progress Note Admit: 04/22/2020 5:04 AM Date: April 26, 2020 Length of Stay: 4 Attending: Ari Yeh MD POD:3 Days Post-Op Procedure(s): ABDOMINAL MESH EXCISION 3.5X8 ABDOMINAL SKIN EXCISION 6X5.5 Subjective History: Madison Weinberg is a 54yoF with 21 prior abdominal surgeries for endometriosis with chronic draining sinus. PMH: DVT, trigeminal neuralgia, anxiety PSH: colon resection, SBR and multiple abdominal surgeries for endometriosis, hysterectomy 04/22- Excision of infected sinus tract (? Suture granuloma vs infected mesh) and local mesh excision. Wound packed damp to dry kerlix (to make sure no missed ECF, please take down POD1). Interval History: AWA SINGH. Obtaining doppler today for B/L peripheral edema. Appreciate ID rec, IV vanc for 2 weeks then bactrim for at least 1 year. Biweekly vanc trough and weekly LFTs, CBC, and BMP. PICC line already in place. Awaiting and setup to d/c, likely tomorrow (04/27). Spoke with PCP, he agrees that she does not need to be on xarelto or hep gtt because its been over a year since her DVT, will start her on ASA 81mg once every other day. Pain:controlled Nausea: No Flatus: No Bowel Movement: No Objective Medications: Current Facility-Administered Medications: ??? acetaminophen (TYLENOL) tablet 1,000 mg, 1,000 mg, oral, Q6H [facility], Sarah Tinajero MD, 1,000 mg at 04/26/20 0648 ??? clonazePAM (KlonoPIN) tablet 0.5 mg, 0.5 mg, oral, BID, Sarah Tinajero MD, 0.5 mg at 04/26/20 0800 ??? cyclobenzaprine (FLEXERIL) tablet 10 mg, 10 mg, oral, BID, Elizabeth Anderson MD, 10 mg at 04/26/20 0800 ??? dicyclomine (BENTYL) capsule 10 mg, 10 mg, oral, TID, Elizabeth Anderson MD, 10 mg at 04/26/20 0800 ??? docusate sodium (COLACE) capsule 100 mg, 100 mg, oral, Daily with lunch, Elizabeth Anderson MD,100 mg at 04/25/20 1225 ??? lidocaine PF (XYLOCAINE) 10 mg/mL (1 %) preservative free injection 10-20 mg, 1-2 mL, subcutaneous, Once, Vinny Mcnair NP ??? ondansetron ODT (ZOFRAN-ODT) disintegrating tablet 4 mg, 4 mg, oral, QID PRN, Vinny Mcnair NP, 4 mg at 04/24/202011 ??? oxyCODONE (ROXICODONE) tablet 5 mg, 5 mg, oral, Q3H PRN, Sarah Tinajero MD, 5 mg at 04/26/20 0648 ??? polyethylene glycol (MIRALAX) packet 17 g, 17 g, oral, Daily with lunch, Elizabeth Anderson MD,17 g at 04/25/20 1226 ??? rizatriptan COOK PICKLED MEAT (MAXALT-COOK PICKLED MEAT) disintegrating tablet 10 mg, 10 mg, oral, Once PRN, Elizabeth Anderson MD ??? sodium chloride 0.9% flush 0.5-20 mL, 0.5-20 mL, intra-catheter, Q8H ELIU, Elizabeth Anderson MD, 10 mL at 04/26/20 0648 ??? sodium chloride 0.9% flush 0.5-20 mL, 0.5-20 mL, intra-catheter, PRN, Elizabeth Anderson MD ??? sodium chloride 0.9% flush 5-10 mL, 5-10 mL, intra-catheter, Q12H ELIU, Vinny Mcnair NP, 10 mL at 04/26/20 0801 ??? sodium chloride 0.9% flush 5-20 mL, 5-20 mL, intra-catheter, PRN, Vinny Govind Anastas, RISK CONTROL REPRESENTATIVE ??? traZODone (DESYREL) tablet 150 mg, 150 mg, oral, Nightly, Elizabeth Anderson MD, 150 mg at 04/25/202050 ??? vancomycin 1,000 mg/200 mL in dextrose 5% (premix) 1,000 mg, 1,000 mg, intravenous, Q12H, Catherine Sharma NP Diet: Dietary Orders (From admission, onward) Start Ordered 04/25/20 1630 Adult Diet Regular Diet effective now Question: ([facility]) Diet type Answer: Regular 04/25/20 1634 Is&Os: No intake/output data recorded. No intake/output data recorded. Physical Exam: 24hr Min/Max: Temp Min: 36.6 ??C (97.9 ??F) Max: 36.9 ??C (98.4 ??F) Pulse Min: 90 Max: 110 BP Min: 105/64 Max: 128/70 Resp Min: 16 Max: 18 SpO2 Min: 98 % Max: 100 % Vitals: 04/26/20 0723 BP: 112/86 Pulse: 96 Resp: 18 Temp: SpO2: 100% Constitutional: alert and oriented x3 and no acute distress HEENT: Pupils equal, EOMs grossly normal, mucous membranes moist Respiratory: respirations unlabored Abdomen: soft, non-distended, non tender Skin: warm, well perfused and extremities non-edematous Wound: No sign of bleeding on AM dressing Active and Removed Drain / Gastrostomy/Enterostomy / Chest tube [REMOVED] Urethral Catheter Temperature probe 16 Fr. less than 1 day Labs/Imaging: Recent Labs Lab Units 04/26/20 0008 04/25/2015 04/23/20 1839 WBC K/cumm 7.3 8.7 9.6 HEMOGLOBIN g/dL 9.1* 12.0 10.4* HEMATOCRIT % 27.8* 37.0 32.8* PLATELETS K/cumm 266 320 300 Recent Labs Lab Units 04/26/20 0008 04/25/20 0604/23/20 1839 SODIUM mmol/L 138 140 138 POTASSIUM PLASMA mmol/L 4.0 3.7 3.7 CHLORIDE mmol/L 104 102 105 CO2 mmol/L 27 27 24 BUN SERUM mg/dL 7* 4* 11 CREATININE mg/dL 0.88 0.69 0.73 GLUCOSE mg/dL 106 105 105 CALCIUM mg/dL 8.6 9.8 8.8 Recent Labs Lab Units 04/26/20 0008 PROTIME (PT) sec 14.0* INR 1.3* No results found. Assessment/Plan History of DVT (deep vein thrombosis) Assessment & Plan - holding xarelto in post-operative period, will monitor for bowel leak and consider resuming 04/25 - heparin gtt started 04/23 - 04/24 holding heparin in setting of elevated PTT and ongoing wound bleeding - 04/25 resume heparin gtt post dressing change - 04/26 per patient PCP, d/c hep and start ASA 81mg once every other day. 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 CBC, Basic metabolic panel, and.Liver function test once weekly. Vancomycin trough levels twice weekly Sandra Hutchins MD General Surgery, PGY-1 04/26/2020 Cosigned by Ari Yeh MD at 05/02/2020 5:00 PM CDT Associated attestation - Ari Yeh MD - 05/02/2020 5:00 PM CDT I have seen and examined the patient on April 26 2020. I agree with the findings and plan of care as documented in the resident's/fellow's note.. * Jany Darden RN - 04/25/2020 8:43 AM CDT Interview done at bedside at 0845 04/25/20 0837 Information Information Obtained From Patient Referral Data Referral Source Self referral Referral Reason Discharge Planning Prior to Admission Primary Caregiver Self Support System Spouse/Significant Other Support system contact info (name, phone, availablity) lives with Peña Weinberg [phone] Home Care Services Yes Home care service name and phone number Had Home Care in the past when she lived in another state Durable Medical Equipment None Living Arrangements Spouse/significant other Type of Residence Private residence Steps in home? 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 S/p surgical intervention Case management services will continue to follow for any d/c needs. Please call me at [phone] further inquiries. Through the course of our work I determined that family possesses the skill and ability to provide and monitor the care of the patient when he or she returns home. Family has the capacity to provide/monitor/arrange for the care of the patient. Finally, we determined that family has the knowledge ofavailable resources and that combining them with their existing resources will suffice to sustain and care for the patient when he or she returns home. The treatment team is aware of this information. All are in agreement with the aftercare plan * Vinny Mcnair NP - 04/25/2020 7:45 AM CDT Images from the original note were not included. [facility] Acute Care Emergency Surgery (ACES) Daily Progress Note Admit: 04/22/2020 5:04 AM Date: April 25, 2020 Length of Stay: 3 Attending: Ari Yeh MD POD:3 Days Post-Op Procedure(s): ABDOMINAL MESH EXCISION 3.5X8 ABDOMINAL SKIN EXCISION 6X5.5 Subjective History: Madison Weinberg is a 54yoF with 21 prior abdominal surgeries for endometriosis with chronic draining sinus. PMH: DVT, trigeminal neuralgia, anxiety PSH: colon resection, SBR and multiple abdominal surgeries for endometriosis, hysterectomy 04/22- Excision of infected sinus tract (? Suture granuloma vs infected mesh) and local mesh excision. Wound packed damp to dry kerlix (to make sure no missed ECF, please take down POD1). Interval History: ID consulted for MRSA OR cx, dressing change this AM then resume heparin gtt, monitor for bleeding, pain control Pain:controlled Nausea: No Flatus: No Bowel Movement: No Objective Medications: Current Facility-Administered Medications: ??? acetaminophen (TYLENOL) tablet 1,000 mg, 1,000 mg, oral, Q6H [facility], Sarah Tinajero MD, 1,000 mg at 04/25/20 0536 ??? ceFAZolin (ANCEF) 1 gram/10 mL in sterile water (premix) 1,000 mg, 1,000 mg, intravenous, Q8H [facility], Vinny Mcnair NP, Stopped at 04/25/20 0754 ??? clonazePAM (KlonoPIN) tablet 0.5 mg, 0.5 mg, oral, BID, Sarah Tinajero MD, 0.5 mg at 04/25/20918 ??? cyclobenzaprine (FLEXERIL) tablet 10 mg, 10 mg, oral, BID, Elizabeth Anderson MD, 10 mg at 04/25/20918 ??? dicyclomine (BENTYL) capsule 10 mg, 10 mg, oral, TID, Elizabeth Anderson MD, 10 mg at 04/25/20918 ??? docusate sodium (COLACE) capsule 100 mg, 100 mg, oral, Daily with lunch, Elizabeth Anderson MD,100 mg at 04/24/20 1116 ??? [Held by Provider] heparin in 0.45% sodium chloride 25,000 units/250 mL (100 units/mL) infusion(premix), 1-33 Units/kg/hr, intravenous, Titrated, Vinny Mcnair NP, Stopped at 04/24/20 1211 ??? HYDROmorphone (DILAUDID) injection 0.2 mg, 0.2 mg, intravenous, Q4H PRN, Sarah Tinajero MD,0.2 mg at 04/24/202018 ??? ondansetron ODT (ZOFRAN-ODT) disintegrating tablet 4 mg, 4 mg, oral, QID PRN, Vinny Mcnair NP, 4 mg at 04/24/202011 ??? oxyCODONE (ROXICODONE) tablet 5 mg, 5 mg, oral, Q3H PRN, Sarah Tinajero MD, 5 mg at 04/25/20 0919 ??? polyethylene glycol (MIRALAX) packet 17 g, 17 g, oral, Daily with lunch, Elizabeth Anderson MD,17 g at 04/24/20 1116 ??? rizatriptan COOK PICKLED MEAT (MAXALT-COOK PICKLED MEAT) disintegrating tablet 10 mg, 10 mg, oral, Once PRN, Elizabeth Anderson MD ??? sodium chloride 0.9% flush 0.5-20 mL, 0.5-20 mL, intra-catheter, Q8H ELIU, Elizabeth Anderson MD, 10 mL at 04/25/20 0537 ??? sodium chloride 0.9% flush 0.5-20 mL, 0.5-20 mL, intra-catheter, PRN, Elizabeth Anderson MD ??? traZODone (DESYREL) tablet 150 mg, 150 mg, oral, Nightly, Elizabeth Anderson MD, 150 mg at 04/24/202011 ??? vancomycin 750 mg/150 mL in dextrose 5% (premix) 750 mg, 750 mg, intravenous, Q12H, Sarah Zhang MD, Last Rate: 150 mL/hr at 04/25/20 0021, 750 mg at 04/25/20 0021 Diet: Dietary Orders (From admission, onward) Start Ordered 04/24/20 1120 Adult Diet Full Liquid Diet effective now Question: ([facility]) Diet type Answer: Full Liquid 04/24/20 1119 Is&Os: I/O last 2 completed shifts: In: 150 [IV Piggyback:150] Out: 1000 [Urine:1000] No intake/output data recorded. Physical Exam: 24hr Min/Max: Temp Min: 36.3 ??C (97.3 ??F) Max: 36.7 ??C (98.1 ??F) Pulse Min: 79 Max: 88 BP Min: 106/61 Max: 154/75 Resp Min: 18 Max: 20 SpO2 Min: 98 % Max: 100 % Vitals: 04/25/20 0740 BP: 110/65 Pulse: 88 Resp: 18 Temp: 36.7 ??C (98.1 ??F) SpO2: 99% Constitutional: alert and oriented x3 and no acute distress HEENT: Pupils equal, EOMs grossly normal, mucous membranes moist Respiratory: respirations unlabored Abdomen: soft, non-distended, non tender Skin: warm, well perfused and extremities non-edematous Wound: No sign of bleeding on AM dressing Active and Removed Drain / Gastrostomy/Enterostomy / Chest tube [REMOVED] Urethral Catheter Temperature probe 16 Fr. less than 1 day Labs/Imaging: Recent Labs Lab Units 04/25/2061404/23/20183804/23/20 0424 WBC K/cumm 8.7 9.6 10.1* HEMOGLOBIN g/dL 12.0 10.4* 11.5* HEMATOCRIT % 37.0 32.8* 36.2 PLATELETS K/cumm 320 300 286 Recent Labs Lab Units 04/25/2061404/23/20183804/23/20 0424 SODIUM mmol/L 140 138 136 POTASSIUM PLASMA mmol/L 3.7 3.7 5.1* CHLORIDE mmol/L 102 105 102 CO2 mmol/L 27 24 24 BUN SERUM mg/dL 4* 11 11 CREATININE mg/dL 0.69 0.73 0.73 GLUCOSE mg/dL 105 105 100 CALCIUM mg/dL 9.8 8.8 9.3 Recent Labs Lab Units 04/25/20 0615 PROTIME (PT) sec 11.3 INR 1.0 No results found. 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 History: Anticoagulation for DVT pulmonary embolism more than 1 year ago Physical Exam: Wound packed, hemostatic agents applied for granulation tissue bleeding Lab/Radiology/Diagnostics Review: Supratherapeutic PTT Assessment/Plan Based on duplex and the length of time for hypercoagulable state since the start of anticoagulation, there is no further need for therapeutic anticoagulation and will be discontinued. Prophylactic anticoagulation to continue * Sarah Tinajero MD - 04/24/2020 2:12 PM CDT [facility] Emergency Surgery ([facility]) Daily Progress Note Admit: 04/22/2020 5:04 AM Date: April 24, 2020 Length of Stay: 2 Attending: Ari Yeh MD POD:1 Day Post-Op Procedure(s): ABDOMINAL MESH EXCISION 3.5X8 ABDOMINAL SKIN EXCISION 6X5.5 Subjective History: Madison Weinberg is a 54yoF with 21 prior abdominal surgeries for endometriosis with chronic draining sinus. PMH: DVT, trigeminal neuralgia, anxiety PSH: colon resection, SBR and multiple abdominal surgeries for endometriosis, hysterectomy 04/22- Excision of infected sinus tract (? Suture granuloma vs infected mesh) and local mesh excision. Wound packed damp to dry kerlix Edited by: Sarah Tinajero MD at 04/23/2020 1219 Interval History: Bleeding with dressing change this AM. Required multiple dressing changes with silver nitrate to small slow bleed in left lower area of wound. PTT 138 so holding heparin overnight in setting of bleeding and high PTT. Pain:uncontrolled Nausea: Yes Flatus: Yes Bowel Movement: No Objective Medications: Current Facility-Administered Medications: ??? acetaminophen (TYLENOL) tablet 1,000 mg, 1,000 mg, oral, Q6H [facility], Sarah Tinajero MD, 1,000 mg at 04/24/20 1116 ??? ceFAZolin (ANCEF) 1 gram/10 mL in sterile water (premix) 1,000 mg, 1,000 mg, intravenous, Q8H [facility], Vinny Mcnair NP, Last Rate: 200 mL/hr at 04/24/20 1346, 1,000 mg at 04/24/20 1346 ??? clonazePAM (KlonoPIN) tablet 0.5 mg, 0.5 mg, oral, BID, Sarah Tinajero MD, 0.5 mg at 04/24/20 0833 ??? cyclobenzaprine (FLEXERIL) tablet 10 mg, 10 mg, oral, BID, Elizabeth Anderson MD, 10 mg at 04/24/20 08 ??? dicyclomine (BENTYL) capsule 10 mg, 10 mg, oral, TID, Elizabeth Anderson MD, 10 mg at 04/24/20 0833 ??? docusate sodium (COLACE) capsule 100 mg, 100 mg, oral, Daily with lunch, Elizabeth Anderson MD,100 mg at 04/24/20 1116 ??? [Held by Provider] heparin in 0.45% sodium chloride 25,000 units/250 mL (100 units/mL) infusion(premix), 1-33 Units/kg/hr, intravenous, Titrated, Vinny Mcnair NP, Stopped at 04/24/20 1211 ??? ondansetron ODT (ZOFRAN-ODT) disintegrating tablet 4 mg, 4 mg, oral, QID PRN, Vinny Mcnair NP, 4 mg at 04/24/20 1419 ??? oxyCODONE (ROXICODONE) tablet 5 mg, 5 mg, oral, Q3H PRN, Sarah Tinajero MD, 5 mg at 04/24/20 0948 ??? polyethylene glycol (MIRALAX) packet 17 g, 17 g, oral, Daily with lunch, Elizabeth Anderson MD,17 g at 04/24/20 1116 ??? rizatriptan COOK PICKLED MEAT (MAXALT-COOK PICKLED MEAT) disintegrating tablet 10 mg, 10 mg, oral, Once PRN, Elizabeth Anderson MD ??? sodium chloride 0.9% flush 0.5-20 mL, 0.5-20 mL, intra-catheter, Q8H [facility], Elizabeth Anderosn MD, 10 mL at 04/24/20 1346 ??? sodium chloride 0.9% flush 0.5-20 mL, 0.5-20 mL, intra-catheter, PRN, Elizabeth Anderson MD ??? traZODone (DESYREL) tablet 150 mg, 150 mg, oral, Nightly, Elizabeth Anderson MD, 150 mg at 04/23/20 2104 ??? vancomycin 750 mg/150 mL in dextrose 5% (premix) 750 mg, 750 mg, intravenous, Q12H, Sarah Zhang MD, Last Rate: 150 mL/hr at 04/24/20 1346, 750 mg at 04/24/20 1346 Diet: Dietary Orders (From admission, onward) Start Ordered 04/24/20 1120 Adult Diet Full Liquid Diet effective now Question: ([facility]) Diet type Answer: Full Liquid 04/24/20 1119 Is&Os: I/O last 2 completed shifts: In: 10 [IV Piggyback:10] Out: 400 [Urine:400] I/O this shift: In: 150 [IV Piggyback:150] Out: 500 [Urine:500] Physical Exam: 24hr Min/Max: Temp Min: 36.3 ??C (97.3 ??F) Max: 36.7 ??C (98.1 ??F) Pulse Min: 61 Max: 86 BP Min: 94/59 Max: 132/55 Resp Min: 14 Max: 20 SpO2 Min: 96 % Max: 100 % Vitals: 04/24/20 1120 BP: 106/61 Pulse: 86 Resp: 20 Temp: 36.6 ??C (97.9 ??F) SpO2: 100% Constitutional: alert and oriented x3 and no acute distress HEENT: Pupils equal, EOMs grossly normal, mucous membranes moist Cardiac: regular rate and rhythm Respiratory: clear to auscultation bilaterally and respirations unlabored Abdomen: soft, non-distended, tender to touch with wound as described below Skin: warm, well perfused and extremities non-edematous Wound: periumblical open excision, packed with gauze. Drainage is serosanguinous. Active and Removed Drain / Gastrostomy/Enterostomy / Chest tube [REMOVED] Urethral Catheter Temperature probe 16 Fr. less than 1 day Labs/Imaging: Recent Labs Lab Units 04/23/20183804/23/2042304/19/20 1709 WBC K/cumm 9.6 10.1* 7.9 HEMOGLOBIN g/dL 10.4* 11.5* 12.8 HEMATOCRIT % 32.8* 36.2 40.4 PLATELETS K/cumm 300 286 375 Recent Labs Lab Units 04/23/20183804/23/20 0424 04/19/20 1709 SODIUM mmol/L 138 136 141 POTASSIUM PLASMA mmol/L 3.7 5.1* 5.1* CHLORIDE mmol/L 105 102 98 CO2 mmol/L 24 24 34* BUN SERUM mg/dL 11 11 7* CREATININE mg/dL 0.73 0.73 0.87 GLUCOSE mg/dL 105 100 96 CALCIUM mg/dL 8.8 9.3 10.1 Recent Labs Lab Units 04/23/20 183 PROTIME (PT) sec 12.1 INR 1.1 No results found. 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 I agree with the findings and plan of care as documented in the resident's/fellow's note.. * Sarah Tinajero MD - 04/23/2020 12:19 PM CDT [facility] Acute [facility] Surgery ([facility]) Daily Progress Note Admit: 04/22/2020 5:04 AM Date: April 23, 2020 Length of Stay: 1 Attending: Ari Yeh MD POD:1 Day Post-Op Procedure(s): ABDOMINAL MESH EXCISION 3.5X8 ABDOMINAL SKIN EXCISION 6X5.5 Subjective History: Madison Weinberg is a 54yoF with 21 prior abdominal surgeries for endometriosis with chronic draining sinus. PMH: DVT, trigeminal neuralgia, anxiety PSH: colon resection, SBR and multiple abdominal surgeries for endometriosis, hysterectomy 04/22- Excision of infected sinus tract (? Suture granuloma vs infected mesh) and local mesh excision. Wound packed damp to dry kerlix (to make sure no missed ECF, please take down POD1). Edited by: Sarah Tinajero MD at 04/23/2020 1219 Interval History: No acute events overnight. Complains of significant incisional abdominal pain. Requests home zofran for nausea. Drainage on packing is serosanguinous. Pain:uncontrolled Nausea: Yes Flatus: Yes Bowel Movement: No Objective Medications: Current Facility-Administered Medications: ??? acetaminophen (TYLENOL) tablet 1,000 mg, 1,000 mg, oral, Q6H [facility], Sarah Tinajero MD, 1,000 mg at 04/23/20 1220 ??? ceFAZolin (ANCEF) 1 gram/10 mL in sterile water (premix) 1,000 mg, 1,000 mg, intravenous, Q8H [facility], Vinny Mcnair NP, Last Rate: 200 mL/hr at 04/23/20 1314, 1,000 mg at 04/23/20 1314 ??? clonazePAM (KlonoPIN) tablet 0.5 mg, 0.5 mg, oral, BID, Sarah Tinajero MD, 0.5 mg at 04/23/20 1314 ??? cyclobenzaprine (FLEXERIL) tablet 10 mg, 10 mg, oral, BID, Elizabeth Anderson MD, 10 mg at 04/23/20 0852 ??? dicyclomine (BENTYL) capsule 10 mg, 10 mg, oral, TID, Elizabeth Anderson MD, 10 mg at 04/23/20 0852 ??? docusate sodium (COLACE) capsule 100 mg, 100 mg, oral, Daily with lunch, Elizabeth Anderson MD,100 mg at 04/23/20 1220 ??? heparin in 0.45% sodium chloride 25,000 units/250 mL (100 units/mL) infusion (premix), 1-33 Units/kg/hr, intravenous, Titrated, Vinny Mcnair NP ??? ondansetron ODT (ZOFRAN-ODT) disintegrating tablet 4 mg, 4 mg, oral, QID PRN, Vinny Mcnair NP ??? oxyCODONE (ROXICODONE) tablet 5 mg, 5 mg, oral, Q3H PRN, Sarah Tinajero MD, 5 mg at 04/23/20 1220 ??? polyethylene glycol (MIRALAX) packet 17 g, 17 g, oral, Daily with lunch, Elizabeth Anderson MD,17 g at 04/23/20 1220 ??? rizatriptan COOK PICKLED MEAT (MAXALT-COOK PICKLED MEAT) disintegrating tablet 10 mg, 10 mg, oral, Once PRN, Elizabeth Anderson MD ??? sodium chloride 0.9% flush 0.5-20 mL, 0.5-20 mL, intra-catheter, Q8H ELIU, Elizabeth Anderson MD, 10 mL at 04/23/20 1315 ??? sodium chloride 0.9% flush 0.5-20 mL, 0.5-20 mL, intra-catheter, PRN, Elizabeth Anderson MD ??? traZODone (DESYREL) tablet 150 mg, 150 mg, oral, Nightly, Elizabeth Anderson MD, 150 mg at 04/22/202030 Diet: Dietary Orders (From admission, onward) Start Ordered 04/22/20 1624 Adult Diet Clear Liquid Diet effective now Question: ([facility]) Diet type Answer: Clear Liquid 04/22/20 1623 Is&Os: I/O last 2 completed shifts: In: 900 [I.V.:900] Out: 300 [Urine:300] I/O this shift: In: 10 [IV Piggyback:10] Out: - Physical Exam: 24hr Min/Max: Temp Min: 36 ??C (96.8 ??F) Max: 36.9 ??C (98.4 ??F) Pulse Min: 64 Max: 89 BP Min: 105/61 Max: 155/95 Resp Min: 11 Max: 23 SpO2 Min: 94 % Max: 100 % Vitals: 04/23/20 0850 BP: 134/82 Pulse: 89 Resp: 18 Temp: 36.5 ??C (97.7 ??F) SpO2: 100% Constitutional: alert and oriented x3 and no acute distress HEENT: Pupils equal, EOMs grossly normal, mucous membranes moist Cardiac: regular rate and rhythm Respiratory: clear to auscultation bilaterally and respirations unlabored Abdomen: soft, non-distended, tender to touch with wound as described below Skin: warm, well perfused and extremities non-edematous Wound: periumblical open excision, packed with gauze. Drainage is serosanguinous. Active and Removed Drain / Gastrostomy/Enterostomy / Chest tube [REMOVED] Urethral Catheter Temperature probe 16 Fr. less than 1 day Labs/Imaging: Recent Labs Lab Units 04/23/20 0424 04/19/20 1709 WBC K/cumm 10.1* 7.9 HEMOGLOBIN g/dL 11.5* 12.8 HEMATOCRIT % 36.2 40.4 PLATELETS K/cumm 286 375 Recent Labs Lab Units 04/23/20 0424 04/19/20 1709 SODIUM mmol/L 136 141 POTASSIUM PLASMA mmol/L 5.1* 5.1* CHLORIDE mmol/L 102 98 CO2 mmol/L 24 34* BUN SERUM mg/dL 11 7* CREATININE mg/dL 0.73 0.87 GLUCOSE mg/dL 100 96 CALCIUM mg/dL 9.3 10.1 No results found. 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 I agree with the findings and plan of care as documented in the resident's/fellow's note.. * Mehdi Costa MD - 04/22/2020 7:09 PM CDT [facility] Post Op Check Note Madison Weinberg 1965 [id number] Pt returns from the OR 04/22/2020 s/p ABDOMINAL MESH EXCISION 3.5X8 ABDOMINAL SKIN EXCISION 6X5.5 Dione Yeh MD for Pre-op Diagnosis * Abdominal pain [R10.9] Pain:controlled Nausea: No Urine output adequate: No Diet: Dietary Orders (From admission, onward) Start Ordered 04/22/20 1624 Adult Diet Clear Liquid Diet effective now Question: ([facility]) Diet type Answer: Clear Liquid 04/22/20 1623 Physical Exam: Vitals: 04/22/20 1850 BP: 127/82 Pulse: 76 Resp: 14 Temp: 36.8 ??C (98.2 ??F) SpO2: 100% Constitutional: alert and oriented x3 and no acute distress Incision/Dressing is clean, dry, intact Assessment and Plan Doing well. Continue current management. Monitor for spontaneous void. Optimize pain regimen. documented in this encounter H&P Notes * Madonna Malagon MD - 04/22/2020 5:55 AM CDT I have reviewed the H&P, examined the patient, and endorse the findings as written. Plan of Care : Based on the above findings, I consider Madison Weinberg to be an acceptable risk for : Procedure(s): ## WOUND EXPLORATION AND MESH EXCISION POSSIBLE ABDOMINAL EXPLORATION/BOWEL RESECTION Cosigned by Ari Yeh MD at 04/22/2020 7:25 AM CDT Associated attestation - Ari Yeh MD - 04/22/2020 7:25 AM CDT I have seen and examined the patient on the day of surgery. We have extensively discussed this patient in the office along with her . The plan today is to explore the chronic draining wound and try to excise the extraperitoneal abovefascia mesh as much as possible. If this tracks into the peritoneal cavity, intraoperative decisionwill be made whether to proceed with exploration. The patient and her understand the patient's chronic abdominal pain will not be addressed by this mesh. There is no underlying hernia defect. There is no evidence of a bowel obstruction. The pain is chronic in nature and will persist and was not be addressed by the operative procedure today Source Note - Izabela Velasquez NP - 04/19/2020 5:02 PM CDT Images from the original note were not included. [facility] Planning Preoperative Evaluation Record Evaluation type/location: [facility] Planned procedure site: [facility] (Pod[facility] 2/3/5/[facility]) Date: 04/19/20 Anesthesia Evaluation Madison Weinberg is a 54 y.o. female Procedure(s): ## WOUND EXPLORATION AND MESH EXCISION (NOT A PROCEDURE CHOICE) POSSIBLE ABDOMINAL EXPLORATION/BOWEL RESECTION RESECTION SMALL BOWEL Pre-Op Diagnosis Codes: * Abdominal pain [R10.9] HISTORY HPI Madison Weinberg is a 54 y.o. female who is being evaluated prior to undergoing WOUND EXPLORATIONAND MESH EXCISION (NOT A PROCEDURE CHOICE) POSSIBLE ABDOMINAL EXPLORATION/BOWEL RESECTION. 54 y.o. female w/ PMH of endometriosis of the colon status post multiple abdominal surgeries, colonresections, SBO, hernia repair complicated by chronic mesh infection (she reports) and chronic abdominal wound who presents with chief complaint of acute on chronic abdominal pain. Pain is diffuse, constant, 10/10, associated with vomiting; nonbloody, nonbilious; chronic vomiting spells along with episodes breakthrough pain. Past Medical History Information obtained from: patient and chart. Neurological + Neuromuscular disease (trigeminal neuralgia) Pertinent negatives: seizures; CVA/stroke; TIA; CEA; ICA stenosis; dementia/mild cognitive impairment and carotid artery stent Cardiovascular + DVT/PE (s/p ex-lap/hospitalization; tx xarelto) Number of DVT/PE episodes: 1. Last VTE date: 11/2018. Pertinent negatives: hypertension ; CAD ; VA ; CABG ; valvular heart disease; valve replacement; atrial fibrillation; arrhythmia; pacemaker/ICD; PVD; negative for CHF; drug-eluting stent(s); bare metal stent(s) and coronary angioplasty Respiratory Pertinent negatives: non-smoker Respiratory system: negative Hepatic / Heme + History of anemia - iron deficiency Pertinent negatives: liver disease; history of thrombocytopenia and history of Andreina positive Gastrointestinal + GERD Pertinent negatives: hiatal hernia Renal / + Nephrolithiasis (current - non obstructing) Pertinent negatives: renal disease and dialysis Musculoskeletal/Pain Pertinent negatives: chronic pain; chronic opioid use and previous treatment for opioid use disorder Endocrine / Other + Infectious disease - MRSA. Pertinent negatives: diabetes mellitus; thyroid disease; obesity (BMI >30); cancer history; rheumatological disease and transplanted organ Functional Capacity Functional capacity: 4-6 METs Comments: Can walk 2 blocks, climb 2 flights of stairs w/o CP or SOB. Day of Surgery assessments + Possibility of assessed - ruled out by patient's provided history. Review of Systems + previous transfusion (~11/2018 ex-lap, denies rxn) + vision loss (glasses) + nausea/vomiting + dentures/partials (upper/lower) + abdominal pain (surgical etiology) Pertinent negatives: productive cough; wheezing; SOB; recent cold/flu; fever; chest pain; palpitations; orthopnea; pedal edema; PND; heavy menses; Sickle Cell disease/trait; transfusion reaction; melena/hematochezia; easy bruising; bleeding problems; syncope; dizziness; muscle weakness; chronic pain; numbness/tingling; hard of hearing; heartburn; dysphagia; diarrhea; chipped/loose teeth; diaphoresis and no unexpected weight change PAT Summary and Plans Cardiac risk classification of planned procedure: intermediate cardiac risk. Preoperative assessment status: lab tests ordered. Additional comments: Madison Weinberg is a 54 y.o. female who is being evaluated prior to undergoing an intermediate cardiac risk surgery. Revised Cardiac Risk Index factors are (none) for a total RCRI of 0 out of 6. Functional capacity is 4-6 METs. Obstructive sleep apnea (SHEILA) screening status is STOP-Bang=1 suggesting low risk for SHEILA. Blood bank needs for day of procedure: Type and Screen only Pending labs/tests include: CBC BMP T&S Patient with No known exposure to COVID19 and no concerning symptoms of COVID19. Plan for pre-procedure COVID19 testing: Surgery date within 4 days. Pre- procedure COVID19 testing performed at [facility]. Result pending. The patient is on oral anticoagulation therapy with rivaroxaban (XARELTO) and is scheduled for a procedure with a planned/possible nerve block and/or is at low or intermediate risk for perioperative thrombosis. Estimated creatinine clearance is 76.1 ml/min. We recommend holding all doses of this anticoagulant for 3 days (72 hours) prior to the procedure. Therapeutic anticoagulation should be resumed post-operatively when the bleeding risk is acceptable. Alternative anticoagulation therapies canbe used in the interim if acceptable. The patient reports that such a plan is already in place, last dose was 04/16/2020. Please call the CPAP attending [phone]) to revisit risk assessment, with any q uestions, or to discuss alternative management plans.?? Preoperative evaluation performed by Violet Patricia NP on 04/19/20 at 5:03 PM. . Follow up note Labs reviewed and are significant for: K+ 5.1. Meds reviewed. Called pt and discussed limiting potassium rich foods in her diet prior to surgery. Awaiting additional lab results: COVID. Follow-up completed by: Harpre Russ NP on 04/20/20 at 10:23 AM Follow up note Covid test not detected. CPAP complete. Follow-up completed by: Izabela Velasquez NP on 04/21/20 at 10:19 AM Patient Active Problem List Diagnosis ??? Endometriosis ??? Multiple-type hyperlipidemia ??? Anxiety state ??? Acute cerebrovascular insufficiency ??? Abdominal pain Past Medical History: Diagnosis Date ??? Anemia [...] ??? LAPAROSCOPIC ENDOMETRIOSIS FULGURATION Endometriosis-21 times: lap/laser OB History 4 Para 2 Term AB Living SAB TAB Ectopic Multiple Live Births Allergies Allergen Reactions ??? Aspirin Hives ??? Codeine Hives ??? Duloxetine Mental status changes Reaction: CONFUSION, ??? Gabapentin Mental status changes ??? Paxil [Paroxetine] Mental status changes ??? Wellbutrin [Bupropion] Mental status changes ??? Zoloft [Sertraline] Mental status changes Med List Status: Nurse Complete Set By: Grace Delacruz RN at 04/19/2020 5:19 PM Taking? Last Dose Start Date End Date Provider alendronate (FOSAMAX) 70 mg tablet 04/16/2020 -- -- Historical Provider, bisacodyl EC (DULCOLAX EC) 5 mg EC tablet 04/11/20 -- Ari Yeh MD TAKE TWO 5MG TABLETS AT 10:00 AM AND AT NOON DAY PRIOR TO SURGERY calcium carbonate-vitamin D3 500 mg(1,250mg) -400 unit chewable tablet 04/19/2020 -- -- Historical Provider, clonazePAM (KlonoPIN) 1 mg tablet 04/19/2020 09/09/19 -- Historical Provider, clotrimazole-betamethasone (LOTRISONE) cream More than a month 09/09/19 -- Historical Provider, cyanocobalamin (Vitamin B-12) 100 mcg tablet 04/19/2020 -- -- Historical Provider, cyclobenzaprine (FLEXERIL) 10 mg tablet -- -- Historical Provider, dicyclomine (BENTYL) 10 mg capsule 04/19/2020 08/30/19 -- Historical Provider, docusate sodium (COLACE) 100 mg capsule 04/19/2020 -- -- Historical Provider, ergocalciferol (VITAMIN D) 50,000 unit capsule 04/16/2020 -- -- Historical Provider, ferrous fumarate 325 mg (106 mg iron) tablet 04/18/2020 -- -- Historical Provider, folic acid (FOLVITE) 1 mg tablet 04/18/2020 -- -- Historical Provider, levocetirizine (XYZAL) 5 mg tablet 04/19/2020 -- -- Historical Provider, metroNIDAZOLE (FLAGYL) 500 mg tablet 04/11/20 -- Ari Yeh MD TAKE ONE 500MG TABLET AT 1:00 PM, 2:00 PM AND 10:00 PM DAY PRIOR TO SURGERY neomycin (MYCIFRADIN) 500 mg tablet 04/11/20 05/11/20 Ari Yeh MD TAKE ONE 500MG TABLET AT 1:00 PM, 2:00 PM AND 10:00 PM DAY PRIOR TO SURGERY ondansetron (ZOFRAN) 8 mg tablet 04/11/20 -- Ari Yeh MD TAKE ONE 8MG TABLET AT 11:00 AM AND THE OTHERS NEEDED FOR NAUSEA DAY PRIOR TO SURGERY. TAKE NO CLOSER THAN EVERY 4 HOURS polyethylene glycol (MIRALAX) 17 gram packet 04/19/2020 -- -- Historical Provider, polyethylene glycol (Miralax) 17 gram/dose powder 09/19/19 -- Omi Nolasco MD Take 17 g by mouth daily Mix 1 scoop (17g) in 8oz of water and drink daily. rivaroxaban (XARELTO) 20 mg tablet 04/16/2020 -- -- Historical Provider, rizatriptan (MAXALT) 10 mg tablet Past Week -- -- Historical Provider, traZODone (DESYREL) 150 mg tablet 04/18/2020 -- -- Historical Provider, Current Outpatient Medications: ??? calcium carbonate-vitamin D3 500 mg(1,250mg) -400 unit chewable tablet ??? clonazePAM (KlonoPIN) 1 mg tablet ??? cyanocobalamin (Vitamin B-12) 100 mcg tablet ??? cyclobenzaprine (FLEXERIL) 10 mg tablet ??? dicyclomine (BENTYL) 10 mg capsule ??? docusate sodium (COLACE) 100 mg capsule ??? ergocalciferol (VITAMIN D) 50,000 unit capsule ??? ferrous fumarate 325 mg (106 mg iron) tablet ??? folic acid (FOLVITE) 1 mg tablet ??? levocetirizine (XYZAL) 5 mg tablet ??? polyethylene glycol (MIRALAX) 17 gram packet ??? rizatriptan (MAXALT) 10 mg tablet ??? traZODone (DESYREL) 150 mg tablet ??? alendronate (FOSAMAX) 70 mg tablet ??? bisacodyl EC (DULCOLAX EC) 5 mg EC tablet ??? clotrimazole-betamethasone (LOTRISONE) cream ??? metroNIDAZOLE (FLAGYL) 500 mg tablet ??? neomycin (MYCIFRADIN) 500 mg tablet ??? ondansetron (ZOFRAN) 8 mg tablet ??? polyethylene glycol (Miralax) 17 gram/dose powder ??? rivaroxaban (XARELTO) 20 mg tablet Social History Tobacco Use Smoking Status Former Smoker ??? Packs/day: 2.00 ??? Years: 12.00 ??? Pack years: 24.00 ??? Types: E-cigarettes, Cigarettes ??? Start date: 1981 ??? Quit date: 03/19/2008 ??? Years since quittin.0 Smokeless Tobacco Never Used Substance and Sexual Activity Alcohol Use Yes Comment: rarely Substance and Sexual Activity Drug Use Yes ??? Frequency: 7.0 times per week ??? Types: Marijuana Comment: medical for pain and anxiety Family History Problem Relation Age of Onset [...] Heart disease; ??? Anesthesia problems Neg Hx PAT Physical Exam Airway Exam: Mallampati: III Cervical ROM: FROM TM distance: 3 Patient presents with poor mouth opening. Jaw ROM: full Cardiovascular Exam: Rate: regular Rhythm: regular Negative for Murmur No extra heart sounds appreciated Negative for peripheral edema Pulmonary Exam: LCTA, bilat EENT Exam: trachea midline Dental Exam: Lower dentures and upper dentures Skin Exam: Skin is warm. Turgor is normal. Abdominal exam: Abdomen is soft. Bowel sounds are present. Current state: Patient's current state is cooperative and interactive. Vitals: 04/19/20 1720 04/19/20 1726 BP: 115/77 120/83 Pulse: 82 SpO2: 99% PT: No results found for requested labs within last 720 hours. INR: No results found for requested labs within last 720 hours. APTT: No results found for requested labs within last 720 hours. Hgb A1C: No results found for requested labs within last 720 hours. CBC RBC: No results found for requested labs within last 720 hours. RDW: No results found for requested labs within last 720 hours. MCHC: No results found for requested labs within last 720 hours. MCH: No results found for requested labs within last 720 hours. MCV: No results found for requested labs within last 720 hours. Hct: No results found for requested labs within last 720 hours. Hgb: No results found for requested labs within last 720 hours. WBC: No results found for requested labs within last 720 hours. MPV: No results found for requested labs within last 720 hours. Platelets: No results found for requested labs within last 720 hours. RDW CV: No results found for requested labs within last 720 hours. RDW Sd: No results found for requested labs within last 720 hours. BMP Glucose: No results found for requested labs within last 720 hours. Calcium: No results found for requested labs within last 720 hours. Sodium: No results found for requested labs within last 720 hours. Potassium: No results found for requested labs within last 720 hours. CO2: No results found for requested labs within last 720 hours. Chloride: No results found for requested labs within last 720 hours. BUN: No results found for requested labs within last 720 hours. Creatinine: No results found for requested labs within last 720 hours. STOP-Bang Total Score: 1 Shadi index score: 100 documented in this encounter Procedure Notes * Adry Simpson RN - 04/25/2020 5:49 PM CDT Vascular Access Nurse: Procedure Note Summary of treatment provided to patient today is as follows : . Bedside Procedure Time out/Checklist (last 4 hours) Pre-Op Checklist Row Name 04/25/20 1737 Patient/Chart Verification Patient ID Verified Verbal;Armband -CE ID Band Applied Yes -CE Pre-op Lab/Test Results Available Not applicable -CE Site Marked Yes -CE Procedure Verification Correct Patient Yes -CE Correct Site Yes -CE Correct Procedure Yes -CE Correct Laterality Not applicable -CE Anesthesia Verification Antibiotic Status Not applicable -CE User Brown (r) = Recorded By, (t) = Taken By, (c) = Cosigned By Initials Name CE Adry Simpson RN Vascular Access Documentation (last 4 hours) [facility] Additional Procedures Row Name 04/25/20 1738 Procedures Line Type PICC double -CE Time in 1719 -CE Time out 1754 -CE Time Calculation (min) 35 min -CE [REMOVED] Peripheral IV 04/23/20 20 G Right Forearm IV Properties Placement Date: 04/23/20 -KP Placement Time: 1754 -KP Type: Other (Comment) -KP, Introcan/ 1.75 Size (Gauge): 20 G -KP Location Orientation: Right -KP Location: Forearm -KP Site Prep: Chlorhexidine -KP Local Anesthetic: None -KP Technique: Ultrasound guidance -KP Inserted by: Dodie Vasquez RN -KP Insertion attempts: 3 -KP, 1st attempt made by Marvin Garibay RN Removal Date: 04/25/20 -MB Removal Time: 1541 -MB Removal Reason : Infiltrated -MB PICC Double Lumen 04/25/20 Non-tunneled Power #1 Red, #2 Purple, Right Basilic Line Properties Placement Date: 04/25/20 -CE Placement Time: 1737 -CE Catheter Time Out Checklist Completed: Yes -CE Hand Hygiene Performed: Yes -CE Site Prep: Chlorhexidine -CE Site Prep Agent has Completely Dried Before Insertion: Yes - CE All 5 Sterile Barriers or Appropriate Barriers Used (Gloves, Gown, Cap, Mask, Large Sterile Drape): Yes -CE Local Anesthetic: Injectable -CE, lidocaine 1% 2mlCVC Type: Non-tunneled -CE Power injectable: Power -CE Lumen # 1: #1 Red, -CE Lumen # 2: #2 Purple,-CE Size (Fr): 5 -CE Orientation: Right -CE Location: Basilic -CE Technique: Modified seldinger Samantha #: [id number] -CE Expiration Date: 04/11/21 -CE Trimmed Length (cm) : 34 cm -CE Line Tip Location: Central - CE Initial Extremity Circumference (cm): 26 cm -CE Circumference Reference Point: 6 -CE Initial External Length Catheter (cm): 0 cm -CE Placement Verification: ECG -CE Line Secured by : Securement device -CE Inserted by: juan cobian rn -CE Assisted By: adry simpson rn -CE Insertion attempts: 1 -CE Patient Tolerance: Tolerated well -CE Description (optional): bard power picc -CE Site Assessment Clean and dry -CE Dressing Type CHG Dressing -CE Dressing Status Clean, dry, intact -CE Lumen #1 Status Blood return noted;Saline locked;Capped - Needleless;Capped - Disinfectant -CE Lumen #2 Status Blood return noted;Saline locked;Capped - Needleless;Capped - Disinfectant -CE Line Necessity Reason Needed upon discharge for telepathist use;Receiving high risk meds that could damage tissue if infiltrated (vesicants such as compazine or antibiotics, TPN, high dextrose concentration, chemotherapy, concentrated meds or fluid restricted) -CE User Brown (r) = Recorded By, (t) = Taken By, (c) = Cosigned By Initials Name CE Adry Simpson RN Jennifer Rasmussen RN Jelena Garibay RN Plan: Follow up: Adry Simpson RN * Jelena Garibay RN - 04/23/2020 5:54 PM CDT Vascular Access Nurse: Procedure Note Summary of treatment provided to patient today is as follows : . Bedside Procedure Time out/Checklist (last 4 hours) Pre-Op Checklist Row Name 04/23/20 1641 04/23/20 1530 04/23/20 1403 Patient/Chart Verification Arm Bands On ID;Allergies;Fall -MA ID;Allergies;Fall -MA ID;Allergies;Fall -MA User Brown (r) = Recorded By, (t) = Taken By, (c) = Cosigned By Initials Name LILIBETH Telma Henriquez RN Vascular Access Documentation (last 4 hours) [facility] Additional Procedures Row Name 04/23/20 1750 04/23/20 1721 Procedures Line Type Peripheral -KP Peripheral -LP Time in 1714KP 1709 -LP Time out 1754 -- Time Calculation (min) 40 min -KP -- Vascular Access Procedures Difficult IV start -KP -- Comfort Measures -- Position of comfort -LP Patient Response -- Tolerated (no change in status) -LP Peripheral IV 04/23/20 22 G Anterior;Right Forearm IV Properties Placement Date: 04/23/20 -LP Type: Angiocath -LP Size (Gauge): 22 G -LP Location Orientation: Anterior;Right -LP Location: Forearm -LP Site Prep: Chlorhexidine -LP Comfort Measures: Position of comfort -LP Local Anesthetic: None -LP Technique: Anatomical landmarks -LP Inserted by: Jelena Garibay RN -LP Insertion attempts: 1 -LP Patient Tolerance: Tolerated well -LP Peripheral IV 04/23/20 20 G Right Forearm IV Properties Placement Date: 04/23/20 -KP Placement Time: 1754KP Type: Other (Comment) -KP, Introcan/ 1.75 Size (Gauge): 20 G -KP Location Orientation: Right -KP Location: Forearm -KP Site Prep: Chlorhexidine -KP Local Anesthetic: None -KP Technique: Ultrasound guidance -KP Inserted by: Dodie Vasquez RN -KP Insertion attempts: 3 -KP, 1st attempt made by Marvin Garibay RN Site Assessment Clean and dry -KP -- Line Status Single Blood return noted;Saline locked;Flushes easily -KP -- Dressing Type Transparent -KP -- Dressing Status Clean, dry, intact -KP -- User Brown (r) = Recorded By, (t) = Taken By, (c) = Cosigned By Initials Name CARISA Vasquez RN Jelena Garibay RN Plan: Follow up: Jelena Garibay RN documented in this encounter Consult Notes * Dilma Latham MD - 04/25/2020 10:31 AM CDTAssociated Order(s): CONSULT TO GENERAL INFECTIOUS DISEASE Infectious Disease Initial Consult Note Infectious Disease Team: General 2 Contact Information: Please see [facility] Treatment Team listing for up-to-date contact information. Requesting Physician: Ari Yeh MD Reason for Consult: Diagnostic and treatment recommendations, as well as assistance with follow up care. MRSA growing from OR tissue cx from infected mesh removal, some mesh still in place not fully excised Subjective Chief Complaint: abdominal pain HPI: The patient is a 54 y.o. female hx of 21 prior abdominal surgeries for endometriosis with chronic draining sinus is admitted for worsening of her chronic abdominal pain, underwent wound exploration and mesh excision with mesh culture growing MRSA. She initially presented to the ED out of concern for worsening abdominal pain which she thought may be 2/2 chronic abdominal wound vs kidney stones. She states she has had significant abdominal pain since one of the abdominal surgeries in 2019. On ROS, she denies f/c/n/v, worsening constipation or diarrhea, arthralgias, myalgias, skin rashes,worsening headaches, blurry vision. Tissue culture 04/22 (10:05) growing MRSA 1/2. No fungal growth to date. Abx: Ertapenem 04/22 (8am) Ancef 04/23 -> Vancomycin 04/24 -> Past medical history: c diff (+PCR assay 12/29 , asymptomatic; s/p flagyl, resolved), chronic abdominal wound, HLD, b/l nephrolithiasis, chronic abdominal pain, DVT, colostomy, osteoporosis, anxiety, migraine. 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 Social history: former smoker, occasional EtOH, medicinal marijuana; never used other recreational substances. Family history: renal cancer in two first degree relatives, breast, ovarian, and prostate cancer inthree first degree relatives. Recurrent nephrolithiasis in sister, mother. Past Medical History: Diagnosis Date ??? Anemia [...] FULGURATION Endometriosis-21 times: lap/laser HOME MEDICATIONS : bisacodyl EC (DULCOLAX EC) 5 mg EC tablet calcium carbonate-vitamin D3 500 mg(1,250mg) -400 unit chewable tablet clonazePAM (KlonoPIN) 1 mg tablet cyanocobalamin (Vitamin B-12) 100 mcg tablet cyclobenzaprine (FLEXERIL) 10 mg tablet dicyclomine (BENTYL) 10 mg capsule docusate sodium (COLACE) 100 mg capsule ferrous fumarate 325 mg (106 mg iron) tablet folic acid (FOLVITE) 1 mg tablet levocetirizine (XYZAL) 5 mg tablet metroNIDAZOLE (FLAGYL) 500 mg tablet neomycin (MYCIFRADIN) 500 mg tablet ondansetron (ZOFRAN) 8 mg tablet polyethylene glycol (MIRALAX) 17 gram packet polyethylene glycol (Miralax) 17 gram/dose powder rizatriptan (MAXALT) 10 mg tablet traZODone (DESYREL) 150 mg tablet alendronate (FOSAMAX) 70 mg tablet clotrimazole-betamethasone (LOTRISONE) cream ergocalciferol (VITAMIN D) 50,000 unit capsule rivaroxaban (XARELTO) 20 mg tablet Current Facility-Administered Medications Ordered in Epic Medication Dose Route Frequency Provider Last Rate Last Dose ??? acetaminophen (TYLENOL) tablet 1,000 mg 1,000 mg oral Q6H [facility] Sarah Tinajero MD 1,000 mg at04/25/20 0536 ??? ceFAZolin (ANCEF) 1 gram/10 mL in sterile water (premix) 1,000 mg 1,000 mg intravenous Q8H [facility] Vinny Mcnair NP Stopped at 04/25/20 0754 ??? clonazePAM (KlonoPIN) tablet 0.5 mg 0.5 mg oral BID Sarah Tinajero MD 0.5 mg at 04/25/20918 ??? cyclobenzaprine (FLEXERIL) tablet 10 mg 10 mg oral BID Elizabeth Anderson MD 10 mg at 04/25/20918 ??? dicyclomine (BENTYL) capsule 10 mg 10 mg oral TID Elizabeth Anderson MD 10 mg at 04/25/20918 ??? docusate sodium (COLACE) capsule 100 mg 100 mg oral Daily with lunch Elizabeth Anderson MD 100 mg at 04/24/20 1116 ??? heparin in 0.45% sodium chloride 25,000 units/250 mL (100 units/mL) infusion (premix) 1-33 Units/kg/hr intravenous Titrated Vinny Mcnair, STEVEN Stopped at 04/24/20 1211 ??? ondansetron ODT (ZOFRAN-ODT) disintegrating tablet 4 mg 4 mg oral QID PRN Vinny Mcnair, NP4 mg at 04/24/202011 ??? oxyCODONE (ROXICODONE) tablet 5 mg 5 mg oral Q3H PRN Sarah Tinajero MD 5 mg at 04/25/20918 ??? polyethylene glycol (MIRALAX) packet 17 g 17 g oral Daily with lunch Elizabeth Anderson MD 17 gat 04/24/20 1116 ??? rizatriptan COOK PICKLED MEAT (MAXALT-COOK PICKLED MEAT) disintegrating tablet 10 mg 10 mg oral Once PRN Elizabeth Anderson MD ??? sodium chloride 0.9% flush 0.5-20 mL 0.5-20 mL intra-catheter Q8H [facility] Elizabeth Anderson MD 10 mL at 04/25/20 0537 ??? sodium chloride 0.9% flush 0.5-20 mL 0.5-20 mL intra-catheter PRN Elizabeth Anderson MD ??? traZODone (DESYREL) tablet 150 mg 150 mg oral Nightly Elizabeth Anderson MD 150 mg at 09/13/20 2012 ??? vancomycin 750 mg/150 mL in dextrose 5% (premix) 750 mg 750 mg intravenous Q12H Sarah Tinajero MD 150 mL/hr at 04/25/20 0021 750 mg at 04/25/20 0021 No current Epic-ordered outpatient medications on file. Anti-infectives (From admission, onward) Start Dose/Rate Route Frequency Ordered Stop 04/24/20 1330 vancomycin 750 mg/150 mL in dextrose 5% (premix) 750 mg 750 mg 150 mL/hr over 60 Minutes intravenous Every 12 hours 04/24/20 1249 04/23/20 1115 ceFAZolin (ANCEF) 1 gram/10 mL in sterile water (premix) 1,000 mg 1,000 mg 200 mL/hr over 3 Minutes intravenous Every 8 hours scheduled 04/23/20 1101 Active Lines/Ports/Devices: Peripheral IV 04/23/20 20 G Right Forearm (Active) Number of days: 2 Patient Allergies: Allergies Allergen Reactions ??? Aspirin Hives ??? Codeine Hives ??? Duloxetine Mental status changes Reaction: CONFUSION, ??? Gabapentin Mental status changes ??? Paxil [Paroxetine] Mental status changes ??? Wellbutrin [Bupropion] Mental status changes ??? Zoloft [Sertraline] Mental status changes Social History Social History Narrative ??? Not on file reports that she quit smoking about 12 years ago. Her smoking use included e- cigarettes and cigarettes. She started smoking about 38 years ago. She has a 24.00 pack-year smoking history. She has never used smokeless tobacco. She reports current alcohol use. She reports current drug use. Frequency: 7.00 times per week. Drug: Marijuana. Family history reviewed and non-contributory Family History Problem Relation Age of Onset [...] and otherwise all other systems are negative Objective Vitals: 24hr Min/Max: Temp Min: 36.3 ??C (97.3 ??F) Max: 36.7 ??C (98.1 ??F) Pulse Min: 79 Max: 88 BP Min: 106/61 Max: 154/75 Resp Min: 18 Max: 20 SpO2 Min: 98 % Max: 100 % Most Recent : Vitals: 04/25/20 0740 BP: 110/65 Pulse: 88 Resp: 18 Temp: 36.7 ??C (98.1 ??F) SpO2: 99% I/O last 2 completed shifts: In: 150 [IV Piggyback:150] Out: 1000 [Urine:1000] Physical Exam: Constitutional: NAD Eyes: PERRL, EOMI, anicteric ENT: NCAT. MMM. OP clear without lesions. Lungs: CTAB Cardiovascular: RRR no m/r/g GI: Abdomen with dressing intact, multiple surgical scars. Skin: No new rashes, lesions or bruises. Extremities: Normal without edema or cyanosis. Lymph: No cervical, supraclavicular, axillary or inguinal adenopathy. Neurologic: AOx4, CNII-XII intact, grossly normal strength and sensation. Psychiatric: Normal affect and mood. Lab/Radiology/Diagnostic Review: I reviewed the laboratory result(s). Recent Labs: Microbiology: Lab Results Component Value Date MICROBIOLOGY Final Report: No growth 04/22/2020 MICROBIOLOGY Preliminary Report: No growth of fungus to date 04/22/2020 MICROBIOLOGY (.) 04/22/2020 Preliminary Report: Rare Staphylococcus aureus Methicillin resistant (MRSA) by penicillin binding protein 2a (PBP2a) testing. Susceptibility testing results to follow. MICROBIOLOGY Preliminary Report: No growth of fungus to date 04/22/2020 MICROBIOLOGY 02/06/2020 Final Report: Less than 100,000 colonies/mL (clinically insignificant growth based on current clinical standards) MICROBIOLOGY (.) 09/19/2019 Final Report: Few Mixed microorganisms. Includes the following: Few Staphylococcus aureus Methicillin resistant (MRSA) by penicillin binding protein 2a (PBP2a) testing. Few Staphylococcus aureus #2 Methicillin resistant (MRSA) by penicillin binding protein 2a (PBP2a) testing. CBC: Recent Labs Lab Units 04/25/20 0615 04/23/204 WBC K/cumm 8.7 < > 10.1* HEMOGLOBIN g/dL 12.0 < > 11.5* HEMATOCRIT % 37.0 < > 36.2 PLATELETS K/cumm 320 < > 286 NEUTROS PCT % -- -- 82.1 LYMPHS PCT % -- -- 12.9 MONOS PCT % -- -- 4.7 EOS PCT % -- -- 0.0 < > = values in this interval not displayed. CMP: Recent Labs Lab Units 04/25/20 0615 04/23/204 SODIUM mmol/L 140 < > 136 POTASSIUM PLASMA mmol/L 3.7 < > 5.1* CHLORIDE mmol/L 102 < > 102 CO2 mmol/L 27 < > 24 ANIONGAP mmol/L 11 < > 10 GLUCOSE mg/dL 105 < > 100 BUN SERUM mg/dL 4* < > 11 CREATININE mg/dL 0.69 < > 0.73 CALCIUM mg/dL 9.8 < > 9.3 ALBUMIN g/dL -- -- 3.8 ALK PHOS Units/L -- -- 111 ALT Units/L -- -- 16 AST Units/L -- -- 24 BILIRUBIN TOTAL mg/dL -- -- 0.2 < > = values in this interval not displayed. ESR: CRP: Last UA: Current CrCl: Estimated Creatinine Clearance: 78.7 mL/min (by C-G formula based on SCr of 0.69 mg/dL). Cr. Trend: Recent Labs Lab Units 04/25/20 0604/23/20 1839 04/23/20423 CREATININE mg/dL 0.69 0.73 0.73 Last HIV Labs (if any): HIV Ab Screen: No results found for: [id number] HIV Viral Load: No results found for: [id number] CD4 Count: No results found for: CD4ABS Radiology: Radiology results were reviewed. Last X-Ray [...] examined and the following details determined: Assessment/Plan Madison Weinberg is a 54 y.o. 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 There continues to be some mesh retained and it is unlikely that it can be entirely removed with surgery. #MRSA infection of abdominal mesh, with some mesh retained Recommendations: - Recommend IV Vancomycin for a total of two weeks. - Following a two week course of Vancomycin, recommend double strength bactrim 800/160 twice a day indefinitely (or at least for one year). # Therapeutic drug monitoring - Vancomycin can cause renal impairment, neutropenia, eosinophilia, DRESS, ototoxicity, and thrombocytopenia. Due to the side effects, CBC and BMP should be monitored weekly while on vancomycin. - While taking bactrim, CBC and CMP should be checked on a weekly basis, due to the possibility of bone marrow suppression and hyperkalemia. Nausea and vomiting are common side effects of bactrim. Other possible side effects include cholestatic hepatitis, or photosensitivity. Rarely, bactrim may beassociated with Grant-Janak syndrome, toxic epidermal necrolysis, aseptic meningitis, pancreatitis, neurologic toxicities (tremor, ataxia, clonus), interstitial nephritis, or Sweet's syndrome. Patient seen and staffed with Dr. Colin. ID Team General 2 to follow. Please call Team 2 fellow ([phone]) with questions or changes in the patient's status. After hours the ID fellow collections rep can be reached at [phone]. Cosigned by Danyel Colin MD at 04/25/2020 10:13 PM CDT Associated attestation - Danyel Colin MD - 04/25/2020 10:13 PM CDT I have seen and examined the patient on 04/25/2020 in conjunction with this fellow/resident and agree with the assessment and plan as documented in the above note. Mesh infection from MRSA s/p partial excision. Will need at least 2 weeks of IV abx followed by Bactrim suppression therapy (at least year or lifelong). documented in this encounter Nursing Notes * Sly Santiago RN - 04/28/2020 4:22 PM CDT Patient discharged via hospitality suite with her at her side. After visit summary explained and signed with patient. Mobile pharmacy delivered patient's medications to the hospitality suite. * Ana Tanner RN - 04/22/2020 12:00 PM CDT Belongings retrieved from locker 99 , sealed, and placed on bed. documented in this encounter Miscellaneous Notes * Plan of Care - Sly Santiago RN - 04/28/2020 10:41 AM CDT Problem: Health Behavior: Goal: Understanding of discharge needs will improve 04/28/2020 1041 by Sly Santiago RN Outcome: Adequate for Discharge 04/28/2020 1040 by Sly Santiago RN Outcome: Progressing Problem: Activity: Goal: Risk for activity intolerance will decrease 04/28/2020 1041 by Sly Santiago RN Outcome: Adequate for Discharge 04/28/2020 1040 by Sly Santiago RN Outcome: Progressing Problem: Lack of Knowledge: Goal: Knowledge of disease or condition will improve 04/28/2020 1041 by lSy Santiago RN Outcome: Adequate for Discharge 04/28/2020 1040 by Sly Santiago RN Outcome: Progressing Goal: Ability to state and carry out methods to decrease the pain will improve 04/28/2020 1041 by Sly Santiago RN Outcome: Adequate for Discharge 04/28/2020 1040 by Sly Santiago RN Outcome: Progressing Problem: Nutritional: Goal: Nutritional status will be supported 04/28/2020 1041 by Sly Santiago RN Outcome: Adequate for Discharge 04/28/2020 1040 by Sly Santiago RN Outcome: Progressing Problem: Fluid Volume: Goal: Maintenance of adequate hydration will improve 04/28/2020 1041 by Sly Santiago RN Outcome: Adequate for Discharge 04/28/2020 1040 by Sly Santiago RN Outcome: Progressing Problem: Health Behavior: Goal: Ability to state signs and symptoms to report to health care provider will improve 04/28/2020 1041 by Sly Santiago RN Outcome: Adequate for Discharge 04/28/2020 1040 by Sly Santiago RN Outcome: Progressing Problem: Physical Regulation: Goal: Complications related to the disease process, condition or treatment will be avoided or minimized 04/28/2020 1041 by Sly Santiago RN Outcome: Adequate for Discharge 04/28/2020 1040 by Sly Santiago RN Outcome: Progressing Goal: Ability to maintain clinical measurements within normal limits will improve 04/28/2020 1041 by Sly Santiago RN Outcome: Adequate for Discharge 04/28/2020 1040 by Sly Santiago RN Outcome: Progressing Problem: Sensory: Goal: Ability to identify factors that increase the pain will improve 04/28/2020 1041 by Sly Santiago RN Outcome: Adequate for Discharge 04/28/2020 1040 by Sly Santiago RN Outcome: Progressing Goal: Ability to notify healthcare provider of pain before it becomes unmanageable or unbearable will improve 04/28/2020 1041 by Sly Santiago RN Outcome: Adequate for Discharge 04/28/2020 1040 by Sly Santiago RN Outcome: Progressing Goal: Pain level will decrease 04/28/2020 1041 by Sly Santiago RN Outcome: Adequate for Discharge 04/28/2020 1040 by Sly Santiago RN Outcome: Progressing Problem: Activity: Goal: Ability to avoid complications of mobility impairment will improve 04/28/2020 1041 by Sly Santiago RN Outcome: Adequate for Discharge 04/28/2020 1040 by Sly Santiago RN Outcome: Progressing Problem: Lack of Knowledge: Goal: Knowledge of the prescribed therapeutic regimen will improve 04/28/2020 1041 by Sly Santiago RN Outcome: Adequate for Discharge 04/28/2020 1040 by Sly Santiago RN Outcome: Progressing Goal: Ability to demonstrate proper wound care will improve 04/28/2020 1041 by Sly Santiago RN Outcome: Adequate for Discharge 04/28/2020 1040 by Sly Santiago RN Outcome: Progressing Problem: Health Behavior: Goal: Identification of resources available to assist in meeting health care needs will improve 04/28/2020 1041 by Sly Santiago RN Outcome: Adequate for Discharge 04/28/2020 1040 by Sly Santiago RN Outcome: Progressing Problem: Nutritional: Goal: Nutritional status will improve 04/28/2020 1041 by Sly Santiago RN Outcome: Adequate for Discharge 04/28/2020 1040 by Sly Santiago RN Outcome: Progressing Problem: Skin Integrity: Goal: Signs of wound healing will improve 04/28/2020 1041 by Sly Santiago RN Outcome: Adequate for Discharge 04/28/2020 1040 by Sly Santiago RN Outcome: Progressing Goal: Skin integrity will improve 04/28/2020 1041 by Sly Santiago RN Outcome: Adequate for Discharge 04/28/2020 1040 by Sly Santiago RN Outcome: Progressing Goal: Will show no evidence of further tissue damage 04/28/2020 1041 by Sly Santiago RN Outcome: Adequate for Discharge 04/28/2020 1040 by Sly Santiago RN Outcome: Progressing Problem: Activity: Goal: Mobility will improve 04/28/2020 1041 by Sly Santiago RN Outcome: Adequate for Discharge 04/28/2020 1040 by Sly Santiago RN Outcome: Progressing Problem: Lack of Knowledge: Goal: Understanding of ways to prevent future skin breakdown will improve 04/28/2020 1041 by Sly Santiago RN Outcome: Adequate for Discharge 04/28/2020 1040 by Sly Santiago RN Outcome: Progressing Goal: Ability to identify appropriate dietary choices will improve 04/28/2020 1041 by Sly Santiago RN Outcome: Adequate for Discharge 04/28/2020 1040 by Sly Santiago RN Outcome: Progressing Problem: Nutritional: Goal: Dietary intake will improve 04/28/2020 1041 by Sly Santiago RN Outcome: Adequate for Discharge 04/28/2020 1040 by Sly Santiago RN Outcome: Progressing Goal: Ability to maintain a balanced intake and output will improve 04/28/2020 1041 by Sly Santiago RN Outcome: Adequate for Discharge 04/28/2020 1040 by Sly Santiago RN Outcome: Progressing Problem: Skin Integrity: Goal: Risk for impaired skin integrity will decrease 04/28/2020 1041 by Sly Santiago RN Outcome: Adequate for Discharge 04/28/2020 1040 by Sly Santiago RN Outcome: Progressing Goal: Ability to demonstrate warm and dry skin will improve 04/28/2020 1041 by Sly Santiago RN Outcome: Adequate for Discharge 04/28/2020 1040 by Sly Santiago RN Outcome: Progressing Goal: Circulation will improve to fullest extent possible 04/28/2020 1041 by Sly Santiago RN Outcome: Adequate for Discharge 04/28/2020 1040 by Sly Santiago RN Outcome: Progressing Goals: pain control, safety, d/c * Plan of Care - Fay Paniagua RN - 04/27/2020 11:04 PM CDT Problem: Health Behavior: Goal: Understanding of discharge needs will improve Outcome: Progressing Problem: Activity: Goal: Risk for activity intolerance will decrease Outcome: Progressing Problem: Lack of Knowledge: Goal: Knowledge of disease or condition will improve Outcome: Progressing Goal: Ability to state and carry out methods to decrease the pain will improve Outcome: Progressing Problem: Nutritional: Goal: Nutritional status will be supported Outcome: Progressing Problem: Fluid Volume: Goal: Maintenance of adequate hydration will improve Outcome: Progressing Problem: Health Behavior: Goal: Ability to state signs and symptoms to report to health care provider will improve Outcome: Progressing Problem: Physical Regulation: Goal: Complications related to the disease process, condition or treatment will be avoided or minimized Outcome: Progressing Goal: Ability to maintain clinical measurements within normal limits will improve Outcome: Progressing Problem: Sensory: Goal: Ability to identify factors that increase the pain will improve Outcome: Progressing Goal: Ability to notify healthcare provider of pain before it becomes unmanageable or unbearable will improve Outcome: Progressing Goal: Pain level will decrease Outcome: Progressing Problem: Activity: Goal: Ability to avoid complications of mobility impairment will improve Outcome: Progressing Problem: Lack of Knowledge: Goal: Knowledge of the prescribed therapeutic regimen will improve Outcome: Progressing Goal: Ability to demonstrate proper wound care will improve Outcome: Progressing Problem: Health Behavior: Goal: Identification of resources available to assist in meeting health care needs will improve Outcome: Progressing Problem: Nutritional: Goal: Nutritional status will improve Outcome: Progressing Problem: Skin Integrity: Goal: Signs of wound healing will improve Outcome: Progressing Goal: Skin integrity will improve Outcome: Progressing Goal: Will show no evidence of further tissue damage Outcome: Progressing Problem: Activity: Goal: Mobility will improve Outcome: Progressing Problem: Lack of Knowledge: Goal: Understanding of ways to prevent future skin breakdown will improve Outcome: Progressing Goal: Ability to identify appropriate dietary choices will improve Outcome: Progressing Problem: Nutritional: Goal: Dietary intake will improve Outcome: Progressing Goal: Ability to maintain a balanced intake and output will improve Outcome: Progressing Problem: Skin Integrity: Goal: Risk for impaired skin integrity will decrease Outcome: Progressing Goal: Ability to demonstrate warm and dry skin will improve Outcome: Progressing Goal: Circulation will improve to fullest extent possible Outcome: Progressing Goals: Clinical Goals for the Shift: dressing change, bath, sleep hygiene, monitor labs, pain control Summary: pain control, dressing change completed, bath in morning, sleep hygiene, monitor labs, will continue to monitor * Plan of Care - Jennifer Rasmussen RN - 04/27/2020 8:32 AM CDT Problem: Health Behavior: Goal: Understanding of discharge needs will improve Outcome: Progressing Problem: Activity: Goal: Risk for activity intolerance will decrease Outcome: Progressing Problem: Lack of Knowledge: Goal: Knowledge of disease or condition will improve Outcome: Progressing Goal: Ability to state and carry out methods to decrease the pain will improve Outcome: Progressing Problem: Nutritional: Goal: Nutritional status will be supported Outcome: Progressing Problem: Physical Regulation: Goal: Complications related to the disease process, condition or treatment will be avoided or minimized Outcome: Progressing Goal: Ability to maintain clinical measurements within normal limits will improve Outcome: Progressing Problem: Sensory: Goal: Ability to identify factors that increase the pain will improve Outcome: Progressing Goal: Ability to notify healthcare provider of pain before it becomes unmanageable or unbearable will improve Outcome: Progressing Goal: Pain level will decrease Outcome: Progressing Problem: Lack of Knowledge: Goal: Knowledge of the prescribed therapeutic regimen will improve Outcome: Progressing Goal: Ability to demonstrate proper wound care will improve Outcome: Progressing Problem: Health Behavior: Goal: Identification of resources available to assist in meeting health care needs will improve Outcome: Progressing Problem: Skin Integrity: Goal: Signs of wound healing will improve Outcome: Progressing Goal: Skin integrity will improve Outcome: Progressing Goal: Will show no evidence of further tissue damage Outcome: Progressing Problem: Lack of Knowledge: Goal: Understanding of ways to prevent future skin breakdown will improve Outcome: Progressing Goal: Ability to identify appropriate dietary choices will improve Outcome: Progressing Problem: Skin Integrity: Goal: Risk for impaired skin integrity will decrease Outcome: Progressing Goal: Ability to demonstrate warm and dry skin will improve Outcome: Progressing Goal: Circulation will improve to fullest extent possible Outcome: Progressing Goals: Clinical Goals for the Shift: Dressing change, monitor drainage, pain management Summary: Jennifer Rasmussen RN * Plan of Care - Fay Paniagua RN - 04/26/2020 10:13 PM CDT Problem: Health Behavior: Goal: Understanding of discharge needs will improve Outcome: Progressing Problem: Activity: Goal: Risk for activity intolerance will decrease Outcome: Progressing Problem: Lack of Knowledge: Goal: Knowledge of disease or condition will improve Outcome: Progressing Goal: Ability to state and carry out methods to decrease the pain will improve Outcome: Progressing Problem: Nutritional: Goal: Nutritional status will be supported Outcome: Progressing Problem: Fluid Volume: Goal: Maintenance of adequate hydration will improve Outcome: Progressing Problem: Health Behavior: Goal: Ability to state signs and symptoms to report to health care provider will improve Outcome: Progressing Problem: Physical Regulation: Goal: Complications related to the disease process, condition or treatment will be avoided or minimized Outcome: Progressing Goal: Ability to maintain clinical measurements within normal limits will improve Outcome: Progressing Problem: Sensory: Goal: Ability to identify factors that increase the pain will improve Outcome: Progressing Goal: Ability to notify healthcare provider of pain before it becomes unmanageable or unbearable will improve Outcome: Progressing Goal: Pain level will decrease Outcome: Progressing Problem: Activity: Goal: Ability to avoid complications of mobility impairment will improve Outcome: Progressing Problem: Lack of Knowledge: Goal: Knowledge of the prescribed therapeutic regimen will improve Outcome: Progressing Goal: Ability to demonstrate proper wound care will improve Outcome: Progressing Problem: Health Behavior: Goal: Identification of resources available to assist in meeting health care needs will improve Outcome: Progressing Problem: Nutritional: Goal: Nutritional status will improve Outcome: Progressing Problem: Skin Integrity: Goal: Signs of wound healing will improve Outcome: Progressing Goal: Skin integrity will improve Outcome: Progressing Goal: Will show no evidence of further tissue damage Outcome: Progressing Problem: Activity: Goal: Mobility will improve Outcome: Progressing Problem: Lack of Knowledge: Goal: Understanding of ways to prevent future skin breakdown will improve Outcome: Progressing Goal: Ability to identify appropriate dietary choices will improve Outcome: Progressing Problem: Nutritional: Goal: Dietary intake will improve Outcome: Progressing Goal: Ability to maintain a balanced intake and output will improve Outcome: Progressing Problem: Skin Integrity: Goal: Risk for impaired skin integrity will decrease Outcome: Progressing Goal: Ability to demonstrate warm and dry skin will improve Outcome: Progressing Goal: Circulation will improve to fullest extent possible Outcome: Progressing Goals: Clinical Goals for the Shift: dressing change, bath, pain medication, sleep hygiene Summary: pain control, bath and dressing change completed, sleep hygiene, monitor labs, will continue to monitor * Plan of Care - Jennifer Rasmussen RN - 04/26/2020 6:29 PM CDT Problem: Health Behavior: Goal: Understanding of discharge needs will improve Outcome: Progressing Problem: Lack of Knowledge: Goal: Knowledge of disease or condition will improve Outcome: Progressing Goal: Ability to state and carry out methods to decrease the pain will improve Outcome: Progressing Problem: Nutritional: Goal: Nutritional status will be supported Outcome: Progressing Problem: Health Behavior: Goal: Ability to state signs and symptoms to report to health care provider will improve Outcome: Progressing Problem: Physical Regulation: Goal: Complications related to the disease process, condition or treatment will be avoided or minimized Outcome: Progressing Goal: Ability to maintain clinical measurements within normal limits will improve Outcome: Progressing Problem: Sensory: Goal: Ability to identify factors that increase the pain will improve Outcome: Progressing Goal: Ability to notify healthcare provider of pain before it becomes unmanageable or unbearable will improve Outcome: Progressing Goal: Pain level will decrease Outcome: Progressing Problem: Activity: Goal: Ability to avoid complications of mobility impairment will improve Outcome: Progressing Problem: Nutritional: Goal: Nutritional status will improve Outcome: Progressing Problem: Skin Integrity: Goal: Signs of wound healing will improve Outcome: Progressing Goal: Skin integrity will improve Outcome: Progressing Goal: Will show no evidence of further tissue damage Outcome: Progressing Goals: Clinical Goals for the Shift: Wound care dressing, monitor PTT, pain control, IV ABX Summary: Jennifer Rasmussen RN * Plan of Care - Cheryl Pabon RN - 04/26/2020 4:00 PM CDT Home Health referral received. Patient accepted to [facility]. Home Health Services explained and information verified with patient. Patient aware of discharging on and delivery will be to patient room. Patient was instructed to call if they have not been contacted within 24 hours of discharge. ELSA Moraes, card game operator Coordinator [facility] * Plan of Care - Cheryl Pabon RN - 04/26/2020 1:37 PM CDT Referral received. I will need to assess patient and/or family for home infusion appropriateness, verify benefits for home infusion, and educate patient/family on home infusion process and obtain Home Health Nursing. Referrals are processed between 8am - 4:00pm Saturday - Saturday. For after hour emergencies please call [phone]. Any referrals received after 4pm will be processed the next day. F or discharge planning purposes please keep in mind that referrals take 24 or more hours to process. Thank you ELSA Moraes, openstack developerDrawing Press Operator [place] [facility] [phone] * Plan of Care - Tessy Lowe RN - 04/26/2020 1:41 AM CDT Goals: Clinical Goals for the Shift: Pain control, rest, monitor surgical site, I/O's Summary: Patient receiving PRN pain medications and is resting comfortably. * Plan of Care - Danyel Colin MD - 04/25/2020 4:11 PM CDT Sign Off Recommendations Diagnosis: infected abdominal mesh Retained Hardware(Yes/No): retained infected abdominal mesh Location: abdominal wall Site of Infection(s): abdominal wall Organism(s): MRSA Antibiotics Start Date: 04/24/20 PMD: Lazarus Albert MD Infectious Disease Team: General 2 Infectious Disease Attending: Dr. oClin Medication Recommendations: Drug(s): Vancomycin 750 mg IV every 12 hours Duration 2 weeks Then Bactrim DS (800/160) BID Firm Stop (Yes/No): YES Stop IV Vancomycin after 2 weeks and then Start TMP/SMX DS BID indefinitely- will decide on length based on exam in clinic (favor prison suppression given retained portion of mesh) Anticipated Stop Date (note, the following date does not imply an order to stop on that date): 2 weeks for IV vancomycin, no anticipated stop date for Bactrim Labs/Frequency to be Monitored: CBC once a week , CMP once a week and Vancomycin trough twice a week with goal of 15- 20 Imaging Required Before Follow Up: No Summary of Consultation: 54 y.o. W w/ complicated endometriosis now s/p 21 prior abdominal surgeries with chronic draining sinus tract admitted for worsening of her chronic abdominal pain, underwent wound exploration and mesh excision with mesh culture growing MRSA. Complete mesh could not be surgically removed and the purulent clearly infected portion periumbilical was removed- however the epigastric portion is retained. Assessment: She will receive 2 wks of IV Vancomycin for the associated soft tissue MRSA infection. Would will heal via secondary intention. After the 2 week course of IV Vancomycin, the patient will be started on oral high dose Bactrim (DS BID) and this will be continued indefinitely. She will be followed by ID in clinic outpatient and then we can decide based on her course whether to stop antibiotics in thefuture. Follow Up Plan: fax results to [phone], follow up with Dr. Colin in 4 weeks, The ID service communicated with above provider who agrees to follow the patient, After discharge additional questions can be directed to the clinic at [phone] and Patient has been educated about the risks and benefits of IV antibiotics (OPAT) ID PROVIDER INSTRUCTIONS: PLEASE FORWARD THIS PLAN OF CARE NOTE TO Pia SIMPSON CASEYPaulina BALDWIN AND ADD PATIENT TO THE PRE-OPAT LIST COPY PASTE THE BELOW INTO THE PATIENT'S DISCHARGE INSTRUCTIONS: Important Information for Healthcare Providers: Antibiotic Plan: Antibiotics: IV Vancomycin (goal trough 15-20) for 2 wks then oral Bactrim DS BID Anticipated stop date for IV antibiotics: no stop date Infectious disease physician saw the patient during hospital admission: Dr. Colin Recommended Laboratory Monitoring: - CBC once weekly - Basic metabolic panel once weekly - Liver function test once weekly - Vancomycin trough levels twice weekly ALL RESULTS SHOULD BE FAXED TO INFECTIOUS DISEASE CLINIC AT: [phone] PLEASE CALL THE INFECTIOUS DISEASES CLINIC WITH ANY QUESTIONS AT: [phone] * Plan of Care - Jennifer Rasmussen RN - 04/25/2020 2:31 PM CDT Problem: Health Behavior: Goal: Understanding of discharge needs will improve Outcome: Progressing Problem: Lack of Knowledge: Goal: Knowledge of disease or condition will improve Outcome: Progressing Goal: Ability to state and carry out methods to decrease the pain will improve Outcome: Progressing Problem: Nutritional: Goal: Nutritional status will be supported Outcome: Progressing Problem: Fluid Volume: Goal: Maintenance of adequate hydration will improve Outcome: Progressing Problem: Physical Regulation: Goal: Complications related to the disease process, condition or treatment will be avoided or minimized Outcome: Progressing Goal: Ability to maintain clinical measurements within normal limits will improve Outcome: Progressing Problem: Health Behavior: Goal: Identification of resources available to assist in meeting health care needs will improve Outcome: Progressing Problem: Skin Integrity: Goal: Signs of wound healing will improve Outcome: Progressing Goal: Skin integrity will improve Outcome: Progressing Goal: Will show no evidence of further tissue damage Outcome: Progressing Problem: Activity: Goal: Mobility will improve Outcome: Progressing Problem: Nutritional: Goal: Dietary intake will improve Outcome: Progressing Goal: Ability to maintain a balanced intake and output will improve Outcome: Progressing Problem: Skin Integrity: Goal: Risk for impaired skin integrity will decrease Outcome: Progressing Goal: Ability to demonstrate warm and dry skin will improve Outcome: Progressing Goal: Circulation will improve to fullest extent possible Outcome: Progressing Goals: Clinical Goals for the Shift: Pain control, rest, monitor surgical site, I/O's Summary: Jennifer Rasmussen RN * Plan of Care - Xiomy Richards RN - 04/25/2020 2:11 PM CDT Report per DCAM: Patient not stable to discharge from the hospital. Impression: Removal infected abdominal wire mesh Referrals: gave list of agencies for care home Support: Transportation: F/U Appt: to be scheduled by [facility] team ADD: 04/27 Problem: Establish a safe discharge Goal: Implement a safe discharge home with family support and follow up. Case Management will follow for planning and referrals as needed. Xiomy Richards RN, Gaming Director * Assessment & Plan Note - Vinny Mcnair NP - 04/25/2020 9:31 AM CDT Associated Problem(s): Abdominal pain Scheduled Tylenol, PRN oxycodone changed from q4h to q3h Home flexeril, allergy to gabapentin 04/27 Will give Lyrica 50 mg daily. Allergy to gabapentin is unclear, mental status changes. 04/28/20 She feels the Lyrica is making her feel funny so she will not go home with Lyrica prescription. * Plan of Care - Sly Santiago RN - 04/25/2020 1:02 AM CDT Problem: Health Behavior: Goal: Understanding of discharge needs will improve Outcome: Progressing Problem: Activity: Goal: Risk for activity intolerance will decrease Outcome: Progressing Problem: Lack of Knowledge: Goal: Knowledge of disease or condition will improve Outcome: Progressing Goal: Ability to state and carry out methods to decrease the pain will improve Outcome: Progressing Problem: Nutritional: Goal: Nutritional status will be supported Outcome: Progressing Problem: Fluid Volume: Goal: Maintenance of adequate hydration will improve Outcome: Progressing Problem: Health Behavior: Goal: Ability to state signs and symptoms to report to health care provider will improve Outcome: Progressing Problem: Physical Regulation: Goal: Complications related to the disease process, condition or treatment will be avoided or minimized Outcome: Progressing Goal: Ability to maintain clinical measurements within normal limits will improve Outcome: Progressing Problem: Sensory: Goal: Ability to identify factors that increase the pain will improve Outcome: Progressing Goal: Ability to notify healthcare provider of pain before it becomes unmanageable or unbearable will improve Outcome: Progressing Goal: Pain level will decrease Outcome: Progressing Problem: Activity: Goal: Ability to avoid complications of mobility impairment will improve Outcome: Progressing Problem: Lack of Knowledge: Goal: Knowledge of the prescribed therapeutic regimen will improve Outcome: Progressing Goal: Ability to demonstrate proper wound care will improve Outcome: Progressing Problem: Health Behavior: Goal: Identification of resources available to assist in meeting health care needs will improve Outcome: Progressing Problem: Nutritional: Goal: Nutritional status will improve Outcome: Progressing Problem: Skin Integrity: Goal: Signs of wound healing will improve Outcome: Progressing Goal: Skin integrity will improve Outcome: Progressing Goal: Will show no evidence of further tissue damage Outcome: Progressing Problem: Activity: Goal: Mobility will improve Outcome: Progressing Problem: Lack of Knowledge: Goal: Understanding of ways to prevent future skin breakdown will improve Outcome: Progressing Goal: Ability to identify appropriate dietary choices will improve Outcome: Progressing Problem: Nutritional: Goal: Dietary intake will improve Outcome: Progressing Goal: Ability to maintain a balanced intake and output will improve Outcome: Progressing Problem: Skin Integrity: Goal: Risk for impaired skin integrity will decrease Outcome: Progressing Goal: Ability to demonstrate warm and dry skin will improve Outcome: Progressing Goal: Circulation will improve to fullest extent possible Outcome: Progressing Clinical Goals for the Shift: pain control, monitor labs, promote rest * Plan of Care - Telma Henriquez RN - 04/24/2020 10:21 AM CDT Problem: Health Behavior: Goal: Understanding of discharge needs will improve Outcome: Progressing Problem: Activity: Goal: Risk for activity intolerance will decrease Outcome: Progressing Problem: Lack of Knowledge: Goal: Knowledge of disease or condition will improve Outcome: Progressing Goal: Ability to state and carry out methods to decrease the pain will improve Outcome: Progressing Problem: Nutritional: Goal: Nutritional status will be supported Outcome: Progressing Problem: Fluid Volume: Goal: Maintenance of adequate hydration will improve Outcome: Progressing Problem: Health Behavior: Goal: Ability to state signs and symptoms to report to health care provider will improve Outcome: Progressing Problem: Physical Regulation: Goal: Complications related to the disease process, condition or treatment will be avoided or minimized Outcome: Progressing Goal: Ability to maintain clinical measurements within normal limits will improve Outcome: Progressing Problem: Physical Regulation: Goal: Complications related to the disease process, condition or treatment will be avoided or minimized Outcome: Progressing Goal: Ability to maintain clinical measurements within normal limits will improve Outcome: Progressing Problem: Sensory: Goal: Ability to identify factors that increase the pain will improve Outcome: Progressing Goal: Ability to notify healthcare provider of pain before it becomes unmanageable or unbearable will improve Outcome: Progressing Goal: Pain level will decrease Outcome: Progressing Goals: Clinical Goals for the Shift: pain control, monitor labs, promote rest Summary: Telma Henriquez RN * Plan of Care - Mariangel Miguel RN - 04/24/2020 12:58 AM CDT Goals: Clinical Goals for the Shift: pain control, monitor labs, promote rest Problem: Health Behavior: Goal: Understanding of discharge needs will improve Outcome: Progressing Problem: Activity: Goal: Risk for activity intolerance will decrease Outcome: Progressing Problem: Lack of Knowledge: Goal: Knowledge of disease or condition will improve Outcome: Progressing Goal: Ability to state and carry out methods to decrease the pain will improve Outcome: Progressing Problem: Nutritional: Goal: Nutritional status will be supported Outcome: Progressing Problem: Fluid Volume: Goal: Maintenance of adequate hydration will improve Outcome: Progressing Problem: Health Behavior: Goal: Ability to state signs and symptoms to report to health care provider will improve Outcome: Progressing Problem: Physical Regulation: Goal: Complications related to the disease process, condition or treatment will be avoided or minimized Outcome: Progressing Goal: Ability to maintain clinical measurements within normal limits will improve Outcome: Progressing Problem: Sensory: Goal: Ability to identify factors that increase the pain will improve Outcome: Progressing Goal: Ability to notify healthcare provider of pain before it becomes unmanageable or unbearable will improve Outcome: Progressing Goal: Pain level will decrease Outcome: Progressing Problem: Activity: Goal: Ability to avoid complications of mobility impairment will improve Outcome: Progressing Problem: Lack of Knowledge: Goal: Knowledge of the prescribed therapeutic regimen will improve Outcome: Progressing Goal: Ability to demonstrate proper wound care will improve Outcome: Progressing Problem: Health Behavior: Goal: Identification of resources available to assist in meeting health care needs will improve Outcome: Progressing Problem: Nutritional: Goal: Nutritional status will improve Outcome: Progressing Problem: Skin Integrity: Goal: Signs of wound healing will improve Outcome: Progressing Goal: Skin integrity will improve Outcome: Progressing Goal: Will show no evidence of further tissue damage Outcome: Progressing Problem: Activity: Goal: Mobility will improve Outcome: Progressing Problem: Lack of Knowledge: Goal: Understanding of ways to prevent future skin breakdown will improve Outcome: Progressing Goal: Ability to identify appropriate dietary choices will improve Outcome: Progressing Problem: Nutritional: Goal: Dietary intake will improve Outcome: Progressing Goal: Ability to maintain a balanced intake and output will improve Outcome: Progressing Problem: Skin Integrity: Goal: Risk for impaired skin integrity will decrease Outcome: Progressing Goal: Ability to demonstrate warm and dry skin will improve Outcome: Progressing Goal: Circulation will improve to fullest extent possible Outcome: Progressing Summary: Pain controlled with PRN medications; monitored aptt for heparin drip; low stimulation environment to promote rest. Will continue to monitor. * Assessment & Plan Note - Sarah Tinajero MD - 04/23/2020 1:56 PM CDT Associated Problem(s): History of DVT (deep vein thrombosis) - holding xarelto in post-operative period, will [...] PCP Dr. Albert. No indication for anticoagulation. 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 * Plan of Care - Telma Henriquez RN - 04/23/2020 10:05 AM CDT Problem: Health Behavior: Goal: Understanding of discharge needs will improve Outcome: Progressing Problem: Activity: Goal: Risk for activity intolerance will decrease Outcome: Progressing Problem: Lack of Knowledge: Goal: Knowledge of disease or condition will improve Outcome: Progressing Goal: Ability to state and carry out methods to decrease the pain will improve Outcome: Progressing Problem: Nutritional: Goal: Nutritional status will be supported Outcome: Progressing Problem: Fluid Volume: Goal: Maintenance of adequate hydration will improve Outcome: Progressing Problem: Physical Regulation: Goal: Complications related to the disease process, condition or treatment will be avoided or minimized Outcome: Progressing Goal: Ability to maintain clinical measurements within normal limits will improve Outcome: Progressing Problem: Sensory: Goal: Ability to identify factors that increase the pain will improve Outcome: Progressing Goal: Ability to notify healthcare provider of pain before it becomes unmanageable or unbearable will improve Outcome: Progressing Goal: Pain level will decrease Outcome: Progressing Problem: Lack of Knowledge: Goal: Knowledge of the prescribed therapeutic regimen will improve Outcome: Progressing Goal: Ability to demonstrate proper wound care will improve Outcome: Progressing Problem: Health Behavior: Goal: Identification of resources available to assist in meeting health care needs will improve Outcome: Progressing Problem: Nutritional: Goal: Nutritional status will improve Outcome: Progressing Goals: Clinical Goals for the Shift: pain control, monitor surgical site, VSS, rest Summary: Telma Henriquez RN * Plan of Care - Anabell Hunt RN - 04/22/2020 10:30 PM CDT Goals: Clinical Goals for the Shift: pain control, monitor surgical site, VSS, rest Problem: Health Behavior: Goal: Understanding of discharge needs will improve Outcome: Progressing Problem: Activity: Goal: Risk for activity intolerance will decrease Outcome: Progressing Problem: Lack of Knowledge: Goal: Knowledge of disease or condition will improve Outcome: Progressing Goal: Ability to state and carry out methods to decrease the pain will improve Outcome: Progressing Problem: Nutritional: Goal: Nutritional status will be supported Outcome: Progressing Problem: Fluid Volume: Goal: Maintenance of adequate hydration will improve Outcome: Progressing Problem: Health Behavior: Goal: Ability to state signs and symptoms to report to health care provider will improve Outcome: Progressing Problem: Physical Regulation: Goal: Complications related to the disease process, condition or treatment will be avoided or minimized Outcome: Progressing Goal: Ability to maintain clinical measurements within normal limits will improve Outcome: Progressing Problem: Sensory: Goal: Ability to identify factors that increase the pain will improve Outcome: Progressing Goal: Ability to notify healthcare provider of pain before it becomes unmanageable or unbearable will improve Outcome: Progressing Goal: Pain level will decrease Outcome: Progressing Problem: Activity: Goal: Ability to avoid complications of mobility impairment will improve Outcome: Progressing Problem: Lack of Knowledge: Goal: Knowledge of the prescribed therapeutic regimen will improve Outcome: Progressing Goal: Ability to demonstrate proper wound care will improve Outcome: Progressing Problem: Health Behavior: Goal: Identification of resources available to assist in meeting health care needs will improve Outcome: Progressing Problem: Nutritional: Goal: Nutritional status will improve Outcome: Progressing Problem: Skin Integrity: Goal: Signs of wound healing will improve Outcome: Progressing Goal: Skin integrity will improve Outcome: Progressing Goal: Will show no evidence of further tissue damage Outcome: Progressing Problem: Activity: Goal: Mobility will improve Outcome: Progressing Problem: Lack of Knowledge: Goal: Understanding of ways to prevent future skin breakdown will improve Outcome: Progressing Goal: Ability to identify appropriate dietary choices will improve Outcome: Progressing Problem: Nutritional: Goal: Dietary intake will improve Outcome: Progressing Goal: Ability to maintain a balanced intake and output will improve Outcome: Progressing Problem: Skin Integrity: Goal: Risk for impaired skin integrity will decrease Outcome: Progressing Goal: Ability to demonstrate warm and dry skin will improve Outcome: Progressing Goal: Circulation will improve to fullest extent possible Outcome: Progressing Summary: Discussed clinical goals for the shift. Pt resting in bed comfortably at this time, with call light in reach. VSS, will continue to monitor. * Anesthesia Post-op Follow-up Note - Kennedy Lea BS - 04/22/2020 5:26 PM CDT Patient: Madison Weinberg Procedure(s): ABDOMINAL MESH EXCISION 3.5X8 ABDOMINAL SKIN EXCISION 6X5.5 Patient location: [facility] Last vitals: Vitals: 04/22/20 1650 BP: 137/90 Pulse: 81 Resp: 14 Temp: 36.9 ??C (98.4 ??F) SpO2: 94% Level of consciousness: awake, alert and oriented Post-anesthesia pain: pain needs to be addressed Anesthetic complications: no Patient is lying in bed awake, and currently complaining of abdominal pain of 04/21. Nursing staff notified. * Plan of Care - Arabella Gustafson RN - 04/22/2020 5:03 PM CDT Problem: Health Behavior: Goal: Understanding of discharge needs will improve 04/22/2020 1704 by Arabella Gustafson RN Outcome: Progressing 04/22/2020 1703 by Arabella Gustafson RN Outcome: Progressing Problem: Activity: Goal: Risk for activity intolerance will decrease Outcome: Progressing Problem: Lack of Knowledge: Goal: Knowledge of disease or condition will improve Outcome: Progressing Goal: Ability to state and carry out methods to decrease the pain will improve Outcome: Progressing Problem: Nutritional: Goal: Nutritional status will be supported Outcome: Progressing Problem: Fluid Volume: Goal: Maintenance of adequate hydration will improve Outcome: Progressing Problem: Health Behavior: Goal: Ability to state signs and symptoms to report to health care provider will improve Outcome: Progressing Problem: Physical Regulation: Goal: Complications related to the disease process, condition or treatment will be avoided or minimized Outcome: Progressing Goal: Ability to maintain clinical measurements within normal limits will improve Outcome: Progressing Problem: Sensory: Goal: Ability to identify factors that increase the pain will improve Outcome: Progressing Goal: Ability to notify healthcare provider of pain before it becomes unmanageable or unbearable will improve Outcome: Progressing Goal: Pain level will decrease Outcome: Progressing Problem: Activity: Goal: Ability to avoid complications of mobility impairment will improve Outcome: Progressing Problem: Lack of Knowledge: Goal: Knowledge of the prescribed therapeutic regimen will improve Outcome: Progressing Goal: Ability to demonstrate proper wound care will improve Outcome: Progressing Problem: Health Behavior: Goal: Identification of resources available to assist in meeting health care needs will improve Outcome: Progressing Problem: Nutritional: Goal: Nutritional status will improve Outcome: Progressing Problem: Skin Integrity: Goal: Signs of wound healing will improve Outcome: Progressing Goal: Skin integrity will improve Outcome: Progressing Goal: Will show no evidence of further tissue damage Outcome: Progressing Goals: * Op Note - Ari Yeh MD - 04/22/2020 7:30 AM CDT [facility] Surgery Operative Report SURGEON: Ari Yeh MD SURGICAL TEAM: Surgeon(s) and Role: * Ari Yeh MD - Primary * Madonna Zacarias MD - Resident - Assisting * Elizabeth Anderson MD - Resident - Assisting DATE OF SURGERY : 04/22/2020 PREOPERATIVE DIAGNOSIS: Chronic draining sinus lower abdomen midline POSTOPERATIVE DIAGNOSIS: Mesh infection PROCEDURES: Abdominal wall mesh excision 3.5 cm long by 8 cm wide Excision skin subcutaneous tissue adipose tissue ellipse 6 cm x 5.5 cm x 3 cm deep Complexity statement: Prior onlay mesh with dense adherence to the anterior abdominal wall in this patient with chronic sinus tract infection from the lower abdomen to the skin. CT scan with concern for this extension into the abdominal wall and into the peritoneal cavity. This required meticulous dissection to identifythe mesh, excise it and not to enter the peritoneal cavity. INDICATION FOR PROCEDURE: The patient is a 54 y.o. female with a history of abdominal pain and bowel obstruction, underwent outside hospital exploration with bowel resection, reconstruction of the abdominal wall with primary fascial closure and onlay biologic mesh few years ago. Evaluated in the office for persistent chronic lower abdominal draining sinus that has not resolved. Also has persistent chronic abdominal pain which will not resolve with the surgical intervention today.. After risks, benefits, and alternativeswere discussed, the patient was posted and consented for a abdominal wall mesh excision with possible bowel resection and reconstruction may include synthetic mesh ANESTHESIA: General FINDINGS: Stitch abscess related to permanent suture lower midline abdominal wall Not incorporated biologic mesh lower abdomen excised, this was truncated from the upper abdominal biologic mesh that is incorporated and was left in situ Mesh sent for aerobic anaerobic and fungal culture OPERATIVE DETAILS The patient was brought to the OR and placed supine on the table with sequential compression devices in place, induction of anesthesia smooth, and was prepped and draped in a sterile fashion. A time-out was performed. A midline incision made with a knife. Sharp dissection was carried down to the underlying fascia. The skin subcutaneous tissue appeared to be densely adherent to the underlying fascia. Meticulous dissection was carried out to differentiate the fascia from the chronic overlying infection. The skin and subcutaneous tissue were excised in the dimensions as noted in the procedure above. After meticulous dissection the mesh was identified which was part of this chronic nonhealing process.This is excised in the dimensions above. The mesh extends the entire length of the abdominal wall but this was truncated after normal tissue was encountered with well-incorporated mesh. The mesh was s ent for culture along with the tissue that was excised. In the lower right aspect of the abdominal wall, there was concern for the excision to a be below the level of the fascia. This could not be a certain and the patient will be observed closely in the next 48 hours. If there is any ongoing enteric concern from the wound, the patient will be re-explored. The resultant wound was thoroughly washed with saline and Betadine and then packed with normal saline wet-to-dry dressing. Sponge, needle and instrument were correct x2. Incision type: Open Estimated Blood Loss: No blood loss documented. Intraoperative Fluids: 1500 mls Specimens: Order Name Source Comment Collection Info Order Time TISSUE AEROBIC AND ANAEROBIC CULTURE AND GRAM STAIN Abdominal Infected mesh 04/22/2020 10:04 AM Is patient in the OR? Yes MYCOLOGY (FUNGAL) CULTURE Abdominal Infected mesh 04/22/2020 10:04 AM Is patient in the OR? Yes TISSUE AEROBIC AND ANAEROBIC CULTURE AND GRAM STAIN Abdominal Infected mesh 04/22/2020 10:05 AM Is patient in the OR? Yes MYCOLOGY (FUNGAL) CULTURE Abdominal Infected mesh 04/22/2020 10:05 AM Is patient in the OR? Yes Implant: Nothing was implanted during the procedure Complications: None Condition on Discharge from the operating room was stable Ari Yeh MD Date: 04/22/2020 Time: 3:45 PM TEACHING ATTESTATION : I was present and directly participated in the entire procedure (including opening and closing). * Brief Op Note - Elizabeth Anderson MD - 04/22/2020 7:30 AM CDT Operative Progress Note Surgical Team: Surgeon(s) and Role: * Ari Yeh MD - Primary * Madonna Zacarias MD - Resident - Assisting * Elizabeth Anderson MD - Resident - Assisting Anesthesiologist: Luis Felipe Villafuerte MD CIRCULAR TANK COOPER: He Hunt CRNA Student Nurse Harness Cleaner: KATHARINE Nam Aviation Electronic Warfare Operator: Corry Gamez RN Aviation Electronic Warfare Operator Relief: Remi Orourke RN Scrub: ST Ana DATE OF SURGERY : 04/22/2020 Preoperative Diagnosis: Pre-op Diagnosis * Abdominal pain [R10.9] Postoperative Diagnosis: Post-op Diagnosis * Abdominal pain [R10.9] Procedure(s): Procedure(s) (LRB): ABDOMINAL MESH EXCISION 3.5X8 ABDOMINAL SKIN EXCISION 6X5.5 (N/A) Operative Findings: An elliptical incision was made around the sinus tract and this tract was dissected down and appeared to connect with an anchoring suture in the anterior abdominal wall on the right. Overlay mesh waspresent; this appeared to be a woven synthetic mesh. It was excised on the left and right of midline to the above dimensions. The skin excision was extended to a trear-drop shape to accommodate additional mesh excision. The midline was left relatively untampered owing to concern for underlying bowel. Overall this sinus appeared to be from a suture granuloma or possible infected mesh. There was noexpressed purulence and there was no overt evidence of EC fistula. Excised suture/ mesh was sent for culture. The wound was packed with WTD kerlix and local anesthetic infiltrated. Estimated Blood Loss: No blood loss documented. Intraoperative Fluids: 600 mls Specimens: Cultures as above Implants: Nothing was implanted during the procedure Blood/Blood Products Transfused: 0 mls Complications: None Condition on Discharge from the operating room was stable Elizabeth Anderson MD Date: 04/22/2020 Time: 10:06 AM TEACHING ATTESTATION : I was present and directly participated in the entire procedure (including opening and closing). Cosigned by Ari Yeh MD at 04/22/2020 3:50 PM CDT documented in this encounter Plan of Treatment Not on file documented as of this encounter Procedures Procedure Name Priority Date/Time Associated Diagnosis Comments VANCOMYCIN LEVEL TROUGH Timed 04/28/2020 1:11 AM CDT PROTIME-INR Routine 04/27/2020 9:12 PM CDT CBC WITHOUT DIFFERENTIAL Routine 04/27/2020 9:12 PM CDT PHOSPHORUS Routine 04/27/2020 9:12 PM CDT MAGNESIUM Routine 04/27/2020 9:12 PM CDT BASIC METABOLIC PANEL Routine 04/27/2020 9:12 PM CDT PROTIME-INR Routine 04/26/2020 10:42 PM CDT CBC WITHOUT DIFFERENTIAL Routine 04/26/2020 10:42 PM CDT PHOSPHORUS Routine 04/26/2020 10:42 PM CDT MAGNESIUM Routine 04/26/2020 10:42 PM CDT BASIC METABOLIC PANEL Routine 04/26/2020 10:42 PM CDT CBC WITHOUT DIFFERENTIAL Timed 04/26/2020 12:51 PM CDT US VEIN DUPLEX LOWER EXTREMITY BILATERAL COMPLETE IP Routine 04/26/2020 11:30 AM CDT APTT STAT 04/26/2020 8:09 AM CDT APTT Routine 04/26/2020 12:08 AM CDT PROTIME-INR Routine 04/26/2020 12:08 AM CDT CBC WITHOUT DIFFERENTIAL Routine 04/26/2020 12:08 AM CDT PHOSPHORUS Routine 04/26/2020 12:08 AM CDT MAGNESIUM Routine 04/26/2020 12:08 AM CDT VANCOMYCIN LEVEL TROUGH Routine 04/26/2020 12:08 AM CDT BASIC METABOLIC PANEL Routine 04/26/2020 12:08 AM CDT APTT Routine 04/25/2020 6:15 AM CDT PROTIME-INR Routine 04/25/2020 6:15 AM CDT CBC WITHOUT DIFFERENTIAL Routine 04/25/2020 6:15 AM CDT PHOSPHORUS Routine 04/25/2020 6:15 AM CDT MAGNESIUM Routine 04/25/2020 6:15 AM CDT BASIC METABOLIC PANEL Routine 04/25/2020 6:15 AM CDT APTT STAT 04/24/2020 6:44 AM CDT APTT STAT 04/24/2020 12:26 AM CDT APTT STAT 04/23/2020 6:39 PM CDT PROTIME-INR STAT 04/23/2020 6:39 PM CDT CBC WITHOUT DIFFERENTIAL STAT 04/23/2020 6:39 PM CDT PHOSPHORUS Routine 04/23/2020 6:39 PM CDT MAGNESIUM Routine 04/23/2020 6:39 PM CDT BASIC METABOLIC PANEL Routine 04/23/2020 6:39 PM CDT DIFFERENTIAL AUTO Routine 04/23/2020 4:2 4 AM CDT CBC WITH AUTO DIFFERENTIAL Routine 04/23/2020 4:24 AM CDT PHOSPHORUS Routine 04/23/2020 4:24 AM CDT MAGNESIUM Routine 04/23/2020 4:24 AM CDT COMPREHENSIVE METABOLIC PANEL Routine 04/23/2020 4:24 AM CDT TISSUE AEROBIC AND ANAEROBIC CULTURE AND GRAM STAIN Routine 04/22/2020 10:05 AM CDT TISSUE AEROBIC AND ANAEROBIC CULTURE AND GRAM STAIN Routine 04/22/2020 10:05 AM CDT MYCOLOGY (FUNGAL) CULTURE Routine 04/22/2020 10:05 AM CDT MYCOLOGY (FUNGAL) CULTURE Routine 04/22/2020 10:05 AM CDT EXPLORATION WOUND 04/22/2020 7:3 5 AM CDT Abdominal pain documented in this encounter Results * [place] [address]/28 (04/28/2020 1:11 AM CDT) Vancomycin trough 12.0 10.0 - 20.9 mcg/mL JAILYN SHABAZZ Blood specimen (specimen) 04/28/2020 1:11 AM CDT 04/28/2020 1:25 AM CDT Narrative JAILYN SHABAZZ - 04/28/2020 2:50 AM CDT Due at 0100 04/28 us Catherine Sharma NP LAB BLOOD ORDERABLES F inal Result [facility] Department [place] [address] * Protime-INR (04/27/2020 9:12 PM CDT) PT 12.6 8.6 - 13.0 sec [facility] INR 1.2 0.8 - 1.2 [facility] Comment: Interpretive data Oral anticoagulant therapeutic ranges: Venous thromboembolism prophylaxis or treatment: 2.0-3.0 CARDIOLOGY Standard range: 2.0-3.0 High-intensity range: 2.5-3.5 Refer to indication-specific guidelines for appropriate target ranges for prosthetic heart valve replacement. Current interpretive data was last revised on 2019. Blood specimen (specimen) 04/27/2020 9:12 PM CDT 04/27/2020 10:48 PM CDT Vinny Mcnair RISK CONTROL REPRESENTATIVE LAB BLOOD ORDERABLES Final Result Performing Organization Address [facility] de Phone Number [facility] [place] [address] * Phosphorus (04/27/2020 9:12 PM CDT) Phosphorus, pl 3.0 2.3 - 4.5 mg/dL [facility] Blood specimen (specimen) 04/27/2020 9:12 PM CDT 04/27/2020 10:52 PM CDT Vinny Mcnair NP LAB BLOOD ORDERABLES Final Result Performing Organization Address [facility] de Phone Number [facility] [place] [facility] [address] * Magnesium (04/27/2020 9:12 PM CDT) Magnesium 1.7 1.4 - 2.5 mg/dL [facility] Blood specimen (specimen) 04/27/2020 9:12 PM CDT 04/27/2020 10:52 PM CDT Vinny Mcnair NP LAB BLOOD ORDERABLES Final Result Performing Organization Address [facility]/ZIP Co de Phone Number [facility] Department [place] [address] * Basic metabolic panel (04/27/2020 9:12 PM CDT) Pathologist [facility] [place] Sodium 137 135 - 145 mmol/L [facility] Potassium, pl 4.0 3.3 - 4.9 mmol/L [facility] Chloride 105 97 - 110 mmol/L [facility] CO2 26 22 - 32 mmol/L [facility] Anion gap 6 2 - 15 mmol/L [facility] BUN 9 8 - 25 mg/dL [facility] Creatinine 0.79 0.60 - 1.10 mg/dL [facility] Glucose 101 70 - 199 mg/dL [facility] Comment: Interpretive Data Fasting glucose >/= 126 [...] 2017. Calcium 8.9 8.5 - 10.3 mg/dL [facility] Blood specimen (specimen) 04/27/2020 9:12 PM CDT 04/27/2020 10:52 PM CDT us Vinny Mcnair NP LAB BLOOD ORDERABLES Final Result Performing Organization Address [facility] Co de Phone Number [facility] Department [place] [address] * (ABNORMAL) CBC without differential (04/27/2020 9:12 PM CDT) Pathologist [facility] [place] WBC 5.9 3.8 - 9.9 K/cumm [facility] Hgb 8.8(L) 11.9 - 15.5 g/dL [facility] Hct 27.1(L) 35.6 - 45.5 % [facility] Plt 300 150 - 400 K/cumm [facility] MPV 9.8 9.1 - 12.3 fL [facility] RBC 3.00(L) 3.90 - 5.20 M/cumm [facility] MCV 90.3 81.3 - 96.4 fL [facility] MCH 29.3 27.1 - 33.3 pg [facility] MCHC 32.5 32.3 - 35.7 g/dL [facility] RDW CV 14.4 11.1 - 14.9 % [facility] RDW SD 47.3 35.7 - 48.1 fL [facility] NRBC abs 0.00 0.00 - 0.01 K/cumm [facility] Blood specimen (specimen) 04/27/2020 9:12 PM CDT 04/27/2020 10:52 PM CDT Narrative [facility] - 04/27/2020 11:02 PM CDT Until heparin is discontinued. Vinny Mcnair NP LAB BLOOD ORDERABLES Final Result [facility] [place] [address] * (ABNORMAL) Protime-INR (04/26/2020 10:42 PM CDT) [facility] PT 13.4(H) 8.6 - 13.0 sec [facility] INR 1.2 0.8 - 1.2 [facility] Comment: Interpretive data Oral anticoagulant therapeutic ranges: Venous thromboembolism prophylaxis or treatment: 2.0-3.0 CARDIOLOGY Standard range: 2.0-3.0 High-intensity range: 2.5-3.5 Refer to indication-specific guidelines for appropriate target ranges for prosthetic heart valve replacement. Current interpretive data was last revised on 2019. Blood specimen (specimen) 04/26/2020 10:42 PM CDT 04/26/2020 11:57 PM CDT Vinny Govind Anastas RISK CONTROL REPRESENTATIVE LAB BLOOD ORDERABLES Final Result Performing Organization Address City/[facility]/Z[place] [address] * Phosphorus (04/26/2020 10:42 PM CDT) [facility] Phosphorus, pl 2.6 2.3 - 4.5 mg/dL [facility] Blood specimen (specimen) 04/26/2020 10:42 PM CDT 04/26/2020 11:32 PM CDT Vinny Mcnair RISK CONTROL REPRESENTATIVE LAB BLOOD ORDERABLES Final Result Performing Organization Address [facility] Co de Phone Number [facility] [place] [address] * Magnesium (04/26/2020 10:42 PM CDT) [facility] Magnesium 1.8 1.4 - 2.5 mg/dL [facility] Blood specimen (specimen) 04/26/2020 10:42 PM CDT 04/26/2020 11:32 PM CDT Vinny Mcnair RISK CONTROL REPRESENTATIVE LAB BLOOD ORDERABLES Final Result Performing Organization Address [facility] Co de Phone Number [facility] [place] [address] * (ABNORMAL) Basic metabolic panel (04/26/2020 10:42 PM CDT) [facility] Sodium 139 135 - 145 mmol/L [facility] Potassium, pl 3.3 3.3 - 4.9 mmol/L [facility] Chloride 107 97 - 110 mmol/L [facility] CO2 25 22 - 32 mmol/L [facility] Anion gap 7 2 - 15 mmol/L [facility] BUN 6(L) 8 - 25 mg/dL [facility] Creatinine 0.72 0.60 - 1.10 mg/dL [facility] Glucose 106 70 - 199 mg/dL [facility] Comment: Interpretive Data Fasting glucose >/= 126 [...] 2017. Calcium 8.9 8.5 - 10.3 mg/dL [facility] Blood specimen (specimen) 04/26/2020 10:42 PM CDT 04/26/2020 11:32 PM CDT us Vinny Mcnair RISK CONTROL REPRESENTATIVE LAB BLOOD ORDERABLES Final Result [facility] Department [place] [address] * (ABNORMAL) CBC without differential (04/26/2020 10:42 PM CDT) WBC 7.7 3.8 - 9.9 K/cumm [facility] Hgb 9.4(L) 11.9 - 15.5 g/dL [facility] Hct 29.0(L) 35.6 - 45.5 % [facility] Plt 280 150 - 400 K/cumm [facility] MPV 9.8 9.1 - 12.3 fL [facility] RBC 3.23(L) 3.90 - 5.20 M/cumm [facility] MCV 89.8 81.3 - 96.4 fL [facility] MCH 29.1 27.1 - 33.3 pg [facility] MCHC 32.4 32.3 - 35.7 g/dL [facility] RDW CV 14.2 11.1 - 14.9 % [facility] RDW SD 46.7 35.7 - 48.1 fL [facility] NRBC abs 0.00 0.00 - 0.01 K/cumm [facility] Blood specimen (specimen) 04/26/2020 10:42 PM CDT 04/26/2020 11:32 PM CDT Narrative [facility] - 04/26/2020 11:42 PM CDT Until heparin is discontinued. Vinny Mcnair NP LAB BLOOD ORDERABLES Final Result Performing Organization Address [facility]/ZIP Co de Phone Number [facility] Department [place] [employer] [place] [address] * (ABNORMAL) CBC without differential (04/26/2020 12:51 PM CDT) WBC 7.2 3.8 - 9.9 K/cumm [facility] Hgb 9.2(L) 11.9 - 15.5 g/dL [facility] Hct 28.8(L) 35.6 - 45.5 % [facility] Plt 289 150 - 400 K/cumm [facility] MPV 9.5 9.1 - 12.3 fL [facility] RBC 3.21(L) 3.90 - 5.20 M/cumm [facility] MCV 89.7 81.3 - 96.4 fL [facility] MCH 28.7 27.1 - 33.3 pg [facility] MCHC 31.9(L) 32.3 - 35.7 g/dL [facility] RDW CV 14.1 11.1 - 14.9 % [facility] RDW SD 46.4 35.7 - 48.1 fL [facility] NRBC abs 0.00 0.00 - 0.01 K/cumm [facility] Blood specimen (specimen) 04/26/2020 12:51 PM CDT 04/26/2020 1:04 PM CDT Ari Yeh MD LAB BLOOD ORDERABLES Final R esult Performing Organization Address City/[facility]/ZIP Co de Phone Number [facility] Department [place] [address] * US Vein Duplex Lower Extremity Bilateral Complete (04/26/2020 11:30 AM CDT) Anatomical Region Laterality Modality Vascular Bilateral Ultrasound 04/26/2020 11:0 5 AM CDT Narrative 04/26/2020 7:42 PM CDT [facility] - Department of Vascular Surgery, Vascular Laboratory [address] [place] [address] Lower Extremity Venous Ultrasound Report Patient Name: MADISON WEINBERG J : 1965 (54y 4m) Study Date: 04/26/2020 11:05:20 AM Gender: F Tech: Location: [id number] Ref.Provider: ARI YEH Quality: Adequate Order Provider: LIBBY DON Procedures: Vascular Report: Venous Duplex imaging was performed bilaterally in the lower extremities. The common femoral, femoral, popliteal, posterior tibial, peroneal veins were evaluated for patency, spontaneity and phasicity with Doppler, compression and augmentation maneuvers. Great saphenous vein proximal at the junction was evaluated with compression maneuvers. Indications: bilateral edema. Findings: Performing Health Program Director: Lou Ward RVT. Bilateral: Venous Doppler signals in the bilateral lower extremity are within normal limits for spontaneity and phasicity and respond normally to augmentation maneuvers. No evidence of deep vein thrombus by duplex, proximal to the calf. Conclusions: 1. There is no evidence of acute deep vein thrombosis in the lower extremities bilaterally. Noninvasive venous studies cannot rule out isolated calf vein obstruction. History: HX of DVT. Previous Studies: No previous studies for comparison. Disclaimer: The signing physician has reviewed all images pertaining to this test. These images and this report will be retained in the patient chart by the Vascular Laboratory for the legally required time period. This chart constitutes the legal record of any testing performed. Electronically Signed By: Manuel Valero MD [facility] [phone] 2020-04-26 19:42:00 CDT CC: CC: Procedure Note Manuel Valero MD - 04/26/2020 [employer] - Department of Vascular Surgery,Vascular Laboratory [address] [place] [address] Lower Extremity Venous Ultrasound Report Patient Name: MADISON WEINBERG JPatient ID: [id number] : 1965 (54y 4m)Study Date: 04/26/2020 11:05:20 AM Gender: FAccession #: [id number] Tech: DRLocation: [id number] Ref.Provider: ARI YEHQuality: Adequate Order Provider: Angelita DON #: [id number] Procedures: Vascular Report: Venous Duplex imaging was performed bilaterally in the lower extremities.The common femoral, femoral, popliteal, posterior tibial, peroneal veins wereevaluated for patency, spontaneity and phasicity with Doppler, compression and augmentationmaneuvers. Great saphenous vein proximal at the junction was evaluated with compressionmaneuvers. Indications: bilateral edema. Findings: Performing Health Program Director: Lou Ward RVT. Bilateral: Venous Doppler signals in the bilateral lower extremity are within normallimits for spontaneity and phasicity and respond normally to augmentation maneuvers.No evidence of deep vein thrombus by duplex, proximal to the calf. Conclusions: 1. There is no evidence of acute deep vein thrombosis in the lowerextremities bilaterally. Noninvasive venous studies cannot rule out isolated calf veinobstruction. History: HX of DVT. Previous Studies: No previous studies for comparison. Disclaimer: The signing physician has reviewed all images pertaining to this test.These images and this report will be retained in the patient chart by the VascularLaboratory for the legally required time period. This chart constitutes the legal record ofany testing performed. Electronically Signed By: Manuel Valero MD [facility] [phone] 2020-04-26 19:42:00 CDT CC: CC: Libby Don RISK CONTROL REPRESENTATIVE IMG US PROCEDURES Final Res ult * (ABNORMAL) aPTT (04/26/2020 8:09 AM CDT) aPTT 81(H) 25 - 37 sec [facility] Comment: Interpretive data Heparin therapeutic range: 60-90 seconds Range based on correlation with therapeutic heparin activity range of 0.3-0.7 units/ml. Current interpretive data was last revised on 2019. Blood specimen (specimen) 04/26/2020 8:09 AM CDT 04/26/2020 8:25 AM CDT Narrative [facility] - 04/26/2020 8:47 AM CDT Draw STAT PTT 6 hrs after initial heparin bolus, after each rate change, and every 6 hours until 2 consecutive PTTs are within therapeutic range. Once two consecutive PTT's are therapeutic (60-94.9 seconds), then draw PTT every AM until heparin is discontinued. Vinny Mcnair NP LAB BLOOD ORDERABLES Final Result Performing Organization Address City/[facility]/ZIP Co de Phone Number [facility] Department [place] [address] * (ABNORMAL) Vancomycin, trough (04/26/2020 12:08 AM CDT) Vancomycin trough 7.3(L) 10.0 - 20.9 mcg/mL [facility] Blood specimen (specimen) 04/26/2020 12:08 AM CDT 04/26/2020 12:23 AM CDT Ari Yeh MD LAB BLOOD ORDERABLES Final R esult Performing Organization Address [facility]/ZIP Co de Phone Number [facility] [place] [address] * (ABNORMAL) aPTT (04/26/2020 12:08 AM CDT) aPTT 50(H) 25 - 37 sec [facility] Comment: Interpretive data Heparin therapeutic range: 60-90 seconds Range based on correlation with therapeutic heparin activity range of 0.3-0.7 units/ml. Current interpretive data was last revised on 2019. Blood specimen (specimen) 04/26/2020 12:08 AM CDT 04/26/2020 12:22 AM CDT Ari Yeh MD LAB BLOOD ORDERABLES Final R esult Performing Organization Address City/[facility]/ZIP Co de Phone Number [facility] [place] [address] * (ABNORMAL) Protime-INR (04/26/2020 12:08 AM CDT) [facility] PT 14.0(H) 8.6 - 13.0 sec [facility] INR 1.3(H) 0.8 - 1.2 [facility] Comment: Interpretive data Oral anticoagulant therapeutic ranges: Venous thromboembolism prophylaxis or treatment: 2.0-3.0 CARDIOLOGY Standard range: 2.0-3.0 High-intensity range: 2.5-3.5 Refer to indication-specific guidelines for appropriate target ranges for prosthetic heart valve replacement. Current interpretive data was last revised on 2019. Blood specimen (specimen) 04/26/2020 12:08 AM CDT 04/26/2020 12:22 AM CDT Vinny Mcnair NP LAB BLOOD ORDERABLES Final Result Performing Organization Address [facility] [place] [address] * Phosphorus (04/26/2020 12:08 AM CDT) [facility] Phosphorus, pl 3.3 2.3 - 4.5 mg/dL [facility] Blood specimen (specimen) 04/26/2020 12:08 AM CDT 04/26/2020 12:23 AM CDT Vinny Mcnair NP LAB BLOOD ORDERABLES Final Result Performing Organization Address City/[facility] Co de Phone Number [facility] [place] [address] * Magnesium (04/26/2020 12:08 AM CDT) [facility] Magnesium 1.8 1.4 - 2.5 mg/dL [facility] Blood specimen (specimen) 04/26/2020 12:08 AM CDT 04/26/2020 12:23 AM CDT Vinny Mcnair RISK CONTROL REPRESENTATIVE LAB BLOOD ORDERABLES Final Result [facility] Department [place] [address] * (ABNORMAL) Basic metabolic panel (04/26/2020 12:08 AM CDT) [facility] Sodium 138 135 - 145 mmol/L [facility] Potassium, pl 4.0 3.3 - 4.9 mmol/L [facility] Chloride 104 97 - 110 mmol/L [facility] CO2 27 22 - 32 mmol/L [facility] Anion gap 7 2 - 15 mmol/L [facility] BUN 7(L) 8 - 25 mg/dL [facility] Creatinine 0.88 0.60 - 1.10 mg/dL [facility] Glucose 106 70 - 199 mg/dL [facility] Comment: Interpretive Data Fasting glucose >/= 126 [...] 2017. Calcium 8.6 8.5 - 10.3 mg/dL [facility] Blood specimen (specimen) 04/26/2020 12:08 AM CDT 04/26/2020 12:23 AM CDT Vinny Mcnair NP LAB BLOOD ORDERABLES Final Result Performing Organization Address City/[facility]/ZIP Co de Phone Number [facility] [place] [address] * (ABNORMAL) CBC without differential (04/26/2020 12:08 AM CDT) [facility] WBC 7.3 3.8 - 9.9 K/cumm [facility] Hgb 9.1(L) 11.9 - 15.5 g/dL [facility] Hct 27.8(L) 35.6 - 45.5 % [facility] Plt 266 150 - 400 K/cumm [facility] MPV 9.5 9.1 - 12.3 fL [facility] RBC 3.15(L) 3.90 - 5.20 M/cumm [facility] MCV 88.3 81.3 - 96.4 fL [facility] MCH 28.9 27.1 - 33.3 pg [facility] MCHC 32.7 32.3 - 35.7 g/dL [facility] RDW CV 14.2 11.1 - 14.9 % [facility] RDW SD 45.9 35.7 - 48.1 fL [facility] NRBC abs 0.00 0.00 - 0.01 K/cumm [facility] Blood specimen (specimen) 04/26/2020 12:08 AM CDT 04/26/2020 12:24 AM CDT Narrative [facility] - 04/26/2020 12:33 AM CDT Until heparin is discontinued. Vinny Mcnair NP LAB BLOOD ORDERABLES Final Result [facility] Department [place] [address] * aPTT (04/25/2020 6:15 AM CDT) [facility] aPTT 30 25 - 37 sec [facility] Comment: Interpretive data Heparin therapeutic range: 60-90 seconds Range based on correlation with therapeutic heparin activity range of 0.3-0.7 units/ml. Current interpretive data was last revised on 2019. Blood specimen (specimen) 04/25/2020 6:15 AM CDT 04/25/2020 6:45 AM CDT Ari Yeh MD LAB BLOOD ORDERABLES Final R esult Performing Organization Address [facility] Co de Phone Number [facility] [place] [address] * Protime-INR (04/25/2020 6:15 AM CDT) Pathologist [facility] PT 11.3 8.6 - 13.0 sec [facility] INR 1.0 0.8 - 1.2 [facility] Comment: Interpretive data Oral anticoagulant therapeutic ranges: Venous thromboembolism prophylaxis or treatment: 2.0-3.0 CARDIOLOGY Standard range: 2.0-3.0 High-intensity range: 2.5-3.5 Refer to indication-specific guidelines for appropriate target ranges for prosthetic heart valve replacement. Current interpretive data was last revised on 2019. Blood specimen (specimen) 04/25/2020 6:15 AM CDT 04/25/2020 6:42 AM CDT Vinny Mcnair NP LAB BLOOD ORDERABLES Final Result Performing Organization Address [facility] de Phone Number [facility] [place] [employer] [place] [address] * Phosphorus (04/25/2020 6:15 AM CDT) Pathologist [facility] [place] Phosphorus, pl 3.3 2.3 - 4.5 mg/dL [facility] Blood specimen (specimen) 04/25/2020 6:15 AM CDT 04/25/2020 6:35 AM CDT Vinny Mcnair NP LAB BLOOD ORDERABLES Final Result Performing Organization Address [facility] Co de Phone Number [facility] [place] [address] * Magnesium (04/25/2020 6:15 AM CDT) Magnesium 2.1 1.4 - 2.5 mg/dL [facility] Blood specimen (specimen) 04/25/2020 6:15 AM CDT 04/25/2020 6:35 AM CDT Vinny Mcnair NP LAB BLOOD ORDERABLES Final Result Performing Organization Address City/[facility] Co de Phone Number [facility] [place] [address] * (ABNORMAL) Basic metabolic panel (04/25/2020 6:15 AM CDT) Pathologist [facility] [place] Sodium 140 135 - 145 mmol/L [facility] Potassium, pl 3.7 3.3 - 4.9 mmol/L [facility] Chloride 102 97 - 110 mmol/L [facility] CO2 27 22 - 32 mmol/L [facility] Anion gap 11 2 - 15 mmol/L [facility] BUN 4(L) 8 - 25 mg/dL [facility] Creatinine 0.69 0.60 - 1.10 mg/dL [facility] Glucose 105 70 - 199 mg/dL [facility] Comment: Interpretive Data Fasting glucose >/= 126 [...] interpretive data was last revised 2017. Calcium 9.8 8.5 - 10.3 mg/dL [facility] Blood specimen (specimen) 04/25/2020 6:15 AM CDT 04/25/2020 6:35 AM CDT Vinny Mcnair NP LAB BLOOD ORDERABLES Final Result Performing Organization Address City/[facility] de Phone Number [facility] Department [place] [address] * CBC without differential (04/25/2020 6:15 AM CDT) Pathologist [facility] WBC 8.7 3.8 - 9.9 K/cumm [facility] Hgb 12.0 11.9 - 15.5 g/dL [facility] Hct 37.0 35.6 - 45.5 % [facility] Plt 320 150 - 400 K/cumm [facility] MPV 9.8 9.1 - 12.3 fL [facility] RBC 4.12 3.90 - 5.20 M/cumm [facility] MCV 89.8 81.3 - 96.4 fL [facility] MCH 29.1 27.1 - 33.3 pg [facility] MCHC 32.4 32.3 - 35.7 g/dL [facility] RDW CV 14.1 11.1 - 14.9 % [facility] RDW SD 46.2 35.7 - 48.1 fL [facility] NRBC abs 0.00 0.00 - 0.01 K/cumm [facility] Blood specimen (specimen) 04/25/2020 6:15 AM CDT 04/25/2020 6:37 AM CDT Narrative [facility] - 04/25/2020 6:48 AM CDT Until heparin is discontinued. Vinny Mcnair NP LAB BLOOD ORDERABLES Final Result Performing Organization Address [facility] Co de Phone Number [facility] [place] [address] * (ABNORMAL) aPTT (04/24/2020 6:44 AM CDT) Pathologist [facility] [place] aPTT 138(H) 25 - 37 sec [facility] Comment: Interpretive data Heparin therapeutic range: 60-90 seconds Range based on correlation with therapeutic heparin activity range of 0.3-0.7 units/ml. Current interpretive data was last revised on 2019. Blood specimen (specimen) 04/24/2020 6:44 AM CDT 04/24/2020 7:58 AM CDT Narrative [facility] - 04/24/2020 8:42 AM CDT Draw STAT PTT 6 hrs after initial heparin bolus, after each rate change, and every 6 hours until 2 consecutive PTTs are within therapeutic range. Once two consecutive PTT's are therapeutic (60-94.9 seconds), then draw PTT every AM until heparin is discontinued. Vinyn Mcnair NP LAB BLOOD ORDERABLES Final Result Performing Organization Address [facility]/ZIP Co de Phone Number [facility] [place] [place] [address] * (ABNORMAL) aPTT (04/24/2020 12:26 AM CDT) aPTT 64(H) 25 - 37 sec [facility] Comment: Interpretive data Heparin therapeutic range: 60-90 seconds Range based on correlation with therapeutic heparin activity range of 0.3-0.7 units/ml. Current interpretive data was last revised on 2019. Blood specimen (specimen) 04/24/2020 12:26 AM CDT 04/24/2020 1:07 AM CDT Narrative [facility] - 04/24/2020 1:44 AM CDT Draw STAT PTT 6 hrs after initial heparin bolus, after each rate change, and every 6 hours until 2 consecutive PTTs are within therapeutic range. Once two consecutive PTT's are therapeutic (60-94.9 seconds), then draw PTT every AM until heparin is discontinued. Vinny Mcnair NP LAB BLOOD ORDERABLES Final Result Performing Organization Address City/[facility]/ZIP Co de Phone Number [facility] [place] [place] [address] * (ABNORMAL) Phosphorus (04/23/2020 6:39 PM CDT) Pathologist [facility] [place] Phosphorus, pl 1.7(L) 2.3 - 4.5 mg/dL [facility] Blood specimen (specimen) 04/23/2020 6:39 PM CDT 04/23/2020 7:10 PM CDT Vinny Mcnair RISK CONTROL REPRESENTATIVE LAB BLOOD ORDERABLES Final Result Performing Organization Address City/[facility]/ZIP Co de Phone Number [facility] Department [place] [address] * Magnesium (04/23/2020 6:39 PM CDT) Pathologist [facility] [place] Magnesium 1.7 1.4 - 2.5 mg/dL [facility] Blood specimen (specimen) 04/23/2020 6:39 PM CDT 04/23/2020 7:10 PM CDT Vinny Mcnair NP LAB BLOOD ORDERABLES Final Result Performing Organization Address [facility] de Phone Number [facility] Department [place] [address] * Basic metabolic panel (04/23/2020 6:39 PM CDT) Pathologist [facility] [place] Sodium 138 135 - 145 mmol/L [facility] Potassium, pl 3.7 3.3 - 4.9 mmol/L [facility] Chloride 105 97 - 110 mmol/L [facility] CO2 24 22 - 32 mmol/L [facility] Anion gap 9 2 - 15 mmol/L [facility] BUN 11 8 - 25 mg/dL [facility] Creatinine 0.73 0.60 - 1.10 mg/dL [facility] Glucose 105 70 - 199 mg/dL [facility] Comment: Interpretive Data Fasting glucose >/= 126 [...] 2017. Calcium 8.8 8.5 - 10.3 mg/dL [facility] Blood specimen (specimen) 04/23/2020 6:39 PM CDT 04/23/2020 7:10 PM CDT Vinny Mcnair NP LAB BLOOD ORDERABLES Final Result Performing Organization Address [facility] de Phone Number [facility] [place] [employer] [place] [address] * aPTT (04/23/2020 6:39 PM CDT) aPTT 32 25 - 37 sec [facility] Comment: Interpretive data Heparin therapeutic range: 60-90 seconds Range based on correlation with therapeutic heparin activity range of 0.3-0.7 units/ml. Current interpretive data was last revised on 2019. Blood specimen (specimen) 04/23/2020 6:39 PM CDT 04/23/2020 7:08 PM CDT Narrative [facility] - 04/23/2020 7:19 PM CDT Unless preformed in the last 48 hours. Draw prior to heparin administration. Vinny Mcnair NP LAB BLOOD ORDERABLES Final Result Performing Organization Address [facility] [place] [address] * Protime-INR (04/23/2020 6:39 PM CDT) PT 12.1 8.6 - 13.0 sec [facility] INR 1.1 0.8 - 1.2 [facility] Comment: Interpretive data Oral anticoagulant therapeutic ranges: Venous thromboembolism prophylaxis or treatment: 2.0-3.0 CARDIOLOGY Standard range: 2.0-3.0 High-intensity range: 2.5-3.5 Refer to indication-specific guidelines for appropriate target ranges for prosthetic heart valve replacement. Current interpretive data was last revised on 2019. Blood specimen (specimen) 04/23/2020 6:39 PM CDT 04/23/2020 7:08 PM CDT Narrative [facility] - 04/23/2020 7:19 PM CDT Unless preformed in the last 48 hours. Draw prior to heparin administration. Vinny Mcnair NP LAB BLOOD ORDERABLES Final Result Performing Organization Address City/[facility]/ZIP Co de Phone Number [facility] [place] [address] * (ABNORMAL) CBC without differential (04/23/2020 6:39 PM CDT) WBC 9.6 3.8 - 9.9 K/cumm [facility] Hgb 10.4(L) 11.9 - 15.5 g/dL [facility] Hct 32.8(L) 35.6 - 45.5 % [facility] Plt 300 150 - 400 K/cumm [facility] MPV 9.8 9.1 - 12.3 fL [facility] RBC 3.62(L) 3.90 - 5.20 M/cumm [facility] MCV 90.6 81.3 - 96.4 fL [facility] MCH 28.7 27.1 - 33.3 pg [facility] MCHC 31.7(L) 32.3 - 35.7 g/dL [facility] RDW CV 14.2 11.1 - 14.9 % [facility] RDW SD 47.5 35.7 - 48.1 fL [facility] NRBC abs 0.00 0.00 - 0.01 K/cumm [facility] Blood specimen (specimen) 04/23/2020 6:39 PM CDT 04/23/2020 7:09 PM CDT Narrative [facility] - 04/23/2020 7:18 PM CDT Unless preformed in the last 48 hours. Draw prior to heparin administration. Vinny Mcnair NP LAB BLOOD ORDERABLES Final Result Performing Organization Address [facility]/ZIP Co de Phone Number [facility] [place] [address] * Phosphorus (04/23/2020 4:24 AM CDT) [facility] Phosphorus, pl 3.2 2.3 - 4.5 mg/dL [facility] Blood specimen (specimen) 04/23/2020 4:24 AM CDT 04/23/2020 4:43 AM CDT Ari Tish Yeh MD LAB BLOOD ORDERABLES Final R esult Performing Organization Address City/[facility]/ZIP Co de Phone Number [facility] [place] [address] * Magnesium (04/23/2020 4:24 AM CDT) [facility] Magnesium 1.8 1.4 - 2.5 mg/dL [facility] Blood specimen (specimen) 04/23/2020 4:24 AM CDT 04/23/2020 4:43 AM CDT Ari Tish Yeh MD LAB BLOOD ORDERABLES Final R esult Performing Organization Address City/[facility] Co de Phone Number [facility] Department [place] [address] * (ABNORMAL) Differential, auto (04/23/2020 4:24 AM CDT) [facility] Neutrophil abs 8.3(H) 1.7 - 6.5 K/cumm [facility] Imm gran abs 0.0 0.0 - 0.1 K/cumm [facility] Lymphocyte abs 1.3 0.8 - 3.3 K/cumm [facility] Monocyte abs 0.5 0.2 - 0.8 K/cumm [facility] Eosinophil abs 0.0 0.0 - 0.5 K/cumm [facility] Basophil abs 0.0 0.0 - 0.1 K/cumm [facility] Neutrophil pct 82.1 % [facility] Comment: Interpretive Data Percent cell count reference ranges are not reported, since discordance with absolute values may lead to misinterpretation of CBC data. Current Interpretive Data was last revised on 2017. Imm gran pct 0.2 % [facility] Comment: Interpretive Data Percent cell count reference ranges are not reported, since discordance with absolute values may lead to misinterpretation of CBC data. Current Interpretive Data was last revised on 2017. Lymphocyte pct 12.9 % [facility] Comment: Interpretive Data Percent cell count reference ranges are not reported, since discordance with absolute values may lead to misinterpretation of CBC data. Current Interpretive Data was last revised on 2017. Monocyte pct 4.7 % [facility] Comment: Interpretive Data Percent cell count reference ranges are not reported, since discordance with absolute values may lead to misinterpretation of CBC data. Current Interpretive Data was last revised on 2017. Eosinophil pct 0.0 % [facility] Comment: Interpretive Data Percent cell count reference ranges are not reported, since discordance with absolute values may lead to misinterpretation of CBC data. Current Interpretive Data was last revised on 2017. Basophil pct 0.1 % [facility] Comment: Interpretive Data Percent cell count reference ranges are not reported, since discordance with absolute values may lead to misinterpretation of CBC data. Current Interpretive Data was last revised on 2017. Blood specimen (specimen) 04/23/2020 4:24 AM CDT 04/23/2020 4:42 AM CDT us Ari Tish Yeh MD LAB BLOOD ORDERABLES Final R esult [facility] [place] [address] * (ABNORMAL) CBC with auto differential (04/23/2020 4:24 AM CDT) WBC 10.1(H) 3.8 - 9.9 K/cumm [facility] Hgb 11.5(L) 11.9 - 15.5 g/dL [facility] Hct 36.2 35.6 - 45.5 % [facility] Plt 286 150 - 400 K/cumm [facility] MPV 9.8 9.1 - 12.3 fL [facility] RBC 4.00 3.90 - 5.20 M/cumm [facility] MCV 90.5 81.3 - 96.4 fL [facility] MCH 28.8 27.1 - 33.3 pg [facility] MCHC 31.8(L) 32.3 - 35.7 g/dL [facility] RDW CV 14.1 11.1 - 14.9 % [facility] RDW SD 47.1 35.7 - 48.1 fL [facility] NRBC abs 0.00 0.00 - 0.01 K/cumm [facility] Blood specimen (specimen) 04/23/2020 4:24 AM CDT 04/23/2020 4:42 AM CDT us Ari Tish Yeh MD LAB BLOOD ORDERABLES Final R esult [facility] Department [place] [address] * (ABNORMAL) Comprehensive metabolic panel (04/23/2020 4:24 AM CDT) Sodium 136 135 - 145 mmol/L [facility] Potassium, pl 5.1(H) 3.3 - 4.9 mmol/L [facility] Chloride 102 97 - 110 mmol/L [facility] CO2 24 22 - 32 mmol/L [facility] Anion gap 10 2 - 15 mmol/L [facility] BUN 11 8 - 25 mg/dL [facility] Creatinine 0.73 0.60 - 1.10 mg/dL [facility] Glucose 100 70 - 199 mg/dL [facility] Comment: Interpretive Data Fasting glucose >/= 126 [...] 2017. Calcium 9.3 8.5 - 10.3 mg/dL [facility] Bilirubin, total 0.2 0.1 - 1.2 mg/dL [facility] Protein, pl 6.7 6.5 - 8.5 g/dL [facility] Albumin 3.8 3.5 - 5.0 g/dL [facility] Alk phos 111 40 - 130 Units/L [facility] ALT 16 7 - 45 Units/L [facility] AST 24 10 - 45 Units/L [facility] Blood specimen (specimen) 04/23/2020 4:24 AM CDT 04/23/2020 4:43 AM CDT Ari Tish Yeh MD LAB BLOOD ORDERABLES Final R esult Performing Organization Address City/[facility]/ZIP Co de Phone Number [facility] Department of Laboratories [place], [place] [id number] * Mycology (fungal) culture Tissue Abdominal (04/22/2020 10:05 AM CDT) Report Final Report: No growth of fungus [facility] Tissue (Abdominal) 04/22/2020 10:05 AM CDT 04/22/2020 11:27 AM CDT Narrative [facility] - 05/20/2020 6:58 AM CDT Infected mesh Testing performed by [facility] ([phone]). us Ari Tish Yeh MD LAB MICROBIOLOGY - GENERAL O RDERABLES Final Result Performing Organization Address City/[facility]/ZIP Co de Phone Number [facility] Department [place] [address] * (ABNORMAL) Tissue aerobic and anaerobic culture and gram stain Tissue Abdominal (04/22/2020 10:05 AM CDT) Direct Specimen Exam Stain: No polymorphonuclear leukocytes seen. No organisms seen. [facility] Report Final Report: Rare Staphylococcus aureus Methicillin resistant (MRSA) by penicillin binding protein 2a (PBP2a) testing. (.) [facility] Organism STAPHYLOCOCCUS AUREUS [facility] Tissue (Abdominal) 04/22/2020 10:05 AM CDT 04/22/2020 11:27 AM CDT Narrative [facility] - 04/25/2020 10:44 AM CDT Infected mesh Testing performed by [facility] ([phone]) Specimens submitted from normally sterile body sites will have all bacterial morphotypes identified. Specimens that contain grossly mixed ashwini and/or are from body sites that are not normally sterile will be examined for Staphylococcus aureus, Pseudomonas aeruginosa, beta-hemolytic strep, vancomycin-resistant Enterococcus, Bacteroides, Parabacteroides, Clostridium perfringens and fungus. If any of these are isolated, the organism will be reported. Current interpretive data was last revised on 2019. Organism Antibiotic Method Susceptibility Staphylococcus aureus Daptomycin (LA) (LA) INTERPRET ATION Susceptible Staphylococcus aureus Ceftaroline (LA) INTERPRETATIO N Susceptible Staphylococcus aureus Doxycycline (LA) INTERPRETATIO N Intermediate Staphylococcus aureus Linezolid (LA) INTERPRETATIO N Susceptible Staphylococcus aureus Trimethoprim with Sulfamethoxazole (LA) INTERPRETATION Susceptible Staphylococcus aureus Clindamycin (LA) INTERPRETATIO N Susceptible Staphylococcus aureus Erythromycin (LA) INTERPRETATIO N Susceptible Staphylococcus aureus Vancomycin (LA) INTERPRETATIO N Susceptible Staphylococcus aureus Oxacillin (LA) INTERPRETATIO N Resistant Staphylococcus aureus Cefazolin (LA) INTERPRETATIO N Resistant Staphylococcus aureus Ceftriaxone (LA) INTERPRETATIO N Resistant us Ari Noor Jaquan MAXWELL LAB MICROBIOLOGY - GENERAL O RDERABLES Final Result [facility] Department [place] [address] * Mycology (fungal) culture Tissue Abdominal (04/22/2020 10:05 AM CDT) Report Final Report: No growth of fungus [facility] Tissue (Abdominal) 04/22/2020 10:05 AM CDT 04/22/2020 11:28 AM CDT Narrative [facility] - 05/20/2020 6:59 AM CDT Infected mesh Testing performed by [facility] ([phone]). us Ari Tish Yeh MD LAB MICROBIOLOGY - GENERAL O RDERABLES Final Result Performing Organization Address [facility] Co de Phone Number [facility]AIL[facility] SHABAZZ [facility] Department [place] [employer] [place] [address] * Tissue aerobic and anaerobic culture and gram stain Tissue Abdominal (04/22/2020 10:05 AM CDT) Direct Specimen Exam Stain: No polymorphonuclear leukocytes seen. No organisms seen. [facility] Report Final Report: No growth [facility] Tissue (Abdominal) 04/22/2020 10:05 AM CDT 04/22/2020 11:28 AM CDT Narrative [facility] - 04/25/2020 9:28 AM CDT Infected mesh Testing performed by [facility] ([phone]) Specimens submitted from normally sterile body sites will have all bacterial morphotypes identified. Specimens that contain grossly mixed ashwini and/or are from body sites that are not normally sterile will be examined for Staphylococcus aureus, Pseudomonas aeruginosa, beta-hemolytic strep, vancomycin-resistant Enterococcus, Bacteroides, Parabacteroides, Clostridium perfringens and fungus. If any of these are isolated, the organism will be reported. Current interpretive data was last revised on 2019. 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, initial encounter ([facility]) Abdominal pain Abdominal pain, unspecified site Anxiety state Anxiety state, unspecified History of DVT (deep vein thrombosis) documented in this encounter Admitting Diagnoses Diagnosis Abdominal pain Abdominal pain, unspecified site documented in this encounter Administered Medications Inactive Administered Medications - up to 3 most recent administrations Medication Order MAR Action Action Date Dose Rate Site acetaminophen (TYLENOL) tablet 1,000 mg 1,000 mg, oral, Every 6 hours scheduled, First dose (after last modification) on 04/23/20 at 1200, Indications: PainIndications:Pain Given 04/28/2020 12:58 PM CDT 1,000 mg Given 04/28/2020 5:25 AM CDT 1,000 mg Given 04/27/2020 11:15 PM CDT 1,000 mg acetaminophen (TYLENOL) tablet 650 mg 650 mg, oral, Every 4 hours PRN, 1st line for pain, Starting on Sat04/22/20 at 1347, Indications: PainIndications:Pain Given 04/23/2020 3:34 AM CDT 650 mg Given 04/22/2020 10:12 PM CDT 650 mg Given 04/22/2020 5:45 PM CDT 650 mg ceFAZolin (ANCEF) 1 gram/10 mL in sterile water (premix) 1,000 mg 1,000 mg, intravenous, at 200 mL/hr, Administer over 3 Minutes, Every 8 hours scheduled, First dose on 04/23/20 at 1115, Indications: Abdominal/Pelvic InfectionIndications:Abdominal/Pe lvic Infection New Bag 04/26/2020 6:48 AM CDT 1,000 mg 200 mL/hr New Bag 04/25/2020 11:22 PM CDT 1,000 mg 200 mL/hr New Bag 04/25/2020 2:59 PM CDT 1,000 mg 200 mL/hr clonazePAM (KlonoPIN) tablet 0.5 mg 0.5 mg, oral, 2 times daily, First dose on Sat04/23/20 at 1245 Given 04/28/2020 8:47 AM CDT 0.5 mg Given 04/27/2020 8:56 PM CDT 0.5 mg Given 04/27/2020 8:26 AM CDT 0.5 mg cyclobenzaprine (FLEXERIL) tablet 10 mg 10 mg, oral, 2 times daily, First dose on Sat04/22/20 at 1430 Given 04/28/2020 8:47 AM CDT 10 mg Given 04/27/2020 8:56 PM CDT 10 mg Given 04/27/2020 8:25 AM CDT 10 mg dicyclomine (BENTYL) capsule 10 mg 10 mg, oral, 3 times daily, First dose on Sat04/22/20 at 1700 Given 04/28/2020 8:47 AM CDT 10 mg Given 04/27/2020 8:56 PM CDT 10 mg Given 04/27/2020 4:44 PM CDT 10 mg docusate sodium (COLACE) capsule 100 mg 100 mg, oral, Daily with lunch, First dose on Sat04/23/20 at 1200, Indications: constipationIndications:constipation Given 04/25/2020 12:25 PM CDT 100 mg Given 04/24/2020 11:16 AM CDT 100 mg Given 04/23/2020 12:20 PM CDT 100 mg docusate sodium (COLACE) capsule 100 mg 100 mg, oral, 2 times daily PRN, constipation, 2nd line, Starting on Sat04/26/20 at 1434, Indications: constipationIndications:const ipation Given 04/27/2020 4:44 PM CDT 100 mg enoxaparin (LOVENOX) syringe 40 mg 40 mg, subcutaneous, Daily (for enoxaparin), First dose on Sat04/26/20 at 2100, Indications: Deep Vein Thrombosis PreventionIndications:Deep Vein Thrombosis Prevention Given 04/27/2020 8:56 PM CDT 40 mg Left Lower Abdomen Given 04/26/2020 9:40 PM CDT 40 mg Le ft Lower Abdomen heparin 5,000 unit/mL injection 5,000 Units 5,000 Units, subcutaneous, Every 8 hours scheduled, First dose on Sat04/22/20 at 1700, Indications: Deep Vein Thrombosis PreventionIndications:Deep Vein Thrombosis Prevention Given 04/23/2020 5:54 AM CDT 5,000 Units Right Lower Abdomen Given 04/22/2020 8:31 PM CDT 5,000 Units R ight Lower Abdomen Given 04/22/2020 5:45 PM CDT 5,000 Units L eft Lower Abdomen heparin in 0.45% sodium chloride 25,000 units/250 mL (100 units/mL) infusion (premix) 1-33 Units/kg/hr ? 53.5 kg (0.535-17.655 mL/hr, rounded to 0.54-17.66 mL/hr), intravenous, Titrated, Starting on 04/23/20 at 1130, WEIGHT-BASED HEPARIN INFUSION Initial rate:: 12 Units/kg/hr. Max initial rate 1,000 units/hr. Adjust infusion based upon nomogram: PTT less than 40 seconds: Bolus if ordered (see PRN bolus order) , then increase infusion rate 3 units/kg/hour PTT 40 - 50.9 seconds: Bolus if ordered (see PRN bolus order), then increase infusion rate 2 units/kg/hour PTT 51 - 59.9 seconds: No bolus, increase infusion rate 1 unit/kg/hour PTT 60 - 94.9 seconds: No change PTT 95 - 104.9 seconds: No bolus, decrease infusion rate 1 unit/kg/hour PTT 105-114.9 seconds: Hold infusion for 30 minutes, then decrease infusion rate 2 units/kg/hour PTT 115 or greater seconds: Hold infusion for 1 hour, then decrease infusion rate 3 units/kg/hour Draw STAT PTT 6 hrs after initial heparin bolus, after each rate change, and every 6 hours until 2 consecutive PTTs are within therapeutic range. Once two consecutive PTT's are therapeutic (60-94.9 seconds), then draw PTT every AM until heparin is discontinued., Indications: Venous ThrombosisIndications:Ve nous Thrombosis Rate/Dose Change 04/26/2020 1:25 AM CDT 14 Units/kg/hr 7.49 mL/hr New Bag 04/25/2020 6:18 PM CDT 12 Units/kg/hr 6.42 mL/h r New Bag 04/24/2020 11:16 AM CDT 9 Units/kg/hr 4.82 mL/h r HYDROmorphone (DILAUDID) injection 0.2 mg 0.2 mg, intravenous, Administer over 2 Minutes, Every 10 min PRN, 1st line for pain, Starting on Sat04/22/20 at 1017, Phase I, Switch to 2nd line analgesic order if pain is uncontrolled or increasing after 2 doses. Notify Anesthesiologist if total PACU dose reaches 2 mg and pain score 5/10 or more., Indications: PainIndications:Pain Given 04/22/2020 11:10 AM CDT 0. 2 mg Given 04/22/2020 10:42 AM CDT 0.2 mg Given 04/22/2020 10:32 AM CDT 0.2 mg HYDROmorphone (DILAUDID) injection 0.2 mg 0.2 mg, intravenous, Administer over 2 Minutes, Once, On Sat04/24/20 at 1330, For 1 dose Given 04/24/2020 1:46 PM CDT 0.2 mg HYDROmorphone (DILAUDID) injection 0.2 mg 0.2 mg, intravenous, Administer over 2 Minutes, Once, On Sat04/24/20 at 1530, For 1 dose Given 04/24/2020 3:12 PM CDT 0.2 mg HYDROmorphone (DILAUDID) injection 0.2 mg 0.2 mg, intravenous, Administer over 2 Minutes, Every 4 hours PRN, breakthrough pain, Starting on Sat04/24/20 at 1557 Given 04/24/2020 8:19 PM CDT 0.2 mg HYDROmorphone (DILAUDID) injection 0.4 mg 0.4 mg, intravenous, Administer over 2 Minutes, Every 10 min PRN, 2nd line for pain, Starting on Sat04/22/20 at 1017, Phase I, May administer 10 mintes after 2nd dose of 1st line analgesic agent for uncontrolled or increasing pain. Revert to 1st line dose if POSS of 3. Notify Anesthesiologist if total PACU dose reaches 2 mg and pain score 5/10 or more., Indications: PainIndications:Pain Given 04/22/2020 10:59 AM CDT 0.4 mg Lactated Ringer's (LR) infusion 75 mL/hr, intravenous, Continuous, Starting on Sat04/22/20 at 1300 New Bag 04/23/2020 3:35 AM CDT 75 mL/hr 75 mL/hr New Bag 04/22/2020 12:23 PM CDT 75 mL/hr 75 mL/hr magnesium sulfate 2 g/50 mL in water (premix) 2 g 2 g, intravenous, Administer over 60 Minutes, Once, On Sat04/24/20 at 0045, For 1 dose, Indications: hypomagnesemiaIndications:hypomagnesemia New Bag 04/24/2020 12:19 AM CDT 2 g ondansetron (ZOFRAN) injection 4 mg 4 mg, intravenous, Administer over 2 Minutes, Once as needed, nausea, vomiting, Starting on Sat04/22/20 at 1017, For 1 dose, Phase I, Indications: Nausea and VomitingIndications:Nausea and Vomiting Given 04/22/2020 11:28 AM CDT 4 m g ondansetron (ZOFRAN) injection 4 mg 4 mg, intravenous, Administer over 2 Minutes, Once, On 04/23/20 at 0530, For 1 dose, Indications: Nausea and VomitingIndications:Nausea and Vomiting Given 04/23/2020 5:54 AM CDT 4 mg ondansetron ODT (ZOFRAN-ODT) disintegrating tablet 4 mg 4 mg, oral, 4 times daily PRN, nausea, vomiting, Starting on 04/23/20 at 1059 Given 04/24/2020 8:12 PM CDT 4 mg Given 04/24/2020 2:19 PM CDT 4 mg Given 04/23/2020 5:15 PM CDT 4 mg oxyCODONE (ROXICODONE) tablet 5 mg 5 mg, oral, Every 4 hours PRN, 2nd line for pain, Starting on Sat04/22/20 at 1347, May administer 1 hour after 1st line agent for uncontrolled or increasing pain., Indications: PainIndications:Pain Given 04/23/2020 8:52 AM CDT 5 mg Given 04/23/2020 4:31 AM CDT 5 mg Given 04/22/2020 11:19 PM CDT 5 mg oxyCODONE (ROXICODONE) tablet 5 mg 5 mg, oral, Every 3 hours PRN, 2nd line for pain, Starting on 04/23/20 at 1115, May administer 1 hour after 1st line agent for uncontrolled or increasing pain., Indications: PainIndications:Pain Given 04/28/2020 4:08 PM CDT 5 mg Given 04/28/2020 10:18 AM CDT 5 mg Given 04/28/2020 6:26 AM CDT 5 mg polyethylene glycol (MIRALAX) packet 17 g 17 g, oral, Daily with lunch, First dose on 04/23/20 at 1200, Indications: constipationIndications:constipation Given 04/25/2020 12:26 PM CDT 17 g Given 04/24/2020 11:16 AM CDT 17 g Given 04/23/2020 12:20 PM CDT 17 g polyethylene glycol (MIRALAX) packet 17 g 17 g, oral, Daily PRN, constipation, 1st line, Starting on Sat04/26/20 at 1434, Indications: constipationIndications:constipation pregabalin (LYRICA) capsule 50 mg 50 mg, oral, Daily, First dose on Sat04/27/20 at 1515 Given 04/28/2020 8:47 AM CDT 50 mg Given 04/27/2020 4:44 PM CDT 50 mg prochlorperazine (COMPAZINE) injection 10 mg 10 mg, intravenous, Administer over 2 Minutes, Every 6 hours PRN, nausea, vomiting, Starting on Sat04/22/20 at 1037, Phase I Given 04/22/2020 10:38 AM CDT 10 mg scopolamine patch 72 hour 1 patch 1 patch, transdermal, Administer over 72 Hours, Once, On Sat04/22/20 at 0745, For 1 dose, Pre-Op, Indications: Prevention of Post-Operative Nausea and VomitingIndications: Prevention of Post-Operative Nausea and Vomiting Medication Applied 04/22/2020 7:33 AM CDT 1 patch Behind Right Ear silver nitrate 75-25 % applicator - ADS Override Pull Starting on 04/24/20 at 0936, For 1 dose, Created by cabinet override silver nitrate applicator 3 application 3 application (deactivated), topical, Once, On 04/24/20 at 1000, For 1 dose, Apply to affected area: abdomen Given 04/24/2020 3:21 PM CDT 3 application (deactivated) Given 04/24/2020 1:47 PM CDT 3 application (deactivat ed) Given by Other 04/24/2020 10:12 AM CDT 3 application (deac tivated) sodium chloride 0.9% flush 0.5-20 mL 0.5-20 mL, intra-catheter, Every 8 hours scheduled, First dose on Sat04/22/20 at 1700, Flush volume based on line type and size. Given 04/28/2020 12:58 PM CDT 1 0 mL Given 04/28/2020 5:26 AM CDT 10 mL Given 04/27/2020 8:59 PM CDT 10 mL sodium chloride 0.9% flush 5-10 mL 5-10 mL, intra-catheter, Every 12 hours scheduled, First dose on Sat04/25/20 at 2100, Flush volume based on line type, size, and protocol. Given 04/28/2020 8:48 AM CDT 10 mL Given 04/27/2020 8:59 PM CDT 10 mL Given 04/27/2020 8:26 AM CDT 10 mL sodium chloride 0.9% flush 5-20 mL 5-20 mL, intra-catheter, As needed, line care, with each use, Starting on 04/25/20 at 1559, Flush volume based on line type, size, and protocol. sodium phosphate 20 mmol in sodium chloride 0.9% 250 mL IVPB 20 mmol, intravenous, at 42.8 mL/hr, Administer over 6 Hours, Once, On Sat04/24/20 at 0045, For 1 dose New Bag 04/24/2020 3:22 AM CDT 20 mmol 42.8 mL/hr traZODone (DESYREL) tablet 150 mg 150 mg, oral, Nightly, First dose on Sat04/22/20 at 2100 Given 04/27/2020 8:56 PM CDT 150 mg Given 04/26/2020 9:40 PM CDT 150 mg Given 04/25/2020 8:51 PM CDT 150 mg vancomycin 750 mg/150 mL in dextrose 5% (premix) 750 mg 750 mg, intravenous, at 150 mL/hr, Administer over 60 Minutes, Every 12 hours, First dose on Sat04/24/20 at 1330, Indications: infection of meshIndications:infection of mesh New Bag 04/26/2020 1:26 AM CDT 750 mg 150 mL/hr New Bag 04/25/2020 2:59 PM CDT 750 mg 150 mL/hr New Bag 04/25/2020 12:21 AM CDT 750 mg 150 mL/hr vancomycin 750 mg/150 mL in dextrose 5% (premix) 750 mg 750 mg, intravenous, at 150 mL/hr, Administer over 60 Minutes, Every 12 hours, First dose (after last modification) on Sat04/26/20 at 1530, Indications: Abdominal/Pelvic Infection, infection of meshIndications:Abdominal/Pelvic Infection,infection of mesh New Bag 04/28/2020 2:59 PM CDT 750 mg 150 mL/hr New Bag 04/28/2020 3:34 AM CDT 750 mg 150 mL/hr New Bag 04/27/2020 4:43 PM CDT 750 mg 150 mL/hr documented in this encounter Discontinued Medications Medication Sig Discontinue Reason Start Date End Da te pregabalin (LYRICA) 50 mg capsule Take 1 capsule (50 mg total) by mouth daily Stop Taking at Discharge 04/29/2020 04/28/2020 rivaroxaban (XARELTO) 20 mg tabletIndications:Veno us Thrombosis Take 20 mg by mouth daily with dinner Stop Taking at Discharge 04/28/2020 polyethylene glycol (Miralax) 17 gram/dose powderIndications:cons tipation Take 17 g by mouth daily Mix 1 scoop (17g) in 8oz of water and drink daily. Stop Taking at Discharge 09/19/2019 04/28/2020 neomycin (MYCIFRADIN) 500 mg tablet TAKE ONE 500MG TABLET AT 1:00 PM, 2:00 PM AND 10:00 PM DAY PRIOR TO SURGERY Stop Taking at Discharge 04/11/2020 04/28/2020 metroNIDAZOLE (FLAGYL) 500 mg tablet TAKE ONE 500MG TABLET AT 1:00 PM, 2:00 PM AND 10:00 PM DAY PRIOR TO SURGERY Stop Taking at Discharge 04/11/2020 04/28/2020 bisacodyl EC (DULCOLAX EC) 5 mg EC tabletIndications:cons tipation TAKE TWO 5MG TABLETS AT 10:00 AM AND AT NOON DAY PRIOR TO SURGERY Stop Taking at Discharge 04/11/2020 04/28/2020 ondansetron (ZOFRAN) 8 mg tablet TAKE ONE 8MG TABLET AT 11:00 AM AND THE OTHERS NEEDED FOR NAUSEA DAY PRIOR TO SURGERY. TAKE NO CLOSER THAN EVERY 4 HOURS Stop Taking at Discharge 04/11/2020 04/28/2020 documented as of this encounter Active and Recently Administered Medications Times are shown in CDT. Scheduled Medication Order 04/26/2020 04/27/2020 04/28/2020 acetaminophen (TYLENOL) tablet 1,000 mg 1,000 mg, oral, Every 6 hours scheduled, First dose (after last modification) on 04/23/20 at 1200, Indications: Pain 0001 (Given - Provider: Tesys Lowe RN)0648 (Given - Provider: Tessy Lowe RN)1245 (Given - Provider: Jennifer Rasmussen, KAT)1837 (Given - Provider: Jennifer Rasmussen, KAT)2324 (Given - Provider: Fay Paniagua, KAT) 0635 (Given - Provider: Fay Paniagua RN)1234 (Given - Provider: Jennifer Rasmussen RN)1701 (Given - Provider: Jennifer Rasmussen RN)2315 (Given - Provider: Fay Paniagua RN) 0525 (Given - Provider: Fay Paniagua RN)1258 (Given - Provider: Sly Santiago, KAT) ceFAZolin (ANCEF) 1 gram/10 mL in sterile water (premix) 1,000 mg (CANCELED) 1,000 mg, intravenous, at 200 mL/hr, Administer over 3 Minutes, Every 8 hours scheduled, First dose on Sat04/23/20 at 1115, Indications: Abdominal/Pelvic Infection 0648 (New Bag - Provider: Tessy Lowe RN) clonazePAM (KlonoPIN) tablet 0.5 mg 0.5 mg, oral, 2 times daily, First dose on Sat04/23/20 at 1245 0800 (Given - Provider: Jennifer Rasmussen RN)2140 (Given - Provider: Fay Paniagua RN) 0826 (Given - Provider: Jennifer Rasmussen RN)2055 (Given - Provider: Fay Paniagua RN) 0847 (Given - Provider: Sly Santiago, KAT) cyclobenzaprine (FLEXERIL) tablet 10 mg 10 mg, oral, 2 times daily, First dose on Sat04/22/20 at 1430 0800 (Given - Provider: Jennifer Rasmussen RN)2140 (Given - Provider: Fay Paniagua RN) 0825 (Given - Provider: Jennifer Rasmussen RN)2055 (Given - Provider: Fay Paniagua RN) 0847 (Given - Provider: Sly Santiago, KAT) dicyclomine (BENTYL) capsule 10 mg 10 mg, oral, 3 times daily, First dose on Sat04/22/20 at 1700 0800 (Given - Provider: Jennifer Rasmussen RN)1534 (Given - Provider: Jennifer Rasmussen RN)2140 (Given - Provider: Fay Paniagua RN) 0825 (Given - Provider: Jennifer Rasmussen RN)1644 (Given - Provider: Jennifer Rasmussen RN)2055 (Given - Provider: Fay Paniagua RN) 0847 (Given - Provider: Sly Santiago, KAT)1600 (Due) enoxaparin (LOVENOX) syringe 40 mg 40 mg, subcutaneous, Daily (for enoxaparin), First dose on Sat04/26/20 at 2100, Indications: Deep Vein Thrombosis Prevention 2139 (Given - Provider: Fay Paniagua RN) 2055 (Given - Provider: Fay Paniagua RN) pregabalin (LYRICA) capsule 50 mg 50 mg, oral, Daily, First dose on Sat04/27/20 at 1515 1644 (Given - Provider: Jennifer Rasmussen RN) 0847 (Given - Provider: Sly Santiago RN) sodium chloride 0.9% flush 0.5-20 mL 0.5-20 mL, intra-catheter, Every 8 hours scheduled, First dose on Sat04/22/20 at 1700, Flush volume based on line type and size. 0648 (Given - Provider: Tessy Lowe RN)1246 (Given - Provider: Jennifer Rasmussen RN)2141 (Given - Provider: Fay Paniagua RN) 0635 (Given - Provider: Fay Paniagua RN)1235 (Given - Provider: Jennifer Rasmussen RN)2058 (Given - Provider: Fay Paniagua RN) 0526 (Given - Provider: Fay Paniagua RN)1258 (Given - Provider: Sly Santiago, KAT) sodium chloride 0.9% flush 5-10 mL 5-10 mL, intra-catheter, Every 12 hours scheduled, First dose on Sat04/25/20 at 2100, Flush volume based on line type, size, and protocol. 0801 (Given - Provider: Jennifer Rasmussen RN)2141 (Given - Provider: Fay Paniagua RN) 0826 (Given - Provider: Jennifer Rasmussen RN)2058 (Given - Provider: Fay Paniagua RN) 0848 (Given - Provider: Sly Santiago, KAT) traZODone (DESYREL) tablet 150 mg 150 mg, oral, Nightly, First dose on Sat04/22/20 at 2100 2140 (Given - Provider: Fay Paniagua, RN) 2056 (Given - Provider: Fay Paniagua RN) vancomycin 750 mg/150 mL in dextrose 5% (premix) 750 mg (CANCELED) 750 mg, intravenous, at 150 mL/hr, Administer over 60 Minutes, Every 12 hours, First dose on Sat04/24/20 at 1330, Indications: infection of mesh 0126 (New Bag - Provider: Tessy Lowe RN) vancomycin 750 mg/150 mL in dextrose 5% (premix) 750 mg 750 mg, intravenous, at 150 mL/hr, Administer over 60 Minutes, Every 12 hours, First dose (after last modification) on Sat04/26/20 at 1530, Indications: Abdominal/Pelvic Infection, infection of mesh 1545 (New Bag - Provider: Jennifer Rasmussen RN) 0320 (New Bag - Provider: Fay Paniagua RN)1643 (New Bag - Provider: Jennifer Rasmussen RN) 0334 (New Bag - Provider: Fay Paniagua RN)1459 (New Bag - Provider: Sly Santiago RN) Continuous Medication Order 04/26/2020 04/27/2020 04/28/2020 heparin in 0.45% sodium chloride 25,000 units/250 mL (100 units/mL) infusion (premix) (CANCELED) 1-33 Units/kg/hr ? 53.5 kg (0.535-17.655 mL/hr, rounded to 0.54-17.66 mL/hr), intravenous, Titrated, Starting on 04/23/20 at 1130, WEIGHT-BASED HEPARIN INFUSION Initial rate:: 12 Units/kg/hr. Max initial rate 1,000 units/hr. Adjust infusion based upon nomogram: PTT less than 40 seconds: Bolus if ordered (see PRN bolus order) , then increase infusion rate 3 units/kg/hour PTT 40 - 50.9 seconds: Bolus if ordered (see PRN bolus order), then increase infusion rate 2 units/kg/hour PTT 51 - 59.9 seconds: No bolus, increase infusion rate 1 unit/kg/hour PTT 60 - 94.9 seconds: No change PTT 95 - 104.9 seconds: No bolus, decrease infusion rate 1 unit/kg/hour PTT 105-114.9 seconds: Hold infusion for 30 minutes, then decrease infusion rate 2 units/kg/hour PTT 115 or greater seconds: Hold infusion for 1 hour, then decrease infusion rate 3 units/kg/hour Draw STAT PTT 6 hrs after initial heparin bolus, after each rate change, and every 6 hours until 2 consecutive PTTs are within therapeutic range. Once two consecutive PTT's are therapeutic (60-94.9 seconds), then draw PTT every AM until heparin is discontinued., Indications: Venous Thrombosis 0125 (Rate/Dose Change - Provider: Tessy Lowe RN) PRN Medication Order 04/26/2020 04/27/2020 04/28/2020 docusate sodium (COLACE) capsule 100 mg 100 mg, oral, 2 times daily PRN, constipation, 2nd line, Starting on 04/26/20 at 1434, Indications: constipation 1644 (Given - Provider: Jennifer Rasmussen RN) ondansetron ODT (ZOFRAN-ODT) disintegrating tablet 4 mg 4 mg, oral, 4 times daily PRN, nausea, vomiting, Starting on 04/23/20 at 1059 oxyCODONE (ROXICODONE) tablet 5 mg 5 mg, oral, Every 3 hours PRN, 2nd line for pain, Starting on 04/23/20 at 1115, May administer 1 hour after 1st line agent for uncontrolled or increasing pain., Indications: Pain 0001 (Given - Provider: Tessy Lowe RN)0349 (Given - Provider: Tesys Lowe RN)0648 (Given - Provider: Tessy Lowe RN)1048 (Given - Provider: Jennifer Rasmussen RN)1534 (Given - Provider: Jennifer Rasmussen RN)1837 (Given - Provider: Jennifer Rasmussen RN)2140 (Given - Provider: Fay Paniagua, KAT) 0320 (Given - Provider: Fay Paniagua, KAT)0700 (Given - Provider: Fay Paniagua, RN)1234 (Given - Provider: Jennifer Rasmussen RN)1645 (Given - Provider: Jennifer Rasmussen RN)2039 (Given - Provider: Shireen Dimas RN)2339 (Given - Provider: Fay Paniagua RN) 0334 (Given - Provider: Fay Paniagua RN)0626 (Given - Provider: Fay Paniagua RN)1018 (Given - Provider: Sly Santiago, KAT)1608 (Given - Provider: Sly Santiago, KAT) polyethylene glycol (MIRALAX) packet 17 g 17 g, oral, Daily PRN, constipation, 1st line, Starting on Sat04/26/20 at 1434, Indications: constipation rizatriptan COOK PICKLED MEAT (MAXALT-COOK PICKLED MEAT) disintegrating tablet 10 mg 10 mg, oral, Once as needed, migraine, Starting on Sat04/22/20 at 1623, For 1 dose, Indications: Migraine sodium chloride 0.9% flush 0.5-20 mL 0.5-20 mL, intra-catheter, As needed, line care, Starting on Sat04/22/20 at 1623, Flush volume based on line type and size. Flush before and after each use. sodium chloride 0.9% flush 5-20 mL 5-20 mL, intra-catheter, As needed, line care, with each use, Starting on Sat04/25/20 at 1559, Flush volume based on line type, size, and protocol. documented in this encounter Orders Medications Ordered That Guy ht Not Have Been Administered Count Last Ordered Date First Ordered Date docusate sodium (COLACE) capsule 100 mg 1 0 04/26/2020 polyethylene glycol (MIRALAX) packet 17 g 2 04/26/2020 rivaroxaban (XARELTO) tablet 20 mg 1 2019 vancomycin 1,000 mg/200 mL i n dextrose 5% (premix) 1,000 mg 1 04/26/2020 vancomycin 750 mg/150 mL in dextrose 5% (premix) 750 mg 1 04/26/2020 lidocaine PF (XYLOCAINE) 10 mg/mL (1 %) preservative free injection 10-20 mg 1 04/25/2020 sodium chloride 0.9% flush 5-20 mL 1 2019 fentaNYL (SUBLIMAZE) preserv ative free injection 50 mcg 1 04/22/2020 Lactated Ringer's (LR) infusion 2 0 lidocaine 1% and bupivacaine (MARCAINE) 0.25% syringe 1 04/22/2020 naloxone (NARCAN) 0.4 mg/mL injection 0.04-0.4 mg 1 04/22/2020 prochlorperazine (COMPAZINE) 10 mg/2 mL (5 mg/mL) injection - ADS Override Pull 1 04/22/2020 rizatriptan COOK PICKLED MEAT (MAXALT-COOK PICKLED MEAT) disintegrating tablet 10 mg 1 04/22/2020 sodium chloride 0.9 % irrigation 1 04/22/20 20 sodium chloride 0.9% flush 0.5-20 mL 3 04/12 sterile water irrigation 1 04/22/2020 Lab Orders Without Results Count Last Ordered D ate First Ordered Date APTT 1 04/25/2020 MAGNESIUM 1 04/23/2020 PHOSPHORUS 1 04/23/2020 Diet Count Last Ordered Date First Orde red Date ADULT DISCHARGE DIET 1 04/28/2020 Nursing Count Last Ordered Date First Orde red Date DISCHARGE ACTIVITY 3 04/28/2020 DISCHARGE CALL PROVIDER 6 04/28/2020 DISCHARGE DRESSING 3 04/28/2020 DISCHARGE INSTRUCTIONS 1 04/28/2020 Consult Count Last Ordered Date First Orde red Date CONSULT TO GENERAL INFECTIOUS DISEASE 1 IP CONSULT TO VASCULAR ACCESS TEAM 4 201904/23/2020 documented in this encounter Additional Health Concerns Infection Onset Date Last Indicated Resolved Time 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 [place] [address] PCP - General 09/25/19 03/04/24 documented as of this encounter
--- OUTSIDE RECORDS SUMMARY | 2024-08-08 16:04 | XMS_ITS | Encounter Summary ---
Author Organization [facility] Address [address] [place] [address] Phone Care Team Providers Care Class C Truck Driver Name Role Phone Lazarus Albert MD Primary Care Provider Reason for Visit * Reason Onset Date Comments NOT FEELING WELL 05/19/2020 Encounter Details Date Type Department Care Team (Late st Contact Info) Description 05/19/[address] [facility] Surgery [address] [facility] Advanced Medicine 8th [place] [address] [place] [address] Jinny Castro RMA NOT FEELING WELL Social History Tobacco Use Types Packs/Day Years Used Date Smoking Tobacco: Former Cigarettes 2 26.6 1 982 - 03/19/2008 E-cigarettes Smokeless Tobacco: Never Alcohol Use Standard Drinks/Week Comments Yes 0 (1 standard drink = 0.6 oz pur e alcohol) rarely Comments No Sex and Gender Information Value Date Recorded Sex Assigned at Not on file Legal Sex Female 5:42 AM SENIOR COMPLIANCE OFFICER Gender Identity Not on file Sexual Orientation Not on file documented as of this encounter Miscellaneous Notes * Telephone Encounter - Jinny Castro MA - 05/19/2020 2:25 PM CDT Harper with Home Health is calling. Patient has low grade fever, one time 101, nauseated, throwingup, sinus pressure and achy. Per Gerson Kathleen, our PA, she needs to contact her PCP. I notified thepatient and she will be calling her PCP. 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
--- OUTSIDE RECORDS SUMMARY | 2024-08-08 16:04 | XMS_ITS | Encounter Summary ---
Author Organization [facility] Address [address] [place] [address] Phone Care Team Providers Care Staff Respiratory Therapist Name Role Phone Lazarus Albert MD Primary Care Provider Encounter Details Date Type Department Care Team (Late st Contact Info) Description 05/11/2020 3:00 PM CDT Office Visit [facility] Surgery [address] [facility] Advanced Medicine 8th [place] [address] [place] [address] Ari Partida MD [address] [facility] [id number] [place] [address] S/P exploratory laparotomy (Primary Dx); Infected prosthetic mesh of abdominal wall, subsequent encounter Social History Tobacco Use Types Packs/Day Years Used Date Smoking Tobacco: Former Cigarettes 2 26.6 1 982 - 03/19/2008 E-cigarettes Smokeless Tobacco: Never Alcohol Use Standard Drinks/Week Comments Yes 0 (1 standard drink = 0.6 oz pur e alcohol) rarely Comments No Sex and Gender Information Value Date Recorded Sex Assigned at Not on file Legal Sex Female 5:42 AM SOFT TILE SETTER Gender Identity Not on file Sexual Orientation Not on file documented as of this encounter Last Filed Vital Signs Vital Sign Reading Time Taken Comments Blood Pressure 120/75 05/11/2020 2:13 PM CDT Pulse 110 05/11/2020 2:13 PM CDT Temperature 36.9 ??C (98.4 ??F) 05/11/2020 2:13 PM C DT Respiratory Rate 18 05/11/2020 2:13 PM CDT Oxygen Saturation 98% 05/11/2020 2:13 PM CDT Inhaled Oxygen Concentration - - Weight 52.6 kg (116 lb) 05/11/2020 2:13 PM CDT Height 165.1 cm (5' 5 ) 05/11/2020 2:13 PM CDT Body Mass Index 19.3 05/11/2020 2:13 PM CDT documented in this encounter Ordered Prescriptions Prescription Sig Dispense Quantity Refills Last Filled Start Date End Date oxyCODONE (ROXICODONE) 5 mg immediate release tabletIndications: Pain Take 1 tablet (5 mg total) by mouth every 4 (four) hours as needed for pain 30 tablet 05/11/2020 01/14/2021 documented in this encounter Progress Notes * Ari Partida MD - 05/11/2020 3:00 PM CDT Images from the original note were not included. [facility] outpatient progress note DATE OF SERVICE: 05/11/2020 Madison Weinberg 1965 [id number] Osvaldo Escobedo MD has requested that I see Madison Jhonny Weinberg in clinic for evaluation of Abdominal pain and infection of the midline wound. Encounter Diagnoses Name Primary? S/P exploratory laparotomy Yes ??? Infected prosthetic mesh of abdominal wall, subsequent encounter Chief complaint: Draining abdominal wall sinus History of Present Illness Ms. Weinberg is a 54 y.o. female here for evaluation of abdominal pain and draining lower midline wound. She has a complex medical history the started with surgery over 27 years ago endometriosis. Most recently she had multiple surgeries at the [facility] in [place]. She was seen there by Dr. 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 polyethylene glycol (MIRALAX) 17 gram packet [...] exceed 30 mg in 24 hours. ??? traZODone (DESYREL) 150 mg tablet Take [...] Physical Exam: Ht:165.1 cm (5' 5 ) Wt:52.6 kg (116 lb) Body mass index is 19.3 kg/m??. BP 120/75 (BP Location: Left arm) Pulse 110 Temp 36.9 ??C (98.4 ??F) (Temporal) Resp 18 Ht 165.1 cm (5' 5 ) Wt 52.6 kg (116 lb) SpO2 98% BMI 19.30 kg/m?? GENERAL- no acute distress, comfortable NEURO- alert and oriented PSYCH- Mood and affect appropriate HEENT- EOMs grossly normal, no scleral icterus, mucous membranes moist LYMPHATICS- no palpable lymphadenopathy CARDIAC- regular rate and rhythm RESP- nonlabored respirations GI- abdomen soft, nondistended, multiple scars including a midline an old healed ostomy site. Lower abdomen excision site well healing with secondary intention Wound clean with granulation tissue No exudate or surrounding erythema Examination of [...] life long suppressive abx with ID at [facility] Follow up in 6 weeks due to long travel time from home Expect continued healing Ari Partida MD TILE SETTER documented in this encounter Plan of Treatment Not on file documented as of this encounter Visit Diagnoses Diagnosis S/P exploratory laparotomy- Primary Other postprocedural status Infected prosthetic mesh of abdominal wall, subsequent encounter documented in this encounter Discontinued Medications Medication Sig Discontinue Reason Start Date End Da te oxyCODONE (ROXICODONE) 5 mg immediate release tabletIndications:Pain Take 1 tablet (5 mg total) by mouth every 4 (four) hours as needed for pain Reorder 04/28/2020 05/11/2020 documented as of this encounter Additional Health Concerns Infection Onset Date Last Indicated Resolved Time 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
--- OUTSIDE RECORDS SUMMARY | 2024-08-08 16:04 | XMS_ITS | Encounter Summary ---
Author Organization [facility] Address [address] [place] [address] Phone Care Team Providers Care Poem Writer Name Role Phone Lazarus Albert MD Primary Care Provider [phone] Reason for Visit * Reason Onset Date Comments opat 05/03/2020 Encounter Details Date Type Department Care Team (Late st Contact Info) Description 05/03/2020 Telephone [facility] Infectious Diseases [address] [place] [address] [address] [place] [address] Zaria Lopez opat Social History [...] on file Legal Sex Female 5:42 AM CHIP FRIER Gender Identity Not on file Sexual Orientation Not on file documented as of this encounter Miscellaneous Notes * Telephone Encounter - Zaria Lopez - 05/03/2020 12:17 PM CDT ----- Message from Erum Heard NP sent at 05/03/2020 12:15 PM CDT ----- Good afternoon, Thank you for getting Ms. [...] urine 01/14/21 09/19/2019 02/09/2021 10/10/2021 4:00 AM CHIP FRIER documented as of this encounter Care Teams Poem Writer Relationship Specialty Start Date End Date Lazarus Albert MD [address] [place] [address] PCP - General 09/25/19 03/04/24 documented as of this encounter
--- OUTSIDE RECORDS SUMMARY | 2024-08-08 16:04 | XMS_ITS | Encounter Summary ---
Author Organization [facility] Address [address] [place] [address] Phone Care Team Providers Care Wildland Firefighter Name Role Phone Lazarus Albert MD Primary Care Provider [phone] Reason for Visit * Auth/Cert Specialty Diagnoses / Procedures Referred By Susan t Referred To Contact Referral ID Status Reason Start Date Expiration Date Visits Re quested Visits Authorized [id number] 1 1 Encounter Details Date Type Department Care Team (Late st Contact Info) Description 05/05/2020 8:30 AM CDT Home Care Visit [facility] [address] [address] [address] [place] [address] Jaz Monzon RN SN HOME VISIT Social History Tobacco [...] on file Legal Sex Female 5:42 AM MOTORSPORTS TECHNICIAN Gender Identity Not on file Sexual Orientation Not on file documented as of this encounter Last Filed Vital Signs Vital Sign Reading Time Taken Comments Blood Pressure 132/80 05/05/2020 9:01 AM CDT Pulse 96 05/05/2020 9:01 AM CDT Temperature 36.7 ??C (98 ??F) 05/05/2020 9:01 AM CDT Respiratory Rate 16 05/05/2020 9:01 AM CDT Oxygen Saturation 100% 05/05/2020 9:01 AM CDT Inhaled Oxygen Concentration - - [...] urine 01/14/21 09/19/2019 02/09/2021 10/10/2021 4:00 AM MOTORSPORTS TECHNICIAN documented as of this encounter Home Health Visit - Care Plan Visit Details Visit Type -SN Home Visit Discipline -Residential Problems Problem Description Start Date Status Goals Interve ntions Homebound Status Disciplines: Residential Patient's homebound status 04/29/2020 Active 1 goal linked to scheduled/documen tee intervention 1 goal intervention scheduled/document ed in this visit Monitor patient's vital signs every home health visit Disciplines: Residential Monitor patient's vital signs every home health visit. 04/29/2020 Active 1 goal linked to scheduled/documen tee intervention 1 goal intervention scheduled/document ed in this visit Collect Specimen/Lab Draw Disciplines: Residential Management of specimen samples, including lab draws, stool, urine, & tissue. 04/29/2020 Active - 1 problem intervention scheduled/document ed in this visit Wound Care Disciplines: Residential Wound care needed 04/29/2020 Active 1 goal linked to scheduled/documen tee intervention 2 goal interventions scheduled/document ed in this visit Goals Goal Associated Problem Outcome Goal Met? Visit Notes Patient recieves care at the most appropriate care setting Description: Patient receives care at the most appropriate care setting. Homebound Status No Measure vital signs during every home health visit during episode of care Description: Home substance abuse clinician to measure vital signs during every home health visit during episode of care. Monitor patient's vital signs every home health visit No Progression towards healing Description: Wound show [...] health visit during episode of care Completed Collect Specimen/Lab Draw Description: Draw labs per aseptic technique via venipuncture or via PICC. May use butterfly if hard draw. Labs Vanc trough, BMP 2x/week and CBC weekly. Time 0830am. Fax results to [phone] and [phone]. Ordering MD Dr Danyel Colin, phone number [phone]. Record number of attempts, delivery to lab method, & confirmation details. Problem:Collect Specimen/Lab Draw Completed Skilled nurse to flush line with 10 mL NS prior to blood draw and withdraw 5-10 mL of blood for waste, obtain blood sample of vancomycin trough and bmp, flush with 20 mL of NS and appropriate Heparin dose specific for IV access. Skilled assessment wound Description: Full wound assessment including measurement weekly. Wound assessment each visit Problem:Wound Care Goal:Progression towards healing Completed Perform dressing change Description: Perform dressing change: Site mid abdomen, Skilled Nurse to perform dressing change as of 04/29/20, Frequency BID and PRN for excess drainage or dislodgement of dressing. Wound care as follows: cleanse with normal saline or wound cleanser , apply NS moistened gauze to wound bed, pack to base of wound, cover with dry dressing and secure with tape.. Problem:Wound Care Goal:Progression towards healing Completed Per clean technique sn removed old dressing from abdomen, cleansed with saline, packed with saline moistened gauze and covered with dry dressing. patient tolerated well. documented in this encounter Home Health Visit - Actions and Narratives Actions Patient reports she has yeas t infection that is very bothersome. called id and spoke with kayla and asked for someone to call back and possibly order something for yeast. Called infusion to ask about vancomycin as patient only has enough for saturday morning. Waiting for orders to discontinue picc line. documented in this encounter Care Teams Wildland Firefighter Relationship Specialty Start Date End Date Lazarus Albert MD [address] [facility] DEPT [place] [address] PCP - General 09/25/19 03/04/24 documented as of this encounter
--- OUTSIDE RECORDS SUMMARY | 2024-08-08 16:04 | XMS_ITS | Encounter Summary ---
Author Organization [facility] Address [address] [place] [address] Phone Care Team Providers Care Radio/Tv Technician Name Role Phone Lazarus Albert MD Primary Care Provider [phone] Reason for Visit * Reason Comments Wound Care * Auth/Cert Specialty Diagnoses / Procedures Referred By Contmerissa t Referred To Contact Referral ID Status Reason Start Date Expiration Date Visits Re quested Visits Authorized [id number] 1 1 Encounter Details Date Type Department Care Team (Late st Contact Info) Description 06/09/2020 9:15 AM CDT Home Care Visit [facility] Health [address] [address] [address] [place] [address] Harper Pena, KAT SN HOME VISIT Social [...] on file Legal Sex Female 5:42 AM SCALE BALANCER Gender Identity Not on file Sexual Orientation Not on file documented as of this encounter Last Filed Vital Signs Vital Sign Reading Time Taken Comments Blood Pressure 120/70 06/09/2020 11:58 AM CDT Pulse 74 06/09/2020 11:58 AM CDT Temperature 36.4 ??C (97.6 ??F) 06/09/2020 11:58 AM C DT Respiratory Rate 18 06/09/2020 11:58 AM CDT Oxygen Saturation 98% 06/09/2020 11:58 AM CDT Inhaled Oxygen Concentration - - Weight 53.5 kg (118 lb) 06/09/2020 11:58 AM CDT Height - - Body Mass Index 19.64 06/08/2020 2:01 PM CDT documented in this encounter Plan of Treatment Not on file documented as of this encounter Visit Diagnoses Not on filedocumented in this encounter Additional Health Concerns Infection Onset Date Last Indicated Resolved Time 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, nares 04/22/20; 01/18/21; urine 01/14/21 09/19/2019 02/09/2021 10/10/2021 4:00 AM SCALE BALANCER documented as of this encounter Home Health Visit - Care Plan Visit Details Visit Type -SN Home Visit Discipline -Longterm Problems Problem Description Start Date Status Goals Interve ntions Homebound Status Disciplines: Longterm Patient's homebound status 04/29/2020 Active 1 goal linked to scheduled/documen tee intervention 1 goal intervention scheduled/document ed in this visit Medications Disciplines: Longterm Management of home medications 04/29/2020 Active 1 goal linked to scheduled/documen tee intervention 2 goal interventions scheduled/document ed in this visit Monitor patient's vital signs every home health visit Disciplines: Longterm Monitor patient's vital signs every home health visit. 04/29/2020 Active 1 goal linked to scheduled/documen tee intervention 1 goal intervention scheduled/document ed in this visit Pain Disciplines: Longterm Alteration in comfort 04/29/2020 Active 1 goal linked to scheduled/documen tee intervention 1 goal intervention scheduled/document ed in this visit Wound Risk of Infection Disciplines: Longterm Risk of infections related to wounds 04/29/2020 Active 1 goal linked to scheduled/documen tee intervention 1 goal intervention scheduled/document ed in this visit Wound Education and Management Disciplines: Longterm Deficiency of cognitive information related to wound care 04/29/2020 Active 1 goal linked to scheduled/documen tee intervention 2 goal interventions scheduled/document ed in this visit Wound Care Disciplines: Longterm Wound care needed 04/29/2020 Active 1 goal [...] visit during episode of care Description: Home program clinician to measure vital signs during every home health visit during episode of care. Monitor patient's vital signs every home health visit No Report that pain has been reduced [...] to recent surgery, open wound, pain, poor endurance Instruct on Medication Management Description: Instruct patient/caregiver in medication administration, purpose, dosages, preparation, scheduling, side effects, food/drug interactions, storage, drug allergies, and potential complications. Problem:Medications Goal:Understand and follow medication therapy Completed instructed on bactrim . instructed on reason for use, dosage and possible side effects. understanding expressed by pt Instruct on High Risk Medications Description: Instruct patient/caregiver on high-risk/high-alert medications, including: anti-convulsant, anti-retroviral, anti-coagulant, chemotherapeutic, hypo-glycemic, immunosuppressant, insulin, and opioid. Problem:Medications Goal:Understand and follow medication therapy Completed instructed on oxycodone. instructed on reason for use, dosage and possible side effects. understanding expressed by pt Monitor Vital Signs Description: Monitor blood pressure, pulse, oxygen saturation, respirations Problem:Monitor patient's vital signs every home health visit Goal:Measure vital signs during every home health visit during episode of care Completed Instruct on pain management techniques Description: Instruct in pharmacologic and nonpharmacologic pain management techniques. Problem:Pain Goal:Report that pain has been reduced or controlled Completed instructed to report if pain is not relieved to an acceptable level. pt expressed understanding. Instruct on the signs and symptoms of infection Description: Assess wound with each visit for s/sx of infection Problem:Wound Risk of Infection Goal:Knowledgeable of infection Completed instructed on s/s of infection that need to be reported to the dr. instructed to report redness, new open areas, foul odor, change in color of drainage to yellow or green, or bloody, increase in pain or fever. understanding expressed. Hydration for Wound Healing Description: [...] on Woundcare Completed instructed on proper diet for wound healing including increase in protein. understanding expressed by transcripter assessment wound Description: Full wound assessment including [...] and secure with tape.. Problem:Wound Care Completed wound care as per plan of care. pt tolerated well documented in this encounter Care Teams Radio/Tv Technician Relationship Specialty Start Date End Date Lazarus Albert MD [address] DEPT [place] [address] PCP - General 09/25/19 03/04/24 documented as of this encounter
--- OUTSIDE RECORDS SUMMARY | 2024-08-08 16:04 | XMS_ITS | Encounter Summary ---
Author Organization [facility] Home Care [facility] Address [address] [place] [address] Phone Care Team Providers Care Chopping Machine Operator Name Role Phone Lazarus Albert MD Primary Care Provider [phone] Reason for Visit * Auth/Cert Specialty Diagnoses / Procedures Referred By Susan arce Referred To Contact Referral ID Status Reason Start Date Expiration Date Visits Re quested Visits Authorized [id number] 1 1 Encounter Details Date Type Department Care Team (Late st Contact Info) Description 05/08/2020 10:00 AM CDT Home Care Visit [facility] Health [address] [address] [address] [place] [address] Celestina Allred RN SN HOME VISIT Social History Tobacco [...] on file Legal Sex Female 5: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 Gender Identity Not on file Sexual Orientation Not on file documented as of this encounter Last Filed Vital Signs Vital Sign Reading Time Taken Comments Blood Pressure 124/78 05/08/2020 11:37 AM CDT Pulse 61 05/08/2020 11:37 AM CDT Temperature 36.8 ??C (98.2 ??F) 05/08/2020 11:37 AM C DT Respiratory Rate 18 05/08/2020 11:37 AM CDT Oxygen Saturation 99% 05/08/2020 11:37 AM CDT Inhaled Oxygen Concentration - - [...] urine 01/14/21 09/19/2019 02/09/2021 10/10/2021 4:00 AM CENTRAL OFFICE OPERATOR SUPERVISOR documented as of this encounter Home Health [...] this visit Fall Precautions/Saf ety Concerns Disciplines: [facility] Alteration in safety 04/29/2020 Active 1 goal linked to scheduled/documen tee intervention 1 goal intervention scheduled/document ed in this visit IV Therapy-Managem ent, Education, and Maintenance Disciplines: [facility] Teaching and learning needs for performing home IV therapy 04/29/2020 Active - 1 problem intervention scheduled/document [...] problem intervention scheduled/document ed in this visit 2 goal interventions scheduled/document ed in this visit Goals Goal Associated Problem Outcome Goal Met? Visit Notes Patient recieves care at the most appropriate care setting Description: Patient receives care at the most appropriate care setting. Homebound Status No Measure vital signs during every home health visit during episode of care Description: Home er tech to measure vital signs during every home health visit during episode of care. Monitor patient's vital signs every home health visit No Verbalize signs of infection Description: Verbalize signs of infection Infection Prevention No Demonstrate use of safety precautions Description: Demonstrate use of safety precautions Fall Precautions/Safety Concerns No Knowledgeable on Woundcare Description: Patient/caregiver will [...] Problem:Infection Prevention Goal:Verbalize signs of infection Completed patient and caregiver instructed in signs and symptoms of infection IE: fever, odor, change in color, increased amount of drainage, purulent drainage, warmth.. patient and caregiver verbalized good understanding of instruction given Closplint Fall Precautions Description: Assess patient safety Problem:Fall Precautions/Safety Concerns Goal:Demonstrate use of safety precautions Completed IV Discontinuation Description: SN to remove PICC line per protocol on 05/08/20. Per orders in [facility] Problem:IV Therapy-Management, Education, and Maintenance Completed Instruct patient/caregiver on how to remove peripheral IV after last infusion per MD order or instruct on process of removal of Central Venous Catheter if it is to be removed in the home after infusion therapy is completed by Skilled Nurse. Instruct patient on maintaining adequate nutrition and hydration Description: Instruct patient on maintaining adequate nutrition for wound healing. Instruct pt/cg on eating/offering a balanced diet. Instruct on adequate protein sources per Wound Education Booklet. Consult RD for chronic malnutrition, stage 3 or 4 pressure ulcer. Problem:Wound Education and Management Goal:Knowledgeable on Woundcare Completed patient and caregiver instructed in maintaining adequate nutrition for wound healing. Instruct pt/cg on eating/offering a balanced diet. Instruct on adequate protein sources. patient and caregiver verbalized good understanding of instruction given Skilled assessment wound Description: Full wound assessment including measurement weekly. Wound assessment each visit Problem:Wound Care Goal:Progression towards healing Completed Perform dressing change Description: Perform dressing change: Site mid abdomen, Skilled Nurse/ pt/ cg to perform dressing change as of 04/29/20, Frequency BID and PRN for excess drainage or dislodgement of dressing. Wound care as follows: cleanse with normal saline or wound cleanser , apply NS moistened gauze to wound bed, pack to base of wound, cover with dry dressing and secure with tape.. Problem:Wound Care Goal:Progression towards healing Completed Perform [...] dressing and secure with tape.. Problem:Wound Care Scheduled documented in this encounter Care Teams Chopping Machine Operator Relationship Specialty Start Date End Date Lazarus Albert MD [address] [facility] DEPT [place] [address] PCP - General 09/25/19 03/04/24 documented as of this encounter
--- OUTSIDE RECORDS SUMMARY | 2024-08-08 16:04 | XMS_ITS | Encounter Summary ---
Author Organization [facility] Home Care Servic es Address [address] [place] [address] Phone Care Team Providers Care Manager Production Name Role Phone Lazarus Albert MD Primary Care Provider [phone] Encounter Details Date Type Department Care Team (Late st Contact Info) Description 05/13/2020 Orders Only [facility] Home Care Services [address] [place] [address] Chuckie Logan [facility] Social History Tobacco Use Types Packs/Day Years Used Date Smoking Tobacco: Former Cigarettes 2 26.6 1 982 - 03/19/2008 E-cigarettes Smokeless Tobacco: Never Alcohol Use Standard Drinks/Week Comments Yes 0 (1 standard drink = 0.6 oz pur e alcohol) rarely Comments No Sex and Gender Information Value Date Recorded Sex Assigned at Not on file Legal 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 Gender Identity Not on file Sexual Orientation Not on file documented as of this encounter Plan of Treatment Not on file documented as of this encounter Visit Diagnoses Not on filedocumented in this encounter Discontinued Medications Medication Sig Discontinue Reason Start Date End Da te sodium chloride 0.9% injection Administer 0.5-20 mL into catheter as needed for line care Therapy completed 04/28/2020 05/13/2020 sodium chloride 0.9% injection Administer 5-10 mL into catheter every 12 (twelve) hours Therapy completed 04/28/2020 05/13/2020 documented as of this encounter Additional Health Concerns Infection Onset Date Last Indicated Resolved Time 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
--- OUTSIDE RECORDS SUMMARY | 2024-08-08 16:04 | XMS_ITS | Encounter Summary ---
Author Organization [facility] Home Care Serv[facility] es Address [address] [place] [address] Phone Care Team Providers Care Pin Puller Name Role Phone Lazarus Albert MD Primary Care Provider [phone] Reason for Visit * Reason Comments Wound Care * Auth/Cert Specialty Diagnoses / Procedures Referred By Contmerissa t Referred To Contact Referral ID Status Reason Start Date Expiration Date Visits Re quested Visits Authorized [id number] 1 1 Encounter Details Date Type Department Care Team (Late st Contact Info) Description 05/15/2020 9:30 AM CDT Home Care Visit [facility] Health [address] [address] [address] [place] [address] Liliana Hickman, KAT SN HOME VISIT Social History Tobacco [...] on file Legal Sex Female 5:42 AM SECTION CHIEF Gender Identity Not on file Sexual Orientation Not on file documented as of this encounter Last Filed Vital Signs Vital Sign Reading Time Taken Comments Blood Pressure 134/80 05/15/2020 9:53 AM CDT Pulse 104 05/15/2020 9:53 AM CDT Temperature 38 ??C (100.4 ??F) 05/15/2020 9:53 AM CDT Respiratory Rate 16 05/15/2020 9:53 AM CDT Oxygen Saturation 99% 05/15/2020 9:53 AM CDT Inhaled Oxygen Concentration - - [...] urine 01/14/21 09/19/2019 02/09/2021 10/10/2021 4:00 AM SECTION CHIEF documented as of this encounter Home Health [...] Care Facility Wound care needed 04/29/2020 Active - 1 problem intervention scheduled/document ed in this visit Goals Goal Associated Problem Outcome Goal Met? Visit Notes Patient recieves care at the most appropriate care setting Description: Patient receives care at the most appropriate care setting. Homebound Status No Measure vital signs during every home health visit during episode of care Description: Home clinical informatics physician to measure vital signs during every home health visit during episode of care. Monitor patient's vital signs every home health visit No Knowledgeable on Woundcare Description: Patient/caregiver will be knowledgeable on woundcare procedure, wound healing and when to seek medical attention by end of first visit. Wound Education and Management No Interventions Intervention Associated Problem/Goal Status Variance [...] health visit during episode of care Completed Demonstration of Wound Care Description: Patient/caregiver will complete a return demonstration on wound care to SN or PT. Observed return wound care on in 1 week. Problem:Wound Education and Management Goal:Knowledgeable on Woundcare Completed Perform dressing change Description: Perform dressing [...] and secure with tape.. Problem:Wound Care Completed Site mid abdomen, Skilled Nurse/ pt/ cg [...] secure with tape.. documented in this encounter Care Teams Pin Puller Relationship Specialty Start Date End Date Lazarus Albert MD [address] [place] [address] PCP - General 09/25/19 03/04/24 documented as of this encounter
--- OUTSIDE RECORDS SUMMARY | 2024-08-08 16:04 | XMS_ITS | Encounter Summary ---
Author Organization [facility] Home Care [facility] Address [address] [place] [address] Phone Care Team Providers Care Hazardous Waste Technician Name Role Phone Lazarus Albert MD Primary Care Provider [phone] Reason for Visit * Auth/Cert Specialty Diagnoses / Procedures Referred By Susan t Referred To Contact Referral ID Status Reason Start Date Expiration Date Visits Re quested Visits Authorized [id number] 1 1 Encounter Details Date Type Department Care Team (Late st Contact Info) Description 04/29/2020 Home Care Visit [facility] Home Health - [address] [place] [address] Taylor Eckert, RN CARE CONFERENCE Social History Tobacco Use Types Packs/Day Years Used Date Smoking Tobacco: Former Cigarettes 2 26.6 1 982 - 03/19/2008 E-cigarettes Smokeless Tobacco: Never Alcohol Use Standard Drinks/Week Comments Yes 0 (1 standard drink = 0.6 oz pur e alcohol) rarely Comments No Sex and Gender Information Value Date Recorded Sex Assigned at Not on file Legal Sex Female 5: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 SPECIALIST Gender Identity Not on file Sexual Orientation Not on file documented as of this encounter Plan of Treatment Not on file documented as of this encounter Visit Diagnoses Not on filedocumented in this encounter Additional Health Concerns Infection Onset Date Last Indicated Resolved Time 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
--- OUTSIDE RECORDS SUMMARY | 2024-08-08 16:04 | XMS_ITS | Encounter Summary ---
Author Organization [facility] Home [facility] Address [address] [place] [address] Phone Care Team Providers Care Toolroom Keeper Name Role Phone Lazarus Albert MD Primary Care Provider [phone] Reason for Visit * Auth/Cert Specialty Diagnoses / Procedures Referred By Susan arce Referred To Contact Referral ID Status Reason Start Date Expiration Date Visits Re quested Visits Authorized [id number] 1 1 Encounter Details Date Type Department Care Team (Latest Contact Info) Description 06/23/2020 1:00 PM FEEDER TENDER Home Care Visit [facility] Home Health [address] [address] [address] [place] [address] Liliana Hickman RN SN NON OASIS DISCHARGE Social History Tobacco Use Types Packs/Day Years Used Date Smoking Tobacco: Former Cigarettes 2 26.6 1 982 - 03/19/2008 E-cigarettes Smokeless Tobacco: Never Alcohol Use Standard Drinks/Week Comments Yes 0 (1 standard drink = 0.6 oz pur e alcohol) rarely Comments No Sex and Gender Information Value Date Recorded Sex Assigned at Not on file Legal Sex Female 5:42 AM FEEDER TENDER Gender Identity Not on file Sexual Orientation Not on file documented as of this encounter Last Filed Vital Signs Vital Sign Reading Time Taken Comments Blood Pressure 108/80 06/23/2020 12:51 PM FEEDER TENDER Pulse 114 06/23/2020 12:51 PM FEEDER TENDER Temperature 36.7 ??C (98 ??F) 06/23/2020 12:51 PM FEEDER TENDER Respiratory Rate 18 06/23/2020 12:51 PM FEEDER TENDER Oxygen Saturation 99% 06/23/2020 12:51 PM FEEDER TENDER Inhaled Oxygen Concentration - - Weight - - Height - - Body Mass Index - - documented in this encounter Plan of Treatment Not on file documented as of this encounter Visit Diagnoses Not on filedocumented in this encounter Additional Health Concerns Infection Onset Date Last Indicated Resolved Time 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, nares 04/22/20; 01/18/21; urine 01/14/21 09/19/2019 02/09/2021 10/10/2021 4:00 AM FEEDER TENDER documented as of this encounter Home Health Visit - Care Plan Visit Details Visit Type -SN Non-OASIS Dis charge Discipline -Fpc Problems Problem Description Start Date Status Goals Interve ntions Homebound Status Disciplines: Fpc Patient's homebound status 04/29/2020 Active 1 goal linked to scheduled/documen tee intervention 1 goal intervention scheduled/document ed in this visit Monitor patient's vital signs every home health visit Disciplines: Fpc Monitor patient's vital signs every home health visit. 04/29/2020 Active 1 goal linked to scheduled/documen tee intervention 1 goal intervention scheduled/document ed in this visit Infection Prevention Disciplines: Fpc Infection Prevention 04/29/2020 Active 1 goal linked to scheduled/documen tee intervention 1 goal intervention scheduled/document ed in this visit Wound Education and Management Disciplines: Fpc Deficiency of cognitive information related to wound care 04/29/2020 Active 1 goal linked to scheduled/documen tee intervention 1 goal intervention scheduled/document ed in this visit Wound Care Disciplines: Fpc Wound care needed 04/29/2020 Active - 1 problem intervention scheduled/document ed in this visit Goals Goal Associated Problem Outcome Goal Met? Visit Notes Patient recieves care at the most appropriate care setting Description: Patient receives care at the most appropriate care setting. Homebound Status No Measure vital signs during every home health visit during episode of care Description: Home innersole maker to measure vital signs during every home health visit during episode of care. Monitor patient's vital signs every home health visit No Verbalize signs of infection Description: Verbalize signs of infection Infection Prevention No Knowledgeable on Woundcare Description: Patient/caregiver will [...] most appropriate care setting Completed Patient is d/c from home health today and no longer homebound Monitor Vital Signs Description: Monitor blood pressure, [...] Problem:Infection Prevention Goal:Verbalize signs of infection Completed Educate on Wound Care Management Description: Instruct patient/caregiver on wound care per MD orders per Wound Education Booklet, may include written directions and or photos for patient/caregiver education. Problem:Wound Education and Management Goal:Knowledgeable on Woundcare Completed Pt/cg demonstrated good understanding of wound care. No s/s infection. Very minimal packing required. Perform dressing change Description: Perform dressing change: [...] tape.. documented in this encounter Care Teams Toolroom Keeper Relationship Specialty Start Date End Date Lazarus Albert MD [address] [place] [address] PCP - General 09/25/19 03/04/24 documented as of this encounter
--- OUTSIDE RECORDS SUMMARY | 2024-08-08 16:04 | XMS_ITS | Encounter Summary ---
Author Organization [facility] Address [address] [place] [address] Phone Care Team Providers Care Clinical Manager Home Care Name Role Phone Lazarus Albert MD Primary Care Provider [phone] Reason for Visit * Auth/Cert Specialty Diagnoses / Procedures Referred By Susan arce Referred To Contact Referral ID Status Reason Start Date Expiration Date Visits Re quested Visits Authorized [id number] 1 1 Encounter Details Date Type Department Care Team (Latest Contact Info) Description 04/29/2020 9:00 AM CDT Home Care Visit [facility] [address] [address] [address] [place] [address] Taylor Eckert RN SN NON OASIS START OF CARE Social History Tobacco Use Types Packs/Day Years Used Date Smoking Tobacco: Former Cigarettes 2 26.6 1 982 - 03/19/2008 E-cigarettes Smokeless Tobacco: Never Alcohol Use Standard Drinks/Week Comments Yes 0 (1 standard drink = 0.6 oz pur e alcohol) rarely Comments No Sex and Gender Information Value Date Recorded Sex Assigned at Not on file Legal Sex Female 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 Gender Identity Not on file Sexual Orientation Not on file documented as of this encounter Last Filed Vital Signs Vital Sign Reading Time Taken Comments Blood Pressure 128/70 04/29/2020 8:36 AM CDT Pulse 108 04/29/2020 8:36 AM CDT Temperature 37.1 ??C (98.8 ??F) 04/29/2020 8:36 AM CD T Respiratory Rate 12 04/29/2020 8:36 AM CDT Oxygen Saturation 98% 04/29/2020 8:36 AM CDT Inhaled Oxygen Concentration - - [...] urine 01/14/21 09/19/2019 02/09/2021 10/10/2021 4:00 AM SPORTS EQUIPMENT SUPERVISOR documented as of this encounter Home Health Visit - Care Plan Visit Details Visit Type -SN Non-OASIS Sta rt of Care Discipline -Residential Problems Problem Description Start Date Status Goals Interve ntions Homebound Status Disciplines: Residential Patient's homebound status 04/29/2020 Active 1 goal linked to scheduled/documen tee intervention 1 goal intervention scheduled/document ed in this visit Medications Disciplines: Residential Management of home medications 04/29/2020 Active 1 goal linked to scheduled/documen tee intervention 2 goal interventions scheduled/document ed in this visit Monitor patient's vital signs every home health visit Disciplines: Residential Monitor patient's vital signs every home health visit. 04/29/2020 Active 1 goal linked to scheduled/documen tee intervention 1 goal intervention scheduled/document ed in this visit Infection Prevention Disciplines: Residential Infection Prevention 04/29/2020 Active 1 goal linked to scheduled/documen tee intervention 1 goal intervention scheduled/document ed in this visit Fall Precautions/S afety Concerns Disciplines: Residential Alteration in safety 04/29/2020 Active 1 goal linked to scheduled/documen tee intervention 1 goal intervention scheduled/document ed in this visit IV Therapy-Manag ement, Education, and Maintenance Disciplines: Residential Teaching and learning needs for performing home IV therapy 04/29/2020 Active - 4 problem interventions scheduled/document ed in this visit Wound Risk of Infection Disciplines: Residential Risk of infections related to wounds 04/29/2020 Active 1 goal linked to scheduled/documen tee intervention 1 goal intervention scheduled/document ed in this visit Wound Care Disciplines: Residential Wound care needed 04/29/2020 Active 1 goal linked to scheduled/documen tee intervention 3 goal interventions scheduled/document ed in this visit [...] visit during episode of care Description: Home care clinician to measure vital signs during every home health visit during episode of care. Monitor patient's vital signs every home health visit No Verbalize signs of infection Description: Verbalize signs of infection Infection Prevention No Demonstrate use of safety precautions Description: Demonstrate use of safety precautions Fall Precautions/Safety Concerns No Knowledgeable of infection Description: : Patient [...] antibiotics, and has open, draining abdominal wound.. Instruct on Medication Management Description: Instruct patient/caregiver in medication administration, purpose, dosages, preparation, scheduling, side effects, food/drug interactions, storage, drug allergies, and potential complications. Problem:Medications Goal:Understand and follow medication therapy Completed Patient and Caregiver instructed on medication administration, purpose, dosages, preparation, scheduling, side effects, food/drug interactions, and potential complications. Current regimen and compliance reviewed with Patient and Caregiver. Patient and Caregiver verbalizes ability to perform safe home medication administration. Medications taught during visit. Instruct on High Risk Medications Description: Instruct patient/caregiver on high-risk/high-alert medications, including: anti-convulsant, anti-retroviral, anti-coagulant, chemotherapeutic, hypo-glycemic, immunosuppressant, insulin, and opioid. Problem:Medications Goal:Understand and follow medication therapy Completed Teaching High-risk/high-alert medications (specifically Vanco and oxycodone ) with Patient and Caregiver. They v/u. Monitor Vital Signs Description: Monitor blood pressure, pulse, oxygen saturation, respirations Problem:Monitor patient's vital signs every home health visit Goal:Measure vital signs during every home health visit during episode of care Completed Educate Family on Infection Prevention Description: Instructed family on signs and symptoms of infection IE: fever, odor, change in color, increased amount of drainage, purulent drainage, warmth. Problem:Infection Prevention Goal:Verbalize signs of infection Completed Inst on proper handwashing before dressing change and IV administration [place] Fall Precautions Description: Assess patient safety Problem:Fall Precautions/Safety Concerns Goal:Demonstrate use of safety precautions Completed Peripheral Line Description: Instruct patient/caregiver in how to gather supplies, how to restock IV supplies in the home, prepare supplies, administer IV medication and disconnect IV medication, inspecting solution and supplies before infusing, and waste disposal. Problem:IV Therapy-Management, Education, and Maintenance Completed Instruct patient/caregiver in how to gather supplies, how to restock IV supplies in the home, prepare supplies, administer IV medication and disconnect IV medication, inspecting solution and supplies before infusing, and waste disposal. They v/u. PICC Line Description: Skilled Nurse to instruct patient/caregiver on how to properly administer medication saline and heparin. Skilled Nurse to instruct patient/caregiver to administer IV medication as ordered including saline and heparin flushes. Reason for Therapy: antibiotic. Problem:IV Therapy-Management, Education, and Maintenance Completed Skilled Nurse to instruct patient/caregiver to administer IV medication as ordered including saline and heparin flushes. Reason for Therapy: antibiotic. Spouse demonstrated his ability. Central Line Description: Instruct on operation and management of the pump. Instruct on alarm system, troubleshooting, battery changes (if applicable), and how to properly connect/disconnect infusion. Problem:IV Therapy-Management, Education, and Maintenance Completed Inst on [place] 60 pump and has written info with pictures in the home. Implanted Venous Access Device (PORT) In Use Description: Instruct patient/caregiver in how to perform flushing of IV line according to MD orders or protocol. Problem:IV Therapy-Management, Education, and Maintenance Completed Instruct patient/caregiver in how to perform flushing of IV line according to MD orders or protocol. Spouse return demonstrated Instruct Hand Washing Description: Instruct patient/caregiver on hand wash technique Problem:Wound Risk of Infection Goal:Knowledgeable of infection Completed Skilled assessment wound Description: Full wound assessment including measurement weekly. Wound assessment each visit Problem:Wound Care Goal:Progression towards healing Completed Wound Photo Description: Take and transmit wound photo. Problem:Wound Care Goal:Progression towards healing Completed Perform [...] Care Goal:Progression towards healing Completed Perform dressing change: Site mid abdomen, [...] Health Visit - Actions and Narratives Actions SOC report: Patient has an i nfected abdominal wound and is on Vanco every 12 hours. Has a PICC. 2x/week labs ordered. Abdominal wound care is wet to dry BID. Spouse able to do wound care and he is able to administer IV medication. H/O infected abdominal mesh. Hospitalized at [facility] from 04/22-04/28. No living condition concerns. SN 1w1, 2w5 with 8 PRN from [facility] infusion. documented in this encounter Care Teams Clinical Manager Home Care Relationship Specialty Start Date End Date Lazarus Albert MD [address] [facility] [place] [address] PCP - General 09/25/19 03/04/24 documented as of this encounter
--- OUTSIDE RECORDS SUMMARY | 2024-08-08 16:04 | XMS_ITS | Encounter Summary ---
Author Organization [facility] Address [address] [place] [address] Phone Care Team Providers Care Director Of Compliance Name Role Phone Lazarus Albert MD Primary Care Provider [phone] Encounter Details Date Type Department Care Team (Late st Contact Info) Description 04/26/2020 11:05 AM CDT Ancillary Procedure [facility] IP [address] [place] [address] Social History Tobacco Use Types Packs/Day Years Used Date Smoking Tobacco: Former Cigarettes 2 26.6 1 982 - 03/19/2008 E-cigarettes Smokeless Tobacco: Never Alcohol Use Standard Drinks/Week Comments Yes 0 (1 standard drink = 0.6 oz pur e alcohol) rarely Comments No Sex and Gender Information Value Date Recorded Sex Assigned at Not on file 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 Gender Identity Not on file Sexual Orientation Not on file documented as of this encounter Plan of Treatment Not on file documented as of this encounter Procedures Procedure Name Priority Date/Time Associated Diagnosis Comments US VEIN DUPLEX LOWER EXTREMITY BILATERAL COMPLETE IP Routine 04/26/2020 11:30 AM CDT documented in this encounter Results * US Vein Duplex Lower Extremity Bilateral Complete (04/26/2020 11:30 AM CDT) Anatomical Region Laterality Modality Vascular Bilateral Ultrasound 04/26/2020 11:0 5 AM CDT Narrative 04/26/2020 7:42 PM CDT [facility] - Department of Vascular Surgery, Vascular Laboratory [address] [place] [address] Lower Extremity Venous Ultrasound Report Patient Name: MADISON WEINBERG J : 1965 (54y 4m) Study Date: 04/26/2020 11:05:20 AM Gender: F Tech: Location: [id number] Ref.Provider: ROLF YEH Quality: Adequate Order Provider: LIBBY MEDELLIN Procedures: Vascular Report: Venous Duplex imaging was performed bilaterally in the lower extremities. The common femoral, femoral, popliteal, posterior tibial, peroneal veins were evaluated for patency, spontaneity and phasicity with Doppler, compression and augmentation maneuvers. Great saphenous vein proximal at the junction was evaluated with compression maneuvers. Indications: bilateral edema. Findings: Performing Principle Software Engineer: Lou Ward RVT. Bilateral: Venous Doppler signals [...] performed. Electronically Signed By: Manuel Valero MD [facility] [phone] 2020-04-26 19:42:00 CDT CC: CC: Procedure Note Manuel Valero MD - 04/26/2020 [facility] - Department of Vascular Surgery,Vascular Laboratory [address] [place] [address] Lower Extremity Venous Ultrasound Report Patient Name: MADISON WEINBERG JPatient ID: [id number] : 1965 (54y 4m)Study Date: 04/26/2020 11:05:20 AM Gender: FAccession #: [id number] Tech: DRLocation: [id number] Ref.Provider: ROLF YEHQuality: Adequate Order Provider: Angelita MEDELLIN #: [id number] Procedures: Vascular Report: Venous Duplex imaging was performed bilaterally in the lower extremities.The common femoral, femoral, popliteal, posterior tibial, peroneal veins wereevaluated for patency, spontaneity and phasicity with Doppler, compression and augmentationmaneuvers. Great saphenous vein proximal at the junction was evaluated with compressionmaneuvers. Indications: bilateral edema. Findings: Performing Principle Software Engineer: Lou Ward RVT. Bilateral: Venous Doppler signals [...] performed. 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
--- OUTSIDE RECORDS SUMMARY | 2024-08-08 16:04 | XMS_ITS | Encounter Summary ---
Author Organization [facility] Address [address] [place] [address] Phone Care Team Providers Care Ep Tech Name Role Phone Lazarus Albert MD Primary Care Provider [phone] Reason for Visit * Reason Onset Date Comments OPAT 05/02/2020 Encounter Details Date Type Department Care Team (Late st Contact Info) Description 05/02/2020 Telephone [facility] Infectious Diseases [address] [place] [address] [address] [place] [address] Erum Heard, STEVEN [address] [place] [address] OPAT Social History Tobacco Use Types Packs/Day Years Used Date Smoking Tobacco: Former Cigarettes 2 26.6 1 982 - 03/19/2008 E-cigarettes Smokeless Tobacco: Never Alcohol Use Standard Drinks/Week Comments Yes 0 (1 standard drink = 0.6 oz pur e alcohol) rarely Comments No Sex and Gender Information Value Date Recorded Sex Assigned at Not on file 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 Weinberg was being followed by the ID team for infected abdominal mesh with retained mesh. Shewas discharged from the hospital with plans of 2 weeks of IV vancomycin (end date 05/07) followed byBactrim DS BID. WBC: 05/01 7.9 Screat: 04/27 0.79 05/01 0.67 Vancomycin trough: 05/01 12.8 Added patient to vancomycin protocol. Noted that patient's potassium was 3.0 on 05/01. Attempted to contact patient without success. Will continue to reach out. Patient scheduled to follow up with ID on 05/23/2020. documented in this encounter Plan of Treatment Not on file documented as of this encounter Visit Diagnoses Not on filedocumented in this encounter Additional Health Concerns Infection Onset Date Last Indicated Resolved Time 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, nares 04/22/20; 01/18/21; urine 01/14/21 09/19/2019 02/09/2021 10/10/2021 4:00 AM TRAINING FACILITATOR documented as of this encounter Care Teams Ep Tech Relationship Specialty Start Date End Date Lazarus Albert MD [address] [facility] [place] [address] PCP - General 09/25/19 03/04/24 documented as of this encounter
--- OUTSIDE RECORDS SUMMARY | 2024-08-08 16:04 | XMS_ITS | Encounter Summary ---
Author Organization [facility] Address [address] [place] [address] Phone Care Team Providers Care Logistics Technician Name Role Phone Lazarus Albert MD Primary Care Provider [phone] Reason for Visit * Auth/Cert Specialty Diagnoses / Procedures Referred By Susan t Referred To Contact Referral ID Status Reason Start Date Expiration Date Visits Re quested Visits Authorized [id number] 1 1 Encounter Details Date Type Department Care Team (Late st Contact Info) Description 05/06/2020 Home Care Visit [facility] Home Health - [address] [place] [address] Jaz Monzon RN CASE COMMUNICATION Social History Tobacco Use Types Packs/Day Years Used Date Smoking Tobacco: Former Cigarettes 2 26.6 1 982 - 03/19/2008 E-cigarettes Smokeless Tobacco: Never Alcohol Use Standard Drinks/Week Comments Yes 0 (1 standard drink = 0.6 oz pur e alcohol) rarely Comments No Sex and Gender Information Value Date Recorded Sex Assigned at Not on file Legal Sex Female 5:42 AM 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 Gender Identity Not on file Sexual Orientation Not on file documented as of this encounter Plan of Treatment Not on file documented as of this encounter Visit Diagnoses Not on filedocumented in this encounter Additional Health Concerns Infection Onset Date Last Indicated Resolved Time 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, nares 04/22/20; 01/18/21; urine 01/14/21 09/19/2019 02/09/2021 10/10/2021 4:00 AM MEDICAL RESEARCH ASSISTANT documented as of this encounter Care Teams Logistics Technician Relationship Specialty Start Date End Date Lazarus Albert MD [address] [facility] [place] [address] PCP - General 09/25/19 03/04/24 documented as of this encounter
--- OUTSIDE RECORDS SUMMARY | 2024-08-08 16:04 | XMS_ITS | Encounter Summary ---
Author Organization [facility] Address [address] [place] [address] Phone Care Team Providers Care Academy Director Name Role Phone Lazarus Albert MD Primary Care Provider [phone] Encounter Details Date Type Department Care Team (Late st Contact Info) Description 07/13/2020 2:30 PM PLASTER BLOCK LAYER Office Visit [facility] Surgery [address] [facility] Advanced Medicine 8th [place] [address] [place] [address] Ari Partida MD [address] [facility] [phone] [place] [address] Infected prosthetic mesh of abdominal wall, subsequent [...] on file Legal Sex Female 5:42 AM PLASTER BLOCK LAYER Gender Identity Not on file Sexual Orientation Not on file documented as of this encounter Last Filed Vital Signs Vital Sign Reading Time Taken Comments Blood Pressure 124/78 07/13/2020 2:17 PM PLASTER BLOCK LAYER Pulse 100 07/13/2020 2:17 PM PLASTER BLOCK LAYER Temperature 37.1 ??C (98.8 ??F) 07/13/2020 2:17 PM CS T Respiratory Rate 16 07/13/2020 2:17 PM PLASTER BLOCK LAYER Oxygen Saturation 96% 07/13/2020 2:17 PM PLASTER BLOCK LAYER Inhaled Oxygen Concentration - - Weight 54.3 kg (119 lb 9.6 oz) 07/13/2020 2:17 P M PLASTER BLOCK LAYER Height 165.1 cm (5' 5 ) 07/13/2020 2:17 PM PLASTER BLOCK LAYER Body Mass Index 19.9 07/13/2020 2:17 PM PLASTER BLOCK LAYER documented in this encounter Progress Notes * Ari Partida MD - 07/13/2020 2:30 PM CST Images from the original note were not included. [facility] Critical Care CAM outpatient progress note DATE OF SERVICE: April 06 2020 Madison Weinberg 1965 [id number] Osvaldo Escobedo MD has requested that I see Madison Weinberg in clinic for evaluation of Abdominal pain and infection of the midline wound. Encounter Diagnosis Name Primary? Infected prosthetic mesh of abdominal wall, subsequent encounter Yes Chief complaint: Draining abdominal wall sinus History of Present Illness Ms. Weinberg is a 54 y.o. female here for evaluation of abdominal pain and draining lower midline wound. She has a complex medical history the started with surgery over 27 years ago endometriosis. Most recently she had multiple surgeries at the [facility] in [place]. She was seen there by Dr. Mehdi [...] Patient has chronic abdominal pain was unchanged Update July 13 2020 Underwent biologic mesh excision from a lower aspect of her abdominal wall in April 22 2020 This was an onlay mesh. The upper aspect of the mesh which was well incorporated was left intact. The abdominal wall was also left open and the surrounding tissue was excised including suture removal. The wound has subsequently been allowed to heal by granulation tissue secondary intention and has done well. No new complaints today. No further abdominal pain. No further draining sinus. Patient is very anxious as she has dealt with the persistently draining lower abdominal sinus tractfor a long time and she is worried about recurrence. Patient is on long-term suppressive antibiotic therapy overall under the guidance of Infectious Diseases Past Medical History Past Medical History: Diagnosis [...] date: 1981 Quit date: 03/19/2008 Years since quittin.3 ??? Smokeless tobacco: Never Used Substance and [...] file Gets together: Not on file Attends yazidism service: Not on file Active member of [...] Physical Exam: Ht:165.1 cm (5' 5 ) Wt:54.3 kg (119 lb 9.6 oz) Body mass index is 19.9 kg/m??. BP 124/78 (BP Location: Left arm) Pulse 100 Temp 37.1 ??C (98.8 ??F) (Temporal) Resp 16 Ht 165.1 cm (5' 5 ) Wt 54.3 kg (119 lb 9.6 oz) SpO2 96% BMI 19.90 kg/m?? GENERAL- no acute distress, comfortable NEURO- alert and oriented PSYCH- Mood and affect appropriate HEENT- EOMs grossly normal, no scleral icterus, mucous membranes moist LYMPHATICS- no palpable lymphadenopathy CARDIAC- regular rate and rhythm RESP- nonlabored respirations GI- abdomen soft, nondistended, multiple scars including a midline an old healed ostomy site Well-healed lower abdominal incision heal by secondary intention from the mesh excision. There is no palpable hernia defect. MSK- grossly normal range of motion EXTREMITIES- extremities warm and dry, no swelling INTEGUMENT skin warm and dry, Assessment and Plan: Patient underwent lower abdominal onlay biologic mesh excision which was still in place from surgery a few years ago. The wound was allowed to heal by 2nd intention has done well. There is no draining sinus tract. Permanent suture was also removed. The patient is on long-term suppressive antibiotic therapy under the auspices of ID Patient is overall doing well with no further complaints. Unfortunately Patient understands that chronic pain may be an ongoing issue despite mesh excision, sinus tract excision and parents suture removal. Upper aspect onlay mesh was well incorporated and still intact, and in place and is biologic. This has the potential to be infected but this was only be dealt with if this happens. Follow-up will be on an as-needed basis as the patient and her live some distance away No activity restrictions Ari Partida MD TER BLOCK LAYER documented in this encounter Plan of Treatment Not on file documented as of this encounter Visit Diagnoses Diagnosis Infected prosthetic mesh of abdominal wall, subsequent encounter- Primary documented in this encounter Additional Health Concerns Infection Onset Date Last Indicated Resolved Time 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, nares 04/22/20; 01/18/21; urine 01/14/21 09/19/2019 02/09/2021 10/10/2021 4:00 AM PLASTER BLOCK LAYER documented as of this encounter Care Teams Academy Director Relationship Specialty Start Date End Date Lazarus Albert MD [address] [facility] [place] [address] PCP - General 09/25/19 03/04/24 documented as of this encounter
--- OUTSIDE RECORDS SUMMARY | 2024-08-08 16:04 | XMS_ITS | Encounter Summary ---
Author Organization [facility] Home Care Servic es Address [address] [place] [address] Phone Care Team Providers Care Database Marketing Specialist Name Role Phone Lazarus Albert MD Primary Care Provider [phone] Reason for Visit * Auth/Cert Specialty Diagnoses / Procedures Referred By Susan t Referred To Contact Referral ID Status Reason Start Date Expiration Date Visits Re quested Visits Authorized [id number] 1 1 Encounter Details Date Type Department Care Team (Late st Contact Info) Description 05/19/2020 Home Care Visit [facility] Home Health - [address] [place] [address] Harper Pena, PRIMARY OPERATOR SCREENING CASE COMMUNICATION Social History Tobacco Use Types Packs/Day Years Used Date Smoking Tobacco: Former Cigarettes 2 26.6 1 982 - 03/19/2008 E-cigarettes Smokeless Tobacco: Never Alcohol Use Standard Drinks/Week Comments Yes 0 (1 standard drink = 0.6 oz pur e alcohol) rarely Comments No Sex and Gender Information Value Date Recorded Sex Assigned at Not on file Legal Sex Female 5:42 AM DIAGNOSTIC SALES SPECIALIST Gender Identity Not on file Sexual Orientation Not on file documented as of this encounter Plan of Treatment Not on file documented as of this encounter Visit Diagnoses Not on filedocumented in this encounter Additional Health Concerns Infection Onset Date Last Indicated Resolved Time 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
--- OUTSIDE RECORDS SUMMARY | 2024-08-08 16:04 | XMS_ITS | Encounter Summary ---
Author Organization [facility] Home Care Servic es Address [address] [place] [address] Phone Care Team Providers Care Timber Bucker Name Role Phone Lazarus Albert MD Primary Care Provider [phone] Reason for Visit * Auth/Cert Specialty Diagnoses / Procedures Referred By Susan t Referred To Contact Referral ID Status Reason Start Date Expiration Date Visits Re quested Visits Authorized [id number] 1 1 Encounter Details Date Type Department Care Team (Late st Contact Info) Description 06/01/2020 4:00 PM CDT Home Care Visit [facility] Health [address] [address] [address] [place] [address] Donna Mcintosh RN SN HOME VISIT Social [...] on file Legal Sex Female 5:42 AM RELAY MECHANIC Gender Identity Not on file Sexual Orientation Not on file documented as of this encounter Last Filed Vital Signs Vital Sign Reading Time Taken Comments Blood Pressure 120/74 06/01/2020 1:40 PM CDT Pulse 80 06/01/2020 1:40 PM CDT Temperature 35.6 ??C (96.1 ??F) 06/01/2020 1:40 PM CD T Respiratory Rate 18 06/01/2020 1:40 PM CDT Oxygen Saturation 93% 06/01/2020 1:40 PM CDT Inhaled Oxygen Concentration - - [...] urine 01/14/21 09/19/2019 02/09/2021 10/10/2021 4:00 AM RELAY MECHANIC documented as of this encounter Home Health Visit - Care Plan Visit Details Visit Type -SN Home Visit Discipline -Half-Way Problems Problem Description Start Date Status Goals Interve ntions Homebound Status Disciplines: Half-Way Patient's homebound status 04/29/2020 Active 1 goal linked to scheduled/documen tee intervention 1 goal intervention scheduled/document ed in this visit Monitor patient's vital signs every home health visit Disciplines: Half-Way Monitor patient's vital signs every home health visit. 04/29/2020 Active 1 goal linked to scheduled/documen tee intervention 1 goal intervention scheduled/document ed in this visit Infection Prevention Disciplines: Half-Way Infection Prevention 04/29/2020 Active 1 goal linked to scheduled/documen tee intervention 1 goal intervention scheduled/document ed in this visit Wound Risk of Infection Disciplines: Half-Way Risk of infections related to wounds 04/29/2020 Active 1 goal linked to scheduled/documen tee intervention 1 goal intervention scheduled/document ed in this visit Wound Care Disciplines: Half-Way Wound care needed 04/29/2020 Active 1 goal [...] visit during episode of care Description: Home production ski repairer to measure vital signs during every home [...] Problem:Infection Prevention Goal:Verbalize signs of infection Completed Paitent and verbalize understanding. Instruct on the signs and symptoms of infection Description: Assess wound with each visit for s/sx of infection Problem:Wound Risk of Infection Goal:Knowledgeable of infection Completed No signs of infection noted. Skilled assessment wound Description: Full wound assessment including measurement weekly. Wound assessment each visit Problem:Wound Care Goal:Progression towards healing Completed Measurements this visit. Perform dressing change Description: Perform dressing change: [...] and secure with tape.. Problem:Wound Care Completed Performed this visit. Patient tolerated well documented in this encounter Care Teams Timber Bucker Relationship Specialty Start Date End Date Lazarus Albert MD [address] [place] [address] PCP - General 09/25/19 03/04/24 documented as of this encounter
--- OUTSIDE RECORDS SUMMARY | 2024-08-08 16:04 | XMS_ITS | Encounter Summary ---
Author Organization [facility] Home Care Servic es Address [address] [place] [address] Phone Care Team Providers Care Instrument Specialist Name Role Phone Lazarus Albert MD Primary Care Provider [phone] Reason for Visit * Auth/Cert Specialty Diagnoses / Procedures Referred By Susan arce Referred To Contact Referral ID Status Reason Start Date Expiration Date Visits Re quested Visits Authorized [id number] 1 1 Encounter Details Date Type Department Care Team (Late st Contact Info) Description 05/01/2020 9:00 AM CDT Home Care Visit [facility] Health [address] [address] [address] [place] [address] Taylor Eckert RN SN HOME VISIT Social [...] on file Legal Sex Female 5:42 AM CROSSCUTTER Gender Identity Not on file Sexual Orientation Not on file documented as of this encounter Last Filed Vital Signs Vital Sign Reading Time Taken Comments Blood Pressure 106/72 05/01/2020 8:16 AM CDT Pulse 102 05/01/2020 8:16 AM CDT Temperature 37.1 ??C (98.8 ??F) 05/01/2020 8:16 AM CD T Respiratory Rate 20 05/01/2020 8:16 AM CDT Oxygen Saturation 99% 05/01/2020 8:16 AM CDT Inhaled Oxygen Concentration - - [...] urine 01/14/21 09/19/2019 02/09/2021 10/10/2021 4:00 AM CROSSCUTTER documented as of this encounter Home Health [...] in this visit Collect Specimen/Lab Draw Disciplines: [facility] Management of specimen samples, including lab draws, stool, urine, & tissue. 04/29/2020 Active - 1 problem intervention scheduled/document ed in this visit [place] Precautions Disciplines: [facility] [place] Precautions 04/29/2020 Active 1 goal linked to scheduled/documen tee intervention 1 goal intervention scheduled/document ed in this visit IV Therapy-Managem ent, Education, and Maintenance Disciplines: [facility] Teaching and learning needs for performing home IV therapy 04/29/2020 Active - 2 problem interventions scheduled/document ed in this visit Wound Education [...] visit during episode of care Description: Home camp recreation specialist to measure vital signs during every home health visit during episode of care. Monitor patient's vital signs every home health visit No Demonstrate knowledge of universal precautions Description: Demonstrate knowledge of universal precautions [place] Precautions No Knowledgeable on Woundcare Description: Patient/caregiver will [...] appropriate care setting Completed Patient remains homebound due to immunosuppression, IV antibiotics, open draining abdominal wound, weak, needs assist with transfers. Monitor Vital Signs Description: Monitor blood pressure, [...] CBC weekly. Time 0830am. Fax results to [phone] and [phone]. Ordering MD Dr Danyel Colin, phone number [phone]. Record number of attempts, delivery to lab method, & confirmation details. Problem:Collect Specimen/Lab Draw Completed Labs drawn from PICC without any problems for Vanc trough, CBC and BMP. Lab express to and delivver to [facility] lab. Aspects of Care Description: Instruct patient/caregiver on universal precautions and home infection control measures Problem:[place] Precautions Goal:Demonstrate knowledge of universal precautions Completed Midline Description: Skilled Nurse to instruct patient/caregiver on dressing change frequency. Central venous line dressing to be changed 48 hours if there is gauze under the occlusive dressing, dressing is soiled or non-occlusive. Weekly IV site dressing changes to be performed if no issues. Securement device to be used with appropriate lines. Skilled Nurse to instruct patient/caregiver on the purpose of doing measurements of line migration and arm circumference weekly and PRN. Type of line: PICC Problem:IV Therapy-Management, Education, and Maintenance Completed PICC line dressing change using sterile technique, claves changed. IV Management and Education Description: Skilled Nurse to change line dressing change within 48 hours if there is gauze under the occlusive dressing, dressing is soiled, or non-occlusive. Weekly IV site dressing changes to be performed if no issues. Skilled Nurse to measure line migration and arm circumference at SOC and weekly with dressing change. Skilled Nurse to place disinfecting caps to the end of each line upon completion of infusion/flushes. Problem:IV Therapy-Management, Education, and Maintenance Completed Demonstration of Wound Care Description: Patient/caregiver will complete a return demonstration on wound care to SN or PT. Observed return wound care on in 1 week. Problem:Wound Education and Management Goal:Knowledgeable on Woundcare Completed bserved spouse change dresssing. Competent Skilled assessment wound Description: Full wound assessment [...] Health Visit - Actions and Narratives Actions Labs drawn from PICC without any problems for Vanc trough, CBC and BMP. Lab express to pu and delivver to [facility] lab. PICC line dressing change using sterile technique, claves changed. documented in this encounter Care Teams Instrument Specialist Relationship Specialty Start Date End Date Lazarus Albert MD [address] [facility] [place] [address] PCP - General 09/25/19 03/04/24 documented as of this encounter
--- OUTSIDE RECORDS SUMMARY | 2024-08-08 16:04 | XMS_ITS | Encounter Summary ---
Author Organization [facility] Home Care Servic es Address [address] [place] [address] Phone Care Team Providers Care Grill Prep Cook Name Role Phone Lazarus Albert MD Primary Care Provider [phone] Encounter Details Date Type Department Care Team (Late st Contact Info) Description 04/28/2020 Home Care Visit [facility] Health [address] [address] [address] [place], [place] [id number] Taylor Eckert WOOL GROWER SCREENING CASE COMMUNICATION Social History Tobacco Use Types Packs/Day Years Used Date Smoking Tobacco: Former Cigarettes 2 26.6 1 982 - 03/19/2008 E-cigarettes Smokeless Tobacco: Never Alcohol Use Standard Drinks/Week Comments Yes 0 (1 standard drink = 0.6 oz pur e alcohol) rarely Comments No Sex and Gender Information Value Date Recorded Sex Assigned at Not on file Legal Sex Female 5:42 AM CHILDCARE ADMINISTRATOR Gender Identity Not on file Sexual Orientation Not on file documented as of this encounter Plan of Treatment Not on file documented as of this encounter Visit Diagnoses Not on filedocumented in this encounter Additional Health Concerns Infection Onset Date Last Indicated Resolved Time 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
--- OUTSIDE RECORDS SUMMARY | 2024-08-08 16:04 | XMS_ITS | Encounter Summary ---
Author Organization [facility] Home Care Servic es Address [address] [place] [address] Phone Care Team Providers Care Industrial Pharmacist Name Role Phone Lazarus Albert MD Primary Care Provider [phone] Reason for Visit * Auth/Cert Specialty Diagnoses / Procedures Referred By Susan t Referred To Contact Referral ID Status Reason Start Date Expiration Date Visits Re quested Visits Authorized [id number] 1 1 Encounter Details Date Type Department Care Team (Late st Contact Info) Description 06/01/2020 Home Care Visit [facility] Home Health - [address] [place] [address] Donna Mcintosh, DIRECTOR GLOBAL STRATEGIC PUBLISHER SALES SCREENING CASE COMMUNICATION Social History Tobacco Use Types Packs/Day Years Used Date Smoking Tobacco: Former Cigarettes 2 26.6 1 982 - 03/19/2008 E-cigarettes Smokeless Tobacco: Never Alcohol Use Standard Drinks/Week Comments Yes 0 (1 standard drink = 0.6 oz pur e alcohol) rarely Comments No Sex and Gender Information Value Date Recorded Sex Assigned at Not on file Legal Sex Female 5:42 AM PROFESSOR OF PRACTICE Gender Identity Not on file Sexual Orientation Not on file documented as of this encounter Plan of Treatment Not on file documented as of this encounter Visit Diagnoses Not on filedocumented in this encounter Additional Health Concerns Infection Onset Date Last Indicated Resolved Time 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
--- OUTSIDE RECORDS SUMMARY | 2024-08-08 16:04 | XMS_ITS | Encounter Summary ---
Author Organization [facility] Home Care Servic es Address [address] [place] [address] Phone Care Team Providers Care Manager Of Corporate Name Role Phone Lazarus Albert MD Primary Care Provider [phone] Reason for Visit * Auth/Cert Specialty Diagnoses / Procedures Referred By Susan t Referred To Contact Referral ID Status Reason Start Date Expiration Date Visits Re quested Visits Authorized [id number] 1 1 Encounter Details Date Type Department Care Team (Late st Contact Info) Description 05/05/2020 Home Care Visit [facility] Home Health - [address] [place] [address] Jaz Monzon RN TRAVEL SCREENING CASE COMMUNICATION Social History [...] on file Legal Sex Female 5:42 AM ASSISTANT INFANT TODDLER TEACHER Gender Identity Not on file Sexual Orientation Not on file documented as of this encounter Plan of Treatment Not on file documented as of this encounter Visit Diagnoses Not on filedocumented in this encounter Additional Health Concerns Infection Onset Date Last Indicated Resolved Time 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
--- OUTSIDE RECORDS SUMMARY | 2024-08-08 16:05 | XMS_ITS | Encounter Summary ---
Author Organization [facility] Healthcare Address [address] [place] [address] Care Team Providers Care Inventory Control/Shipping Receiving Name Role Phone Mook Koch MD Primary Care Provi franky Encounter Details Date Type Department Care Team (Late st Contact Info) Description 05/15/2007 12:01 AM CDT - 05/15/2007 11:59 PM CDT Hospital Encounter [facility] Mook Koch MD [address] [place] [id number] Social History Tobacco Use Types Packs/Day Years Used Date Smoking Tobacco: Never Assessed Comments Unknown Sex and Gender Information Value Date Recorded Sex Assigned at Not on file Legal Sex Female 5:42 AM THERMAL CUTTER HAND Gender Identity Not on file Sexual Orientation Not on file documented as of this encounter Plan of Treatment Not on file documented as of this encounter Visit Diagnoses Not on filedocumented in this encounter Care Teams Inventory Control/Shipping Receiving Relationship Specialty Start Date End Date Mook Koch MD PCP - General 09/03/06 12/22/07 documented as of this encounter
--- OUTSIDE RECORDS SUMMARY | 2024-08-08 16:05 | XMS_ITS | Encounter Summary ---
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 Role Phone Lazarus Albert MD Primary Care Provider [phone] Reason for Visit * Reason Comments Abdominal Pain Encounter Details Date Type Department Care Team (Late st Contact Info) Description 02/06/2020 5:55 AM CDT - 02/06/2020 3:13 PM CDT Emergency [facility] Emergency Department [address] [place] [id number] Jose Sun MD [address] [place] [address] Tnia Garcias MD [address] [facility] [phone] [place] [address] Abdominal pain (Primary Dx); Vomiting Discharge Disposition: Discharge to home or self care Social History Tobacco Use Types Packs/Day Years Used Date Smoking Tobacco: Former Cigarettes 2 12 E-cigarettes Smokeless Tobacco: Never Alcohol Use Standard Drinks/Week Comments Not Currently 0 (1 standard drink = 0.6 oz pur e alcohol) rarely Comments Unknown Sex and Gender Information Value Date Recorded Sex Assigned at Not on file Legal Sex Female 5:42 AM [employer] Gender Identity Not on file Sexual Orientation Not on file documented as of this encounter Last Filed Vital Signs Vital Sign Reading Time Taken Comments Blood Pressure 162/78 02/06/2020 3:00 PM CDT Pulse 81 02/06/2020 3:00 PM CDT Temperature 36.4 ??C (97.5 ??F) 02/05/2020 8:43 PM CD T Respiratory Rate 18 02/05/2020 8:43 PM CDT Oxygen Saturation 100% 02/06/2020 3:00 PM CDT Inhaled Oxygen Concentration - - Weight 53.5 kg (118 lb) 02/05/2020 8:43 PM CDT Height 162.6 cm (5' 4 ) 02/05/2020 8:43 PM CDT Body Mass Index 20.25 02/05/2020 8:43 PM CDT documented in this encounter Discharge Diagnoses Diagnosis Unspecified abdominal pain - UNSPECIFIED ABDOMINAL PAIN Vomiting, unspecified - VOMITING, UNSPECIFIED Anxiety disorder, unspecified - ANXIETY DISORDER, UNSPECIFIED Personal history of other venous thrombosis and embolism - PERSONAL HISTORY OF OTHER VENOUS THROMBOSIS AND EMBOLISM Personal history of nicotine dependence - PERSONAL HISTORY OF NICOTINE DEPENDENCE Other usp (current) drug therapy - OTHER PRISON (CURRENT) DRUG 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 Take the oxycodone we prescribed as needed for pain, and flomax daily to help the stones pass. You will likely have pain until the stones pass or settle in the kidney, but most small stones pass within a couple days. Use a strainer your given to filter your urine so you can catch the stone when it pass es. If you have been advised to follow up with Urology, is helpful to bring the stone so they can determine what type you have formed. If you start having unbearable pain even with medicines, severe nausea and vomiting and cannot keepany fluids down, or other worrying symptoms, you may be having a serious medical complication and should come back to the ER as soon as possible. documented in this encounter Medications at Time of Discharge alendronate (FOSAMAX) 70 mg tabletIndications:P ost-Menopausal Osteoporosis Take 70 mg by mouth every 7 days Take in the morning with a full glass of water, on an empty stomach, and do not take anything else by mouth or lie down for the next 30 min. saturday clotrimazole-betame thasone (LOTRISONE) cream Apply 1 application topically daily 09/09/2019 dicyclomine (BENTYL) 10 mg capsuleIndications: Irritable Bowel Syndrome Take 10 mg by mouth 3 (three) times a day 08/30/2019 docusate sodium (COLACE) 100 mg capsuleIndications: constipation Take 100 mg by mouth daily polyethylene glycol (MIRALAX) 17 gram packetIndications:c onstipation Take 17 g by mouth daily with lunch oxyCODONE (ROXICODONE) 5 mg immediate release tabletIndications:P ain Take 1 tablet (5 mg total) by mouth every 8 (eight) hours as needed for pain for up to 2 days 10 tablet 02/06/2020 02/08/20 20 calcium carbonate-vitamin D3 500 mg(1,250mg) -400 unit chewable tabletIndications:V itamin D Deficiency Take 1 tablet by mouth every morning 01/15/20 21 cholecalciferol (VITAMIN D-3) 2000 unit capsule 2,000 Units 04/19/20 20 clindamycin (CLEOCIN) 150 mg capsule Take 450 mg by mouth 3 (three) times a day 04/19/20 20 clonazePAM (KlonoPIN) 1 mg tabletIndications:P anic Disorder Take 1 mg by mouth 2 (two) times a day 09/09/2019 02/10/20 21 cyanocobalamin (Vitamin B-12) 100 mcg tabletIndications:P revention of Vitamin B12 Deficiency Take 1,000 mcg by mouth every morning 01/15/20 21 ferrous fumarate 325 mg (106 mg iron) tabletIndications:I ghislaine Deficiency Anemia Take 106 mg of elemental iron by mouth daily with dinner 01/15/20 21 fluticasone (VERAMYST) 27.5 mcg/actuation nasal sprayIndications:Al lergic Rhinitis Administer 2 sprays into each nostril once daily 04/19/20 20 folic acid (FOLVITE) 1 mg tabletIndications:F olate Deficiency Take 1 mg by mouth daily with dinner 07/02/20 21 gabapentin (NEURONTIN) 100 mg capsule Take 1 capsule (100 mg total) by mouth 3 (three) times a day 90 capsule 09/25/2019 04/19/20 20 levocetirizine (XYZAL) 5 mg tablet Take 5 mg by mouth daily with lunch 02/10/20 21 NICOTROL 10 mg inhaler 08/31/2019 04/19/20 20 ondansetron (ZOFRAN) 4 mg tablet Take 4 mg by mouth every 8 (eight) hours as needed for nausea or vomiting 04/19/20 20 ondansetron ODT (ZOFRAN-ODT) 4 mg disintegrating tablet Dissolve 1 tablet for mild to moderate nausea or vomiting or 2 tablets for severe nausea or vomiting oral twice a day as needed. 20 tablet 02/06/2020 04/19/20 20 orphenadrine ER (NORFLEX) 100 mg 12 hr tabletIndications:M uscle Spasm Take 100 mg by mouth 2 (two) times a day 04/19/20 20 pantoprazole (PROTONIX) 40 mg injection 04/19/20 20 polyethylene glycol (Miralax) 17 gram/dose powderIndications:c onstipation Take 17 g by mouth daily Mix 1 scoop (17g) in 8oz of water and drink daily. 255 g 09/19/2019 04/28/20 20 prochlorperazine (COMPAZINE) 10 mg tablet Take 1 tablet (10 mg total) by mouth every 6 (six) hours as needed for nausea or vomiting 10 tablet 02/06/2020 04/19/20 20 rivaroxaban (XARELTO) 20 mg tabletIndications:V enous Thrombosis Take 20 mg by mouth daily with dinner 04/28/20 20 tamsulosin (FLOMAX) 0.4 mg extended release capsule Take 1 capsule (0.4 mg total) by mouth daily 30 capsule 02/06/2020 04/19/20 20 tamsulosin (FLOMAX) 0.4 mg extended release capsule tamsulosin 0.4 mg capsule TAKE 1 CAPSULE BY MOUTH EVERY DAY 05/10/2015 02/10/20 21 traZODone (DESYREL) 150 mg tablet Take 150 mg by mouth nightly 01/27/20 21 documented as of this encounter Ordered Prescriptions Prescription Sig Dispense Quantity Refills Last Filled Start Date End Date ondansetron ODT (ZOFRAN-ODT) 4 mg disintegrating tablet Dissolve 1 tablet for mild to moderate nausea or vomiting or 2 tablets for severe nausea or vomiting oral twice a day as needed. 20 tablet 02/06/2020 0 prochlorperazine (COMPAZINE) 10 mg tablet Take 1 tablet (10 mg total) by mouth every 6 (six) hours as needed for nausea or vomiting 10 tablet 02/06/2020 0 oxyCODONE (ROXICODONE) 5 mg immediate release tabletIndications:Pa in Take 1 tablet (5 mg total) by mouth every 8 (eight) hours as needed for pain for up to 2 days 10 tablet 02/06/2020 0 tamsulosin (FLOMAX) 0.4 mg extended release capsule Take 1 capsule (0.4 mg total) by mouth daily 30 capsule 02/06/2020 0 oxyCODONE (ROXICODONE) 5 mg immediate release tabletIndications:Pa in Take 1 tablet (5 mg total) by mouth every 8 (eight) hours as needed for pain for up to 2 days 10 tablet 02/06/2020 0 ondansetron ODT (ZOFRAN-ODT) 4 mg disintegrating tablet Dissolve 1 tablet for mild to moderate nausea or vomiting or 2 tablets for severe nausea or vomiting oral twice a day as needed. 20 tablet 1 02/06/2020 0 prochlorperazine (COMPAZINE) 10 mg tablet Take 1 tablet (10 mg total) by mouth every 6 (six) hours as needed for nausea or vomiting 10 tablet 02/06/2020 0 documented in this encounter Discharge Disposition Disposition Code Departure Means Destination Discharge to home or self care documented in this encounter ED Notes * Jose Sun MD - 02/06/2020 6:18 AM CDT HPI Chief Complaint Patient presents with ??? Abdominal Pain HPI Madison Weinberg is a 54 y.o. female w/ PMH of endometriosis of the colon status post multiple abdominal surgeries, colon resections, SBO, hernia repair complicated by chronic mesh infection (she reports) and chronic abdominal wound who presents with chief complaint of acute on chronic abdominal pain. Pain is diffuse, constant, 10/10, associated with vomiting. She says she vomited 20 times yesterday; nonbloody, nonbilious. Says she gets chronic vomiting spells along with her episodes breakthrough pain. This feels similar but worse. To the tramadol prior to coming to the ER which she says did not help. She has also tried taking alternating ibuprofen. Tylenol, which he says did not help. She has chronic diarrhea and constipation which are unchanged. No blood in her bowel movements. Her chronic abdominal surgical issues are now followed by Dr. Partida. Patient History Patient Active Problem List Diagnosis Date Noted ??? Endometriosis 12/26/2013 Class: Chronic ??? 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 Anxiety state 12/26/2013 Class: Chronic ??? Acute cerebrovascular insufficiency 12/26/2013 Class: Chronic Past Medical History: Diagnosis Date ??? Anemia ??? Anxiety disorder Anxiety ??? DVT (deep venous thrombosis) ([facility]) ??? HX OTHER MEDICAL Endometriosis-21 times ??? 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 HX OTHER MEDICAL colon blockage ??? HX OTHER MEDICAL trigeminal neuralgia Past Surgical History: Procedure Laterality Date ??? ABDOMINAL SURGERY surgery x 5 for bowel obstruction and subsequent infection ??? APPENDECTOMY 2006 Appendectomy ??? BREAST BIOPSY 2001 Breast biopsy ??? HYSTERECTOMY 1995 Hysterectomy ??? OTHER SURGICAL HISTORY Endometriosis-21 times: lap/laser ??? OTHER SURGICAL HISTORY colon blockage: partial bowel resection Family History Problem Relation Age of Onset [...] ??? Heart disease Maternal Grandmother Heart disease; Social History Tobacco Use ??? Smoking status: Former Smoker Packs/day: 2.00 Years: 12.00 Pack years: 24.00 Types: E-cigarettes ??? Smokeless tobacco: Never Used Substance Use Topics ??? Alcohol use: Not Currently Comment: rarely ??? Drug use: Yes Frequency: 7.0 times per week Types: Marijuana Comment: medical for pain and anxiety Social History Social History Narrative ??? Not on file MEDS & ALLERGIES: No current facility-administered medications on file prior to encounter. Current Outpatient Medications on File Prior to Encounter Medication Sig Dispense Refill ??? alendronate (FOSAMAX) 70 mg tablet Take 70 mg by mouth every 7 days Take in the morning with a full glass of water, on an empty stomach, and do not take anything else by mouth or lie down for thenext 30 min. ??? calcium carbonate-vitamin D3 500 mg(1,250mg) -400 unit chewable tablet Take 1 tablet by mouth daily ??? cholecalciferol (VITAMIN D-3) 2000 unit capsule 2,000 Units ??? clindamycin (CLEOCIN) 150 mg capsule Take 450 mg by mouth 3 (three) times a day ??? clonazePAM (KlonoPIN) 1 mg tablet ??? clotrimazole-betamethasone (LOTRISONE) cream ??? cyanocobalamin (Vitamin B-12) 100 mcg tablet Take 100 mcg by mouth daily ??? dicyclomine (BENTYL) 10 mg capsule ??? docusate sodium (COLACE) 100 mg capsule Take 100 mg by mouth 2 (two) times a day ??? ferrous fumarate 325 mg (106 mg iron) tablet Take 106 mg of elemental iron by mouth daily with breakfast ??? fluticasone (VERAMYST) 27.5 mcg/actuation nasal spray Administer 2 sprays into each nostril once daily ??? folic acid (FOLVITE) 1 mg tablet Take 1 mg by mouth daily ??? gabapentin (NEURONTIN) 100 mg capsule Take 1 capsule (100 mg total) by mouth 3 (three) times a day 90 capsule 0 ??? levocetirizine (XYZAL) 5 mg tablet Take 5 mg by mouth every evening ??? NICOTROL 10 mg inhaler ??? ondansetron (ZOFRAN) 4 mg tablet Take 4 mg by mouth every 8 (eight) hours as needed for nausea or vomiting ??? orphenadrine ER (NORFLEX) 100 mg 12 hr tablet Take 100 mg by mouth 2 (two) times a day ??? pantoprazole (PROTONIX) 40 mg injection ??? polyethylene glycol (MIRALAX) 17 gram packet Take 17 g by mouth daily ??? polyethylene glycol (Miralax) 17 gram/dose powder Take 17 g by mouth daily Mix 1 scoop (17g) in8oz of water and drink daily. 255 g 0 ??? rivaroxaban (XARELTO) 20 mg tablet 20 mg daily ??? traZODone (DESYREL) 150 mg tablet Take 150 mg by mouth nightly Allergies Allergen Reactions ??? Aspirin Hives Reaction: Hives, ??? Codeine Hives Reaction: Hives, ??? Duloxetine Mental status changes Reaction: CONFUSION, Review of Systems Review of Systems Constitutional: Negative for fever HENT: Negative for sore throat Eyes: Negative for vision changes Respiratory: Negative for shortness of breath Cardiovascular: Negative for chest pain Gastrointestinal: + abdominal pain, + diarrhea Genitourinary: Negative for dysuria, Musculoskeletal: + arthralgias (chronic) Skin: Negative for rash. Neurological: Negative for headaches. Physical Exam ED Triage Vitals [02/05/202042] Temp Pulse Resp BP SpO2 36.4 ??C (97.5 ??F) 89 18 130/67 100 % Temp src Heart Rate Source Patient Position BP Location FiO2 (%) Oral -- -- -- -- Physical Exam Vitals signs and nursing note reviewed. Constitutional: General: Not in acute distress. Appearance: They are well-developed HENT: Head: Normocephalic and atraumatic. Eyes: Conjunctiva/sclera: No conjunctival injection, no scleral icterus Pupils: Pupils are 3 mm, equal, round, and reactive to light. Neck: Musculoskeletal: Neck supple. No neck rigidity. Cardiovascular: Heart sounds: S1 normal and S2 normal. RRR Pulmonary: Effort: Pulmonary effort is normal Breath sounds: Normal breath sounds Abdominal: General: Non-distended Palpations: Abdomen is soft, diffuse nonfocal abd tenderness; infraumbilical enterocutaneous fistula with scant drainage and without significant surrounding erythema, no rebound or guarding Musculoskeletal: Right lower leg: No edema. No erythema. No TTP Left lower leg: No edema. No erythema. No TTP Skin: General: Skin is warm and dry. Findings: No rash. Neurological: Mental Status: They are alert Cranial Nerves: No facial asymmetry. Psychiatric: Mood and Affect: Affect normal. Behavior: Behavior is cooperative. Clinical lab tests: reviewed Tests in the radiology section of CPT??: reviewed MDM MDM DDx: Endometriosis, chronic postop pain, intra-abdominal infection/abscess, functional abdominal pain, hernia, SBO, less likely diverticulitis, pancreatitis, cholecystitis, appendicitis, gastritis. Reviewed previous records: Prior ED visit History obtained from: N/A 54-year-old female with complicated abdominal surgical history presenting with acute on chronic abdominal pain and vomiting. She reports history of and chronically infected mesh and C.diff colitis. She is nontoxic appearing with normal vitals. Belly is tender but soft and without rebound or guarding. Abdominal wound does not appear acutely infected. Plan for routine labs, pain control, and CT abdomen pelvis. Dispo contingent on above and reassessment. Attending Summary of Care 54-year-old female with a long history of complicated abdominal surgeries now here with several weeks of decompensation which include poor appetite, weight loss and, according to her , nutritional deficiency. Last night she felt diffuse pain both in the anterior and posterior part of her thorax and began to vomit. She came to the emergency department because her surgery was last performed at the [facility]. No fevers or chills Physical examination reveals exquisite anterior and posterior abdominal and back pain. My differential would include SBO, colitis, complication from her numerous surgeries such as adhesions, and chronic pain. Plan is to treat her with analgesics and antiemetics. We will obtain CT imaging and reassess her. ED Course as of Feb 09 752 Time: 02/05 0715 Comment: Assumed care from Dr. Sun at 0700 54 yo female with complicated ABD history and chronically infected mesh, and ECF. Presents with acute on chronic ABD pain - diffuse - with N/V. Non-toxic appearing, VS WNL, ABD diffusely tender. ABD CT pending. By: Tina Garcias MD Time: 02/05 0851 Comment: UTI - antibiotics pending CT. By: Tina Garcias MD Time: 02/05 1041 Comment: Still waiting for CT - pending By: Tina Garcias MD Time: 02/05 1334 Comment: Trial of percocet and crackers. CT negative except for new nephrolithiasis. By: Tina Garcias MD 1. Abdominal pain 2. Vomiting Carmine Peralta MD Resident 02/06/20 0631 Jose Sun MD 02/06/20 0644 Jose Sun MD 02/09/20 0752 * Rachelle Pink RN - 02/06/2020 5:55 AM CDT Bed: ED2-26 Expected date: Expected time: Means of arrival: Car Comments: Rachelle Pink RN 02/06/20 0586 * Ofe Sol RN - 02/05/2020 8:44 PM CDT Pt to ED with c/o dizziness, abd pain, n/v, worsening today. States hx of infected mesh in the abd,scheduled for surgery but postponed related to COVID. Pt attempted ODT zofran with no relief. documented in this encounter Miscellaneous Notes * ED Re-evaluation Note - Francisco Francisco MD - 02/06/2020 6:40 AM CDT ED Re-evaluation TRANSITION OF CARE: I, Francisco Francisco MD, am taking signout from Kathryn under supervision of Jose Sun MD. I have reviewed all pertinent vital signs, allergies, and history available in the chart. Vitals: 02/05/202042 BP: 130/67 Pulse: 89 Resp: 18 Temp: 36.4 ??C (97.5 ??F) TempSrc: Oral SpO2: 100% Weight: 53.5 kg (118 lb) Height: 162.6 cm (5' 4 ) Summary: 54 y.o. female w/ PMH of endometriosis of the colon status post multiple abdominal surgeries, colon resections, SBO, hernia repair complicated by chronic mesh infection (she reports) and chronic abdominal wound who presents with chief complaint of acute on chronic abdominal pain. Pain is diffuse, constant, 10/10, associated with vomiting. She says she vomited 20 times yesterday; nonbloody, nonbilious. Says she gets chronic vomiting spells along with her episodes breakthrough pain. Thisfeels similar but worse. Appears well while sleeping but belly diffusely tender. Pending: CT ab/p Dispo: Pending CT, anticipate discharge if no acute issue Francisco Francisco MD Resident 02/06/20 0717 documented in this encounter Plan of Treatment Not on file documented as of this encounter Procedures Procedure Name Priority Date/Time Associated Diagnosis Comments CT ABDOMEN PELVIS W CONTRAST ED 02/06/2020 11:50 AM CDT POCT HCG, URINE Routine 02/06/2020 11:03 AM CDT URINALYSIS AND REFLEX TO MICROSCOPIC AND CULTURE STAT 02/06/2020 7:28 AM CDT URINALYSIS, MICROSCOPIC ONLY STAT 02/06/2020 7:28 AM CDT URINE CULTURE STAT 02/06/2020 7:28 AM CDT DIFFERENTIAL AUTO STAT 02/06/2020 6:1 2 AM CDT CBC WITH AUTO DIFFERENTIAL STAT 02/06/2020 6:12 AM CDT LIPASE STAT 02/06/2020 6:12 AM CDT HEPATIC FUNCTION PANEL STAT 02/06/2020 6:12 AM CDT BASIC METABOLIC PANEL STAT 02/06/2020 6:12 AM CDT documented in this encounter Results * CT Abdomen Pelvis W Contrast (02/06/2020 11:50 AM CDT) Anatomical Region Laterality Modality Body N/A Computed Tomogra phy 02/06/2020 12:2 4 PM CDT Impressions 02/06/2020 12:30 PM CDT 1. ??New 4 mm stone in the proximal right ureter without hydronephrosis. ??There are multiple unchanged nonobstructing left renal stones 2. ??No bowel obstruction identified Dictated by: Parveen Lauren M.D. The radiology attending physician has personally reviewed this study, and had reviewed and/or edited this written report and agrees with it. Electronically signed by: Chuckie Bland M.D. Narrative 02/06/2020 12:30 PM CDT EXAMINATION: ??Computed tomography of the abdomen and pelvis with intravenous contrast HISTORY: Abdominal pain, history of bowel obstructions with multiple surgeries TECHNIQUE: ??Transaxial computed tomographic images of the abdomen and pelvis were obtained with intravenous contrast according to the standard protocol after the uneventful administration of 100 mL Opti-Ray 350 intravenous contrast. COMPARISON: 09/18/2019 FINDINGS: 1 bases are clear. ??Visualized heart is normal in size without pericardial effusion. The liver, gallbladder, spleen are normal. ??The pancreas is normal. Adrenal glands are normal. ??There is no a stone in the proximal right ureter which measures 4 mm, without associated hydronephrosis. Redemonstrated are multiple nonobstructing stones in the left kidney, the largest of which is 1 cm, unchanged. ??The urinary bladder is normal. ??Multiple phleboliths are again seen in the pelvis. There are postoperative changes of prior bowel resection. ??There is no evidence of obstruction or inflammation. ??The abdominal aorta is moderately atherosclerotic an moderately narrowed. No free intraperitoneal gas or fluid detected. ??No pelvic or mesenteric lymphadenopathy identified. ??Bone windows are negative for suspicious osseous lesions. Procedure Note Chuckie Bland MD - 02/06/2020 EXAMINATION: Computed tomography of the abdomen and [...] windows are negative for suspicious osseous lesions. IMPRESSION: 1. New 4 mm stone in the proximal right ureter without hydronephrosis. There are multiple unchanged nonobstructing left renal stones 2. No bowel obstruction identified Dictated by: Parveen Lauren M.D. The radiology attending physician has personally reviewed this study, and had reviewed and/or edited this written report and agrees with it. Electronically signed by: Chuckie Bland M.D. Francisco Francisco MD IMG CT PROCEDURES Fin al Result * POCT hCG, urine (02/06/2020 11:03 AM CDT) HCG, ur, POC Negative Lot Number [id number] QC Backgroud Clear Acceptable QC Control Line Acceptable Urine 02/06/2020 11:0 3 AM CDT Francisco Francisco MD POINT OF CARE TEST OR DERABLES Final Result * Urine culture Urine (02/06/2020 7:28 AM CDT) Report Final Report: Less than 100,000 colonies/mL (clinically insignificant growth based on current clinical standards) [facility] Organism (CLINICALLY INSIGNIFICANT GROWTH [facility] Urine 02/06/2020 7:28 AM CDT 02/06/2020 11:31 AM CDT Narrative [facility] - 02/07/2020 1:43 PM CDT Urine culture reflexed based upon urinalysis results. Testing performed by [facility] Microbiology Laboratory ([phone]) Jose Sun MD LAB MICROBIOLOGY - GENERAL ORDERABLES Final Result [facility] [place] [address] * (ABNORMAL) Urinalysis, microscopic only (02/06/2020 7:28 AM CDT) WBC, ur 21-50(A) 0 - 5 /HPF [facility] RBC, ur >50(A) 0 - 2 /HPF [facility] Epithelial cells, squamous, ur 1-5 0 - 5 /HPF [facility] Bacteria, ur 2+(A) [facility] Mucous, ur Present(A) [facility] Culture Reflex Comment Reflex to urine culture will be performed. [facility] Urine 02/06/2020 7:28 AM CDT 02/06/2020 7:36 AM CDT Jose Sun MD LAB URINE ORDERABLES Final Result Performing Organization Address [facility]/ZIP Co de Phone Number [facility] [place] [address] * (ABNORMAL) Urinalysis reflex to microscopic and culture Urine (02/06/2020 7:28 AM CDT) Color, ur Yellow Yellow [facility] Clarity, ur Cloudy(A) Clear [facility] Specific gravity, ur 1.019 1.010 - 1.025 [facility] pH, urine 9 [facility] Protein, ur ql 3+(A) Negative [facility] Glucose, ur ql Negative Negative [facility] Ketones, ur 1+(A) Negative [facility] Bilirubin, ur Negative Negative [facility] Blood, ur 2+(A) Negative [facility] Urobilinogen, ur <2.0 <2.0 mg/dL [facility] Nitrite, ur Negative Negative [facility] Leukocyte esterase, ur 3+(A) Negative [facility] UA reflex comment Reflex to microscopic UA will be performed. [facility] Urine 02/06/2020 7:28 AM CDT 02/06/2020 7:36 AM CDT Narrative [facility] - 02/06/2020 7:43 AM CDT THE BJ COLLECTION LOCATION IS [facility] ED2-26 Urine pH is affected by diet, medications, systemic acid-base disturbances, and renal tubular function. ??pH may affect urinary stone formation. ??For example, urine pH below 6.0 may help reduce the tendency for calcium phosphate stones and pH greater than 6.0 may reduce the tendency for uric acid stone formation. Source: [employer]. Last revised 08-22-2017 Jose Sun MD LAB MICROBIOLOGY - GENERAL ORDERABLES Final Result Performing Organization Address [facility]/ZIP Co de Phone Number [facility] [place] [address] * (ABNORMAL) Differential, auto (02/06/2020 6:12 AM CDT) Neutrophil abs 7.5(H) 1.7 - 6.5 K/cumm [facility] Imm gran abs 0.0 0.0 - 0.1 K/cumm [facility] Lymphocyte abs 1.8 0.8 - 3.3 K/cumm [facility] Monocyte abs 0.5 0.2 - 0.8 K/cumm [facility] Eosinophil abs 0.0 0.0 - 0.5 K/cumm [facility] Basophil abs 0.0 0.0 - 0.1 K/cumm [facility] Neutrophil pct 76.3 % [facility] Comment: Interpretive Data Percent cell count reference ranges are not reported, since discordance with absolute values may lead to misinterpretation of CBC data. Current Interpretive Data was last revised on 2017. Imm gran pct 0.2 % [facility] Comment: Interpretive Data Percent cell count reference ranges are not reported, since discordance with absolute values may lead to misinterpretation of CBC data. Current Interpretive Data was last revised on 2017. Lymphocyte pct 17.9 % [facility] Comment: Interpretive Data Percent cell count reference ranges are not reported, since discordance with absolute values may lead to misinterpretation of CBC data. Current Interpretive Data was last revised on 2017. Monocyte pct 5.3 % [facility] Comment: Interpretive Data Percent cell count reference ranges are not reported, since discordance with absolute values may lead to misinterpretation of CBC data. Current Interpretive Data was last revised on 2017. Eosinophil pct 0.0 % [facility] Comment: Interpretive Data Percent cell count reference ranges are not reported, since discordance with absolute values may lead to misinterpretation of CBC data. Current Interpretive Data was last revised on 2017. Basophil pct 0.3 % [facility] Comment: Interpretive Data Percent cell count reference ranges are not reported, since discordance with absolute values may lead to misinterpretation of CBC data. Current Interpretive Data was last revised on 2017. Blood specimen (specimen) 02/06/2020 6:12 AM CDT 02/06/2020 6:25 AM CDT Osmany Briceno MD LAB BLOOD ORDERABLES F inal Result Performing Organization Address [facility] Co de Phone Number [facility] [employer] [place] [address] * Hepatic function panel (02/06/2020 6:12 AM CDT) Bilirubin, total 0.5 0.1 - 1.2 mg/dL [facility] Bilirubin, direct <0.2 0.1 - 0.3 mg/dL [facility] Protein, pl 8.1 6.5 - 8.5 g/dL [facility] Albumin 4.7 3.5 - 5.0 g/dL [facility] Alk phos 121 40 - 130 Units/L [facility] ALT 32 7 - 45 Units/L [facility] AST 32 10 - 45 Units/L [facility] Blood specimen (specimen) (Blood, Venous) 02/06/2020 6:12 AM CDT 02/06/2020 6:25 AM CDT Narrative [facility] - 02/06/2020 6:48 AM CDT THE B[facility] COLLECTION LOCATION IS Jose Sun MD LAB BLOOD ORDERABLES Final Result Performing Organization Address [facility] Co de Phone Number [facility] [employer] [place] [address] * Lipase (02/06/2020 6:12 AM CDT) Lipase 19 10 - 99 Units/L [facility] Blood specimen (specimen) (Blood, Venous) 02/06/2020 6:12 AM CDT 02/06/2020 6:25 AM CDT Narrative [facility] - 02/06/2020 6:48 AM CDT THE BJ COLLECTION LOCATION IS Jose Sun MD LAB BLOOD ORDERABLES Final Result [facility] [place] [address] * Basic metabolic panel (02/06/2020 6:12 AM CDT) Sodium 141 135 - 145 mmol/L [facility] Potassium, pl 3.7 3.3 - 4.9 mmol/L [facility] Chloride 102 97 - 110 mmol/L [facility] CO2 26 22 - 32 mmol/L [facility] Anion gap 13 2 - 15 mmol/L [facility] BUN 8 8 - 25 mg/dL [facility] Creatinine 0.72 0.60 - 1.10 mg/dL [facility] Glucose 105 70 - 199 mg/dL [facility] Comment: Interpretive Data Fasting glucose >/= [...] 2017. Calcium 10.2 8.5 - 10.3 mg/dL [facility] Blood specimen (specimen) 02/06/2020 6:12 AM CDT 02/06/2020 6:25 AM CDT Narrative [facility] - 02/06/2020 6:48 AM CDT THE COLLECTION LOCATION IS Jose Sun MD LAB BLOOD ORDERABLES Final Result [facility] [place] [address] * (ABNORMAL) CBC with auto differential (02/06/2020 6:12 AM CDT) [facility] WBC 9.8 3.8 - 9.9 K/cumm [facility] Hgb 13.8 11.9 - 15.5 g/dL [facility] Hct 42.2 35.6 - 45.5 % [facility] Plt 411(H) 150 - 400 K/cumm [facility] MPV 10.0 9.1 - 12.3 fL [facility] RBC 4.83 3.90 - 5.20 M/cumm [facility] MCV 87.4 81.3 - 96.4 fL [facility] MCH 28.6 27.1 - 33.3 pg [facility] MCHC 32.7 32.3 - 35.7 g/dL [facility] RDW CV 13.3 11.1 - 14.9 % [facility] RDW SD 42.4 35.7 - 48.1 fL [facility] NRBC abs 0.00 0.00 - 0.01 K/cumm [facility] Blood specimen (specimen) (Blood, Venous) 02/06/2020 6:12 AM CDT 02/06/2020 6:25 AM CDT Narrative [facility] - 02/06/2020 6:33 AM CDT THE COLLECTION LOCATION IS us Jose Sun MD LAB BLOOD ORDERABLES Final Result [facility] [place] [address] documented in this encounter Visit Diagnoses Diagnosis Abdominal pain- Primary Abdominal pain, unspecified site Vomiting Vomiting alone documented in this encounter Administered Medications Inactive Administered Medications - up to 3 most recent administrations Medication Order MAR Action Action Date Dose Rate Site cefTRIAXone (ROCEPHIN) 1,000 mg/10 mL in sterile water (premix) 1,000 mg 1,000 mg, intravenous, at 600 mL/hr, Administer over 1 Minutes, Once, On 02/06/20 at 1201, For 1 dose, Indications: Urinary Tract/Genitourinary InfectionIndications:Urinary Tract/Genitourinary Infection Given 02/06/2020 1:43 PM CDT 1,000 mg 600 mL/hr ioversoL (OPTIRAY 350) syringe syringe 100 mL 100 mL, intravenous, Once in imaging, contrast, Starting on 02/06/20 at 1150, For 1 dose Given 02/06/2020 11:50 AM CDT 100 mL ketorolac (TORADOL) 15 mg/mL injection 15 mg 15 mg, intravenous, Once, On 02/06/20 at 0631, For 1 dose, For Adult IV push, administer over 15 seconds Given 02/06/2020 8:46 AM CDT 15 mg ketorolac (TORADOL) 15 mg/mL injection 15 mg 15 mg, intravenous, Once, On 02/06/20 at 1503, For 1 dose, For Adult IV push, administer over 15 seconds Given 02/06/2020 3:04 PM CDT 15 mg Lactated Ringer's (LR) infusion 100 mL/hr, intravenous, Continuous, Starting on 02/06/20 at 1014 New Bag 02/06/2020 10:51 AM CDT 100 mL/hr 100 mL/hr morphine injection 4 mg 4 mg, intravenous, Administer over 4 Minutes, Once, On 02/06/20 at 0630, For 1 dose Given 02/06/2020 7:33 AM CDT 4 mg morphine injection 4 mg 4 mg, intravenous, Administer over 4 Minutes, Once, On 02/06/20 at 1013, For 1 dose Given 02/06/2020 10:51 AM CDT 4 mg ondansetron (ZOFRAN) injection 4 mg 4 mg, intravenous, Administer over 2 Minutes, Once, On 02/06/20 at 0957, For 1 dose Given 02/06/2020 10:06 AM CDT 4 mg ondansetron ODT (ZOFRAN-ODT) disintegrating tablet 4 mg 4 mg, oral, Once, On 02/06/20 at 0214, For 1 dose Given 02/06/2020 2:28 AM CDT 4 mg oxyCODONE-acetaminophen (PERCOCET) 5-325 mg per tablet 2 tablet 2 tablet, oral, Once, On 02/06/20 at 1334, For 1 dose, Indications: PainIndications:Pain Given 02/06/2020 1:43 PM CDT 2 tablets prochlorperazine (COMPAZINE) injection 5 mg 5 mg, intravenous, Administer over 2 Minutes, Once, On 02/06/20 at 1156, For 1 dose Given 02/06/2020 12:02 PM CDT 5 mg documented in this encounter Discontinued Medications Medication Sig Discontinue Reason Start Date End Da te oxyCODONE (ROXICODONE) 5 mg immediate release tabletIndications:Pain Take 1 tablet (5 mg total) by mouth every 8 (eight) hours as needed for pain 09/19/2019 02/06/2020 oxyCODONE (ROXICODONE) 5 mg immediate release tabletIndications:Pain Take 1 tablet (5 mg total) by mouth every 8 (eight) hours as needed for pain for up to 2 days Reorder 02/06/2020 02/06/2020 prochlorperazine (COMPAZINE) 10 mg tablet Take 1 tablet (10 mg total) by mouth every 6 (six) hours as needed for nausea or vomiting Reorder 02/06/2020 02/06/2020 ondansetron ODT (ZOFRAN-ODT) 4 mg disintegrating tablet Dissolve 1 tablet for mild to moderate nausea or vomiting or 2 tablets for severe nausea or vomiting oral twice a day as needed. Reorder 02/06/2020 02/06/2020 documented as of this encounter Active and Recently Administered Medications Times are shown in CDT. Scheduled Medication Order 02/04/2020 02/05/2020 02/06/2020 acetaminophen (TYLENOL) tablet 1,000 mg 1,000 mg, oral, Once, On 02/06/20 at 0631, For 1 dose 1454 (Not Given - Pr ovider: Madonna Rodgers RN - Reason: Patient/family refused) cefTRIAXone (ROCEPHIN) 1,000 mg/10 mL in sterile water (premix) 1,000 mg (COMPLETED) 1,000 mg, intravenous, at 600 mL/hr, Administer over 1 Minutes, Once, On 02/06/20 at 1201, For 1 dose, Indications: Urinary Tract/Genitourinary Infection 1343 (Given - Provid er: Madonna Rodgers RN) ketorolac (TORADOL) 15 mg/mL injection 15 mg (COMPLETED) 15 mg, intravenous, Once, On 02/06/20 at 0631, For 1 dose, For Adult IV push, administer over 15 seconds 0846 (Given - Provid er: Vinny Marie RN) ketorolac (TORADOL) 15 mg/mL injection 15 mg (COMPLETED) 15 mg, intravenous, Once, On 02/06/20 at 1503, For 1 dose, For Adult IV push, administer over 15 seconds 1504 (Given - Provid er: Madonna Rodgers RN) morphine injection 4 mg (COMPLETED) 4 mg, intravenous, Administer over 4 Minutes, Once, On 02/06/20 at 0630, For 1 dose 0733 (Given - Provid er: Vinny Marie RN - Comment: [id number]) morphine injection 4 mg (COMPLETED) 4 mg, intravenous, Administer over 4 Minutes, Once, On 02/06/20 at 1013, For 1 dose 1051 (Given - Provid er: Madonna Rodgers RN) ondansetron (ZOFRAN) injection 4 mg (COMPLETED) 4 mg, intravenous, Administer over 2 Minutes, Once, On 02/06/20 at 0957, For 1 dose 1006 (Given - Provid er: Madonna Rodgers RN) ondansetron ODT (ZOFRAN-ODT) disintegrating tablet 4 mg (COMPLETED) 4 mg, oral, Once, On 02/06/20 at 0214, For 1 dose 0228 (Given - Provid er: Marylu Jung RN) oxyCODONE-acetaminophen (PERCOCET) 5-325 mg per tablet 2 tablet (COMPLETED) 2 tablet, oral, Once, On 02/06/20 at 1334, For 1 dose, Indications: Pain 1343 (Given - Provid er: Madonna Rodgers RN) prochlorperazine (COMPAZINE) injection 5 mg (COMPLETED) 5 mg, intravenous, Administer over 2 Minutes, Once, On 02/06/20 at 1156, For 1 dose 1202 (Given - Provid er: Madonna Rodgers RN) Continuous Medication Order 02/04/2020 02/05/2020 02/06/2020 Lactated Ringer's (LR) infusion 100 mL/hr, intravenous, Continuous, Starting on 02/06/20 at 1014 1051 (New Bag - Prov ider: Madonna Rodgers, KAT)1500 (Stopped - Provider: Madonna Rodgers, KAT) PRN Medication Order 02/04/2020 02/05/2020 02/06/2020 ioversoL (OPTIRAY 350) syringe syringe 100 mL (COMPLETED) 100 mL, intravenous, Once in imaging, contrast, Starting on 02/06/20 at 1150, For 1 dose 1150 (Given - Provid er: Deni Law, RT) documented in this encounter Orders Medications Ordered That Guy ht Not Have Been Administered Count Last Ordered Date First Ordered Date acetaminophen (TYLENOL) tablet 1,000 mg 1 0 02/06/2020 cefTRIAXone (ROCEPHIN) 250 m g/mL intramuscular injection 250 mg 1 02/06/2020 Lactated Ringer's (LR) bolus 1,000 mL 1 Nursing Count Last Ordered Date First Orde red Date MISCELLANEOUS NURSING CARE ORDER (SPECIFY) 1 02/06/2020 IV Count Last Ordered Date First Orde red Date SALINE LOCK IV 1 02/06/2020 documented in this encounter Additional Health Concerns Infection Onset Date Last Indicated Resolved Time 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, nares 04/22/20; 01/18/21; urine 01/14/21 09/19/2019 02/09/2021 10/10/2021 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
--- OUTSIDE RECORDS SUMMARY | 2024-08-08 16:05 | XMS_ITS | Encounter Summary ---
Author Organization [facility] Address [address] [place] [address] Phone Care Team Providers Care Site Lead Name Role Phone Lazarus Albert MD Primary Care Provider Reason for Visit * Reason Onset Date Comments PATIENT CALLING IN 10/27/2019 Encounter Details Date Type Department Care Team (Late st Contact Info) Description 10/27/2019 Telephone [facility] [address] [facility] 8th [place] [address] [place] [address] Jinny Castro RMA PATIENT CALLING IN Social History Tobacco Use Types Packs/Day Years Used Date Smoking Tobacco: Former Cigarettes 2 12 E-cigarettes Smokeless Tobacco: Never Alcohol Use Standard Drinks/Week Comments Not Currently 0 (1 standard drink = 0.6 oz pur e alcohol) rarely Comments Unknown Sex and Gender Information Value Date Recorded Sex Assigned at Not on file 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 Her PCP told her to call us. Dr. Partida is out of town. I contacted Dr. Whitfield. She stated that the patient should contact her PCP regarding possible C-Diff due to the extended period of time she was on an antibiotic. Patient understands C-Diff very well and will call her PCP now. 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
--- OUTSIDE RECORDS SUMMARY | 2024-08-08 16:05 | XMS_ITS | Encounter Summary ---
Author Organization [facility] Healthcare Address [address] [place] [address] Care Team Providers Care Warehouser Name Role Phone Mook Koch MD Primary Care Provi franky Encounter Details Date Type Department Care Team (Latest Contact Info) Description 04/21/2010 9:00 PM CDT - 04/23/2010 8:07 PM CDT Hospital [place] [address] [facility] [address] [place] [address] Endometriosis of pelvic peritoneum; Symptom associated with female genital organs; Tobacco use disorder; Unspecified visual loss Social History Tobacco Use Types Packs/Day Years Used Date Smoking Tobacco: Never Assessed Alcohol Use Standard Drinks/Week Comments No 0 (1 standard drink = 0.6 oz pur e alcohol) Comments Unknown Sex and Gender Information Value Date Recorded Sex Assigned at Not on file 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
--- OUTSIDE RECORDS SUMMARY | 2024-08-08 16:05 | XMS_ITS | Encounter Summary ---
Author Organization [facility] Healthcare Address [address] [place] [address] Care Team Providers Care Lay Out Worker Name Role Phone Mook Koch MD Primary Care Provi franky Encounter Details Date Type Department Care Team (Late st Contact Info) Description 04/26/2008 3:19 PM CDT - 04/26/2008 11:59 PM CDT Hospital Encounter [facility] Mook Koch MD [address] [place] [id number] Social History Tobacco Use Types Packs/Day Years Used Date Smoking Tobacco: Never Assessed Comments Unknown Sex and Gender Information Value Date Recorded Sex Assigned at Not on file 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
--- OUTSIDE RECORDS SUMMARY | 2024-08-08 16:05 | XMS_ITS | Encounter Summary ---
Author Organization [facility] Healthcare Address [address] [place] [address] Care Team Providers Care Computer Systems Security Analyst Name Role Phone Mook Koch MD Primary Care Provi franky Encounter Details Date Type Department Care Team (Late st Contact Info) Description 02/16/2009 6:20 AM CDT - 02/16/2009 11:59 PM CDT Hospital Encounter [facility] Carito Bishop MD [address] [place] [id number] Diarrhea; Abdominal pain; Blood in stool Social History Tobacco Use Types Packs/Day Years Used Date Smoking Tobacco: Never Assessed Comments Unknown Sex and Gender Information Value Date Recorded Sex Assigned at Not on file 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
--- OUTSIDE RECORDS SUMMARY | 2024-08-08 16:05 | XMS_ITS | Encounter Summary ---
Author Organization [facility] Healthcare Address [address] [place] [address] Care Team Providers Care Geospatial Information Scientist Name Role Phone Mook Koch MD Primary Care Provi franky Encounter Details Date Type Department Care Team (Late st Contact Info) Description 02/08/2009 5:20 PM CDT - 02/11/2009 4:30 PM CDT Hospital Encounter [facility] Mook Kinney MD [address] [place] [id number] Abdominal pain; Other chronic pain; Nausea with vomiting; Diarrhea; Endometriosis; Generalized atherosclerosis; Anxiety state; Other depressive disorder; Tobacco use disorder; Esophageal reflux; Acquired absence of both cervix and uterus; Acquired absence of intestine Social History Tobacco Use Types Packs/Day Years Used Date Smoking Tobacco: Never Assessed Comments Unknown Sex and Gender Information Value Date Recorded Sex Assigned at Not on file 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 Gender Identity Not on file Sexual Orientation Not on file documented as of this encounter Plan of Treatment Not on file documented as of this encounter Visit Diagnoses Diagnosis Abdominal pain Abdominal pain, unspecified site Other chronic pain Nausea with vomiting Diarrhea Endometriosis Endometriosis, site unspecified Generalized atherosclerosis Generalized and unspecified atherosclerosis Anxiety state Anxiety state, unspecified Other depressive disorder Tobacco use disorder Esophageal reflux Acquired absence of both cervix and uterus Acquired absence of intestine Acquired absence of intestine (large) (small) documented in this encounter Care Teams Geospatial Information Scientist Relationship Specialty Start Date End Date Mook Koch MD PCP - General 12/23/07 09/24/19 documented as of this encounter
--- OUTSIDE RECORDS SUMMARY | 2024-08-08 16:05 | XMS_ITS | Encounter Summary ---
Author Organization [facility] Healthcare Address [address] [place] [address] Care Team Providers Care Piano Player Name Role Phone Lazarus Albert MD Primary Care Provider [phone] Encounter Details Date Type Department Care Team (Late st Contact Info) Description 04/22/2020 7:30 AM CDT - 04/22/2020 2:00 PM CDT Surgery [facility] Operating Room [address] [place] [address] Ari Yeh MD [address] [facility] [phone] [place] [address] ABDOMINAL MESH EXCISION 3.5X8 ABDOMINAL SKIN EXCISION 6X5.5 Surgery Details Date/Time Status Location OR Service Patient Class Case Class Case Type Trauma Case? 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 Gender Identity Not on file Sexual Orientation Not on file documented as of this encounter Last Filed Vital Signs Vital Sign Reading Time Taken Comments Blood Pressure 127/71 04/22/2020 2:00 PM CDT Pulse 75 04/22/2020 2:00 PM CDT Temperature 36 ??C (96.8 ??F) 04/22/2020 2:00 PM CDT Respiratory Rate 16 04/22/2020 2:00 PM CDT Oxygen Saturation 100% 04/22/2020 2:00 PM CDT Inhaled Oxygen Concentration - - Weight 53.5 kg (118 lb) 04/22/2020 6:01 AM CDT Height 165.1 cm (5' 5 ) 04/22/2020 6:01 AM CDT Body Mass Index 19.64 04/22/2020 6:01 AM CDT documented in this encounter Discharge Summaries * Libby Don, DIRECTOR STERILE PROCESSING - 04/28/2020 11:49 AM CDT Images from the original note were not included. [facility] Acute Care Surgery Inpatient Discharge Summary [...] Home Health and Infusion Primary disciplines requested: [facility] Services: Wound/ Ostomy Care Infusion Services: Central Venous Access Labs to be drawn: Vancomycin 750 mg Q12 hr 04/24 through 05/08, CBC and BMP should be monitored weekly while on vancomycin, twice weekly vanc trough, CBC,BMP weekly and FAX to [facility] [phone] while on Bactrim DS Line: PICC Physician [...] with question or concerns regarding your hospitalization [phone]. Call provider if: you feel dizzy, very [...] agrees with this plan. Home Health Provider: [facility] Home Infusion Services Provided: IV infusion services You will be contacted by home health to arrange a home visit. If you are not contacted, call the phone number listed above to set up a home visit. [facility] Acute Care Surgery Discharge Instructions Care [...] incisions (Neosporin or Vaseline) ??? Only take [id number] or prescription medicines for pain, discomfort, or [...] or get worse. For Follow Up Call [place] at [phone] Follow up Contact Information for Follow-ups [facility] Home Care Services Specialty: Home Health and Hospice [address] [place] [id number] Next Steps: Follow up Questions: Service Line: Home Health and Infusion Primary disciplines requested: [facility] Services: Wound/ Ostomy Care Infusion Services: Central Venous Access Labs to be drawn: Vancomycin 750 mg Q12 hr 04/24 through 05/08, CBC and BMP should be monitored weekly while on vancomycin, twice weekly vanc trough, CBC,BMP weekly and FAX to [facility] [phone] while on Bactrim DS Line: PICC Physician [...] with antibacterial soap and use alcohol-based hand folder machine operator before touching your catheter or changing wound [...] Emergency Room. Contact Infectious Diseases Clinic: Toll-free: [phone] Hospital ID Doctor: Dr. Cristi Feliz [facility] [address], [address] [place] [address] Patient parking available north of [facility] * Discharge Instr - Other Orders* Xiomy Richards RN - 04/28/2020 12:02 PM CDT Home Health Provider: [facility] Home Infusion Services Provided: IV infusion services [...] in this encounter Progress Notes * Xiomy Richards RN - 04/28/2020 3:31 PM CDT 04/28/20 1154 Discharge Summary Chart reviewed For Medical Necessity Does patient have a planned readmission to hospital planned? No Discharge Disposition Home with IV Services (RN visits) Equipment/Provider Needs Home Provider Services Needs Identified Home Care Agency Information Home Care Agency Type #1: Home Infusion Home Care Agency Name [facility] Home Infusion Home Care Agency Home Care Agency Contact Spoken to [facility] Care Agency Used? Not Needed Discharge Additional Assistance Does the patient need discharge transport arranged? No Post Discharge Care Provider Post Discharge Care Plan Next level of care provider has access to complete EMR Notified that patient is stable and ready for discharge from hospital today. Home needs identified patient is followed by [facility] Home Infusion for IV antibiotic infusion. Patient has family for home support and transportation. Patient has chosen to have discharge meds filled by mobile pharmacy. Followup appointments have been scheduled. Nurse to instruct on d/c orders. No additional d/c needs identified. Patient agrees with this plan. Xiomy Richards RN [phone] * Xiomy Richards RN - 04/28/2020 11:56 AM CDT 04/28/20 1154 Discharge Summary Chart reviewed For Medical Necessity Does patient have a planned readmission to hospital planned? No Discharge Disposition Home with IV Services (RN visits) Equipment/Provider Needs Home Provider Services Needs Identified Home Care Agency [facility] Care Agency Type #1: Home Infusion Home Care Agency Name [facility] Home Infusion Home Care Agency Home Care Agency Contact Spoken to [facility] Used? Not Needed Discharge Additional Assistance Does the patient need discharge transport arranged? No Post Discharge Care Provider Post Discharge Care Plan Next level of care provider has access to complete EMR Notified that patient is stable and ready for discharge from hospital today. Patient to receive IV infusion through [facility] Home Infusion Services. Pt is aware meds to be delivered to her room prior to discharge. Patient has family for home support and transportation. Patient has discussed with RN regarding how discharge meds are filled. Follow up appointments have been scheduled. Nurse to instruct on d/c orders. No additional d/c needs identified. Patient agrees with this plan. Xiomy Richards RN [phone] * Libby Don, DIRECTOR STERILE PROCESSING - 04/27/2020 2:30 PM CDT Images from the original note were not included. [facility] Acute Care Emergency Surgery (ACES) Daily [...] (LOVENOX) syringe 40 mg, 40 mg, subcutaneous, Daily-2099, Libby Don NP, 40 mg at 04/26/202139 ??? ondansetron ODT (ZOFRAN-ODT) disintegrating tablet 4 [...] oral, Daily, Libby Don NP ??? rizatriptan CLINICAL RN (MAXALT-CLINICAL RN) disintegrating tablet 10 mg, 10 mg, oral, [...] 5-20 mL, 5-20 mL, intra-catheter, PRN, Vinny Mcnair NP ??? traZODone (DESYREL) tablet 150 mg, 150 mg, oral, Nightly, Elizabeth Anderson MD, 150 mg at 04/26/200 ??? vancomycin 750 mg/150 mL in dextrose 5% (premix) 750 mg, 750 mg, intravenous, Q12H, Libby Don NP, Last Rate: 150 mL/hr at 04/27/20 0320, 750 mg at 04/27/20 0320 Diet: Dietary Orders (From admission, onward) Start Ordered 04/25/20 1630 Adult Diet Regular Diet effective now Question: ([facility]) Diet type Answer: Regular 04/25/20 1634 Is&Os: [...] day Labs/Imaging: Recent Labs Lab Units 04/26/20 2242 04/26/20 1251 04/26/20 0008 WBC K/cumm 7.7 7.2 7.3 HEMOGLOBIN g/dL 9.4* 9.2* 9.1* HEMATOCRIT % 29.0* 28.8* 27.8* PLATELETS K/cumm 280 289 266 Recent Labs Lab Units 04/26/20 2242 04/26/20 0008 04/25/20 0615 SODIUM mmol/L 139 138 140 POTASSIUM PLASMA mmol/L 3.3 4.0 3.7 CHLORIDE mmol/L 107 104 102 CO2 mmol/L 25 27 27 BUN SERUM mg/dL 6* 7* 4* CREATININE mg/dL 0.72 0.88 0.69 GLUCOSE mg/dL 106 106 105 CALCIUM mg/dL 8.9 8.6 9.8 Recent Labs Lab Units 04/26/20 2242 PROTIME (PT) sec 13.4* INR 1.2 No [...] improved in setting of chronic pain * Sandra Hutchins MD - 04/26/2020 10:15 AM CDT Images from the original note were not included. [facility] Acute Care Emergency Surgery (ACES) Daily [...] ELIU, Sarah Tinajero MD, 1,000 mg at 04/26/20 [...] MD,17 g at 04/25/20 1226 ??? rizatriptan CLINICAL RN (MAXALT-CLINICAL RN) disintegrating tablet 10 mg, 10 mg, oral, Once PRN, Elizabeth Anderson MD ??? sodium chloride 0.9% flush 0.5-20 mL, 0.5-20 mL, intra-catheter, Q8H ELIU, Elizabeth Anderson MD, 10 mL at 04/26/20 0648 ??? sodium chloride 0.9% flush 0.5-20 mL, 0.5-20 mL, intra-catheter, PRN, Elizabeth Anderson MD ??? sodium chloride 0.9% flush 5-10 mL, 5-10 mL, intra-catheter, Q12H [facility], Vinny Mcnair NP, 10 mL at 04/26/20 0801 ??? sodium chloride 0.9% flush 5-20 mL, 5-20 mL, intra-catheter, PRN, Vinny Mcnair NP ??? traZODone (DESYREL) tablet 150 mg, 150 mg, oral, Nightly, Elizabeth Anderson MD, 150 mg at 04/25/202050 ??? vancomycin 1,000 mg/200 mL in dextrose 5% (premix) 1,000 mg, 1,000 mg, intravenous, Q12H, Catherine Sharma NP Diet: Dietary Orders (From admission, onward) Start Ordered 04/25/20 1630 Adult Diet Regular Diet effective now Question: ([facility]) Diet type Answer: Regular 04/25/20 1634 Is&Os: [...] Labs/Imaging: Recent Labs Lab Units 04/26/20 0008 04/25/20 0615 04/23/20 1839 WBC K/cumm 7.3 8.7 9.6 HEMOGLOBIN g/dL 9.1* 12.0 10.4* HEMATOCRIT % 27.8* 37.0 32.8* PLATELETS K/cumm 266 320 300 Recent Labs Lab Units 04/26/20 0008 04/25/20 0615 04/23/20 1839 SODIUM mmol/L 138 140 138 POTASSIUM [...] (name, phone, availablity) lives with Peña Weinberg [phone] Home Care Services Yes Home care service [...] Insurance - Jcarlos Albert MD verified Pharmacy- [facility] in [place], [place] Admitted for removal of mesh. S/p surgical intervention Case management services will continue to follow for any d/c needs. Please call me at [phone] further inquiries. Through the course of our [...] from the original note were not included. [facility] Acute Care Emergency Surgery (ACES) Daily [...] tablet 1,000 mg, 1,000 mg, oral, Q6H [facility], Sarah Tinajero MD, 1,000 mg at 04/25/20 0536 ??? ceFAZolin (ANCEF) 1 gram/10 mL in sterile water (premix) 1,000 mg, 1,000 mg, intravenous, Q8H ELIU, Vinny Mcnair NP, Stopped at 04/25/20 0754 [...] Q4H PRN, Sarah Tinajero MD,0.2 mg at 04/24/20 2019 ??? ondansetron ODT (ZOFRAN-ODT) disintegrating tablet 4 mg, 4 mg, oral, QID PRN, Vinny Mcnair NP, 4 mg at 04/24/202011 ??? oxyCODONE (ROXICODONE) tablet 5 mg, 5 mg, oral, Q3H PRN, Sarah Tinajero MD, 5 mg at 04/25/20918 ??? polyethylene glycol (MIRALAX) packet 17 g, 17 g, oral, Daily with lunch, Elizabeth Anderson MD,17 g at 04/24/20 1116 ??? rizatriptan CLINICAL RN (MAXALT-CLINICAL RN) disintegrating tablet 10 mg, 10 mg, oral, [...] Diet Full Liquid Diet effective now Question: ([facility]) Diet type Answer: Full Liquid 04/24/20 1119 [...] 1 day Labs/Imaging: Recent Labs Lab Units 04/25/20 0615 04/23/20 1839 04/23/20 0424 WBC K/cumm 8.7 9.6 10.1* HEMOGLOBIN g/dL 12.0 10.4* 11.5* HEMATOCRIT % 37.0 32.8* 36.2 PLATELETS K/cumm 320 300 286 Recent Labs Lab Units 04/25/20 0615 04/23/20 1839 04/23/20 0424 SODIUM mmol/L 140 138 136 POTASSIUM [...] Tinajero MD - 04/24/2020 2:12 PM CDT [facility] Acute Care Emergency Surgery (ACES) Daily [...] tablet 1,000 mg, 1,000 mg, oral, Q6H Sarah NOWAK MD, 1,000 mg at 04/24/20 1116 ??? ceFAZolin (ANCEF) 1 gram/10 mL in sterile water (premix) 1,000 mg, 1,000 mg, intravenous, Q8H ELIUVinny NP, Last Rate: 200 mL/hr at 04/24/20 1346, 1,000 mg at 04/24/20 1346 ??? clonazePAM (KlonoPIN) tablet 0.5 mg, 0.5 mg, oral, BID, Sarah Tinajero MD, 0.5 mg at 04/24/20 0833 ??? cyclobenzaprine (FLEXERIL) tablet 10 mg, 10 mg, oral, BID, Elizabeth Anderson MD, 10 mg at 04/24/20 0833 ??? dicyclomine (BENTYL) capsule 10 mg, 10 [...] MD,17 g at 04/24/20 1116 ??? rizatriptan CLINICAL RN (MAXALT-CLINICAL RN) disintegrating tablet 10 mg, 10 mg, oral, Once PRN, Elizabeth Anderson MD ??? sodium chloride 0.9% flush 0.5-20 mL, 0.5-20 mL, intra-catheter, Q8H ELIU, Elizabeth Adnerson MD, 10 mL at 04/24/20 1346 ??? sodium chloride 0.9% flush 0.5-20 mL, 0.5-20 mL, intra-catheter, PRN, Elizabeth Anderson MD ??? traZODone (DESYREL) tablet 150 mg, 150 mg, oral, Nightly, Elizabeth Anderson MD, 150 mg at 04/23/202103 ??? vancomycin 750 mg/150 mL in dextrose 5% (premix) 750 mg, 750 mg, intravenous, Q12H, Sarah Zhang MD, Last Rate: 150 mL/hr at 04/24/20 1346, 750 mg at 04/24/20 1346 Diet: Dietary Orders (From admission, onward) Start Ordered 04/24/20 1120 Adult Diet Full Liquid Diet effective now Question: ([facility]) Diet type Answer: Full Liquid 04/24/20 1119 [...] 1 day Labs/Imaging: Recent Labs Lab Units 09/12/183804/23/204 04/19/20 1709 WBC K/cumm 9.6 10.1* 7.9 HEMOGLOBIN g/dL 10.4* 11.5* 12.8 HEMATOCRIT % 32.8* 36.2 40.4 PLATELETS K/cumm 300 286 375 Recent Labs Lab Units 04/23/20183804/23/204 04/19/20 1709 SODIUM mmol/L 138 136 141 POTASSIUM PLASMA mmol/L 3.7 5.1* 5.1* CHLORIDE mmol/L 105 102 98 CO2 mmol/L 24 24 34* BUN SERUM mg/dL 11 11 7* CREATININE mg/dL 0.73 0.73 0.87 GLUCOSE mg/dL 105 100 96 CALCIUM mg/dL 8.8 9.3 10.1 Recent Labs Lab Units 04/23/201838 PROTIME (PT) sec 12.1 INR 1.1 No [...] Tinajero MD - 04/23/2020 12:19 PM CDT [facility] Acute Care Emergency Surgery (ACES) Daily [...] tablet 1,000 mg, 1,000 mg, oral, Q6H [facility], Sarah Tinajero MD, 1,000 mg at 04/23/20 1220 ??? ceFAZolin (ANCEF) 1 gram/10 mL in sterile water (premix) 1,000 mg, 1,000 mg, intravenous, Q8H [facility], Vinny Mcnair NP, Last Rate: 200 mL/hr [...] 5 mg, 5 mg, oral, Q3H PRN, Sraah Tinajero MD, 5 mg at 04/23/20 1220 ??? polyethylene glycol (MIRALAX) packet 17 g, 17 g, oral, Daily with lunch, Elizabeth Anderson MD,17 g at 04/23/20 1220 ??? rizatriptan CLINICAL RN (MAXALT-CLINICAL RN) disintegrating tablet 10 mg, 10 mg, oral, [...] Diet Clear Liquid Diet effective now Question: ([facility]) Diet type Answer: Clear Liquid 04/22/20 1623 [...] Post Op Check Note Madison Weinberg 1965 [id number] Pt returns from the OR 04/22/2020 s/p ABDOMINAL MESH EXCISION 3.5X8 ABDOMINAL SKIN EXCISION 6X5.5 Dione Yeh MD for Pre-op Diagnosis * Abdominal pain [R10.9] Pain:controlled Nausea: No Urine output adequate: No Diet: Dietary Orders (From admission, onward) Start Ordered 04/22/20 1624 Adult Diet Clear Liquid Diet effective now Question: ([facility]) Diet type Answer: Clear Liquid 04/22/20 1623 [...] and Planning Preoperative Evaluation Record Evaluation type/location: [facility] Planned procedure site: [facility] ([facility] 2[facility]3/5/[facility]) Date: 04/19/20 Anesthesia Evaluation Madison Weinberg is [...] 11/2018. Pertinent negatives: hypertension ; CAD ; [place] ; CABG ; valvular heart disease; valve [...] days. Pre- procedure COVID19 testing performed at [facility]. Result pending. The patient is on oral [...] was 04/16/2020. Please call the CPAP attending ([phone]) to revisit risk assessment, with any q uestions, or to discuss alternative management plans.?? Preoperative evaluation performed by Violet Ptaricia NP on 04/19/20 at 5:03 PM. . Follow up note Labs reviewed and are significant for: K+ 5.1. Meds reviewed. Called pt and discussed limiting potassium rich foods in her diet prior to surgery. Awaiting additional lab results: COVID. Follow-up completed by: Harper Russ NP on 04/20/20 at 10:23 AM [...] By, (c) = Cosigned By Initials Name YOANDY Simpson RN Vascular Access Documentation (last 4 [...] Right -CE Location: Basilic -CE Technique: Modified meliza Singh #: [id number] -CE Expiration Date: 04/11/21 -CE Trimmed Length [...] Line Necessity Reason Needed upon discharge for ad terminal makeup operator use;Receiving high risk meds that could damage tissue if infiltrated (vesicants such as compazine or antibiotics, TPN, high dextrose concentration, chemotherapy, concentrated meds or fluid restricted) -CE User Brown (r) = Recorded By, (t) = Taken By, (c) = Cosigned By Initials Name KAT Coronado RN KP Karen F. Pohlman, RN Plan: Follow up: Adry Simpson RN [...] (c) = Cosigned By Initials Name LILIBETH Henriquez RN Vascular Access Documentation (last 4 hours) [facility] Additional Procedures Row Name 04/23/20 1750 04/23/20 1721 Procedures Line Type Peripheral -KP Peripheral -LP Time in 1714 -KP 1709 -LP Time out 1754KP -- Time Calculation (min) 40 min -KP [...] By, (c) = Cosigned By Initials Name LP Korina Vasquez RN KP Jelena Garibay RN Plan: Follow up: Jelena Garibay RN documented in this encounter Consult Notes * Dilma Latham MD - 04/25/2020 10:31 AM CDTAssociated Order(s): CONSULT TO GENERAL INFECTIOUS DISEASE Infectious Disease Initial Consult Note Infectious Disease Team: General 2 Contact Information: Please see [facility] Treatment Team listing for up-to-date [...] tablet 1,000 mg 1,000 mg oral Q6H [facility] Sarah Tinajero MD 1,000 mg at04/25/20 0536 ??? ceFAZolin (ANCEF) 1 gram/10 mL in sterile water (premix) 1,000 mg 1,000 mg intravenous Q8H [facility] Vinny Mcnair NP Stopped at 04/25/20 0754 [...] infusion (premix) 1-33 Units/kg/hr intravenous Titrated Vinny Mcnair NP Stopped at 04/24/20 1211 ??? ondansetron ODT (ZOFRAN-ODT) disintegrating tablet 4 mg 4 mg oral QID PRN Vinny Mcnair NP4 mg at 04/24/202011 ??? oxyCODONE (ROXICODONE) tablet 5 mg 5 mg oral Q3H PRN Sarah Tinajero MD 5 mg at 04/25/20918 ??? polyethylene glycol (MIRALAX) packet 17 g 17 g oral Daily with lunch Elizabeth M. Monica, MD 17 gat 04/24/20 1116 ??? rizatriptan CLINICAL RN (MAXALT-CLINICAL RN) disintegrating tablet 10 mg 10 mg oral Once PRN Elizabeth Anderson MD ??? sodium chloride 0.9% flush 0.5-20 mL 0.5-20 mL intra-catheter Q8H ELIU Elizabeth Anderson MD 10 mL at 04/25/20 0537 ??? sodium chloride 0.9% flush 0.5-20 mL 0.5-20 mL intra-catheter PRN Elizabeth Anderson MD ??? traZODone (DESYREL) tablet 150 mg 150 mg oral Nightly Elizabeth Anderson MD 150 mg at 04/24/202011 ??? vancomycin 750 [...] (PBP2a) testing. CBC: Recent Labs Lab Units 04/25/2061404/23/20 0424 WBC K/cumm 8.7 < > 10.1* HEMOGLOBIN g/dL 12.0 < > 11.5* HEMATOCRIT % 37.0 < > 36.2 PLATELETS K/cumm 320 < > 286 NEUTROS PCT % -- -- 82.1 LYMPHS PCT % -- -- 12.9 MONOS PCT % -- -- 4.7 EOS PCT % -- -- 0.0 < > = values in this interval not displayed. CMP: Recent Labs Lab Units 04/25/2061404/23/20 0424 SODIUM mmol/L 140 < > 136 POTASSIUM [...] Cr. Trend: Recent Labs Lab Units 04/25/20 0615 04/23/20 1839 04/23/20 0424 CREATININE mg/dL 0.69 0.73 0.73 Last HIV Labs (if any): HIV Ab Screen: No results found for: [id number] HIV Viral Load: No results found for: [id number] CD4 Count: No results found for: CD4ABS [...] to follow. Please call Team 2 fellow ([phone]) with questions or changes in the patient's status. After hours the ID fellow call person can be reached at [phone]. Cosigned by Danyel Colin MD at 04/25/2020 [...] or condition will improve 04/28/2020 1041 by Sly Santiago [...] will continue to monitor * Plan of Jorge A - Jennifer Rasmussen RN - 04/27/2020 8:32 [...] monitor labs, will continue to monitor * Jessica of Jorge A - Jennifer Rasmussen RN - 04/26/2020 6:29 [...] Home Health referral received. Patient accepted to [facility] Home Care. Home Health Services explained and information verified with patient. Patient aware of discharging on and delivery will be to patient room. Patient was instructed to call if they have not been contacted within 24 hours of discharge. ELSA Moraes, curing room supervisor Coordinator [facility] * Plan of Care - Cheryl Pabon RN - 04/26/2020 1:37 PM CDT Referral received. I will need to assess patient and/or family for home infusion appropriateness, verify benefits for home infusion, and educate patient/family on home infusion process and obtain Home Health Nursing. Referrals are processed between 8am - 4:00pm Saturday - Saturday. For after hour emergencies please call [phone]. Any referrals received after 4pm will be processed the next day. F or discharge planning purposes please keep in mind that referrals take 24 or more hours to process. Thank you ELSA Moreas, fish filleterTest Puller [place] [facility] infusion [phone] * Plan of Care - Tessy Lowe [...] Team: General 2 Infectious Disease Attending: Dr. Colin Medication Recommendations: Drug(s): Vancomycin 750 mg IV every 12 hours Duration 2 weeks Then Bactrim DS (800/160) BID Firm Stop (Yes/No): YES Stop IV Vancomycin after 2 weeks and then Start TMP/SMX DS BID indefinitely- will decide on length based on exam in clinic (favor nursing home suppression given retained portion of mesh) Anticipated [...] thefuture. Follow Up Plan: fax results to [phone], follow up with Dr. Colin in 4 weeks, The ID service communicated with above provider who agrees to follow the patient, After discharge additional questions can be directed to the clinic at [phone] and Patient has been educated about the risks and benefits of IV antibiotics (OPAT) ID PROVIDER INSTRUCTIONS: PLEASE FORWARD THIS PLAN OF CARE NOTE TO Pia BALDWIN AND ADD PATIENT TO THE PRE-OPAT [...] BE FAXED TO INFECTIOUS DISEASE CLINIC AT: [phone] PLEASE CALL THE INFECTIOUS DISEASES CLINIC WITH ANY QUESTIONS AT: [phone] * Plan of Care - Jennifer Rasmussen [...] Impression: Removal infected abdominal wire mesh Referrals: CM gave list of agencies for nursing home Support: Transportation: F/U Appt: to be scheduled by [facility] ADD: 04/27 Problem: Establish a safe discharge Goal: Implement a safe discharge home with family support and follow up. Case Management will follow for planning and referrals as needed. Xiomy Richards RN, Jacker * Assessment & Plan Note - Vinny [...] monitor labs, promote rest * Plan of Jorge A - Telma Henriquez RN - 04/24/2020 10:21 [...] 3.5X8 ABDOMINAL SKIN EXCISION 6X5.5 Patient location: [facility] Last vitals: Vitals: 04/22/20 1650 BP: 137/90 Pulse: 81 Resp: 14 Temp: 36.9 ??C (98.4 ??F) SpO2: 94% Level of consciousness: awake, alert and oriented Post-anesthesia pain: pain needs to be addressed Anesthetic complications: no Patient is lying in bed awake, and currently complaining of abdominal pain of 9/10. Nursing staff notified. * Plan of Care - Arabella Gustafson RN - 04/22/2020 5:03 PM CDT Problem: Health Behavior: Goal: Understanding of discharge needs will improve 04/22/2020 170 by Arabella Gustafson RN Outcome: Progressing 04/22/2020 [...] Yeh MD - 04/22/2020 7:30 AM CDT [facility] Acute and Critical Care Surgery Operative [...] - Assisting Anesthesiologist: Luis Felipe Villafuerte MD PATTERN STORAGE CLERK: He Hunt CRNA Student Nurse Management Recruiter: KATHARINE Nam Stopperer Assembler: Corry Gamez RN Stopperer Assembler Relief: Rmei Orourke RN Scrub: ST Ana DATE OF [...] encounter Results * Vancomycin, trough Due at 0100 04/28 (04/28/2020 1:11 AM CDT) Vancomycin trough 12.0 10.0 - 20.9 mcg/mL [facility] Blood specimen (specimen) 04/28/2020 1:11 AM CDT 04/28/2020 1:25 AM CDT Narrative [facility] - 04/28/2020 2:50 AM CDT Due at 0100 04/28 Catherine Sharma DIRECTOR STERILE PROCESSING LAB BLOOD ORDERABLES F inal Result Performing Organization Address [facility] Co de Phone Number [facility] [place] [address] * Protime-INR (04/27/2020 9:12 PM CDT) Pathologist [facility] PT 12.6 8.6 - 13.0 sec [facility] INR 1.2 0.8 - 1.2 [facility] Comment: Interpretive data Oral anticoagulant therapeutic ranges: Venous thromboembolism prophylaxis or treatment: 2.0-3.0 CARDIOLOGY Standard range: 2.0-3.0 High-intensity range: 2.5-3.5 Refer to indication-specific guidelines for appropriate target ranges for prosthetic heart valve replacement. Current interpretive data was last revised on 2019. Blood specimen (specimen) 04/27/2020 9:12 PM CDT 04/27/2020 10:48 PM CDT Vinny Mcnair DIRECTOR STERILE PROCESSING LAB BLOOD ORDERABLES Final Result Performing Organization Address [facility] Co de Phone Number [facility] [place] [address] * Phosphorus (04/27/2020 9:12 PM CDT) Phosphorus, pl 3.0 2.3 - 4.5 mg/dL [facility] Blood specimen (specimen) 04/27/2020 9:12 PM CDT 04/27/2020 10:52 PM CDT Vinny Mcnair DIRECTOR STERILE PROCESSING LAB BLOOD ORDERABLES Final Result [facility] Department [place] [address] * Magnesium (04/27/2020 9:12 PM CDT) Pathologist [facility] Magnesium 1.7 1.4 - 2.5 mg/dL [facility] Blood specimen (specimen) 04/27/2020 9:12 PM CDT 04/27/2020 10:52 PM CDT Vinny Mcnair DIRECTOR STERILE PROCESSING LAB BLOOD ORDERABLES Final Result Performing Organization Address [facility] de Phone Number [facility] Department [place] [address] * Basic metabolic panel (04/27/2020 9:12 PM CDT) [facility] Sodium 137 135 - 145 mmol/L [facility] Potassium, pl 4.0 3.3 - 4.9 mmol/L [facility] Chloride 105 97 - 110 mmol/L [facility] CO2 26 22 - 32 mmol/L [facility] Anion gap 6 2 - 15 mmol/L [facility] BUN 9 8 - 25 mg/dL [facility] Creatinine 0.79 0.60 - 1.10 mg/dL [facility] Glucose 101 70 - 199 mg/dL [facility] Comment: Interpretive Data Fasting glucose >/= 126 [...] 2017. Calcium 8.9 8.5 - 10.3 mg/dL [facility] Blood specimen (specimen) 04/27/2020 9:12 PM CDT 04/27/2020 10:52 PM CDT Vinny Mcnair NP LAB BLOOD ORDERABLES Final Result [facility] Department [place] [address] * (ABNORMAL) CBC without differential (04/27/2020 9:12 PM CDT) [facility] WBC 5.9 3.8 - 9.9 K/cumm [facility] Hgb 8.8(L) 11.9 - 15.5 g/dL [facility] Hct 27.1(L) 35.6 - 45.5 % [facility] Plt 300 150 - 400 K/cumm [facility] MPV 9.8 9.1 - 12.3 fL [facility] RBC 3.00(L) 3.90 - 5.20 M/cumm [facility] MCV 90.3 81.3 - 96.4 fL [facility] MCH 29.3 27.1 - 33.3 pg [facility] MCHC 32.5 32.3 - 35.7 g/dL [facility] RDW CV 14.4 11.1 - 14.9 % [facility] RDW SD 47.3 35.7 - 48.1 fL [facility] NRBC abs 0.00 0.00 - 0.01 K/cumm [facility] Blood specimen (specimen) 04/27/2020 9:12 PM CDT 04/27/2020 10:52 PM CDT Narrative [facility] - 04/27/2020 11:02 PM CDT Until heparin is discontinued. us Vinny Mcnair NP LAB BLOOD ORDERABLES Final Result [facility] Department [place] [address] * (ABNORMAL) Protime-INR (04/26/2020 10:42 PM CDT) PT 13.4(H) 8.6 - 13.0 sec [facility] INR 1.2 0.8 - 1.2 [facility] Comment: Interpretive data Oral anticoagulant therapeutic ranges: Venous thromboembolism prophylaxis or treatment: 2.0-3.0 CARDIOLOGY Standard range: 2.0-3.0 High-intensity range: 2.5-3.5 Refer to indication-specific guidelines for appropriate target ranges for prosthetic heart valve replacement. Current interpretive data was last revised on 2019. Blood specimen (specimen) 04/26/2020 10:42 PM CDT 04/26/2020 11:57 PM CDT Vinny Mcnair DIRECTOR STERILE PROCESSING LAB BLOOD ORDERABLES Final Result Performing Organization Address [facility] de Phone Number [facility] [place] [address] * Phosphorus (04/26/2020 10:42 PM CDT) Pathologist [facility] Phosphorus, pl 2.6 2.3 - 4.5 mg/dL [facility] Blood specimen (specimen) 04/26/2020 10:42 PM CDT 04/26/2020 11:32 PM CDT Vinny Mcnair NP LAB BLOOD ORDERABLES Final Result Performing Organization Address [facility] de Phone Number [facility] [place] [address] * Magnesium (04/26/2020 10:42 PM CDT) Pathologist [facility] Magnesium 1.8 1.4 - 2.5 mg/dL [facility] Blood specimen (specimen) 04/26/2020 10:42 PM CDT 04/26/2020 11:32 PM CDT Vinny Mcnair NP LAB BLOOD ORDERABLES Final Result [facility] Department [place] [address] * (ABNORMAL) Basic metabolic panel (04/26/2020 10:42 PM CDT) Pathologist [facility] Sodium 139 135 - 145 mmol/L [facility] Potassium, pl 3.3 3.3 - 4.9 mmol/L [facility] Chloride 107 97 - 110 mmol/L [facility] CO2 25 22 - 32 mmol/L [facility] Anion gap 7 2 - 15 mmol/L [facility] BUN 6(L) 8 - 25 mg/dL [facility] Creatinine 0.72 0.60 - 1.10 mg/dL [facility] Glucose 106 70 - 199 mg/dL [facility] Comment: Interpretive Data Fasting glucose >/= 126 [...] 2017. Calcium 8.9 8.5 - 10.3 mg/dL [facility] Blood specimen (specimen) 04/26/2020 10:42 PM CDT 04/26/2020 11:32 PM CDT us Vinny Mcnair NP LAB BLOOD ORDERABLES Final Result [facility] Department [place] [address] * (ABNORMAL) CBC without differential (04/26/2020 10:42 PM CDT) Pathologist [facility] WBC 7.7 3.8 - 9.9 K/cumm [facility] Hgb 9.4(L) 11.9 - 15.5 g/dL [facility] Hct 29.0(L) 35.6 - 45.5 % [facility] Plt 280 150 - 400 K/cumm [facility] MPV 9.8 9.1 - 12.3 fL [facility] RBC 3.23(L) 3.90 - 5.20 M/cumm [facility] MCV 89.8 81.3 - 96.4 fL [facility] MCH 29.1 27.1 - 33.3 pg [facility] MCHC 32.4 32.3 - 35.7 g/dL [facility] RDW CV 14.2 11.1 - 14.9 % [facility] RDW SD 46.7 35.7 - 48.1 fL [facility] NRBC abs 0.00 0.00 - 0.01 K/cumm [facility] Blood specimen (specimen) 04/26/2020 10:42 PM CDT 04/26/2020 11:32 PM CDT Narrative [facility] - 04/26/2020 11:42 PM CDT Until heparin is discontinued. us Vinny Mcnair NP LAB BLOOD ORDERABLES Final Result [facility] Department [place] [address] * (ABNORMAL) CBC without differential (04/26/2020 12:51 PM CDT) WBC 7.2 3.8 - 9.9 K/cumm [facility] Hgb 9.2(L) 11.9 - 15.5 g/dL [facility] Hct 28.8(L) 35.6 - 45.5 % [facility] Plt 289 150 - 400 K/cumm [facility] MPV 9.5 9.1 - 12.3 fL [facility] RBC 3.21(L) 3.90 - 5.20 M/cumm [facility] MCV 89.7 81.3 - 96.4 fL [facility] MCH 28.7 27.1 - 33.3 pg [facility] MCHC 31.9(L) 32.3 - 35.7 g/dL [facility] RDW CV 14.1 11.1 - 14.9 % [facility] RDW SD 46.4 35.7 - 48.1 fL [facility] NRBC abs 0.00 0.00 - 0.01 K/cumm [facility] Blood specimen (specimen) 04/26/2020 12:51 PM CDT 04/26/2020 1:04 PM CDT Ari Tish Yeh MD LAB BLOOD ORDERABLES Final R esult [facility] Department of Laboratories [place], [place] [id number] * US Vein Duplex Lower Extremity Bilateral Complete (04/26/2020 11:30 AM CDT) Anatomical Region Laterality Modality Vascular Bilateral Ultrasound 04/26/2020 11:0 5 AM CDT Narrative 04/26/2020 7:42 PM CDT [facility] - Department of Vascular Surgery, Vascular Laboratory [address] [place] [address] Lower Extremity Venous Ultrasound Report Patient Name: MADISON WEINBERG J : 1965 (54y 4m) Study Date: 04/26/2020 11:05:20 AM Gender: F Tech: Location: [id number] Ref.Provider: ARI YEH Quality: Adequate Order Provider: LIBBY DON Procedures: Vascular Report: Venous Duplex imaging was performed bilaterally in the lower extremities. The common femoral, femoral, popliteal, posterior tibial, peroneal veins were evaluated for patency, spontaneity and phasicity with Doppler, compression and augmentation maneuvers. Great saphenous vein proximal at the junction was evaluated with compression maneuvers. Indications: bilateral edema. Findings: Performing Window Installation Subcontractor: Lou Ward RVT. Bilateral: Venous Doppler signals [...] performed. Electronically Signed By: Manuel Valero MD [facility] [phone] 2020-04-26 19:42:00 CDT CC: CC: Procedure Note Manuel Valero MD - 04/26/2020 [facility] - Department of Vascular Surgery,Vascular Laboratory [address] [place] [address] Lower Extremity Venous Ultrasound Report Patient Name: MADISON WEINBERG JPatient ID: [id number] : 1965 (54y 4m)Study Date: 04/26/2020 11:05:20 AM Gender: FAccession #: [id number] Tech: DRLocation: [id number] Ref.Provider: Hugh YEHality: Adequate Order Provider: Angelita DON #: [id number] Procedures: Vascular Report: Venous Duplex imaging was performed bilaterally in the lower extremities.The common femoral, femoral, popliteal, posterior tibial, peroneal veins wereevaluated for patency, spontaneity and phasicity with Doppler, compression and augmentationmaneuvers. Great saphenous vein proximal at the junction was evaluated with compressionmaneuvers. Indications: bilateral edema. Findings: Performing Window Installation Subcontractor: Lou Ward RVT. Bilateral: Venous Doppler signals [...] performed. Electronically Signed By: Manuel Valero MD [facility] [phone] 2020-04-26 19:42:00 CDT CC: CC: Libby Don DIRECTOR STERILE PROCESSING IMG US PROCEDURES Final Res ult * (ABNORMAL) aPTT (04/26/2020 8:09 AM CDT) aPTT 81(H) 25 - 37 sec [facility] Comment: Interpretive data Heparin therapeutic range: 60-90 seconds Range based on correlation with therapeutic heparin activity range of 0.3-0.7 units/ml. Current interpretive data was last revised on 2019. Blood specimen (specimen) 04/26/2020 8:09 AM CDT 04/26/2020 8:25 AM CDT Narrative [facility] - 04/26/2020 8:47 AM CDT Draw STAT PTT 6 hrs after initial heparin bolus, after each rate change, and every 6 hours until 2 consecutive PTTs are within therapeutic range. Once two consecutive PTT's are therapeutic (60-94.9 seconds), then draw PTT every AM until heparin is discontinued. Vinny Mcnair NP LAB BLOOD ORDERABLES Final Result [facility] Department [place] [address] * (ABNORMAL) Vancomycin, trough (04/26/2020 12:08 AM CDT) Vancomycin trough 7.3(L) 10.0 - 20.9 mcg/mL [facility] Blood specimen (specimen) 04/26/2020 12:08 AM CDT 04/26/2020 12:23 AM CDT Arijoe Yeh MD LAB BLOOD ORDERABLES Final R esult Performing Organization Address [facility] Co de Phone Number [facility] [place] [address] * (ABNORMAL) aPTT (04/26/2020 12:08 AM CDT) aPTT 50(H) 25 - 37 sec [facility] Comment: Interpretive data Heparin therapeutic range: 60-90 seconds Range based on correlation with therapeutic heparin activity range of 0.3-0.7 units/ml. Current interpretive data was last revised on 2019. Blood specimen (specimen) 04/26/2020 12:08 AM CDT 04/26/2020 12:22 AM CDT us Ari Yeh MD LAB BLOOD ORDERABLES Final R esult Performing Organization Address [facility] Co de Phone Number [facility] [place] [address] * (ABNORMAL) Protime-INR (04/26/2020 12:08 AM CDT) PT 14.0(H) 8.6 - 13.0 sec [facility] INR 1.3(H) 0.8 - 1.2 [facility] Comment: Interpretive data Oral anticoagulant therapeutic ranges: Venous thromboembolism prophylaxis or treatment: 2.0-3.0 CARDIOLOGY Standard range: 2.0-3.0 High-intensity range: 2.5-3.5 Refer to indication-specific guidelines for appropriate target ranges for prosthetic heart valve replacement. Current interpretive data was last revised on 2019. Blood specimen (specimen) 04/26/2020 12:08 AM CDT 04/26/2020 12:22 AM CDT us Vinny Mcnair NP LAB BLOOD ORDERABLES Final Result Performing Organization Address [facility] Co de Phone Number [facility] [place] [address] * Phosphorus (04/26/2020 12:08 AM CDT) Pathologist [facility] Phosphorus, pl 3.3 2.3 - 4.5 mg/dL [facility] Blood specimen (specimen) 04/26/2020 12:08 AM CDT 04/26/2020 12:23 AM CDT Vinny Mcnair DIRECTOR STERILE PROCESSING LAB BLOOD ORDERABLES Final Result [facility] Department [place] [address] * Magnesium (04/26/2020 12:08 AM CDT) [facility] Magnesium 1.8 1.4 - 2.5 mg/dL [facility] Blood specimen (specimen) 04/26/2020 12:08 AM CDT 04/26/2020 12:23 AM CDT Vinny Mcnair DIRECTOR STERILE PROCESSING LAB BLOOD ORDERABLES Final Result Performing Organization Address City/[facility]/ZIP Co de Phone Number [facility] [place] [address] * (ABNORMAL) Basic metabolic panel (04/26/2020 12:08 AM CDT) [facility] Sodium 138 135 - 145 mmol/L [facility] Potassium, pl 4.0 3.3 - 4.9 mmol/L [facility] Chloride 104 97 - 110 mmol/L [facility] CO2 27 22 - 32 mmol/L [facility] Anion gap 7 2 - 15 mmol/L [facility] BUN 7(L) 8 - 25 mg/dL [facility] Creatinine 0.88 0.60 - 1.10 mg/dL [facility] Glucose 106 70 - 199 mg/dL [facility] Comment: Interpretive Data Fasting glucose >/= 126 [...] 2017. Calcium 8.6 8.5 - 10.3 mg/dL [facility] Blood specimen (specimen) 04/26/2020 12:08 AM CDT 04/26/2020 12:23 AM CDT us Vinny Mcnair NP LAB BLOOD ORDERABLES Final Result [facility] Department [place] [address] * (ABNORMAL) CBC without differential (04/26/2020 12:08 AM CDT) WBC 7.3 3.8 - 9.9 K/cumm [facility] Hgb 9.1(L) 11.9 - 15.5 g/dL [facility] Hct 27.8(L) 35.6 - 45.5 % [facility] Plt 266 150 - 400 K/cumm [facility] MPV 9.5 9.1 - 12.3 fL [facility] RBC 3.15(L) 3.90 - 5.20 M/cumm [facility] MCV 88.3 81.3 - 96.4 fL [facility] MCH 28.9 27.1 - 33.3 pg [facility] MCHC 32.7 32.3 - 35.7 g/dL [facility] RDW CV 14.2 11.1 - 14.9 % [facility] RDW SD 45.9 35.7 - 48.1 fL [facility] NRBC abs 0.00 0.00 - 0.01 K/cumm [facility] Blood specimen (specimen) 04/26/2020 12:08 AM CDT 04/26/2020 12:24 AM CDT Narrative [facility] - 04/26/2020 12:33 AM CDT Until heparin is discontinued. Vinny Mcnair NP LAB BLOOD ORDERABLES Final Result Performing Organization Address [facility] de Phone Number [facility] Department [place] [address] * aPTT (04/25/2020 6:15 AM CDT) aPTT 30 25 - 37 sec [facility] Comment: Interpretive data Heparin therapeutic range: 60-90 seconds Range based on correlation with therapeutic heparin activity range of 0.3-0.7 units/ml. Current interpretive data was last revised on 2019. Blood specimen (specimen) 04/25/2020 6:15 AM CDT 04/25/2020 6:45 AM CDT Ari Yeh MD LAB BLOOD ORDERABLES Final R esult Performing Organization Address [facility] de Phone Number [facility] [place] [address] * Protime-INR (04/25/2020 6:15 AM CDT) PT 11.3 8.6 - 13.0 sec [facility] INR 1.0 0.8 - 1.2 [facility] Comment: Interpretive data Oral anticoagulant therapeutic ranges: Venous thromboembolism prophylaxis or treatment: 2.0-3.0 CARDIOLOGY Standard range: 2.0-3.0 High-intensity range: 2.5-3.5 Refer to indication-specific guidelines for appropriate target ranges for prosthetic heart valve replacement. Current interpretive data was last revised on 2019. Blood specimen (specimen) 04/25/2020 6:15 AM CDT 04/25/2020 6:42 AM CDT Vinny Mcnair NP LAB BLOOD ORDERABLES Final Result Performing Organization Address [facility] de Phone Number [facility] Department [place] [address] * Phosphorus (04/25/2020 6:15 AM CDT) [facility] Phosphorus, pl 3.3 2.3 - 4.5 mg/dL [facility] Blood specimen (specimen) 04/25/2020 6:15 AM CDT 04/25/2020 6:35 AM CDT Vinny Mcnair DIRECTOR STERILE PROCESSING LAB BLOOD [place] [address] * Magnesium (04/25/2020 6:15 AM CDT) [facility] Magnesium 2.1 1.4 - 2.5 mg/dL [facility] Blood specimen (specimen) 04/25/2020 6:15 AM CDT 04/25/2020 6:35 AM CDT Vinny Mcnair DIRECTOR STERILE PROCESSING LAB BLOOD ORDERABLES Final Result Performing Organization Address City/[facility] [place] [address] * (ABNORMAL) Basic metabolic panel (04/25/2020 6:15 AM CDT) [facility] Sodium 140 135 - 145 mmol/L [facility] Potassium, pl 3.7 3.3 - 4.9 mmol/L [facility] Chloride 102 97 - 110 mmol/L [facility] CO2 27 22 - 32 mmol/L [facility] Anion gap 11 2 - 15 mmol/L [facility] BUN 4(L) 8 - 25 mg/dL [facility] Creatinine 0.69 0.60 - 1.10 mg/dL [facility] Glucose 105 70 - 199 mg/dL [facility] Comment: Interpretive Data Fasting glucose >/= 126 [...] 2017. Calcium 9.8 8.5 - 10.3 mg/dL [facility] Blood specimen (specimen) 04/25/2020 6:15 AM CDT 04/25/2020 6:35 AM CDT Vinny Mcnair NP LAB BLOOD ORDERABLES Final Result [facility] Department [place] [address] * CBC without differential (04/25/2020 6:15 AM CDT) WBC 8.7 3.8 - 9.9 K/cumm [facility] Hgb 12.0 11.9 - 15.5 g/dL [facility] Hct 37.0 35.6 - 45.5 % [facility] Plt 320 150 - 400 K/cumm [facility] MPV 9.8 9.1 - 12.3 fL [facility] RBC 4.12 3.90 - 5.20 M/cumm [facility] MCV 89.8 81.3 - 96.4 fL [facility] MCH 29.1 27.1 - 33.3 pg [facility] MCHC 32.4 32.3 - 35.7 g/dL [facility] RDW CV 14.1 11.1 - 14.9 % [facility] RDW SD 46.2 35.7 - 48.1 fL [facility] NRBC abs 0.00 0.00 - 0.01 K/cumm [facility] Blood specimen (specimen) 04/25/2020 6:15 AM CDT 04/25/2020 6:37 AM CDT Narrative [facility] - 04/25/2020 6:48 AM CDT Until heparin is discontinued. Vinny Mcnair NP LAB BLOOD ORDERABLES Final Result Performing Organization Address [facility] [place] [address] * (ABNORMAL) aPTT (04/24/2020 6:44 AM CDT) aPTT 138(H) 25 - 37 sec [facility] Comment: Interpretive data Heparin therapeutic range: 60-90 seconds Range based on correlation with therapeutic heparin activity range of 0.3-0.7 units/ml. Current interpretive data was last revised on 2019. Blood specimen (specimen) 04/24/2020 6:44 AM CDT 04/24/2020 7:58 AM CDT [facility] - 04/24/2020 8:42 AM CDT Draw STAT PTT 6 hrs after initial heparin bolus, after each rate change, and every 6 hours until 2 consecutive PTTs are within therapeutic range. Once two consecutive PTT's are therapeutic (60-94.9 seconds), then draw PTT every AM until heparin is discontinued. Vinny Mcnair NP LAB BLOOD ORDERABLES Final Result Performing Organization Address [facility] [place] [address] * (ABNORMAL) aPTT (04/24/2020 12:26 AM CDT) aPTT 64(H) 25 - 37 sec [facility] Comment: Interpretive data Heparin therapeutic range: 60-90 seconds Range based on correlation with therapeutic heparin activity range of 0.3-0.7 units/ml. Current interpretive data was last revised on 2019. Blood specimen (specimen) 04/24/2020 12:26 AM CDT 04/24/2020 1:07 AM CDT [facility] - 04/24/2020 1:44 AM CDT Draw STAT PTT 6 hrs after initial heparin bolus, after each rate change, and every 6 hours until 2 consecutive PTTs are within therapeutic range. Once two consecutive PTT's are therapeutic (60-94.9 seconds), then draw PTT every AM until heparin is discontinued. Vinny Mcnair NP LAB BLOOD ORDERABLES Final Result Performing Organization Address [facility] Co de Phone Number [facility] [place] [address] * (ABNORMAL) Phosphorus (04/23/2020 6:39 PM CDT) [facility] Phosphorus, pl 1.7(L) 2.3 - 4.5 mg/dL [facility] Blood specimen (specimen) 04/23/2020 6:39 PM CDT 04/23/2020 7:10 PM CDT Vinny Mcnair NP LAB BLOOD ORDERABLES Final Result Performing Organization Address [facility] Co de Phone Number [facility] [place] [address] * Magnesium (04/23/2020 6:39 PM CDT) [facility] Magnesium 1.7 1.4 - 2.5 mg/dL [facility] Blood specimen (specimen) 04/23/2020 6:39 PM CDT 04/23/2020 7:10 PM CDT Vinny Mcnair NP LAB BLOOD ORDERABLES Final Result Performing Organization Address [facility] [place] [address] * Basic metabolic panel (04/23/2020 6:39 PM CDT) [facility] Sodium 138 135 - 145 mmol/L [facility] Potassium, pl 3.7 3.3 - 4.9 mmol/L [facility] Chloride 105 97 - 110 mmol/L [facility] CO2 24 22 - 32 mmol/L [facility] Anion gap 9 2 - 15 mmol/L [facility] BUN 11 8 - 25 mg/dL [facility] Creatinine 0.73 0.60 - 1.10 mg/dL [facility] Glucose 105 70 - 199 mg/dL [facility] Comment: Interpretive Data Fasting glucose >/= 126 [...] 2017. Calcium 8.8 8.5 - 10.3 mg/dL [facility] Blood specimen (specimen) 04/23/2020 6:39 PM CDT 04/23/2020 7:10 PM CDT Vinny Mcnair NP LAB BLOOD ORDERABLES Final Result [facility] Department [place] [address] * aPTT (04/23/2020 6:39 PM CDT) aPTT 32 25 - 37 sec [facility] Comment: Interpretive data Heparin therapeutic range: 60-90 seconds Range based on correlation with therapeutic heparin activity range of 0.3-0.7 units/ml. Current interpretive data was last revised on 2019. Blood specimen (specimen) 04/23/2020 6:39 PM CDT 04/23/2020 7:08 PM CDT Narrative [facility] - 04/23/2020 7:19 PM CDT Unless preformed in the last 48 hours. Draw prior to heparin administration. Vinny Govind Anastas DIRECTOR STERILE PROCESSING LAB BLOOD ORDERABLES Final Result Performing Organization Address City/[facility] Co de Phone Number [facility] Department [place] [address] * Protime-INR (04/23/2020 6:39 PM CDT) [facility] PT 12.1 8.6 - 13.0 sec [facility] INR 1.1 0.8 - 1.2 [facility] Comment: Interpretive data Oral anticoagulant therapeutic ranges: Venous thromboembolism prophylaxis or treatment: 2.0-3.0 CARDIOLOGY Standard range: 2.0-3.0 High-intensity range: 2.5-3.5 Refer to indication-specific guidelines for appropriate target ranges for prosthetic heart valve replacement. Current interpretive data was last revised on 2019. Blood specimen (specimen) 04/23/2020 6:39 PM CDT 04/23/2020 7:08 PM CDT Narrative [facility] - 04/23/2020 7:19 PM CDT Unless preformed in the last 48 hours. Draw prior to heparin administration. Vinny Mcnair DIRECTOR STERILE PROCESSING LAB BLOOD ORDERABLES Final Result Performing Organization Address [facility] de Phone Number [facility] Department [place] [address] * (ABNORMAL) CBC without differential (04/23/2020 6:39 PM CDT) [facility] WBC 9.6 3.8 - 9.9 K/cumm [facility] Hgb 10.4(L) 11.9 - 15.5 g/dL [facility] Hct 32.8(L) 35.6 - 45.5 % [facility] Plt 300 150 - 400 K/cumm [facility] MPV 9.8 9.1 - 12.3 fL [facility] RBC 3.62(L) 3.90 - 5.20 M/cumm [facility] MCV 90.6 81.3 - 96.4 fL [facility] MCH 28.7 27.1 - 33.3 pg [facility] MCHC 31.7(L) 32.3 - 35.7 g/dL [facility] RDW CV 14.2 11.1 - 14.9 % [facility] RDW SD 47.5 35.7 - 48.1 fL [facility] NRBC abs 0.00 0.00 - 0.01 K/cumm [facility] Blood specimen (specimen) 04/23/2020 6:39 PM CDT 04/23/2020 7:09 PM CDT Narrative [facility] - 04/23/2020 7:18 PM CDT Unless preformed in the last 48 hours. Draw prior to heparin administration. us Vinny Mcnair NP LAB BLOOD ORDERABLES Final Result Performing Organization Address City/[facility] Co de Phone Number [facility] Department [place] [address] * Phosphorus (04/23/2020 4:24 AM CDT) Phosphorus, pl 3.2 2.3 - 4.5 mg/dL [facility] Blood specimen (specimen) 04/23/2020 4:24 AM CDT 04/23/2020 4:43 AM CDT Aricelsa Yeh MD LAB BLOOD ORDERABLES Final R esult Performing Organization Address [facility] Co de Phone Number [facility] Department [place] [address] * Magnesium (04/23/2020 4:24 AM CDT) Magnesium 1.8 1.4 - 2.5 mg/dL [facility] Blood specimen (specimen) 04/23/2020 4:24 AM CDT 04/23/2020 4:43 AM CDT Aricelsa Yeh MD LAB BLOOD ORDERABLES Final R esult Performing Organization Address [facility] Co de Phone Number [facility] Department [place] [address] * (ABNORMAL) Differential, auto (04/23/2020 4:24 AM CDT) Neutrophil abs 8.3(H) 1.7 - 6.5 K/cumm [facility] Imm gran abs 0.0 0.0 - 0.1 K/cumm [facility] Lymphocyte abs 1.3 0.8 - 3.3 K/cumm [facility] Monocyte abs 0.5 0.2 - 0.8 K/cumm [facility] Eosinophil abs 0.0 0.0 - 0.5 K/cumm [facility] Basophil abs 0.0 0.0 - 0.1 K/cumm [facility] Neutrophil pct 82.1 % [facility] Comment: Interpretive Data Percent cell count reference ranges are not reported, since discordance with absolute values may lead to misinterpretation of CBC data. Current Interpretive Data was last revised on 2017. Imm gran pct 0.2 % [facility] Comment: Interpretive Data Percent cell count reference ranges are not reported, since discordance with absolute values may lead to misinterpretation of CBC data. Current Interpretive Data was last revised on 2017. Lymphocyte pct 12.9 % [facility] Comment: Interpretive Data Percent cell count reference ranges are not reported, since discordance with absolute values may lead to misinterpretation of CBC data. Current Interpretive Data was last revised on 2017. Monocyte pct 4.7 % [facility] Comment: Interpretive Data Percent cell count reference ranges are not reported, since discordance with absolute values may lead to misinterpretation of CBC data. Current Interpretive Data was last revised on 2017. Eosinophil pct 0.0 % [facility] Comment: Interpretive Data Percent cell count reference ranges are not reported, since discordance with absolute values may lead to misinterpretation of CBC data. Current Interpretive Data was last revised on 2017. Basophil pct 0.1 % [facility] Comment: Interpretive Data Percent cell count reference ranges are not reported, since discordance with absolute values may lead to misinterpretation of CBC data. Current Interpretive Data was last revised on 2017. Blood specimen (specimen) 04/23/2020 4:24 AM CDT 04/23/2020 4:42 AM CDT Ari Tish Yeh MD LAB BLOOD ORDERABLES Final R esult Performing Organization Address City/[facility] Co de Phone Number [facility] Department [place] [address] * (ABNORMAL) CBC with auto differential (04/23/2020 4:24 AM CDT) Pathologist [facility] WBC 10.1(H) 3.8 - 9.9 K/cumm [facility] Hgb 11.5(L) 11.9 - 15.5 g/dL [facility] Hct 36.2 35.6 - 45.5 % [facility] Plt 286 150 - 400 K/cumm [facility] MPV 9.8 9.1 - 12.3 fL [facility] RBC 4.00 3.90 - 5.20 M/cumm [facility] MCV 90.5 81.3 - 96.4 fL [facility] MCH 28.8 27.1 - 33.3 pg [facility] MCHC 31.8(L) 32.3 - 35.7 g/dL [facility] RDW CV 14.1 11.1 - 14.9 % [facility] RDW SD 47.1 35.7 - 48.1 fL [facility] NRBC abs 0.00 0.00 - 0.01 K/cumm [facility] Blood specimen (specimen) 04/23/2020 4:24 AM CDT 04/23/2020 4:42 AM CDT us Ari Tish Yeh MD LAB BLOOD ORDERABLES Final R esult Performing Organization Address City/[facility]/ZIP Co de Phone Number [facility] [place] [address] * (ABNORMAL) Comprehensive metabolic panel (04/23/2020 4:24 AM CDT) Pathologist [facility] Sodium 136 135 - 145 mmol/L [facility] Potassium, pl 5.1(H) 3.3 - 4.9 mmol/L [facility] Chloride 102 97 - 110 mmol/L [facility] CO2 24 22 - 32 mmol/L [facility] Anion gap 10 2 - 15 mmol/L [facility] BUN 11 8 - 25 mg/dL [facility] Creatinine 0.73 0.60 - 1.10 mg/dL [facility] Glucose 100 70 - 199 mg/dL [facility] Comment: Interpretive Data Fasting glucose >/= 126 [...] 2017. Calcium 9.3 8.5 - 10.3 mg/dL [facility] Bilirubin, total 0.2 0.1 - 1.2 mg/dL [facility] Protein, pl 6.7 6.5 - 8.5 g/dL [facility] Albumin 3.8 3.5 - 5.0 g/dL [facility] Alk phos 111 40 - 130 Units/L [facility] ALT 16 7 - 45 Units/L [facility] AST 24 10 - 45 Units/L [facility] Blood specimen (specimen) 04/23/2020 4:24 AM CDT 04/23/2020 4:43 AM CDT us Ari Tish Yeh MD LAB BLOOD ORDERABLES Final R esult [facility] [place] [address] * Mycology (fungal) culture Tissue Abdominal (04/22/2020 10:05 AM CDT) Report Final Report: No growth of fungus [facility] Tissue (Abdominal) 04/22/2020 10:05 AM CDT 04/22/2020 11:27 AM CDT Narrative [facility] - 05/20/2020 6:58 AM CDT Infected mesh Testing performed by [facility] ([phone]). us Ari Tish Yeh MD LAB MICROBIOLOGY - GENERAL O RDERABLES Final Result [facility] Department [place] [address] * (ABNORMAL) Tissue aerobic and anaerobic culture and gram stain Tissue Abdominal (04/22/2020 10:05 AM CDT) Direct Specimen Exam Stain: No polymorphonuclear leukocytes seen. No organisms seen. [facility] Report Final Report: Rare Staphylococcus aureus Methicillin resistant (MRSA) by penicillin binding protein 2a (PBP2a) testing. (.) [facility] Organism STAPHYLOCOCCUS AUREUS [facility] Tissue (Abdominal) 04/22/2020 10:05 AM CDT 04/22/2020 11:27 AM CDT Narrative [facility] - 04/25/2020 10:44 AM CDT Infected mesh Testing performed by [facility] ([phone]) Specimens submitted from normally sterile body sites [...] Ceftriaxone (LA) INTERPRETATIO N Resistant us Ari Tish Yeh MD LAB MICROBIOLOGY - GENERAL O RDERABLES Final Result Performing Organization Address [facility] Co de Phone Number [facility] [place] [address] * Mycology (fungal) culture Tissue Abdominal (04/22/2020 10:05 AM CDT) Report Final Report: No growth of fungus [facility] Tissue (Abdominal) 04/22/2020 10:05 AM CDT 04/22/2020 11:28 AM CDT Narrative [facility] - 05/20/2020 6:59 AM CDT Infected mesh Testing performed by [facility] ([phone]). us Ari Tish Yeh MD LAB MICROBIOLOGY - GENERAL O RDERABLES Final Result Performing Organization Address [facility] [place] [address] * Tissue aerobic and anaerobic culture and gram stain Tissue Abdominal (04/22/2020 10:05 AM CDT) Direct Specimen Exam Stain: No polymorphonuclear leukocytes seen. No organisms seen. [facility] Report Final Report: No growth [facility] Tissue (Abdominal) 04/22/2020 10:05 AM CDT 04/22/2020 11:28 AM CDT Narrative [facility] - 04/25/2020 9:28 AM CDT Infected mesh Testing performed by [facility] ([phone]) Specimens submitted from normally sterile body sites [...] data was last revised on 2019. us Arijoe Yeh MD LAB MICROBIOLOGY - GENERAL O RDERABLES Final Result Performing Organization Address City/State/[facility] Co [place] Phone Number [facility] Department [place] [address] documented in this encounter Visit Diagnoses Diagnosis Infected prosthetic mesh of abdominal wall, initial encounter ([facility]) Abdominal pain Abdominal pain, unspecified site Abdominal pain Abdominal pain, unspecified site documented in this encounter Admitting Diagnoses Diagnosis [...] Given 04/27/2020 11:15 PM CDT 1,000 mg clonazePAM (KlonoPIN) tablet 0.5 mg 0.5 [...] oral, 3 times daily, First dose on 9/11/20 at 1700 Given 04/28/2020 8:47 AM CDT [...] CDT 40 mg Le ft Lower Abdomen lidocaine 1% and bupivacaine (MARCAINE) 0.25% syringe As needed, Starting on Sat04/22/20 at 1001, Intra-Op Given 04/22/2020 10:01 AM CDT 10 mL Surgical Site ondansetron ODT (ZOFRAN-ODT) disintegrating tablet 4 mg 4 mg, oral, 4 times daily PRN, nausea, vomiting, Starting on 04/23/20 at 1059 Given 04/24/2020 8:12 PM CDT 4 mg Given 04/24/2020 2:19 PM CDT 4 mg Given 04/23/2020 5:15 PM CDT 4 mg oxyCODONE (ROXICODONE) tablet 5 mg 5 mg, oral, Every 3 hours PRN, 2nd line for pain, Starting on Sat04/23/20 at 1115, May administer 1 hour after [...] Given 04/27/2020 4:44 PM CDT 50 mg sodium chloride 0.9 % irrigation As needed, Starting on Sat04/22/20 at 0828, Intra-Op Given 04/22/2020 8:28 AM CDT 3,000 mL Surgical Site sodium chloride 0.9% flush 0.5-20 mL 0.5-20 mL, intra-catheter, Every 8 hours scheduled, First dose on Sat04/22/20 at 1700, Flush volume based on line type and size. Given 04/28/2020 12:58 PM CDT 10 mL Given 04/28/2020 5:26 AM CDT 10 [...] based on line type, size, and protocol. sterile water irrigation As needed, Starting on Sat04/22/20 at 0828, Intra-Op Given 04/22/2020 8:28 AM CDT 1,000 mL Other (Comment) traZODone (DESYREL) tablet 150 mg 150 mg, [...] 1200, Indications: Pain 0001 (Given - Provider: Tessy Lowe RN)0648 (Given - Provider: Tessy Lowe RN)1245 (Given - Provider: Jennifer Rasmussen RN)1837 (Given - Provider: Jennifer Rasmussen RN)2324 (Given - Provider: Fay Paniagua RN) 0635 (Given - Provider: Fay Paniagua RN)1234 [...] RN) 0825 (Given - Provider: Jennifer Rasmussen RN)205 (Given - Provider: Fay Paniagua RN) 0847 (Given - Provider: Sly Santiago, KAT) dicyclomine (BENTYL) capsule 10 mg 10 mg, oral, 3 times daily, First dose on Sat04/22/20 at 1700 0800 (Given - Provider: Jennifer Rasmussen RN)1534 (Given - Provider: Jennifer Rasmussen RN)2140 (Given - Provider: Fay Paniagua RN) 0825 (Given - Provider: Jennifer Rasmussen RN)164 (Given - Provider: Jennifer Rasmussen RN)2055 (Given - Provider: Fay Paniagua RN) 0847 (Given - Provider: Sly Santiago, KAT)1600 (Due) enoxaparin (LOVENOX) syringe 40 mg 40 mg, subcutaneous, Daily (for enoxaparin), First dose on Sat04/26/20 at 2100, Indications: Deep Vein Thrombosis Prevention 214 (Given - Provider: Fay Paniagua RN) 2055 [...] Lowe RN)1246 (Given - Provider: Jennifer Rasmussen RN)214 (Given - Provider: Fay Paniagua RN) 0635 (Given - Provider: Fay Paniagua RN)1235 (Given - Provider: Jennifer Rasmussen RN)2058 (Given - Provider: Fay Paniagua RN) 0526 (Given - Provider: Fay Paniagua, KAT)1258 (Given - Provider: Sly Santiago, KAT) sodium chloride 0.9% flush 5-10 mL 5-10 mL, intra-catheter, Every 12 hours scheduled, First dose on Sat04/25/20 at 2100, Flush volume based on line type, size, and protocol. 0801 (Given - Provider: Jennifer Rasmussen RN)2142 (Given - Provider: Fay Paniagua RN) 0826 (Given - Provider: Jennifer Rasmussen RN)2058 (Given - Provider: Fay Paniagua RN) 0848 (Given - Provider: Sly Santiago, RN) traZODone (DESYREL) tablet 150 mg 150 mg, oral, Nightly, First dose on Sat04/22/20 at 2100 2140 (Given - Provider: Fay Paniagua RN) 2055 (Given - Provider: Fay Paniagua RN) vancomycin [...] Paniagua RN)1459 (New Bag - Provider: Sly Santiago, KAT) Continuous Medication Order 04/26/2020 04/27/2020 04/28/2020 heparin [...] Starting on Sat04/26/20 at 1434, Indications: constipation 1644 (Given - [...] Provider: Tessy Lowe RN)0349 (Given - Provider: Tessy Lowe RN)0648 (Given - Provider: Tessy Lowe RN)1048 (Given - Provider: Jennifer Rasmussen RN)1534 (Given - Provider: Jennifer Rasmussen, KAT)1837 (Given - Provider: Jennifer Rasmussen RN)2140 (Given - Provider: Fay Paniagua RN) 0320 (Given - Provider: Fay Paniagua RN)0700 (Given - Provider: Fay Paniagua RN)1234 (Given - Provider: Jennifer Rasmussen, KAT)1645 (Given - Provider: Jennifer Rasmussen RN)2039 (Given [...] on Sat04/26/20 at 1434, Indications: constipation rizatriptan CLINICAL RN (MAXALT-CLINICAL RN) disintegrating tablet 10 mg 10 mg, oral, [...] Count Last Ordered Date First Ordered Date pregabalin (LYRICA) capsule 50 mg 1 020 docusate sodium (COLACE) capsule 100 mg 3 0 04/26/2020 04/22/2020 enoxaparin (LOVENOX) syringe 40 mg 1 2019 polyethylene glycol (MIRALAX) packet 17 g 3 04/26/2020 04/22/2020 rivaroxaban (XARELTO) tablet 20 mg 1 2019 vancomycin 1,000 mg/200 mL i n dextrose 5% (premix) 1,000 mg 1 04/26/2020 vancomycin 750 mg/150 mL in dextrose 5% (premix) 750 mg 3 04/26/2020 04/24/2020 lidocaine PF (XYLOCAINE) 10 mg/mL (1 %) preservative free injection 10-20 mg 1 04/25/2020 sodium chloride 0.9% flush 5-10 mL 1 2019 sodium chloride 0.9% flush 5-20 mL 1 2019 HYDROmorphone (DILAUDID) injection 0.2 mg 4 04/24/2020 04/22/2020 magnesium sulfate 2 g/50 mL in water (premix) 2 g 1 04/24/2020 silver nitrate applicator 3 application 1 0 04/24/2020 sodium phosphate 20 mmol in sodium chloride 0.9% 250 mL IVPB 1 04/24/2020 acetaminophen (TYLENOL) tablet 1,000 mg 1 0 04/23/2020 ceFAZolin (ANCEF) 1 gram/10 mL in sterile water (premix) 1,000 mg 1 04/23/2020 clonazePAM (KlonoPIN) tablet 0.5 mg 1 04/23 heparin in 0.45% sodium chlo ride 25,000 units/250 mL (100 units/mL) infusion (premix) 1 04/23/2020 ondansetron (ZOFRAN) injection 4 mg 2 04/2304/22/2020 ondansetron ODT (ZOFRAN-ODT) disintegrating tablet 4 mg 1 04/23/2020 oxyCODONE (ROXICODONE) tablet 5 mg 2 201904/22/2020 acetaminophen (TYLENOL) tablet 650 mg 1 06/2020 cyclobenzaprine (FLEXERIL) tablet 10 mg 1 0 04/22/2020 dicyclomine (BENTYL) capsule 10 mg 1 2019 fentaNYL (SUBLIMAZE) preserv ative free injection 50 mcg 1 04/22/2020 heparin 5,000 unit/mL inject ion 5,000 Units 1 04/22/2020 HYDROmorphone (DILAUDID) injection 0.4 mg 1 04/22/2020 Lactated Ringer's (LR) infusion 3 0 naloxone (NARCAN) 0.4 mg/mL injection 0.04-0.4 mg 1 04/22/2020 prochlorperazine (COMPAZINE) 10 mg/2 mL (5 mg/mL) injection - ADS Override Pull 1 04/22/2020 prochlorperazine (COMPAZINE) injection 10 mg 1 04/22/2020 rizatriptan CLINICAL RN (MAXALT-CLINICAL RN) disintegrating tablet 10 mg 1 04/22/2020 scopolamine patch 72 hour 1 patch 1 020 sodium chloride 0.9% flush 0.5-20 mL 4 04/12 traZODone (DESYREL) tablet 150 mg 1 020 Lab Orders Without Results Count Last Ordered [...] urine 01/14/21 09/19/2019 02/09/2021 10/10/2021 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
--- OUTSIDE RECORDS SUMMARY | 2024-08-08 16:05 | XMS_ITS | Encounter Summary ---
Author Organization [facility] Facility Care Team Providers Care Payroll Auditor Name Role Phone Lazarus Albert MD Primary Care Provider [phone] Encounter Details Date Type Department Care Team (Latest Contact Info) Description 10/07/2019 Travel Social History Tobacco Use Types Packs/Day Years Used Date Smoking Tobacco: Former Cigarettes 2 12 E-cigarettes Smokeless Tobacco: Never Alcohol Use Standard Drinks/Week Comments Not Currently 0 (1 standard drink = 0.6 oz pur e alcohol) rarely Comments Unknown Sex and Gender Information Value Date Recorded Sex Assigned at Not on file 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 Gender Identity Not on file Sexual Orientation Not on file documented as of this encounter Plan of Treatment Not on file documented as of this encounter Visit Diagnoses Not on filedocumented in this encounter Additional Health Concerns Infection Onset Date Last Indicated Resolved Time 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
--- OUTSIDE RECORDS SUMMARY | 2024-08-08 16:05 | XMS_ITS | Encounter Summary ---
Author Organization [facility] Healthcare Address [address] [place] [address] Care Team Providers Care Leather Carver Name Role Phone Mook Koch MD Primary Care Provi franky Reason for Visit * Reason Comments Abdominal Pain Post-op Problem Encounter Details Date Type Department Care Team (Late st Contact Info) Description 09/18/2019 11:06 PM EMAIL CAMPAIGN SPECIALIST - 09/19/2019 1:43 AM EMAIL CAMPAIGN SPECIALIST Emergency [facility] Emergency Department [address] [place] [address] Daniel Aguayo MD [address] [place] [address] Abdominal pain, unspecified abdominal location (Primary Dx); Wound drainage Discharge Disposition: Discharge to home or self care Social History Tobacco Use Types Packs/Day Years Used Date Smoking Tobacco: Never Assessed Alcohol Use Standard Drinks/Week Comments No 0 (1 standard drink = 0.6 oz pur e alcohol) Comments Unknown Sex and Gender Information Value Date Recorded Sex Assigned at Not on file Legal Sex Female 5:42 AM EMAIL CAMPAIGN SPECIALIST Gender Identity Not on file Sexual Orientation Not on file documented as of this encounter Last Filed Vital Signs Vital Sign Reading Time Taken Comments Blood Pressure 148/76 09/19/2019 1:30 AM EMAIL CAMPAIGN SPECIALIST Pulse 59 09/19/2019 1:30 AM EMAIL CAMPAIGN SPECIALIST Temperature 36.6 ??C (97.9 ??F) 09/18/2019 5:56 PM CS T Respiratory Rate 16 09/18/2019 5:56 PM EMAIL CAMPAIGN SPECIALIST Oxygen Saturation 95% 09/19/2019 1:30 AM EMAIL CAMPAIGN SPECIALIST Inhaled Oxygen Concentration - - Weight - - Height - - Body Mass Index - - documented in this encounter Discharge Diagnoses Diagnosis Disruption of wound, unspecified, initial encounter - DISRUPTION OF WOUND, UNSPECIFIED, INITIAL ENCOUNTER Unspecified abdominal pain - UNSPECIFIED ABDOMINAL PAIN Colostomy status ([facility] ([facility]) - COLOSTOMY STATUS Colostomy status Endometriosis, unspecified - ENDOMETRIOSIS, UNSPECIFIED Anxiety disorder, unspecified - ANXIETY DISORDER, UNSPECIFIED Personal history of other venous thrombosis and embolism - PERSONAL HISTORY OF OTHER VENOUS THROMBOSIS AND EMBOLISM Acquired absence of both cervix and uterus - ACQUIRED ABSENCE OF BOTH CERVIX AND UTERUS Family history of ischemic heart disease and other diseases of the circulatory system - FAMILY HISTORY OF ISCHEMIC HEART DISEASE AND OTHER DISEASES OF THE CIRCULATORY SYSTEM Unspecified place or not applicable - UNSPECIFIED PLACE OR NOT APPLICABLE Activity, unspecified - ACTIVITY, UNSPECIFIED Other specified events, undetermined intent, initial encounter - OTHER SPECIFIED EVENTS, UNDETERMINED INTENT, INITIAL ENCOUNTER documented in this encounter Discharge Instructions * Discharge Instructions* Omi Parkinson MD - 09/19/2019 1:21 AM EMAIL CAMPAIGN SPECIALIST Please return to the nearest ER immediately if you have any worsening fevers, chills, chest pain, shortness of breath, especially abdominal pain, nausea, vomiting, rectal bleeding or other concerningsigns or symptoms as you may have an emergency medical condition necessitating additional management and possible inpatient admission. Please follow up with the wound care team as discussed . It is important to follow up with them in 1 weeks as discussed. Please call us if you have any questions or if you have trouble obtaining the follow up above within the prescribed timeframe: [facility] ER - [phone] You may receive a call from one of our facilities to see how you are doing over the next week or ifyou have any updated results (lab or imaging) and it will likely show up as a [phone] area code number you may not recognize. Please ensure you are able to be contacted. Please take your medications as prescribed. You may also take miralaax to help prevent constipationthat may be caused by oxycodone L CAMPAIGN SPECIALIST * Attachments The following attachments cannot be sent through Care Everywhere. * Wound Care ([place] Citizen) documented in this encounter Medications at Time [...] 17 g by mouth daily with lunch amoxicillin-clavul anate (AUGMENTIN) 875-125 mg per tabletIndications: Skin/Soft Tissue Infection Take 1 tablet by mouth 2 (two) times a day for 10 days 20 tablet 09/19/2019 0 calcium carbonate-vitamin D3 500 mg(1,250mg) -400 unit chewable tabletIndications: Vitamin D Deficiency Take 1 tablet by mouth every morning 1 cholecalciferol (VITAMIN D-3) 2000 unit capsule 2,000 Units 0 clonazePAM (KlonoPIN) 1 mg tabletIndications: Panic Disorder Take 1 mg by mouth 2 (two) times a day 09/09/2019 1 cyanocobalamin (Vitamin B-12) 100 mcg tabletIndications: Prevention of Vitamin B12 Deficiency Take 1,000 mcg by mouth every morning 1 ferrous fumarate 325 mg (106 mg iron) tabletIndications: Iron Deficiency Anemia Take 106 mg of elemental iron by mouth daily with dinner 1 fluticasone (VERAMYST) 27.5 mcg/actuation nasal sprayIndications:A llergic Rhinitis Administer 2 sprays into each nostril once daily 0 folic acid (FOLVITE) 1 mg tabletIndications: Folate Deficiency Take 1 mg by mouth daily with dinner 1 levocetirizine (XYZAL) 5 mg tablet Take 5 mg by mouth daily with lunch 1 NICOTROL 10 mg inhaler 08/31/2019 0 ondansetron (ZOFRAN) 4 mg tablet Take 4 mg by mouth every 8 (eight) hours as needed for nausea or vomiting 0 orphenadrine ER (NORFLEX) 100 mg 12 hr tabletIndications: Muscle Spasm Take 100 mg by mouth 2 (two) times a day 0 oxyCODONE (ROXICODONE) 5 mg immediate release tabletIndications: Pain Take 1 tablet (5 mg total) by mouth every 8 (eight) hours as needed for pain 10 tablet 09/19/2019 0 pantoprazole (PROTONIX) 40 mg injection 0 polyethylene glycol (Miralax) 17 gram/dose powderIndications: constipation Take 17 g by mouth daily Mix 1 scoop (17g) in 8oz of water and drink daily. 255 g 09/19/2019 0 rivaroxaban (XARELTO) 20 mg tabletIndications: Venous Thrombosis Take 20 mg by mouth daily with dinner 0 tamsulosin (FLOMAX) 0.4 mg extended release capsule tamsulosin 0.4 mg capsule TAKE 1 CAPSULE BY MOUTH EVERY DAY 05/10/2015 1 traZODone (DESYREL) 150 mg tablet Take 150 mg by mouth nightly 1 documented as of this encounter Ordered Prescriptions Prescription Sig Dispense Quantity Refills Last Filled Start Date End Date polyethylene glycol (Miralax) 17 gram/dose powderIndications: constipation Take 17 g by mouth daily Mix 1 scoop (17g) in 8oz of water and drink daily. 255 g 09/19/2019 04/28/2020 oxyCODONE (ROXICODONE) 5 mg immediate release tabletIndications: Pain Take 1 tablet (5 mg total) by mouth every 8 (eight) hours as needed for pain 10 tablet 09/19/2019 02/06/2020 amoxicillin-clavul anate (AUGMENTIN) 875-125 mg per tabletIndications: Skin/Soft Tissue Infection Take 1 tablet by mouth 2 (two) times a day for 10 days 20 tablet 09/19/2019 09/29/2019 documented in this encounter Discharge Disposition Disposition Code Departure Means Destination Discharge to home or self care documented in this encounter ED Notes * Daniel Agauyo MD - 09/18/2019 11:43 PM CST HPI Chief Complaint Patient presents with ??? Abdominal Pain ??? Post-op Problem Madison Weinberg is a 53 y.o. female with a PMH of abdominal surgery presenting with abdominal pain. Patient states back 27 years ago, she had a colostomy due to endometritis around the colon. Patient was doing well until 2016 when she had a revision of the colostomy. Patient states she has had se veral surgery during that time for obstructions secondary to scar tissue build up. Patient noticed in April she had a wound that had purulent drainage in her suprapubic region. No urinary or fecal output. Went to her surgeon who did not think it was infected. Has not been on abx for it. Patientstates she comes in today for abdominal pain and for opinion regarding the purulent drainage that has not resolved. Moved here from [place] Smoke: Denies Alcohol: Denies Drug: Denies Patient History Patient Active Problem List Diagnosis Date Noted ??? Endometriosis 12/26/2013 Class: Chronic ??? 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 Anxiety state 12/26/2013 Class: Chronic ??? Acute cerebrovascular insufficiency 12/26/2013 Class: Chronic Past Medical History: Diagnosis Date ??? Anxiety disorder Anxiety ??? DVT (deep venous thrombosis) (CMS/HCC) ??? HX OTHER MEDICAL Endometriosis-21 times ??? 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 HX OTHER MEDICAL colon blockage ??? [...] Social History Tobacco Use ??? Smoking status: Not on file Substance Use Topics ??? Alcohol use: No ??? Drug use: Not on file Social History Patient does not qualify to have social determinant information on file (likely too young). Social History Narrative ??? Not on file Review of Systems Review of systems: Denies fevers. All others negative except as mentioned in the HPI Physical Exam ED Triage Vitals [09/18/19 9096] Temp Pulse Resp BP SpO2 36.6 ??C (97.9 ??F) 95 16 126/76 98 % Temp src Heart Rate Source Patient Position BP Location FiO2 (%) Oral -- -- -- -- Physical Exam Constitutional: No acute distress HENT: Head: Normocephalic and atraumatic. Eyes: Conjunctivae are normal. PERRL. No scleral icterus. Cardiovascular: Normal rate and regular rhythm. No murmur heard. Pulmonary: Clear to auscultation b/l. No respiratory distress. Abdominal: Soft, non-tender, non-distended Musculoskeletal: Normal ROM of extremities. No edema. Neurological: Awake, alert, motor/sensory grossly intact. Skin: Skin is warm and dry. Surgical scars. There is a small 1cm wound with purulent drainage over the suprapubic region Psychiatric: Behavior is normal. Thought content normal. Nursing note and vitals reviewed. KYA Weinberg is a 53 y.o. female presenting with abdominal pain. Differential includes gastritis vs enteritis vs bowel obstruction vs malrotation vs ischemia vs abscess. Will get basic labs, treat pain, get CT abd/pelvis. Possible surgery consult based on work up. Will reassess. Strict return precautions were discussed with patient/family. Questions were answered. Patient/family expressed verbal understanding and agreement with plan. ED Course as of Sep 19 131 Time: 09/19 13 Comment: Will repeat morphine and PO challenge By: Omi Nolasco MD Time: 09/19 117 Comment: Patient tolerated PO. States pain is better controlled and she is able to go home. Will d/c with augmentin for wound, oxy for pain control, and information for the wound clinic By: Omi Nolasco MD Abdominal pain, unspecified abdominal location ATTENDING ATTESTATION I have seen and examined the patient on 09/18/2019 . I agree with the findings and plan of care as documented in the resident's note. Patient is a 53-year-old female with history of endometriosis with adhesions causing small bowel obstruction. Patient with multiple SBO in the past. Patient here with abdominal pain and left upper quadrant that feels like she is having pulling from an adhesion. Patient also has a nonhealing wound from prior surgical scar. Patient has been on antibiotics for this in the past with purulence discharge today. Patient currently not on antibiotics and has not recall which he is on prior. CT scan negative for intra-abdominal infection or small-bowel obstruction. Plan for follow-up with [facility] and antibiotics for wound care along with culture. Daniel Aguayo MD 09/19/19 0136 L CAMPAIGN SPECIALIST * Obdulio Green RN - 09/18/2019 11:06 PM CST Bed: [facility] Expected date: Expected time: Means of arrival: Car Comments: Obdulio Green RN 09/18/19 6118 L CAMPAIGN SPECIALIST * Harper Vargas RN - 09/18/2019 6:00 PM CST Pt to ED for abdominal pain and post op wound with increasing pain and purulent drainage. Hx of bowel obstruction and surgery x 5 for subsequent obstructions and infections. Possible abdominal abscess? Per pt, last surgery was in November. In April had wound infection and dehiscence. Has since been packing the wound, but states is no longer able to pack it. Tiny wound noted to lower abd with small amount of purulent drainage. C/o L sided abd pain and 'pulling' sensation for several weeks. Recently moved here in July, all care was in [place]. C/o not having BM x 2 days and nausea, poor appetite. C/o feeling similar as with previous blockages. L CAMPAIGN SPECIALIST documented in this encounter Plan of Treatment Not on file documented as of this encounter Procedures Procedure Name Priority Date/Time Associated Diagnosis Comments AEROBIC AND ANAEROBIC CULTURE AND GRAM STAIN Routine 09/19/2019 1:12 AM [address]IL CAMPAIGN [address] ABDOMEN PELVIS W CONTRAST ED 09/18/2019 9:51 PM EMAIL CAMPAIGN SPECIALIST LACTATE STAT 09/18/2019 8:15 PM EMAIL CAMPAIGN SPECIALIST DIFFERENTIAL AUTO STAT 09/18/2019 8:1 5 PM EMAIL CAMPAIGN SPECIALIST CBC WITH AUTO DIFFERENTIAL STAT 09/18/2019 8:15 PM EMAIL CAMPAIGN SPECIALIST LIPASE STAT 09/18/2019 8:15 PM EMAIL CAMPAIGN SPECIALIST HEPATIC FUNCTION PANEL STAT 09/18/2019 8:15 PM EMAIL CAMPAIGN SPECIALIST BASIC METABOLIC PANEL STAT 09/18/2019 8:15 PM EMAIL CAMPAIGN SPECIALIST documented in this encounter Results * (ABNORMAL) Aerobic and anaerobic culture and gram stain Abscess Abdominal (09/19/2019 1:12 AM EMAIL CAMPAIGN SPECIALIST) Direct Specimen Exam Stain: Few polymorphonuclear leukocytes seen. No organisms seen. [facility] Report Final Report: Few Mixed microorganisms. Includes the following: Few Staphylococcus aureus Methicillin resistant (MRSA) by penicillin binding protein 2a (PBP2a) testing. Few Staphylococcus aureus #2 Methicillin resistant (MRSA) by penicillin binding protein 2a (PBP2a) testing. (.) [facility] Organism STAPHYLOCOCCUS AUREUS [facility]NOTE 3] Organism [facility] Organism MIXED MICROORGANISMS. [facility] Abscess (Abdominal) 09/19/2019 1:12 AM EMAIL CAMPAIGN SPECIALIST 09/19/2019 1:18 AM EMAIL CAMPAIGN SPECIALIST Narrative [facility] - 09/22/2019 11:53 AM EMAIL CAMPAIGN SPECIALIST THE [facility] COLLECTION LOCATION IS [facility] [id number] Specimen received on an ESwab. Testing performed by [facility] ([phone]) Specimens submitted from normally sterile body sites will have all bacterial morphotypes identified. ??Specimens that contain grossly mixed ashwini and/or are from body sites that are not normally sterile will be examined for Staphylococcus aureus, Pseudomonas aeruginosa, beta-hemolytic strep, vancomycin-resistant Enterococcus, Bacteroides fragilis, Clostridium perfringens and fungus. ??If any of these are isolated, the organism will be reported. Current interpretive data was last revised on 2017. Organism Antibiotic Method Susceptibility Staphylococcus aureus Vancomycin INTERPRETATION Susceptible Staphylococcus aureus Ceftaroline INTERPRETATION Susceptible Staphylococcus aureus Trimethoprim with Sulfamethoxazole INTERPRETATION Susceptible Staphylococcus aureus Linezolid INTERPRETATION Susceptible Staphylococcus aureus Doxycycline INTERPRETATION Intermediate Staphylococcus aureus Clindamycin INTERPRETATION Susceptible Staphylococcus aureus Erythromycin INTERPRETATION Susceptible Staphylococcus aureus Oxacillin INTERPRETATION Resistant Staphylococcus aureus Cefazolin INTERPRETATION Resistant Staphylococcus aureus Ceftriaxone INTERPRETATION Resistant Staphylococcus aureus Vancomycin INTERPRETATION Susceptible Staphylococcus aureus Ceftaroline INTERPRETATION Susceptible Staphylococcus aureus Trimethoprim with Sulfamethoxazole INTERPRETATION Susceptible Staphylococcus aureus Linezolid INTERPRETATION Susceptible Staphylococcus aureus Doxycycline INTERPRETATION Intermediate Staphylococcus aureus Clindamycin INTERPRETATION Susceptible Staphylococcus aureus Erythromycin INTERPRETATION Susceptible Staphylococcus aureus Oxacillin INTERPRETATION Resistant Staphylococcus aureus Cefazolin INTERPRETATION Resistant Staphylococcus aureus Ceftriaxone INTERPRETATION Resistant Omi Nolasco MD LAB MICROBIOLOGY - GENERAL OR DERABLES Final Result [facility] Department [place] [address] * CT Abdomen Pelvis W Contrast (09/18/2019 9:51 PM EMAIL CAMPAIGN SPECIALIST) Anatomical Region Laterality Modality Body N/A Computed Tomogra phy 09/18/2019 10:2 9 PM EMAIL CAMPAIGN SPECIALIST Impressions 09/19/2019 9:04 AM EMAIL CAMPAIGN SPECIALIST 1. Midline incision wound with inflammatory changes. Soft tissue attenuation in this region may represent granulation tissue. No drainable fluid collection. 2. Postsurgical changes of small and large bowel resections. No evidence of bowel obstruction. 3. Bilateral nonobstructing nephrolithiasis. Dictated by: Barak Black M.D. The radiology attending physician has personally reviewed this study, and had reviewed and/or edited this written report and agrees with it. Electronically signed by: Gerson Lares M.D. Narrative 09/19/2019 9:04 AM EMAIL CAMPAIGN SPECIALIST EXAMINATION: ??Computed tomography of the abdomen and pelvis with intravenous contrast HISTORY: 53-year-old woman with abdominal pain and purulent drainage from abdominal wound. Patient has history of bowel obstructions with multiple surgeries. Patient reports last surgery was in November complicated by wound infection and dehiscence in April. TECHNIQUE: ??Transaxial computed tomographic images of the abdomen and pelvis were obtained with intravenous contrast according to the standard protocol after the uneventful administration of 100 mL Opti-Ray 350 intravenous contrast. COMPARISON: 04/21/2010 FINDINGS: Limited images of the lung bases are clear. Heart is normal in size without pericardial effusion. The liver, gallbladder, spleen, pancreas, and adrenal glands are normal. There are bilateral nonobstructing renal calculi which are tiny on the right and measure up to 1 cm in the lower pole on the left. No hydronephrosis the bladder is normal. The uterus is surgically absent. No adnexal mass. There are postsurgical changes of multiple small bowel resections with anastomotic suture line seen in the left lower quadrant. There are postoperative changes of left hemicolectomy and reanastomosis. There is no bowel wall thickening or obstruction. A midline abdominal skin wound is seen with subcutaneous fat stranding and soft tissue attenuation compatible with a history of draining abdominal wound. There is no drainable fluid collection. There is no abdominal or pelvic lymphadenopathy or free fluid. Atherosclerotic calcification is noted in nonaneurysmal abdominal aorta. Bone windows demonstrate no suspicious lytic or blastic lesions. Procedure Note Gerson Lares MD - 09/19/2019 EXAMINATION: Computed tomography of the abdomen and pelvis with intravenous contrast HISTORY: 53-year-old woman with abdominal pain and purulent drainage from abdominal wound. Patient has history of bowel obstructions with multiple surgeries. Patient reports last surgery was in November complicated by wound infection and dehiscence in April. TECHNIQUE: Transaxial computed tomographic images of the abdomen and pelvis were obtained with intravenous contrast according to the standard protocol after the uneventful administration of 100 mL Opti-Ray 350 intravenous contrast. COMPARISON: 04/21/2010 FINDINGS: Limited images of the lung bases are clear. Heart is normal in size without pericardial effusion. The liver, gallbladder, spleen, pancreas, and adrenal glands are normal. There are bilateral nonobstructing renal calculi which are tiny on the right and measure up to 1 cm in the lower pole on the left. No hydronephrosis the bladder is normal. The uterus is surgically absent. No adnexal mass. There are postsurgical changes of multiple small bowel resections with anastomotic suture line seen in the left lower quadrant. There are postoperative changes of left hemicolectomy and reanastomosis. There is no bowel wall thickening or obstruction. A midline abdominal skin wound is seen with subcutaneous fat stranding and soft tissue attenuation compatible with a history of draining abdominal wound. There is no drainable fluid collection. There is no abdominal or pelvic lymphadenopathy or free fluid. Atherosclerotic calcification is noted in nonaneurysmal abdominal aorta. Bone windows demonstrate no suspicious lytic or blastic lesions. IMPRESSION: 1. Midline incision wound with inflammatory changes. Soft tissue attenuation in this region may represent granulation tissue. No drainable fluid collection. 2. Postsurgical changes of small and large bowel resections. No evidence of bowel obstruction. 3. Bilateral nonobstructing nephrolithiasis. Dictated by: Barak Black M.D. The radiology attending physician has personally reviewed this study, and had reviewed and/or edited this written report and agrees with it. Electronically signed by: Gerson Lares M.D. Cali Quan MD [facility] [place] PROCEDURES Final R esult * Differential, auto (09/18/2019 8:15 PM EMAIL CAMPAIGN SPECIALIST) Neutrophil abs 4.1 1.7 - 6.5 K/cumm [facility] Imm gran abs 0.0 0.0 - 0.1 K/cumm [facility] Lymphocyte abs 2.2 0.8 - 3.3 K/cumm [facility] Monocyte abs 0.5 0.2 - 0.8 K/cumm [facility] Eosinophil abs 0.1 0.0 - 0.5 K/cumm [facility] Basophil abs 0.1 0.0 - 0.1 K/cumm [facility] Neutrophil pct 58.6 % [facility] Comment: Interpretive Data Percent cell count reference ranges are not reported, since discordance with absolute values may lead to misinterpretation of CBC data. Current Interpretive Data was last revised on 2017. Imm gran pct 0.4 % [facility] Comment: Interpretive Data Percent cell count reference ranges are not reported, since discordance with absolute values may lead to misinterpretation of CBC data. Current Interpretive Data was last revised on 2017. Lymphocyte pct 32.1 % [facility] Comment: Interpretive Data Percent cell count reference ranges are not reported, since discordance with absolute values may lead to misinterpretation of CBC data. Current Interpretive Data was last revised on 2017. Monocyte pct 6.6 % [facility] Comment: Interpretive Data Percent cell count reference ranges are not reported, since discordance with absolute values may lead to misinterpretation of CBC data. Current Interpretive Data was last revised on 2017. Eosinophil pct 1.4 % [facility] Comment: Interpretive Data Percent cell count reference ranges are not reported, since discordance with absolute values may lead to misinterpretation of CBC data. Current Interpretive Data was last revised on 2017. Basophil pct 0.9 % [facility] Comment: Interpretive Data Percent cell count reference ranges are not reported, since discordance with absolute values may lead to misinterpretation of CBC data. Current Interpretive Data was last revised on 2017. Blood specimen (specimen) 09/18/2019 8:15 PM EMAIL CAMPAIGN SPECIALIST 09/18/2019 8:29 PM EMAIL CAMPAIGN SPECIALIST us Daniel Aguayo MD LAB BLOOD ORDERABLES Final Result [facility] Department [place] [address] * Lactate (09/18/2019 8:15 PM EMAIL CAMPAIGN SPECIALIST) Lactate 1.3 0.7 - 2.0 mmol/L [facility] Blood specimen (specimen) 09/18/2019 8:15 PM EMAIL CAMPAIGN SPECIALIST 09/18/2019 8:29 PM EMAIL CAMPAIGN SPECIALIST Narrative [facility] - 09/18/2019 8:53 PM EMAIL CAMPAIGN SPECIALIST [facility] COLLECTION LOCATION IS Cali Quan MD LAB BLOOD ORDERABLES Moraima l Result Performing Organization Address [facility] [address]/ZIP Co de Phone Number [facility] [place] [address] * Hepatic function panel (09/18/2019 8:15 PM EMAIL CAMPAIGN SPECIALIST) Bilirubin, total 0.2 0.1 - 1.2 mg/dL [facility] Bilirubin, direct <0.2 0.1 - 0.3 mg/dL [facility] Protein, pl 8.1 6.5 - 8.5 g/dL [facility] Albumin 4.6 3.5 - 5.0 g/dL [facility] Alk phos 104 40 - 130 Units/L [facility]NOTE 3[facility] ALT 15 7 - 45 Units/L [facility] AST 20 10 - 45 Units/L [facility] Blood specimen (specimen) (Blood, Venous) 09/18/2019 8:15 PM EMAIL CAMPAIGN SPECIALIST 09/18/2019 8:29 PM EMAIL CAMPAIGN SPECIALIST Narrative [facility] - 09/18/2019 8:54 PM EMAIL CAMPAIGN SPECIALIST THE COLLECTION LOCATION IS Daniel Aguayo MD LAB BLOOD ORDERABLES Final Result Performing Organization Address [facility] [address]/[facility] Co de Phone Number [facility] Department [place] [address] * Lipase (09/18/2019 8:15 PM EMAIL CAMPAIGN SPECIALIST) Lipase 22 10 - 99 Units/L [facility] Blood specimen (specimen) (Blood, Venous) 09/18/2019 8:15 PM EMAIL CAMPAIGN SPECIALIST 09/18/2019 8:29 PM EMAIL CAMPAIGN SPECIALIST Narrative [facility] - 09/18/2019 8:54 PM EMAIL CAMPAIGN SPECIALIST THE COLLECTION LOCATION IS Daniel Aguayo MD LAB BLOOD ORDERABLES Final Result Performing Organization Address City/[facility] [address]/ZIP Co de Phone Number [facility] Department [place] [address] * (ABNORMAL) Basic metabolic panel (09/18/2019 8:15 PM EMAIL CAMPAIGN SPECIALIST) [facility] Sodium 140 135 - 145 mmol/L [facility] Potassium, pl 3.7 3.3 - 4.9 mmol/L [facility] Chloride 105 97 - 110 mmol/L [facility] CO2 25 22 - 32 mmol/L [facility] Anion gap 10 2 - 15 mmol/L [facility] BUN 6(L) 8 - 25 mg/dL [facility] Creatinine 0.80 0.60 - 1.10 mg/dL [facility] Glucose 87 70 - 199 mg/dL [facility] Comment: Interpretive Data Fasting glucose >/= 126 [...] interpretive data was last revised 2017. Calcium 9.7 8.5 - 10.3 mg/dL [facility] Blood specimen (specimen) 09/18/2019 8:15 PM EMAIL CAMPAIGN SPECIALIST 09/18/2019 8:29 PM EMAIL CAMPAIGN SPECIALIST Narrative [facility] - 09/18/2019 8:54 PM EMAIL CAMPAIGN SPECIALIST THE COLLECTION LOCATION IS us Daniel Aguayo MD LAB BLOOD ORDERABLES Final Result [facility] Department [place] [address] * (ABNORMAL) CBC with auto differential (09/18/2019 8:15 PM EMAIL CAMPAIGN SPECIALIST) [facility] WBC 7.0 3.8 - 9.9 K/cumm [facility] Hgb 12.0 11.9 - 15.5 g/dL [facility] Hct 38.0 35.6 - 45.5 % [facility] Plt 355 150 - 400 K/cumm [facility] MPV 9.7 9.1 - 12.3 fL [facility] RBC 4.09 3.90 - 5.20 M/cumm [facility] MCV 92.9 81.3 - 96.4 fL [facility] MCH 29.3 27.1 - 33.3 pg [facility] MCHC 31.6(L) 32.3 - 35.7 g/dL [facility] RDW CV 14.1 11.1 - 14.9 % [facility] RDW SD 48.0 35.7 - 48.1 fL [facility] NRBC abs 0.00 0.00 - 0.01 K/cumm [facility] Blood specimen (specimen) (Blood, Venous) 09/18/2019 8:15 PM EMAIL CAMPAIGN SPECIALIST 09/18/2019 8:29 PM EMAIL CAMPAIGN SPECIALIST Narrative [facility] - 09/18/2019 8:36 PM EMAIL CAMPAIGN SPECIALIST THE COLLECTION LOCATION IS us Daniel Aguayo MD LAB BLOOD ORDERABLES Final Result Performing Organization Address City/State/[facility] Co de Phone Number [facility] Department [place] [address] documented in this encounter Visit Diagnoses Diagnosis Abdominal pain, unspecified abdominal location- Primary Wound drainage documented in this encounter Administered Medications Inactive Administered Medications - up to 3 most recent administrations Medication Order MAR Action Action Date Dose Rate Site morphine injection 4 mg 4 mg, intravenous, Administer over 4 Minutes, Once, On Sat09/18/19 at 2020, For 1 dose Given 09/18/2019 8:24 PM EMAIL CAMPAIGN SPECIALIST 4 mg morphine injection 4 mg 4 mg, intravenous, Administer over 4 Minutes, Once, On Sat09/19/19 at 0015, For 1 dose Given 09/19/2019 12:29 AM EMAIL CAMPAIGN SPECIALIST 4 mg ondansetron (ZOFRAN) injection 4 mg 4 mg, intravenous, Administer over 2 Minutes, Once, On Sat09/18/19 at 2020, For 1 dose Given 09/18/2019 8:25 PM EMAIL CAMPAIGN SPECIALIST 4 mg oxyCODONE (ROXICODONE) tablet 10 mg 10 mg, oral, Once, On 09/19/19 at 0052, For 1 dose, Indications: PainIndications:Pain Given 09/19/2019 1:10 AM EMAIL CAMPAIGN SPECIALIST 10 mg documented in this encounter Historical Medications * This list may reflect changes made after this encounter. docusate sodium (COLACE) 100 mg capsuleIndications :constipation Take 100 mg by mouth daily polyethylene glycol (MIRALAX) 17 gram packetIndications: constipation Take 17 g by mouth daily with lunch alendronate (FOSAMAX) 70 mg tabletIndications: Post-Menopausal Osteoporosis Take 70 mg by mouth every 7 days Take in the morning with a full glass of water, on an empty stomach, and do not take anything else by mouth or lie down for the next 30 min. saturday dicyclomine (BENTYL) 10 mg capsuleIndications :Irritable Bowel Syndrome Take 10 mg by mouth 3 (three) times a day 08/30/2019 clotrimazole-betam ethasone (LOTRISONE) cream Apply 1 application topically daily 09/09/2019 cyanocobalamin (Vitamin B-12) 100 mcg tabletIndications: Prevention of Vitamin B12 Deficiency Take 1,000 mcg by mouth every morning 1 folic acid (FOLVITE) 1 mg tabletIndications: Folate Deficiency Take 1 mg by mouth daily with dinner 1 levocetirizine (XYZAL) 5 mg tablet Take 5 mg by mouth daily with lunch 1 traZODone (DESYREL) 150 mg tablet Take 150 mg by mouth nightly 1 rivaroxaban (XARELTO) 20 mg tabletIndications: Venous Thrombosis Take 20 mg by mouth daily with dinner 0 calcium carbonate-vitamin D3 500 mg(1,250mg) -400 unit chewable tabletIndications: Vitamin D Deficiency Take 1 tablet by mouth every morning 1 orphenadrine ER (NORFLEX) 100 mg 12 hr tabletIndications: Muscle Spasm Take 100 mg by mouth 2 (two) times a day 0 cholecalciferol (VITAMIN D-3) 2000 unit capsule 2,000 Units 0 pantoprazole (PROTONIX) 40 mg injection 0 ferrous fumarate 325 mg (106 mg iron) tabletIndications: Iron Deficiency Anemia Take 106 mg of elemental iron by mouth daily with dinner 1 ondansetron (ZOFRAN) 4 mg tablet Take 4 mg by mouth every 8 (eight) hours as needed for nausea or vomiting 0 fluticasone (VERAMYST) 27.5 mcg/actuation nasal sprayIndications:A llergic Rhinitis Administer 2 sprays into each nostril once daily 0 clonazePAM (KlonoPIN) 1 mg tabletIndications: Panic Disorder Take 1 mg by mouth 2 (two) times a day 09/09/2019 1 NICOTROL 10 mg inhaler 08/31/2019 0 added in this encounter Active and Recently Administered Medications Times are shown in EMAIL CAMPAIGN SPECIALIST. Scheduled Medication Order 09/17/2019 09/18/2019 09/19/2019 morphine injection 4 mg (COMPLETED) 4 mg, intravenous, Administer over 4 Minutes, Once, On 09/18/19 at 2020, For 1 dose 2023 (Given - Provider: Harper Vargas, KAT - Comment: end time 2025) morphine injection 4 mg (COMPLETED) 4 mg, intravenous, Administer over 4 Minutes, Once, On 09/19/19 at 001, For 1 dose 28 (Given - Provid er: Shantanu Thompson, KAT - Comment: stop time 32) ondansetron (ZOFRAN) injection 4 mg (COMPLETED) 4 mg, intravenous, Administer over 2 Minutes, Once, On 09/18/19 at 2020, For 1 dose 2024 (Given - Provider: Harper Vargas, KAT - Comment: end time 2027) oxyCODONE (ROXICODONE) tablet 10 mg (COMPLETED) 10 mg, oral, Once, On 09/19/19 at 0052, For 1 dose, Indications: Pain 0110 (Given - Provid er: Shantanu Thompson, RN) documented in this encounter Orders Nursing Count Last Ordered Date First Orde red Date NURSING COMMUNICATION 1 09/19/2019 MISCELLANEOUS NURSING CARE ORDER (SPECIFY) 1 09/18/2019 IV Count Last Ordered Date First Orde red Date SALINE LOCK IV 1 09/18/2019 documented in this encounter Care Teams Leather Carver Relationship Specialty Start Date End Date Mook Koch MD PCP - General 12/23/07 09/24/19 documented as of this encounter
--- OUTSIDE RECORDS SUMMARY | 2024-08-08 16:05 | XMS_ITS | Encounter Summary ---
Author Organization [facility] Address [address] [place] [address] Phone Care Team Providers Care Installer Helper Name Role Phone Lazarus Albert MD Primary Care Provider [phone] Encounter Details Date Type Department Care Team (Late st Contact Info) Description 04/06/2020 1:30 PM CDT Office Visit [facility] Surgery [address] [facility] 8th [place] [address] [place] [phone] Ari Partida MD [address] [facility] [place] [phone] [place] [address] Infected hernioplasty mesh, subsequent encounter (Primary Dx); Abdominal pain Social History Tobacco Use Types Packs/Day Years Used Date Smoking Tobacco: Former Cigarettes 2 26.6 1 982 - 03/19/2008 E-cigarettes Smokeless Tobacco: Never Alcohol Use Standard Drinks/Week Comments Yes 0 (1 standard drink = 0.6 oz pur e alcohol) rarely Comments No Sex and Gender Information Value Date Recorded Sex Assigned at Not on file Legal Sex Female 5:42 AM STEREO EQUIPMENT SALESPERSON Gender Identity Not on file Sexual Orientation Not on file documented as of this encounter Last Filed Vital Signs Vital Sign Reading Time Taken Comments Blood Pressure 121/86 04/06/2020 2:02 PM CDT Pulse 106 04/06/2020 2:02 PM CDT Temperature 37.5 ??C (99.5 ??F) 04/06/2020 2:02 PM CD T Respiratory Rate 16 04/06/2020 2:02 PM CDT Oxygen Saturation 97% 04/06/2020 2:02 PM CDT Inhaled Oxygen Concentration - - Weight 54.4 kg (120 lb) 04/06/2020 2:02 PM CDT Height 162.6 cm (5' 4 ) 04/06/2020 2:02 PM CDT Body Mass Index 20.6 04/06/2020 2:02 PM CDT documented in this encounter Progress Notes * Ari Partida MD - 04/06/2020 1:30 PM CDT Images from the original note were not included. [facility] CAM outpatient progress note DATE OF SERVICE: April 06 2020 Madison Weinberg [id number] Osvaldo Escobedo MD has requested that I see Madison Weinberg in clinic for evaluation of Abdominal pain and infection of the midline wound. Encounter Diagnoses Name Primary? Infected hernioplasty mesh, subsequent encounter Yes ??? Abdominal pain Chief complaint: Draining abdominal wall sinus History of Present Illness Ms. Weinberg is a 54 y.o. female here for evaluation of abdominal pain and draining lower midline wound. She has a complex medical history the started with surgery over 27 years ago endometriosis. Most recently she had multiple surgeries at the [facility] in [place]. She was seen there by Dr. Mehdi [...] Patient has chronic abdominal pain was unchanged Past Medical History Past Medical History: Diagnosis [...] date: 1981 Quit date: 03/19/2008 Years since quittin.1 ??? Smokeless tobacco: Never Used Substance and [...] file Gets together: Not on file Attends roman catholic service: Not on file Active member of [...] on file Allergies Allergies Allergen Reactions ??? Aspirin Hives ??? Codeine Hives ??? Duloxetine Mental status changes Reaction: CONFUSION, ??? Gabapentin Mental status changes ??? Paxil [Paroxetine] Mental status changes ??? Wellbutrin [Bupropion] Mental status changes ??? Zoloft [Sertraline] Mental status changes Medications No current facility-administered medications on file prior to visit. Current Outpatient Medications on File Prior to Visit Medication Sig Dispense Refill ??? alendronate (FOSAMAX) 70 mg tablet Take 70 mg by mouth every 7 days Take in the morning with a full glass of water, on an empty stomach, and do not take anything else by mouth or lie down for thenext 30 min. EVERY SATURDAY ??? calcium carbonate-vitamin D3 500 mg(1,250mg) -400 unit chewable tablet Take 1 tablet by mouth every morning ??? clonazePAM (KlonoPIN) 1 mg tablet Take 1 mg by mouth 2 (two) times a day ??? clotrimazole-betamethasone (LOTRISONE) cream Apply topically daily as needed ??? cyanocobalamin (Vitamin B-12) 100 mcg tablet Take 1,000 mcg by mouth every morning ??? dicyclomine (BENTYL) 10 mg capsule Take 10 mg by mouth 3 (three) times a day ??? docusate sodium (COLACE) 100 mg capsule Take 100 mg by mouth daily with lunch ??? ferrous fumarate 325 mg (106 mg [...] g by mouth daily with lunch ??? polyethylene glycol (Miralax) 17 gram/dose powder Take 17 g by mouth daily Mix 1 scoop (17g) in8oz of water and drink daily. 255 g 0 ??? rivaroxaban (XARELTO) 20 mg tablet Take 20 mg by mouth daily with dinner ??? traZODone (DESYREL) 150 mg tablet Take 150 mg by mouth nightly Review of Systems: General- no fevers, chills [...] Psych- No changes in mood Physical Exam: Ht:162.6 cm (5' 4 ) Wt:54.4 kg (120 lb) Body mass index is 20.6 kg/m??. BP 121/86 (BP Location: Right arm) Pulse 106 Temp 37.5 ??C (99.5 ??F) (Temporal) Resp 16 Ht162.6 cm (5' 4 ) Wt 54.4 kg (120 lb) SpO2 97% BMI 20.60 kg/m?? GENERAL- no acute distress, comfortable NEURO- alert and oriented PSYCH- Mood and affect appropriate HEENT- EOMs grossly normal, no scleral icterus, mucous membranes moist LYMPHATICS- no palpable lymphadenopathy CARDIAC- regular rate and rhythm RESP- nonlabored respirations GI- abdomen soft, nondistended, multiple scars including a midline an old healed ostomy site. At the lower portion of the wound there is a small opening this time without granulation tissue. There issome minimal tenderness in this area. This sinus tract is relatively shallow this time. There is no palpable hernia defect. Examination of wound remains unchanged. MSK- grossly normal range of motion EXTREMITIES- extremities warm and dry, no swelling INTEGUMENT skin warm and dry, Imaging: CT scan abdomen pelvis obtained closer to home within the past 2 months was reviewed. On the sagittal sections along with radiology we note a extra fascial mesh. There is no collection. There is no abscess cavity. The appears to be no hernia defect. Assessment and Plan: This patient has two discrete problems which I agree with as identified by Dr. Escobedo prior referral., these are abdominal pain and a infected abdominal wall mesh. The operative reports from the outside hospital were reviewed and the new operative note makes noteof a biologic onlay mesh. Patient continues to have a low-grade indolent infection with associated sinus tract is likely consistent this mesh. There are no palpable hernia defects on physical exam today nor on the CT scan that was repeated inthe past 2 months and is available for review. Her abdominal pain is chronic and likely will not resolve with the excision of the hernia mesh or reconstruction of the abdominal wall if this is incorporating the abdominal wall. She and her both understand that chronic abdominal pain will require pain management and will not be resolved by any attempts at mesh excision or sinus tract excision. I have offered the patient and her in discussion and exploration of the sinus tract with excision of the sinus tract. If the sinus tract least to a underlying mesh, the mesh will be excised as much as is possible that is unincorporated. If this involves part of the abdominal wall which may require reconstruction this may be done within underlay biologic mesh or synthetic mesh if she has compromise of for abdominal musculature. Consent was signed today, all risks and benefits were explained in detail Exploration of sinus tract with excision, possible exploration of the abdominal cavity with mesh excision and reconstruction. Patient require a bowel prep. Patient understands that chronic pain may be an ongoing issue despite proceeding with the above recommended therapy. Ari Partida MD documented in this encounter Plan of Treatment Not on file documented as of this encounter Visit Diagnoses Diagnosis Infected hernioplasty mesh, subsequent encounter- Primary Abdominal pain Abdominal pain, unspecified site documented in this encounter Additional Health Concerns Infection Onset Date Last Indicated Resolved Time 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, nares 04/22/20; 01/18/21; urine 01/14/21 09/19/2019 02/09/2021 10/10/2021 4:00 AM STEREO EQUIPMENT SALESPERSON documented as of this encounter Care Teams Installer Helper Relationship Specialty Start Date End Date Lazarus Albert MD [address] [facility] [place] [address] PCP - General 09/25/19 03/04/24 documented as of this encounter
--- OUTSIDE RECORDS SUMMARY | 2024-08-08 16:05 | XMS_ITS | Encounter Summary ---
Author Organization [facility] Address [address] [place] [address] Phone Care Team Providers Care Law Enforcement Instructor Name Role Phone Lazarus Albert MD Primary Care Provider [phone] Reason for Visit * Reason Onset Date Comments Returned Call 12/03/2019 Encounter Details Date Type Department Care Team (Late st Contact Info) Description 12/03/2019 Telephone [facility] Surgery [address] [facility] 8th [place] [address] [place] [address] Jinny Castro RMA Returned Call Social History Tobacco Use Types Packs/Day Years Used Date Smoking Tobacco: Former Cigarettes 2 12 E-cigarettes Smokeless Tobacco: Never Alcohol Use Standard Drinks/Week Comments Not Currently 0 (1 standard drink = 0.6 oz pur e alcohol) rarely Comments Unknown Sex and Gender Information Value Date Recorded Sex Assigned at Not on file Legal Sex Female 5:42 AM MANAGER COMPLIANCE Gender Identity Not on file Sexual Orientation Not on file documented as of this encounter Miscellaneous Notes * Telephone Encounter - Jinny Castro MA - 12/03/2019 11:52 AM CDT Returned call to patient. She was wondering if anything changed after speaking with our office on Saturday of last week. Unfortunately, no change at this time because of the Coronavirus. She has an appointment scheduled in January at this time. If appointments open up and we can schedule non-urgent appointments, I will call her and move her appointment sooner. She stated she understood. NELL Argueta documented in this encounter Plan of Treatment Not on file documented as of this encounter Visit Diagnoses Not on filedocumented in this encounter Additional Health Concerns Infection Onset Date Last Indicated Resolved Time 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, nares 04/22/20; 01/18/21; urine 01/14/21 09/19/2019 02/09/2021 10/10/2021 4:00 AM MANAGER COMPLIANCE documented as of this encounter Care Teams Law Enforcement Instructor Relationship Specialty Start Date End Date Lazarus Albert MD [address] [facility] [place] [address] PCP - General 09/25/19 03/04/24 documented as of this encounter
--- OUTSIDE RECORDS SUMMARY | 2024-08-08 16:05 | XMS_ITS | Encounter Summary ---
Author Organization [facility] Address [address] [place] [address] Phone Care Team Providers Care Reference Services Head Name Role Phone Lazarus Albert MD Primary Care Provider [phone] Reason for Visit * Reason Onset Date Comments SCREENING FOR TOMORROW'S APPOINTMENT 01/19/2020 Encounter Details Date Type Department Care Team (Late st Contact Info) Description 01/19/2020 Telephone [facility] Surgery [address] [facility] 8th [place] [address] [place] [address] Jinny Castro RMA SCREENING FOR TOMORROW'S APPOINTMENT Social History Tobacco Use Types Packs/Day Years Used Date Smoking Tobacco: Former Cigarettes 2 12 E-cigarettes Smokeless Tobacco: Never Alcohol Use Standard Drinks/Week Comments Not Currently 0 (1 standard drink = 0.6 oz pur e alcohol) rarely Comments Unknown Sex and Gender Information Value Date Recorded Sex Assigned at Not on file Legal Sex Female 5:42 AM MEDICAL PRACTICE ADMINISTRATOR Gender Identity Not on file Sexual Orientation Not on file documented as of this encounter Miscellaneous Notes * Telephone Encounter - Jinny Castro MA - 01/19/2020 12:14 PM CDT REVIEWED APPOINTMENT FOR TOMORROW??WITH??PATIENT.? REVIEWED ALL CORONAVIRUS QUESTIONS WITH PATIENT. SHE WAS ASKED IF SHE HAD BEEN IN CONTACT WITH ANYONE DIAGNOSED OR WITH SYMPTOMS OF CORONAVIRUS AND THE ANSWER WAS YES. SHE WAS MASKED AND HAD GLOVES ON. BOTH HER AND HER MOTHER HAVE BEEN TESTED ALSO, AND HAVE BEEN FOUND NEGATIVE. REVIEWED THAT SHE CAN HAVE ONE ADULT, OLDER THAN 19 YEARS OF AGE WITH HER AT THE APPOINTMENT. ??THEY WILL BE SCREENED ATTHE DOORS, I.E. TAKE TEMPERATURE, ETC. ?NELL HORVATH?? documented in this encounter Plan of Treatment Not on file documented as of this encounter Visit Diagnoses Not on filedocumented in this encounter Additional Health Concerns Infection Onset Date Last Indicated Resolved Time 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, nares 04/22/20; 01/18/21; urine 01/14/21 09/19/2019 02/09/2021 10/10/2021 4:00 AM MEDICAL PRACTICE ADMINISTRATOR documented as of this encounter Care Teams Reference Services Head Relationship Specialty Start Date End Date Lazarus Albert MD [address] [facility] [place] [address] PCP - General 09/25/19 03/04/24 documented as of this encounter
--- OUTSIDE RECORDS SUMMARY | 2024-08-08 16:05 | XMS_ITS | Encounter Summary ---
Author Organization [facility] Address [address] [place] [address] Care Team Providers Care Music Professionals Name Role Phone Mook Koch MD Primary Care Provi franky Encounter Details Date Type Department Care Team (Late st Contact Info) Description 03/27/2007 1:48 PM CDT - 03/27/2007 11:59 PM CDT Hospital Encounter [facility] Mook Koch MD [address] [place] [id number] Social History Tobacco Use Types Packs/Day Years Used Date Smoking Tobacco: Never Assessed Comments Unknown Sex and Gender Information Value Date Recorded Sex Assigned at Not on file Legal Sex Female 5:42 AM CORPORATE MANAGER Gender Identity Not on file Sexual Orientation Not on file documented as of this encounter Plan of Treatment Not on file documented as of this encounter Visit Diagnoses Not on filedocumented in this encounter Care Teams Music Professionals Relationship Specialty Start Date End Date Mook Koch MD PCP - General 09/03/06 12/22/07 documented as of this encounter
--- OUTSIDE RECORDS SUMMARY | 2024-08-08 16:05 | XMS_ITS | Encounter Summary ---
Author Organization [facility] Healthcare Address [address] [place] [id number] Care Team Providers Care Edge Burnisher Uppers Name Role Phone Lazarus Albert MD Primary Care Provider [phone] Reason for Visit * Reason Comments Wound Check * Consultation (Routine) - Closed Specialty Diagnoses / Procedures Referred By Contmerissa t Referred To Contact General Surgery Diagnoses Abdominal pain, unspecified abdominal location Mook Koch MD Phone: tel: fax: [facility] [address] [place] [address] Outpatient Health [address] [place] [address] Phone: tel: fax: Referral ID Status Reason Start Date Expiration Date V isits Requested Visits Authorized [id number] Closed Specialty Services Required 09/21/2019 04/01/2021 1 1 Encounter Details Date Type Department Care Team (Late st Contact Info) Description 09/25/2019 8:30 AM REACTOR SERVICE OPERATOR Office Visit [facility] [address] [place] [address] Outpatient Health [address] [place] [address] Mook Koch MD [address] [place] [address] Osvaldo Escobedo MD [address] [phone] [place] [address] Infection of prosthetic graft, initial encounter (CMS/HCC) (Primary Dx); Abdominal pain, unspecified abdominal location Discharge Disposition: Discharge to home or self [...] on file Legal Sex Female 5:42 AM REACTOR SERVICE OPERATOR Gender Identity Not on file Sexual Orientation Not on file documented as of this encounter Last Filed Vital Signs Vital Sign Reading Time Taken Comments Blood Pressure 155/72 09/25/2019 8:17 AM REACTOR SERVICE OPERATOR Pulse 71 09/25/2019 8:17 AM REACTOR SERVICE OPERATOR Temperature 36.6 ??C (97.9 ??F) 09/25/2019 8:17 AM CS T Respiratory Rate - - Oxygen Saturation 100% 09/25/2019 8:17 AM REACTOR SERVICE OPERATOR Inhaled Oxygen Concentration - - Weight 64.1 kg (141 lb 6.4 oz) 09/25/2019 8:17 A M REACTOR SERVICE OPERATOR Height 163.8 cm (5' 4.5 ) 09/25/2019 8:17 AM REACTOR SERVICE OPERATOR Body Mass Index 23.9 09/25/2019 8:17 AM REACTOR SERVICE OPERATOR documented in this encounter Patient Instructions * Patient Instructions* Osvaldo Escobedo MD - 09/25/2019 8:30 AM REACTOR SERVICE OPERATOR Follow up in Dr Partida clinic. Continue antibiotics. Take 300 mg 3 times /day. Try Gabapentin. We will be getting medical records. Patient and verbalized understanding of discharge instructions. TOR SERVICE OPERATOR TOR SERVICE OPERATOR TOR SERVICE OPERATOR documented in this encounter Ordered Prescriptions Prescription Sig Dispense Quantity Refills Last Filled Start Date End Date clindamycin (CLEOCIN) 300 mg capsule Take 1 capsule (300 mg total) by mouth 3 (three) times a day for 14 days 42 capsule 09/25/2019 0 gabapentin (NEURONTIN) 100 mg capsule Take 1 capsule (100 mg total) by mouth 3 (three) times a day 90 capsule 09/25/2019 0 documented in this encounter Discharge Disposition Disposition Code Departure Means Destination Discharge to home or self care documented in this encounter Progress Notes * Osvaldo Escobedo MD - 09/25/2019 8:30 AM CST [facility] New Patient Consultation DATE OF SERVICE:09/25/19 Madison Weinberg 1965 [id number] Daniel Aguayo MD has requested that I see Madison Weinberg in clinic for evaluation of Abdominal pain and infection of the midline wound. Chief complaint: Abdominal pain History of Present Illness Ms. Weinberg is a 53 y.o. female here for evaluation of abdominal pain and draining lower midline wound. She has a complex medical history the started with surgery over 27 years ago endometriosis. Most recently she had multiple surgeries at the [facility] in [place]. She was seen there by Dr. Mehdi [...] of this infection and the abdominal pain. Nothing seems to change abdominal pain. She is taking a proton pump inhibitor but says at this point there has been some problems with insurance paying for it. Otherwise the pain is crampy and exacerbated by my exam. She is not losing weight at this time. Done clear along the midline wound has been draining but it certainly has been on and off over time Past Medical History Past Medical History: Diagnosis Date ??? Anemia ??? Anxiety disorder Anxiety ??? DVT (deep venous thrombosis) (CMS/HCC) ??? HX OTHER MEDICAL Endometriosis-21 times ??? HX OTHER MEDICAL SANDBLASTER STONE ??? HX OTHER MEDICAL colon blockage ??? HX OTHER MEDICAL trigeminal neuralgia Past Surgical History Past Surgical History: Procedure Laterality Date ??? ABDOMINAL SURGERY surgery x 5 for bowel obstruction and subsequent infection ??? APPENDECTOMY 2006 Appendectomy ??? BREAST BIOPSY 2001 Breast biopsy ??? HYSTERECTOMY 1995 Hysterectomy ??? OTHER SURGICAL HISTORY Endometriosis-21 times: lap/laser ??? OTHER SURGICAL HISTORY colon blockage: partial bowel resection Family History Family History Problem Relation Age [...] disease Maternal Grandmother Heart disease; Social History Social History Socioeconomic History ??? Marital status: Spouse name: Not on file ??? Number of children: Not on file ??? Years of education: Not on file ??? Highest education level: Not on file Occupational History ??? Not on file Social Needs ??? Financial resource strain: Not on file ??? Food insecurity: Worry: Not on file Inability: Not on file ??? Transportation needs: Medical: Not on file Non-medical: Not on file Tobacco Use ??? Smoking status: Former Smoker Packs/day: 2.00 Years: 12.00 Pack years: 24.00 Types: E-cigarettes ??? Smokeless tobacco: Never Used Substance and Sexual Activity ??? Alcohol use: Not Currently Comment: rarely ??? Drug use: Yes Frequency: 7.0 times per week Types: Marijuana Comment: medical for pain and anxiety ??? Sexual activity: Defer Lifestyle ??? Physical activity: Days per week: Not on file Minutes per session: Not on file ??? Stress: Not on file Relationships ??? Social connections: Talks on phone: Not on file Gets together: Not on file Attends methodist service: Not on file Active member of club or organization: Not on file Attends meetings of clubs or organizations: Not on file Relationship status: Not on file ??? Intimate partner violence: Fear of current or ex partner: Not on file Emotionally abused: Not on file Physically abused: Not on file Forced sexual activity: Not on file Other Topics Concern ??? Not on file Social History Narrative ??? Not on file Allergies Allergies Allergen Reactions ??? Aspirin Hives Reaction: Hives, ??? Codeine Hives Reaction: Hives, ??? Duloxetine Mental status changes Reaction: CONFUSION, Medications Current Outpatient Medications on File Prior [...] Take 1 mg by mouth daily ??? levocetirizine (XYZAL) 5 mg tablet Take 5 mg by mouth every evening ??? NICOTROL 10 mg inhaler ??? ondansetron (ZOFRAN) 4 mg tablet Take 4 mg by mouth every 8 (eight) hours as needed for nausea or vomiting ??? orphenadrine ER (NORFLEX) 100 mg 12 hr tablet Take 100 mg by mouth 2 (two) times a day ??? oxyCODONE (ROXICODONE) 5 mg immediate release tablet Take 1 tablet (5 mg total) by mouth every 8 (eight) hours as needed for pain 10 tablet 0 ??? pantoprazole (PROTONIX) 40 mg injection ??? [...] tablet Take 150 mg by mouth nightly ??? amoxicillin-clavulanate (AUGMENTIN) 875-125 mg per tablet Take 1 tablet by mouth 2 (two) times a day for 10 days (Patient not taking: Reported on 09/25/2019) 20 tablet 0 No current facility-administered medications on file prior [...] Psych- No changes in mood Physical Exam: Ht:163.8 cm (5' 4.5 ) Wt:64.1 kg (141 lb 6.4 oz) Body mass index is 23.9 kg/m??. BP 155/72 (BP Location: Left arm, Patient Position: Sitting) Pulse 71 Temp 36.6 ??C (97.9 ??F) (Oral) Ht 163.8 cm (5' 4.5 ) Wt 64.1 kg (141 lb 6.4 oz) SpO2 100% BMI 23.90 kg/m?? GENERAL- no acute distress, comfortable NEURO- alert and oriented PSYCH- Mood and affect appropriate HEENT- EOMs grossly normal, no scleral icterus, mucous membranes moist LYMPHATICS- no palpable lymphadenopathy CARDIAC- regular rate and rhythm RESP- nonlabored respirations GI- abdomen soft, nondistended, multiple scars including a midline an old healed ostomy site. At the lower portion of the wound there is a small opening diffuse granulation tissue. There is some minimal tenderness in this area. When probed with a cotton-tipped applicator I can feel the mesh half a cm deep. There is no purulence at this time, but she has been on antibiotics. The rest her abdomen sh ows diffuse tenderness especially in the upper quadrant but no evidence of peritonitis at all. Whensitting she seems to be resting comfortably. MSK- grossly normal range of motion EXTREMITIES- extremities warm and dry, no swelling INTEGUMENT skin warm and dry, I have personally reviewed the latest laboratory values and imaging: Imaging review: I have independently examined the CT of the abdomen image(s). My findings are She has a mesh in place that is onlay and connecting with the skin fistula consistent with an infected mesh. No other findings that would explain her diffuse abdominal pain. Assessment and Plan: This patient has two discrete problems. One is her abdominal pain in the 2nd is a very likely infected mesh. In regards to her infected mesh I have given her an extended course of clindamycin as she had MRSA in her wound. She should take the antibiotics given to her by the ED and continue what we have given. She is to take 300 mg 3 times a day for three weeks. To coordinate her care and having her follow up in Dr Partida's clinic so that she can see a singular physician each week. He will reassess her on October 07 and see how she is doing from the mesh infection standpoint. I had a long discussion about what would be needed to have the mesh excise at a possible re-closure of her fascia or possible need for biologic mesh in the future. She will discuss this further with Dr. Partida. In addition we are getting the records from the [facility] so that we can better understand when the mesh was placed and its indications. She will use dry gauze over her open midline wound. In regards to abdominal pain, I am not clear what the etiology is. She has had a lot of scar tissuedeveloped in the past but seemingly most of her symptoms were due to bowel obstruction which she does not have an evidence of having now. The some not sure if the mesh is jenni and causing someof this pain or she is having more chronic pains due to multiple surgeries. I have given her a presc ription for low-dose gabapentin. Ulcer disease could also give some of the symptoms and I wanted toensure that she was maintaining her proton pump inhibitor use. I also offered her a visit to the pain service but she was not interested in that at this time. It is possible that some of the pain is associated with her mesh and would get better after mass excision although the upper portion of her abdomen looks clean in terms of infection so I am not sure if this will help or not. This can be better determined at her next visit with Dr. Partida. Madison Weinberg demonstrates understanding and is amenable to the outlined plan. There are no barriers to education today. The patient is encouraged to call the clinic with any questions or concerns. I personally spent a total of 60 minutes of face to face time with this patient, including 45 minutes spent on counseling and coordination of care. We discussed in infected mesh and abdominal pain.. Discussed the patient's care with Dr. Partida. She has filled out the paperwork and we have faxed to get the records from [facility]. Follow up recommended: on 10/07/2019. I, Osvaldo Escobedo, have personally seen this patient and agree with the above note. Osvaldo Escobedo M.D. Professor Department of Surgery Section of Acute and Critical Care Surgery [address] [place] [id number] Office: [phone] TOR SERVICE OPERATOR * Kira Donnelly RN - 09/25/2019 8:30 AM CST Wound care dressing applied per following orders: Dry gauze to midline wound. Patient and verbalized understanding of discharge instructions. TOR SERVICE OPERATOR documented in this encounter Plan of Treatment Not on file documented as of this encounter Procedures Procedure Name Priority Date/Time Associated Diagnosis Comments WOUND CARE Routine 09/25/2019 10:11 AM REACTOR SERVICE OPERATOR documented in this encounter Results * Wound care (09/25/2019 10:11 AM REACTOR SERVICE OPERATOR) Narrative Kira Donnelly RN - 09/25/2019 10:11 AM REACTOR SERVICE OPERATOR Wound care dressing applied per ??following orders: Dry gauze to midline wound. Patient and verbalized understanding of discharge instructions. Osvaldo Escobedo MD NURSING WOUND CARE Final Result documented in this encounter Visit Diagnoses Diagnosis Infection of prosthetic graft, initial encounter (HCC)- Primary Abdominal pain, unspecified abdominal location documented in this encounter Historical Medications * This list may reflect changes made after this encounter. clindamycin (CLEOCIN) 150 mg capsule Take 450 mg by mouth 3 (three) times a day 04/19/2020 added in this encounter Orders Outpatient Referral Count Last Ordered Date Fir st Ordered Date AMB REFERRAL TO GENERAL SURGERY 1 0 documented in this encounter Additional Health Concerns Infection Onset Date Last Indicated Resolved Time 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, nares 04/22/20; 01/18/21; urine 01/14/21 09/19/2019 02/09/2021 10/10/2021 4:00 AM REACTOR SERVICE OPERATOR documented as of this encounter Care Teams Edge Burnisher Uppers Relationship Specialty Start Date End Date Lazarus Albert MD [address] [facility] [place] [address] PCP - General 09/25/19 03/04/24 documented as of this encounter
--- OUTSIDE RECORDS SUMMARY | 2024-08-08 16:05 | XMS_ITS | Encounter Summary ---
Author Organization [facility] Facility Care Team Providers Care Ice Cream Truck Driver Name Role Phone Mook Koch MD Primary Care Provi franky Encounter Details Date Type Department Care Team (Latest Contact Info) Description 09/18/2019 Travel Social History Tobacco Use Types Packs/Day Years Used Date Smoking Tobacco: Never Assessed Alcohol Use Standard Drinks/Week Comments No 0 (1 standard drink = 0.6 oz pur e alcohol) Comments Unknown Sex and Gender Information Value Date Recorded Sex Assigned at Not on file Legal Sex Female 5:42 AM REGIONAL REFRIGERATED CDL TRUCK DRIVER Gender Identity Not on file Sexual Orientation Not on file documented as of this encounter Plan of Treatment Not on file documented as of this encounter Visit Diagnoses Not on filedocumented in this encounter Care Teams Ice Cream Truck Driver Relationship Specialty Start Date End Date Mook Koch MD PCP - General 12/23/07 09/24/19 documented as of this encounter
--- OUTSIDE RECORDS SUMMARY | 2024-08-08 16:05 | XMS_ITS | Encounter Summary ---
Author Organization [facility] Healthcare Address [address] [place] [address] Care Team Providers Care Electric Bath Attendant Name Role Phone Mook Koch MD Primary Care Provi franky Encounter Details Date Type Department Care Team (Latest Contact Info) Description 09/18/2019 9:11 PM SUPERVISOR PLASTICS - 09/18/2019 11:05 PM SUPERVISOR PLASTICS Hospital Encounter [facility] Radiology [address] [place] [address] Cali Quan MD [address] [place] [address] Discharge Disposition: Discharge to home or self care Social History Tobacco Use Types Packs/Day Years Used Date Smoking Tobacco: Never Assessed Alcohol Use Standard Drinks/Week Comments No 0 (1 standard drink = 0.6 oz pur e alcohol) Comments Unknown Sex and Gender Information Value Date Recorded Sex Assigned at Not on file Legal Sex Female 5:42 AM SUPERVISOR PLASTICS Gender Identity Not on file Sexual Orientation [...] nightly 1 documented as of this encounter Discharge Disposition Disposition Code Departure Means Destination Discharge to home or self care documented in this encounter Plan of Treatment Not on file documented as of this encounter Procedures Procedure Name Priority Date/Time Associated Diagnosis Comments CT ABDOMEN PELVIS W CONTRAST ED 09/18/2019 9:51 PM SUPERVISOR PLASTICS documented in this encounter Visit Diagnoses Not on filedocumented in this encounter Administered Medications Inactive Administered Medications - up to 3 most recent administrations Medication Order MAR Action Action Date Dose Rate Site ioversol (OPTIRAY 350) syringe syringe 100 mL 100 mL, intravenous, Once in imaging, contrast, Starting on Sat09/18/19 at 2146, For 1 dose Given 09/18/2019 9:51 PM SUPERVISOR PLASTICS 100 mL documented in this encounter Orders Medications Ordered That Guy ht Not Have Been Administered Count Last Ordered Date First Ordered Date ioversol (OPTIRAY 350) syrin ge syringe 100 mL 1 09/18/2019 documented in this encounter Care Teams Electric Bath Attendant Relationship Specialty Start Date End Date Mook Koch MD PCP - General 12/23/07 09/24/19 documented as of this encounter
--- OUTSIDE RECORDS SUMMARY | 2024-08-08 16:05 | XMS_ITS | Encounter Summary ---
Author Organization [facility] Address [address] [place] [address] Phone Care Team Providers Care Securities Clerk Name Role Phone Lazarus Albert MD Primary Care Provider [phone] Encounter Details Date Type Department Care Team (Late st Contact Info) Description 01/20/2020 2:30 PM CDT Office Visit [facility] Surgery [address] [facility] Advanced Medicine 8th [place] [address] [place] [phone] Ari Partida MD [address] [facility] [phone] [place] [address] Infected hernioplasty mesh, subsequent encounter (Primary Dx); Draining cutaneous sinus tract Social History Tobacco Use Types Packs/Day Years Used Date Smoking Tobacco: Former Cigarettes 2 12 E-cigarettes Smokeless Tobacco: Never Alcohol Use Standard Drinks/Week Comments Not Currently 0 (1 standard drink = 0.6 oz pur e alcohol) rarely Comments Unknown Sex and Gender Information Value Date Recorded Sex Assigned at Not on file Legal Sex Female 5:42 AM TANKAGE GRINDER OPERATOR Gender Identity Not on file Sexual Orientation Not on file documented as of this encounter Last Filed Vital Signs Vital Sign Reading Time Taken Comments Blood Pressure 110/80 01/20/2020 2:09 PM CDT Pulse 118 01/20/2020 2:09 PM CDT Temperature 36.8 ??C (98.3 ??F) 01/20/2020 2:09 PM CD T Respiratory Rate 16 01/20/2020 2:09 PM CDT Oxygen Saturation 97% 01/20/2020 2:09 PM CDT Inhaled Oxygen Concentration - - Weight 53.5 kg (118 lb) 01/20/2020 2:09 PM CDT Height 163.8 cm (5' 4.5 ) 01/20/2020 2:09 PM CDT Body Mass Index 19.94 01/20/2020 2:09 PM CDT documented in this encounter Progress Notes * Ari Partida MD - 01/20/2020 2:30 PM CDT Images from the original note were not included. [facility] Acute and Critical Care [facility] outpatient progress note DATE OF SERVICE:02/08/20 Madison Weinberg 1965 [id number] Osvaldo Escobedo MD has requested that I see Madison Weinberg in clinic for evaluation of Abdominal pain and infection of the midline wound. Encounter Diagnoses Name Primary? Infected hernioplasty mesh, subsequent encounter Yes ??? Draining cutaneous sinus tract Chief complaint: Draining abdominal wall sinus History of Present Illness Ms. Weinberg is a 54 y.o. female here for evaluation of abdominal pain and draining lower midline wound. She has a complex medical history the started with surgery over 27 years ago endometriosis. Most recently she had multiple surgeries at the [facility] in [place]. She was seen there by Dr. Mehdi [...] wall likely outside the fascia. She continues with abdominal pain. Past Medical History Past Medical History: Diagnosis Date ??? Anemia ??? Anxiety disorder Anxiety ??? DVT (deep venous thrombosis) (CMS/HCC) ??? HX OTHER MEDICAL Endometriosis-21 times ??? 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 HX OTHER MEDICAL colon blockage ??? HX OTHER MEDICAL trigeminal neuralgia Past Surgical History Past Surgical History: Procedure Laterality Date ??? ABDOMINAL SURGERY surgery x 5 for bowel obstruction and subsequent infection ??? APPENDECTOMY 2006 Appendectomy ??? BREAST BIOPSY 2000 Breast biopsy ??? [...] file Gets together: Not on file Attends holiness service: Not on file Active member of [...] Physical Exam: Ht:163.8 cm (5' 4.5 ) Wt:53.5 kg (118 lb) Body mass index is 19.94 kg/m??. BP 110/80 (BP Location: Left arm, Patient Position: Sitting) Pulse 118 Temp 36.8 ??C (98.3 ??F) Resp 16 Ht 163.8 cm (5' 4.5 ) Wt 53.5 kg (118 lb) SpO2 97% BMI 19.94 kg/m?? GENERAL- no acute distress, comfortable NEURO- [...] time. There is no palpable hernia defect. MSK- grossly normal range of motion EXTREMITIES- extremities warm and dry, no swelling INTEGUMENT skin warm and dry, Imaging: CT scan which was obtained at the last visit his last imaging study Assessment and Plan: This patient has two discrete problems which I agree with as identified by Dr. Escobedo prior referral., these are abdominal pain and a infected abdominal wall mesh. The operative reports from the outside hospital were obtained and do not make notation of an implanted mesh. The CT imaging is pretty consistent with the mesh in place in the anterior abdominal wall which may likely be an onlay mesh. I suspect this is biologic in nature but has not completely dissolved. The operative report from the outside hospital makes notation of excision of the abdominal wall as part of the small bowel resection so I suspect this was buttressed with a mesh. The low-grade indolent infection with associated sinus tract is likely consistent with this. I see no palpable hernia defects on physical exam today nor 1 was observed on the CT scan obtained earlier in 2019. Her abdominal pain is chronic and likely will not resolve with the excision of the hernia mesh or reconstruction of the abdominal wall if this is incorporating the abdominal wall. She and her husbandboth understand that chronic abdominal pain will require [...] much as is possible that is unincorporated. I do not expect this to be a synthetic mesh. If this involves part of the abdominal wall which may require reconstruction this may be done within underlaybiologic mesh with ventral synthetic mesh if she has compromise of for abdominal musculature. The patient and will discuss, and then my office will contact them for surgical scheduling for the following procedure Exploration of sinus tract with excision, possible [...] Diagnosis Infected hernioplasty mesh, subsequent encounter- Primary Draining cutaneous sinus tract documented in this encounter Additional Health Concerns Infection Onset Date Last Indicated Resolved Time 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, nares 04/22/20; 01/18/21; urine 01/14/21 09/19/2019 02/09/2021 10/10/2021 4:00 AM TANKAGE GRINDER OPERATOR documented as of this encounter Care Teams Securities Clerk Relationship Specialty Start Date End Date Lazarus Albert MD [address] [facility] [place]PT [place] [address] PCP - General 09/25/19 03/04/24 documented as of this encounter
--- OUTSIDE RECORDS SUMMARY | 2024-08-08 16:05 | XMS_ITS | Encounter Summary ---
Author Organization [facility] Healthcare Address [address] [place] [address] Care Team Providers Care Sloop Captain Name Role Phone Mook Koch MD Primary Care Provi franky Encounter Details Date Type Department Care Team (Late st Contact Info) Description 01/01/2008 8:28 AM CDT - 01/01/2008 5:00 PM CDT Hospital [place] [address] [facility] [address] [place] [address] Social History Tobacco Use Types Packs/Day Years Used Date Smoking Tobacco: Never Assessed Comments Unknown Sex and Gender Information Value Date Recorded Sex Assigned at Not on file Legal Sex Female 5:42 AM LENS BLANK GAUGER Gender Identity Not on file Sexual Orientation Not on file documented as of this encounter Plan of Treatment Not on file documented as of this encounter Visit Diagnoses Not on filedocumented in this encounter Care Teams Sloop Captain Relationship Specialty Start Date End Date Mook Koch MD PCP - General 12/23/07 09/24/19 documented as of this encounter
--- OUTSIDE RECORDS SUMMARY | 2024-08-08 16:05 | XMS_ITS | Encounter Summary ---
Author Organization [facility] Healthcare Address [address] [place] [address] Care Team Providers Care Medication Technician Name Role Phone Mook Koch MD Primary Care Provi franky Encounter Details Date Type Department Care Team (Late st Contact Info) Description 08/19/2008 7:29 AM MANAGER UTILITIES - 08/19/2008 8:23 AM MANAGER UTILITIES Hospital Encounter [facility] Alfonzo Stahl MD [facility] [address] [address] Doug Nicholson MD [address] [place] [id number] Thoracic back sprain; Other overexertion and strenuous and repetitive movements or loads; Place of occurrence, public building Social History Tobacco Use Types Packs/Day Years Used Date Smoking Tobacco: Never Assessed Comments Unknown Sex and Gender Information Value Date Recorded Sex Assigned at Not on file Legal Sex Female 5:42 AM MANAGER UTILITIES Gender Identity Not on file Sexual Orientation Not on file documented as of this encounter Plan of Treatment Not on file documented as of this encounter Visit Diagnoses Diagnosis Thoracic back sprain Thoracic sprain and strain Other overexertion and strenuous and repetitive movements or loads Place of occurrence, public building documented in this encounter Care Teams Medication Technician Relationship Specialty Start Date End Date Mook Koch MD PCP - General 12/23/07 09/24/19 documented as of this encounter
--- OUTSIDE RECORDS SUMMARY | 2024-08-08 16:05 | XMS_ITS | Encounter Summary ---
Author Organization [facility] Healthcare Address [address] [place] [address] Care Team Providers Care Labor Commissioner Name Role Phone Lazarus Albert MD Primary Care Provider [phone] Encounter Details Date Type Department Care Team (Late st Contact Info) Description 04/22/2020 7:17 AM CDT Anesthesia Event [facility] Operating Room [address] [place] [address] Luis Felipe Villafuerte MD [address] [place] [address] Izabela Evangelista NP [address] [facility] [id number] [place] [address] Anesthesia Record Procedure Summary Procedure Name Responsible Anesthesiologist Anesthesia Start Time Anesthesia Stop Time ABDOMINAL MESH EXCISION 3.5X8 ABDOMINAL SKIN EXCISION 6X5.5 Luis Felipe Villafuerte MD 04/22/20 0717 04/22/20 1023 Events Date Time Event Comment 04/22/2020 0524 In Preop 0717 An Start 0735 In Room 0738 An Start Data 0747 An Induction The patient was reevaluated immediately before moderate or deep sedation use and before anesthesia induction. 0749 An Intubation 0753 IV Placed 0809 Anesthesia Ready 0820 IV Placed 0826 Proc Start 1007 Proc Fin 1010 An Extubation 1010 an stop data 1013 Out of Room 1023 Handoff to RN I completed my handoff to the receiving nurse during which we: 1. Patient identified 2. Responsible provider identified 3. Pertinent medical history reviewed 4. Procedure type and surgical course discussed 5. Intraoperative anesthetic management and any significant issues discussed 6. Expectations and concerns for postop period discussed 7. Questions solicited from receiving nurse 8. Patient disposition at the time of handoff: PACU 1023 An Stop 05/05/2020 0721 Chart Exception (Billing) Th is event is only to be used when the record fails to meet documentation requirements for billing and thus is unable to be signed through the regular documentation verification process. Please document reason for use: Provider (Noy) responded to inquiry that he did not supervise the Reading placement. Service was provided by Resident only. Provider could not close encounter. Meds Name Total midazolam PF 2 mg lidocaine 1 % PF 80 mg fentaNYL 250 mcg propofol 120 mg rocuronium 60 mg phenylephrine 100 mcg/mL 700 mcg HYDROmorphone 2 mg/mL 1 mg ondansetron PF (ZOFRAN) 2 mg/mL injectio n 4 mg ertapenem 1,000 mg phenylephrine infusion (100 mcg/mL) 2.5 mg famotidine PF 20 mg dexamethasone 4 mg/ml 8 mg sugammadex 200 mg LR 900 mL Lactated Ringer's (LR) infusion 0 mL * Agents Name O2% N2O O2 Air Sevoflurane Inspired Sevoflurane * Blood No blood administrations on file. Lines, Drains, and Airways Type Details Placement Removal RETIRED Wound Open wound; Abdomen; 01/14/21; 0834 09/25/19 0829 by 01/14/21 0834 by Chichi Lawton, KAT Arterial Line Placement Date: 04/22/20; Placemnt Time: 07 (created via procedure documentation); Size: 20 G; Orientation: Right; Location: Brachial; Securement: Taped, Transparent dressing; Removal Date: 04/22/20; Removal Time: 1029 04/22/20 0743 by Octavio Madrid MD 04/22/20 1029 by Ana Blackmon, KAT ETT Placement Date: 04/22/20; Placement Time: 0749 (created via procedure documentation); Mask Ventilation: 1; Technique: Direct laryngoscopy; Type: ETT - single; Single Lumen Tube Size: 7 mm; Cuffed: Yes; Laryngoscope: Andrew; Blade Size: 3; Location: Oral; Grade View: Grade I; Insertion Attempts: 1; Placement Verification: Auscultation, Capnometry; Removal Date: 04/22/20; Removal Time: 1010 04/22/20 0749 by Kennedy Lea CRNA 04/22/20 1010 by Kennedy Lea CRNA Peripheral IV Placement Date: 04/22/20; Placement Time: 0753; Catheter Size: 20 G; Orientation: Right; Location: Forearm; Site Prep: Chlorhexidine; Inserted by: SUE; Insertion Attempts: 1; Patient Tolerance: Tolerated well; Removal Date: 04/22/20; Removal Time: 2358; Removal Reason: Infiltrated 04/22/20 0753 by He Hunt CRNA 04/22/20 2358 by Anabell Hunt RN Urethral Catheter Placement Date: 04/22/20; Placement Time: 08; Inserted by: Corry Gamez RN; Type: Temperature probe; Size: 16 Fr.; Balloon Size: 10 mL; Urine Returned: Yes; Removal Date: 04/22/20; Removal Time: 1004; Removal Reason: Disontinued in OR 04/22/20 0807 by Corry Gamez RN 04/22/20 1004 by Corry Gamez RN Peripheral IV Placement Date: 04/22/20; Placement Time: 0811 (created via procedure documentation); Catheter Size: 20 G; Orientation: Left; Location: Antecubital; Site Prep: Alcohol; Inserted by: SUE; Insertion Attempts: 1; Patient Tolerance: Tolerated well; Removal Date: 04/22/20; Removal Time: 0846; Removal Reason: Site change 04/22/20 0811 by Kennedy Lea CRNA 04/22/20 0846 by He Hunt CRNA Peripheral IV Placement Date: 04/22/20; Placement Time: 08; Catheter Size: 20 G; Orientation: Left; Location: Wrist; Site Prep: Chlorhexidine; Inserted by: SUE; Insertion Attempts: 2; Patient Tolerance: Tolerated well; Removal Date: 04/23/20; Removal Time: 1333; Removal Reason: Infiltrated 04/22/20 0820 by He Hunt CRNA 04/23/20 1333 by Telma Henriquez NP RETIRED Surgical Site 04/22/20; 0832; Abdomen; 05/01/20 04/22/20 0832 by Corry Gamez RN 05/01/20 0000 by Taylor Eckert RN documented in this encounter Social History Tobacco [...] on file Legal 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 Gender Identity Not on file Sexual Orientation Not on file documented as of this encounter OR Notes * Anesthesia Postprocedure Evaluation - Corry Buckner MD - 04/22/2020 11:47 AM CDT Patient: Madison Weinberg Procedure Summary Date: 04/22/20 Room / Location: [facility] OR POD 2 ROOM 209 / [facility] OR POD 2 Anesthesia Start: 716 Anesthesia Stop: 1022 Procedure: ABDOMINAL MESH EXCISION 3.5X8 ABDOMINAL SKIN EXCISION 6X5.5 (N/A ) Diagnosis: Abdominal pain (Abdominal pain [R10.9]) Surgeon: Ari Partida MD Responsible Provider: Luis Felipe Villafuerte MD Anesthesia Type: general ASA Status: 3 Anesthesia Type: general Last vitals BP 152/80 Pulse 88 Temp 36.3 ??C (97.3 ??F) (Temporal) Resp 11 SpO2 100% Anesthesia Post Evaluation Patient location during evaluation: PACU Patient participation: complete - patient participated Level 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 Weinberg reports her nausea is improving. Comments: Appropriate for discharge to floor. Cosigned by Shama Hair MD at 04/22/2020 11:54 AM CDT * Anesthesia Procedure Notes - Kennedy Lea BS - 04/22/2020 8:31 AM CDT Associated Order(s): Arterial Line Arterial Line Patient location: pre-op holding Start time: 04/22/2020 7:26 AM Indication: continuous blood pressure monitoring and blood sampling needed Ultrasound assisted: yes Staff: Placed by: Resident: Alfonzo Arora MD Procedure prep: Prep solution: chlorhexadine/alcohol Prep: provider hat/mask and sterile gloves Skin infiltrated with lidocaine 1%: yes Arterial line: Catheter size: 20 gauge Catheter length: 1 and 3/4 inch Catheter type: angiocath Seldinger technique: no Laterality: right Site: brachial artery Line secured: Tegaderm and tape Results: good waveform and good blood return Number of attempts: 1 Assessment: Events: patient tolerated procedure well with no complications * Anesthesia Procedure Notes - Kennedy Lea BS - 04/22/2020 8:11 AM CDT Associated Order(s): Peripheral IV Catheter Peripheral IV Catheter * Anesthesia Procedure Notes - Kennedy Lea BS - 04/22/2020 8:09 AM CDT Associated Order(s): Airway Airway Patient location: OR Urgency: elective Date/time: 04/22/2020 7:49 AM Indications for airway management: anesthesia and airway protection Difficult airway: no Staff: Supervising provider: Luis Felipe Villafuerte MD Placed by: Other staff: KATHARINE Nam Emergent airway documentation: Risks and benefits discussed: yes Consent obtained: yes Consent given by: patient Airway prep: Preoxygenated: yes Patient position: sniffing MILS maintained throughout: yes Mask difficulty assessment: 1 - vent by mask Spontaneous ventilation during airway: absent Sedation level during airway: GA Final airway details: Final airway type: endotracheal airway Tube type: ETT ETT size: 7.0 mm Cuffed: yes Technique used for successful ETT placement: direct laryngoscopy Devices/Methods used in placement: intubating stylet and cricoid pressure Insertion site: oral Blade type: Andrew Blade size: 3 Cormack-Lehane (direct): grade I - full view of glottis Cuff volume: 8 mL Cuff inflated with: air ETT to gums: 22 cm Placement verified by: auscultation and CO2 detection Airway secured with: silk tape Number of attempts: 1 * Anesthesia Procedure Notes - Alfonzo Arora MD - 04/22/2020 7:43 AM CDT Associated Order(s): Arterial Line Arterial Line Patient location: pre-op holding Indication: continuous blood pressure monitoring Ultrasound assisted: yes Staff: Supervising provider: Luis Felipe Villafuerte MD Placed by: Resident: Alfonzo Arora MD Procedure prep: Prep solution: chlorhexadine/alcohol Prep: provider hat/mask Arterial line: Catheter size: 20 gauge Catheter type: angiocath Seldinger technique: no Laterality: right Site: brachial artery Line secured: tape and Tegaderm Results: good blood return Number of attempts: 1 Assessment: Events: patient tolerated procedure well with no complications Additional comments: Inadvertent arterial stick while attempting to place ultrasound-guided IV in pre-op. Arterial line left in place to be transduced during the case * Anesthesia Preprocedure Evaluation - Luis Felipe Villafuerte MD - 04/19/2020 5:02 PM CDT Images from the original note were not included. [facility] Preoperative Evaluation Record Evaluation type/location: [facility] Planned procedure site: [facility] (Pods 2/3/5/CHICKEN CATCHER) Date: 04/19/20 Anesthesia Evaluation Madison Weinberg is [...] 11/2018. Pertinent negatives: hypertension ; CAD ; AL ; CABG ; valvular heart disease; valve [...] days. Pre- procedure COVID19 testing performed at [facility]. Result pending. The patient is [...] was 04/16/2020. Please call the CPAP attending ([phone]) to revisit risk assessment, with any q [...] 5 mg EC tablet 04/11/20 -- Ari Partida MD TAKE TWO 5MG TABLETS AT 10:00 [...] (FLAGYL) 500 mg tablet 04/11/20 -- Ari Partida MD TAKE ONE 500MG TABLET AT 1:00 PM, 2:00 PM AND 10:00 PM DAY PRIOR TO SURGERY neomycin (MYCIFRADIN) 500 mg tablet 04/11/20 05/11/20 Ari Partida MD TAKE ONE 500MG TABLET AT 1:00 PM, 2:00 PM AND 10:00 PM DAY PRIOR TO SURGERY ondansetron (ZOFRAN) 8 mg tablet 04/11/20 -- Ari Partida MD TAKE ONE 8MG TABLET AT 11:00 [...] Total Score: 1 Shadi index score: 100 DOS Physical Exam Medical history, medications, and allergies reviewed. Attestation: This PAT evaluation Airway Exam: Mallampati: II Cervical ROM: FROM Cardiovascular Exam: Rate: regular Pulmonary Exam: (Unlabored breathing) Anesthesia Plan ASA 3 My patient is approved for the Anesthesia Controlled Medication protocol when under care of a NURSE ADVOCATE Planned anesthesia: General Team communication plan: oral ET tube Invasive Monitors Planned: Invasive monitors planned: central venous catheter. Induction: Induction: intravenous. Postoperative Plan: Postoperative administration opioids intended. No postoperative mechanical ventilation intended. Patient's planned disposition post procedure is Floor. Planned trial extubation. Informed Consent: Discussed plan with NURSE ADVOCATE. Anesthesia plan and risks discussed with patient. Consent and Attending signature: I and/or my designee have discussed the anesthesia plan, benefits, possible alternatives, parental presence at time of induction (if indicated), and clinically relevant risks that may include dental injury, unintentional awareness, and/or other complications. The patient and/or parent/legal guardian understand, and agree to proceed. All questions answered. documented in this encounter Plan of Treatment Not on file documented as of this encounter Procedures Procedure Name Priority Date/Time Associated Diagnosis Comments FL AN PROCEDURE PLACEHOLDER Routine 04/22/2020 8:31 AM CDT FL AN PROCEDURE PLACEHOLDER Routine 04/22/2020 8:11 AM CDT FL AN PROCEDURE PLACEHOLDER Routine 04/22/2020 8:09 AM CDT FL AN ELECTIVE ENDOTRACHEAL AIRWAY Routine 04/22/2020 8:09 AM CDT ANESTHESIA ARTERIAL LINE PLACEMENT Routine 04/22/2020 7:43 AM CDT documented in this encounter Results * FL AN PROCEDURE PLACEHOLDER (04/22/2020 8:31 AM CDT) Narrative Kennedy Lea BS - 04/22/2020 8:31 AM CDT KATHARINE Nam ? 04/22/2020 ??8:32 AM Arterial Line Patient location: pre-op holding Start time: 04/22/2020 7:26 AM Indication: continuous blood pressure monitoring and blood sampling needed Ultrasound assisted: yes Staff: Placed by: Resident: Alfonzo Arora MD Procedure prep: Prep solution: chlorhexadine/alcohol Prep: provider hat/mask and sterile gloves Skin infiltrated with lidocaine 1%: yes Arterial line: Catheter size: 20 gauge Catheter length: 1 and 3/4 inch Catheter type: angiocath Seldinger technique: no Laterality: right Site: brachial artery Line secured: Tegaderm and tape Results: good waveform and good blood return Number of attempts: 1 Assessment: Events: patient tolerated procedure well with no complications Luis Felipe Villafuerte MD ANESTHESIA ORDERABLES Final Result * FL AN PROCEDURE PLACEHOLDER (04/22/2020 8:11 AM CDT) Narrative Kennedy Lea BS - 04/22/2020 8:11 AM CDT KATHARINE Nam ? 04/22/2020 ??8:11 AM Peripheral IV Catheter Luis Felipe Villafuerte MD ANESTHESIA ORDERABLES Final Result * FL AN ELECTIVE ENDOTRACHEAL AIRWAY, FL AN PROCEDURE PLACEHOLDER (04/22/2020 8:09 AM CDT) Narrative Kennedy Lea BS - 04/22/2020 8:09 AM CDT KATHARINE Nam ? 04/22/2020 ??8:11 AM Airway Patient location: OR Urgency: elective Date/time: 04/22/2020 7:49 AM Indications for airway management: anesthesia and airway protection Difficult airway: no Staff: Supervising provider: Luis Felipe Villafuerte MD Placed by: Other staff: KATHARINE Nam Emergent airway documentation: Risks and benefits discussed: yes Consent obtained: yes Consent given by: patient Airway prep: Preoxygenated: yes Patient position: sniffing MILS maintained throughout: yes Mask difficulty assessment: 1 - vent by mask Spontaneous ventilation during airway: absent Sedation level during airway: GA Final airway details: Final airway type: endotracheal airway Tube type: ETT ETT size: 7.0 mm Cuffed: yes Technique used for successful ETT placement: direct laryngoscopy Devices/Methods used in placement: intubating stylet and cricoid pressure Insertion site: oral Blade type: Andrew Blade size: 3 Cormack-Lehane (direct): grade I - full view of glottis Cuff volume: 8 mL Cuff inflated with: air ETT to gums: 22 cm Placement verified by: auscultation and CO2 detection Airway secured with: silk tape Number of attempts: 1 us Luis Felipe Villafuerte MD ANESTHESIA ORDERABLES Final Result * Arterial Line (04/22/2020 7:43 AM CDT) Alfonzo Melo MD - 04/22/2020 7:43 AM CDT Alfonzo Arora MD ? 04/22/2020 ??7:45 AM Arterial Line Patient location: pre-op holding Indication: continuous blood pressure monitoring Ultrasound assisted: yes Staff: Supervising provider: Luis Felipe Villafuerte MD Placed by: Resident: Alfonzo Arora MD Procedure prep: Prep solution: chlorhexadine/alcohol Prep: provider hat/mask Arterial line: Catheter size: 20 gauge Catheter type: angiocath Seldinger technique: no Laterality: right Site: brachial artery Line secured: tape and Tegaderm Results: good blood return Number of attempts: 1 Assessment: Events: patient tolerated procedure well with no complications Additional comments: Inadvertent arterial stick while attempting to place ultrasound-guided IV in pre-op. Arterial line left in place to be transduced during the case us Luis Felipe Villafuerte MD ANESTHESIA ORDERABLES Edited Result - Final documented in this encounter Visit Diagnoses Not on filedocumented in this encounter Administered Medications Inactive Administered Medications - up to 3 most recent administrations Medication Order MAR Action Action Date Dose Rate Site dexAMETHasone (DECADRON) 4 mg/mL injection Administer over 2 Minutes, As needed, Starting on Sat04/22/20 at 0940, Anesthesia Intra-op Given 04/22/2020 9:40 AM CDT 8 mg ertapenem (INVanz) injection Administer over 5 Minutes, As needed, Starting on Sat04/22/20 at 0809, Anesthesia Intra-op Given 04/22/2020 8:09 AM CDT 1,000 mg famotidine (PEPCID) injection Administer over 2 Minutes, As needed, Starting on Sat04/22/20 at 0940, Anesthesia Intra-op Given 04/22/2020 9:40 AM CDT 20 mg fentaNYL (SUBLIMAZE) preservative free injection intravenous, As needed, Starting on Sat04/22/20 at 0747, Anesthesia Intra-op Given 04/22/2020 8:25 AM CDT 150 mcg Given 04/22/2020 7:47 AM CDT 100 mcg HYDROmorphone (DILAUDID) injection intravenous, Administer over 2 Minutes, As needed, Starting on Sat04/22/20 at 1012, Anesthesia Intra-op Given 04/22/2020 10:19 AM CDT 0.5 mg Given 04/22/2020 10:12 AM CDT 0.5 mg Lactated Ringer's (LR) infusion 30 mL/hr, intravenous, Continuous, Starting on Sat04/22/20 at 0645, Pre-Op Rate/Dose Change 04/22/2020 9:58 AM CDT 600 mL/hr New Bag 04/22/2020 7:35 AM CDT 30 mL/hr Lactated Ringer's (LR) infusion Continuous PRN, Starting on Sat04/22/20 at 0755, Anesthesia Intra-op New Bag 04/22/2020 7:55 AM CDT lidocaine PF (XYLOCAINE) 10 mg/mL (1 %) preservative free injection As needed, Starting on Sat04/22/20 at 0747, Anesthesia Intra-op Given 04/22/2020 7:47 AM CDT 80 mg midazolam (VERSED) preservative free injection intravenous, Administer over 2 Minutes, As needed, Starting on Sat04/22/20 at 0731, Anesthesia Intra-op Given 04/22/2020 7:31 AM CDT 2 mg ondansetron (ZOFRAN) injection intravenous, Administer over 2 Minutes, As needed, Starting on Sat04/22/20 at 0731, Anesthesia Intra-op Given 04/22/2020 7:31 AM CDT 4 mg phenylephrine (JEREMY-SYNEPHRINE) 0.5 mg/5 mL (100 mcg/mL) in sodium chloride 0.9% (premix) intravenous, As needed, Starting on Sat04/22/20 at 0748, Anesthesia Intra-op Given 04/22/2020 8:02 AM CDT 200 mcg Given 04/22/2020 7:59 AM CDT 100 mcg Given 04/22/2020 7:52 AM CDT 100 mcg phenylephrine (JEREMY-SYNEPHRINE) 5 mg/50 mL (100 mcg/mL) in sodium chloride 0.9% (premix) Continuous PRN, Starting on Sat04/22/20 at 0756, Anesthesia Intra-op Rate/Dose Change 04/22/2020 9:54 AM CDT 0.2 mcg/kg/min 6.42 mL/hr Rate/Dose Change 04/22/2020 8:06 AM CDT 0.4 mcg/kg/min 12. 84 mL/hr New Bag 04/22/2020 7:56 AM CDT 0.3 mcg/kg/min 9.63 mL/h r propofoL (DIPRIVAN) IV intravenous, As needed, Starting on Sat04/22/20 at 0747, Anesthesia Intra-op Given 04/22/2020 9:34 AM CDT 20 mg Given 04/22/2020 7:51 AM CDT 30 mg Given 04/22/2020 7:47 AM CDT 70 mg rocuronium (ZEMURON) injection intravenous, As needed, Starting on Sat04/22/20 at 0747, Anesthesia Intra-op Given 04/22/2020 7:47 AM CDT 60 mg sugammadex (BRIDION) 100 mg/mL intravenous solution As needed, Starting on Sat04/22/20 at 0955, Anesthesia Intra-op Given 04/22/2020 9:55 AM CDT 200 mg documented in this encounter Additional Health Concerns Infection Onset Date Last Indicated Resolved Time 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
--- OUTSIDE RECORDS SUMMARY | 2024-08-08 16:05 | XMS_ITS | Encounter Summary ---
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
--- OUTSIDE RECORDS SUMMARY | 2024-08-08 16:05 | XMS_ITS | Encounter Summary ---
Author Organization [facility] Healthcare Address [address] [place] [address] Care Team Providers Care Onion Tier Name Role Phone Mook Koch MD Primary Care Provi franky Encounter Details Date Type Department Care Team (Late st Contact Info) Description 09/07/2008 5:29 PM FARO DEALER - 09/07/2008 6:49 PM FARO DEALER Hospital Encounter [facility] Antony John Christopher, MD [address] [place] [address] Sprain of ankle; Other overexertion and strenuous and repetitive movements or loads; Place of occurrence, home; Tobacco use disorder Social History Tobacco Use Types Packs/Day Years Used Date Smoking Tobacco: Never Assessed Comments Unknown Sex and Gender Information Value Date Recorded Sex Assigned at Not on file Legal Sex Female 5:42 AM FARO DEALER Gender Identity Not on file Sexual Orientation Not on file documented as of this encounter Plan of Treatment Not on file documented as of this encounter Visit Diagnoses Diagnosis Sprain of ankle Unspecified site of ankle sprain and strain Other overexertion and strenuous and repetitive movements or loads Place of occurrence, home Tobacco use disorder documented in this encounter Care Teams Onion Tier Relationship Specialty Start Date End Date Mook Koch MD PCP - General 12/23/07 09/24/19 documented as of this encounter
--- OUTSIDE RECORDS SUMMARY | 2024-08-08 16:05 | XMS_ITS | Encounter Summary ---
Author Organization [facility] Address [address] [place] [address] Phone Care Team Providers Care Glass Cut Off Supervisor Name Role Phone Lazarus Albert MD Primary Care Provider [phone] Reason for Visit * Reason Onset Date Comments returned call 11/27/2019 Encounter Details Date Type Department Care Team (Late st Contact Info) Description 11/27/2019 Telephone [facility] Surgery [address] [facility] 8th [place] [address] [place] [address] Jinny Castro RMA returned call Social History Tobacco Use Types Packs/Day Years Used Date Smoking Tobacco: Former Cigarettes 2 12 E-cigarettes Smokeless Tobacco: Never Alcohol Use Standard Drinks/Week Comments Not Currently 0 (1 standard drink = 0.6 oz pur e alcohol) rarely Comments Unknown Sex and Gender Information Value Date Recorded Sex Assigned at Not on file Legal Sex Female 5:42 AM MARRIAGE COUNSELOR Gender Identity Not on file Sexual Orientation Not on file documented as of this encounter Miscellaneous Notes * Telephone Encounter - Jinny Castro MA - 11/27/2019 4:02 PM CDT Called patient. Dr. Partida will review her chart again this weekend. Her operative notes from [facility] show no mesh placed. He has no solution to her abdominal pain currently. Patient stated she understood. 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
--- OUTSIDE RECORDS SUMMARY | 2024-08-08 16:05 | XMS_ITS | Encounter Summary ---
Author Organization [facility] Healthcare Address [address] [place] [address] Care Team Providers Care Sterile Preparation Technician Name Role Phone Mook Koch MD Primary Care Provi franky Encounter Details Date Type Department Care Team (Late st Contact Info) Description 04/21/2008 12:45 PM CDT - 04/25/2008 10:20 AM CDT Hospital Encounter [facility] Quentin Arzate Acquired absence of intestine Social History Tobacco Use Types Packs/Day Years Used Date Smoking Tobacco: Never Assessed Comments Unknown Sex and Gender Information Value Date Recorded Sex Assigned at Not on file Legal Sex Female 5:[address] Gender Identity Not on file Sexual Orientation Not on file documented as of this encounter Plan of Treatment Not on file documented as of this encounter Visit Diagnoses Diagnosis 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
--- OUTSIDE RECORDS SUMMARY | 2024-08-08 16:05 | XMS_ITS | Encounter Summary ---
Author Organization [facility] Healthcare Address [address] [place] [address] Care Team Providers Care Mold Cleaner Name Role Phone Mook Koch MD Primary Care Provi franky Reason for Visit * Reason Onset Date Comments Request for an appointment 09/22/2019 Encounter Details Date Type Department Care Team (Late st Contact Info) Description 09/22/2019 Telephone [facility] [address] [facility] 3rd Floor [address] [place] [address] Susanne Sarkar MA Request for an appointment Social History Tobacco Use Types Packs/Day Years Used Date Smoking Tobacco: Never Assessed Alcohol Use Standard Drinks/Week Comments No 0 (1 standard drink = 0.6 oz pur e alcohol) Comments Unknown Sex and Gender Information Value Date Recorded Sex Assigned at Not on file Legal Sex Female 5:42 AM FISHING TOOL OPERATOR Gender Identity Not on file Sexual Orientation Not on file documented as of this encounter Miscellaneous Notes * Telephone Encounter - Susanne Sarkar MA - 09/22/2019 2:[address] Escobedo, pt. Scheduled for an appt. On 09/25/19 @ 0830. Pt. verbalized understanding. TH ING TOOL OPERATOR * Telephone Encounter - Susanne Sarkar MA - 09/22/2019 1:35 PM CST Left a msg. For pt. At [phone] as she called our ofice for an appt., and her call Was lost. Advised that she call [phone] option 2 to schedule that appt., pt. Has an [employer] plan. 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
--- OUTSIDE RECORDS SUMMARY | 2024-08-08 16:05 | XMS_ITS | Encounter Summary ---
Author Organization [facility] Healthcare Address [address] [place] [address] Care Team Providers Care Paperboard Machine Operator Name Role Phone Mook Koch MD Primary Care Provi franky Encounter Details Date Type Department Care Team (Late st Contact Info) Description 11/03/2008 12:01 AM CDT - 11/03/2008 11:59 PM CDT Hospital En[facility] Mook Koch MD [address] [place] [address] Encounter for screening mammogram for high-risk patient; Family history of malignant neoplasm of breast Social History Tobacco Use Types Packs/Day Years Used Date Smoking Tobacco: Never Assessed Comments Unknown Sex and Gender Information Value Date Recorded Sex Assigned at Not on file Legal Sex Female 5:42 AM MEDICATION ADMINISTRATION PROFESSIONAL Gender Identity Not on file Sexual Orientation Not on file documented as of this encounter Plan of Treatment Not on file documented as of this encounter Visit Diagnoses Diagnosis Encounter for screening mammogram for high-risk patient Family history of malignant neoplasm of breast documented in this encounter Care Teams Paperboard Machine Operator Relationship Specialty Start Date End Date Mook Koch MD PCP - General 12/23/07 09/24/19 documented as of this encounter
--- OUTSIDE RECORDS SUMMARY | 2024-08-08 16:05 | XMS_ITS | Encounter Summary ---
Author Organization [facility] Facility Care Team Providers Care Warehouse Supervisor Name Role Phone Lazarus Albert MD Primary Care Provider [phone] Encounter Details Date Type Department Care Team (Latest Contact Info) Description 09/25/2019 Travel Social History Tobacco Use Types Packs/Day Years Used Date Smoking Tobacco: Former Cigarettes 2 12 E-cigarettes Smokeless Tobacco: Never Alcohol Use Standard Drinks/Week Comments Not Currently 0 (1 standard drink = 0.6 oz pur e alcohol) rarely Comments Unknown Sex and Gender Information Value Date Recorded Sex Assigned at Not on file Legal Sex Female 5:42 AM DEVELOPMENT SPEC Gender Identity Not on file Sexual Orientation Not on file documented as of this encounter Plan of Treatment Not on file documented as of this encounter Visit Diagnoses Not on filedocumented in this encounter Additional Health Concerns Infection Onset Date Last Indicated Resolved Time 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
--- OUTSIDE RECORDS SUMMARY | 2024-08-08 16:05 | XMS_ITS | Encounter Summary ---
Author Organization [facility] Healthcare Address [address] [place] [address] Care Team Providers Care Spray Unit Feeder Name Role Phone Mook Koch MD Primary Care Provi franky Encounter Details Date Type Department Care Team (Late st Contact Info) Description 08/21/2006 6:42 PM AVIONICS SYSTEMS REPAIRER - 08/23/2006 6:00 PM AVIONICS SYSTEMS REPAIRER Hospital Encounter [facility] Mook Koch MD [address] [place] [address] Deni Moreno MD [address] [facility] [place] [address] Social History Tobacco Use Types Packs/Day Years Used Date Smoking Tobacco: Never Assessed Comments Unknown Sex and Gender Information Value Date Recorded Sex Assigned at Not on file Legal Sex Female 5:42 AM AVIONICS SYSTEMS REPAIRER Gender Identity Not on file Sexual Orientation Not on file documented as of this encounter Plan of Treatment Not on file documented as of this encounter Visit Diagnoses Not on filedocumented in this encounter Care Teams Spray Unit Feeder Relationship Specialty Start Date End Date Mook Koch MD PCP - General 08/21/06 09/02/06 documented as of this encounter
--- OUTSIDE RECORDS SUMMARY | 2024-08-08 16:05 | XMS_ITS | Encounter Summary ---
Author Organization [facility] Address [address] [place] [address] Phone Care Team Providers Care Rotary Drill Operator Helper Name Role Phone Lazarus Albert MD Primary Care Provider [phone] Encounter Details Date Type Department Care Team (Late st Contact Info) Description 04/05/2020 Telephone [facility] Surgery [address] [facility] Advanced Medicine 8th [place] [address] [place] [address] Jinny Castro RMA Social History Tobacco Use Types Packs/Day Years Used Date Smoking Tobacco: Former Cigarettes 2 12 E-cigarettes Smokeless Tobacco: Never Alcohol Use Standard Drinks/Week Comments Not Currently 0 (1 standard drink = 0.6 oz pur e alcohol) rarely Comments Unknown Sex and Gender Information Value Date Recorded Sex Assigned at Not on file Legal Sex Female 5:42 AM CUPOLA REPAIRER Gender Identity Not on file Sexual Orientation Not on file documented as of this encounter Miscellaneous Notes * Telephone Encounter - Jinny Castro MA - 04/05/2020 10:24 AM CDT Screened for tomorrow's appointment. 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
--- OUTSIDE RECORDS SUMMARY | 2024-08-08 16:05 | XMS_ITS | Encounter Summary ---
Author Organization [facility] Address [address] [place] [address] Phone Care Team Providers Care Track Leader Name Role Phone Lazarus Albert MD Primary Care Provider [phone] Reason for Visit * Reason Onset Date Comments RE: SURGERY TOMORROW 04/21/2020 Encounter Details Date Type Department Care Team (Late st Contact Info) Description 04/21/2020 Telephone [facility] Surgery [address] [facility] 8th [place] [address] [place] [address] Jinny Castro RMA RE: SURGERY TOMORROW Social History Tobacco Use Types Packs/Day Years Used Date Smoking Tobacco: Former Cigarettes 2 26.6 1 982 - 03/19/2008 E-cigarettes Smokeless Tobacco: Never Alcohol Use Standard Drinks/Week Comments Yes 0 (1 standard drink = 0.6 oz pur e alcohol) rarely Comments Unknown Sex and Gender Information Value Date Recorded Sex Assigned at Not on file Legal Sex Female 5:42 AM FINANCIAL ASSOCIATE Gender Identity Not on file Sexual Orientation Not on file documented as of this encounter Miscellaneous Notes * Telephone Encounter - Jinny Castro MA - 04/21/2020 1:38 PM CDT 04/21/2020 - REVIEWED ALL INSTRUCTIONS FOR SURGERY TOMORROW INCLUDING BOWEL PREP TODAY. 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
--- OUTSIDE RECORDS SUMMARY | 2024-08-08 16:05 | XMS_ITS | Encounter Summary ---
Author Organization [facility] Address [address] [facility] [address] [place] [address] Phone Care Team Providers Care Regional Sales Consultant Name Role Phone Lazarus Albert MD Primary Care Provider [phone] Encounter Details Date Type Department Care Team (Late st Contact Info) Description 04/11/2020 Orders Only [facility] Surgery [address] [facility] Advanced Medicine 8th [place] [address] [place] [address] Ari Partida MD [address] [facility] [phone] [place] [address] Social History Tobacco Use Types Packs/Day Years Used Date Smoking Tobacco: Former Cigarettes 2 12 E-cigarettes Smokeless Tobacco: Never Alcohol Use Standard Drinks/Week Comments Not Currently 0 (1 standard drink = 0.6 oz pur e alcohol) rarely Comments Unknown Sex and Gender Information Value Date Recorded Sex Assigned at Not on file Legal Sex Female 5:42 AM MULTISKILL OPERATOR Gender Identity Not on file Sexual Orientation Not on file documented as of this encounter Ordered Prescriptions Prescription Sig Dispense Quantity Refills Last Filled Start Date End Date ondansetron (ZOFRAN) 8 mg tablet TAKE ONE 8MG TABLET AT 11:00 AM AND THE OTHERS NEEDED FOR NAUSEA DAY PRIOR TO SURGERY. TAKE NO CLOSER THAN EVERY 4 HOURS 4 tablet 04/11/2020 0 polyethylene glycol (MIRALAX) 17 gram/dose powder MIX 225G WITH 64 OUNCES OF GATORADE AND FOLLOW THE WRITTEN BOWEL PREP INSTRUCTIONS FOR DAY PRIOR TO SURGERY 238 g 04/11/2020 0 bisacodyl EC (DULCOLAX EC) 5 mg EC tabletIndications :constipation TAKE TWO 5MG TABLETS AT 10:00 AM AND AT NOON DAY PRIOR TO SURGERY 4 tablet 04/11/2020 0 metroNIDAZOLE (FLAGYL) 500 mg tablet TAKE ONE 500MG TABLET AT 1:00 PM, 2:00 PM AND 10:00 PM DAY PRIOR TO SURGERY 3 tablet 04/11/2020 0 neomycin (MYCIFRADIN) 500 mg tablet TAKE ONE 500MG TABLET AT 1:00 PM, 2:00 PM AND 10:00 PM DAY PRIOR TO SURGERY 3 tablet 04/11/2020 0 documented in this encounter Plan of Treatment Not on file documented as of this encounter Procedures Procedure Name Priority Date/Time Associated Diagnosis Comments GLUCOSE, RANDOM (OUTREACH) STAT 05/01/2020 8:30 AM CDT DIFFERENTIAL AUTO STAT 05/01/2020 8:3 0 AM CDT BASIC METABOLIC PANEL WITHOUT GLUCOSE, PLASMA (OUTREACH) STAT 05/01/2020 8:30 AM CDT CBC WITH AUTO DIFFERENTIAL STAT 05/01/2020 8:30 AM CDT VANCOMYCIN LEVEL TROUGH STAT 05/01/2020 8:30 AM CDT documented in this encounter Results * Differential, auto (05/01/2020 8:30 AM CDT) Neutrophil abs 5.6 1.7 - 6.5 K/cumm [facility] Imm gran abs 0.0 0.0 - 0.1 K/cumm [facility] Lymphocyte abs 1.7 0.8 - 3.3 K/cumm [facility] Monocyte abs 0.5 0.2 - 0.8 K/cumm [facility] Eosinophil abs 0.2 0.0 - 0.5 K/cumm [facility] Basophil abs 0.0 0.0 - 0.1 K/cumm [facility] Neutrophil pct 70.3 % [facility] Comment: Interpretive Data Percent cell count reference ranges are not reported, since discordance with absolute values may lead to misinterpretation of CBC data. Current Interpretive Data was last revised on 2017. Imm gran pct 0.4 % [facility] Comment: Interpretive Data Percent cell count reference ranges are not reported, since discordance with absolute values may lead to misinterpretation of CBC data. Current Interpretive Data was last revised on 2017. Lymphocyte pct 21.0 % [facility] Comment: Interpretive Data Percent cell count reference ranges are not reported, since discordance with absolute values may lead to misinterpretation of CBC data. Current Interpretive Data was last revised on 2017. Monocyte pct 5.7 % [facility] Comment: Interpretive Data Percent cell count reference ranges are not reported, since discordance with absolute values may lead to misinterpretation of CBC data. Current Interpretive Data was last revised on 2017. Eosinophil pct 2.1 % [facility] Comment: Interpretive Data Percent cell count reference ranges are not reported, since discordance with absolute values may lead to misinterpretation of CBC data. Current Interpretive Data was last revised on 2017. Basophil pct 0.5 % [facility] Comment: Interpretive Data Percent cell count reference ranges are not reported, since discordance with absolute values may lead to misinterpretation of CBC data. Current Interpretive Data was last revised on 2017. Blood specimen (specimen) 05/01/2020 8:30 AM CDT 05/01/2020 12:31 PM CDT Danyel Colin MD LAB BLOOD ORDERABLES F inal Result [facility] Department [place] [address] * Vancomycin, trough (05/01/2020 8:30 AM CDT) Vancomycin trough 12.8 10.0 - 20.9 mcg/mL [facility] Blood specimen (specimen) 05/01/2020 8:30 AM CDT 05/01/2020 12:31 PM CDT us Danyel Colin MD LAB BLOOD ORDERABLES F inal Result [facility] Department [place] [address] * (ABNORMAL) CBC with auto differential (05/01/2020 8:30 AM CDT) Pathologist [facility] WBC 7.9 3.8 - 9.9 K/cumm [facility] Hgb 9.5(L) 11.9 - 15.5 g/dL [facility] Hct 30.4(L) 35.6 - 45.5 % [facility] Plt 424(H) 150 - 400 K/cumm [facility] MPV 9.1 9.1 - 12.3 fL [facility] RBC 3.30(L) 3.90 - 5.20 M/cumm [facility] MCV 92.1 81.3 - 96.4 fL [facility] MCH 28.8 27.1 - 33.3 pg [facility] MCHC 31.3(L) 32.3 - 35.7 g/dL [facility] RDW CV 14.9 11.1 - 14.9 % [facility] RDW SD 50.0(H) 35.7 - 48.1 fL [facility] NRBC abs 0.00 0.00 - 0.01 K/cumm [facility] Blood specimen (specimen) 05/01/2020 8:30 AM CDT 05/01/2020 12:31 PM CDT Danyel Colin MD LAB BLOOD ORDERABLES F inal Result [facility] One [facility] Department [place] [address] * Glucose, random (Outreach) (05/01/2020 8:30 AM CDT) Glucose 116 70 - 199 mg/dL [facility] Comment: Interpretive Data Fasting glucose [...] was last revised 2017. Blood specimen (specimen) 05/01/2020 8:30 AM CDT 05/01/2020 12:31 PM CDT Danyel Colin MD LAB BLOOD ORDERABLES F inal Result Performing Organization Address [facility] de Phone Number [facility] Department [place] [address] * (ABNORMAL) Basic metabolic panel without glucose (05/01/2020 8:30 AM CDT) [facility] Sodium 140 135 - 145 mmol/L [facility] Potassium, pl 3.0(L) 3.3 - 4.9 mmol/L [facility] Chloride 103 97 - 110 mmol/L [facility] CO2 28 22 - 32 mmol/L [facility] Anion gap 9 2 - 15 mmol/L [facility] BUN 7(L) 8 - 25 mg/dL [facility] Creatinine 0.67 0.60 - 1.10 mg/dL [facility] Calcium 9.4 8.5 - 10.3 mg/dL [facility] Blood specimen (specimen) 05/01/2020 8:30 AM CDT 05/01/2020 12:31 PM CDT Danyel Colin MD LAB BLOOD ORDERABLES F inal Result Performing Organization Address [facility] de Phone Number [facility] Department [place] [address] documented in this encounter Visit Diagnoses Not on filedocumented in this encounter Additional Health Concerns Infection Onset Date Last Indicated Resolved Time 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, nares 04/22/20; 01/18/21; urine 01/14/21 09/19/2019 02/09/2021 10/10/2021 4:00 AM MULTISKILL OPERATOR documented as of this encounter Care Teams Regional Sales Consultant Relationship Specialty Start Date End Date Lazarus Albert MD [address] [place] [address] PCP - General 09/25/19 03/04/24 documented as of this encounter
--- OUTSIDE RECORDS SUMMARY | 2024-08-08 16:05 | XMS_ITS | Encounter Summary ---
Author Organization [facility] Address [address] [place] [address] Phone Care Team Providers Care Inventory Checker Name Role Phone Lazarus Albert MD Primary Care Provider [phone] Reason for Visit * Reason Onset Date Comments CHECKING TIME FOR 01/20/2020 APPOINTMENT 020 Encounter Details Date Type Department Care Team (Late st Contact Info) Description 01/05/2020 Telephone [facility] Surgery [address] 8[address] [place] [address] [place] [address] Jinny Castro RMA CHECKING TIME FOR 01/20/2020 APPOINTMENT Social History Tobacco Use Types Packs/Day Years Used Date Smoking Tobacco: Former Cigarettes 2 12 E-cigarettes Smokeless Tobacco: Never Alcohol Use Standard Drinks/Week Comments Not Currently 0 (1 standard drink = 0.6 oz pur e alcohol) rarely Comments Unknown Sex and Gender Information Value Date Recorded Sex Assigned at Not on file Legal Sex Female 5:42 AM JACQUARD FIXER Gender Identity Not on file Sexual Orientation Not on file documented as of this encounter Miscellaneous Notes * Telephone Encounter - Jinny Castro MA - 01/05/2020 1:39 PM CDT Patient calling to check the time of her 01/20/2020 appointment. 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
--- OUTSIDE RECORDS SUMMARY | 2024-08-08 16:05 | XMS_ITS | Encounter Summary ---
Author Organization [facility] Address [address] [place] [address] Phone Care Team Providers Care Check Examiner Name Role Phone Lazarus Albert MD Primary Care Provider [phone] Reason for Visit * Reason Comments Abdominal Pain Encounter Details Date Type Department Care Team (Late st Contact Info) Description 10/07/2019 2:45 PM SAUSAGE STUFFER Office Visit [facility] Surgery [address] 8th [place] [address] [place] [address] Ari Partida MD [address] [facility] [phone] [place] [address] Infected prosthetic mesh of abdominal wall, subsequent encounter (Primary Dx); Open wound of abdominal wall w/o penetration into peritoneal cavity, subsequent encounter Social History Tobacco Use Types Packs/Day Years Used Date Smoking Tobacco: Former Cigarettes 2 12 E-cigarettes Smokeless Tobacco: Never Alcohol Use Standard Drinks/Week Comments Not Currently 0 (1 standard drink = 0.6 oz pur e alcohol) rarely Comments Unknown Sex and Gender Information Value Date Recorded Sex Assigned at Not on file Legal Sex Female 5:42 AM SAUSAGE STUFFER Gender Identity Not on file Sexual Orientation Not on file documented as of this encounter Last Filed Vital Signs Vital Sign Reading Time Taken Comments Blood Pressure 115/74 10/07/2019 3:08 PM SAUSAGE STUFFER Pulse 69 10/07/2019 3:08 PM SAUSAGE STUFFER Temperature 37 ??C (98.6 ??F) 10/07/2019 3:08 PM SAUSAGE STUFFER Respiratory Rate - - Oxygen Saturation - - Inhaled Oxygen Concentration - - Weight 60.7 kg (133 lb 12.8 oz) 10/07/2019 3:08 PM SAUSAGE STUFFER Height 163.8 cm (5' 4.5 ) 10/07/2019 3:08 PM SAUSAGE STUFFER Body Mass Index 22.61 10/07/2019 3:08 PM SAUSAGE STUFFER documented in this encounter Patient Instructions * Patient Instructions* Ari Partida MD - 10/07/2019 2:45 PM SAUSAGE STUFFER We will obtain records from [facility] and follow up with you for further surgical planning AGE STUFFER documented in this encounter Progress Notes * Ari Partida MD - 10/07/2019 2:45 PM CST [facility] Acute and Critical [facility] CAM outpatient progress note DATE OF SERVICE:10/07/19 Madison Jhonny Weinberg 1965 [id number] Daniel Aguayo MD has requested that I see Madison J Lenard in clinic for evaluation of Abdominal pain and infection of the midline wound. Encounter Diagnoses Name Primary? Infected prosthetic mesh of abdominal wall, subsequent encounter Yes ??? Open wound of abdominal wall w/o penetration into peritoneal cavity, subsequent encounter Chief complaint: Draining abdominal wall sinus History of Present Illness Ms. Weinberg is a 53 y.o. female here for evaluation of abdominal pain and draining lower midline wound. She has a complex medical history the started with surgery over 27 years ago endometriosis. Most recently she had multiple surgeries at the [facility] in [place]. She was seen there by Dr. Mehdi [...] 07 2019: Patient was started on clindamycin Past Medical History Past Medical History: Diagnosis Date ??? Anemia ??? Anxiety disorder Anxiety ??? DVT (deep venous thrombosis) (CMS/HCC) ??? HX OTHER MEDICAL Endometriosis-21 times ??? HX OTHER MEDICAL MANAGER POLICY ??? HX OTHER MEDICAL colon blockage ??? [...] file Gets together: Not on file Attends mandaen service: Not on file Active member of [...] mouth 3 (three) times a day ??? clindamycin (CLEOCIN) 300 mg capsule Take 1 capsule (300 mg total) by mouth 3 (three) times a day for 14 days 42 capsule 0 ??? clonazePAM (KlonoPIN) 1 mg tablet ??? [...] Physical Exam: Ht:163.8 cm (5' 4.5 ) Wt:60.7 kg (133 lb 12.8 oz) Body mass index is 22.61 kg/m??. BP 115/74 (BP Location: Left arm, Patient Position: Sitting) Pulse 69 Temp 37 ??C (98.6 ??F) Ht 163.8 cm (5' 4.5 ) Wt 60.7 kg (133 lb 12.8 oz) BMI 22.61 kg/m?? GENERAL- no acute distress, comfortable NEURO- [...] we are getting the records from the [facility] so that we can better understand when [...] at her next visit with Dr. Partida. I cannot see her operative report, will obtain and proceed with course of action based on operativereport May require mesh excision documented in this encounter Plan of Treatment Not on file documented as of this encounter Visit Diagnoses Diagnosis Infected prosthetic mesh of abdominal wall, subsequent encounter- Primary Open wound of abdominal wall w/o penetration into peritoneal cavity, subsequent encounter documented in this encounter Additional Health Concerns Infection Onset Date Last Indicated Resolved Time 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, nares 04/22/20; 01/18/21; urine 01/14/21 09/19/2019 02/09/2021 10/10/2021 4:00 AM SAUSAGE STUFFER documented as of this encounter Care Teams Check Examiner Relationship Specialty Start Date End Date Lazarus Albert MD [address] [facility] [place] [address] PCP - General 09/25/19 03/04/24 documented as of this encounter
== END 2024-08-01 11:12 | disposition home or self-care (01) ==
PROVIDERS: PCP Family Medicine; Visit Provider Urology
DX: M79.89 Other specified soft tissue disorders (principal)
CPT/HCPCS: 72197; A9577

== ENCOUNTER 2024-09-01 21:30 | Emergency (ER) | payer MEDICARE, MEDICAID, SELFPAY ==
--- NOTE | ~2024-09-01 | CT_ITS ---
CT of the Abdomen and Pelvis: Indication: Abdominal pain Technique: 2.5 mm axial scans were obtained through the abdomen and pelvis following intravenous adm inistration of 100 cc of Omnipaque 350. Dose reduction technique was used on this scan by utilizing a utomated exposure control and iterative reconstruction technique. The dose-length product (DLP) was 1 97.15 mGy-cm. COMPARISON: 05/28/2024 Findings: Scans through the lung bases are unremarkable. The liver, spleen, pancreas, gallbladder, adrenals and kidneys are within normal limits. There are at herosclerotic calcifications of the aorta. No lymphadenopathy. No bowel obstruction or bowel wall thickening. Evidence of prior partial colectomy with rectosigmoid anastomosis present. Images through the pelvis were performed. Urinary bladder unremarkable. No pelvic mass seen. No ascit es. Impression: No significant abnormalities seen. Reviewed, dictated and finalized at [facility]. COREMAKER Impression: No significant abnormalities seen.
[2024-09-01 21:34] VITALS: BP 185/99; PULSE 110; RESP 20; TEMP 37.1; O2SAT 100
[2024-09-01 22:35] LABS: BEDSIDEPREGUCG Negative (Negative)
[2024-09-01 22:36] VITALS: BP 162/110; PULSE 126; RESP 22; TEMP 36.4; O2SAT 99
--- NOTE | 2024-09-01 22:36 | PC.NURSE ---
Upon calling patient back to room ED 10 patient was eating a snack and drinking a soda. When nursing staff advised patient that she should not eat or drink anything until the work up is cleared by EDP patient replied I haven't eaten anything in two days . Patient was educated that if she was sent here for a suspected small bowel obstruction and is currently having abdominal pain then she should have not have any oral intake. When trying to start IV patient refuses any IV location other than the AC. Patient states you're not going there and they have to get the ultrasound . Patient proceeds to tell nurse that her anxiety is bad and hates needles. Patient states I have been out of my anxiety medicine and [place] said you guys could give me something for it . Notified EDP Dr. Zepeda.
[2024-09-01 22:39] LABS: Add Urine Microscopic? NO; Appearance Urine Clear (Clear); Bilirubin Urine Negative (Negative); Blood Urine Negative (Negative); Color Urine Yellow (Yellow); Glucose Urine UA Negative (Negative); Ketones Urine Negative (Negative); Leukocyte Esterase Ur Negative LEU/UL (Negative); Nitrate Urine Negative (Negative); Protein Urine Negative (Negative); Specific Grav Ur 1.011 (1.001-1.035); Urobilinogen Urine 0.2 mg/dL (<2.0); pH Urine 6.5 (5.0-9.0)
[2024-09-01 22:49] LABS: Basophils Absolute Auto 0.1 K/mm3 (0.0-0.1); Basophils Percent Auto 0.5 % (0.2-1.2); Eosinophils Absolute Auto 0.1 K/mm3 (0-0.3); Eosinophils Percent Auto 0.6 % (0-4.4); Hematocrit 40.6 % (37.0-47.0); Hemoglobin 13.5 g/dL (12.0-15.0); Immature Granulocyte Absolute 0.02 K/mm3 (0.00-0.031); Immature Granulocyte Percent A 0.2 % (0-0.5); Lymphocytes Absolute Auto 1.89 K/mm3 (0.9-3.2); Lymphocytes Percent Auto 18.7 % (18.3-44.2); Mean Corpuscular HGB Conc 33.3 g/dl (32-36); Mean Corpuscular Hemoglobin 30.8 pg (26-34); Mean Corpuscular Volume 92.7 fl (80-100); Mean Platelet Volume 9.7 fl (7.4-10.4); Monocytes Absolute Auto 0.6 K/mm3 (0.1-0.6); Monocytes Percent Auto 6.1 % (2.6-8.5); Neutrophils Absolute Auto 7.5 K/mm3 (1.3-6.7); Neutrophils Percent Auto 73.9 % (45.5-73.1); Platelet Count Result 438 k/mm3 (150-375); Red Blood Count 4.38 M/mm3 (4.2-5.4); Red Cell Distribution Width 12.7 % (11.5-14.5); White Blood Count 10.1 K/mm3 (4.5-10.0)
[2024-09-01 23:03] LABS: Alanine Aminotransferase 19 U/L (6-35); Albumin Level 4.5 g/dL (3.5-5.1); Alkaline Phosphatase 76 U/L (38-126); Anion Gap 10 mmol/L (4-12); Aspartate Amino Transferase 28 U/L (14-36); Bilirubin,Total 0.5 mg/dL (0.2-1.3); Blood Urea Nitrogen 15 mg/dL (7-17); Calcium 9.7 mg/dL (8.4-10.2); Carbon Dioxide 27 mmol/L (22-30); Chloride 102 mmol/L (98-107); Estimated CRCL calculation 35 ml/min; Estimated Glomerular Filt Rate 52; Glucose 102 mg/dL (65-110); Lipase 171 U/L (23-300); Potassium 3.5 mmol/L (3.4-5.0); Sodium 139 mmol/L (137-145)
--- NOTE | 2024-09-01 23:16 | ED.ABDPAIN ---
HPI - Abdominal Pain General Chief Complaint: Abdominal Pain Stated Complaint: abd pain Time Seen by Provider: 09/01/24 22:53 Source: patient Mode of arrival: ambulatory Limitations: no limitations History of Present Illness HPI narrative: This is a 58 year old female that presents to the ER for abdominal pain. Ongoing over the last couple of weeks. Reports she has not had a bowel movement. Reports extensive abdominal surgical history. Denies vomiting. Related Data Home Medications ?Medication ?Instructions ?Recorded ?Confirmed ?Last Taken ?Type Centrum Silver Women 1 tab-cap PO DAILY 09/04/23 06/25/24 05/19/24 History clonazepam 0.5 mg tablet (Klonopin) 0.5 mg PO TID 09/04/23 06/25/24 05/19/24 History cyclobenzaprine 10 mg tablet 10 mg PO TID 09/04/23 06/25/24 05/19/24 History docusate sodium 100 mg capsule 100 mg PO BID 09/04/23 06/25/24 05/19/24 History ondansetron 8 mg disintegrating 8 mg PO Q6H PRN Nausea And Vomiting 09/04/23 06/25/24 05/19/24 History tablet trazodone 150 mg tablet 150 mg PO HS PRN Sleep 09/04/23 06/25/24 05/19/24 History magnesium hydroxide 400 mg/5 mL 15 ml PO DAILY PRN Constipation 09/05/23 06/25/24 05/19/24 History oral suspension (Milk of Magnesia) polyethylene glycol 3350 17 17 g PO DAILY 09/05/23 06/25/24 05/19/24 History gram/dose oral powder (Miralax) clopidogrel 75 mg tablet 75 mg PO DAILY 05/20/24 06/25/24 05/15/24 History Allergies Allergy/AdvReac Type Severity Reaction Status Date / Time adhesive tape Allergy Rash Verified 05/28/24 20:53 bupropion (From Wellbutrin) AdvReac ALTERED Verified 05/28/24 20:53 MENTAL STATUS codeine AdvReac Itching Verified 05/28/24 20:53 diphenhydramine (From AdvReac Jittery Verified 05/28/24 20:53 Benadryl) duloxetine (From Cymbalta) AdvReac ALTERED Verified 05/28/24 20:53 MENTAL STATUS gabapentin AdvReac Confusion Verified 05/28/24 20:53 sertraline (From Zoloft) AdvReac Confusion Verified 05/28/24 20:53 Review of Systems Review of Systems: CONSTITUTIONAL: Denies fever GASTROINTESTINAL: Reports abdominal pain. Denies nausea, vomiting All systems reviewed & are unremarkable except as noted in HPI and below PMFSH Past Medical History Medical History (Updated 09/02/24 @ 01:37 by Sarita Cedeño PA-C) Lower abdominal pain History of histoplasmosis History of stroke SLU Chronic pain Constipation Hypotension Stenosis of right carotid artery 40% stenosis Bowel obstruction History of MRSA infection PONV (postoperative nausea and vomiting) Migraine Anxiety Endometriosis Osteoporosis Flank pain History of kidney stones Surgical History Surgical History History of pneumonectomy partial (left upper lobe) History of colostomy reversal History of colon resection History of hysterectomy History of abdominal surgery Family History Family History Unknown No problems noted. Mother Diabetes mellitus Heart disease Hypertension Mother No problems noted. Father Heart disease Hypertension Social History Social History Social History: Surrogate medical decision maker: Sarahy Fairchild, daughter. Code status: Full code. Smoking packs per day: 1.5 Smoking cigarettes per day: 30.0 Years smoked: 12 Smoking pack-years: 18.00 Smoking status: Former smoker Tobacco type: e-cigarettes/vaping Additional smoking assessment comments: Former smoker per chart. Belongings pt had 2 vapes. Pt intubated/sedated. Alcohol intake: current Drinks per week: 1 Alcohol use details: very rarely Substance use: current Substance use type: marijuana Other substance usage details: thc, has medical card Last use: 09/04/23 Do You Feel Safe in your Home?: Yes Lack of Transportation: No Lack of Food: Never True Current Housing: I Have Housing Concerned About Future Housing: No Difficulty Paying Gas/Electric Bills: No Difficulty Paying for Meds: No Currently Unemployed: No Education: High School Diploma/GED Difficulty w/ Childcare or Family Care: No Living arrangements: alone Spiritual care concerns: No Exam Narrative: GENERAL: Well-appearing, well-nourished, and in no acute distress. HEAD: Normocephalic, atraumatic. EYES: EOMI. CHEST: Clear to auscultation. No respiratory distress. No wheezes rales or rhonchi HEART: Regular rate and rhythm. No murmur heard. Normal peripheral pulses. ABDOMEN: Soft, nondistended, normal active bowel sounds. Tender to palpation throughout the abdomen, without guarding EXTREMITIES: Normal range of motion. No edema. SKIN: Warm, dry, no rash. NEURO: No focal deficits. Alert and oriented x3. PSYCH: Normal mood and affect Course Course Emergency Course: patient updated on her workup and agrees with plan of care Vital Signs Vital signs: Vital Signs Temperature 98.7 F 09/01/24 21:34 Pulse Rate 110 H 09/01/24 21:34 Respiratory Rate 20 09/01/24 21:34 Blood Pressure 185/99 H 09/01/24 21:34 Pulse Oximetry 100 09/01/24 21:34 Oxygen Delivery Room Air 09/01/24 21:34 Temperature 97.9 F 09/02/24 01:35 Pulse Rate 98 09/02/24 01:35 Respiratory Rate 18 09/02/24 01:35 Blood Pressure 161/95 H 09/02/24 01:35 Pulse Oximetry 99 09/02/24 01:35 Oxygen Delivery Room Air 09/01/24 21:34 MDM - Abdominal Pain MDM Narrative Medical decision making narrative: Patient presents the emergency department for abdominal pain, reporting abnormal bowel movements. History of small-bowel obstruction. She is afebrile and nontoxic appearing. Tachycardic upon arrival, this normalized with IV fluids. CBC with mild leukocytosis to 10.1. Metabolic panel with mild elevation in creatinine to 1.09. Urine without evidence of infection. CT abdomen pelvis without acute findings. patient updated on her workup and agrees with plan of care. She is to follow up with primary doctor. she was given warnings to return to the ER Differential Diagnosis Differential diagnosis: Likely calculus of kidney, constipation, diverticulitis and small bowel obstruction Lab Data Attestation: I reviewed the patient's lab results. 09/01/24 22:43 09/01/24 22:43 Labs: Lab Results 09/01/24 09/01/24 09/01/24 Range/Units 22:32 22:34 22:43 WBC 10.1 H (4.5-10.0) K/mm3 RBC 4.38 (4.2-5.4) M/mm3 Hgb 13.5 D (12.0-15.0) g/dL Hct 40.6 (37.0-47.0) % MCV 92.7 (80-100) fl MCH 30.8 (26-34) pg MCHC 33.3 (32-36) g/dl RDW 12.7 (11.5-14.5) % Plt Count 438 H D (150-375) k/mm3 MPV 9.7 (7.4-10.4) fl Immature Gran % (Auto) 0.2 (0-0.5) % Neut % (Auto) 73.9 H (45.5-73.1) % Lymph % (Auto) 18.7 (18.3-44.2) % [place] % (Auto) 6.1 (2.6-8.5) % Eos % (Auto) 0.6 (0-4.4) % Baso % (Auto) 0.5 (0.2-1.2) % Lymph # (Auto) 1.89 (0.9-3.2) K/mm3 [place]er # (Auto) 0.6 (0.1-0.6) K/mm3 Eos # (Auto) 0.1 (0-0.3) K/mm3 Baso # (Auto) 0.1 (0.0-0.1) K/mm3 Abs Immat Gran (auto) 0.02 (0.00-0.031) K/mm3 Absolute Neuts (auto) 7.5 H (1.3-6.7) K/mm3 Absolute Nucleated RBC 0.000 (0.0-0.012) K/mm3 Nucleated RBC % 0.0 (0.0-0.2) % Sodium 139 (137-145) mmol/L Potassium 3.5 (3.4-5.0) mmol/L Chloride 102 (98-107) mmol/L Carbon Dioxide 27 (22-30) mmol/L Anion Gap 10 (4-12) mmol/L BUN 15 D (7-17) mg/dL Creatinine 1.09 H (0.7-1.0) mg/dL Estim Creat Clear Calc 35 ml/min Estimated GFR 52 L (59 - ) Glucose 102 (65-110) mg/dL Calcium 9.7 (8.4-10.2) mg/dL Total Bilirubin 0.5 (0.2-1.3) mg/dL AST 28 (14-36) U/L ALT 19 (6-35) U/L Alkaline Phosphatase 76 (38-126) U/L Total Protein 8.0 (6.3-8.2) g/dL Albumin 4.5 (3.5-5.1) g/dL Lipase 171 (23-300) U/L Urine Color Yellow (Yellow) Urine Appearance Clear (Clear) Urine pH 6.5 (5.0-9.0) Ur Specific [place] 1.011 (1.001-1.035) Urine Protein Negative (Negative) mg/dL Urine Glucose (UA) Negative (Negative) mg/dL Urine Ketones Negative (Negative) mg/dL Ur Blood (Man) Negative (Negative) Urine Nitrate Negative (Negative) Urine Bilirubin Negative (Negative) Urine Urobilinogen 0.2 (<2.0) mg/dL Leukocyte Esterase Rfl Negative (Negative) ROLANDO/UL POC Urine HCG, Qual Negative (Negative) Imaging Data Radiologist's impression: CT abdomen pelvis: No acute findings Critical Care Time Critical Care Time Critical Care Time: No Discharge Plan Discharge Clinical Impression: Abdominal pain Qualifiers: Abdominal location: left lower quadrant Qualified Code(s): R10.32 - Left lower quadrant pain Patient Disposition: Home, Self-Care Condition: Stable Instructions: Constipation (ED), Abdominal Pain (ED) Additional Instructions: Return to the ER if you experience fever, abdominal pain with nausea and vomiting, you are unable to keep down liquids or solids or any other symptoms that are concerning to you Follow up with primary care doctor Patient Language: Kinyarwanda Prescriptions: No Action cyclobenzaprine 10 mg tablet 10 mg PO TID ondansetron 8 mg tablet,disintegrating 8 mg PO Q6H PRN (Reason: Nausea And Vomiting) trazodone 150 mg tablet 150 mg PO HS PRN (Reason: Sleep) docusate sodium 100 mg capsule 100 mg PO BID Centrum Silver Women 1 tab-cap PO DAILY clonazepam [Klonopin] 0.5 mg tablet 0.5 mg PO TID magnesium hydroxide [Milk of Magnesia] 400 mg/5 mL Suspension 15 ml PO DAILY PRN (Reason: Constipation) polyethylene glycol 3350 [Miralax] 17 gram/dose Powder 17 g PO DAILY clopidogrel 75 mg tablet 75 mg PO DAILY amoxicillin-pot clavulanate 875-125 mg tablet 1 tablet PO Q12H 4 Days Qty: 8 0RF Follow-up/Referrals: Fernando Chavez MD [Primary Care Provider] -
[2024-09-01] MEDS: SODIUM CHLORIDE 0.9% IV 1,000 ML 999 ML IV CONT (23:23)
[2024-09-01] MEDS: LORazepam INJ (*CRX) 2 MG/ML VIAL 0.5 MG IV PUSH (23:24)
--- NOTE | 2024-09-01 23:26 | PC.NURSE ---
Patient states that he is in pain. Notified EDP REHANA Garcia
[2024-09-02 00:15] VITALS: BP 127/89; PULSE 99; RESP 20; TEMP 36.7; O2SAT 97
[2024-09-02] MEDS: ONDANSETRON INJ 4 MG/2 ML VIAL IV PUSH ×2 (00:28→02:03)
[2024-09-02] MEDS: MORPHINE SULFATE (*CRX) 4 MG/ML INJ IV PUSH (00:29)
[2024-09-02 01:35] VITALS: BP 161/95; PULSE 98; RESP 18; TEMP 36.6; O2SAT 99
--- NOTE | 2024-09-02 02:02 | PC.NURSE ---
Upon discharge patient states she was vomiting. Notified EDP REHANA Garcia who VRBO 4mg Zofran IVP.
--- OUTSIDE RECORDS SUMMARY | 2024-09-03 20:37 | XMS_ITS | CONTINUITY OF CARE DOCUMENT ---
Author Name doyle kwno Address Unknown Organization [facility] Address [address] [place] [address] Phone [phone] Care Team Providers Care Sales Hunter Name Role Phone Iglesia Osorio MD Unavailable DONTE PAT MD Unavailable [phone] DONTE PAT MD Unavailable [phone] INSURANCE PROVIDERS Payer name Policy type / Coverage type [place] red [employer] party ID [facility] [id number]
--- OUTSIDE RECORDS SUMMARY | 2024-09-03 20:37 | XMS_ITS | Referral Summary ---
Author Organization [facility] Address [address] [place] [address] Care Team Providers Care Vp Name Role Phone Fernando Chavez MD Primary Care Provider Encounters Date Type Department Care Team Description 06/25/2024 1:22 AM FURNITURE REPAIR TECHNICIAN - 06/25/2024 11:59 PM FURNITURE REPAIR TECHNICIAN Hospital Encounter [facility] Emergency, Room [...] 07/02/2021 Assessment & Plan (07/02/2021 11:18 AM FURNITURE REPAIR TECHNICIAN): Pt's systolic blood pressure was noted to [...] metoprolol for now. Pt is contact her sanitation worker cleaning machinery tomorrow for further instructions. Fall 06/29/2021 Assessment & Plan (07/02/2021 11:10 AM FURNITURE REPAIR TECHNICIAN): Mechanical fall day prior to presentation with right hip pain. No prior history of hip pain. Xray of hip and knee were negative. Continue management with nonnarcotic meds. Home health referral made outpt. Assessment & Plan (07/01/2021 10:55 AM FURNITURE REPAIR TECHNICIAN): Mechanical fall day prior to presentation with right hip pain. No prior history of hip pain. Xray of hip and knee were negative. Continue management with nonnarcotic meds. PT consulted. Assessment & Plan (06/30/2021 11:54 AM FURNITURE REPAIR TECHNICIAN): Mechanical fall yesterday with right hip pain. No prior history of hip pain. Xray of hip and knee were negative. Continue management with nonnarcotic meds. PT consulted but pt refused to work with PT this morning. Assessment & Plan (06/29/2021 1:48 PM FURNITURE REPAIR TECHNICIAN): Mechanical fall yesterday with right hip pain. No prior history of hip pain. Xray of hip and knee were negative. Continue management with nonnarcotic meds. Acute hypoxemic respiratory failure 02/08/2021 Elevated troponin 01/14/2021 Atypical chest pain 01/14/2021 Assessment & Plan (07/02/2021 11:09 AM FURNITURE REPAIR TECHNICIAN): Troponins are negative. Continue to follow with sanitation worker cleaning machinery as outpatient. Assessment & Plan (07/01/2021 10:54 AM FURNITURE REPAIR TECHNICIAN): Troponins are negative. Continue to follow with sanitation worker cleaning machinery as outpatient. Assessment & Plan (06/30/2021 11:52 AM FURNITURE REPAIR TECHNICIAN): Troponins are negative. Continue to follow with sanitation worker cleaning machinery as outpatient. Assessment & Plan (06/29/2021 1:45 PM FURNITURE REPAIR TECHNICIAN): Troponins are negative. Continue to follow with sanitation worker cleaning machinery as outpatient. Hepatitis 01/14/2021 Tylenol overdose 01/14/2021 [...] (04/11/2020): Added automatically from request for surgery [id number] Assessment & Plan (07/02/2021 10:58 AM FURNITURE REPAIR TECHNICIAN): Please see constipation noted elsewhere. CT is otherwise unremarkable. Pt also has underlying chronic abdominal pain. Assessment & Plan (07/01/2021 10:53 AM FURNITURE REPAIR TECHNICIAN): Please see constipation noted elsewhere. CT is otherwise unremarkable. Pt also has underlying chronic abdominal pain. Assessment & Plan (06/30/2021 11:49 AM FURNITURE REPAIR TECHNICIAN): Please see constipation noted elsewhere. CT is otherwise unremarkable. Pt also has underlying chronic abdominal pain. Assessment & Plan (06/29/2021 1:48 PM FURNITURE REPAIR TECHNICIAN): Please see constipation noted elsewhere. CT is [...] NOS Assessment & Plan (07/02/2021 11:09 AM FURNITURE REPAIR TECHNICIAN): Continue home meds. Assessment & Plan (07/01/2021 10:53 AM FURNITURE REPAIR TECHNICIAN): Continue home meds. Assessment & Plan (06/30/2021 11:51 AM FURNITURE REPAIR TECHNICIAN): Continue home meds. Assessment & Plan (06/29/2021 1:46 PM FURNITURE REPAIR TECHNICIAN): Continue home meds. Assessment & Plan (04/23/2020 1:50 PM CDT): - home clonazepam 0.5mg BID Acute cerebrovascular insufficiency 12/26/2013 Overview (11/16/2016): AC CEREBROVASC INSUF NOS Constipation Assessment & Plan (07/02/2021 11:09 AM FURNITURE REPAIR TECHNICIAN): Pt's history and CT suggests this; no suggestion of bowel obstruction on CT. Continue bowel regimen and monitor for stools. Avoid narcotics; pt reports she is not on any narcotics at home. Mag citrate was tried per pt's request but this did not result in bm. She drank @ 2L of Golytely with good results. Assessment & Plan (07/01/2021 10:53 AM FURNITURE REPAIR TECHNICIAN): Pt's history and CT suggests this; no suggestion of bowel obstruction on CT. Continue bowel regimen and monitor for stools. Avoid narcotics; pt reports she is not on any narcotics at home. Mag citrate was tried yesterday per pt's request but this did not result in bm. She drank @ 2L of Golytely with good results. Assessment & Plan (06/30/2021 11:50 AM FURNITURE REPAIR TECHNICIAN): Pt's history and CT suggests this; no suggestion of bowel obstruction. Continue bowel regimen and monitor for stools. Avoid narcotics; pt reports she is not on any narcotics at home. Mag citrate was tried yesterday per pt's request but this did not result in bm. Plan is to place NG and give Golytely through this today. Assessment & Plan (06/29/2021 1:44 PM FURNITURE REPAIR TECHNICIAN): Pt's history and CT suggests this; no [...] often do you attend chur ch or faith services? 1 to 4 times per year 02/09/2021 Do you belong to any clubs o r organizations such as temple groups, unions, fraternal or athletic groups, or [...] on file Legal Sex Female 5:42 AM FURNITURE REPAIR TECHNICIAN Gender Identity Not on file Sexual [...] Not on file Insurance [employer] MEDICARE HMO [facility] CHOICE [facility] CHOICE [employer] MED[employer] HMO Advance Directives For more information, please contact: [phone] * Full Code (Latest Code Status on [...] 4:23 PM 04/28/2020 8:27 PM Care Teams Vp Relationship Specialty Start Date End Date Fernando Chavez MD [address] [place] [id number] PCP - General Family Medicine 03/05/24
--- OUTSIDE RECORDS SUMMARY | 2024-09-03 20:37 | XMS_ITS | Referral Summary ---
Author Organization [facility] Address [address] [place] [address] Care Team Providers Care Project Management Professor Name Role Phone Fernando Chavez MD Primary Care Provider Source Comments [facility],non-owned Affiliates and Associated Physician Practices is amultiple site organization consisting of ambulatory clinics and hospital sitesin [place], [place], [place] and [place]. This disclosure is being madepursuant to the Care Everywhere program and may not contain all information available regarding this patient. Last updated 18.[facility] Allergies Active Allergy Reactions Criticality Noted Date [...] Respiratory Rate 10 10/18/2023 11:1 1 AM [facility]IUM NITRATE CRYSTALLIZER Oxygen Saturation 98% 11/14/2023 3:18 PM CDT [...] Comments LIPID PROFILE Routine 09/06/2023 1:46 AM [facility] NITRATE CRYSTALLIZER from Last 3 Months or Most Recently Relevant to Health Maintenance Results * LIPID PROFILE (09/06/2023 1:46 AM AMMONI[facility] NITRATE CRYSTALLIZER) Cholesterol Total 144 <200 mg/dL 09/06/2023 3:28 AM [facility] HDL 42 >40 mg/dL 09/06/2023 3:28 AM [facility] Comment: ATP III Classification of HDL Cholesterol: ? <40 mg/dL: ??Considered a major risk factor. ? >60 mg/dL: ??Considered a negative risk factor. ? LDL Calculated 86 <100 mg/dL 09/06/2023 3:28 AM [facility] Comment: ATP III Classification of LDL Cholesterol: ?<100 mg/dL: ??Optimal ? 100 - 129 mg/dL: ??Near Optimal/Above Optimal ? 130 - 159 mg/dL: ??Borderline High ? 160 - 189 mg/dL: ??High ?>190 mg/dL: ??Very High ? Triglycerides 79 <150 mg/dL 09/06/2023 3:28 AM [facility] Comment: ATP III Classification of Triglycerides: ?<150 mg/dL: ??Normal ? 150 - 199 mg/dL: ??Borderline High ? 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
--- OUTSIDE RECORDS SUMMARY | 2024-09-03 20:37 | XMS_ITS | Clinical Summary ---
Author Organization [facility] Address [address] [place] [address] Care Team Providers Care Health Safety Coordinator Name Role Phone Fernando Chavez MD Primary Care Provider [phone] Allergies Active Allergy Reactions Criticality Noted Date [...] 07/02/2021 Assessment & Plan (07/02/2021 11:18 AM SHIRRER): Pt's systolic blood pressure was noted to [...] metoprolol for now. Pt is contact her chamber walker tomorrow for further instructions. Fall 06/29/2021 Assessment & Plan (07/02/2021 11:10 AM SHIRRER): Mechanical fall day prior to presentation with right hip pain. No prior history of hip pain. Xray of hip and knee were negative. Continue management with nonnarcotic meds. Home health referral made outpt. Assessment & Plan (07/01/2021 10:55 AM SHIRRER): Mechanical fall day prior to presentation with right hip pain. No prior history of hip pain. Xray of hip and knee were negative. Continue management with nonnarcotic meds. PT consulted. Assessment & Plan (06/30/2021 11:54 AM SHIRRER): Mechanical fall yesterday with right hip pain. No prior history of hip pain. Xray of hip and knee were negative. Continue management with nonnarcotic meds. PT consulted but pt refused to work with PT this morning. Assessment & Plan (06/29/2021 1:48 PM SHIRRER): Mechanical fall yesterday with right hip pain. No prior history of hip pain. Xray of hip and knee were negative. Continue management with nonnarcotic meds. Acute hypoxemic respiratory failure 02/08/2021 Elevated troponin 01/14/2021 Atypical chest pain 01/14/2021 Assessment & Plan (07/02/2021 11:09 AM SHIRRER): Troponins are negative. Continue to follow with chamber walker as outpatient. Assessment & Plan (07/01/2021 10:54 AM SHIRRER): Troponins are negative. Continue to follow with chamber walker as outpatient. Assessment & Plan (06/30/2021 11:52 AM SHIRRER): Troponins are negative. Continue to follow with chamber walker as outpatient. Assessment & Plan (06/29/2021 1:45 PM SHIRRER): Troponins are negative. Continue to follow with chamber walker as outpatient. Hepatitis 01/14/2021 Tylenol overdose 01/14/2021 [...] (04/11/2020): Added automatically from request for surgery [id number] Assessment & Plan (07/02/2021 10:58 AM SHIRRER): Please see constipation noted elsewhere. CT is otherwise unremarkable. Pt also has underlying chronic abdominal pain. Assessment & Plan (07/01/2021 10:53 AM SHIRRER): Please see constipation noted elsewhere. CT is otherwise unremarkable. Pt also has underlying chronic abdominal pain. Assessment & Plan (06/30/2021 11:49 AM SHIRRER): Please see constipation noted elsewhere. CT is otherwise unremarkable. Pt also has underlying chronic abdominal pain. Assessment & Plan (06/29/2021 1:48 PM SHIRRER): Please see constipation noted elsewhere. CT is [...] NOS Assessment & Plan (07/02/2021 11:09 AM SHIRRER): Continue home meds. Assessment & Plan (07/01/2021 10:53 AM SHIRRER): Continue home meds. Assessment & Plan (06/30/2021 11:51 AM SHIRRER): Continue home meds. Assessment & Plan (06/29/2021 1:46 PM SHIRRER): Continue home meds. Assessment & Plan (04/23/2020 1:50 PM CDT): - home clonazepam 0.5mg BID Acute cerebrovascular insufficiency 12/26/2013 Overview (11/16/2016): AC CEREBROVASC INSUF NOS Constipation Assessment & Plan (07/02/2021 11:09 AM SHIRRER): Pt's history and CT suggests this; no suggestion of bowel obstruction on CT. Continue bowel regimen and monitor for stools. Avoid narcotics; pt reports she is not on any narcotics at home. Mag citrate was tried per pt's request but this did not result in bm. She drank @ 2L of Golytely with good results. Assessment & Plan (07/01/2021 10:53 AM SHIRRER): Pt's history and CT suggests this; no suggestion of bowel obstruction on CT. Continue bowel regimen and monitor for stools. Avoid narcotics; pt reports she is not on any narcotics at home. Mag citrate was tried yesterday per pt's request but this did not result in bm. She drank @ 2L of Golytely with good results. Assessment & Plan (06/30/2021 11:50 AM SHIRRER): Pt's history and CT suggests this; no suggestion of bowel obstruction. Continue bowel regimen and monitor for stools. Avoid narcotics; pt reports she is not on any narcotics at home. Mag citrate was tried yesterday per pt's request but this did not result in bm. Plan is to place NG and give Golytely through this today. Assessment & Plan (06/29/2021 1:44 PM SHIRRER): Pt's history and CT suggests this; no suggestion of bowel obstruction. Continue bowel regimen and monitor for stools. Avoid narcotics; pt reports she is not on any narcotics at home. Encounters Date Type Department Care Team Description 06/25/2024 1:22 AM SHIRRER - 06/25/2024 11:59 PM SHIRRER Hospital Encounter [facility] Emergency, Room [...] Endometriosis-21 times Trigeminal neuralgia Colon obstruction (CMS/HCC) ([facility]) PONV (postoperative nausea and vomiting) IV medications [...] How often do you attend chur or samaritan services? 1 to 4 times per year [...] on file Legal Sex Female 5:42 AM SHIRRER Gender Identity Not on file Sexual Orientation [...] or Tdap) 07/20/202904/2019 Insurance [employer] MEDICARE HMO [facility] CHOICE [facility] CHOICE [employer] MED[employer] HMO Advance Directives For more information, please contact: [phone] * Full Code (Latest Code Status on [...] 4:23 PM 04/28/2020 8:27 PM Care Teams Health Safety Coordinator Relationship Specialty Start Date End Date Fernando Chavez MD [address] [place] [id number] PCP - General Family Medicine 03/05/24
--- OUTSIDE RECORDS SUMMARY | 2024-09-03 20:37 | XMS_ITS | Patient Health Summary ---
Author Organization [facility] Address [address] [place] [address] Care Team Providers Care Able Bodied Seaman Name Role Phone Fernando Chavez MD Primary Care Provider [phone] Note from [facility],non-owned Affiliates and Associated Physician Practices is amultiple site organization consisting of ambulatory clinics and hospital sitesin [place], [place], [place] and [place]. This disclosure is being madepursuant to the Care Everywhere program and may not contain all information available regarding this patient. Last updated 18.[facility] Allergies * Bupropion(Unknown) * Codeine(Itching) * Diphenhydramine(Unknown) [...] Respiratory Rate 10 10/18/2023 11:1 1 AM CLAIM EXAMINER Oxygen Saturation 98% 11/14/2023 3:18 PM CDT [...] IR CAROTID CEREBRAL ANGIOGRAM (09/27/2023 2:09 PM CLAIM EXAMINER) Anatomical Region Laterality Modality Head X-Ray Angiograph y 09/27/2023 1:55 PM CLAIM EXAMINER Impressions 10/01/2023 10:25 AM CLAIM EXAMINER Impression: 1. Severe flow-limiting stenosis of the proximal right subclavian artery measuring 90%. 2. The Right carotid artery supplies the right anterior circulation as well as right posterior circulation via a right SANDER MACHINE. There is no contribution from the left [...] evaluation, please review the evaluation forms in [facility]. For details on monitored clinical parameters during the intra-service sedation time, please review the procedure nurse documentation in [facility]. Timi Casillas MD have personally reviewed and interpreted this examination/study. > Interpreting Provider: Timi Mills MD on 10/01/2023 10:25 AM Narrative 10/01/2023 10:25 AM CLAIM EXAMINER PROCEDURE: ??IR CAROTID CEREBRAL ANGIOGRAM DATE/TIME OF [...] cerebral infarction.Vascular surgery consult of possible bypass. Supervisor Frame Sample And Pattern: Soham Mills Production Posting Clerk(s): Tanika Orourke Vessels: Ultrasound Guided Access of Femoral Artery Left Subclavian Artery Angiogram: Cervical and Cerebral Right Innominate Artery Angiogram: Cervical and Cerebral Left Common Carotid Artery Angiogram: Cervical and Cerebral Right Femoral Artery Angiogram Anesthesia: ??I, Dr. Julius Mills, was present for the entire duration of the procedure. Moderate sedation on this adult patient ws ordered by the ripening room operator, administered intravenously in my presence, and [...] patient evaluation, please review the evaluation in [facility]. For details on monitored clinical parameters during the intra-service sedation time, please review the procedure nurse documentation in [facility]. Procedural detail: The risks, benefits, and [...] Following a series of exchanges, a 6 [place] 30 cm Brite tip sheath was placed in the right femoral artery and a 5 [place] sim2 catheter was navigated into the aortic [...] system. Hemostasis was achieved using a 6 [place] Angio-Seal closure device. Hemostasis was immediate at [...] poor distal vessel opacification. A large right SANDER MACHINE is visualized. The right carotid artery supplies the right anterior circulation as well as right posterior circulation via a right SANDER MACHINE. The right vertebral artery is non-dominant with [...] cerebral infarction.Vascular surgery consult of possible bypass. Supervisor Frame Sample And Pattern: Soham Mills Production Posting Clerk(s): Tanika Orourke Vessels: Ultrasound Guided Access of Femoral Artery Left Subclavian Artery Angiogram: Cervical and Cerebral Right Innominate Artery Angiogram: Cervical and Cerebral Left Common Carotid Artery Angiogram: Cervical and Cerebral Right Femoral Artery Angiogram Anesthesia: I, Dr. Julius Mills, was present for the entire duration ofthe procedure. Moderate sedation on this adult patient ws ordered by the ripening room operator, administered intravenously in my presence, and [...] patient evaluation, please review the evaluation in [facility]. For details on monitored clinical parameters during theintra-service sedation time, please review the procedure nurse documentation in [facility]. Procedural detail: The risks, benefits, and [...] documented. Following aseries of exchanges, a 6 [place] 30 cm Brite tip sheath was placed in the right femoral artery and a 5 [place] sim2 catheter was navigated into theaortic arch. [...] arterial system.Hemostasis was achieved using a 6 [place] Angio-Seal closure device. Hemostasis was immediate at [...] poor distal vessel opacification. A large right SANDER MACHINE is visualized. The right carotid artery supplies the right anterior circulation as well as right posterior circulation via a right SANDER MACHINE. The right vertebral artery is non-dominant with [...] as right posterior circulation via a right SANDER MACHINE. There is no contribution from the left carotid system. 3. The right AICA-PICA receives a majority of flow from the dominantleft vertebral artery system I, Dr. Timi Mills, was present and performed/supervised theentire procedure. Moderate sedation on this adult patient was ordered by me, administered intravenously in my presence, and [facility] as an independent trained observer who was present throughout the procedure. The following parameters were monitored: oxygen saturation, heart rate, blood pressure, and response to care. For details on pre-moderate sedation and post-moderate sedation patient evaluation,please review the evaluation forms in [facility]. For details on monitored clinical parameters during the intra-service sedation time, please review the procedure nurse documentation in [facility]. ITimi MD have personally reviewed and interpreted this examination/study. > Interpreting Provider: Timi Mills MD on 10/01/2023 10:25 AM Joseluis Bear MD IR ORDERABLES * (ABNORMAL) PTT [facility] (09/27/2023 9:29 AM CLAIM EXAMINER) Only the most recent of12 resultswithin the time period is included. APTT 57.9(H) 23.0 - 38.4 Seconds 09/27/2023 10:25 AM [facility] Comment:Suggested therapeuti c range for full dose I.V. unfractionated heparin therapy for venous thromboembolism is 71 to 109 seconds. Blood BLOOD SPECIMEN / Unknown Lab Venipuncture / Unknown 09/27/2023 9:29 AM CLAIM EXAMINER 09/27/2023 10:01 AM CLAIM EXAMINER Joseluis Bear MD LAB - COAGULATION OR DERABLES Performing Organization Address [facility]/ZIP Co de Phone Number [facility] [address] [place] [phone], [facility] [phone] * PT-INR [facility] (09/27/2023 1:50 AM CLAIM EXAMINER) Only the most recent of6 resultswithin the time period is included. PT 13.9 12.1 - 14.8 Seconds 09/27/2023 2:38 AM CLAIM EXAMINER [facility] INR 1.1 See Comment 09/27/2023 2:38 AM [facility] Comment:The suggested therap eutic range for standard coumadin (warfarin) therapy is an INR of 2.0-3.0. For high-risk patients (Mechanical Mitral Valve Prosthesis, etc.), the suggested prophylactic therapeutic range is an INR of 2.5-3.5. Blood BLOOD SPECIMEN / Unknown Lab Venipuncture / Unknown 09/27/2023 1:50 AM CLAIM EXAMINER 09/27/2023 2:11 AM CLAIM EXAMINER Joseluis Bear MD LAB - COAGULATION OR DERABLES [facility] [address] [place] [phone], [place] [phone] * CBC W AUTO DIFFERENTIAL (09/27/2023 1:50 AM [facility]) Only the most recent of6 resultswithin the time period is included. WBC 7.0 4.0 - 10.7 x10E9/L 09/27/2023 2:07 AM [facility] RBC Count 3.96 3.90 - 5.20 x10E12/L 09/27/2023 2:07 AM [facility] Hemoglobin 12.0 11.9 - 15.8 g/dL 09/27/2023 2:07 AM [facility] Hematocrit 35.1 34.8 - 46.1 % 09/27/2023 2:07 AM [facility] MCV 88.6 80.0 - 98.0 fL 09/27/2023 2:07 AM [facility] MCH 30.3 26.7 - 33.6 pg 09/27/2023 2:07 AM [facility] MCHC 34.2 31.7 - 36.3 g/dL 09/27/2023 2:07 AM [facility] RDW-CV 12.5 11.3 - 14.8 % 09/27/2023 2:07 AM [facility] Platelet Count 334 150 - 420 x10E9/L 09/27/2023 2:07 AM [facility] MPV 9.6 7.8 - 11.4 fL 09/27/2023 2:07 AM [facility] Neutrophil % 55.4 41.0 - 74.0 % 09/27/2023 2:07 AM [facility] Lymphocyte % 33.0 17.0 - 47.0 % 09/27/2023 2:07 AM [facility] Monocyte % 8.0 3.0 - 11.0 % 09/27/2023 2:07 AM [facility] Eosinophil % 2.9 0.0 - 7.0 % 09/27/2023 2:07 AM [facility] Basophil % 0.6 0.0 - 1.6 % 09/27/2023 2:07 AM [facility] Immature Granulocytes % 0.1 0.0 - 1.0 % 09/27/2023 2:07 AM CLAIM EXAMINER [facility] Neutrophil Absolute 3.85 1.60 - 7.50 x10E9/L 09/27/2023 2:07 AM CLAIM EXAMINER [facility] Lymphocyte Absolute 2.30 1.00 - 4.40 x10E9/L 09/27/2023 2:07 AM [facility] Monocyte Absolute 0.56 0.15 - 1.00 x10E9/L 09/27/2023 2:07 AM [facility] Eosinophil Absolute 0.20 0.00 - 0.60 x10E9/L 09/27/2023 2:07 AM [facility] Basophil Absolute 0.04 0.00 - 0.13 x10E9/L 09/27/2023 2:07 AM [facility] Blood BLOOD SPECIMEN / Unknown Lab Venipuncture / Unknown 09/27/2023 1:50 AM CLAIM EXAMINER 09/27/2023 2:00 AM CLAIM EXAMINER Joseluis Bear MD LAB - HEMATOLOGY ORD ERABLES [facility] [address] [place] [phone], [facility] [phone] * VAS ARTERIAL ANKLE ARM INDEX (09/26/2023 8:21 AM CLAIM EXAMINER) Anatomical Region Laterality Modality Ankle / Foot, Upper Extremity In travascular Ultrasound 09/26/2023 7:38 AM CLAIM EXAMINER Narrative Procedure Note Kennedy Romero MD - 09/26/2023 Joseluis Bear MD VASCULAR LAB ORDERAB LES * CARDIAC EKG ORDER (09/25/2023 2:19 PM CLAIM EXAMINER) Narrative 09/25/2023 2:19 PM CLAIM EXAMINER Ordered by an unspecified provider. Scanned Document CARDIAC SERVICES ORD ERABLES * MRI BRAIN WO CONTRAST (09/24/2023 3:47 PM CLAIM EXAMINER) Only the most recent of2 resultswithin the time period is included. Anatomical Region Laterality Modality Head Magnetic Resonan ce 09/24/2023 3:51 PM CLAIM EXAMINER Impressions 09/25/2023 8:24 AM CLAIM EXAMINER IMPRESSION: 1. No evidence of acute cerebral [...] 09/25/2023 8:24 AM Narrative 09/25/2023 8:24 AM CLAIM EXAMINER PROCEDURE: ??MRI BRAIN WO CONTRAST DATE/TIME OF [...] VAS TRANSCRANIAL DOPPLER COMP (09/24/2023 2:15 PM CLAIM EXAMINER) Only the most recent of2 resultswithin the time period is included. Anatomical Region Laterality Modality Head Intravascular Ul trasound 09/24/2023 12:3 6 PM CLAIM EXAMINER Narrative Procedure Note Timi Mills MD - 10/10/2023 Joseluis Bear MD VASCULAR LAB ORDERAB LES * VAS CAROTID DUPLEX BILATERAL (09/24/2023 2:14 PM CLAIM EXAMINER) Only the most recent of2 resultswithin the time period is included. Anatomical Region Laterality Modality Neck Intravascular Ul trasound 09/24/2023 12:5 3 PM CLAIM EXAMINER Narrative Procedure Note Mark Salmeron MD - 09/24/2023 Joseluis Bear MD VASCULAR LAB ORDERAB LES * TROPONIN-I HIGH SENSITIVE REFLEX 1HOUR (09/24/2023 5:45 AM CLAIM EXAMINER) Only the most recent of2 resultswithin the time period is included. Pathologist [facility] Troponin I High Sensitive <3 <=14 ng/L 09/24/2023 7:39 AM CLAIM EXAMINER [facility] Delta Troponin I HS 09/24/2023 7:39 AM [facility] Comment:Result exceeds linea rity range. A delta value is unable to be calculated. Blood BLOOD SPECIMEN / Unknown Venipuncture / Unknown 09/24/2023 5:45 AM CLAIM EXAMINER 09/24/2023 6:44 AM CLAIM EXAMINER Clayton Frazier MD LAB - CHEMISTRY JOSH CALVO [facility] Organization Address City/State/ZIP Co de Phone Number [facility] [address] [place] [phone], [facility] [phone] * EKG 12-LEAD (09/24/2023 5:21 AM CLAIM EXAMINER) Only the most recent of2 resultswithin the time period is included. Ventricular Rate 61 BPM [facility] MUSE Atrial Rate 61 BPM [facility] MUSE P-R Interval 158 ms [facility] M[facility] QRS Duration ms 76 ms [facility] MUSE Q-T Interval ms 484 ms [facility] MUSE QTC Calculation (Bezet) 487 ms [facility] MUSE Calculated P Clarkson 75 degrees [facility] MUSE Calculated R Clarkson 84 degrees [facility] MUSE Calculated T Clarkson 88 degrees SL MUSE Interpretation EKG SINUS RHYTHM WITH MARKED SINUS ARRYTHMIA NONSPECIFIC T WAVE ABNORMALITY PROLONGED QT ABNORMAL ECG WHEN COMPARED WITH ECG OF 18-SEP-2023 14:24, T WAVE INVERSION NOW EVIDENT IN ANTERIOR LEADS Confirmed by MICHAEL CRISTOBAL MD ([id number]) on 09/28/2023 9:49:30 AM [facility] MUSE 09/24/2023 5:21 AM CLAIM EXAMINER 09/28/2023 9:49 AM CLAIM EXAMINER Clayton Frazier MD ECG ORDERABLES [facility] MUSE * CT ANGIO BRAIN NECK STROKE (09/24/2023 4:35 AM CLAIM EXAMINER) Anatomical Region Laterality Modality Head Computed Tomogra phy 09/24/2023 4:47 AM CLAIM EXAMINER Impressions 09/24/2023 10:43 AM CLAIM EXAMINER IMPRESSION: 1.No significant change since prior. 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 3.Severe stenosis of the origin of the right subclavian artery is again noted. 4.Otherwise, no large arterial occlusions or significant stenoses identified in the head or neck. Viz.AI was used for large vessel occlusion detection. > Dictated by Dutch Morales DO (residential door unit installer). I, Lay Chaudhry MD have personally reviewed and interpreted this examination/study. > Interpreting Provider: Lay Chaudhry MD on 09/24/2023 10:43 AM Narrative 09/24/2023 10:43 AM CLAIM EXAMINER PROCEDURE: ??CT ANGIO BRAIN NECK STROKE, DATE/TIME OF EXAM: ??09/24/2023 5:19 AM, LOCATION ??[facility] INDICATION: Code Stroke ADDITIONAL CLINICAL INFORMATION: [...] STROKE, DATE/TIME OF EXAM: :19 AM, LOCATION [facility] INDICATION: Code Stroke ADDITIONAL CLINICAL INFORMATION: [...] detection. > Dictated by Dutch Morales DO (residential door unit installer). I, Lay Chaudhry MD have personally reviewed and interpretedthis examination/study. > Interpreting Provider: Lay Chaudhry MD on 09/24/2023 10:43 AM Clayton Frazier MD CT ORDERABLES * TROPONIN-I HIGH SENSITIVE BASELINE + 1HR (09/24/2023 4:30 AM CLAIM EXAMINER) Only the most recent of2 resultswithin the time period is included. [facility] Troponin I High Sensitive <3 <=14 ng/L 09/24/2023 5:16 AM CLAIM EXAMINER [facility] Blood BLOOD SPECIMEN / Unknown Venipuncture / Unknown 09/24/2023 4:30 AM CLAIM EXAMINER 09/24/2023 4:37 AM CLAIM EXAMINER Clayton Frazier MD LAB - CHEMISTRY ORDJonh CALVO Performing Organization Address City/[facility]/ZIP Co de Phone Number [facility] [address] [place] [phone], [facility] [phone] * TYPE + SCREEN PANEL (09/24/2023 4:30 AM CLAIM EXAMINER) Only the most recent of2 resultswithin the time period is included. [facility] Antibody Screen NEG 5:14 AM CLAIM EXAMINER [facility] ABO Rh A NEG 09/24/2023 5:14 AM CLAIM EXAMINER [facility] Blood Bank BLOOD SPECIMEN / Unknown Venipuncture / Unknown 09/24/2023 4:30 AM CLAIM EXAMINER 09/24/2023 4:37 AM CLAIM EXAMINER Clayton Frazier MD LAB - BLOOD BANK ORD HANK Performing Organization Address City/[facility]/ZIP Co de Phone Number [facility] [address] [place] [phone], [place] [phone] * (ABNORMAL) COMPREHENSIVE METABOLIC PANEL (09/24/2023 4:30 AM CLAIM EXAMINER) [facility] BUN 16 7 - 26 mg/dL 09/24/2023 5:10 AM [facility] Creatinine 0.91 0.56 - 0.96 mg/dL 09/24/2023 5:10 AM [facility] Sodium 141 136 - 145 mmol/L 09/24/2023 5:10 AM [facility] Potassium 3.9 3.5 - 4.5 mmol/L 09/24/2023 5:10 AM [facility] Comment:Hemolysis detected i n this specimen. Hemolysis may cause false elevations in potassium leading to pseudohyperkalemia or masked hypokalemia. Recommend repeat testing if clinically indicated. Chloride 107 98 - 107 mmol/L 09/24/2023 5:10 AM [facility] CO2 24 22 - 29 mmol/L 09/24/2023 5:10 AM [facility] Glucose 77 70 - 115 mg/dL 09/24/2023 5:10 AM [facility] Calcium 9.4 8.4 - 10.2 mg/dL 09/24/2023 5:10 AM [facility] Protein Total 7.7 6.0 - 8.3 g/dL 09/24/2023 5:10 AM [facility] Comment:Hemolysis detected i n this specimen. Hemolysis is known to cause elevations in this analyte. Caution should be exercised in the interpretation of this result. Recommend repeat testing if clinically indicated. Albumin 4.2 3.4 - 5.0 g/dL 09/24/2023 5:10 AM [facility] Bilirubin Total 0.3 0.2 - 1.2 mg/dL 09/24/2023 5:10 AM [facility] Alkaline Phosphatase 93 40 - 150 U/L 09/24/2023 5:10 AM [facility] ALT 18 5 - 55 U/L 09/24/2023 5:10 AM [facility] AST 34 5 - 34 U/L 09/24/2023 5:10 AM [facility] Comment:Hemolysis detected i n this specimen. Hemolysis is known to cause elevations in this analyte. Caution should be exercised in the interpretation of this result. Recommend repeat testing if clinically indicated. Anion Gap 10 6 - 16 09/24/2023 5:10 AM [facility] BUN/Creatinine Ratio 18 7 - 23 09/12 5:10 AM [facility] Osmolality Calculated 292 275 - 295 mOsm/kg 09/24/2023 5:10 AM [facility] Albumin/Globulin Ratio 1.2 1.1 - 2.3 5:10 AM [facility] eGFR by CKD-EPI 74(L) >=90 mL/min/1. 73 m2 09/24/2023 5:10 AM [facility] Blood BLOOD SPECIMEN / Unknown Venipuncture / Unknown 09/24/2023 4:30 AM CLAIM EXAMINER 09/24/2023 4:37 AM CLAIM EXAMINER Clayton Frazier MD LAB - CHEMISTRY ORDJonh CALVO [address] [address], [facility] [phone] * INR WHOLE BLOOD - POINT OF CARE (IP) STROKE (09/24/2023 4:28 AM [facility]) INR 1.0 0.9 - 1.2 09/25/2023 11:05 AM [facility] Device [id number] 09/25/2023 11:05 AM [facility] Supervisor Frame Sample And Pattern ID [id number] 09/25/2023 11:05 AM [facility] Blood BLOOD SPECIMEN / Unknown 09/24/2023 4:28 AM CLAIM EXAMINER 09/25/2023 11:05 AM CLAIM EXAMINER Provider Unknown LAB - POINT OF CARE ORDERABLES [address] [address], [place] [phone] * (ABNORMAL) CREATININE - POCT INTERFACED (09/24/2023 4:27 AM [facility]) Creatinine POCT 0.78 0.30 - 1.30 mg/dL 09/25/2023 4:00 PM [facility] eGFR 89(L) >90 mL/min/1.7 3 m2 09/25/2023 4:00 PM [facility] Blood BLOOD SPECIMEN / Unknown 09/24/2023 4:27 AM CLAIM EXAMINER 09/25/2023 4:00 PM CLAIM EXAMINER Provider Unknown LAB - POINT OF CARE ORDERABLES Performing Organization Address [facility]/ZIP Co de Phone Number [address] [address], [facility] [phone] * GLUCOSE - POINT OF CARE (09/24/2023 4:14 AM CLAIM EXAMINER) Only the most recent of5 resultswithin the time period is included. Glucose WB/POC 105 70 - 115 mg/dL 09/24/2023 4:18 AM CLAIM EXAMINER [facility] Specimen Type Cap Fingerstick 2023 4:18 AM CLAIM EXAMINER [facility] Blood BLOOD SPECIMEN / Unknown 09/24/2023 4:14 AM CLAIM EXAMINER 09/24/2023 4:18 AM CLAIM EXAMINER Provider Unknown LAB - POINT OF CARE ORDERABLES Performing Organization Address [facility]/ZIP Co de Phone Number [address] [address], [facility] [phone] * CT BRAIN - Stroke (09/24/2023 4:07 AM CLAIM EXAMINER) Anatomical Region Laterality Modality Head Computed Tomogra phy 09/24/2023 7:04 AM CLAIM EXAMINER Impressions 09/24/2023 10:33 AM CLAIM EXAMINER IMPRESSION: 1.No acute intracranial hemorrhage. 2.Please note that CT is insensitive to nonhemorrhagic strokes and MRI should be considered if there is clinical concern for acute infarction. 3.Fundus examination is recommended to exclude papilledema and/or the possibility of idiopathic intracranial hypertension (IIH). > Dictated by Theo Hebert DO (technical operations vice president) Lay Casillas MD have personally reviewed and interpreted this examination/study. > Interpreting Provider: Lay Chaudhry MD on 09/24/2023 10:33 AM Narrative 09/24/2023 10:33 AM CLAIM EXAMINER PROCEDURE: ??CT BRAIN STROKE, DATE/TIME OF EXAM: ??09/24/2023 4:14 AM, LOCATION ??[facility] INDICATION: Code Stroke EXAMINATION: Computed tomography [...] DATE/TIME OF EXAM: 09/24/2023 4:14 AM, LOCATION [facility] INDICATION: Code Stroke EXAMINATION: Computed tomography [...] (IIH). > Dictated by Theo Hebert DO (technical operations vice president) Lay Casillas MD have personally reviewed and interpretedthis examination/study. > Interpreting Provider: Lay Chaudhry MD on 09/24/2023 10:33 AM Clayton Frazier MD CT ORDERABLES * SARS-COV-2 (COVID-19) RAPID (09/07/2023 12:13 PM CLAIM EXAMINER) Pathologist [facility] COVID-19 PCR Not detected Not detected 09/07/19 12:57 PM CLAIM EXAMINER [facility] Microbiology SPECIMEN FROM NASOPHARYNGEAL STRUCTURE / Unknown Collection / Unknown 09/07/2023 12:13 PM CLAIM EXAMINER 09/07/2023 12:22 PM CLAIM EXAMINER Narrative [facility] - 09/07/2023 12:57 PM CLAIM EXAMINER The Cepheid Xpert Xpress SARS-COV-2 has been [...] EUA assay are available upon request. Manuel ePña MD LAB - MICROBIOLOGY O THAD [address] [address], [facility] [phone] * (ABNORMAL) BASIC METABOLIC PANEL (CALCIUM TOTAL) (09/07/2023 6:38 AM CLAIM EXAMINER) Only the most recent of2 resultswithin the time period is included. Pathologist [facility] BUN 9 7 - 26 mg/dL 09/07/2023 7:57 AM [facility] Creatinine 0.88 0.56 - 0.96 mg/dL 09/07/2023 7:57 AM [facility] Sodium 140 136 - 145 mmol/L 09/07/2023 7:57 AM [facility] Potassium 3.1(L) 3.5 - 4.5 mmol/L 09/07/2023 7:57 AM [facility] Chloride 107 98 - 107 mmol/L 09/07/2023 7:57 AM [facility] CO2 24 22 - 29 mmol/L 09/07/2023 7:57 AM [facility] Glucose 98 70 - 115 mg/dL 09/07/2023 7:57 AM [facility] Calcium 9.1 8.4 - 10.2 mg/dL 09/07/2023 7:57 AM [facility] Anion Gap 9 6 - 16 09/07/2023 7:57 AM [facility] BUN/Creatinine Ratio 10 7 - 23 09/07/2023 7:57 AM [facility] Osmolality Calculated 289 275 - 295 mOsm/kg 09/07/2023 7:57 AM [facility] eGFR by CKD-EPI 77(L) >=90 mL/min/1.7 3 m2 09/07/2023 7:57 AM [facility] Blood BLOOD SPECIMEN / Unknown Lab Venipuncture / Unknown 09/07/2023 6:38 AM CLAIM EXAMINER 09/07/2023 7:30 AM [facility] Timi Mills MD LAB - CHEMISTRY ORD ERABLES [facility] [address] [place] [address], [facility] [phone] * PHOSPHORUS BLOOD (09/07/2023 6:38 AM [facility]) Only the most recent of2 resultswithin the time period is included. Phosphorus 3.6 2.9 - 5.1 mg/dL 09/07/2023 7:57 AM [facility] Blood BLOOD SPECIMEN / Unknown Lab Venipuncture / Unknown 09/07/2023 6:38 AM CLAIM EXAMINER 09/07/2023 7:30 AM CLAIM EXAMINER Timi Mills MD LAB - CHEMISTRY ORD ERABLES Performing Organization Address City/[facility]/ZIP Co de Phone Number [address] [address], [facility] [phone] * MAGNESIUM BLOOD (09/07/2023 6:38 AM CLAIM EXAMINER) Only the most recent of2 resultswithin the time period is included. Magnesium 1.6 1.6 - 2.6 mg/dL 09/07/2023 7:57 AM CLAIM EXAMINER [facility] Blood BLOOD SPECIMEN / Unknown Lab Venipuncture / Unknown 09/07/2023 6:38 AM CLAIM EXAMINER 09/07/2023 7:30 AM CLAIM EXAMINER Timi Mills MD LAB - CHEMISTRY ORD ERABLES Performing Organization Address [facility] Co de Phone Number [address] [address], [facility] [phone] * CT ANGIO BRAIN AND NECK (09/06/2023 3:30 PM CLAIM EXAMINER) Anatomical Region Laterality Modality Head Computed Tomogra phy 09/06/2023 3:32 PM CLAIM EXAMINER Impressions 09/06/2023 3:41 PM CLAIM EXAMINER IMPRESSION: 1. No acute intracranial hemorrhage. 2. No large arterial occlusions or significant stenoses identified in the head or neck. Scattered atherosclerotic disease in the neck arteries. 3. 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 > Interpreting Provider: Romi Dutton MD on 09/06/2023 3:41 PM Narrative 09/06/2023 3:41 PM CLAIM EXAMINER PROCEDURE: ??CT ANGIO BRAIN AND NECK, DATE/TIME OF EXAM: ??09/06/2023 3:30 PM, LOCATION ??[facility] INDICATION: G45.9: TIA (transient ischemic attack) [...] NECK, DATE/TIME OF EXAM: 09/06/2023 3:30PM, LOCATION [facility] INDICATION: G45.9: TIA (transient ischemic attack) [...] COLOR FLOW AND DOPPLER (09/06/2023 10:11 AM CLAIM EXAMINER) BSA [id number] m2 [facility] CV FUJ I PACS LV [...] 1.2 cm [facility] CV FUJ I PACS [id number] 4.285 cm [facility] CV FUJ I PACS [id number] 4.463 cm [facility] CV FUJ I PACS [...] Laterality Modality Ultrasound Narrative 09/06/2023 10:58 AM CLAIM EXAMINER ?Left??Ventricle: Left ventricle size is normal. Mildly [...] CT HEAD WO CONTRAST (09/06/2023 4:04 AM CLAIM EXAMINER) Anatomical Region Laterality Modality Head Computed Tomogra phy 09/06/2023 8:41 AM CLAIM EXAMINER Impressions 09/06/2023 9:03 AM CLAIM EXAMINER IMPRESSION: 1.No acute intracranial hemorrhage. > Dictated by Chriss Hebert DO (residential door unit installer). I, Lay Chaudhry MD have personally reviewed and interpreted this examination/study. > Interpreting Provider: Lay Chaudhry MD on 09/06/2023 9:03 AM Narrative 09/06/2023 9:03 AM CLAIM EXAMINER PROCEDURE: ??CT HEAD WO CONTRAST, DATE/TIME OF EXAM: ??09/06/2023 4:05 AM, LOCATION ??[facility] INDICATION: I63.9: Ischemic stroke ([facility]) ADDITIONAL CLINICAL INFORMATION: Ordering Provider [...] DATE/TIME OF EXAM: 09/06/2023 4:05 AM, LOCATION [facility] INDICATION: I63.9: Ischemic stroke ([facility]) ADDITIONAL CLINICAL INFORMATION: Ordering Provider Reason [...] > Dictated by Chriss Hebert DO (residential door unit installer). ILay MD have personally reviewed and interpretedthis examination/study. > Interpreting Provider: Lay Chaudhry MD on 09/06/2023 9:03 AM Timi Mills MD CT ORDERABLES * (ABNORMAL) URINALYSIS REFLEX TO MICROSCOPIC NO CULTURE (09/06/2023 2:58 AM CLAIM EXAMINER) Color UA Colorless(A ) Straw, Yellow 09/06/2023 3:17 AM [facility] Clarity UA Clear Clear 09/06/2023 3:17 AM [facility] Specific [place] UA 1.003(L) 1.005 - 1.030 09/06/2023 3:17 AM [facility] pH UA 7.0 5.0 - 8.0 pH 09/06/2023 3:17 AM [facility] Protein UA Negative Negative 09/06/2023 3:17 AM [facility] Glucose UA Negative Negative 09/06/2023 3:17 AM [facility] Ketone UA Negative Negative 09/06/2023 3:17 AM [facility] Bilirubin UA Negative Negative 09/06/2023 3:17 AM [facility] Blood UA Negative Negative 09/06/2023 3:17 AM [facility] Nitrite UA Negative Negative 09/06/2023 3:17 AM [facility] Leukocyte Esterase Negative Negative 09/06/2023 3:17 AM [facility] Urobilinogen UA Negative Negative mg/dL 09/06/2023 3:17 AM [facility] RBC UA 0-2 None Seen, 0-2, 3-5 /HPF 09/06/2023 3:17 AM [facility] WBC UA 0-5 None Seen, 0-5 /HPF 09/06/2023 3:17 AM [facility] Squamous Epithelial Cells UA None Seen None Seen, 0-2, 3-5 /HPF 09/06/2023 3:17 AM [facility] Urine URINE SPECIMEN OBTAINED BY CLEAN CATCH PROCEDURE / Unknown Collection / Unknown 09/06/2023 2:58 AM [facility] 09/06/2023 3:10 AM [facility] - 09/06/2023 3:17 AM [facility] Timi Mills MD LAB - URINALYSIS OR DERABLES Performing Organization Address [facility] de Phone Number [address] [phone] [phone] * (ABNORMAL) URINE DRUG SCREEN IMMUNOASSAY (09/06/2023 2:58 AM CLAIM EXAMINER) [facility] Amphetamines Screen Urine Negative Negative : < 1000 ng/mL 09/06/2023 3:32 AM [facility] Barbiturates Screen Urine Negative Negative : < 200 ng/mL 09/06/2023 3:32 AM [facility] Benzodiazepine Screen Urine Negative Negative : < 200 ng/mL 09/06/2023 3:32 AM [facility] Opiates Urine Positive(A) Negative : < 300 ng/mL 09/06/2023 3:32 AM [facility] Comment:Positive urine opiat e screening results should be confirmed by another generally accepted non-immunological method such as gas chromatography or mass spectrometry. Cocaine Metabolites Urine Negative Negative : < 300 ng/mL 09/06/2023 3:32 AM [facility] Phencyclidine Screen Urine Negative Negative : < 25 ng/ml 09/06/2023 3:32 AM [facility] Cannabinoids Screen Urine Positive(A) Negative : <50 ng/mL 09/06/2023 3:32 AM [facility] Comment:Positive urine canna binoids (THC) screening results should be confirmed by another generally accepted non-immunological method such as gas chromatography or mass spectrometry. Methadone Screen Urine Negative Negative : < 300 ng/mL 09/06/2023 3:32 AM [facility] Fentanyl Screen Urine Negative Negative : <1.5 ng/mL 09/06/2023 3:32 AM [facility] Urine URINE / Unknown Collection / Unknown 09/06/2023 2:58 AM CLAIM EXAMINER 09/06/2023 3:10 AM [facility] Narrative [facility] - 09/06/2023 3:32 AM [facility] The Urine Toxicology Screening Panel does not screen for Propoxyphene, Meprobamate, Carisoprodol, Trazodone, juro-fmc-qnannnm medications and/or volatiles (Acetone, Isopropanol, Methanol or Ethylene Glycol). Ethanol, Salicylate, Acetaminophen, Tricyclic Antidepressants and several therapeutic drugs may be individually assayed in serum or plasma specimen. Toxicology testing by the [facility] is an aid to medical diagnosis and treatment of patients. No documented chain of custody was maintained. Results are intended to be used for clinical purposes only. ? Timi Mills MD LAB - URINE CUSTOMER SALES SPECIALIST RY ORDERABLES Performing Organization Address City/State/[facility] Co de Phone Number [facility] [address] [place] [address], [facility] [phone] * LIPID PROFILE (09/06/2023 1:46 AM [facility]) Cholesterol Total 144 <200 mg/dL 09/06/2023 3:28 AM [facility] HDL 42 >40 mg/dL 09/06/2023 3:28 AM [facility] Comment: ATP III Classification of HDL Cholesterol: ? <40 mg/dL: ??Considered a major risk factor. ? >60 mg/dL: ??Considered a negative risk factor. ? LDL Calculated 86 <100 mg/dL 09/06/2023 3:28 AM [facility] Comment: ATP III Classification of LDL Cholesterol: ?<100 mg/dL: ??Optimal ? 100 - 129 mg/dL: ??Near Optimal/Above Optimal ? 130 - 159 mg/dL: ??Borderline High ? 160 - 189 mg/dL: ??High ?>190 mg/dL: ??Very High ? Triglycerides 79 <150 mg/dL 09/06/2023 3:28 AM [facility] Comment: ATP III Classification of Triglycerides: ?<150 mg/dL: ??Normal ? 150 - 199 mg/dL: ??Borderline High ? 200 - 400 mg/dL: ??High ?>500 mg/dL: ??Very High Blood BLOOD SPECIMEN / Unknown Lab Venipuncture / Unknown 09/06/2023 1:46 AM CLAIM EXAMINER 09/06/2023 2:51 AM [facility] Timi Mills MD LAB - CHEMISTRY ORD ERABLES [facility] [address] [place] [address], [place] [phone] * GROSS + MICRO EXAM (10/14/1999 8:35 AM [facility]) Only the most recent of2 resultswithin the time period is included. Pathologist [facility] Result CASE NUMBER [id number] Comment: ORDERING [...] AND FOREIGN BODY GIANT CELL REACTION SR/KA [id number] Released By ?LINDA VICENTE MISCELLANEOUS SAMPLES / Unknown 10/14/1999 8:35 AM CLAIM EXAMINER 10/14/1999 8:37 AM CLAIM EXAMINER Historical Provider LAB - PATHOLOGY/C YTOLOGY ORDERABLES Care Teams Able Bodied Seaman Relationship Specialty Start Date End Date Fernando Chavez MD [address] [place] [address] PCP - General Family Medicine 09/06/23
--- OUTSIDE RECORDS SUMMARY | 2024-09-03 20:37 | XMS_ITS | Clinical Summary ---
Author Organization [facility] [employer] Address [address] [place] [address] Care Team Providers Care Vacation Planner Name Role Phone Fernando Chavez MD Primary Care Provider [phone] Source Comments [facility] [employer],non-owned Affiliates and Associated Physician Practices is amultiple site organization consisting of ambulatory clinics and hospital sitesin [place], [place]. This disclosure is being madepursuant to the Care Everywhere program and may not contain all information available regarding this patient. Last updated [employer] Allergies Active Allergy Reactions Criticality Noted Date [...] in left flank 09/06/2023 Ischemic stroke 09/04/2023 Family History Medical History Relation Name Comments [...] Respiratory Rate 10 10/18/2023 11:1 1 AM CAT DOG OR OTHER PET GROOMER Oxygen Saturation 98% 11/14/2023 3:18 PM CDT [...] of 3 - 19+ 3-dose series) 1984 PNEUMOCOCCAL VACCINE 50+ (1 of 1 - PCV) 12/05/2015 ZOSTER VACCINE (1 of 2) 12/05/2015 MAMMOGRAM 07/07/2016 07/07/2014 COVID-19 VACCINE ( - 2023-2 5 season) 2024 INFLUENZA VACCINE (#1) 2024 05/25/2008 DEPRESSION SCREENING 08/12/2024 09/04/2023 MEDICARE AWV ? CALENDAR YEAR 2024 LIPID TESTING 09/06/2028 09/06/2023 HIB VACCINE Aged Out No longer eligi ble based on patient's age to complete this topic HPV VACCINE Aged Out No longer eligi ble based on patient's age to complete this topic MENINGOCOCCAL (Group B) VACCINE Aged Out No longer eligible based on patient's age to complete this topic MENINGOCOCCAL VACCINE Aged Out No lia avni eligible based on patient's age to complete this topic PNEUMOCOCCAL VACCINE Aged Out No long er eligible based on patient's age to complete this topic Procedures Procedure Name Priority Date/Time Associated Diagnosis Comments LIPID PROFILE Routine 09/06/2023 1:46 AM CAT DOG OR OTHER PET GROOMER from Last 3 Months or Most Recently Relevant to Health Maintenance Results * LIPID PROFILE (09/06/2023 1:46 AM CAT DOG OR OTHER PET GROOMER) Cholesterol Total 144 <200 mg/dL 09/06/2023 3:28 AM [facility] HDL 42 >40 mg/dL 09/06/2023 3:28 AM [facility] Comment: ATP III Classification of HDL Cholesterol: ? <40 mg/dL: ??Considered a major risk factor. ? >60 mg/dL: ??Considered a negative risk factor. ? LDL Calculated 86 <100 mg/dL 09/06/2023 3:28 AM [facility] Comment: ATP III Classification of LDL Cholesterol: ?<100 mg/dL: ??Optimal ? 100 - 129 mg/dL: ??Near Optimal/Above Optimal ? 130 - 159 mg/dL: ??Borderline High ? 160 - 189 mg/dL: ??High ?>190 mg/dL: ??Very High ? Triglycerides 79 <150 mg/dL 09/06/2023 3:28 AM [facility] Comment: ATP III Classification of Triglycerides: ?<150 mg/dL: ??Normal ? 150 - 199 mg/dL: ??Borderline High ? 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
== END 2024-09-02 02:04 | disposition home or self-care (01) ==
PROVIDERS: Emergency Medicine; Emergency Provider Physician Assistant; PCP Family Medicine
DX: R10.32 Left lower quadrant pain (principal); I65.21 Occlusion and stenosis of right carotid artery; M81.0 Age-related osteoporosis without current pathological fracture; F41.9 Anxiety disorder, unspecified; Z86.73 Personal history of transient ischemic attack (TIA), and cerebral infarction without residual deficits; Z86.14 Personal history of Methicillin resistant Staphylococcus aureus infection; Z87.891 Personal history of nicotine dependence; Z87.442 Personal history of urinary calculi; Z90.2 Acquired absence of lung [part of]; Z90.49 Acquired absence of other specified parts of digestive tract; Z90.710 Acquired absence of both cervix and uterus; Z79.02 Long term (current) use of antithrombotics/antiplatelets; Z79.899 Other long term (current) drug therapy
CPT/HCPCS: 36415; 74177; 80053; 81003; 81025; 83690; 85025; 96361; 96374; 96375; 96376; 99284; J2060; J2270; J2405; J7030; Q9967

== ENCOUNTER 2024-09-16 16:34 | Outpatient (CLI) | payer MEDICARE, MEDICAID, SELFPAY ==
--- NOTE | ~2024-09-16 | XR_ITS ---
CHEST RADIOGRAPH, PA AND LATERAL CLINICAL HISTORY: R10.32 - Left lower quadrant pain . COMPARISON: 06/27/2024 TECHNIQUE: PA and lateral views of the chest. FINDINGS The cardiomediastinal silhouette is unremarkable. The lungs are clear. Visualized osseous structures and soft tissues are unremarkable. IMPRESSION: No focal infiltrate or effusion. Reviewed, dictated and finalized at location A. TIVE ASSEMBLER
--- NOTE | ~2024-09-16 | XR_ITS ---
Exam: Abdomen 1V HISTORY: R10.32 - Left lower quadrant pain COMPARISON: Reference is made to a CT examination of the abdomen and pelvis dated 09/01/2024 and omid damon back to 05/28/2024. TECHNIQUE: Supine images of the abdomen FINDINGS: Bowel gas pattern is nonspecific and non-obstructive. There is no free air or deep sulci. Redemonstration of scattered 2 and 3 mm calcifications projecting over the lower pole of the left kid tone. These have increased in quantity since 05/28/2024 examination. No stones project over the right kidney. Enteric staple line to the left of midline within the lower abdomen. Enteric staple line within the rectum. Moderate fecal stasis. Lung bases are unremarkable. Bones and soft tissues are unremarkable. IMPRESSION: Left renal calculi, as detailed above Reviewed, dictated and finalized at location A. [facility]
--- OUTSIDE RECORDS SUMMARY | 2024-09-16 16:40 | XMS_ITS | Clinical Summary ---
Author Organization [facility] Address [address] [place] [address] Care Team Providers Care Environmental Services Project Manager Name Role Phone Fernando Chavez MD Primary Care Provider [phone] Allergies Active Allergy Reactions Criticality Noted Date [...] 07/02/2021 Assessment & Plan (07/02/2021 11:18 AM QUANTITATIVE SOFTWARE ENGINEER): Pt's systolic blood pressure was noted to [...] metoprolol for now. Pt is contact her call taker tomorrow for further instructions. Fall 06/29/2021 Assessment & Plan (07/02/2021 11:10 AM QUANTITATIVE SOFTWARE ENGINEER): Mechanical fall day prior to presentation with right hip pain. No prior history of hip pain. Xray of hip and knee were negative. Continue management with nonnarcotic meds. Home health referral made outpt. Assessment & Plan (07/01/2021 10:55 AM QUANTITATIVE SOFTWARE ENGINEER): Mechanical fall day prior to presentation with right hip pain. No prior history of hip pain. Xray of hip and knee were negative. Continue management with nonnarcotic meds. PT consulted. Assessment & Plan (06/30/2021 11:54 AM QUANTITATIVE SOFTWARE ENGINEER): Mechanical fall yesterday with right hip pain. No prior history of hip pain. Xray of hip and knee were negative. Continue management with nonnarcotic meds. PT consulted but pt refused to work with PT this morning. Assessment & Plan (06/29/2021 1:48 PM QUANTITATIVE SOFTWARE ENGINEER): Mechanical fall yesterday with right hip pain. No prior history of hip pain. Xray of hip and knee were negative. Continue management with nonnarcotic meds. Acute hypoxemic respiratory failure 02/08/2021 Elevated troponin 01/14/2021 Atypical chest pain 01/14/2021 Assessment & Plan (07/02/2021 11:09 AM QUANTITATIVE SOFTWARE ENGINEER): Troponins are negative. Continue to follow with call taker as outpatient. Assessment & Plan (07/01/2021 10:54 AM QUANTITATIVE SOFTWARE ENGINEER): Troponins are negative. Continue to follow with call taker as outpatient. Assessment & Plan (06/30/2021 11:52 AM QUANTITATIVE SOFTWARE ENGINEER): Troponins are negative. Continue to follow with call taker as outpatient. Assessment & Plan (06/29/2021 1:45 PM QUANTITATIVE SOFTWARE ENGINEER): Troponins are negative. Continue to follow with call taker as outpatient. Hepatitis 01/14/2021 Tylenol overdose 01/14/2021 [...] (04/11/2020): Added automatically from request for surgery [id number] Assessment & Plan (07/02/2021 10:58 AM QUANTITATIVE SOFTWARE ENGINEER): Please see constipation noted elsewhere. CT is otherwise unremarkable. Pt also has underlying chronic abdominal pain. Assessment & Plan (07/01/2021 10:53 AM QUANTITATIVE SOFTWARE ENGINEER): Please see constipation noted elsewhere. CT is otherwise unremarkable. Pt also has underlying chronic abdominal pain. Assessment & Plan (06/30/2021 11:49 AM QUANTITATIVE SOFTWARE ENGINEER): Please see constipation noted elsewhere. CT is otherwise unremarkable. Pt also has underlying chronic abdominal pain. Assessment & Plan (06/29/2021 1:48 PM QUANTITATIVE SOFTWARE ENGINEER): Please see constipation noted elsewhere. CT is [...] NOS Assessment & Plan (07/02/2021 11:09 AM QUANTITATIVE SOFTWARE ENGINEER): Continue home meds. Assessment & Plan (07/01/2021 10:53 AM QUANTITATIVE SOFTWARE ENGINEER): Continue home meds. Assessment & Plan (06/30/2021 11:51 AM QUANTITATIVE SOFTWARE ENGINEER): Continue home meds. Assessment & Plan (06/29/2021 1:46 PM QUANTITATIVE SOFTWARE ENGINEER): Continue home meds. Assessment & Plan (04/23/2020 1:50 PM CDT): - home clonazepam 0.5mg BID Acute cerebrovascular insufficiency 12/26/2013 Overview (11/16/2016): AC CEREBROVASC INSUF NOS Constipation Assessment & Plan (07/02/2021 11:09 AM QUANTITATIVE SOFTWARE ENGINEER): Pt's history and CT suggests this; no suggestion of bowel obstruction on CT. Continue bowel regimen and monitor for stools. Avoid narcotics; pt reports she is not on any narcotics at home. Mag citrate was tried per pt's request but this did not result in bm. She drank @ 2L of Golytely with good results. Assessment & Plan (07/01/2021 10:53 AM QUANTITATIVE SOFTWARE ENGINEER): Pt's history and CT suggests this; no suggestion of bowel obstruction on CT. Continue bowel regimen and monitor for stools. Avoid narcotics; pt reports she is not on any narcotics at home. Mag citrate was tried yesterday per pt's request but this did not result in bm. She drank @ 2L of Golytely with good results. Assessment & Plan (06/30/2021 11:50 AM QUANTITATIVE SOFTWARE ENGINEER): Pt's history and CT suggests this; no suggestion of bowel obstruction. Continue bowel regimen and monitor for stools. Avoid narcotics; pt reports she is not on any narcotics at home. Mag citrate was tried yesterday per pt's request but this did not result in bm. Plan is to place NG and give Golytely through this today. Assessment & Plan (06/29/2021 1:44 PM QUANTITATIVE SOFTWARE ENGINEER): Pt's history and CT suggests this; no suggestion of bowel obstruction. Continue bowel regimen and monitor for stools. Avoid narcotics; pt reports she is not on any narcotics at home. Encounters Date Type Department Care Team Description 06/25/2024 1:22 AM QUANTITATIVE SOFTWARE ENGINEER - 06/25/2024 11:59 PM QUANTITATIVE SOFTWARE ENGINEER Hospital Encounter [facility] Emergency, Room [...] Trigeminal neuralgia Colon obstruction (CMS/HCC) ([facility]) PONV (postoperative nausea and vomiting) IV medications [...] How often do you attend chur or caodaism services? 1 to 4 times per year 02/09/2021 Do you belong to any clubs o r organizations such as religious groups, unions, fraternal or athletic groups, or [...] on file Legal Sex Female 5:42 AM QUANTITATIVE SOFTWARE ENGINEER Gender Identity Not on file Sexual Orientation [...] 95 03/25/2024 11:15 AM CDT Temperature 36.9 C (98.4 F) 03/25/2024 11:15 AM CDT Respiratory Rate 16 03/05/2024 10:27 AM CDT [...] or Tdap) 07/20/202904/2019 Insurance [employer] MEDICARE HMO [facility] CHOICE [facility] [place] [place] [address] [employer] MEDICARE HMO Advance Directives For more information, please contact: [phone] * Full Code (Latest Code Status on [...] 4:23 PM 04/28/2020 8:27 PM Care Teams Environmental Services Project Manager Relationship Specialty Start Date End Date Fernando Chavez MD [address] [place] [address] PCP - General Family Medicine 03/05/24
--- OUTSIDE RECORDS SUMMARY | 2024-09-16 16:40 | XMS_ITS | CONTINUITY OF CARE DOCUMENT ---
Author Name doyle kwon Address Unknown Organization [facility] Address [address] [place] [address] Phone [phone] Care Team Providers Care Dampener Operator Name Role Phone Iglesia Osorio MD Unavailable DONTE PAT MD Unavailable [phone] DONTE PAT MD Unavailable [phone] INSURANCE PROVIDERS Payer name Policy type / Coverage type [place] red republican ID [facility] [id number]
--- OUTSIDE RECORDS SUMMARY | 2024-09-16 16:40 | XMS_ITS | Patient Health Summary ---
Author Organization [facility] Address [address] [address] Care Team Providers Care Seismology Technical Officer Name Role Phone Fernando Chavez MD Primary Care Provider Note from [facility],non-owned Affiliates and Associated Physician Practices is amultiple site organization consisting of ambulatory clinics and hospital sitesin [place], [place] and [place]. This disclosure is being madepursuant to the Care Everywhere program and may not contain all information available regarding this patient. Last updated 18.[facility] Allergies * Bupropion(Unknown) * Codeine(Itching) * Diphenhydramine(Unknown) [...] 112 11/14/2023 3:18 PM CDT Temperature 36.1 C (97 F) 11/14/2023 3:18 PM CDT Respiratory Rate 10 10/18/2023 11:1 1 AM SLIDER ASSEMBLER Oxygen Saturation 98% 11/14/2023 3:18 PM CDT [...] IR CAROTID CEREBRAL ANGIOGRAM (09/27/2023 2:09 PM SLIDER ASSEMBLER) Anatomical Region Laterality Modality Head X-Ray Angiograph y 09/27/2023 1:55 PM SLIDER ASSEMBLER Impressions 10/01/2023 10:25 AM SLIDER ASSEMBLER Impression: 1. Severe flow-limiting stenosis of the proximal right subclavian artery measuring 90%. 2. The Right carotid artery supplies the right anterior circulation as well as right posterior circulation via a right DEOILING MACHINE OPERATOR. There is no contribution from the left carotid system. 3. The right AICA-PICA receives a majority of flow from the dominant left vertebral artery system IDr. Timi, was present and performed/supervised the entire procedure. [...] evaluation, please review the evaluation forms in [facility]. For details on monitored clinical parameters during the intra-service sedation time, please review the procedure nurse documentation in [facility]. ITimi MD have personally reviewed and interpreted this examination/study. > Interpreting Provider: Timi Mills MD on 10/01/2023 10:25 AM Narrative 10/01/2023 10:25 AM SLIDER ASSEMBLER PROCEDURE: IR CAROTID CEREBRAL ANGIOGRAM DATE/TIME OF [...] cerebral infarction.Vascular surgery consult of possible bypass. Biodiesel Plant Superintendent: Soham Mills Sr. Consultant(s): Tanika Orourke Vessels: Ultrasound Guided Access of Femoral Artery Left Subclavian Artery Angiogram: Cervical and Cerebral Right Innominate Artery Angiogram: Cervical and Cerebral Left Common Carotid Artery Angiogram: Cervical and Cerebral Right Femoral Artery Angiogram Anesthesia: I, Dr. Julius Mills, was present for the entire duration of the procedure. Moderate sedation on this adult patient ws ordered by the mixing operator, administered intravenously in my presence, and [...] patient evaluation, please review the evaluation in [facility]. For details on monitored clinical parameters during the intra-service sedation time, please review the procedure nurse documentation in [facility]. Procedural detail: The risks, benefits, and alternatives to procedure were discussed in detail with the patient. These included but were not limited to the risk of blood loss, vessel injury, stroke, renal injury, and contrast allergy. The patient was brought to the biplane angiography suite where she underwent prep and drape procedures. Limited ultrasound of the common femoral artery demonstrated a patent vessel. The take off of the profunda and other arteries were identified. A braswell scale image was documented. The right common femoral artery was accessed using a micropuncture needle. The needle entry was documented. Following a series of exchanges, a 6 Senegalese 30 cm Brite tip sheath was placed in the right femoral artery and a 5 Senegalese sim2 catheter was navigated into the aortic [...] system. Hemostasis was achieved using a 6 Senegalese Angio-Seal closure device. Hemostasis was immediate at [...] poor distal vessel opacification. A large right DEOILING MACHINE OPERATOR is visualized. The right carotid artery supplies the right anterior circulation as well as right posterior circulation via a right DEOILING MACHINE OPERATOR. The right vertebral artery is non-dominant with [...] cerebral infarction.Vascular surgery consult of possible bypass. Biodiesel Plant Superintendent: Soham Mills Sr. Consultant(s): Tanika Orourke Vessels: Ultrasound Guided Access of Femoral Artery Left Subclavian Artery Angiogram: Cervical and Cerebral Right Innominate Artery Angiogram: Cervical and Cerebral Left Common Carotid Artery Angiogram: Cervical and Cerebral Right Femoral Artery Angiogram Anesthesia: I, Dr. Julius Mills, was present for the entire duration ofthe procedure. Moderate sedation on this adult patient ws ordered by the mixing operator, administered intravenously in my presence, and [...] patient evaluation, please review the evaluation in [facility]. For details on monitored clinical parameters during theintra-service sedation time, please review the procedure nurse documentation in [facility]. Procedural detail: The risks, benefits, and alternatives [...] documented. Following aseries of exchanges, a 6 Senegalese 30 cm Brite tip sheath was placed in the right femoral artery and a 5 Senegalese sim2 catheter was navigated into theaortic arch. [...] arterial system.Hemostasis was achieved using a 6 Senegalese Angio-Seal closure device. Hemostasis was immediate at [...] poor distal vessel opacification. A large right DEOILING MACHINE OPERATOR is visualized. The right carotid artery supplies the right anterior circulation as well as right posterior circulation via a right DEOILING MACHINE OPERATOR. The right vertebral artery is non-dominant with [...] as right posterior circulation via a right DEOILING MACHINE OPERATOR. There is no contribution from the left carotid system. 3. The right AICA-PICA receives a majority of flow from the dominantleft vertebral artery system I, Dr. Timi Mills, was present and performed/supervised theentire procedure. Moderate sedation on this adult patient was ordered by me, administered intravenously in my presence, and monitored by theprocedure nurse as an independent trained observer who was present throughout the procedure. The following parameters were monitored: oxygen saturation, heart rate, blood pressure, and response to care. For details on pre-moderate sedation and post-moderate sedation patient evaluation,please review the evaluation forms in [facility]. For details on monitored clinical parameters during the intra-service sedation time, please review the procedure nurse documentation in [facility]. ITimi MD have personally reviewed and interpreted this examination/study. > Interpreting Provider: Timi Mills MD on 10/01/2023 10:25 AM Joseluis Bear MD IR ORDERABLES * (ABNORMAL) PTT [facility] (09/27/2023 9:29 AM SLIDER ASSEMBLER) Only the most recent of12 resultswithin the time period is included. APTT 57.9(H) 23.0 - 38.4 Seconds 09/27/2023 10:25 AM [facility] Comment:Suggested therapeuti c range for full dose I.V. unfractionated heparin therapy for venous thromboembolism is 71 to 109 seconds. Blood BLOOD SPECIMEN / Unknown Lab Venipuncture / Unknown 09/27/2023 9:29 AM SLIDER ASSEMBLER 09/27/2023 10:01 AM SLIDER ASSEMBLER Joseluis Bear MD LAB - COAGULATION OR DERABLES [facility] [address] [place] [address], [facility] [phone] * PT-INR [facility] (09/27/2023 1:50 AM SLIDER ASSEMBLER) Only the most recent of6 resultswithin the time period is included. PT 13.9 12.1 - 14.8 Seconds 09/27/2023 2:38 AM SLIDER ASSEMBLER [facility] INR 1.1 See Comment 09/27/2023 2:38 AM SLIDER ASSEMBLER [facility] Comment:The suggested therap eutic range for standard coumadin (warfarin) therapy is an INR of 2.0-3.0. For high-risk patients (Mechanical Mitral Valve Prosthesis, etc.), the suggested prophylactic therapeutic range is an INR of 2.5-3.5. Blood BLOOD SPECIMEN / Unknown Lab Venipuncture / Unknown 09/27/2023 1:50 AM SLIDER ASSEMBLER 09/27/2023 2:11 AM SLIDER ASSEMBLER Joseluis Bear MD LAB - COAGULATION OR DERABLES [facility] [address] [place] [address], [place] [phone] * CBC W AUTO DIFFERENTIAL (09/27/2023 1:50 AM SLIDER ASSEMBLER) Only the most recent of6 resultswithin the time period is included. WBC 7.0 4.0 - 10.7 x10E9/L 09/27/2023 2:07 AM [facility] RBC Count 3.96 3.90 - 5.20 x10E12/L 09/27/2023 2:07 AM [facility] Hemoglobin 12.0 11.9 - 15.8 g/dL 09/27/2023 2:07 AM [facility] Hematocrit 35.1 34.8 - 46.1 % 09/27/2023 2:07 AM [facility] MCV 88.6 80.0 - 98.0 fL 09/27/2023 2:07 AM [facility] MCH 30.3 26.7 - 33.6 pg 09/27/2023 2:07 AM [facility] MCHC 34.2 31.7 - 36.3 g/dL 09/27/2023 2:07 AM [facility] RDW-CV 12.5 11.3 - 14.8 % 09/27/2023 2:07 AM [facility] Platelet Count 334 150 - 420 x10E9/L 09/27/2023 2:07 AM [facility] MPV 9.6 7.8 - 11.4 fL 09/27/2023 2:07 AM [facility] Neutrophil % 55.4 41.0 - 74.0 % 09/27/2023 2:07 AM [facility] Lymphocyte % 33.0 17.0 - 47.0 % 09/27/2023 2:07 AM [facility] Monocyte % 8.0 3.0 - 11.0 % 09/27/2023 2:07 AM [facility] Eosinophil % 2.9 0.0 - 7.0 % 09/27/2023 2:07 AM [facility] Basophil % 0.6 0.0 - 1.6 % 09/27/2023 2:07 AM [facility] Immature Granulocytes % 0.1 0.0 - 1.0 % 09/27/2023 2:07 AM [facility] Neutrophil Absolute 3.85 1.60 - 7.50 x10E9/L 09/27/2023 2:07 AM SLIDER ASSEMBLER [facility] Lymphocyte Absolute 2.30 1.00 - 4.40 x10E9/L 09/27/2023 2:07 AM SLIDER ASSEMBLER [facility] Monocyte Absolute 0.56 0.15 - 1.00 x10E9/L 09/27/2023 2:07 AM [facility] Eosinophil Absolute 0.20 0.00 - 0.60 x10E9/L 09/27/2023 2:07 AM [facility] Basophil Absolute 0.04 0.00 - 0.13 x10E9/L 09/27/2023 2:07 AM [facility] Blood BLOOD SPECIMEN / Unknown Lab Venipuncture / Unknown 09/27/2023 1:50 AM SLIDER ASSEMBLER 09/27/2023 2:00 AM SLIDER ASSEMBLER Joseluis Bear MD LAB - HEMATOLOGY ORD ERABLES [facility] [address] [place] [address], [facility] [phone] * VAS ARTERIAL ANKLE ARM INDEX (09/26/2023 8:21 AM SLIDER ASSEMBLER) Anatomical Region Laterality Modality Ankle / Foot, Upper Extremity In travascular Ultrasound 09/26/2023 7:38 AM SLIDER ASSEMBLER Narrative Procedure Note Kennedy Romero MD - 09/26/2023 Joseluis Bear MD VASCULAR LAB ORDERAB LES * CARDIAC EKG ORDER (09/25/2023 2:19 PM SLIDER ASSEMBLER) Narrative 09/25/2023 2:19 PM SLIDER ASSEMBLER Ordered by an unspecified provider. Scanned Document CARDIAC SERVICES ORD ERABLES * MRI BRAIN WO CONTRAST (09/24/2023 3:47 PM SLIDER ASSEMBLER) Only the most recent of2 resultswithin the time period is included. Anatomical Region Laterality Modality Head Magnetic Resonan ce 09/24/2023 3:51 PM SLIDER ASSEMBLER Impressions 09/25/2023 8:24 AM SLIDER ASSEMBLER IMPRESSION: 1. No evidence of acute cerebral [...] 09/25/2023 8:24 AM Narrative 09/25/2023 8:24 AM SLIDER ASSEMBLER PROCEDURE: MRI BRAIN WO CONTRAST DATE/TIME OF [...] VAS TRANSCRANIAL DOPPLER COMP (09/24/2023 2:15 PM SLIDER ASSEMBLER) Only the most recent of2 resultswithin the time period is included. Anatomical Region Laterality Modality Head Intravascular Ul trasound 09/24/2023 12:3 6 PM SLIDER ASSEMBLER Narrative Procedure Note Timi Mills MD - 10/10/2023 Joseluis Bear MD VASCULAR LAB ORDERAB LES * VAS CAROTID DUPLEX BILATERAL (09/24/2023 2:14 PM SLIDER ASSEMBLER) Only the most recent of2 resultswithin the time period is included. Anatomical Region Laterality Modality Neck Intravascular Ul trasound 09/24/2023 12:5 3 PM SLIDER ASSEMBLER Narrative Procedure Note Mark Salmeron MD - 09/24/2023 Joseluis Bear MD VASCULAR LAB ORDERAB LES * TROPONIN-I HIGH SENSITIVE REFLEX 1HOUR (09/24/2023 5:45 AM SLIDER ASSEMBLER) Only the most recent of2 resultswithin the time period is included. [facility] Troponin I High Sensitive <3 <=14 ng/L 09/24/2023 7:39 AM SLIDER ASSEMBLER [facility] Delta Troponin I HS 09/24/2023 7:39 AM SLIDER ASSEMBLER [facility] Comment:Result exceeds linea rity range. A delta value is unable to be calculated. Blood BLOOD SPECIMEN / Unknown Venipuncture / Unknown 09/24/2023 5:45 AM SLIDER ASSEMBLER 09/24/2023 6:44 AM SLIDER ASSEMBLER Clayton Frazier MD LAB - CHEMISTRY JOSH CALVO [facility] Organization Address City/State/ZIP Co de Phone Number [facility] [address] [place] [address], [facility] [phone] * EKG 12-LEAD (09/24/2023 5:21 AM SLIDER ASSEMBLER) Only the most recent of2 resultswithin the time period is included. Ventricular Rate 61 BPM [facility] MUSE Atrial Rate [address] [facility] MUSE P-R Interval [address] [facility] MUSE QRS Duration ms [address] [facility] MUSE Q-T Interval ms 484 ms [facility]USE QTC Calculation (Bezet) 487 ms [facility] MUSE Calculated P Sargents 75 degrees [facility] MUSE Calculated R Sargents 84 degrees [facility] MUSE Calculated T Sargents 88 degrees [facility] MUSE Interpretation EKG SINUS RHYTHM WITH MARKED SINUS ARRYTHMIA NONSPECIFIC T WAVE ABNORMALITY PROLONGED QT ABNORMAL ECG WHEN COMPARED WITH ECG OF 18-SEP-2023 14:24, T WAVE INVERSION NOW EVIDENT IN ANTERIOR LEADS Confirmed by MICHAEL CRISTOBAL MD ([id number]) on 09/28/2023 9:49:30 AM [facility] MUSE 09/24/2023 5:21 AM SLIDER ASSEMBLER 09/28/2023 9:49 AM SLIDER ASSEMBLER Clayton Frazier MD ECG ORDERABLES [facility] MUSE * CT ANGIO BRAIN NECK STROKE (09/24/2023 4:35 AM SLIDER ASSEMBLER) Anatomical Region Laterality Modality Head Computed Tomogra phy 09/24/2023 4:47 AM SLIDER ASSEMBLER Impressions 09/24/2023 10:43 AM SLIDER ASSEMBLER IMPRESSION: 1.No significant change since prior. 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 3.Severe stenosis of the origin of the right subclavian artery is again noted. 4.Otherwise, no large arterial occlusions or significant stenoses identified in the head or neck. Viz.AI was used for large vessel occlusion detection. > Dictated by Dutch Morales DO (hvac technician residential). I, Lay Chaudhry MD have personally reviewed and interpreted this examination/study. > Interpreting Provider: Lay Chaudhry MD on 09/24/2023 10:43 AM Narrative 09/24/2023 10:43 AM SLIDER ASSEMBLER PROCEDURE: CT ANGIO BRAIN NECK STROKE, DATE/TIME OF EXAM: 09/24/2023 5:19 AM, LOCATION [facility] INDICATION: Code Stroke ADDITIONAL CLINICAL INFORMATION: Ordering [...] ANGIO BRAIN NECK STROKE, DATE/TIME OF EXAM: 45:19 AM, LOCATION [facility] INDICATION: Code Stroke ADDITIONAL CLINICAL INFORMATION: Ordering [...] detection. > Dictated by Dutch Morales DO (hvac technician residential). Lay Casillas MD have personally reviewed and interpretedthis examination/study. > Interpreting Provider: Lay Chaudhry MD on 09/24/2023 10:43 AM Clayton Frazier MD CT ORDERABLES * TROPONIN-I HIGH SENSITIVE BASELINE + 1HR (09/24/2023 4:30 AM SLIDER ASSEMBLER) Only the most recent of2 resultswithin the time period is included. [facility] Troponin I High Sensitive <3 <=14 ng/L 09/24/2023 5:16 AM SLIDER ASSEMBLER [facility] Blood BLOOD SPECIMEN / Unknown Venipuncture / Unknown 09/24/2023 4:30 AM SLIDER ASSEMBLER 09/24/2023 4:37 AM SLIDER ASSEMBLER Clayton Frazier MD LAB - CHEMISTRY ORDE RABANIL Performing Organization Address City/[facility]/ZIP Co de Phone Number [address] [address], [facility] [phone] * TYPE + SCREEN PANEL (09/24/2023 4:30 AM SLIDER ASSEMBLER) Only the most recent of2 resultswithin the time period is included. [facility] Antibody Screen NEG 5:14 AM SLIDER ASSEMBLER [facility] ABO Rh A NEG 09/24/2023 5:14 AM [facility] LAB Blood Bank BLOOD SPECIMEN / Unknown Venipuncture / Unknown 09/24/2023 4:30 AM SLIDER ASSEMBLER 09/24/2023 4:37 AM SLIDER ASSEMBLER Clayton Frazier MD LAB - BLOOD BANK ORD ERABLES [facility] [address] [place] [address], [facility] [phone] * (ABNORMAL) COMPREHENSIVE METABOLIC PANEL (09/24/2023 4:30 AM SLIDER ASSEMBLER) [facility] BUN 16 7 - 26 mg/dL 09/24/2023 5:10 AM [facility] Creatinine 0.91 0.56 - 0.96 mg/dL 09/24/2023 5:10 AM [facility] Sodium 141 136 - 145 mmol/L 09/24/2023 5:10 AM [facility] Potassium 3.9 3.5 - 4.5 mmol/L 09/24/2023 5:10 AM [facility] Comment:Hemolysis detected i n this specimen. Hemolysis may cause false elevations in potassium leading to pseudohyperkalemia or masked hypokalemia. Recommend repeat testing if clinically indicated. Chloride 107 98 - 107 mmol/L 09/24/2023 5:10 AM [facility] CO2 24 22 - 29 mmol/L 09/24/2023 5:10 AM [facility] Glucose 77 70 - 115 mg/dL 09/24/2023 5:10 AM [facility] Calcium 9.4 8.4 - 10.2 mg/dL 09/24/2023 5:10 AM [facility] Protein Total 7.7 6.0 - 8.3 g/dL 09/24/2023 5:10 AM [facility] Comment:Hemolysis detected i n this specimen. Hemolysis is known to cause elevations in this analyte. Caution should be exercised in the interpretation of this result. Recommend repeat testing if clinically indicated. Albumin 4.2 3.4 - 5.0 g/dL 09/24/2023 5:10 AM [facility] Bilirubin Total 0.3 0.2 - 1.2 mg/dL 09/24/2023 5:10 AM [facility] Alkaline Phosphatase 93 40 - 150 U/L 09/24/2023 5:10 AM [facility] ALT 18 5 - 55 U/L 09/24/2023 5:10 AM [facility] AST 34 5 - 34 U/L 09/24/2023 5:10 AM [facility] Comment:Hemolysis detected i n this specimen. Hemolysis is known to cause elevations in this analyte. Caution should be exercised in the interpretation of this result. Recommend repeat testing if clinically indicated. Anion Gap 10 6 - 16 09/24/2023 5:10 AM [facility] BUN/Creatinine Ratio 18 7 - 23 09/12 5:10 AM [facility] Osmolality Calculated 292 275 - 295 mOsm/kg 09/24/2023 5:10 AM [facility] Albumin/Globulin Ratio 1.2 1.1 - 2.3 5:10 AM [facility] eGFR by CKD-EPI 74(L) >=90 mL/min/1. 73 m2 09/24/2023 5:10 AM [facility] Blood BLOOD SPECIMEN / Unknown Venipuncture / Unknown 09/24/2023 4:30 AM SLIDER ASSEMBLER 09/24/2023 4:37 AM SLIDER ASSEMBLER Clayton Frazier MD LAB - CHEMISTRY ORDE UMESH [facility] [address] [place] [address], [facility] [phone] * INR WHOLE BLOOD - POINT OF CARE (IP) STROKE (09/24/2023 4:28 AM SLIDER ASSEMBLER) INR 1.0 0.9 - 1.2 09/25/2023 11:05 AM [facility] Device [id number] 09/25/2023 11:05 AM [facility] Biodiesel Plant Superintendent ID [id number] 09/25/2023 11:05 AM [facility] Blood BLOOD SPECIMEN / Unknown 09/24/2023 4:28 AM SLIDER ASSEMBLER 09/25/2023 11:05 AM SLIDER ASSEMBLER Provider Unknown LAB - POINT OF CARE ORDERABLES [facility] [address] [place] [address], [place] [phone] * (ABNORMAL) CREATININE - POCT INTERFACED (09/24/2023 4:27 AM SLIDER ASSEMBLER) Creatinine POCT 0.78 0.30 - 1.30 mg/dL 09/25/2023 4:00 PM [facility] eGFR 89(L) >90 mL/min/1.7 3 m2 09/25/2023 4:00 PM [facility] Blood BLOOD SPECIMEN / Unknown 09/24/2023 4:27 AM SLIDER ASSEMBLER 09/25/2023 4:00 PM SLIDER ASSEMBLER Provider Unknown LAB - POINT OF CARE ORDERABLES Performing Organization Address City/[facility]/ZIP Co de Phone Number [address] [address], [facility] [phone] * GLUCOSE - POINT OF CARE (09/24/2023 4:14 AM SLIDER ASSEMBLER) Only the most recent of5 resultswithin the time period is included. Glucose WB/POC 105 70 - 115 mg/dL 09/24/2023 4:18 AM SLIDER ASSEMBLER [facility] Specimen Type Cap Fingerstick 2023 4:18 AM SLIDER ASSEMBLER [facility] Blood BLOOD SPECIMEN / Unknown 09/24/2023 4:14 AM SLIDER ASSEMBLER 09/24/2023 4:18 AM SLIDER ASSEMBLER Provider Unknown LAB - POINT OF CARE ORDERABLES Performing Organization Address [facility]/ZIP Co de Phone Number [address] [address], [facility] [phone] * CT BRAIN - Stroke (09/24/2023 4:07 AM SLIDER ASSEMBLER) Anatomical Region Laterality Modality Head Computed Tomogra phy 09/24/2023 7:04 AM SLIDER ASSEMBLER Impressions 09/24/2023 10:33 AM SLIDER ASSEMBLER IMPRESSION: 1.No acute intracranial hemorrhage. 2.Please note that CT is insensitive to nonhemorrhagic strokes and MRI should be considered if there is clinical concern for acute infarction. 3.Fundus examination is recommended to exclude papilledema and/or the possibility of idiopathic intracranial hypertension (IIH). > Dictated by Theo Hebert DO (sales vice president) ILay MD have personally reviewed and interpreted this examination/study. > Interpreting Provider: Lay Chaudhry MD on 09/24/2023 10:33 AM Narrative 09/24/2023 10:33 AM SLIDER ASSEMBLER PROCEDURE: CT BRAIN STROKE, DATE/TIME OF EXAM: 09/24/2023 4:14 AM, LOCATION [facility] INDICATION: Code Stroke EXAMINATION: Computed tomography (CT) [...] DATE/TIME OF EXAM: 09/24/2023 4:14 AM, LOCATION [facility] INDICATION: Code Stroke EXAMINATION: Computed tomography (CT) [...] (IIH). > Dictated by Theo Hebert DO (sales vice president) Lay Casillas MD have personally reviewed and interpretedthis examination/study. > Interpreting Provider: Lay Chaudhry MD on 09/24/2023 10:33 AM Clayton Frazier MD CT ORDERABLES * SARS-COV-2 (COVID-19) RAPID (09/07/2023 12:13 PM SLIDER ASSEMBLER) Pathologist [facility] COVID-19 PCR Not detected Not detected 09/07/19 12:57 PM [facility] Microbiology SPECIMEN FROM NASOPHARYNGEAL STRUCTURE / Unknown Collection / Unknown 09/07/2023 12:13 PM SLIDER ASSEMBLER 09/07/2023 12:22 PM SLIDER ASSEMBLER Narrative [facility] - 09/07/2023 12:57 PM SLIDER ASSEMBLER The [employer] Xpert Xpress SARS-COV-2 has been authorized by [...] Manuel Peña MD LAB - MICROBIOLOGY O RDERATOSIN Performing Organization Address City/State/[facility] Co de Phone Number [facility] [address] [place] [phone], [facility] [phone] * (ABNORMAL) BASIC METABOLIC PANEL (CALCIUM TOTAL) (09/07/2023 6:38 AM SLIDER ASSEMBLER) Only the most recent of2 resultswithin the time period is included. Pathologist [facility] BUN 9 7 - 26 mg/dL 09/07/2023 7:57 AM [facility] Creatinine 0.88 0.56 - 0.96 mg/dL 09/07/2023 7:57 AM [facility] Sodium 140 136 - 145 mmol/L 09/07/2023 7:57 AM [facility] Potassium 3.1(L) 3.5 - 4.5 mmol/L 09/07/2023 7:57 AM [facility] Chloride 107 98 - 107 mmol/L 09/07/2023 7:57 AM [facility] CO2 24 22 - 29 mmol/L 09/07/2023 7:57 AM [facility] Glucose 98 70 - 115 mg/dL 09/07/2023 7:57 AM [facility] Calcium 9.1 8.4 - 10.2 mg/dL 09/07/2023 7:57 AM [facility] Anion Gap 9 6 - 16 09/07/2023 7:57 AM [facility] BUN/Creatinine Ratio 10 7 - 23 09/07/2023 7:57 AM [facility] Osmolality Calculated 289 275 - 295 mOsm/kg 09/07/2023 7:57 AM [facility] eGFR by CKD-EPI 77(L) >=90 mL/min/1.7 3 m2 09/07/2023 7:57 AM [facility] Blood BLOOD SPECIMEN / Unknown Lab Venipuncture / Unknown 09/07/2023 6:38 AM SLIDER ASSEMBLER 09/07/2023 7:30 AM SLIDER ASSEMBLER Timi Mills MD LAB - CHEMISTRY ORD ERABLES [address] [address], [facility] [phone] * PHOSPHORUS BLOOD (09/07/2023 6:38 AM SLIDER ASSEMBLER) Only the most recent of2 resultswithin the time period is included. Phosphorus 3.6 2.9 - 5.1 mg/dL 09/07/2023 7:57 AM [facility] Blood BLOOD SPECIMEN / Unknown Lab Venipuncture / Unknown 09/07/2023 6:38 AM SLIDER ASSEMBLER 09/07/2023 7:30 AM SLIDER ASSEMBLER Timi Mills MD LAB - CHEMISTRY ORD ERABLES [address] [address], [facility] [phone] * MAGNESIUM BLOOD (09/07/2023 6:38 AM SLIDER ASSEMBLER) Only the most recent of2 resultswithin the time period is included. Magnesium 1.6 1.6 - 2.6 mg/dL 09/07/2023 7:57 AM SLIDER ASSEMBLER [facility] Blood BLOOD SPECIMEN / Unknown Lab Venipuncture / Unknown 09/07/2023 6:38 AM SLIDER ASSEMBLER 09/07/2023 7:30 AM SLIDER ASSEMBLER Timi Mills MD LAB - CHEMISTRY ORD ERABLES [facility] [address] [place] [address], [facility] [phone] * CT ANGIO BRAIN AND NECK (09/06/2023 3:30 PM SLIDER ASSEMBLER) Anatomical Region Laterality Modality Head Computed Tomogra phy 09/06/2023 3:32 PM SLIDER ASSEMBLER Impressions 09/06/2023 3:41 PM SLIDER ASSEMBLER IMPRESSION: 1. No acute intracranial hemorrhage. 2. No large arterial occlusions or significant stenoses identified in the head or neck. Scattered atherosclerotic disease in the neck arteries. 3. 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 > Interpreting Provider: Romi Dutton MD on 09/06/2023 3:41 PM Narrative 09/06/2023 3:41 PM SLIDER ASSEMBLER PROCEDURE: CT ANGIO BRAIN AND NECK, DATE/TIME OF EXAM: 09/06/2023 3:30 PM, LOCATION [facility] INDICATION: G45.9: TIA (transient ischemic attack) ADDITIONAL [...] NECK, DATE/TIME OF EXAM: 09/06/2023 3:30PM, LOCATION [facility] INDICATION: G45.9: TIA (transient ischemic attack) ADDITIONAL [...] COLOR FLOW AND DOPPLER (09/06/2023 10:11 AM SLIDER ASSEMBLER) BSA [id number] m2 [facility] CV FUJ I PACS LV [...] 1.2 cm [facility] CV FUJ I PACS [id number] 4.285 cm [facility] CV FUJ I PACS [id number] 4.463 cm [facility] CV FUJ I PACS [...] Laterality Modality Ultrasound Narrative 09/06/2023 10:58 AM SLIDER ASSEMBLER Left Ventricle: Left ventricle size is normal. Mildly increased wall thickness. Ventricular mass is normal. Findings consistent with concentric remodeling. Normal systolic function. EF by 2D Ortega biplane is 64%. Normal wall motion. Unable to assess diastolic function. Right Ventricle: Right ventricle size is normal. Normal systolic function. Bubble study could not be performed as [...] CT HEAD WO CONTRAST (09/06/2023 4:04 AM SLIDER ASSEMBLER) Anatomical Region Laterality Modality Head Computed Tomogra phy 09/06/2023 8:41 AM SLIDER ASSEMBLER Impressions 09/06/2023 9:03 AM SLIDER ASSEMBLER IMPRESSION: 1.No acute intracranial hemorrhage. > Dictated by Chriss Hebert DO (hvac technician residential). I, Lay Chaudhry MD have personally reviewed and interpreted this examination/study. > Interpreting Provider: Lay Chaudhry MD on 09/06/2023 9:03 AM Narrative 09/06/2023 9:03 AM SLIDER ASSEMBLER PROCEDURE: CT HEAD WO CONTRAST, DATE/TIME OF EXAM: 09/06/2023 4:05 AM, LOCATION [facility] INDICATION: I63.9: Ischemic stroke ([facility]) ADDITIONAL CLINICAL INFORMATION: Ordering Provider Reason For [...] DATE/TIME OF EXAM: 09/06/2023 4:05 AM, LOCATION [facility] INDICATION: I63.9: Ischemic stroke ([facility]) ADDITIONAL CLINICAL INFORMATION: Ordering Provider Reason [...] hemorrhage. > Dictated by Chriss Hebert DO (hvac technician residential). IaLy MD have personally reviewed and interpretedthis examination/study. > Interpreting Provider: Lay Chaudhry MD on 09/06/2023 9:03 AM Timi Mills MD CT ORDERABLES * (ABNORMAL) URINALYSIS REFLEX TO MICROSCOPIC NO CULTURE (09/06/2023 2:58 AM SLIDER ASSEMBLER) Color UA Colorless(A ) Straw, Yellow 09/06/2023 3:17 AM [facility] Clarity UA Clear Clear 09/06/2023 3:17 AM [facility] Specific [place] UA 1.003(L) 1.005 - 1.030 09/06/2023 3:17 AM [facility] pH UA 7.0 5.0 - 8.0 pH 09/06/2023 3:17 AM [facility] Protein UA Negative Negative 09/06/2023 3:17 AM [facility] Glucose UA Negative Negative 09/06/2023 3:17 AM [facility] Ketone UA Negative Negative 09/06/2023 3:17 AM [facility] Bilirubin UA Negative Negative 09/06/2023 3:17 AM [facility] Blood UA Negative Negative 09/06/2023 3:17 AM [facility] Nitrite UA Negative Negative 09/06/2023 3:17 AM [facility] Leukocyte Esterase Negative Negative 09/06/2023 3:17 AM [facility] Urobilinogen UA Negative Negative mg/dL 09/06/2023 3:17 AM [facility] RBC UA 0-2 None Seen, 0-2, 3-5 /HPF 09/06/2023 3:17 AM [facility] WBC UA 0-5 None Seen, 0-5 /HPF 09/06/2023 3:17 AM [facility] Squamous Epithelial Cells UA None Seen None Seen, 0-2, 3-5 /HPF 09/06/2023 3:17 AM [facility] Urine URINE SPECIMEN OBTAINED BY CLEAN CATCH PROCEDURE / Unknown Collection / Unknown 09/06/2023 2:58 AM SLIDER ASSEMBLER 09/06/2023 3:10 AM SLIDER ASSEMBLER Narrative [facility] - 09/06/2023 3:17 AM SLIDER ASSEMBLER Timi Mills MD LAB - URINALYSIS OR DERABLES [facility] [address] [place] [address], [facility] [phone] * (ABNORMAL) URINE DRUG SCREEN IMMUNOASSAY (09/06/2023 2:58 AM [facility]) Amphetamines Screen Urine Negative Negative : < 1000 ng/mL 09/06/2023 3:32 AM [facility] Barbiturates Screen Urine Negative Negative : < 200 ng/mL 09/06/2023 3:32 AM [facility] Benzodiazepine Screen Urine Negative Negative : < 200 ng/mL 09/06/2023 3:32 AM [facility] Opiates Urine Positive(A) Negative : < 300 ng/mL 09/06/2023 3:32 AM [facility] Comment:Positive urine opiat e screening results should be confirmed by another generally accepted non-immunological method such as gas chromatography or mass spectrometry. Cocaine Metabolites Urine Negative Negative : < 300 ng/mL 09/06/2023 3:32 AM [facility] Phencyclidine Screen Urine Negative Negative : < 25 ng/ml 09/06/2023 3:32 AM [facility] Cannabinoids Screen Urine Positive(A) Negative : <50 ng/mL 09/06/2023 3:32 AM [facility] Comment:Positive urine canna binoids (THC) screening results should be confirmed by another generally accepted non-immunological method such as gas chromatography or mass spectrometry. Methadone Screen Urine Negative Negative : < 300 ng/mL 09/06/2023 3:32 AM [facility] Fentanyl Screen Urine Negative Negative : <1.5 ng/mL 09/06/2023 3:32 AM [facility] Urine URINE / Unknown Collection / Unknown 09/06/2023 2:58 AM [facility] 09/06/2023 3:10 AM [facility] Narrative [facility] - 09/06/2023 3:32 AM [facility] The Urine Toxicology Screening Panel does not screen for Propoxyphene, Meprobamate, Carisoprodol, Trazodone, [id number]-vsjvsok medications and/or volatiles (Acetone, Isopropanol, Methanol or Ethylene Glycol). Ethanol, Salicylate, Acetaminophen, Tricyclic Antidepressants and several therapeutic drugs may be individually assayed in serum or plasma specimen. Toxicology testing by the [facility] is an aid to medical diagnosis and treatment of patients. No documented chain of custody was maintained. Results are intended to be used for clinical purposes only. Timi Mills MD LAB - URINE TELECOM COORDINATOR RY ORDERABLES [address] [address], [facility] [phone] * LIPID PROFILE (09/06/2023 1:46 AM [facility]) Cholesterol Total 144 <200 mg/dL 09/06/2023 3:28 AM [facility] HDL 42 >40 mg/dL 09/06/2023 3:28 AM [facility] Comment: ATP III Classification of HDL Cholesterol: <40 mg/dL: Considered a major risk factor. >60 mg/dL: Considered a negative risk factor. LDL Calculated 86 <100 mg/dL 09/06/2023 3:28 AM [facility] Comment: ATP III Classification of LDL Cholesterol: <100 mg/dL: Optimal 100 - 129 mg/dL: Near Optimal/Above Optimal 130 - 159 mg/dL: Borderline High 160 - 189 mg/dL: High >190 mg/dL: Very High Triglycerides 79 <150 mg/dL 09/06/2023 3:28 AM [facility] Comment: ATP III Classification of Triglycerides: <150 mg/dL: Normal 150 - 199 mg/dL: Borderline High 200 - 400 mg/dL: High >500 mg/dL: Very High Blood BLOOD SPECIMEN / Unknown Lab Venipuncture / Unknown 09/06/2023 1:46 AM SLIDER ASSEMBLER 09/06/2023 2:51 AM SLIDER ASSEMBLER Timi Mills MD LAB - CHEMISTRY ORD ERABLES [facility] [address] [place] [address], [facility] [phone] * GROSS + MICRO EXAM (10/14/1999 8:35 AM SLIDER ASSEMBLER) Only the most recent of2 resultswithin the time period is included. Result CASE NUMBER [id number] Comment: ORDERING PHYSICIAN KIRK ALY SPECIMEN TYPE Intestine-bx of nodule Surgeon KIRK ALY M.D. Gross Exam DR. BLAINE MINER M.D. Gross Report INDICATION FOR PROCEDURE ENDOMETRIOSIS/PELVIC PAIN OPERATION DIAGNOSTIC LAPAROSCOPY WITH ADHESIOLYSIS AND COLPECTOMY SPECIMEN BIOPSY OF SMALL BOWEL, NODULE OF ILEUM BIOPSY PELVIC SIDE WALL PERITONEAL BIOPSY GROSS THE SPECIMEN IS RECEIVED IN THREE CONTAINERS LABELED WITH THE PATIENT'S NAME MADISON WEINBERG . 1. LABELED BIOPSY OF SMALL BOWEL NODULE/LESION . THE SPECIMEN CONSISTS OF A BRASWELL-JOSEPH IRREGULARLY SHAPED FRAGMENT OF SOFT TISSUE WHICH MEASURES 0.5 X 0.2 X 0.3 CM. THE SPECIMEN IS ALL SUBMITTED IN A SINGLE CASSETTE LABELED A. 2. LABELED BIOPSY PELVIC SIDE WALL . THE SPECIMEN CONSISTS OF A SINGLE IRREGULAR FRAGMENT [...] ALL SUBMITTED IN A CASSETTE LABELED C. TERRA/KA MICROSCOPIC EXAM MICROSCOPIC 1-3. SECTIONS LABELED A REVEALS FIBROCOLLAGENOUS TISSUE FRAGMENTS, AREAS OF HYALINIZATION, CHRONIC INFLAMMATION AND FOREIGN BODY GIANT CELL REACTION. ENDOMETRIOSIS IS NOT SEEN. SECTION B REVEALS FIBROCOLLAGENOUS TISSUE FRAGMENTS SHOWING AREAS OF FIBROSIS, FOREIGN BODY GIANT CELL REACTION AND CHRONIC INFLAMMATION. NO ENDOMETRIOSIS IS SEEN. SECTIONS LABELED C REVEALS FIBROCOLLAGENOUS TISSUE FRAGMENTS SHOWING AREAS OF FIBROSIS, FAT NECROSIS AND FOREIGN BODY GIANT CELL REACTION. DIAGNOSIS DIAGNOSIS [1] BIOPSY, SMALL BOWEL NODULES/LESIONS -- FIBROSIS, CHRONIC INFLAMMATION AND FOREIGN BODY GIANT CELL REACTION [2] PELVIC SIDE WALL, BIOPSY -- FIBROSIS, CHRONIC INFLAMMATION AND FOREIGN BODY GIANT CELL REACTION [3] PERITONEAL BIOPSY -- FIBROSIS, FAT NECROSIS, AND FOREIGN BODY GIANT CELL REACTION SR/KA [id number] X3 Released By LINDA VICENTE MISCELLANEOUS SAMPLES / Unknown 10/14/1999 8:35 AM SLIDER ASSEMBLER 10/14/1999 8:37 AM SLIDER ASSEMBLER Historical Provider LAB - PATHOLOGY/C YTOLOGY ORDERABLES Care Teams Seismology Technical Officer Relationship Specialty Start Date End Date Fernando Chavez MD [address] [place] [address] PCP - General Family Medicine 09/06/23
--- OUTSIDE RECORDS SUMMARY | 2024-09-16 16:40 | XMS_ITS | Referral Summary ---
Author Organization [facility] [employer] Address [address] [place] [address] Care Team Providers Care Irrigation Teacher Name Role Phone Fernando Chavez MD Primary Care Provider Source Comments [facility] [employer],non-owned Affiliates and Associated Physician Practices is amultiple site organization consisting of ambulatory clinics and hospital sitesin [place], [place], [place] and [place]. This disclosure is being madepursuant to the Care Everywhere program and may not contain all information available regarding this patient. Last updated 18.[facility] [employer] Allergies Active Allergy Reactions Criticality Noted Date [...] Respiratory Rate 10 10/18/2023 11:1 1 AM NON DESTRUCTIVE TESTING SCIENTIST Oxygen Saturation 98% 11/14/2023 3:18 PM CDT [...] Comments LIPID PROFILE Routine 09/06/2023 1:46 AM NON DESTRUCTIVE TESTING SCIENTIST from Last 3 Months or Most Recently Relevant to Health Maintenance Results * LIPID PROFILE (09/06/2023 1:46 AM NON DESTRUCTIVE TESTING SCIENTIST) [facility] Cholesterol Total 144 <200 mg/dL 09/06/2023 3:28 AM [facility] HDL 42 >40 mg/dL 09/06/2023 3:28 AM [facility] Comment: ATP III Classification of HDL Cholesterol: <40 mg/dL: Considered a major risk factor. >60 mg/dL: Considered a negative risk factor. LDL Calculated 86 <100 mg/dL 09/06/2023 3:28 AM [facility] Comment: ATP III Classification of LDL Cholesterol: <100 mg/dL: Optimal 100 - 129 mg/dL: Near Optimal/Above Optimal 130 - 159 mg/dL: Borderline High 160 - 189 mg/dL: High >190 mg/dL: Very High Triglycerides 79 <150 mg/dL 09/06/2023 3:28 AM [facility] Comment: ATP III Classification of Triglycerides: <150 mg/dL: Normal 150 - 199 mg/dL: Borderline High 200 - 400 mg/dL: High >500 mg/dL: Very High Blood BLOOD SPECIMEN / Unknown Lab Venipuncture / Unknown 09/06/2023 1:46 AM NON DESTRUCTIVE TESTING SCIENTIST 09/06/2023 2:51 AM NON DESTRUCTIVE TESTING SCIENTIST Timi Mills MD LAB - CHEMISTRY ORD ERABLES [facility] [address] [place] [address], [facility] [phone] from Last 3 Months or Most Recently Relevant to Health Maintenance Advance Directives Documents on File Type Date Recorded Patient Outgoing Inspector Expl anation Adv Directive/Living Will/POA 09/09/2023 12:24 PM * LIMITED RESUSCITATION-PRIOR AND AFTER ARREST (Latest Code Status on File) Date Activated Date Inactivated Comments 09/06/2023 1:33 AM 09/07/2023 6:35 PM Question Answer Comments Limited Resuscitation: No Intubation, No Invasiv e Ventilation Care Teams Irrigation Teacher Relationship Specialty Start Date End Date Fernando Chavez MD [address] [place] [address] PCP - General Family Medicine 09/06/23
--- OUTSIDE RECORDS SUMMARY | 2024-09-16 16:40 | XMS_ITS | Clinical Summary ---
Author Organization [facility] Address [address] [place] [address] Care Team Providers Care Operations Liaison Name Role Phone Fernando Chavez MD Primary Care Provider [phone] Source Comments [facility],non-owned Affiliates and Associated Physician Practices is amultiple site organization consisting of ambulatory clinics and hospital sitesin [place], [place], [place] and [place]. This disclosure is being madepursuant to the Care Everywhere program and may not contain all information available regarding this patient. Last updated 18.[facility] Allergies Active Allergy Reactions Criticality Noted Date [...] Respiratory Rate 10 10/18/2023 11:1 1 AM CARBON CAPT[employer] POWER PLANT OPERATOR Oxygen Saturation 98% 11/14/2023 3:18 PM CDT [...] 2) 12/05/2015 MAMMOGRAM 07/07/2016 07/07/2014 COVID-19 VACCINE (1 - 2023-2 5 season) 2024 INFLUENZA VACCINE (#1) 2024 05/25/2008 DEPRESSION SCREENING 08/12/2024 09/04/2023 MEDICARE AWV CALENDAR YEAR 2024 LIPID TESTING 09/06/2028 09/06/2023 [...] Comments LIPID PROFILE Routine 09/06/2023 1:46 AM [employer] POWER PLANT OPERATOR from Last 3 Months or Most Recently Relevant to Health Maintenance Results * LIPID PROFILE (09/06/2023 1:46 AM [employer] POWER PLANT OPERATOR) Cholesterol Total 144 <200 mg/dL 09/06/2023 3:28 AM [facility] HDL 42 >40 mg/dL 09/06/2023 3:28 AM [facility] Comment: ATP III Classification of HDL Cholesterol: <40 mg/dL: Considered a major risk factor. >60 mg/dL: Considered a negative risk factor. LDL Calculated 86 <100 mg/dL 09/06/2023 3:28 AM [facility] Comment: ATP III Classification of LDL Cholesterol: <100 mg/dL: Optimal 100 - 129 mg/dL: Near Optimal/Above Optimal 130 - 159 mg/dL: Borderline High 160 - 189 mg/dL: High >190 mg/dL: Very High Triglycerides 79 <150 mg/dL 09/06/2023 3:28 AM [facility] Comment: ATP III Classification of Triglycerides: <150 mg/dL: Normal 150 - 199 mg/dL: Borderline High 200 - 400 mg/dL: High >500 mg/dL: Very High Blood BLOOD SPECIMEN / Unknown Lab Venipuncture / Unknown 09/06/2023 1:46 AM CARBON CAPT[employer] POWER PLANT OPERATOR 09/06/2023 2:51 AM [facility] Timi Mills MD LAB - CHEMISTRY ORD ERABLES [facility] [address] [place] [address], [facility] [phone] from Last 3 Months or Most Recently Relevant to Health Maintenance Advance Directives Documents on File Type Date Recorded Patient Parts Counter Specialist Expl anation Adv Directive/Living Will/POA 09/09/2023 12:24 PM * LIMITED RESUSCITATION-PRIOR AND AFTER ARREST (Latest Code Status on File) Date Activated Date Inactivated Comments 09/06/2023 1:33 AM 09/07/2023 6:35 PM Question Answer Comments Limited Resuscitation: No Intubation, No Invasiv e Ventilation Care Teams Operations Liaison Relationship Specialty Start Date End Date Fernando Chavez MD [address] [place] [address] PCP - General Family Medicine 09/06/23
--- OUTSIDE RECORDS SUMMARY | 2024-09-16 16:40 | XMS_ITS | Referral Summary ---
Author Organization [facility] Address [address] [place] [address] Care Team Providers Care Independent Insurance Adjuster Name Role Phone Fernando Chavez MD Primary Care Provider Encounters Date Type Department Care Team Description 06/25/2024 1:22 AM [facility]ICE - 06/25/2024 11:59 PM [facility] Hospital Encounter [facility] Emergency, Room [...] 07/02/2021 Assessment & Plan (07/02/2021 11:18 AM FARMWORKER RICE): Pt's systolic blood pressure was noted to [...] metoprolol for now. Pt is contact her senior system operator tomorrow for further instructions. Fall 06/29/2021 Assessment & Plan (07/02/2021 11:10 AM FARMWORKER RICE): Mechanical fall day prior to presentation with right hip pain. No prior history of hip pain. Xray of hip and knee were negative. Continue management with nonnarcotic meds. Home health referral made outpt. Assessment & Plan (07/01/2021 10:55 AM FARM[facility] RICE): Mechanical fall day prior to presentation with right hip pain. No prior history of hip pain. Xray of hip and knee were negative. Continue management with nonnarcotic meds. PT consulted. Assessment & Plan (06/30/2021 11:54 AM [facility]ARM[facility]ICE): Mechanical fall yesterday with right hip pain. No prior history of hip pain. Xray of hip and knee were negative. Continue management with nonnarcotic meds. PT consulted but pt refused to work with PT this morning. Assessment & Plan (06/29/2021 1:48 PM [facility]ICE): Mechanical fall yesterday with right hip pain. No prior history of hip pain. Xray of hip and knee were negative. Continue management with nonnarcotic meds. Acute hypoxemic respiratory failure 02/08/2021 Elevated troponin 01/14/2021 Atypical chest pain 01/14/2021 Assessment & Plan (07/02/2021 11:09 AM FARM[facility]ICE): Troponins are negative. Continue to follow with senior system operator as outpatient. Assessment & Plan (07/01/2021 10:54 AM FARM[facility] RICE): Troponins are negative. Continue to follow with senior system operator as outpatient. Assessment & Plan (06/30/2021 11:52 AM [facility]ICE): Troponins are negative. Continue to follow with senior system operator as outpatient. Assessment & Plan (06/29/2021 1:45 PM FARMWORK[facility] RICE): Troponins are negative. Continue to follow with senior system operator as outpatient. Hepatitis 01/14/2021 Tylenol overdose 01/14/2021 [...] (04/11/2020): Added automatically from request for surgery [id number] Assessment & Plan (07/02/2021 10:58 AM [facility]ARM[facility]ICE): Please see constipation noted elsewhere. CT is otherwise unremarkable. Pt also has underlying chronic abdominal pain. Assessment & Plan (07/01/2021 10:53 AM FARM[facility]ICE): Please see constipation noted elsewhere. CT is otherwise unremarkable. Pt also has underlying chronic abdominal pain. Assessment & Plan (06/30/2021 11:49 AM FARM[facility]ICE): Please see constipation noted elsewhere. CT is otherwise unremarkable. Pt also has underlying chronic abdominal pain. Assessment & Plan (06/29/2021 1:48 PM FARMWORKER RICE): Please see constipation noted elsewhere. CT is [...] NOS Assessment & Plan (07/02/2021 11:09 AM [facility]ICE): Continue home meds. Assessment & Plan (07/01/2021 10:53 AM FARM[facility]ER RICE): Continue home meds. Assessment & Plan (06/30/2021 11:51 AM FARM[facility]ER RICE): Continue home meds. Assessment & Plan (06/29/2021 1:46 PM FARMWORKER RICE): Continue home meds. Assessment & Plan (04/23/2020 1:50 PM CDT): - home clonazepam 0.5mg BID Acute cerebrovascular insufficiency 12/26/2013 Overview (11/16/2016): AC CEREBROVASC INSUF NOS Constipation Assessment & Plan (07/02/2021 11:09 AM FARMWORKER RICE): Pt's history and CT suggests this; no suggestion of bowel obstruction on CT. Continue bowel regimen and monitor for stools. Avoid narcotics; pt reports she is not on any narcotics at home. Mag citrate was tried per pt's request but this did not result in bm. She drank @ 2L of Golytely with good results. Assessment & Plan (07/01/2021 10:53 AM [facility]ICE): Pt's history and CT suggests this; no suggestion of bowel obstruction on CT. Continue bowel regimen and monitor for stools. Avoid narcotics; pt reports she is not on any narcotics at home. Mag citrate was tried yesterday per pt's request but this did not result in bm. She drank @ 2L of Golytely with good results. Assessment & Plan (06/30/2021 11:50 AM [facility]ICE): Pt's history and CT suggests this; no suggestion of bowel obstruction. Continue bowel regimen and monitor for stools. Avoid narcotics; pt reports she is not on any narcotics at home. Mag citrate was tried yesterday per pt's request but this did not result in bm. Plan is to place NG and give Golytely through this today. Assessment & Plan (06/29/2021 1:44 PM [facility]ARM[facility]ICE): Pt's history and CT suggests this; no [...] often do you attend chur ch or congregation services? 1 to 4 times per year 02/09/2021 Do you belong to any clubs o r organizations such as quaker groups, unions, fraternal or athletic groups, or [...] on file Legal Sex Female 5:42 AM FARMWORKER [facility]ICE Gender Identity Not on file Sexual Orientation [...] Not on file Insurance [employer] MEDICARE HMO [facility] CHOICE [facility] CHOICE [employer] MEDICARE HMO Advance Directives For more information, please contact: [phone] * Full Code (Latest Code Status on [...] 4:23 PM 04/28/2020 8:27 PM Care Teams Independent Insurance Adjuster Relationship Specialty Start Date End Date Fernando Chavez MD [address] [place], [place] [id number] PCP - General Family Medicine 03/05/24
[2024-09-16 17:51] LABS: Basophils Absolute Auto 0.1 K/mm3 (0.0-0.1); Basophils Percent Auto 0.5 % (0.2-1.2); Eosinophils Absolute Auto 0.1 K/mm3 (0-0.3); Eosinophils Percent Auto 1.1 % (0-4.4); Hematocrit 38.1 % (37.0-47.0); Immature Granulocyte Absolute 0.02 K/mm3 (0.00-0.031); Immature Granulocyte Percent A 0.2 % (0-0.5); Lymphocytes Absolute Auto 1.41 K/mm3 (0.9-3.2); Lymphocytes Percent Auto 14.5 % (18.3-44.2); Mean Corpuscular HGB Conc 31.5 g/dl (32-36); Mean Corpuscular Hemoglobin 29.7 pg (26-34); Mean Corpuscular Volume 94.3 fl (80-100); Mean Platelet Volume 9.9 fl (7.4-10.4); Monocytes Absolute Auto 0.5 K/mm3 (0.1-0.6); Monocytes Percent Auto 5.3 % (2.6-8.5); Neutrophils Absolute Auto 7.6 K/mm3 (1.3-6.7); Neutrophils Percent Auto 78.4 % (45.5-73.1); Platelet Count Result 396 k/mm3 (150-375); Red Blood Count 4.04 M/mm3 (4.2-5.4); Red Cell Distribution Width 13.3 % (11.5-14.5); White Blood Count 9.7 K/mm3 (4.5-10.0)
[2024-09-16 17:52] LABS: Hematocrit 37.5 % (37.0-47.0); Hemoglobin 12.1 g/dL (12.0-15.0); Mean Corpuscular HGB Conc 32.3 g/dl (32-36); Mean Corpuscular Hemoglobin 30.8 pg (26-34); Mean Corpuscular Volume 95.4 fl (80-100); Platelet Count Result 397 k/mm3 (150-375); Red Blood Count 3.93 M/mm3 (4.2-5.4); Red Cell Distribution Width 13.2 % (11.5-14.5); White Blood Count 9.9 K/mm3 (4.5-10.0)
[2024-09-16 19:00] LABS: Alanine Aminotransferase 37 U/L (6-35); Albumin Level 4.2 g/dL (3.5-5.1); Alkaline Phosphatase 89 U/L (38-126); Anion Gap 10 mmol/L (4-12); Aspartate Amino Transferase 42 U/L (14-36); Bilirubin,Total 0.3 mg/dL (0.2-1.3); Blood Urea Nitrogen 15 mg/dL (7-17); CRP < 0.5 mg/dL (<1.0); Calcium 9.5 mg/dL (8.4-10.2); Carbon Dioxide 25 mmol/L (22-30); Chloride 104 mmol/L (98-107); Estimated Glomerular Filt Rate > 60; Glucose 83 mg/dL (65-110); Lipase 159 U/L (23-300); Potassium 3.8 mmol/L (3.4-5.0); Sodium 139 mmol/L (137-145)
[2024-09-16 19:20] LABS: Erythrocyte Sedimentation Rate 9 mm/hr (0-20)
== END 2024-09-16 16:35 | disposition home or self-care (01) ==
PROVIDERS: PCP Family Medicine; Referring Provider Surgery; Visit Provider Nurse Practitioner
DX: R22.2 Localized swelling, mass and lump, trunk (principal); R10.32 Left lower quadrant pain; R50.9 Fever, unspecified; R10.9 Unspecified abdominal pain; N20.0 Calculus of kidney
CPT/HCPCS: 36415; 71046; 74018; 80053; 82784; 83690; 85025; 85027; 85652; 86140; 86364

== ENCOUNTER 2024-09-23 00:01 | Day surgery (SDC) | payer MEDICARE, SELFPAY ==
[2024-09-16 15:29] VITALS: BMI 16.8
--- NOTE | 2024-09-16 15:38 | PC.NURSE ---
Report to the Outpatient Waiting Room, entrance under the green pavilion located off [facility], at time _0730_ on date _[id number]_. Planned Procedure Time: _0930_.? Time changes happen often and if your time is changed the preop area will call you the afternoon before. - You and your visitor will be asked to self-screen and do not enter if you have any COVID symptoms. Please call surgeon if you need to reschedule. - A mask is optional within the hospital at this time. Patients may have clear liquids (water, carbonated beverages, clear teas, apple juice) until 3 hours prior to surgery with a maximum of 20 ounces. - No food from midnight until time of surgery and no smoking, or chewing Tobacco (or any form of nicotine). No chewing gum, candy or mints. Take only the following medications with a SIP of water on the morning of surgery: ___Clonazepam DO NOT STOP ANY OF YOUR OTHER PRESCRIPTION MEDICATIONS PRIOR TO SURGERY EXCEPT THE FOLLOWING Medications to discontinue per physician __Plavix Date to take last [id number] Schmitz.___ Please no make-up, nail taiwanese, hairspray, perfume, deodorant, or body powder the day of surgery.? No jewelry (including any body piercings) or valuables the day of surgery, leave them at home.? Please take a shower or bath the night before, or the morning of, surgery with an antibacterial soap.? Wear comfortable, loose fitting clothing.? - Jewelry must be removed prior to entering the operating room.? Rings and piercings that are not removed may be cut off. - The hospital will not accept responsibility for valuables.? - Please leave all valuables, including medications, at home the day of surgery. If you are going home after surgery, a licensed transport driver must drive you home.? - NO public transportation without another adult if you receive anesthesia. - We recommend that an adult stay with you for 24 hours following discharge. - We also recommend that you do not drive, make important decision, drink alcoholic beverages, or take any drugs that were not prescribed by your health care provider for at least 24 hours after your discharge time. Hold all vitamins and supplements for 3 days per anesthesiologist. Follow any additional instructions given to you from your surgeon. Telephone instructions given to __Madison___and asked if any additional questions and then verbalized understanding. Patient advised to call surgeon office or pre surgery nurse liaison [phone] if any additional questions
--- OUTSIDE RECORDS SUMMARY | 2024-09-23 00:04 | XMS_ITS | Clinical Summary ---
Author Organization [facility] Address [address] [place] [address] Care Team Providers Care Maintenance Carpenter Name Role Phone Fernando Chavez MD Primary Care Provider [phone]- [phone] Allergies Active Allergy Reactions Criticality Noted Date [...] 07/02/2021 Assessment & Plan (07/02/2021 11:18 AM TRAINING AND DEVELOPMENT OFFICER): Pt's systolic blood pressure was noted to [...] metoprolol for now. Pt is contact her nursing director tomorrow for further instructions. Fall 06/29/2021 Assessment & Plan (07/02/2021 11:10 AM TRAINING AND DEVELOPMENT OFFICER): Mechanical fall day prior to presentation with right hip pain. No prior history of hip pain. Xray of hip and knee were negative. Continue management with nonnarcotic meds. Home health referral made outpt. Assessment & Plan (07/01/2021 10:55 AM TRAINING AND DEVELOPMENT OFFICER): Mechanical fall day prior to presentation with right hip pain. No prior history of hip pain. Xray of hip and knee were negative. Continue management with nonnarcotic meds. PT consulted. Assessment & Plan (06/30/2021 11:54 AM TRAINING AND DEVELOPMENT OFFICER): Mechanical fall yesterday with right hip pain. No prior history of hip pain. Xray of hip and knee were negative. Continue management with nonnarcotic meds. PT consulted but pt refused to work with PT this morning. Assessment & Plan (06/29/2021 1:48 PM TRAINING AND DEVELOPMENT OFFICER): Mechanical fall yesterday with right hip pain. No prior history of hip pain. Xray of hip and knee were negative. Continue management with nonnarcotic meds. Acute hypoxemic respiratory failure 02/08/2021 Elevated troponin 01/14/2021 Atypical chest pain 01/14/2021 Assessment & Plan (07/02/2021 11:09 AM TRAINING AND DEVELOPMENT OFFICER): Troponins are negative. Continue to follow with nursing director as outpatient. Assessment & Plan (07/01/2021 10:54 AM TRAINING AND DEVELOPMENT OFFICER): Troponins are negative. Continue to follow with nursing director as outpatient. Assessment & Plan (06/30/2021 11:52 AM TRAINING AND DEVELOPMENT OFFICER): Troponins are negative. Continue to follow with nursing director as outpatient. Assessment & Plan (06/29/2021 1:45 PM TRAINING AND DEVELOPMENT OFFICER): Troponins are negative. Continue to follow with nursing director as outpatient. Hepatitis 01/14/2021 Tylenol overdose 01/14/2021 [...] (04/11/2020): Added automatically from request for surgery [id number] Assessment & Plan (07/02/2021 10:58 AM TRAINING AND DEVELOPMENT OFFICER): Please see constipation noted elsewhere. CT is otherwise unremarkable. Pt also has underlying chronic abdominal pain. Assessment & Plan (07/01/2021 10:53 AM TRAINING AND DEVELOPMENT OFFICER): Please see constipation noted elsewhere. CT is otherwise unremarkable. Pt also has underlying chronic abdominal pain. Assessment & Plan (06/30/2021 11:49 AM TRAINING AND DEVELOPMENT OFFICER): Please see constipation noted elsewhere. CT is otherwise unremarkable. Pt also has underlying chronic abdominal pain. Assessment & Plan (06/29/2021 1:48 PM TRAINING AND DEVELOPMENT OFFICER): Please see constipation noted elsewhere. CT is [...] NOS Assessment & Plan (07/02/2021 11:09 AM TRAINING AND DEVELOPMENT OFFICER): Continue home meds. Assessment & Plan (07/01/2021 10:53 AM TRAINING AND DEVELOPMENT OFFICER): Continue home meds. Assessment & Plan (06/30/2021 11:51 AM TRAINING AND DEVELOPMENT OFFICER): Continue home meds. Assessment & Plan (06/29/2021 1:46 PM TRAINING AND DEVELOPMENT OFFICER): Continue home meds. Assessment & Plan (04/23/2020 1:50 PM CDT): - home clonazepam 0.5mg BID Acute cerebrovascular insufficiency 12/26/2013 Overview (11/16/2016): AC CEREBROVASC INSUF NOS Constipation Assessment & Plan (07/02/2021 11:09 AM TRAINING AND DEVELOPMENT OFFICER): Pt's history and CT suggests this; no suggestion of bowel obstruction on CT. Continue bowel regimen and monitor for stools. Avoid narcotics; pt reports she is not on any narcotics at home. Mag citrate was tried per pt's request but this did not result in bm. She drank @ 2L of Golytely with good results. Assessment & Plan (07/01/2021 10:53 AM TRAINING AND DEVELOPMENT OFFICER): Pt's history and CT suggests this; no suggestion of bowel obstruction on CT. Continue bowel regimen and monitor for stools. Avoid narcotics; pt reports she is not on any narcotics at home. Mag citrate was tried yesterday per pt's request but this did not result in bm. She drank @ 2L of Golytely with good results. Assessment & Plan (06/30/2021 11:50 AM TRAINING AND DEVELOPMENT OFFICER): Pt's history and CT suggests this; no suggestion of bowel obstruction. Continue bowel regimen and monitor for stools. Avoid narcotics; pt reports she is not on any narcotics at home. Mag citrate was tried yesterday per pt's request but this did not result in bm. Plan is to place NG and give Golytely through this today. Assessment & Plan (06/29/2021 1:44 PM TRAINING AND DEVELOPMENT OFFICER): Pt's history and CT suggests this; no suggestion of bowel obstruction. Continue bowel regimen and monitor for stools. Avoid narcotics; pt reports she is not on any narcotics at home. Encounters Date Type Department Care Team Description 06/25/2024 1:22 AM TRAINING AND DEVELOPMENT OFFICER - 06/25/2024 11:59 PM TRAINING AND DEVELOPMENT OFFICER Hospital Encounter [facility] Emergency, Room [...] Endometriosis-21 times Trigeminal neuralgia Colon obstruction (CMS/HCC) ([facility]) PONV (postoperative nausea and vomiting) IV medications [...] How often do you attend chur or shinto services? 1 to 4 times per year 02/09/2021 Do you belong to any clubs o r organizations such as baptist groups, unions, fraternal or athletic groups, or [...] file Legal Sex Female 5:42 AM TRAINING AND DEVELOPMENT OFFICER Gender Identity Not on file Sexual [...] or Tdap) 07/20/202904/2019 Insurance [employer] MEDICARE HMO [facility] CHOICE [facility] [place] [address] [employer] MED[employer]ARE HMO Advance Directives For more information, please contact: [phone] * Full Code (Latest Code Status on [...] 4:23 PM 04/28/2020 8:27 PM Care Teams Maintenance Carpenter Relationship Specialty Start Date End Date Fernando Chavez MD [address] [place] [id number] PCP - General Family Medicine 03/05/24
--- OUTSIDE RECORDS SUMMARY | 2024-09-23 00:04 | XMS_ITS | Patient Health Summary ---
Author Organization [facility] Address [address] [place] [address] Care Team Providers Care Cushion Padder Name Role Phone Fernando Chavez MD Primary Care Provider [phone] Note from [facility],non-owned Affiliates and Associated Physician Practices is amultiple site organization consisting of ambulatory clinics and hospital sitesin [place], [place], [place] and [place]. This disclosure is being madepursuant to the Care Everywhere program and may not contain all information available regarding this patient. Last updated 18.[facility] Allergies * Bupropion(Unknown) * Codeine(Itching) * Diphenhydramine(Unknown) [...] Respiratory Rate 10 10/18/2023 11:1 1 AM EDUCATIONAL RECRUITER Oxygen Saturation 98% 11/14/2023 3:18 PM CDT [...] IR CAROTID CEREBRAL ANGIOGRAM (09/27/2023 2:09 PM EDUCATIONAL RECRUITER) Anatomical Region Laterality Modality Head X-Ray Angiograph y 09/27/2023 1:55 PM EDUCATIONAL RECRUITER Impressions 10/01/2023 10:25 AM EDUCATIONAL RECRUITER Impression: 1. Severe flow-limiting stenosis of the proximal right subclavian artery measuring 90%. 2. The Right carotid artery supplies the right anterior circulation as well as right posterior circulation via a right BILL COLLECTOR. There is no contribution from the left [...] please review the evaluation forms in [facility]. For details on monitored clinical parameters during the intra-service sedation time, please review the procedure nurse documentation in [facility]. ITimi MD have personally reviewed and interpreted this examination/study. > Interpreting Provider: Timi Mills MD on 10/01/2023 10:25 AM Narrative 10/01/2023 10:25 AM EDUCATIONAL RECRUITER PROCEDURE: IR CAROTID CEREBRAL ANGIOGRAM DATE/TIME OF [...] cerebral infarction.Vascular surgery consult of possible bypass. Forensics Analyst: Soham Mills Hebrew Cantor(s): Tanika Orourke Vessels: Ultrasound Guided Access of Femoral Artery Left Subclavian Artery Angiogram: Cervical and Cerebral Right Innominate Artery Angiogram: Cervical and Cerebral Left Common Carotid Artery Angiogram: Cervical and Cerebral Right Femoral Artery Angiogram Anesthesia: I, Dr. Julius Mills, was present for the entire duration of the procedure. Moderate sedation on this adult patient ws ordered by the box printing machine operator, administered intravenously in my presence, [...] evaluation, please review the evaluation in [facility]. For details on monitored clinical parameters during the intra-service sedation time, please review the procedure nurse documentation in [facility]. Procedural detail: The risks, benefits, and alternatives [...] Following a series of exchanges, a 6 Cymro 30 cm Brite tip sheath was placed in the right femoral artery and a 5 Cymro sim2 catheter was navigated into the aortic [...] system. Hemostasis was achieved using a 6 Cymro Angio-Seal closure device. Hemostasis was immediate at [...] poor distal vessel opacification. A large right BILL COLLECTOR is visualized. The right carotid artery supplies the right anterior circulation as well as right posterior circulation via a right BILL COLLECTOR. The right vertebral artery is non-dominant with [...] cerebral infarction.Vascular surgery consult of possible bypass. Forensics Analyst: Soham Mills Hebrew Cantor(s): Tanika Orourke Vessels: Ultrasound Guided Access of Femoral Artery Left Subclavian Artery Angiogram: Cervical and Cerebral Right Innominate Artery Angiogram: Cervical and Cerebral Left Common Carotid Artery Angiogram: Cervical and Cerebral Right Femoral Artery Angiogram Anesthesia: I, Dr. Julius Mills, was present for the entire duration ofthe procedure. Moderate sedation on this adult patient ws ordered by the box printing machine operator, administered intravenously in my presence, [...] evaluation, please review the evaluation in [facility]. For details on monitored clinical parameters during theintra-service sedation time, please review the procedure nurse documentation in [facility]. Procedural detail: The risks, benefits, and alternatives [...] documented. Following aseries of exchanges, a 6 Cymro 30 cm Brite tip sheath was placed in the right femoral artery and a 5 Cymro sim2 catheter was navigated into theaortic arch. [...] arterial system.Hemostasis was achieved using a 6 Cymro Angio-Seal closure device. Hemostasis was immediate at [...] poor distal vessel opacification. A large right BILL COLLECTOR is visualized. The right carotid artery supplies the right anterior circulation as well as right posterior circulation via a right BILL COLLECTOR. The right vertebral artery is non-dominant with [...] as right posterior circulation via a right BILL COLLECTOR. There is no contribution from the left [...] evaluation,please review the evaluation forms in [facility]. For details on monitored clinical parameters during the intra-service sedation time, please review the procedure nurse documentation in [facility]. ITimi MD have personally reviewed and interpreted this examination/study. > Interpreting Provider: Timi Mills MD on 10/01/2023 10:25 AM Joseluis Bear MD IR ORDERABLES * (ABNORMAL) PTT [facility] (09/27/2023 9:29 AM EDUCATIONAL RECRUITER) Only the most recent of12 resultswithin the time period is included. APTT 57.9(H) 23.0 - 38.4 Seconds 09/27/2023 10:25 AM [facility] Comment:Suggested therapeuti c range for full dose I.V. unfractionated heparin therapy for venous thromboembolism is 71 to 109 seconds. Blood BLOOD SPECIMEN / Unknown Lab Venipuncture / Unknown 09/27/2023 9:29 AM EDUCATIONAL RECRUITER 09/27/2023 10:01 AM EDUCATIONAL RECRUITER Joseluis Bear MD LAB - COAGULATION OR DERABLES [facility] [address] [place] [address], [facility] [phone] * PT-INR [facility] (09/27/2023 1:50 AM EDUCATIONAL RECRUITER) Only the most recent of6 resultswithin the time period is included. PT 13.9 12.1 - 14.8 Seconds 09/27/2023 2:38 AM EDUCATIONAL RECRUITER [facility] INR 1.1 See Comment 09/27/2023 2:38 AM EDUCATIONAL RECRUITER [facility] Comment:The suggested therap eutic range for standard coumadin (warfarin) therapy is an INR of 2.0-3.0. For high-risk patients (Mechanical Mitral Valve Prosthesis, etc.), the suggested prophylactic therapeutic range is an INR of 2.5-3.5. Blood BLOOD SPECIMEN / Unknown Lab Venipuncture / Unknown 09/27/2023 1:50 AM EDUCATIONAL RECRUITER 09/27/2023 2:11 AM EDUCATIONAL RECRUITER Joseluis Bear MD LAB - COAGULATION OR DERABLES [facility] [address] [place] [address], [place] [phone] * CBC W AUTO DIFFERENTIAL (09/27/2023 1:50 AM EDUCATIONAL RECRUITER) Only the most recent of6 resultswithin the time period is included. WBC 7.0 4.0 - 10.7 x10E9/L 09/27/2023 2:07 AM [facility] RBC Count 3.96 3.90 - 5.20 x10E12/L 09/27/2023 2:07 AM [facility] Hemoglobin 12.0 11.9 - 15.8 g/dL 09/27/2023 2:07 AM [facility] Hematocrit 35.1 34.8 - 46.1 % 09/27/2023 2:07 AM [facility] MCV 88.6 80.0 - 98.0 fL 09/27/2023 2:07 AM [facility] MCH 30.3 26.7 - 33.6 pg 09/27/2023 2:07 AM [facility] MCHC 34.2 31.7 - 36.3 g/dL 09/27/2023 2:07 AM [facility] RDW-CV 12.5 11.3 - 14.8 % 09/27/2023 2:07 AM [facility] Platelet Count 334 150 - 420 x10E9/L 09/27/2023 2:07 AM [facility] MPV 9.6 7.8 - 11.4 fL 09/27/2023 2:07 AM [facility] Neutrophil % 55.4 41.0 - 74.0 % 09/27/2023 2:07 AM [facility] Lymphocyte % 33.0 17.0 - 47.0 % 09/27/2023 2:07 AM [facility] Monocyte % 8.0 3.0 - 11.0 % 09/27/2023 2:07 AM [facility] Eosinophil % 2.9 0.0 - 7.0 % 09/27/2023 2:07 AM [facility] Basophil % 0.6 0.0 - 1.6 % 09/27/2023 2:07 AM [facility] Immature Granulocytes % 0.1 0.0 - 1.0 % 09/27/2023 2:07 AM [facility] Neutrophil Absolute 3.85 1.60 - 7.50 x10E9/L 09/27/2023 2:07 AM EDUCATIONAL RECRUITER [facility] Lymphocyte Absolute 2.30 1.00 - 4.40 x10E9/L 09/27/2023 2:07 AM EDUCATIONAL RECRUITER [facility] Monocyte Absolute 0.56 0.15 - 1.00 x10E9/L 09/27/2023 2:07 AM [facility] Eosinophil Absolute 0.20 0.00 - 0.60 x10E9/L 09/27/2023 2:07 AM [facility] Basophil Absolute 0.04 0.00 - 0.13 x10E9/L 09/27/2023 2:07 AM [facility] Blood BLOOD SPECIMEN / Unknown Lab Venipuncture / Unknown 09/27/2023 1:50 AM EDUCATIONAL RECRUITER 09/27/2023 2:00 AM EDUCATIONAL RECRUITER Joseluis Bear MD LAB - HEMATOLOGY ORD ERABLES [facility] [address] [place] [address], [facility] [phone] * VAS ARTERIAL ANKLE ARM INDEX (09/26/2023 8:21 AM EDUCATIONAL RECRUITER) Anatomical Region Laterality Modality Ankle / Foot, Upper Extremity In travascular Ultrasound 09/26/2023 7:38 AM EDUCATIONAL RECRUITER Narrative Procedure Note Kennedy Romero MD - 09/26/2023 Joseluis Bear MD VASCULAR LAB ORDERAB LES * CARDIAC EKG ORDER (09/25/2023 2:19 PM EDUCATIONAL RECRUITER) Narrative 09/25/2023 2:19 PM EDUCATIONAL RECRUITER Ordered by an unspecified provider. Scanned Document CARDIAC SERVICES ORD ERABLES * MRI BRAIN WO CONTRAST (09/24/2023 3:47 PM EDUCATIONAL RECRUITER) Only the most recent of2 resultswithin the time period is included. Anatomical Region Laterality Modality Head Magnetic Resonan ce 09/24/2023 3:51 PM EDUCATIONAL RECRUITER Impressions 09/25/2023 8:24 AM EDUCATIONAL RECRUITER IMPRESSION: 1. No evidence of acute cerebral [...] 09/25/2023 8:24 AM Narrative 09/25/2023 8:24 AM EDUCATIONAL RECRUITER PROCEDURE: MRI BRAIN WO CONTRAST DATE/TIME OF [...] and interpreted this examination/study. > Interpreting Provider: Brinaa Joesph MD on 09/25/2023 8:24 AM Joseluis Bear MD MR ORDERABLES * VAS TRANSCRANIAL DOPPLER COMP (09/24/2023 2:15 PM EDUCATIONAL RECRUITER) Only the most recent of2 resultswithin the time period is included. Anatomical Region Laterality Modality Head Intravascular Ul trasound 09/24/2023 12:3 6 PM EDUCATIONAL RECRUITER Narrative Procedure Note Timi Mills MD - 10/10/2023 Joseluis Bear MD VASCULAR LAB ORDERAB LES * VAS CAROTID DUPLEX BILATERAL (09/24/2023 2:14 PM EDUCATIONAL RECRUITER) Only the most recent of2 resultswithin the time period is included. Anatomical Region Laterality Modality Neck Intravascular Ul trasound 09/24/2023 12:5 3 PM EDUCATIONAL RECRUITER Narrative Procedure Note Mark Salmeron MD - 09/24/2023 Joseluis Bear MD VASCULAR LAB ORDERAB LES * TROPONIN-I HIGH SENSITIVE REFLEX 1HOUR (09/24/2023 5:45 AM EDUCATIONAL RECRUITER) Only the most recent of2 resultswithin the time period is included. [facility] Troponin I High Sensitive <3 <=14 ng/L 09/24/2023 7:39 AM EDUCATIONAL RECRUITER [facility] Delta Troponin I HS 09/24/2023 7:39 AM EDUCATIONAL RECRUITER [facility] Comment:Result exceeds linea rity range. A delta value is unable to be calculated. Blood BLOOD SPECIMEN / Unknown Venipuncture / Unknown 09/24/2023 5:45 AM EDUCATIONAL RECRUITER 09/24/2023 6:44 AM EDUCATIONAL RECRUITER Clayton Frazier MD LAB - CHEMISTRY [facility] Organization Address City/State/ZIP Co de Phone Number [facility] [address] [place] [address], [facility] [phone] * EKG 12-LEAD (09/24/2023 5:21 AM EDUCATIONAL RECRUITER) Only the most recent of2 resultswithin the time period is included. Ventricular Rate 61 BPM [facility] MUSE Atrial Rate 61 BPM [facility] MUSE P-R Interval 158 ms [facility] MUSE QRS Duration ms 76 ms [facility] MUSE Q-T Interval ms 484 ms [facility] MUSE QTC Calculation (Bezet) 487 ms [facility] MUSE Calculated P [place] 75 degrees [facility] MUSE Calculated R [place] 84 degrees [facility] MUSE Calculated T [place] 88 degrees [facility] MUSE Interpretation EKG SINUS RHYTHM WITH MARKED SINUS ARRYTHMIA NONSPECIFIC T WAVE ABNORMALITY PROLONGED QT ABNORMAL ECG WHEN COMPARED WITH ECG OF 18-SEP-2023 14:24, T WAVE INVERSION NOW EVIDENT IN ANTERIOR LEADS Confirmed by MICHAEL CRISTOBAL MD ([id number]) on 09/28/2023 9:49:30 AM [facility] MUSE 09/24/2023 5:21 AM EDUCATIONAL RECRUITER 09/28/2023 9:49 AM EDUCATIONAL RECRUITER Clayton Frazier MD ECG ORDERABLES [facility] MUSE * CT ANGIO BRAIN NECK STROKE (09/24/2023 4:35 AM EDUCATIONAL RECRUITER) Anatomical Region Laterality Modality Head Computed Tomogra phy 09/24/2023 4:47 AM EDUCATIONAL RECRUITER Impressions 09/24/2023 10:43 AM EDUCATIONAL RECRUITER IMPRESSION: 1.No significant change since prior. 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 3.Severe stenosis of the origin of the right subclavian artery is again noted. 4.Otherwise, no large arterial occlusions or significant stenoses identified in the head or neck. Viz.AI was used for large vessel occlusion detection. > Dictated by Dutch Morales DO (vice president talent management). I, Lay Chaudhry MD have personally reviewed and interpreted this examination/study. > Interpreting Provider: Lay Chaudhry MD on 09/24/2023 10:43 AM Narrative 09/24/2023 10:43 AM EDUCATIONAL RECRUITER PROCEDURE: CT ANGIO BRAIN NECK STROKE, DATE/TIME OF EXAM: 09/24/2023 5:19 AM, LOCATION [facility] INDICATION: Code Stroke ADDITIONAL CLINICAL INFORMATION: Ordering [...] significant intracranial stenoses are identified. Procedure Note aLy Chaudhry MD - 09/24/2023 PROCEDURE: CT ANGIO BRAIN NECK STROKE, DATE/TIME OF EXAM: 45:19 AM, LOCATION [facility] INDICATION: Code Stroke ADDITIONAL CLINICAL INFORMATION: Ordering [...] Dictated by Dutch Morales DO (vice president talent management). Lay Casillas MD have personally reviewed and interpretedthis examination/study. > Interpreting Provider: Lay Chaudhry MD on 09/24/2023 10:43 AM Clayton Frazier MD CT ORDERABLES * TROPONIN-I HIGH SENSITIVE BASELINE + 1HR (09/24/2023 4:30 AM EDUCATIONAL RECRUITER) Only the most recent of2 resultswithin the time period is included. [facility] Troponin I High Sensitive <3 <=14 ng/L 09/24/2023 5:16 AM EDUCATIONAL RECRUITER [facility] Blood BLOOD SPECIMEN / Unknown Venipuncture / Unknown 09/24/2023 4:30 AM EDUCATIONAL RECRUITER 09/24/2023 4:37 AM EDUCATIONAL RECRUITER Clayton Frazier MD LAB - CHEMISTRY ORDE RABANIL Performing Organization Address City/[facility]/ZIP Co de Phone Number [address] [address], [facility] [phone] * TYPE + SCREEN PANEL (09/24/2023 4:30 AM EDUCATIONAL RECRUITER) Only the most recent of2 resultswithin the time period is included. [facility] Antibody Screen NEG 5:14 AM EDUCATIONAL RECRUITER [facility] BLOOD BANK LAB ABO Rh A NEG 09/24/2023 5:14 AM [facility] BLOOD [facility] LAB Blood Bank BLOOD SPECIMEN / Unknown Venipuncture / Unknown 09/24/2023 4:30 AM EDUCATIONAL RECRUITER 09/24/2023 4:37 AM EDUCATIONAL RECRUITER Clayton Frazier MD LAB - BLOOD BANK ORD ERABLES [facility] [address] [place] [address], [facility] [phone] * (ABNORMAL) COMPREHENSIVE METABOLIC PANEL (09/24/2023 4:30 AM EDUCATIONAL RECRUITER) [facility] BUN 16 7 - 26 mg/dL 09/24/2023 5:10 AM [facility] Creatinine 0.91 0.56 - 0.96 mg/dL 09/24/2023 5:10 AM [facility] Sodium 141 136 - 145 mmol/L 09/24/2023 5:10 AM [facility] Potassium 3.9 3.5 - 4.5 mmol/L 09/24/2023 5:10 AM [facility] Comment:Hemolysis detected i n this specimen. Hemolysis may cause false elevations in potassium leading to pseudohyperkalemia or masked hypokalemia. Recommend repeat testing if clinically indicated. Chloride 107 98 - 107 mmol/L 09/24/2023 5:10 AM [facility] CO2 24 22 - 29 mmol/L 09/24/2023 5:10 AM [facility] Glucose 77 70 - 115 mg/dL 09/24/2023 5:10 AM [facility] Calcium 9.4 8.4 - 10.2 mg/dL 09/24/2023 5:10 AM [facility] Protein Total 7.7 6.0 - 8.3 g/dL 09/24/2023 5:10 AM [facility] Comment:Hemolysis detected i n this specimen. Hemolysis is known to cause elevations in this analyte. Caution should be exercised in the interpretation of this result. Recommend repeat testing if clinically indicated. Albumin 4.2 3.4 - 5.0 g/dL 09/24/2023 5:10 AM [facility] Bilirubin Total 0.3 0.2 - 1.2 mg/dL 09/24/2023 5:10 AM [facility] Alkaline Phosphatase 93 40 - 150 U/L 09/24/2023 5:10 AM [facility] ALT 18 5 - 55 U/L 09/24/2023 5:10 AM [facility] AST 34 5 - 34 U/L 09/24/2023 5:10 AM [facility] Comment:Hemolysis detected i n this specimen. Hemolysis is known to cause elevations in this analyte. Caution should be exercised in the interpretation of this result. Recommend repeat testing if clinically indicated. Anion Gap 10 6 - 16 09/24/2023 5:10 AM [facility] BUN/Creatinine Ratio 18 7 - 23 09/12 5:10 AM [facility] Osmolality Calculated 292 275 - 295 mOsm/kg 09/24/2023 5:10 AM [facility] Albumin/Globulin Ratio 1.2 1.1 - 2.3 5:10 AM [facility] eGFR by CKD-EPI 74(L) >=90 mL/min/1. 73 m2 09/24/2023 5:10 AM [facility] Blood BLOOD SPECIMEN / Unknown Venipuncture / Unknown 09/24/2023 4:30 AM EDUCATIONAL RECRUITER 09/24/2023 4:37 AM EDUCATIONAL RECRUITER Clayton Frazier MD LAB - CHEMISTRY ORDE UMESH [facility] [address] [place] [address], [facility] [phone] * INR WHOLE BLOOD - POINT OF CARE (IP) STROKE (09/24/2023 4:28 AM EDUCATIONAL RECRUITER) INR 1.0 0.9 - 1.2 09/25/2023 11:05 AM [facility] Device [id number] 09/25/2023 11:05 AM [facility] Forensics Analyst ID [id number] 09/25/2023 11:05 AM [facility] Blood BLOOD SPECIMEN / Unknown 09/24/2023 4:28 AM EDUCATIONAL RECRUITER 09/25/2023 11:05 AM EDUCATIONAL RECRUITER Provider Unknown LAB - POINT OF CARE ORDERABLES [facility] [address] [place] [address], [place] [phone] * (ABNORMAL) CREATININE - POCT INTERFACED (09/24/2023 4:27 AM EDUCATIONAL RECRUITER) Creatinine POCT 0.78 0.30 - 1.30 mg/dL 09/25/2023 4:00 PM [facility] eGFR 89(L) >90 mL/min/1.7 3 m2 09/25/2023 4:00 PM [facility] Blood BLOOD SPECIMEN / Unknown 09/24/2023 4:27 AM EDUCATIONAL RECRUITER 09/25/2023 4:00 PM EDUCATIONAL RECRUITER Provider Unknown LAB - POINT OF CARE ORDERABLES Performing Organization Address City/[facility]/ZIP Co de Phone Number [address] [address], [facility] [phone] * GLUCOSE - POINT OF CARE (09/24/2023 4:14 AM EDUCATIONAL RECRUITER) Only the most recent of5 resultswithin the time period is included. Glucose WB/POC 105 70 - 115 mg/dL 09/24/2023 4:18 AM EDUCATIONAL RECRUITER [facility] Specimen Type Cap Fingerstick 2023 4:18 AM EDUCATIONAL RECRUITER [facility] Blood BLOOD SPECIMEN / Unknown 09/24/2023 4:14 AM EDUCATIONAL RECRUITER 09/24/2023 4:18 AM EDUCATIONAL RECRUITER Provider Unknown LAB - POINT OF CARE ORDERABLES Performing Organization Address [facility]/ZIP Co de Phone Number [address] [address], [facility] [phone] * CT BRAIN - Stroke (09/24/2023 4:07 AM EDUCATIONAL RECRUITER) Anatomical Region Laterality Modality Head Computed Tomogra phy 09/24/2023 7:04 AM EDUCATIONAL RECRUITER Impressions 09/24/2023 10:33 AM EDUCATIONAL RECRUITER IMPRESSION: 1.No acute intracranial hemorrhage. 2.Please note that CT is insensitive to nonhemorrhagic strokes and MRI should be considered if there is clinical concern for acute infarction. 3.Fundus examination is recommended to exclude papilledema and/or the possibility of idiopathic intracranial hypertension (IIH). > Dictated by Theo Hebert DO (vice president lending) ILay MD have personally reviewed and interpreted this examination/study. > Interpreting Provider: Lay Chaudhry MD on 09/24/2023 10:33 AM Narrative 09/24/2023 10:33 AM EDUCATIONAL RECRUITER PROCEDURE: CT BRAIN STROKE, DATE/TIME OF EXAM: 09/24/2023 4:14 AM, LOCATION [facility] INDICATION: Code Stroke EXAMINATION: Computed tomography (CT) [...] DATE/TIME OF EXAM: 09/24/2023 4:14 AM, LOCATION [facility] INDICATION: Code Stroke EXAMINATION: Computed tomography (CT) [...] Dictated by Theo Hebert DO (vice president lending) Lay Casillas MD have personally reviewed and interpretedthis examination/study. > Interpreting Provider: Lay Chaudhry MD on 09/24/2023 10:33 AM Clayton Frazier MD CT ORDERABLES * SARS-COV-2 (COVID-19) RAPID (09/07/2023 12:13 PM EDUCATIONAL RECRUITER) Pathologist [facility] COVID-19 PCR Not detected Not detected 09/07/19 12:57 PM [facility] Microbiology SPECIMEN FROM NASOPHARYNGEAL STRUCTURE / Unknown Collection / Unknown 09/07/2023 12:13 PM EDUCATIONAL RECRUITER 09/07/2023 12:22 PM EDUCATIONAL RECRUITER Narrative [facility] - 09/07/2023 12:57 PM EDUCATIONAL RECRUITER The Cep1[employer] Pty Xpert Xpress SARS-COV-2 has been authorized by [...] - MICROBIOLOGY O RDERATOSIN Performing Organization Address City/State/[facility] Co de Phone Number [facility] [address] [place] [address], [facility] [phone] * (ABNORMAL) BASIC METABOLIC PANEL (CALCIUM TOTAL) (09/07/2023 6:38 AM EDUCATIONAL RECRUITER) Only the most recent of2 resultswithin the time period is included. Pathologist [facility] BUN 9 7 - 26 mg/dL 09/07/2023 7:57 AM [facility] Creatinine 0.88 0.56 - 0.96 mg/dL 09/07/2023 7:57 AM [facility] Sodium 140 136 - 145 mmol/L 09/07/2023 7:57 AM [facility] Potassium 3.1(L) 3.5 - 4.5 mmol/L 09/07/2023 7:57 AM [facility] Chloride 107 98 - 107 mmol/L 09/07/2023 7:57 AM [facility] CO2 24 22 - 29 mmol/L 09/07/2023 7:57 AM [facility] Glucose 98 70 - 115 mg/dL 09/07/2023 7:57 AM [facility] Calcium 9.1 8.4 - 10.2 mg/dL 09/07/2023 7:57 AM [facility] Anion Gap 9 6 - 16 09/07/2023 7:57 AM [facility] BUN/Creatinine Ratio 10 7 - 23 09/07/2023 7:57 AM [facility] Osmolality Calculated 289 275 - 295 mOsm/kg 09/07/2023 7:57 AM [facility] eGFR by CKD-EPI 77(L) >=90 mL/min/1.7 3 m2 09/07/2023 7:57 AM [facility] Blood BLOOD SPECIMEN / Unknown Lab Venipuncture / Unknown 09/07/2023 6:38 AM EDUCATIONAL RECRUITER 09/07/2023 7:30 AM EDUCATIONAL RECRUITER Timi Mills MD LAB - CHEMISTRY ORD ERABLES [address] [address], [facility] [phone] * PHOSPHORUS BLOOD (09/07/2023 6:38 AM EDUCATIONAL RECRUITER) Only the most recent of2 resultswithin the time period is included. Phosphorus 3.6 2.9 - 5.1 mg/dL 09/07/2023 7:57 AM [facility] Blood BLOOD SPECIMEN / Unknown Lab Venipuncture / Unknown 09/07/2023 6:38 AM EDUCATIONAL RECRUITER 09/07/2023 7:30 AM EDUCATIONAL RECRUITER Timi Mills MD LAB - CHEMISTRY ORD ERABLES [address] [address], [facility] [phone] * MAGNESIUM BLOOD (09/07/2023 6:38 AM EDUCATIONAL RECRUITER) Only the most recent of2 resultswithin the time period is included. Magnesium 1.6 1.6 - 2.6 mg/dL 09/07/2023 7:57 AM EDUCATIONAL RECRUITER [facility] Blood BLOOD SPECIMEN / Unknown Lab Venipuncture / Unknown 09/07/2023 6:38 AM EDUCATIONAL RECRUITER 09/07/2023 7:30 AM EDUCATIONAL RECRUITER Timi Mills MD LAB - CHEMISTRY ORD ERABLES [facility] [address] [place] [address], [facility] [phone] * CT ANGIO BRAIN AND NECK (09/06/2023 3:30 PM EDUCATIONAL RECRUITER) Anatomical Region Laterality Modality Head Computed Tomogra phy 09/06/2023 3:32 PM EDUCATIONAL RECRUITER Impressions 09/06/2023 3:41 PM EDUCATIONAL RECRUITER IMPRESSION: 1. No acute intracranial hemorrhage. 2. No large arterial occlusions or significant stenoses identified in the head or neck. Scattered atherosclerotic disease in the neck arteries. 3. 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 > Interpreting Provider: Romi Dutton MD on 09/06/2023 3:41 PM Narrative 09/06/2023 3:41 PM EDUCATIONAL RECRUITER PROCEDURE: CT ANGIO BRAIN AND NECK, DATE/TIME OF EXAM: 09/06/2023 3:30 PM, LOCATION [facility] INDICATION: G45.9: TIA (transient ischemic attack) ADDITIONAL [...] NECK, DATE/TIME OF EXAM: 09/06/2023 3:30PM, LOCATION [facility] INDICATION: G45.9: TIA (transient ischemic attack) ADDITIONAL [...] COLOR FLOW AND DOPPLER (09/06/2023 10:11 AM EDUCATIONAL RECRUITER) BSA [id number] m2 [facility] CV FUJ I PACS LV [...] 1.2 cm [facility] CV FUJ I PACS [id number] 4.285 cm [facility] CV FUJ I PACS [id number] 4.463 cm [facility] CV FUJ I PACS [...] Laterality Modality Ultrasound Narrative 09/06/2023 10:58 AM EDUCATIONAL RECRUITER Left Ventricle: Left ventricle size is normal. [...] remodeling. Normal systolic function. EF by 2D Otrega biplane is 64%. Normal wall motion. Unable [...] CT HEAD WO CONTRAST (09/06/2023 4:04 AM EDUCATIONAL RECRUITER) Anatomical Region Laterality Modality Head Computed Tomogra phy 09/06/2023 8:41 AM EDUCATIONAL RECRUITER Impressions 09/06/2023 9:03 AM EDUCATIONAL RECRUITER IMPRESSION: 1.No acute intracranial hemorrhage. > Dictated by Chriss Hebert DO (vice president talent management). I, Lay Chaudhry MD have personally reviewed and interpreted this examination/study. > Interpreting Provider: Lay Chaudhry MD on 09/06/2023 9:03 AM Narrative 09/06/2023 9:03 AM EDUCATIONAL RECRUITER PROCEDURE: CT HEAD WO CONTRAST, DATE/TIME OF EXAM: 09/06/2023 4:05 AM, LOCATION [facility] INDICATION: I63.9: Ischemic stroke ([facility]) ADDITIONAL CLINICAL INFORMATION: Ordering Provider Reason For [...] DATE/TIME OF EXAM: 09/06/2023 4:05 AM, LOCATION [facility] INDICATION: I63.9: Ischemic stroke ([facility]) ADDITIONAL CLINICAL INFORMATION: Ordering Provider Reason [...] Dictated by Chriss Hebert DO (vice president talent management). ILay MD have personally reviewed and interpretedthis examination/study. > Interpreting Provider: Lay Chaudhry MD on 09/06/2023 9:03 AM Timi Mills MD CT ORDERABLES * (ABNORMAL) URINALYSIS REFLEX TO MICROSCOPIC NO CULTURE (09/06/2023 2:58 AM EDUCATIONAL RECRUITER) Color UA Colorless(A ) Straw, Yellow 09/06/2023 3:17 AM [facility] Clarity UA Clear Clear 09/06/2023 3:17 AM [facility] Specific [place] UA 1.003(L) 1.005 - 1.030 09/06/2023 3:17 AM [facility] pH UA 7.0 5.0 - 8.0 pH 09/06/2023 3:17 AM [facility] Protein UA Negative Negative 09/06/2023 3:17 AM [facility] Glucose UA Negative Negative 09/06/2023 3:17 AM [facility] Ketone UA Negative Negative 09/06/2023 3:17 AM [facility] Bilirubin UA Negative Negative 09/06/2023 3:17 AM [facility] Blood UA Negative Negative 09/06/2023 3:17 AM [facility] Nitrite UA Negative Negative 09/06/2023 3:17 AM [facility] Leukocyte Esterase Negative Negative 09/06/2023 3:17 AM [facility] Urobilinogen UA Negative Negative mg/dL 09/06/2023 3:17 AM [facility] RBC UA 0-2 None Seen, 0-2, 3-5 /HPF 09/06/2023 3:17 AM [facility] WBC UA 0-5 None Seen, 0-5 /HPF 09/06/2023 3:17 AM [facility] Squamous Epithelial Cells UA None Seen None Seen, 0-2, 3-5 /HPF 09/06/2023 3:17 AM [facility] Urine URINE SPECIMEN OBTAINED BY CLEAN CATCH PROCEDURE / Unknown Collection / Unknown 09/06/2023 2:58 AM EDUCATIONAL RECRUITER 09/06/2023 3:10 AM EDUCATIONAL RECRUITER Narrative [facility] - 09/06/2023 3:17 AM EDUCATIONAL RECRUITER Timi Mills MD LAB - URINALYSIS OR DERABLES [facility] [address] [place] [address], [facility] [phone] * (ABNORMAL) URINE DRUG SCREEN IMMUNOASSAY (09/06/2023 2:58 AM [facility]) Amphetamines Screen Urine Negative Negative : < 1000 ng/mL 09/06/2023 3:32 AM [facility] Barbiturates Screen Urine Negative Negative : < 200 ng/mL 09/06/2023 3:32 AM [facility] Benzodiazepine Screen Urine Negative Negative : < 200 ng/mL 09/06/2023 3:32 AM [facility] Opiates Urine Positive(A) Negative : < 300 ng/mL 09/06/2023 3:32 AM [facility] Comment:Positive urine opiat e screening results should be confirmed by another generally accepted non-immunological method such as gas chromatography or mass spectrometry. Cocaine Metabolites Urine Negative Negative : < 300 ng/mL 09/06/2023 3:32 AM [facility] Phencyclidine Screen Urine Negative Negative : < 25 ng/ml 09/06/2023 3:32 AM [facility] Cannabinoids Screen Urine Positive(A) Negative : <50 ng/mL 09/06/2023 3:32 AM [facility] Comment:Positive urine canna binoids (THC) screening results should be confirmed by another generally accepted non-immunological method such as gas chromatography or mass spectrometry. Methadone Screen Urine Negative Negative : < 300 ng/mL 09/06/2023 3:32 AM [facility] Fentanyl Screen Urine Negative Negative : <1.5 ng/mL 09/06/2023 3:32 AM [facility] Urine URINE / Unknown Collection / Unknown 09/06/2023 2:58 AM [facility] 09/06/2023 3:10 AM [facility] Narrative [facility] - 09/06/2023 3:32 AM [facility] The Urine Toxicology Screening Panel does not screen for Propoxyphene, Meprobamate, Carisoprodol, Trazodone, amfy-xpp-dsiskza medications and/or volatiles (Acetone, Isopropanol, Methanol or Ethylene Glycol). Ethanol, Salicylate, Acetaminophen, Tricyclic Antidepressants and several therapeutic drugs may be individually assayed in serum or plasma specimen. Toxicology testing by the [facility] is an aid to medical diagnosis and treatment of patients. No documented chain of custody was maintained. Results are intended to be used for clinical purposes only. Timi Mills MD LAB - URINE LABOR ARBITRATOR RY ORDERABLES [address] [address], [facility] [phone] * LIPID PROFILE (09/06/2023 1:46 AM [facility]) Cholesterol Total 144 <200 mg/dL 09/06/2023 3:28 AM [facility] HDL 42 >40 mg/dL 09/06/2023 3:28 AM [facility] Comment: ATP III Classification of HDL Cholesterol: <40 mg/dL: Considered a major risk factor. >60 mg/dL: Considered a negative risk factor. LDL Calculated 86 <100 mg/dL 09/06/2023 3:28 AM [facility] Comment: ATP III Classification of LDL Cholesterol: <100 mg/dL: Optimal 100 - 129 mg/dL: Near Optimal/Above Optimal 130 - 159 mg/dL: Borderline High 160 - 189 mg/dL: High >190 mg/dL: Very High Triglycerides 79 <150 mg/dL 09/06/2023 3:28 AM [facility] Comment: ATP III Classification of Triglycerides: <150 mg/dL: Normal 150 - 199 mg/dL: Borderline High 200 - 400 mg/dL: High >500 mg/dL: Very High Blood BLOOD SPECIMEN / Unknown Lab Venipuncture / Unknown 09/06/2023 1:46 AM EDUCATIONAL RECRUITER 09/06/2023 2:51 AM EDUCATIONAL RECRUITER Timi Mills MD LAB - CHEMISTRY ORD ERABLES [facility] [address] [place] [address], [facility] [phone] * GROSS + MICRO EXAM (10/14/1999 8:35 AM EDUCATIONAL RECRUITER) Only the most recent of2 resultswithin the [...] AND FOREIGN BODY GIANT CELL REACTION SR/KA [id number] X3 Released By LINDA VICENTE MISCELLANEOUS SAMPLES / Unknown 10/14/1999 8:35 AM EDUCATIONAL RECRUITER 10/14/1999 8:37 AM EDUCATIONAL RECRUITER Historical Provider LAB - PATHOLOGY/C YTOLOGY ORDERABLES Care Teams Cushion Padder Relationship Specialty Start Date End Date Fernando Chavez MD [address] [place] [address] PCP - General Family Medicine 09/06/23
--- OUTSIDE RECORDS SUMMARY | 2024-09-23 00:04 | XMS_ITS | Clinical Summary ---
Author Organization [facility] Address [address] [place] [address] Care Team Providers Care Party Plan Demonstrator Name Role Phone Fernando Chavez MD Primary Care Provider Source Comments [facility],non-owned Affiliates and Associated Physician Practices is amultiple site organization consisting of ambulatory clinics and hospital sitesin [place], [place], [place] and [place]. This disclosure is being madepursuant to the Care Everywhere program and may not contain all information available regarding this patient. Last updated 18.[employer] [facility] Allergies Active Allergy Reactions Criticality Noted Date [...] Respiratory Rate 10 10/18/2023 11:1 1 AM KST OPERATOR Oxygen Saturation 98% 11/14/2023 3:18 PM [...] Comments LIPID PROFILE Routine 09/06/2023 1:46 AM KST OPERATOR from Last 3 Months or Most Recently Relevant to Health Maintenance Results * LIPID PROFILE (09/06/2023 1:46 AM KST OPERATOR) Cholesterol Total 144 <200 mg/dL 09/06/2023 3:28 AM [facility] HDL 42 >40 mg/dL 09/06/2023 3:28 AM [facility] Comment: ATP III Classification of HDL Cholesterol: <40 mg/dL: Considered a major risk factor. >60 mg/dL: Considered a negative risk factor. LDL Calculated 86 <100 mg/dL 09/06/2023 3:28 AM [facility] Comment: ATP III Classification of LDL Cholesterol: <100 mg/dL: Optimal 100 - 129 mg/dL: Near Optimal/Above Optimal 130 - 159 mg/dL: Borderline High 160 - 189 mg/dL: High >190 mg/dL: Very High Triglycerides 79 <150 mg/dL 09/06/2023 3:28 AM [facility] Comment: ATP III Classification of Triglycerides: <150 mg/dL: Normal 150 - 199 mg/dL: Borderline High 200 - 400 mg/dL: High >500 mg/dL: Very High Blood BLOOD SPECIMEN / Unknown Lab Venipuncture / Unknown 09/06/2023 1:46 AM KST OPERATOR 09/06/2023 2:51 AM [facility] Timi Mills MD LAB - CHEMISTRY ORD ERABLES [facility] [address] [place] [address], [facility] [phone] from Last 3 Months or Most Recently Relevant to Health Maintenance Advance Directives Documents on File Type Date Recorded Patient Vice President Of Operations Expl anation Adv Directive/Living Will/POA 09/09/2023 12:24 PM * LIMITED RESUSCITATION-PRIOR AND AFTER ARREST (Latest Code Status on File) Date Activated Date Inactivated Comments 09/06/2023 1:33 AM 09/07/2023 6:35 PM Question Answer Comments Limited Resuscitation: No Intubation, No Invasiv e Ventilation Care Teams Party Plan Demonstrator Relationship Specialty Start Date End Date Fernando Chavez MD [address] [place] [address] PCP - General Family Medicine 09/06/23
--- OUTSIDE RECORDS SUMMARY | 2024-09-23 00:04 | XMS_ITS | Referral Summary ---
Author Organization [facility] Address [address] [place] [address] Care Team Providers Care Tool Liaison Name Role Phone Fernando Chavez MD Primary Care Provider Encounters Date Type Department Care Team Description 06/25/2024 1:22 AM BANKING SPECIALIST - 06/25/2024 11:59 PM BANKING SPECIALIST Hospital Encounter [facility] Emergency, Room [...] 07/02/2021 Assessment & Plan (07/02/2021 11:18 AM BANKING SPECIALIST): Pt's systolic blood pressure was noted to [...] metoprolol for now. Pt is contact her communications instructor tomorrow for further instructions. Fall 06/29/2021 Assessment & Plan (07/02/2021 11:10 AM BANKING SPECIALIST): Mechanical fall day prior to presentation with right hip pain. No prior history of hip pain. Xray of hip and knee were negative. Continue management with nonnarcotic meds. Home health referral made outpt. Assessment & Plan (07/01/2021 10:55 AM BANKING SPECIALIST): Mechanical fall day prior to presentation with right hip pain. No prior history of hip pain. Xray of hip and knee were negative. Continue management with nonnarcotic meds. PT consulted. Assessment & Plan (06/30/2021 11:54 AM BANKING SPECIALIST): Mechanical fall yesterday with right hip pain. No prior history of hip pain. Xray of hip and knee were negative. Continue management with nonnarcotic meds. PT consulted but pt refused to work with PT this morning. Assessment & Plan (06/29/2021 1:48 PM BANKING SPECIALIST): Mechanical fall yesterday with right hip pain. No prior history of hip pain. Xray of hip and knee were negative. Continue management with nonnarcotic meds. Acute hypoxemic respiratory failure 02/08/2021 Elevated troponin 01/14/2021 Atypical chest pain 01/14/2021 Assessment & Plan (07/02/2021 11:09 AM BANKING SPECIALIST): Troponins are negative. Continue to follow with communications instructor as outpatient. Assessment & Plan (07/01/2021 10:54 AM BANKING SPECIALIST): Troponins are negative. Continue to follow with communications instructor as outpatient. Assessment & Plan (06/30/2021 11:52 AM BANKING SPECIALIST): Troponins are negative. Continue to follow with communications instructor as outpatient. Assessment & Plan (06/29/2021 1:45 PM BANKING SPECIALIST): Troponins are negative. Continue to follow with communications instructor as outpatient. Hepatitis 01/14/2021 Tylenol overdose 01/14/2021 [...] (04/11/2020): Added automatically from request for surgery [id number] Assessment & Plan (07/02/2021 10:58 AM BANKING SPECIALIST): Please see constipation noted elsewhere. CT is otherwise unremarkable. Pt also has underlying chronic abdominal pain. Assessment & Plan (07/01/2021 10:53 AM BANKING SPECIALIST): Please see constipation noted elsewhere. CT is otherwise unremarkable. Pt also has underlying chronic abdominal pain. Assessment & Plan (06/30/2021 11:49 AM BANKING SPECIALIST): Please see constipation noted elsewhere. CT is otherwise unremarkable. Pt also has underlying chronic abdominal pain. Assessment & Plan (06/29/2021 1:48 PM BANKING SPECIALIST): Please see constipation noted elsewhere. CT is [...] NOS Assessment & Plan (07/02/2021 11:09 AM BANKING SPECIALIST): Continue home meds. Assessment & Plan (07/01/2021 10:53 AM BANKING SPECIALIST): Continue home meds. Assessment & Plan (06/30/2021 11:51 AM BANKING SPECIALIST): Continue home meds. Assessment & Plan (06/29/2021 1:46 PM BANKING SPECIALIST): Continue home meds. Assessment & Plan (04/23/2020 1:50 PM CDT): - home clonazepam 0.5mg BID Acute cerebrovascular insufficiency 12/26/2013 Overview (11/16/2016): AC CEREBROVASC INSUF NOS Constipation Assessment & Plan (07/02/2021 11:09 AM BANKING SPECIALIST): Pt's history and CT suggests this; no suggestion of bowel obstruction on CT. Continue bowel regimen and monitor for stools. Avoid narcotics; pt reports she is not on any narcotics at home. Mag citrate was tried per pt's request but this did not result in bm. She drank @ 2L of Golytely with good results. Assessment & Plan (07/01/2021 10:53 AM BANKING SPECIALIST): Pt's history and CT suggests this; no suggestion of bowel obstruction on CT. Continue bowel regimen and monitor for stools. Avoid narcotics; pt reports she is not on any narcotics at home. Mag citrate was tried yesterday per pt's request but this did not result in bm. She drank @ 2L of Golytely with good results. Assessment & Plan (06/30/2021 11:50 AM BANKING SPECIALIST): Pt's history and CT suggests this; no suggestion of bowel obstruction. Continue bowel regimen and monitor for stools. Avoid narcotics; pt reports she is not on any narcotics at home. Mag citrate was tried yesterday per pt's request but this did not result in bm. Plan is to place NG and give Golytely through this today. Assessment & Plan (06/29/2021 1:44 PM BANKING SPECIALIST): Pt's history and CT suggests this; no [...] often do you attend chur ch or church services? 1 to 4 times per year 02/09/2021 Do you belong to any clubs o r organizations such as baptism groups, unions, fraternal or athletic groups, or [...] on file Legal Sex Female 5:42 AM BANKING SPECIALIST Gender Identity Not on file Sexual [...] Not on file Insurance [employer] MED[employer] HMO [facility] CHOICE [facility] CHOICE [employer] MED[employer]ARE HMO Advance Directives For more information, please contact: [phone] * Full Code (Latest Code Status on [...] 4:23 PM 04/28/2020 8:27 PM Care Teams Tool Liaison Relationship Specialty Start Date End Date Fernando Chavez MD [address] [place], [place] [id number] PCP - General Family Medicine 03/05/24
--- OUTSIDE RECORDS SUMMARY | 2024-09-23 00:04 | XMS_ITS | CONTINUITY OF CARE DOCUMENT ---
Author Name doyle kwon Address Unknown Organization [facility] Address [address] [place] [address] Phone [phone] Care Team Providers Care Leather Stretcher Name Role Phone Iglesia Osorio MD Unavailable DONTE PAT MD Unavailable DONTE PAT MD Unavailable [phone] INSURANCE PROVIDERS Payer name Policy type / Coverage type [place] red green party ID [facility] [id number]
--- OUTSIDE RECORDS SUMMARY | 2024-09-23 00:04 | XMS_ITS | Referral Summary ---
Author Organization [facility] [employer] Address [address] [place] [address] Care Team Providers Care Instrument Adjuster Name Role Phone Fernando Chavez MD Primary Care Provider Source Comments [facility] [employer],non-owned Affiliates and Associated Physician Practices is amultiple site organization consisting of ambulatory clinics and hospital sitesin [place], [place], [place] and [place]. This disclosure is being madepursuant to the Care Everywhere program and may not contain all information available regarding this patient. Last updated 18.[facility] [employer] Allergies Active Allergy Reactions Criticality Noted [...] Respiratory Rate 10 10/18/2023 11:1 1 AM VENUE ATTENDANT Oxygen Saturation 98% 11/14/2023 3:18 PM CDT [...] Comments LIPID PROFILE Routine 09/06/2023 1:46 AM VENUE ATTENDANT from Last 3 Months or Most Recently Relevant to Health Maintenance Results * LIPID PROFILE (09/06/2023 1:46 AM VENUE ATTENDANT) [facility] Signature Cholesterol Total 144 <200 mg/dL 09/06/2023 3:28 AM [facility] HDL 42 >40 mg/dL 09/06/2023 3:28 AM [facility] Comment: ATP III Classification of HDL Cholesterol: <40 mg/dL: Considered a major risk factor. >60 mg/dL: Considered a negative risk factor. LDL Calculated 86 <100 mg/dL 09/06/2023 3:28 AM [facility] Comment: ATP III Classification of LDL Cholesterol: <100 mg/dL: Optimal 100 - 129 mg/dL: Near Optimal/Above Optimal 130 - 159 mg/dL: Borderline High 160 - 189 mg/dL: High >190 mg/dL: Very High Triglycerides 79 <150 mg/dL 09/06/2023 3:28 AM [facility] Comment: ATP III Classification of Triglycerides: <150 mg/dL: Normal 150 - 199 mg/dL: Borderline High 200 - 400 mg/dL: High >500 mg/dL: Very High Blood BLOOD SPECIMEN / Unknown Lab Venipuncture / Unknown 09/06/2023 1:46 AM VENUE ATTENDANT 09/06/2023 2:[address] VENUE ATTENDANT Timi Mills MD LAB - CHEMISTRY ORD ERABLES [facility] [address] [place] [address], [facility] [phone] from Last 3 Months or Most Recently Relevant to Health Maintenance Advance Directives Documents on File Type Date Recorded Patient Research And Evaluation Analyst Expl anation Adv Directive/Living Will/POA 09/09/2023 12:24 PM * LIMITED RESUSCITATION-PRIOR AND AFTER ARREST (Latest Code Status on File) Date Activated Date Inactivated Comments 09/06/2023 1:33 AM 09/07/2023 6:35 PM Question Answer Comments Limited Resuscitation: No Intubation, No Invasiv e Ventilation Care Teams Instrument Adjuster Relationship Specialty Start Date End Date Fernando Chavez MD [address] [place] [address] PCP - General Family Medicine 09/06/23
[2024-09-23] MEDS: LACTATED RINGERS 1,000 ML 30 ML IV CONT (07:45)
[2024-09-23 08:12] VITALS: BP 134/74; PULSE 96; RESP 16; TEMP 36.6; O2SAT 100
--- NOTE | 2024-09-23 08:32 | WPDHPUPDATE1 ---
History and Physical Update Update Date/Time: 09/23/24 08:32 History and Physical has been reviewed, including an updated exam of the patient. There are NO changes in the patient's condition. Risks, benefits, and alternatives have been discussed and questions answered. Patient agrees to proceed with procedure.
--- NOTE | 2024-09-23 09:12 | P.PNAN_ITS ---
Anes - Initial Pre Proc Eval Procedure: Operation Date: 09/23/24 09:30 Proposed Procedures p Excision of Subcutaneous Mass Right Buttock - Mynor Schmitz MD Date/Time: 09/23/24 09:12 Surgeon: Mynor Schmitz MD Pre Op Diagnosis: Subq Mass Right Buttock Patient Data Age: 58 Gender: F Height: 1.63 m Weight: 44 kg Last Vital Signs Temp 97.9 F 09/23/24 08:12 Pulse 96 09/23/24 08:12 Resp 16 09/23/24 08:12 BP 134/74 09/23/24 08:12 Pulse Ox 100 09/23/24 08:12 O2 Del Method Room Air 09/23/24 08:12 Allergies Allergy/AdvReac Type Severity Reaction Status Date / Time adhesive tape Allergy Rash Verified 09/16/24 15:25 venlafaxine (From Effexor) AdvReac Intermediate Other Verified 09/16/24 15:25 bupropion (From Wellbutrin) AdvReac ALTERED Verified 09/16/24 15:25 MENTAL STATUS codeine AdvReac Itching Verified 09/16/24 15:25 diphenhydramine (From AdvReac Jittery Verified 09/16/24 15:25 Benadryl) duloxetine (From Cymbalta) AdvReac ALTERED Verified 09/16/24 15:25 MENTAL STATUS gabapentin AdvReac Confusion Verified 09/16/24 15:25 sertraline (From Zoloft) AdvReac Confusion Verified 09/16/24 15:25 Home Medications ?Medication ?Instructions ?Recorded ?Confirmed ?Type Centrum Silver Women 1 tab-cap PO DAILY 09/04/23 09/23/24 History clonazepam 0.5 mg tablet (Klonopin) 0.5 mg PO TID 09/04/23 09/23/24 History cyclobenzaprine 10 mg tablet 10 mg PO TID 09/04/23 09/23/24 History ondansetron 8 mg disintegrating 8 mg PO Q6H PRN Nausea And Vomiting 09/04/23 09/16/24 History tablet trazodone 150 mg tablet 150 mg PO HS PRN Sleep 09/04/23 09/16/24 History clopidogrel 75 mg tablet 75 mg PO DAILY 05/20/24 09/23/24 History ciprofloxacin HCl 500 mg tablet 500 mg PO Q12H 10 days #20 tabs 09/15/24 09/16/24 Rx lactulose 10 gram/15 mL oral 10 g (15 mL) PO BID #237 mL 09/15/24 09/16/24 Rx solution metronidazole 500 mg tablet 500 mg PO Q8H 10 days #30 tabs 09/15/24 09/16/24 Rx aspirin 81 mg tablet,delayed 81 mg PO DAILY 09/16/24 09/23/24 History release (Adult Low Dose Aspirin) vitamin A 2,500 unit-vit C 100 1 cap PO DAILY 09/16/24 09/23/24 History mg-biotin 2,500 [id number]-ukqdmp capsule (Qeyu-Zere-Cupj (vit A,H-ckrwvj-Ub-Cu)) vitamin E 268 mg (400 unit) capsule 268 mg PO DAILY 09/16/24 09/23/24 History dicyclomine 10 mg capsule 10 mg PO QID PRN abdominal pain 09/22/24 Rx #120 caps Patient hx anesthesia problems: post op nausea/vomiting Family hx anesthesia problems: none Results Review: All pre-operative results and documents have been reviewed as part of the pre- operative evaluation. [facility] Past Medical History Medical History Stenosis of right carotid artery 40% stenosis Lower abdominal pain History of histoplasmosis History of stroke [facility] Chronic pain Constipation Hypotension Bowel obstruction History of MRSA infection PONV (postoperative nausea and vomiting) Migraine Anxiety Endometriosis Osteoporosis Flank pain History of kidney stones Surgical History Surgical History History of pneumonectomy partial (left upper lobe) History of colostomy reversal History of colon resection History of hysterectomy History of abdominal surgery Family History Family History Unknown No problems noted. Mother Diabetes mellitus Heart disease Hypertension Mother No problems noted. Father Heart disease Hypertension Social History Social History Social History: Surrogate medical decision maker: Sarahy Fairchild, daughter. Code status: Full code. Smoking packs per day: 1 Smoking cigarettes per day: 20.0 Years smoked: 10 Smoking pack-years: 10.00 Smoking status: Former smoker Tobacco type: cigarettes Smoking end date: 09/16/11 Additional smoking assessment comments: Former smoker per chart. Belongings pt had 2 vapes. Pt intubated/sedated. Alcohol intake: current Drinks per week: 1 Alcohol use details: very rarely Substance use: current Substance use type: marijuana Other substance usage details: Vape THC on medical marijuana card. Last use: 09/04/23 Do You Feel Safe in your Home?: Yes Lack of Transportation: No Lack of Food: Never True Current Housing: I Have Housing Concerned About Future Housing: No Difficulty Paying Gas/Electric Bills: No Difficulty Paying for Meds: No Currently Unemployed: No Education: High School Diploma/GED Difficulty w/ Childcare or Family Care: No Living arrangements: alone Spiritual care concerns: No Anes - Eval Final PreProcedure Day of Procedure 09/23/24 09:12 Patient weight: cachectic Lungs: normal air movement Airway: Mallampati scale and special considerations (Edentulous. ) Neurological: alert and oriented Last oral intake: >/= 8 hours ASA classification: III Emergent: no Anesthetic plan: proceed Anesthesia type and monitoring: general LMA and standard monitoring Results Review: All pre-operative results and documents have been reviewed as part of the pre- operative evaluation. PTSD, neuropathy, PONV, carotid disease but pt has elected nonoperative tx. ECHO 08/2023 w nml LVEF, 60%. Informed Consent: The patient's anesthetic plan and its attendant risks and benefits were discussed with the patient/family/POA. Questions were solicited and answers provided to the satisfaction of the patient/family/POA.
[2024-09-23] MEDS: ceFAZolin 2 GM/D5W 50 ML 2 GM/50 ML BAG IVPB (09:45)
[2024-09-23] MEDS: BUPIVACAINE/EPINEPHRINE 0.5% 50 ML VIAL 30 ML INFILTRATE (10:03)
--- NOTE | 2024-09-23 10:16 | W.PM.PROC2 ---
Procedure Note - Detailed Date of Procedure 09/23/24 Pre-op Diagnosis Subq Mass Right Buttock Post-op Diagnosis Same Procedure Performed Excision 1.4 cm subcutaneous nodule right buttocks Surgeon Mynor Schmitz MD [employer] Ivonne Weiss [facility] Anesthesia General (LMA) Indications Patient has a very tender and painful firm subcutaneous nodule in the right buttocks in the area of her SI joint. It is palpable and by ultrasound was suggestive of fat necrosis. She has a history of falling down some stairs with significant bruising and injury to the right hip. She is taken to surgery now for excision of this right buttocks nodule. Findings Firm smooth 1.4 cm subcutaneous nodule. Did not involve muscular fascia. Description of Procedure Patient was checked in the preoperative holding area. The area of the nodule was marked on the skin. She was then taken to surgery and placed in left lateral decubitus position with the right hip slightly flexed. The right lateral buttocks and hip area were prepped and draped. The nodule was palpable. Local anesthetic was infiltrated over the area of the anticipated incision and in the subcutaneous. Incision was made and dissection carried down to the nodule. More local anesthetic was infiltrated in this area. The nodule was then dissected free from the surrounding subcutaneous. It was measured and was 1.4 cm in length. It was not excised with any margin. The wound was made hemostatic with the cautery. Additional local was infiltrated throughout the area of the wound. The wound was then closed with a deep layer of interrupted 4-0 Vicryl suture. Interrupted subcuticular 4-0 Vicryl suture were then placed. The wound was finally closed with a running 4-0 Monocryl skin suture. The wound was dressed with Exofin surgical adhesive. Patient was awakened and taken to recovery in good condition. Sponge and needle counts were correct x2. Estimated Blood Loss -1 Drains No Packing No Pathology Yes (Subcutaneous nodule, right buttocks) Complications None Condition Stable Disposition PACU [facility] Billing Surgery - Charge Forward: Surgery Billing (Excision 1.4 cm subcutaneous nodule right buttocks)
[2024-09-23 10:20] VITALS: BP 92/46; PULSE 77; RESP 16; TEMP 36.4; O2SAT 100
[2024-09-23 10:35] VITALS: BP 132/74; PULSE 100; RESP 13; O2SAT 100
[2024-09-23 10:50] VITALS: BP 156/80; PULSE 106; RESP 22; O2SAT 100
[2024-09-23 10:53] VITALS: BP 151/75; PULSE 90; RESP 18
[2024-09-23] MEDS: oxyCODONE HCL (*CRX) 5 MG TAB IR PO (11:13)
[2024-09-23 11:23] VITALS: BP 150/85; PULSE 94; RESP 18
--- NOTE | 2024-09-23 11:38 | SUR.PHASEII ---
1138: patient dressed and ready for dc. awaiting ride.
== END 2024-09-23 11:51 | disposition home or self-care (01) ==
PROVIDERS: PCP Family Medicine; Visit Provider Surgery
PROC: (CPT 21930; principal; 2024-09-23 09:30)
DX: M79.89 Other specified soft tissue disorders (principal); F12.90 Cannabis use, unspecified, uncomplicated; R64 Cachexia; Z68.1 Body mass index [BMI] 19.9 or less, adult
CPT/HCPCS: 21930; 88304; 88311; A9270; J0690; J1100; J2003; J2250; J2371; J2405; J2704; J3010; J7120

== ENCOUNTER 2024-09-27 09:48 | Emergency (ER) | payer MEDICARE, SELFPAY ==
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
--- OUTSIDE RECORDS SUMMARY | 2024-09-27 09:51 | XMS_ITS | Patient Health Summary ---
Author Organization [facility] Address [address] [place] [address] Care Team Providers Care Picture Framer Name Role Phone Fernando Chavez MD Primary Care Provider Note from [facility],non-owned Affiliates and Associated Physician Practices is amultiple site organization consisting of ambulatory clinics and hospital sitesin [place], [place], [place] and [place]. This disclosure is being madepursuant to the Care Everywhere program and may not contain all information available regarding this patient. Last updated 18.[facility] Allergies * Bupropion(Unknown) * Codeine(Itching) [...] Respiratory Rate 10 10/18/2023 11:1 1 AM MARGIN TRIMMER Oxygen Saturation 98% 11/14/2023 3:18 PM CDT [...] IR CAROTID CEREBRAL ANGIOGRAM (09/27/2023 2:09 PM MARGIN TRIMMER) Anatomical Region Laterality Modality Head X-Ray Angiograph y 09/27/2023 1:55 PM MARGIN TRIMMER Impressions 10/01/2023 10:25 AM MARGIN TRIMMER Impression: 1. Severe flow-limiting stenosis of the proximal right subclavian artery measuring 90%. 2. The Right carotid artery supplies the right anterior circulation as well as right posterior circulation via a right FLAMER AFTER LASTING. There is no contribution from the left [...] evaluation, please review the evaluation forms in [facility]. For details on monitored clinical parameters during the intra-service sedation time, please review the procedure nurse documentation in [facility]. ITimi MD have personally reviewed and interpreted this examination/study. > Interpreting Provider: Timi Mills MD on 10/01/2023 10:25 AM Narrative 10/01/2023 10:25 AM MARGIN TRIMMER PROCEDURE: IR CAROTID CEREBRAL ANGIOGRAM DATE/TIME OF [...] cerebral infarction.Vascular surgery consult of possible bypass. Language Therapist: Soham Mills Pipe Coremaker(s): Tanika Orourke Vessels: Ultrasound Guided Access of Femoral Artery Left Subclavian Artery Angiogram: Cervical and Cerebral Right Innominate Artery Angiogram: Cervical and Cerebral Left Common Carotid Artery Angiogram: Cervical and Cerebral Right Femoral Artery Angiogram Anesthesia: I, Dr. Julius Mills, was present for the entire duration of the procedure. Moderate sedation on this adult patient ws ordered by the ink jet operator, administered intravenously in my presence, and [...] patient evaluation, please review the evaluation in [facility]. For details on monitored clinical parameters during the intra-service sedation time, please review the procedure nurse documentation in [facility]. Procedural detail: The risks, benefits, [...] Following a series of exchanges, a 6 Bhutanese 30 cm Brite tip sheath was placed in the right femoral artery and a 5 Bhutanese sim2 catheter was navigated into the aortic [...] system. Hemostasis was achieved using a 6 Bhutanese Angio-Seal closure device. Hemostasis was immediate at [...] poor distal vessel opacification. A large right FLAMER AFTER LASTING is visualized. The right carotid artery supplies the right anterior circulation as well as right posterior circulation via a right FLAMER AFTER LASTING. The right vertebral artery is non-dominant with [...] cerebral infarction.Vascular surgery consult of possible bypass. Language Therapist: Soham Mills Pipe Coremaker(s): Tanika Orourke Vessels: Ultrasound Guided Access of Femoral Artery Left Subclavian Artery Angiogram: Cervical and Cerebral Right Innominate Artery Angiogram: Cervical and Cerebral Left Common Carotid Artery Angiogram: Cervical and Cerebral Right Femoral Artery Angiogram Anesthesia: I, Dr. Julius Mills, was present for the entire duration ofthe procedure. Moderate sedation on this adult patient ws ordered by the ink jet operator, administered intravenously in my presence, and [...] patient evaluation, please review the evaluation in [facility]. For details on monitored clinical parameters during theintra-service sedation time, please review the procedure nurse documentation in [facility]. Procedural detail: The risks, benefits, [...] documented. Following aseries of exchanges, a 6 Bhutanese 30 cm Brite tip sheath was placed in the right femoral artery and a 5 Bhutanese sim2 catheter was navigated into theaortic arch. [...] arterial system.Hemostasis was achieved using a 6 Bhutanese Angio-Seal closure device. Hemostasis was immediate at [...] poor distal vessel opacification. A large right FLAMER AFTER LASTING is visualized. The right carotid artery supplies the right anterior circulation as well as right posterior circulation via a right FLAMER AFTER LASTING. The right vertebral artery is non-dominant with [...] as right posterior circulation via a right FLAMER AFTER LASTING. There is no contribution from the left [...] patient evaluation,please review the evaluation forms in [facility]. For details on monitored clinical parameters during the intra-service sedation time, please review the procedure nurse documentation in [facility]. ITimi MD have personally reviewed and interpreted this examination/study. > Interpreting Provider: Timi Mills MD on 10/01/2023 10:25 AM Joseluis Bear MD IR ORDERABLES * (ABNORMAL) PTT [facility] (09/27/2023 9:29 AM MARGIN TRIMMER) Only the most recent of12 resultswithin the time period is included. APTT 57.9(H) 23.0 - 38.4 Seconds 09/27/2023 10:25 AM [facility] Comment:Suggested therapeuti c range for full dose I.V. unfractionated heparin therapy for venous thromboembolism is 71 to 109 seconds. Blood BLOOD SPECIMEN / Unknown Lab Venipuncture / Unknown 09/27/2023 9:29 AM MARGIN TRIMMER 09/27/2023 10:01 AM MARGIN TRIMMER Joseluis Bear MD LAB - COAGULATION OR DERABLES [facility] [address] [place] [address], [facility] [phone] * PT-INR [facility] (09/27/2023 1:50 AM MARGIN TRIMMER) Only the most recent of6 resultswithin the time period is included. PT 13.9 12.1 - 14.8 Seconds 09/27/2023 2:38 AM MARGIN TRIMMER [facility] INR 1.1 See Comment 09/27/2023 2:38 AM MARGIN TRIMMER [facility] Comment:The suggested therap eutic range for standard coumadin (warfarin) therapy is an INR of 2.0-3.0. For high-risk patients (Mechanical Mitral Valve Prosthesis, etc.), the suggested prophylactic therapeutic range is an INR of 2.5-3.5. Blood BLOOD SPECIMEN / Unknown Lab Venipuncture / Unknown 09/27/2023 1:50 AM MARGIN TRIMMER 09/27/2023 2:11 AM MARGIN TRIMMER Joseluis Bear MD LAB - COAGULATION OR DERABLES [facility] [address] [place] [address], [place] [phone] * CBC W AUTO DIFFERENTIAL (09/27/2023 1:50 AM MARGIN TRIMMER) Only the most recent of6 resultswithin the time period is included. WBC 7.0 4.0 - 10.7 x10E9/L 09/27/2023 2:07 AM [facility] RBC Count 3.96 3.90 - 5.20 x10E12/L 09/27/2023 2:07 AM [facility] Hemoglobin 12.0 11.9 - 15.8 g/dL 09/27/2023 2:07 AM [facility] Hematocrit 35.1 34.8 - 46.1 % 09/27/2023 2:07 AM [facility] MCV 88.6 80.0 - 98.0 fL 09/27/2023 2:07 AM [facility] MCH 30.3 26.7 - 33.6 pg 09/27/2023 2:07 AM [facility] MCHC 34.2 31.7 - 36.3 g/dL 09/27/2023 2:07 AM [facility] RDW-CV 12.5 11.3 - 14.8 % 09/27/2023 2:07 AM [facility] Platelet Count 334 150 - 420 x10E9/L 09/27/2023 2:07 AM [facility] MPV 9.6 7.8 - 11.4 fL 09/27/2023 2:07 AM [facility] Neutrophil % 55.4 41.0 - 74.0 % 09/27/2023 2:07 AM [facility] Lymphocyte % 33.0 17.0 - 47.0 % 09/27/2023 2:07 AM [facility] Monocyte % 8.0 3.0 - 11.0 % 09/27/2023 2:07 AM [facility] Eosinophil % 2.9 0.0 - 7.0 % 09/27/2023 2:07 AM [facility] Basophil % 0.6 0.0 - 1.6 % 09/27/2023 2:07 AM [facility] Immature Granulocytes % 0.1 0.0 - 1.0 % 09/27/2023 2:07 AM [facility] Neutrophil Absolute 3.85 1.60 - 7.50 x10E9/L 09/27/2023 2:07 AM MARGIN TRIMMER [facility] Lymphocyte Absolute 2.30 1.00 - 4.40 x10E9/L 09/27/2023 2:07 AM MARGIN TRIMMER [facility] Monocyte Absolute 0.56 0.15 - 1.00 x10E9/L 09/27/2023 2:07 AM [facility] Eosinophil Absolute 0.20 0.00 - 0.60 x10E9/L 09/27/2023 2:07 AM [facility] Basophil Absolute 0.04 0.00 - 0.13 x10E9/L 09/27/2023 2:07 AM [facility] Blood BLOOD SPECIMEN / Unknown Lab Venipuncture / Unknown 09/27/2023 1:50 AM MARGIN TRIMMER 09/27/2023 2:00 AM MARGIN TRIMMER Joseluis Bear MD LAB - HEMATOLOGY ORD ERABLES [facility] [address] [place] [address], [facility] [phone] * VAS ARTERIAL ANKLE ARM INDEX (09/26/2023 8:21 AM MARGIN TRIMMER) Anatomical Region Laterality Modality Ankle / Foot, Upper Extremity In travascular Ultrasound 09/26/2023 7:38 AM MARGIN TRIMMER Narrative Procedure Note Kennedy Romero MD - 09/26/2023 Joseluis Bear MD VASCULAR LAB ORDERAB LES * CARDIAC EKG ORDER (09/25/2023 2:19 PM MARGIN TRIMMER) Narrative 09/25/2023 2:19 PM MARGIN TRIMMER Ordered by an unspecified provider. Scanned Document CARDIAC SERVICES ORD ERABLES * MRI BRAIN WO CONTRAST (09/24/2023 3:47 PM MARGIN TRIMMER) Only the most recent of2 resultswithin the time period is included. Anatomical Region Laterality Modality Head Magnetic Resonan ce 09/24/2023 3:51 PM MARGIN TRIMMER Impressions 09/25/2023 8:24 AM MARGIN TRIMMER IMPRESSION: 1. No evidence of acute cerebral [...] 09/25/2023 8:24 AM Narrative 09/25/2023 8:24 AM MARGIN TRIMMER PROCEDURE: MRI BRAIN WO CONTRAST DATE/TIME OF [...] VAS TRANSCRANIAL DOPPLER COMP (09/24/2023 2:15 PM MARGIN TRIMMER) Only the most recent of2 resultswithin the time period is included. Anatomical Region Laterality Modality Head Intravascular Ul trasound 09/24/2023 12:3 6 PM MARGIN TRIMMER Narrative Procedure Note Timi Mills MD - 10/10/2023 Joseluis Bear MD VASCULAR LAB ORDERAB LES * VAS CAROTID DUPLEX BILATERAL (09/24/2023 2:14 PM MARGIN TRIMMER) Only the most recent of2 resultswithin the time period is included. Anatomical Region Laterality Modality Neck Intravascular Ul trasound 09/24/2023 12:5 3 PM MARGIN TRIMMER Narrative Procedure Note Mark Salmeron MD - 09/24/2023 Joseluis Bear MD VASCULAR LAB ORDERAB LES * TROPONIN-I HIGH SENSITIVE REFLEX 1HOUR (09/24/2023 5:45 AM MARGIN TRIMMER) Only the most recent of2 resultswithin the time period is included. [facility] Troponin I High Sensitive <3 <=14 ng/L 09/24/2023 7:39 AM MARGIN TRIMMER [facility] Delta Troponin I HS 09/24/2023 7:39 AM MARGIN TRIMMER [facility] Comment:Result exceeds linea rity range. A delta value is unable to be calculated. Blood BLOOD SPECIMEN / Unknown Venipuncture / Unknown 09/24/2023 5:45 AM MARGIN TRIMMER 09/24/2023 6:44 AM MARGIN TRIMMER Clayton Frazier MD LAB - CHEMISTRY JOSH CALVO [facility] Organization Address City/State/ZIP Co de Phone Number [facility] [address] [place] [address], [facility] [phone] * EKG 12-LEAD (09/24/2023 5:21 AM MARGIN TRIMMER) Only the most recent of2 resultswithin the time period is included. Ventricular Rate 61 BPM [facility] MUSE Atrial Rate 61 BPM [facility] MUSE P-R Interval 158 ms [facility] MUSE QRS Duration ms 76 ms [facility] MUSE Q-T Interval ms 484 ms [facility] MUSE QTC Calculation (Bezet) 487 ms [facility] MUSE Calculated P [place] 75 degrees [facility] MUSE Calculated R [place] 84 degrees [facility] MUSE Calculated T [place] 88 degrees [facility] MUSE Interpretation EKG SINUS RHYTHM WITH MARKED SINUS ARRYTHMIA NONSPECIFIC T WAVE ABNORMALITY PROLONGED QT ABNORMAL ECG WHEN COMPARED WITH ECG OF 18-SEP-2023 14:24, T WAVE INVERSION NOW EVIDENT IN ANTERIOR LEADS Confirmed by MICHAEL CRISTOBAL MD ([id number]) on 09/28/2023 9:49:30 AM [facility] MUSE 09/24/2023 5:21 AM MARGIN TRIMMER 09/28/2023 9:49 AM MARGIN TRIMMER Clayton Frazier MD ECG ORDERABLES [facility] MUSE * CT ANGIO BRAIN NECK STROKE (09/24/2023 4:35 AM MARGIN TRIMMER) Anatomical Region Laterality Modality Head Computed Tomogra phy 09/24/2023 4:47 AM MARGIN TRIMMER Impressions 09/24/2023 10:43 AM MARGIN TRIMMER IMPRESSION: 1.No significant change since prior. 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 3.Severe stenosis of the origin of the right subclavian artery is again noted. 4.Otherwise, no large arterial occlusions or significant stenoses identified in the head or neck. Viz.AI was used for large vessel occlusion detection. > Dictated by Dutch Morales DO (vice president compliance). I, Lay Chaudhry MD have personally reviewed and interpreted this examination/study. > Interpreting Provider: Lay Chaudhry MD on 09/24/2023 10:43 AM Narrative 09/24/2023 10:43 AM MARGIN TRIMMER PROCEDURE: CT ANGIO BRAIN NECK STROKE, DATE/TIME OF EXAM: 09/24/2023 5:19 AM, LOCATION [facility] INDICATION: Code Stroke ADDITIONAL CLINICAL INFORMATION: Ordering [...] STROKE, DATE/TIME OF EXAM: 45:19 AM, LOCATION [facility] INDICATION: Code Stroke ADDITIONAL CLINICAL INFORMATION: Ordering [...] Dictated by Dutch Morales DO (vice president compliance). Lay Casillas MD have personally reviewed and interpretedthis examination/study. > Interpreting Provider: Lay Chaudhry MD on 09/24/2023 10:43 AM Clayton Frazier MD CT ORDERABLES * TROPONIN-I HIGH SENSITIVE BASELINE + 1HR (09/24/2023 4:30 AM MARGIN TRIMMER) Only the most recent of2 resultswithin the time period is included. [facility] Troponin I High Sensitive <3 <=14 ng/L 09/24/2023 5:16 AM MARGIN TRIMMER [facility] Blood BLOOD SPECIMEN / Unknown Venipuncture / Unknown 09/24/2023 4:30 AM MARGIN TRIMMER 09/24/2023 4:37 AM MARGIN TRIMMER Clayton Frazier MD LAB - CHEMISTRY ORDE RABANIL Performing Organization Address City/[facility]/ZIP Co de Phone Number [address] [address], [facility] [phone] * TYPE + SCREEN PANEL (09/24/2023 4:30 AM MARGIN TRIMMER) Only the most recent of2 resultswithin the time period is included. [facility] Antibody Screen NEG 5:14 AM MARGIN TRIMMER [facility] BLOOD BANK LAB ABO Rh A NEG 09/24/2023 5:14 AM [facility] B[facility] LAB Blood Bank BLOOD SPECIMEN / Unknown Venipuncture / Unknown 09/24/2023 4:30 AM MARGIN TRIMMER 09/24/2023 4:37 AM MARGIN TRIMMER Clayton Frazier MD LAB - BLOOD BANK ORD ERABLES [facility] [address] [place] [address], [facility] [phone] * (ABNORMAL) COMPREHENSIVE METABOLIC PANEL (09/24/2023 4:30 AM MARGIN TRIMMER) [facility] BUN 16 7 - 26 mg/dL 09/24/2023 5:10 AM [facility] Creatinine 0.91 0.56 - 0.96 mg/dL 09/24/2023 5:10 AM [facility] Sodium 141 136 - 145 mmol/L 09/24/2023 5:10 AM [facility] Potassium 3.9 3.5 - 4.5 mmol/L 09/24/2023 5:10 AM [facility] Comment:Hemolysis detected i n this specimen. Hemolysis may cause false elevations in potassium leading to pseudohyperkalemia or masked hypokalemia. Recommend repeat testing if clinically indicated. Chloride 107 98 - 107 mmol/L 09/24/2023 5:10 AM [facility] CO2 24 22 - 29 mmol/L 09/24/2023 5:10 AM [facility] Glucose 77 70 - 115 mg/dL 09/24/2023 5:10 AM [facility] Calcium 9.4 8.4 - 10.2 mg/dL 09/24/2023 5:10 AM [facility] Protein Total 7.7 6.0 - 8.3 g/dL 09/24/2023 5:10 AM [facility] Comment:Hemolysis detected i n this specimen. Hemolysis is known to cause elevations in this analyte. Caution should be exercised in the interpretation of this result. Recommend repeat testing if clinically indicated. Albumin 4.2 3.4 - 5.0 g/dL 09/24/2023 5:10 AM [facility] Bilirubin Total 0.3 0.2 - 1.2 mg/dL 09/24/2023 5:10 AM [facility] Alkaline Phosphatase 93 40 - 150 U/L 09/24/2023 5:10 AM [facility] ALT 18 5 - 55 U/L 09/24/2023 5:10 AM [facility] AST 34 5 - 34 U/L 09/24/2023 5:10 AM [facility] Comment:Hemolysis detected i n this specimen. Hemolysis is known to cause elevations in this analyte. Caution should be exercised in the interpretation of this result. Recommend repeat testing if clinically indicated. Anion Gap 10 6 - 16 09/24/2023 5:10 AM [facility] BUN/Creatinine Ratio 18 7 - 23 09/12 5:10 AM [facility] Osmolality Calculated 292 275 - 295 mOsm/kg 09/24/2023 5:10 AM [facility] Albumin/Globulin Ratio 1.2 1.1 - 2.3 5:10 AM [facility] eGFR by CKD-EPI 74(L) >=90 mL/min/1. 73 m2 09/24/2023 5:10 AM [facility] Blood BLOOD SPECIMEN / Unknown Venipuncture / Unknown 09/24/2023 4:30 AM MARGIN TRIMMER 09/24/2023 4:37 AM MARGIN TRIMMER Clayton Frazier MD LAB - CHEMISTRY ORDE UMESH [facility] [address] [place] [address], [facility] [phone] * INR WHOLE BLOOD - POINT OF CARE (IP) STROKE (09/24/2023 4:28 AM MARGIN TRIMMER) INR 1.0 0.9 - 1.2 09/25/2023 11:05 AM [facility] Device [id number] 09/25/2023 11:05 AM [facility] Language Therapist ID [id number] 09/25/2023 11:05 AM [facility] Blood BLOOD SPECIMEN / Unknown 09/24/2023 4:28 AM MARGIN TRIMMER 09/25/2023 11:05 AM MARGIN TRIMMER Provider Unknown LAB - POINT OF CARE ORDERABLES [facility] [address] [place] [address], [place] [phone] * (ABNORMAL) CREATININE - POCT INTERFACED (09/24/2023 4:27 AM MARGIN TRIMMER) Creatinine POCT 0.78 0.30 - 1.30 mg/dL 09/25/2023 4:00 PM [facility] eGFR 89(L) >90 mL/min/1.7 3 m2 09/25/2023 4:00 PM [facility] Blood BLOOD SPECIMEN / Unknown 09/24/2023 4:27 AM MARGIN TRIMMER 09/25/2023 4:00 PM MARGIN TRIMMER Provider Unknown LAB - POINT OF CARE ORDERABLES Performing Organization Address City/[facility]/ZIP Co de Phone Number [address] [address], [facility] [phone] * GLUCOSE - POINT OF CARE (09/24/2023 4:14 AM MARGIN TRIMMER) Only the most recent of5 resultswithin the time period is included. Glucose WB/POC 105 70 - 115 mg/dL 09/24/2023 4:18 AM MARGIN TRIMMER [facility] Specimen Type Cap Fingerstick 2023 4:18 AM MARGIN TRIMMER [facility] Blood BLOOD SPECIMEN / Unknown 09/24/2023 4:14 AM MARGIN TRIMMER 09/24/2023 4:18 AM MARGIN TRIMMER Provider Unknown LAB - POINT OF CARE ORDERABLES Performing Organization Address [facility]/ZIP Co de Phone Number [address] [address], [facility] [phone] * CT BRAIN - Stroke (09/24/2023 4:07 AM MARGIN TRIMMER) Anatomical Region Laterality Modality Head Computed Tomogra phy 09/24/2023 7:04 AM MARGIN TRIMMER Impressions 09/24/2023 10:33 AM MARGIN TRIMMER IMPRESSION: 1.No acute intracranial hemorrhage. 2.Please note that CT is insensitive to nonhemorrhagic strokes and MRI should be considered if there is clinical concern for acute infarction. 3.Fundus examination is recommended to exclude papilledema and/or the possibility of idiopathic intracranial hypertension (IIH). > Dictated by Theo Hebert DO (residential care facility manager) ILay MD have personally reviewed and interpreted this examination/study. > Interpreting Provider: Lay Chaudhry MD on 09/24/2023 10:33 AM Narrative 09/24/2023 10:33 AM MARGIN TRIMMER PROCEDURE: CT BRAIN STROKE, DATE/TIME OF EXAM: 09/24/2023 4:14 AM, LOCATION [facility] INDICATION: Code Stroke EXAMINATION: Computed tomography (CT) [...] DATE/TIME OF EXAM: 09/24/2023 4:14 AM, LOCATION [facility] INDICATION: Code Stroke EXAMINATION: Computed tomography (CT) [...] (IIH). > Dictated by Theo Hebert DO (residential care facility manager) Lay Casillas MD have personally reviewed and interpretedthis examination/study. > Interpreting Provider: Lay Chaudhry MD on 09/24/2023 10:33 AM Clayton Frazier MD CT ORDERABLES * SARS-COV-2 (COVID-19) RAPID (09/07/2023 12:13 PM MARGIN TRIMMER) Pathologist [facility] COVID-19 PCR Not detected Not detected 09/07/19 12:57 PM [facility] Microbiology SPECIMEN FROM NASOPHARYNGEAL STRUCTURE / Unknown Collection / Unknown 09/07/2023 12:13 PM MARGIN TRIMMER 09/07/2023 12:22 PM MARGIN TRIMMER Narrative [facility] - 09/07/2023 12:57 PM MARGIN TRIMMER The [employer] Xpert Xpress SARS-COV-2 has been authorized by [...] - MICROBIOLOGY O RDERATOSIN Performing Organization Address City/State/[facility] Co de Phone Number [facility] [address] [place] [address], [facility] [phone] * (ABNORMAL) BASIC METABOLIC PANEL (CALCIUM TOTAL) (09/07/2023 6:38 AM MARGIN TRIMMER) Only the most recent of2 resultswithin the time period is included. Pathologist [facility] BUN 9 7 - 26 mg/dL 09/07/2023 7:57 AM [facility] Creatinine 0.88 0.56 - 0.96 mg/dL 09/07/2023 7:57 AM [facility] Sodium 140 136 - 145 mmol/L 09/07/2023 7:57 AM [facility] Potassium 3.1(L) 3.5 - 4.5 mmol/L 09/07/2023 7:57 AM [facility] Chloride 107 98 - 107 mmol/L 09/07/2023 7:57 AM [facility] CO2 24 22 - 29 mmol/L 09/07/2023 7:57 AM [facility] Glucose 98 70 - 115 mg/dL 09/07/2023 7:57 AM [facility] Calcium 9.1 8.4 - 10.2 mg/dL 09/07/2023 7:57 AM [facility] Anion Gap 9 6 - 16 09/07/2023 7:57 AM [facility] BUN/Creatinine Ratio 10 7 - 23 09/07/2023 7:57 AM [facility] Osmolality Calculated 289 275 - 295 mOsm/kg 09/07/2023 7:57 AM [facility] eGFR by CKD-EPI 77(L) >=90 mL/min/1.7 3 m2 09/07/2023 7:57 AM [facility] Blood BLOOD SPECIMEN / Unknown Lab Venipuncture / Unknown 09/07/2023 6:38 AM MARGIN TRIMMER 09/07/2023 7:30 AM MARGIN TRIMMER Timi Mills MD LAB - CHEMISTRY ORD ERABLES [address] [address], [facility] [phone] * PHOSPHORUS BLOOD (09/07/2023 6:38 AM MARGIN TRIMMER) Only the most recent of2 resultswithin the time period is included. Phosphorus 3.6 2.9 - 5.1 mg/dL 09/07/2023 7:57 AM [facility] Blood BLOOD SPECIMEN / Unknown Lab Venipuncture / Unknown 09/07/2023 6:38 AM MARGIN TRIMMER 09/07/2023 7:30 AM MARGIN TRIMMER Timi Mills MD LAB - CHEMISTRY ORD ERABLES [address] [address], [facility] [phone] * MAGNESIUM BLOOD (09/07/2023 6:38 AM MARGIN TRIMMER) Only the most recent of2 resultswithin the time period is included. Magnesium 1.6 1.6 - 2.6 mg/dL 09/07/2023 7:57 AM MARGIN TRIMMER [facility] Blood BLOOD SPECIMEN / Unknown Lab Venipuncture / Unknown 09/07/2023 6:38 AM MARGIN TRIMMER 09/07/2023 7:30 AM MARGIN TRIMMER Timi Mills MD LAB - CHEMISTRY ORD ERABLES [facility] [address] [place] [address], [facility] [phone] * CT ANGIO BRAIN AND NECK (09/06/2023 3:30 PM MARGIN TRIMMER) Anatomical Region Laterality Modality Head Computed Tomogra phy 09/06/2023 3:32 PM MARGIN TRIMMER Impressions 09/06/2023 3:41 PM MARGIN TRIMMER IMPRESSION: 1. No acute intracranial hemorrhage. 2. No large arterial occlusions or significant stenoses identified in the head or neck. Scattered atherosclerotic disease in the neck arteries. 3. 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 > Interpreting Provider: Romi Dutton MD on 09/06/2023 3:41 PM Narrative 09/06/2023 3:41 PM MARGIN TRIMMER PROCEDURE: CT ANGIO BRAIN AND NECK, DATE/TIME OF EXAM: 09/06/2023 3:30 PM, LOCATION [facility] INDICATION: G45.9: TIA (transient ischemic attack) ADDITIONAL [...] NECK, DATE/TIME OF EXAM: 09/06/2023 3:30PM, [facility] [facility] INDICATION: G45.9: TIA (transient ischemic attack) ADDITIONAL [...] COLOR FLOW AND DOPPLER (09/06/2023 10:11 AM MARGIN TRIMMER) BSA [id number] m2 [facility] CV FUJ I PACS LV [...] 1.2 cm [facility] CV FUJ I PACS [id number] 4.285 cm [facility] CV FUJ I PACS [id number] 4.463 cm [facility] CV FUJ I PACS [...] Laterality Modality Ultrasound Narrative 09/06/2023 10:58 AM MARGIN TRIMMER Left Ventricle: Left ventricle size is normal. [...] CT HEAD WO CONTRAST (09/06/2023 4:04 AM MARGIN TRIMMER) Anatomical Region Laterality Modality Head Computed Tomogra phy 09/06/2023 8:41 AM MARGIN TRIMMER Impressions 09/06/2023 9:03 AM MARGIN TRIMMER IMPRESSION: 1.No acute intracranial hemorrhage. > Dictated by Chriss Hebert DO (vice president compliance). I, Lay Chaudhry MD have personally reviewed and interpreted this examination/study. > Interpreting Provider: Lay Chaudhry MD on 09/06/2023 9:03 AM Narrative 09/06/2023 9:03 AM MARGIN TRIMMER PROCEDURE: CT HEAD WO CONTRAST, DATE/TIME OF EXAM: 09/06/2023 4:05 AM, LOCATION [facility] INDICATION: I63.9: Ischemic stroke ([facility]) ADDITIONAL CLINICAL INFORMATION: Ordering Provider Reason For [...] DATE/TIME OF EXAM: 09/06/2023 4:05 AM, LOCATION [facility] INDICATION: I63.9: Ischemic stroke ([facility]) ADDITIONAL CLINICAL INFORMATION: Ordering Provider Reason [...] Dictated by Chriss Hebert DO (vice president compliance). ILay MD have personally reviewed and interpretedthis examination/study. > Interpreting Provider: Lay Chaudhry MD on 09/06/2023 9:03 AM Timi Mills MD CT ORDERABLES * (ABNORMAL) URINALYSIS REFLEX TO MICROSCOPIC NO CULTURE (09/06/2023 2:58 AM MARGIN TRIMMER) Color UA Colorless(A ) Straw, Yellow 09/06/2023 3:17 AM [facility] Clarity UA Clear Clear 09/06/2023 3:17 AM [facility] Specific [place] UA 1.003(L) 1.005 - 1.030 09/06/2023 3:17 AM [facility] pH UA 7.0 5.0 - 8.0 pH 09/06/2023 3:17 AM [facility] Protein UA Negative Negative 09/06/2023 3:17 AM [facility] Glucose UA Negative Negative 09/06/2023 3:17 AM [facility] Ketone UA Negative Negative 09/06/2023 3:17 AM [facility] Bilirubin UA Negative Negative 09/06/2023 3:17 AM [facility] Blood UA Negative Negative 09/06/2023 3:17 AM [facility] Nitrite UA Negative Negative 09/06/2023 3:17 AM [facility] Leukocyte Esterase Negative Negative 09/06/2023 3:17 AM [facility] Urobilinogen UA Negative Negative mg/dL 09/06/2023 3:17 AM [facility] RBC UA 0-2 None Seen, 0-2, 3-5 /HPF 09/06/2023 3:17 AM [facility] WBC UA 0-5 None Seen, 0-5 /HPF 09/06/2023 3:17 AM [facility] Squamous Epithelial Cells UA None Seen None Seen, 0-2, 3-5 /HPF 09/06/2023 3:17 AM [facility] Urine URINE SPECIMEN OBTAINED BY CLEAN CATCH PROCEDURE / Unknown Collection / Unknown 09/06/2023 2:58 AM MARGIN TRIMMER 09/06/2023 3:10 AM MARGIN TRIMMER Narrative [facility] - 09/06/2023 3:17 AM MARGIN TRIMMER Timi Mills MD LAB - URINALYSIS OR DERABLES [facility] [address] [place] [address], [facility] [phone] * (ABNORMAL) URINE DRUG SCREEN IMMUNOASSAY (09/06/2023 2:58 AM [facility]) Amphetamines Screen Urine Negative Negative : < 1000 ng/mL 09/06/2023 3:32 AM [facility] Barbiturates Screen Urine Negative Negative : < 200 ng/mL 09/06/2023 3:32 AM [facility] Benzodiazepine Screen Urine Negative Negative : < 200 ng/mL 09/06/2023 3:32 AM [facility] Opiates Urine Positive(A) Negative : < 300 ng/mL 09/06/2023 3:32 AM [facility] Comment:Positive urine opiat e screening results should be confirmed by another generally accepted non-immunological method such as gas chromatography or mass spectrometry. Cocaine Metabolites Urine Negative Negative : < 300 ng/mL 09/06/2023 3:32 AM [facility] Phencyclidine Screen Urine Negative Negative : < 25 ng/ml 09/06/2023 3:32 AM [facility] Cannabinoids Screen Urine Positive(A) Negative : <50 ng/mL 09/06/2023 3:32 AM [facility] Comment:Positive urine canna binoids (THC) screening results should be confirmed by another generally accepted non-immunological method such as gas chromatography or mass spectrometry. Methadone Screen Urine Negative Negative : < 300 ng/mL 09/06/2023 3:32 AM [facility] Fentanyl Screen Urine Negative Negative : <1.5 ng/mL 09/06/2023 3:32 AM [facility] Urine URINE / Unknown Collection / Unknown 09/06/2023 2:58 AM [facility] 09/06/2023 3:10 AM [facility] Narrative [facility] - 09/06/2023 3:32 AM [facility] The Urine Toxicology Screening Panel does not screen for Propoxyphene, Meprobamate, Carisoprodol, Trazodone, zwhn-uid-vjwfjiu medications and/or volatiles (Acetone, Isopropanol, Methanol or Ethylene Glycol). Ethanol, Salicylate, Acetaminophen, Tricyclic Antidepressants and several therapeutic drugs may be individually assayed in serum or plasma specimen. Toxicology testing by the [facility] is an aid to medical diagnosis and treatment of patients. No documented chain of custody was maintained. Results are intended to be used for clinical purposes only. Timi Mills MD LAB - URINE DEVELOPMENT EXECUTIVE RY ORDERABLES [address] [address], [facility] [phone] * LIPID PROFILE (09/06/2023 1:46 AM [facility]) Cholesterol Total 144 <200 mg/dL 09/06/2023 3:28 AM [facility] HDL 42 >40 mg/dL 09/06/2023 3:28 AM [facility] Comment: ATP III Classification of HDL Cholesterol: <40 mg/dL: Considered a major risk factor. >60 mg/dL: Considered a negative risk factor. LDL Calculated 86 <100 mg/dL 09/06/2023 3:28 AM [facility] Comment: ATP III Classification of LDL Cholesterol: <100 mg/dL: Optimal 100 - 129 mg/dL: Near Optimal/Above Optimal 130 - 159 mg/dL: Borderline High 160 - 189 mg/dL: High >190 mg/dL: Very High Triglycerides 79 <150 mg/dL 09/06/2023 3:28 AM [facility] Comment: ATP III Classification of Triglycerides: <150 mg/dL: Normal 150 - 199 mg/dL: Borderline High 200 - 400 mg/dL: High >500 mg/dL: Very High Blood BLOOD SPECIMEN / Unknown Lab Venipuncture / Unknown 09/06/2023 1:46 AM MARGIN TRIMMER 09/06/2023 2:51 AM MARGIN TRIMMER Timi Mills MD LAB - CHEMISTRY ORD ERABLES [facility] [address] [place] [address], [facility] [phone] * GROSS + MICRO EXAM (10/14/1999 8:35 AM MARGIN TRIMMER) Only the most recent of2 resultswithin the [...] AND FOREIGN BODY GIANT CELL REACTION SR/KA [id number] Released By LINDA VICENTE MISCELLANEOUS SAMPLES / Unknown 10/14/1999 8:35 AM MARGIN TRIMMER 10/14/1999 8:37 AM MARGIN TRIMMER Historical Provider LAB - PATHOLOGY/C YTOLOGY ORDERABLES Care Teams Picture Framer Relationship Specialty Start Date End Date Fernando Chavez MD [address] [place] [address] PCP - General Family Medicine 09/06/23
--- OUTSIDE RECORDS SUMMARY | 2024-09-27 09:51 | XMS_ITS | Referral Summary ---
Author Organization [facility] [employer] Address [address] [place] [address] Care Team Providers Care Rubber Splicer Name Role Phone Fernando Chavez MD Primary Care Provider [phone] Source Comments [facility],non-owned Affiliates and Associated Physician Practices is amultiple site organization consisting of ambulatory clinics and hospital sitesin [place], [place], [place] and [place]. This disclosure is being madepursuant to the Care Everywhere program and may not contain all information available regarding this patient. Last updated 18.[facility] Allergies Active Allergy Reactions Criticality Noted Date [...] Respiratory Rate 10 10/18/2023 11:1 1 AM FINE CHEMICALS OPERATOR Oxygen Saturation 98% 11/14/2023 3:18 PM [...] Comments LIPID PROFILE Routine 09/06/2023 1:46 AM FINE CHEMICALS OPERATOR from Last 3 Months or Most Recently Relevant to Health Maintenance Results * LIPID PROFILE (09/06/2023 1:46 AM FINE CHEMICALS OPERATOR) [facility] Signature Cholesterol Total 144 <200 mg/dL 09/06/2023 3:28 AM [facility] HDL 42 >40 mg/dL 09/06/2023 3:28 AM [facility] Comment: ATP III Classification of HDL Cholesterol: <40 mg/dL: Considered a major risk factor. >60 mg/dL: Considered a negative risk factor. LDL Calculated 86 <100 mg/dL 09/06/2023 3:28 AM [facility] Comment: ATP III Classification of LDL Cholesterol: <100 mg/dL: Optimal 100 - 129 mg/dL: Near Optimal/Above Optimal 130 - 159 mg/dL: Borderline High 160 - 189 mg/dL: High >190 mg/dL: Very High Triglycerides 79 <150 mg/dL 09/06/2023 3:28 AM [facility] Comment: ATP III Classification of Triglycerides: <150 mg/dL: Normal 150 - 199 mg/dL: Borderline High 200 - 400 mg/dL: High >500 mg/dL: Very High Blood BLOOD SPECIMEN / Unknown Lab Venipuncture / Unknown 09/06/2023 1:46 AM FINE CHEMICALS OPERATOR 09/06/2023 2:51 AM FINE CHEMICALS OPERATOR Timi Mills MD LAB - CHEMISTRY ORD ERABLES [facility] [address] [place] [address], [facility] [phone] from Last 3 Months or Most Recently Relevant to Health Maintenance Advance Directives Documents on File Type Date Recorded Patient Charge Aide Expl anation Adv Directive/Living Will/POA 09/09/2023 12:24 PM * LIMITED RESUSCITATION-PRIOR AND AFTER ARREST (Latest Code Status on File) Date Activated Date Inactivated Comments 09/06/2023 1:33 AM 09/07/2023 6:35 PM Question Answer Comments Limited Resuscitation: No Intubation, No Invasiv e Ventilation Care Teams Rubber Splicer Relationship Specialty Start Date End Date Fernando Chavez MD [address] [place] [address] PCP - General Family Medicine 09/06/23
--- OUTSIDE RECORDS SUMMARY | 2024-09-27 09:51 | XMS_ITS | Clinical Summary ---
Author Organization [facility] Address [address] [place] [address] Care Team Providers Care Podiatry Doctor Name Role Phone Fernando Chavez MD Primary Care Provider [phone] Allergies Active Allergy Reactions Criticality Noted Date [...] 07/02/2021 Assessment & Plan (07/02/2021 11:18 AM MACHINE TRIMMER): Pt's systolic blood pressure was noted to [...] metoprolol for now. Pt is contact her station agent tomorrow for further instructions. Fall 06/29/2021 Assessment & Plan (07/02/2021 11:10 AM MACHINE TRIMMER): Mechanical fall day prior to presentation with right hip pain. No prior history of hip pain. Xray of hip and knee were negative. Continue management with nonnarcotic meds. Home health referral made outpt. Assessment & Plan (07/01/2021 10:55 AM MACHINE TRIMMER): Mechanical fall day prior to presentation with right hip pain. No prior history of hip pain. Xray of hip and knee were negative. Continue management with nonnarcotic meds. PT consulted. Assessment & Plan (06/30/2021 11:54 AM MACHINE TRIMMER): Mechanical fall yesterday with right hip pain. No prior history of hip pain. Xray of hip and knee were negative. Continue management with nonnarcotic meds. PT consulted but pt refused to work with PT this morning. Assessment & Plan (06/29/2021 1:48 PM MACHINE TRIMMER): Mechanical fall yesterday with right hip pain. No prior history of hip pain. Xray of hip and knee were negative. Continue management with nonnarcotic meds. Acute hypoxemic respiratory failure 02/08/2021 Elevated troponin 01/14/2021 Atypical chest pain 01/14/2021 Assessment & Plan (07/02/2021 11:09 AM MACHINE TRIMMER): Troponins are negative. Continue to follow with station agent as outpatient. Assessment & Plan (07/01/2021 10:54 AM MACHINE TRIMMER): Troponins are negative. Continue to follow with station agent as outpatient. Assessment & Plan (06/30/2021 11:52 AM MACHINE TRIMMER): Troponins are negative. Continue to follow with station agent as outpatient. Assessment & Plan (06/29/2021 1:45 PM MACHINE TRIMMER): Troponins are negative. Continue to follow with station agent as outpatient. Hepatitis 01/14/2021 Tylenol overdose 01/14/2021 [...] (04/11/2020): Added automatically from request for surgery [id number] Assessment & Plan (07/02/2021 10:58 AM MACHINE TRIMMER): Please see constipation noted elsewhere. CT is otherwise unremarkable. Pt also has underlying chronic abdominal pain. Assessment & Plan (07/01/2021 10:53 AM MACHINE TRIMMER): Please see constipation noted elsewhere. CT is otherwise unremarkable. Pt also has underlying chronic abdominal pain. Assessment & Plan (06/30/2021 11:49 AM MACHINE TRIMMER): Please see constipation noted elsewhere. CT is otherwise unremarkable. Pt also has underlying chronic abdominal pain. Assessment & Plan (06/29/2021 1:48 PM MACHINE TRIMMER): Please see constipation noted elsewhere. CT is [...] NOS Assessment & Plan (07/02/2021 11:09 AM MACHINE TRIMMER): Continue home meds. Assessment & Plan (07/01/2021 10:53 AM MACHINE TRIMMER): Continue home meds. Assessment & Plan (06/30/2021 11:51 AM MACHINE TRIMMER): Continue home meds. Assessment & Plan (06/29/2021 1:46 PM MACHINE TRIMMER): Continue home meds. Assessment & Plan (04/23/2020 1:50 PM CDT): - home clonazepam 0.5mg BID Acute cerebrovascular insufficiency 12/26/2013 Overview (11/16/2016): AC CEREBROVASC INSUF NOS Constipation Assessment & Plan (07/02/2021 11:09 AM MACHINE TRIMMER): Pt's history and CT suggests this; no suggestion of bowel obstruction on CT. Continue bowel regimen and monitor for stools. Avoid narcotics; pt reports she is not on any narcotics at home. Mag citrate was tried per pt's request but this did not result in bm. She drank @ 2L of Golytely with good results. Assessment & Plan (07/01/2021 10:53 AM MACHINE TRIMMER): Pt's history and CT suggests this; no suggestion of bowel obstruction on CT. Continue bowel regimen and monitor for stools. Avoid narcotics; pt reports she is not on any narcotics at home. Mag citrate was tried yesterday per pt's request but this did not result in bm. She drank @ 2L of Golytely with good results. Assessment & Plan (06/30/2021 11:50 AM MACHINE TRIMMER): Pt's history and CT suggests this; no suggestion of bowel obstruction. Continue bowel regimen and monitor for stools. Avoid narcotics; pt reports she is not on any narcotics at home. Mag citrate was tried yesterday per pt's request but this did not result in bm. Plan is to place NG and give Golytely through this today. Assessment & Plan (06/29/2021 1:44 PM MACHINE TRIMMER): Pt's history and CT suggests this; no suggestion of bowel obstruction. Continue bowel regimen and monitor for stools. Avoid narcotics; pt reports she is not on any narcotics at home. Immunizations Immunization Administration Dates Next Due Hep A / [...] Endometriosis-21 times Trigeminal neuralgia Colon obstruction (CMS/HCC) ([facility]) PONV (postoperative nausea and vomiting) IV medications [...] often do you attend chur ch or evangelical services? 1 to 4 times per year 02/09/2021 Do you belong to any clubs o r organizations such as muslim groups, unions, fraternal or athletic groups, or [...] on file Legal Sex Female 5:42 AM MACHINE TRIMMER Gender Identity Not on file Sexual Orientation [...] (2 - Td or Tdap) 07/20/202904/2019 Insurance [facility] MEDICARE HMO [facility] CHOICE OOS [facility] [employer] CHOICE [employer] MEDICARE HMO Advance Directives For more information, please contact: [phone] * Full Code (Latest Code Status on [...] 4:23 PM 04/28/2020 8:27 PM Care Teams Podiatry Doctor Relationship Specialty Start Date End Date Fernando Chavez MD [address] [place] [id number] PCP - General Family Medicine 03/05/24
--- OUTSIDE RECORDS SUMMARY | 2024-09-27 09:51 | XMS_ITS | Referral Summary ---
Author Organization [facility] Address [address] [place] [address] Care Team Providers Care Antique Refinisher Name Role Phone Fernando Chavez MD Primary Care Provider [phone] Allergies Active Allergy Reactions Criticality Noted Date [...] 07/02/2021 Assessment & Plan (07/02/2021 11:18 AM PSYCHOLOGY PHYSICIAN): Pt's systolic blood pressure was noted to [...] metoprolol for now. Pt is contact her content publisher tomorrow for further instructions. Fall 06/29/2021 Assessment & Plan (07/02/2021 11:10 AM PSYCHOLOGY PHYSICIAN): Mechanical fall day prior to presentation with right hip pain. No prior history of hip pain. Xray of hip and knee were negative. Continue management with nonnarcotic meds. Home health referral made outpt. Assessment & Plan (07/01/2021 10:55 AM PSYCHOLOGY PHYSICIAN): Mechanical fall day prior to presentation with right hip pain. No prior history of hip pain. Xray of hip and knee were negative. Continue management with nonnarcotic meds. PT consulted. Assessment & Plan (06/30/2021 11:54 AM PSYCHOLOGY PHYSICIAN): Mechanical fall yesterday with right hip pain. No prior history of hip pain. Xray of hip and knee were negative. Continue management with nonnarcotic meds. PT consulted but pt refused to work with PT this morning. Assessment & Plan (06/29/2021 1:48 PM PSYCHOLOGY PHYSICIAN): Mechanical fall yesterday with right hip pain. No prior history of hip pain. Xray of hip and knee were negative. Continue management with nonnarcotic meds. Acute hypoxemic respiratory failure 02/08/2021 Elevated troponin 01/14/2021 Atypical chest pain 01/14/2021 Assessment & Plan (07/02/2021 11:09 AM PSYCHOLOGY PHYSICIAN): Troponins are negative. Continue to follow with content publisher as outpatient. Assessment & Plan (07/01/2021 10:54 AM PSYCHOLOGY PHYSICIAN): Troponins are negative. Continue to follow with content publisher as outpatient. Assessment & Plan (06/30/2021 11:52 AM PSYCHOLOGY PHYSICIAN): Troponins are negative. Continue to follow with content publisher as outpatient. Assessment & Plan (06/29/2021 1:45 PM PSYCHOLOGY PHYSICIAN): Troponins are negative. Continue to follow with content publisher as outpatient. Hepatitis 01/14/2021 Tylenol overdose 01/14/2021 [...] (04/11/2020): Added automatically from request for surgery [id number] Assessment & Plan (07/02/2021 10:58 AM PSYCHOLOGY PHYSICIAN): Please see constipation noted elsewhere. CT is otherwise unremarkable. Pt also has underlying chronic abdominal pain. Assessment & Plan (07/01/2021 10:53 AM PSYCHOLOGY PHYSICIAN): Please see constipation noted elsewhere. CT is otherwise unremarkable. Pt also has underlying chronic abdominal pain. Assessment & Plan (06/30/2021 11:49 AM PSYCHOLOGY PHYSICIAN): Please see constipation noted elsewhere. CT is otherwise unremarkable. Pt also has underlying chronic abdominal pain. Assessment & Plan (06/29/2021 1:48 PM PSYCHOLOGY PHYSICIAN): Please see constipation noted elsewhere. CT is [...] NOS Assessment & Plan (07/02/2021 11:09 AM PSYCHOLOGY PHYSICIAN): Continue home meds. Assessment & Plan (07/01/2021 10:53 AM PSYCHOLOGY PHYSICIAN): Continue home meds. Assessment & Plan (06/30/2021 11:51 AM PSYCHOLOGY PHYSICIAN): Continue home meds. Assessment & Plan (06/29/2021 1:46 PM PSYCHOLOGY PHYSICIAN): Continue home meds. Assessment & Plan (04/23/2020 1:50 PM CDT): - home clonazepam 0.5mg BID Acute cerebrovascular insufficiency 12/26/2013 Overview (11/16/2016): AC CEREBROVASC INSUF NOS Constipation Assessment & Plan (07/02/2021 11:09 AM PSYCHOLOGY PHYSICIAN): Pt's history and CT suggests this; no suggestion of bowel obstruction on CT. Continue bowel regimen and monitor for stools. Avoid narcotics; pt reports she is not on any narcotics at home. Mag citrate was tried per pt's request but this did not result in bm. She drank @ 2L of Golytely with good results. Assessment & Plan (07/01/2021 10:53 AM PSYCHOLOGY PHYSICIAN): Pt's history and CT suggests this; no suggestion of bowel obstruction on CT. Continue bowel regimen and monitor for stools. Avoid narcotics; pt reports she is not on any narcotics at home. Mag citrate was tried yesterday per pt's request but this did not result in bm. She drank @ 2L of Golytely with good results. Assessment & Plan (06/30/2021 11:50 AM PSYCHOLOGY PHYSICIAN): Pt's history and CT suggests this; no suggestion of bowel obstruction. Continue bowel regimen and monitor for stools. Avoid narcotics; pt reports she is not on any narcotics at home. Mag citrate was tried yesterday per pt's request but this did not result in bm. Plan is to place NG and give Golytely through this today. Assessment & Plan (06/29/2021 1:44 PM PSYCHOLOGY PHYSICIAN): Pt's history and CT suggests this; no [...] on file Legal Sex Female 5:42 AM PSYCHOLOGY PHYSICIAN Gender Identity Not on file Sexual Orientation [...] Plan of Treatment Not on file Insurance [facility] MEDICARE HMO [facility] CHOICE OOS [facility] [employer] CHOICE [employer] MEDICARE HMO Advance Directives For more information, please contact: [phone] * Full Code (Latest Code Status on [...] 4:23 PM 04/28/2020 8:27 PM Care Teams Antique Refinisher Relationship Specialty Start Date End Date Fernando Chavez MD [address] [address] PCP - General Family Medicine 03/05/24
--- OUTSIDE RECORDS SUMMARY | 2024-09-27 09:51 | XMS_ITS | Clinical Summary ---
Author Organization [facility] [employer] Address [address] [place] [address] Care Team Providers Care Farmworker Cranberry Name Role Phone Fernando Chavez MD Primary Care Provider [phone] Source Comments [facility] [employer],non-owned Affiliates and Associated Physician Practices is amultiple site organization consisting of ambulatory clinics and hospital sitesin [place], [place], [place] and [place]. This disclosure is being madepursuant to the Care Everywhere program and may not contain all information available regarding this patient. Last updated 18.[employer] Allergies Active Allergy Reactions Criticality Noted Date [...] Respiratory Rate 10 10/18/2023 11:1 1 AM OR NURSE MANAGER Oxygen Saturation 98% 11/14/2023 3:18 PM CDT [...] Comments LIPID PROFILE Routine 09/06/2023 1:46 AM OR NURSE MANAGER from Last 3 Months or Most Recently Relevant to Health Maintenance Results * LIPID PROFILE (09/06/2023 1:46 AM OR NURSE MANAGER) Cholesterol Total 144 <200 mg/dL 09/06/2023 3:28 AM [facility] HDL 42 >40 mg/dL 09/06/2023 3:28 AM [facility] Comment: ATP III Classification of HDL Cholesterol: <40 mg/dL: Considered a major risk factor. >60 mg/dL: Considered a negative risk factor. LDL Calculated 86 <100 mg/dL 09/06/2023 3:28 AM [facility] Comment: ATP III Classification of LDL Cholesterol: <100 mg/dL: Optimal 100 - 129 mg/dL: Near Optimal/Above Optimal 130 - 159 mg/dL: Borderline High 160 - 189 mg/dL: High >190 mg/dL: Very High Triglycerides 79 <150 mg/dL 09/06/2023 3:28 AM [facility] Comment: ATP III Classification of Triglycerides: <150 mg/dL: Normal 150 - 199 mg/dL: Borderline High 200 - 400 mg/dL: High >500 mg/dL: Very High Blood BLOOD SPECIMEN / Unknown Lab Venipuncture / Unknown 09/06/2023 1:46 AM OR NURSE MANAGER 09/06/2023 2:51 AM [facility] Timi Mills MD LAB - CHEMISTRY ORD ERABLES [facility] [address] [place] [address], [facility] [phone] from Last 3 Months or Most Recently Relevant to Health Maintenance Advance Directives Documents on File Type Date Recorded Patient In Home Tutor Expl anation Adv Directive/Living Will/POA 09/09/2023 12:24 PM * LIMITED RESUSCITATION-PRIOR AND AFTER ARREST (Latest Code Status on File) Date Activated Date Inactivated Comments 09/06/2023 1:33 AM 09/07/2023 6:35 PM Question Answer Comments Limited Resuscitation: No Intubation, No Invasiv e Ventilation Care Teams Farmworker Cranberry Relationship Specialty Start Date End Date Fernando Chavez MD [address] [place] [address] PCP - General Family Medicine 09/06/23
[2024-09-27 09:55] VITALS: BP 168/86; PULSE 112; RESP 21; TEMP 36.6; O2SAT 99
--- OUTSIDE RECORDS SUMMARY | 2024-09-27 10:13 | XMS_ITS | Clinical Summary ---
Author Organization [facility] Address [address] [place] [address] Care Team Providers Care Electric Motor Analyst Name Role Phone Fernando Chavez MD Primary Care Provider [phone] Allergies Active Allergy Reactions Criticality Noted Date [...] 07/02/2021 Assessment & Plan (07/02/2021 11:18 AM LIFE TEACHER): Pt's systolic blood pressure was noted to [...] metoprolol for now. Pt is contact her board operator tomorrow for further instructions. Fall 06/29/2021 Assessment & Plan (07/02/2021 11:10 AM LIFE TEACHER): Mechanical fall day prior to presentation with right hip pain. No prior history of hip pain. Xray of hip and knee were negative. Continue management with nonnarcotic meds. Home health referral made outpt. Assessment & Plan (07/01/2021 10:55 AM LIFE TEACHER): Mechanical fall day prior to presentation with right hip pain. No prior history of hip pain. Xray of hip and knee were negative. Continue management with nonnarcotic meds. PT consulted. Assessment & Plan (06/30/2021 11:54 AM LIFE TEACHER): Mechanical fall yesterday with right hip pain. No prior history of hip pain. Xray of hip and knee were negative. Continue management with nonnarcotic meds. PT consulted but pt refused to work with PT this morning. Assessment & Plan (06/29/2021 1:48 PM LIFE TEACHER): Mechanical fall yesterday with right hip pain. No prior history of hip pain. Xray of hip and knee were negative. Continue management with nonnarcotic meds. Acute hypoxemic respiratory failure 02/08/2021 Elevated troponin 01/14/2021 Atypical chest pain 01/14/2021 Assessment & Plan (07/02/2021 11:09 AM LIFE TEACHER): Troponins are negative. Continue to follow with board operator as outpatient. Assessment & Plan (07/01/2021 10:54 AM LIFE TEACHER): Troponins are negative. Continue to follow with board operator as outpatient. Assessment & Plan (06/30/2021 11:52 AM LIFE TEACHER): Troponins are negative. Continue to follow with board operator as outpatient. Assessment & Plan (06/29/2021 1:45 PM LIFE TEACHER): Troponins are negative. Continue to follow with board operator as outpatient. Hepatitis 01/14/2021 Tylenol overdose [...] (04/11/2020): Added automatically from request for surgery [id number] Assessment & Plan (07/02/2021 10:58 AM LIFE TEACHER): Please see constipation noted elsewhere. CT is otherwise unremarkable. Pt also has underlying chronic abdominal pain. Assessment & Plan (07/01/2021 10:53 AM LIFE TEACHER): Please see constipation noted elsewhere. CT is otherwise unremarkable. Pt also has underlying chronic abdominal pain. Assessment & Plan (06/30/2021 11:49 AM LIFE TEACHER): Please see constipation noted elsewhere. CT is otherwise unremarkable. Pt also has underlying chronic abdominal pain. Assessment & Plan (06/29/2021 1:48 PM LIFE TEACHER): Please see constipation noted elsewhere. CT is [...] NOS Assessment & Plan (07/02/2021 11:09 AM LIFE TEACHER): Continue home meds. Assessment & Plan (07/01/2021 10:53 AM LIFE TEACHER): Continue home meds. Assessment & Plan (06/30/2021 11:51 AM LIFE TEACHER): Continue home meds. Assessment & Plan (06/29/2021 1:46 PM LIFE TEACHER): Continue home meds. Assessment & Plan (04/23/2020 1:50 PM CDT): - home clonazepam 0.5mg BID Acute cerebrovascular insufficiency 12/26/2013 Overview (11/16/2016): AC CEREBROVASC INSUF NOS Constipation Assessment & Plan (07/02/2021 11:09 AM LIFE TEACHER): Pt's history and CT suggests this; no suggestion of bowel obstruction on CT. Continue bowel regimen and monitor for stools. Avoid narcotics; pt reports she is not on any narcotics at home. Mag citrate was tried per pt's request but this did not result in bm. She drank @ 2L of Golytely with good results. Assessment & Plan (07/01/2021 10:53 AM LIFE TEACHER): Pt's history and CT suggests this; no suggestion of bowel obstruction on CT. Continue bowel regimen and monitor for stools. Avoid narcotics; pt reports she is not on any narcotics at home. Mag citrate was tried yesterday per pt's request but this did not result in bm. She drank @ 2L of Golytely with good results. Assessment & Plan (06/30/2021 11:50 AM LIFE TEACHER): Pt's history and CT suggests this; no suggestion of bowel obstruction. Continue bowel regimen and monitor for stools. Avoid narcotics; pt reports she is not on any narcotics at home. Mag citrate was tried yesterday per pt's request but this did not result in bm. Plan is to place NG and give Golytely through this today. Assessment & Plan (06/29/2021 1:44 PM LIFE TEACHER): Pt's history and CT suggests this; no [...] times Trigeminal neuralgia Colon obstruction (CMS/HCC) ([facility]) PONV (postoperative nausea and vomiting) IV medications [...] often do you attend chur ch or mormonism services? 1 to 4 times per year 02/09/2021 Do you belong to any clubs o r organizations such as restorationist groups, unions, fraternal or athletic groups, or [...] on file Legal Sex Female 5:42 AM LIFE TEACHER Gender Identity Not on file Sexual [...] (2 - Td or Tdap) 07/20/202904/2019 Insurance [facility] MEDICARE HMO [facility] CHOICE OOS [facility] [place] CHOICE [employer] MEDICARE HMO Advance Directives For more information, please contact: [phone] * Full Code (Latest Code Status on [...] 4:23 PM 04/28/2020 8:27 PM Care Teams Electric Motor Analyst Relationship Specialty Start Date End Date Fernando Chavez MD [address] [place] [address] [id number] PCP - General Family Medicine 03/05/24
--- OUTSIDE RECORDS SUMMARY | 2024-09-27 10:13 | XMS_ITS | Clinical Summary ---
Author Organization [facility] [employer] Address [address] [place] [address] Care Team Providers Care Refrigerator Repairman Name Role Phone Fernando Chavez MD Primary Care Provider Source Comments [facility] [employer],non-owned Affiliates and Associated Physician Practices is amultiple site organization consisting of ambulatory clinics and hospital sitesin [place], [place], [place] and [place]. This disclosure is being madepursuant to the Care Everywhere program and may not contain all information available regarding this patient. Last updated 18.[employer] Allergies Active Allergy Reactions Criticality Noted Date [...] Respiratory Rate 10 10/18/2023 11:1 1 AM BOARD HANDLER Oxygen Saturation 98% 11/14/2023 3:18 PM CDT [...] Comments LIPID PROFILE Routine 09/06/2023 1:46 AM BOARD HANDLER from Last 3 Months or Most Recently Relevant to Health Maintenance Results * LIPID PROFILE (09/06/2023 1:46 AM BOARD HANDLER) Cholesterol Total 144 <200 mg/dL 09/06/2023 3:28 AM [facility] HDL 42 >40 mg/dL 09/06/2023 3:28 AM [facility] Comment: ATP III Classification of HDL Cholesterol: <40 mg/dL: Considered a major risk factor. >60 mg/dL: Considered a negative risk factor. LDL Calculated 86 <100 mg/dL 09/06/2023 3:28 AM [facility] Comment: ATP III Classification of LDL Cholesterol: <100 mg/dL: Optimal 100 - 129 mg/dL: Near Optimal/Above Optimal 130 - 159 mg/dL: Borderline High 160 - 189 mg/dL: High >190 mg/dL: Very High Triglycerides 79 <150 mg/dL 09/06/2023 3:28 AM [facility] Comment: ATP III Classification of Triglycerides: <150 mg/dL: Normal 150 - 199 mg/dL: Borderline High 200 - 400 mg/dL: High >500 mg/dL: Very High Blood BLOOD SPECIMEN / Unknown Lab Venipuncture / Unknown 09/06/2023 1:46 AM BOARD HANDLER 09/06/2023 2:51 AM [facility] Timi Mills MD LAB - CHEMISTRY ORD ERABLES [facility] [address] [place] [address], [facility] [phone] from Last 3 Months or Most Recently Relevant to Health Maintenance Advance Directives Documents on File Type Date Recorded Patient Professional Athletes Coach Expl anation Adv Directive/Living Will/POA 09/09/2023 12:24 PM * LIMITED RESUSCITATION-PRIOR AND AFTER ARREST (Latest Code Status on File) Date Activated Date Inactivated Comments 09/06/2023 1:33 AM 09/07/2023 6:35 PM Question Answer Comments Limited Resuscitation: No Intubation, No Invasiv e Ventilation Care Teams Refrigerator Repairman Relationship Specialty Start Date End Date Fernando Chavez MD [address] [place] [address] PCP - General Family Medicine 09/06/23
--- OUTSIDE RECORDS SUMMARY | 2024-09-27 10:13 | XMS_ITS | Referral Summary ---
Author Organization [facility] Address [address] [place] [address] Care Team Providers Care Instructional Coordinator Name Role Phone Fernando Chavez MD Primary Care Provider [phone] Allergies Active Allergy Reactions Criticality Noted Date [...] 07/02/2021 Assessment & Plan (07/02/2021 11:18 AM CAR VARNISHER): Pt's systolic blood pressure was noted to [...] metoprolol for now. Pt is contact her anchorer tomorrow for further instructions. Fall 06/29/2021 Assessment & Plan (07/02/2021 11:10 AM CAR VARNISHER): Mechanical fall day prior to presentation with right hip pain. No prior history of hip pain. Xray of hip and knee were negative. Continue management with nonnarcotic meds. Home health referral made outpt. Assessment & Plan (07/01/2021 10:55 AM CAR VARNISHER): Mechanical fall day prior to presentation with right hip pain. No prior history of hip pain. Xray of hip and knee were negative. Continue management with nonnarcotic meds. PT consulted. Assessment & Plan (06/30/2021 11:54 AM CAR VARNISHER): Mechanical fall yesterday with right hip pain. No prior history of hip pain. Xray of hip and knee were negative. Continue management with nonnarcotic meds. PT consulted but pt refused to work with PT this morning. Assessment & Plan (06/29/2021 1:48 PM CAR VARNISHER): Mechanical fall yesterday with right hip pain. No prior history of hip pain. Xray of hip and knee were negative. Continue management with nonnarcotic meds. Acute hypoxemic respiratory failure 02/08/2021 Elevated troponin 01/14/2021 Atypical chest pain 01/14/2021 Assessment & Plan (07/02/2021 11:09 AM CAR VARNISHER): Troponins are negative. Continue to follow with anchorer as outpatient. Assessment & Plan (07/01/2021 10:54 AM CAR VARNISHER): Troponins are negative. Continue to follow with anchorer as outpatient. Assessment & Plan (06/30/2021 11:52 AM CAR VARNISHER): Troponins are negative. Continue to follow with anchorer as outpatient. Assessment & Plan (06/29/2021 1:45 PM CAR VARNISHER): Troponins are negative. Continue to follow with anchorer as outpatient. Hepatitis 01/14/2021 Tylenol overdose 01/14/2021 [...] (04/11/2020): Added automatically from request for surgery [id number] Assessment & Plan (07/02/2021 10:58 AM CAR VARNISHER): Please see constipation noted elsewhere. CT is otherwise unremarkable. Pt also has underlying chronic abdominal pain. Assessment & Plan (07/01/2021 10:53 AM CAR VARNISHER): Please see constipation noted elsewhere. CT is otherwise unremarkable. Pt also has underlying chronic abdominal pain. Assessment & Plan (06/30/2021 11:49 AM CAR VARNISHER): Please see constipation noted elsewhere. CT is otherwise unremarkable. Pt also has underlying chronic abdominal pain. Assessment & Plan (06/29/2021 1:48 PM CAR VARNISHER): Please see constipation noted elsewhere. CT is [...] NOS Assessment & Plan (07/02/2021 11:09 AM CAR VARNISHER): Continue home meds. Assessment & Plan (07/01/2021 10:53 AM CAR VARNISHER): Continue home meds. Assessment & Plan (06/30/2021 11:51 AM CAR VARNISHER): Continue home meds. Assessment & Plan (06/29/2021 1:46 PM CAR VARNISHER): Continue home meds. Assessment & Plan (04/23/2020 1:50 PM CDT): - home clonazepam 0.5mg BID Acute cerebrovascular insufficiency 12/26/2013 Overview (11/16/2016): AC CEREBROVASC INSUF NOS Constipation Assessment & Plan (07/02/2021 11:09 AM CAR VARNISHER): Pt's history and CT suggests this; no suggestion of bowel obstruction on CT. Continue bowel regimen and monitor for stools. Avoid narcotics; pt reports she is not on any narcotics at home. Mag citrate was tried per pt's request but this did not result in bm. She drank @ 2L of Golytely with good results. Assessment & Plan (07/01/2021 10:53 AM CAR VARNISHER): Pt's history and CT suggests this; no suggestion of bowel obstruction on CT. Continue bowel regimen and monitor for stools. Avoid narcotics; pt reports she is not on any narcotics at home. Mag citrate was tried yesterday per pt's request but this did not result in bm. She drank @ 2L of Golytely with good results. Assessment & Plan (06/30/2021 11:50 AM CAR VARNISHER): Pt's history and CT suggests this; no suggestion of bowel obstruction. Continue bowel regimen and monitor for stools. Avoid narcotics; pt reports she is not on any narcotics at home. Mag citrate was tried yesterday per pt's request but this did not result in bm. Plan is to place NG and give Golytely through this today. Assessment & Plan (06/29/2021 1:44 PM CAR VARNISHER): Pt's history and CT suggests this; no [...] often do you attend chur ch or yarsani services? 1 to 4 times per year 02/09/2021 Do you belong to any clubs o r organizations such as hoahaoism groups, unions, fraternal or athletic groups, or [...] on file Legal Sex Female 5:42 AM CAR VARNISHER Gender Identity Not on file Sexual Orientation [...] Plan of Treatment Not on file Insurance [facility] MEDICARE HMO [facility] CHOICE OOS [facility] [employer] CHOICE [employer] MEDICARE HMO Advance Directives For more information, please contact: [phone] * Full Code (Latest Code Status on [...] 4:23 PM 04/28/2020 8:27 PM Care Teams Instructional Coordinator Relationship Specialty Start Date End Date Fernando Chavez MD [address] [address] PCP - General Family Medicine 03/05/24
--- OUTSIDE RECORDS SUMMARY | 2024-09-27 10:13 | XMS_ITS | Referral Summary ---
Author Organization [facility] Address [address] [place] [address] Care Team Providers Care Tool Grinder Name Role Phone Fernando Chavez MD Primary Care Provider [phone] Source Comments [facility],non-owned Affiliates and Associated Physician Practices is amultiple site organization consisting of ambulatory clinics and hospital sitesin [place], [place], [place] and [place]. This disclosure is being madepursuant to the Care Everywhere program and may not contain all information available regarding this patient. Last updated 18.[facility] Allergies Active Allergy Reactions Criticality Noted Date [...] Respiratory Rate 10 10/18/2023 11:1 1 AM AIRCRAFT MAINTENANCE DIRECTOR Oxygen Saturation 98% 11/14/2023 3:18 PM [...] Comments LIPID PROFILE Routine 09/06/2023 1:46 AM AIRCRAFT MAINTENANCE DIRECTOR from Last 3 Months or Most Recently Relevant to Health Maintenance Results * LIPID PROFILE (09/06/2023 1:46 AM AIRCRAFT MAINTENANCE DIRECTOR) [facility] Signature Cholesterol Total 144 <200 mg/dL 09/06/2023 3:28 AM [facility] HDL 42 >40 mg/dL 09/06/2023 3:28 AM [facility] Comment: ATP III Classification of HDL Cholesterol: <40 mg/dL: Considered a major risk factor. >60 mg/dL: Considered a negative risk factor. LDL Calculated 86 <100 mg/dL 09/06/2023 3:28 AM [facility] Comment: ATP III Classification of LDL Cholesterol: <100 mg/dL: Optimal 100 - 129 mg/dL: Near Optimal/Above Optimal 130 - 159 mg/dL: Borderline High 160 - 189 mg/dL: High >190 mg/dL: Very High Triglycerides 79 <150 mg/dL 09/06/2023 3:28 AM [facility] Comment: ATP III Classification of Triglycerides: <150 mg/dL: Normal 150 - 199 mg/dL: Borderline High 200 - 400 mg/dL: High >500 mg/dL: Very High Blood BLOOD SPECIMEN / Unknown Lab Venipuncture / Unknown 09/06/2023 1:46 AM AIRCRAFT MAINTENANCE DIRECTOR 09/06/2023 2:51 AM AIRCRAFT MAINTENANCE DIRECTOR Timi Mills MD LAB - CHEMISTRY ORD ERABLES [facility] [address] [place] [address], [facility] [phone] from Last 3 Months or Most Recently Relevant to Health Maintenance Advance Directives Documents on File Type Date Recorded Patient Thread Drawer Expl anation Adv Directive/Living Will/POA 09/09/2023 12:24 PM * LIMITED RESUSCITATION-PRIOR AND AFTER ARREST (Latest Code Status on File) Date Activated Date Inactivated Comments 09/06/2023 1:33 AM 09/07/2023 6:35 PM Question Answer Comments Limited Resuscitation: No Intubation, No Invasiv e Ventilation Care Teams Tool Grinder Relationship Specialty Start Date End Date Fernando Chavez MD [address] [place] [address] PCP - General Family Medicine 09/06/23
--- OUTSIDE RECORDS SUMMARY | 2024-09-27 10:13 | XMS_ITS | Patient Health Summary ---
Author Organization [facility] Address [address] [place] [address] Care Team Providers Care Hammersmith Helper Name Role Phone Fernando Chavez MD Primary Care Provider [phone] Note from [facility],non-owned Affiliates and Associated Physician Practices is amultiple site organization consisting of ambulatory clinics and hospital sitesin [place], [place], [place] and [place]. This disclosure is being madepursuant to the Care Everywhere program and may not contain all information available regarding this patient. Last updated 18.[facility] Allergies * Bupropion(Unknown) * Codeine(Itching) * [...] Respiratory Rate 10 10/18/2023 11:1 1 AM ROTARY SHEAR OPERATOR Oxygen Saturation 98% 11/14/2023 3:18 PM [...] IR CAROTID CEREBRAL ANGIOGRAM (09/27/2023 2:09 PM ROTARY SHEAR OPERATOR) Anatomical Region Laterality Modality Head X-Ray Angiograph y 09/27/2023 1:55 PM ROTARY SHEAR OPERATOR Impressions 10/01/2023 10:25 AM ROTARY SHEAR OPERATOR Impression: 1. Severe flow-limiting stenosis of the proximal right subclavian artery measuring 90%. 2. The Right carotid artery supplies the right anterior circulation as well as right posterior circulation via a right REGIONAL OWNER OPERATOR TRUCK DRIVER. There is no contribution from the left [...] evaluation, please review the evaluation forms in [facility]. For details on monitored clinical parameters during the intra-service sedation time, please review the procedure nurse documentation in [facility]. ITimi MD have personally reviewed and interpreted this examination/study. > Interpreting Provider: Timi Mills MD on 10/01/2023 10:25 AM Narrative 10/01/2023 10:25 AM ROTARY SHEAR OPERATOR PROCEDURE: IR CAROTID CEREBRAL ANGIOGRAM DATE/TIME OF [...] cerebral infarction.Vascular surgery consult of possible bypass. Transportation Clerk: Soham Mills Wedger Machine(s): Tanika Orourke Vessels: Ultrasound Guided Access of Femoral Artery Left Subclavian Artery Angiogram: Cervical and Cerebral Right Innominate Artery Angiogram: Cervical and Cerebral Left Common Carotid Artery Angiogram: Cervical and Cerebral Right Femoral Artery Angiogram Anesthesia: I, Dr. Julius Mills, was present for the entire duration of the procedure. Moderate sedation on this adult patient ws ordered by the trimming press operator, administered intravenously in my presence, and [...] patient evaluation, please review the evaluation in [facility]. For details on monitored clinical parameters during the intra-service sedation time, please review the procedure nurse documentation in [facility]. Procedural detail: The risks, benefits, and alternatives [...] Following a series of exchanges, a 6 Macedonian 30 cm Brite tip sheath was placed in the right femoral artery and a 5 Macedonian sim2 catheter was navigated into the aortic [...] system. Hemostasis was achieved using a 6 Macedonian Angio-Seal closure device. Hemostasis was immediate at [...] poor distal vessel opacification. A large right REGIONAL OWNER OPERATOR TRUCK DRIVER is visualized. The right carotid artery supplies the right anterior circulation as well as right posterior circulation via a right REGIONAL OWNER OPERATOR TRUCK DRIVER. The right vertebral artery is non-dominant with [...] cerebral infarction.Vascular surgery consult of possible bypass. Transportation Clerk: Soham Mills Wedger Machine(s): Tanika Orourke Vessels: Ultrasound Guided Access of Femoral Artery Left Subclavian Artery Angiogram: Cervical and Cerebral Right Innominate Artery Angiogram: Cervical and Cerebral Left Common Carotid Artery Angiogram: Cervical and Cerebral Right Femoral Artery Angiogram Anesthesia: I, Dr. Julius Mills, was present for the entire duration ofthe procedure. Moderate sedation on this adult patient ws ordered by the trimming press operator, administered intravenously in my presence, and [...] patient evaluation, please review the evaluation in [facility]. For details on monitored clinical parameters during theintra-service sedation time, please review the procedure nurse documentation in [facility]. Procedural detail: The risks, benefits, and alternatives [...] documented. Following aseries of exchanges, a 6 Macedonian 30 cm Brite tip sheath was placed in the right femoral artery and a 5 Macedonian sim2 catheter was navigated into theaortic arch. [...] arterial system.Hemostasis was achieved using a 6 Macedonian Angio-Seal closure device. Hemostasis was immediate at [...] poor distal vessel opacification. A large right REGIONAL OWNER OPERATOR TRUCK DRIVER is visualized. The right carotid artery supplies the right anterior circulation as well as right posterior circulation via a right REGIONAL OWNER OPERATOR TRUCK DRIVER. The right vertebral artery is non-dominant with [...] as right posterior circulation via a right REGIONAL OWNER OPERATOR TRUCK DRIVER. There is no contribution from the left [...] patient evaluation,please review the evaluation forms in [facility]. For details on monitored clinical parameters during the intra-service sedation time, please review the procedure nurse documentation in [facility]. ITimi MD have personally reviewed and interpreted this examination/study. > Interpreting Provider: Timi Mills MD on 10/01/2023 10:25 AM Joseluis Bear MD IR ORDERABLES * (ABNORMAL) PTT [facility] (09/27/2023 9:29 AM ROTARY SHEAR OPERATOR) Only the most recent of12 resultswithin the time period is included. APTT 57.9(H) 23.0 - 38.4 Seconds 09/27/2023 10:25 AM [facility] Comment:Suggested therapeuti c range for full dose I.V. unfractionated heparin therapy for venous thromboembolism is 71 to 109 seconds. Blood BLOOD SPECIMEN / Unknown Lab Venipuncture / Unknown 09/27/2023 9:29 AM ROTARY SHEAR OPERATOR 09/27/2023 10:01 AM ROTARY SHEAR OPERATOR Joseluis Bear MD LAB - COAGULATION OR DERABLES [facility] [address] [place] [address], [facility] [phone] * PT-INR [facility] (09/27/2023 1:50 AM ROTARY SHEAR OPERATOR) Only the most recent of6 resultswithin the time period is included. PT 13.9 12.1 - 14.8 Seconds 09/27/2023 2:38 AM ROTARY SHEAR OPERATOR [facility] INR 1.1 See Comment 09/27/2023 2:38 AM ROTARY SHEAR OPERATOR [facility] Comment:The suggested therap eutic range for standard coumadin (warfarin) therapy is an INR of 2.0-3.0. For high-risk patients (Mechanical Mitral Valve Prosthesis, etc.), the suggested prophylactic therapeutic range is an INR of 2.5-3.5. Blood BLOOD SPECIMEN / Unknown Lab Venipuncture / Unknown 09/27/2023 1:50 AM ROTARY SHEAR OPERATOR 09/27/2023 2:11 AM ROTARY SHEAR OPERATOR Joseluis Bear MD LAB - COAGULATION OR DERABLES [facility] [address] [place] [address], [place] [phone] * CBC W AUTO DIFFERENTIAL (09/27/2023 1:50 AM ROTARY SHEAR OPERATOR) Only the most recent of6 resultswithin the time period is included. WBC 7.0 4.0 - 10.7 x10E9/L 09/27/2023 2:07 AM [facility] RBC Count 3.96 3.90 - 5.20 x10E12/L 09/27/2023 2:07 AM [facility] Hemoglobin 12.0 11.9 - 15.8 g/dL 09/27/2023 2:07 AM [facility] Hematocrit 35.1 34.8 - 46.1 % 09/27/2023 2:07 AM [facility] MCV 88.6 80.0 - 98.0 fL 09/27/2023 2:07 AM [facility] MCH 30.3 26.7 - 33.6 pg 09/27/2023 2:07 AM [facility] MCHC 34.2 31.7 - 36.3 g/dL 09/27/2023 2:07 AM [facility] RDW-CV 12.5 11.3 - 14.8 % 09/27/2023 2:07 AM [facility] Platelet Count 334 150 - 420 x10E9/L 09/27/2023 2:07 AM [facility] MPV 9.6 7.8 - 11.4 fL 09/27/2023 2:07 AM [facility] Neutrophil % 55.4 41.0 - 74.0 % 09/27/2023 2:07 AM [facility] Lymphocyte % 33.0 17.0 - 47.0 % 09/27/2023 2:07 AM [facility] Monocyte % 8.0 3.0 - 11.0 % 09/27/2023 2:07 AM [facility] Eosinophil % 2.9 0.0 - 7.0 % 09/27/2023 2:07 AM [facility] Basophil % 0.6 0.0 - 1.6 % 09/27/2023 2:07 AM [facility] Immature Granulocytes % 0.1 0.0 - 1.0 % 09/27/2023 2:07 AM [facility] Neutrophil Absolute 3.85 1.60 - 7.50 x10E9/L 09/27/2023 2:07 AM ROTARY SHEAR OPERATOR [facility] Lymphocyte Absolute 2.30 1.00 - 4.40 x10E9/L 09/27/2023 2:07 AM ROTARY SHEAR OPERATOR [facility] Monocyte Absolute 0.56 0.15 - 1.00 x10E9/L 09/27/2023 2:07 AM [facility] Eosinophil Absolute 0.20 0.00 - 0.60 x10E9/L 09/27/2023 2:07 AM [facility] Basophil Absolute 0.04 0.00 - 0.13 x10E9/L 09/27/2023 2:07 AM [facility] Blood BLOOD SPECIMEN / Unknown Lab Venipuncture / Unknown 09/27/2023 1:50 AM ROTARY SHEAR OPERATOR 09/27/2023 2:00 AM ROTARY SHEAR OPERATOR Joseluis Bear MD LAB - HEMATOLOGY ORD ERABLES [facility] [address] [place] [address], [facility] [phone] * VAS ARTERIAL ANKLE ARM INDEX (09/26/2023 8:21 AM ROTARY SHEAR OPERATOR) Anatomical Region Laterality Modality Ankle / Foot, Upper Extremity In travascular Ultrasound 09/26/2023 7:38 AM ROTARY SHEAR OPERATOR Narrative Procedure Note Kennedy Romero MD - 09/26/2023 Joseluis Bear MD VASCULAR LAB ORDERAB LES * CARDIAC EKG ORDER (09/25/2023 2:19 PM ROTARY SHEAR OPERATOR) Narrative 09/25/2023 2:19 PM ROTARY SHEAR OPERATOR Ordered by an unspecified provider. Scanned Document CARDIAC SERVICES ORD ERABLES * MRI BRAIN WO CONTRAST (09/24/2023 3:47 PM ROTARY SHEAR OPERATOR) Only the most recent of2 resultswithin the time period is included. Anatomical Region Laterality Modality Head Magnetic Resonan ce 09/24/2023 3:51 PM ROTARY SHEAR OPERATOR Impressions 09/25/2023 8:24 AM ROTARY SHEAR OPERATOR IMPRESSION: 1. No evidence of acute cerebral [...] 09/25/2023 8:24 AM Narrative 09/25/2023 8:24 AM ROTARY SHEAR OPERATOR PROCEDURE: MRI BRAIN WO CONTRAST DATE/TIME OF [...] VAS TRANSCRANIAL DOPPLER COMP (09/24/2023 2:15 PM ROTARY SHEAR OPERATOR) Only the most recent of2 resultswithin the time period is included. Anatomical Region Laterality Modality Head Intravascular Ul trasound 09/24/2023 12:3 6 PM ROTARY SHEAR OPERATOR Narrative Procedure Note Timi Mills MD - 10/10/2023 Joseluis Bear MD VASCULAR LAB ORDERAB LES * VAS CAROTID DUPLEX BILATERAL (09/24/2023 2:14 PM ROTARY SHEAR OPERATOR) Only the most recent of2 resultswithin the time period is included. Anatomical Region Laterality Modality Neck Intravascular Ul trasound 09/24/2023 12:5 3 PM ROTARY SHEAR OPERATOR Narrative Procedure Note Mark Salmeron MD - 09/24/2023 Joseluis Bear MD VASCULAR LAB ORDERAB LES * TROPONIN-I HIGH SENSITIVE REFLEX 1HOUR (09/24/2023 5:45 AM ROTARY SHEAR OPERATOR) Only the most recent of2 resultswithin the time period is included. [facility] Troponin I High Sensitive <3 <=14 ng/L 09/24/2023 7:39 AM ROTARY SHEAR OPERATOR [facility] Delta Troponin I HS 09/24/2023 7:39 AM ROTARY SHEAR OPERATOR [facility] Comment:Result exceeds linea rity range. A delta value is unable to be calculated. Blood BLOOD SPECIMEN / Unknown Venipuncture / Unknown 09/24/2023 5:45 AM ROTARY SHEAR OPERATOR 09/24/2023 6:44 AM ROTARY SHEAR OPERATOR Clayton Frazier MD LAB - CHEMISTRY JOSH [facility] Organization Address City/State/ZIP Co de Phone Number [facility] [address] [place] [address], [facility] [phone] * EKG 12-LEAD (09/24/2023 5:21 AM ROTARY SHEAR OPERATOR) Only the most recent of2 resultswithin the time period is included. Ventricular Rate 61 BPM [facility]USE Atrial Rate 61 BPM [facility] MUSE P-R Interval 158 ms [facility] MUSE QRS Duration ms 76 ms [facility] MUSE Q-T Interval ms 484 ms [facility]USE QTC Calculation (Bezet) 487 ms [facility] MUSE Calculated P Rarden 75 degrees [facility] MUSE Calculated R Rarden 84 degrees [facility] MUSE Calculated T Rarden 88 degrees [facility] MUSE Interpretation EKG SINUS RHYTHM WITH MARKED SINUS ARRYTHMIA NONSPECIFIC T WAVE ABNORMALITY PROLONGED QT ABNORMAL ECG WHEN COMPARED WITH ECG OF 18-SEP-2023 14:24, T WAVE INVERSION NOW EVIDENT IN ANTERIOR LEADS Confirmed by MICHAEL CRISTOBAL MD ([id number]) on 09/28/2023 9:49:30 AM [facility] MUSE 09/24/2023 5:21 AM ROTARY SHEAR OPERATOR 09/28/2023 9:49 AM ROTARY SHEAR OPERATOR Clayton Frazier MD ECG ORDERABLES [facility] MUSE * CT ANGIO BRAIN NECK STROKE (09/24/2023 4:35 AM ROTARY SHEAR OPERATOR) Anatomical Region Laterality Modality Head Computed Tomogra phy 09/24/2023 4:47 AM ROTARY SHEAR OPERATOR Impressions 09/24/2023 10:43 AM ROTARY SHEAR OPERATOR IMPRESSION: 1.No significant change since prior. 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 3.Severe stenosis of the origin of the right subclavian artery is again noted. 4.Otherwise, no large arterial occlusions or significant stenoses identified in the head or neck. Viz.AI was used for large vessel occlusion detection. > Dictated by Dutch Morales DO (cath lab radiology technician). I, Lay Chaudhry MD have personally reviewed and interpreted this examination/study. > Interpreting Provider: Lay Chaudhry MD on 09/24/2023 10:43 AM Narrative 09/24/2023 10:43 AM ROTARY SHEAR OPERATOR PROCEDURE: CT ANGIO BRAIN NECK STROKE, DATE/TIME OF EXAM: 09/24/2023 5:19 AM, LOCATION [facility] INDICATION: Code Stroke ADDITIONAL CLINICAL INFORMATION: [...] STROKE, DATE/TIME OF EXAM: 45:19 AM, LOCATION [facility] INDICATION: Code Stroke ADDITIONAL CLINICAL INFORMATION: [...] detection. > Dictated by Dutch Morales DO (cath lab radiology technician). Lay Casillas MD have personally reviewed and interpretedthis examination/study. > Interpreting Provider: Lay Chaudhry MD on 09/24/2023 10:43 AM Clayton Frazier MD CT ORDERABLES * TROPONIN-I HIGH SENSITIVE BASELINE + 1HR (09/24/2023 4:30 AM ROTARY SHEAR OPERATOR) Only the most recent of2 resultswithin the time period is included. [facility] Troponin I High Sensitive <3 <=14 ng/L 09/24/2023 5:16 AM ROTARY SHEAR OPERATOR [facility] Blood BLOOD SPECIMEN / Unknown Venipuncture / Unknown 09/24/2023 4:30 AM ROTARY SHEAR OPERATOR 09/24/2023 4:37 AM ROTARY SHEAR OPERATOR Clayton Frazier MD LAB - CHEMISTRY ORDE RABANIL Performing Organization Address City/[facility]/ZIP Co de Phone Number [address] [address], [facility] [phone] * TYPE + SCREEN PANEL (09/24/2023 4:30 AM ROTARY SHEAR OPERATOR) Only the most recent of2 resultswithin the time period is included. [facility] Antibody Screen NEG 5:14 AM ROTARY SHEAR OPERATOR [facility] B[facility]OD BANK LAB ABO Rh A NEG 09/24/2023 5:14 AM [facility] Blood Bank BLOOD SPECIMEN / Unknown Venipuncture / Unknown 09/24/2023 4:30 AM ROTARY SHEAR OPERATOR 09/24/2023 4:37 AM ROTARY SHEAR OPERATOR Clayton Frazier MD LAB - BLOOD BANK ORD ERABLES [facility] [address] [place] [address], [facility] [phone] * (ABNORMAL) COMPREHENSIVE METABOLIC PANEL (09/24/2023 4:30 AM ROTARY SHEAR OPERATOR) [facility] BUN 16 7 - 26 mg/dL 09/24/2023 5:10 AM [facility] Creatinine 0.91 0.56 - 0.96 mg/dL 09/24/2023 5:10 AM [facility] Sodium 141 136 - 145 mmol/L 09/24/2023 5:10 AM [facility] Potassium 3.9 3.5 - 4.5 mmol/L 09/24/2023 5:10 AM [facility] Comment:Hemolysis detected i n this specimen. Hemolysis may cause false elevations in potassium leading to pseudohyperkalemia or masked hypokalemia. Recommend repeat testing if clinically indicated. Chloride 107 98 - 107 mmol/L 09/24/2023 5:10 AM [facility] CO2 24 22 - 29 mmol/L 09/24/2023 5:10 AM [facility] Glucose 77 70 - 115 mg/dL 09/24/2023 5:10 AM [facility] Calcium 9.4 8.4 - 10.2 mg/dL 09/24/2023 5:10 AM [facility] Protein Total 7.7 6.0 - 8.3 g/dL 09/24/2023 5:10 AM [facility] Comment:Hemolysis detected i n this specimen. Hemolysis is known to cause elevations in this analyte. Caution should be exercised in the interpretation of this result. Recommend repeat testing if clinically indicated. Albumin 4.2 3.4 - 5.0 g/dL 09/24/2023 5:10 AM [facility] Bilirubin Total 0.3 0.2 - 1.2 mg/dL 09/24/2023 5:10 AM [facility] Alkaline Phosphatase 93 40 - 150 U/L 09/24/2023 5:10 AM [facility] ALT 18 5 - 55 U/L 09/24/2023 5:10 AM [facility] AST 34 5 - 34 U/L 09/24/2023 5:10 AM [facility] Comment:Hemolysis detected i n this specimen. Hemolysis is known to cause elevations in this analyte. Caution should be exercised in the interpretation of this result. Recommend repeat testing if clinically indicated. Anion Gap 10 6 - 16 09/24/2023 5:10 AM [facility] BUN/Creatinine Ratio 18 7 - 23 09/12 5:10 AM [facility] Osmolality Calculated 292 275 - 295 mOsm/kg 09/24/2023 5:10 AM [facility] Albumin/Globulin Ratio 1.2 1.1 - 2.3 5:10 AM [facility] eGFR by CKD-EPI 74(L) >=90 mL/min/1. 73 m2 09/24/2023 5:10 AM [facility] Blood BLOOD SPECIMEN / Unknown Venipuncture / Unknown 09/24/2023 4:30 AM ROTARY SHEAR OPERATOR 09/24/2023 4:37 AM ROTARY SHEAR OPERATOR Clayton Frazier MD LAB - CHEMISTRY ORDE UMESH [facility] [address] [place] [address], [facility] [phone] * INR WHOLE BLOOD - POINT OF CARE (IP) STROKE (09/24/2023 4:28 AM ROTARY SHEAR OPERATOR) INR 1.0 0.9 - 1.2 09/25/2023 11:05 AM [facility] Device [id number] 09/25/2023 11:05 AM [facility] Transportation Clerk ID [id number] 09/25/2023 11:05 AM [facility] Blood BLOOD SPECIMEN / Unknown 09/24/2023 4:28 AM ROTARY SHEAR OPERATOR 09/25/2023 11:05 AM ROTARY SHEAR OPERATOR Provider Unknown LAB - POINT OF CARE ORDERABLES [facility] [address] [place] [address], [place] [phone] * (ABNORMAL) CREATININE - POCT INTERFACED (09/24/2023 4:27 AM ROTARY SHEAR OPERATOR) Creatinine POCT 0.78 0.30 - 1.30 mg/dL 09/25/2023 4:00 PM [facility] eGFR 89(L) >90 mL/min/1.7 3 m2 09/25/2023 4:00 PM [facility] Blood BLOOD SPECIMEN / Unknown 09/24/2023 4:27 AM ROTARY SHEAR OPERATOR 09/25/2023 4:00 PM ROTARY SHEAR OPERATOR Provider Unknown LAB - POINT OF CARE ORDERABLES Performing Organization Address City/[facility]/ZIP Co de Phone Number [address] [address], [facility] [phone] * GLUCOSE - POINT OF CARE (09/24/2023 4:14 AM ROTARY SHEAR OPERATOR) Only the most recent of5 resultswithin the time period is included. Glucose WB/POC 105 70 - 115 mg/dL 09/24/2023 4:18 AM ROTARY SHEAR OPERATOR [facility] Specimen Type Cap Fingerstick 2023 4:18 AM ROTARY SHEAR OPERATOR [facility] Blood BLOOD SPECIMEN / Unknown 09/24/2023 4:14 AM ROTARY SHEAR OPERATOR 09/24/2023 4:18 AM ROTARY SHEAR OPERATOR Provider Unknown LAB - POINT OF CARE ORDERABLES Performing Organization Address [facility]/ZIP Co de Phone Number [address] [address], [facility] [phone] * CT BRAIN - Stroke (09/24/2023 4:07 AM ROTARY SHEAR OPERATOR) Anatomical Region Laterality Modality Head Computed Tomogra phy 09/24/2023 7:04 AM ROTARY SHEAR OPERATOR Impressions 09/24/2023 10:33 AM ROTARY SHEAR OPERATOR IMPRESSION: 1.No acute intracranial hemorrhage. 2.Please note that CT is insensitive to nonhemorrhagic strokes and MRI should be considered if there is clinical concern for acute infarction. 3.Fundus examination is recommended to exclude papilledema and/or the possibility of idiopathic intracranial hypertension (IIH). > Dictated by Theo Hebert DO (resident athletic trainer) ILay MD have personally reviewed and interpreted this examination/study. > Interpreting Provider: Lay Chaudhry MD on 09/24/2023 10:33 AM Narrative 09/24/2023 10:33 AM ROTARY SHEAR OPERATOR PROCEDURE: CT BRAIN STROKE, DATE/TIME OF EXAM: 09/24/2023 4:14 AM, LOCATION [facility] INDICATION: Code Stroke EXAMINATION: Computed tomography [...] DATE/TIME OF EXAM: 09/24/2023 4:14 AM, LOCATION [facility] INDICATION: Code Stroke EXAMINATION: Computed tomography [...] (IIH). > Dictated by Theo Hebert DO (resident athletic trainer) Lay Casillas MD have personally reviewed and interpretedthis examination/study. > Interpreting Provider: Lay Chaudhry MD on 09/24/2023 10:33 AM Clayton Frazier MD CT ORDERABLES * SARS-COV-2 (COVID-19) RAPID (09/07/2023 12:13 PM ROTARY SHEAR OPERATOR) Pathologist [facility] COVID-19 PCR Not detected Not detected 09/07/19 12:57 PM [facility] Microbiology SPECIMEN FROM NASOPHARYNGEAL STRUCTURE / Unknown Collection / Unknown 09/07/2023 12:13 PM ROTARY SHEAR OPERATOR 09/07/2023 12:22 PM ROTARY SHEAR OPERATOR Narrative [facility] - 09/07/2023 12:57 PM ROTARY SHEAR OPERATOR The CepXipin Xpert Xpress SARS-COV-2 has been authorized by [...] - MICROBIOLOGY O RDERATOSIN Performing Organization Address City/State/[facility] Co de Phone Number [facility] [address] [place] [address], [facility] [phone] * (ABNORMAL) BASIC METABOLIC PANEL (CALCIUM TOTAL) (09/07/2023 6:38 AM ROTARY SHEAR OPERATOR) Only the most recent of2 resultswithin the time period is included. Pathologist [facility] BUN 9 7 - 26 mg/dL 09/07/2023 7:57 AM [facility] Creatinine 0.88 0.56 - 0.96 mg/dL 09/07/2023 7:57 AM [facility] Sodium 140 136 - 145 mmol/L 09/07/2023 7:57 AM [facility] Potassium 3.1(L) 3.5 - 4.5 mmol/L 09/07/2023 7:57 AM [facility] Chloride 107 98 - 107 mmol/L 09/07/2023 7:57 AM [facility] CO2 24 22 - 29 mmol/L 09/07/2023 7:57 AM [facility] Glucose 98 70 - 115 mg/dL 09/07/2023 7:57 AM [facility] Calcium 9.1 8.4 - 10.2 mg/dL 09/07/2023 7:57 AM [facility] Anion Gap 9 6 - 16 09/07/2023 7:57 AM [facility] BUN/Creatinine Ratio 10 7 - 23 09/07/2023 7:57 AM [facility] Osmolality Calculated 289 275 - 295 mOsm/kg 09/07/2023 7:57 AM [facility] eGFR by CKD-EPI 77(L) >=90 mL/min/1.7 3 m2 09/07/2023 7:57 AM [facility] Blood BLOOD SPECIMEN / Unknown Lab Venipuncture / Unknown 09/07/2023 6:38 AM ROTARY SHEAR OPERATOR 09/07/2023 7:30 AM ROTARY SHEAR OPERATOR Timi Mills MD LAB - CHEMISTRY ORD ERABLES [address] [address], [facility] [phone] * PHOSPHORUS BLOOD (09/07/2023 6:38 AM ROTARY SHEAR OPERATOR) Only the most recent of2 resultswithin the time period is included. Phosphorus 3.6 2.9 - 5.1 mg/dL 09/07/2023 7:57 AM [facility] Blood BLOOD SPECIMEN / Unknown Lab Venipuncture / Unknown 09/07/2023 6:38 AM ROTARY SHEAR OPERATOR 09/07/2023 7:30 AM ROTARY SHEAR OPERATOR Timi Mills MD LAB - CHEMISTRY ORD ERABLES [address] [address], [facility] [phone] * MAGNESIUM BLOOD (09/07/2023 6:38 AM ROTARY SHEAR OPERATOR) Only the most recent of2 resultswithin the time period is included. Magnesium 1.6 1.6 - 2.6 mg/dL 09/07/2023 7:57 AM ROTARY SHEAR OPERATOR [facility] Blood BLOOD SPECIMEN / Unknown Lab Venipuncture / Unknown 09/07/2023 6:38 AM ROTARY SHEAR OPERATOR 09/07/2023 7:30 AM ROTARY SHEAR OPERATOR Timi Mills MD LAB - CHEMISTRY ORD ERABLES [facility] [address] [place] [address], [facility] [facility] [phone] * CT ANGIO BRAIN AND NECK (09/06/2023 3:30 PM ROTARY SHEAR OPERATOR) Anatomical Region Laterality Modality Head Computed Tomogra phy 09/06/2023 3:32 PM ROTARY SHEAR OPERATOR Impressions 09/06/2023 3:41 PM ROTARY SHEAR OPERATOR IMPRESSION: 1. No acute intracranial hemorrhage. 2. No large arterial occlusions or significant stenoses identified in the head or neck. Scattered atherosclerotic disease in the neck arteries. 3. 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 > Interpreting Provider: Romi Dutton MD on 09/06/2023 3:41 PM Narrative 09/06/2023 3:41 PM ROTARY SHEAR OPERATOR PROCEDURE: CT ANGIO BRAIN AND NECK, DATE/TIME OF EXAM: 09/06/2023 3:30 PM, LOCATION [facility] INDICATION: G45.9: TIA (transient ischemic attack) [...] NECK, DATE/TIME OF EXAM: 09/06/2023 3:30PM, LOCATION [facility] INDICATION: G45.9: TIA (transient ischemic attack) [...] COLOR FLOW AND DOPPLER (09/06/2023 10:11 AM ROTARY SHEAR OPERATOR) BSA [id number] m2 [facility] CV FUJ I PACS LV [...] 1.2 cm [facility] CV FUJ I PACS [id number] 4.285 cm [facility] CV FUJ I PACS [id number] 4.463 cm [facility] CV FUJ I PACS [...] Laterality Modality Ultrasound Narrative 09/06/2023 10:58 AM ROTARY SHEAR OPERATOR Left Ventricle: Left ventricle size is normal. [...] CT HEAD WO CONTRAST (09/06/2023 4:04 AM ROTARY SHEAR OPERATOR) Anatomical Region Laterality Modality Head Computed Tomogra phy 09/06/2023 8:41 AM ROTARY SHEAR OPERATOR Impressions 09/06/2023 9:03 AM ROTARY SHEAR OPERATOR IMPRESSION: 1.No acute intracranial hemorrhage. > Dictated by Chriss Hebert DO (cath lab radiology technician). I, Lay Chaudhry MD have personally reviewed and interpreted this examination/study. > Interpreting Provider: Lay Chaudhry MD on 09/06/2023 9:03 AM Narrative 09/06/2023 9:03 AM ROTARY SHEAR OPERATOR PROCEDURE: CT HEAD WO CONTRAST, DATE/TIME OF EXAM: 09/06/2023 4:05 AM, LOCATION [facility] INDICATION: I63.9: Ischemic stroke ([facility]) ADDITIONAL CLINICAL INFORMATION: Ordering Provider Reason For [...] DATE/TIME OF EXAM: 09/06/2023 4:05 AM, LOCATION [facility] INDICATION: I63.9: Ischemic stroke ([facility]) ADDITIONAL CLINICAL INFORMATION: Ordering Provider Reason For [...] hemorrhage. > Dictated by Chriss Hebert DO (cath lab radiology technician). ILay MD have personally reviewed and interpretedthis examination/study. > Interpreting Provider: Lay Chaudhry MD on 09/06/2023 9:03 AM Timi Mills MD CT ORDERABLES * (ABNORMAL) URINALYSIS REFLEX TO MICROSCOPIC NO CULTURE (09/06/2023 2:58 AM ROTARY SHEAR OPERATOR) Color UA Colorless(A ) Straw, Yellow 09/06/2023 3:17 AM [facility] Clarity UA Clear Clear 09/06/2023 3:17 AM [facility] Specific [place] UA 1.003(L) 1.005 - 1.030 09/06/2023 3:17 AM [facility] pH UA 7.0 5.0 - 8.0 pH 09/06/2023 3:17 AM [facility] Protein UA Negative Negative 09/06/2023 3:17 AM [facility] Glucose UA Negative Negative 09/06/2023 3:17 AM [facility] Ketone UA Negative Negative 09/06/2023 3:17 AM [facility] Bilirubin UA Negative Negative 09/06/2023 3:17 AM [facility] Blood UA Negative Negative 09/06/2023 3:17 AM [facility] Nitrite UA Negative Negative 09/06/2023 3:17 AM [facility] Leukocyte Esterase Negative Negative 09/06/2023 3:17 AM [facility] Urobilinogen UA Negative Negative mg/dL 09/06/2023 3:17 AM [facility] RBC UA 0-2 None Seen, 0-2, 3-5 /HPF 09/06/2023 3:17 AM [facility] WBC UA 0-5 None Seen, 0-5 /HPF 09/06/2023 3:17 AM [facility] Squamous Epithelial Cells UA None Seen None Seen, 0-2, 3-5 /HPF 09/06/2023 3:17 AM [facility] Urine URINE SPECIMEN OBTAINED BY CLEAN CATCH PROCEDURE / Unknown Collection / Unknown 09/06/2023 2:58 AM ROTARY SHEAR OPERATOR 09/06/2023 3:10 AM ROTARY SHEAR OPERATOR Narrative [facility] - 09/06/2023 3:17 AM ROTARY SHEAR OPERATOR Timi Mills MD LAB - URINALYSIS OR DERABLES [facility] [address] [place] [address], [facility] [phone] * (ABNORMAL) URINE DRUG SCREEN IMMUNOASSAY (09/06/2023 2:58 AM [facility]) Amphetamines Screen Urine Negative Negative : < 1000 ng/mL 09/06/2023 3:32 AM [facility] Barbiturates Screen Urine Negative Negative : < 200 ng/mL 09/06/2023 3:32 AM [facility] Benzodiazepine Screen Urine Negative Negative : < 200 ng/mL 09/06/2023 3:32 AM [facility] Opiates Urine Positive(A) Negative : < 300 ng/mL 09/06/2023 3:32 AM [facility] Comment:Positive urine opiat e screening results should be confirmed by another generally accepted non-immunological method such as gas chromatography or mass spectrometry. Cocaine Metabolites Urine Negative Negative : < 300 ng/mL 09/06/2023 3:32 AM [facility] Phencyclidine Screen Urine Negative Negative : < 25 ng/ml 09/06/2023 3:32 AM [facility] Cannabinoids Screen Urine Positive(A) Negative : <50 ng/mL 09/06/2023 3:32 AM [facility] Comment:Positive urine canna binoids (THC) screening results should be confirmed by another generally accepted non-immunological method such as gas chromatography or mass spectrometry. Methadone Screen Urine Negative Negative : < 300 ng/mL 09/06/2023 3:32 AM [facility] Fentanyl Screen Urine Negative Negative : <1.5 ng/mL 09/06/2023 3:32 AM [facility] Urine URINE / Unknown Collection / Unknown 09/06/2023 2:58 AM [facility] 09/06/2023 3:10 AM [facility] Narrative [facility] - 09/06/2023 3:32 AM [facility] The Urine Toxicology Screening Panel does not screen for Propoxyphene, Meprobamate, Carisoprodol, Trazodone, qxqi-yww-fuanazi medications and/or volatiles (Acetone, Isopropanol, Methanol or Ethylene Glycol). Ethanol, Salicylate, Acetaminophen, Tricyclic Antidepressants and several therapeutic drugs may be individually assayed in serum or plasma specimen. Toxicology testing by the [facility] is an aid to medical diagnosis and treatment of patients. No documented chain of custody was maintained. Results are intended to be used for clinical purposes only. Timi Mills MD LAB - URINE SOFTWARE FIRMWARE ENGINEER RY ORDERABLES [address] [address], [facility] [phone] * LIPID PROFILE (09/06/2023 1:46 AM [facility]) Cholesterol Total 144 <200 [...] Lab Venipuncture / Unknown 09/06/2023 1:46 AM ROTARY SHEAR OPERATOR 09/06/2023 2:51 AM ROTARY SHEAR OPERATOR Timi Mills MD LAB - CHEMISTRY ORD ERABLES [facility] [address] [place] [address], [facility] [phone] * GROSS + MICRO EXAM (10/14/1999 8:35 AM ROTARY SHEAR OPERATOR) Only the most recent of2 resultswithin the [...] AND FOREIGN BODY GIANT CELL REACTION SR/KA [id number] X3 Released By LINDA VICENTE MISCELLANEOUS SAMPLES / Unknown 10/14/1999 8:35 AM ROTARY SHEAR OPERATOR 10/14/1999 8:37 AM ROTARY SHEAR OPERATOR Historical Provider LAB - PATHOLOGY/C YTOLOGY ORDERABLES Care Teams Hammersmith Helper Relationship Specialty Start Date End Date Fernando Chavez MD [address] [place] [address] PCP - General Family Medicine 09/06/23
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
== END 2024-09-27 11:27 | disposition home or self-care (01) ==
PROVIDERS: Emergency Provider Emergency Medicine; PCP Family Medicine
DX: S09.90XA Unspecified injury of head, initial encounter (principal); S19.9XXA Unspecified injury of neck, initial encounter; S79.911A Unspecified injury of right hip, initial encounter; S40.022A Contusion of left upper arm, initial encounter; S40.021A Contusion of right upper arm, initial encounter; I65.21 Occlusion and stenosis of right carotid artery; M81.0 Age-related osteoporosis without current pathological fracture; Z86.73 Personal history of transient ischemic attack (TIA), and cerebral infarction without residual deficits; Z86.14 Personal history of Methicillin resistant Staphylococcus aureus infection; Z87.442 Personal history of urinary calculi; Z87.891 Personal history of nicotine dependence; Z90.710 Acquired absence of both cervix and uterus; Z90.2 Acquired absence of lung [part of]; Z90.49 Acquired absence of other specified parts of digestive tract; Z79.02 Long term (current) use of antithrombotics/antiplatelets; Z79.899 Other long term (current) drug therapy; Y04.8XXA Assault by other bodily force, initial encounter
CPT/HCPCS: 70450; 72125; 73700; 99284

== ENCOUNTER 2024-10-06 00:07 | Day surgery (SDC) | payer MEDICARE, SELFPAY ==
[2024-10-02 14:30] VITALS: BMI 16.5
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
--- OUTSIDE RECORDS SUMMARY | 2024-10-06 00:10 | XMS_ITS | Clinical Summary ---
Author Organization [facility] Address [address] [place] [address] Care Team Providers Care News Agent Name Role Phone Fernando Chavez MD Primary Care Provider [phone] Allergies Active Allergy Reactions Criticality Noted Date [...] 07/02/2021 Assessment & Plan (07/02/2021 11:18 AM AIR CONDITIONING ENGINEER): Pt's systolic blood pressure was noted [...] metoprolol for now. Pt is contact her job placement counselor tomorrow for further instructions. Fall 06/29/2021 Assessment & Plan (07/02/2021 11:10 AM AIR CONDITIONING ENGINEER): Mechanical fall day prior to presentation with right hip pain. No prior history of hip pain. Xray of hip and knee were negative. Continue management with nonnarcotic meds. Home health referral made outpt. Assessment & Plan (07/01/2021 10:55 AM AIR CONDITIONING ENGINEER): Mechanical fall day prior to presentation with right hip pain. No prior history of hip pain. Xray of hip and knee were negative. Continue management with nonnarcotic meds. PT consulted. Assessment & Plan (06/30/2021 11:54 AM AIR CONDITIONING ENGINEER): Mechanical fall yesterday with right hip pain. No prior history of hip pain. Xray of hip and knee were negative. Continue management with nonnarcotic meds. PT consulted but pt refused to work with PT this morning. Assessment & Plan (06/29/2021 1:48 PM AIR CONDITIONING ENGINEER): Mechanical fall yesterday with right hip pain. No prior history of hip pain. Xray of hip and knee were negative. Continue management with nonnarcotic meds. Acute hypoxemic respiratory failure 02/08/2021 Elevated troponin 01/14/2021 Atypical chest pain 01/14/2021 Assessment & Plan (07/02/2021 11:09 AM AIR CONDITIONING ENGINEER): Troponins are negative. Continue to follow with job placement counselor as outpatient. Assessment & Plan (07/01/2021 10:54 AM AIR CONDITIONING ENGINEER): Troponins are negative. Continue to follow with job placement counselor as outpatient. Assessment & Plan (06/30/2021 11:52 AM AIR CONDITIONING ENGINEER): Troponins are negative. Continue to follow with job placement counselor as outpatient. Assessment & Plan (06/29/2021 1:45 PM AIR CONDITIONING ENGINEER): Troponins are negative. Continue to follow with job placement counselor as outpatient. Hepatitis 01/14/2021 Tylenol overdose 01/14/2021 [...] (04/11/2020): Added automatically from request for surgery [id number] Assessment & Plan (07/02/2021 10:58 AM AIR CONDITIONING ENGINEER): Please see constipation noted elsewhere. CT is otherwise unremarkable. Pt also has underlying chronic abdominal pain. Assessment & Plan (07/01/2021 10:53 AM AIR CONDITIONING ENGINEER): Please see constipation noted elsewhere. CT is otherwise unremarkable. Pt also has underlying chronic abdominal pain. Assessment & Plan (06/30/2021 11:49 AM AIR CONDITIONING ENGINEER): Please see constipation noted elsewhere. CT is otherwise unremarkable. Pt also has underlying chronic abdominal pain. Assessment & Plan (06/29/2021 1:48 PM AIR CONDITIONING ENGINEER): Please see constipation noted elsewhere. CT [...] NOS Assessment & Plan (07/02/2021 11:09 AM AIR CONDITIONING ENGINEER): Continue home meds. Assessment & Plan (07/01/2021 10:53 AM AIR CONDITIONING ENGINEER): Continue home meds. Assessment & Plan (06/30/2021 11:51 AM AIR CONDITIONING ENGINEER): Continue home meds. Assessment & Plan (06/29/2021 1:46 PM AIR CONDITIONING ENGINEER): Continue home meds. Assessment & Plan (04/23/2020 1:50 PM CDT): - home clonazepam 0.5mg BID Acute cerebrovascular insufficiency 12/26/2013 Overview (11/16/2016): AC CEREBROVASC INSUF NOS Constipation Assessment & Plan (07/02/2021 11:09 AM AIR CONDITIONING ENGINEER): Pt's history and CT suggests this; no suggestion of bowel obstruction on CT. Continue bowel regimen and monitor for stools. Avoid narcotics; pt reports she is not on any narcotics at home. Mag citrate was tried per pt's request but this did not result in bm. She drank @ 2L of Golytely with good results. Assessment & Plan (07/01/2021 10:53 AM AIR CONDITIONING ENGINEER): Pt's history and CT suggests this; no suggestion of bowel obstruction on CT. Continue bowel regimen and monitor for stools. Avoid narcotics; pt reports she is not on any narcotics at home. Mag citrate was tried yesterday per pt's request but this did not result in bm. She drank @ 2L of Golytely with good results. Assessment & Plan (06/30/2021 11:50 AM AIR CONDITIONING ENGINEER): Pt's history and CT suggests this; no suggestion of bowel obstruction. Continue bowel regimen and monitor for stools. Avoid narcotics; pt reports she is not on any narcotics at home. Mag citrate was tried yesterday per pt's request but this did not result in bm. Plan is to place NG and give Golytely through this today. Assessment & Plan (06/29/2021 1:44 PM AIR CONDITIONING ENGINEER): Pt's history and CT suggests this; [...] Endometriosis-21 times Trigeminal neuralgia Colon obstruction (CMS/HCC) ([facility]) PONV (postoperative nausea and vomiting) [...] any clubs o r organizations such as congregation groups, unions, fraternal or athletic groups, or [...] on file Legal Sex Female 5:42 AM AIR CONDITIONING ENGINEER Gender Identity Not on file Sexual [...] (2 - Td or Tdap) 07/20/202904/2019 Insurance [facility] MEDICARE HMO [facility] CHOICE OOS [facility] [employer] CHOICE [employer] MEDICARE HMO Advance Directives For more information, please contact: [phone] * Full Code (Latest Code Status on [...] 4:23 PM 04/28/2020 8:27 PM Care Teams News Agent Relationship Specialty Start Date End Date Fernando Chavez MD [address] [place] [address] [id number] PCP - General Family Medicine 03/05/24
--- OUTSIDE RECORDS SUMMARY | 2024-10-06 00:10 | XMS_ITS | Patient Health Summary ---
Author Organization [facility] Address [address] [place] [address] Care Team Providers Care Packaging Specialist Name Role Phone Fernando Chavez MD Primary Care Provider Note from [facility],non-owned Affiliates and Associated Physician Practices is amultiple site organization consisting of ambulatory clinics and hospital sitesin [place], [place], [place] and [place]. This disclosure is being madepursuant to the Care Everywhere program and may not contain all information available regarding this patient. Last updated 18.[facility] Allergies * Bupropion(Unknown) * Codeine(Itching) [...] Respiratory Rate 10 10/18/2023 11:1 1 AM ELECTRIC TRUCKER Oxygen Saturation 98% 11/14/2023 3:18 PM CDT [...] IR CAROTID CEREBRAL ANGIOGRAM (09/27/2023 2:09 PM ELECTRIC TRUCKER) Anatomical Region Laterality Modality Head X-Ray Angiograph y 09/27/2023 1:55 PM ELECTRIC TRUCKER Impressions 10/01/2023 10:25 AM ELECTRIC TRUCKER Impression: 1. Severe flow-limiting stenosis of the proximal right subclavian artery measuring 90%. 2. The Right carotid artery supplies the right anterior circulation as well as right posterior circulation via a right COIN MACHINE MECHANIC. There is no contribution from the left [...] 10/01/2023 10:25 AM Narrative 10/01/2023 10:25 AM ELECTRIC TRUCKER PROCEDURE: IR CAROTID CEREBRAL ANGIOGRAM DATE/TIME OF [...] cerebral infarction.Vascular surgery consult of possible bypass. [place]: Soham Mills Retail Assistant(s): Tanika Orourke Vessels: Ultrasound Guided Access of Femoral Artery Left Subclavian Artery Angiogram: Cervical and Cerebral Right Innominate Artery Angiogram: Cervical and Cerebral Left Common Carotid Artery Angiogram: Cervical and Cerebral Right Femoral Artery Angiogram Anesthesia: I, Dr. Julius Mills, was present for the entire duration of the procedure. Moderate sedation on this adult patient ws ordered by the asphalt heater operator, administered intravenously in my presence, and [...] Following a series of exchanges, a 6 Bahamian 30 cm Brite tip sheath was placed in the right femoral artery and a 5 Bahamian sim2 catheter was navigated into the aortic [...] system. Hemostasis was achieved using a 6 Bahamian Angio-Seal closure device. Hemostasis was immediate at [...] poor distal vessel opacification. A large right COIN MACHINE MECHANIC is visualized. The right carotid artery supplies the right anterior circulation as well as right posterior circulation via a right COIN MACHINE MECHANIC. The right vertebral artery is non-dominant with [...] cerebral infarction.Vascular surgery consult of possible bypass. [place]: Soham Mills Retail Assistant(s): Tanika Orourke Vessels: Ultrasound Guided Access of Femoral Artery Left Subclavian Artery Angiogram: Cervical and Cerebral Right Innominate Artery Angiogram: Cervical and Cerebral Left Common Carotid Artery Angiogram: Cervical and Cerebral Right Femoral Artery Angiogram Anesthesia: I, Dr. Julius Mills, was present for the entire duration ofthe procedure. Moderate sedation on this adult patient ws ordered by the asphalt heater operator, administered intravenously in my presence, and [...] documented. Following aseries of exchanges, a 6 Bahamian 30 cm Brite tip sheath was placed in the right femoral artery and a 5 Bahamian sim2 catheter was navigated into theaortic arch. [...] arterial system.Hemostasis was achieved using a 6 Bahamian Angio-Seal closure device. Hemostasis was immediate at [...] poor distal vessel opacification. A large right COIN MACHINE MECHANIC is visualized. The right carotid artery supplies the right anterior circulation as well as right posterior circulation via a right COIN MACHINE MECHANIC. The right vertebral artery is non-dominant with [...] as right posterior circulation via a right COIN MACHINE MECHANIC. There is no contribution from the left [...] Bear MD IR ORDERABLES * (ABNORMAL) PTT [facility] (09/27/2023 9:29 AM ELECTRIC TRUCKER) Only the most recent of12 resultswithin the time period is included. APTT 57.9(H) 23.0 - 38.4 Seconds 09/27/2023 10:25 AM [facility] Comment:Suggested therapeuti c range for full dose I.V. unfractionated heparin therapy for venous thromboembolism is 71 to 109 seconds. Blood BLOOD SPECIMEN / Unknown Lab Venipuncture / Unknown 09/27/2023 9:29 AM ELECTRIC TRUCKER 09/27/2023 10:01 AM ELECTRIC TRUCKER Joseluis Bear MD LAB - COAGULATION OR DERABLES [facility] [address] [place] [address], [facility] [phone] * PT-INR [facility] (09/27/2023 1:50 AM ELECTRIC TRUCKER) Only the most recent of6 resultswithin the time period is included. PT 13.9 12.1 - 14.8 Seconds 09/27/2023 2:38 AM ELECTRIC TRUCKER [facility] INR 1.1 See Comment 09/27/2023 2:38 AM ELECTRIC TRUCKER [facility] Comment:The suggested therap eutic range for standard coumadin (warfarin) therapy is an INR of 2.0-3.0. For high-risk patients (Mechanical Mitral Valve Prosthesis, etc.), the suggested prophylactic therapeutic range is an INR of 2.5-3.5. Blood BLOOD SPECIMEN / Unknown Lab Venipuncture / Unknown 09/27/2023 1:50 AM ELECTRIC TRUCKER 09/27/2023 2:11 AM ELECTRIC TRUCKER Joseluis Bear MD LAB - COAGULATION OR DERABLES [facility] [address] [place] [address], [place] [phone] * CBC W AUTO DIFFERENTIAL (09/27/2023 1:50 AM ELECTRIC TRUCKER) Only the most recent of6 resultswithin the time period is included. WBC 7.0 4.0 - 10.7 x10E9/L 09/27/2023 2:07 AM [facility] RBC Count 3.96 3.90 - 5.20 x10E12/L 09/27/2023 2:07 AM [facility] Hemoglobin 12.0 11.9 - 15.8 g/dL 09/27/2023 2:07 AM [facility] Hematocrit 35.1 34.8 - 46.1 % 09/27/2023 2:07 AM [facility] MCV 88.6 80.0 - 98.0 fL 09/27/2023 2:07 AM [facility] MCH 30.3 26.7 - 33.6 pg 09/27/2023 2:07 AM [facility] MCHC 34.2 31.7 - 36.3 g/dL 09/27/2023 2:07 AM [facility] RDW-CV 12.5 11.3 - 14.8 % 09/27/2023 2:07 AM [facility] Platelet Count 334 150 - 420 x10E9/L 09/27/2023 2:07 AM [facility] MPV 9.6 7.8 - 11.4 fL 09/27/2023 2:07 AM [facility] Neutrophil % 55.4 41.0 - 74.0 % 09/27/2023 2:07 AM [facility] Lymphocyte % 33.0 17.0 - 47.0 % 09/27/2023 2:07 AM [facility] Monocyte % 8.0 3.0 - 11.0 % 09/27/2023 2:07 AM [facility] Eosinophil % 2.9 0.0 - 7.0 % 09/27/2023 2:07 AM [facility] Basophil % 0.6 0.0 - 1.6 % 09/27/2023 2:07 AM [facility] Immature Granulocytes % 0.1 0.0 - 1.0 % 09/27/2023 2:07 AM [facility] Neutrophil Absolute 3.85 1.60 - 7.50 x10E9/L 09/27/2023 2:07 AM ELECTRIC TRUCKER [facility] Lymphocyte Absolute 2.30 1.00 - 4.40 x10E9/L 09/27/2023 2:07 AM ELECTRIC TRUCKER [facility] Monocyte Absolute 0.56 0.15 - 1.00 x10E9/L 09/27/2023 2:07 AM [facility] Eosinophil Absolute 0.20 0.00 - 0.60 x10E9/L 09/27/2023 2:07 AM [facility] Basophil Absolute 0.04 0.00 - 0.13 x10E9/L 09/27/2023 2:07 AM [facility] Blood BLOOD SPECIMEN / Unknown Lab Venipuncture / Unknown 09/27/2023 1:50 AM ELECTRIC TRUCKER 09/27/2023 2:00 AM ELECTRIC TRUCKER Joseluis Bear MD LAB - HEMATOLOGY ORD ERABLES [facility] [address] [place] [address], [facility] [phone] * VAS ARTERIAL ANKLE ARM INDEX (09/26/2023 8:21 AM ELECTRIC TRUCKER) Anatomical Region Laterality Modality Ankle / Foot, Upper Extremity In travascular Ultrasound 09/26/2023 7:38 AM ELECTRIC TRUCKER Narrative Procedure Note Kennedy Romero MD - 09/26/2023 Joseluis Bear MD VASCULAR LAB ORDERAB LES * CARDIAC EKG ORDER (09/25/2023 2:19 PM ELECTRIC TRUCKER) Narrative 09/25/2023 2:19 PM ELECTRIC TRUCKER Ordered by an unspecified provider. Scanned Document CARDIAC SERVICES ORD ERABLES * MRI BRAIN WO CONTRAST (09/24/2023 3:47 PM ELECTRIC TRUCKER) Only the most recent of2 resultswithin the time period is included. Anatomical Region Laterality Modality Head Magnetic Resonan ce 09/24/2023 3:51 PM ELECTRIC TRUCKER Impressions 09/25/2023 8:24 AM ELECTRIC TRUCKER IMPRESSION: 1. No evidence of acute cerebral [...] 09/25/2023 8:24 AM Narrative 09/25/2023 8:24 AM ELECTRIC TRUCKER PROCEDURE: MRI BRAIN WO CONTRAST DATE/TIME OF [...] VAS TRANSCRANIAL DOPPLER COMP (09/24/2023 2:15 PM ELECTRIC TRUCKER) Only the most recent of2 resultswithin the time period is included. Anatomical Region Laterality Modality Head Intravascular Ul trasound 09/24/2023 12:3 6 PM ELECTRIC TRUCKER Narrative Procedure Note Timi Mills MD - 10/10/2023 Joseluis Bear MD VASCULAR LAB ORDERAB LES * VAS CAROTID DUPLEX BILATERAL (09/24/2023 2:14 PM ELECTRIC TRUCKER) Only the most recent of2 resultswithin the time period is included. Anatomical Region Laterality Modality Neck Intravascular Ul trasound 09/24/2023 12:5 3 PM ELECTRIC TRUCKER Narrative Procedure Note Mark Salmeron MD - 09/24/2023 Joseluis Bear MD VASCULAR LAB ORDERAB LES * TROPONIN-I HIGH SENSITIVE REFLEX 1HOUR (09/24/2023 5:45 AM ELECTRIC TRUCKER) Only the most recent of2 resultswithin the time period is included. [facility] Troponin I High Sensitive <3 <=14 ng/L 09/24/2023 7:39 AM ELECTRIC TRUCKER [facility] Delta Troponin I HS 09/24/2023 7:39 AM ELECTRIC TRUCKER [facility] Comment:Result exceeds linea rity range. A delta value is unable to be calculated. Blood BLOOD SPECIMEN / Unknown Venipuncture / Unknown 09/24/2023 5:45 AM ELECTRIC TRUCKER 09/24/2023 6:44 AM ELECTRIC TRUCKER Clayton Frazier MD LAB - CHEMISTRY [facility] Organization Address City/State/ZIP Co de Phone Number [facility] [address] [place] [address], [facility] [phone] * EKG 12-LEAD (09/24/2023 5:21 AM ELECTRIC TRUCKER) Only the most recent of2 resultswithin the time period is included. Ventricular Rate 61 BPM [facility]USE Atrial Rate 61 BPM [facility] MUSE P-R Interval 158 ms [facility] MUSE QRS Duration ms 76 ms [facility] MUSE Q-T Interval ms 484 ms [facility] QTC Calculation (Bezet) 487 ms [facility] Calculated P Alva 75 degrees [facility] Calculated R Alva 84 degrees [facility] Calculated T Alva 88 degrees [facility] Interpretation EKG SINUS RHYTHM WITH MARKED SINUS ARRYTHMIA NONSPECIFIC T WAVE ABNORMALITY PROLONGED QT ABNORMAL ECG WHEN COMPARED WITH ECG OF 18-SEP-2023 14:24, T WAVE INVERSION NOW EVIDENT IN ANTERIOR LEADS Confirmed by MICHAEL CRISTOBAL MD ([id number]) on 09/28/2023 9:49:30 AM [facility] MUSE 09/24/2023 5:21 AM ELECTRIC TRUCKER 09/28/2023 9:49 AM ELECTRIC TRUCKER Clayton Frazier MD ECG ORDERABLES [facility] MUSE * CT ANGIO BRAIN NECK STROKE (09/24/2023 4:35 AM ELECTRIC TRUCKER) Anatomical Region Laterality Modality Head Computed Tomogra phy 09/24/2023 4:47 AM ELECTRIC TRUCKER Impressions 09/24/2023 10:43 AM ELECTRIC TRUCKER IMPRESSION: 1.No significant change since prior. 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 3.Severe stenosis of the origin of the right subclavian artery is again noted. 4.Otherwise, no large arterial occlusions or significant stenoses identified in the head or neck. Viz.AI was used for large vessel occlusion detection. > Dictated by Dutch Morales DO (vice president of instruction). I, Lay Chaudhry MD have personally reviewed and interpreted this examination/study. > Interpreting Provider: Lay Chaudhry MD on 09/24/2023 10:43 AM Narrative 09/24/2023 10:43 AM ELECTRIC TRUCKER PROCEDURE: CT ANGIO BRAIN NECK STROKE, DATE/TIME OF EXAM: 09/24/2023 5:19 AM, LOCATION [facility] INDICATION: Code Stroke ADDITIONAL CLINICAL INFORMATION: [...] STROKE, DATE/TIME OF EXAM: 45:19 AM, LOCATION [facility] INDICATION: Code Stroke ADDITIONAL CLINICAL INFORMATION: [...] by Dutch Morales DO (vice president of instruction). Lay Casillas MD have personally reviewed and interpretedthis examination/study. > Interpreting Provider: Lay Chaudhry MD on 09/24/2023 10:43 AM Clayton Frazier MD CT ORDERABLES * TROPONIN-I HIGH SENSITIVE BASELINE + 1HR (09/24/2023 4:30 AM ELECTRIC TRUCKER) Only the most recent of2 resultswithin the time period is included. [facility] Troponin I High Sensitive <3 <=14 ng/L 09/24/2023 5:16 AM ELECTRIC TRUCKER [facility] Blood BLOOD SPECIMEN / Unknown Venipuncture / Unknown 09/24/2023 4:30 AM ELECTRIC TRUCKER 09/24/2023 4:37 AM ELECTRIC TRUCKER Clayton Frazier MD LAB - CHEMISTRY ORDE RABANIL Performing Organization Address City/[facility]/ZIP Co de Phone Number [address] [address], [facility] [phone] * TYPE + SCREEN PANEL (09/24/2023 4:30 AM ELECTRIC TRUCKER) Only the most recent of2 resultswithin the time period is included. [facility] Antibody Screen NEG 5:14 AM ELECTRIC TRUCKER [facility] ABO Rh A NEG 09/24/2023 5:14 AM [facility] Blood Bank BLOOD SPECIMEN / Unknown Venipuncture / Unknown 09/24/2023 4:30 AM ELECTRIC TRUCKER 09/24/2023 4:37 AM ELECTRIC TRUCKER Clayton Frazier MD LAB - BLOOD BANK ORD ERABLES [facility] [address] [place] [address], [facility] [phone] * (ABNORMAL) COMPREHENSIVE METABOLIC PANEL (09/24/2023 4:30 AM ELECTRIC TRUCKER) [facility] BUN 16 7 - 26 mg/dL 09/24/2023 5:10 AM [facility] Creatinine 0.91 0.56 - 0.96 mg/dL 09/24/2023 5:10 AM [facility] Sodium 141 136 - 145 mmol/L 09/24/2023 5:10 AM [facility] Potassium 3.9 3.5 - 4.5 mmol/L 09/24/2023 5:10 AM [facility] Comment:Hemolysis detected i n this specimen. Hemolysis may cause false elevations in potassium leading to pseudohyperkalemia or masked hypokalemia. Recommend repeat testing if clinically indicated. Chloride 107 98 - 107 mmol/L 09/24/2023 5:10 AM [facility] CO2 24 22 - 29 mmol/L 09/24/2023 5:10 AM [facility] Glucose 77 70 - 115 mg/dL 09/24/2023 5:10 AM [facility] Calcium 9.4 8.4 - 10.2 mg/dL 09/24/2023 5:10 AM [facility] Protein Total 7.7 6.0 - 8.3 g/dL 09/24/2023 5:10 AM [facility] Comment:Hemolysis detected i n this specimen. Hemolysis is known to cause elevations in this analyte. Caution should be exercised in the interpretation of this result. Recommend repeat testing if clinically indicated. Albumin 4.2 3.4 - 5.0 g/dL 09/24/2023 5:10 AM [facility] Bilirubin Total 0.3 0.2 - 1.2 mg/dL 09/24/2023 5:10 AM [facility] Alkaline Phosphatase 93 40 - 150 U/L 09/24/2023 5:10 AM [facility] ALT 18 5 - 55 U/L 09/24/2023 5:10 AM [facility] AST 34 5 - 34 U/L 09/24/2023 5:10 AM [facility] Comment:Hemolysis detected i n this specimen. Hemolysis is known to cause elevations in this analyte. Caution should be exercised in the interpretation of this result. Recommend repeat testing if clinically indicated. Anion Gap 10 6 - 16 09/24/2023 5:10 AM [facility] BUN/Creatinine Ratio 18 7 - 23 09/12 5:10 AM [facility] Osmolality Calculated 292 275 - 295 mOsm/kg 09/24/2023 5:10 AM [facility] Albumin/Globulin Ratio 1.2 1.1 - 2.3 5:10 AM [facility] eGFR by CKD-EPI 74(L) >=90 mL/min/1. 73 m2 09/24/2023 5:10 AM [facility] Blood BLOOD SPECIMEN / Unknown Venipuncture / Unknown 09/24/2023 4:30 AM ELECTRIC TRUCKER 09/24/2023 4:37 AM ELECTRIC TRUCKER Clayton Frazier MD LAB - CHEMISTRY ORDE UMESH [facility] [address] [place] [address], [facility] [phone] * INR WHOLE BLOOD - POINT OF CARE (IP) STROKE (09/24/2023 4:28 AM ELECTRIC TRUCKER) INR 1.0 0.9 - 1.2 09/25/2023 11:05 AM [facility] Device [id number] 09/25/2023 11:05 AM [facility] [place] ID [id number] 09/25/2023 11:05 AM [facility] Blood BLOOD SPECIMEN / Unknown 09/24/2023 4:28 AM ELECTRIC TRUCKER 09/25/2023 11:05 AM ELECTRIC TRUCKER Provider Unknown LAB - POINT OF CARE ORDERABLES [facility] [address] [place] [address], [place] [phone] * (ABNORMAL) CREATININE - POCT INTERFACED (09/24/2023 4:27 AM ELECTRIC TRUCKER) Creatinine POCT 0.78 0.30 - 1.30 mg/dL 09/25/2023 4:00 PM [facility] eGFR 89(L) >90 mL/min/1.7 3 m2 09/25/2023 4:00 PM [facility] Blood BLOOD SPECIMEN / Unknown 09/24/2023 4:27 AM ELECTRIC TRUCKER 09/25/2023 4:00 PM ELECTRIC TRUCKER Provider Unknown LAB - POINT OF CARE ORDERABLES Performing Organization Address City/[facility]/ZIP Co de Phone Number [address] [address], [facility] [phone] * GLUCOSE - POINT OF CARE (09/24/2023 4:14 AM ELECTRIC TRUCKER) Only the most recent of5 resultswithin the time period is included. Glucose WB/POC 105 70 - 115 mg/dL 09/24/2023 4:18 AM ELECTRIC TRUCKER [facility] Specimen Type Cap Fingerstick 2023 4:18 AM ELECTRIC TRUCKER [facility] Blood BLOOD SPECIMEN / Unknown 09/24/2023 4:14 AM ELECTRIC TRUCKER 09/24/2023 4:18 AM ELECTRIC TRUCKER Provider Unknown LAB - POINT OF CARE ORDERABLES Performing Organization Address [facility]/ZIP Co de Phone Number [address] [address], [facility] [phone] * CT BRAIN - Stroke (09/24/2023 4:07 AM ELECTRIC TRUCKER) Anatomical Region Laterality Modality Head Computed Tomogra phy 09/24/2023 7:04 AM ELECTRIC TRUCKER Impressions 09/24/2023 10:33 AM ELECTRIC TRUCKER IMPRESSION: 1.No acute intracranial hemorrhage. 2.Please note that CT is insensitive to nonhemorrhagic strokes and MRI should be considered if there is clinical concern for acute infarction. 3.Fundus examination is recommended to exclude papilledema and/or the possibility of idiopathic intracranial hypertension (IIH). > Dictated by Theo Hebert DO (information services vice president) ILay MD have personally reviewed and interpreted this examination/study. > Interpreting Provider: Lay Chaudhry MD on 09/24/2023 10:33 AM Narrative 09/24/2023 10:33 AM ELECTRIC TRUCKER PROCEDURE: CT BRAIN STROKE, DATE/TIME OF EXAM: 09/24/2023 4:14 AM, LOCATION [facility] INDICATION: Code Stroke EXAMINATION: Computed tomography [...] DATE/TIME OF EXAM: 09/24/2023 4:14 AM, LOCATION [facility] INDICATION: Code Stroke EXAMINATION: Computed tomography [...] (IIH). > Dictated by Theo Hebert DO (information services vice president) Lay Casillas MD have personally reviewed and interpretedthis examination/study. > Interpreting Provider: Lay Chaudhry MD on 09/24/2023 10:33 AM Clayton Frazier MD CT ORDERABLES * SARS-COV-2 (COVID-19) RAPID (09/07/2023 12:13 PM ELECTRIC TRUCKER) Pathologist [facility] COVID-19 PCR Not detected Not detected 09/07/19 12:57 PM [facility] Microbiology SPECIMEN FROM NASOPHARYNGEAL STRUCTURE / Unknown Collection / Unknown 09/07/2023 12:13 PM ELECTRIC TRUCKER 09/07/2023 12:22 PM ELECTRIC TRUCKER Narrative [facility] - 09/07/2023 12:57 PM ELECTRIC TRUCKER The [employer] Xpert Xpress SARS-COV-2 has been authorized by [...] - MICROBIOLOGY O RDERATOSIN Performing Organization Address City/State/[facility] Co de Phone Number [facility] [address] [place] [address], [facility] [phone] * (ABNORMAL) BASIC METABOLIC PANEL (CALCIUM TOTAL) (09/07/2023 6:38 AM ELECTRIC TRUCKER) Only the most recent of2 resultswithin the time period is included. Pathologist [facility] BUN 9 7 - 26 mg/dL 09/07/2023 7:57 AM [facility] Creatinine 0.88 0.56 - 0.96 mg/dL 09/07/2023 7:57 AM [facility] Sodium 140 136 - 145 mmol/L 09/07/2023 7:57 AM [facility] Potassium 3.1(L) 3.5 - 4.5 mmol/L 09/07/2023 7:57 AM [facility] Chloride 107 98 - 107 mmol/L 09/07/2023 7:57 AM [facility] CO2 24 22 - 29 mmol/L 09/07/2023 7:57 AM [facility] Glucose 98 70 - 115 mg/dL 09/07/2023 7:57 AM [facility] Calcium 9.1 8.4 - 10.2 mg/dL 09/07/2023 7:57 AM [facility] Anion Gap 9 6 - 16 09/07/2023 7:57 AM [facility] BUN/Creatinine Ratio 10 7 - 23 09/07/2023 7:57 AM [facility] Osmolality Calculated 289 275 - 295 mOsm/kg 09/07/2023 7:57 AM [facility] eGFR by CKD-EPI 77(L) >=90 mL/min/1.7 3 m2 09/07/2023 7:57 AM [facility] Blood BLOOD SPECIMEN / Unknown Lab Venipuncture / Unknown 09/07/2023 6:38 AM ELECTRIC TRUCKER 09/07/2023 7:30 AM ELECTRIC TRUCKER Timi Mills MD LAB - CHEMISTRY ORD ERABLES [address] [address], [facility] [phone] * PHOSPHORUS BLOOD (09/07/2023 6:38 AM ELECTRIC TRUCKER) Only the most recent of2 resultswithin the time period is included. Phosphorus 3.6 2.9 - 5.1 mg/dL 09/07/2023 7:57 AM [facility] Blood BLOOD SPECIMEN / Unknown Lab Venipuncture / Unknown 09/07/2023 6:38 AM ELECTRIC TRUCKER 09/07/2023 7:30 AM ELECTRIC TRUCKER Timi Mills MD LAB - CHEMISTRY ORD ERABLES [address] [address], [facility] [phone] * MAGNESIUM BLOOD (09/07/2023 6:38 AM ELECTRIC TRUCKER) Only the most recent of2 resultswithin the time period is included. Magnesium 1.6 1.6 - 2.6 mg/dL 09/07/2023 7:57 AM ELECTRIC TRUCKER [facility] Blood BLOOD SPECIMEN / Unknown Lab Venipuncture / Unknown 09/07/2023 6:38 AM ELECTRIC TRUCKER 09/07/2023 7:30 AM ELECTRIC TRUCKER Timi Mills MD LAB - CHEMISTRY ORD ERABLES [facility] [address] [place] [address], [facility] [phone] * CT ANGIO BRAIN AND NECK (09/06/2023 3:30 PM ELECTRIC TRUCKER) Anatomical Region Laterality Modality Head Computed Tomogra phy 09/06/2023 3:32 PM ELECTRIC TRUCKER Impressions 09/06/2023 3:41 PM ELECTRIC TRUCKER IMPRESSION: 1. No acute intracranial hemorrhage. 2. No large arterial occlusions or significant stenoses identified in the head or neck. Scattered atherosclerotic disease in the neck arteries. 3. 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 > Interpreting Provider: Romi Dutton MD on 09/06/2023 3:41 PM Narrative 09/06/2023 3:41 PM ELECTRIC TRUCKER PROCEDURE: CT ANGIO BRAIN AND NECK, DATE/TIME OF EXAM: 09/06/2023 3:30 PM, LOCATION [facility] INDICATION: G45.9: TIA (transient ischemic attack) [...] NECK, DATE/TIME OF EXAM: 09/06/2023 3:30PM, LOCATION [facility] INDICATION: G45.9: TIA (transient ischemic attack) [...] COLOR FLOW AND DOPPLER (09/06/2023 10:11 AM ELECTRIC TRUCKER) BSA [id number] m2 [facility] CV FUJ I PACS LV [...] 1.2 cm [facility] CV FUJ I PACS [id number] 4.285 cm [facility] CV FUJ I PACS [id number] 4.463 cm [facility] CV FUJ I PACS [...] Laterality Modality Ultrasound Narrative 09/06/2023 10:58 AM ELECTRIC TRUCKER Left Ventricle: Left ventricle size is normal. [...] CT HEAD WO CONTRAST (09/06/2023 4:04 AM ELECTRIC TRUCKER) Anatomical Region Laterality Modality Head Computed Tomogra phy 09/06/2023 8:41 AM ELECTRIC TRUCKER Impressions 09/06/2023 9:03 AM ELECTRIC TRUCKER IMPRESSION: 1.No acute intracranial hemorrhage. > Dictated by Chriss Hebert DO (vice president of instruction). I, Lay Chaudhry MD have personally reviewed and interpreted this examination/study. > Interpreting Provider: Lay Chaudhry MD on 09/06/2023 9:03 AM Narrative 09/06/2023 9:03 AM ELECTRIC TRUCKER PROCEDURE: CT HEAD WO CONTRAST, DATE/TIME OF EXAM: 09/06/2023 4:05 AM, LOCATION [place] Health INDICATION: I63.9: Ischemic stroke ([facility]) ADDITIONAL CLINICAL INFORMATION: Ordering Provider Reason [...] DATE/TIME OF EXAM: 09/06/2023 4:05 AM, LOCATION [facility] INDICATION: I63.9: Ischemic stroke ([facility]) ADDITIONAL CLINICAL INFORMATION: Ordering Provider [...] Dictated by Chriss Hebert DO (vice president of instruction). ILay MD have personally reviewed and interpretedthis examination/study. > Interpreting Provider: Lay Chaudhry MD on 09/06/2023 9:03 AM Timi Mills MD CT ORDERABLES * (ABNORMAL) URINALYSIS REFLEX TO MICROSCOPIC NO CULTURE (09/06/2023 2:58 AM ELECTRIC TRUCKER) Color UA Colorless(A ) Straw, Yellow 09/06/2023 3:17 AM [facility] Clarity UA Clear Clear 09/06/2023 3:17 AM [facility] Specific [place] UA 1.003(L) 1.005 - 1.030 09/06/2023 3:17 AM [facility] pH UA 7.0 5.0 - 8.0 pH 09/06/2023 3:17 AM [facility] Protein UA Negative Negative 09/06/2023 3:17 AM [facility] Glucose UA Negative Negative 09/06/2023 3:17 AM [facility] Ketone UA Negative Negative 09/06/2023 3:17 AM [facility] Bilirubin UA Negative Negative 09/06/2023 3:17 AM [facility] Blood UA Negative Negative 09/06/2023 3:17 AM [facility] Nitrite UA Negative Negative 09/06/2023 3:17 AM [facility] Leukocyte Esterase Negative Negative 09/06/2023 3:17 AM [facility] Urobilinogen UA Negative Negative mg/dL 09/06/2023 3:17 AM [facility] RBC UA 0-2 None Seen, 0-2, 3-5 /HPF 09/06/2023 3:17 AM [facility] WBC UA 0-5 None Seen, 0-5 /HPF 09/06/2023 3:17 AM [facility] Squamous Epithelial Cells UA None Seen None Seen, 0-2, 3-5 /HPF 09/06/2023 3:17 AM [facility] Urine URINE SPECIMEN OBTAINED BY CLEAN CATCH PROCEDURE / Unknown Collection / Unknown 09/06/2023 2:58 AM ELECTRIC TRUCKER 09/06/2023 3:10 AM ELECTRIC TRUCKER Narrative [facility] - 09/06/2023 3:17 AM ELECTRIC TRUCKER Timi Mills MD LAB - URINALYSIS OR DERABLES [facility] [address] [place] [address], [facility] [phone] * (ABNORMAL) URINE DRUG SCREEN IMMUNOASSAY (09/06/2023 2:58 AM [facility]) Amphetamines Screen Urine Negative Negative : < 1000 ng/mL 09/06/2023 3:32 AM [facility] Barbiturates Screen Urine Negative Negative : < 200 ng/mL 09/06/2023 3:32 AM [facility] Benzodiazepine Screen Urine Negative Negative : < 200 ng/mL 09/06/2023 3:32 AM [facility] Opiates Urine Positive(A) Negative : < 300 ng/mL 09/06/2023 3:32 AM [facility] Comment:Positive urine opiat e screening results should be confirmed by another generally accepted non-immunological method such as gas chromatography or mass spectrometry. Cocaine Metabolites Urine Negative Negative : < 300 ng/mL 09/06/2023 3:32 AM [facility] Phencyclidine Screen Urine Negative Negative : < 25 ng/ml 09/06/2023 3:32 AM [facility] Cannabinoids Screen Urine Positive(A) Negative : <50 ng/mL 09/06/2023 3:32 AM [facility] Comment:Positive urine canna binoids (THC) screening results should be confirmed by another generally accepted non-immunological method such as gas chromatography or mass spectrometry. Methadone Screen Urine Negative Negative : < 300 ng/mL 09/06/2023 3:32 AM [facility] Fentanyl Screen Urine Negative Negative : <1.5 ng/mL 09/06/2023 3:32 AM [facility] Urine URINE / Unknown Collection / Unknown 09/06/2023 2:58 AM [facility] 09/06/2023 3:10 AM [facility] Narrative [facility] - 09/06/2023 3:32 AM [facility] The Urine Toxicology Screening Panel does not screen for Propoxyphene, Meprobamate, Carisoprodol, Trazodone, clsj-ssq-vknebzp medications and/or volatiles (Acetone, Isopropanol, Methanol or Ethylene Glycol). Ethanol, Salicylate, Acetaminophen, Tricyclic Antidepressants and several therapeutic drugs may be individually assayed in serum or plasma specimen. Toxicology testing by the [facility] is an aid to medical diagnosis and treatment of patients. No documented chain of custody was maintained. Results are intended to be used for clinical purposes only. Timi Mills MD LAB - URINE GLOBAL COMMODITY MANAGER RY ORDERABLES [address] [address], [facility] [phone] * LIPID PROFILE (09/06/2023 1:46 AM [facility]) Cholesterol Total 144 <200 mg/dL 09/06/2023 3:28 AM [facility] HDL 42 >40 mg/dL 09/06/2023 3:28 AM [facility] Comment: ATP III Classification of HDL Cholesterol: <40 mg/dL: Considered a major risk factor. >60 mg/dL: Considered a negative risk factor. LDL Calculated 86 <100 mg/dL 09/06/2023 3:28 AM [facility] Comment: ATP III Classification of LDL Cholesterol: <100 mg/dL: Optimal 100 - 129 mg/dL: Near Optimal/Above Optimal 130 - 159 mg/dL: Borderline High 160 - 189 mg/dL: High >190 mg/dL: Very High Triglycerides 79 <150 mg/dL 09/06/2023 3:28 AM [facility] Comment: ATP III Classification of Triglycerides: <150 mg/dL: Normal 150 - 199 mg/dL: Borderline High 200 - 400 mg/dL: High >500 mg/dL: Very High Blood BLOOD SPECIMEN / Unknown Lab Venipuncture / Unknown 09/06/2023 1:46 AM ELECTRIC TRUCKER 09/06/2023 2:51 AM ELECTRIC TRUCKER Timi Mills MD LAB - CHEMISTRY ORD ERABLES [facility] [address] [place] [address], [facility] [phone] * GROSS + MICRO EXAM (10/14/1999 8:35 AM ELECTRIC TRUCKER) Only the most recent of2 resultswithin the [...] AND FOREIGN BODY GIANT CELL REACTION SR/KA [id number] X3 Released By LINDA VICENTE MISCELLANEOUS SAMPLES / Unknown 10/14/1999 8:35 AM ELECTRIC TRUCKER 10/14/1999 8:37 AM ELECTRIC TRUCKER Historical Provider LAB - PATHOLOGY/C YTOLOGY ORDERABLES Care Teams Packaging Specialist Relationship Specialty Start Date End Date Fernando Chavez MD [address] [place] [address] PCP - General Family Medicine 09/06/23
--- OUTSIDE RECORDS SUMMARY | 2024-10-06 00:10 | XMS_ITS | CONTINUITY OF CARE DOCUMENT ---
Author Name doyle kwon Address Unknown Organization [facility] Address [address] [place] [address] Phone [phone] Care Team Providers Care Grounds Keeper Name Role Phone Iglesia Osorio MD Unavailable DONTE PAT MD Unavailable [phone] DONTE PAT MD Unavailable [phone] INSURANCE PROVIDERS Payer name Policy type / Coverage type [place] red republican ID [employer] [id number]
--- OUTSIDE RECORDS SUMMARY | 2024-10-06 00:10 | XMS_ITS | Referral Summary ---
Author Organization [facility] Address [address] [place] [address] Care Team Providers Care Music Industry Internship Name Role Phone Fernando Chavez MD Primary Care Provider [phone] Source Comments [facility],non-owned Affiliates and Associated Physician Practices is amultiple site organization consisting of ambulatory clinics and hospital sitesin [place], [place], [place] and [place]. This disclosure is being madepursuant to the Care Everywhere program and may not contain all information available regarding this patient. Last updated 18.[facility] Allergies Active Allergy Reactions Criticality Noted Date [...] Respiratory Rate 10 10/18/2023 11:1 1 AM GRASSROOTS ORGANIZER Oxygen Saturation 98% 11/14/2023 3:18 PM CDT [...] Comments LIPID PROFILE Routine 09/06/2023 1:46 AM GRASSROOTS ORGANIZER from Last 3 Months or Most Recently Relevant to Health Maintenance Results * LIPID PROFILE (09/06/2023 1:46 AM GRASSROOTS ORGANIZER) [facility] Signature Cholesterol Total 144 <200 mg/dL 09/06/2023 3:28 AM [facility] HDL 42 >40 mg/dL 09/06/2023 3:28 AM [facility] Comment: ATP III Classification of HDL Cholesterol: <40 mg/dL: Considered a major risk factor. >60 mg/dL: Considered a negative risk factor. LDL Calculated 86 <100 mg/dL 09/06/2023 3:28 AM [facility] Comment: ATP III Classification of LDL Cholesterol: <100 mg/dL: Optimal 100 - 129 mg/dL: Near Optimal/Above Optimal 130 - 159 mg/dL: Borderline High 160 - 189 mg/dL: High >190 mg/dL: Very High Triglycerides 79 <150 mg/dL 09/06/2023 3:28 AM [facility] Comment: ATP III Classification of Triglycerides: <150 mg/dL: Normal 150 - 199 mg/dL: Borderline High 200 - 400 mg/dL: High >500 mg/dL: Very High Blood BLOOD SPECIMEN / Unknown Lab Venipuncture / Unknown 09/06/2023 1:46 AM GRASSROOTS ORGANIZER 09/06/2023 2:51 AM GR[employer]SROOTS ORGANIZER Timi Mills MD LAB - CHEMISTRY ORD ERABLES [facility] [address] [place] [address], [facility] [phone] from Last 3 Months or Most Recently Relevant to Health Maintenance Advance Directives Documents on File Type Date Recorded Patient Paving Stone Installer Expl anation Adv Directive/Living Will/POA 09/09/2023 12:24 PM * LIMITED RESUSCITATION-PRIOR AND AFTER ARREST (Latest Code Status on File) Date Activated Date Inactivated Comments 09/06/2023 1:33 AM 09/07/2023 6:35 PM Question Answer Comments Limited Resuscitation: No Intubation, No Invasiv e Ventilation Care Teams Music Industry Internship Relationship Specialty Start Date End Date Fernando Chavez MD [address] [place] [address] PCP - General Family Medicine 09/06/23
--- OUTSIDE RECORDS SUMMARY | 2024-10-06 00:10 | XMS_ITS | Referral Summary ---
Author Organization [facility] Address [address] [place] [address] Care Team Providers Care Rim Roller Setter Name Role Phone Fernando Chavez MD Primary Care Provider [phone] Allergies Active Allergy Reactions Criticality Noted Date [...] 07/02/2021 Assessment & Plan (07/02/2021 11:18 AM MANAGER LANDSCAPE): Pt's systolic blood pressure was noted to [...] metoprolol for now. Pt is contact her vice president of manufacturing tomorrow for further instructions. Fall 06/29/2021 Assessment & Plan (07/02/2021 11:10 AM MANAGER LANDSCAPE): Mechanical fall day prior to presentation with right hip pain. No prior history of hip pain. Xray of hip and knee were negative. Continue management with nonnarcotic meds. Home health referral made outpt. Assessment & Plan (07/01/2021 10:55 AM MANAGER LANDSCAPE): Mechanical fall day prior to presentation with right hip pain. No prior history of hip pain. Xray of hip and knee were negative. Continue management with nonnarcotic meds. PT consulted. Assessment & Plan (06/30/2021 11:54 AM MANAGER LANDSCAPE): Mechanical fall yesterday with right hip pain. No prior history of hip pain. Xray of hip and knee were negative. Continue management with nonnarcotic meds. PT consulted but pt refused to work with PT this morning. Assessment & Plan (06/29/2021 1:48 PM MANAGER LANDSCAPE): Mechanical fall yesterday with right hip pain. No prior history of hip pain. Xray of hip and knee were negative. Continue management with nonnarcotic meds. Acute hypoxemic respiratory failure 02/08/2021 Elevated troponin 01/14/2021 Atypical chest pain 01/14/2021 Assessment & Plan (07/02/2021 11:09 AM MANAGER LANDSCAPE): Troponins are negative. Continue to follow with vice president of manufacturing as outpatient. Assessment & Plan (07/01/2021 10:54 AM MANAGER LANDSCAPE): Troponins are negative. Continue to follow with vice president of manufacturing as outpatient. Assessment & Plan (06/30/2021 11:52 AM MANAGER LANDSCAPE): Troponins are negative. Continue to follow with vice president of manufacturing as outpatient. Assessment & Plan (06/29/2021 1:45 PM MANAGER LANDSCAPE): Troponins are negative. Continue to follow with vice president of manufacturing as outpatient. Hepatitis 01/14/2021 Tylenol overdose 01/14/2021 [...] (04/11/2020): Added automatically from request for surgery [id number] Assessment & Plan (07/02/2021 10:58 AM MANAGER LANDSCAPE): Please see constipation noted elsewhere. CT is otherwise unremarkable. Pt also has underlying chronic abdominal pain. Assessment & Plan (07/01/2021 10:53 AM MANAGER LANDSCAPE): Please see constipation noted elsewhere. CT is otherwise unremarkable. Pt also has underlying chronic abdominal pain. Assessment & Plan (06/30/2021 11:49 AM MANAGER LANDSCAPE): Please see constipation noted elsewhere. CT is otherwise unremarkable. Pt also has underlying chronic abdominal pain. Assessment & Plan (06/29/2021 1:48 PM MANAGER LANDSCAPE): Please see constipation noted elsewhere. CT is [...] NOS Assessment & Plan (07/02/2021 11:09 AM MANAGER LANDSCAPE): Continue home meds. Assessment & Plan (07/01/2021 10:53 AM MANAGER LANDSCAPE): Continue home meds. Assessment & Plan (06/30/2021 11:51 AM MANAGER LANDSCAPE): Continue home meds. Assessment & Plan (06/29/2021 1:46 PM MANAGER LANDSCAPE): Continue home meds. Assessment & Plan (04/23/2020 1:50 PM CDT): - home clonazepam 0.5mg BID Acute cerebrovascular insufficiency 12/26/2013 Overview (11/16/2016): AC CEREBROVASC INSUF NOS Constipation Assessment & Plan (07/02/2021 11:09 AM MANAGER LANDSCAPE): Pt's history and CT suggests this; no suggestion of bowel obstruction on CT. Continue bowel regimen and monitor for stools. Avoid narcotics; pt reports she is not on any narcotics at home. Mag citrate was tried per pt's request but this did not result in bm. She drank @ 2L of Golytely with good results. Assessment & Plan (07/01/2021 10:53 AM MANAGER LANDSCAPE): Pt's history and CT suggests this; no suggestion of bowel obstruction on CT. Continue bowel regimen and monitor for stools. Avoid narcotics; pt reports she is not on any narcotics at home. Mag citrate was tried yesterday per pt's request but this did not result in bm. She drank @ 2L of Golytely with good results. Assessment & Plan (06/30/2021 11:50 AM MANAGER LANDSCAPE): Pt's history and CT suggests this; no suggestion of bowel obstruction. Continue bowel regimen and monitor for stools. Avoid narcotics; pt reports she is not on any narcotics at home. Mag citrate was tried yesterday per pt's request but this did not result in bm. Plan is to place NG and give Golytely through this today. Assessment & Plan (06/29/2021 1:44 PM MANAGER LANDSCAPE): Pt's history and CT suggests this; no [...] often do you attend chur ch or yazdanism services? 1 to 4 times per year [...] file Legal Sex Female 5:42 AM MANAGER LANDSCAPE Gender Identity Not on file Sexual Orientation [...] Plan of Treatment Not on file Insurance [facility] MEDICARE HMO BLUE [facility] CHOICE OOS REPLACED BY [facility] [employer] CHOICE [employer] MEDICARE HMO Advance Directives For more information, please contact: [phone] * Full Code (Latest Code Status on [...] 4:23 PM 04/28/2020 8:27 PM Care Teams Rim Roller Setter Relationship Specialty Start Date End Date Fernando Chavez MD [address] [address] PCP - General Family Medicine 03/05/24
[2024-10-06 10:22] VITALS: BP 107/62; PULSE 118; RESP 17; TEMP 36.3; O2SAT 98; BMI 17.2
--- NOTE | 2024-10-06 10:33 | SUR.PREOP ---
When patient arrived to the GI department to get checked in for her EGD, social media community manager were offered to come and speak with her and give her some more resources for her situation at home. At this time the patient stated she did not want to speak with them right now and get worked up before her procedure. I mentioned that they would be able to speak with her after the procedure if that would make her feel any better. Patient stated she would still prefer to talk to them at a later date.
[2024-10-06] MEDS: LACTATED RINGERS 1,000 ML 150 ML IV CONT (10:51)
--- NOTE | 2024-10-06 11:02 | P.PNAN_ITS ---
Anes - Initial Pre Proc Eval Procedure: Operation Date: 10/06/24 11:30 Proposed Procedures p Esophagogastroduodenoscopy - Parveen Vazquez MD Date/Time: 10/06/24 11:02 Surgeon: Parveen Vazquez MD Pre Op Diagnosis: Dysphagia Patient Data Age: 58 Gender: F Height: 1.63 m Weight: 45.4 kg Last Vital Signs Temp 36.3 C L 10/06/24 10:22 Pulse 118 H 10/06/24 10:22 Resp 17 10/06/24 10:22 BP 107/62 10/06/24 10:22 Pulse Ox 98 10/06/24 10:22 O2 Del Method Room Air 10/06/24 10:22 Allergies Allergy/AdvReac Type Severity Reaction Status Date / Time adhesive tape Allergy Rash Verified 10/06/24 10:21 venlafaxine (From Effexor) AdvReac Intermediate Other Verified 10/06/24 10:21 bupropion (From Wellbutrin) AdvReac ALTERED Verified 10/06/24 10:21 MENTAL STATUS codeine AdvReac Itching Verified 10/06/24 10:21 diphenhydramine (From AdvReac Jittery Verified 10/06/24 10:21 Benadryl) duloxetine (From Cymbalta) AdvReac ALTERED Verified 10/06/24 10:21 MENTAL STATUS gabapentin AdvReac Confusion Verified 10/06/24 10:21 sertraline (From Zoloft) AdvReac Confusion Verified 10/06/24 10:21 Home Medications ?Medication ?Instructions ?Recorded ?Confirmed ?Type Centrum Silver Women 1 tab-cap PO DAILY 09/04/23 10/02/24 History clonazepam 0.5 mg tablet (Klonopin) 0.5 mg PO TID 09/04/23 10/06/24 History cyclobenzaprine 10 mg tablet 10 mg PO TID 09/04/23 10/02/24 History ondansetron 8 mg disintegrating 8 mg PO Q6H PRN Nausea And Vomiting 09/04/23 10/02/24 History tablet lactulose 10 gram/15 mL oral 10 g (15 mL) PO BID #237 mL 09/15/24 10/02/24 Rx solution aspirin 81 mg tablet,delayed 81 mg PO DAILY 09/16/24 10/02/24 History release (Adult Low Dose Aspirin) vitamin A 2,500 unit-vit C 100 1 cap PO DAILY 09/16/24 10/02/24 History mg-biotin 2,500 eff-kkfq-dzfkgr capsule (Ijvd-Uhyq-Jlqq (vit A,Q-ldxpkc-Kt-Cu)) vitamin E 268 mg (400 unit) capsule 268 mg PO DAILY 09/16/24 10/02/24 History dicyclomine 10 mg capsule 10 mg PO QID PRN abdominal pain 09/22/24 10/02/24 Rx #120 caps Patient hx anesthesia problems: none Family hx anesthesia problems: none Results Review: All pre-operative results and documents have been reviewed as part of the pre- operative evaluation. [facility] Past Medical History Medical History Stenosis of right carotid artery 40% stenosis Lower abdominal pain History of histoplasmosis History of stroke SLU Chronic pain Constipation Hypotension Bowel obstruction History of MRSA infection PONV (postoperative nausea and vomiting) Migraine Anxiety Endometriosis Osteoporosis Flank pain History of kidney stones Surgical History Surgical History History of pneumonectomy partial (left upper lobe) History of colostomy reversal History of colon resection History of hysterectomy History of abdominal surgery Family History Family History Unknown No problems noted. Mother Diabetes mellitus Heart disease Hypertension Mother No problems noted. Father Heart disease Hypertension Social History Social History Social History: Surrogate medical decision maker: Sarahy Fairchild, daughter. Code status: Full code. Smoking packs per day: 1 Smoking cigarettes per day: 20.0 Years smoked: 10 Smoking pack-years: 10.00 Smoking status: Former smoker Tobacco type: cigarettes Smoking end date: 09/16/11 Additional smoking assessment comments: Former smoker per chart. Belongings pt had 2 vapes. Pt intubated/sedated. Alcohol intake: current Drinks per week: 1 Alcohol use details: very rarely Substance use: current Substance use type: marijuana Other substance usage details: Vape THC on medical marijuana card. Last use: 09/04/23 Do You Feel Safe in your Home?: Yes Lack of Transportation: No Lack of Food: Never True Current Housing: I Have Housing Concerned About Future Housing: No Difficulty Paying Gas/Electric Bills: No Difficulty Paying for Meds: No Currently Unemployed: No Education: High School Diploma/GED Difficulty w/ Childcare or Family Care: No Living arrangements: alone Spiritual care concerns: No Anes - Eval Final PreProcedure Day of Procedure 10/06/24 11:02 Patient weight: normal Heart: regular rate and rhythm Lungs: clear to auscultation and normal air movement Airway: Mallampati scale class II Neurological: alert and oriented Last oral intake: >/= 8 hours ASA classification: III Emergent: no Anesthetic plan: proceed Anesthesia type and monitoring: general GIVS and standard monitoring Results Review: All pre-operative results and documents have been reviewed as part of the pre-operative evaluation. Informed Consent: The patient's anesthetic plan and its attendant risks and benefits were discussed with the patient/family/POA. Questions were solicited and answers provided to the satisfaction of the patient/family/POA.
--- NOTE | 2024-10-06 11:23 | PM.IMHP ---
H&P: HPI History of Present Illness Date/Time: 10/06/24 11:23 Chief Complaint: dysphagia Narrative: the patient has been suffering from reflux for a long time, because of lack of insurance she could not afford to buy any anti reflux medication and has been getting worse. Over the past 2 months she has experienced dysphagia to solids and liquids. In addition, the patient has a history of partial colectomy for endometriosis several years ago, and has undergone multiple laparotomies for lysis of adhesions. Review of Systems Review of Systems: All systems reviewed & are unremarkable except as noted in HPI and below PMFSH Past Medical History Medical History Stenosis of right carotid artery 40% stenosis Lower abdominal pain History of histoplasmosis History of stroke SLU Chronic pain Constipation Hypotension Bowel obstruction History of MRSA infection PONV (postoperative nausea and vomiting) Migraine Anxiety Endometriosis Osteoporosis Flank pain History of kidney stones Surgical History Surgical History History of pneumonectomy partial (left upper lobe) History of colostomy reversal History of colon resection History of hysterectomy History of abdominal surgery Family History Family History Unknown No problems noted. Mother Diabetes mellitus Heart disease Hypertension Mother No problems noted. Father Heart disease Hypertension Social History Social History Social History: Surrogate medical decision maker: Sarahy Fairchild, daughter. Code status: Full code. Smoking packs per day: 1 Smoking cigarettes per day: 20.0 Years smoked: 10 Smoking pack-years: 10.00 Smoking status: Former smoker Tobacco type: cigarettes Smoking end date: 09/16/11 Additional smoking assessment comments: Former smoker per chart. Belongings pt had 2 vapes. Pt intubated/sedated. Alcohol intake: current Drinks per week: 1 Alcohol use details: very rarely Substance use: current Substance use type: marijuana Other substance usage details: Vape THC on medical marijuana card. Last use: 09/04/23 Do You Feel Safe in your Home?: Yes Lack of Transportation: No Lack of Food: Never True Current Housing: I Have Housing Concerned About Future Housing: No Difficulty Paying Gas/Electric Bills: No Difficulty Paying for Meds: No Currently Unemployed: No Education: High School Diploma/GED Difficulty w/ Childcare or Family Care: No Living arrangements: alone Spiritual care concerns: No Meds Home Medications and Allergies Home Medications ?Medication ?Instructions ?Recorded ?Confirmed ?Type Centrum Silver Women 1 tab-cap PO DAILY 09/04/23 10/02/24 History clonazepam 0.5 mg tablet (Klonopin) 0.5 mg PO TID 09/04/23 10/06/24 History cyclobenzaprine 10 mg tablet 10 mg PO TID 09/04/23 10/02/24 History ondansetron 8 mg disintegrating 8 mg PO Q6H PRN Nausea And Vomiting 09/04/23 10/02/24 History tablet lactulose 10 gram/15 mL oral 10 g (15 mL) PO BID #237 mL 09/15/24 10/02/24 Rx solution aspirin 81 mg tablet,delayed 81 mg PO DAILY 09/16/24 10/02/24 History release (Adult Low Dose Aspirin) vitamin A 2,500 unit-vit C 100 1 cap PO DAILY 09/16/24 10/02/24 History mg-biotin 2,500 out-ymap-uxftag capsule (Tqch-Ocxo-Voxa (vit A,V-rjtoxa-Tp-Cu)) vitamin E 268 mg (400 unit) capsule 268 mg PO DAILY 09/16/24 10/02/24 History dicyclomine 10 mg capsule 10 mg PO QID PRN abdominal pain 09/22/24 10/02/24 Rx #120 caps Allergies Allergy/AdvReac Type Severity Reaction Status Date / Time adhesive tape Allergy Rash Verified 10/06/24 10:21 venlafaxine (From Effexor) AdvReac Intermediate Other Verified 10/06/24 10:21 bupropion (From Wellbutrin) AdvReac ALTERED Verified 10/06/24 10:21 MENTAL STATUS codeine AdvReac Itching Verified 10/06/24 10:21 diphenhydramine (From AdvReac Jittery Verified 10/06/24 10:21 Benadryl) duloxetine (From Cymbalta) AdvReac ALTERED Verified 10/06/24 10:21 MENTAL STATUS gabapentin AdvReac Confusion Verified 10/06/24 10:21 sertraline (From Zoloft) AdvReac Confusion Verified 10/06/24 10:21 Vital Signs Vital Signs - 24 hr 10/06/24 10:22 Temperature 97.4 F L Pulse Rate 118 H Respiratory Rate 17 Blood Pressure 107/62 Pulse Oximetry 98 Oxygen Delivery Room Air Exam Const: General: cooperative and healthy appearing Resp: Effort & Inspection: normal respiratory effort and able to speak in complete sentences Auscultation: clear to auscultation bilaterally Cardio: Rate: regular rate Rhythm: regular rhythm GI: Inspection: normal to inspection GI Palp: No No hepatosplenomegaly present Auscultation: normal bowel sounds Rectal Exam: deferred Skin: General skin exam: normal color Psych: Appearance: grossly normal Mental Status: mental status grossly normal Assessment and Plan Assessment and plan (1) Dysphagia: Code(s): R13.10 - Dysphagia, unspecified Status: Acute Assessment and Plan: The patient is deemed a good candidate for the procedure. Consent signed. Will proceed.
[2024-10-06 11:45] VITALS: BP 105/54; PULSE 89; RESP 20; O2SAT 99
[2024-10-06 11:55] VITALS: BP 105/60; PULSE 81; RESP 20; O2SAT 100
[2024-10-06 12:05] VITALS: BP 128/79; PULSE 94; RESP 20; O2SAT 100
--- NOTE | 2024-10-06 12:44 | SUR.PHASEII ---
Discharge delay due to ride conflict. Offered patient social media executive again and pt declined. Patient stated she believes this was a one time occurrence and she feels safe being discharged.
== END 2024-10-06 12:53 | disposition home or self-care (01) ==
PROVIDERS: PCP Family Medicine; Referring Provider Nurse Practitioner; Visit Provider Internal Medicine Gastroenterology
PROC: 0DJ08ZZ Inspection of Upper Intestinal Tract, Via Natural or Artificial Opening Endoscopic (ICD-10-PCS; CPT 43239; principal; 2024-10-06 11:30)
DX: K25.7 Chronic gastric ulcer without hemorrhage or perforation (principal); K29.50 Unspecified chronic gastritis without bleeding; B37.81 Candidal esophagitis; Z87.891 Personal history of nicotine dependence; F12.90 Cannabis use, unspecified, uncomplicated
CPT/HCPCS: 43239; 88305; 88312; J2003; J2704; J7120

== ENCOUNTER 2025-03-11 01:08 | Inpatient (IN) | payer MEDICARE, SELFPAY ==
[2025-03-11] VITALS (65 sets, daily range): BP systolic 123–162; BP diastolic 51–119; PULSE 53–103; RESP 11–31; TEMP 36.6–37; O2SAT 96–100; BMI 18.1
--- NOTE | ~2025-03-11 | CT_ITS ---
EXAMINATION: CTA chest PE protocol DATE: 03/11/2025 06:30 CDT INDICATION: Chest pain. Dyspnea with exertion. TECHNIQUE: Computed tomographic angiography (CTA) of the chest was performed with 100 mL Omnipaque-35 0 intravenous contrast. The dose-length product was 158.24 mGy-cm. Maximum intensity projection 3D-re constructions of the aorta and other arteries were constructed by the technologist on a separate work station. COMPARISON: CT dated 12/21/2023. FINDINGS: No significant pleural or pericardial effusion. Heart size normal. There is atherosclerosis of the aorta without aneurysm. Study is technically adequate without evidence for pulmonary embolism . There is apical scarring bilaterally. No endobronchial lesions. Small 3 mm nodule in the lingula. T here is bilateral lower lobe atelectasis. No evidence for aortic dissection. Mild atherosclerosis. Th ere are nonobstructing left renal stones. Multiple chronic left rib fractures. No acute osseous abnor mality identified. Mild levocurvature of the thoracic spine. IMPRESSION: 1. No acute cardiopulmonary disease. No evidence for pulmonary embolism. 2: Lingular nodule measuring 3 mm, likely benign. Consider follow-up low dose CT chest in 12 months. 3: Nonobstructing left nephrolithiasis. Reviewed, dictated and finalized at location B. IMPRESSION: 1. No acute cardiopulmonary disease. No evidence for pulmonary embolism. 2: Lingular nodule measuring 3 mm, likely benign. Consider follow-up low dose C T chest in 12 months. 3: Nonobstructing left nephrolithiasis.
--- OUTSIDE RECORDS SUMMARY | 2025-03-11 01:11 | XMS_ITS | Referral Summary ---
Author Organization [facility] Address [address] [place] [address] Care Team Providers Care Iso Coordinator Name Role Phone Fernando Chavez MD Primary Care Provider [phone] Allergies Active Allergy Reactions Criticality Noted Date [...] 07/02/2021 Assessment & Plan (07/02/2021 11:18 AM ROASTER OPERATOR): Pt's systolic blood pressure was noted to [...] for now. Pt is contact her job change crew member tomorrow for further instructions. Fall 06/29/2021 Assessment & Plan (07/02/2021 11:10 AM ROASTER OPERATOR): Mechanical fall day prior to presentation with right hip pain. No prior history of hip pain. Xray of hip and knee were negative. Continue management with nonnarcotic meds. Home health referral made outpt. Assessment & Plan (07/01/2021 10:55 AM ROASTER OPERATOR): Mechanical fall day prior to presentation with right hip pain. No prior history of hip pain. Xray of hip and knee were negative. Continue management with nonnarcotic meds. PT consulted. Assessment & Plan (06/30/2021 11:54 AM ROASTER OPERATOR): Mechanical fall yesterday with right hip pain. No prior history of hip pain. Xray of hip and knee were negative. Continue management with nonnarcotic meds. PT consulted but pt refused to work with PT this morning. Assessment & Plan (06/29/2021 1:48 PM ROASTER OPERATOR): Mechanical fall yesterday with right hip pain. No prior history of hip pain. Xray of hip and knee were negative. Continue management with nonnarcotic meds. Acute hypoxemic respiratory failure 02/08/2021 Elevated troponin 01/14/2021 Atypical chest pain 01/14/2021 Assessment & Plan (07/02/2021 11:09 AM ROASTER OPERATOR): Troponins are negative. Continue to follow with job change crew member as outpatient. Assessment & Plan (07/01/2021 10:54 AM ROASTER OPERATOR): Troponins are negative. Continue to follow with job change crew member as outpatient. Assessment & Plan (06/30/2021 11:52 AM ROASTER OPERATOR): Troponins are negative. Continue to follow with job change crew member as outpatient. Assessment & Plan (06/29/2021 1:45 PM ROASTER OPERATOR): Troponins are negative. Continue to follow with job change crew member as outpatient. Hepatitis 01/14/2021 Tylenol overdose 01/14/2021 JHOANA (acute kidney injury) 01/14/2021 NSAID overdose 01/14/2021 Bandemia 01/14/2021 High anion gap metabolic acidosis 01/14/2021 Hypokalemia 01/14/2021 Right lower quadrant abdominal pain 01/14/2021 Suicidal ideation 01/14/2021 Frailty 01/14/2021 Severe protein-calorie malnutrition 01/14/2021 Infected prosthetic mesh of abdominal wall 04/23 Assessment & Plan (04/28/2020 11:58 AM CDT): [...] (04/11/2020): Added automatically from request for surgery [id number] Assessment & Plan (07/02/2021 10:58 AM ROASTER OPERATOR): Please see constipation noted elsewhere. CT is otherwise unremarkable. Pt also has underlying chronic abdominal pain. Assessment & Plan (07/01/2021 10:53 AM ROASTER OPERATOR): Please see constipation noted elsewhere. CT is otherwise unremarkable. Pt also has underlying chronic abdominal pain. Assessment & Plan (06/30/2021 11:49 AM ROASTER OPERATOR): Please see constipation noted elsewhere. CT is otherwise unremarkable. Pt also has underlying chronic abdominal pain. Assessment & Plan (06/29/2021 1:48 PM ROASTER OPERATOR): Please see constipation noted elsewhere. CT is [...] NOS Assessment & Plan (07/02/2021 11:09 AM ROASTER OPERATOR): Continue home meds. Assessment & Plan (07/01/2021 10:53 AM ROASTER OPERATOR): Continue home meds. Assessment & Plan (06/30/2021 11:51 AM ROASTER OPERATOR): Continue home meds. Assessment & Plan (06/29/2021 1:46 PM ROASTER OPERATOR): Continue home meds. Assessment & Plan (04/23/2020 1:50 PM CDT): - home clonazepam 0.5mg BID Acute cerebrovascular insufficiency 12/26/2013 Overview (11/16/2016): AC CEREBROVASC INSUF NOS Constipation Assessment & Plan (07/02/2021 11:09 AM ROASTER OPERATOR): Pt's history and CT suggests this; no suggestion of bowel obstruction on CT. Continue bowel regimen and monitor for stools. Avoid narcotics; pt reports she is not on any narcotics at home. Mag citrate was tried per pt's request but this did not result in bm. She drank @ 2L of Golytely with good results. Assessment & Plan (07/01/2021 10:53 AM ROASTER OPERATOR): Pt's history and CT suggests this; no suggestion of bowel obstruction on CT. Continue bowel regimen and monitor for stools. Avoid narcotics; pt reports she is not on any narcotics at home. Mag citrate was tried yesterday per pt's request but this did not result in bm. She drank @ 2L of Golytely with good results. Assessment & Plan (06/30/2021 11:50 AM ROASTER OPERATOR): Pt's history and CT suggests this; no suggestion of bowel obstruction. Continue bowel regimen and monitor for stools. Avoid narcotics; pt reports she is not on any narcotics at home. Mag citrate was tried yesterday per pt's request but this did not result in bm. Plan is to place NG and give Golytely through this today. Assessment & Plan (06/29/2021 1:44 PM ROASTER OPERATOR): Pt's history and CT suggests this; no [...] often do you attend chur ch or jew services? 1 to 4 times per year 02/09/2021 Do you belong to any clubs o r organizations such as sabianist groups, unions, fraternal or athletic groups, or [...] on file Legal Sex Female 5:42 AM ROASTER OPERATOR Gender Identity Not on file Sexual [...] 11:15 AM CDT Height 162.6 cm (5' 4) 03/25/2024 11:15 AM CDT Body Mass Index 17.35 03/25/2024 11:15 AM CDT Plan of Treatment Not on file Insurance HUMANA MEDICARE HMO [facility] [place] [address] [employer] (formerly [employer] HUMANA MEDICARE HMO Advance Directives For more information, please contact: [phone] * Full Code (Latest Code Status on [...] 4:23 PM 04/28/2020 8:27 PM Care Teams Iso Coordinator Relationship Specialty Start Date End Date Fernando Chavez MD [address] [place] [address] [id number] PCP - General Family Medicine 03/05/24
--- OUTSIDE RECORDS SUMMARY | 2025-03-11 01:11 | XMS_ITS | Patient Health Record ---
Author Organization [facility] Address [address] [place] [address] Care Team Providers Care Soap Slabber Name Role Phone Yayo Knight Primary Care Provider Shai Singleton Unavailable [phone] Allergies Allergen (clinical drug ingredient) Drug/Non Drug Allergy documented on EMR Reaction Allergy Type Onset Date Status diphenhydramine Benadryl Unknown Drug Allergy A ctive Effexor Unknown Drug Allergy Active Wellbutrin Unknown Drug Allergy Active sertraline Zoloft Unknown Drug Allergy Active codeine Codeine Unknown Drug Allergy Active gabapentin Gabapentin Unknown Drug Allergy Activ e tamsulosin Tamsulosin Unknown Drug Allergy Activ e Reason For Referral No Information Medications Medication SIG (Take, Route, Frequency, Duration) Notes Start Date End Date Status Vitamin B-12 1000 MCG Oral Active Neomycin Sulfate 500 mg Oral Active Dicyclomine HCl 10 MG Oral Active Levocetirizine Dihydrochloride 5 MG Oral Active Rizatriptan Benzoate 10 MG Oral Active Fluticasone Propionate Diskus 50 MCG/ACT Inhalation *Reorder from [facility] for eRx and Interaction Alerts* Active Ondansetron HCl 4 MG Oral Active Orphenadrine Citrate ER 100 MG Oral Active oxyCODONE HCl 5 MG Oral A ctive clonazePAM 1 MG Oral Acti ve Nitrofurantoin Monohyd Macro 100 MG Oral Active Azithromycin 250 MG Oral Active Ondansetron HCl 8 MG Oral Active Ergocalciferol 1.25 MG (64326 UT) Oral Active Meloxicam 7.5 MG Oral Act sam Bisacodyl EC 5 MG Oral Ac tive Sulfamethoxazole-Trimetho prim 800-160 MG Oral Active Ferrous Sulfate 325 (65 Fe) MG Oral Active Venlafaxine HCl ER 150 MG Oral Active Atorvastatin Calcium 10 MG Oral Active traMADol HCl 50 MG Oral A ctive Pantoprazole Sodium 40 MG Oral Active CALCIUM CARBONATE 600 MG-VITAMIN D3 10 MCG (400 UNIT) TABLET *Reorder from [facility] for eRx and Interaction Alerts* Active Xarelto 20 MG Oral Active Folic Acid 1 MG Oral Acti ve Sertraline HCl 50 MG Oral Active Cyclobenzaprine HCl 10 MG Oral Active Cephalexin 500 MG Oral Ac tive Alendronate Sodium 70 MG Oral Active traZODone HCl 150 MG Oral Active Prochlorperazine Maleate 10 MG Oral Active Venlafaxine HCl ER 75 MG Oral Active LORazepam 0.5 MG Oral Act sam Docusate Sodium 100 MG Oral Active Fluconazole 150 MG Oral A ctive metroNIDAZOLE 500 MG Oral Active Ubrelvy 100 MG Oral *Reorder from [facility] for eRx and Interaction Alerts* Active Sertraline HCl 100 MG Oral Active Ondansetron 4 MG Oral Act sam Atorvastatin Calcium 20 MG Oral Active SUMAtriptan Succinate 100 MG Oral Active Tamsulosin HCl 0.4 MG Oral Active Chlorhexidine Gluconate 0.12% Mouth/Throat Active methylPREDNISolone 4 MG Oral Active HYDROcodone-Acetaminophen 5-325 MG Oral Active Social History Sex Assigned At : Social History Observation Description Sex Assigned At Female Encounters Encounter Location Date Provider Diagnosis [place] [id number] [facility] [address] [facility] [address] [place] [address] 12/22/2024 Shai Smith Plan Of Treatment Next Appt Details Provider Name:Shai Smith , 03/15/2025 09:00:00 AM, [facility], [facility] [address], [place], [address], Insurance Providers Payer Name Payer Address Payer Phone Subscriber Number Group Number Insured Name Patient Relationship to Insured Coverage Start Date Coverage End Date [facility] [address] [place] [address] [id number] ISAAC MALAVE Self - patient is the insured
--- OUTSIDE RECORDS SUMMARY | 2025-03-11 01:11 | XMS_ITS | Clinical Summary ---
Author Organization [facility] Address [address] [place] [address] Care Team Providers Care Bung Dropper Name Role Phone Fernando Chavez MD Primary Care Provider Source Comments [facility],non-owned Affiliates and Associated Physician Practices is amultiple site organization consisting of ambulatory clinics and hospital sitesin [place], [place], [place] and [place]. This disclosure is being madepursuant to the Care Everywhere program and may not contain all information available regarding this patient. Last updated 18.[employer] [facility] Allergies Active Allergy Reactions Criticality Noted Date Comments Bupropion Unknown 09/06/2023 Codeine Itching 09/06/2023 Diphenhydramine Unknown 09/06/2023 Duloxetine Other 09/06/2023 Altered mentation Gabapentin Other 09/06/2023 confusion Paroxetine Other Low 04/19/2020 Sertraline Other 09/06/2023 confusion Skin Adhesives Skin Reactions 09/27/2023 Medications * This document contains information received from the source organization and may not represent a complete record from that organization. * Be aware that medications may not be up to date on this document. Alwaysverify current medications with the patient. ondansetron (Zofran) 8 MG tablet Take 1 (one) tablet by mouth every 6 hours as needed for Nausea/Vomiti ng Active traZODone (Desyrel) 100 MG tablet Take [...] Recorded Patient Health Questionnaire-2 Score 0 09/26/2023 Comments No Sex and Gender Information Value Date Recorded Sex Assigned at Not on file Legal Sex Female 6:00 AM ATHLETE MARKETING AGENT Gender Identity Not on file Sexual Orientation Not on file Last Filed Vital Signs Vital Sign Reading Time Taken Comments Blood Pressure 134/81 11/14/2023 3:18 PM CDT Pulse 112 11/14/2023 3:18 PM CDT Temperature 36.1 C (97 F) 11/14/2023 3:18 PM CDT Respiratory Rate 10 10/18/2023 11:1 1 AM ATHLETE MARKETING AGENT Oxygen Saturation 98% 11/14/2023 3:18 PM CDT Inhaled Oxygen Concentration - - Weight 51.6 kg (113 lb 12.8 oz) 11/14/2023 3:18 PM CDT Height 162.6 cm (5' 4) 11/14/2023 3:18 PM CDT Body Mass Index [...] FLEX SIG - COLON CA SCREENING 1965 HIV SCREENING 1980 HEPATITIS C SCREENING 11/30/1983 DTAP/TDAP/TD VACCINES (1 - Tdap) 1984 HEPATITIS B VACCINE (1 of 3 - 19+ 3-dose series) 1984 PAP SMEAR 1986 PNEUMOCOCCAL VACCINE 50+ (1 of 1 - PCV) 12/05/2015 ZOSTER VACCINE (1 of 2) 12/05/2015 MAMMOGRAM 07/07/2016 07/07/2014 COVID-19 VACCINE ( - 2023-2 5 season) 2024 DEPRESSION SCREENING 08/12/2024 09/04/2023 MEDICARE AWV CALENDAR YEAR 2024 INFLUENZA VACCINE (#1) 2025 05/25/2008 LIPID TESTING 09/06/2028 09/06/2023 HIB VACCINE Aged Out No longer eligi ble based on patient's age to complete this topic HPV VACCINE Aged Out No longer eligi ble based on patient's age to complete this topic MENINGOCOCCAL (Group B) VACC INE SHARED DECISION-MAKING Aged Out No longer eligibl e based on patient's age to complete this topic MENINGOCOCCAL GROUPS A/C/Y/W VACCINE Aged Out No longer eligible b ased on patient's age to complete this topic Procedures Procedure Name Priority Date/Time Associated Diagnosis Comments LIPID PROFILE Routine 09/06/2023 1:46 AM ATHLETE MARKETING AGENT from Last 3 Months or Most Recently Relevant to Health Maintenance Results * LIPID PROFILE (09/06/2023 1:46 AM [facility]) Cholesterol Total 144 <200 mg/dL 09/06/2023 3:28 AM [facility] HDL 42 >40 mg/dL 09/06/2023 3:28 AM [facility] Comment: ATP III Classification of HDL Cholesterol: <40 mg/dL: Considered a major risk factor. >60 mg/dL: Considered a negative risk factor. LDL Calculated 86 <100 mg/dL 09/06/2023 3:28 AM [facility] Comment: ATP III Classification of LDL Cholesterol: <100 mg/dL: Optimal 100 - 129 mg/dL: Near Optimal/Above Optimal 130 - 159 mg/dL: Borderline High 160 - 189 mg/dL: High >190 mg/dL: Very High Triglycerides 79 <150 mg/dL 09/06/2023 3:28 AM [facility] Comment: ATP III Classification of Triglycerides: <150 mg/dL: Normal 150 - 199 mg/dL: Borderline High 200 - 400 mg/dL: High >500 mg/dL: Very High Blood BLOOD SPECIMEN / Unknown Lab Venipuncture / Unknown 09/06/2023 1:46 AM ATHLETE MARKETING AGENT 09/06/2023 2:51 AM [facility] us Timi Mills MD LAB - CHEMISTRY ORDERABLES Final Result [facility] [address] [place] [address], [facility] [phone] from Last 3 Months or Most Recently Relevant to Health Maintenance Insurance HUMANA MEDICARE ADV HMO & PPO HUMANA MEDICAID [place] SELF PAY NO INSURANCE Member Subscriber Plan / Payer (Ef fective for All Dates) Name:Madison Weinberg Member ID:Not on file Relation to Subscriber:Not on file Name:MADISON WEINBERG Subscriber ID:Not on file (Home) Address: [address] [place] [id number] Payer ID:Not on file Group ID:Not on file Type:Self Pay Address: [place], [place] MED[place]ID [place] Advance Directives Documents on File Type Date Recorded Patient Raking Machine Operator Expl anation Adv Directive/Living Will/POA 09/09/2023 12:24 PM * LIMITED RESUSCITATION-PRIOR AND AFTER ARREST (Latest Code Status on File) Date Activated Date Inactivated Comments 09/06/2023 1:33 AM 09/07/2023 6:35 PM Question Answer Comments Limited Resuscitation: No Intubation, No Invasiv e Ventilation Care Teams Bung Dropper Relationship Specialty Start Date End Date Fernando Chavez MD [address] [place] [address] PCP - General Family Medicine 09/06/23
--- OUTSIDE RECORDS SUMMARY | 2025-03-11 01:11 | XMS_ITS | Clinical Summary ---
Author Organization [facility] Address [address] [place] [address] Care Team Providers Care Commercial Green Building Designer Name Role Phone Fernando Chavez MD Primary Care Provider [phone] Allergies Active Allergy Reactions Criticality Noted Date [...] 07/02/2021 Assessment & Plan (07/02/2021 11:18 AM LANDFILL GAS COLLECTION OPERATOR): Pt's systolic blood pressure was noted [...] metoprolol for now. Pt is contact her superintendent tests tomorrow for further instructions. Fall 06/29/2021 Assessment & Plan (07/02/2021 11:10 AM LANDFILL GAS COLLECTION OPERATOR): Mechanical fall day prior to presentation with right hip pain. No prior history of hip pain. Xray of hip and knee were negative. Continue management with nonnarcotic meds. Home health referral made outpt. Assessment & Plan (07/01/2021 10:55 AM LANDFILL GAS COLLECTION OPERATOR): Mechanical fall day prior to presentation with right hip pain. No prior history of hip pain. Xray of hip and knee were negative. Continue management with nonnarcotic meds. PT consulted. Assessment & Plan (06/30/2021 11:54 AM LANDFILL GAS COLLECTION OPERATOR): Mechanical fall yesterday with right hip pain. No prior history of hip pain. Xray of hip and knee were negative. Continue management with nonnarcotic meds. PT consulted but pt refused to work with PT this morning. Assessment & Plan (06/29/2021 1:48 PM LANDFILL GAS COLLECTION OPERATOR): Mechanical fall yesterday with right hip pain. No prior history of hip pain. Xray of hip and knee were negative. Continue management with nonnarcotic meds. Acute hypoxemic respiratory failure 02/08/2021 Elevated troponin 01/14/2021 Atypical chest pain 01/14/2021 Assessment & Plan (07/02/2021 11:09 AM LANDFILL GAS COLLECTION OPERATOR): Troponins are negative. Continue to follow with superintendent tests as outpatient. Assessment & Plan (07/01/2021 10:54 AM LANDFILL GAS COLLECTION OPERATOR): Troponins are negative. Continue to follow with superintendent tests as outpatient. Assessment & Plan (06/30/2021 11:52 AM LANDFILL GAS COLLECTION OPERATOR): Troponins are negative. Continue to follow with superintendent tests as outpatient. Assessment & Plan (06/29/2021 1:45 PM LANDFILL GAS COLLECTION OPERATOR): Troponins are negative. Continue to follow with superintendent tests as outpatient. Hepatitis 01/14/2021 Tylenol overdose 01/14/2021 [...] (04/11/2020): Added automatically from request for surgery [id number] Assessment & Plan (07/02/2021 10:58 AM LANDFILL GAS COLLECTION OPERATOR): Please see constipation noted elsewhere. CT is otherwise unremarkable. Pt also has underlying chronic abdominal pain. Assessment & Plan (07/01/2021 10:53 AM LANDFILL GAS COLLECTION OPERATOR): Please see constipation noted elsewhere. CT is otherwise unremarkable. Pt also has underlying chronic abdominal pain. Assessment & Plan (06/30/2021 11:49 AM LANDFILL GAS COLLECTION OPERATOR): Please see constipation noted elsewhere. CT is otherwise unremarkable. Pt also has underlying chronic abdominal pain. Assessment & Plan (06/29/2021 1:48 PM LANDFILL GAS COLLECTION OPERATOR): Please see constipation noted elsewhere. CT [...] NOS Assessment & Plan (07/02/2021 11:09 AM LANDFILL GAS COLLECTION OPERATOR): Continue home meds. Assessment & Plan (07/01/2021 10:53 AM LANDFILL GAS COLLECTION OPERATOR): Continue home meds. Assessment & Plan (06/30/2021 11:51 AM LANDFILL GAS COLLECTION OPERATOR): Continue home meds. Assessment & Plan (06/29/2021 1:46 PM LANDFILL GAS COLLECTION OPERATOR): Continue home meds. Assessment & Plan (04/23/2020 1:50 PM CDT): - home clonazepam 0.5mg BID Acute cerebrovascular insufficiency 12/26/2013 Overview (11/16/2016): AC CEREBROVASC INSUF NOS Constipation Assessment & Plan (07/02/2021 11:09 AM LANDFILL GAS COLLECTION OPERATOR): Pt's history and CT suggests this; no suggestion of bowel obstruction on CT. Continue bowel regimen and monitor for stools. Avoid narcotics; pt reports she is not on any narcotics at home. Mag citrate was tried per pt's request but this did not result in bm. She drank @ 2L of Golytely with good results. Assessment & Plan (07/01/2021 10:53 AM LANDFILL GAS COLLECTION OPERATOR): Pt's history and CT suggests this; no suggestion of bowel obstruction on CT. Continue bowel regimen and monitor for stools. Avoid narcotics; pt reports she is not on any narcotics at home. Mag citrate was tried yesterday per pt's request but this did not result in bm. She drank @ 2L of Golytely with good results. Assessment & Plan (06/30/2021 11:50 AM LANDFILL GAS COLLECTION OPERATOR): Pt's history and CT suggests this; no suggestion of bowel obstruction. Continue bowel regimen and monitor for stools. Avoid narcotics; pt reports she is not on any narcotics at home. Mag citrate was tried yesterday per pt's request but this did not result in bm. Plan is to place NG and give Golytely through this today. Assessment & Plan (06/29/2021 1:44 PM LANDFILL GAS COLLECTION OPERATOR): Pt's history and CT suggests this; [...] Comments Anxiety disorder DVT (deep venous thrombosis) (HCC) 11/2018 Anemia Endometriosis Endometriosis-21 times Trigeminal neuralgia Colon obstruction (HCC) PONV (postoperative nausea and vomiting) IV medications [...] week 02/09/2021 How often do you attend [facility] or [facility]? 1 to 4 times per year 02/09/2021 Do you belong to any clubs o r organizations such as druze groups, unions, fraternal or athletic groups, or [...] on file Legal Sex Female 5:42 AM LANDFILL GAS COLLECTION OPERATOR Gender Identity Not on file Sexual [...] PCV) 08/06/2020 1 10/07/2018 Influenza Vaccine (#1) 2025 05/25/2008 DTaP/Tdap/Td Vaccine (2 - Td or Tdap) 07/20/202904/2019 Insurance [facility] MEDICARE HMO [facility] CHOICE OOS [facility] [employer] CHOICE [employer] MEDICARE HMO Advance Directives For more information, please contact: [phone] * Full Code (Latest Code Status on [...] 4:23 PM 04/28/2020 8:27 PM Care Teams Commercial Green Building Designer Relationship Specialty Start Date End Date Fernando Chavez MD [address] [address] PCP - General Family Medicine 03/05/24
--- NOTE | 2025-03-11 01:18 | ECG_ITS ---
Test Date: 2025-03-11 01:27:03 Measurements Intervals [place] Rate: 88 P: 61 [place]: 145 QRS: 78 QRSD: 78 T: 70 QT: 389 QTc: 471 Interpretive Statements SINUS RHYTHM WITH FREQUENT SUPRAVENTRICULAR PREMATURE COMPLEXES NONSPECIFIC ST- T-WAVE CHANGES ABNORMAL RHYTHM ECG Compared to ECG 06/25/2024 16:12:45 No significant changes Electronically Signed On 03-11-2025 11:08:31 CDT by Dawit Wang M.D.
--- NOTE | 2025-03-11 01:31 | ED_ITS ---
HPI - General Adult General Chief complaint: Chest Pain Stated complaint: pain to upper chest Time Seen by Provider: 03/11/25 01:12 History of Present Illness HPI narrative: This is a 59-year-old female with his extensive medical history presenting for chest pain. Chest pain started 3 hours prior to arrival. She described as an achy pain in the left side of her chest with heaviness and numbness in her left arm. Started while she was on a walk although she exercises daily and has not had any exercise intolerance before today. She denies any recent illness, immobilization or surgeries. 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 She denies fevers abdominal pain nausea vomiting or diarrhea. Related Data Home Medications ?Medication ?Instructions ?Recorded ?Confirmed ?Last Taken ?Type Centrum Silver Women 1 tab-cap PO DAILY 09/04/23 10/18/24 09/20/24 History clonazepam 0.5 mg tablet (Klonopin) 0.5 mg PO TID 09/04/23 10/18/24 10/06/24 History cyclobenzaprine 10 mg tablet 10 mg PO TID 09/04/23 10/18/24 09/22/24 History ondansetron 8 mg disintegrating 8 mg PO Q6H PRN Nausea And Vomiting 09/04/23 10/18/24 05/19/24 History tablet aspirin 81 mg tablet,delayed 81 mg PO DAILY 09/16/24 10/18/24 09/22/24 History release (Adult Low Dose Aspirin) vitamin A 2,500 unit-vit C 100 1 cap PO DAILY 09/16/24 10/18/24 09/20/24 History mg-biotin 2,500 vak-rwyl-icagfm capsule (Hqvk-Jiwj-Cvya (vit A,J-ebzfvw-We-Cu)) vitamin E 268 mg (400 unit) capsule 268 mg PO DAILY 09/16/24 10/18/24 09/20/24 History Allergies Allergy/AdvReac Type Severity Reaction Status Date / Time adhesive tape Allergy Rash Verified 03/11/25 01:19 venlafaxine (From Effexor) AdvReac Intermediate Other Verified 03/11/25 01:19 bupropion (From Wellbutrin) AdvReac ALTERED Verified 03/11/25 01:19 MENTAL STATUS codeine AdvReac Itching Verified 03/11/25 01:19 diphenhydramine (From AdvReac Jittery Verified 03/11/25 01:19 Benadryl) duloxetine (From Cymbalta) AdvReac ALTERED Verified 03/11/25 01:19 MENTAL STATUS gabapentin AdvReac Confusion Verified 03/11/25 01:19 sertraline (From Zoloft) AdvReac Confusion Verified 03/11/25 01:19 PMFSH Past Medical History Medical History Stenosis of right carotid artery 40% stenosis Lower abdominal pain History of histoplasmosis History of stroke SLU Chronic pain Constipation Hypotension Bowel obstruction History of MRSA infection PONV (postoperative nausea and vomiting) Migraine Anxiety Endometriosis Osteoporosis Flank pain History of kidney stones Surgical History Surgical History History of pneumonectomy partial (left upper lobe) History of colostomy reversal History of colon resection History of hysterectomy History of abdominal surgery Family History Family History Unknown No problems noted. Mother Diabetes mellitus Heart disease Hypertension Mother No problems noted. Father Heart disease Hypertension Social History Social History Social History: Surrogate medical decision maker: Sarahy Fairchild, daughter. Code status: Full code. Smoking packs per day: 1 Smoking cigarettes per day: 20.0 Years smoked: 10 Smoking pack-years: 10.00 Smoking status: Current every day smoker Tobacco type: cigarettes Smoking end date: 09/16/11 Additional smoking assessment comments: Former smoker per chart. Belongings pt had 2 vapes. Pt intubated/sedated. Alcohol intake: current Drinks per week: 1 Alcohol use details: very rarely Substance use: current Substance use type: marijuana Other substance usage details: Vape THC on medical marijuana card. Last use: 10/02/2024 Do You Feel Safe in your Home?: Yes Lack of Transportation: YES Lack of Food: Often True Current Housing: I Have Housing Concerned About Future Housing: YES Difficulty Paying Gas/Electric Bills: YES Difficulty Paying for Meds: No Currently Unemployed: No Education: High School Diploma/GED Difficulty w/ Childcare or Family Care: No Living arrangements: alone Spiritual care concerns: No Exam 2 Narrative: APPEARANCE: No apparent distress. Pressured speech Head: atraumatic. EYES: EOMI, NOSE: Atraumatic NECK: Trachea midline RESPIRATORY: No increased rate of breathing, clear to auscultation CARDIOVASCULAR: RRR, no peripheral edema ABDOMINAL: Non-distended soft nontender MUSCULOSKELETAl: No obvious deformities NEURO: Alert. Moving 4/4 extremities SKIN:: Warm, dry. Normal color PSYCHIATRIC: Normal affect Course Vital Signs Vital signs: Vital Signs Temperature 98.6 F 03/11/25 01:20 Pulse Rate 103 H 03/11/25 01:20 Respiratory Rate 17 03/11/25 01:20 Blood Pressure 162/98 H 03/11/25 01:20 Pulse Oximetry 100 03/11/25 01:20 Temperature 98.6 F 03/11/25 01:20 Pulse Rate 76 03/11/25 04:18 Respiratory Rate 21 H 03/11/25 04:18 Blood Pressure 131/60 03/11/25 04:18 Pulse Oximetry 100 03/11/25 04:18 Oxygen Delivery Room Air 03/11/25 02:06 Medical Decision Making [facility] Narrative Medical decision making narrative: -Course: 59-year-old female presenting with chest pain that started during exertion and radiates to her left arm. Patient given nitro which she said improved her pain. Her workup showed flat troponins of 0.017 -> .015. EKG without ischemic changes. CT PE without evidence of pulmonary embolism or pneumonia. On re-evaluation patient is still having chest pain. Patient given oxygen morphine and nitro paste. She will be placed in telemetry for evaluation by Cardiology. -DDX includes but is not limited to: ACS, pneumonia, PE, chest wall pain, aortic dissection Independent EKG interpretation: Rhythm [sinus], Rate [88], [place] -[normal], [place] -[normal], QRS [narrow], QTC [normal], T waves -[negative for concerning inversions], ST Segments - [Negative for concerning elevations] Final interpretations: Normal sinus rhythm Vital Signs Vital Signs: Vital Signs Temperature 98.6 F 03/11/25 01:20 Pulse Rate 103 H 03/11/25 01:20 Respiratory Rate 17 03/11/25 01:20 Blood Pressure 162/98 H 03/11/25 01:20 Pulse Oximetry 100 03/11/25 01:20 Temperature 98.6 F 03/11/25 01:20 Pulse Rate 76 03/11/25 04:18 Respiratory Rate 21 H 03/11/25 04:18 Blood Pressure 131/60 03/11/25 04:18 Pulse Oximetry 100 03/11/25 04:18 Oxygen Delivery Room Air 03/11/25 02:06 Lab Data 03/11/25 01:26 03/11/25 01:26 Labs: Lab Results 03/11/25 03/11/25 03/11/25 Range/Units 01:26 02:40 04:20 WBC 7.9 (4.5-10.0) K/mm3 RBC 4.00 L (4.2-5.4) M/mm3 Hgb 11.7 L (12.0-15.0) g/dL Hct 36.3 L (37.0-47.0) % MCV 90.8 (80-100) fl MCH 29.3 (26-34) pg MCHC 32.2 (32-36) g/dl RDW 13.6 (11.5-14.5) % Plt Count 339 (150-375) k/mm3 MPV 9.4 (7.4-10.4) fl Immature Gran % (Auto) 0.1 (0-0.5) % Neut % (Auto) 59.2 (45.5-73.1) % Lymph % (Auto) 30.9 (18.3-44.2) % [place] % (Auto) 8.4 (2.6-8.5) % Eos % (Auto) 1.0 (0-4.4) % Baso % (Auto) 0.4 (0.2-1.2) % Lymph # (Auto) 2.45 (0.9-3.2) K/mm3 [place] # (Auto) 0.7 H (0.1-0.6) K/mm3 Eos # (Auto) 0.1 (0-0.3) K/mm3 Baso # (Auto) 0.0 (0.0-0.1) K/mm3 Abs Immat Gran (auto) 0.01 (0.00-0.031) K/mm3 Absolute Neuts (auto) 4.7 (1.3-6.7) K/mm3 Absolute Nucleated RBC 0.000 (0.0-0.012) K/mm3 Nucleated RBC % 0.0 (0.0-0.2) % PT 13.9 (11.1-14.7) Seconds INR 1.1 APTT 27.5 (22.3-36.8) Seconds Sodium 138 (137-145) mmol/L Potassium 3.6 (3.4-5.0) mmol/L Chloride 105 (98-107) mmol/L Carbon Dioxide 27 (22-30) mmol/L Anion Gap 6 (4-12) mmol/L BUN 11 (7-17) mg/dL Creatinine 0.86 (0.7-1.0) mg/dL Estim Creat Clear Calc Not Reportable Estimated GFR > 60 (59 - ) Glucose 93 (65-110) mg/dL Calcium 9.3 (8.4-10.2) mg/dL Total Bilirubin 0.4 (0.2-1.3) mg/dL AST 46 H (14-36) U/L ALT 32 (6-35) U/L Alkaline Phosphatase 77 (38-126) U/L Troponin I 0.017 0.015 (0.000-0.034) ng/mL Total Protein 7.1 (6.3-8.2) g/dL Albumin 4.0 (3.5-5.1) g/dL Urine Opiates Screen Negative (Negative) Urine Methadone Screen Negative (Negative) Ur Barbiturates Screen Negative (Negative) Ur Phencyclidine Scrn Negative (Negative) Ur Amphetamine Screen Negative (Negative) U Benzodiazepines Scrn Negative (Negative) Urine Cocaine Screen Negative (Negative) U Cannabinoids Screen Positive A (Negative) Ethyl Alcohol < 10 (<10) mg/dL Discharge Plan Discharge Clinical Impression: Chest pain Patient Disposition: Still a Patient Condition: Stable Patient Language: Cape Verdean Prescriptions: No Action lactulose 10 gram/15 mL solution 10 g PO BID Qty: 237 0RF cyclobenzaprine 10 mg tablet 10 mg PO TID ondansetron 8 mg tablet,disintegrating 8 mg PO Q6H PRN (Reason: Nausea And Vomiting) Centrum Silver Women 1 tab-cap PO DAILY clonazepam [Klonopin] 0.5 mg tablet 0.5 mg PO TID vitamin E 268 mg (400 unit) capsule 268 mg PO DAILY Ebcb-Zptf-Pxfv(vit A,C-biotin) 2,500 unit-100 mg-2,500 mcg capsule 1 cap PO DAILY aspirin [Adult Low Dose Aspirin] 81 mg tablet,delayed release (DR/EC) 81 mg PO DAILY dicyclomine 10 mg capsule 10 mg PO QID PRN (Reason: abdominal pain) Qty: 120 0RF Follow-up/Referrals: UNKNOWN,DOCTOR [Primary Care Provider] -
[2025-03-11 01:32] LABS: Hematocrit 36.3 % (37.0-47.0); Hemoglobin 11.7 g/dL (12.0-15.0); Immature Granulocyte Percent A 0.1 % (0-0.5); Lymphocytes Absolute Auto 2.45 K/mm3 (0.9-3.2); Mean Corpuscular HGB Conc 32.2 g/dl (32-36); Mean Corpuscular Hemoglobin 29.3 pg (26-34); Mean Corpuscular Volume 90.8 fl (80-100); Nucleated Red Blood Cells Absolute Auto 0.000 K/mm3 (0.0-0.012); Nucleated Red Blood Cells Perc 0.0 % (0.0-0.2); Platelet Count Result 339 k/mm3 (150-375); Red Blood Count 4.00 M/mm3 (4.2-5.4); White Blood Count 7.9 K/mm3 (4.5-10.0)
--- OUTSIDE RECORDS SUMMARY | 2025-03-11 01:42 | XMS_ITS | Clinical Summary ---
Author Organization [facility] Address [address] [place] [address] Care Team Providers Care Livestock Auctioneer Name Role Phone Fernando Chavez MD Primary Care Provider [phone] Source Comments [facility],non-owned Affiliates and Associated Physician Practices is amultiple site organization consisting of ambulatory clinics and hospital sitesin [place], [place], [place] and [place]. This disclosure is being madepursuant to the Care Everywhere program and may not contain all information available regarding this patient. Last updated 18.[facility] Allergies Active Allergy Reactions Criticality Noted Date [...] on file Legal Sex Female 6:00 AM DISASTER OR DAMAGE CONTROL SPECIALIST Gender Identity Not on file Sexual Orientation Not on file Last Filed Vital Signs Vital Sign Reading Time Taken Comments Blood Pressure 134/81 11/14/2023 3:18 PM CDT Pulse 112 11/14/2023 3:18 PM CDT Temperature 36.1 C (97 F) 11/14/2023 3:18 PM CDT Respiratory Rate 10 10/18/2023 11:1 1 AM DISASTER OR DAMAGE CONTROL SPECIALIST Oxygen Saturation 98% 11/14/2023 3:18 PM CDT [...] Comments LIPID PROFILE Routine 09/06/2023 1:46 AM DISASTER OR DAMAGE CONTROL SPECIALIST from Last 3 Months or Most Recently Relevant to Health Maintenance Results * LIPID PROFILE (09/06/2023 1:46 AM [facility]) Cholesterol Total 144 <200 mg/dL 09/06/2023 3:28 AM [facility] HDL 42 >40 mg/dL 09/06/2023 3:28 AM [facility] Comment: ATP III Classification of HDL Cholesterol: <40 mg/dL: Considered a major risk factor. >60 mg/dL: Considered a negative risk factor. LDL Calculated 86 <100 mg/dL 09/06/2023 3:28 AM [facility] Comment: ATP III Classification of LDL Cholesterol: <100 mg/dL: Optimal 100 - 129 mg/dL: Near Optimal/Above Optimal 130 - 159 mg/dL: Borderline High 160 - 189 mg/dL: High >190 mg/dL: Very High Triglycerides 79 <150 mg/dL 09/06/2023 3:28 AM [facility] Comment: ATP III Classification of Triglycerides: <150 mg/dL: Normal 150 - 199 mg/dL: Borderline High 200 - 400 mg/dL: High >500 mg/dL: Very High Blood BLOOD SPECIMEN / Unknown Lab Venipuncture / Unknown 09/06/2023 1:46 AM DISASTER OR DAMAGE CONTROL SPECIALIST 09/06/2023 2:51 AM [facility] us Timi Mills MD LAB - CHEMISTRY ORDERABLES Final Result [facility] [address] [place] [address], [facility] [phone] from Last 3 Months or Most Recently Relevant to Health Maintenance Insurance [employer] MEDICARE ADV HMO & PPO [employer] MEDICAID SPEND[place] SELF PAY NO INSURANCE Member Subscriber Plan / Payer (Ef fective for All Dates) Name:Madison Weinberg Member ID:Not on file Relation to Subscriber:Not on file Name:MADISON WEINBERG Subscriber ID:Not on file (Home) Address: [address] [place] [id number] Payer ID:Not on file Group ID:Not on file Type:Self Pay Address: [place], [place] MED[place] Advance Directives Documents on File Type Date Recorded Patient Cloth Drier Expl anation Adv Directive/Living Will/POA 09/09/2023 12:24 PM * LIMITED RESUSCITATION-PRIOR AND AFTER ARREST (Latest Code Status on File) Date Activated Date Inactivated Comments 09/06/2023 1:33 AM 09/07/2023 6:35 PM Question Answer Comments Limited Resuscitation: No Intubation, No Invasiv e Ventilation Care Teams Livestock Auctioneer Relationship Specialty Start Date End Date Fernando Chavez MD [address] [place] [address] PCP - General Family Medicine 09/06/23
--- OUTSIDE RECORDS SUMMARY | 2025-03-11 01:42 | XMS_ITS | Referral Summary ---
Author Organization [facility] Address [address] [place] [address] Care Team Providers Care Quality Control Clerk Name Role Phone Fernando Chavez MD Primary Care Provider [phone]- [phone] Allergies Active Allergy Reactions Criticality Noted Date [...] 07/02/2021 Assessment & Plan (07/02/2021 11:18 AM OIL RECOVERY OPERATOR): Pt's systolic blood pressure was noted [...] metoprolol for now. Pt is contact her dull coat mill operator tomorrow for further instructions. Fall 06/29/2021 Assessment & Plan (07/02/2021 11:10 AM OIL RECOVERY OPERATOR): Mechanical fall day prior to presentation with right hip pain. No prior history of hip pain. Xray of hip and knee were negative. Continue management with nonnarcotic meds. Home health referral made outpt. Assessment & Plan (07/01/2021 10:55 AM OIL RECOVERY OPERATOR): Mechanical fall day prior to presentation with right hip pain. No prior history of hip pain. Xray of hip and knee were negative. Continue management with nonnarcotic meds. PT consulted. Assessment & Plan (06/30/2021 11:54 AM OIL RECOVERY OPERATOR): Mechanical fall yesterday with right hip pain. No prior history of hip pain. Xray of hip and knee were negative. Continue management with nonnarcotic meds. PT consulted but pt refused to work with PT this morning. Assessment & Plan (06/29/2021 1:48 PM OIL RECOVERY OPERATOR): Mechanical fall yesterday with right hip pain. No prior history of hip pain. Xray of hip and knee were negative. Continue management with nonnarcotic meds. Acute hypoxemic respiratory failure 02/08/2021 Elevated troponin 01/14/2021 Atypical chest pain 01/14/2021 Assessment & Plan (07/02/2021 11:09 AM OIL RECOVERY OPERATOR): Troponins are negative. Continue to follow with dull coat mill operator as outpatient. Assessment & Plan (07/01/2021 10:54 AM OIL RECOVERY OPERATOR): Troponins are negative. Continue to follow with dull coat mill operator as outpatient. Assessment & Plan (06/30/2021 11:52 AM OIL RECOVERY OPERATOR): Troponins are negative. Continue to follow with dull coat mill operator as outpatient. Assessment & Plan (06/29/2021 1:45 PM OIL RECOVERY OPERATOR): Troponins are negative. Continue to follow with dull coat mill operator as outpatient. Hepatitis 01/14/2021 Tylenol overdose [...] (04/11/2020): Added automatically from request for surgery [id number] Assessment & Plan (07/02/2021 10:58 AM OIL RECOVERY OPERATOR): Please see constipation noted elsewhere. CT is otherwise unremarkable. Pt also has underlying chronic abdominal pain. Assessment & Plan (07/01/2021 10:53 AM OIL RECOVERY OPERATOR): Please see constipation noted elsewhere. CT is otherwise unremarkable. Pt also has underlying chronic abdominal pain. Assessment & Plan (06/30/2021 11:49 AM OIL RECOVERY OPERATOR): Please see constipation noted elsewhere. CT is otherwise unremarkable. Pt also has underlying chronic abdominal pain. Assessment & Plan (06/29/2021 1:48 PM OIL RECOVERY OPERATOR): Please see constipation noted elsewhere. CT [...] NOS Assessment & Plan (07/02/2021 11:09 AM OIL RECOVERY OPERATOR): Continue home meds. Assessment & Plan (07/01/2021 10:53 AM OIL RECOVERY OPERATOR): Continue home meds. Assessment & Plan (06/30/2021 11:51 AM OIL RECOVERY OPERATOR): Continue home meds. Assessment & Plan (06/29/2021 1:46 PM OIL RECOVERY OPERATOR): Continue home meds. Assessment & Plan (04/23/2020 1:50 PM CDT): - home clonazepam 0.5mg BID Acute cerebrovascular insufficiency 12/26/2013 Overview (11/16/2016): AC CEREBROVASC INSUF NOS Constipation Assessment & Plan (07/02/2021 11:09 AM OIL RECOVERY OPERATOR): Pt's history and CT suggests this; no suggestion of bowel obstruction on CT. Continue bowel regimen and monitor for stools. Avoid narcotics; pt reports she is not on any narcotics at home. Mag citrate was tried per pt's request but this did not result in bm. She drank @ 2L of Golytely with good results. Assessment & Plan (07/01/2021 10:53 AM OIL RECOVERY OPERATOR): Pt's history and CT suggests this; no suggestion of bowel obstruction on CT. Continue bowel regimen and monitor for stools. Avoid narcotics; pt reports she is not on any narcotics at home. Mag citrate was tried yesterday per pt's request but this did not result in bm. She drank @ 2L of Golytely with good results. Assessment & Plan (06/30/2021 11:50 AM OIL RECOVERY OPERATOR): Pt's history and CT suggests this; no suggestion of bowel obstruction. Continue bowel regimen and monitor for stools. Avoid narcotics; pt reports she is not on any narcotics at home. Mag citrate was tried yesterday per pt's request but this did not result in bm. Plan is to place NG and give Golytely through this today. Assessment & Plan (06/29/2021 1:44 PM OIL RECOVERY OPERATOR): Pt's history and CT suggests this; [...] often do you attend chur ch or baptism services? 1 to 4 times per year 02/09/2021 Do you belong to any clubs o r organizations such as judaism groups, unions, fraternal or athletic groups, or [...] on file Legal Sex Female 5:42 AM OIL RECOVERY OPERATOR Gender Identity Not on file Sexual [...] Not on file Insurance [employer] MEDICARE HMO [facility] CHOICE [place] [address] [address] [employer] HU[employer] MEDICARE HMO Advance Directives For more information, please contact: [phone] * Full Code (Latest Code Status on [...] 4:23 PM 04/28/2020 8:27 PM Care Teams Quality Control Clerk Relationship Specialty Start Date End Date Fernando Chavez MD [address] [place] [address] [id number] PCP - General Family Medicine 03/05/24
--- OUTSIDE RECORDS SUMMARY | 2025-03-11 01:42 | XMS_ITS | Clinical Summary ---
Author Organization [facility] Address [address] [place] [address] Care Team Providers Care Orthopedic Nurse Name Role Phone Fernando Chavez MD Primary Care Provider [phone]- [phone] Allergies Active Allergy Reactions Criticality Noted Date [...] 07/02/2021 Assessment & Plan (07/02/2021 11:18 AM OPENER TENDER): Pt's systolic blood pressure was noted to [...] metoprolol for now. Pt is contact her legal document assistant tomorrow for further instructions. Fall 06/29/2021 Assessment & Plan (07/02/2021 11:10 AM OPENER TENDER): Mechanical fall day prior to presentation with right hip pain. No prior history of hip pain. Xray of hip and knee were negative. Continue management with nonnarcotic meds. Home health referral made outpt. Assessment & Plan (07/01/2021 10:55 AM OPENER TENDER): Mechanical fall day prior to presentation with right hip pain. No prior history of hip pain. Xray of hip and knee were negative. Continue management with nonnarcotic meds. PT consulted. Assessment & Plan (06/30/2021 11:54 AM OPENER TENDER): Mechanical fall yesterday with right hip pain. No prior history of hip pain. Xray of hip and knee were negative. Continue management with nonnarcotic meds. PT consulted but pt refused to work with PT this morning. Assessment & Plan (06/29/2021 1:48 PM OPENER TENDER): Mechanical fall yesterday with right hip pain. No prior history of hip pain. Xray of hip and knee were negative. Continue management with nonnarcotic meds. Acute hypoxemic respiratory failure 02/08/2021 Elevated troponin 01/14/2021 Atypical chest pain 01/14/2021 Assessment & Plan (07/02/2021 11:09 AM OPENER TENDER): Troponins are negative. Continue to follow with legal document assistant as outpatient. Assessment & Plan (07/01/2021 10:54 AM OPENER TENDER): Troponins are negative. Continue to follow with legal document assistant as outpatient. Assessment & Plan (06/30/2021 11:52 AM OPENER TENDER): Troponins are negative. Continue to follow with legal document assistant as outpatient. Assessment & Plan (06/29/2021 1:45 PM OPENER TENDER): Troponins are negative. Continue to follow with legal document assistant as outpatient. Hepatitis 01/14/2021 Tylenol overdose 01/14/2021 [...] (04/11/2020): Added automatically from request for surgery [id number] Assessment & Plan (07/02/2021 10:58 AM OPENER TENDER): Please see constipation noted elsewhere. CT is otherwise unremarkable. Pt also has underlying chronic abdominal pain. Assessment & Plan (07/01/2021 10:53 AM OPENER TENDER): Please see constipation noted elsewhere. CT is otherwise unremarkable. Pt also has underlying chronic abdominal pain. Assessment & Plan (06/30/2021 11:49 AM OPENER TENDER): Please see constipation noted elsewhere. CT is otherwise unremarkable. Pt also has underlying chronic abdominal pain. Assessment & Plan (06/29/2021 1:48 PM OPENER TENDER): Please see constipation noted elsewhere. CT is [...] NOS Assessment & Plan (07/02/2021 11:09 AM OPENER TENDER): Continue home meds. Assessment & Plan (07/01/2021 10:53 AM OPENER TENDER): Continue home meds. Assessment & Plan (06/30/2021 11:51 AM OPENER TENDER): Continue home meds. Assessment & Plan (06/29/2021 1:46 PM OPENER TENDER): Continue home meds. Assessment & Plan (04/23/2020 1:50 PM CDT): - home clonazepam 0.5mg BID Acute cerebrovascular insufficiency 12/26/2013 Overview (11/16/2016): AC CEREBROVASC INSUF NOS Constipation Assessment & Plan (07/02/2021 11:09 AM OPENER TENDER): Pt's history and CT suggests this; no suggestion of bowel obstruction on CT. Continue bowel regimen and monitor for stools. Avoid narcotics; pt reports she is not on any narcotics at home. Mag citrate was tried per pt's request but this did not result in bm. She drank @ 2L of Golytely with good results. Assessment & Plan (07/01/2021 10:53 AM OPENER TENDER): Pt's history and CT suggests this; no suggestion of bowel obstruction on CT. Continue bowel regimen and monitor for stools. Avoid narcotics; pt reports she is not on any narcotics at home. Mag citrate was tried yesterday per pt's request but this did not result in bm. She drank @ 2L of Golytely with good results. Assessment & Plan (06/30/2021 11:50 AM OPENER TENDER): Pt's history and CT suggests this; no suggestion of bowel obstruction. Continue bowel regimen and monitor for stools. Avoid narcotics; pt reports she is not on any narcotics at home. Mag citrate was tried yesterday per pt's request but this did not result in bm. Plan is to place NG and give Golytely through this today. Assessment & Plan (06/29/2021 1:44 PM OPENER TENDER): Pt's history and CT suggests this; no [...] week 02/09/2021 How often do you attend [facility] or roman catholic services? 1 to 4 times per year 02/09/2021 Do you belong to any clubs o r organizations such as zoroastrianism groups, unions, fraternal or athletic groups, or [...] on file Legal Sex Female 5:42 AM OPENER TENDER Gender Identity Not on file Sexual [...] (2 - Td or Tdap) 07/20/202904/2019 Insurance [facility] MEDICARE HMO * Guarantor: Madison Weinberg Account Type Relation to Patient Date of Phone Billing Address Personal/Family Self 1965 [address] [facility] [place] [address] [facility] CHOICE OOS [facility] [employer] CHOICE HUMANA MEDICARE HMO Advance Directives For more information, please contact: [phone] * Full Code (Latest Code Status on [...] 4:23 PM 04/28/2020 8:27 PM Care Teams Orthopedic Nurse Relationship Specialty Start Date End Date Fernando Chavez MD [address] [address] PCP - General Family Medicine 03/05/24
[2025-03-11 01:43] LABS: Alanine Aminotransferase 32 U/L (6-35); Albumin Level 4.0 g/dL (3.5-5.1); Alkaline Phosphatase 77 U/L (38-126); Anion Gap 6 mmol/L (4-12); Aspartate Amino Transferase 46 U/L (14-36); Bilirubin,Total 0.4 mg/dL (0.2-1.3); Blood Urea Nitrogen 11 mg/dL (7-17); Calcium 9.3 mg/dL (8.4-10.2); Carbon Dioxide 27 mmol/L (22-30); Chloride 105 mmol/L (98-107); Estimated Glomerular Filt Rate > 60; Glucose 93 mg/dL (65-110); Potassium 3.6 mmol/L (3.4-5.0); Sodium 138 mmol/L (137-145); Total Protein 7.1 g/dL (6.3-8.2)
[2025-03-11 01:55] LABS: Troponin I 0.017 ng/mL (0.000-0.034)
[2025-03-11 02:00] LABS: INR 1.1; Prothrombin Time 13.9 Seconds (11.1-14.7)
[2025-03-11 02:01] LABS: Partial Thromboplastin Time 27.5 Seconds (22.3-36.8)
[2025-03-11] MEDS: NITROGLYCERIN SL 0.4 MG TABLET SUBLINGUAL ×3 (02:09→14:33)
[2025-03-11] MEDS: ACETAMINOPHEN 325 MG TABLET 650 MG PO (02:15)
[2025-03-11 03:05] LABS: Cannabinoid Screen Urine Positive (Negative)
--- NOTE | 2025-03-11 04:12 | ECG_ITS ---
Test Date: 2025-03-11 04:19:06 Measurements Intervals [place] Rate: 60 P: 63 RI: 157 QRS: 78 QRSD: 77 T: 85 QT: 476 QTc: 478 Interpretive Statements SINUS RHYTHM PROLONGED QT INTERVAL Compared to ECG 03/11/2025 01:27:03 Prolonged QT interval now present Electronically Signed On 03-11-2025 11:09:08 CDT by Dawit Wang M.D.
[2025-03-11 04:53] LABS: Troponin I 0.015 ng/mL (0.000-0.034)
[2025-03-11] MEDS: NITROGLYCERIN OINTMENT 1 INCH DOSE TRANSDERM (05:11)
[2025-03-11] MEDS: MORPHINE SULFATE (*CRX) 4 MG/ML INJ IV PUSH (05:11)
--- NOTE | 2025-03-11 07:03 | ECG_ITS ---
Test Date: 2025-03-11 07:08:12 Measurements Intervals [place] Rate: 69 P: 62 ME: 146 QRS: 74 QRSD: 82 T: 83 QT: 462 QTc: 496 Interpretive Statements SINUS RHYTHM WITH OCCASIONAL SUPRAVENTRICULAR PREMATURE COMPLEXES PROLONGED QT INTERVAL Compared to ECG 03/11/2025 04:19:06 No significant changes Electronically Signed On 03-11-2025 11:09:55 CDT by Dawit Wang M.D.
[2025-03-11 07:49] LABS: Troponin I 0.016 ng/mL (0.000-0.034)
--- NOTE | 2025-03-11 08:19 | ADMGEN ---
This patient, Madison Weinberg, was admitted to IMU Room 200-01 at approximately 0800. Patient/family oriented to hospital policies and general routines including ID bracelet, bed and alarms, visiting hours, pain management, procedures, bathroom and other care routines, personal items, smoking policy, room service/diet, and visiting hours. Information on how to activate the Rapid Response Team has been discussed. Patient/Family are encouraged to report perceived risks to care and to ask questions if they do not understand what they are told or what they should do.
--- OUTSIDE RECORDS SUMMARY | 2025-03-11 08:37 | XMS_ITS | Clinical Summary ---
Author Organization [facility] Address [address] [facility] [place] [address] Care Team Providers Care Baker Name Role Phone Fernando Chavez MD Primary Care Provider Source Comments [facility],non-owned Affiliates and Associated Physician Practices is amultiple site organization consisting of ambulatory clinics and hospital sitesin [place], [place], [place] and [place]. This disclosure is being madepursuant to the Care Everywhere program and may not contain all information available regarding this patient. Last updated 18.[facility] Allergies Active Allergy Reactions Criticality Noted Date [...] on file Legal Sex Female 6:00 AM SUPERVISOR SHIPPING ROOM Gender Identity Not on file Sexual Orientation Not on file Last Filed Vital Signs Vital Sign Reading Time Taken Comments Blood Pressure 134/81 11/14/2023 3:18 PM CDT Pulse 112 11/14/2023 3:18 PM CDT Temperature 36.1 C (97 F) 11/14/2023 3:18 PM CDT Respiratory Rate 10 10/18/2023 11:1 1 AM SUPERVISOR SHIPPING ROOM Oxygen Saturation 98% 11/14/2023 3:18 PM CDT [...] Comments LIPID PROFILE Routine 09/06/2023 1:46 AM SUPERVISOR SHIPPING ROOM from Last 3 Months or Most Recently Relevant to Health Maintenance Results * LIPID PROFILE (09/06/2023 1:46 AM [facility]) Cholesterol Total 144 <200 mg/dL 09/06/2023 [...] Lab Venipuncture / Unknown 09/06/2023 1:46 AM SUPERVISOR SHIPPING ROOM 09/06/2023 2:51 AM [facility] us Timi Mills MD LAB - CHEMISTRY ORDERABLES Final Result [facility] [address] [place] [address], [facility] [phone] from Last 3 Months or Most Recently Relevant to Health Maintenance Insurance HUMANA MEDICARE ADV HMO & PPO HU[employer]NA MEDICAID [place] SELF PAY NO INSURANCE Member Subscriber Plan / Payer (Ef fective for All Dates) Name:Madison Weinberg Member ID:Not on file Relation to Subscriber:Not on file Name:MADISON WEINBERG Subscriber ID:Not on file (Home) Address: [address] [place] [id number] Payer ID:Not on file Group ID:Not on file Type:Self Pay Address: [place], [place] MEDICAID [place] Advance Directives Documents on File Type Date Recorded Patient Linoleum Tile Layer Expl anation Adv Directive/Living Will/POA 09/09/2023 12:24 PM * LIMITED RESUSCITATION-PRIOR AND AFTER ARREST (Latest Code Status on File) Date Activated Date Inactivated Comments 09/06/2023 1:33 AM 09/07/2023 6:35 PM Question Answer Comments Limited Resuscitation: No Intubation, No Invasiv e Ventilation Care Teams Baker Relationship Specialty Start Date End Date Fernando Chavez MD [address] [place] [address] PCP - General Family Medicine 09/06/23
--- OUTSIDE RECORDS SUMMARY | 2025-03-11 08:37 | XMS_ITS | Clinical Summary ---
Author Organization [facility] Address [address] [place] [address] Care Team Providers Care Operations Support Professionals Name Role Phone Fernando Chavez MD Primary Care Provider [phone]- [phone] Allergies Active Allergy Reactions Criticality Noted Date [...] 07/02/2021 Assessment & Plan (07/02/2021 11:18 AM PERSONAL SECRETARY): Pt's systolic blood pressure was noted to [...] metoprolol for now. Pt is contact her sales representative aircraft tomorrow for further instructions. Fall 06/29/2021 Assessment & Plan (07/02/2021 11:10 AM PERSONAL SECRETARY): Mechanical fall day prior to presentation with right hip pain. No prior history of hip pain. Xray of hip and knee were negative. Continue management with nonnarcotic meds. Home health referral made outpt. Assessment & Plan (07/01/2021 10:55 AM PERSONAL SECRETARY): Mechanical fall day prior to presentation with right hip pain. No prior history of hip pain. Xray of hip and knee were negative. Continue management with nonnarcotic meds. PT consulted. Assessment & Plan (06/30/2021 11:54 AM PERSONAL SECRETARY): Mechanical fall yesterday with right hip pain. No prior history of hip pain. Xray of hip and knee were negative. Continue management with nonnarcotic meds. PT consulted but pt refused to work with PT this morning. Assessment & Plan (06/29/2021 1:48 PM PERSONAL SECRETARY): Mechanical fall yesterday with right hip pain. No prior history of hip pain. Xray of hip and knee were negative. Continue management with nonnarcotic meds. Acute hypoxemic respiratory failure 02/08/2021 Elevated troponin 01/14/2021 Atypical chest pain 01/14/2021 Assessment & Plan (07/02/2021 11:09 AM PERSONAL SECRETARY): Troponins are negative. Continue to follow with sales representative aircraft as outpatient. Assessment & Plan (07/01/2021 10:54 AM PERSONAL SECRETARY): Troponins are negative. Continue to follow with sales representative aircraft as outpatient. Assessment & Plan (06/30/2021 11:52 AM PERSONAL SECRETARY): Troponins are negative. Continue to follow with sales representative aircraft as outpatient. Assessment & Plan (06/29/2021 1:45 PM PERSONAL SECRETARY): Troponins are negative. Continue to follow with sales representative aircraft as outpatient. Hepatitis 01/14/2021 Tylenol overdose 01/14/2021 [...] (04/11/2020): Added automatically from request for surgery [id number] Assessment & Plan (07/02/2021 10:58 AM PERSONAL SECRETARY): Please see constipation noted elsewhere. CT is otherwise unremarkable. Pt also has underlying chronic abdominal pain. Assessment & Plan (07/01/2021 10:53 AM PERSONAL SECRETARY): Please see constipation noted elsewhere. CT is otherwise unremarkable. Pt also has underlying chronic abdominal pain. Assessment & Plan (06/30/2021 11:49 AM PERSONAL SECRETARY): Please see constipation noted elsewhere. CT is otherwise unremarkable. Pt also has underlying chronic abdominal pain. Assessment & Plan (06/29/2021 1:48 PM PERSONAL SECRETARY): Please see constipation noted elsewhere. CT is [...] NOS Assessment & Plan (07/02/2021 11:09 AM PERSONAL SECRETARY): Continue home meds. Assessment & Plan (07/01/2021 10:53 AM PERSONAL SECRETARY): Continue home meds. Assessment & Plan (06/30/2021 11:51 AM PERSONAL SECRETARY): Continue home meds. Assessment & Plan (06/29/2021 1:46 PM PERSONAL SECRETARY): Continue home meds. Assessment & Plan (04/23/2020 1:50 PM CDT): - home clonazepam 0.5mg BID Acute cerebrovascular insufficiency 12/26/2013 Overview (11/16/2016): AC CEREBROVASC INSUF NOS Constipation Assessment & Plan (07/02/2021 11:09 AM PERSONAL SECRETARY): Pt's history and CT suggests this; no suggestion of bowel obstruction on CT. Continue bowel regimen and monitor for stools. Avoid narcotics; pt reports she is not on any narcotics at home. Mag citrate was tried per pt's request but this did not result in bm. She drank @ 2L of Golytely with good results. Assessment & Plan (07/01/2021 10:53 AM PERSONAL SECRETARY): Pt's history and CT suggests this; no suggestion of bowel obstruction on CT. Continue bowel regimen and monitor for stools. Avoid narcotics; pt reports she is not on any narcotics at home. Mag citrate was tried yesterday per pt's request but this did not result in bm. She drank @ 2L of Golytely with good results. Assessment & Plan (06/30/2021 11:50 AM PERSONAL SECRETARY): Pt's history and CT suggests this; no suggestion of bowel obstruction. Continue bowel regimen and monitor for stools. Avoid narcotics; pt reports she is not on any narcotics at home. Mag citrate was tried yesterday per pt's request but this did not result in bm. Plan is to place NG and give Golytely through this today. Assessment & Plan (06/29/2021 1:44 PM PERSONAL SECRETARY): Pt's history and CT suggests this; no [...] week 02/09/2021 How often do you attend [facility] or hindu services? 1 to 4 times per year 02/09/2021 Do you belong to any clubs o r organizations such as mormonism groups, unions, fraternal or athletic groups, or [...] on file Legal Sex Female 5:42 AM PERSONAL SECRETARY Gender Identity Not on file Sexual Orientation [...] (2 - Td or Tdap) 07/20/202904/2019 Insurance [facility] MEDICARE HMO [facility] CHOICE OOS [facility] [place] CHOICE HUMANA MEDICARE HMO Advance Directives For more information, please contact: [phone] * Full Code (Latest Code Status on [...] 4:23 PM 04/28/2020 8:27 PM Care Teams Operations Support Professionals Relationship Specialty Start Date End Date Fernando Chavez MD [address] [address] PCP - General Family Medicine 03/05/24
--- OUTSIDE RECORDS SUMMARY | 2025-03-11 08:37 | XMS_ITS | Referral Summary ---
Author Organization [facility] Address [address] [place] [address] Care Team Providers Care Certified Retinal Angiographer Name Role Phone Fernando Chavez MD Primary Care Provider [phone] Allergies Active Allergy Reactions Criticality Noted Date [...] 07/02/2021 Assessment & Plan (07/02/2021 11:18 AM MOBILE PET GROOMER): Pt's systolic blood pressure was noted to [...] metoprolol for now. Pt is contact her metal bonding assembler tomorrow for further instructions. Fall 06/29/2021 Assessment & Plan (07/02/2021 11:10 AM MOBILE PET GROOMER): Mechanical fall day prior to presentation with right hip pain. No prior history of hip pain. Xray of hip and knee were negative. Continue management with nonnarcotic meds. Home health referral made outpt. Assessment & Plan (07/01/2021 10:55 AM MOBILE PET GROOMER): Mechanical fall day prior to presentation with right hip pain. No prior history of hip pain. Xray of hip and knee were negative. Continue management with nonnarcotic meds. PT consulted. Assessment & Plan (06/30/2021 11:54 AM MOBILE PET GROOMER): Mechanical fall yesterday with right hip pain. No prior history of hip pain. Xray of hip and knee were negative. Continue management with nonnarcotic meds. PT consulted but pt refused to work with PT this morning. Assessment & Plan (06/29/2021 1:48 PM MOBILE PET GROOMER): Mechanical fall yesterday with right hip pain. No prior history of hip pain. Xray of hip and knee were negative. Continue management with nonnarcotic meds. Acute hypoxemic respiratory failure 02/08/2021 Elevated troponin 01/14/2021 Atypical chest pain 01/14/2021 Assessment & Plan (07/02/2021 11:09 AM MOBILE PET GROOMER): Troponins are negative. Continue to follow with metal bonding assembler as outpatient. Assessment & Plan (07/01/2021 10:54 AM MOBILE PET GROOMER): Troponins are negative. Continue to follow with metal bonding assembler as outpatient. Assessment & Plan (06/30/2021 11:52 AM MOBILE PET GROOMER): Troponins are negative. Continue to follow with metal bonding assembler as outpatient. Assessment & Plan (06/29/2021 1:45 PM MOBILE PET GROOMER): Troponins are negative. Continue to follow with metal bonding assembler as outpatient. Hepatitis 01/14/2021 Tylenol overdose 01/14/2021 [...] (04/11/2020): Added automatically from request for surgery [id number] Assessment & Plan (07/02/2021 10:58 AM MOBILE PET GROOMER): Please see constipation noted elsewhere. CT is otherwise unremarkable. Pt also has underlying chronic abdominal pain. Assessment & Plan (07/01/2021 10:53 AM MOBILE PET GROOMER): Please see constipation noted elsewhere. CT is otherwise unremarkable. Pt also has underlying chronic abdominal pain. Assessment & Plan (06/30/2021 11:49 AM MOBILE PET GROOMER): Please see constipation noted elsewhere. CT is otherwise unremarkable. Pt also has underlying chronic abdominal pain. Assessment & Plan (06/29/2021 1:48 PM MOBILE PET GROOMER): Please see constipation noted elsewhere. CT is [...] NOS Assessment & Plan (07/02/2021 11:09 AM MOBILE PET GROOMER): Continue home meds. Assessment & Plan (07/01/2021 10:53 AM MOBILE PET GROOMER): Continue home meds. Assessment & Plan (06/30/2021 11:51 AM MOBILE PET GROOMER): Continue home meds. Assessment & Plan (06/29/2021 1:46 PM MOBILE PET GROOMER): Continue home meds. Assessment & Plan (04/23/2020 1:50 PM CDT): - home clonazepam 0.5mg BID Acute cerebrovascular insufficiency 12/26/2013 Overview (11/16/2016): AC CEREBROVASC INSUF NOS Constipation Assessment & Plan (07/02/2021 11:09 AM MOBILE PET GROOMER): Pt's history and CT suggests this; no suggestion of bowel obstruction on CT. Continue bowel regimen and monitor for stools. Avoid narcotics; pt reports she is not on any narcotics at home. Mag citrate was tried per pt's request but this did not result in bm. She drank @ 2L of Golytely with good results. Assessment & Plan (07/01/2021 10:53 AM MOBILE PET GROOMER): Pt's history and CT suggests this; no suggestion of bowel obstruction on CT. Continue bowel regimen and monitor for stools. Avoid narcotics; pt reports she is not on any narcotics at home. Mag citrate was tried yesterday per pt's request but this did not result in bm. She drank @ 2L of Golytely with good results. Assessment & Plan (06/30/2021 11:50 AM MOBILE PET GROOMER): Pt's history and CT suggests this; no suggestion of bowel obstruction. Continue bowel regimen and monitor for stools. Avoid narcotics; pt reports she is not on any narcotics at home. Mag citrate was tried yesterday per pt's request but this did not result in bm. Plan is to place NG and give Golytely through this today. Assessment & Plan (06/29/2021 1:44 PM MOBILE PET GROOMER): Pt's history and CT suggests this; no [...] any clubs o r organizations such as episcopal groups, unions, fraternal or athletic groups, or [...] on file Legal Sex Female 5:42 AM MOBILE PET GROOMER Gender Identity Not on file Sexual Orientation [...] Not on file Insurance [employer] MED[employer]ARE HMO [facility] [place] [address] [employer] MED[employer] HMO Advance Directives For more information, please contact: [phone] * Full Code (Latest Code Status on [...] 4:23 PM 04/28/2020 8:27 PM Care Teams Certified Retinal Angiographer Relationship Specialty Start Date End Date Fernando Chavez MD [id number] [place] [address] [id number] PCP - General Family Medicine 03/05/24
[2025-03-11] MEDS: clonazePAM (*CRX) 0.5 MG TABLET PO ×3 (09:22→20:45)
[2025-03-11] MEDS: ATORVASTATIN 40 MG TABLET 80 MG PO (09:22)
[2025-03-11] MEDS: ENOXAPARIN 40 MG/0.4 ML SYRINGE SUB-Q (09:22)
[2025-03-11 09:38] LABS: Thyroid Stimulating Hormone Reflex 0.565 uIU/mL (0.465-4.68)
[2025-03-11] MEDS: MORPHINE SULFATE (*CRX) 2 MG/ML INJ IV PUSH (09:44)
[2025-03-11 10:18] LABS: Cholesterol 209 mg/dL (0-200); HDL Direct 55 mg/dL; Triglycerides 113 mg/dL (<150)
--- NOTE | 2025-03-11 13:05 | PM.IMHP ---
H&P: HPI History of Present Illness Date/Time: 03/11/25 13:05 Chief Complaint: Chest pain Narrative: Patient is 59 y F with history of SBO and several abd surgery , chronic pain using THC, R carotid stenosis family history of breast cancer, presented with Chest pain started 3 H before admission. she describe pain as severe on L side chest radiating to L arm and l sided neck. pain getting worse with palpation, activity and getting better with morphine and rest. denies SOb,abd pain, n/V. in the Er vital signs unremarkable excepet for Bp 162/98. lab test showed WBC 7.9 , Hb 11.7.Ct neg for PE. ECG neg for acute changes. Troponin neg. Echo was ordered. cardiology team was consulted. patient was admitted for further management. [facility] Past Medical History Medical History Stenosis of right carotid artery 40% stenosis Lower abdominal pain History of histoplasmosis History of stroke [facility] Chronic pain Constipation Hypotension Bowel obstruction History of MRSA infection PONV (postoperative nausea and vomiting) Migraine Anxiety Endometriosis Osteoporosis Flank pain History of kidney stones Surgical History Surgical History History of pneumonectomy partial (left upper lobe) History of colostomy reversal History of colon resection History of hysterectomy History of abdominal surgery Family History Family History (Updated 03/11/25 @ 09:32 by Trini Briceno RN) Unknown No problems noted. Mother Diabetes mellitus Heart disease Hypertension Mother Enlarged heart Kidney failure Father Enlarged heart Heart disease Hypertension Sibling Breast cancer Sibling Malignant neoplasm of prostate Social History Social History Social History: Surrogate medical decision maker: Sarahy Fairchild, daughter. Code status: Full code. Smoking packs per day: 1 Smoking cigarettes per day: 20.0 Years smoked: 10 Smoking pack-years: 10.00 Smoking status: Current every day smoker Tobacco type: cigarettes Smoking end date: 09/16/11 Additional smoking assessment comments: Former smoker per chart. Belongings pt had 2 vapes. Pt intubated/sedated. Alcohol intake: current Drinks per week: 1 Alcohol use details: very rarely Substance use: never Substance use type: marijuana Other substance usage details: Vape THC on medical marijuana card. Last use: 10/02/2024 Do You Feel Safe in your Home?: Yes Lack of Transportation: No Lack of Food: Never True Current Housing: I Have Housing Concerned About Future Housing: No Difficulty Paying Gas/Electric Bills: No Difficulty Paying for Meds: No Currently Unemployed: No Education: Associate Degree Difficulty w/ Childcare or Family Care: No Living arrangements: alone Spiritual care concerns: No Meds Home Medications and Allergies Home Medications ?Medication ?Instructions ?Recorded ?Confirmed ?Type clonazepam 0.5 mg tablet (Klonopin) 0.5 mg PO TID 09/04/23 03/11/25 History cyclobenzaprine 10 mg tablet 10 mg PO TID PRN muscle pain 09/04/23 03/11/25 History aspirin 81 mg tablet,delayed 81 mg PO DAILY 09/16/24 03/11/25 History release (Adult Low Dose Aspirin) Allergies Allergy/AdvReac Type Severity Reaction Status Date / Time adhesive tape Allergy Rash Verified 03/11/25 09:26 venlafaxine (From Effexor) AdvReac Intermediate Other Verified 03/11/25 09:26 bupropion (From Wellbutrin) AdvReac ALTERED Verified 03/11/25 09:26 MENTAL STATUS codeine AdvReac Itching Verified 03/11/25 09:26 diphenhydramine (From AdvReac Jittery Verified 03/11/25 09:26 Benadryl) duloxetine (From Cymbalta) AdvReac ALTERED Verified 03/11/25 09:26 MENTAL STATUS gabapentin AdvReac Confusion Verified 03/11/25 09:26 sertraline (From Zoloft) AdvReac Confusion Verified 03/11/25 09:26 Vital Signs Vital Signs - 24 hr 03/11/25 01:20 03/11/25 01:34 03/11/25 01:45 Temperature 98.6 F Pulse Rate 103 H 91 79 Respiratory Rate 17 19 17 Blood Pressure 162/98 H Pulse Oximetry 100 100 100 Oxygen Delivery 03/11/25 01:46 03/11/25 02:06 03/11/25 02:13 Temperature Pulse Rate 88 91 Respiratory Rate 22 H 18 Blood Pressure 136/85 Pulse Oximetry 100 100 Oxygen Delivery Room Air 03/11/25 02:15 03/11/25 02:16 03/11/25 02:30 Temperature Pulse Rate 88 88 82 Respiratory Rate 27 H 16 24 H Blood Pressure 152/91 H Pulse Oximetry 100 100 100 Oxygen Delivery 03/11/25 02:31 03/11/25 02:41 03/11/25 02:45 Temperature Pulse Rate 83 67 66 Respiratory Rate 30 H 29 H 24 H Blood Pressure 148/69 H 157/51 H Pulse Oximetry 100 100 100 Oxygen Delivery 03/11/25 02:46 03/11/25 03:00 03/11/25 03:01 Temperature Pulse Rate 70 67 69 Respiratory Rate 23 H 16 16 Blood Pressure 134/68 123/67 Pulse Oximetry 100 100 100 Oxygen Delivery 03/11/25 03:15 03/11/25 03:16 03/11/25 03:30 Temperature Pulse Rate 71 66 65 Respiratory Rate 17 14 24 H Blood Pressure 124/62 Pulse Oximetry 99 100 98 Oxygen Delivery 03/11/25 03:31 03/11/25 03:45 03/11/25 03:46 Temperature Pulse Rate 60 53 L 64 Respiratory Rate 15 15 17 Blood Pressure 139/68 130/77 Pulse Oximetry 99 99 99 Oxygen Delivery 03/11/25 04:00 03/11/25 04:01 03/11/25 04:15 Temperature Pulse Rate 74 63 71 Respiratory Rate 17 13 20 Blood Pressure 134/65 Pulse Oximetry 96 99 Oxygen Delivery 03/11/25 04:18 03/11/25 04:19 03/11/25 04:30 Temperature Pulse Rate 76 74 62 Respiratory Rate 21 H 31 H 15 Blood Pressure 131/60 Pulse Oximetry 100 100 Oxygen Delivery 03/11/25 04:31 03/11/25 04:45 03/11/25 04:46 Temperature Pulse Rate 66 82 69 Respiratory Rate 13 25 H 24 H Blood Pressure 123/54 L 152/91 H Pulse Oximetry 99 98 100 Oxygen Delivery 03/11/25 05:00 03/11/25 05:01 03/11/25 05:02 Temperature Pulse Rate 61 64 66 Respiratory Rate 17 24 H 23 H Blood Pressure 137/71 Pulse Oximetry 100 100 Oxygen Delivery 03/11/25 05:15 03/11/25 05:16 03/11/25 05:30 Temperature Pulse Rate 92 85 75 Respiratory Rate 26 H 16 17 Blood Pressure 159/86 H Pulse Oximetry 100 98 99 Oxygen Delivery 03/11/25 05:31 03/11/25 05:45 03/11/25 06:00 Temperature Pulse Rate 70 76 87 Respiratory Rate 15 15 13 Blood Pressure 139/66 Pulse Oximetry 100 98 97 Oxygen Delivery 03/11/25 06:01 03/11/25 06:15 03/11/25 06:16 Temperature Pulse Rate 91 84 82 Respiratory Rate 13 14 13 Blood Pressure 144/73 H 137/74 Pulse Oximetry 99 98 99 Oxygen Delivery 03/11/25 06:30 03/11/25 06:45 03/11/25 06:46 Temperature Pulse Rate 78 82 78 Respiratory Rate 11 L 15 12 Blood Pressure 126/57 L Pulse Oximetry 98 97 99 Oxygen Delivery 03/11/25 07:00 03/11/25 07:18 03/11/25 07:30 Temperature Pulse Rate 91 82 76 Respiratory Rate 23 H 23 H 17 Blood Pressure Pulse Oximetry 97 100 100 Oxygen Delivery 03/11/25 07:31 03/11/25 07:47 03/11/25 10:00 Temperature Pulse Rate 78 78 60 Respiratory Rate 19 12 Blood Pressure 139/72 138/84 Pulse Oximetry 100 100 Oxygen Delivery 03/11/25 11:23 03/11/25 12:00 03/11/25 12:00 Temperature 97.9 F Pulse Rate 71 77 Respiratory Rate 24 H Blood Pressure 146/76 H Pulse Oximetry 100 Oxygen Delivery Room Air Exam Narrative: APPEARANCE: No apparent distress. Pressured speech Head: atraumatic. EYES: EOMI, NOSE: Atraumatic NECK: Trachea midline RESPIRATORY: No increased rate of breathing, clear to auscultation CARDIOVASCULAR: RRR, no peripheral edema ABDOMINAL: Non-distended soft nontender MUSCULOSKELETAl: No obvious deformities NEURO: Alert. Moving 4/4 extremities SKIN:: Warm, dry. Normal color PSYCHIATRIC: Normal affect H&P: Results Labs Labs: Short CBC 03/11/25 Range/Units 01:26 WBC 7.9 (4.5-10.0) K/mm3 Hgb 11.7 L (12.0-15.0) g/dL Hct 36.3 L (37.0-47.0) % Plt Count 339 (150-375) k/mm3 [facility] 03/11/25 01:26 Sodium 138 Potassium 3.6 Chloride 105 Carbon Dioxide 27 BUN 11 Creatinine 0.86 Glucose 93 Calcium 9.3 Cardiac Enzymes 03/11/25 03/11/25 03/11/25 Range/Units 01:26 04:20 07:13 Troponin I 0.017 0.015 0.016 (0.000-0.034) ng/mL Liver Function 03/11/25 Range/Units 01:26 Total Bilirubin 0.4 (0.2-1.3) mg/dL AST 46 H (14-36) U/L ALT 32 (6-35) U/L Alkaline Phosphatase 77 (38-126) U/L Albumin 4.0 (3.5-5.1) g/dL Assessment and Plan Assessment and plan (1) Chest pain: Code(s): R07.9 - Chest pain, unspecified Status: Acute (2) Irritable bowel syndrome with constipation: Code(s): K58.1 - Irritable bowel syndrome with constipation Status: Acute (3) Protein malnutrition: Code(s): E46 - Unspecified protein-calorie malnutrition Status: Acute (4) History of colon resection: Code(s): Z90.49 - Acquired absence of other specified parts of digestive tract Status: Acute (5) Elevated blood pressure reading: Code(s): R03.0 - Elevated blood-pressure reading, without diagnosis of hypertension Status: Acute Plan Chest pain ECG neg troponin neg continue ASA, Lipitor will check lipid profile and TSH Will get Echo Telemonitoring consult cardiology team insomnia/anxiety Clonazepam HTN Coreg long nodule repeat CT in one year
[2025-03-11] MEDS: oxyCODONE/ACETAMINOPHEN (*CRX) 5-325 MG TABLET 1 TABLET PO ×3 (13:14→20:45)
--- NOTE | 2025-03-11 13:49 | PC.NURSE ---
Notified Dr Hackett about patients nausea and continued chest pain. PT states the morphine and nitro did not ever bring her chest pain down all the way and it was still always there. PT states she had a bout of nausea and vomitting from not eating.Dr Hackett gave order to change zofran to q4hr. PT states she eats constantly to keep up her weight and not eating has made her nauseous. Notified Dr Cherry of chest pain and nausea as well.
--- NOTE | 2025-03-11 15:38 | PC.NURSE ---
Spoke with Dr Cherry, received orders to let patient eat and due to patients current complpaints of CP to have tropnin checked now and in 6hours. order read back and verified.
[2025-03-11 16:44] LABS: Troponin I 0.013 ng/mL (0.000-0.034)
--- NOTE | 2025-03-11 17:18 | P.CONCA_ITS ---
Assessment and Plan Assessment and plan (1) Chest pain: Code(s): R07.9 - Chest pain, unspecified Status: Acute (2) CAD (coronary artery disease): Code(s): I25.10 - Atherosclerotic heart disease of [place] coronary artery without angina pectoris Status: Acute Plan Chest pain her-troponin negative x3; EKG shows sinus rhythm with PACs and prolonged QTC CAD with 40% stenosis of RCA on catheterization about a year ago Plan: Patient has atypical chest pain with negative troponin. ACS ruled out. Per patient she had a catheterization about a year ago at [facility] which showed nonobstructive CAD. Will obtain results of cardiac catheterization from outside hospital Continue Aspirin 81 mg p.o. daily Add Atorvastatin 40 mg daily TTE to evaluate LVEF and look for any regional wall motion abnormalities EKG p.r.n. for any chest pain P.r.n. sublingual nitroglycerin 0.4 mg Q 5 minutes X 3 for chest pain Monitor on telemetry Check and replace electrolytes to keep potassium greater than 4 and magnesium greater than 2 Management of other medical problems per primary team Will re-evaluate in a.m. History of Present Illness History of Present Illness Consult date/time: 03/11/25 17:18 Reason For Visit: Chest Pain Narrative: 59-year-old female with history of CAD (40% stenosis of RCA), multiple abdominal surgeries, kidney stones, presents with chief complaint of chest pain that started yesterday while at rest. She reports pressure/ache in her left chest with radiation to the back, left armpit and down her left arm. She states pain may increase with change in position but not with deep breaths. She lives very close to [facility] and drove herself to the ER as the pain did not resolve after some time. She states that nitro and Percocet have been helping her pain. Nitro is causing her headache. The chest pressure/pain comes off and on and is currently of intensity 4/10. She has not had similar pain prior to this. She is normally very active and exercises every day and takes walks. She has not had exertional chest pain prior. She had a cardiac catheterization about a year ago and she states that no stent was placed. No associated shortness of breath, diaphoresis. No dizziness, lightheadedness, palpitations, presyncope, syncope, orthopnea, PND, leg swelling, recent weight gain. She states that she has had multiple abdominal surgeries, she had 4 cardiac arrest in the past. She also states that she is having a lot of stress in her life recently. She smoked many years ago but does not smoke now. She drinks alcohol occasionally. She has family history of premature CAD. Her mom, dad, 2 brothers have had MIs in their 40s. There is also history of congestive heart failure in her family. Workup: TSH: 0.565 Troponin: Negative X 3 EKG: Sinus rhythm with PACs, prolonged QT interval with QTC of 496 CTA chest: No acute cardiopulmonary disease. No PE. Lingular nodule measuring 3 mm, likely benign. Nonobstructing left nephrolithiasis. Review of Systems 2 Review of Systems: A complete review of systems was performed and negative other than those mentioned HPI. [facility]LY [facility] Past Medical History Medical History Stenosis of right carotid artery 40% stenosis Lower abdominal pain History of histoplasmosis History of stroke [facility] Chronic pain Constipation Hypotension Bowel obstruction History of MRSA infection PONV (postoperative nausea and vomiting) Migraine Anxiety Endometriosis Osteoporosis Flank pain History of kidney stones Surgical History Surgical History History of pneumonectomy partial (left upper lobe) History of colostomy reversal History of colon resection History of hysterectomy History of abdominal surgery Family History Family History (Updated 03/11/25 @ 09:32 by Trini Briceno RN) Unknown No problems noted. Mother Diabetes mellitus Heart disease Hypertension Mother Enlarged heart Kidney failure Father Enlarged heart Heart disease Hypertension Sibling Breast cancer Sibling Malignant neoplasm of prostate Social History Social History Social History: Surrogate medical decision maker: Sarahy Fairchild, daughter. Code status: Full code. Smoking packs per day: 1.5 Smoking cigarettes per day: 30.0 Years smoked: 10 Smoking pack-years: 15.00 Smoking status: Former smoker Tobacco type: cigarettes and e-cigarettes/vaping Smoking end date: 09/16/11 Additional smoking assessment comments: Former smoker per chart. Belongings pt had 2 vapes. Pt intubated/sedated. Alcohol intake: current Drinks per week: 1 Alcohol use details: very rarely Substance use: never Substance use type: marijuana Other substance usage details: Vape THC on medical marijuana card. Last use: 10/02/2024 Do You Feel Safe in your Home?: Yes Lack of Transportation: No Lack of Food: Never True Current Housing: I Have Housing Concerned About Future Housing: No Difficulty Paying Gas/Electric Bills: No Difficulty Paying for Meds: No Currently Unemployed: No Education: Associate Degree Difficulty w/ Childcare or Family Care: No Living arrangements: alone Spiritual care concerns: No Meds Home Medications and Allergies Home Medications ?Medication ?Instructions ?Recorded ?Confirmed ?Type clonazepam 0.5 mg tablet (Klonopin) 0.5 mg PO TID 09/04/23 03/11/25 History cyclobenzaprine 10 mg tablet 10 mg PO TID PRN muscle pain 09/04/23 03/11/25 History aspirin 81 mg tablet,delayed 81 mg PO DAILY 09/16/24 03/11/25 History release (Adult Low Dose Aspirin) Allergies Allergy/AdvReac Type Severity Reaction Status Date / Time adhesive tape Allergy Rash Verified 03/11/25 09:26 venlafaxine (From Effexor) AdvReac Intermediate Other Verified 03/11/25 09:26 bupropion (From Wellbutrin) AdvReac ALTERED Verified 03/11/25 09:26 MENTAL STATUS codeine AdvReac Itching Verified 03/11/25 09:26 diphenhydramine (From AdvReac Jittery Verified 03/11/25 09:26 Benadryl) duloxetine (From Cymbalta) AdvReac ALTERED Verified 03/11/25 09:26 MENTAL STATUS gabapentin AdvReac Confusion Verified 03/11/25 09:26 sertraline (From Zoloft) AdvReac Confusion Verified 03/11/25 09:26 Vital Signs Vital Signs - 24 hr 03/11/25 01:20 03/11/25 01:34 03/11/25 01:45 Temperature 37.0 C Pulse Rate 103 H 91 79 Respiratory Rate 17 19 17 Blood Pressure 162/98 H Pulse Oximetry 100 100 100 Oxygen Delivery 03/11/25 01:46 03/11/25 02:06 03/11/25 02:13 Temperature Pulse Rate 88 91 Respiratory Rate 22 H 18 Blood Pressure 136/85 Pulse Oximetry 100 100 Oxygen Delivery Room Air 03/11/25 02:15 03/11/25 02:16 03/11/25 02:30 Temperature Pulse Rate 88 88 82 Respiratory Rate 27 H 16 24 H Blood Pressure 152/91 H Pulse Oximetry 100 100 100 Oxygen Delivery 03/11/25 02:31 03/11/25 02:41 03/11/25 02:45 Temperature Pulse Rate 83 67 66 Respiratory Rate 30 H 29 H 24 H Blood Pressure 148/69 H 157/51 H Pulse Oximetry 100 100 100 Oxygen Delivery 03/11/25 02:46 03/11/25 03:00 03/11/25 03:01 Temperature Pulse Rate 70 67 69 Respiratory Rate 23 H 16 16 Blood Pressure 134/68 123/67 Pulse Oximetry 100 100 100 Oxygen Delivery 03/11/25 03:15 03/11/25 03:16 03/11/25 03:30 Temperature Pulse Rate 71 66 65 Respiratory Rate 17 14 24 H Blood Pressure 124/62 Pulse Oximetry 99 100 98 Oxygen Delivery 03/11/25 03:31 03/11/25 03:45 03/11/25 03:46 Temperature Pulse Rate 60 53 L 64 Respiratory Rate 15 15 17 Blood Pressure 139/68 130/77 Pulse Oximetry 99 99 99 Oxygen Delivery 03/11/25 04:00 03/11/25 04:01 03/11/25 04:15 Temperature Pulse Rate 74 63 71 Respiratory Rate 17 13 20 Blood Pressure 134/65 Pulse Oximetry 96 99 Oxygen Delivery 03/11/25 04:18 03/11/25 04:19 03/11/25 04:30 Temperature Pulse Rate 76 74 62 Respiratory Rate 21 H 31 H 15 Blood Pressure 131/60 Pulse Oximetry 100 100 Oxygen Delivery 03/11/25 04:31 03/11/25 04:45 03/11/25 04:46 Temperature Pulse Rate 66 82 69 Respiratory Rate 13 25 H 24 H Blood Pressure 123/54 L 152/91 H Pulse Oximetry 99 98 100 Oxygen Delivery 03/11/25 05:00 03/11/25 05:01 03/11/25 05:02 Temperature Pulse Rate 61 64 66 Respiratory Rate 17 24 H 23 H Blood Pressure 137/71 Pulse Oximetry 100 100 Oxygen Delivery 03/11/25 05:15 03/11/25 05:16 03/11/25 05:30 Temperature Pulse Rate 92 85 75 Respiratory Rate 26 H 16 17 Blood Pressure 159/86 H Pulse Oximetry 100 98 99 Oxygen Delivery 03/11/25 05:31 03/11/25 05:45 03/11/25 06:00 Temperature Pulse Rate 70 76 87 Respiratory Rate 15 15 13 Blood Pressure 139/66 Pulse Oximetry 100 98 97 Oxygen Delivery 03/11/25 06:01 03/11/25 06:15 03/11/25 06:16 Temperature Pulse Rate 91 84 82 Respiratory Rate 13 14 13 Blood Pressure 144/73 H 137/74 Pulse Oximetry 99 98 99 Oxygen Delivery 03/11/25 06:30 03/11/25 06:45 03/11/25 06:46 Temperature Pulse Rate 78 82 78 Respiratory Rate 11 L 15 12 Blood Pressure 126/57 L Pulse Oximetry 98 97 99 Oxygen Delivery 03/11/25 07:00 03/11/25 07:18 03/11/25 07:30 Temperature Pulse Rate 91 82 76 Respiratory Rate 23 H 23 H 17 Blood Pressure Pulse Oximetry 97 100 100 Oxygen Delivery 03/11/25 07:31 03/11/25 07:47 03/11/25 09:40 Temperature Pulse Rate 78 78 Respiratory Rate 19 12 Blood Pressure 139/72 138/84 144/64 H Pulse Oximetry 100 100 Oxygen Delivery 03/11/25 10:00 03/11/25 11:23 03/11/25 12:00 Temperature 36.6 C Pulse Rate 60 71 Respiratory Rate 24 H Blood Pressure 146/76 H Pulse Oximetry 100 Oxygen Delivery Room Air 03/11/25 12:00 03/11/25 14:00 03/11/25 15:59 Temperature 36.6 C Pulse Rate 77 79 71 Respiratory Rate 24 H Blood Pressure 146/76 H Pulse Oximetry 100 Oxygen Delivery 03/11/25 16:00 03/11/25 16:00 Temperature Pulse Rate 64 Respiratory Rate Blood Pressure Pulse Oximetry Oxygen Delivery Room Air Exam 2 Narrative: General: Alert oriented x3, no acute distress Neck: Supple, no JVD Chest: Bilaterally clear to auscultation, no rales or rhonchi Cardiac: S1, S2 +, regular rate, regular rhythm, no murmurs or rubs Extremities: No pedal edema, no skin rash Neurologic: Alert and oriented x3, no focal neurological deficits Results Labs and Meds 03/11/25 01:26 03/11/25 01:26 Lab results: Cardiac Enzymes 03/11/25 03/11/25 03/11/25 Range/Units 01:26 04:20 07:13 AST 46 H (14-36) U/L Troponin I 0.017 0.015 0.016 (0.000-0.034) ng/mL 03/11/25 Range/Units 16:06 AST (14-36) U/L Troponin I 0.013 (0.000-0.034) ng/mL Coagulation 03/11/25 Range/Units 01:26 PT 13.9 (11.1-14.7) Seconds APTT 27.5 (22.3-36.8) Seconds Lipids 03/11/25 Range/Units 01:26 Triglycerides 113 (<150) mg/dL Cholesterol 209 H (0-200) mg/dL CBC 03/11/25 Range/Units 01:26 WBC 7.9 (4.5-10.0) K/mm3 RBC 4.00 L (4.2-5.4) M/mm3 Hgb 11.7 L (12.0-15.0) g/dL Hct 36.3 L (37.0-47.0) % Plt Count 339 (150-375) k/mm3 Lymph # (Auto) 2.45 (0.9-3.2) K/mm3 [place] # (Auto) 0.7 H (0.1-0.6) K/mm3 Eos # (Auto) 0.1 (0-0.3) K/mm3 Baso # (Auto) 0.0 (0.0-0.1) K/mm3 Comprehensive Metabolic Panel 03/11/25 Range/Units 01:26 Sodium 138 (137-145) mmol/L Potassium 3.6 (3.4-5.0) mmol/L Chloride 105 (98-107) mmol/L Carbon Dioxide 27 (22-30) mmol/L BUN 11 (7-17) mg/dL Creatinine 0.86 (0.7-1.0) mg/dL Glucose 93 (65-110) mg/dL Calcium 9.3 (8.4-10.2) mg/dL AST 46 H (14-36) U/L ALT 32 (6-35) U/L Alkaline Phosphatase 77 (38-126) U/L Total Protein 7.1 (6.3-8.2) g/dL Albumin 4.0 (3.5-5.1) g/dL Intake and Output 03/11/25 03/11/25 03/11/25 07:59 15:59 23:59 Intake Total 5 Balance 5 Intake: Oral 5 Patient Weight 03/11/25 23:59 Weight 47.8 kg
[2025-03-11] MEDS: CYCLOBENZAPRINE HCL 10 MG TABLET PO (20:46)
[2025-03-11 22:17] LABS: Troponin I 0.016 ng/mL (0.000-0.034)
--- NOTE | 2025-03-11 22:30 | ECG_ITS ---
Test Date: 2025-03-11 22:37:36 Measurements Intervals [place] Rate: 53 P: 58 CT: 151 QRS: 61 QRSD: 86 T: 79 QT: 478 QTc: 451 Interpretive Statements SINUS BRADYCARDIA POSSIBLE LEFT ATRIAL ENLARGEMENT POSSIBLE LEFT VENTRICULAR HYPERTROPHY MINIMAL Q WAVES- INFERIOR LEADS BORDERLINE ST-T WAVE ABNORMALITY- HIGH LATERAL LEADS BORDERLINE ECG Compared to ECG 03/11/2025 07:08:12 HEART RATE HAS DECREASED Prolonged QT interval no longer present Electronically Signed On 03-12-2025 06:29:50 CDT by Yakov Quintana D.O.
[2025-03-12] VITALS (17 sets, daily range): BP systolic 122–161; BP diastolic 53–88; PULSE 51–88; RESP 13–24; TEMP 36.6–36.9; O2SAT 97–100; BMI 18.1
--- NOTE | 2025-03-12 | ECHO_ITS ---
Patient Info Name: Madison Weinberg Age: 59 years : 1965 Gender: Female Ht: 64 in Wt: 105 lbs BSA: 1.46 m2 HR: 51 bpm BP: 125 / 53 mmHg Technical Quality: Good Exam Date: 03/12/2025 10:17 AM Patient Status: unknown Admit Date: 03/12/2025 Exam Type: CA echo dop color flow w con Complete two-dimensional, color flow and Doppler transthoracic echocardiogram is performed with contrast to opacify the left ventricle and to improve the deliniation of the left ventricle endocardial borders. Staff Referring Physician: Darian Giron Peer Specialist: Crystal Corey Attending Provider: Goldie Al Contrast/Agitated Saline Contrast/Ag. Saline: Definity Amount: 2.00 ml Administered By: Crystal Corey Summary 1. Left ventricular systolic function is normal, estimated at 55-60. 2. Right ventricular chamber dimension is normal. 3. Right ventricular systolic function is normal. 4. Left ventricular chamber dimension is normal. 5. There is mild mitral valve regurgitation. Left Ventricle Left ventricular chamber dimension is normal. Left ventricular systolic function is normal, estimated at 55-60. There is no increased left ventricular wall thickness. Left ventricular septal wall motion is normal. The left ventricular diastolic function is abnormal. Right Ventricle Right ventricular chamber dimension is normal. Right ventricular systolic function is normal. Left Atria Left atrial chamber dimension is normal. Right Atria Right atrial chamber dimension is normal. Aortic Valve The aortic valve is trileaflet. There is no aortic valve sclerosis. There is no aortic valve stenosis. There is no aortic valve regurgitation. Pulmonic Valve The pulmonic valve is not well visualized. There is no pulmonic valve stenosis. There is no pulmonic regurgitation. Mitral Valve There is no mitral valve stenosis. There is mild mitral valve regurgitation. Tricuspid Valve The tricuspid valve leaflets are normal. There is no significant tricuspid valve stenosis. There is no tricuspid valve regurgitation. Pericardium/Pleural The pericardium appears normal. There is no pericardial effusion. Inferior Vena Cava Normal inferior vena cava with >50% collapse upon inspiration consistent with normal right atrial pressure, 5 mmHg. Aorta The aortic root size at the sinus of Valsalva is normal. The prox ascending aorta size is normal. Left Ventricular Outflow Tract Name Value Normal LVOT 2D LVOT Diameter 1.8 cm LVOT Doppler LVOT Peak Velocity 118 cm/s LVOT Peak Gradient 6 mmHg LVOT Mean Gradient 3 mmHg LVOT VTI 27 cm LVOT VTI/AV VTI Ratio 0.7 LVOT Stroke Volume 73 ml LVOT CO 3.7 l/min LVOT CI 2.6 l/min/m2 Pulmonic Valve Name Value Normal RVOT Doppler RVOT Peak Velocity 84 cm/s RVOT Peak Gradient 3 mmHg PV Doppler PV Peak Velocity 99 cm/s PV Peak Gradient 4 mmHg Mitral Valve Name Value Normal MV Diastolic Function MV E Peak Velocity 91 cm/s MV A Peak Velocity 72 cm/s MV E/A 1.3 MV Decel Time (PW) 230 ms MV Annular TDI MV E/e' (Septal) 13.1 MV E/e' (Lateral) 10.3 MV E/e' (Average) 11.7 Tricuspid Valve Name Value Normal Estimated PAP/RSVP RA Pressure 5 mmHg <=5 Aortic Valve Name Value Normal AV Doppler AV Peak Velocity 178 cm/s AV Peak Gradient 13 mmHg AV Mean Gradient 7 mmHg AV VTI 41 cm AV Area (Cont Eq VTI) 1.8 cm2 >=3.0 AV Area (Cont Eq Chuck) 1.8 cm2 AV DI (Chuck) 0.66 AV Regurgitation 2D LVOT Area 2.7 cm2 Ventricles Name Value Normal LV Dimensions 2D/MM IVS Diastolic Thickness (2D) 1.1 cm 0.6-1.0 LVID Diastole (2D) 3.7 cm 3.8-5.2 LVIW Diastolic Thickness (2D) 0.9 cm 0.6-0.9 LVID Systole (2D) 2.7 cm 2.2-3.5 LVOT Diameter 1.8 cm LV Mass (2D Cubed) 117.05 g 67.00-162.00 LV Mass Index (2D Cubed) 80 g/m2 43-95 Relative Wall Thickness (2D) 0.52 <=0.42 LV Fractional Shortening/Ejection Fraction 2D/MM LV Fractional Shortening (2D) 27 % 27-45 LV EF (2D Teichholz) 54 % LV Diastolic Volume (4C MOD) 85 ml LV EF (4C MOD) 59 % LV Diastolic Volume (2C MOD) 79 ml LV EF (2C MOD) 58 % LV Diastolic Volume (BP MOD) 82 ml 46-106 LV Diastolic Volume Index (BP MOD) 56 ml/m2 29-61 LV Systolic Volume (BP MOD) 36 ml 14-42 LV Systolic Volume Index (BP MOD) 24 ml/m2 8-24 LV EF (BP MOD) 57 % 54-74 LV Diastolic Length (4C) 7.4 cm LV Systolic Length (4C) 6.0 cm LV Stroke Volume (4C MOD) 50 ml Atria Name Value Normal LA Dimensions LA Volume (4C A-L) 26 ml LA Volume (BP A-L) 30 ml RA Dimensions RA Systolic Major [place] Length (4C) 4.2 cm 2.2-2.8 RA Area (4C) 10.3 cm2 <=18.0 Report Signatures
[2025-03-12 04:24] LABS: Hematocrit 35.2 % (37.0-47.0); Hemoglobin 11.4 g/dL (12.0-15.0); Mean Corpuscular HGB Conc 32.4 g/dl (32-36); Mean Corpuscular Hemoglobin 29.5 pg (26-34); Mean Corpuscular Volume 91.0 fl (80-100); Platelet Count Result 328 k/mm3 (150-375); Red Blood Count 3.87 M/mm3 (4.2-5.4); White Blood Count 5.5 K/mm3 (4.5-10.0)
[2025-03-12 04:49] LABS: Anion Gap 4 mmol/L (4-12); Blood Urea Nitrogen 9 mg/dL (7-17); Calcium 8.7 mg/dL (8.4-10.2); Carbon Dioxide 26 mmol/L (22-30); Chloride 103 mmol/L (98-107); Estimated CRCL calculation 48 ml/min; Estimated Glomerular Filt Rate > 60; Glucose 97 mg/dL (65-110); Potassium 3.4 mmol/L (3.4-5.0); Sodium 133 mmol/L (137-145)
[2025-03-12] MEDS: oxyCODONE/ACETAMINOPHEN (*CRX) 5-325 MG TABLET 1 TABLET PO ×2 (08:06→16:53)
[2025-03-12] MEDS: ATORVASTATIN 40 MG TABLET 80 MG PO (08:06)
[2025-03-12] MEDS: ASPIRIN 81 MG ENTERIC TABLET PO (08:06)
[2025-03-12] MEDS: ENOXAPARIN 40 MG/0.4 ML SYRINGE SUB-Q (09:12)
[2025-03-12] MEDS: clonazePAM (*CRX) 0.5 MG TABLET PO ×3 (09:12→17:22)
[2025-03-12] MEDS: POTASSIUM CHLORIDE 20 MEQ PACKET (FOR LIQUID) 40 MEQ PO (09:12)
--- NOTE | 2025-03-12 10:04 | PM.PNCARD ---
Progress Note: A&P Assessment and Plan (1) Chest pain: Code(s): R07.9 - Chest pain, unspecified Status: Acute (2) CAD (coronary artery disease): Code(s): I25.10 - Atherosclerotic heart disease of [place] coronary artery without angina pectoris Status: Acute Plan Chest pain her-troponin negative x3; EKG shows sinus rhythm with PACs and prolonged QTC CAD with 40% stenosis of RCA on catheterization about a year ago Plan: Patient has chest pain with some atypical features, but some features that are concerning for myocardial ischemia. Negative troponin, ACS ruled out. Discussed with Dr. Cherry; will plan for coronary angiogram later this afternoon (patient was not held NPO, last ate around 0845). Further recommendations to follow Continue Aspirin 81 mg p.o. daily Add Atorvastatin 40 mg daily TTE to evaluate LVEF and look for any regional wall motion abnormalities EKG p.r.n. for any chest pain P.r.n. sublingual nitroglycerin 0.4 mg Q 5 minutes X 3 for chest pain Monitor on telemetry Check and replace electrolytes to keep potassium greater than 4 and magnesium greater than 2 Subjective Date/time seen: 03/12/25 10:04 Interval history: Cardiology follow up visit Continues to have chest pain this morning particularly with exertion. She also has exertional shortness of breath. Pain improved with nitro. Review of Systems Review of Systems: A complete review of systems was performed and negative other than those mentioned HPI. Exam Narrative: General: Alert oriented x3, no acute distress Neck: Supple, no JVD Chest: Bilaterally clear to auscultation, no rales or rhonchi Cardiac: S1, S2 +, regular rate, regular rhythm, no murmurs or rubs Extremities: No pedal edema, no skin rash Neurologic: Alert and oriented x3, no focal neurological deficits Objective Data Vital Signs Vital Signs: Vital Signs - 24 hr 03/11/25 11:23 03/11/25 12:00 03/11/25 12:00 Temperature 36.6 C Pulse Rate 71 77 Respiratory Rate 24 H Blood Pressure 146/76 H Pulse Oximetry 100 Oxygen Delivery Room Air 03/11/25 14:00 03/11/25 15:59 03/11/25 16:00 Temperature 36.6 C Pulse Rate 79 71 Respiratory Rate 24 H Blood Pressure 146/76 H Pulse Oximetry 100 Oxygen Delivery Room Air 03/11/25 16:00 03/11/25 18:00 03/11/25 19:40 Temperature Pulse Rate 64 92 91 Respiratory Rate 18 Blood Pressure Pulse Oximetry 100 Oxygen Delivery Room Air 03/11/25 19:41 03/11/25 20:00 03/11/25 20:45 Temperature 36.9 C Pulse Rate 91 74 70 Respiratory Rate 16 Blood Pressure 153/119 H Pulse Oximetry 100 Oxygen Delivery 03/11/25 22:00 03/11/25 23:31 03/11/25 23:35 Temperature Pulse Rate 77 59 L 59 L Respiratory Rate 16 Blood Pressure Pulse Oximetry 100 Oxygen Delivery Room Air 03/11/25 23:51 03/12/25 03:47 03/12/25 03:50 Temperature 37.0 C Pulse Rate 53 L 53 L 53 L Respiratory Rate 16 16 Blood Pressure 129/72 Pulse Oximetry 100 100 Oxygen Delivery Room Air 03/12/25 04:00 03/12/25 05:50 03/12/25 07:46 Temperature 36.9 C 36.7 C Pulse Rate 73 75 81 Respiratory Rate 16 24 H Blood Pressure 125/53 L 153/88 H Pulse Oximetry 100 100 Oxygen Delivery 03/12/25 08:00 03/12/25 08:00 03/12/25 08:06 Temperature Pulse Rate 83 84 Respiratory Rate Blood Pressure Pulse Oximetry Oxygen Delivery Room Air Intake/Output Intake/Output: Intake & Output 03/09/25 03/10/25 03/11/25 03/12/25 23:59 23:59 23:59 23:59 Intake Total 505 600 Balance 505 600 Meds/Results Medications: Active Medications Generic Name Dose Route Start Last Admin Trade Name Freq PRN Reason Stop Dose Admin Al Hydrox/Mg Hydrox/Simethicone 30 ml 03/11/25 08:31 Mag Hydrox/Al Hydrox/Simeth 30 Ml Udc PO Q6H PRN Indigestion Aspirin 81 mg 03/12/25 09:00 03/12/25 08:06 Aspirin 81 Mg Enteric Tablet PO 81 mg DAILY ELIU Administration Atorvastatin Calcium 80 mg 03/11/25 09:00 03/12/25 08:06 Atorvastatin 40 Mg Tablet PO 80 mg DAILY ELIU Administration Carvedilol 6.25 mg 03/11/25 21:00 03/12/25 08:06 Carvedilol 6.25 Mg Tablet PO 6.25 mg Q12HR ELIU Administration Clonazepam 0.5 mg 03/11/25 09:00 03/12/25 09:12 Clonazepam (*Crx) 0.5 Mg Tablet PO 0.5 mg TID ELIU Administration Cyclobenzaprine HCl 10 mg 03/11/25 08:30 03/11/25 20:46 Cyclobenzaprine Hcl 10 Mg Tablet PO 10 mg TID PRN Administration muscle pain Enoxaparin Sodium 40 mg 03/11/25 09:00 03/12/25 09:12 Enoxaparin 40 Mg/0.4 Ml Syringe SUB-Q 40 mg DAILY ELIU Administration Morphine Sulfate 2 mg 03/11/25 13:04 Morphine Sulfate (*Crx) 2 Mg/Ml Inj IV PUSH Q2H PRN Pain Rated 7-10 Nitroglycerin 0.4 mg 03/11/25 08:31 03/11/25 14:33 Nitroglycerin Sl 0.4 Mg Tablet SUBLINGUAL 0.4 mg Q5MIN PRN Administration Chest Pain Ondansetron HCl 4 mg 03/11/25 13:25 Ondansetron Inj 4 Mg/2 Ml Vial IV PUSH Q4HR PRN Nausea And Vomiting Oxycodone/Acetaminophen 1 tablet 03/11/25 13:01 03/12/25 08:06 Oxycodone/Acetaminophen (*Crx) 5-325 Mg Tablet PO 1 tablet Q4H PRN Administration Pain Rated 7-10 Perflutren Lipid Microsphere 0 ml 03/11/25 07:34 Perflutren Lipid Microspheres 1.5 Ml Vial Diluted To 10 Ml Total Volume IV PUSH 03/14/25 07:34 ONCE PRN adequate visualization Protocol Radiology Results: ITS Impressions Chest CTA 03/11/25 06:30 IMPRESSION: 1. No acute cardiopulmonary disease. No evidence for pulmonary embolism. 2: Lingular nodule measuring 3 mm, likely benign. Consider follow-up low dose CT chest in 12 months. 3: Nonobstructing left nephrolithiasis. Labs Labs: Laboratory Results - last 24 hr 03/11/25 03/11/25 03/11/25 01:26 16:06 21:41 WBC RBC Hgb Hct MCV MCH MCHC RDW Plt Count MPV Sodium Potassium Chloride Carbon Dioxide Anion Gap BUN Creatinine Estim Creat Clear Calc Estimated GFR Glucose Calcium Troponin I 0.013 0.016 D Triglycerides 113 Cholesterol 209 H LDL Cholesterol Direct 131 HDL Direct 55 03/12/25 03:36 WBC 5.5 RBC 3.87 L Hgb 11.4 L Hct 35.2 L MCV 91.0 MCH 29.5 MCHC 32.4 RDW 13.5 Plt Count 328 MPV 9.7 Sodium 133 L Potassium 3.4 Chloride 103 Carbon Dioxide 26 Anion Gap 4 BUN 9 Creatinine 0.84 Estim Creat Clear Calc 48 Estimated GFR > 60 Glucose 97 Calcium 8.7 Troponin I Triglycerides Cholesterol LDL Cholesterol Direct HDL Direct
[2025-03-12] MEDS: PERFLUTREN LIPID MICROSPHERES 1.5 ML VIAL DILUTED TO 10 ML TOTAL VOLUME IV PUSH (12:32)
--- NOTE | 2025-03-12 12:32 | IVDEFINITY ---
Prior to administration of IV Definity the patient was educated on the risks and benefits of the imaging enhancing agent including potential adverse side effects. The patient verbalized understanding. Allergies were verified. No exclusion criteria were identified and at least one of the following inclusion criteria were met: 1) physician request, 2) patient technically difficult to image (per the [place] [employer] guidelines of two or more segments not discernable within the apical view), or 3) questionable left ventricular function. ?
--- NOTE | 2025-03-12 13:12 | PM.IMPN ---
Progress Note: A&P Assessment and Plan (1) Chest pain: Code(s): R07.9 - Chest pain, unspecified Status: Acute (2) Irritable bowel syndrome with constipation: Code(s): K58.1 - Irritable bowel syndrome with constipation Status: Acute (3) Protein malnutrition: Code(s): E46 - Unspecified protein-calorie malnutrition Status: Acute (4) History of colon resection: Code(s): Z90.49 - Acquired absence of other specified parts of digestive tract Status: Acute (5) Elevated blood pressure reading: Code(s): R03.0 - Elevated blood-pressure reading, without diagnosis of hypertension Status: Acute Plan Chest pain ECG neg troponin neg continue ASA, Lipitor Echo pending Telemonitoring cardiology team on board insomnia/anxiety Clonazepam HTN Coreg long nodule repeat CT in one year Subjective Date/time seen: 03/12/25 13:12 Interval history: per HPI: Patient is 59 y F with history of SBO and several abd surgery , chronic pain using THC, R carotid stenosis family history of breast cancer, presented with Chest pain started 3 H before admission. she describe pain as severe on L side chest radiating to L arm and l sided neck. pain getting worse with palpation, activity and getting better with morphine and rest. denies SOb,abd pain, n/V. in the Er vital signs unremarkable excepet for Bp 162/98. lab test showed WBC 7.9 , Hb 11.7.Ct neg for PE. ECG neg for acute changes. Troponin neg. Echo was ordered. cardiology team was consulted. patient was admitted for further management. 03/12/25 Patient was seen examined at bedside. She is feeling better. Chest pain is better. Denies any shortness of breath, abdominal pain, nausea vomiting. Cardiology team on board. Plan for cardiac catheterization later today Exam Narrative: APPEARANCE: No apparent distress. Pressured speech Head: atraumatic. EYES: EOMI, NOSE: Atraumatic NECK: Trachea midline RESPIRATORY: No increased rate of breathing, clear to auscultation CARDIOVASCULAR: RRR, no peripheral edema ABDOMINAL: Non-distended soft nontender MUSCULOSKELETAl: No obvious deformities NEURO: Alert. Moving 4/4 extremities SKIN:: Warm, dry. Normal color PSYCHIATRIC: Normal affect Objective Data Vital Signs Vital Signs: Vital Signs - 24 hr 03/11/25 14:00 03/11/25 15:59 03/11/25 16:00 Temperature 97.9 F Pulse Rate 79 71 Respiratory Rate 24 H Blood Pressure 146/76 H Pulse Oximetry 100 Oxygen Delivery Room Air 03/11/25 16:00 03/11/25 18:00 03/11/25 19:40 Temperature Pulse Rate 64 92 91 Respiratory Rate 18 Blood Pressure Pulse Oximetry 100 Oxygen Delivery Room Air 03/11/25 19:41 03/11/25 20:00 03/11/25 20:45 Temperature 98.5 F Pulse Rate 91 74 70 Respiratory Rate 16 Blood Pressure 153/119 H Pulse Oximetry 100 Oxygen Delivery 03/11/25 22:00 03/11/25 23:31 03/11/25 23:35 Temperature Pulse Rate 77 59 L 59 L Respiratory Rate 16 Blood Pressure Pulse Oximetry 100 Oxygen Delivery Room Air 03/11/25 23:51 03/12/25 03:47 03/12/25 03:50 Temperature 98.6 F Pulse Rate 53 L 53 L 53 L Respiratory Rate 16 16 Blood Pressure 129/72 Pulse Oximetry 100 100 Oxygen Delivery Room Air 03/12/25 04:00 03/12/25 05:50 03/12/25 07:46 Temperature 98.5 F 98.1 F Pulse Rate 73 75 81 Respiratory Rate 16 24 H Blood Pressure 125/53 L 153/88 H Pulse Oximetry 100 100 Oxygen Delivery 03/12/25 08:00 03/12/25 08:00 03/12/25 08:06 Temperature Pulse Rate 83 84 Respiratory Rate Blood Pressure Pulse Oximetry Oxygen Delivery Room Air 03/12/25 10:00 03/12/25 11:49 03/12/25 12:00 Temperature 97.8 F Pulse Rate 55 L 75 Respiratory Rate 20 Blood Pressure 136/68 Pulse Oximetry 100 Oxygen Delivery Room Air 03/12/25 12:00 Temperature Pulse Rate 73 Respiratory Rate Blood Pressure Pulse Oximetry Oxygen Delivery Intake/Output Intake/Output: Intake & Output 03/09/25 03/10/25 03/11/25 03/12/25 23:59 23:59 23:59 23:59 Intake Total 505 840 Output Total 150 Balance 505 690 Meds/Results Medications: Active Medications Generic Name Dose Route Start Last Admin Trade Name Freq PRN Reason Stop Dose Admin Al Hydrox/Mg Hydrox/Simethicone 30 ml 03/11/25 08:31 Mag Hydrox/Al Hydrox/Simeth 30 Ml Udc PO Q6H PRN Indigestion Aspirin 81 mg 03/12/25 09:00 03/12/25 08:06 Aspirin 81 Mg Enteric Tablet PO 81 mg DAILY ELIU Administration Atorvastatin Calcium 80 mg 03/11/25 09:00 03/12/25 08:06 Atorvastatin 40 Mg Tablet PO 80 mg DAILY ELIU Administration Carvedilol 6.25 mg 03/11/25 21:00 03/12/25 08:06 Carvedilol 6.25 Mg Tablet PO 6.25 mg Q12HR ELIU Administration Clonazepam 0.5 mg 03/11/25 09:00 03/12/25 09:12 Clonazepam (*Crx) 0.5 Mg Tablet PO 0.5 mg TID ELIU Administration Cyclobenzaprine HCl 10 mg 03/11/25 08:30 03/11/25 20:46 Cyclobenzaprine Hcl 10 Mg Tablet PO 10 mg TID PRN Administration muscle pain Enoxaparin Sodium 40 mg 03/11/25 09:00 03/12/25 09:12 Enoxaparin 40 Mg/0.4 Ml Syringe SUB-Q 40 mg DAILY ELIU Administration Morphine Sulfate 2 mg 03/11/25 13:04 Morphine Sulfate (*Crx) 2 Mg/Ml Inj IV PUSH Q2H PRN Pain Rated 7-10 Nitroglycerin 0.4 mg 03/11/25 08:31 03/11/25 14:33 Nitroglycerin Sl 0.4 Mg Tablet SUBLINGUAL 0.4 mg Q5MIN PRN Administration Chest Pain Ondansetron HCl 4 mg 03/11/25 13:25 Ondansetron Inj 4 Mg/2 Ml Vial IV PUSH Q4HR PRN Nausea And Vomiting Oxycodone/Acetaminophen 1 tablet 03/11/25 13:01 03/12/25 08:06 Oxycodone/Acetaminophen (*Crx) 5-325 Mg Tablet PO 1 tablet Q4H PRN Administration Pain Rated 7-10 Radiology Results: ITS Impressions Chest CTA 03/11/25 06:30 IMPRESSION: 1. No acute cardiopulmonary disease. No evidence for pulmonary embolism. 2: Lingular nodule measuring 3 mm, likely benign. Consider follow-up low dose CT chest in 12 months. 3: Nonobstructing left nephrolithiasis. Labs Labs: Laboratory Results - last 24 hr 03/11/25 03/11/25 03/12/25 16:06 21:41 03:36 WBC 5.5 RBC 3.87 L Hgb 11.4 L Hct 35.2 L MCV 91.0 MCH 29.5 MCHC 32.4 RDW 13.5 Plt Count 328 MPV 9.7 Sodium 133 L Potassium 3.4 Chloride 103 Carbon Dioxide 26 Anion Gap 4 BUN 9 Creatinine 0.84 Estim Creat Clear Calc 48 Estimated GFR > 60 Glucose 97 Calcium 8.7 Troponin I 0.013 0.016 D
--- NOTE | 2025-03-12 15:16 | P.PCNCC_ITS ---
Cardiac Cath Procedure Note Date of procedure:: 03/12/25 Performing physician:: Naomi Cherry MD Indication:: CATHETERIZATION LABORATORY REPORT Procedure Date: 03/12/2025 Anesthesia: Versed and Fentanyl were ordered and given in my presence at 2:34 p.m., procedure ended at 3:01 p.m.. Supervision of nurse monitored moderate sedation with Versed and Fentanyl was provided for 27 minutes. Fentanyl: 200 mcg Versed: 2 mg Pre-op Diagnosis: Chest pain Post-op Diagnosis: Nonobstructive CAD with 40% stenosis in the mid LAD Procedure(s): Left heart catheterization with coronary angiography Access Site: Right common femoral artery Closure: 6 [place] Angio-Seal Brief History and Clinical Indications: All risks, benefits and alternatives to left heart catheterization with or without percutaneous coronary intervention was discussed at length with the patient. Risk of complications including but not limited to bleeding, infection, arrhythmia, stroke, worsening kidney function, blood loss, groin hematoma, limb loss, emergency coronary artery bypass grafting, and even were discussed with the patient and all questions were answered. The patient understood and wished to proceed. Time out called, patient name, date of , medical record number, allergies, procedure performed, identify District Manager [employer], patient and staff member concurred with accurate data, procedure carried on. Findings: LEFT HEART CATHETERIZATION FINDINGS: 1. Left main: The left main coronary artery is widely patent without any significant obstructive disease. 2. Left anterior descending: The mid LAD has 40% stenosis. The diagonal branches are without any significant obstructive angiographic disease. 3. Left circumflex: The left circumflex artery and the main marginal branches are without any significant obstructive angiographic disease. 4. Right coronary artery: The RCA is without any significant obstructive angiographic disease. The RCA is the dominant vessel. 5. Left ventricle: A. End-diastolic pressure could not be measured accurately as patient had significant ectopy. B. LV gram deferred. C. No significant gradient across aortic valve on catheter pullback. 6. Opening AO pressure 145/106/125 and closing AO pressure 125/82/90 9 mm Hg Description of Procedure: Informed consent signed and placed in the chart. Patient transferred to lab coordinator room. Prepped and draped in usual sterile fashion. 2% lidocaine in right groin area. Micropuncture needle used to access right common femoral artery with Seldinger technique under fluoroscopic guidance. J wire advanced, micropuncture cannula placed. Right iliofemoral angiogram performed, access confirmed and micropuncture cannula exchanged for 6-FR sheath. ? 5 [place] FR 3.5 diagnostic catheter engaged Left Main Coronary Artery. 5 [place] FR4 diagnostic catheter engaged Right Coronary Artery. Multiple orthogonal angiogram obtained and reviewed. 5 [place] FR4 diagnostic catheter crossed aortic valve to obtain LVEDP, LV angiogram deferred. Hemostasis was achieved by 6 [place] Angio-Seal. Assessment: Nonobstructive CAD with 40% stenosis of mid LAD Hypertension-poorly controlled Post Operative Condition: Stable No significant blood loss Disposition: Floor Plan: The patient will be monitored in the recovery area. Medical management of CAD. Continue aspirin 81 mg daily indefinitely. Continue statin and beta-eladio. Continue aggressive medical therapy and risk factor modification. IV fluids 0.9% normal saline at 100 mL/hour for 1 L. Check labs and renal function in a.m. Bedrest for 2 hours.
[2025-03-12] MEDS: SODIUM CHLORIDE 0.9% IV 1,000 ML 125 ML IV CONT (16:38)
--- NOTE | 2025-03-12 17:46 | P.DS_ITS ---
DS: Admitting Diagnosis Discharge Date 03/12/25 Admitting Diagnosis chest pain DS: Discharge Diagnosis Discharge Diagnosis (1) Chest pain: Code(s): R07.9 - Chest pain, unspecified Status: Acute (2) Irritable bowel syndrome with constipation: Code(s): K58.1 - Irritable bowel syndrome with constipation Status: Acute (3) Protein malnutrition: Code(s): E46 - Unspecified protein-calorie malnutrition Status: Acute (4) History of colon resection: Code(s): Z90.49 - Acquired absence of other specified parts of digestive tract Status: Acute (5) Elevated blood pressure reading: Code(s): R03.0 - Elevated blood-pressure reading, without diagnosis of hypertension Status: Acute Plan Chest pain ECG neg troponin neg continue ASA, Lipitor Echo unremarkable cardiac cath Nonobstructive CAD with 40% stenosis of mid LAD Hypertension-poorly controlled Telemonitoring cardiology team on board insomnia/anxiety Clonazepam HTN Coreg long nodule repeat CT in one year DS: Summary Hospital Course Hospital Course: per HPI: Patient is 59 y F with history of SBO and several abd surgery , chronic pain using THC, R carotid stenosis family history of breast cancer, presented with Chest pain started 3 H before admission. she describe pain as severe on L side chest radiating to L arm and l sided neck. pain getting worse with palpation, activity and getting better with morphine and rest. denies SOb,abd pain, n/V. in the Er vital signs unremarkable excepet for Bp 162/98. lab test showed WBC 7.9 , Hb 11.7.Ct neg for PE. ECG neg for acute changes. Troponin neg. Echo was ordered. cardiology team was consulted. patient was admitted for further managem ent. 03/12/25 Patient was seen and examined at bedside. she is feeling better. chest pain improving. underwent cardiac Cath:Nonobstructive CAD with 40% stenosis of mid LAD Hypertension-poorly controlled. cardiology team recs medical management. Status at Discharge Overall status at discharge: patient is back to baseline Time Spent with Patient Time attestation: Total time spent providing and/or coordinating discharge services: Time spent: Greater than 30 minutes Exam Narrative: APPEARANCE: No apparent distress. Pressured speech Head: atraumatic. EYES: EOMI, NOSE: Atraumatic NECK: Trachea midline RESPIRATORY: No increased rate of breathing, clear to auscultation CARDIOVASCULAR: RRR, no peripheral edema ABDOMINAL: Non-distended soft nontender MUSCULOSKELETAl: No obvious deformities NEURO: Alert. Moving 4/4 extremities SKIN:: Warm, dry. Normal color PSYCHIATRIC: Normal affect DS: Data Data Completed and Pending Labs on day of discharge: Labs from last 24 hours 03/12/25 03/11/25 03:36 21:41 WBC 5.5 RBC 3.87 L Hgb 11.4 L Hct 35.2 L MCV 91.0 MCH 29.5 MCHC 32.4 RDW 13.5 Plt Count 328 MPV 9.7 Sodium 133 L Potassium 3.4 Chloride 103 Carbon Dioxide 26 Anion Gap 4 BUN 9 Creatinine 0.84 Estim Creat Clear Calc 48 Estimated GFR > 60 Glucose 97 Calcium 8.7 Troponin I 0.016 D Discharge Plan Discharge Attending physician on discharge: Earl Hackett Consulting providers: Luis Pitt; Naomi Cherry; Dawit Wang; Yakov Quintana; Omkar Sosa; Enid Sosa; Kenneth Shaw Discharging Clinician: Earl Hackett Anticipated Discharge Date/Time: 03/12/25 17:41 Patient Disposition: Home Activity: no driving Diet: heart healthy Wound Care Instructions: keep dressing dry Discharge Instructions: Continue Aspirin 81 mg p.o. daily Add Atorvastatin 40 mg daily follow with cardiology clinic as outpatient follow with repeat blood test in 1-2 days. Patient Instructions: Antibiotic Form, Atorvastatin (By mouth), Carvedilol (By mouth), Chest Pain (DC), Heart Catheterization (DC), Angio-Seal (DC) Patient Language: Vietnamese Stand Alone Forms: General Discharge Information Follow-up/Referrals: Fernando Chavez MD [Primary Care Provider] - 1 Week Naomi Cherry MD [Physician] - Call for Appointment Discharge Medications: New atorvastatin 40 mg Tablet 80 mg PO DAILY Qty: 30 0RF carvedilol [Coreg] 6.25 mg Tablet 6.25 mg PO Q12HR Qty: 60 0RF Continued cyclobenzaprine 10 mg tablet 10 mg PO TID PRN (Reason: muscle pain) clonazepam [Klonopin] 0.5 mg tablet 0.5 mg PO TID aspirin [Adult Low Dose Aspirin] 81 mg tablet,delayed release (DR/EC) 81 mg PO DAILY Other Ambulatory Orders: Basic Metabolic Panel (Routine) Timeframe: 1 Day Location: Determined by Patient Ordered By: Earl Hackett Complete Blood Count no Diff (Routine) Timeframe: 1 Day Location: Determined by Patient Ordered By: Earl Hackett Date of admission: 03/12/25 13:16 Primary Care Provider: Fernando Chavez Admitting Provider: Goldie Al Attending physician on admission: Earl Hackett Condition: Stable
--- NOTE | 2025-03-12 17:49 | PC.NURSE ---
Spoke with Dr Cherry after cardiac cath, unavailable to come to patient bedside. PT under the impression she would be discharging. Dr Cherry is ok with discharge. Notified Dr Hackett who states he isn't comfortable with patient driving after having sedation and right groin cath site. PT crying and upset that she is not being discharged after cardiac cath. Shoving her table in her room. PT states that she will leave AMA if not discharged. PT states she will call a cab to take her home. Notified Dr Hackett who states this is ok, will review her chart and place discharge order since she is not driving.
--- NOTE | 2025-03-12 18:26 | PC.NURSE ---
This RN reviewed discharge instructions, orders, and medication information. PT verbalized understanding. Paperwork signed. PT states I am just taking the taxi to my car in the parking lot. PT reminded of Dr order to not drive on day of discharge. PT asked if pain medication orders were included on discharge and they were not. PT states I will just buy them off the street. RN informed the patient that that may not be safe. PT pulled out her phone to make a call, states Jamari, I am going to need those pain pills. PT brought to hospital main entrance via wheelchair and left in taxi.
--- NOTE | 2025-04-07 14:34 | P.SEDATION_ITS ---
Moderate Sedation Note-Pt Data Patient Data Diagnosis: Date of service: 03/12/2025 Procedure to be performed/Plan: Left heart catheterization and possible percutaneous coronary intervention Allergies Allergy/AdvReac Type Severity Reaction Status Date / Time adhesive tape Allergy Rash Verified 03/11/25 09:26 venlafaxine (From Effexor) AdvReac Intermediate Other Verified 03/11/25 09:26 bupropion (From Wellbutrin) AdvReac ALTERED Verified 03/11/25 09:26 MENTAL STATUS codeine AdvReac Itching Verified 03/11/25 09:26 diphenhydramine (From AdvReac Jittery Verified 03/11/25 09:26 Benadryl) duloxetine (From Cymbalta) AdvReac ALTERED Verified 03/11/25 09:26 MENTAL STATUS gabapentin AdvReac Confusion Verified 03/11/25 09:26 sertraline (From Zoloft) AdvReac Confusion Verified 03/11/25 09:26 Home Medications ?Medication ?Instructions ?Recorded ?Confirmed ?Type clonazepam 0.5 mg tablet (Klonopin) 0.5 mg PO TID 08/1303/11/25 History cyclobenzaprine 10 mg tablet 10 mg PO TID PRN muscle p ain 09/04/23 03/11/25 History aspirin 81 mg tablet,delayed 81 mg PO DAILY 09/16/24 0 03/11/25 History release (Adult Low Dose Aspirin) atorvastatin 40 mg tablet 80 mg (2 x 40 mg) PO DAILY # 30 tabs 03/12/25 Rx carvedilol 6.25 mg tablet (Coreg) 6.25 mg PO Q12HR #60 tabs 03/12/25 Rx Sedation/Anesthesia: No previous sedation/anesthesia problems (including family history). [facility] Past Medical History Medical History Stenosis of right carotid artery 40% stenosis Lower abdominal pain History of histoplasmosis History of stroke [facility] Chronic pain Constipation Hypotension Bowel obstruction History of MRSA infection PONV (postoperative nausea and vomiting) Migraine Anxiety Endometriosis Osteoporosis Flank pain History of kidney stones Surgical History Surgical History History of pneumonectomy partial (left upper lobe) History of colostomy reversal History of colon resection History of hysterectomy History of abdominal surgery Family History Family History (Updated 03/11/25 @ 09:32 by Trini Briceno RN) Unknown No problems noted. Mother Diabetes mellitus Heart disease Hypertension Mother Enlarged heart Kidney failure Father Enlarged heart Heart disease Hypertension Sibling Breast cancer Sibling Malignant neoplasm of prostate Social History Social History Social History: Surrogate medical decision maker: Sarahy Fairchild, daughter. Code status: Full code. Smoking packs per day: 1.5 Smoking cigarettes per day: 30.0 Years smoked: 10 Smoking pack-years: 15.00 Smoking status: Former smoker Tobacco type: cigarettes and e-cigarettes/vaping Smoking end date: 09/16/11 Additional smoking assessment comments: Former smoker per chart. Belongings pt had 2 vapes. Pt intubated/sedated. Alcohol intake: current Drinks per week: 1 Alcohol use details: very rarely Substance use: never Substance use type: marijuana Other substance usage details: Vape THC on medical marijuana card. Last use: 10/02/2024 Do You Feel Safe in your Home?: Yes Lack of Transportation: No Lack of Food: Never True Current Housing: I Have Housing Concerned About Future Housing: No Difficulty Paying Gas/Electric Bills: No Difficulty Paying for Meds: No Currently Unemployed: No Education: Associate Degree Difficulty w/ Childcare or Family Care: No Living arrangements: alone Spiritual care concerns: No Mod Sed Physical Exam Physical Exam Pre Procedural Exam: Normal: Lungs, Heart Rate and Heart Rhythm Hours since solid foods: 12 Hours since liquid intake: 12 Mallampati Classification: class II Internal Medicine - PN: Obj Da Meds/Results Radiology Results: ITS Impressions Chest CTA 03/11/25 06:30 IMPRESSION: 1. No acute cardiopulmonary disease. No evidence for pulmonary embolism. 2: Lingular nodule measuring 3 mm, likely benign. Consider follow-up low dose CT chest in 12 months. 3: Nonobstructing left nephrolithiasis. Labs 03/12/25 03:36 03/12/25 03:36 ASA Classification/Sedation ASA Classification/Sedation ASA Class: II Emergent: No Risks: Risks, benefits and alternatives explained and patient/family accepted plan for sedation. Patient re-evaluated immediately prior to sedation.
--- NOTE | 2025-04-07 14:36 | WPDHPUPDATE1 ---
History and Physical Update Update Date/Time: 04/07/25 14:36 Tin eo service: 03/12/2025. History and Physical has been reviewed, including an updated exam of the patient. There are NO changes in the patient's condition. Risks, benefits, and alternatives have been discussed and questions answered. Patient agrees to proceed with procedure.
== END 2025-03-12 18:25 | disposition home or self-care (01) | DRG 287 ==
LOC: ANHED 05:05 → ANHIMU 08:32
PROVIDERS: Internal Medicine Interventional Cardiology; Admitting Provider General Practice; Emergency Provider Emergency Medicine; PCP Family Medicine; Visit Provider Internal Medicine
PROC: 4A023N7 Measurement of Cardiac Sampling and Pressure, Left Heart, Percutaneous Approach (ICD-10-PCS; CPT 93452; principal; 2025-03-12 14:30)
PROC: 4A023N7 Measurement of Cardiac Sampling and Pressure, Left Heart, Percutaneous Approach (ICD-10-PCS; 2025-03-12 14:30)
DX: I25.10 Atherosclerotic heart disease of native coronary artery without angina pectoris (principal); E46 Unspecified protein-calorie malnutrition; I10 Essential (primary) hypertension; I65.21 Occlusion and stenosis of right carotid artery; K58.1 Irritable bowel syndrome with constipation; M81.0 Age-related osteoporosis without current pathological fracture; G89.29 Other chronic pain; F41.9 Anxiety disorder, unspecified; Z86.718 Personal history of other venous thrombosis and embolism; Z86.711 Personal history of pulmonary embolism; Z79.82 Long term (current) use of aspirin; Z87.442 Personal history of urinary calculi; Z86.73 Personal history of transient ischemic attack (TIA), and cerebral infarction without residual deficits; Z87.891 Personal history of nicotine dependence
CPT/HCPCS: 36415; 71275; 80048; 80053; 80061; 80307; 82077; 84443; 84484; 85025; 85027; 85610; 85730; 93005; 93458; 96372; 96374; 96375; 96376; 99285; A9270; C1760; C1769; C1887; C1894; C8929; G0269; G0378; J1644; J1650; J2003; J2250; J2270; J2305; J3010; J7030; J7040; Q9957; Q9967